=== PATIENT | male | born 1955 | race Caucasian/White ===

== ENCOUNTER 2023-02-06 13:25 | Outpatient (CLI) | payer MEDICARE, SELFPAY ==
[2023-02-06 10:05] LABS: Abs Immature Grans 0.01 10^3/uL (0.0-0.06); Absolute Basophil Count 0.09 10^3/uL (0.0-0.2); Absolute Eosinophil Count 0.47 10^3/uL (0.0-0.7); Absolute Lymphocyte Count 1.53 10^3/uL (1.2-3.4); Absolute Monocyte Count 0.66 10^3/uL (0.1-0.8); Absolute Neutrophil Count 3.76 10^3/uL (1.2-6.7); Basophils % 1.4; Eosinophils % 7.2; HCT 34.2 % (40.0-50.0); HGB 11.4 g/dL (13.5-17.5); Immature Grans % 0.2; Lymphocytes % 23.5; MCH 29.9 pg (27.0-33.0); MCHC 33.3 % (32.0-36.0); MCV 90 fL (80-95); MPV 8.7 fL (8.0-11.0); Monocytes % 10.1; Neutrophils % 57.6; Platelet Count 330 10^3/uL (130-400); RBC 3.81 10^6/uL (4.36-5.78); RDW 13.2 % (11.8-14.1); RDW-SD 43.5 fL; WBC 6.52 10^3/uL (4.4-10.8)
[2023-02-06 10:20] LABS: ALT 17 U/L (16-63); AST 15 U/L (15-37); Albumin 3.1 g/dL (3.4-5.0); Alkaline Phosphatase 73 U/L (46-116); Anion Gap 7.2 mmol/L (3-11); BUN 40 mg/dL (7-18); Bilirubin, Total 0.4 mg/dL (0.2-1.0); CO2 27.8 mmol/L (21.0-32.0); CREATININE 1.8 mg/dL (0.70-1.30); Calcium 9.4 mg/dL (8.5-10.1); Chloride 101 mmol/L (98-107); Estimated GFR 40.49 (mL/min/1.73m2); Glucose 195 mg/dL (74-106); Potassium 3.8 mmol/L (3.5-5.1); Sodium 136 mmol/L (136-145); Total Protein 7.9 g/dL (6.4-8.2)
--- OUTSIDE RECORDS SUMMARY | 2023-02-06 13:28 | XMS_ITS | Continuity of Care Document ---
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 Role Phone NICOLASA FERRELL Primary Care Physician Encounter LTTL_NE FIN NBR [phone] Date(s): 12/20/22 - 12/22/22 [facility] [address] [place] [address]- [place] Encounter Diagnosis Congestive heart failure(Discharge Diagnosis) - 12/20/22 CKD (chronic kidney disease)(Discharge Diagnosis) - 12/20/22 Diabetes(Discharge Diagnosis) - 12/20/22 Adenocarcinoma of prostate(Discharge Diagnosis) - 12/20/22 Urinary tract infection(Discharge Diagnosis) - 12/21/22 Nausea and vomiting(Discharge Diagnosis) - 12/20/22 NSTEMI (non-ST elevated myocardial infarction)(Discharge Diagnosis) - 12/20/22 Discharge Disposition: Home f/u External Provider Attending Physician: Carrie Javier APRN Admitting Physician: Raoul Hernández MD Allergies, Adverse Reactions, Alerts Substance Reaction Severity Status amoxicillin 1 Rash Moderate Active penicillins 2 Unknown Active 1rash as adult 2had allergic reaction to amox as adult. told not to take PCN Assessment and Plan Extracted from: Title:Clinical Document Author:Catrachito Philip MD Date:12/20/22 Patient originally seen by Arianna Morgan. Repeat troponin comes back within increased elevation and significant delta. CT angio comes back negative for pulmonary embolism or other acute abnormality. I discussed the case with [facility] cardiology who recommended heparin and medical management at this time. I spoke with Dr. Hernández and patient was admitted. Patient remains chest pain-free hemodynamically stable with the exception that while sleeping he does sometimes desaturates. Future Appointments Future Scheduled Tests Radiology* US Lower Ext Venous Duplex Right 09/08/22 * CT Abdomen and Pelvis w/ + w/o Contrast 09/26/22 * CT Abdomen and Pelvis w/o Contrast 09/28/22 Functional Status 12/22/22 Home Equipment Blood glucose monito r, Cane 12/22/22 Activity Status ADL Up to chair 12/22/22 Living Environment Living Situation: Current Home Treatments: Home Devices/Equipment Blood glucose monitor, Cane Professional Skilled Services: Special Services and Community Resources: Sensory Deficits: Performed by: Shanell Anderson-12/21/22 12:18:00 Living Situation: Other: disposition unsure until after repeat echo Current Home Treatments: Home Devices/Equipment Professional Skilled Services: Special Services and Community Resources: Sensory Deficits: Performed by: Brenda Becker-12/20/22 14:25:00 Lives In Apartment Lives With Alone Living Situation Home independently Home Barriers None 12/22/22 Personal Care Provided Other: pt indepen dent with Am care. pt set up 12/21/22 Breakfast Percent 25 12/20/22 Family Member Travel History No recent t ravel Recent Travel History No recent travel Other exposure to Infectious Disease Non e Medications abiraterone 500 mg oral tablet 1,000 mg = 2 tab, Oral, Daily, on an empty stomach 1 hour before or 2 hours after eating, # 60 tab,0 Refill(s) Start Date: 11/29/22 Status: Ordered acetaminophen 500 mg oral tablet 1,000 mg = 2 tab, Oral, TID, PRN as needed for pain, 0 Refill(s) Start Date: 12/20/22 Status: Ordered atorvastatin 40 mg oral tablet 40 mg = 1 tab, Oral, Daily, # 30 tab, 0 Refill(s) Start Date: 10/05/22 Status: Ordered Bactrim DS 800 mg-160 mg oral tablet 1 tab, Oral, BID, # 10 tab, 0 Refill(s), Pharmacy: [facility], 177.8, cm, 12/20/22 14:46:00 EDT, Height/Length Dosing, 85.1, kg, 12/20/22 14:46:00 EDT, Weight Dosing Start Date: 12/22/22 Stop Date: 12/27/22 Status: Ordered HYDROcodone-acetaminophen 5 mg-325 mg oral tablet 1 tab, Oral, every 8 hr, PRN as needed for pain, 0 Refill(s) Start Date: 12/20/22 Status: Ordered Lantus Solostar Pen 100 units/mL subcutaneous solution 10 units =, Subcutaneous, Daily, 0 Refill(s) Start Date: 12/29/21 Status: Ordered leuprolide 22.5 mg/3 months intramuscular kit 22.5 mg =, IM, every 3 mo, # 1 kits, 0 Refill(s) Start Date: 12/08/22 Status: Ordered levothyroxine 175 mcg (0.175 mg) oral tablet 175 mcg = 1 tab, Oral, Daily, # 30 tab, 0 Refill(s) Start Date: 12/20/22 Status: Ordered Macular Health Formula oral capsule 2 cap, Oral, Daily, # 60 cap, 0 Refill(s) Start Date: 12/20/22 Status: Ordered MiraLax oral powder for reconstitution 17 g, Oral, BID, PRN constipation, # 527 g, 0 Refill(s), Pharmacy: [facility], 177.8, cm, 12/20/22 14:46:00 EDT, Height/Length Dosing, 85.1, kg, 12/20/22 14:46:00 EDT, Weight Dosing Start Date: 12/22/22 Stop Date: 01/05/23 Status: Ordered predniSONE 5 mg oral delayed release tablet 5 mg = 1 tab, Oral, Daily, # 30 tab, 0 Refill(s) Start Date: 11/29/22 Status: Ordered Vitamin D3 1000 intl units oral tablet 25 mcg = 1 tab, Oral, Daily, # 30 tab, 0 Refill(s) Start Date: 10/05/22 Status: Ordered Mental Status 12/21/22 Eye Opening Response Dayami Spontaneous ly Best Verbal Response Dayami Oriented Best Motor Response [place] Obeys comman ds [place] Coma Score 15 Problem List Condition Confirmation Course Effective Dates Status Health Status Informant Adenocarcinoma of prostate Confirmed Active Adenoma of colon Confirmed Active CKD (chronic kidney disease) Confirmed Active Congestive heart failure Confirmed Active Diabetes Confirmed Active Gout Confirmed Active Hypercholesterolemia Confirmed Active High blood pressure Confirmed Active Procedures Procedure Date Related Diagnosis Body Site Status Stent placement 09/28/22 Completed Results Laboratory List Name Date Glucose POCT 12/22/22 Glucose POCT 12/22/22 Automated Diff 12/22/22 Glucose POCT 12/22/22 Basic Metabolic Panel (BMP) 12/22/22 CBC w/ Diff 12/22/22 Automated Diff 12/21/22 Basic Metabolic Panel (BMP) 12/21/22 CBC w/ Diff 12/21/22 Troponin-I High Sensitivity 12/20/22 Urinalysis Microscopic 12/20/22 Urinalysis with Micro if Indicated and C ulture if Indicated 12/20/22 Respiratory Panel 2.1 (BioFire) 12/20/22 Troponin-I High Sensitivity (High Sensit ivityTroponin-I) 12/20/22 CBC w/ Diff 12/20/22 Comprehensive Metabolic Panel (CMP) 12/04 09/25 Lactic Acid 12/20/22 Lipase Level 12/20/22 Magnesium Level 12/20/22 PT/ INR 12/20/22 PTT 12/20/22 Troponin-I High Sensitivity (High Sensit ivityTroponin-I) 12/20/22 Automated Diff 12/20/22 SARS-CoV-2 (Covid-19) AG (Nati) POCT Most recent to oldest [Reference Range]: 1 2 3 WBC [4.8-10.8 K/mcL] 7.2 K/mcL (12/22/22 6:29 AM) 6.2 K/mcL (12/21/22 4:30 AM) 8.4 K/mcL (12/20/22 8:24 AM) RBC [4.70-6.10 Million/mcL] 3.10 Million /mcL *LOW* (12/22/22 6:29 AM) RBC [4.20-6.10 Million/mcL] 3.07 Million /mcL *LOW* (12/21/22 4:30 AM) 3.60 Million/mcL *LOW* (12/20/22 8:24 AM) Neutro Auto [42.2-75.2 %] 69.5 % (12/22/22 6:29 AM) 65.8 % (12/21/22 4:30 AM) 78.7 % *HI* (12/20/22 8:24 AM) Lymph Auto [20.5-51.1 %] 14.5 % *LOW* (12/22/22 6:29 AM) 14.5 % *LOW* (12/21/22 4:30 AM) 7.9 % *LOW* (12/20/22 8:24 AM) [place] Auto [1.7-9.3 %] 14.1 % *HI* (12/22/22 6:29 AM) 18.0 % *HI* (12/21/22 4:30 AM) 12.6 % *HI* (12/20/22 8:24 AM) Basophil Auto [0.0-0.8 %] 0.4 % (12/22/22 6:29 AM) 0.7 % (12/21/22 4:30 AM) 0.2 % (12/20/22 8:24 AM) Prothrombin Time [9.1-10.6 seconds] 12.3 seconds *HI* (12/20/22 8:24 AM) INR [0.9-1.1] 1.2 1 *HI* (12/20/22 8:24 AM) BUN [8-26 mg/dL] 36 mg/dL *HI* (12/22/22 6:29 AM) 36 mg/dL *HI* (12/21/22 4:30 AM) 40 mg/dL *HI* (12/20/22 8:24 AM) Glucose POC 194 *NA* (12/22/22 1:43 PM) 137 *NA* (12/22/22 9:11 AM) 137 *NA* (12/22/22 7:19 AM) UA Color [Yellow] Yellow (12/20/22 12:06 PM) UA WBC [0-3] 10-25 *ABN* (12/20/22 12:06 PM) Glucose Level [74-106 mg/dL] 145 mg/dL *HI* (12/22/22 6:29 AM) 133 mg/dL *HI* (12/21/22 4:30 AM) 167 mg/dL *HI* (12/20/22 8:24 AM) Potassium Level [3.5-5.1 mmol/L] 3.5 mmol/L (12/22/22 6:29 AM) 3.6 mmol/L (12/21/22 4:30 AM) 3.7 mmol/L (12/20/22 8:24 AM) Baso Absolute [0.0-0.2 K/mcL] 0.0 K/mcL (12/22/22 6:29 AM) 0.0 K/mcL (12/21/22 4:30 AM) 0.0 K/mcL (12/20/22 8:24 AM) MCV [80.0-94.0 fL] 89.4 fL (12/22/22 6:29 AM) 91.9 fL (12/21/22 4:30 AM) 89.4 fL (12/20/22 8:24 AM) UA Urobilinogen [0.2] 0.2 (12/20/22 12:06 PM) UA Bili [Negative] Negative (12/20/22 12:06 PM) UA Ketones [Negative] Negative (12/20/22 12:06 PM) AST [15-41 IntlUnit/L] 29 IntlUnit/L (12/20/22 8:24 AM) ALT [17-63 IntlUnit/L] 14 IntlUnit/L *LOW* (12/20/22 8:24 AM) MCHC [32.0-37.0 g/dL] 32.9 g/dL (12/22/22 6:29 AM) MCHC [32.0-36.0 g/dL] 32.6 g/dL (12/21/22 4:30 AM) 33.2 g/dL (12/20/22 8:24 AM) Osmolality [275-295 mOsm/kg] 275 mOsm/kg (12/22/22 6:29 AM) 278 mOsm/kg (12/21/22 4:30 AM) 276 mOsm/kg (12/20/22 8:24 AM) Sodium Level [134-143 mmol/L] 132 mmol/L *LOW* (12/22/22 6:29 AM) 134 mmol/L (12/21/22 4:30 AM) 131 mmol/L *LOW* (12/20/22 8:24 AM) UA RBC [0-3] 4-6 *ABN* (12/20/22 12:06 PM) UA Leuk Est [Negative] Small *ABN* (12/20/22 12:06 PM) Lymph Absolute [1.2-3.4 K/mcL] 1.0 K/mcL *LOW* (12/22/22 6:29 AM) 0.9 K/mcL *LOW* (12/21/22 4:30 AM) 0.7 K/mcL *LOW* (12/20/22 8:24 AM) UA Nitrite [Negative] Positive *ABN* (12/20/22 12:06 PM) UA Glucose [Negative] Negative (12/20/22 12:06 PM) Hct [42.0-52.0 %] 27.7 % *LOW* (12/22/22 6:29 AM) 28.2 % *LOW* (12/21/22 4:30 AM) 32.2 % *LOW* (12/20/22 8:24 AM) UA Bacteria [None Seen] 1+ *ABN* (12/20/22 12:06 PM) Lipase Level [18-51 unit/L] 37 unit/L 2 (12/20/22 8:24 AM) Partial Thromboplastin Time [21.3-28.4 seconds] 28.2 seconds (12/20/22 8:24 AM) Calcium Level [8.9-10.3 mg/dL] 7.9 mg/dL *LOW* (12/22/22 6:29 AM) 8.0 mg/dL *LOW* (12/21/22 4:30 AM) 8.7 mg/dL *LOW* (12/20/22 8:24 AM) [place] Absolute [0.1-0.6 K/mcL] 1.0 K/mcL *HI* (12/22/22 6:29 AM) 1.1 K/mcL *HI* (12/21/22 4:30 AM) 1.1 K/mcL *HI* (12/20/22 8:24 AM) Albumin Level [3.5-5.0 g/dL] 3.1 g/dL *LOW* (12/20/22 8:24 AM) Protein Total [6.5-8.1 g/dL] 7.5 g/dL (12/20/22 8:24 AM) UA Protein [Negative] 30 *ABN* (12/20/22 12:06 PM) MCH [27.0-31.0 pg] 29.4 pg (12/22/22 6:29 AM) 30.0 pg (12/21/22 4:30 AM) 29.7 pg (12/20/22 8:24 AM) Magnesium Level [1.8-2.5 mg/dL] 1.9 mg/dL (12/20/22 8:24 AM) Neutro Absolute [1.4-6.5 K/mcL] 5.0 K/mcL (12/22/22 6:29 AM) 4.0 K/mcL (12/21/22 4:30 AM) 6.6 K/mcL *HI* (12/20/22 8:24 AM) Bilirubin Total [0.2-1.2 mg/dL] 1.1 mg/dL (12/20/22 8:24 AM) Hgb [14.0-18.0 g/dL] 9.1 g/dL *LOW* (12/22/22:29 AM) 9.2 g/dL *LOW* (12/21/22:30 AM) 10.7 g/dL *LOW* (12/20/22 8:24 AM) Alk Phos [38-130 IntlUnit/L] 57 IntlUnit /L (12/20/22 8:24 AM) UA Blood [Negative] Moderate *ABN* (12/20/22 12:06 PM) MPV [7.4-10.4 fL] 9.7 fL (12/22/22 6:29 AM) 9.9 fL (12/21/22 4:30 AM) 10.1 fL (12/20/22 8:24 AM) UA Spec Grav [1.001-1.030] <=1.005 *NA* (12/20/22 12:06 PM) Platelets [130-400 K/mcL] 204 K/mcL (12/22/22 6:29 AM) 197 K/mcL (12/21/22 4:30 AM) 252 K/mcL (12/20/22 8:24 AM) CO2 [22-32 mmol/L] 21 mmol/L *LOW* (12/22/22:29 AM) 23 mmol/L (12/21/22 4:30 AM) 22 mmol/L (12/20/22 8:24 AM) Eos Absolute [0.0-0.2 K/mcL] 0.1 K/mcL (12/22/22 6:29 AM) 0.0 K/mcL (12/21/22 4:30 AM) 0.0 K/mcL (12/20/22 8:24 AM) Lactic Acid Lvl [0.5-2.2 mmol/L] 1.5 mmol/L (12/20/22 8:24 AM) UA Squam Epithelial [0-3] 0-3 (12/20/22 12:06 PM) UA pH [5.00-9.00] 6.00 (12/20/22 12:06 PM) UA Appear [Clear] Clear (12/20/22 12:06 PM) Chloride Level [98-111 mmol/L] 103 mmol/L (12/22/22 6:29 AM) 105 mmol/L (12/21/22 4:30 AM) 98 mmol/L (12/20/22 8:24 AM) RDW-CV [11.5-14.5 %] 15.2 % *HI* (12/22/22 6:29 AM) 15.4 % *HI* (12/21/22 4:30 AM) 14.9 % *HI* (12/20/22 8:24 AM) Adenovirus RespP-BFire [Not Detected] Not Detected (12/20/22 11:09 AM) Bordetella parapertussis RespP-BFire [Not Detected] Not Detected (12/20/22 11:09 AM) Bordetella pertussis RespP-BFire [Not Detected] Not Detected (12/20/22 11:09 AM) Chlamydophila pneumoniae RespP-BFire [Not Detected] Not Detected (12/20/22 11:09 AM) Coronavirus 229E (Not COVID-19) RP-BFire [Not Detected] Not Detected (12/20/22 11:09 AM) Coronavirus HKU1 (Not COVID-19) RP-BFire [Not Detected] Not Detected (12/20/22 11:09 AM) Coronavirus NL63 (Not COVID-19) RP-BFire [Not Detected] Not Detected (12/20/22 11:09 AM) Coronavirus OC43 (Not COVID-19) RP-BFire [Not Detected] Not Detected (12/20/22 11:09 AM) Human Metapneumonovirus RespP-BFire [Not Detected] Not Detected (12/20/22 11:09 AM) Human Rhinovirus/Enterovirus RespP-BFir [Not Detected] Not Detected (12/20/22 11:09 AM) Influenza A RespP-BFire [Not Detected] Not Detected (12/20/22 11:09 AM) Influenza B RespP-BFire [Not Detected] Not Detected (12/20/22 11:09 AM) Mycomplasma pneumoniae RespP-BFire [Not Detected] Not Detected (12/20/22 11:09 AM) Parainfluenza Virus 1 RespP-BFire [Not Detected] Not Detected (12/20/22 11:09 AM) Parainfluenza Virus 2 RespP-BFire [Not Detected] Not Detected (12/20/22 11:09 AM) Parainfluenza Virus 3 RespP-BFire [Not Detected] Not Detected (12/20/22 11:09 AM) Parainfluenza Virus 4 RespP-BFire [Not Detected] Not Detected (12/20/22 11:09 AM) Respiratory Syncytial Virus RespP-BFire [Not Detected] Not Detected (12/20/22 11:09 AM) A/G Ratio [1.0-2.5 g/dL] 0.7 g/dL *LOW* (12/20/22 8:24 AM) BUN/Creat Ratio [8.0-20.0] 19.9 (12/22/22 6:29 AM) 17.2 (12/21/22 4:30 AM) 20.5 *HI* (12/20/22 8:24 AM) Globulin [2.3-3.5 g/dL] 4.4 g/dL *HI* (12/20/22 8:24 AM) Imm Gran Absolute [0.00-0.02 K/mcL] 0.03 K/mcL *HI* (12/22/22 6:29 AM) 0.02 K/mcL (12/21/22 4:30 AM) 0.03 K/mcL *HI* (12/20/22 8:24 AM) Imm Gran Auto [0.0-0.5 %] 0.4 % (12/22/22 6:29 AM) 0.3 % (12/21/22 4:30 AM) 0.4 % (12/20/22 8:24 AM) Slide Review Not Indicated (12/22/22 6:29 AM) Not Indicated (12/20/22 8:24 AM) UA Culture Ind?. [No] Yes (12/20/22 12:06 PM) Urine Srce Clean Catch (12/20/22 12:06 PM) Creatinine Level [0.61-1.24 mg/dL] 1.81 mg/dL *HI* (12/22/22 6:29 AM) 2.09 mg/dL *HI* (12/21/22 4:30 AM) 1.95 mg/dL *HI* (12/20/22 8:24 AM) SARS-CoV-2 (COVID-19) RP-BFire [Not Detected] Not Detected (12/20/22 11:09 AM) SARS-CoV or CoV-2 (COVID-19) Ag (Nati) [Negative] Negative (12/20/22 6:57 AM) Employed in healthcare? No *NA* (12/20/22 11:09 AM) Unknown *NA* (12/20/22 6:57 AM) Symptomatic as defined by CDC? No *NA* (12/20/22 11:09 AM) Unknown *NA* (12/20/22 6:57 AM) Date of onset (Lab) Unknown *NA* (12/20/22 6:57 AM) Hospitalized due to COVID-19? No *NA* (12/20/22 11:09 AM) Unknown *NA* (12/20/22 6:57 AM) In ICU? No *NA* (12/20/22 11:09 AM) Unknown *NA* (12/20/22 6:57 AM) Group care resident? No *NA* (12/20/22 11:09 AM) Unknown *NA* (12/20/22 6:57 AM) status? Not *NA* (12/20/22 11:09 AM) Unknown *NA* (12/20/22 6:57 AM) Troponin-I HS [<=20 ng/L] 149 ng/L 3, 4 *CRIT* (12/20/22 2:50 PM) 159 ng/L 5, 6 *CRIT* (12/20/22 9:53 AM) 141 ng/L 7, 8 *CRIT* (12/20/22 8:24 AM) Anion Gap [3.0-12.0] 8.0 (12/22/22 6:29 AM) 6.0 (12/21/22 4:30 AM) 11.0 (12/20/22 8:24 AM) Eos, Auto [0.00-3.00 %] 1.10 % (12/22/22 6:29 AM) 0.70 % (12/21/22 4:30 AM) 0.20 % (12/20/22 8:24 AM) eGFR CKD-EPI [>=60 mL/min/1.73 m2] 40 mL/min/1.73 m2 *LOW* (12/22/22 6:29 AM) 34 mL/min/1.73 m2 *LOW* (12/21/22 4:30 AM) 37 mL/min/1.73 m2 *LOW* (12/20/22 8:24 AM) 1Interpretive Data: THERAPEUTIC INR RANGES FOR WARFARIN Uncomplicated venous thromboembolic disease 2-3 Lupus Anticoagulant and recurrent thrombosis 3-3.5 Mechanical prosthetic valve or recurrent thrombosis 2.5-3.5 2Interpretive Data: F-cbxpkh-n-benzoquinone imine (meabolite of Acetaminophen) will generate erroneously low lipase results in samples for patients that have taken toxic doses of acetaminophen. 3Result Comment: Called and read back by Nemo Hodge at 12/20/2022 15:25:48 EDT 4Interpretive Data: The Axel ACCESS high-sensitivity Troponin I (hsTNI) 99 percentile cutoffs forhealthy adults are 12 ng/L or less for females and 20 ng/L or less for males. SERIAL MEASUREMENT IS HIGHLY RECOMMENDED for the diagnosis or exclusion of Acute Coronary Syndromes(ACS). Please refer to the High-Sensitivity Troponin Algorithm 2022 for guidance. As with all markers of cardiac injury, elevations of hsTnI do not in and of themselves indicate thepresence of an ischemic mechanism. Many other disease states can be associated with elevations via mechanisms different from those that cause injury in patients with ACS. These include trauma (contusion, ablation, pacing); congestive heart failure; pulmonary embolism; kidney failure; and myocarditis. Clinical judgement is necessary to distinguish patients who have ischemic heart disease from those who do not. 5Result Comment: Called mabel white rn read back by [facility] at 12/20/2022 11:06:03 EDT Results verified by repeat analysis. 6Interpretive Data: The Axel ACCESS high-sensitivity Troponin I (hsTNI) 99 percentile cutoffs forhealthy adults are 12 ng/L or less for females and 20 ng/L or less for males. SERIAL MEASUREMENT IS HIGHLY RECOMMENDED for the diagnosis or exclusion of Acute Coronary Syndromes(ACS). Please refer to the High-Sensitivity Troponin Algorithm 2022 for guidance. As with all markers of cardiac injury, elevations of hsTnI do not in and of themselves indicate thepresence of an ischemic mechanism. Many other disease states can be associated with elevations via mechanisms different from those that cause injury in patients with ACS. These include trauma (contusion, ablation, pacing); congestive heart failure; pulmonary embolism; kidney failure; and myocarditis. Clinical judgement is necessary to distinguish patients who have ischemic heart disease from those who do not. 7Result Comment: Called & read back by Emilie Harkins RN at 12/20/2022 09:29:41 EDT Results verified by repeat analysis. 8Interpretive Data: The Axel ACCESS high-sensitivity Troponin I (hsTNI) 99 percentile cutoffs forhealthy adults are 12 ng/L or less for females and 20 ng/L or less for males. SERIAL MEASUREMENT IS HIGHLY RECOMMENDED for the diagnosis or exclusion of Acute Coronary Syndromes(ACS). Please refer to the High-Sensitivity Troponin Algorithm 2022 for guidance. As with all markers of cardiac injury, elevations of hsTnI do not in and of themselves indicate thepresence of an ischemic mechanism. Many other disease states can be associated with elevations via mechanisms different from those that cause injury in patients with ACS. These include trauma (contusion, ablation, pacing); congestive heart failure; pulmonary embolism; kidney failure; and myocarditis. Clinical judgement is necessary to distinguish patients who have ischemic heart disease from those who do not. Orders for Microbiology Reports Name Date Urine Culture 12/20/22 Microbiology Reports TEST:Urine Culture STATUS:Auth (Verified) BODY SITE: SOURCE:Urine, Clean Catch COLLECTED DATE/TIME:12/20/22 12:06 PM FINAL REPORT >100,000 cfu/ml Staphylococcus epidermidis ORGANISM:Staphylococcus epidermidis Susceptibilty: Staphylococcus epidermidis Tested Drug JUAN A Dilution JUAN A Interpretati on Vancomycin 1 S Trimethoprim/Sulfa <=10 S Oxacillin >=4 R Nitrofurantoin <=16 S Linezolid 1 S Doxycycline 1 S Radiology Reports * Exam Date Time Procedure Performing Provider Status 12/20/22 10:[address] Angio Chest Mahi Barnes; Matt ( Verified) Notes: (CT Angio Chest) Reason For Exam: sob, +trop, hx ca; ?pe CT Angio Chest EXAM DESCRIPTION: CT Angio Chest 12/20/2022 INDICATION: SOB, +TROP, HX CA; ?PE TECHNIQUE: All CT scans at this facility use at least one of these dose optimization techniques: Automated exposure control; mA and/or kV adjustment per patient size (includes targeted exams where dose is matched to clinical indication); or iterative reconstruction. CT angiography examination of the chest with thin section axial images including sagittal and coronal MPR images performed on a separate workstation under concurrent supervision. 65 mL of Isovue 370 contrast was utilized COMPARISON: None FINDINGS: Normal opacification of the right ventricular outflow tract, main pulmonary arteries and segmental pulmonary arteries with no evidence of pulmonary embolism. No evidence of thoracic aortic dissection. Patchy areas of ground-glass attenuation infiltrate involving both lower lobes as well as the posterior aspect of both upper lobes of uncertain chronicity. Findings may reflect chronic interstitial lung disease although interstitial pneumonitis can not be excluded. No focal consolidation or pulmonary mass. No central endobronchial filling defect identified. Mild bilateral pleural effusions. No pneumothorax. Mildly prominent mediastinal lymph nodes in the right para-aortic region, prevascular space and subcarinal regions measuring up to 10 mm in short axis dimension. Mild bilateral hilar adenopathy. No axillary adenopathy. No pericardial effusion. Normal caliber thoracic aorta. Scattered sclerotic lesions in the visualized spinal axis suspicious for metastatic disease. IMPRESSION: No evidence of pulmonary embolism Patchy nonspecific areas of ground-glass attenuation infiltrate bilaterally most pronounced in the lower lobe distribution of uncertain chronicity. Findings may reflect chronic interstitial lung disease or interstitial pneumonitis Mild bilateral pleural effusions Mediastinal and bilateral hilar adenopathy as detailed above. Small sclerotic lesions in the visualized spinal axis suspicious for metastatic disease. JOB #: [id number] Final Signed by: Jose Angel Shin MD Signed (Electronic Signature): 12/20/2022 10:58 am * Exam Date Time Procedure Performing Provider Status 12/20/22 9:16 AM XR Chest 2 Views Kasia Castro; Auth ( Verified) Notes: (XR Chest 2 Views) Reason For Exam: hypoxia XR Chest 2 Views EXAM DESCRIPTION: XR Chest 2 Views 12/20/2022 INDICATION: HYPOXIA COMPARISON: None FINDINGS: Clear lungs with no focal infiltrate or pulmonary edema. Normal cardiomediastinal contour. Normal pleural margins with no pleural effusion or pneumothorax. Mild spondylotic changes of the dorsal spine. IMPRESSION: No active chest disease. JOB #: [id number] Final Signed by: Jose Angel Shin MD Signed (Electronic Signature): 12/20/2022 9:36 am * Exam Date Time Procedure Performing Provider Status 12/20/22 8:[address] Abdomen and Pelvi s w/o Contrast Miguel A Varghese; Matt (Verified) Notes: (CT Abdomen and Pelvis w/o Contrast) Reason For Exam: abd pain, n/v, hx prostate ca; ? stent obstruction CT Abdomen and Pelvis w/o Contrast EXAM DESCRIPTION: CT Abdomen and Pelvis w/o Contrast 12/20/2022 INDICATION: ABD PAIN, N/V, HX PROSTATE CA; ? STENT OBSTRUCTION TECHNIQUE: All CT scans at this facility use at least one of these dose optimization techniques: Automated exposure control; mA and/or kV adjustment per patient size (includes targeted exams where dose is matched to clinical indication); or iterative reconstruction. Technique: Axial CT images of the abdomen/pelvis without IV contrast administration COMPARISON: 10/05/2022 FINDINGS: Visualized portions of the liver, spleen, pancreas and adrenal glands demonstrate a normal unenhanced CT appearance. No calcified gallstones in the gallbladder. Bilateral ureteral stents in stable satisfactory position. Mild bilateral hydronephrosis without significant change. No renal calculi on either side. Scattered low-attenuation renal lesions bilaterally likely reflecting cysts which were seen previously. Normal caliber abdominal aorta. Retroperitoneal adenopathy in the left para-aortic and paracaval regions which appears improved. Adenopathy in the left iliac chain region surrounding portions of the left ureteral stent, slightly improved. The prostate gland is mildly enlarged with indentation of the bladder base. No bowel dilatation to suggest obstruction or ileus. No ascites or free intraperitoneal air. Normal appendix. Mild subsegmental atelectasis or scarring in both lung bases. Sclerotic lesions involving the pelvis, sacrum and visualized spinal axis suspicious for metastatic disease IMPRESSION: Bilateral ureteral stents in stable satisfactory position. Mild bilateral hydronephrosis without significant change. Nonobstructive bowel pattern. No free air or bowel inflammatory changes. Normal appendix Retroperitoneal adenopathy as described above, slightly improved since prior study. Scattered sclerotic osseous lesions suspicious for metastatic disease, many of which appear new since prior study. Additional nonacute findings as detailed above. JOB #: [id number] Final Signed by: Jose Angel Shin MD Signed (Electronic Signature): 12/20/2022 9:16 am Vital Signs Most recent to oldest [Reference Range]: 1 2 3 Temperature Oral [35.8-37.3 Deg C] 37.0 Deg C (12/22/22 7:05 AM) 37.6 Deg C *HI* (12/22/22 2:37 AM) 37.2 Deg C (12/22/22 12:26 AM) Temperature Tympanic [36.6-37.9 Deg C] 37.0 Deg C (12/20/22 7:31 AM) Temperature Temporal Artery [36-38 Deg C] 36.4 Deg C (12/22/22 11:04 AM) 36.9 Deg C (12/21/22 7:33 PM) 36.7 Deg C (12/21/22 4:09 PM) Temperature Temporal Artery (DegF) [97.3-100 Deg F] 98.78 Deg F (12/21/22 10:30 AM) Peripheral Pulse Rate [60-100 bpm] 61 bpm (12/22/22 11:04 AM) 67 bpm (12/22/22 7:05 AM) 70 bpm (12/22/22 2:37 AM) Heart Rate Monitored [60-100 bpm] 72 bpm (12/21/22 1:00 AM) 77 bpm (12/21/22 12:00 AM) 87 bpm (12/20/22 11:00 PM) Respiratory Rate [12-24 br/min] 18 br/min (12/22/22 11:04 AM) 16 br/min (12/22/22 7:05 AM) 18 br/min (12/22/22 2:37 AM) Blood Pressure [90-140/60-90 mmHg] 118/67mmHg (12/22/22 11:04 AM) 124/72mmHg (12/22/22 7:05 AM) 135/78mmHg (12/22/22 2:37 AM) Mean Arterial Pressure, Cuff [65-140 mmHg] 99 mmHg (12/21/22 10:30 AM) 66 mmHg (12/21/22 1:00 AM) 72 mmHg (12/21/22 12:00 AM) Mean Arterial Pressure Cuff 64 mmHg (12/21/22 1:00 AM) 69 mmHg (12/21/22 12:00 AM) 87 mmHg (12/20/22 8:00 PM) Blood Pressure Location Right arm (12/22/22 2:37 AM) Right arm (12/22/22 12:26 AM) Right arm (12/21/22 12:00 AM) Blood Pressure Method Automatic (12/22/22 2:37 AM) Automatic (12/22/22 12:26 AM) Automatic (12/21/22 7:33 PM) Weight 85.100 kg (12/22/22 3:23 PM) 85.100 kg (12/20/22 2:45 PM) 85.100 kg (12/20/22 2:25 PM) Weight Dosing 85.100 kg (12/22/22 3:23 PM) 85.100 kg (12/20/22 2:45 PM) 85.100 kg (12/20/22 2:25 PM) Height 177.800 cm (12/22/22 3:23 PM) 177.800 cm (12/20/22 2:45 PM) 177.800 cm (12/20/22 2:25 PM) Height/Length Dosing 177.800 cm (12/22/22 3:23 PM) 177.800 cm (12/20/22 2:45 PM) 177.800 cm (12/20/22 2:25 PM) Body Mass Index 26.920 kg/m2 (12/22/22 3:23 PM) 26.920 kg/m2 (12/20/22 2:45 PM) 26.920 kg/m2 (12/20/22 2:25 PM) Social History Social History Type Response Tobacco Never tobacco user T obacco Use:. Sex Hospital Discharge Instructions Patient Education 12/22/2022 11:58:20 Nausea and Vomiting, Adult Nausea and Vomiting, Adult Nausea is the feeling that you have an upset stomach or that you are about to vomit. As nausea getsworse, it can lead to vomiting. Vomiting is when stomach contents forcefully come out of your mouthas a result of nausea. Vomiting can make you feel weak and cause you to become dehydrated. Dehydration can make you feel tired and thirsty, cause you to have a dry mouth, and decrease how often you urinate. Older adults and people with other diseases or a weak disease-fighting system (immune system) are at higher risk for dehydration. It is important to treat your nausea and vomiting as told by your health care provider. Follow these instructions at home: Watch your symptoms for any changes. Tell your health care provider about them. Eating and drinking ??? Take an oral rehydration solution (ORS). This is a drink that is sold at pharmacies and retail stores. ??? Drink clear fluids slowly and in small amounts as you are able. Clear fluids include water, icechips, low-calorie sports drinks, and fruit juice that has water added (diluted fruit juice). ??? Eat bland, rcdl-su-kqmutr foods in small amounts as you are able. These foods include bananas, applesauce, rice, lean meats, toast, and crackers. ??? Avoid fluids that contain a lot of sugar or caffeine, such as energy drinks, sports drinks, andsoda. ??? Avoid alcohol. ??? Avoid spicy or fatty foods. General instructions ??? Take poui-dah-rwdcwhv and prescription medicines only as told by your health care provider. ??? Drink enough fluid to keep your urine pale yellow. ??? Wash your hands often using soap and water for at least 20 seconds. If soap and water are not available, use hand nut steamer. ??? Make sure that everyone in your household washes their hands well and often. ??? Rest at home while you recover. ??? Watch your condition for any changes. ??? Take slow and deep breaths when you feel nauseous. ??? Keep all follow-up visits. This is important. Contact a health care provider if: ??? Your symptoms get worse. ??? You have new symptoms. ??? You have a fever. ??? You cannot drink fluids without vomiting. ??? Your nausea does not go away after 2 days. ??? You feel light-headed or dizzy. ??? You have a headache. ??? You have muscle cramps. ??? You have a rash. ??? You have pain while urinating. Get help right away if: ??? You have pain in your chest, neck, arm, or jaw. ??? You feel extremely weak or you faint. ??? You have persistent vomiting. ??? You have vomit that is bright red or looks like black coffee grounds. ??? You have bloody or black stools (feces) or stools that look like tar. ??? You have a severe headache, a stiff neck, or both. ??? You have severe pain, cramping, or bloating in your abdomen. ??? You have difficulty breathing, or you are breathing very quickly. ??? Your heart is beating very quickly. ??? Your skin feels cold and clammy. ??? You feel confused. ??? You have signs of dehydration, such as: ??? Dark urine, very little urine, or no urine. ??? Cracked lips. ??? Dry mouth. ??? Sunken eyes. ??? Sleepiness. ??? Weakness. These symptoms may be an emergency. Get help right away. Call 911. ??? Do not wait to see if the symptoms will go away. ??? Do not drive yourself to the hospital. Summary ??? Nausea is the feeling that you have an upset stomach or that you are about to vomit. As nausea gets worse, it can lead to vomiting. Vomiting can make you feel weak and cause you to become dehydrated. ??? Follow instructions from your health care provider about eating and drinking to prevent dehydration. ??? Take grnb-rlk-grwxxno and prescription medicines only as told by your health care provider. ??? Contact your health care provider if your symptoms get worse, or you have new symptoms. ??? Keep all follow-up visits. This is important. This information is not intended to replace advice given to you by your health care provider. Make sure you discuss any questions you have with your health care provider. Document Revised: 08/27/2021 Document Reviewed: 08/27/2021 Elsevier Patient Education ?? 2022 [employer] Follow Up Care 12/20/2022 07:30:58 With:NICOLASA FERRELL Address: [address] [place], [place] [id number]- When:1 month Comments:Follow up with Nicolasa MOLINA at [facility] on Monday, January 23, 2023 @ 8 a.m. Please plan to arrive by 7:45 a.m. Pharmacology Note * Shailesh Park: PERFORM Event Display: Pharmacy Note Authored Date: [id number] med hx via SS review, review of pts meds, and pt interview. pt appears good hx. no longer taking lisinopril, allopurinol, or metformin.. pt was having urination issues so started taking an older script for flomax , but has found no relief so will not be continuing. Discharge instructions * Brisa Floyd: PERFORM Event Display: Discharge Instructions Authored Date: [id number] ROSARIO MOSHER :1955 Age:67 years Sex:Male Visit Date:12/20/2022 Primary Care Physician: NICOLASA FERRELL Hospital Discharge Instructions We would like to thank you for allowing us to assist you with your healthcare needs. The following includes patient education materials and information regarding your injury/illness. Your Next Steps Scheduled Future Appointments Monday 12:00 PM EDT ?? Follow Up Appointments Follow Up with??NICOLASA FERRELL When:??Within 1 month Why: Follow up with Nicolasa MOLINA at [facility] on Monday, January 23, 2023 @ 8 a.m. Please plan to arrive by 7:45 a.m. [address]: [address] [place] [address] Medications What How Much When Why Instructions Next Dose New polyethylene glycol 3350 (MiraLax oral powder forreconstitution) 17 Gram Oral (given by mouth) 2 times a day as needed for constipation Duration: 14 Days Pickup at [facility] New sulfamethoxazole-trimethoprim (Bactrim DS 800 mg-160 mg oral tablet) 1 tab Oral (given by mouth) 2 times a day Nausea and vomiting NSTEMI (non-ST elevated myocardial infarction) Urinary tract infection Congestive heart failure CKD (chronic kidney disease) Diabetes Adenocarcinoma of prostate Duration: 5 Days Pickup at [facility] Unchanged abiraterone (abiraterone 500 mg oral tablet) 2 tab Oral (given by mouth) Every day on an empty stomach 1 hour before or 2 hours after eating ?? Unchanged acetaminophen (acetaminophen 500 mg oral tablet) 2 tab Oral (given by mouth) 3 times a day as needed for as needed for pain Unchanged atorvastatin (atorvastatin 40 mg oral tablet) 1 tab Oral (given by mouth) Every day Unchanged cholecalciferol (Vitamin D3 1000 intl units oral tablet) 1 tab Oral (given by mouth) Every day Unchanged HYDROcodone-acetaminophen (HYDROcodone-acetaminophen 5 mg-325 mg oral tablet) 1 tab Oral (given by mouth) Every 8 hours as needed for as needed for pain Unchanged insulin glargine (Lantus Solostar Pen 100 units/ mL subcutaneous solution) 10 Units Subcutaneous (under the skin) Every day Unchanged leuprolide (leuprolide 22.5 mg/ 3 months intramuscular kit) 22.5 Milligrams Intramuscular (in a muscle) Every 3 months Unchanged levothyroxine (levothyroxine 175 mcg (0.175 mg) oral tablet) 1 tab Oral (given by mouth) Every day Unchanged multivitamin with minerals (Macular Health Formula oral capsule) 2 Capsules Oral (given by mouth) Every day Unchanged predniSONE (predniSONE 5 mg oral delayed release tablet) 1 tab Oral (given by mouth) Every day Pharmacy Information [facility]: [address] [place] [address] [phone] Your Summary Your Care Team Admitting Physician - Raoul Hernández MD Attending Physician - Carrie Javier APRN Primary Care Physician - NICOLASA FERRELL Your Diagnosis Nausea and vomiting NSTEMI (non-ST elevated myocardial infarction) Urinary tract infection Congestive heart failure CKD (chronic kidney disease) Diabetes Adenocarcinoma of prostate Problems Ongoing - Any problem that you are currently receiving treatment for. Adenocarcinoma of prostate Adenoma of colon CKD (chronic kidney disease) Congestive heart failure Diabetes Gout High blood pressure Hypercholesterolemia Tests Performed/Pending Automated Diff BMP CBC w/ Diff CMP Glucose POCT High SensitivityTroponin-I Lactic Acid Lipase Level Magnesium Level PT/ INR PTT Respiratory Panel 2.1 ([employer]) SARS-CoV-2 (Covid-19) AG (Nati) POCT Troponin-I High Sensitivity Urinalysis Microscopic Urinalysis with Micro if Indicated and Culture if Indicated CT Abdomen and Pelvis w/o Contrast CT Angio Chest XR Chest 2 Views Discharge Vitals Temperature??(Temporal Artery) 97.5 ??F (36.4 ??C) Heart Rate??(Peripheral) 61 Respiratory Rate?? 18 Blood Pressure?? 118/67?? Allergies amoxicillin??(Rash) penicillins Education Materials Nausea and Vomiting, Adult Nausea is the feeling that you have an upset stomach or that you are about to vomit. As nausea getsworse, it can lead to vomiting. Vomiting is when stomach contents forcefully come out of your mouthas a result of nausea. Vomiting can make you feel weak and cause you to become dehydrated. Dehydration can make you feel tired and thirsty, cause you to have a dry mouth, and decrease how often you urinate. Older adults and people with other diseases or a weak disease-fighting system (immune system) are at higher risk for dehydration. It is important to treat your nausea and vomiting as told by your health care provider. Follow these instructions at home: Watch your symptoms for any changes. Tell your health care provider about them. Eating and drinking ? Take an oral rehydration solution (ORS). This is a drink that is sold at pharmacies and retail stores. ? Drink clear fluids slowly and in small amounts as you are able. Clear fluids include water, ice chips, low-calorie sports drinks, and fruit juice that has water added (diluted fruit juice). ? Eat bland, pcty-nd-icllgm foods in small amounts as you are able. These foods include bananas, applesauce, rice, lean meats, toast, and crackers. ? Avoid fluids that contain a lot of sugar or caffeine, such as energy drinks, sports drinks, and soda. ? Avoid alcohol. ? Avoid spicy or fatty foods. General instructions ? Take vzgg-zea-vdkvvww and prescription medicines only as told by your health care provider. ? Drink enough fluid to keep your urine pale yellow. ? Wash your hands often using soap and water for at least 20 seconds. If soap and water are not available, use hand nut steamer. ? Make sure that everyone in your household washes their hands well and often. ? Rest at home while you recover. ? Watch your condition for any changes. ? Take slow and deep breaths when you feel nauseous. ? Keep all follow-up visits. This is important. Contact a health care provider if: ? Your symptoms get worse. ? You have new symptoms. ? You have a fever. ? You cannot drink fluids without vomiting. ? Your nausea does not go away after 2 days. ? You feel light-headed or dizzy. ? You have a headache. ? You have muscle cramps. ? You have a rash. ? You have pain while urinating. Get help right away if: ? You have pain in your chest, neck, arm, or jaw. ? You feel extremely weak or you faint. ? You have persistent vomiting. ? You have vomit that is bright red or looks like black coffee grounds. ? You have bloody or black stools (feces) or stools that look like tar. ? You have a severe headache, a stiff neck, or both. ? You have severe pain, cramping, or bloating in your abdomen. ? You have difficulty breathing, or you are breathing very quickly. ? Your heart is beating very quickly. ? Your skin feels cold and clammy. ? You feel confused. ? You have signs of dehydration, such as: ? Dark urine, very little urine, or no urine. ? Cracked lips. ? Dry mouth. ? Sunken eyes. ? Sleepiness. ? Weakness. These symptoms may be an emergency. Get help right away. Call 911. ? Do not wait to see if the symptoms will go away. ? Do not drive yourself to the hospital. Summary ? Nausea is the feeling that you have an upset stomach or that you are about to vomit. As nausea getsworse, it can lead to vomiting. Vomiting can make you feel weak and cause you to become dehydrated. ? Follow instructions from your health care provider about eating and drinking to prevent dehydration. ? Take qpqw-tgd-vmyesqt and prescription medicines only as told by your health care provider. ? Contact your health care provider if your symptoms get worse, or you have new symptoms. ? Keep all follow-up visits. This is important. This information is not intended to replace advice given to you by your health care provider. Make sure you discuss any questions you have with your health care provider. Document Revised: 08/27/2021 Document Reviewed: 08/27/2021 [employer] Patient Education ?? 2022 [employer] Patient/Hub Bander Signature Patient Name:ROSARIO MOSHER I have received this information and my questions have been answered. Patient/Hub Bander Name: Patient/Hub Bander Signature: Relationship to Patient: Witness Name/Signature: Date: Electronically Signed on: 12/22/2022 13:55 EDTSigned by:TIFFANY RIZVI Heart * Event Display: Echo Report Physician Emergency department Note * Catrachito Philip MD: PERFORM Event Display: ED Note Physician Authored Date: [id number] Patient originally seen by Dr. Morgan. Repeat troponin comes back within increased elevation and significant delta. CT angio comes back negative for pulmonary embolism or other acute abnormality. I discussed the case with [facility] cardiology who recommended heparin and medical management at this ti la. I spoke with Dr. Hernández and patient was admitted. Patient remains chest pain-free hemodynamically stable with the exception that while sleeping he does sometimes desaturates. Electronically Signed on 12/20/22 01:53 PM Catrachito Philip MD * Sidney Morgan MD: PERFORM Event Display: ED Note Physician Authored Date: [id number] ROSARIO MOSHER :1955 Age:67 years Sex:Male Visit Date:12/20/2022 Primary Care Physician: NICOLASA FERRELL Basic Information Time Seen: Sidney Morgan MD / 12/20/2022 07:58 Chief Complaint CA patient - lymph nodes / bone . presents N&V weakness .. Denies cough , fever History Of Present Illness: 67-year-old male with past medical history significant for metastatic prostate cancer as well as bilateral ureteral stents due to??hydronephrosis from??obstruction??from lymphadenopathy presents to the ER complaining of??nausea and vomiting. ??The patient states that symptoms started??3 days ago and have been persistent. ??He had nausea, inability to take oral intake, lower abdominal pain, and now increasing weakness, lightheadedness, and fatigue. ??Denies any cough, chest pain, or difficulty breathing. ??He has chronic swelling in his legs which is unchanged. ??No fevers or chills.?? He has s ome??chronic dysuria which is unchanged.?? No recent sick contacts. Review of Systems: CONSTITUTIONAL:??No fevers or chills. EYES:??No change in vision. ENT:??No sore throat. ??No headache. ??No neck pain. CARDIOVASCULAR:??No chest pain, palpitations or passing out episodes. RESPIRATORY:??No cough, shortness of breath or hemoptysis. :??No change in urination. SKIN:??No rash. NEUROLOGIC:??No focal numbness or weakness. LYMPH:??No swelling. ?? Review of systems otherwise as stated in HPI Physical Exam Vitals & Measurements T:??37.0?C ??(Tympanic)?? HR:??72??(Peripheral)?? HR:??71??(Monitored)?? RR:??11?? BP:??120/58?? SpO2:??89%?? HT:??177.800??cm?? WT:??79.38??kg?? BMI:??25.000?? GENERAL:??Awake and alert. ??Appears chronically ill.?? Pale appearing. HEENT:??Normocephalic, atraumatic. ??Mucous membranes are dry. NECK:??Supple. ??Nontender. HEART:??Regular rate and rhythm. ??S1 and S2. LUNGS:??Clear to auscultation bilaterally. ??No respiratory distress. ABDOMEN:??Soft,??mild to moderate diffuse lower abdominal tenderness. ??No guarding or rebound. BACK:??Normal to inspection and nontender. ??No CVA tenderness. EXTREMITIES:??Nontender and without edema. NEUROLOGIC:??Awake, alert, and oriented x3. ??Motor and sensory grossly intact. SKIN:??Warm and dry. VASCULAR:??Radial 2+ bilaterally. Medical Decision Makin. ??Abdominal pain, nausea, vomiting.?? Exact etiology is unclear at this time. ??Abdominal CT shows stents in good position without change in previous hydronephrosis. ??Urinalysis is still pending to evaluate for??infectious process such as UTI or pyelonephritis.?? EKG shows some mild lateral ST d epressions and initial troponin is??elevated however the patient has not had any chest pain or shortness of breath??and BUN/creatinine are??elevated which could decrease clearance.?? He was found to be asymptomatically hypoxic and was placed on??supplemental oxygen and certainly PE is a potential??cause given his history of metastatic cancer.?? CTA has been ordered and is pending for reevaluationas well as repeat troponin and EKG. ??I had a discussion of the risks and benefits of IV contrast with him given his elevated creatinine and decreased GFR.?? He has been ordered 2 L of normal saline for prehydration to mitigate??contrast induced nephropathy the patient has agreed to proceed which Ithink is??important at this time. ?? The patient has been treated with IV fluids, Tylenol, and Zofran and is improving on reevaluation.?? He will be signed out at shift change Dr. Philip for reevaluation and appropriate disposition. Procedure No Qualifying Data Assessment/Plan 1.??Nausea and vomiting??R11.2 Orders: CT Angio Chest, 12/20/22 10:10:00 EDT, Stat, Reason: sob, +trop, hx ca; ?pe, Transport Mode: Stretcher CV Electrocardiogram 12 Lead, 12/20/22 9:57:00 EDT, Stat, Reason: Chest Pain, Stop date and time 12/20/22 9:57:00 EDT, ORD_SET_REQ_DT_RANGE, [facility] Internal Person Id Troponin-I High Sensitivity, Blood, Stat, 12/20/22 9:40:00 EDT, Once, Nurse collect Urinalysis with Micro if Indicated and Culture if Indicated, Urine, Stat Collect, 12/20/22 8:00:00 EDT, Once, Nurse collect, Print Label Medication Reconciliation Unchanged abiraterone (abiraterone 500 mg oral tablet)2 tab Oral (given by mouth) every day. on an empty stomach 1 hour before or 2 hours after eating. ?? atorvastatin (atorvastatin 40 mg oral tablet)1 tab Oral (given by mouth) every day. ?? cholecalciferol (Vitamin D3 1000 intl units oral tablet)1 tab Oral (given by mouth) every day. ?? insulin glargine (Lantus Solostar Pen 100 units/mL subcutaneous solution)8 Units. 15 unknown unit. ?? leuprolide (leuprolide 22.5 mg/3 months intramuscular kit)22.5 Milligrams Intramuscular (in a muscle) every 3 months. ?? levothyroxine (Synthroid 137 mcg (0.137 mg) oral tablet)90 tab. ?? predniSONE (predniSONE 5 mg oral delayed release tablet)1 tab Oral (given by mouth) every day. Problem List/Past Medical History Ongoing Adenocarcinoma of prostate Adenoma of colon Diabetes Gout High blood pressure Hypercholesterolemia Historical No qualifying data Procedure/Surgical History ???Stent placement (09/29/2022) Medication Administration Given Sodium Chloride 0.9%, 1000 mL, IV Bolus Sodium Chloride 0.9%, 1000 mL, IV Bolus acetaminophen, 1000 mg, IV Piggyback ondansetron, 4 mg, IV Push Allergies amoxicillin penicillins Social History Electronic Cigarette/Vaping Electronic Cigarette Use: Unknown/not obtained. Tobacco Never tobacco user Tobacco Use:. Family History Diabetes mellitus: Sister. Heart disease: Father. Diagnostic Results CT Abdomen and Pelvis w/o Contrast 12/20/2022 09:18 EDT XR Chest 2 Views 12/20/2022 09:38 EDT XR Chest 2 Views ?? 12/20/22 09:36:21 EXAM DESCRIPTION: XR Chest 2 Views ?? 12/20/2022 ? INDICATION: HYPOXIA ?? COMPARISON: None ?? FINDINGS: Clear lungs with no focal infiltrate or pulmonary edema. Normal cardiomediastinal contour. Normal pleural margins with no pleural effusion or pneumothorax. Mild spondylotic changes of the dorsal spine. ?? IMPRESSION: No active chest disease. ? JOB #: [id number] Electronically Signed By: ?? Signed By: Jose Angel Shin MD ?? CT Abdomen and Pelvis w/o Contrast ?? 12/20/22 09:16:08 EXAM DESCRIPTION: CT Abdomen and Pelvis w/o Contrast ?? 12/20/2022 ?? INDICATION: ABD PAIN, N/V, HX PROSTATE CA; ? STENT OBSTRUCTION ?? TECHNIQUE: All CT scans at this facility use at least one of these dose optimization techniques: Automated exposure control; mA and/or kV adjustment per patient size (includes targeted exams where dose is matched to clinical indication); or iterative reconstruction. ?? Technique: Axial CT images of the abdomen/pelvis without IV contrast administration ?? COMPARISON: 10/05/2022 ?? FINDINGS: Visualized portions of the liver, spleen, pancreas and adrenal glands demonstrate a normal unenhanced CT appearance. ?? No calcified gallstones in the gallbladder. ?? Bilateral ureteral stents in stable satisfactory position. Mild bilateral hydronephrosis without significant change. No renal calculi on either side. ?? Scattered low-attenuation renal lesions bilaterally likely reflecting cysts which were seen previously. ?? Normal caliber abdominal aorta. ?? Retroperitoneal adenopathy in the left para-aortic and paracaval regions which appears improved. Adenopathy in the left iliac chain region surrounding portions of the left ureteral stent, slightly improved. ?? The prostate gland is mildly enlarged with indentation of the bladder base. ?? No bowel dilatation to suggest obstruction or ileus. No ascites or free intraperitoneal air. Normal appendix. ?? Mild subsegmental atelectasis or scarring in both lung bases. ?? Sclerotic lesions involving the pelvis, sacrum and visualized spinal axis suspicious for metastatic disease ?? IMPRESSION: Bilateral ureteral stents in stable satisfactory position. Mild bilateral hydronephrosis without significant change. ?? Nonobstructive bowel pattern. No free air or bowel inflammatory changes. Normal appendix ?? Retroperitoneal adenopathy as described above, slightly improved since prior study. ?? Scattered sclerotic osseous lesions suspicious for metastatic disease, many of which appear new since prior study. ?? Additional nonacute findings as detailed above. ? JOB #: [id number] Electronically Signed By: ?? Signed By: Jose Angel Shin MD ECG Normal sinus rhythm at 73. ??Mild??diffuse ST depressions. Lab Results CBC and Differential?? LATEST RESULTS?? HISTORICAL RESULTS?? WBC?? 12/20/22 08:24?? 8.4?? 10/05/22?? 7.1?? RBC?? 12/20/22 08:24?? 3.60 ??Low?? 10/05/22?? 2.93 ??Low?? Hgb?? 12/20/22 08:24?? 10.7 ??Low?? 10/05/22?? 8.5 ??Low?? Hct?? 12/20/22 08:24?? 32.2 ??Low?? 10/05/22?? 26.2 ??Low?? MCV?? 12/20/22 08:24?? 89.4?? 10/05/22?? 89.4?? MCH?? 12/20/22 08:24?? 29.7?? 10/05/22?? 29.0?? MCHC?? 12/20/22 08:24?? 33.2?? 10/05/22?? 32.4?? RDW-CV?? 12/20/22 08:24?? 14.9 ??High?? 10/05/22?? 15.1 ??High?? Platelets?? 12/20/22 08:24?? 252?? 10/05/22?? 398?? MPV?? 12/20/22 08:24?? 10.1?? 10/05/22?? 10.3?? Neutro Auto?? 12/20/22 08:24?? 78.7 ??High?? 10/05/22?? 64.0?? Lymph Auto?? 12/20/22 08:24?? 7.9 ??Low?? 10/05/22?? 18.3 ??Low?? [place] Auto?? 12/20/22 08:24?? 12.6 ??High?? 10/05/22?? 12.7 ??High?? Eos, Auto?? 12/20/22 08:24?? 0.20?? 10/05/22?? 3.50 ??High?? Basophil Auto?? 12/20/22 08:24?? 0.2?? 10/05/22?? 1.1 ??High?? Imm Gran Auto?? 12/20/22 08:24?? 0.4?? 10/05/22?? 0.4?? Neutro Absolute?? 12/20/22 08:24?? 6.6 ??High?? 10/05/22?? 4.5?? Lymph Absolute?? 12/20/22 08:24?? 0.7 ??Low?? 10/05/22?? 1.3?? [place] Absolute?? 12/20/22 08:24?? 1.1 ??High?? 10/05/22?? 0.9 ??High?? Eos Absolute?? 12/20/22 08:24?? 0.0?? 10/05/22?? 0.2?? Baso Absolute?? 12/20/22 08:24?? 0.0?? 10/05/22?? 0.1?? Imm Gran Absolute?? 12/20/22 08:24?? 0.03 ??High?? 10/05/22?? 0.03?? Slide Review?? 12/20/22 08:24?? Not Indicated? Coagulation?? LATEST RESULTS?? HISTORICAL RESULTS?? Prothrombin Time?? 12/20/22 08:24?? 12.3 ??High?? 10/05/22?? 11.5 ??High?? INR?? 12/20/22 08:24?? 1.2 ??High?? 10/05/22?? 1.2 ??High?? Partial Thromboplastin Time?? 12/20/22 08:24?? 28.2? Routine Chemistry?? LATEST RESULTS?? HISTORICAL RESULTS?? Sodium Level?? 12/20/22 08:24?? 131 ??Low?? 11/28/22?? 136?? Potassium Level?? 12/20/22 08:24?? 3.7?? 11/28/22?? 4.5?? Chloride Level?? 12/20/22 08:24?? 98?? 11/28/22?? 102?? CO2?? 12/20/22 08:24?? 22?? 11/28/22?? 24?? Alk Phos?? 12/20/22 08:24?? 57?? 11/28/22?? 71?? AST?? 12/20/22 08:24?? 29?? 11/28/22?? 23?? ALT?? 12/20/22 08:24?? 14 ??Low?? 11/28/22?? 15 ??Low?? BUN?? 12/20/22 08:24?? 40 ??High?? 11/28/22?? 41 ??High?? Glucose Level?? 12/20/22 08:24?? 167 ??High?? 11/28/22?? 214 ??High?? Creatinine Level?? 12/20/22 08:24?? 1.95 ??High?? 11/28/22?? 1.59 ??High?? BUN/Creat Ratio?? 12/20/22 08:24?? 20.5 ??High?? 11/28/22?? 25.8 ??High?? eGFR CKD-EPI?? 12/20/22 08:24?? 37 ??Low?? 11/28/22?? 47 ??Low?? Calcium Level?? 12/20/22 08:24?? 8.7 ??Low?? 11/28/22?? 9.3?? Protein Total?? 12/20/22 08:24?? 7.5?? 11/28/22?? 7.2?? Albumin Level?? 12/20/22 08:24?? 3.1 ??Low?? 11/28/22?? 3.6?? Globulin?? 12/20/22 08:24?? 4.4 ??High?? 11/28/22?? 3.6 ??High?? A/G Ratio?? 12/20/22 08:24?? 0.7 ??Low?? 11/28/22?? 1.0?? Bilirubin Total?? 12/20/22 08:24?? 1.1?? 11/28/22?? 0.6?? Anion Gap?? 12/20/22 08:24?? 11.0?? 11/28/22?? 10.0?? Lactic Acid Lvl?? 12/20/22 08:24?? 1.5? Lipase Level?? 12/20/22 08:24?? 37? Magnesium Level?? 12/20/22 08:24?? 1.9?? 10/10/22?? 1.9?? Osmolality?? 12/20/22 08:24?? 276?? 11/28/22?? 288? Cardiac Isoenzymes?? LATEST RESULTS?? Troponin-I HS?? 12/20/22 08:24?? 141 ??Critical? Electronically Signed on 12/20/22 10:28 AM Sidney Morgan MD * Event Display: ED Note Physician Nutrition and dietetics Progress note * Bridget Bowman: PERFORM Event Display: Nutrition Note Authored Date: Assessment and Monitoring ?? Reason for Referral:??nutrition tuan score probable inadequate ?? Usual Body Weight: 180#s Weight Change: n/a Skin: intact Edema: trace Chewing/Swallowing: n/a GI: nausea ? Nutrition Assessment: ?? 67 yo M admit with nausea, weakness, dizziness.??PMH significant for prostate?? cancer, CKD, CHF, diabetes. hasn't eaten??much 3-4x.day given N/V- unclear etiology, may be stomach bug. accepting liquids but??reports solids make??nauseas/unable to tolerate.??will try a protein shakes- thinks may be able to tolerate. drank jello, crystal light and water today.??enc liquids/bland foods as tolerates.??was eating fine prior to the past??~4 days reports. BS 130-150s- SSI. reports weight ~mid to low 180#s. weight a bit higher- could be r/t fluid- on LR. Monitoring pos/ adjust as needed, ? Monitor/Evaluation:??pos, labs, GI, blood sugars, edema Nutrition Goals No s/sx hyper,hypoglycemia labs wnl skin intact Nutrition Interventions Regular diet trial protein shakes- offer as accepts to get some nutrition in labs Anthropometrics/Estimated Needs Zsjniv56.100 kg(Recorded: 12/20/2022 14:45 EDT) Kauqkj035.800 cm(Recorded: 12/20/2022 14:45 EDT) Body Mass Index26.920 kg/m2(Recorded: 12/20/2022 14:45 EDT) Estimated Energy Needs: 1700-2125kcal (20-25kcal/kg actual BW) Estimated Protein Needs: 85-102g (1.0-1.2g/kg actual BW) Estimated Fluid Needs: 1700-2125ml (1ml/kcal) Reason for Visit Nausea, weakness/dizziness Problem List/Past Medical History Ongoing Adenocarcinoma of prostate Adenoma of colon CKD (chronic kidney disease) Congestive heart failure Diabetes Gout High blood pressure Hypercholesterolemia Historical No qualifying data Procedure/Surgical History ???Stent placement (09/29/2022) Social History Electronic Cigarette/Vaping Electronic Cigarette Use: Unknown/not obtained. Home/Environment Lives with Alone. Living situation: Home/Independent. Home equipment: Cane. Tobacco Never tobacco user Tobacco Use:. Family History Diabetes mellitus: Sister. Heart disease: Father. Diet Orders Diet Order, 12/20/22 19:44:00 EDT, Regular Start Meal: Now Allergies amoxicillin??(Rash) penicillins Nutrition Lab Results Test Name Test Result Date/Time WBC 6.2 K/mcL 12/21/2022 04:30 EDT Hgb 9.2 g/dL 12/21/2022 04:30 EDT Hct 28.2 % 12/21/2022 04:30 EDT MCV 91.9 fL 12/21/2022 04:30 EDT Platelets 197 K/mcL 12/21/2022 04:30 EDT INR 1.2 12/20/2022 08:24 EDT Partial Thromboplastin Time 28.2 seconds 12/20/2022 08:24 EDT Sodium Level 134 mmol/L 12/21/2022 04:30 EDT Potassium Level 3.6 mmol/L 12/21/2022 04:30 EDT Chloride Level 105 mmol/L 12/21/2022 04:30 EDT CO2 23 mmol/L 12/21/2022 04:30 EDT Alk Phos 57 IntlUnit/L 12/20/2022 08:24 EDT ALT 14 IntlUnit/L 12/20/2022 08:24 EDT BUN 36 mg/dL 12/21/2022 04:30 EDT Glucose Level 133 mg/dL 12/21/2022 04:30 EDT Creatinine Level 2.09 mg/dL 12/21/2022 04:30 EDT Albumin Level 3.1 g/dL 12/20/2022 08:24 EDT Bilirubin Total 1.1 mg/dL 12/20/2022 08:24 EDT Magnesium Level 1.9 mg/dL 12/20/2022 08:24 EDT Medications Inpatient abiraterone 500mg tablets, 2 EA, Oral, Daily acetaminophen 500 mg oral tablet, 1000 mg= 2 tab, Oral, TID, PRN atorvastatin, 40 mg= 2 tab, Oral, Daily Bactrim DS 800 mg-160 mg oral tablet, 1 tab, Oral, BID Dextrose 50% injection, 25 g= 50 mL, IV Push, As Directed glucagon, 1 mg= 1 EA, Subcutaneous, As Directed HYDROcodone-acetaminophen 5 mg-325 mg oral tablet, 1 tab, Oral, every 8 hr, PRN insulin aspart Sliding Scale - Low Dose, Insulin Aspart Sliding Scale See Comments, Subcutaneous, AC levothyroxine, 175 mcg, Oral, Daily LR 1,000 mL, 1000 mL, IV ondansetron, 4 mg= 2 mL, IV Push, every 6 hr, PRN Pepcid, 20 mg= 50 mL, IV Piggyback, every 12 hr (ryan) predniSONE, 5 mg= 1 tab, Oral, Daily Home abiraterone 500 mg oral tablet, 1000 mg= 2 tab, Oral, Daily acetaminophen 500 mg oral tablet, 1000 mg= 2 tab, Oral, TID, PRN atorvastatin 40 mg oral tablet, 40 mg= 1 tab, Oral, Daily HYDROcodone-acetaminophen 5 mg-325 mg oral tablet, 1 tab, Oral, every 8 hr, PRN Lantus Solostar Pen 100 units/mL subcutaneous solution, 10 units, Subcutaneous, Daily leuprolide 22.5 mg/3 months intramuscular kit, 22.5 mg, IM, every 3 mo levothyroxine 175 mcg (0.175 mg) oral tablet, 175 mcg= 1 tab, Oral, Daily Macular Health Formula oral capsule, 2 cap, Oral, Daily predniSONE 5 mg oral delayed release tablet, 5 mg= 1 tab, Oral, Daily Vitamin D3 1000 intl units oral tablet, 25 mcg= 1 tab, Oral, Daily Electronically Signed on 12/21/22 03:03 PM Bridget Bowman Progress note * Raoul Hernández MD: PERFORM Raoul Hernández MD: PERFORM, MODIFY Raoul Hernández MD: MODIFY, MODIFY Event Display: Progress Note - Physician Authored Date: [id number] ROSARIO MOSHER :1955 Age:67 years Sex:Male Visit Date:12/20/2022 Primary Care Physician: NICOLASA FERRELL Rosario Mosher is a 67 year old male, with a past medical history significant for metastatic prostate cancer as well as bilateral ureteral stents due to??hydronephrosis from??obstruction??from lymphadenopathy who was admitted to our service??two days ago??for evaluation of nausea and vomiting??with associated lightheadedness and lack of appetite.??The patient notes that today, he feels his lightheadedness has resolved. He notes continued nausea??and lack of appetite - but he has had protein shakes, half a piece of malawian toast, and duff for breakfast. He thinks he may be ready to try increasing solid foods later today.??He notes that he was able to have a bowel movement yesterday, but still feels constipated.??At this time, he reports increased urinary urgency but is unsure if this could be secondary to his ongoing prostate issues. 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 He denies chest pain, fevers, or chills. Review of Systems Constitutional:?No??fevers,?No??chills Respiratory:?Positive for??shortness of breath,?No??cough Cardiovascular:?No??Chest pain Gastrointestinal:?Positive for??nausea,??Positive for vomiting, Positive for appetite changes Genitourinary:??Positive for increased urinary urgency,?No??hematuria Objective Vitals & Measurements T:??37.0?C ??(Oral)?? TMIN:??36.7?C ??(Temporal Artery)?? TMAX:??37.6?C ??(Oral)?? HR:??67??(Peripheral)?? RR:??16?? BP:??124/72?? SpO2:??99%?? Pain Score:??2?? O2 Flow Rate:??2?? O2 Therapy:??Room air?? Physical Exam General: Alert and oriented, well nourished,?No??acute distress Neck: Supple, non-tender,?No??carotid bruits,?No??JVD,?No??lymphadenopathy Lungs:??Clear to auscultation?? Respiration:??Non-Labored Heart:?Normal? rate,?Regular??rhythm,?No??murmur,?No??gallop,?Positive for??bilate ral lower extremity??edema Abdomen: Soft, diffusely tender to palpation, more notable to periumbilical region??Normal? bowel sounds,?No??masses Skin: Skin is warm, dry and pink,?No??rashes,?No??lesions Psychiatric: Cooperative, appropriate mood and affect Lab Results Last 24 Hours?? Chemistry Event Name?? Event Result?? Date/Time?? Sodium Level 132 mmol/L??Low 12/22/22 06:29:00 Potassium Level 3.5 mmol/L 12/22/22 06:29:00 Chloride Level 103 mmol/L 12/22/22 06:29:00 CO2 21 mmol/L??Low 12/22/22 06:29:00 BUN 36 mg/dL??High 12/22/22 06:29:00 Glucose Level 145 mg/dL??High 12/22/22 06:29:00 Creatinine Level 1.81 mg/dL??High 12/22/22 06:29:00 BUN/Creat Ratio 19.9 12/22/22 06:29:00 eGFR CKD-EPI 40 mL/min/1.73 m2??Low 12/22/22 06:29:00 Calcium Level 7.9 mg/dL??Low 12/22/22 06:29:00 Anion Gap 8 12/22/22 06:29:00 Osmolality 275 mOsm/kg 12/22/22 06:29:00 Glucose POC 137 12/22/22 09:11:00 ? Hematology Event Name?? Event Result?? Date/Time?? WBC 7.2 K/mcL 12/22/22 06:29:00 RBC 3.1 Million/mcL??Low 12/22/22 06:29:00 Hgb 9.1 g/dL??Low 12/22/22 06:29:00 Hct 27.7 %??Low 12/22/22 06:29:00 MCV 89.4 fL 12/22/22 06:29:00 MCH 29.4 pg 12/22/22 06:29:00 MCHC 32.9 g/dL 12/22/22 06:29:00 RDW-CV 15.2 %??High 12/22/22 06:29:00 Platelets 204 K/mcL 12/22/22 06:29:00 MPV 9.7 fL 12/22/22 06:29:00 Neutro Auto 69.5 % 12/22/22 06:29:00 Lymph Auto 14.5 %??Low 12/22/22 06:29:00 [place] Auto 14.1 %??High 12/22/22 06:29:00 Eos, Auto 1.1 % 12/22/22 06:29:00 Basophil Auto 0.4 % 12/22/22 06:29:00 Imm Gran Auto 0.4 % 12/22/22 06:29:00 Neutro Absolute 5 K/mcL 12/22/22 06:29:00 Lymph Absolute 1 K/mcL??Low 12/22/22 06:29:00 [place] Absolute 1 K/mcL??High 12/22/22 06:29:00 Eos Absolute 0.1 K/mcL 12/22/22 06:29:00 Baso Absolute 0 K/mcL 12/22/22 06:29:00 Imm Gran Absolute 0.03 K/mcL??High 12/22/22 06:29:00 Slide Review Not Indicated 12/22/22 06:29:00 ? 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 CT abdomen unremarkable.??Echo done which did not reveal any significant changes from previous. He is receiving IV??Pepcid and Zofran PRN for his nausea and vomiting. He is feeling slightly better and has been able to tolerate protein shakes and??some solid foods including duff.??Continue to monitor PO intake. 2.??NSTEMI (non-ST elevated myocardial infarction)??I21.4 Patient's course in ED was notable for two elevated troponins with significant delta, however thirdtroponin value was flat. Patient had echocardiogram done 12/20 which did not show any significant changes, specifically no WMA??from previous echocardiogram done on 12/01, thus this clinical picture favors a Type II NSTEMI. 3.??Urinary tract infection??N39.0 Confirmed by urinalysis revealing positive leukocyte esterase and nitrites. Urine culture is positive for staph epidermidis although not sure if this is a contaminant. Patient will continue to receive TMP-SMX. 4.??Congestive heart failure??I50.9 EF improved from 46% on 12/01 echocardiogram to 48% on 12/20 echocardiogram. Thought to be stress-induced cardiomyopathy.?? At this point no rales or significant edema is present on exam. Patient wastaken off of 2L nasal cannula. His O2 saturation is now 99% on RA. Will continue to monitor for anysigns of dyspnea or fluid overload. 5.??CKD (chronic kidney disease)??N18.9 Creatinine??is trending down. Most recent value is 1.8. Patient's baseline is around 1.5.?? Favor prerenal azotemia as??cause of acute on chronic renal failure. IV fluids have helped with this. 6.??Diabetes??E11.9 Regular diet, sliding scale insulin 7.??Adenocarcinoma of prostate??C61 Follow up with oncology outpatient. Electronically Signed on 12/22/22 01:42 PM Raoul Hernández MD Electronically Signed on 12/22/22 01:41 PM Jaimie Wynne * Raoul Hernández MD: PERFORM Raoul Hernández MD: PERFORM, MODIFY Raoul Hernández MD: MODIFY Event Display: Progress Note - Physician Authored Date: [id number] ROSARIO MOSHER :1955 Age:67 years Sex:Male Visit Date:12/20/2022 Primary Care Physician: NICOLASA FERRELL Rosario Mosher is a 67 year old male, with a past medical history significant for metastatic prostate cancer as well as bilateral ureteral stents due to??hydronephrosis from??obstruction??from lymphadenopathy who was admitted to our service yesterday for evaluation of nausea and vomiting??with associated lightheadedness and lack of appetite.??The patient notes that today, he feels his lightheadedness has resolved. He notes continued nausea??and lack of appetite - noting that he was only able to a bite of an Sinhala muffin today. He??reports??diffuse abdominal pain more localized to the periumbilical region and??adds that he has not had a bowel movement in three days. At this time, he reports increased urinary urgency but is unsure if this could be secondary to his ongoing prostate issues. 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 He denies chest pain, fevers, or chills. Review of Systems Constitutional:?No??fevers,?No??chills Respiratory:?Positive for??shortness of breath,?No??cough Cardiovascular:?No??Chest pain Gastrointestinal:?Positive for??nausea,??Positive for vomiting, Positive for appetite changes, Positive for constipation Genitourinary:??Positive for increased urinary urgency,?No??hematuria Objective Vitals & Measurements T:??37.1?C ??(Temporal Artery)?? TMIN:??37.1?C ??(Temporal Artery)?? TMAX:??37.4?C ??(Temporal Artery)?? HR:??73??(Peripheral)?? RR:??21?? BP:??106/54?? SpO2:??100%?? HT:??177.800??cm?? WT:??85.100??kg?? BMI:??26.920?? Pain Score:??6?? O2 Flow Rate:??2?? O2 Therapy:??Nasal cannula?? Physical Exam General: Alert and oriented, well nourished,?No??acute distress Neck: Supple, non-tender,?No??carotid bruits,?No??JVD,?No??lymphadenopathy Lungs:??Clear to auscultation?? Respiration:??Non-Labored Heart:?Normal? rate,?Regular??rhythm,?No??murmur,?No??gallop,?Positive for??bilate ral lower extremity??edema Abdomen: Soft, diffusely tender to palpation, more notable to periumbilical region??Normal? bowel sounds,?No??masses Skin: Skin is warm, dry and pink,?No??rashes,?No??lesions Psychiatric: Cooperative, appropriate mood and affect Lab Results Last 24 Hours?? Chemistry Event Name?? Event Result?? Date/Time?? Sodium Level 134 mmol/L 12/21/22 04:30:00 Potassium Level 3.6 mmol/L 12/21/22 04:30:00 Chloride Level 105 mmol/L 12/21/22 04:30:00 CO2 23 mmol/L 12/21/22 04:30:00 BUN 36 mg/dL??High 12/21/22 04:30:00 Glucose Level 133 mg/dL??High 12/21/22 04:30:00 Creatinine Level 2.09 mg/dL??High 12/21/22 04:30:00 BUN/Creat Ratio 17.2 12/21/22 04:30:00 eGFR CKD-EPI 34 mL/min/1.73 m2??Low 12/21/22 04:30:00 Calcium Level 8 mg/dL??Low 12/21/22 04:30:00 Anion Gap 6 12/21/22 04:30:00 Osmolality 278 mOsm/kg 12/21/22 04:30:00 Glucose POC 151 12/21/22 12:45:00 Troponin-I HS 149 ng/L??Critical 12/20/22 14:50:00 ? Hematology Event Name?? Event Result?? Date/Time?? WBC 6.2 K/mcL 12/21/22 04:30:00 RBC 3.07 Million/mcL??Low 12/21/22 04:30:00 Hgb 9.2 g/dL??Low 12/21/22 04:30:00 Hct 28.2 %??Low 12/21/22 04:30:00 MCV 91.9 fL 12/21/22 04:30:00 MCH 30 pg 12/21/22 04:30:00 MCHC 32.6 g/dL 12/21/22 04:30:00 RDW-CV 15.4 %??High 12/21/22 04:30:00 Platelets 197 K/mcL 12/21/22 04:30:00 MPV 9.9 fL 12/21/22 04:30:00 Neutro Auto 65.8 % 12/21/22 04:30:00 Lymph Auto 14.5 %??Low 12/21/22 04:30:00 [place] Auto 18 %??High 12/21/22 04:30:00 Eos, Auto 0.7 % 12/21/22 04:30:00 Basophil Auto 0.7 % 12/21/22 04:30:00 Imm Gran Auto 0.3 % 12/21/22 04:30:00 Neutro Absolute 4 K/mcL 12/21/22 04:30:00 Lymph Absolute 0.9 K/mcL??Low 12/21/22 04:30:00 [place] Absolute 1.1 K/mcL??High 12/21/22 04:30:00 Eos Absolute 0 K/mcL 12/21/22 04:30:00 Baso Absolute 0 K/mcL 12/21/22 04:30:00 Imm Gran Absolute 0.02 K/mcL 12/21/22 04:30:00 ?Medications (13) Active Scheduled: (9) abiraterone 500mg tablets ??2 EA, Oral, Daily Atorvastatin 20 mg Tab [LTTL] ??40 mg 2 tab, Oral, Daily Dextrose 50% Inj 50 mL Syringe [LTTL] ??25 g 50 mL, IV Push, As Directed famotidine ??20 mg 50 mL, IV Piggyback, every 12 hr (ryan) Glucagon 1 mg Inj ??[LTTL] ??1 mg 1 EA, Subcutaneous, As Directed Insulin aspart 100 units/mL Inj 3 ml Pen [LTTL] ??Insulin Aspart Sliding Scale See Comments, Subcutaneous, AC Levothyroxine 75 mcg Tab [LTTL] + Levothyroxine 100 mcg Tab [LTTL] ??175 mcg, Oral, Daily PredniSONE 5 mg Tab [LTTL] ??5 mg 1 tab, Oral, Daily Sulfameth-trimeth 800-160 mg Tab [LTTL] ??1 tab, Oral, BID Continuous: (1) Lactated Ringers 1,000 mL ??1,000 mL, IV, 100 mL/hr PRN: (3) Acetaminophen 500 mg Tab [LTTL] ??1,000 mg 2 tab, Oral, TID Acetaminophen-hydrocodone 325-5 mg Tab [LTTL] ??1 tab, Oral, every 8 hr Ondansetron 2 mg/mL Inj 2 ml Vial [LTTL] ??4 mg 2 mL, IV Push, every 6 hr Diagnostic Results Echocardiogram done 12/20 revealing no significant changes from previous Echo done on 12/01 Assessment/Plan 1.??Nausea and vomiting??R11.2 May be secondary to viral GI process 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 CT abdomen unremarkable.??Echo done which did not reveal any significant changes from previous. He is receiving IV??Pepcid and Zofran PRN for his nausea and vomiting. 2.??NSTEMI (non-ST elevated myocardial infarction)??I21.4 Patient's course in ED was notable for two elevated troponins with significant delta, however thirdtroponin value was flat. Patient had echocardiogram done 12/20 which did not show any significant changes, specifically no WMA??from previous echocardiogram done on 12/01, thus this clinical picture favors a Type II NSTEMI.?? 3.??Urinary tract infection??N39.0 Confirmed by urinalysis revealing positive leukocyte esterase and nitrites. Urine culture is positive for staph epidermidis although not sure if this is a contaminant. We will treat with TMP-SMX and reevaluate patient's nausea and vomiting as this could be a source for his symptoms. 4.??Congestive heart failure??I50.9 EF improved from 46% on 12/01 echocardiogram to 48% on 12/20 echocardiogram. Thought to be stress-induced cardiomyopathy.?? At this point no rales or significant edema is present on exam. He has somemild shortness of breath and hypoxemia when sleeping. Patient is on 2L nasal cannula with adequate oxygen saturation. 5.??CKD (chronic kidney disease)??N18.9 Creatinine??is a bit above baseline at 2.1.??Patient's baseline is around 1.5.?? Favor prerenal azotemia as??cause of acute on chronic renal failure. We will give IV fluids. 6.??Diabetes??E11.9 Regular diet, sliding scale insulin 7.??Adenocarcinoma of prostate??C61 Continue to follow with outpatient oncology Electronically Signed on 12/21/22 03:27 PM Raoul Hernández MD Electronically Signed on 12/21/22 03:00 PM SreeJaimie kelly * Event Display: Progress Note - Physician Authored Date: [id number] Attending Physician - Brief Progress Note PERMANENT 12/20/2022 16:02 [facility] - ICU ROSARIO MOSHER Date of Service 12/20/2022 16:02 HPI/Events of Note TeleICU Physician Note I established audio/visual connection with the patient's room, reviewed the EMR Breifly this is a 67 year old man with h/o metastatic prostate Ca, HFrEF, DM, Hydronephrosis s/p b/l ureteral stents presenting with 3 days of nausea and vomiting complicated by fatigue and lightheadedness. workup in was signifcant for eleavted troponins, CTA was negative. he was started on heparingtt for nstemi after consultation with [facility] cardiology Camera - pt awake, conversation with family at bedside Labs a nd VS reviewed Cr 1.95 BUN 40 trop - peaked at 159, now [address] chest and a/p appreciated - no signicant change in hydronephrosis # NSTEMI #WALTER continue heparin gtt TTE dapt trend bmp moinitor UO IVF bolus insulin basal bolus Interventions Intermediate-Abdominal pain - evaluation and management History and physical note * Raoul Hernández MD: PERFORM Event Display: History and Physical Authored Date: [id number] ROSARIO MOSHER :1955 Age:67 years Sex:Male Visit Date:12/20/2022 Primary Care Physician: NICOLASA FERRELL Chief Complaint Nausea, weakness/dizziness History of Present Illness 67-year-old male with past medical history significant for metastatic prostate cancer as well as bilateral ureteral stents due to??hydronephrosis from??obstruction??from lymphadenopathy presents to the ER complaining of??nausea and vomiting. [1] ??The patient states that symptoms started??3 days ago and have been persistent. ??He had nausea, inability to take oral intake,mild lower abdominal pain, and now increasing weakness, lightheadedness, and fatigue. ??Denies any cough, chest pain, or difficulty breathing.?Had 1 episode of loose stool throughout this.?? Some chronic urinary symptoms but nothing new.?? Has chronic chills but also nothing new Review of Systems Negative except for those per the HPI Physical Exam Vitals & Measurements T:??37.4?C ??(Temporal Artery)?? TMIN:??37.0?C ??(Tympanic)?? TMAX:??37.4?C ??(TemporalArtery)?? HR:??81??(Peripheral)?? HR:??82??(Monitored)?? RR:??20?? BP:??156/68?? SpO2:??99%?? HT:??177.800??cm?? WT:??85.100??kg?? BMI:??26.920?? Pain Score:??0?? O2 Flow Rate:??2?? O2 Therapy:??Nasal cannula?? General:??Alert , well nourished, no acute distress Eye:??PERRL, EOMI, normal conjunctiva, normal scleral icterus HENT:??Normocephalic, dry oral mucos??a Neck:??Supple, non-tender, no palpable lymphadenopathy Lungs:??Clear to auscultation and percussion, non-labored respiration Heart:??Normal ??rate, ??normal rhythm, no murmur,??no??edema Abdomen:??Soft, mild diffuse tenderness non-distended, ??normal bowel sounds, ??no masses Skin:??Skin is warm, dry and pink, ??no rashes, ??no lesions Neurologic:??Awake, alert and oriented X4, CN II-XII intact Psychiatric:??Cooperative, appropriate mood and affect Assessment/Plan 1.??Nausea and vomiting??R11.2 Favor stomach bug 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 Is received IV Pepcid no longer??as needed Zofran, he notes for the first time in 3 days he is getting some appetite now Ordered: Pepcid, 20 mg = 50 mL, IV Piggyback, Injection, every 12 hr (ryan) for 30 days, Administer over: 30 minutes, First Dose: 12/20/22 21:00:00 EDT, Stop Date: 01/19/23 20:59:00 EST, Physician Stop, Routine, 100 mL/hr ondansetron, 4 mg = 2 mL, IV Push, Vial, every 6 hr, PRN nausea/vomiting, First Dose: 12/20/22 16:25:00 EDT, Routine, zofran ?? 2.??NSTEMI (non-ST elevated myocardial infarction)??I21.4 See below??quoted from cardiology eval??in the emergency department but??intuition at this point favors type II NSTEMI as he is??without chest pain??and 3 days of symptoms??and though troponin elevated is now flat particularly after the third.?? Echocardiogram has been done awaiting read. ?? His recently diagnosed cardiomyopathy was most likely stress induced with recent TTE showing improved LVEF (27% >> 46%) WITHOUT coronary revascularization. TTE 11/2022 did however show posterolateral rWMAs (?RPDA). NSTEMI type 1 versus 2 at this point. Would admit locally and attempt to treat his nausea with antiemetics. Would start IV heparin for now and obtain repeat TTE to help with clinical decision making. I discussed the case with Dr. Rudolph who will consult locally. Pending TTE and local consultation we can reconsider transfer for [facility]. Given his metastatic prostate cancer withpoor prognosis I think more thoughtful conversation about risk versus benefit and his goals of careshould be had prior to subjecting him to an invasive test. Ordered: Pepcid, 20 mg = 50 mL, IV Piggyback, Injection, every 12 hr (ryan) for 30 days, Administer over: 30 minutes, First Dose: 12/20/22 21:00:00 EDT, Stop Date: 01/19/23 20:59:00 EST, Physician Stop, Routine, 100 mL/hr ondansetron, 4 mg = 2 mL, IV Push, Vial, every 6 hr, PRN nausea/vomiting, First Dose: 10/17/23 16:25:00 EDT, Routine, zofran ?? 3.??Congestive heart failure??I50.9 EF recently was 46%??thought to be stress-induced cardiomyopathy.?? At this point no rales right now.?? He has some mild hypoxemia only when he sleeps??so not likely from??any kind of congestive heart failure. Ordered: Pepcid, 20 mg = 50 mL, IV Piggyback, Injection, every 12 hr (ryan) for 30 days, Administer over: 30 minutes, First Dose: 12/20/22 21:00:00 EDT, Stop Date: 01/19/23 20:59:00 EST, Physician Stop, Routine, 100 mL/hr ondansetron, 4 mg = 2 mL, IV Push, Vial, every 6 hr, PRN nausea/vomiting, First Dose: 12/20/22 16:25:00 EDT, Routine, zofran ?? 4.??CKD (chronic kidney disease)??N18.9 Creatinine only a bit above baseline at 1.9 today??which has been around 1.5 or so.?? Favor prerenal azotemia as??cause of acute on chronic renal failure we will give IV fluids. Ordered: Pepcid, 20 mg = 50 mL, IV Piggyback, Injection, every 12 hr (ryan) for 30 days, Administer over: 30 minutes, First Dose: 12/20/22 21:00:00 EDT, Stop Date: 01/19/23 20:59:00 EST, Physician Stop, Routine, 100 mL/hr ondansetron, 4 mg = 2 mL, IV Push, Vial, every 6 hr, PRN nausea/vomiting, First Dose: 12/20/22 16:25:00 EDT, Routine, zofran ?? 5.??Diabetes??E11.9 Regular diet??we will give him some sliding scale insulin Ordered: Pepcid, 20 mg = 50 mL, IV Piggyback, Injection, every 12 hr (ryan) for 30 days, Administer over: 30 minutes, First Dose: 12/20/22 21:00:00 EDT, Stop Date: 01/19/23 20:59:00 EST, Physician Stop, Routine, 100 mL/hr ondansetron, 4 mg = 2 mL, IV Push, Vial, every 6 hr, PRN nausea/vomiting, First Dose: 12/20/22 16:25:00 EDT, Routine, zofran ?? 6.??Adenocarcinoma of prostate??C61 Bilateral ureteral stents in place we will continue??home??psych cancer medication. ?? full code, heparin for now, will switch to dvt prophy if echo negative, admit ICU Ordered: Pepcid, 20 mg = 50 mL, IV Piggyback, Injection, every 12 hr ([facility]) for 30 days, Administer over: 30 minutes, First Dose: 12/20/22 21:00:00 EDT, Stop Date: 01/19/23 20:59:00 EST, Physician Stop, Routine, 100 mL/hr ondansetron, 4 mg = 2 mL, IV Push, Vial, every 6 hr, PRN nausea/vomiting, First Dose: 12/20/22 16:25:00 EDT, Routine, zofran ?? Orders: Ambulate, 12/20/22 13:58:00 EDT, Constant order Basic Metabolic Panel, Blood, Routine, 12/20/22 13:59:00 EDT, Daily, for 3 days, Lab Collect CBC w/ Diff, Blood, Routine, 12/20/22 13:59:00 EDT, Daily, for 3 days, Lab Collect Contraindicated, 12/20/22 13:58:00 EDT, Contraindicated due to Medical Diagnosis / Will re- evaluate as Patient condition changes Diet Order, 12/20/22 16:17:00 EDT, Clear Liquids Incentive Spirometry Nursing, 12/20/22 13:58:00 EDT Patient Condition, 12/20/22 13:58:00 EDT, Condition Guarded PSO Admit to Inpatient, ICU, Inpatient, 12/20/22 13:48:00 EDT, 12/20/22 13:48:00 EDT, 12/20/22 13:48:00 EDT, Less than 96 hours PT/ PTT, Blood, Routine, 12/20/22 19:00:00 EDT, Once, Lab Collect PT/ PTT, Blood, Routine, 12/21/22 1:00:00 EDT, Once, Lab Collect Resuscitation Status, 12/20/22 13:58:00 EDT, Full Code Vital Signs, 12/20/22 13:58:00 EDT, every 2 hr Problem List/Past Medical History Ongoing Adenocarcinoma of prostate Adenoma of colon CKD (chronic kidney disease) Congestive heart failure Diabetes Gout High blood pressure Hypercholesterolemia Historical No qualifying data Procedure/Surgical History ???Stent placement (09/29/2022) Medications Inpatient heparin IV additive 25,000 units [12 unit/kg/hr] + Premix Diluent 500 mL ondansetron, 4 mg= 2 mL, IV Push, every 6 hr, PRN Pepcid, 20 mg= 50 mL, IV Piggyback, every 12 hr ([facility]) Home abiraterone 500 mg oral tablet, 1000 mg= 2 tab, Oral, Daily atorvastatin 40 mg oral tablet, 40 mg= 1 tab, Oral, Daily Lantus Solostar Pen 100 units/mL subcutaneous solution, 8 units leuprolide 22.5 mg/3 months intramuscular kit, 22.5 mg, IM, every 3 mo predniSONE 5 mg oral delayed release tablet, 5 mg= 1 tab, Oral, Daily Synthroid 137 mcg (0.137 mg) oral tablet Vitamin D3 1000 intl units oral tablet, 25 mcg= 1 tab, Oral, Daily Allergies amoxicillin penicillins Social History Electronic Cigarette/Vaping Electronic Cigarette Use: Unknown/not obtained. Tobacco Never tobacco user Tobacco Use:. Family History Diabetes mellitus: Sister. Heart disease: Father. Lab Results Test Name Test Result Date/Time WBC 8.4 K/mcL 12/20/2022 08:24 EDT RBC 3.60 Million/mcL 12/20/2022 08:24 EDT Hgb 10.7 g/dL 12/20/2022 08:24 EDT Hct 32.2 % 12/20/2022 08:24 EDT MCV 89.4 fL 12/20/2022 08:24 EDT MCH 29.7 pg 12/20/2022 08:24 EDT MCHC 33.2 g/dL 12/20/2022 08:24 EDT RDW-CV 14.9 % 12/20/2022 08:24 EDT Platelets 252 K/mcL 12/20/2022 08:24 EDT MPV 10.1 fL 12/20/2022 08:24 EDT Neutro Auto 78.7 % 12/20/2022 08:24 EDT Lymph Auto 7.9 % 12/20/2022 08:24 EDT [place] Auto 12.6 % 12/20/2022 08:24 EDT Eos, Auto 0.20 % 12/20/2022 08:24 EDT Basophil Auto 0.2 % 12/20/2022 08:24 EDT Imm Gran Auto 0.4 % 12/20/2022 08:24 EDT Neutro Absolute 6.6 K/mcL 12/20/2022 08:24 EDT Lymph Absolute 0.7 K/mcL 12/20/2022 08:24 EDT [place] Absolute 1.1 K/mcL 12/20/2022 08:24 EDT Eos Absolute 0.0 K/mcL 12/20/2022 08:24 EDT Baso Absolute 0.0 K/mcL 12/20/2022 08:24 EDT Imm Gran Absolute 0.03 K/mcL 12/20/2022 08:24 EDT Slide Review Not Indicated 12/20/2022 08:24 EDT Prothrombin Time 12.3 seconds 12/20/2022 08:24 EDT INR 1.2 12/20/2022 08:24 EDT Partial Thromboplastin Time 28.2 seconds 12/20/2022 08:24 EDT Sodium Level 131 mmol/L 12/20/2022 08:24 EDT Potassium Level 3.7 mmol/L 12/20/2022 08:24 EDT Chloride Level 98 mmol/L 12/20/2022 08:24 EDT CO2 22 mmol/L 12/20/2022 08:24 EDT Alk Phos 57 IntlUnit/L 12/20/2022 08:24 EDT AST 29 IntlUnit/L 12/20/2022 08:24 EDT ALT 14 IntlUnit/L 12/20/2022 08:24 EDT BUN 40 mg/dL 12/20/2022 08:24 EDT Glucose Level 167 mg/dL 12/20/2022 08:24 EDT Creatinine Level 1.95 mg/dL 12/20/2022 08:24 EDT BUN/Creat Ratio 20.5 12/20/2022 08:24 EDT eGFR CKD-EPI 37 mL/min/1.73 m2 12/20/2022 08:24 EDT Calcium Level 8.7 mg/dL 12/20/2022 08:24 EDT Protein Total 7.5 g/dL 12/20/2022 08:24 EDT Albumin Level 3.1 g/dL 12/20/2022 08:24 EDT Globulin 4.4 g/dL 12/20/2022 08:24 EDT A/G Ratio 0.7 g/dL 12/20/2022 08:24 EDT Bilirubin Total 1.1 mg/dL 12/20/2022 08:24 EDT Anion Gap 11.0 12/20/2022 08:24 EDT Lactic Acid Lvl 1.5 mmol/L 12/20/2022 08:24 EDT Lipase Level 37 unit/L 12/20/2022 08:24 EDT Magnesium Level 1.9 mg/dL 12/20/2022 08:24 EDT Osmolality 276 mOsm/kg 12/20/2022 08:24 EDT Glucose POC 131 12/20/2022 15:43 EDT Troponin-I HS 149 ng/L 12/20/2022 14:50 EDT Troponin-I HS 159 ng/L 12/20/2022 09:53 EDT Troponin-I HS 141 ng/L 12/20/2022 08:24 EDT Urine Srce Clean Catch 12/20/2022 12:06 EDT UA Color YELLOW. 12/20/2022 12:06 EDT UA Appear CLEAR. 12/20/2022 12:06 EDT UA Glucose NEGATIVE 12/20/2022 12:06 EDT UA Bili NEGATIVE 12/20/2022 12:06 EDT UA Ketones NEGATIVE 12/20/2022 12:06 EDT UA Spec Grav <=1.005 12/20/2022 12:06 EDT UA Blood MODERATE Clinitek 12/20/2022 12:06 EDT UA pH 6.00 12/20/2022 12:06 EDT UA Protein 30 12/20/2022 12:06 EDT UA Urobilinogen 0.2 12/20/2022 12:06 EDT UA Nitrite POSITIVE 12/20/2022 12:06 EDT UA Leuk Est SMALL Clinitek 12/20/2022 12:06 EDT UA Culture Ind?. Yes 12/20/2022 12:06 EDT UA WBC -12/20/2022 12:06 EDT UA RBC 4-6 12/20/2022 12:06 EDT UA Squam Epithelial 0-3 12/20/2022 12:06 EDT UA Bacteria 1+ 12/20/2022 12:06 EDT Adenovirus RespP-BFire Not Detected BF 12/20/2022 11:09 EDT Bordetella parapertussis RespP-BFire Not Detect-BioFire 12/20/2022 11:09 EDT Bordetella pertussis RespP-BFire Not Detect-BioFire 12/20/2022 11:09 EDT Chlamydophila pneumoniae RespP-BFire Not Detect-BioFire 12/20/2022 11:09 EDT Coronavirus 229E (Not COVID-19) RP-BFire Not Detect-BioFire 12/20/2022 11:09 EDT Coronavirus HKU1 (Not COVID-19) RP-BFire Not Detect-BioFire 12/20/2022 11:09 EDT Coronavirus NL63 (Not COVID-19) RP-BFire Not Detect-BioFire 12/20/2022 11:09 EDT Coronavirus OC43 (Not COVID-19) RP-BFire Not Detect-BioFire 12/20/2022 11:09 EDT SARS-CoV-2 (COVID-19) RP-BFire Not Detect-BioFire 12/20/2022 11:09 EDT Human Metapneumonovirus RespP-BFire Not Detect-BioFire 12/20/2022 11:09 EDT Human Rhinovirus/Enterovirus RespP-BFir Not Detect-BioFire 12/20/2022 11:09 EDT Influenza A RespP-BFire Not Detect-BioFire 12/20/2022 11:09 EDT Influenza B RespP-BFire Not Detect-BioFire 12/20/2022 11:09 EDT Mycomplasma pneumoniae RespP-BFire Not Detect-BioFire 12/20/2022 11:09 EDT Parainfluenza Virus 1 RespP-BFire Not Detect-BioFire 12/20/2022 11:09 EDT Parainfluenza Virus 2 RespP-BFire Not Detect-BioFire 12/20/2022 11:09 EDT Parainfluenza Virus 3 RespP-BFire Not Detect-BioFire 12/20/2022 11:09 EDT Parainfluenza Virus 4 RespP-BFire Not Detect-BioFire 12/20/2022 11:09 EDT Respiratory Syncytial Virus RespP-BFire Not Detect-BioFire 12/20/2022 11:09 EDT SARS-CoV or CoV-2 (COVID-19) Ag (Nati) Negative 12/20/2022 06:57 EDT Employed in healthcare? No 12/20/2022 11:09 EDT Employed in healthcare? Unknown 12/20/2022 06:57 EDT Symptomatic as defined by CDC? No 12/20/2022 11:09 EDT Symptomatic as defined by CDC? Unknown 12/20/2022 06:57 EDT Date of onset (Lab) Unknown 12/20/2022 06:57 EDT Hospitalized due to COVID-19? No 12/20/2022 11:09 EDT Hospitalized due to COVID-19? Unknown 12/20/2022 06:57 EDT In ICU? No 12/20/2022 11:09 EDT In ICU? Unknown 12/20/2022 06:57 EDT Group care resident? No 12/20/2022 11:09 EDT Group care resident? Unknown 12/20/2022 06:57 EDT status? Not 12/20/2022 11:09 EDT status? Unknown 12/20/2022 06:57 EDT [1]??ED Provider Note; Sidney Morgan MD 12/20/2022 10:28 EDT Electronically Signed on 12/20/22 04:37 PM Raoul Hernández MD Discharge summary * Raoul Hernández MD: PERFORM Raoul Hernández MD: PERFORM, MODIFY Raoul Hernández MD: MODIFY Event Display: Discharge Note Authored Date: [id number] ROSARIO MOSHER :1955 Age:67 years Sex:Male Visit Date:12/20/2022 Primary Care Physician: NICOLASA FERRELL Admission Information Rosario Mosher is a 67 year old male, with a past medical history significant for metastatic prostate cancer as well as bilateral ureteral stents due to??hydronephrosis from??obstruction??from lymphadenopathy who was admitted to our service??two days ago??for evaluation of nausea and vomiting in the setting of elevated troponins with significant delta and WALTER. We obtained an echocardiogram??on 12/20 which did not show any significant changes, specifically no WMA??from previous echocardiogram done on 12/01.?? CT angio was unrevealing for pulmonary embolism or other acute abnormality. CT abdomen revealed??bilateral ureteral stents in stable satisfactory posiition. His urinalysis was revealing for??positive??leukocyte esterase and WBC which??grew??positive for staph epidermidis. Although this is a possible contaminant, it could explain the patient's nausea and vomiting. Thus, we elected to treat the patient with TMP-SMX for suspected??UTI. 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 We administered IV fluids, PRN zofran, and IV pepcid to treat the patient's nausea and vomiting with good improvement.??At the time of discharge, his kidneyfunction has improved and he reports that he was able to eat duff and malawian toast. He reports that??he did have a bowel movement yesterday, but he continues to??feel constipated??and like his abdomen is full. We will discharge the patient with Miralax, two times a day as needed, and??have him fo llow up with his PCP and??oncology. If his symptoms do not get better, I suspect that the patient'srecent addition of??abiraterone to his medication list may be contributing to his nausea and vomiting. Hospital Course Significant Findings X-Ray: ?? XR Chest 2 Views ?? 12/20/22 09:36:21 EXAM DESCRIPTION: XR Chest 2 Views ?? 12/20/2022 ? INDICATION: HYPOXIA ?? COMPARISON: None ?? FINDINGS: Clear lungs with no focal infiltrate or pulmonary edema. Normal cardiomediastinal contour. Normal pleural margins with no pleural effusion or pneumothorax. Mild spondylotic changes of the dorsal spine. ?? IMPRESSION: No active chest disease. ? JOB #: [id number] Electronically Signed By: ?? Signed By: Jose Angel Shin MD ?? Computed Tomography: ?? CT Angio Chest ?? 12/20/22 10:58:45 EXAM DESCRIPTION: CT Angio Chest ?? 12/20/2022 ?? INDICATION: SOB, +TROP, HX CA; ?PE ?? TECHNIQUE: All CT scans at this facility use at least one of these dose optimization techniques: Automated exposure control; mA and/or kV adjustment per patient size (includes targeted exams where dose is matched to clinical indication); or iterative reconstruction. ?? CT angiography examination of the chest with thin section axial images including sagittal and coronal MPR images performed on a separate workstation under concurrent supervision. ?? 65 mL of Isovue 370 contrast was utilized ?? COMPARISON: None ?? FINDINGS: Normal opacification of the right ventricular outflow tract, main pulmonary arteries and segmental pulmonary arteries with no evidence of pulmonary embolism. No evidence of thoracic aortic dissection. ?? Patchy areas of ground-glass attenuation infiltrate involving both lower lobes as well as the posterior aspect of both upper lobes of uncertain chronicity. Findings may reflect chronic interstitial lung disease although interstitial pneumonitis can not be excluded. No focal consolidation or pulmonary mass. No central endobronchial filling defect identified. ?? Mild bilateral pleural effusions. No pneumothorax. ?? Mildly prominent mediastinal lymph nodes in the right para-aortic region, prevascular space and subcarinal regions measuring up to 10 mm in short axis dimension. Mild bilateral hilar adenopathy. No axillary adenopathy. No pericardial effusion. Normal caliber thoracic aorta. ?? Scattered sclerotic lesions in the visualized spinal axis suspicious for metastatic disease. ?? IMPRESSION: No evidence of pulmonary embolism ?? Patchy nonspecific areas of ground-glass attenuation infiltrate bilaterally most pronounced in the lower lobe distribution of uncertain chronicity. Findings may reflect chronic interstitial lung disease or interstitial pneumonitis ?? Mild bilateral pleural effusions ?? Mediastinal and bilateral hilar adenopathy as detailed above. ?? Small sclerotic lesions in the visualized spinal axis suspicious for metastatic disease. ? JOB #: [id number] Electronically Signed By: ?? Signed By: Jose Angel Shin MD ?? CT Abdomen and Pelvis w/o Contrast ?? 12/20/22 09:16:08 EXAM DESCRIPTION: CT Abdomen and Pelvis w/o Contrast ?? 12/20/2022 ?? INDICATION: ABD PAIN, N/V, HX PROSTATE CA; ? STENT OBSTRUCTION ?? TECHNIQUE: All CT scans at this facility use at least one of these dose optimization techniques: Automated exposure control; mA and/or kV adjustment per patient size (includes targeted exams where dose is matched to clinical indication); or iterative reconstruction. ?? Technique: Axial CT images of the abdomen/pelvis without IV contrast administration ?? COMPARISON: 10/05/2022 ?? FINDINGS: Visualized portions of the liver, spleen, pancreas and adrenal glands demonstrate a normal unenhanced CT appearance. ?? No calcified gallstones in the gallbladder. ?? Bilateral ureteral stents in stable satisfactory position. Mild bilateral hydronephrosis without significant change. No renal calculi on either side. ?? Scattered low-attenuation renal lesions bilaterally likely reflecting cysts which were seen previously. ?? Normal caliber abdominal aorta. ?? Retroperitoneal adenopathy in the left para-aortic and paracaval regions which appears improved. Adenopathy in the left iliac chain region surrounding portions of the left ureteral stent, slightly improved. ?? The prostate gland is mildly enlarged with indentation of the bladder base. ?? No bowel dilatation to suggest obstruction or ileus. No ascites or free intraperitoneal air. Normal appendix. ?? Mild subsegmental atelectasis or scarring in both lung bases. ?? Sclerotic lesions involving the pelvis, sacrum and visualized spinal axis suspicious for metastatic disease ?? IMPRESSION: Bilateral ureteral stents in stable satisfactory position. Mild bilateral hydronephrosis without significant change. ?? Nonobstructive bowel pattern. No free air or bowel inflammatory changes. Normal appendix ?? Retroperitoneal adenopathy as described above, slightly improved since prior study. ?? Scattered sclerotic osseous lesions suspicious for metastatic disease, many of which appear new since prior study. ?? Additional nonacute findings as detailed above. ? JOB #: [id number] Electronically Signed By: ?? Signed By: Jose Angel Shin MD ?? Physical Exam Vitals & Measurements T:??36.4?C ??(Temporal Artery)?? TMIN:??36.4?C ??(Temporal Artery)?? TMAX:??37.6?C ??(Oral)?? HR:??61??(Peripheral)?? RR:??18?? BP:??118/67?? SpO2:??100%?? Pain Score:??0?? O2 Therapy:??Room air?? General: Alert and oriented, well nourished,?No??acute distress Neck: Supple, non-tender,?No??carotid bruits,?No??JVD,?No??lymphadenopathy Lungs:??Clear to auscultation?? Respiration:??Non-Labored Heart:?Normal? rate,?Regular??rhythm,?No??murmur,?No??gallop,?Positive for??bilate ral lower extremity??edema Abdomen: Soft, diffusely tender to palpation, more notable to periumbilical region??Normal? bowel sounds,?No??masses Skin: Skin is warm, dry and pink,?No??rashes,?No??lesions Psychiatric: Cooperative, appropriate mood and affect Procedure/Surgical History ???Stent placement (09/29/2022) Social History Electronic Cigarette/Vaping Electronic Cigarette Use: Unknown/not obtained. Home/Environment Lives with Alone. Living situation: Home/Independent. Home equipment: Cane. Tobacco Never tobacco user Tobacco Use:. Lab Results Last 1 Week?? Chemistry Event Name?? Event Result?? Date/Time?? Sodium Level 132 mmol/L??Low 12/22/22 06:29:00 Potassium Level 3.5 mmol/L 12/22/22 06:29:00 Chloride Level 103 mmol/L 12/22/22 06:29:00 CO2 21 mmol/L??Low 12/22/22 06:29:00 Alk Phos 57 IntlUnit/L 12/20/22 08:24:00 AST 29 IntlUnit/L 12/20/22 08:24:00 ALT 14 IntlUnit/L??Low 12/20/22 08:24:00 BUN 36 mg/dL??High 12/22/22 06:29:00 Glucose Level 145 mg/dL??High 12/22/22 06:29:00 Creatinine Level 1.81 mg/dL??High 12/22/22 06:29:00 BUN/Creat Ratio 19.9 12/22/22 06:29:00 eGFR CKD-EPI 40 mL/min/1.73 m2??Low 12/22/22 06:29:00 Calcium Level 7.9 mg/dL??Low 12/22/22 06:29:00 Protein Total 7.5 g/dL 12/20/22 08:24:00 Albumin Level 3.1 g/dL??Low 12/20/22 08:24:00 Globulin 4.4 g/dL??High 12/20/22 08:24:00 A/G Ratio 0.7 g/dL??Low 12/20/22 08:24:00 Bilirubin Total 1.1 mg/dL 12/20/22 08:24:00 Anion Gap 8 12/22/22 06:29:00 Lactic Acid Lvl 1.5 mmol/L 12/20/22 08:24:00 Lipase Level 37 unit/L 12/20/22 08:24:00 Magnesium Level 1.9 mg/dL 12/20/22 08:24:00 Osmolality 275 mOsm/kg 12/22/22 06:29:00 Glucose POC 137 12/22/22 09:11:00 Troponin-I HS 149 ng/L??Critical 12/20/22 14:50:00 ? Hematology Event Name?? Event Result?? Date/Time?? WBC 7.2 K/mcL 12/22/22 06:29:00 RBC 3.1 Million/mcL??Low 12/22/22 06:29:00 Hgb 9.1 g/dL??Low 12/22/22 06:29:00 Hct 27.7 %??Low 12/22/22 06:29:00 MCV 89.4 fL 12/22/22 06:29:00 MCH 29.4 pg 12/22/22 06:29:00 MCHC 32.9 g/dL 12/22/22 06:29:00 RDW-CV 15.2 %??High 12/22/22 06:29:00 Platelets 204 K/mcL 12/22/22 06:29:00 MPV 9.7 fL 12/22/22 06:29:00 Neutro Auto 69.5 % 12/22/22 06:29:00 Lymph Auto 14.5 %??Low 12/22/22 06:29:00 [place] Auto 14.1 %??High 12/22/22 06:29:00 Eos, Auto 1.1 % 12/22/22 06:29:00 Basophil Auto 0.4 % 12/22/22 06:29:00 Imm Gran Auto 0.4 % 12/22/22 06:29:00 Neutro Absolute 5 K/mcL 12/22/22 06:29:00 Lymph Absolute 1 K/mcL??Low 12/22/22 06:29:00 [place] Absolute 1 K/mcL??High 12/22/22 06:29:00 Eos Absolute 0.1 K/mcL 12/22/22 06:29:00 Baso Absolute 0 K/mcL 12/22/22 06:29:00 Imm Gran Absolute 0.03 K/mcL??High 12/22/22 06:29:00 Slide Review Not Indicated 12/22/22 06:29:00 ? Coagulation/Thrombosis Event Name?? Event Result?? Date/Time?? Prothrombin Time 12.3 seconds??High 12/20/22 08:24:00 INR 1.2??High 12/20/22 08:24:00 Partial Thromboplastin Time 28.2 seconds 12/20/22 08:24:00 ? Urinalysis Event Name?? Event Result?? Date/Time?? Urine Srce Clean Catch 12/20/22 12:06:00 UA Color YELLOW. 12/20/22 12:06:00 UA Appear CLEAR. 12/20/22 12:06:00 UA Glucose NEGATIVE 12/20/22 12:06:00 UA Bili NEGATIVE 12/20/22 12:06:00 UA Ketones NEGATIVE 12/20/22 12:06:00 UA Spec Grav <=1.005 12/20/22 12:06:00 UA Blood MODERATE Clinitek Abnormal 12/20/22 12:06:00 UA pH 6 12/20/22 12:06:00 UA Protein 30 Abnormal 12/20/22 12:06:00 UA Urobilinogen 0.2 12/20/22 12:06:00 UA Nitrite POSITIVE Abnormal 12/20/22 12:06:00 UA Leuk Est SMALL Clinitek Abnormal 12/20/22 12:06:00 UA Culture Ind?. Yes 12/20/22 12:06:00 UA WBC 10-25 Abnormal 12/20/22 12:06:00 UA RBC 4-6 Abnormal 12/20/22 12:06:00 UA Squam Epithelial 0-3 12/20/22 12:06:00 UA Bacteria 1+ Abnormal 12/20/22 12:06:00 ? Microbiology Event Name?? Event Result?? Date/Time?? Urine Culture See Result??Critical 12/20/22 12:06:00 ? All Other Results Event Name?? Event Result?? Date/Time?? Adenovirus RespP-BFire Not Detected BF 12/20/22 11:09:00 Bordetella parapertussis RespP-BFire Not Detect-BioFire 12/20/22 11:09:00 Bordetella pertussis RespP-BFire Not Detect-BioFire 12/20/22 11:09:00 Chlamydophila pneumoniae RespP-BFire Not Detect-BioFire 12/20/22 11:09:00 Coronavirus 229E (Not COVID-19) RP-BFire Not Detect-BioFire 12/20/22 11:09:00 Coronavirus HKU1 (Not COVID-19) RP-BFire Not Detect-BioFire 12/20/22 11:09:00 Coronavirus NL63 (Not COVID-19) RP-BFire Not Detect-BioFire 12/20/22 11:09:00 Coronavirus OC43 (Not COVID-19) RP-BFire Not Detect-BioFire 12/20/22 11:09:00 SARS-CoV-2 (COVID-19) RP-BFire Not Detect-BioFire 12/20/22 11:09:00 Human Metapneumonovirus RespP-BFire Not Detect-BioFire 12/20/22 11:09:00 Human Rhinovirus/Enterovirus RespP-BFir Not Detect-BioFire 12/20/22 11:09:00 Influenza A RespP-BFire Not Detect-BioFire 12/20/22 11:09:00 Influenza B RespP-BFire Not Detect-BioFire 12/20/22 11:09:00 Mycomplasma pneumoniae RespP-BFire Not Detect-BioFire 12/20/22 11:09:00 Parainfluenza Virus 1 RespP-BFire Not Detect-BioFire 12/20/22 11:09:00 Parainfluenza Virus 2 RespP-BFire Not Detect-BioFire 12/20/22 11:09:00 Parainfluenza Virus 3 RespP-BFire Not Detect-BioFire 12/20/22 11:09:00 Parainfluenza Virus 4 RespP-BFire Not Detect-BioFire 12/20/22 11:09:00 Respiratory Syncytial Virus RespP-BFire Not Detect-BioFire 12/20/22 11:09:00 SARS-CoV or CoV-2 (COVID-19) Ag (Nati) Negative 12/20/22 06:57:00 Employed in healthcare? No 12/20/22 11:09:00 Symptomatic as defined by CDC? No 12/20/22 11:09:00 Date of onset (Lab) Unknown 12/20/22 06:57:00 Hospitalized due to COVID-19? No 12/20/22 11:09:00 In ICU? No 12/20/22 11:09:00 Group care resident? No 12/20/22 11:09:00 status? Not 12/20/22 11:09:00 ? 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 CT abdomen unremarkable.??Echo done which did not reveal any significant changes from previous. He received IV??Pepcid and Zofran PRN for his nausea and vomiting. He is feeling slightly better and has been able totolerate protein shakes and??some solid foods.??Continue to work on increasing PO intake at home. ? As a final possibility??he was started on Abiraterone??about a month ago which could be??associatedwith nausea??but his symptoms were abrupt in onset and are much better send this is thought to be less likely 2.??NSTEMI (non-ST elevated myocardial infarction)??I21.4 Patient's course in ED was notable for two elevated troponins with significant delta, however thirdtroponin value was flat. Patient had echocardiogram done 12/20 which did not show any significant changes, specifically no WMA??from previous echocardiogram done on 12/01, thus this clinical picture favors a Type II NSTEMI. 3.??Urinary tract infection??N39.0 Confirmed by urinalysis revealing positive leukocyte esterase and nitrites. Urine culture is positive for staph epidermidis, susceptible to TMP-SMX, although not sure if this is a contaminant. Patient will continue to receive TMP-SMX outpatient for a total dosage of??6 days. 4.??Congestive heart failure??I50.9 EF improved from 46% on 12/01 echocardiogram to 48% on 12/20 echocardiogram. Thought to be stress-induced cardiomyopathy.?? At this point no rales or significant edema is present on exam. Patient wastaken off of 2L nasal cannula. His O2 saturation is now 99% on RA. 5.??CKD (chronic kidney disease)??N18.9 Creatinine??is trending down likely due to administration of IV fluids.??Most recent value is 1.8. Patient's baseline is around 1.5.?? Favor prerenal azotemia as??cause of acute on chronic renal failure. 6.??Diabetes??E11.9 Regular diet, sliding scale insulin 7.??Adenocarcinoma of prostate??C61 Follow up with oncology outpatient. All Diagnoses This Visit Nausea and vomiting NSTEMI (non-ST elevated myocardial infarction) Urinary tract infection Congestive heart failure CKD (chronic kidney disease) Diabetes Adenocarcinoma of prostate Medication Reconciliation New Prescription polyethylene glycol 3350 (MiraLax oral powder for reconstitution)17 Gram Oral (given by mouth) 2 times a day as needed constipation for 14 Days. Refills: 0. ?? sulfamethoxazole-trimethoprim (Bactrim DS 800 mg-160 mg oral tablet)1 tab Oral (given by mouth) 2 times a day for 5 Days. Refills: 0. ?? Unchanged abiraterone (abiraterone 500 mg oral tablet)2 tab Oral (given by mouth) every day. on an empty stomach 1 hour before or 2 hours after eating. ?? acetaminophen (acetaminophen 500 mg oral tablet)2 tab Oral (given by mouth) 3 times a day as neededas needed for pain. ?? atorvastatin (atorvastatin 40 mg oral tablet)1 tab Oral (given by mouth) every day. ?? cholecalciferol (Vitamin D3 1000 intl units oral tablet)1 tab Oral (given by mouth) every day. ?? HYDROcodone-acetaminophen (HYDROcodone-acetaminophen 5 mg-325 mg oral tablet)1 tab Oral (given by mouth) every 8 hours as needed as needed for pain. ?? insulin glargine (Lantus Solostar Pen 100 units/mL subcutaneous solution)10 Units Subcutaneous (under the skin) every day. ?? leuprolide (leuprolide 22.5 mg/3 months intramuscular kit)22.5 Milligrams Intramuscular (in a muscle) every 3 months. ?? levothyroxine (levothyroxine 175 mcg (0.175 mg) oral tablet)1 tab Oral (given by mouth) every day. ?? multivitamin with minerals (Macular Health Formula oral capsule)2 Capsules Oral (given by mouth) every day. ?? predniSONE (predniSONE 5 mg oral delayed release tablet)1 tab Oral (given by mouth) every day. Electronically Signed on 12/22/22 01:49 PM Raoul Hernández MD Electronically Signed on 12/22/22 01:34 PM Jaimie Wynne Patient Care team information Care Team Personnel Name: NICOLASA FERRELL Position: No Access Member Role: Primary Care Physician Address: Address: [address] [place] [address]- Name: Sidney Morgan MD Position: Physician Member Role: ED Physician Address: Address: [address] [place] [id number] Name: Aisha Anand Position: Nurse Member Role: ED Nurse Care Team Related Persons Name: GABY ALCALA
--- OUTSIDE RECORDS SUMMARY | 2023-02-06 13:28 | XMS_ITS | Continuity of Care Document ---
Author Name Unknown Organization [facility] Address [address] [place] [id number] Care Team Providers Care Coater Operator Name Role Phone Nicolasa Valenzuela Primary Care Physic keya Encounter [facility] NBR [id number] Date(s): 12/17/21 - 12/17/[address] [address]- Discharge Disposition: Home or Self Care Attending Physician: Nicolasa Valenzuela Admitting Physician: Nicolasa Valenzuela Results Radiology Reports * Exam Date Time Procedure Performing Provider Status 12/17/21 5:25 PM MRI Spine Cervical w/o Contrast Gloria Vega (Verified) Notes: (MRI Spine Cervical w/o Contrast) Reason For Exam: RADICULOPATHY CERVICAL REGION MRI Spine Cervical w/o Contrast EXAM DESCRIPTION: MRI Spine Cervical w/o Contrast 12/17/2021 INDICATION: RADICULOPATHY CERVICAL REGION TECHNIQUE: Multiplanar MRI examination of the cervical spine utilizing T1, fat-suppressed T2 and fast STIR technique. Patient motion artifact mildly limits evaluation. COMPARISON: Routine radiographs of the cervical spine from 12/13/2021 FINDINGS: Lateral cervical spine alignment is satisfactory C2-3: No focal disc protrusion or significant stenosis. Left-sided facet hypertrophy with left neural foraminal narrowing. No significant right neural foraminal narrowing C3-4: No focal disc protrusion, significant spinal stenosis or neural foraminal narrowing. C4-5: Mild central disc osteophyte complex. No significant spinal stenosis or cord encroachment with AP spinal canal diameter of 8 mm. Left uncovertebral spurring and facet hypertrophy with left neural foraminal narrowing. No significant right neural foraminal narrowing C5-6: Broad-based central disc osteophyte complex. This encroaches on the ventral aspect of the cervical spinal cord. No significant cord deformity. AP spinal canal diameter measures approximately 7.4 mm. Bilateral uncovertebral spurring with bilateral neural foraminal narrowing, left greater than right. C6-7: Broad-based central disc osteophyte complex. This encroaches on the ventral aspect of the cervical spinal cord without significant deformity. AP spinal canal diameter measures approximately 7.7 mm. Bilateral uncovertebral spurring with bilateral neural foraminal narrowing, left greater than right. Left neural foraminal narrowing appears significant. C7-T1: No focal disc protrusion or significant stenosis. Left-sided facet hypertrophy with left neural foraminal narrowing. No significant right neural foraminal narrowing. No significant stenosis in the visualized upper thoracic spine. No intrinsic signal abnormality within the cervical spinal cord to suggest edema or myelomalacia with no evidence of syrinx. Visualized posterior fossa structures are normal in morphology and signal intensity. No suspicious focal marrow lesions with mild degenerative endplate changes at some levels. No vertebral body compression deformity in the cervical region Paraspinal soft tissues are unremarkable. IMPRESSION: Spondylotic changes. Relative spinal stenosis and cord encroachment at C5-6 and C6-7 without significant cord deformity. Neural foraminal narrowing noted at several levels which appears significant on the left at C6-7. Please see above discussion for individual level description. JOB #: [id number] Final Signed by: Jose Angel Shin MD Signed (Electronic Signature): 12/17/2021 8:56 pm MR Cervical spine WO contrast * Jose Angel Shin MD: VERIFY, VERIFY Event Display: Report EXAM DESCRIPTION: MRI Spine Cervical w/o Contrast 12/17/2021 INDICATION: RADICULOPATHY CERVICAL REGION TECHNIQUE: Multiplanar MRI examination of the cervical spine utilizing T1, fat-suppressed T2 and fast STIR technique. Patient motion artifact mildly limits evaluation. COMPARISON: Routine radiographs of the cervical spine from 12/13/2021 FINDINGS: Lateral cervical spine alignment is satisfactory C2-3: No focal disc protrusion or significant stenosis. Left-sided facet hypertrophy with left neural foraminal narrowing. No significant right neural foraminal narrowing C3-4: No focal disc protrusion, significant spinal stenosis or neural foraminal narrowing. C4-5: Mild central disc osteophyte complex. No significant spinal stenosis or cord encroachment with AP spinal canal diameter of 8 mm. Left uncovertebral spurring and facet hypertrophy with left neural foraminal narrowing. No significant right neural foraminal narrowing C5-6: Broad-based central disc osteophyte complex. This encroaches on the ventral aspect of the cervical spinal cord. No significant cord deformity. AP spinal canal diameter measures approximately 7.4 mm. Bilateral uncovertebral spurring with bilateral neural foraminal narrowing, left greater than right. C6-7: Broad-based central disc osteophyte complex. This encroaches on the ventral aspect of the cervical spinal cord without significant deformity. AP spinal canal diameter measures approximately 7.7 mm. Bilateral uncovertebral spurring with bilateral neural foraminal narrowing, left greater than right. Left neural foraminal narrowing appears significant. C7-T1: No focal disc protrusion or significant stenosis. Left-sided facet hypertrophy with left neural foraminal narrowing. No significant right neural foraminal narrowing. No significant stenosis in the visualized upper thoracic spine. No intrinsic signal abnormality within the cervical spinal cord to suggest edema or myelomalacia with no evidence of syrinx. Visualized posterior fossa structures are normal in morphology and signal intensity. No suspicious focal marrow lesions with mild degenerative endplate changes at some levels. No vertebral body compression deformity in the cervical region Paraspinal soft tissues are unremarkable. IMPRESSION: Spondylotic changes. Relative spinal stenosis and cord encroachment at C5-6 and C6-7 without significant cord deformity. Neural foraminal narrowing noted at several levels which appears significant on the left at C6-7. Please see above discussion for individual level description. JOB #: [id number] Final Signed by: Jose Angel Shin MD Signed (Electronic Signature): 12/17/2021 8:56 pm Patient Care team information Personnel Name: Nicolasa Valenzuela Address: Address: [address] [place], [place] [address]
--- OUTSIDE RECORDS SUMMARY | 2023-02-06 13:28 | XMS_ITS | Continuity of Care Document ---
Author Name Unknown Organization [facility] Address [address] [place] [id number] Care Team Providers Care Corporate Travel Expert Name Role Phone VICTORIA FERRELL Primary Care Physician ( [phone] Encounter [facility] [facility] NBR [id number] Date(s): 11/03/22 - 11/03/[address] [id number]- [place] Encounter Diagnosis Acute kidney failure, unspecified(Final) - Discharge Disposition: Home or Self Care Attending Physician: VICTORIA FERRELL Admitting Physician: VICTORIA FERRELL Referring Physician: VICTORIA FERRELL Allergies, Adverse Reactions, Alerts Substance Reaction Severity Status amoxicillin Moderate Active Assessment and Plan Future Appointments Future Scheduled Tests Radiology* US Lower Ext Venous Duplex Right 09/08/22 * CT Abdomen and Pelvis w/ + w/o Contrast 09/26/22 * CT Abdomen and Pelvis w/o Contrast 09/28/22 Medications allopurinol 200 mg oral tablet 200 mg = 1 tab, Oral, Daily, # 30 tab, 0 Refill(s) Start Date: 10/05/22 Status: Ordered atorvastatin 40 mg oral tablet 40 mg = 1 tab, Oral, Daily, # 30 tab, 0 Refill(s) Start Date: 10/05/22 Status: Ordered Lantus Solostar Pen 100 units/mL subcutaneous solution 8 units =, 15 unknown unit, 0 Refill(s) Start Date: 12/29/21 Status: Ordered Synthroid 137 mcg (0.137 mg) oral tablet 90 tab, 0 Refill(s) Start Date: 12/29/21 Status: Ordered Vitamin D3 1000 intl units oral tablet 25 mcg = 1 tab, Oral, Daily, # 30 tab, 0 Refill(s) Start Date: 10/05/22 Status: Ordered Results Laboratory List Name Date Comprehensive Metabolic Pane l (Comprehensive Metabolic Profile, Non-Fasting (CMP) ([id number])) 11/03/22 Most recent to oldest [Reference Range]: 1 BUN [8-26 mg/dL] 44 mg/dL *HI* (11/03/22 1:44 PM) Glucose Level [74-106 mg/dL] 149 mg/dL *HI* (11/03/22 1:44 PM) Potassium Level [3.5-5.1 mmol/L] 5.3 mmo l/L *HI* (11/03/22 1:44 PM) AST [15-41 IntlUnit/L] 23 IntlUnit/L (11/03/22 1:44 PM) ALT [17-63 IntlUnit/L] 15 IntlUnit/L *LOW* (11/03/22 1:44 PM) Osmolality [275-295 mOsm/kg] 275 mOsm/kg (11/03/22 1:44 PM) Sodium Level [134-143 mmol/L] 130 mmol/L *LOW* (11/03/22 1:44 PM) Calcium Level [8.9-10.3 mg/dL] 8.8 mg/dL *LOW* (11/03/22 1:44 PM) Albumin Level [3.5-5.0 g/dL] 3.5 g/dL (11/03/22 1:44 PM) Protein Total [6.5-8.1 g/dL] 8.2 g/dL *HI* (11/03/22 1:44 PM) Bilirubin Total [0.2-1.2 mg/dL] 0.5 mg/d L (11/03/22 1:44 PM) Alk Phos [38-130 IntlUnit/L] 73 IntlUnit /L (11/03/22 1:44 PM) CO2 [22-32 mmol/L] 21 mmol/L *LOW* (11/03/22 1:44 PM) Chloride Level [98-111 mmol/L] 102 mmol/ L (11/03/22 1:44 PM) A/G Ratio [1.0-2.5 g/dL] 0.7 g/dL *LOW* (11/03/22 1:44 PM) BUN/Creat Ratio [8.0-20.0] 24.6 *HI* (11/03/22 1:44 PM) Globulin [2.3-3.5 g/dL] 4.7 g/dL *HI* (11/03/22 1:44 PM) Creatinine Level [0.61-1.24 mg/dL] 1.79 mg/dL *HI* (11/03/22 1:44 PM) Anion Gap [3.0-12.0] 7.0 (11/03/22 1:44 PM) eGFR CKD-EPI [>=60 mL/min/1.73 m2] 41 mL /min/1.73 m2 *LOW* (11/03/22 1:44 PM) Social History Social History Type Response Tobacco Tobacco use status u nknown Tobacco Use:. Sex Patient Care team information Care Team Personnel Name: VICTORIA FERRELL Position: No Access Member Role: Primary Care Physician Address: Address: [address] [place], [place] [address] Care Team Related Persons Name: GABY ALCALA
--- OUTSIDE RECORDS SUMMARY | 2023-02-06 13:28 | XMS_ITS | Continuity of Care Document ---
Author Name Unknown Organization [facility] Address [address] [place] [id number] Care Team Providers Care Marriage Counselor Name Role Phone VICTORIA FERRELL Primary Care Physician Encounter [facility] [facility] NBR [id number] Date(s): 11/28/22 - 11/28/22 [facility] [address] [place] [address]- [place] Encounter Diagnosis Acute kidney failure, unspecified(Final) - Discharge Disposition: Home or Self Care Attending Physician: VICTORIA FERRELL Admitting Physician: VICTORIA FERRELL Referring Physician: VICTORIA FERRELL Allergies, Adverse Reactions, Alerts Substance Reaction Severity Status amoxicillin Moderate Active penicillins Unknown Active Assessment and Plan Future Appointments Future Scheduled Tests Radiology* US Lower Ext Venous Duplex Right 09/08/22 * CT Abdomen and Pelvis w/ + w/o Contrast 09/26/22 * CT Abdomen and Pelvis w/o Contrast 09/28/22 Medications abiraterone 500 mg oral tablet 1,000 mg = 2 tab, Oral, Daily, on an empty stomach 1 hour before or 2 hours after eating, # 60 tab,0 Refill(s) Start Date: 11/29/22 Status: Ordered allopurinol 200 mg oral tablet 200 mg = 1 tab, Oral, Daily, # 30 tab, 0 Refill(s) Start Date: 10/05/22 Status: Ordered atorvastatin 40 mg oral tablet 40 mg = 1 tab, Oral, Daily, # 30 tab, 0 Refill(s) Start Date: 10/05/22 Status: Ordered bicalutamide 50 mg oral tablet 50 mg = 1 tab, Oral, every 24 hr, # 30 tab, 0 Refill(s) Start Date: 11/29/22 Status: Ordered HYDROcodone-acetaminophen 5 mg-325 mg oral tablet 1 tab, Oral, every 4 hr, PRN as needed for pain, 0 Refill(s) Start Date: 11/29/22 Status: Ordered Lantus Solostar Pen 100 units/mL subcutaneous solution 8 units =, 15 unknown unit, 0 Refill(s) Start Date: 12/29/21 Status: Ordered predniSONE 5 mg oral delayed release tablet 5 mg = 1 tab, Oral, Daily, # 30 tab, 0 Refill(s) Start Date: 11/29/22 Status: Ordered Synthroid 137 mcg (0.137 mg) oral tablet 90 tab, 0 Refill(s) Start Date: 12/29/21 Status: Ordered Vitamin D3 1000 intl units oral tablet 25 mcg = 1 tab, Oral, Daily, # 30 tab, 0 Refill(s) Start Date: 10/05/22 Status: Ordered Problem List Condition Confirmation Course Effective Dates Status Health Status Informant Adenocarcinoma of prostate Confirmed Active Adenoma of colon Confirmed Active Diabetes Confirmed Active Gout Confirmed Active Hypercholesterolemia Confirmed Active High blood pressure Confirmed Active Procedures Procedure Date Related Diagnosis Body Site Status Stent placement 09/28/22 Completed Results Laboratory List Name Date Comprehensive Metabolic Pane l (Comprehensive Metabolic Profile, Non-Fasting (CMP) ([id number])) 11/28/22 Most recent to oldest [Reference Range]: 1 BUN [8-26 mg/dL] 41 mg/dL *HI* (11/28/22 1:12 PM) Glucose Level [74-106 mg/dL] 214 mg/dL *HI* (11/28/22 1:12 PM) Potassium Level [3.5-5.1 mmol/L] 4.5 mmo l/L (11/28/22 1:12 PM) AST [15-41 IntlUnit/L] 23 IntlUnit/L (11/28/22 1:12 PM) ALT [17-63 IntlUnit/L] 15 IntlUnit/L *LOW* (11/28/22 1:12 PM) Osmolality [275-295 mOsm/kg] 288 mOsm/kg (11/28/22 1:12 PM) Sodium Level [134-143 mmol/L] 136 mmol/L (11/28/22 1:12 PM) Calcium Level [8.9-10.3 mg/dL] 9.3 mg/dL (11/28/22 1:12 PM) Albumin Level [3.5-5.0 g/dL] 3.6 g/dL (11/28/22 1:12 PM) Protein Total [6.5-8.1 g/dL] 7.2 g/dL (11/28/22 1:12 PM) Bilirubin Total [0.2-1.2 mg/dL] 0.6 mg/d L (11/28/22 1:12 PM) Alk Phos [38-130 IntlUnit/L] 71 IntlUnit /L (11/28/22 1:12 PM) CO2 [22-32 mmol/L] 24 mmol/L (11/28/22 1:12 PM) Chloride Level [98-111 mmol/L] 102 mmol/ L (11/28/22 1:12 PM) A/G Ratio [1.0-2.5 g/dL] 1.0 g/dL (11/28/22 1:12 PM) BUN/Creat Ratio [8.0-20.0] 25.8 *HI* (11/28/22 1:12 PM) Globulin [2.3-3.5 g/dL] 3.6 g/dL *HI* (11/28/22 1:12 PM) Creatinine Level [0.61-1.24 mg/dL] 1.59 mg/dL *HI* (11/28/22 1:12 PM) Anion Gap [3.0-12.0] 10.0 (11/28/22 1:12 PM) eGFR CKD-EPI [>=60 mL/min/1.73 m2] 47 mL /min/1.73 m2 *LOW* (11/28/22 1:12 PM) Social History Social History Type Response Tobacco Tobacco use status u nknown Tobacco Use:. Sex Patient Care team information Care Team Personnel Name: VICTORIA FERRELL Position: No Access Member Role: Primary Care Physician Address: Address: [address] [place] [address]- Care Team Related Persons Name: GABY ALCALA
--- OUTSIDE RECORDS SUMMARY | 2023-02-06 13:28 | XMS_ITS | Continuity of Care Document ---
Author Name Unknown Organization [facility] Address [address] [place] [address] Care Team Providers Care Graduate Teaching Associate Name Role Phone VICTORIA FERRELL Primary Care Physician Encounter [facility] NBR [id number] Date(s): 12/22/22 - 12/22/22 [facility] [address] [place] [address] [place] Discharge Disposition: Home Allergies, Adverse Reactions, Alerts Substance Reaction Severity Status amoxicillin 1 Rash Moderate Active penicillins 2 Unknown Active 1rash as adult 2had allergic reaction to amox as adult. told not to take PCN Assessment and Plan Future Appointments Future Scheduled [...] BID, # 10 tab, 0 Refill(s), Pharmacy: [facility], 177.8, cm, 12/20/22 14:46:00 EDT, Height/Length [...] constipation, # 527 g, 0 Refill(s), Pharmacy: [facility], 177.8, cm, 12/20/22 14:46:00 EDT, Height/Length [...] Body Site Status Stent placement 09/28/22 Completed Social History Social History Type Response Tobacco Never tobacco user T obacco Use:. Sex Patient Care team information Care Team Personnel Name: VICTORIA FERRELL Position: No Access Member Role: Primary Care Physician Address: Address: [address] [place] [address]- Care Team Related Persons Name: GABY ALCALA
--- OUTSIDE RECORDS SUMMARY | 2023-02-06 13:28 | XMS_ITS | Continuity of Care Document ---
Author Name Unknown Organization [facility] Address [address] [place] [address] Care Team Providers Care Capacitor Repairer Name Role Phone VICTORIA FERRELL Primary Care Physician Encounter [facility]_[place] FIN NBR [id number] Date(s): 01/18/23 - 01/18/[address] [address]- Encounter Diagnosis Nocturia(Discharge Diagnosis) - 01/18/23 Lower back pain(Discharge Diagnosis) - 01/18/23 Nocturia(Final) - Low back pain, unspecified(Final) - Discharge Disposition: Home or Self Care Attending Physician: Estefany Jasso MD Admitting Physician: Estefany Jasso MD Referring Physician: Estefany Jasso MD Allergies, Adverse Reactions, Alerts Substance Reaction Severity Status amoxicillin 1 Rash Moderate Active 1rash as adult Assessment and Plan Future Appointments Future Scheduled Tests Radiology* US Lower Ext Venous Duplex Right 09/08/22 * CT Abdomen and Pelvis w/ + w/o Contrast 09/26/22 * CT Abdomen and Pelvis w/o Contrast 09/28/22 Medications abiraterone 500 mg oral tablet 1,000 mg = 2 tab, Oral, Daily, 0 Refill(s) Start Date: 11/29/22 Status: Ordered acetaminophen 500 mg oral tablet 1,000 mg = 2 tab, Oral, TID, PRN as needed for pain, 0 Refill(s) Start Date: 12/20/22 Status: Ordered atorvastatin 40 mg oral tablet 40 mg = 1 tab, Oral, every night at bedtime, 0 Refill(s) Start Date: 10/05/22 Status: Ordered HYDROcodone-acetaminophen 5 mg-325 mg oral tablet 1 tab, Oral, every 8 hr, PRN as needed for pain, 0 Refill(s) Start Date: 12/20/22 Status: Ordered Lantus Solostar Pen 100 units/mL subcutaneous solution 8 units =, Subcutaneous, Daily, 0 Refill(s) Start Date: 12/29/21 Status: Ordered levothyroxine 175 mcg (0.175 mg) oral tablet 175 mcg = 1 tab, Oral, Daily, 0 Refill(s) Start Date: 12/20/22 Status: Ordered MiraLax oral powder for reconstitution 17 g, Oral, BID, PRN constipation, # 527 g, 0 Refill(s), Pharmacy: [facility], 177.8, cm, 12/20/22 14:46:00 EDT, Height/Length Dosing, 85.1, kg, 12/20/22 14:46:00 EDT, Weight Dosing Start Date: 12/22/22 Stop Date: 01/05/23 Status: Ordered predniSONE 5 mg oral delayed release tablet 5 mg = 1 tab, Oral, Daily, 0 Refill(s) Start Date: 11/29/22 Status: Ordered tamsulosin 0.4 mg oral capsule 0.4 mg = 1 cap, Oral, Daily, 0 Refill(s) Start Date: 12/30/22 Status: Ordered Vitamin D3 1000 intl units oral tablet 25 mcg = 1 tab, Oral, Daily, 0 Refill(s) Start Date: 10/05/22 Status: Ordered Problem List Condition Confirmation Course Effective Dates Status Health Status Informant Adenocarcinoma of prostate Confirmed Active Adenoma of colon Confirmed Active CAD - Coronary artery disease Confirmed Active Carcinoma, metastatic Confirmed Active Cardiomyopathy Confirmed Active CKD (chronic kidney disease) Confirmed Active Congestive heart failure Confirmed Active Diabetes Confirmed Active Gout Confirmed Active HLD - Hyperlipidemia Confirmed Active Hypercholesterolemia Confirmed Active High blood pressure Confirmed Active Hypothyroidism Confirmed Active [place]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 Mitral regurgitation 1 Confirmed Active Urinary frequency Confirmed Active 1moderate Procedures Procedure Date Related Diagnosis Body Site Status Cystoscopy with Stent Placem ent (Bilateral) 1 01/06/23 Completed Echocardiogram 2 12/19/22 Complete d Operation on neck 3 03/05/22 Compl eted Cataract surgery of both eyes Completed Cystoscopic insertion of ure teric stent 4 Completed 1auto-populated from documented surgical case 2EF 48% 32 dics replaced 4for hydronephrosis from lymphadenopathy Results Orders for Microbiology Reports Name Date Urine Culture 01/18/23 Microbiology Reports TEST:Urine Culture STATUS:Order in Progress BODY SITE: SOURCE:Urine, Clean Catch COLLECTED DATE/TIME:01/18/23 3:36 PM PRELIMINARY REPORT >100,000 cfu/ml Mixed Gram Positive Carol Too young to evaluate, reincubate Social History Social History Type Response Tobacco Never tobacco user T obacco Use:. Sex Implantable Device List Procedure Provider Procedure Date Device Type Site Cystoscopy with Stent Placement Unknown 01/06/23 Unkn own Ureter L Device Identifier Serial Number Lot or Batch Number Manufacturing Date Expiration Date Distinct Identification Code MRI Safety Implantable Status Assigning Authority Unknown Unknown [id number] Unknown 08/25/25 Unknown Unknown Active Unknown Unknown Unknown [id number] Unknown 08/25/25 Unknown Unknown Active Unknown Patient Care team information Care Team Personnel Name: VICTORIA FERRELL Position: No Access Member Role: Primary Care Physician Address: Address: [address] [place] [address]- Care Team Related Persons Name: SANTA MATA Name: GABY ALCALA
--- OUTSIDE RECORDS SUMMARY | 2023-02-06 13:28 | XMS_ITS | Continuity of Care Document ---
Author Name Unknown Organization [facility] Address [address] [place] [address] Care Team Providers Care Friction Saw Operator Name Role Phone Nicolasa Mcgee Primary Care Physic keya Encounter [facility]_[place] FIN NBR [id number] Date(s): 09/08/22 - 09/08/[address] [address]- Encounter Diagnosis Elevated prostate specific antigen [PSA](Final) - Hypothyroidism, unspecified(Final) - Mixed hyperlipidemia(Final) - Localized edema(Final) - Low back pain, unspecified(Final) - Discharge Disposition: Home or Self Care Attending Physician: Nicolasa Mcgee Admitting Physician: Nicolasa Mcgee Referring Physician: Nicolasa Mcgee Assessment and Plan Future Scheduled Tests Laboratory* Vitamin D 25 Hydroxy Level 09/09/22 * PE+Interp(Rfx RASHAD),S LC 09/09/22 * CBC w/ Manual Diff 09/09/22 * Comprehensive Metabolic Panel 09/09/22 * HLA B 27 Disease Association LC 09/09/22 * PTH Intact 09/09/22 * IgG 09/09/22 * IgM 09/09/22 Radiology* US Lower Ext Venous Duplex Right 09/08/22 Medications diclofenac potassium 50 mg oral tablet 60 EA, TAKE 1 TABLET BY MOUTH TWICE DAILY NEEDED FOR PAIN, 0 Refill(s) Start Date: 12/29/21 Status: Ordered Lantus Solostar Pen 100 units/mL subcutaneous solution 15 unknown unit, 0 Refill(s) Start Date: 12/29/21 Status: Ordered lisinopril 10 mg oral tablet 21 EA, TAKE 1 TABLET BY MOUTH ONCE DAILY FOR KIDNEY PROTECTION, 0 Refill(s) Start Date: 12/29/21 Status: Ordered metFORMIN 500 mg oral tablet 360 tab, 0 Refill(s) Start Date: 12/29/21 Status: Ordered simvastatin 40 mg oral tablet 90 tab, 0 Refill(s) Start Date: 12/29/21 Status: Ordered Synthroid 137 mcg (0.137 mg) oral tablet 90 tab, 0 Refill(s) Start Date: 12/29/21 Status: Ordered Results Laboratory List Name Date Comprehensive Metabolic Pane l (Comprehensive Metabolic Profile, Non-Fasting (CMP) (CPT-88065)) 09/08/22 Lipid Panel (Lipid Profile (CPT-69411)) 09/08/22 PSA Diagnostic (PSA (Diagnostic) (CPT-84 153)) 09/08/22 Thyroid Stimulating Hormone (Thyroid Sti mulating Hormone (TSH) (CPT-38660)) 09/08/22 Most recent to oldest [Reference Range]: 1 BUN [8-26 mg/dL] 47 mg/dL *HI* (09/08/22 11:55 AM) Cholesterol Total [129-209 mg/dL] 122 mg /dL *LOW* (09/08/22 11:55 AM) LDL 64.9 *NA* (09/08/22 11:55 AM) Glucose Level [74-106 mg/dL] 88 mg/dL (09/08/22 11:55 AM) Potassium Level [3.5-5.1 mmol/L] 5.1 mmo l/L (09/08/22 11:55 AM) HDL [40-80 mg/dL] 37 mg/dL *LOW* (09/08/22 11:55 AM) AST [15-41 IntlUnit/L] 32 IntlUnit/L (09/08/22 11:55 AM) ALT [17-63 IntlUnit/L] 17 IntlUnit/L (09/08/22 11:55 AM) Osmolality [275-295 mOsm/kg] 280 mOsm/kg (09/08/22 11:55 AM) Sodium Level [134-143 mmol/L] 134 mmol/L (09/08/22 11:55 AM) Chol/HDL 3.3 *NA* (09/08/22 11:55 AM) Triglycerides [10-150 mg/dL] 100 mg/dL (09/08/22 11:55 AM) Calcium Level [8.9-10.3 mg/dL] 9.2 mg/dL (09/08/22 11:55 AM) Albumin Level [3.5-5.0 g/dL] 3.4 g/dL *LOW* (09/08/22 11:55 AM) Protein Total [6.5-8.1 g/dL] 9.1 g/dL *HI* (09/08/22 11:55 AM) Bilirubin Total [0.2-1.2 mg/dL] 0.7 mg/d L (09/08/22 11:55 AM) Alk Phos [38-130 IntlUnit/L] 60 IntlUnit /L (09/08/22 11:55 AM) CO2 [22-32 mmol/L] 23 mmol/L (09/08/22 11:55 AM) PSA Total Diagnostic [<=4.000 ng/mL] 76. 616 ng/mL 1 *HI* (09/08/22 11:55 AM) TSH [0.45-5.33 mIntlUnit/mL] 8.40 mIntlU nit/mL *HI* (09/08/22 11:55 AM) Chloride Level [98-111 mmol/L] 104 mmol/ L (09/08/22 11:55 AM) A/G Ratio 0.6 *NA* (09/08/22 11:55 AM) BUN/Creat Ratio [8.0-20.0] 16.4 (09/08/22 11:55 AM) Globulin 5.7 *NA* (09/08/22 11:55 AM) Creatinine Level [0.61-1.24 mg/dL] 2.87 mg/dL *HI* (09/08/22 11:55 AM) Anion Gap [3.0-12.0] 7.0 (09/08/22 11:55 AM) eGFR CKD-EPI [>=60 mL/min/1.73 m2] 23 mL /min/1.73 m2 *LOW* (09/08/22 11:55 AM) 1Interpretive Data: The concentration of Prostate specific antigen determined from different manufactures and assay methods will vary due to differences in the method and reagent specificity. Values obtained by different methods cannot be used interchangeably and may not be comparable. This is a [employer] [place]??paramagnetic particle, chemiluminescent immunoassay. Radiology Reports * Exam Date Time Procedure Performing Provider Status 09/08/22 11:43 AM XR Pelvis 1 or 2 Views [place], Raine; Modified Notes: (XR Pelvis 1 or 2 Views) Reason For Exam: ELEVATED PROSTATE SPECIFIC ANTIGEN XR Pelvis 1 or 2 Views ADDENDUM Images reviewed. Sclerosis of the sacroiliac joint. Possible ankylosis. THIS DOCUMENT HAS BEEN ELECTRONICALLY SIGNED BY CHINEDU AGUILLON MD on 09/08/2022 12:06 PM Final Signed by: Chinedu Aguillon MD Signed (Electronic Signature): 09/08/2022 12:06 pm XR Pelvis 1 or 2 Views PROCEDURE INFORMATION: Exam: XR Pelvis Exam date and time: 09/08/2022 12:03 PM Age: 66 years old Clinical indication: Elevated prostate specific antigen (psa); Elevated prostate specific antigen (psa) TECHNIQUE: Imaging protocol: Radiologic exam of the pelvis. Views: 1 or 2 view. COMPARISON: CR XR LUMBAR SPINE 2 OR 3 VIEW 09/08/2022 12:01 PM FINDINGS: Bones/joints: osseous structures of the pelvis without an acute process. rami are intact. Sacroiliac joints without separation/diastases/fracture. Iliac bones unremarkable/noncontributory. Degenerative changes within the visualized portions of the caudal aspect of the lumbar spine. Moderate degenerative changes within the right and left hips. Soft tissues: See Bones/joints finding. IMPRESSION: 1. Moderate degenerative changes within the right and left hips. 2. No acute process. THIS DOCUMENT HAS BEEN ELECTRONICALLY SIGNED BY CHINEDU AGUILLON MD on 09/08/2022 12:04 PM Final Signed by: Chinedu Aguillon MD Signed (Electronic Signature): 09/08/2022 12:04 pm * Exam Date Time Procedure Performing Provider Status 09/08/22 11:43 AM XR Spine Lumbosacral 2 or 3 Views Pros per, [place]; Auth (Verified) Notes: (XR Spine Lumbosacral 2 or 3 Views) Reason For Exam: R97.20-Elevated prostate specific antigen [PSA];R97.20-Elevated prostate specific antigen [PSA] XR Spine Lumbosacral 2 or 3 Views PROCEDURE INFORMATION: Exam: XR Lumbosacral Spine Exam date and time: 09/08/2022 12:01 PM Age: 66 years old Clinical indication: Elevated prostate specific antigen (psa); Elevated prostate specific antigen (psa); Low back pain, unspecified; Low back pain, unspecified; Additional info: R97.20-elevated prostate specific antigen (psa) TECHNIQUE: Imaging protocol: Radiologic exam of the lumbosacral spine. Views: 2 or 3 views. COMPARISON: No relevant prior studies available. FINDINGS: Bones/joints: Mild degenerative disc disease reflected as a decrease in disc space height and anterior endplate osteophytosis. Findings most pronounced L3-L4. No spondylolisthesis. No pars defect. No fracture. Sclerosis of the sacroiliac joints. Possible ankylosis. Soft tissues: Unremarkable. IMPRESSION: Mild degenerative disc disease. No osteoblastic lesions visualized.. Sclerosis of the sacroiliac joints. Possible ankylosis. THIS DOCUMENT HAS BEEN ELECTRONICALLY SIGNED BY CHINEDU AGUILLON MD on 09/08/2022 12:06 PM Final Signed by: Chinedu Aguillon MD Signed (Electronic Signature): 09/08/2022 12:06 pm * Exam Date Time Procedure Performing Provider Status 09/08/22 11:37 AM US Lower Ext Venous Duplex Right Julio César Wood; Auth (Verified) Notes: (US Lower Ext Venous Duplex Right) Reason For Exam: R60.0-Localized edema;R60.0- Localized edema US Lower Ext Venous Duplex Right PROCEDURE INFORMATION: Exam: US Duplex Right Lower Extremity Veins, Limited Exam date and time: 09/08/2022 11:13 AM Age: 66 years old Clinical indication: Localized edema; Additional info: R60.0-localized edema TECHNIQUE: Imaging protocol: Real-time duplex ultrasound of the right extremity with 2-D cheatham scale, color Doppler flow and spectral waveform analysis including responses to compression and other maneuvers (when performed) with image documentation. Limited exam was focused on the right lower extremity veins. COMPARISON: No relevant prior studies available. FINDINGS: Right deep veins: Unremarkable. The common femoral, femoral, proximal profunda femoral and popliteal veins are patent without thrombus. Normal Doppler waveforms. Normal compressibility and/or augmentation response. Right superficial veins: Unremarkable. Saphenofemoral junction is patent without thrombus. Soft tissues: Unremarkable. IMPRESSION: No evidence of deep vein thrombosis. THIS DOCUMENT HAS BEEN ELECTRONICALLY SIGNED BY CHINEDU AGUILLON MD on 09/08/2022 12:07 PM Final Signed by: Chinedu Aguillon MD Signed (Electronic Signature): 09/08/2022 12:07 pm Social History Social History Type Response Tobacco Tobacco use status u nknown Tobacco Use:. Sex Patient Care team information Care Team Personnel Name: Nicolasa Mcgee Position: Physician Member Role: Primary Care Physician Address: Address: [address] [place], [place] [address]
--- OUTSIDE RECORDS SUMMARY | 2023-02-06 13:28 | XMS_ITS | Continuity of Care Document ---
Author Name Unknown Organization [facility] Address [address] [place] [address] Care Team Providers Care Cut Off Machine Operator Name Role Phone Nicolasa Valenzuela Primary Care Physic keya Encounter [facility] NBR [id number] Date(s): 12/13/21 - 12/13/[address] [id number]- [place] Discharge Disposition: Home or Self Care Attending Physician: Nicolasa Valenzuela Admitting Physician: Nicolasa Valenzuela Referring Physician: Nicolasa Valenzuela Results Radiology Reports * Exam Date Time Procedure Performing Provider Status 12/13/21 11:08 AM XR Spine Cervical 4 or 5 Views Harleen Nelson (Verified) Notes: (XR Spine Cervical 4 or 5 Views) Reason For Exam: pain in left shoulder XR Spine Cervical 4 or 5 Views PROCEDURE INFORMATION: Exam: XR Cervical Spine Exam date and time: 12/13/2021 11:08 AM Age: 66 years old Clinical indication: Other: RT shoulder pain, intermittently. ; Additional info: Pain in left shoulder TECHNIQUE: Imaging protocol: Radiologic exam of the cervical spine. Views: 4 or 5 views. COMPARISON: No relevant prior studies available. FINDINGS: Bones/joints: Multilevel degenerative change with disc space narrowing and bilateral foraminal encroachment. Anatomic alignment. Stigmata of remote trauma involving the T1 spinous process. Soft tissues: Unremarkable. IMPRESSION: Multilevel degenerative change with disc space narrowing and bilateral foraminal encroachment. THIS DOCUMENT HAS BEEN ELECTRONICALLY SIGNED BY KIKO OSORIO MD on 12/13/2021 11:33 AM Final Signed by: Kiko Osorio MD Signed (Electronic Signature): 12/13/2021 11:33 am XR Cervical spine 4 or 5 Views * Kiko Osorio MD: VERIFY, VERIFY Event Display: Report PROCEDURE INFORMATION: Exam: XR Cervical Spine Exam date and time: 12/13/2021 11:08 AM Age: 66 years old Clinical indication: Other: RT shoulder pain, intermittently. ; Additional info: Pain in left shoulder TECHNIQUE: Imaging protocol: Radiologic exam of the cervical spine. Views: 4 or 5 views. COMPARISON: No relevant prior studies available. FINDINGS: Bones/joints: Multilevel degenerative change with disc space narrowing and bilateral foraminal encroachment. Anatomic alignment. Stigmata of remote trauma involving the T1 spinous process. Soft tissues: Unremarkable. IMPRESSION: Multilevel degenerative change with disc space narrowing and bilateral foraminal encroachment. THIS DOCUMENT HAS BEEN ELECTRONICALLY SIGNED BY KIKO OSORIO MD on 12/13/2021 11:33 AM Final Signed by: Kiko Osorio MD Signed (Electronic Signature): 12/13/2021 11:33 am Patient Care team information Personnel Name: Nicolasa Valenzuela Address: Address: [address] [facility] [place], [place] [address]
--- OUTSIDE RECORDS SUMMARY | 2023-02-06 13:28 | XMS_ITS | Continuity of Care Document ---
Author Name Unknown Organization [facility] Address [address] [place] [address] Care Team Providers Care Audioprosthologist Name Role Phone VICTORIA FERRELL Primary Care Physician Encounter [facility]_[place] FIN NBR [id number] Date(s): 01/18/23 - 01/18/23 [facility] [address] [place] [address]- [place] Discharge Disposition: Home or Self Care Attending Physician: RODRIGUEZ Abad, Ph.D., CRISELDA Admitting Physician: RODRIGUEZ Abad, Ph.D., CRISELDA Referring Physician: RODRIGUEZ Abad, Ph.D., CRISELDA Allergies, Adverse Reactions, Alerts Substance Reaction Severity [...] constipation, # 527 g, 0 Refill(s), Pharmacy: [facility], 177.8, cm, 12/20/22 14:46:00 EDT, [...] blood pressure Confirmed Active Hypothyroidism Confirmed Active [place]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 Mitral regurgitation [...] dics replaced 4for hydronephrosis from lymphadenopathy Results Radiology Reports * Exam Date Time Procedure Performing Provider Status 01/18/23 2:28 PM BD Bone Density DEXA Axial Skeleton Lizzette, Khristine; Auth (Verified) Notes: (BD Bone Density DEXA Axial Skeleton) Reason For Exam: ARE RELATED BONE LOSS BD Bone Density DEXA Axial Skeleton EXAM DESCRIPTION: BD Bone Density DEXA Axial Skeleton 01/18/2023 INDICATION: ARE RELATED BONE LOSS TECHNIQUE: Bone Densitometry (DEXA) was performed. COMPARISON: None FINDINGS: Average bone mineral density of the lumbar spine from L1-4 is 1.026 g per sq cm corresponding to a T-score of -0.6. No significant bone loss in the lumbar region. Bone mineral density in the left femoral neck is 0.859 g per sq cm corresponding to a T-score of -0.5. No significant bone loss in this region. Bone mineral density involving the distal 1/3 of the left forearm is 0.737 g per sq cm corresponding to a T-score of -1.5. Findings consistent with osteopenia. Increased fracture risk. FRAX-10 year probability of fracture: Not available IMPRESSION: Findings consistent with osteopenia. Increased fracture risk. JOB #: [id number] Final Signed by: Jose Angel Shin MD Signed (Electronic Signature): 01/18/2023 3:00 pm Social History Social History Type Response Tobacco Never tobacco user T obacco Use:. Sex Implantable Device List Procedure Provider Procedure Date Device Type Site Cystoscopy with Stent Placement Unknown 01/06/23 Unkn own Ureter L Device Identifier Serial Number Lot or Batch Number Manufacturing Date Expiration Date Distinct Identification Code MRI Safety Implantable Status Assigning Authority Unknown Unknown [id number] Unknown 08/25/25 Unknown Unknown Active Unknown Unknown Unknown [id number] Unknown 08/25/25 Unknown Unknown Active Unknown Patient Care team information Care Team Personnel Name: VICTORIA FERRELL Position: No Access Member Role: Primary Care Physician Address: Address: [address] [place], [place] [address] Care Team Related Persons Name: SANTA MATA Name: GABY ALCALA
--- OUTSIDE RECORDS SUMMARY | 2023-02-06 13:28 | XMS_ITS | Continuity of Care Document ---
Author Name Unknown Organization [facility] Address [address] [place] [address] Care Team Providers Care Guide Foreign Tour Name Role Phone Nicolasa Castle Primary Care Physician Encounter [facility]_[place] FIN NBR [id number] Date(s): 10/10/22 - 10/10/22 [facility] [address] [place] [address]- [place] Encounter Diagnosis Acute kidney failure, unspecified(Final) - Discharge Disposition: Home or Self Care Attending Physician: Nicolasa Castle Admitting Physician: Nicolasa Castle Referring Physician: Nicolasa Castle Allergies, Adverse Reactions, Alerts Substance Reaction Severity Status amoxicillin Moderate Active Assessment and Plan Future Scheduled Tests Radiology* US Lower Ext [...] 0 Refill(s) Start Date: 10/05/22 Status: Ordered cefpodoxime 200 mg oral tablet 200 mg = 1 tab, Oral, every 12 hr, X 7 days, # 14 tab, 0 Refill(s), 10/13/22 12:43:00 AM CDT, Pharmacy: [facility], 179, cm, 10/05/22 23:17:00 EDT, Height/Length Dosing, 87, kg, 10/05/22 23:17:00 EDT, Weight Dosing Start Date: 10/06/22 Stop Date: 10/13/22 Status: Ordered Lantus Solostar Pen 100 units/mL subcutaneous solution 8 units =, 15 unknown unit, 0 Refill(s) Start Date: 12/29/21 Status: Ordered predniSONE 10 mg oral tablet 10 mg = 1 tab, Oral, Daily, continue per Nicolasa Castle after appt, # 10 tab, 0 Refill(s), 10/18/22 12:41:00 AM CDT, Pharmacy: [facility], 179, cm, 10/05/22 23:17:00 EDT, Height/Length Dosing, 87, kg, 10/05/22 23:17:00 EDT, Weight Dosing Start Date: 10/06/22 Stop Date: 10/18/22 Status: Ordered Synthroid 137 mcg (0.137 mg) oral tablet 90 tab, 0 Refill(s) Start Date: 12/29/21 Status: Ordered Vitamin D3 1000 intl units oral tablet 25 mcg = 1 tab, Oral, Daily, # 30 tab, 0 Refill(s) Start Date: 10/05/22 Status: Ordered Results Laboratory List Name Date Comprehensive Metabolic Pane l (Comprehensive Metabolic Profile, Non-Fasting (CMP) (CPT-28208)) 10/10/22 Magnesium Level (Magnesium, Serum (CPT-8 4963)) 10/10/22 Phosphorus Level (Phosphorous, Serum (CP T-68615)) 10/10/22 Most recent to oldest [Reference Range]: 1 BUN [8-26 mg/dL] 42 mg/dL *HI* (10/10/22 9:08 AM) Glucose Level [74-106 mg/dL] 174 mg/dL *HI* (10/10/22 9:08 AM) Potassium Level [3.5-5.1 mmol/L] 4.9 mmo l/L (10/10/22 9:08 AM) AST [15-41 IntlUnit/L] 30 IntlUnit/L (10/10/22 9:08 AM) ALT [17-63 IntlUnit/L] 19 IntlUnit/L (10/10/22 9:08 AM) Osmolality [275-295 mOsm/kg] 277 mOsm/kg (10/10/22 9:08 AM) Sodium Level [134-143 mmol/L] 131 mmol/L *LOW* (10/10/22 9:08 AM) Calcium Level [8.9-10.3 mg/dL] 9.9 mg/dL (10/10/22 9:08 AM) Phosphorus Level [2.5-4.9 mg/dL] 3.3 mg/ dL (10/10/22 9:08 AM) Albumin Level [3.5-5.0 g/dL] 3.3 g/dL *LOW* (10/10/22 9:08 AM) Protein Total [6.5-8.1 g/dL] 8.9 g/dL *HI* (10/10/22 9:08 AM) Magnesium Level [1.8-2.5 mg/dL] 1.9 mg/d L (10/10/22 9:08 AM) Bilirubin Total [0.2-1.2 mg/dL] 0.4 mg/d L (10/10/22 9:08 AM) Alk Phos [38-130 IntlUnit/L] 65 IntlUnit /L (10/10/22 9:08 AM) CO2 [22-32 mmol/L] 20 mmol/L *LOW* (10/10/22 9:08 AM) Chloride Level [98-111 mmol/L] 100 mmol/ L (10/10/22 9:08 AM) A/G Ratio 0.6 *NA* (10/10/22 9:08 AM) BUN/Creat Ratio [8.0-20.0] 20.7 *HI* (10/10/22 9:08 AM) Globulin 5.6 *NA* (10/10/22 9:08 AM) Creatinine Level [0.61-1.24 mg/dL] 2.03 mg/dL *HI* (10/10/22 9:08 AM) Anion Gap [3.0-12.0] 11.0 (10/10/22 9:08 AM) eGFR CKD-EPI [>=60 mL/min/1.73 m2] 35 mL /min/1.73 m2 *LOW* (10/10/22 9:08 AM) Social History Social History Type Response Tobacco Tobacco use status u nknown Tobacco Use:. Sex Patient Care team information Care Team Personnel Name: Nicolasa Castle Position: Physician Member Role: Primary Care Physician Address: Address: [address] [place] [address]- Care Team Related Persons Name: GABY ALCALA
--- OUTSIDE RECORDS SUMMARY | 2023-02-06 13:28 | XMS_ITS | Continuity of Care Document ---
Author Name Unknown Organization [facility] Address [address] [place] [id number] Care Team Providers Care Assistant Maintenance Manager Name Role Phone VICTORIA FERRELL Primary Care Physician Encounter [facility] NBR [id number] Date(s): 01/18/23 - 01/18/23 [facility] [address] [place] [address]- [place] Discharge Disposition: Home or [...] blood pressure Confirmed Active Hypothyroidism Confirmed Active [place]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 Mitral regurgitation [...] 32 dics replaced 4for hydronephrosis from lymphadenopathy Social History Social History Type Response Tobacco Never tobacco user T obacco Use:. Sex Implantable Device List Procedure Provider Procedure Date Device Type Site Cystoscopy with Stent Placement Unknown 01/06/23 Unkn own Ureter L Device Identifier Serial Number Lot or Batch Number Manufacturing Date Expiration Date Distinct Identification Code MRI Safety Implantable Status Assigning Authority Unknown Unknown [id number] Unknown 08/25/25 Unknown Unknown Active Unknown Unknown Unknown [id number] Unknown 08/25/25 Unknown Unknown Active Unknown Patient Care team information Care Team Personnel Name: VICTORIA FERRELL Position: No Access Member Role: Primary Care Physician Address: Address: [address] [place] [address]- Care Team Related Persons Name: SANTA MATA Name: GABY ALCALA
--- OUTSIDE RECORDS SUMMARY | 2023-02-06 13:28 | XMS_ITS | Continuity of Care Document ---
Author Name Unknown Organization [facility] Address [address] [place] [id number] Care Team Providers Care Night Warehouse Selector Name Role Phone Nicolasa Castle Primary Care Physician [phone] Encounter [facility] FIN NBR [id number] Date(s): 10/18/22 - 10/18/22 [facility] [address] [place] [address]- [place] Encounter Diagnosis Acute kidney [...] Pane l (Comprehensive Metabolic Profile, Non-Fasting (CMP) ([id number])) 10/18/22 Most recent to oldest [Reference Range]: 1 BUN [8-26 mg/dL] 45 mg/dL *HI* (10/18/22 1:36 PM) Glucose Level [74-106 mg/dL] 207 mg/dL *HI* (10/18/22 1:36 PM) Potassium Level [3.5-5.1 mmol/L] 4.9 mmo l/L (10/18/22 1:36 PM) AST [15-41 IntlUnit/L] 24 IntlUnit/L (10/18/22 1:36 PM) ALT [17-63 IntlUnit/L] 22 IntlUnit/L (10/18/22 1:36 PM) Osmolality [275-295 mOsm/kg] 273 mOsm/kg *LOW* (10/18/22 1:36 PM) Sodium Level [134-143 mmol/L] 127 mmol/L *LOW* (10/18/22 1:36 PM) Calcium Level [8.9-10.3 mg/dL] 9.0 mg/dL (10/18/22 1:36 PM) Albumin Level [3.5-5.0 g/dL] 3.3 g/dL *LOW* (10/18/22 1:36 PM) Protein Total [6.5-8.1 g/dL] 8.3 g/dL *HI* (10/18/22 1:36 PM) Bilirubin Total [0.2-1.2 mg/dL] 0.4 mg/d L (10/18/22 1:36 PM) Alk Phos [38-130 IntlUnit/L] 73 IntlUnit /L (10/18/22 1:36 PM) CO2 [22-32 mmol/L] 20 mmol/L *LOW* (10/18/22 1:36 PM) Chloride Level [98-111 mmol/L] 95 mmol/L *LOW* (10/18/22 1:36 PM) A/G Ratio 0.7 *NA* (10/18/22 1:36 PM) BUN/Creat Ratio [8.0-20.0] 19.9 (10/18/22 1:36 PM) Globulin 5.0 *NA* (10/18/22 1:36 PM) Creatinine Level [0.61-1.24 mg/dL] 2.26 mg/dL *HI* (10/18/22 1:36 PM) Anion Gap [3.0-12.0] 12.0 (10/18/22 1:36 PM) eGFR CKD-EPI [>=60 mL/min/1.73 m2] 31 mL /min/1.73 m2 *LOW* (10/18/22 1:36 PM) Social History Social History Type Response Tobacco Tobacco use status u nknown Tobacco Use:. Sex Patient Care team information Care Team Personnel Name: Nicolasa Castle Position: Physician Member Role: Primary Care Physician Address: Address: [address] [place] [address]- Care Team Related Persons Name: GABY ALCALA
--- OUTSIDE RECORDS SUMMARY | 2023-02-06 13:28 | XMS_ITS | Continuity of Care Document ---
Author Name Unknown Organization [facility] Address [address] [place] [address] Care Team Providers Care Knitted Cloth Examiner Name Role Phone Nicolasa Valenzuela Primary Care Physic keya Encounter [facility] NBR [id number] Date(s): 12/29/21 - 12/29/21 [facility] [address] [place] [address]- Encounter Diagnosis Cervical radiculopathy(Discharge Diagnosis) - 12/29/21 Cervical spondylosis(Discharge Diagnosis) - 12/29/21 Discharge Disposition: Home or Self Care Attending Physician: Brendan Leon DO Functional Status 12/29/21 Other exposure to Infectious Disease Non e Medications diclofenac potassium 50 mg oral tablet [...] 0 Refill(s) Start Date: 12/29/21 Status: Ordered Vital Signs Most recent to oldest [Reference Range]: 1 Temperature Temporal Artery [36-38 Deg C ] 36.4 Deg C (12/29/21 2:21 PM) Peripheral Pulse Rate [60-100 bpm] 78 bp m (12/29/21 2:21 PM) Blood Pressure [90-140/60-90 mmHg] 140/7 6mmHg (12/29/21 2:21 PM) Weight 90.2 kg (12/29/21 2:21 PM) Weight Measured (lbs) 198.857 lb (12/29/21 2:21 PM) [place] Body Weight Calculated 74.15 kg (12/29/21 2:21 PM) Height 179.07 cm (12/29/21 2:21 PM) Height/Length Measured (inches) 70.5 inc h (12/29/21 2:21 PM) BSA Measured 2.12 m2 (12/29/21 2:21 PM) Body Mass Index 28.13 kg/m2 (12/29/21 2:21 PM) Social History Social History Type Response Tobacco Tobacco use status u nknown Tobacco Use:. Sex Patient Care team information Personnel Name: Nicolasa Valenzuela Address: Address: [address] [facility] [place] [address]
--- OUTSIDE RECORDS SUMMARY | 2023-02-06 13:28 | XMS_ITS | Continuity of Care Document ---
Author Name Unknown Organization [facility] Amb[facility] Address [address] [place] [address] Care Team Providers Care Diabetes Trainer Name Role Phone VICTORIA FERRELL Primary Care Physician Encounter [facility] NBR [id number] Date(s): 01/18/23 - 01/18/23 [facility] [address] [place] [address]- [place] Encounter Diagnosis Lower back pain(Discharge Diagnosis) - 01/18/23 Nocturia(Discharge Diagnosis) - 01/18/23 Discharge Disposition: Home or Self Care Attending Physician: Estefany Jasso MD Referring Physician: VICTORIA FERRELL Allergies, Adverse Reactions, [...] constipation, # 527 g, 0 Refill(s), Pharmacy: [facility], 177.8, cm, 12/20/22 14:46:00 EDT, [...] blood pressure Confirmed Active Hypothyroidism Confirmed Active [place]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 Mitral regurgitation [...] dics replaced 4for hydronephrosis from lymphadenopathy Results Laboratory List Name Date .Urinalysis POCT 01/18/23 Most recent to oldest [Reference Range]: 1 Method of Collect POC Clean Catch *NA* (01/18/23 3:56 PM) Specific [place], Ur POC 1.015 *NA* (01/18/23 3:56 PM) Specimen Color POC [Yellow] Yellow (01/18/23 3:56 PM) Glucose, Urine POC 100 mg/dL *NA* (01/18/23 3:56 PM) Bilirubin, Urine POC [Negative] Negative (01/18/23 3:56 PM) Ketones, Urine POC [Negative mg/dL] Nega tive mg/dL (01/18/23 3:56 PM) Blood, Urine POC [Negative] Large *ABN* (01/18/23 3:56 PM) pH, Urine POC 6.5 *NA* (01/18/23 3:56 PM) Protein, Urine POC [Negative mg/dL] 100 mg/dL *ABN* (01/18/23 3:56 PM) Urobilinogen, Urine POC [0.2] 0.2 (01/18/23 3:56 PM) Nitrite, Urine POC [Negative] Positive *ABN* (01/18/23 3:56 PM) Leuk Esterase, Urine POC [Negative] Larg e *ABN* (01/18/23 3:56 PM) Clarity, Urine POC [Clear] Clear (01/18/23 3:56 PM) Social History Social History Type Response Tobacco Never tobacco user T obacco Use:. Sex Implantable Device List Procedure Provider Procedure Date Device Type Site Cystoscopy with Stent Placement Unknown 01/06/23 Unkn own Ureter L Device Identifier Serial Number Lot or Batch Number Manufacturing Date Expiration Date Distinct Identification Code MRI Safety Implantable Status Assigning Authority Unknown Unknown [id number] Unknown 08/25/25 Unknown Unknown Active Unknown Unknown Unknown [id number] Unknown 08/25/25 Unknown Unknown Active Unknown Patient Care team information Care Team Personnel Name: VICTORIA FERRELL Position: No Access Member Role: Primary Care Physician Address: Address: [address] [place], [place] [address] Care Team Related Persons Name: SANTA MATA Name: GABY ALCALA
--- OUTSIDE RECORDS SUMMARY | 2023-02-06 13:28 | XMS_ITS | Continuity of Care Document ---
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 Mitral regurgitation [...] from lymphadenopathy Results Laboratory List Name Date Automated Diff 01/18/23 CBC w/ Diff 01/18/23 Comprehensive Metabolic Panel 01/18/23 PSA Diagnostic 01/18/23 Testosterone Level Total 01/18/23 Most recent to oldest [Reference Range]: 1 WBC [4.8-10.8 K/mcL] 8.5 K/mcL (01/18/23: PM) RBC [4.70-6.10 Million/mcL] 3.68 Million /mcL *LOW* (01/18/23: PM) Neutro Auto [42.2-75.2 %] 76.8 % *HI* (01/18/23: PM) Lymph Auto [20.5-51.1 %] 11.5 % *LOW* (01/18/23: PM) [place] Auto [1.7-9.3 %] 6.8 % (01/18/23: PM) Basophil Auto [0.0-0.8 %] 1.1 % *HI* (01/18/23: PM) BUN [8-26 mg/dL] 36 mg/dL *HI* (01/18/23: PM) Glucose Level [74-106 mg/dL] 238 mg/dL *HI* (01/18/23: PM) Potassium Level [3.5-5.1 mmol/L] 5.0 mmo l/L (01/18/23: PM) Baso Absolute [0.0-0.2 K/mcL] 0.1 K/mcL (01/18/23: PM) MCV [80.0-94.0 fL] 91.6 fL (01/18/23: PM) Testosterone Total [175-781 ng/dL] 33 ng /dL *LOW* (01/18/23: PM) AST [15-41 IntlUnit/L] 19 IntlUnit/L (01/18/23: PM) ALT [17-63 IntlUnit/L] 13 IntlUnit/L *LOW* (01/18/23: PM) MCHC [32.0-37.0 g/dL] 32.6 g/dL (01/18/23: PM) Osmolality [275-295 mOsm/kg] 281 mOsm/kg (01/18/23 PM) Sodium Level [134-143 mmol/L] 132 mmol/L *LOW* (01/18/23 PM) Lymph Absolute [1.2-3.4 K/mcL] 1.0 K/mcL *LOW* (01/18/23 PM) Hct [42.0-52.0 %] 33.7 % *LOW* (01/18/23 PM) Calcium Level [8.9-10.3 mg/dL] 9.2 mg/dL (01/18/23 PM) [place] Absolute [0.1-0.6 K/mcL] 0.6 K/mcL (01/18/23 PM) Albumin Level [3.5-5.0 g/dL] 3.4 g/dL *LOW* (01/18/23 PM) Protein Total [6.5-8.1 g/dL] 7.7 g/dL (01/18/23 PM) MCH [27.0-31.0 pg] 29.9 pg (01/18/23 PM) Neutro Absolute [1.4-6.5 K/mcL] 6.5 K/mc L (01/18/23 PM) Bilirubin Total [0.2-1.2 mg/dL] 0.6 mg/d L (01/18/23 PM) Hgb [14.0-18.0 g/dL] 11.0 g/dL *LOW* (01/18/23 PM) Alk Phos [38-130 IntlUnit/L] 68 IntlUnit /L (01/18/23 PM) MPV [7.4-10.4 fL] 9.5 fL (01/18/23: PM) Platelets [130-400 K/mcL] 367 K/mcL (01/18/23 PM) CO2 [22-32 mmol/L] 25 mmol/L (01/18/23 PM) Eos Absolute [0.0-0.2 K/mcL] 0.3 K/mcL *HI* (01/18/23 PM) PSA Total Diagnostic [<=4.000 ng/mL] 49. 524 ng/mL 1 *HI* (01/18/23 1:23 PM) Chloride Level [98-111 mmol/L] 100 mmol/ L (01/18/23 1: PM) RDW-CV [11.5-14.5 %] 14.2 % (01/18/23 1:23 PM) A/G Ratio [1.0-2.5 g/dL] 0.8 g/dL *LOW* (01/18/23: PM) BUN/Creat Ratio [8.0-20.0] 21.6 *HI* (01/18/23: PM) Globulin [2.3-3.5 g/dL] 4.3 g/dL *HI* (01/18/23: PM) Imm Gran Absolute [0.00-0.02 K/mcL] 0.02 K/mcL (01/18/23: PM) Imm Gran Auto [0.0-0.5 %] 0.2 % (01/18/23 1:23 PM) Slide Review Not Indicated (01/18/23: PM) Creatinine Level [0.61-1.24 mg/dL] 1.67 mg/dL *HI* (01/18/23: PM) Anion Gap [3.0-12.0] 7.0 (01/18/23 1: PM) Eos, Auto [0.00-3.00 %] 3.60 % *HI* (01/18/23: PM) eGFR CKD-EPI [>=60 mL/min/1.73 m2] 44 mL /min/1.73 m2 *LOW* (01/18/23 1:23 PM) 1Interpretive Data: The concentration of Prostate specific antigen determined from different manufactures and assay methods will vary due to differences in the method and reagent specificity. Values obtained by different methods cannot be used interchangeably and may not be comparable. This is a iDi[employer] Access [employer]??paramagnetic particle, chemiluminescent immunoassay. Social History Social History Type Response Tobacco Never tobacco user T obacco Use:. Sex Implantable Device List Procedure Provider Procedure Date Device Type Site Cystoscopy with Stent Placement Unknown 01/06/23 Unkn own Ureter L Device Identifier Serial Number Lot or Batch Number Manufacturing Date Expiration Date Distinct Identification Code MRI Safety Implantable Status Assigning Authority Unknown Unknown [id number] Unknown 08/25/25 Unknown Unknown Active Unknown Unknown Unknown [id number] Unknown 08/25/25 Unknown Unknown Active Unknown Patient Care team information Care Team Personnel Name: VICTORIA FERRELL Position: No Access Member Role: Primary Care Physician Address: Address: [address] [place] [address]- Care Team Related Persons Name: SANTA MATA Name: GABY ALCALA
--- OUTSIDE RECORDS SUMMARY | 2023-02-06 13:28 | XMS_ITS | Continuity of Care Document ---
Author Name Unknown Organization [facility] Address [address] [place] [address] Care Team Providers Care Tailings Worker Name Role Phone VICTORIA FERRELL Primary Care Physician Encounter [facility] FIN NBR [id number] Date(s): 11/16/22 - 11/16/[address] [phone]- [place] Encounter Diagnosis Acute kidney failure, unspecified(Final) - Hypothyroidism, unspecified(Final) - Discharge Disposition: Home or Self [...] Pane l (Comprehensive Metabolic Profile, Non-Fasting (CMP) ([id number]-[id number])) 11/16/22 Thyroid Stimulating Hormone (Thyroid Sti mulating Hormone (TSH) ([id number]-12511)) 11/16/22 Most recent to oldest [Reference Range]: 1 BUN [8-26 mg/dL] 38 mg/dL *HI* (11/16/22 1:07 PM) Glucose Level [74-106 mg/dL] 143 mg/dL *HI* (11/16/22 1:07 PM) Potassium Level [3.5-5.1 mmol/L] 5.6 mmo l/L *HI* (11/16/22 1:07 PM) AST [15-41 IntlUnit/L] 25 IntlUnit/L (11/16/22 1:07 PM) ALT [17-63 IntlUnit/L] 19 IntlUnit/L (11/16/22 1:07 PM) Osmolality [275-295 mOsm/kg] 272 mOsm/kg *LOW* (11/16/22 1:07 PM) Sodium Level [134-143 mmol/L] 130 mmol/L *LOW* (11/16/22 1:07 PM) Calcium Level [8.9-10.3 mg/dL] 9.3 mg/dL (11/16/22 1:07 PM) Albumin Level [3.5-5.0 g/dL] 3.7 g/dL (11/16/22 1:07 PM) Protein Total [6.5-8.1 g/dL] 8.0 g/dL (11/16/22 1:07 PM) Bilirubin Total [0.2-1.2 mg/dL] 0.4 mg/d L (11/16/22 1:07 PM) Alk Phos [38-130 IntlUnit/L] 74 IntlUnit /L (11/16/22 1:07 PM) CO2 [22-32 mmol/L] 25 mmol/L (11/16/22 1:07 PM) TSH [0.45-5.33 mcIntlUnit/mL] 8.11 mcInt lUnit/mL *HI* (11/16/22 1:07 PM) Chloride Level [98-111 mmol/L] 98 mmol/L (11/16/22 1:07 PM) A/G Ratio [1.0-2.5 g/dL] 0.9 g/dL *LOW* (11/16/22 1:07 PM) BUN/Creat Ratio [8.0-20.0] 22.0 *HI* (11/16/22 1:07 PM) Globulin [2.3-3.5 g/dL] 4.3 g/dL *HI* (11/16/22 1:07 PM) Creatinine Level [0.61-1.24 mg/dL] 1.73 mg/dL *HI* (11/16/22 1:07 PM) Anion Gap [3.0-12.0] 7.0 (11/16/22 1:07 PM) eGFR CKD-EPI [>=60 mL/min/1.73 m2] 42 mL /min/1.73 m2 *LOW* (11/16/22 1:07 PM) Social History Social History Type Response Tobacco Tobacco use status u nknown Tobacco Use:. Sex Patient Care team information Care Team Personnel Name: VICTORIA FERRELL Position: No Access Member Role: Primary Care Physician Address: Address: [address] [place] [address]- Care Team Related Persons Name: GABY ALCALA
--- OUTSIDE RECORDS SUMMARY | 2023-02-06 13:28 | XMS_ITS | Continuity of Care Document ---
Author Name Unknown Organization [facility] Address [address] [place] [address] Care Team Providers Care Supervisor Record Press Name Role Phone Nicolasa Mcgee Primary Care Physic keya Encounter [facility] FIN NBR [id number] Date(s): 09/13/22 - 09/13/[address] [address]- Encounter Diagnosis Acute kidney failure, unspecified(Final) - Discharge Disposition: Home or Self Care Attending Physician: Nicolasa Mcgee Admitting Physician: Nicolasa Mcgee Referring Physician: Nicolasa Mcgee Assessment and Plan Diagnostic Tests Pending * Free K+L Lt Chains,Qn,S LC 09/13/22 Future Scheduled Tests Laboratory* Vitamin D 25 [...] Status: Ordered Results Laboratory List Name Date Phosphorus Level 09/13/22 Most recent to oldest [Reference Range]: 1 Phosphorus Level [2.5-4.9 mg/dL] 4.9 mg/ dL (09/13/22 8:55 AM) Social History Social History Type Response Tobacco Tobacco use status u nknown Tobacco Use:. Sex Patient Care team information Care Team Personnel Name: Nicolasa Mcgee Position: Physician Member Role: Primary Care Physician Address: Address: [address] [facility] [place], [place] [address]
--- OUTSIDE RECORDS SUMMARY | 2023-02-06 13:28 | XMS_ITS | Continuity of Care Document ---
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) - 12/08/22 Bilateral hydronephrosis(Discharge Diagnosis) - 12/09/22 Discharge Disposition: Home or Self Care Attending Physician: Dahiana Devlin APRN Referring Physician: VICTORIA FERRELL Allergies, Adverse Reactions, Alerts Substance Reaction Severity Status amoxicillin Moderate Active penicillins Unknown Active Assessment and Plan Future Scheduled Tests [...] tab,0 Refill(s) Start Date: 11/29/22 Status: Ordered atorvastatin 40 mg oral tablet [...] 0 Refill(s) Start Date: 12/08/22 Status: Ordered predniSONE 5 mg oral delayed [...] 09/28/22 Completed Results Laboratory List Name Date .Urinalysis POCT 12/08/22 Most recent to oldest [Reference Range]: 1 Method of Collect POC Clean Catch *NA* (12/08/22 3:25 PM) Specific [place], Ur POC 1.010 *NA* (12/08/22 3:25 PM) Specimen Color POC [Yellow] Yellow (12/08/22 3:25 PM) Glucose, Urine POC Negative mg/dL *NA* (12/08/22 3:25 PM) Bilirubin, Urine POC [Negative] Negative (12/08/22 3:25 PM) Ketones, Urine POC [Negative mg/dL] Nega tive mg/dL (12/08/22 3:25 PM) Blood, Urine POC [Negative] Small *ABN* (12/08/22 3:25 PM) pH, Urine POC 5.5 *NA* (12/08/22 3:25 PM) Protein, Urine POC [Negative mg/dL] 30 m g/dL *ABN* (12/08/22 3:25 PM) Urobilinogen, Urine POC [0.2] 0.2 (12/08/22 3:25 PM) Nitrite, Urine POC [Negative] Negative (12/08/22 3:25 PM) Leuk Esterase, Urine POC [Negative] Smal l *ABN* (12/08/22 3:25 PM) Clarity, Urine POC [Clear] Clear (12/08/22 3:25 PM) Vital Signs Most recent to oldest [Reference Range]: 1 Temperature Temporal Artery [36-38 Deg C ] 35.6 Deg C *LOW* (12/08/22 11:40 AM) Peripheral Pulse Rate [60-100 bpm] 70 bp m (12/08/22 11:40 AM) Blood Pressure [90-140/60-90 mmHg] 108/5 4mmHg (12/08/22 11:40 AM) Weight 81.65 kg (12/08/22 11:40 AM) Weight Measured (lbs) 180.007 lb (12/08/22 11:40 AM) [place] Body Weight Calculated 73 kg (12/08/22 11:40 AM) Height 177.80 cm (12/08/22 11:40 AM) Height/Length Measured (inches) 70 inch (12/08/22 11:40 AM) BSA Measured 2.01 m2 (12/08/22 11:40 AM) Body Mass Index 25.83 kg/m2 (12/08/22 11:40 AM) Social History Social History Type Response Tobacco Never tobacco user T obacco Use:. Sex Patient Care team information Care Team Personnel Name: VICTORIA FERRELL Position: No Access Member Role: Primary Care Physician Address: Address: [address] [place] [address]- Care Team Related Persons Name: GABY ALCALA Address: Home
--- OUTSIDE RECORDS SUMMARY | 2023-02-06 13:28 | XMS_ITS | Continuity of Care Document ---
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 Name Role Phone Nicolasa Mcgee Primary Care Physic keya Encounter LTTL_[place] FIN NBR [id number] Date(s): 09/28/22 - 09/28/22 [facility] [address] [place] [address]- Encounter Diagnosis Other immunodeficiencies with predominantly antibody defects(Final) - Acute kidney failure, unspecified(Final) - Elevated prostate specific antigen [PSA](Final) - Discharge Disposition: Home or Self Care Attending Physician: Nicolasa Mcgee Admitting Physician: Nicolasa Mcgee Referring Physician: Nicolsaa Mcgee Assessment and Plan Future Scheduled Tests Radiology* US Lower Ext Venous Duplex Right 09/08/22 * CT Abdomen and Pelvis w/ + w/o Contrast 09/26/22 * CT Abdomen and Pelvis w/o Contrast 09/28/22 Medications diclofenac potassium 50 mg oral tablet [...] Pane l (Comprehensive Metabolic Profile, Non-Fasting (CMP) (CPT-26414)) 09/28/22 Most recent to oldest [Reference Range]: 1 BUN [8-26 mg/dL] 78 mg/dL *HI* (09/28/22 9:02 AM) Glucose Level [74-106 mg/dL] 129 mg/dL *HI* (09/28/22 9:02 AM) Potassium Level [3.5-5.1 mmol/L] 5.1 mmo l/L (09/28/22 9:02 AM) AST [15-41 IntlUnit/L] 32 IntlUnit/L (09/28/22 9:02 AM) ALT [17-63 IntlUnit/L] 19 IntlUnit/L (09/28/22 9:02 AM) Osmolality [275-295 mOsm/kg] 286 mOsm/kg (09/28/22 9:02 AM) Sodium Level [134-143 mmol/L] 130 mmol/L *LOW* (09/28/22 9:02 AM) Calcium Level [8.9-10.3 mg/dL] 8.7 mg/dL *LOW* (09/28/22 9:02 AM) Albumin Level [3.5-5.0 g/dL] 3.1 g/dL *LOW* (09/28/22 9:02 AM) Protein Total [6.5-8.1 g/dL] 9.0 g/dL *HI* (09/28/22 9:02 AM) Bilirubin Total [0.2-1.2 mg/dL] 0.8 mg/d L (09/28/22 9:02 AM) Alk Phos [38-130 IntlUnit/L] 55 IntlUnit /L (09/28/22 9:02 AM) CO2 [22-32 mmol/L] 17 mmol/L *LOW* (09/28/22 9:02 AM) Chloride Level [98-111 mmol/L] 101 mmol/ L (09/28/22 9:02 AM) A/G Ratio 0.5 *NA* (09/28/22 9:02 AM) BUN/Creat Ratio [8.0-20.0] 13.7 (09/28/22 9:02 AM) Globulin 5.9 *NA* (09/28/22 9:02 AM) Creatinine Level [0.61-1.24 mg/dL] 5.70 mg/dL 1 *CRIT* (09/28/22 9:02 AM) Anion Gap [3.0-12.0] 12.0 (09/28/22 9:02 AM) eGFR CKD-EPI [>=60 mL/min/1.73 m2] 10 mL /min/1.73 m2 *LOW* (09/28/22 9:02 AM) 1Result Comment: Called & read back by Nicolasa Akbar_ at 0935_ result verified by repeat analysis Radiology Reports * Exam Date Time Procedure Performing Provider Status 09/28/22 10:[address] Abdomen and Pelvi s w/o Contrast eJnny Looney; Matt (Verified) Notes: (CT Abdomen and Pelvis w/o Contrast) Reason For Exam: N17.9-Acute kidney failure, unspecified;N17.9-Acute kidney failure, unspecified CT Abdomen and Pelvis w/o Contrast EXAM DESCRIPTION: CT Abdomen and Pelvis w/o Contrast 2022 INDICATION: N17.9-ACUTE KIDNEY FAILURE, UNSPECIFIED TECHNIQUE: All CT scans at this facility use at least one of these dose optimization techniques: Automated exposure control; mA and/or kV adjustment per patient size (includes targeted exams where dose is matched to clinical indication); or iterative reconstruction. Technique: Axial CT images of the abdomen/pelvis without IV contrast administration COMPARISON: None FINDINGS: Mild-moderate bilateral pleural effusions with mild bibasilar atelectatic changes. Visualized portions of the liver, spleen, pancreas and adrenal glands demonstrate a normal unenhanced CT appearance. No calcified gallstones in the gallbladder. Extensive confluent retroperitoneal adenopathy in the left para-aortic and aortocaval space regions extending into the iliac chain region bilaterally, right greater than left. Enlarged lymph nodes in the martha hepatis region are suspected. Retrocrural adenopathy is noted bilaterally in the upper abdomen as well. Findings are suspicious for neoplastic process such as lymphoma or metastatic disease. Moderate bilateral hydronephrosis with proximal ureteral dilatation bilaterally. Bilateral ureteral obstruction secondary to previously described retroperitoneal adenopathy. Normal caliber abdominal aorta with atherosclerotic calcifications The prostate gland is mildly enlarged with indentation of the bladder base No bowel dilatation to suggest obstruction or ileus. No free intraperitoneal air, ascites or inflammatory changes. Normal appendix. Small left inguinal hernia containing fat and nondistended portion of sigmoid colon. Mild sclerotic changes involving the L1 vertebral body and S1 segment which may reflect degenerative changes, but metastatic lesions are difficult to fully exclude. Otherwise no suspicious regional osseous lesions. Spondylotic changes in the visualized spinal axis. IMPRESSION: Extensive retroperitoneal adenopathy as detailed above suspicious for neoplastic process such as lymphoma or metastatic disease Moderate bilateral hydronephrosis with bilateral proximal ureteral dilatation. Apparent bilateral ureteral obstruction by retroperitoneal adenopathy. Moderate bilateral pleural effusions with mild bibasilar atelectatic changes. Small sclerotic lesions in the L1 and S1 segments. Metastatic disease can not be excluded. Mild prostate enlargement. Results telephoned to referring provider at the time of interpretation. JOB #: [id number] Final Signed by: Jose Angel Shin MD Signed (Electronic Signature): 2022 10:40 am Social History Social History Type Response Tobacco Tobacco use status u nknown Tobacco Use:. Sex Patient Care team information Care Team Personnel Name: Nicolasa Mcgee Position: Physician Member Role: Primary Care Physician Address: Address: [address] [facility] [place], [address]
--- OUTSIDE RECORDS SUMMARY | 2023-02-06 13:28 | XMS_ITS | Continuity of Care Document ---
Author Name Unknown Organization [facility] Address [address] [place] [address] Care Team Providers Care R&D Engineer Name Role Phone Nicolasa Mcgee Primary Care Physic keya Encounter [facility] NBR [id number] Date(s): 09/19/22 - 09/19/[address] [address]- Encounter Diagnosis Acute kidney failure, unspecified(Final) - Discharge Disposition: Home or Self Care Attending Physician: Nicolasa Mcgee Admitting Physician: Nicolasa Mcgee Referring Physician: Nicolasa Mcgee Assessment and Plan Diagnostic Tests Pending * HLA B 27 Disease Association LC 09/19/22 * PE+Interp(Rfx RASHAD),S LC 09/19/22 Future Scheduled Tests Radiology* US Lower Ext [...] Status: Ordered Results Laboratory List Name Date .Manual Differential (LTTL) 09/19/22 CBC w/ Manual Diff (CBC, with Manual Dif ferential (CPT-51007/88622)) 09/19/22 Comprehensive Metabolic Pane l (Comprehensive Metabolic Profile, Non-Fasting (CMP) (CPT-44741)) 09/19/22 IgG (Immunoglobulin, IgG (CPT-94859)) IgM (Immunoglobulin, IgM (CPT-35682)) PTH Intact (PTH Intact (CPT-92261)) 09/19 Vitamin D 25 Hydroxy Level (Vitamin D, 2 5-Hydroxy (CPT-89931)) 09/19/22 Most recent to oldest [Reference Range]: 1 WBC [4.8-10.8 K/mcL] 5.2 K/mcL (09/19/22 1:01 PM) RBC [4.20-6.10 Million/mcL] 3.26 Million /mcL *LOW* (09/19/22 1:01 PM) Segs Man 64 *NA* (09/19/22 1:01 PM) Lymph Man [20.5-51.1 %] 26.0 % (09/19/22 1:01 PM) Gregory Man [1.7-9.3 %] 6.0 % (09/19/22 1:01 PM) Eos Man [0.00-3.00 %] 3.00 % (09/19/22 1:01 PM) BUN [8-26 mg/dL] 49 mg/dL *HI* (09/19/22 1:01 PM) Glucose Level [74-106 mg/dL] 81 mg/dL (09/19/22 1:01 PM) Potassium Level [3.5-5.1 mmol/L] 5.6 mmo l/L *HI* (09/19/22 1:01 PM) MCV [80.0-94.0 fL] 89.6 fL (09/19/22 1:01 PM) RBC Morph [Normal] Normal (09/19/22 1:01 PM) AST [15-41 IntlUnit/L] 26 IntlUnit/L (09/19/22 1:01 PM) ALT [17-63 IntlUnit/L] 15 IntlUnit/L *LOW* (09/19/22 1:01 PM) MCHC [32.0-36.0 g/dL] 33.6 g/dL (09/19/22 1:01 PM) Osmolality [275-295 mOsm/kg] 278 mOsm/kg (09/19/22 1:01 PM) Sodium Level [134-143 mmol/L] 133 mmol/L *LOW* (09/19/22 1:01 PM) Hct [42.0-52.0 %] 29.2 % *LOW* (09/19/22 1:01 PM) Vitamin D 25 OH [30.0-100.0 ng/mL] 18.3 ng/mL 1 *LOW* (09/19/22 1:01 PM) Calcium Level [8.9-10.3 mg/dL] 9.0 mg/dL (09/19/22 1:01 PM) Albumin Level [3.5-5.0 g/dL] 3.1 g/dL *LOW* (09/19/22 1:01 PM) Protein Total [6.5-8.1 g/dL] 8.3 g/dL *HI* (09/19/22 1:01 PM) MCH [27.0-31.0 pg] 30.1 pg (09/19/22 1:01 PM) Bilirubin Total [0.2-1.2 mg/dL] 0.5 mg/d L (09/19/22 1:01 PM) Hgb [14.0-18.0 g/dL] 9.8 g/dL *LOW* (09/19/22 1:01 PM) Alk Phos [38-130 IntlUnit/L] 57 IntlUnit /L (09/19/22 1:01 PM) MPV [7.4-10.4 fL] 9.1 fL (09/19/22 1:01 PM) Band Man 0 % *NA* (09/19/22 1:01 PM) Platelets [130-400 K/mcL] 348 K/mcL (09/19/22 1:01 PM) CO2 [22-32 mmol/L] 21 mmol/L *LOW* (09/19/22 1:01 PM) IgG [791-1643 mg/dL] 3242 mg/dL *HI* (09/19/22 1:01 PM) Chloride Level [98-111 mmol/L] 104 mmol/ L (09/19/22 1:01 PM) RDW-CV [11.5-14.5 %] 14.6 % *HI* (09/19/22 1:01 PM) A/G Ratio 0.6 *NA* (09/19/22 1:01 PM) BUN/Creat Ratio [8.0-20.0] 13.8 (09/19/22 1:01 PM) Globulin 5.2 *NA* (09/19/22 1:01 PM) Abs Baso Man [0.0-0.2 K/mcL] 0.1 K/mcL (09/19/22 1:01 PM) Abs Eos Man [0.0-0.2 K/mcL] 0.2 K/mcL (09/19/22 1:01 PM) Abs Lymph Man [1.2-3.4 K/mcL] 1.4 K/mcL (09/19/22 1:01 PM) Abs Gregory Man [0.1-0.6 K/mcL] 0.3 K/mcL (09/19/22 1:01 PM) Abs Neut Man [1.4-6.5 K/mcL] 3.3 K/mcL (09/19/22 1:01 PM) Creatinine Level [0.61-1.24 mg/dL] 3.55 mg/dL *HI* (09/19/22 1:01 PM) Plt Estimation Normal (09/19/22 1:01 PM) Anion Gap [3.0-12.0] 8.0 (09/19/22 1:01 PM) Parathyroid Hormone, Intact [12.0-88.0 p g/mL] 78.3 pg/mL (09/19/22 1:01 PM) Baso Man [0.0-0.8 %] 1.0 % *HI* (09/19/22 1:01 PM) eGFR CKD-EPI [>=60 mL/min/1.73 m2] 18 mL /min/1.73 m2 *LOW* (7/17/23 1:01 PM) IgM [43-279 mg/dL] 34 mg/dL *LOW* (09/19/22 1:01 PM) 1Interpretive Data: VIT D STATUS: RANGE: Deficient <20 ng/mL Insufficiency 20-30 ng/mL Sufficiency 30-100 ng/mL Toxicity >100 ng/mL Patients that have undergone flourescein dye angiography without allowing enough time for clearanceof the flourescein dye may have falsely elevated Vitamin D levels. Social History Social History Type Response Tobacco Tobacco use status u nknown Tobacco Use:. Sex Patient Care team information Care Team Personnel Name: Nicolasa Mcgee Position: Physician Member Role: Primary Care Physician Address: Address: [address] [place], [place] [address]
--- OUTSIDE RECORDS SUMMARY | 2023-02-06 13:29 | XMS_ITS | Continuity of Care Document ---
Author Name Unknown Organization [facility] Address [address] [place] [address] Care Team Providers Care Food Service Steward Name Role Phone VICTORIA FERRELL Primary Care Physician Encounter LTTL_[place] FIN NBR [id number] Date(s): 01/06/23 - 01/06/23 [facility] [address] [place] [address]- [place] Discharge Disposition: Home f/u External Provider Attending Physician: Estefany Jasso MD Admitting Physician: Estefany Jasso MD Referring Physician: Estefany Jasso MD Allergies, Adverse Reactions, Alerts Substance Reaction Severity Status amoxicillin 1 Rash Moderate Active 1rash as adult Assessment and Plan Future Appointments Diagnostic Tests Pending * Glucose POCT 01/06/23 * Urine Culture 01/06/23 Future Scheduled Tests Radiology* BD Bone Density DEXA Axial Skeleton 01/12/23 * US Lower Ext Venous Duplex Right 09/08/22 * CT Abdomen and Pelvis w/ + w/o Contrast 09/26/22 * CT Abdomen and Pelvis w/o Contrast 09/28/22 Functional Status 01/06/23 Anti-Embolism Device Activity: Removed Anti-Embolism Device Removal Reason: Dis continued Anti-Embolism Site Condition: No complic ations 01/06/23 ADLs Independent Antiembolism Device Intermittent pneumat ic compression devices, knee high, bilat Medications abiraterone 500 mg oral tablet 1,000 [...] constipation, # 527 g, 0 Refill(s), Pharmacy: [facility], 177.8, cm, 12/20/22 14:46:00 [...] blood pressure Confirmed Active Hypothyroidism Confirmed Active Stevenson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 Mitral regurgitation [...] from lymphadenopathy Results Laboratory List Name Date Glucose POCT 01/06/23 Most recent to oldest [Reference Range]: 1 Glucose POC 130 *NA* (01/06/23 7:14 AM) Radiology Reports * Exam Date Time Procedure Performing Provider Status 01/06/23 8:37 AM XR Fluoroscopy Over 1 Hour Derick Abel; Auth (Verified) Notes: (XR Fluoroscopy Over 1 Hour) Reason For Exam: STENT PLACEMEMT XR Fluoroscopy Over 1 Hour EXAM DESCRIPTION: XR Fluoroscopy Over 1 Hour 01/06/2023 8:37 INDICATION: STENT PLACEMEMT IMPRESSION: Intraoperative fluoroscopy with spot views was provided Fluoroscopy time 57.4 seconds, 3 images Visualized portions of bilateral ureteral stents appear in satisfactory position. JOB #: [id number] Final Signed by: Jose Angel Shin MD Signed (Electronic Signature): 01/06/2023 9:19 am Vital Signs Most recent to oldest [Reference Range]: 1 2 3 Temperature Temporal Artery [36-38 Deg C] 36.5 Deg C (01/06/23 8:50 AM) 36.3 Deg C (01/06/23 8:17 AM) 36.4 Deg C (01/06/23 6:36 AM) Temperature Temporal Artery (DegF) [97.3-100 Deg F] 97.34 Deg F (01/06/23 8:17 AM) Peripheral Pulse Rate [60-100 bpm] 74 bpm (01/06/23 8:50 AM) 72 bpm (01/06/23 8:43 AM) 75 bpm (01/06/23 8:31 AM) Heart Rate Monitored [60-100 bpm] 71 bpm (01/06/23 8:43 AM) 76 bpm (01/06/23 8:31 AM) 79 bpm (01/06/23 8:23 AM) Respiratory Rate [12-24 br/min] 16 br/min (01/06/23 8:17 AM) 16 br/min (01/06/23 8:00 AM) 18 br/min (01/06/23 6:36 AM) Blood Pressure [90-140/60-90 mmHg] 118/63mmHg (01/06/23 8:50 AM) 130/67mmHg (01/06/23 8:43 AM) 132/67mmHg (01/06/23 8:31 AM) Mean Arterial Pressure, Cuff [65-140 mmHg] 81 mmHg (01/06/23 8:50 AM) 88 mmHg (01/06/23 8:43 AM) 89 mmHg (01/06/23 8:31 AM) Mean Arterial Pressure Cuff 79 mmHg (01/06/23 8:50 AM) 85 mmHg (01/06/23 8:43 AM) 87 mmHg (01/06/23 8:23 AM) Blood Pressure Location Right arm (01/06/23 8:17 AM) Right arm (01/06/23 6:00 AM) Blood Pressure Method Automatic (01/06/23 8:17 AM) Automatic (01/06/23 6:00 AM) Weight 82.000 kg (12/30/22 5:05 PM) Weight Dosing 82.000 kg (12/30/22 5:05 PM) Height 178.000 cm (12/30/22 5:05 PM) Height/Length Dosing 178.000 cm (12/30/22 5:05 PM) Social History Social History Type Response Tobacco Never tobacco user T obacco Use:. Sex Implantable Device List Procedure Provider Procedure Date Device Type Site Cystoscopy with Stent Placement Unknown 01/06/23 Unkn own Ureter L Device Identifier Serial Number Lot or Batch Number Manufacturing Date Expiration Date Distinct Identification Code MRI Safety Implantable Status Assigning Authority Unknown Unknown [id number] Unknown 08/25/25 Unknown Unknown Active Unknown Unknown Unknown [id number] Unknown 08/25/25 Unknown Unknown Active Unknown Patient Care team information Care Team Personnel Name: VICTORIA FERRELL Position: No Access Member Role: Primary Care Physician Address: Address: [address] [place], [place] [address] Care Team Related Persons Name: SANTA MATA Name: GABY ALCALA
--- OUTSIDE RECORDS SUMMARY | 2023-02-06 13:29 | XMS_ITS | Continuity of Care Document ---
Author Name Unknown Organization [facility] Address [address] [place] [address] Care Team Providers Care Utilities Ground Worker Name Role Phone VICTORIA FERRELL Primary Care Physician Encounter [facility]TT[facility]_[place] FIN NBR [id number] Date(s): 11/29/22 - 11/29/22 [facility] [address] [place] [address]- [place] Encounter Diagnosis Acute kidney failure, unspecified(Final) - Discharge Disposition: Home or Self Care Attending Physician: PRISCILA TOURE MD Admitting Physician: PRISCILA TOURE MD Referring Physician: PRISCILA TOURE MD Allergies, Adverse Reactions, Alerts Substance Reaction [...] Physician Address: Address: [address] [place] [address]- Care Team Related Persons Name: GABY ALCALA
[2023-02-10 16:32] LABS: Testosterone, Total <7.0 ng/dL (240-950)
== END 2023-02-06 13:26 | disposition home or self-care (01) ==
LOC: LBO 13:26
PROVIDERS: PCP Nurse Practitioner Family; Visit Provider Internal Medicine
DX: C61 Malignant neoplasm of prostate (principal)
CPT/HCPCS: 36415; 80053; 84153; 84403; 85025

== ENCOUNTER 2023-02-28 04:15 | Outpatient (CLI) | payer MEDICARE, SELFPAY ==
--- OUTSIDE RECORDS SUMMARY | 2023-02-28 04:17 | XMS_ITS | Continuity of Care Document ---
Author Name Unknown Organization [facility] Address [address] [place] [address] Care Team Providers Care Mill Operator Head Name Role Phone VICTORIA FERRELL Primary Care Physician ( [phone] Encounter [facility] NBR [id number] Date(s): 02/06/23 - 02/06/23 [facility] [address] [place] [address] [place] Encounter Diagnosis Prostate cancer(Discharge Diagnosis) - 02/06/23 Bilateral ureteral obstruction(Discharge Diagnosis) - 02/06/23 Discharge Disposition: Home or Self Care Attending [...] blood pressure Confirmed Active Hypothyroidism Confirmed Active Kismet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 Mitral regurgitation [...] 32 dics replaced 4for hydronephrosis from lymphadenopathy Vital Signs Most recent to oldest [Reference Range]: 1 Peripheral Pulse Rate [60-100 bpm] 73 bp m (02/06/23 2:50 PM) Blood Pressure [90-140/60-90 mmHg] 124/6 8mmHg (02/06/23 2:50 PM) Mean Arterial Pressure, Cuff [70-110 mmH g] 87 mmHg (02/06/23 2:50 PM) Weight 82.10 kg (02/06/23 2:50 PM) Weight Measured (lbs) 180.999 lb (02/06/23 2:50 PM) Weight Dosing 82.100 kg (02/06/23 2:50 PM) Social History Social History Type Response Tobacco Never tobacco user T obacco Use:. Sex Implantable Device List Procedure Provider Procedure Date Device Type Site Cystoscopy with Stent Placement Unknown 01/06/23 Unkn own Ureter L Device Identifier Serial Number Lot or Batch Number Manufacturing Date Expiration Date Distinct Identification Code MRI Safety Implantable Status Assigning Authority Unknown Unknown [id number] Unknown 08/25/25 Unknown Unknown Active Unknown Unknown Unknown [id number] Unknown 08/25/25 Unknown Unknown Active Unknown Physician Outpatient Note * Estefany Jasso MD: PERFORM Event Display: Office Clinic Note Physician Authored Date: [id number] ROSARIO KEYS :1955 Age:67 years Sex:Male Visit Date:02/06/2023 Primary Care Physician: VICTORIA FERRELL Chief Complaint Prostate cancer follow-up History of Present Illness Mr. Keys is a pleasant 67 year-old man who presents to the clinic today for urinary difficulties in the context of metastatic prostate cancer causing bilateral extrinsic distal ureteral obstruction managed with bilateral ureteral stents.? His stents were most recently changed on 01/06/23.?? He is scheduled for his next stent exchange on 04/07/23. ?? Today, he??describes ??flank pain related to urination.?? Each time he urinates, he has flank pain that starts during micturition, and resolves slowly once he has completed urination.? He also notices the discomfort if his bladder is overfull.? He has not had much trouble with urinary urgency.?? He voids about every 2h while awake.?? He does have bothersome nocturia x 4-5.?? He was prescri bed tamsulosin, but he did??find it helped very much.? His PVR today was elevated at 191 mL.? He??initially presented in?? August 2021??with a PSA of??35.?? A pelvic MRI was obtained on 10/26/21;this showed a ??PI-RADS 5 lesion.? He underwent targeted biopsy at [facility] in December 2021; this was negative.? His PSA??at that time was 111, so he was treated for prostatitis.? HisPSA in March 2022 was 89.?? PSMA CT PET scan was discussed, but it was decided to monitor closelyand rebiopsy.? Mr. Keys was admitted with bilateral hydronephrosis in September 2022.?? A??CT abdomen/pelvis done during that admission showed??significant pelvic lymphadenopathy leading to bilateral ureteral obstruction.?A CT guided pelvic node bx obtained on 09/30/22 revealed metastatic carcinoma, c/w prostatic primary. ??PET scan obtained on 10/31/22 showed osseus uptake in proximal left femur, right pelvis, L2 right pedicle and in multiple lymph nodes. ?? He was recently started on darolutamide, and will be undergoing docetaxel chemotherapy soon. ?? Recent lab work obtained on 11/28/22 revealed: BUN/CR of 41 & 1.59 respectively, eGFR 47. ?? He describes right lower back pain if voiding is delayed.? PSA: 12/27/22:? 38.10 Physical Exam Vitals & Measurements HR:??73??(Peripheral)?? BP:??124/68?? SpO2:??99%?? WT:??82.10??kg?? GENERAL APPEARANCE:??alert and oriented in NAD; appropriate with good affect.??.?? NEURO:??grossly intact.?? HEENT:??NCAT; EOMI.?? NECK:??supple.?? CHEST:??symmetric excursions.?? ABDOMEN:??soft, NT, ND.?? MUSCULOSKELETAL:??good gait and station.?? EXTREMITIES:??no c/c/e??.?? BACK/SPINE:??no CVAT.?? :??deferred. Assessment/Plan ASSESSMENT:?Mr. Keys is a very pleasant 67 year-old ??man with metastatic prostate cancer currently in [place] with [facility]. ??He has bilateral??extrinsic ureteral obstruction from??from extensive lymphadenopathy.?? This is being managed with chronic indwelling bilateral ure teral stents.? He came in today for stent pain, and was reassured.? He does have incomplete bladder emptying, with a PVR of 191 mL, and was encouraged to continue taking tamsulosin. PLAN: 1. He will keep his appointment for OR stent exchange on 04/07/23. 2. He will continue tamsulosin 0.4 mg nightly. Problem List/Past Medical History Ongoing Adenocarcinoma of prostate Adenoma of colon CAD - Coronary artery disease Carcinoma, metastatic Cardiomyopathy CKD (chronic kidney disease) Congestive heart failure Diabetes Gout High blood pressure HLD - Hyperlipidemia Hypercholesterolemia Hypothyroidism Kismet light chain disease Mitral regurgitation Urinary frequency Historical No qualifying data Procedure/Surgical History ???Cystoscopy with Stent Placement (Bilateral) (01/06/2023)???Echocardiogram (12/20/2022)???Operation on neck (03/06/2022)???Cataract surgery of both eyes???Cystoscopic insertion of ureteric stent Medications abiraterone 500 mg oral tablet, 1000 mg= 2 tab, Oral, Daily acetaminophen 500 mg oral tablet, 1000 mg= 2 tab, Oral, TID, PRN atorvastatin 40 mg oral tablet, 40 mg= 1 tab, Oral, every night at bedtime HYDROcodone-acetaminophen 5 mg-325 mg oral tablet, 1 tab, Oral, every 8 hr, PRN Lantus Solostar Pen 100 units/mL subcutaneous solution, 8 units, Subcutaneous, Daily levothyroxine 175 mcg (0.175 mg) oral tablet, 175 mcg= 1 tab, Oral, Daily MiraLax oral powder for reconstitution, 17 g, Oral, BID, PRN predniSONE 5 mg oral delayed release tablet, 5 mg= 1 tab, Oral, Daily tamsulosin 0.4 mg oral capsule, 0.4 mg= 1 cap, Oral, Daily Vitamin D3 1000 intl units oral tablet, 25 mcg= 1 tab, Oral, Daily Allergies amoxicillin??(Rash) Social History Alcohol Never Electronic Cigarette/Vaping Electronic Cigarette Use: Never. Home/Environment Lives with Alone. Living situation: Home/Independent. Home equipment: Cane. Substance Use Never Tobacco Never tobacco user Tobacco Use:. Family History Diabetes mellitus: Sister. Heart disease: Father. Electronically Signed on 02/06/23 05:48 PM Estefany Jasso MD Patient Care team information Care Team Personnel Name: VICTORIA FERRELL Position: No Access Member Role: Primary Care Physician Address: Address: [address] [place] [address]- Care Team Related Persons Name: SANTA MATA Name: GABY ALCALA
--- OUTSIDE RECORDS SUMMARY | 2023-02-28 04:17 | XMS_ITS | Continuity of Care Document ---
Author Name Unknown Organization [facility] Address [address] [place] [address] Care Team Providers Care Nuclear Operations Specialist Name Role Phone VICTORIA FERRELL Primary Care Physician Encounter [facility] FIN NBR [id number] Date(s): 02/21/23 - 02/21/[address] [address]- Encounter Diagnosis Hypothyroidism, unspecified(Final) - Type 2 diabetes mellitus with unspecified diabetic retinopathy without macular edema(Final) - Discharge Disposition: Home or Self Care [...] constipation, # 527 g, 0 Refill(s), Pharmacy: [facility], 177.8, cm, 12/20/22 14:46:00 [...] blood pressure Confirmed Active Hypothyroidism Confirmed Active [place]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 Mitral regurgitation [...] from lymphadenopathy Results Laboratory List Name Date Thyroid Stimulating Hormone (Thyroid Sti mulating Hormone (TSH) (CPT-39514)) 02/21/23 Microalbumin/Creatinine Rati o Urine (Microalbumin, Random Urine (CPT- 57673/63872)) 02/21/23 Most recent to oldest [Reference Range]: 1 TSH [0.45-5.33 mcIntlUnit/mL] 0.32 mcInt lUnit/mL *LOW* (02/21/23 3:28 PM) U Creatinine 66.0 mg/dL *NA* (02/21/23 2:46 PM) U Microalb/Creat [0.00-30.00] 544.70 *HI* (02/21/23 2:46 PM) U Microalb [<=19.0 mg/L] 359.5 mg/L *HI* (02/21/23 2:46 PM) Social History Social History Type Response Tobacco Never tobacco user T obacco Use:. Sex Implantable Device List Procedure Provider Procedure Date Device Type Site Cystoscopy with Stent Placement Unknown 01/06/23 Unkn own Ureter L Device Identifier Serial Number Lot or Batch Number Manufacturing Date Expiration Date Distinct Identification Code MRI Safety Implantable Status Assigning Authority Unknown Unknown [id number] Unknown 08/25/25 Unknown Unknown Active Unknown Unknown Unknown [id number] Unknown 08/25/25 Unknown Unknown Active Unknown Patient Care team information Care Team Personnel Name: VICTORIA FERRELL Position: No Access Member Role: Primary Care Physician Address: Address: [address] [place] [address] Care Team Related Persons Name: SANTA MATA Name: GABY ALCALA
--- OUTSIDE RECORDS SUMMARY | 2023-02-28 04:17 | XMS_ITS | Continuity of Care Document ---
Author Name Unknown Organization [facility] Address [address] [place] [address] Care Team Providers Care Hotel Valet Attendant Name Role Phone VICTORIA FERRELL Primary Care Physician Encounter [facility] NBR [id number] Date(s): 02/13/23 - 02/13/23 [facility] [address] [place] [address]- [place] Encounter Diagnosis Adenocarcinoma of prostate(Discharge Diagnosis) - 02/13/23 Discharge Disposition: Home or Self Care Attending Physician: Sameer Woods MD Referring Physician: EUGENIO LIN MD Allergies, Adverse Reactions, Alerts Substance Reaction Severity Status amoxicillin 1 Rash Moderate Active 1rash as adult Assessment and Plan Future Appointments Future Scheduled Tests Radiology* US Lower Ext Venous Duplex Right 09/08/22 * CT Abdomen and Pelvis w/ + w/o Contrast 09/26/22 * CT Abdomen and Pelvis w/o Contrast 09/28/22 Functional Status 02/13/23 Living Environment Home Environment No qualifying data available Other exposure to Infectious Disease Non e [...] constipation, # 527 g, 0 Refill(s), Pharmacy: 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 Mitral regurgitation [...] Deg C ] 35.6 Deg C *LOW* (02/13/23 3:09 PM) Apical Heart Rate [60-100 bpm] 86 bpm (02/13/23 3:09 PM) Blood Pressure [90-140/60-90 mmHg] 120/6 8mmHg (02/13/23 3:09 PM) Mean Arterial Pressure, Cuff [70-110 mmH g] 85 mmHg (02/13/23 3:09 PM) Weight 81.9 kg (02/13/23 3:09 PM) Weight Measured (lbs) 180.558 lb (02/13/23 3:09 PM) Weight Dosing 81.900 kg (02/13/23 3:09 PM) [place] Body Weight Calculated 72.276 kg (02/13/23 3:09 PM) Height 177 cm (02/13/23 3:09 PM) Height/Length Measured (inches) 69.69 in ch (02/13/23 3:09 PM) BSA Measured 2.01 m2 (02/13/23 3:09 PM) Body Mass Index 26.14 kg/m2 (02/13/23 3:09 PM) Social History Social History Type Response Tobacco Never tobacco user T obacco Use:. Sex Implantable Device List Procedure Provider Procedure Date Device Type Site Cystoscopy with Stent Placement Unknown 01/06/23 Unkn own Ureter L Device Identifier Serial Number Lot or Batch Number Manufacturing Date Expiration Date Distinct Identification Code MRI Safety Implantable Status Assigning Authority Unknown Unknown [id number] Unknown 08/25/25 Unknown Unknown Active Unknown Unknown Unknown [id number] 7 Unknown 08/25/25 Unknown Unknown Active Unknown Physician Outpatient Note * Sameer Woods MD: PERFORM Event Display: Office Clinic Note Physician Authored Date: [id number] HUBER KEYS :1955 Age:67 years Sex:Male Visit Date:02/13/2023 Primary Care Physician: VICTORIA FERRELL Chief Complaint Mediport placement History of Present Illness Huber Massimo is a 67-year-old??male??with significant past medical history of metastaticprostate cancer referred by??Fiordaliza Lin APRN for Mediport placement.?? Griffin has been undergoing??hormone??therapy??and??recently started chemotherapy??with Taxotere??as directed by [facility] [place]? ?for??metastatic prostate cancer.?? Given the need for??durable central venous access he was referred??to surgery for possible Mediport placement. ??He has??been experiencing pain and significant bruising with difficult access and peripheral IV and laboratory draws. ??He has had no??history of??thrombosis or??radiation to the chest. ??He??is followed by Dr. Rudolph for cardiomyopathy. ??He is alsofollowed by Dr. Jasso for??bilateral ureteral obstruction??for which she has??chronic stents.?? With the exception of his recent??initiation of??chemotherapy, he denies significant changes in his health.?? He has had no recent fevers, chills, chest pains, or shortness of breath. Review of Systems A 10 point review of systems was completed. ??Notable findings are documented above. Physical Exam Vitals & Measurements T:??35.6?C ??(Temporal Artery)?? HR:??86??(Apical)?? BP:??120/68?? SpO2:??95%?? HT:??177??cm?? WT:??81.9??kg?? BMI:??26.14?? BSA:??2.01?? General: No acute distress, pleasant, conversant CV: RRR Pulmonary: Regular breathing rate and effort Abdomen: Nontender Skin: Warm, dry, intact Neuro: Grossly intact Assessment/Plan 1.??Adenocarcinoma of prostate??C61 Griffin Keys is a 67-year-old male??undergoing hormonal and chemotherapy for??metastatic prostate??cancer??referred for possible Mediport placement.?? The benefit of??implantable??port??in the setting of ongoing need for central venous access was reviewed. ??Recommend Mediport placement. ??The risks, benefits, and alternatives to this procedure were reviewed in detail.?? The typical management of an implantable port??including its access, care, and??possible eventual removal or reviewed.?? Theexpected postoperative recovery including??wound care, pain control, and??activity striction's wereoutlined.?? Griffin demonstrated good understanding and agreement. ??He would like to schedule Mediport placement for the next mutually convenient date.?? Thank you for the opportunity to participate inthe care of Griffin. ??A copy of this consultation will be faxed to Fiordaliza Lin APRN. Problem List/Past Medical History Ongoing Adenocarcinoma of prostate Adenoma of colon CAD - Coronary artery disease Carcinoma, metastatic Cardiomyopathy CKD (chronic kidney disease) Congestive heart failure Diabetes Gout High blood pressure HLD - Hyperlipidemia Hypercholesterolemia Hypothyroidism [place] light chain disease Mitral regurgitation Urinary frequency [...] Oral, Daily Allergies amoxicillin??(Rash) Social History Alcohol Past Electronic Cigarette/Vaping Electronic Cigarette Use: Never. Home/Environment Lives with Alone. Living situation: Home/Independent. Home equipment: Cane. Substance Use Never Tobacco Never tobacco user Tobacco Use:. Family History Diabetes mellitus: Sister. Heart disease: Father. Electronically Signed on 02/13/23 04:58 PM Sameer Woods MD Patient Care team information Care Team Personnel Name: VICTORIA FERRELL Position: No Access Member Role: Primary Care Physician Address: Address: [address] [place] [address]- Care Team Related Persons Name: SANTA MATA Name: GABY ALCALA
[2023-02-28 09:38] LABS: Abs Immature Grans 0.02 10^3/uL (0.0-0.06); Absolute Basophil Count 0.13 10^3/uL (0.0-0.2); Absolute Eosinophil Count 0.09 10^3/uL (0.0-0.7); Absolute Lymphocyte Count 1.22 10^3/uL (1.2-3.4); Absolute Monocyte Count 0.58 10^3/uL (0.1-0.8); Absolute Neutrophil Count 3.99 10^3/uL (1.2-6.7); Basophils % 2.2; Eosinophils % 1.5; HCT 32.2 % (40.0-50.0); HGB 10.4 g/dL (13.5-17.5); Immature Grans % 0.3; Lymphocytes % 20.2; MCH 30.1 pg (27.0-33.0); MCHC 32.3 % (32.0-36.0); MCV 93 fL (80-95); MPV 8.8 fL (8.0-11.0); Monocytes % 9.6; Neutrophils % 66.2; Platelet Count 420 10^3/uL (130-400); RBC 3.46 10^6/uL (4.36-5.78); RDW 14.2 % (11.8-14.1); RDW-SD 46.9 fL; WBC 6.03 10^3/uL (4.4-10.8)
[2023-02-28 09:56] LABS: ALT 27 U/L (16-63); AST 20 U/L (15-37); Albumin 3.2 g/dL (3.4-5.0); Alkaline Phosphatase 65 U/L (46-116); Anion Gap 8.8 mmol/L (3-11); BUN 43 mg/dL (7-18); Bilirubin, Total 0.4 mg/dL (0.2-1.0); CO2 25.2 mmol/L (21.0-32.0); CREATININE 2.1 mg/dL (0.70-1.30); Calcium 9.6 mg/dL (8.5-10.1); Chloride 104 mmol/L (98-107); Estimated GFR 33.66 (mL/min/1.73m2); Glucose 204 mg/dL (74-106); Potassium 5.5 mmol/L (3.5-5.1); Sodium 138 mmol/L (136-145); Total Protein 7.4 g/dL (6.4-8.2)
[2023-03-02 12:21] LABS: PSA, Ultrasensitive 28.9 ng/mL (<= 4.5)
[2023-03-04 02:49] LABS: Testosterone, Total <7.0 ng/dL (240-950)
== END 2023-02-28 04:16 | disposition home or self-care (01) ==
LOC: LBO 04:15
PROVIDERS: PCP Nurse Practitioner Family; Visit Provider Internal Medicine
DX: C61 Malignant neoplasm of prostate (principal); C79.51 Secondary malignant neoplasm of bone
CPT/HCPCS: 36415; 80053; 84153; 84403; 85025

== ENCOUNTER 2023-03-21 03:38 | Outpatient (RCR) | payer MEDICARE, SELFPAY ==
[2023-03-21] MEDS: Normal Saline Flush 10 ML SYR IVP (08:31)
[2023-03-21 08:42] LABS: Abs Immature Grans 0.02 10^3/uL (0.0-0.06); Absolute Basophil Count 0.12 10^3/uL (0.0-0.2); Absolute Eosinophil Count 0.07 10^3/uL (0.0-0.7); Absolute Lymphocyte Count 1.21 10^3/uL (1.2-3.4); Absolute Monocyte Count 0.89 10^3/uL (0.1-0.8); Absolute Neutrophil Count 3.76 10^3/uL (1.2-6.7); Eosinophils % 1.2; HCT 29.2 % (40.0-50.0); HGB 9.5 g/dL (13.5-17.5); Immature Grans % 0.3; Lymphocytes % 19.9; MCH 30.3 pg (27.0-33.0); MCHC 32.5 % (32.0-36.0); MCV 93 fL (80-95); Monocytes % 14.7; Neutrophils % 61.9; Platelet Count 379 10^3/uL (130-400); RBC 3.14 10^6/uL (4.36-5.78); RDW 16.5 % (11.8-14.1); RDW-SD 54.7 fL; WBC 6.07 10^3/uL (4.4-10.8)
[2023-03-21 08:59] LABS: ALT 31 U/L (16-63); AST 23 U/L (15-37); Albumin 2.9 g/dL (3.4-5.0); Alkaline Phosphatase 56 U/L (46-116); Anion Gap 8.1 mmol/L (3-11); BUN 41 mg/dL (7-18); Bilirubin, Total 0.4 mg/dL (0.2-1.0); CO2 23.9 mmol/L (21.0-32.0); CREATININE 1.7 mg/dL (0.70-1.30); Chloride 104 mmol/L (98-107); Estimated GFR 43.37 (mL/min/1.73m2); Glucose 186 mg/dL (74-106); Potassium 4.8 mmol/L (3.5-5.1); Sodium 136 mmol/L (136-145); Total Protein 6.4 g/dL (6.4-8.2)
[2023-03-22 16:52] LABS: PSA, Ultrasensitive 15.8 ng/mL (<= 4.5)
[2023-03-24 00:08] LABS: Testosterone, Total <7.0 ng/dL (240-950)
== END 2023-04-05 23:59 | disposition home or self-care (01) ==
LOC: INF 03:38
PROVIDERS: PCP Nurse Practitioner Family; Visit Provider Internal Medicine
DX: C61 Malignant neoplasm of prostate (principal); C79.51 Secondary malignant neoplasm of bone; Z45.2 Encounter for adjustment and management of vascular access device
CPT/HCPCS: 36591; 80053; 84153; 84403; 85025

== ENCOUNTER → 2023-03-21 10:03 | Outpatient (CLI) | payer MEDICARE, SELFPAY ==
--- NOTE | 2023-03-21 | DI.US_ITS ---
Exam(s) US LOWER EXTREMITY VENOUS RT EXAM: US LOWER EXTREMITY VENOUS RT CLINICAL HISTORY: RT LEG SWELLING, M79.89, METS PROSTATE CA ON DOCETAXEL CHEMOTHERAPY TECHNIQUE: Grayscale, color, and doppler imaging of the deep venous system of the lower extremity w as performed. COMPARISON: No exams were available for comparison FINDINGS: There is no evidence of intraluminal thrombus and there is normal compression and augmentation demons trated within the common femoral vein, femoral vein, and popliteal vein. In the ipsilateral calf the interrogated veins also exhibit normal compression/ augmentation properti es. The ipsilateral saphenofemoral junction is patent. There is significant lower extremity edema noted. IMPRESSION: 1. No evidence of DVT in the right lower extremity. DATA REPOSITORY:
--- OUTSIDE RECORDS SUMMARY | 2023-03-21 10:14 | XMS_ITS | Patient Health Record ---
Author Name Unknown [facility] Address [address] [place] [address] Care Team Providers Care Director Cardiac Name Role Phone CecyHuber escobar Unavailable [phone] ALLERGIES Allergen (clinical drug ingredient) Drug/Non Drug Allergy documented on EMR Reaction Allergy Type Onset Date Status lavender (uncoded) Unknown Allergy A ctive REASON FOR REFERRAL No Information MEDICATIONS Medication SIG (Take, Route, Frequency, Duration) Notes Start Date End Date Status LANCET as directed STOP*please review for potential update for e-prescription and drug interaction check* Active Levothyroxine Sodium 175 mcg (0.175 mg) 1 tab(s) orally once a day Active glipiZIDE 5 mg 1 tab(s) orally at night with a meal Active BD ULTRA-FINE PEN NEEDLE 31G 8MM used to administer insulin daily STOP*please review for potential update for e-prescription and drug interaction check* Active ACCU-CHEK KARLA TEST STRIPS, 50 as directed to test blood sugar once daily STOP*please review for potential update for e-prescription and drug interaction check* Active Lisinopril 10 mg 1 tab(s) orally once a day Active LANTUS SOLOSTAR PEN 100 units/mL 11 units subcutaneously once daily STOP*please review for potential update for e-prescription and drug interaction check* Active ASPIRIN buffered 81 mg 81 mg orally once a day STOP*please review for potential update for e-prescription and drug interaction check* Active Simvastatin 40 mg 1 tab(s) orally once a day Active Glucophage XR 500 mg 2 tab(s) orally 2 tabs every am, 2 tabs every pm Active ALCOHOL SWABS MEDIUM as directed to test blood sugar once daily STOP*please review for potential update for e-prescription and drug interaction check* Active INSULIN GLARGINE 100 units/mL 11 units subcutaneously once daily STOP*please review for potential update for e-prescription and drug interaction check* Active SOCIAL HISTORY Tobacco Use: Social History Observation Description Date Details (start date - stop date) Never Smoker NA - NA Sex Assigned At : Social History Observation Description Sex Assigned At Unknown SMOKING Question Answer Notes Are you a: nonsmoker PROBLEMS Problem Type ICD Code Onset Dates Problem Status W/U Status Risk SNOMED Code Notes Problem Diabetes mellitus type II (250.00) Active confirmed Diabetes mellitus type II (18359704) Problem Traumatic plantar fasciitis (728.71) Active confirmed Traumatic plantar fasciitis (021929412) Problem FOOT PAIN (729.5) Active confirmed Foot pain (45983144) Problem Type 2 diabetes mellitus (E11.9) Active confirmed 86006572 Problem Onychomycosis (B35.1) Active confirmed 688369380 Problem Toe pain, right (M79.674) Active confirmed [id number] PLAN OF TREATMENT No Information Insurance Providers Payer Name Payer Address Payer Phone Subscriber Number Group Number Insured Name Patient Relationship to Insured Coverage Start Date Coverage End Date [employer] [facility] [address] [place] [address] [id number] HUBER MOSHER Self - patient is the insured [place] [address] HUBER MOSHER Self - patient is the insured MEDICAL (GENERAL) HISTORY Medical History History ICD Code Diabetes Mellitis, Type II, insulin, germania g term (current) Hypothyroidism Plantar fasciitis Grief reaction Onychia, toe Overweight Hyperlipidemia, mixed Hypertension, benign Sebaceous cyst
== END ==
PROVIDERS: PCP Nurse Practitioner Family; Visit Provider Internal Medicine
DX: M79.89 Other specified soft tissue disorders (principal)
CPT/HCPCS: 36591; 80053; 84153; 84403; 85025; 93971

== ENCOUNTER 2023-04-11 03:41 | Outpatient (RCR) | payer MEDICARE, SELFPAY ==
[2023-04-11] MEDS: Normal Saline Flush 10 ML SYR IVP (10:15)
[2023-04-11 10:29] LABS: Abs Immature Grans 0.02 10^3/uL (0.0-0.06); Absolute Eosinophil Count 0.02 10^3/uL (0.0-0.7); Absolute Lymphocyte Count 1.24 10^3/uL (1.2-3.4); Absolute Monocyte Count 0.97 10^3/uL (0.1-0.8); Absolute Neutrophil Count 3.82 10^3/uL (1.2-6.7); Basophils % 1.6; Eosinophils % 0.3; HCT 28.7 % (40.0-50.0); HGB 9.4 g/dL (13.5-17.5); Immature Grans % 0.3; Lymphocytes % 20.1; MCH 30.9 pg (27.0-33.0); MCHC 32.8 % (32.0-36.0); MCV 94 fL (80-95); MPV 9.7 fL (8.0-11.0); Monocytes % 15.7; Platelet Count 358 10^3/uL (130-400); RBC 3.04 10^6/uL (4.36-5.78); RDW 17.4 % (11.8-14.1); RDW-SD 59.2 fL; WBC 6.17 10^3/uL (4.4-10.8)
[2023-04-11 10:47] LABS: ALT 20 U/L (16-63); AST 20 U/L (15-37); Albumin 3.1 g/dL (3.4-5.0); Alkaline Phosphatase 55 U/L (46-116); Anion Gap 11.3 mmol/L (3-11); BUN 52 mg/dL (7-18); Bilirubin, Total 0.6 mg/dL (0.2-1.0); CO2 23.7 mmol/L (21.0-32.0); CREATININE 2.1 mg/dL (0.70-1.30); Calcium 9.1 mg/dL (8.5-10.1); Chloride 102 mmol/L (98-107); Estimated GFR 33.66 (mL/min/1.73m2); Glucose 261 mg/dL (74-106); Potassium 4.7 mmol/L (3.5-5.1); Sodium 137 mmol/L (136-145); Total Protein 6.8 g/dL (6.4-8.2)
== END 2023-05-04 23:59 | disposition home or self-care (01) ==
LOC: INF 03:41
PROVIDERS: PCP Nurse Practitioner Family; Visit Provider Internal Medicine
DX: C61 Malignant neoplasm of prostate (principal); C79.51 Secondary malignant neoplasm of bone; Z45.2 Encounter for adjustment and management of vascular access device
CPT/HCPCS: 36591; 80053; 84153; 84403; 85025

== ENCOUNTER 2023-05-16 04:02 | Outpatient (RCR) | payer MEDICARE, SELFPAY ==
[2023-05-16] MEDS: Normal Saline Flush 10 ML SYR IVP (11:10)
[2023-05-16 11:24] LABS: Abs Immature Grans 0.01 10^3/uL (0.0-0.06); Absolute Basophil Count 0.05 10^3/uL (0.0-0.2); Absolute Eosinophil Count 0.26 10^3/uL (0.0-0.7); Absolute Lymphocyte Count 0.96 10^3/uL (1.2-3.4); Absolute Monocyte Count 0.64 10^3/uL (0.1-0.8); Absolute Neutrophil Count 3.31 10^3/uL (1.2-6.7); HCT 29.4 % (40.0-50.0); HGB 9.8 g/dL (13.5-17.5); Immature Grans % 0.2; Lymphocytes % 18.4; MCH 31.6 pg (27.0-33.0); MCHC 33.3 % (32.0-36.0); MCV 95 fL (80-95); MPV 8.9 fL (8.0-11.0); Monocytes % 12.2; Neutrophils % 63.2; Platelet Count 349 10^3/uL (130-400); RDW 13.5 % (11.8-14.1); WBC 5.23 10^3/uL (4.4-10.8)
[2023-05-16 11:38] LABS: ALT 14 U/L (16-63); AST 17 U/L (15-37); Albumin 3.1 g/dL (3.4-5.0); Alkaline Phosphatase 70 U/L (46-116); Anion Gap 9.9 mmol/L (3-11); BUN 37 mg/dL (7-18); Bilirubin, Total 0.7 mg/dL (0.2-1.0); CO2 24.1 mmol/L (21.0-32.0); CREATININE 1.7 mg/dL (0.70-1.30); Calcium 8.9 mg/dL (8.5-10.1); Chloride 103 mmol/L (98-107); Estimated GFR 43.37 (mL/min/1.73m2); Glucose 165 mg/dL (74-106); Potassium 4.5 mmol/L (3.5-5.1); Sodium 137 mmol/L (136-145); Total Protein 7.6 g/dL (6.4-8.2)
[2023-05-18 11:41] LABS: PSA, Ultrasensitive 29.8 ng/mL (<= 4.5)
[2023-05-19 15:47] LABS: Testosterone, Total <7.0 ng/dL (240-950)
== END 2023-06-04 23:59 | disposition home or self-care (01) ==
LOC: INF 04:02
PROVIDERS: PCP Nurse Practitioner Family; Visit Provider Internal Medicine
DX: C61 Malignant neoplasm of prostate (principal); C79.51 Secondary malignant neoplasm of bone; Z45.2 Encounter for adjustment and management of vascular access device
CPT/HCPCS: 36591; 80053; 84153; 84403; 85025

== ENCOUNTER 2023-06-20 03:51 | Outpatient (RCR) | payer MEDICARE, SELFPAY ==
[2023-06-20 11:58] LABS: Absolute Basophil Count 0.06 10^3/uL (0.0-0.2); Absolute Eosinophil Count 0.34 10^3/uL (0.0-0.7); Absolute Lymphocyte Count 1.13 10^3/uL (1.2-3.4); Absolute Monocyte Count 0.61 10^3/uL (0.1-0.8); Absolute Neutrophil Count 2.84 10^3/uL (1.2-6.7); Basophils % 1.2; Eosinophils % 6.8; HCT 29.3 % (40.0-50.0); HGB 9.6 g/dL (13.5-17.5); Lymphocytes % 22.7; MCH 29.7 pg (27.0-33.0); MCHC 32.8 % (32.0-36.0); MCV 91 fL (80-95); MPV 8.8 fL (8.0-11.0); Monocytes % 12.2; Neutrophils % 57.1; Platelet Count 445 10^3/uL (130-400); RBC 3.23 10^6/uL (4.36-5.78); RDW 12.9 % (11.8-14.1); RDW-SD 42.7 fL; WBC 4.98 10^3/uL (4.4-10.8)
[2023-06-20] MEDS: Normal Saline Flush 10 ML SYR IVP (12:02)
[2023-06-20 12:12] LABS: ALT 30 U/L (16-63); AST 25 U/L (15-37); Albumin 2.8 g/dL (3.4-5.0); Alkaline Phosphatase 81 U/L (46-116); Anion Gap 10.6 mmol/L (3-11); BUN 42 mg/dL (7-18); Bilirubin, Total 0.3 mg/dL (0.2-1.0); CO2 22.4 mmol/L (21.0-32.0); CREATININE 1.8 mg/dL (0.70-1.30); Calcium 8.9 mg/dL (8.5-10.1); Chloride 101 mmol/L (98-107); Estimated GFR 40.49 (mL/min/1.73m2); Glucose 167 mg/dL (74-106); Potassium 4.9 mmol/L (3.5-5.1); Sodium 134 mmol/L (136-145); Total Protein 8.1 g/dL (6.4-8.2)
[2023-06-22 11:40] LABS: PSA, Ultrasensitive 52.8 ng/mL (<= 4.5)
[2023-06-23 15:16] LABS: Testosterone, Total <7.0 ng/dL (240-950)
== END 2023-07-04 23:59 | disposition home or self-care (01) ==
LOC: INF 03:51
PROVIDERS: Nurse Practitioner; PCP Nurse Practitioner Family; Visit Provider Internal Medicine
DX: C61 Malignant neoplasm of prostate (principal); Z45.2 Encounter for adjustment and management of vascular access device
CPT/HCPCS: 36591; 80053; 84153; 84403; 85025

== ENCOUNTER 2023-08-04 00:39 | Outpatient (RCR) | payer MEDICARE, SELFPAY ==
[2023-08-04] MEDS: Normal Saline Flush 10 ML SYR IVP (10:20)
[2023-08-04 10:25] LABS: Abs Immature Grans 0.02 10^3/uL (0.0-0.06); Absolute Basophil Count 0.03 10^3/uL (0.0-0.2); Absolute Eosinophil Count 0.31 10^3/uL (0.0-0.7); Absolute Lymphocyte Count 1.11 10^3/uL (1.2-3.4); Absolute Monocyte Count 0.76 10^3/uL (0.1-0.8); Absolute Neutrophil Count 4.44 10^3/uL (1.2-6.7); Basophils % 0.4 %; Eosinophils % 4.6 %; HCT 31.1 % (40.0-50.0); HGB 10.2 g/dL (13.5-17.5); Immature Grans % 0.3 %; Lymphocytes % 16.6 %; MCH 28.5 pg (27.0-33.0); MCHC 32.8 % (32.0-36.0); MCV 87 fL (80-95); MPV 8.9 fL (8.0-11.0); Monocytes % 11.4 %; Neutrophils % 66.7 %; Platelet Count 340 10^3/uL (130-400); RBC 3.58 10^6/uL (4.36-5.78); RDW-SD 51.5 fL; WBC 6.67 10^3/uL (4.4-10.8)
[2023-08-04 10:47] LABS: ALT 19 U/L (16-63); AST 24 U/L (15-37); Albumin 3.1 g/dL (3.4-5.0); Alkaline Phosphatase 71 U/L (46-116); Anion Gap 7.7 mmol/L (3-11); BUN 35 mg/dL (7-18); Bilirubin, Total 0.6 mg/dL (0.2-1.0); CO2 25.3 mmol/L (21.0-32.0); CREATININE 1.9 mg/dL (0.70-1.30); Calcium 8.7 mg/dL (8.5-10.1); Chloride 99 mmol/L (98-107); Estimated GFR 37.95 (mL/min/1.73m2); Glucose 301 mg/dL (74-106); Potassium 4.7 mmol/L (3.5-5.1); Sodium 132 mmol/L (136-145); Total Protein 7.4 g/dL (6.4-8.2)
[2023-08-07 15:14] LABS: PSA, Ultrasensitive 132 ng/mL (<= 4.5)
[2023-08-10 14:51] LABS: Testosterone, Total <7.0 ng/dL (240-950)
== END 2023-08-04 23:59 | disposition home or self-care (01) ==
LOC: INF 00:39
PROVIDERS: Nurse Practitioner; PCP Nurse Practitioner Family; Visit Provider Internal Medicine
DX: C61 Malignant neoplasm of prostate (principal)
CPT/HCPCS: 36591; 80053; 84153; 84403; 85025

== ENCOUNTER 2023-09-12 03:15 | Outpatient (RCR) | payer MEDICARE, SELFPAY ==
--- OUTSIDE RECORDS SUMMARY | 2023-09-12 03:16 | XMS_ITS | Continuity of Care Document ---
Author Name Unknown Organization [facility] Address [address] [place] [id number] Care Team Providers Care Car Icer Name Role Phone VICTORIA FERRELL Primary Care Physician Encounter [facility] NBR [id number] Date(s): 03/22/23 - 03/22/23 [facility] [address] [place] [address]- [place] Discharge Disposition: Home or Self Care Attending Physician: Thomas Curtis MD Admitting Physician: Thomas Curtis MD Referring Physician: Thomas Curtis MD Allergies, Adverse Reactions, Alerts Substance Reaction Severity Status amoxicillin 1 Rash Moderate Active 1rash as adult Assessment and Plan Future Appointments Future Scheduled Tests Radiology* US Lower Ext Venous Duplex Right 09/08/22 * CT Abdomen and Pelvis w/ + w/o Contrast 09/26/22 * CT Abdomen and Pelvis w/o Contrast 09/28/22 Medications AAA - Misc Prescription 100 EA, 0 Refill(s), USE ONE NEW TEST STRIP VIA METER ONCE A DAY TO TEST BLOOD SUGAR, 0 Refill(s) Start Date: 03/22/23 Status: Ordered acetaminophen 500 mg oral tablet [...] Refill(s) Start Date: 12/29/21 Status: Ordered levothyroxine 150 mcg (0.15 mg) oral tablet 150 mcg = 1 tab, Oral, Daily, 0 Refill(s) Start Date: 03/03/23 Status: Ordered levothyroxine 175 mcg (0.175 mg) oral tablet 90 EA, 0 Refill(s), TAKE 1 TABLET BY MOUTH ONCE DAILY FOR THYROID, 0 Refill(s) Start Date: 03/22/23 Status: Ordered MiraLax oral powder for reconstitution 17 g, Oral, BID, PRN constipation, # 527 g, 0 Refill(s), Pharmacy: [facility], 177.8, cm, 12/20/22 14:46:00 EDT, Height/Length Dosing, 85.1, kg, 12/20/22 14:46:00 EDT, Weight Dosing Start Date: 12/22/22 Stop Date: 01/05/23 Status: Ordered Nubeqa 300 mg oral tablet 120 tab, 0 Refill(s), 0 Refill(s) Start Date: 03/22/23 Status: Ordered oxyCODONE 5 mg oral tablet 5 EA, 0 Refill(s), 0 Refill(s) Start Date: 03/22/23 Status: Ordered [id number] oral powder for reconstitution 510 unknown unit, 0 Refill(s), 0 Refill(s) Start Date: 03/22/23 Status: Ordered prochlorperazine 10 mg oral tablet 30 EA, 0 Refill(s), TAKE 1 TABLET BY MOUTH EVERY 6 HOURS NEEDED FOR NAUSEA, 0 Refill(s) Start Date: 03/22/23 Status: Ordered tamsulosin 0.4 mg oral capsule [...] blood pressure Confirmed Active Hypothyroidism Confirmed Active [place]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 Mitral regurgitation 1 Confirmed Active Swelling of lower leg 2, 3 Confirmed Active Urinary frequency Confirmed Active 1moderate 2negative DVT studies 3left Procedures Procedure Date Related Diagnosis Body Site Status Port-A-Cath Placement 1 03/09/23 C ompleted Cystoscopy with Stent Placem ent (Bilateral) 2 01/06/23 Completed Echocardiogram 3 12/19/22 Complete d Operation on neck 4 03/05/22 Compl eted Cataract surgery of both eyes Completed Cystoscopic insertion of ure teric stent 5 Completed 1auto-populated from documented surgical case 2auto-populated from documented surgical case 3EF 48% 42 dics replaced 5for hydronephrosis from lymphadenopathy Vital Signs Most recent to oldest [Reference Range]: 1 Temperature Temporal Artery [36-38 Deg C ] 36.8 Deg C (03/22/23 1:15 PM) Peripheral Pulse Rate [60-100 bpm] 79 bp m (03/22/23 1:15 PM) Respiratory Rate [12-24 br/min] 20 br/mi n (03/22/23 1:15 PM) Blood Pressure [90-140/60-90 mmHg] 133/7 2mmHg (03/22/23 1:15 PM) Mean Arterial Pressure, Cuff [70-110 mmH g] 92 mmHg (03/22/23 1:15 PM) Social History Social History Type Response Tobacco Never tobacco user T obacco Use:. Sex Implantable Device List Procedure Provider Procedure Date Device Type Site Port-A-Cath Placement Sameer Woods MD 03/09/23 Unk nown Chest R Device Identifier Serial Number Lot or Batch Number Manufacturing Date Expiration Date Distinct Identification Code MRI Safety Implantable Status Assigning Authority Unknown Unknown [id number] Unknown 12/03/23 Unknown Unknown Active Unknown Procedure Provider Procedure Date Device Type Site Cystoscopy with Stent Placement Unknown 01/06/23 Unkn own Ureter L Device Identifier Serial Number Lot or Batch Number Manufacturing Date Expiration Date Distinct Identification Code MRI Safety Implantable Status Assigning Authority Unknown Unknown [id number] Unknown 08/25/25 Unknown Unknown Active Unknown Unknown Unknown [id number] Unknown 08/25/25 Unknown Unknown Active Unknown Patient Care team information Care Team Personnel Name: DAMIÁN PA, VICTORIA M Position: No Access Member Role: Primary Care Physician Address: Address: [address] [place] [address]- Care Team Related Persons Name: SANTA MATA Name: GABY ALCALA
--- OUTSIDE RECORDS SUMMARY | 2023-09-12 03:16 | XMS_ITS | Continuity of Care Document ---
Author Name Unknown Organization [facility] Address [address] [place] [address] Care Team Providers Care Senior Qa Analyst Name Role Phone VICTORIA FERRELL Primary Care Physician Encounter [facility] FIN NBR [id number] Date(s): 04/27/23 - 04/27/23 [facility] [address] [place] [address]- Encounter Diagnosis Type 2 diabetes mellitus with unspecified diabetic retinopathy without macular edema(Final) - Acute kidney failure, unspecified(Final) - Elevated prostate specific antigen [PSA](Final) - Discharge Disposition: Home or Self Care Attending Physician: VICTORIA FERRELL Admitting Physician: VICTORIA FERRELL Referring Physician: VICTORIA FERRELL Allergies, Adverse Reactions, Alerts Substance Reaction Severity Status amoxicillin 1 Rash Moderate Active Nubeqa Rash Mild Active penicillins 2 Unknown Active 1rash as adult 2had allergic reaction to amox as adult. told not to take PCN Assessment and Plan Future Appointments Future Scheduled Tests Radiology* CT Chest w/ Contrast 05/17/23 * [facility] Whole Body 05/17/23 * US Lower Ext Venous Duplex Right 09/08/22 * CT Abdomen and Pelvis w/ + w/o Contrast 09/26/22 * CT Abdomen and Pelvis w/ Contrast 04/27/23 * CT Abdomen and Pelvis w/ Contrast 05/17/23 * CT Abdomen and Pelvis w/o Contrast 09/28/22 Medications acetaminophen 500 mg oral tablet 1,000 mg = 2 tab, Oral, TID, PRN as needed for pain, 0 Refill(s) Start Date: 12/20/22 Status: Ordered atorvastatin 40 mg oral tablet 40 mg = 1 tab, Oral, every night at bedtime, 0 Refill(s) Start Date: 10/05/22 Status: Ordered furosemide 20 mg oral tablet 20 mg = 1 tab, Oral, BID, 0 Refill(s) Start Date: 03/30/23 Status: Ordered HYDROcodone-acetaminophen 5 mg-325 mg oral [...] 0 Refill(s) Start Date: 03/03/23 Status: Ordered Macrobid 100 mg oral capsule 100 mg = 1 cap, Oral, BID, # 14 cap, 0 Refill(s), Pharmacy: [facility], 179, cm, 03/31/23 10:54:00 EST, Height, 85, kg, 03/31/23 11:00:00 EST, Weight Dosing Start Date: 04/05/23 Stop Date: 04/12/23 Status: Ordered tamsulosin 0.4 mg oral capsule 0.4 mg = 1 cap, Oral, Daily, # 90 cap, 3 Refill(s), Pharmacy: 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 Mitral regurgitation 1 Confirmed Active Swelling of lower leg 2, 3 Confirmed Active Urinary frequency Confirmed Active 1moderate 2negative DVT studies 3left Procedures Procedure Date Related Diagnosis Body Site Status Cystoscopy with Stent Placem ent (Bilateral) 1 04/07/23 Completed TOE - Transesophageal echoca rdiography 2 03/28/23 Completed Port-A-Cath Placement 3 03/09/23 C ompleted Cystoscopy with Stent Placem ent (Bilateral) 4 01/06/23 Completed Echocardiogram 5 12/19/22 Complete d Operation on neck 6 03/05/22 Compl eted Cataract surgery of both eyes Completed Cystoscopic insertion of ure teric stent 7 Completed 1auto-populated from documented surgical case 2EF 46% 3auto-populated from documented surgical case 4auto-populated from documented surgical case 5EF 48% 62 dics replaced 7for hydronephrosis from lymphadenopathy Results Laboratory List Name Date Comprehensive Metabolic Pane l (Comprehensive Metabolic Profile, Non-Fasting (CMP) (CPT-[id number])) 04/27/23 PSA Diagnostic (PSA (Diagnostic) (CPT-84 153)) 04/27/23 Most recent to oldest [Reference Range]: 1 BUN [7-25 mg/dL] 39 mg/dL *HI* (04/27/23 11:08 AM) Glucose Level [70-109 mg/dL] 167 mg/dL *HI* (04/27/23 11:08 AM) Potassium Level [3.5-5.1 mmol/L] 4.6 mmo l/L (04/27/23 11:08 AM) AST [13-39 IntlUnit/L] 14 IntlUnit/L (04/27/23 11:08 AM) ALT [7-52 IntlUnit/L] 11 IntlUnit/L (04/27/23 11:08 AM) Osmolality [275-295 mOsm/kg] 281 mOsm/kg (04/27/23 11:08 AM) Sodium Level [136-145 mmol/L] 134 mmol/L *LOW* (04/27/23 11:08 AM) Calcium Level [8.6-10.3 mg/dL] 8.9 mg/dL (04/27/23 11:08 AM) Albumin Level [3.5-5.7 g/dL] 3.5 g/dL (04/27/23 11:08 AM) Protein Total [6.4-8.9 g/dL] 6.3 g/dL *LOW* (04/27/23 11:08 AM) Bilirubin Total [0.3-1.0 mg/dL] 0.4 mg/d L (04/27/23 11:08 AM) Alk Phos [34-104 IntlUnit/L] 45 IntlUnit /L (04/27/23 11:08 AM) CO2 [21-31 mmol/L] 22 mmol/L (04/27/23 11:08 AM) PSA Total Diagnostic [<=4.000 ng/mL] 20. 759 ng/mL 1 *HI* (04/27/23 11:08 AM) Chloride Level [98-107 mmol/L] 104 mmol/ L (04/27/23 11:08 AM) A/G Ratio [1.0-2.5 g/dL] 1.3 g/dL (04/27/23 11:08 AM) BUN/Creat Ratio [8.0-20.0] 21.7 *HI* (04/27/23 11:08 AM) Globulin [2.3-3.5 g/dL] 2.8 g/dL (04/27/23 11:08 AM) Creatinine Level [0.70-1.30 mg/dL] 1.80 mg/dL *HI* (04/27/23 11:08 AM) Anion Gap [3.0-12.0] 8.0 (04/27/23 11:08 AM) eGFR CKD-EPI [>=60 mL/min/1.73 m2] 40 mL /min/1.73 m2 *LOW* (04/27/23 11:08 AM) 1Interpretive Data: The concentration of Prostate specific antigen determined from different manufactures and assay methods will vary due to differences in the method and reagent specificity. Values obtained by different methods cannot be used interchangeably and may not be comparable. This is a [employer]??paramagnetic particle, chemiluminescent immunoassay. Social History Social History Type Response Tobacco Never tobacco user T obacco Use:. Sex Implantable Device List Procedure Provider Procedure Date Device Type Site Port-A-Cath Placement Sameer Woods MD 03/09/23 Unk nown Chest R Device Identifier Serial Number Lot or Batch Number Manufacturing Date Expiration Date Distinct Identification Code MRI Safety Implantable Status Assigning Authority Unknown Unknown [id number] Unknown 12/03/23 Unknown Unknown Active Unknown Procedure Provider Procedure Date Device Type Site Cystoscopy with Stent Placement Unknown 01/06/23 Unkn own Ureter L Device Identifier Serial Number Lot or Batch Number Manufacturing Date Expiration Date Distinct Identification Code MRI Safety Implantable Status Assigning Authority Unknown Unknown [id number] Unknown 08/25/25 Unknown Unknown Active Unknown Unknown Unknown [id number] Unknown 08/25/25 Unknown Unknown Active Unknown Patient Care team information Care Team Personnel Name: VICTORIA FERRELL Position: No Access Member Role: Primary Care Physician Address: Address: [address] [place], [place] [address] Care Team Related Persons Name: SANTA MATA Name: GABY ALCALA
--- OUTSIDE RECORDS SUMMARY | 2023-09-12 03:17 | XMS_ITS | Continuity of Care Document ---
Author Name Unknown Organization [facility] Address [address] [place] [id number] Care Team Providers Care Equipment Driver Name Role Phone VICTORIA FRERELL Primary Care Physician Encounter [facility] FIN NBR [id number] Date(s): 08/07/23 - 08/07/[address] [id number] [place] Encounter Diagnosis Cardiomyopathy, unspecified(Final) - Discharge Disposition: Home or Self Care Attending Physician: PRISCILA TOURE MD Admitting Physician: PRISCILA TOURE MD Referring Physician: PRISCILA TOURE MD Allergies, Adverse Reactions, Alerts Substance Reaction Severity Status amoxicillin 1 Rash Moderate Active penicillins 2 Unknown Active Nubeqa Rash Mild Active 1rash as adult 2had allergic reaction to amox as adult. told not to take PCN Assessment and Plan Future Scheduled Tests Radiology* US Lower Ext Venous Duplex Right 09/08/22 * CT Abdomen and Pelvis w/ + w/o Contrast 09/26/22 * CT Abdomen and Pelvis w/ Contrast 04/27/23 * CT Abdomen and Pelvis w/o Contrast 09/28/22 Medications acetaminophen 500 mg oral tablet 1,000 mg = 2 tab, Oral, TID, PRN as needed for pain, 0 Refill(s) Start Date: 12/20/22 Status: Ordered atorvastatin 40 mg oral tablet 40 mg = 1 tab, Oral, every night at bedtime, 0 Refill(s) Start Date: 10/05/22 Status: Ordered Cipro 500 mg oral tablet 500 mg = 1 tab, Oral, every 12 hr, # 14 tab, 0 Refill(s), Pharmacy: [id number], 178, cm,04/13/23 0:06:00 EST, Height, 86.3, kg, 02/08/24 0:12:00 EST, Weight Dosing Start Date: 07/06/23 Stop Date: 07/13/23 Status: Ordered furosemide 20 mg oral tablet [...] BID, # 14 cap, 0 Refill(s), Pharmacy: [facility], 179, cm, 03/31/23 10:54:00 EST, Height, 85, kg, 03/31/23 11:00:00 EST, Weight Dosing Start Date: 04/05/23 Stop Date: 04/12/23 Status: Ordered tamsulosin 0.4 mg oral capsule 0.4 mg = 1 cap, Oral, Daily, # 90 cap, 3 Refill(s), Pharmacy: [facility], 179, cm, 03/03/23 12:44:00 [...] blood pressure Confirmed Active Hypothyroidism Confirmed Active [place]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 Mitral regurgitation [...] 62 dics replaced 7for hydronephrosis from lymphadenopathy Social History Social History Type Response Tobacco Never tobacco user T obacco Use:. Sex Implantable Device List Procedure Provider Procedure Date Device Type Site Port-A-Cath Placement Priscila Woods MD 03/09/23 Unk nown Chest R Device Identifier Serial Number Lot or Batch Number Manufacturing Date Expiration Date Distinct Identification Code MRI Safety Implantable Status Assigning Authority Unknown Unknown [id number] Unknown 12/03/23 Unknown Unknown Active Unknown Procedure Provider Procedure Date Device Type Site Cystoscopy with Stent Placement Unknown 01/06/23 Unkn own Ureter L Device Identifier Serial Number Lot or Batch Number Manufacturing Date Expiration Date Distinct Identification Code MRI Safety Implantable Status Assigning Authority Unknown Unknown [id number] Unknown 08/25/25 Unknown Unknown Active Unknown Unknown Unknown [id number] Unknown 08/25/25 Unknown Unknown Active Unknown US Heart * Event Display: Echo Report Patient Care team information Care Team Personnel Name: VICTORIA FERRELL Position: No Access Member Role: Primary Care Physician Address: Address: [address] [place] [address]- Care Team Related Persons Name: SANTA MATA Name: GABY ALCALA
--- OUTSIDE RECORDS SUMMARY | 2023-09-12 03:17 | XMS_ITS | Continuity of Care Document ---
Author Name Unknown Organization [facility] Address [address] [place] [id number] Care Team Providers Care Cafe Server Name Role Phone VICTORIA FERRELL Primary Care Physician Encounter [facility] FIN NBR [id number] Date(s): 04/07/23 - 04/07/23 [facility] [address] [place] [address]- [place] Discharge Disposition: Home f/u Internal Provider Attending Physician: Estefany Jasso MD Admitting Physician: Estefany Jasso MD Referring Physician: Estefany Jasso MD Allergies, Adverse Reactions, Alerts Substance Reaction Severity Status amoxicillin 1 Rash Moderate Active Nubeqa Rash Mild Active 1rash as adult Assessment and Plan Future Scheduled Tests Radiology* US Lower Ext Venous Duplex Right 09/08/22 * CT Abdomen and Pelvis w/ + w/o Contrast 09/26/22 * CT Abdomen and Pelvis w/o Contrast 09/28/22 Functional Status 04/07/23 Anti-Embolism Device Activity: Applied Anti-Embolism Site Condition: No complic ations 04/07/23 ADLs Independent Antiembolism Device Intermittent pneumat ic compression devices, knee high, bilat Medications acetaminophen 500 mg oral tablet 1,000 [...] BID, # 14 cap, 0 Refill(s), Pharmacy: [facility], 179, cm, 03/31/23 10:54:00 EST, Height, 85, kg, 03/31/23 11:00:00 EST, Weight Dosing Start Date: 04/05/23 Stop Date: 04/12/23 Status: Ordered tamsulosin 0.4 mg oral capsule 0.4 mg = 1 cap, Oral, Daily, # 90 cap, 3 Refill(s), Pharmacy: [facility], 179, cm, 03/03/23 12:44:00 EST, [...] blood pressure Confirmed Active Hypothyroidism Confirmed Active [place]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 Mitral regurgitation [...] Results Laboratory List Name Date Glucose POCT 04/07/23 Glucose POCT 04/07/23 Most recent to oldest [Reference Range]: 1 2 Glucose POC 191 *NA* (04/07/23 7:05 AM) 191 *NA* (04/07/23 6:56 AM) Radiology Reports * Exam Date Time Procedure Performing Provider Status 04/07/23 8:17 AM XR Fluoroscopy Over 1 Hour Daniela Abel; Matt (Verified) Notes: (XR Fluoroscopy Over 1 Hour) Reason For Exam: cysto stent XR Fluoroscopy Over 1 Hour EXAM DESCRIPTION: XR Fluoroscopy Over 1 Hour 04/07/2023 8:17 INDICATION: CYSTO STENT IMPRESSION: Intraoperative fluoroscopy with spot views was provided Fluoroscopy time 15.3 seconds, 2 images Bilateral ureteral stents in satisfactory position. JOB #: [id number] Final Signed by: Jose Angel Shin MD Signed (Electronic Signature): 04/07/2023 8:46 am Vital Signs Most recent to oldest [Reference Range]: 1 2 3 Temperature Temporal Artery [36-38 Deg C] 36.4 Deg C (04/07/23 9:30 AM) 36.5 Deg C (04/07/23 8:10 AM) 36.6 Deg C (04/07/23 7:02 AM) Temperature Temporal Artery (DegF) [97.3-100 Deg F] 97.52 Deg F (04/07/23 9:30 AM) 97.7 Deg F (04/07/23 8:10 AM) Peripheral Pulse Rate [60-100 bpm] 69 bpm (04/07/23 9:45 AM) 71 bpm (04/07/23 9:30 AM) 59 bpm *LOW* (04/07/23 9:15 AM) Heart Rate Monitored [60-100 bpm] 66 bpm (04/07/23 7:02 AM) Respiratory Rate [12-24 br/min] 16 br/min (04/07/23 7:02 AM) Blood Pressure [90-140/60-90 mmHg] 100/59mmHg (04/07/23 9:30 AM) 94/56mmHg (04/07/23 9:15 AM) 85/56mmHg *LOW* (04/07/23 9:00 AM) Mean Arterial Pressure, Cuff [70-110 mmHg] 73 mmHg (04/07/23 9:30 AM) 69 mmHg *LOW* (04/07/23 9:15 AM) 66 mmHg *LOW* (04/07/23 9:00 AM) Mean Arterial Pressure Cuff 73 mmHg (04/07/23 9:30 AM) 68 mmHg (04/07/23 9:15 AM) 66 mmHg (04/07/23 9:00 AM) Blood Pressure Location Left arm (04/07/23 8:30 AM) Left arm (04/07/23 8:25 AM) Left arm (04/07/23 8:20 AM) Blood Pressure Method Automatic (04/07/23 8:30 AM) Automatic (04/07/23 8:25 AM) Automatic (04/07/23 8:20 AM) Weight 85 kg (03/31/23 10:54 AM) Weight Dosing 85.000 kg (03/31/23 10:54 AM) Height 179 cm (03/31/23 10:54 AM) Social History Social History Type Response Tobacco Never tobacco user T obacco Use:. Sex Implantable Device List Procedure Provider Procedure Date Device Type Site Port-A-Cath Placement Sameer Woods MD 03/09/23 Unk nown Chest R Device Identifier Serial Number Lot or Batch Number Manufacturing Date Expiration Date Distinct Identification Code MRI Safety Implantable Status Assigning Authority Unknown Unknown [id number] Unknown 12/03/23 Unknown Unknown Active Unknown Procedure Provider Procedure Date Device Type Site Cystoscopy with Stent Placement Unknown 01/06/23 Unkn own Ureter L Device Identifier Serial Number Lot or Batch Number Manufacturing Date Expiration Date Distinct Identification Code MRI Safety Implantable Status Assigning Authority Unknown Unknown [id number] Unknown 08/25/25 Unknown Unknown Active Unknown Unknown Unknown [id number] Unknown 08/25/25 Unknown Unknown Active Unknown Patient Care team information Care Team Personnel Name: VICTORIA FERRELL Position: No Access Member Role: Primary Care Physician Address: Address: [address] [place] [address]- Care Team Related Persons Name: SANTA MATA Name: GABY ALCALA
--- OUTSIDE RECORDS SUMMARY | 2023-09-12 03:17 | XMS_ITS | Continuity of Care Document ---
Author Name Unknown Organization [facility] Address [address] [place] [address] Care Team Providers Care Garbage Truck Driver Name Role Phone VICTORIA FERRELL Primary Care Physician Encounter [facility] FIN NBR [id number] Date(s): 03/29/23 - 03/29/[address] [address]- [place] Encounter Diagnosis Malignant neoplasm of prostate(Final) - Other rn long term care (current) drug therapy(Final) - Discharge Disposition: Home or Self Care Attending Physician: Andrew Gaxiola MD, FACC, FACP, FASNC, FASE, FSCCT Admitting Physician: Andrew Gaxiola MD, FACC, FACP, FASISIAH, FASE, FSCCT Referring Physician: SARINA DOBSON ([facility] ERNESTO Allergies, Adverse Reactions, Alerts Substance Reaction Severity [...] 0 Refill(s) Start Date: 03/22/23 Status: Ordered [id number] oral powder for reconstitution 510 unknown unit, 0 Refill(s), 0 Refill(s) Start Date: 03/22/23 Status: Ordered prochlorperazine 10 mg oral tablet 30 EA, 0 Refill(s), TAKE 1 TABLET BY MOUTH EVERY 6 HOURS NEEDED FOR NAUSEA, 0 Refill(s) Start Date: 03/22/23 Status: Ordered tamsulosin 0.4 mg oral capsule 0.4 mg = 1 cap, Oral, Daily, 0 Refill(s) Start Date: 12/30/22 Status: Ordered tamsulosin 0.4 mg oral capsule 0.4 mg = 1 cap, Oral, Daily, # 90 cap, 3 Refill(s), Pharmacy: [facility], 179, cm, 03/03/23 12:44:00 EST, [...] blood pressure Confirmed Active Hypothyroidism Confirmed Active [place]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 Mitral regurgitation [...] 42 dics replaced 5for hydronephrosis from lymphadenopathy Social History Social History Type Response Tobacco Never tobacco user T obacco Use:. Sex Implantable Device List Procedure Provider Procedure Date Device Type Site Port-A-Cath Placement Sameer Woods MD 03/09/23 Unk nown Chest R Device Identifier Serial Number Lot or Batch Number Manufacturing Date Expiration Date Distinct Identification Code MRI Safety Implantable Status Assigning Authority Unknown Unknown [id number] Unknown 12/03/23 Unknown Unknown Active Unknown Procedure Provider Procedure Date Device Type Site Cystoscopy with Stent Placement Unknown 01/06/23 Unkn own Ureter L Device Identifier Serial Number Lot or Batch Number Manufacturing Date Expiration Date Distinct Identification Code MRI Safety Implantable Status Assigning Authority Unknown Unknown [id number] Unknown 08/25/25 Unknown Unknown Active Unknown Unknown Unknown [id number] Unknown 08/25/25 Unknown Unknown Active Unknown US Heart * Event Display: Echo Report Patient Care team information Care Team Personnel Name: VICTORIA FERRELL Position: No Access Member Role: Primary Care Physician Address: Address: [address] [place] [address]- Care Team Related Persons Name: SANTA MATA Name: GABY ALCALA
--- OUTSIDE RECORDS SUMMARY | 2023-09-12 03:17 | XMS_ITS | Continuity of Care Document ---
Author Name Unknown Organization [facility] Address [address] [place] [address] Care Team Providers Care Lead Programmer Name Role Phone VICTORIA FERRELL Primary Care Physician Encounter [facility] NBR [id number] Date(s): 07/03/23 - 07/03/23 [facility] [address] [place] [address]- [place] Encounter Diagnosis Flank pain(Discharge Diagnosis) - 07/03/23 Discharge Disposition: Home or Self Care Attending [...] BID, # 14 cap, 0 Refill(s), Pharmacy: [facility], 179, cm, 03/31/23 10:54:00 EST, Height, 85, kg, 03/31/23 11:00:00 EST, Weight Dosing Start Date: 04/05/23 Stop Date: 04/12/23 Status: Ordered tamsulosin 0.4 mg oral capsule 0.4 mg = 1 cap, Oral, Daily, # 90 cap, 3 Refill(s), Pharmacy: [facility], 179, cm, 03/03/23 12:44:00 [...] blood pressure Confirmed Active Hypothyroidism Confirmed Active [place]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 Mitral regurgitation [...] Results Laboratory List Name Date .Urinalysis POCT 07/03/23 Most recent to oldest [Reference Range]: 1 Method of Collect POC Clean Catch *NA* (07/03/23 10:02 AM) Specific [place], Ur POC 1.020 *NA* (07/03/23 10:02 AM) Specimen Color POC [Yellow] Yellow (07/03/23 10:02 AM) Glucose, Urine POC Negative mg/dL *NA* (07/03/23 10:02 AM) Bilirubin, Urine POC [Negative] Negative (07/03/23 10:02 AM) Ketones, Urine POC [Negative mg/dL] Nega tive mg/dL (07/03/23 10:02 AM) Blood, Urine POC [Negative] Moderate *ABN* (07/03/23 10:02 AM) pH, Urine POC 7.0 *NA* (07/03/23 10:02 AM) Protein, Urine POC [Negative mg/dL] 30 m g/dL *ABN* (07/03/23 10:02 AM) Urobilinogen, Urine POC [0.2] 0.2 (07/03/23 10:02 AM) Nitrite, Urine POC [Negative] Negative (07/03/23 10:02 AM) Leuk Esterase, Urine POC [Negative] Larg e *ABN* (07/03/23 10:02 AM) Clarity, Urine POC [Clear] Cloudy *ABN* (07/03/23 10:02 AM) Social History Social History Type Response Tobacco Never tobacco user T obacco Use:. Sex Implantable Device List Procedure Provider Procedure Date Device Type Site Port-A-Cath Placement Sameer Woods MD 03/09/23 Unk nown Chest R Device Identifier Serial Number Lot or Batch Number Manufacturing Date Expiration Date Distinct Identification Code MRI Safety Implantable Status Assigning Authority Unknown Unknown [id number] Unknown 12/03/23 Unknown Unknown Active Unknown Procedure Provider Procedure Date Device Type Site Cystoscopy with Stent Placement Unknown 01/06/23 Unkn own Ureter L Device Identifier Serial Number Lot or Batch Number Manufacturing Date Expiration Date Distinct Identification Code MRI Safety Implantable Status Assigning Authority Unknown Unknown [id number] Unknown 08/25/25 Unknown Unknown Active Unknown Unknown Unknown [id number] 7 Unknown 08/25/25 Unknown Unknown Active Unknown Patient Care team information Care Team Personnel Name: VICTORIA FERRELL Position: No Access Member Role: Primary Care Physician Address: Address: [address] [place], [place] [address] Care Team Related Persons Name: SANTA MATA Name: GABY ALCALA
--- OUTSIDE RECORDS SUMMARY | 2023-09-12 03:17 | XMS_ITS | Continuity of Care Document ---
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 Name Role Phone VICTORIA FERRELL Primary Care Physician Encounter LTTL_MA FIN NBR [id number] Date(s): 04/12/23 - 04/13/[address] [id number]- Encounter Diagnosis Pulmonary edema(Discharge Diagnosis) - 04/13/23 Pleural effusion, left(Discharge Diagnosis) - 04/13/23 CKD (chronic kidney disease)(Discharge Diagnosis) - 04/13/23 Normocytic anemia(Discharge Diagnosis) - 04/13/23 Non-ST elevation (NSTEMI) myocardial infarction(Final) - Pleural effusion, not elsewhere classified(Final) - Chronic pulmonary edema(Final) - 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) - Hypertensive heart and chronic kidney disease with heart failure and stage 1 through stage 4 chronic kidney disease, or unspecified chronic kidney disease (Final) - Heart failure, unspecified(Final) - Chronic kidney disease, unspecified(Final) - Anemia in chronic kidney disease(Final) - Hypotension, unspecified(Final) - NSTEMI (non-ST elevated myocardial infarction)(Discharge Diagnosis) - 04/12/23 Discharge Disposition: Transfer to Higher Level of Care Attending Physician: Gian Birch DO Admitting Physician: Gian Birch DO Allergies, Adverse Reactions, Alerts Substance Reaction Severity Status amoxicillin 1 Rash Moderate Active penicillins 2 Unknown Active Nubeqa Rash Mild Active 1rash as adult 2had allergic reaction to amox as adult. told not to take PCN Assessment and Plan Extracted from: Title:ED Provider Note Author:Gian Birch DO Date:04/12/23 1.??NSTEMI (non-ST elevated myocardial infarction)??I21.4 2.??Anemia??D64.9 3.??CKD (chronic kidney disease)??N18.9 4.??Pleural effusion, left??J90 5.??Pulmonary edema??J81.1 Orders: heparin IV additive 25,000 units [12 unit/kg/hr] + Premix Diluent 500 mL, Total Volume (mL): 500, 500 mL, Soln-IV, IV, 20.71 mL/hr, Start Date: 04/13/23 2:07:00 EST, 86.3 kg, Populate Charting Weight From Order, 2.07, m2 Cardiac Monitoring, 04/12/23 23:39:00 EST, Once, Stop date 04/12/23 23:39:00 EST Pulse Oximetry Continuous, 04/12/23 23:39:00 EST, Once, Stop date 04/12/23 23:39:00 EST Urine Culture, Urine, Stat collect, ST - Stat, 04/12/23 23:39:00 EST, Once, Nurse collect, Collected, 04/13/23 4:47:00 EST, Print Label, [id number] Vital Signs, 04/12/23 23:39:00 EST, Once, Stop date 04/12/23 23:39:00 EST, Q15min until stable and SBP greater than 90, then Q1hour Future Scheduled Tests Radiology* CT Chest w/ Contrast 04/13/23 * NM Bone Imaging Whole Body 04/13/23 * US Lower Ext Venous Duplex Right 09/08/22 * CT Abdomen and Pelvis w/ + w/o Contrast 09/26/22 * CT Abdomen and Pelvis w/ Contrast 04/13/23 * CT Abdomen and Pelvis w/o Contrast [...] BID, # 14 cap, 0 Refill(s), Pharmacy: [id number], 179, cm, 03/31/23 10:54:00 EST, Height, 85, kg, 03/31/23 11:00:00 EST, Weight Dosing Start Date: 04/05/23 Stop Date: 04/12/23 Status: Ordered tamsulosin 0.4 mg oral capsule 0.4 mg = 1 cap, Oral, Daily, # 90 cap, 3 Refill(s), Pharmacy: [id number], 179, cm, 03/03/23 12:44:00 [...] blood pressure Confirmed Active Hypothyroidism Confirmed Active [place]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 Mitral regurgitation [...] from lymphadenopathy Results Laboratory List Name Date Troponin-I High Sensitivity 04/13/23 Urinalysis Microscopic 04/13/23 Urinalysis with Micro if Indicated and C ulture if Indicated 04/13/23 Troponin-I High Sensitivity 04/13/23 Troponin-I High Sensitivity (High Sensit ivityTroponin-I) 04/13/23 Automated Diff 04/12/23 .Morphology (LTTL) 04/12/23 ABO/Rh Echo 04/12/23 ABSC Echo (Antibody Screen Echo) 04/12/23 BNP 04/12/23 CBC w/ Diff 04/12/23 Comprehensive Metabolic Panel 04/12/23 Lipase Level 04/12/23 Magnesium Level 04/12/23 Most recent to oldest [Reference Range]: 1 2 3 WBC [4.8-10.8 K/mcL] 6.0 K/mcL (04/12/23 11:30 PM) RBC [4.70-6.10 Million/mcL] 2.92 Million /mcL *LOW* (04/12/23 11:30 PM) Neutro Auto [42.2-75.2 %] 54.6 % (04/12/23 11:30 PM) Lymph Auto [20.5-51.1 %] 25.5 % (04/12/23 11:30 PM) [place] Auto [1.7-9.3 %] 14.3 % *HI* (04/12/23 11:30 PM) Basophil Auto [0.0-0.8 %] 2.7 % *HI* (04/12/23 11:30 PM) BUN [7-25 mg/dL] 51 mg/dL *HI* (04/12/23 11:30 PM) UA Color [Yellow] Yellow (04/13/23 4:47 AM) UA WBC [0-3] 10-25 *ABN* (04/13/23 4:47 AM) Glucose Level [70-109 mg/dL] 214 mg/dL *HI* (04/12/23 11:30 PM) Potassium Level [3.5-5.1 mmol/L] 4.3 mmol/L (04/12/23 11:30 PM) Baso Absolute [0.00-0.20 K/mcL] 0.20 K/mcL (04/12/23 11:30 PM) MCV [80.0-94.0 fL] 95.0 fL *HI* (04/12/23 11:30 PM) UA Urobilinogen [0.2] 0.2 (04/13/23 4:47 AM) RBC Morph [Normal] Abnormal *ABN* (04/12/23 11:30 PM) UA Bili [Negative] Negative (04/13/23 4:47 AM) UA Ketones [Negative] Negative (04/13/23 4:47 AM) AST [13-39 IntlUnit/L] 14 IntlUnit/L (04/12/23 11:30 PM) ALT [7-52 IntlUnit/L] 10 IntlUnit/L (04/12/23 11:30 PM) MCHC [32.0-37.0 g/dL] 33.6 g/dL (04/12/23 11:30 PM) Osmolality [275-295 mOsm/kg] 286 mOsm/kg (04/12/23 11:30 PM) Sodium Level [136-145 mmol/L] 133 mmol/L *LOW* (04/12/23 11:30 PM) UA RBC [0-3] 50-99 *ABN* (04/13/23 4:47 AM) UA Leuk Est [Negative] Small *ABN* (04/13/23 4:47 AM) Lymph Absolute [1.2-3.4 K/mcL] 1.5 K/mcL (04/12/23 11:30 PM) UA Nitrite [Negative] Negative (04/13/23 4:47 AM) UA Glucose [Negative] Negative (04/13/23 4:47 AM) Hct [42.0-52.0 %] 27.8 % *LOW* (04/12/23 11:30 PM) UA Bacteria [None Seen] 1+ *ABN* (04/13/23 4:47 AM) Lipase Level [11-82 unit/L] 44 unit/L 1 (04/12/23 11:30 PM) Calcium Level [8.6-10.3 mg/dL] 9.0 mg/dL (04/12/23 11:30 PM) [place] Absolute [0.1-0.6 K/mcL] 0.9 K/mcL *HI* (04/12/23 11:30 PM) Albumin Level [3.5-5.7 g/dL] 3.5 g/dL (04/12/23 11:30 PM) Protein Total [6.4-8.9 g/dL] 6.7 g/dL (04/12/23 11:30 PM) UA Protein [Negative] 100 *ABN* (04/13/23 4:47 AM) MCH [27.0-31.0 pg] 31.9 pg *HI* (04/12/23 11:30 PM) Magnesium Level [1.9-2.7 mg/dL] 2.1 mg/dL (04/12/23 11:30 PM) Neutro Absolute [1.4-6.5 K/mcL] 3.3 K/mcL (04/12/23 11:30 PM) Bilirubin Total [0.3-1.0 mg/dL] 0.5 mg/dL (04/12/23 11:30 PM) Hgb [14.0-18.0 g/dL] 9.3 g/dL *LOW* (04/12/23 11:30 PM) Alk Phos [34-104 IntlUnit/L] 52 IntlUnit /L (04/12/23 11:30 PM) UA Blood [Negative] Large *ABN* (04/13/23 4:47 AM) MPV [7.4-10.4 fL] 7.6 fL (04/12/23 11:30 PM) UA Spec Grav [1.001-1.030] 1.010 (04/13/23 4:47 AM) Platelets [130-400 K/mcL] 358 K/mcL (04/12/23 11:30 PM) CO2 [21-31 mmol/L] 21 mmol/L (04/12/23 11:30 PM) Eos Absolute [0.0-0.2 K/mcL] 0.2 K/mcL (04/12/23 11:30 PM) UA Squam Epithelial [0-3] 0-3 (04/13/23 4:47 AM) UA pH [5.00-9.00] 5.50 (04/13/23 4:47 AM) BNP [<=100 pg/mL] 590 pg/mL *HI* (04/12/23 11:30 PM) UA Appear [Clear] Cloudy *ABN* (04/13/23 4:47 AM) Chloride Level [98-107 mmol/L] 101 mmol/L (04/12/23 11:30 PM) RDW-CV [11.5-14.5 %] 18.8 % *HI* (04/12/23 11:30 PM) A/G Ratio [1.0-2.5 g/dL] 1.1 g/dL (04/12/23 11:30 PM) BUN/Creat Ratio [8.0-20.0] 25.5 *HI* (04/12/23 11:30 PM) Globulin [2.3-3.5 g/dL] 3.2 g/dL (04/12/23 11:30 PM) UA WBC Clumps [None Seen] 0-3 *ABN* (04/13/23 4:47 AM) Slide Review Morph Only (04/12/23 11:30 PM) UA Culture Ind?. [No] Yes (04/13/23 4:47 AM) Urine Srce Clean Catch (04/13/23 4:47 AM) Anisocyte 1+ (04/12/23 11:30 PM) Creatinine Level [0.70-1.30 mg/dL] 2.00 mg/dL *HI* (04/12/23 11:30 PM) Plt Estimation Normal (04/12/23 11:30 PM) Troponin-I HS [<=20 ng/L] 5255 ng/L 2, 3 *CRIT* (04/13/23 10:18 AM) 1845 ng/L 4, 5 *CRIT* (04/13/23 4:16 AM) 129 ng/L 6, 7 *CRIT* (04/13/23 12:50 AM) ABO/Rh Echo A POS *Unknown* (04/12/23 11:30 PM) Anion Gap [3.0-12.0] 11.0 (04/12/23 11:30 PM) Eos, Auto [0.00-3.00 %] 2.90 % (04/12/23 11:30 PM) eGFR CKD-EPI [>=60 mL/min/1.73 m2] 36 mL/min/1.73 m2 *LOW* (04/12/23 11:30 PM) ABSC Echo Negative ABSC (04/12/23 11:30 PM) 1Interpretive Data: J-pceryp-i-benzoquinone imine (meabolite of Acetaminophen) will generate erroneously low lipase results in samples for patients that have taken toxic doses of acetaminophen. 2Result Comment: Called & read back byBrandon Mcleod _ at _[id number] RESULT VERIFIED BY REPAT ANALYSIS 3Interpretive Data: The Axel ACCESS high-sensitivity Troponin I (hsTNI) 99 percentile cutoffs forhealthy adults are 12 ng/L or less for females and 20 ng/L or less for males. SERIAL MEASUREMENT IS HIGHLY RECOMMENDED for the diagnosis or exclusion of Acute Coronary Syndromes(ACS). Please refer to the High-Sensitivity Troponin Algorithm 2023 for guidance. As with all markers of [...] heart disease from those who do not. 4Result Comment: called to and read back by Fabrice Marr at 0450/rp 5Interpretive Data: The Axel ACCESS high-sensitivity Troponin I [...] heart disease from those who do not. 6Result Comment: verified by repeat analysis called to and read back by Gaby Prado at 0020/rp 7Interpretive Data: The Axel ACCESS high-sensitivity Troponin I [...] for Microbiology Reports Name Date Urine Culture 04/12/23 Microbiology Reports TEST:Urine Culture STATUS:Order in Progress BODY SITE: SOURCE:Urine, Clean Catch COLLECTED DATE/TIME:04/13/23 4:47 AM PRELIMINARY REPORT No growth first am read Radiology Reports * Exam Date Time Procedure Performing Provider Status 04/13/23 1:[address] Head w/o Contrast Pancho Torres [facility] (Verified) Notes: (CT Head w/o Contrast) Reason For Exam: Evaluate for Brain Mets CT Head w/o Contrast PROCEDURE INFORMATION: Exam: CT Head Exam date and time: 04/13/2023 1:23 AM Age: 67 years old Clinical indication: Screening exam; Additional info: Evaluate for brain mets TECHNIQUE: Imaging protocol: Computed tomography of the head. Coronal and sagittal reformatted images are submitted. Radiation optimization: All CT scans at this facility use at least one of these dose optimization techniques: automated exposure control; mA and/or kV adjustment per patient size (includes targeted exams where dose is matched to clinical indication); or iterative reconstruction. COMPARISON: Cervical spine MRI dated 12/17/2021 FINDINGS: Note that IV contrast was not administered for this study, but was administered for a chest CTA performed 90 minutes earlier, thus the current study exhibits some residual intravascular IV contrast opacification. There is a tiny old lacunar infarct posteriorly within the right basal ganglia. No other abnormal foci of altered attenuation within the remaining cerebral or cerebellar parenchyma. No intracranial mass or evidence for acute territorial ischemia. There is symmetric enlargement of the cerebellar fissures and frontoparietal cerebral sulci, consistent with cerebellar and cerebral cortical atrophy. The ventricles and remaining sulci are normal for age without midline shift or hydrocephalus. No abnormal extraaxial fluid or air collection; no intracranial hemorrhage. Atherosclerotic intracranial vascular calcifications noted. There is inferior left mastoid sclerosis, consistent with chronic sequela of prior mastoiditis, but the remaining mastoid air cells are clear. There is mild right ethmoid and minimal inferomedial left frontal sinus mucosal thickening, but the paranasal sinuses are otherwise clear. There is evidence for prior bilateral ocular lens replacement surgery, but the orbits are otherwise unremarkable. The skull and scalp are unremarkable. IMPRESSION: --No acute intracranial pathology or evidence for intracranial metastatic disease. --However, brain MRI without and with IV gadolinium is more sensitive for detection of early intracranial metastases, and should be considered if clinically indicated. --Chronic findings are described above. THIS DOCUMENT HAS BEEN ELECTRONICALLY SIGNED BY BABS GOOD MD on 04/13/2023 02:00 AM Final Signed by: MacUseAustyn escobar Signed (Electronic Signature): 04/13/2023 2:00 am * Exam Date Time Procedure Performing Provider Status 04/12/23 11:[address] Angio Chest Pancho Torres ( Verified) Notes: (CT Angio Chest) Reason For Exam: Chest Pain r/o PE CT Angio Chest PROCEDURE INFORMATION: Exam: CTA Chest With Contrast Exam date and time: 04/12/2023 11:50 PM Age: 67 years old Clinical indication: Chest pain R/O PE TECHNIQUE: Imaging protocol: Computed tomographic angiography of the chest with 100 mL Isovue 370 IV contrast. Exam focused on the arteries. Multiplanar MIP reconstructed images are submitted. Radiation optimization: All CT scans at this facility use at least one of these dose optimization techniques: automated exposure control; mA and/or kV adjustment per patient size (includes targeted exams where dose is matched to clinical indication); or iterative reconstruction. COMPARISON: Chest x-ray dated 03/09/2023 and chest CTA dated 12/20/2022. Abdomen and pelvis CT scans dated 10/05/2022 and 2022 are also reviewed. FINDINGS: Postop changes with inferior cervical ACDF hardware again partially imaged. Normal caliber, contours, and IV contrast opacification of the central pulmonary arteries and their segmental and subsegmental branch vessels, without evidence for intraluminal soft tissue filling defect which would suggest pulmonary embolism. The tip of the implanted right-sided infusion port is in the superior vena cava. Otherwise, the heart and great vessels are unremarkable, without pericardial effusion, right ventricular strain, or thoracic aortic aneurysm or dissection. Mild mediastinal and bilateral hilar lymphadenopathy is not significantly changed; no axillary lymphadenopathy. There is a minimal left pleural effusion, and there is bilateral lower lobe interlobular septal thickening with Clarita B-lines, mild on the right and minimal on the left, nonspecific but most compatible with pulmonary interstitial edema. There is also a punctate left lower lobe calcified granuloma, but the lungs are otherwise normal, without soft tissue pulmonary nodule, parenchymal consolidation, or pneumothorax, and the airways are patent. Again seen are scattered sclerotic bone lesions, consistent with known blastic bone metastases. Bilateral ureteral stents are partially visualized, as demonstrated on the yarn skeins examiner views. Known retroperitoneal lymphadenopathy is partially imaged. Multiple known bilateral renal cysts are partially imaged: No follow-up imaging is recommended for these cysts. The thoracic and visualized upper abdominal structures are otherwise unremarkable. IMPRESSION: --There is a minimal left pleural effusion, and there is bilateral lower lobe interlobular septal thickening with Clarita B-lines, mild on the right and minimal on the left, nonspecific but most compatible with pulmonary interstitial edema. --Again seen are scattered sclerotic bone lesions, consistent with known blastic bone metastases. --Mild mediastinal and bilateral hilar lymphadenopathy is not significantly changed, and known retroperitoneal lymphadenopathy is partially imaged. --See additional comments above; no pulmonary embolism. THIS DOCUMENT HAS BEEN ELECTRONICALLY SIGNED BY BABS GOOD MD on 04/13/2023 12:46 AM Final Signed by: DomainUserAustyn Signed (Electronic Signature): 04/13/2023 0:46 am Vital Signs Most recent to oldest [Reference Range]: 1 2 3 Temperature Tympanic [36.6-38.1 Deg C] 35.9 Deg C *LOW* (04/13/23 12:12 AM) Temperature Temporal Artery [36-38 Deg C] 35.9 Deg C *LOW* (04/12/23 11:20 PM) Peripheral Pulse Rate [60-100 bpm] 75 bpm (04/13/23 2:00 PM) 78 bpm (04/13/23 1:00 PM) 72 bpm (04/13/23 12:00 PM) Heart Rate Monitored [60-100 bpm] 79 bpm (04/13/23 4:00 PM) 73 bpm (04/13/23 3:00 PM) 76 bpm (04/13/23 2:00 PM) Respiratory Rate [12-24 br/min] 16 br/min (04/13/23 4:00 PM) 17 br/min (04/13/23 3:00 PM) 19 br/min (04/13/23 2:00 PM) Blood Pressure [90-140/60-90 mmHg] 98/60mmHg (04/13/23 4:00 PM) 101/61mmHg (04/13/23 3:00 PM) 102/61mmHg (04/13/23 2:00 PM) Mean Arterial Pressure, Cuff [70-110 mmHg] 73 mmHg (04/13/23 4:00 PM) 74 mmHg (04/13/23 3:00 PM) 75 mmHg (04/13/23 2:00 PM) Mean Arterial Pressure Cuff 72 mmHg (04/13/23 4:00 PM) 75 mmHg (04/13/23 3:00 PM) 74 mmHg (04/13/23 2:00 PM) Weight 86.3 kg (04/12/23 11:20 PM) Weight Dosing 86.300 kg (04/12/23 11:20 PM) Height 178 cm (04/12/23 11:20 PM) Body Mass Index 27.24 kg/m2 (04/12/23 11:20 PM) Social History Social History Type Response Tobacco Never tobacco user T obacco Use:. Sex Implantable Device List Procedure Provider Procedure Date Device Type Site Port-A-Cath Placement Sameer Woods MD [facility]09[facility] Device Identifier Serial Number Lot or Batch Number Manufacturing Date Expiration Date Distinct Identification Code MRI Safety Implantable Status Assigning Authority Unknown Unknown [id number] Unknown 12/03/23 Unknown Unknown Active Unknown Procedure Provider Procedure Date Device Type Site Cystoscopy with Stent Placement Unknown 01/06/23 Unkn own Ureter L Device Identifier Serial Number Lot or Batch Number Manufacturing Date Expiration Date Distinct Identification Code MRI Safety Implantable Status Assigning Authority Unknown Unknown [id number] Unknown 08/25/25 Unknown Unknown Active Unknown Unknown Unknown [id number] Unknown 08/25/25 Unknown Unknown Active Unknown Physician Emergency department Note * Gian Birch, DO: MODIFY, MODIFY, MODIFY, MODIFY, MODIFY, MODIFY, PERFORM Event Display: ED Note Physician Authored Date: [id number] ROSARIO MOSHER :1955 Age:67 years Sex:Male Visit Date:04/12/2023 Primary Care Physician: VICTORIA FERRELL Basic Information Time Seen: Gian Birch, / 04/12/2023 23:24 Chief Complaint Chest Pain History Of Present Illness: This is a 67-year-old male PMH cardiomyopathy, chronic kidney disease, HTN, HLD, hypothyroidism,??chronic??right lower extremity??edema??with multiple repeat??negative ultrasounds, coronary artery disease??currently fighting??metastatic adenocarcinoma of the prostate??with chemotherapy presents to the emergency department??with??chest pain. ??He states the pain??is centrally located radiating to his left shoulder occasionally to the left anterior neck.?? No palpitations, no nausea/vomiting, minimal diaphoresis, no??presyncope or syncope, no shortness of breath. ?? Reviewed transthoracic echocardiogram report from 03/29/2023.?? Calculated EF was 46%.?? There was regional wall motion abnormalities and findings were consistent with abnormal LV relaxation.?? Please refer to cardiology read of the echo for further information. Review of Systems: CONSTITUTIONAL: No fevers or chills. EYES: No change in vision. ENT: No rhinorrhea or nasal congestion. No sore throat. ??No neck pain. CARDIOVASCULAR:??(+)ve chest pain, palpitations or passing out episodes. RESPIRATORY: No cough, shortness of breath or hemoptysis. GI: No abdominal pain. No nausea, vomiting or diarrhea. No melena or hematochezia. : No change in urination - no dysuria, urinary frequency or urgency. SKIN: No rash. NEUROLOGIC: No focal numbness or weakness. No headache. MUSCULOSKELTAL: No midline CTLS tenderness. Moves all 4-extremities PSYCHIATRIC: No anxiety or depression. ?? Review of systems otherwise as stated in HPI Physical Exam Vitals & Measurements T:??35.9?C ??(Tympanic)?? HR:??101??(Peripheral)?? RR:??16?? BP:??109/74?? SpO2:??99%?? HT:??178??cm?? WT:??86.3??kg?? BMI:??27.24?? Pain Score:??8?? GENERAL APPEARANCE: This is a significantly pale appearing??very pleasant??male??with active chest pain but normal hemodynamics. HEENT: NC/AT; EOMI. PERRL, no conjunctival injection; no scleral icterus. TMs not examined. Nares patent. No posterior pharyngeal erythema or tonsillar exudate. NECK: Supple. ??No JVD. HEART: RRR; No M/R/G CHEST: Bilateral lower lobe decreased breath sounds with??crackles appreciated.?? ABDOMEN: S/NT/ND/no peritoneal signs/bowel sounds present. No CVAT. : Deferred. MUSCULOSKELETAL: Normal muscle strength in all major muscle groups with no signs of weakness or asymmetry.? EXTREMITIES:??(+)ve RLE??unilateral leg swelling??with posterior calf tenderness. NEURO: Cranial nerves grossly intact. ??No acute focal neurologic deficit. Medical Decision Making: Diffuse ischemia.?? Differential includes??primary ACS??versus significant anemia??(secondary ACS -Type II NSTEMI). ??Will proceed with??serial EKG/high- sensitivity troponin testing, CT angio chest??considering he has significant right lower extremity swelling when compared to the left??although does state multiple negative ultrasound findings of DVT.?? Initially attempted to treat his discomfort in his chest with??nitroglycerin drip although??this just resulted in??immediate hypotension.?? This was discontinued.?? Fentanyl was given in addition to aspirin load??which??definitely helped his discomfort. ??Will continue with this as needed.?? I am really interested to know what his underlying blood counts??are as he is quite pale appearing??and??recent chemotherapy as of 3 weeks ago.?? Will continue to observe under telemetry monitoring in the emergency department. Procedure No Qualifying Data Reexamination/Reevaluation 12:28 AM:??Discussed case with[facility].??Faxed EKG and imaging??to the transfer center. ??Awaiting callback. ??Patient is resting comfortably??and is much better after the fentanyl. ??He didhave transient hypotension with a nitro drip which was discontinued. ??The acetaminophen order was canceled as the patient already took 500 mg of acetaminophen??and the 5/325 mg hydrocodone. ?? 1:17 AM: Spoke with Dr. Ferris ([facility] [employer] [facility]) - went over??recent echocardiogram findings as well as??CT angiogram??and initial troponin at 20.?? Explained to patient was given aspirin??and did not do well on nitroglycerin due to hypotension.?? He is currently at??0/10 pain level after??doses of fentanyl.?? He remains hemodynamically stable??with current blood pressure of 104/61 and heart rate of 87 with saturations 99% on room air.?? [facility]??felt that??we obtain??head CT to make sure there is no??brain metastasis??or bleeding prior to making decision for heparin??and Plavix. ??He also??wanted to wait for repeat??troponin??before making decision for??final disposition. ?? 1:20 AM: Received phone call from??laboratory indicating repeat troponin was 129.?? Patient was sent to head CT imaging.?? Called [facility] transfer center back who immediately paged cardiology. ??Awaiting callback. ??Will withhold heparin??and Plavix therapy till I speak with cardiology??and get formalread of head CT as being negative. ??My read of the head CT is unremarkable. ?? 1:50 AM:??Dr. Ferris??called back and accepted the patient??to the cardiology service under attending Dr. Jacobs.?? I explained the read formally was??negative for??metastasis or bleed on head CT. ??Will proceed with heparin bolus/heparin drip per cardiac protocol. ??He deferred any??Plavix atpresent time and just wants to proceed with heparin and aspirin.?? He will arrange for cardiac catheterization and bed is currently pending.?? Patient remained in the emergency department until such time he can be??transferred to [facility] for definitive management.?? He remained chest pain 0 and is actually sleeping during my reevaluation. ?? 3:00 AM:??Patient is resting comfortably still with no chest pain whatsoever.?? He drifted off to sleep. ?? 4:15 AM:??Patient was??awake in no apparent distress. ??He denies chest pain. ??Currently blood pressure 90/49, heart rate 79, saturating 92%??on room air.?? As we continue to await??bed placement will??obtain??repeat troponin testing. ?? 5:00 AM: Repeat troponin was 1845.?? Repeat EKG was obtained at 4:57 AM which revealed normal sinusrhythm at 70 bpm; normal axis; normal intervals; continued but significantly improved ST segment depression and T wave inversions when compared to prior EKG.?? Interval improvement noted.?? Patient continues to rest chest pain-free and is actually sleeping. ?? 5:00 AM-7:30 AM: Patient continued to rest easily and currently reports pain 0/10.?? Question of whether or not the patient can proceed with his bone scan and CT contrast of the??right leg??as previously scheduled by oncology. ??Patient already had a contrast load??for CT angiogram and I am concerned about continued contrast load in the setting of potential cardiac catheterization.?? I feel it ismore important to??protect his kidneys??for cardiac cath rather than the routine bone scan??and CT scan of the leg.?? I reached out [place] [facility] [place] 7[place]30 AM and spoke with Pavel in the transfer center. ??Patient is on the list??for bed??placement but likely will not have a bed until discharges later this af ternoon.?? Pavel requested the patient remain n.p.o. after lunchtime but at present time I will allowthe patient to have breakfast and likely lunch prior to going back on NPO.?? Patient understands the concern I have about no routine??bone scan and CT imaging of the lower extremity.?? All questions were answered. ?? 9:00 AM:??This patient's care has been transferred to the incoming physician. We discussed: the patient's chief complaint; labs and imaging that have been completed and those that are still pending; procedures that have been completed and those remaining to be done; any treatment provided and the patient's response to treatment; input from consultants (if any); the remaining treatment plan. The incoming physician will follow up on all pending labs and imaging, make any necessary changes to the current impression and/or treatment plan and provide a final disposition. Assessment/Plan 1.??NSTEMI (non-ST elevated myocardial infarction)??I21.4 2.??Anemia??D64.9 3.??CKD (chronic kidney disease)??N18.9 4.??Pleural effusion, left??J90 5.??Pulmonary edema??J81.1 Orders: heparin IV additive 25,000 units [12 unit/kg/hr] + Premix Diluent 500 mL, Total Volume (mL): 500, 500 mL, Soln-IV, IV, 20.71 mL/hr, Start Date: 04/13/23 2:07:00 EST, 86.3 kg, Populate Charting WeightFrom Order, 2.07, m2 Cardiac Monitoring, 04/12/23 23:39:00 EST, Once, Stop date 04/12/23 23:39:00 EST Pulse Oximetry Continuous, 04/12/23 23:39:00 EST, Once, Stop date 04/12/23 23:39:00 EST Urine Culture, Urine, Stat collect, ST - Stat, 04/12/23 23:39:00 EST, Once, Nurse collect, Collected, 04/13/23 4:47:00 EST, Print Label, [id number] Vital Signs, 04/12/23 23:39:00 EST, Once, Stop date 04/12/23 23:39:00 EST, Q15min until stable and SBP greater than 90, then Q1hour Medication Reconciliation Unchanged acetaminophen (acetaminophen 500 mg oral tablet)2 tab Oral (given by mouth) 3 times a day as neededas needed for pain. ?? atorvastatin (atorvastatin 40 mg oral tablet)1 tab Oral (given by mouth) every night at bedtime. ?? cholecalciferol (Vitamin D3 1000 intl units oral tablet)1 tab Oral (given by mouth) every day. ?? furosemide (furosemide 20 mg oral tablet)1 tab Oral (given by mouth) 2 times a day. ?? HYDROcodone-acetaminophen (HYDROcodone-acetaminophen 5 mg-325 mg oral tablet)1 tab Oral (given by mouth) every 8 hours as needed as needed for pain. ?? insulin glargine (Lantus Solostar Pen 100 units/mL subcutaneous solution)10 Units Subcutaneous (under the skin) every day. ?? levothyroxine (levothyroxine 150 mcg (0.15 mg) oral tablet)1 tab Oral (given by mouth) every day. ?? nitrofurantoin (Macrobid 100 mg oral capsule)1 Capsules Oral (given by mouth) 2 times a day for 7 Days. Refills: 0. ?? tamsulosin (tamsulosin 0.4 mg oral capsule)1 Capsules Oral (given by mouth) every day. Refills: 3. Problem List/Past Medical History Ongoing Adenocarcinoma of prostate Adenoma of colon CAD - Coronary artery disease Carcinoma, metastatic Cardiomyopathy CKD (chronic kidney disease) Congestive heart failure Diabetes Gout High blood pressure HLD - Hyperlipidemia Hypercholesterolemia Hypothyroidism [place] light chain disease Mitral regurgitation Swelling of lower leg Urinary frequency Historical No qualifying data Procedure/Surgical History ???Cystoscopy with Stent Placement (Bilateral) (04/07/2023)???TOE - Transesophageal echocardiography (03/29/2023)???Port-A-Cath Placement (03/09/2023)???Cystoscopy with Stent Placement (Bilateral) ()???Echocardiogram (12/20/2022)???Operation on neck (03/06/2022)???Cataract surgery of botheyes???Cystoscopic insertion of ureteric stent Medication Administration Given nitroglycerin Additive 50 mg [5 mcg/min] + Premix Diluent 250 mL, IV aspirin, 324 mg, Oral fentaNYL, 50 mcg, IV Push Allergies amoxicillin??(Rash) Nubeqa??(Rash) penicillins Social History Alcohol Past Electronic Cigarette/Vaping Electronic Cigarette Use: Never. Home/Environment Lives with Alone. Living situation: Home/Independent. Home equipment: Cane. Substance Use Never Tobacco Never tobacco user Tobacco Use:. Family History Diabetes mellitus: Sister. Heart disease: Father. Diagnostic Results CT Angio Chest 04/13/2023 00:[address] Angio Chest ?? 04/12/23 23:48:17 PROCEDURE INFORMATION: Exam: CTA Chest With Contrast Exam date and time: 04/12/2023 11:50 PM Age: 67 years old Clinical indication: Chest pain R/O PE ?? TECHNIQUE: Imaging protocol: Computed tomographic angiography of the chest with 100 mL Isovue 370 IV contrast. Exam focused on the arteries. Multiplanar MIP reconstructed images are submitted. Radiation optimization: All CT scans at this facility use at least one of these dose optimization techniques: automated exposure control; mA and/or kV adjustment per patient size (includes targeted exams where dose is matched to clinical indication); or iterative reconstruction. ?? COMPARISON: Chest x-ray dated 03/09/2023 and chest CTA dated 12/20/2022. Abdomen and pelvis CT scans dated 10/05/2022 and 2022 are also reviewed. ?? FINDINGS: Postop changes with inferior cervical ACDF hardware again partially imaged. Normal caliber, contours, and IV contrast opacification of the central pulmonary arteries and their segmental and subsegmental branch vessels, without evidence for intraluminal soft tissue filling defect which would suggest pulmonary embolism. The tip of the implanted right-sided infusion port is in the superior vena cava. Otherwise, the heart and great vessels are unremarkable, without pericardial effusion, right ventricular strain, or thoracic aortic aneurysm or dissection. Mild mediastinal and bilateral hilar lymphadenopathy is not significantly changed; no axillary lymphadenopathy. There is a minimal left pleural effusion, and there is bilateral lower lobe interlobular septal thickening with Clarita B-lines, mild on the right and minimal on the left, nonspecific but most compatible with pulmonary interstitial edema. There is also a punctate left lower lobe calcified granuloma, but the lungs are otherwise normal, without soft tissue pulmonary nodule, parenchymal consolidation, or pneumothorax, and the airways are patent. Again seen are scattered sclerotic bone lesions, consistent with known blastic bone metastases. Bilateral ureteral stents are partially visualized, as demonstrated on the yarn skeins examiner views. Known retroperitoneal lymphadenopathy is partially imaged. Multiple known bilateral renal cysts are partially imaged: No follow-up imaging is recommended for these cysts. The thoracic and visualized upper abdominal structures are otherwise unremarkable. ?? IMPRESSION:_-There is a minimal left pleural effusion, and there is bilateral lower lobe interlobular septal thickening with [place]ita B-lines, mild on the right and minimal on the left, nonspecific but most compatible with pulmonary interstitial edema._-Again seen are scattered sclerotic bone lesions, consistent with known blastic bone metastases._-Mild mediastinal and bilateral hilar lymphadenopathy is not significantly changed, and known retroperitoneal lymphadenopathy is partially imaged._-See additional comments above; no pulmonary embolism. ? THIS DOCUMENT HAS BEEN ELECTRONICALLY SIGNED BY BABS GOOD MD on 04/13/2023 12:46 AM ?? Signed By: DomainUser, Generated ECG EKG 11:24 PM: EKG demonstrates normal sinus rhythm at 90 bpm; normal axis; normal intervals; minimal criteria met for left atrial enlargement; diffuse ST depression with T wave inversion with minimalST elevation in aVR consistent with severe global ischemia.?? Dynamic change when comparison made with EKG from 12/20/2022. ?? Repeat EKG??12:46 AM:??No dynamic change from prior EKG. Lab Results CBC and Differential?? LATEST RESULTS?? HISTORICAL RESULTS?? WBC?? 04/12/23 23:30?? 6.0?? 01/18/23?? 8.5?? RBC?? 04/12/23 23:30?? 2.92 ??Low?? 01/18/23?? 3.68 ??Low?? Hgb?? 04/12/23 23:30?? 9.3 ??Low?? 01/18/23?? 11.0 ??Low?? Hct?? 04/12/23 23:30?? 27.8 ??Low?? 01/18/23?? 33.7 ??Low?? MCV?? 04/12/23 23:30?? 95.0 ??High?? 01/18/23?? 91.6?? MCH?? 04/12/23 23:30?? 31.9 ??High?? 01/18/23?? 29.9?? MCHC?? 04/12/23 23:30?? 33.6?? 01/18/23?? 32.6?? RDW-CV?? 04/12/23 23:30?? 18.8 ??High?? 01/18/23?? 14.2?? Platelets?? 04/12/23 23:30?? 358?? 01/18/23?? 367?? MPV?? 04/12/23 23:30?? 7.6?? 01/18/23?? 9.5?? Neutro Auto?? 04/12/23 23:30?? 54.6?? 01/18/23?? 76.8 ??High?? Lymph Auto?? 04/12/23 23:30?? 25.5?? 01/18/23?? 11.5 ??Low?? [place] Auto?? 04/12/23 23:30?? 14.3 ??High?? 01/18/23?? 6.8?? Eos, Auto?? 04/12/23 23:30?? 2.90?? 01/18/23?? 3.60 ??High?? Basophil Auto?? 04/12/23 23:30?? 2.7 ??High?? 01/18/23?? 1.1 ??High?? Neutro Absolute?? 04/12/23 23:30?? 3.3?? 01/18/23?? 6.5?? Lymph Absolute?? 04/12/23 23:30?? 1.5?? 01/18/23?? 1.0 ??Low?? [place] Absolute?? 04/12/23 23:30?? 0.9 ??High?? 01/18/23?? 0.6?? Eos Absolute?? 04/12/23 23:30?? 0.2?? 01/18/23?? 0.3 ??High?? Baso Absolute?? 04/12/23 23:30?? 0.20?? 01/18/23?? 0.1?? RBC Morph?? 04/12/23 23:30?? Abnormal Abnormal?? 09/19/22?? Normal?? Anisocyte?? 04/12/23 23:30?? 1+? Plt Estimation?? 04/12/23 23:30?? Normal?? 09/19/22?? Normal?? Slide Review?? 04/12/23 23:30?? Morph Only?? 01/18/23?? Not Indicated? Routine Chemistry?? LATEST RESULTS?? HISTORICAL RESULTS?? Sodium Level?? 04/12/23 23:30?? 133 ??Low?? 01/18/23?? 132 ??Low?? Potassium Level?? 04/12/23 23:30?? 4.3?? 01/18/23?? 5.0?? Chloride Level?? 04/12/23 23:30?? 101?? 01/18/23?? 100?? CO2?? 04/12/23 23:30?? 21?? 01/18/23?? 25?? Alk Phos?? 04/12/23 23:30?? 52?? 01/18/23?? 68?? AST?? 04/12/23 23:30?? 14?? 01/18/23?? 19?? ALT?? 04/12/23 23:30?? 10?? 01/18/23?? 13 ??Low?? BUN?? 04/12/23 23:30?? 51 ??High?? 01/18/23?? 36 ??High?? Glucose Level?? 04/12/23 23:30?? 214 ??High?? 01/18/23?? 238 ??High?? Creatinine Level?? 04/12/23 23:30?? 2.00 ??High?? 01/18/23?? 1.67 ??High?? BUN/Creat Ratio?? 04/12/23 23:30?? 25.5 ??High?? 01/18/23?? 21.6 ??High?? eGFR CKD-EPI?? 04/12/23 23:30?? 36 ??Low?? 01/18/23?? 44 ??Low?? Calcium Level?? 04/12/23 23:30?? 9.0?? 01/18/23?? 9.2?? Protein Total?? 04/12/23 23:30?? 6.7?? 01/18/23?? 7.7?? Albumin Level?? 04/12/23 23:30?? 3.5?? 01/18/23?? 3.4 ??Low?? Globulin?? 04/12/23 23:30?? 3.2?? 01/18/23?? 4.3 ??High?? A/G Ratio?? 04/12/23 23:30?? 1.1?? 01/18/23?? 0.8 ??Low?? Bilirubin Total?? 04/12/23 23:30?? 0.5?? 01/18/23?? 0.6?? Anion Gap?? 04/12/23 23:30?? 11.0?? 01/18/23?? 7.0?? Lipase Level?? 04/12/23 23:30?? 44?? 12/20/22?? 37?? Magnesium Level?? 04/12/23 23:30?? 2.1?? 12/20/22?? 1.9?? Osmolality?? 04/12/23 23:30?? 286?? 01/18/23?? 281? Cardiac Isoenzymes?? LATEST RESULTS?? HISTORICAL RESULTS?? BNP?? 04/12/23 23:30?? 590 ??High? Troponin-I HS?? 04/12/23 23:30?? 20?? 12/20/22?? 149 ??Critical? Electronically Signed on 04/13/23 08:16 AM Gian Birch DO Patient Care team information Care Team Personnel Name: VICTORIA FERRELL Position: No Access Member Role: Primary Care Physician Address: Address: [address] [place] [address]- Care Team Related Persons Name: SANTA MATA Name: GABY ALCALA
--- OUTSIDE RECORDS SUMMARY | 2023-09-12 03:17 | XMS_ITS | Continuity of Care Document ---
Author Name Unknown Organization [facility] Address [address] [place] [id number] Care Team Providers Care Stereo Equipment Repairer Name Role Phone VICTORIA FERRELL Primary Care Physician Encounter [facility] NBR [id number] Date(s): 04/04/23 - 04/04/[address] [address]- [place] Encounter Diagnosis Dysuria(Discharge Diagnosis) - 04/04/23 Dysuria(Final) - Discharge Disposition: Home or Self Care Attending Physician: Dahiana Devlin APRN Admitting Physician: Dahiana Devlin APRN Allergies, Adverse Reactions, Alerts Substance Reaction Severity Status amoxicillin 1 Rash Moderate Active Nubeqa Rash Mild Active 1rash as adult Assessment and Plan Future Appointments Diagnostic Tests Pending * Urine Culture 04/04/23 Future Scheduled Tests Radiology* US Lower Ext [...] blood pressure Confirmed Active Hypothyroidism Confirmed Active [place]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 Mitral regurgitation 1 Confirmed Active Swelling of lower leg 2, 3 Confirmed Active Urinary frequency Confirmed Active 1moderate 2negative DVT studies 3left Procedures Procedure Date Related Diagnosis Body Site Status TOE - Transesophageal echoca rdiography 1 03/28/23 Completed Port-A-Cath Placement 2 03/09/23 C ompleted Cystoscopy with Stent Placem ent (Bilateral) 3 01/06/23 Completed Echocardiogram 4 12/19/22 Complete d Operation on neck 5 03/05/22 Compl eted Cataract surgery of both eyes Completed Cystoscopic insertion of ure teric stent 6 Completed 1EF 46% 2auto-populated from documented surgical case 3auto-populated from documented surgical case 4EF 48% 52 dics replaced 6for hydronephrosis from lymphadenopathy Social History Social History Type Response Tobacco Never tobacco user T obacco Use:. Sex Implantable Device List Procedure Provider Procedure Date Device Type Site Port-A-Cath Placement Sameer Woods MD 03/09/23 Unk nown Chest R Device Identifier Serial Number Lot or Batch Number Manufacturing Date Expiration Date Distinct Identification Code MRI Safety Implantable Status Assigning Authority Unknown Unknown [id number] Unknown 12/03/23 Unknown Unknown Active Unknown Procedure Provider Procedure Date Device Type Site Cystoscopy with Stent Placement Unknown 01/06/23 Unkn own Ureter L Device Identifier Serial Number Lot or Batch Number Manufacturing Date Expiration Date Distinct Identification Code MRI Safety Implantable Status Assigning Authority Unknown Unknown [id number] Unknown 08/25/25 Unknown Unknown Active Unknown Unknown Unknown [id number] Unknown 08/25/25 Unknown Unknown Active Unknown Patient Care team information Care Team Personnel Name: VICTORIA FERRELL Position: No Access Member Role: Primary Care Physician Address: Address: [address] [place], [place] [address] Care Team Related Persons Name: SANTA MATA Name: GABY ALCALA
--- OUTSIDE RECORDS SUMMARY | 2023-09-12 03:17 | XMS_ITS | Continuity of Care Document ---
Author Name Unknown Organization [facility] Address [address] [place] [address] Care Team Providers Care Licensed Marriage And Family Therapist Name Role Phone VICTORIA FERRELL Primary Care Physician Encounter [facility] NBR [id number] Date(s): 04/13/23 - 04/13/23 [facility] [address] [place] [address]- [place] Discharge Disposition: Home Allergies, Adverse Reactions, Alerts Substance Reaction Severity Status amoxicillin 1 Rash Moderate Active penicillins 2 Unknown Active Nubeqa Rash Mild Active 1rash as adult 2had allergic reaction to amox as adult. told not to take PCN Assessment and Plan Future Scheduled Tests Radiology* CT Chest w/ [...] BID, # 14 cap, 0 Refill(s), Pharmacy: [id number], 179, cm, 03/31/23 10:54:00 EST, Height, 85, kg, 03/31/23 11:00:00 EST, Weight Dosing Start Date: 04/05/23 Stop Date: 04/12/23 Status: Ordered tamsulosin 0.4 mg oral capsule 0.4 mg = 1 cap, Oral, Daily, # 90 cap, 3 Refill(s), Pharmacy: [id number], 179, cm, 03/03/23 12:44:00 [...] blood pressure Confirmed Active Hypothyroidism Confirmed Active [place]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 Mitral regurgitation [...] Safety Implantable Status Assigning Authority Unknown Unknown [id number] Unknown 12/03/23 Unknown Unknown Active Unknown Procedure Provider Procedure Date Device Type Site Cystoscopy with Stent Placement Unknown 01/06/23 Unkn own Ureter L Device Identifier Serial Number Lot or Batch Number Manufacturing Date Expiration Date Distinct Identification Code MRI Safety Implantable Status Assigning Authority Unknown Unknown [id number] Unknown 08/25/25 Unknown Unknown Active Unknown Unknown Unknown [id number] Unknown 08/25/25 Unknown Unknown Active Unknown Patient Care team information Care Team Personnel Name: VICTORIA FERRELL Position: No Access Member Role: Primary Care Physician Address: Address: [address] [place], [place] [address] Care Team Related Persons Name: SANTA MATA Name: GABY ALCALA
--- OUTSIDE RECORDS SUMMARY | 2023-09-12 03:17 | XMS_ITS | Continuity of Care Document ---
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 Name Role Phone VICTORIA FERRELL Primary Care Physician ( [phone] Encounter [facility] NBR [id number] Date(s): 05/17/23 - 05/17/[address] [address]- [place] Discharge Disposition: Home or Self Care Attending Physician: SARINA DOBSON ([facility]), [place]NEST[place] Admitting Physician: SARINA DOBSON ([facility]), [place]ST[place] Referring Physician: SARINA DOBSON ([facility]), [place]NEST[place] Allergies, Adverse Reactions, Alerts Substance Reaction [...] BID, # 14 cap, 0 Refill(s), Pharmacy: [id number], 179, cm, 03/31/23 10:54:00 EST, Height, 85, kg, 03/31/23 11:00:00 EST, Weight Dosing Start Date: 04/05/23 Stop Date: 04/12/23 Status: Ordered tamsulosin 0.4 mg oral capsule 0.4 mg = 1 cap, Oral, Daily, # 90 cap, 3 Refill(s), Pharmacy: [id number], 179, cm, 03/03/23 12:44:00 [...] blood pressure Confirmed Active Hypothyroidism Confirmed Active [place]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 Mitral regurgitation [...] dics replaced 7for hydronephrosis from lymphadenopathy Results Radiology Reports * Exam Date Time Procedure Performing Provider Status 05/17/23 11:43 AM [facility] Bone Imaging Whole Body Jovanny Howard; Auth (Verified) Notes: (NM Bone Imaging Whole Body) Reason For Exam: METASTATIC PROSTATE CANCER NM Bone Imaging Whole Body EXAM DESCRIPTION: CA Bone Imaging Whole Body 05/17/2023 11:43 RADIOPHARM: A whole-body bone scan was performed following IV administration of 23.6 mCi of 99 M technetium MDP. INDICATION: METASTATIC PROSTATE CANCER COMPARISON: CT chest, abdomen and pelvis examinations from 05/17/2023 FINDINGS: Focal area of uptake in the upper lumbar spine suspicious for metastatic disease corresponding to sclerotic lesion seen on recent CT examination. Mild uptake in the sacrum bilaterally suspicious for metastatic disease corresponding to sclerotic lesions on CT examination. Small focal area of uptake involving a right anterolateral lower rib corresponding to subtle sclerotic lesion on CT examination suspicious for metastatic disease. No additional areas of abnormal uptake. IMPRESSION: Small focal areas of abnormal uptake suspicious for metastatic disease involving the upper lumbar spine, bilateral sacrum, as well as a right anterolateral lower rib corresponding to small sclerotic lesions seen on recent CT examinations. No additional areas of abnormal uptake. JOB #: [id number] Final Signed by: Jose Angel Shin MD Signed (Electronic Signature): 05/17/2023 2:59 pm * Exam Date Time Procedure Performing Provider Status 05/17/23 8:[address] Abdomen and Pelvis w/ Contrast Netta Parker; Auth (Verified) Notes: (CT Abdomen and Pelvis w/ Contrast) Reason For Exam: METASTATIC PROSTATE CANCER CT Abdomen and Pelvis w/ Contrast EXAM DESCRIPTION: CT Abdomen and Pelvis w/ Contrast 05/17/2023 INDICATION: METASTATIC PROSTATE CANCER TECHNIQUE: All CT scans at this facility use at least one of these dose optimization techniques: Automated exposure control; mA and/or kV adjustment per patient size (includes targeted exams where dose is matched to clinical indication); or iterative reconstruction. Technique: Axial CT images of the abdomen/pelvis with IV contrast administration 100 cc of Isovue-300 contrast was utilized COMPARISON: CT abdomen/pelvis without contrast from 12/20/2022 FINDINGS: No focal hepatic lesion. Normal enhancement of the main hepatic veins and main portal vein Normal spleen size without focal mass No calcified gallstones in the gallbladder. Adrenal glands and pancreas appear within normal limits Bilateral ureteral stents in satisfactory position. Scattered low-attenuation renal lesions bilaterally most consistent with cysts which were seen previously. No hydronephrosis or perinephric fluid collection on either side Normal caliber abdominal aorta with scattered atherosclerotic calcifications Confluent retroperitoneal adenopathy in the left para-aortic and inter aortocaval regions extending into the left iliac chain. Interval improvement noted in retroperitoneal adenopathy in the distal left para-aortic and proximal left iliac chain regions. Component of right iliac chain adenopathy cannot be fully excluded. This may reflect non-opacified small bowel loops in this region. The prostate gland is mildly enlarged with indentation of the bladder base as described previously. No bowel dilatation to suggest obstruction or ileus. No free intraperitoneal air, ascites or inflammatory changes. Normal appendix. Small fat containing left inguinal hernia suspected. Sclerotic lesions in the iliac wing, sacrum, upper lumbar spine and proximal femur bilaterally suspicious for metastatic disease which were seen previously. IMPRESSION: Bilateral ureteral stents in place. No significant hydronephrosis. Retroperitoneal adenopathy as detailed above, with interval improvement in the distal left para-aortic and proximal left iliac chain regions since prior study. Scattered sclerotic osseous lesions suspicious for metastatic disease without significant change. Additional nonacute findings as detailed above. JOB #: [id number] Final Signed by: Jose Angel Shin MD Signed (Electronic Signature): 05/17/2023 10:00 am * Exam Date Time Procedure Performing Provider Status 05/17/23 8:[address] Chest w/ Contrast Netta Vega [facility] (Verified) Notes: (CT Chest w/ Contrast) Reason For Exam: METASTATIC PROSTATE CANCER CT Chest w/ Contrast EXAM DESCRIPTION: CT Chest w/ Contrast 05/17/2023 INDICATION: METASTATIC PROSTATE CANCER TECHNIQUE: All CT scans at this facility use at least one of these dose optimization techniques: Automated exposure control; mA and/or kV adjustment per patient size (includes targeted exams where dose is matched to clinical indication); or iterative reconstruction. Technique: Axial CT images of the chest with IV contrast administration 100 cc of Isovue-300 contrast was utilized COMPARISON: CT angiography chest examinations from 04/12/2023 and 12/20/2022 FINDINGS: Subcarinal adenopathy without significant change. Additional borderline sized and nonenlarged mediastinal lymph nodes in the right paratracheal, AP window and prevascular space regions. Mild bilateral hilar adenopathy. No axillary adenopathy. No pericardial effusion. No central pulmonary artery filling defect identified. Normal caliber thoracic aorta No focal infiltrate or pulmonary mass with mild curvilinear scarring in both lower lobes. No significant emphysematous changes. No central endobronchial filling defect identified No pleural effusion or pneumothorax. Scattered sclerotic lesions in the thoracolumbar junction region suspicious for metastatic disease which were seen previously. IMPRESSION: No focal infiltrate or pulmonary mass with mild curvilinear scarring in both lower lobes Subcarinal adenopathy without significant change from prior study. Bilateral hilar adenopathy as described previously. No additional mediastinal adenopathy with scattered borderline sized and nonenlarged mediastinal lymph nodes. No pleural effusion or pneumothorax Sclerotic lesions in the thoracolumbar junction region suspicious for metastatic disease which were seen previously. JOB #: [id number] Final Signed by: Jose Angel Shin MD Signed (Electronic Signature): 05/17/2023 9:50 am Social History Social History Type Response Tobacco Never tobacco user T obacco Use:. Sex Implantable Device List Procedure Provider Procedure Date Device Type Site Port-A-Cath Placement Sameer Woods MD 03/09/23 Unk nown Chest R Device Identifier Serial Number Lot or Batch Number Manufacturing Date Expiration Date Distinct Identification Code MRI Safety Implantable Status Assigning Authority Unknown Unknown [id number] Unknown 12/03/23 Unknown Unknown Active Unknown Procedure Provider Procedure Date Device Type Site Cystoscopy with Stent Placement Unknown 01/06/23 Unkn own Ureter L Device Identifier Serial Number Lot or Batch Number Manufacturing Date Expiration Date Distinct Identification Code MRI Safety Implantable Status Assigning Authority Unknown Unknown [id number] Unknown 08/25/25 Unknown Unknown Active Unknown Unknown Unknown [id number] Unknown 08/25/25 Unknown Unknown Active Unknown Patient Care team information Care Team Personnel Name: VICTORIA FERRELL Position: No Access Member Role: Primary Care Physician Address: Address: [address] [place] [address]- Care Team Related Persons Name: SANTA MTAA Address: Home Name: GABY ALCALA Address: Home
--- OUTSIDE RECORDS SUMMARY | 2023-09-12 03:17 | XMS_ITS | Continuity of Care Document ---
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 Name Role Phone VICTORIA FERRELL Primary Care Physician Encounter [facility] NBR [id number] Date(s): 04/04/23 - 04/04/23 [facility] [address] [place], [place] [id number]- [place] Encounter Diagnosis Dysuria(Discharge Diagnosis) - 04/04/23 Penile pain(Discharge Diagnosis) - 04/04/23 Prostate cancer metastatic to intrapelvic lymph node(Discharge Diagnosis) - 04/04/23 Incomplete bladder emptying(Discharge Diagnosis) - 04/04/23 Discharge Disposition: Home or Self Care Attending Physician: Dahiana Devlin APRN Referring Physician: VICTORIA FERRELL Allergies, Adverse Reactions, Alerts Substance Reaction Severity Status amoxicillin 1 Rash Moderate Active Nubeqa Rash Mild Active 1rash as adult Assessment and Plan Extracted from: Title:Uro-Office Visit Note Author:Dahiana Devlin APRN Date:04/04/23 1.??Penile pain??N48.89 1. Topical lidocaine given to patient with instructions to apply to his glans and push a small amount down into the meatal opening when pain occurs. 2. Take 1000 mg of tylenol in the morning, and at lunch. At bedtime take 500 mg of tylenol and one vicodin 5/325. Do this consistently for a week. ?? 2.??Prostate cancer metastatic to intrapelvic lymph node??C61 Currently in treatment with [facility] medical oncology. ?? 3.??Incomplete bladder emptying??R33.9 1. I am concerned there may be a correlation between UTI, and penile pain with incomplete bladder emptying.?? We discussed the process of CIC and trying it at night prior to bedtime to see if he gets a better nights sleep by starting off with an empty bladder. He is willing to consider it. 2. Continue low dose tamsulosin. ?? Dysuria??R30.0 1. Urinalysis is positive for nitrates, leukocytes and blood and will be sent for culture. 2. Start Cefpoxidime 200 mg po bid x 5 days. 3. He will come to the clinic on afternoon to provide a urine sample to see if it has cleared on the antibiotics. He is scheduled for bilateral ureteral stent change on Monday but if??urine has not cleared,??this will need to be postponed. ?? Ordered: Urine Culture, Urine, Clean Catch, Routine collect, RT - Routine, 04/04/23 15:04:00 EST, Once, Nurse collect, Dysuria, Not Required ?? Mr. Keys is a very pleasant 67 year-old ??man with metastatic prostate cancer currently in treatment with [facility]medical oncology. ??He has bilateral??extrinsic ureteral obstruction from?? extensive lymphadenopathy.?? This is being managed with chronic indwelling bilateral ureteral stents.? He came in today for penile pain, and??recommendations were discussed.? He does have incomplete bladder emptying, with a PVR of??240 mL, and was encouraged to continue taking tamsulosin. His urine looks suspicious for UTI and he was started empirically on a course of antibiotics. He is due for bilateral ureteral stent exchange this coming Monday. 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 Mitral regurgitation [...] 52 dics replaced 6for hydronephrosis from lymphadenopathy Results Laboratory List Name Date .Urinalysis POCT 04/04/23 Most recent to oldest [Reference Range]: 1 Method of Collect POC Clean Catch *NA* (04/04/23 3:02 PM) Specific [place], Ur POC 1.010 *NA* (04/04/23 3:02 PM) Specimen Color POC [Yellow] Yellow (04/04/23 3:02 PM) Glucose, Urine POC Negative mg/dL *NA* (04/04/23 3:02 PM) Bilirubin, Urine POC [Negative] Negative (04/04/23 3:02 PM) Ketones, Urine POC [Negative mg/dL] Nega tive mg/dL (04/04/23 3:02 PM) Blood, Urine POC [Negative] Small *ABN* (04/04/23 3:02 PM) pH, Urine POC 6.0 *NA* (04/04/23 3:02 PM) Protein, Urine POC [Negative mg/dL] 30 m g/dL *ABN* (04/04/23 3:02 PM) Urobilinogen, Urine POC [0.2] 0.2 (04/04/23 3:02 PM) Nitrite, Urine POC [Negative] Positive *ABN* (04/04/23 3:02 PM) Leuk Esterase, Urine POC [Negative] Smal l *ABN* (04/04/23 3:02 PM) Clarity, Urine POC [Clear] Cloudy *ABN* (04/04/23 3:02 PM) Vital Signs Most recent to oldest [Reference Range]: 1 Peripheral Pulse Rate [60-100 bpm] 74 bp m (04/04/23 2:23 PM) Blood Pressure [90-140/60-90 mmHg] 98/52 mmHg (04/04/23 2:23 PM) Mean Arterial Pressure, Cuff [70-110 mmH g] 67 mmHg *LOW* (04/04/23 2:23 PM) Social History Social History Type Response Tobacco Never tobacco user T obacco Use:. Sex Implantable Device List Procedure Provider Procedure Date Device Type Site Port-A-Cath Placement Sameer Woods MD 03/09/23 Unk nown Chest R Device Identifier Serial Number Lot or Batch Number Manufacturing Date Expiration Date Distinct Identification Code MRI Safety Implantable Status Assigning Authority Unknown Unknown [id number] Unknown 12/03/23 Unknown Unknown Active Unknown Procedure Provider Procedure Date Device Type Site Cystoscopy with Stent Placement Unknown 01/06/23 Unkn own Ureter L Device Identifier Serial Number Lot or Batch Number Manufacturing Date Expiration Date Distinct Identification Code MRI Safety Implantable Status Assigning Authority Unknown Unknown [id number] Unknown 08/25/25 Unknown Unknown Active Unknown Unknown Unknown [id number] Unknown 08/25/25 Unknown Unknown Active Unknown Physician Outpatient Note * Dahiana Devlin, FABRICATION SPECIALIST: PERFORM Event Display: Office Clinic Note Physician Authored Date: [id number] ROSARIO KEYS :1955 Age:67 years Sex:Male Visit Date:04/04/2023 Primary Care Physician: VICTORIA FERRELL Chief Complaint penile pain History of Present Illness Mr. Keys is a pleasant 67 year-old man who presents to the clinic today for urinary difficulties in the context of metastatic prostate cancer causing bilateral extrinsic distal ureteral obstruction managed with bilateral ureteral stents.? His stents were most recently changed on 01/06/23.?? He is scheduled for his next stent exchange on 04/07/23. ?? He tells me today his bilateral stent pain is much better. He is now experiencing intermittent penile pain. He describes the location being at the tip of the penis. He rates the pain anywhere between a 1/2 or a 9/10 on the pain scale. ??Most bothersome at night after he gets up to void. He is more comfortable sitting up in a recliner than lying supine. The pain occurs with micturition and immediately after, sometimes lingering for quite some time. ?? Urinalysis is positive for nitrates, small blood, and small leukocytes. ?? The flank pain related to urination has currently resolved.?? He??still notices discomfort??over his??bladder if it is too full.? He has not had much trouble with urinary urgency.?? He voids aboutevery 2h while awake.?? He does have bothersome nocturia x 4-5.?? He was prescribed tamsulosin, buthe did??not find it helped very much.? His PVR today was elevated at??240 mL, up from 191 mL at his last visit.? He??initially presented in?? August 2021??with a PSA of??35.?? A pelvic MRI was obtained on 10/26/21;this showed a ??PI-RADS 5 lesion.? He underwent targeted biopsy at [facility] in December 2021; this was negative.? [...] 41 & 1.59 respectively, eGFR 47. ?? PET scan 03/03/23 with the following impression: PSMA positive shahida metastases in the neck, abdomen, and pelvis, markedly decreased in size compared to prior FDG PET/CT of 10/23/22. Multiple PSMA positive sclerotic osseous metastases. PSMA positive malignancy in the posterior right lobe of prostate. ? PSA: 12/27/22:? 38.10 ?? Bladder Scan PVR Entered On: ??04/04/2023 15:02 EST?Performed On: ??04/04/2023 15:02 EST by Noni Pelletier? Bladder Scan PVR?? Void Prior to Bladder Scan : ?Yes?? Bladder Distention : ?Absent?? Patient States Need to Void : ?No?? Position During Bladder Scan : ?Supine?? Bladder Scan Volume : ?240 mL?? Noni Pelletier - 04/04/2023 15:02 EST? Result type:?Bladder Scan PVR Amb - Text Result date:?April 04, 2023 15:02 EST Result status:?Auth (Verified) Result title:?Bladder Scan PVR Performed by:?Noni Pelletier on April 04, 2023 15:02 EST Verified by:?Jose Pelletierinique on April 04, 2023 15:02 EST Encounter info:?[id number], [id number], Clinic, 04/04/2023 -?? [1] Review of Systems Constitutional:?No??fevers,?No??chills,?No??sweats Eye:?No??recent visual problems ENT:?No??ear pain,?No??nasal congestion,?No??sore throat Respiratory:?Positive for??shortness of breath,?No??cough Cardiovascular:?Positive for??Hyperlipidemia,?Positive for??Hypertension,?No??syncope Gastrointestinal:?No??nausea,?No??vomiting,?No??diarrhea Genitourinary:?Positive for??metastatic prostate cancer, micro hematuria, bilateral hydronephrosis, bilateral ureteral stents Brent/Lymph:?Positive for??RLE swelling in the context of??lymphadenopathy,?Positive for??swollen lymph glands Endocrine:?Positive for??Type II Diabetes, Hypothyroidism Musculoskeletal:??Positive for??back pain,??Positive for??Gout,??Positive for??joint pain,??No??muscle pain,??Positive for??decreased range of motion Integumentary:?No??rash,?No??pruritus,?No??abrasions Neurologic: Alert & oriented X 4 Psychiatric:?No??anxiety,?No??depression Physical Exam Vitals & Measurements HR:??74??(Peripheral)?? BP:??98/52?? SpO2:??95%?? GENERAL APPEARANCE:??alert and oriented in NAD; appropriate with good affect.?? NEURO:??grossly intact. HEENT:??NCAT; EOMI.?? NECK:??supple.?? CHEST:??symmetric excursions.?? ABDOMEN:??soft, NT, ND. MUSCULOSKELETAL:??good gait and station.?? EXTREMITIES:??no c/c/e??.?? BACK/SPINE:??deferred. :??deferred. Assessment/Plan 1.??Penile pain??N48.89 1. Topical lidocaine given to patient with instructions to apply to his glans and push a small amount down into the meatal opening when pain occurs. 2. Take 1000 mg of tylenol in the morning, and at lunch. At bedtime take 500 mg of tylenol and one vicodin 5/325. Do this consistently for a week. ?? 2.??Prostate cancer metastatic to intrapelvic lymph node??C61 Currently in treatment with [facility] medical oncology. ?? 3.??Incomplete bladder emptying??R33.9 1. I am concerned there may be a correlation between UTI, and penile pain with incomplete bladder emptying.?? We discussed the process of CIC and trying it at night prior to bedtime to see if he getsa better nights sleep by starting off with an empty bladder. He is willing to consider it. 2. Continue low dose tamsulosin. ?? Dysuria??R30.0 1. Urinalysis is positive for nitrates, leukocytes and blood and will be sent for culture. 2. Start Cefpoxidime 200 mg po bid x 5 days. 3. He will come to the clinic on afternoon to provide a urine sample to see if it has cleared on the antibiotics. He is scheduled for bilateral ureteral stent change on Monday but if??urine has not cleared,??this will need to be postponed. Ordered: Urine Culture, Urine, Clean Catch, Routine collect, RT - Routine, 04/04/23 15:04:00 EST, Once, Nurse collect, Dysuria, Not Required ?? Mr. Keys is a very pleasant 67 year-old ??man with metastatic prostate cancer currently in treatment with [facility]medical oncology. ??He has bilateral??extrinsic ureteral obstruction from?? extensive lymphadenopathy.?? This is being managed with chronic indwelling bilateral ureteral stents.?He came in today for penile pain, and??recommendations were discussed.? He does have incomplete bladder emptying, with a PVR of??240 mL, and was encouraged to continue taking tamsulosin. His urinelooks suspicious for UTI and he was started empirically on a course of antibiotics. He is due for bilateral ureteral stent exchange this coming Monday. Problem List/Past Medical History Ongoing Adenocarcinoma of prostate Adenoma of colon CAD - Coronary artery disease Carcinoma, metastatic Cardiomyopathy CKD (chronic kidney disease) Congestive heart failure Diabetes Gout High blood pressure HLD - Hyperlipidemia Hypercholesterolemia Hypothyroidism [place] light chain disease Mitral regurgitation Swelling of lower leg Urinary frequency Historical No qualifying data Procedure/Surgical History ???TOE - Transesophageal echocardiography (03/29/2023)???Port-A-Cath Placement (03/09/2023)???Cystoscopy with Stent Placement (Bilateral) (01/06/2023)???Echocardiogram (12/20/2022)???Operation on neck (03/06/2022)???Cataract surgery of both eyes???Cystoscopic insertion of ureteric stent Medications acetaminophen 500 mg oral tablet, 1000 mg= 2 tab, Oral, TID, PRN atorvastatin 40 mg oral tablet, 40 mg= 1 tab, Oral, every night at bedtime furosemide 20 mg oral tablet, 20 mg= 1 tab, Oral, BID HYDROcodone-acetaminophen 5 mg-325 mg oral tablet, 1 tab, Oral, every 8 hr, PRN Lantus Solostar Pen 100 units/mL subcutaneous solution, 10 units, Subcutaneous, Daily levothyroxine 150 mcg (0.15 mg) oral tablet, 150 mcg= 1 tab, Oral, Daily tamsulosin 0.4 mg oral capsule, 0.4 mg= 1 cap, Oral, Daily, 3 refills Vitamin D3 1000 intl units oral tablet, 25 mcg= 1 tab, Oral, Daily Allergies amoxicillin??(Rash) Nubeqa??(Rash) Social History Alcohol Past Electronic Cigarette/Vaping Electronic Cigarette Use: Never. Home/Environment Lives with Alone. Living situation: Home/Independent. Home equipment: Cane. Substance Use Never Tobacco Never tobacco user Tobacco Use:. Family History Diabetes mellitus: Sister. Heart disease: Father. Lab Results Test Name Test Result Date/Time Method of Collect POC Clean Catch 04/04/2023 15:02 EST Specimen Color POC Yellow 04/04/2023 15:02 EST Clarity, Urine POC Cloudy 04/04/2023 15:02 EST Glucose, Urine POC Negative 04/04/2023 15:02 EST Bilirubin, Urine POC Negative 04/04/2023 15:02 EST Ketones, Urine POC Negative 04/04/2023 15:02 EST Specific [place], Ur POC 1.010 04/04/2023 15:02 EST pH, Urine POC 6.0 04/04/2023 15:02 EST Protein, Urine POC 30 04/04/2023 15:02 EST Urobilinogen, Urine POC 0.2 04/04/2023 15:02 EST Nitrite, Urine POC Positive 04/04/2023 15:02 EST Blood, Urine POC Small 04/04/2023 15:02 EST Leuk Esterase, Urine POC Small 04/04/2023 15:02 EST [1]??Bladder Scan PVR; Noni Pelletier 04/04/2023 15:02 EST Electronically Signed on 04/04/23 04:53 PM Dahiana Devlin APRN Patient Care team information Care Team Personnel Name: VICTORIA FERRELL Position: No Access Member Role: Primary Care Physician Address: Address: [address] [place] [address]- Care Team Related Persons Name: SANTA MATA Name: GABY ALCALA
--- OUTSIDE RECORDS SUMMARY | 2023-09-12 03:18 | XMS_ITS | Patient Health Record ---
Author Name Unknown [facility] Address [address] [place] [address] Care Team Providers Care Pattern Shop Supervisor Name Role Phone CecyHuber escobar Unavailable [phone] ALLERGIES Allergen (clinical drug ingredient) Drug/Non Drug [...] (250.00) Active confirmed Diabetes mellitus type II (90011869) Problem Traumatic plantar fasciitis (728.71) Active confirmed Traumatic plantar fasciitis (134483442) Problem FOOT PAIN (729.5) Active confirmed Foot pain (42222893) Problem Type 2 diabetes mellitus (E11.9) Active confirmed 92239219 Problem Onychomycosis (B35.1) Active confirmed 924974285 Problem Toe pain, right (M79.674) Active confirmed 250859774 PLAN OF TREATMENT No Information Insurance Providers Payer Name Payer Address Payer Phone Subscriber Number Group Number Insured Name Patient Relationship to Insured Coverage Start Date Coverage End Date [employer] [facility] [address] [place] [address] [id number] 1 HUBER MOSHER Self - patient is the insured [place] [address] HUBER MOSHER Self - patient is the insured MEDICAL (GENERAL) HISTORY Medical History History ICD Code Diabetes Mellitis, Type II, insulin, germania g term (current) Hypothyroidism Plantar fasciitis Grief reaction Onychia, toe Overweight Hyperlipidemia, mixed Hypertension, benign Sebaceous cyst
--- OUTSIDE RECORDS SUMMARY | 2023-09-12 03:18 | XMS_ITS | Continuity of Care Document ---
Author Name Unknown Organization [facility] Address [address] [place] [id number] Care Team Providers Care 7Th Grade Teacher Name Role Phone VICTORIA FERRELL Primary Care Physician Encounter [place] FIN NBR [id number] Date(s): 07/03/23 - 07/03/[address] [address]- [place] Encounter Diagnosis Flank pain(Discharge Diagnosis) - 07/03/23 Discharge Disposition: Home or Self Care Attending Physician: Estefany Jasso MD Admitting Physician: Estefany Jasso MD Allergies, Adverse Reactions, [...] BID, # 14 cap, 0 Refill(s), Pharmacy: [facility], 179, cm, 03/31/23 10:54:00 EST, Height, 85, kg, 03/31/23 11:00:00 EST, Weight Dosing Start Date: 04/05/23 Stop Date: 04/12/23 Status: Ordered tamsulosin 0.4 mg oral capsule 0.4 mg = 1 cap, Oral, Daily, # 90 cap, 3 Refill(s), Pharmacy: [facility], 179, cm, 03/03/23 12:44:00 [...] blood pressure Confirmed Active Hypothyroidism Confirmed Active [place]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 Mitral regurgitation [...] dics replaced 7for hydronephrosis from lymphadenopathy Results Orders for Microbiology Reports Name Date Urine Culture 07/03/23 Microbiology Reports TEST:Urine Culture STATUS:Order in Progress BODY SITE: SOURCE:Urine, Clean Catch COLLECTED DATE/TIME:07/03/23 10:15 AM PRELIMINARY REPORT >100,000 cfu/ml Gram Negative Bacilli Identification and susceptibility to follow. Social History Social History Type Response Tobacco Never tobacco user T obacco Use:. Sex Implantable Device List Procedure Provider Procedure Date Device Type Site Port-A-Cath Placement Sameer Woods MD 03/09/23 Unk nown Chest R Device Identifier Serial Number Lot or Batch Number Manufacturing Date Expiration Date Distinct Identification Code MRI Safety Implantable Status Assigning Authority Unknown Unknown [id number] Unknown 12/03/23 Unknown Unknown Active Unknown Procedure Provider Procedure Date Device Type Site Cystoscopy with Stent Placement Unknown 01/06/23 Unkn own Ureter L Device Identifier Serial Number Lot or Batch Number Manufacturing Date Expiration Date Distinct Identification Code MRI Safety Implantable Status Assigning Authority Unknown Unknown [id number] Unknown 08/25/25 Unknown Unknown Active Unknown Unknown Unknown [id number] Unknown 08/25/25 Unknown Unknown Active Unknown Patient Care team information Care Team Personnel Name: VICTORIA FERRELL Position: No Access Member Role: Primary Care Physician Address: Address: [address] [facility] [place], [place] [address] Care Team Related Persons Name: SANTA MATA Name: GABY ALCALA
[2023-09-12 10:12] LABS: Abs Immature Grans 0.01 10^3/uL (0.0-0.06); Absolute Basophil Count 0.06 10^3/uL (0.0-0.2); Absolute Eosinophil Count 0.42 10^3/uL (0.0-0.7); Absolute Monocyte Count 0.56 10^3/uL (0.1-0.8); Absolute Neutrophil Count 2.75 10^3/uL (1.2-6.7); Basophils % 1.3 %; Eosinophils % 8.9 %; HCT 26.3 % (40.0-50.0); HGB 8.7 g/dL (13.5-17.5); Immature Grans % 0.2 %; Lymphocytes % 19.1 %; MCH 28.9 pg (27.0-33.0); MCHC 33.1 % (32.0-36.0); MCV 87 fL (80-95); MPV 8.8 fL (8.0-11.0); Monocytes % 11.9 %; Neutrophils % 58.6 %; Platelet Count 316 10^3/uL (130-400); RBC 3.01 10^6/uL (4.36-5.78); RDW 17.3 % (11.8-14.1); RDW-SD 55.9 fL
[2023-09-12] MEDS: Normal Saline Flush 10 ML SYR IVP (10:20)
[2023-09-12 10:29] LABS: ALT 18 U/L (16-63); AST 24 U/L (15-37); Albumin 2.9 g/dL (3.4-5.0); Alkaline Phosphatase 76 U/L (46-116); Anion Gap 9.5 mmol/L (3-11); BUN 34 mg/dL (7-18); Bilirubin, Total 0.45 mg/dL (0.2-1.0); CO2 24.5 mmol/L (21.0-32.0); CREATININE 1.9 mg/dL (0.70-1.30); Chloride 102 mmol/L (98-107); Estimated GFR 37.95 (mL/min/1.73m2); Glucose 152 mg/dL (74-106); Potassium 4.5 mmol/L (3.5-5.1); Sodium 136 mmol/L (136-145); Total Protein 7.5 g/dL (6.4-8.2)
[2023-09-12 10:47] LABS: Diff Comment Diff Reviewed; Hypochromasia 2+
[2023-09-14 13:44] LABS: PSA, Ultrasensitive 118 ng/mL (<= 4.5)
[2023-09-15 12:35] LABS: Testosterone, Total <7.0 ng/dL (240-950)
== END 2023-10-04 23:59 | disposition home or self-care (01) ==
LOC: INF 03:15
PROVIDERS: PCP Nurse Practitioner Family; Visit Provider Internal Medicine
DX: C61 Malignant neoplasm of prostate (principal); C79.51 Secondary malignant neoplasm of bone; Z45.2 Encounter for adjustment and management of vascular access device
CPT/HCPCS: 36591; 80053; 84153; 84403; 85025

== ENCOUNTER 2023-10-27 00:28 | Outpatient (RCR) | payer MEDICARE, SELFPAY ==
--- OUTSIDE RECORDS SUMMARY | 2023-10-16 03:09 | XMS_ITS | Encounter Summary ---
Author Organization [facility] Address [facility] [place] [address] Care Team Providers Care Electronic Prepress Technician Name Role Phone Nicolasa Valenzuela Primary Care Pro vider Reason for Visit * Consultation (Routine) - Closed Specialty Diagnoses / Procedures Referred By Toño mayorga Referred To Contact Dermatology Diagnoses Rash, R arm upper thighs Nicolasa Valenzuela PA [address] [place] [address] [facility] Dermatology [address] [place] [address] Referral ID Status Reason Start Date Expiration Date Visits Re quested Visits Authorized [id number] Closed 08/09/2023 08/08/2024 1 1 Encounter Details Date Type Department Care Team (Late st Contact Info) Description 09/05/2023 3:40 PM EDT Office Visit Dermatology at [facility] [address] [place] [address] Sidney Lee MD [facility] [address] [place] [address] Acute urticaria Social History Tobacco Use Types Packs/Day Years Used Date Smoking Tobacco: Never Smokeless Tobacco: Never Alcohol Use Standard Drinks/Week Comments Yes 0 (1 standard drink = 0.6 oz pur e alcohol) rare [facility] Utilities Answer Date Recorded In the past 12 months has th e electric, gas, oil, or water company threatened to shut off services in your home? No 04/14/2023 Overall Financial Resource Strain (CARDIA) Answe r Date Recorded How hard is it for you to pa y for the very basics like food, housing, medical care, and heating? Not hard at all 01/31/2023 Hunger Vital Sign Answer Date Recorded Within the past 12 months, y ou worried that your food would run out before you got the money to buy more. Never true 04/14/19 24 Within the past 12 months, t he food you bought just didn't last and you didn't have money to get more. Never true 04/14/2023 PRAPARE - Transportation Answer Date Re corded In the past 12 months, has l ack of transportation kept you from medical appointments or from getting medications? No 11/2023 In the past 12 months, has l ack of transportation kept you from meetings, work, or from getting things needed for daily living? No 04/14/2023 Housing Stability Vital Sign Answer Rohan e Recorded In the last 12 months, was t here a time when you were not able to pay the mortgage or rent on time? No 04/14/2023 In the last 12 months, how many places have you lived? 1 04/14/2023 In the last 12 months, was t here a time when you did not have a steady place to sleep or slept in a residential (including now)? No 04/14/2023 DH IPV Inpatient Questions Answer Date Recorded Does Anyone Try to Keep You From Having Contact with Others or Doing Things Outside Your Home? no 08/23/2023 Feels Threatened by Someone no 08/04 Feels Unsafe at Home or Work/School no 08/23/2023 Physical Signs of Abuse Present no 08/23/2023 Sex and Gender Information Value Date Recorded Sex Assigned at Not on file Gender Identity Not on file Sexual Orientation Not on file documented as of this encounter Progress Notes * Sidney Lee MD - 09/05/2023 3:40 PM EDT Images from the original note were not included. DEPARTMENT OF DERMATOLOGY Medical Dermatology Clinic Note Provider: Sidney Lee MD Patient's preferred name Bill Preferred contact method for results []Phone [x]myD-H []Letter Detailed phone message OK? Yes Are there any other people with whom we may discuss your care? No Past Medical History Date, location, treatment Melanoma No Dysplastic nevi No SCC No BCC No AKs No UV Exposure & Protection N Other relevant past medical history - Heart attack - Diabetes - Kidney disease - Prostate cancer Family History Details Melanoma No NMSC No Other relevant family history No Social History Occupation: Retired Pre-Procedure Questions Details Allergy to lidocaine, epinephrine, Dermabond, chlorhexidine, or adhesives No Bleeding disorder or blood thinners Plavix Implanted devices (Pacemaker, defibrillator, deep brain stimulator, cochlear implant) No History of Present Illness: Huber Keys is a 67 y.o. Patient is referred to the clinic at the request of Nicolasa Law* for a rash on the bilateral extremities. Patient reports the following: - Dermatitis present for ~1 month, patient states today is the worst day dermatitis has been. Describes rash as intensely pruritic, describes dermatitis as persistent. Patient reports an eruption similar in appearance many years as a drug reaction to amoxicillin. Review of Systems: General: Feeling well. Skin: No other skin concerns. Medications: Reviewed in eD-H Allergies: Reviewed in eD-H Skin Examination: Focused skin examination of the extremities and back was normal with the exception of the findings below. Assessment/Plan #. Favor Acute Urticaria - pink edematous papules on the arms and thighs (Figures 1-3) - Acute urticaria is defined as individual urticarial lesions lasting less than 24 hours with less than overall 6 weeks duration. Urticaria can present at any time of the day but typically presents at night or early in the morning. Approximately 50% of all acute urticaria has idiopathic etiology, 40% secondary to recent illness/ URI, 9% medications and 1% foods. Physical urticaria is defined as asubset of urticaria that can involve mechanical stimuli, temperature change, sweating or stress. Mainstay of treatment is symptomatic and includes antihistamines that can reduce pruritus and shorten wheal duration but does not necessarily prevent new urticaria from forming. - Patients in whom no trigger or underlying disorder is identified, there is a rate of spontaneous remission at one year of approximately 30 to 50 percent. However, 30 of patients persists beyond 5 years. - No investigations are required for the majority of patients with mild disease that responds to antihistamines. - Start OTC: cetirizine (Zyrtec) PO: 10 mg daily. Okay to increase to a total of 40 mg daily. - Start Rx: hydroxyzine 25 mg PO: Take one tablet nightly - Start Rx triamcinolone (Kenalog) 0.1% cream: Apply topically to affected area(s) on the trunk andextremities twice daily for up to 2 weeks. Take 1 week off and then repeat cycle as needed. - Recommended application of OTC Sarna anti-itch lotion applied twice daily to affected area. - RTC in 3-4 weeks, if still persisting plan for a potential biopsy at next follow up. Figure 1 Figure 2 Figure 3 Figure 4 Photo(s) taken and charted with patient's verbal consent. Other: OTC skin products discussed RTC: 3-4 weeks for acute urticaria follow up. []Note routed to patient care secretary []Recall placed in scheduling system [x]Appointment scheduled at checkout Scribe attestation: Florin Alfonso has performed the documentation for this encounter in the presence of and acting as a scribe for Sidney Lee MD. I performed the above scribed service and agree with the accuracy of the documentation in this encounter. Reviewed and signed by: Sidney Lee MD Dermatology [facility] Patient seen and evaluated with staff electrical systems designer: Brisa Rios MD Department of Dermatology [facility] * Brisa Rios MD - 09/05/2023 3:40 PM EDT I directly supervised Sidney Lee MD in the care of this Dermatology patient in person. I saw and evaluated this patient with Sidney Lee MD. Sidney Lee MD presented the history and physical exam details to me, then we saw the patient together, and I confirmed these findings. I agree withdetails as written. My physical examination confirms Sidney Lee MD's findings. The assessment and plan were formulated in discussion with me at the time of visit, and I agree with them as documented. Brisa Rios MD Staff Crm Dynamics Developer Department of Dermatology [facility] documented in this encounter Plan of Treatment Upcoming Encounters Date Type Department Care Team (Late st Contact Info) Description 10/16/2023 2:30 PM EDT Office Visit Hematology/Oncology at [address] [phone] Fiordaliza Downing APRN [facility] [place] [address] 11/10/2023 9:00 AM EDT Appointment [place] [address] Thomas Curtis MD [facility] DR HEMATOLOGY [place] [address] 11/21/2023 11:00 AM EDT Infusion Hematology Oncology at [address] [phone] 12/05/2023 1:30 PM EDT Office Visit Hematology/Oncology at [address] [phone] Thomas Curtis MD [facility] DR HEMATOLOGY [place] [address] Fiordaliza Downing APRN [facility] [place] [address] 12/26/2023 9:00 AM EDT Appointment [place] [phone] Thomas Curtis MD [facility] HEMATOLOGY [place] [address] 02/09/2024 8:00 AM EST Appointment Nuclear Medicine at [place] [phone] Thomas Curtis MD [facility] HEMATOLOGY [place] [address] 03/18/2024 3:00 PM EST Office Visit Cardiology at [address] [phone] Sameer Rudolph MD [facility] [place] [address] 03/22/2024 9:00 AM EST Appointment [place] [phone] Thomas Curtis MD [facility] HEMATOLOGY [place] [address] 08/23/2024 Hospital Encounter Main Operating Room [place] [phone] True Juarez MD [facility] [place] [address] Scheduled Procedures Name Priority Associated Diagnoses Date/Ti me CYSTO, STENT PLACEMENT (WRVU 2.82) Hydronephrosis with ureteral stricture, not elsewhere classified CYSTO, REMOVAL OF STENT, FOR EIGN BODY OR CALCULUS, SIMPLE (WRVU 2.81) Hydronephrosis with ureteral stricture, not elsewhere classified documented as of this encounter Goals Goal Patient Goal Type Associated Problems Recent Progress Patient-Stated? Author DH Home Medication Compliance and Understanding Patient Facing Action Plan Christy Bravo, [facility] Note: The patient? s goal is to continue positive results of oral chemotherapy by maintaining improved labs (PSA) or stable scans in clinic for the upcoming year. documented as of this encounter Visit Diagnoses Diagnosis Acute urticaria Other specified urticaria documented in this encounter Care Teams Electronic Prepress Technician Relationship Specialty Start Date End Date Nicolasa Valenzuela PA [address] [place] [address] PCP - General Family Medicine 12/20/21 documented as of this encounter
--- OUTSIDE RECORDS SUMMARY | 2023-10-16 03:09 | XMS_ITS | Encounter Summary ---
Author Organization [facility] Address [address] [facility] [place] [address] Care Team Providers Care Supervisory Civil Engineer Name Role Phone Nicolasa Valenzuela Primary Care Pro vider Encounter Details Date Type Department Care Team (Latest Contact Info) Description 08/24/2023 Travel Social History Tobacco Use Types Packs/Day Years Used Date Smoking Tobacco: Never Smokeless Tobacco: Never Alcohol Use Standard Drinks/Week Comments Yes 0 (1 standard drink = 0.6 oz pur e alcohol) rare [facility] Utilities Answer Date Recorded In the past 12 months has e electric, gas, oil, or water company [...] place to sleep or slept in a senior living (including now)? No 04/14/2023 DH IPV Inpatient [...] on file documented as of this encounter Plan of Treatment Upcoming Encounters Date Type Department Care Team (Late st Contact Info) Description 10/16/2023 2:30 PM EDT Office Visit Hematology/Oncology at [address] [phone] Fiordaliza Downing APRN [facility] [place] [address] 11/10/2023 9:00 AM EDT Appointment [place] [address] Thomas Curtis MD [facility] [place] [address] 11/21/2023 11:00 AM EDT Infusion Hematology Oncology at [address] [phone] 12/05/2023 1:30 PM EDT Office Visit Hematology/Oncology at [address] [phone] Thomas Curtis MD [facility] [place] [address] Fiordaliza Downing APRN [facility] [place] [address] 12/26/2023 9:00 AM EDT Appointment Nuclear Medicine at [place] [phone] Thomas Curtsi MD [facility] [place] [address] 02/09/2024 8:00 AM EST Appointment Nuclear Medicine at [place] [phone] Thomas Curtis MD [facility] [place] [address] 03/18/2024 3:00 PM EST Office Visit Cardiology at [address] [phone] Sameer Rudolph MD [facility] [place] [address] 03/22/2024 9:00 AM EST Appointment Nuclear Medicine at [place] [phone] Thomas Curtis MD [facility] [place] [address] 08/23/2024 Hospital Encounter [place] [phone] True Juarez MD [facility] [place] [address] Scheduled Procedures Name Priority Associated Diagnoses Date/Ti [...] Understanding Patient Facing Action Plan Christy Bravo, [facility] Note: The patient? s goal is to continue positive results of oral chemotherapy by maintaining improved labs (PSA) or stable scans in clinic for the upcoming year. documented as of this encounter Visit Diagnoses Not on filedocumented in this encounter Care Teams Supervisory Civil Engineer Relationship Specialty Start Date End Date Nicolasa Valenzuela PA [address] [place] [address] PCP - General Family Medicine 12/20/21 documented as of this encounter
--- OUTSIDE RECORDS SUMMARY | 2023-10-16 03:09 | XMS_ITS | Encounter Summary ---
Author Organization [facility] Address [facility] [address] Care Team Providers Care Flow Nurse Name Role Phone Nicolasa Valenzuela Primary Care Pro vider Reason for Visit * Reason Onset Date Comments Prior Authorization 2023 hydrOXYzine (Atarax) 25 mg tablet Encounter Details Date Type Department Care Team (Late st Contact Info) Description 2023 Telephone Dermatology at [facility] [address] [place] [phone] Kasia Pineda MA Prior Authorization (hydrOXYzine (Atarax) 25 mg tablet) Social History Tobacco Use Types Packs/Day Years Used Date Smoking Tobacco: Never Smokeless Tobacco: Never Alcohol Use Standard Drinks/Week Comments Yes 0 (1 standard drink = 0.6 oz pur e alcohol) rare [facility] Utilities Answer Date Recorded In the past 12 months has e [employer], gas, oil, or water [employer] threatened to shut off services in your [...] place to sleep or slept in a group home (including now)? No 04/14/2023 DH IPV Inpatient [...] on file documented as of this encounter Miscellaneous Notes * Telephone Encounter - Kasia Pineda MA - 09/29/2023 9:37 AM EDTSummary: Requested Forms Faxed to [phone] Images from the original note were not included. * Telephone Encounter - Kasia Pineda MA - 2023 12:52 PM EDT Images from the original note were not included. * Telephone Encounter - Kasia Pineda MA - 2023 12:31 PM EDTSummary: PA Request hydrOXYzine (Atarax) 25 mg tablet PA Submitted Submitted Date: Date Submitted: 2023 Medication Prior Authorization Patient: Huber Keys Patient : 1955 Insurance Company: [employer] Sent via: [employer] [place]: [id number] Physician: Sidney Lee MD Medication Requested: hydrOXYzine (Atarax) 25 mg tablet Frequency/Sig: Take 1 tablet by mouth nightly. Disp: 30 tablet Refills: 0 Currently taking: NO If yes, how long: Diagnosis for this medication: Acute urticaria [L50.8] Prior medications trialed in this patient: Medication: triamcinolone (Kenalog) 0.1 % Cream Approx Dates: 09/05/23 Outcome/Adverse Reactions: Inadequate response OTC: cetirizine (Zyrtec) PO. Additional Notes: 09/27/2023 Office Notes of Sidney Lee MD Dermatology at [facility] Assessment/Plan #. Favor Acute Urticaria - PIH at sites of prior pink edematous papules on the arms and [...] mild disease that responds to antihistamines. - Okay to stop OTC: cetirizine (Zyrtec) PO. Can restart 10 mg bid if flares again. Okay to increaseto a total of 40 mg daily if needed. Instructed patient to taper by 10 mg monthly if he has to restart this treatment. - Okay to stop Rx: hydroxyzine 25 mg PO: Take one tablet nightly. Can restart if flares. - Okay to stop Rx triamcinolone (Kenalog) 0.1% cream: Apply topically to affected area(s) on the trunk and extremities twice daily for up to 2 weeks. Take 1 week off and then repeat cycle as needed. Can restart if flares. - Okay to stop OTC Sarna anti-itch lotion applied twice daily to affected area. Can restart if flares. Sidney Lee MD Dermatology [facility] documented in this encounter Plan of Treatment Upcoming Encounters Date Type Department Care Team (Late st Contact Info) Description 10/16/2023 2:30 PM EDT Office Visit Hematology/Oncology at [address] [phone] Fiordaliza Downing APRN [facility] [place] [address] 11/10/2023 9:00 AM EDT Appointment [place] [phone] Thomas Curtis MD [facility] DR [place] [address] 11/21/2023 11:00 AM EDT Infusion Hematology Oncology at [address] [phone] 12/05/2023 1:30 PM EDT Office Visit Hematology/Oncology at [address] [phone] Thomas Curtis MD [facility] [place] [address] Fiordaliza Downing APRN [facility] [place] [address] 12/26/2023 9:00 AM EDT Appointment [place] [phone] Thomas Curtis MD [facility] [place] [address] 02/09/2024 8:00 AM EST Appointment [place] [phone] Thomas Curtis MD [facility] [place] [address] 03/18/2024 3:00 PM EST Office Visit Cardiology at [address] [phone] Sameer Rudolph MD [facility] [place] [address] 03/22/2024 9:00 AM EST Appointment [place] [phone] Thomas Curtis MD [facility] [place] [address] 08/23/2024 Hospital Encounter [place] [address] True Juarez MD [facility] [place] [address] Scheduled Procedures Name Priority Associated Diagnoses Date/Ti me CYSTO, STENT PLACEMENT (WRVU 2.82) Hydronephrosis with ureteral stricture, not elsewhere classified CYSTO, REMOVAL OF STENT, FOR EIGN BODY OR CALCULUS, SIMPLE (WRVU 2.81) Hydronephrosis with ureteral stricture, not elsewhere classified documented as of this encounter Goals Goal Patient Goal Type Associated Problems Recent Progress Patient-Stated? Author Home Medication Compliance and Understanding Patient Facing Action Plan Christy Bravo, [facility] Note: The patient? s goal is to continue positive results of oral chemotherapy by maintaining improved labs (PSA) or stable scans in clinic for the upcoming year. documented as of this encounter Visit Diagnoses Not on filedocumented in this encounter Care Teams Flow Nurse Relationship Specialty Start Date End Date Nicolasa Valenzuela PA [address] [place] [address] PCP - General Family Medicine 12/20/21 documented as of this encounter
--- OUTSIDE RECORDS SUMMARY | 2023-10-16 03:09 | XMS_ITS | Encounter Summary ---
Author Organization [facility] Address [facility] [place] [address] Care Team Providers Care Access Rn Name Role Phone Nicolasa Valenzuela Primary Care Pro vider Encounter Details Date Type Department Care Team (Late st Contact Info) Description 08/23/2023 11:31 AM EDT - 08/23/2023 1:11 PM EDT Surgery Main Operating Room [facility] [place] [phone] True Juarez MD [facility] [place] [address] CYSTO, STENT PLACEMENT (WRVU 2.82) Social History Tobacco Use Types Packs/Day Years Used Date Smoking Tobacco: Never Smokeless Tobacco: Never Alcohol Use Standard Drinks/Week Comments Yes 0 (1 standard drink = 0.6 oz pur e alcohol) rare [facility] Utilities Answer Date Recorded In the past 12 months has [employer] electric, gas, oil, or water company threatened [...] place to sleep or slept in a alf (including now)? No 04/14/2023 DH IPV Inpatient [...] on file documented as of this encounter Last Filed Vital Signs Vital Sign Reading Time Taken Comments Blood Pressure 102/49 08/23/2023 1:08 PM EDT Pulse 60 08/23/2023 11:07 AM EDT Temperature 36.1 ??C (97 ??F) 08/23/2023 1:08 PM EDT Respiratory Rate 16 08/23/2023 1:08 PM EDT Oxygen Saturation 100% 08/23/2023 1:08 PM EDT Inhaled Oxygen Concentration - - Weight 79.9 kg (176 lb 1.6 oz) 08/23/2023 11:07 AM EDT Height 177.8 cm (5' 10) 08/23/2023 11:07 AM EDT Body Mass Index 25.27 08/23/2023 11:07 AM EDT documented in this encounter Discharge Instructions * Patient Instructions* Sánchez Son MD - 08/23/2023 1:14 PM EDT Discharge Instructions after Ureteral Stent Exchange Call your doctor for: Fevers greater than 101.3F Severe nausea or vomiting Increasing pain not controlled by pain medications Inability to urinate before 5 PM weekdays for urgent concerns after 5 PM and weekends. Ask for the on-call Urology resident Activity level: Increased activity may lead to more stent discomfort and more blood in your urine. Your activity level will be determined by your comfort level. Diet: You may resume your regular diet as tolerated. Driving: No driving while still taking opioid pain medications (wait at least 6- 8 hours since last dose). No driving if you are still sore from surgery as it may limit your ability to react quickly if necessary. Shower/Bath: No restrictions. Stent Discomfort: Most patients experience some degree of discomfort related to their ureteral stent. Symptoms include flank pain (increased during urination), frequency and urgency of urination, burning or pain in the bladder/urethra with urination, pelvic discomfort, and blood in the urine. Your symptoms may be exacerbated by activity. To manage your stent symptoms, try the following: - Drink plenty of fluid (~2 liters per day or enough to make urine clear or pale yellow) - You may take acetaminophen (Tylenol) up to 1000mg every 6 hours and/or ibuprofen (Motrin, Advil, or generic) up to 600mg every 8 hours (unless otherwise instructed by a physician) - We recommend alternating acetaminophen and ibuprofen so that you are taking one every 3 hours. For example, acetaminophen at 12pm, ibuprofen 3pm, acetaminophen 6pm, ibuprofen 9pm, etc. - Do not exceed 4000mg acetaminophen in 24 hours. Do not exceed 3200mg ibuprofen in 24 hours. Follow up Appointments: - An appointment will be scheduled in about 12 months for your next stent exchange. Please call [phone] if you do not receive your appointment. Future Appointments Date Time Provider Department Center 08/24/2023 2:30 PM [facility], ROOM [facility] [place] [facility] 09/04/2023 3:00 PM Sameer Rudolph MD [facility] 09/05/2023 3:40 PM Sidney Lee MD [facility] [address] 09/12/2023 10:30 AM Thomas Curtis MD [facility] [place] [facility] 09/29/2023 9:00 AM [facility] NM ROOM 1 MH Nuc Med [facility] Rad 11/10/2023 9:00 AM [facility] NM ROOM 1 MH Nuc Med MH Rad 12/26/2023 9:00 AM [facility] NM ROOM 1 MH Nuc Med MH Rad 02/09/2024 8:00 AM [facility] NM ROOM 1 MH Nuc Med MH Rad 03/22/2024 9:00 AM [facility] NM ROOM 1 Nuc Med MH Rad It is important to remember that your ureteral stent cannot stay in place permanently. If it remains in place too long it may become encrusted with stone and require additional surgery to remove it. Please call our office if you do not receive your appointment or if you need to reschedule. documented in this encounter Medications at Time of Discharge Medication Sig Dispensed Refills Start Date End Date aspirin 81 mg chewable tablet Take 81 mg by mouth daily. 30 tablet 3 04/20/2023 clopidogreL (Plavix) 75 mg tablet Take 1 tablet by mouth daily. 90 tablet 3 04/20/2023 nitroGLYcerin (Nitrostat) 0.[address] 1 tablet under the tongue every 5 minutes as needed for Chest pain. 90 tablet 12 04/19/2023 tamsulosin (Flomax) 0.4 mg capsule Take 0.4 mg by mouth daily. acetaminophen (Tylenol) 325 mg tablet Take 650 mg by mouth 3 times daily. levothyroxine (Synthroid) 150 mcg tablet Take 150 mcg by mouth daily. HYDROcodone-acetamin ophen (Claremont) 5-325 mg tablet Take 1 tablet by mouth every 6 hours as needed for Pain. atorvastatin (Lipitor) 40 mg tablet Take 1 tablet by mouth daily. 30 tablet 3 10/03/2022 cholecalciferol (Vitamin D3) 1,000 unit tablet Take 1 tablet by mouth daily. 90 tablet 3 10/04/2022 Lantus Solostar U-100 Insulin 100 unit/mL (3 mL) pen Inject 8 Units subcutaneously daily. 10 mL 12 10/03/2022 predniSONE (Deltasone) 20 mg tablet TAKE 3 TABLETS BY MOUTH ONCE A DAY FOR 3 DAYS, THEN 2 TABLETS DAILY FOR 3 DAYS, THEN 1 TABLET DAILY FOR 3 DAYS, THEN 1/2 TABLET DAILY FOR 4 DAYS 08/17/2023 09/04/2023 sulfamethoxazole-tri methoprim DS (Bactrim DS) 800-160 mg tablet Take 1 tablet by mouth 2 times daily for 7 days. PLEASE START TAKING TODAY 08/21/23 14 tablet 08/21/2023 08/28/2023 documented as of this encounter H&P Notes * Daniel Barnes MD - 08/23/2023 11:27 AM EDT Patient Name: Huber Keys Age: 67 y.o. Date of : 1955 Attending Provider: True Juarez MD Huber Keys is a 67 y.o. male with history of metastatic prostate cancer, presenting for planned bilateral stent exchange with metallic stents. No recent changes to health status. Recent cath cipro MEDICAL AND SURGICAL HISTORY Past Medical History: Diagnosis Date Adenocarcinoma of prostate 10/21/2022 Adenoma of colon ASCVD (arteriosclerotic cardiovascular disease) 04/25/2023 Chronic kidney disease Congestive heart failure 06/01/2023 Diabetes Gout High blood pressure Hypercholesterolemia 10/21/2022 Hypothyroid Past Surgical History: Procedure Laterality Date CATARACT REMOVAL WITH IMPLANT 2019 CT GUIDED BIOPSY LYMPH NODE(CHEST/ABD/PELVIS) 09/30/2022 CT Guided Biopsy Lymph Node (Chest/Abd/Pelvis) 09/30/2022 Evangelist Sparks MD [facility] RAD CT SCAN HAND SURGERY Left 1997 Left thumb repair surgery INGUINAL HERNIA REPAIR 1955 as an PRO ALLOGRAFT FOR SPINE SURGERY ONLY MORSELIZED Bilateral 03/17/2022 ALLOGRAFT FOR SPINE SURGERY ONLY; MORSELIZED (WRVU *) performed by Bebe Hatfield MD at [facility] MAIN OR PRO ARTHRD ANT INTERDY CERVCL BELW C2 EA ADDL NTRSPC Bilateral 03/17/2022 ARTHRODESIS ANT INTERBDY CERVCL BELOW C2 EA ADDL INTRSPACE (WRVU 6.5) performed by Bebe Hatfield MD at [facility] MAIN OR PRO ARTHRODESIS, ANT INTERBODY,DECOMPRESSION; CERVICAL BELOW C2 Bilateral 03/17/2022 ARTHRODESIS, ANT INTERBODY,DECOMPRESSION; CERVICAL BELOW C2 (WRVU 25) performed by Bebe Hatfield MD at [facility] MAIN OR PRO CYSTOSCOPY, INSERT URETERAL STENT Bilateral 09/29/2022 CYSTO, STENT PLACEMENT (WRVU 2.82) performed by Evangelist Castañeda MD at [facility] MAIN OR PRO INSERT BIOMCHN DEV INTERVERTEBRAL DSC SPC W/ARTHRD Bilateral 03/17/2022 INSERTION INTERBODY BIOMECH DEV TO INTERVEBRAL DISC SPACE, EA INTERSPACE (WRVU 4.25) performed by Bebe Hatfield MD at [facility] MAIN OR US GUIDED BIOPSY PROSTATE WITH URONAV FUSION 12/20/2021 US Guided Biopsy Prostate with Uronav Fusion 12/20/2021 [facility] RAD ULTRASOUND ALLERGIES Allergies Allergen Reactions Amoxicillin Rash Penicillin Other (See Comments) Other reaction(s): Unknown MEDICATIONS No current facility-administered medications on file prior to encounter. Current Outpatient Medications on File Prior to Encounter Medication Sig Dispense Refill predniSONE (Deltasone) 20 mg tablet TAKE 3 TABLETS BY MOUTH ONCE A DAY FOR 3 DAYS, THEN 2 TABLETS DAILY FOR 3 DAYS, THEN 1 TABLET DAILY FOR 3 DAYS, THEN 1/2 TABLET DAILY FOR 4 DAYS aspirin 81 mg chewable tablet Take 81 mg by mouth daily. 30 tablet 3 clopidogreL (Plavix) 75 mg tablet Take 1 tablet by mouth daily. 90 tablet 3 tamsulosin (Flomax) 0.4 mg capsule Take 0.4 mg by mouth daily. levothyroxine (Synthroid) 150 mcg tablet Take 150 mcg by mouth daily. HYDROcodone-acetaminophen (Cl[place]mont) 5-325 mg tablet Take 1 tablet by mouth every 6 hours as needed for Pain. atorvastatin (Lipitor) 40 mg tablet Take 1 tablet by mouth daily. 30 tablet 3 cholecalciferol (Vitamin D3) 1,000 unit tablet Take 1 tablet by mouth daily. 90 tablet 3 Lantus Solostar U-100 Insulin 100 unit/mL (3 mL) pen Inject 8 Units subcutaneously daily. (Patient taking differently: Inject 8-10 Units subcutaneously daily.) 10 mL 12 nitroGLYcerin (Nitrostat) 0.[address] 1 tablet under the tongue every 5 minutes as needed for Chest pain. (Patient not taking: Reported on 05/23/2023) 90 tablet 12 acetaminophen (Tylenol) 325 mg tablet Take 650 mg by mouth 3 times daily. PHYSICAL EXAM Temp: [36.1 ??C (96.9 ??F)] Heart Rate: [60] Resp: [16] BP: (133)/(83) SpO2: [95 %] Heart Rate from SpO2: -- GEN: Resting comfortably in bed, conversant, NAD. CHEST: Normal work of breathing. CV: Sinus rhythm. 2+ pulses bilaterally. ABD: Soft, non-tender, non-distended. EXTR: Moving spontaneously. SKIN: Warm and dry. NEURO: Alert and follows commands. ASSESSMENT / PLAN 67 y.o. male presenting for bilateral ureteral stent exchange. Patient appears fit for surgery. Thedetails, alternatives, risks, and benefits of the procedure were reviewed, and the patient wishes to proceed. Informed consent has been obtained. All questions were answered to the patient's satisfaction. Proceed with surgery. The patient's history and physical exam have been reviewed and completed. There has been no interval change from that of the pre-operative history and physical exam performed within the last 30 days. documented in this encounter Miscellaneous Notes * Op Note - Sánchez Son MD - 08/23/2023 12:28 PM EDT [facility] Operative [facility] Patient Name: Huber Kesy : [id number] MR#: [id number] Case Date: 08/23/2023 Surgeon: Surgeons and Role: * True Juarez MD - Primary * Daniel Barnes MD - Resident - Assisting * Sánchez Son MD - Resident - Assisting Preoperative diagnosis: Hydronephrosis Postoperative diagnosis: Hydronephrosis Procedure(s) (LRB): CYSTO, STENT PLACEMENT (WRVU 2.82) (Bilateral) CYSTO, REMOVAL OF STENT, FOREIGN BODY OR CALCULUS, SIMPLE (WRVU 2.81) (Bilateral) Findings: - bilateral existing stents not encrusted - tightness of bilateral ureters making feeding wire through stents difficult - bilateral metal stents placed 6F x 24cm Anesthesia: General Estimated Blood Loss: Specimens removed during surgery: None Drains: BL 6F x 24cm Surgical Closure: n/a Disposition: awakened from anesthesia, extubated and taken to the recovery room in a stable condition, having suffered no apparent untoward event. Condition: doing well without problems (Please see the Surgical Encounter Summary for any Implant and Specimen details pertinent to this patient.) HPI/Surgical Indications: Huber Keys is a 67 y.o. male with history of metastatic prostate cancer, presenting for planned bilateral stent exchange with metallic stents. No recent changes to health status. Recent cath cipro Procedure Description: The patient was identified in the pre-operative holding area. Consent was verified. The correct side of the procedure was marked. The patient was taken to the operating room and placed supine on the operating table. General anesthesia was induced. The patient was then moved to the lithotomy position and prepped and draped in the usual sterile fashion. A timeout was performed involving all members of the OR team confirming the patient's identity and planned procedure. Preoperative antibiotics were administered. A 22 Fr rigid cystoscope was inserted into the bladder. A 360 degree cystoscopy with a 30 degree lens revealed a normal appearing bladder without stones, debris, or lesions. The ureteral orifices were noted to be in orthotopic position. The existing bilateral ureteral stents were visualized. A stent grasper was inserted and the right stent was removed to the urethral meatus. A glide wire was inserted via the stent into the renal pelvis. A Pollack catheter was advanced over the stent to measure the ureteral length and contrast was instilled into the renal pelvis. The Pollack catheter was removed. The introducer and sheath of the metal stent was placed over the wire and visualized to be in the renal pelvis. The introducer and wire were removed. Additional contrast was injected through the sheath to confirm position within the renal pelvis. A 6Fr x 24cm metallic stent was placed into the sheath and advanced using the pusher until a proximal curl was noted in the renal pelvis. The stent was deployed with care taken to avoid advancing the stent too far into the ureter. The proximal coil was visualized on fluoroscopy to be within the renal pelvis, and the distal coil was seen with direct visualization in the bladder. Attention was then turned to the left ureter. A stent grasper was inserted and the left stent was removed to the urethral meatus. A glide wire was inserted via the stent into the renal pelvis. A Pollack catheter was advanced over the stent to measure the ureteral length and contrast was instilled into the renal pelvis. The Pollack catheter was removed. The introducer and sheath of the metal stent was placed over the wire and visualized to be in the renal pelvis. The introducer and wire were removed. Additional contrast was injected through the sheath to confirm position within the renal pelvis. A 6Fr x 24cm metallic stent was placed into the sheath and advanced using the pusher until a proximal curl was noted in the renal pelvis. The stent was deployed with care taken to avoid advancing the stent too far into the ureter. The proximal coil was visualized on fluoroscopy to be within the renal pelvis, and the distal coil was seen with direct visualization in the bladder. The bladder was emptied and the cystoscope was removed. The patient tolerated the procedure well and was awakened from anesthesia with no adverse events. The patient was taken to the recovery area in stable condition. Dr. Juarez, the attending surgeon, was present for the entire procedure. Surgical Infection Prevention Bundle Used? N/A Plan: Stent exchange in 1 year Associated attestation - True Juarez MD - 08/23/2023 3:15 PM EDT Attestation: Case Date: 08/23/2023 I was present and I participated during the entire procedure (does not need to include opening and closing). True Juarez MD 08/23/2023 documented in this encounter Plan of Treatment Upcoming Encounters Date Type Department Care Team (Late st Contact Info) Description 10/16/2023 2:30 PM EDT Office Visit Hematology/Oncology at [address] [phone] Fiordaliza Downing APRN [facility] [place] [address] 11/10/2023 9:00 AM EDT Appointment [place] [address] Thomas Curtis MD [facility] [place] [address] 11/21/2023 11:00 AM EDT Infusion Hematology Oncology at [address] [phone] 12/05/2023 1:30 PM EDT Office Visit Hematology/Oncology at [address] [phone] Thomas Curtis MD [facility] [place] [address] Fiordaliza Downing APRN [facility] [place] [address] 12/26/2023 9:00 AM EDT Appointment [place] [phone] Thomas Curtis MD [facility] [address] [place] [address] 02/09/2024 8:00 AM EST Appointment [place] [phone] Thomas Curits MD [facility] [place] [address] 03/18/2024 3:00 PM EST Office Visit Cardiology at [address] [place] [phone] Sameer Rudolph MD [facility] [place] [address] 03/22/2024 9:00 AM EST Appointment [place] [phone] Thomas Curtis MD [facility] [address] [place] [address] 08/23/2024 Hospital Encounter Main Operating Room [facility] [place] [phone] True Juarez MD [facility] UROLOGY [place], [place] [phone] Scheduled Orders Name Type Priority Associated Diagnoses Orde r Schedule SURGICAL CASE REQUEST NO POSTOP PAIN: CYSTO, STENT PLACEMENT (WRVU 2.82), CYSTO, REMOVAL OF STENT, FOREIGN BODY OR CALCULUS, SIMPLE (WRVU 2.81) Procedures Routine Hydronephrosis with ureteral stricture, not elsewhere classified Ordered: 08/23/2023 Scheduled Procedures Name Priority Associated Diagnoses Date/Ti [...] Compliance and Understanding Patient Facing Action Plan No Christy Cloud, [facility] Note: The patient? s goal is to continue positive results of oral chemotherapy by maintaining improved labs (PSA) or stable scans in clinic for the upcoming year. documented as of this encounter Procedures Procedure Name Priority Date/Time Associated Diagnosis Comments XR FLUORO NO RAD <1HR - OR USE Routine 08/23/2023 1:06 PM EDT Cystoscopy, Remv Calculus, Simple ([id number]) Yes 08/23/2023 12:02 PM EDT Hydronephrosis with ureteral stricture, not elsewhere classified Cystoscopy, Insert Ureteral Stent ([id number]) Yes 08/23/2023 12:02 PM EDT Hydronephrosis with ureteral stricture, not elsewhere classified CYSTO, STENT PLACEMENT Routine 08/23/2023 10:54 AM EDT Hydronephrosis with ureteral stricture, not elsewhere classified CYSTO, REMOVAL\STENT\FOREIG N BODY\CALCULUS\SIMPLE Routine 08/23/2023 10:54 AM EDT Hydronephrosis with ureteral stricture, not elsewhere classified IMPLANTABLE DEVICES SCAN 08/23/2023 12:00 AM EDT documented in this encounter Results * XR Fluoro No Rad <1Hr - OR Use (08/23/2023 1:06 PM EDT) Narrative Dicom, Auditing User - 08/23/2023 1:07 PM EDT This exam is auto-finalizing. No interpretation was done. True Juarez MD IMG FLUORO ORDERAB LES * Scan Doc: Implantable Devices (08/23/2023 12:00 AM EDT) Narrative 08/23/2023 12:00 AM EDT Ordered by an unspecified provider. Scanning Provider MEDIA MGR SCAN EXT O RDR/RSLT documented in this encounter Visit Diagnoses Diagnosis Hydronephrosis with ureteral stricture, not elsewhere classified Hydronephrosis with ureteral stricture, not elsewhere classified documented in this encounter Administered Medications Inactive Administered Medications - up to 3 most recent administrations Medication Order MAR Action Action Date Dose Rate Site heparin (pf) (porcine) (100 units/mL) flush 5 mL syringe 500 Units 500 Units (5 mL), Intravenous, DAILY PRN, 1 dose, Starting on Mon08/23/23 at 1327, Until Mon08/23/23 at 1359, Line Care, Terminal Flush for de-accessing of Implantable Port, Routine Given 08/23/2023 1:59 PM EDT 500 Units documented in this encounter Active and Recently Administered Medications Times are shown in EDT. Scheduled Medication Order 08/21/2023 08/22/2023 08/23/2023 ciprofloxacin (Cipro) 400 mg in dextrose 5% 200 mL infusion (COMPLETED) 400 mg, Intravenous, [employer] TO O.R., 1 dose, On Mon08/23/23 at 1130, Administer over 60 Minutes, Day of Surgery (Day of Procedure), Indication for (Active or Suspected): Prophylaxis, Restricted Antibiotic: Please indicate the most appropriate choice: Pre-approved indication (state the indication in comments field) 1212 (Given - Provid er: Nick Jacob CRNA) Continuous Medication Order 08/21/2023 08/22/2023 08/23/2023 lactated ringers infusion (CANCELED) 1,000 mL, at 100 mL/hr, Intravenous, CONTINUOUS, Starting on Mon08/23/23 at 1130, Until Mon08/23/23 at 1416, Day of Surgery (Day of Procedure) 1200 (New Bag - Prov ider: Nick Jacob CRNA) PRN Medication Order 08/21/2023 08/22/2023 08/23/2023 heparin (pf) (porcine) (100 units/mL) flush 5 mL syringe 500 Units (COMPLETED) 500 Units (5 mL), Intravenous, DAILY PRN, 1 dose, Starting on Mon08/23/23 at 1327, Until Mon08/23/23 at 1359, Line Care, Terminal Flush for de-accessing of Implantable Port, Routine 1359 (Given - Provid er: Alexey Saenz RN) documented in this encounter Care Teams Access Rn Relationship Specialty Start Date End Date Nicolasa Valenzuela PA [address] [place] [address] PCP - General Family Medicine 12/20/21 documented as of this encounter
--- OUTSIDE RECORDS SUMMARY | 2023-10-16 03:09 | XMS_ITS | Encounter Summary ---
Author Organization Pending Sale To [facility] Address [facility] [place] [address] Care Team Providers Care Thermodynamicist Name Role Phone Nicolasa Valenzuela Primary Care Pro vider Encounter Details Date Type Department Care Team (Latest Contact Info) Description 09/27/2023 Travel Social History Tobacco Use Types Packs/Day Years Used Date Smoking Tobacco: Never Smokeless Tobacco: Never Alcohol Use Standard Drinks/Week Comments Yes 0 (1 standard drink = 0.6 oz pur e alcohol) rare [facility] Utilities Answer Date Recorded In the [...] 2:30 PM EDT Office Visit Hematology/Oncology at [address] [phone] [facility] [place] [address] 11/10/2023 9:00 AM EDT Appointment [place] [address] [facility] [address] HEMATOLOGY [place] [address] 11/21/2023 11:00 AM EDT Infusion Hematology Oncology at [address] [phone] 12/05/2023 1:30 PM EDT Office Visit Hematology/Oncology at [address] [phone] [facility] HEMATOLOGY [place] [address] [facility] [place] [address] 12/26/2023 9:00 AM EDT Appointment Nuclear Medicine at [place] [phone] [facility] HEMATOLOGY [place] [address] 02/09/2024 8:00 AM EST Appointment Nuclear Medicine at [place] [phone] [facility] HEMATOLOGY [place] [address] 03/18/2024 3:00 PM EST Office Visit Cardiology at [address] [phone] [facility] [place] [address] 03/22/2024 9:00 AM EST Appointment Nuclear Medicine at [place] [phone] [facility] HEMATOLOGY [place] [address] 08/23/2024 Hospital Encounter [place] [address] [facility] [place] [address] Scheduled Procedures Name Priority Associated Diagnoses Date/Ti [...] Facing Action Plan Christy Bravo, [facility] Note: The patient? s goal is to continue positive results of oral chemotherapy by maintaining improved labs (PSA) or stable scans in clinic for the upcoming year. documented as of this encounter Visit Diagnoses Not on filedocumented in this encounter Care Teams Thermodynamicist Relationship Specialty Start Date End Date Nicolasa Valenzuela PA [address] [place] [address] PCP - General Family Medicine 12/20/21 documented as of this encounter
--- OUTSIDE RECORDS SUMMARY | 2023-10-16 03:09 | XMS_ITS | Encounter Summary ---
Author Organization On License Of [facility] Address [facility] [place] [address] Care Team Providers Care Caddie Supervisor Name Role Phone Nicolasa Valenzuela Primary Care Pro vider Encounter Details Date Type Department Care Team (Late st Contact Info) Description 10/11/2023 Telephone Cardiology at [address] [place] [phone] Samere Rudolph MD [facility] [place] [address] Social History Tobacco Use Types Packs/Day Years Used Date Smoking Tobacco: Never Smokeless Tobacco: Never Alcohol Use Standard Drinks/Week Comments Yes 0 (1 standard drink = 0.6 oz pur e alcohol) rare [facility] Utilities Answer Date Recorded In the past 12 months has [employer], gas, oil, or water [employer] threatened to shut off services in your [...] place to sleep or slept in a correction (including now)? No 04/14/2023 DH IPV Inpatient [...] encounter Miscellaneous Notes * Telephone Encounter - Roxi Burleson RN - 10/12/2023 1:10 PM EDT Reviewed instructions with Bill Of note: All done with vistaril with the rash that resolved. He will discuss with other doctors. Overall symptoms have improved since heat and humidity have subsided. * Telephone Encounter - Sameer Rudolph MD - 10/11/2023 5:07 PM EDT Regarding patient's orthostatic hypotension: he is not on any cardiac medications that would cause this. Flomax in very susceptible people can cause this. Unlikely from a primary cardiac aetiology. No literature available to suggest Pluvicto would be the cause. However, patient has been on Atarax which not infrequently causes orthostatic hypotension. Defer to prescribing providers regarding those medications documented in this encounter Plan of Treatment Upcoming Encounters Date Type Department Care Team (Late st Contact Info) Description 10/16/2023 2:30 PM EDT Office Visit Hematology/Oncology at [address] [phone] Fiordaliza Downing APRN [facility] [place] [address] 11/10/2023 9:00 AM EDT Appointment [place] [address] Thomas Curtis MD [facility] [place] [address] 11/21/2023 11:00 AM EDT Infusion Hematology Oncology at [address] [phone] 12/05/2023 1:30 PM EDT Office Visit Hematology/Oncology at [address] [phone] Thomas Curtis MD [facility] [place] [address] Fiordaliza Downing APRN [facility] [place] [place] [address] 12/26/2023 9:00 AM EDT Appointment [place] [address] Thomas Curtis MD [facility] [place] [address] 02/09/2024 8:00 AM EST Appointment [place] [phone] Thomas Curtis MD [facility] DR [place] [address] 03/18/2024 3:00 PM EST Office Visit Cardiology at [address] [place] [phone] Sameer Rudolph MD [facility] [place] [address] 03/22/2024 9:00 AM EST Appointment [place] [phone] Thomas Curtis MD [facility] [place] [address] 08/23/2024 Hospital Encounter Main [place] [address] True Juarez MD [facility] [place] [address] Scheduled Procedures Name Priority Associated Diagnoses Date/Ti [...] and Understanding Patient Facing Action Plan Christy Bravo [facility] Note: The patient? s goal is to continue positive results of oral chemotherapy by maintaining improved labs (PSA) or stable scans in clinic for the upcoming year. documented as of this encounter Visit Diagnoses Not on filedocumented in this encounter Care Teams Caddie Supervisor Relationship Specialty Start Date End Date Nicolasa Valenzuela PA [address] [place] [address] PCP - General Family Medicine 12/20/21 documented as of this encounter
--- OUTSIDE RECORDS SUMMARY | 2023-10-16 03:09 | XMS_ITS | Encounter Summary ---
Author Organization [facility] Address [facility] [place] [address] Care Team Providers Care Gift Packer Name Role Phone Nicolasa Valenzuela Primary Care Pro vider Encounter Details Date Type Department Care Team (Latest Contact Info) Description 09/29/2023 Travel Social History Tobacco Use Types Packs/Day Years Used Date Smoking Tobacco: Never Smokeless Tobacco: Never Alcohol Use Standard Drinks/Week Comments Yes 0 (1 standard drink = 0.6 oz pur e alcohol) rare [facility] Utilities Answer Date Recorded In the [...] place to sleep or slept in a fpc (including now)? No 04/14/2023 DH IPV Inpatient [...] 2:30 PM EDT Office Visit Hematology/Oncology at [address] [phone] Fiordaliza Downing APRN [facility] [place] [address] 11/10/2023 9:00 AM EDT Appointment [place] [address] Thomas Curtis MD [facility] HEMATOLOGY [place] [address] 11/21/2023 11:00 AM EDT Infusion Hematology Oncology at [address] [phone] 12/05/2023 1:30 PM EDT Office Visit Hematology/Oncology at [address] [phone] Thomas Curtis MD [facility] HEMATOLOGY [place] [address] Fiordaliza Downing APRN [facility] [place] [address] 12/26/2023 9:00 AM EDT Appointment Nuclear Medicine at [place] [phone] Thomas Curtis MD [facility] HEMATOLOGY [place] [address] 02/09/2024 8:00 AM EST Appointment Nuclear Medicine at [place] [phone] Thomas Curtis MD [facility] HEMATOLOGY [place] [address] 03/18/2024 3:00 PM EST Office Visit Cardiology at [address] [phone] Sameer Rudolph MD [facility] [place] [address] 03/22/2024 9:00 AM EST Appointment Nuclear Medicine at [place] [phone] Thomas Curtis MD [facility] HEMATOLOGY [place] [address] 08/23/2024 Hospital Encounter Main [place] [address] True Juarez MD [facility] [place] [address] Scheduled Procedures Name Priority Associated Diagnoses Date/Ti [...] Understanding Patient Facing Action Plan Christy Bravo, [facility] Note: The patient? s goal is to continue positive results of oral chemotherapy by maintaining improved labs (PSA) or stable scans in clinic for the upcoming year. documented as of this encounter Visit Diagnoses Not on filedocumented in this encounter Care Teams Gift Packer Relationship Specialty Start Date End Date Nicolasa Valenzuela PA [address] [place] [address] PCP - General Family Medicine 12/20/21 documented as of this encounter
--- OUTSIDE RECORDS SUMMARY | 2023-10-16 03:09 | XMS_ITS | Encounter Summary ---
Author Organization [facility] Address [facility] [place] [address] Care Team Providers Care Support Merchandiser Name Role Phone Nicolasa Valenzuela Primary Care Pro vider Reason for Visit * Reason Comments Coronary Artery Disease Encounter Details Date Type Department Care Team (Latest Contact Info) Description 09/04/2023 3:00 PM EDT Office Visit Cardiology at [address] [place] [address] Sameer Rudolph MD [facility] [place] [address] Cardiomyopathy, unspecified type; ASCVD (arteriosclerotic cardiovascular disease) Social History Tobacco Use Types Packs/Day Years [...] place to sleep or slept in a skilled nursing (including now)? No 04/14/2023 DH IPV Inpatient [...] Sign Reading Time Taken Comments Blood Pressure 103/59 09/04/2023 3:37 PM EDT Pulse 80 09/04/2023 3:37 PM EDT Temperature - - Respiratory Rate - - Oxygen Saturation - - Inhaled Oxygen Concentration - - Weight - - Height - - Body Mass Index - - documented in this encounter Progress Notes * Sameer Rudolph MD - 09/04/2023 3:00 PM EDT Images from the original note were not included. Subjective: Patient ID: Huber Keys is a 67 y.o. male who presents on follow-up for: Chief Complaint Patient presents with Coronary Artery Disease HPI Last seen by me 05/2023, at which time no changes were made. Echocardiogram was repeated which demonstrated recovery of EF to but mildly reduced (as prior to [place] he was at). Since then, he continues to do well. Enjoyed his trip to [facility], where he enjoyed [employer] predominantly. Excellent activity there (and at home) without angina nor untoward dyspnea No bkleding on dapt Current Outpatient Medications Medication Instructions acetaminophen (TYLENOL) 650 mg, Oral, 3 TIMES DAILY aspirin 81 mg, Oral, DAILY atorvastatin (LIPITOR) 40 mg, Oral, DAILY cholecalciferoL (VITAMIN D3) 1,000 Units, Oral, DAILY clopidogreL (PLAVIX) 75 mg, Oral, DAILY HYDROcodone-acetaminophen ([place]) 5-325 mg tablet 1 tablet, Oral, EVERY 6 HOURS PRN Lantus Solostar U-100 Insulin 8 Units, Subcutaneous, DAILY levothyroxine (SYNTHROID) 150 mcg, Oral, DAILY nitroGLYcerin (NITROSTAT) 0.4 mg, Sublingual, EVERY 5 MIN PRN tamsulosin (FLOMAX) 0.4 mg, Oral, DAILY Patient Active Problem List Diagnosis ASCVD (arteriosclerotic cardiovascular disease) Cardiac Catheterization: (04/2023) RIGHT dominance Indication: NSTE-ACS LVEDP 25 Artery Lesion Intervention LM Distal 80 POBA LAD Os 95 Mid 70 Distal 80 D1: os 70 3.5 x 26 St[place]man 3.0 x 30 Stedman 2.5 x 18 Stedman LCx Os [employer] 3.0 x 34 [place] RCA PDA: Os 70 NB: Intervened on a different day than diagnostic cath whilst evaluated for CABG (not a candidate).AD/Cx intervention as mini-crush into LM). mLAD and dLAD interventions were lithotripsy, and performed on another day. Cardiomyopathy 09/2022: EF 27%, apical AK 12/2022: EF 48%, posterior HK 03/2023: EF 46%, posterior hk 04/2023 (at time of NTE-ACS): EF 29%, anterior HK new, apical AK new. 08/2023: EF 44%, posterior HK Swelling of lower leg negative DVT studiesleft Mitral valve insufficiency moderate CKD (chronic kidney disease) Congestive heart failure Adenoma of colon Hyperlipidemia Hypothyroidism Traumatic plantar fasciitis Type 2 diabetes mellitus Prostate cancer metastatic to multiple sites 10/04/2022 Surgical Pathology DIAGNOSIS A - Lymph node, biopsy: - Metastatic carcinoma, consistent with prostatic origin (see discussion) Sterling light chain disease Gout Retroperitoneal lymphadenopathy Hydronephrosis Objective: BP 103/59 Pulse 80 Gen: pleasant male in NAD Cor: rrr, s1/s2 of nl character and amplitude, no pathologic m/r/g. Estimated RAP not elevated. Carotids with normal upstroke without bruit. Pulm: CTAB. Normal diaphragmatic movement without use of accessory muscles EKG nsr, lateral STTW Assessment and Plan: ASCVD (arteriosclerotic cardiovascular disease) No angina per history. Excellent angiographic and symptomatic response. - Anti-Thrombosis: asa 81, plavix 75 - Anti- Lipemic: lipitor 40 - Anti- Anginals: GTN PRN Cardiomyopathy No failure by history nor exam. - Diuresis: none - Cardioprotection: not strictly indicated as EF> 40% RTC 6 months Sameer Rudolph MD documented in this encounter Miscellaneous Notes * Assessment & Plan Note - Sameer Rudolph MD - 09/04/2023 3:37 PM EDT Associated Problem(s): Cardiomyopathy No failure by history nor exam. - Diuresis: none - Cardioprotection: not strictly indicated as EF> 40% * Assessment & Plan Note - Sameer Rudolph MD - 09/04/2023 3:36 PM EDT Associated Problem(s): ASCVD (arteriosclerotic cardiovascular disease) No angina per history. Excellent angiographic and symptomatic response. - Anti-Thrombosis: asa 81, plavix 75 - Anti- Lipemic: lipitor 40 - Anti- Anginals: GTN PRN documented in this encounter Plan of Treatment Upcoming Encounters Date Type Department Care Team (Late st Contact Info) Description 10/16/2023 2:30 PM EDT Office Visit Hematology/Oncology at [address] [phone] Fiordaliza Downing, ACTUARIAL CLERK [facility] [place] [address] 11/10/2023 9:00 AM EDT Appointment [place] [address] Thomas Curtis MD [facility] HEMATOLOGY [place] [address] 11/21/2023 11:00 AM EDT Infusion Hematology Oncology at [address] [phone] 12/05/2023 1:30 PM EDT Office Visit Hematology/Oncology at [address] [phone] Thomas Curtis MD [facility] HEMATOLOGY [place] [address] Fiordaliza Downing APRN [facility] [place] [address] 12/26/2023 9:00 AM EDT Appointment [place] [address] Thomas Curtis MD [facility] HEMATOLOGY [place] [address] 02/09/2024 8:00 AM EST Appointment [place] [address] Thomas Curtis MD [facility] HEMATOLOGY [place] [address] 03/18/2024 3:00 PM EST Office Visit Cardiology at [address] [place] [phone] Sameer Rudolph MD [facility] [place] [address] 03/22/2024 9:00 AM EST Appointment [place] [address] Thomas Curtis MD [facility] [place]OLOG[place] [address] 08/23/2024 Hospital Encounter Main Operating Room [place] [phone] True Juarez MD [facility] [place] [address] Scheduled Procedures Name Priority Associated Diagnoses Date/Ti [...] Understanding Patient Facing Action Plan Christy Bravo, [facility] Note: The patient? s goal is to continue positive results of oral chemotherapy by maintaining improved labs (PSA) or stable scans in clinic for the upcoming year. documented as of this encounter Visit Diagnoses Diagnosis Cardiomyopathy, unspecified type ASCVD (arteriosclerotic cardiovascular disease) Unspecified cardiovascular disease documented in this encounter Care Teams Support Merchandiser Relationship Specialty Start Date End Date Nicolasa Valenzuela PA [address] [place] [address] PCP - General Family Medicine 12/20/21 documented as of this encounter
--- OUTSIDE RECORDS SUMMARY | 2023-10-16 03:09 | XMS_ITS | Encounter Summary ---
Author Organization [facility] Address [facility] [place] [address] Care Team Providers Care Quick Service Technician Name Role Phone Nicolasa Valenzuela Primary Care Pro vider Encounter Details Date Type Department Care Team (Late st Contact Info) Description 2023 Telephone Dermatology at [facility] [address] [place] [phone] Sidney Lee MD [facility] [address] [place] [address] Social History Tobacco Use Types Packs/Day Years Used Date Smoking Tobacco: Never Smokeless Tobacco: Never Alcohol Use Standard Drinks/Week Comments Yes 0 (1 standard drink = 0.6 oz pur e alcohol) rare [facility] Utilities Answer Date Recorded In the past 12 months has [employer], gas, oil, or water [employer] threatened to shut off services in your [...] place to sleep or slept in a fci (including now)? No 04/14/2023 DH IPV Inpatient [...] encounter Miscellaneous Notes * Telephone Encounter - Kelsie Min - 2023 12:12 PM EDT Received a call from [employer] requesting a PA for : hydrOXYzine (Atarax) 25 mg tablet Case # [id number] Telephone number [phone]. They are sending a fax. documented in this encounter Plan of Treatment Upcoming Encounters Date Type Department Care Team (Late st Contact Info) Description 10/16/2023 2:30 PM EDT Office Visit Hematology/Oncology at [address] [phone] Fiordaliza Downing APRN [facility] [place] [address] 11/10/2023 9:00 AM EDT Appointment [place] [phone] Thomas Curtis MD [facility] HEMATOLOGY [place] [address] 11/21/2023 11:00 AM EDT Infusion Hematology Oncology at [address] [phone] 12/05/2023 1:30 PM EDT Office Visit Hematology/Oncology at [address] [phone] Thomas Curtis MD [facility] HEMATOLOGY [place] [address] Fiordaliza Downing APRN [facility] [place] [address] 12/26/2023 9:00 AM EDT Appointment [place] [address] Thomas Curtis MD [facility] HEMATOLOGY [place] [address] 02/09/2024 8:00 AM EST Appointment [place] [address] Thomas Curtis MD [facility] HEMATOLOGY [place] [address] 03/18/2024 3:00 PM EST Office Visit Cardiology at [address] [place] [address] Sameer Rudolph MD [facility] [address] 03/22/2024 9:00 AM EST Appointment Nuclear Medicine at [place] [phone] Thomas Curtis MD [facility] HEMATOLOGY [place] [address] 08/23/2024 Hospital Encounter [place] [address] True Juarez MD [facility] [place] [address] Scheduled Procedures Name Priority Associated Diagnoses Date/Ti [...] Facing Action Plan Christy Bravo, [facility] Note: The patient? s goal is to continue positive results of oral chemotherapy by maintaining improved labs (PSA) or stable scans in clinic for the upcoming year. documented as of this encounter Visit Diagnoses Not on filedocumented in this encounter Care Teams Quick Service Technician Relationship Specialty Start Date End Date Nicolsaa Valenzuela PA [address] [place] [address] PCP - General Family Medicine 12/20/21 documented as of this encounter
--- OUTSIDE RECORDS SUMMARY | 2023-10-16 03:09 | XMS_ITS | Encounter Summary ---
Author Organization [facility] Address [facility] [place] [address] Care Team Providers Care Temperature Regulator Name Role Phone Nicolasa Valenzuela Primary Care Pro vider Reason for Visit * Reason Onset Date Comments Prior Authorization 09/06/2023 hydrOXYzine Pamoate 25MG capsules Encounter Details Date Type Department Care Team (Late st Contact Info) Description 09/06/2023 Telephone Dermatology at [facility] [address] [place] [address] Laureano Arguello LNA Prior Authorization (hydrOXYzine Pamoate 25MG capsules) Social History Tobacco Use Types Packs/Day Years Used Date Smoking Tobacco: Never Smokeless Tobacco: Never Alcohol Use Standard Drinks/Week Comments Yes 0 (1 standard drink = 0.6 oz pur e alcohol) rare [facility] Utilities Answer Date Recorded In the past 12 months has [employer], gas, oil, or water [employer] threatened to shut off services in your [...] place to sleep or slept in a penitentiary (including now)? No 04/14/2023 DH IPV Inpatient [...] encounter Miscellaneous Notes * Telephone Encounter - Laureano Arguello LNA - 09/13/2023 7:14 AM EDTSummary: Approved - hydrOXYzine Pamoate 25MG capsules Submitted Date: Submitted Date: 09/06/2023 Next Review Date: Next Review Date: 09/07/2024 PA Outcome: PA Approval Medication Prior Authorization Approval Approved: hydrOXYzine Pamoate 25MG capsules Start Date: 08/09/2023 End Date: 09/07/2024 Case/Reference #: [id number] Approval Letter will be scanned into media once received. * Telephone Encounter - Kasia Pineda MA - 09/08/2023 12:19 PM EDT Sidney Lee MD sent to [facility] Primary Care Clinical Support Cc: [facility] Dermatology Nurse Caller: Unspecified (2 days ago, 10:17 AM) Yes ----- Message from Merissa Arciniega CMA sent at 09/08/2023 11:33 AM EDT ----- [facility]ly [facility], Insurance is asking the provider to acknowledge that this is a high risk medication for the patient. Please respond with yes if you are aware that this is a high risk medication, and wish to proceed with the prior authorization. Please respond with no if you are aware that this is a high risk medication, and do not wish to proceed with the prior authorization. Thank you * Telephone Encounter - Laureano Arguello LNA - 09/06/2023 10:34 AM EDT Images from the original note were not included. Please confirm if you have assessed the risks versus benefits of prescribing this medication. * Telephone Encounter - Laureano Arguello LNA - 09/06/2023 10:17 AM EDT PA Submitted Submitted Date: Date Submitted: 09/06/2023 Medication Prior Authorization Patient: Huber Keys Patient : 1955 Insurance Company: [employer] [facility] Medicare Sent via: [facility] [place]: [id number] Physician: Sidney Lee MD Medication Requested: hydrOXYzine Pamoate 25MG capsules Frequency/Sig: Take 1 tablet by mouth nightly Disp: 30 tablets Refills: 0 Currently taking: no Diagnosis for this medication: Acute urticaria [L50.8] Prior medications trialed in this patient: Medication: triamcinolone (Kenalog) 0.1 % Cream Approx Dates: 09/05/2023 current Outcome/Adverse Reactions: Inadequate response alone Additional Notes: [place]/06[place]23 History of Present Illness: Huber Keys is [...] years as a drug reaction to amoxicillin. Assessment/Plan #. Acute Urticaria - -Acute urticaria is defined as individual urticarial lesions lasting less than 24 hours with less than overall 6 weeks duration. Urticaria can present at any time of the day but typically presents atnight or early in the morning. Approximately 50% of all acute urticaria has idiopathic etiology, 40% secondary to recent illness/ URI, 9% medications and 1% foods. Physical urticaria is defined as a subset of urticaria that can involve mechanical stimuli, temperature change, sweating or stress. Mainstay of treatment is symptomatic and includes antihistamines that can reduce pruritus and shorten wheal duration but does not necessarily prevent new urticaria from forming. -patients in whom no trigger or underlying disorder is identified, there is a rate of spontaneous remission at one year of approximately 30 to 50 percent. However, 30 of patients persists beyond 5 years. - No investigations are required for the majority of patients with mild disease that responds to antihistamines. - Patient provided history at this time is not indicative of drug induced urticaria. - Start OTC Cetirizine (Zyrtec) 10mg daily Ok to increase to four times daily (2 tablets in the A.M2 in the P.M) if symptoms persists - Start Rx Hydroxyzine 25m tablets: Take one tablet nightly - apply OTC Eucerin once daily immediately after bathing as a moisturizer. - Recommended application of OTC Sarna anti-itch lotion applied twice daily to affected area. - Start Rx triamcinolone (Kenalog) 0.1% cream: Apply topically to affected area(s) on the trunk andextremities twice daily for up to 2 weeks. Take 1 week off and then repeat cycle as needed. documented in this encounter Plan of Treatment Upcoming Encounters Date Type Department Care Team (Late st Contact Info) Description 10/16/2023 2:30 PM EDT Office Visit Hematology/Oncology at [address] [phone] Fiordaliza Downing APRN [facility] [address] 11/10/2023 9:00 AM EDT Appointment [place] [address] Thomas Curtis MD [facility] [place]ATOLOG[place] [address] 11/21/2023 11:00 AM EDT Infusion Hematology Oncology at [address] [phone] 12/05/2023 1:30 PM EDT Office Visit Hematology/Oncology at [address] [phone] Thomas Curtis MD [facility] H[place]ATOLOGY [place] [address] Fiordaliza Downing APRN [facility] [place] [address] 12/26/2023 9:00 AM EDT Appointment [place] [address] Thomas Curtis MD [facility] HEMATOLOGY [place] [address] 02/09/2024 8:00 AM EST Appointment [place] [phone] Thmoas Curtis MD [facility] DR HEMATOLOGY [place] [address] 03/18/2024 3:00 PM EST Office Visit Cardiology at [address] [place] [address] Sameer Rudolph MD [facility] [place] [address] 03/22/2024 9:00 AM EST Appointment [place] [phone] Thomas Curtis MD [facility] HEMATOLOGY [place] [address] 08/23/2024 Hospital Encounter [place] [phone] True Juarez MD [facility] [place] [address] Scheduled Procedures Name Priority Associated Diagnoses Date/Ti [...] Understanding Patient Facing Action Plan Christy Bravo [facility] Note: The patient? s goal is to continue positive results of oral chemotherapy by maintaining improved labs (PSA) or stable scans in clinic for the upcoming year. documented as of this encounter Visit Diagnoses Not on filedocumented in this encounter Care Teams Temperature Regulator Relationship Specialty Start Date End Date Nicolasa Valenzuela PA [address] [place] [address] PCP - General Family Medicine 12/20/21 documented as of this encounter
--- OUTSIDE RECORDS SUMMARY | 2023-10-16 03:09 | XMS_ITS | Encounter Summary ---
Author Organization [facility] Address [facility] [place] [address] Care Team Providers Care Inshore Undersea Warfare Officer Name Role Phone Nicolasa Valenzuela Primary Care Pro vider Encounter Details Date Type Department Care Team (Late st Contact Info) Description 08/23/2023 Telephone Hematology/Oncology at [address] [phone] Elisha Montoya Social History Tobacco Use Types Packs/Day Years Used Date Smoking Tobacco: Never Smokeless Tobacco: Never Alcohol Use Standard Drinks/Week Comments Yes 0 (1 standard drink = 0.6 oz pur e alcohol) rare [facility] Utilities Answer Date Recorded In the [...] place to sleep or slept in a long-term (including now)? No 04/14/2023 DH IPV Inpatient [...] encounter Miscellaneous Notes * Telephone Encounter - Elisha Montoya - 08/23/2023 9:18 AM EDT I called to let him know that he is scheduled 08/24/23 for lupron no labs. I had to leave a message documented in this encounter Plan of Treatment Upcoming Encounters Date Type Department Care Team (Late st Contact Info) Description 10/16/2023 2:30 PM EDT Office Visit Hematology/Oncology at [address] [phone] Fiordaliza Downing, RESEARCH ASSOCIATE QUALITY CONTROL QC [facility] [address] [place] [address] 11/10/2023 9:00 AM EDT Appointment [place] [phone] Thomas Curtis MD [facility] [place]Y [place] [address] 11/21/2023 11:00 AM EDT Infusion Hematology Oncology at [address] [phone] 12/05/2023 1:30 PM EDT Office Visit Hematology/Oncology at [address] [phone] Thomas Curtis MD [facility] [place] [address] Fiordaliza Downing APRN [facility] [place] [address] 12/26/2023 9:00 AM EDT Appointment [place] [address] Thomas Curtis MD [facility] DR [place] [address] 02/09/2024 8:00 AM EST Appointment [place] [phone] Thomas Curtis MD [facility] [place]Y [place] [address] 03/18/2024 3:00 PM EST Office Visit Cardiology at [address] [place] [phone] Sameer Rudolph MD [facility] [place] [address] 03/22/2024 9:00 AM EST Appointment [place] [address] Thomas Curtis MD [facility] [place]OLOGY [place] [address] 08/23/2024 Hospital Encounter Main Operating Room [facility] [place] [address] True Juarez MD [facility] [place] [address] Scheduled Procedures Name Priority Associated Diagnoses Date/Ti [...] Understanding Patient Facing Action Plan Christy Bravo, [facility] Note: The patient? s goal is to continue positive results of oral chemotherapy by maintaining improved labs (PSA) or stable scans in clinic for the upcoming year. documented as of this encounter Visit Diagnoses Not on filedocumented in this encounter Care Teams Inshore Undersea Warfare Officer Relationship Specialty Start Date End Date Nicolasa Valenzuela PA [address] [place] [address] PCP - General Family Medicine 12/20/21 documented as of this encounter
--- OUTSIDE RECORDS SUMMARY | 2023-10-16 03:09 | XMS_ITS | Encounter Summary ---
Author Organization [facility] Address [facility] [place] [address] Care Team Providers Care Veneer Taper Name Role Phone Nicolasa Valenzuela Primary Care Pro vider Reason for Visit * Reason Onset Date Comments Dizziness 09/27/2023 Encounter Details Date Type Department Care Team (Late st Contact Info) Description 09/27/2023 Telephone Hematology/Oncology at [address] [phone] Pooja Joshua RN Dizziness Social History Tobacco Use Types Packs/Day Years Used Date Smoking Tobacco: Never Smokeless Tobacco: Never Alcohol Use Standard Drinks/Week Comments Yes 0 (1 standard drink = 0.6 oz pur e alcohol) rare [facility] Utilities Answer Date Recorded In the [...] place to sleep or slept in a chcf (including now)? No 04/14/2023 IPV Inpatient Questions Answer Date Recorded Does [...] encounter Miscellaneous Notes * Telephone Encounter - Alexsandra Maurice RN - 2023 1:23 PM EDT Called and reviewed labs done at [facility] 09/26 with pt. In regards to his concerns yesterday he does again endorse normal BP today 95/68, feeling more fatigue with activity (he is working at [employer] today) and sometimes dizzy but not enough to fall down or anything. He knows he has a lower EF44% and understand this means he has increased fatigue with activity. He denies any chest pain or cardiac symptoms stating he knows what that feels like and aware to get urgent evaluation if symptoms present. Advised I would review with provider and if any recommendations will call back. He is scheduled for second Pluvicto treatment tomorrow. * Telephone Encounter - Pooja Joshua RN - 09/27/2023 2:16 PM EDT Caller: Huber Keys Relationship: Self Clarified Two Patient Identifiers: [x] Reason For Call: Dizziness And fatigue Assessment/Symptom Review (onset, location, duration, what makes it better or worse, pertinent positives and negatives): Dx: Metastatic Prostate Cancer Last Pluvicto was 08/17, next scheduled Pluvicto is 09/28 Huber reports lightheadedness and feeling out of breath when he stands up. He states the symptomsgo away after about a minute of activity. This has been happening intermittently for the last 1.5-2weeks. He denies blood in stool or urine. Denies chest pain. He checks his BP every day at home it is typically around 105/68, he did check it after standing and it dropped to 85/??(he couldn't remember). He does not take anything for BP. He is drinking about 2 quarts of water/fluids per day. He had labs drawn at the lab at [facility] at 1200 today. I called to check on status of results- they will be sending the specimens to the [facility] around 1530 today and won't have results until possibly the morning. Review of Systems Related to Reason for Call: System POS NEG Not Applicable Head (ENT /Neuro) [x] [] [] Cardiac [] [x] [] Respiratory [x] [] [] GI [] [] [x] [] [] [x] Musculoskeletal [] [] [x] Integumentary [] [] [x] Mental Health [] [] [x] Select Specific Decision Support Tool Used: Telephone Triage for Oncology Nurses, 3rd Edition, ONC,Sunny and Rogelio, 2019 Name of Guideline/Protocol Used: dizziness Disposition/Plan of Care: Defer to provider recommendation Awaiting lab results, Home care instructions: Change positions slowly Activity as tolerated, energy conservation Patient/Caregiver verbalizes understanding of plan of care: Yes Patient/Caregiver agrees with plan: Yes Advised patient/caregiver to: call office back for any new or worsening symptoms; emphasized symptoms that would require immediate ER/UC visit as per guideline in [place] Patient/Caregiver demonstrates understanding via teach back: Yes documented in this encounter Plan of Treatment Upcoming Encounters Date Type Department Care Team (Late st Contact Info) Description 10/16/2023 2:30 PM EDT Office Visit Hematology/Oncology at [address] [phone] Fiordaliza Downing APRN [facility] [place] [address] 11/10/2023 9:00 AM EDT Appointment [place] [phone] Thomas Curtis MD [facility] [place] [address] 11/21/2023 11:00 AM EDT Infusion Hematology Oncology at [address] [phone] 12/05/2023 1:30 PM EDT Office Visit Hematology/Oncology at [address] [phone] Thomas Curtis MD [facility] [place] [address] Fiordaliza Downing APRN [facility] [place] [address] 12/26/2023 9:00 AM EDT Appointment [place] [phone] Thomas Curtis MD [facility] [place] [address] 02/09/2024 8:00 AM EST Appointment [place] [phone] Thomas Curtis MD [facility] DR [place] [address] 03/18/2024 3:00 PM EST Office Visit Cardiology at [address] [place] [address] Sameer Rudolph MD [facility] [place] [address] 03/22/2024 9:00 AM EST Appointment [place] [phone] Thomas Curtis MD [facility] [place] [address] 08/23/2024 Hospital Encounter [place] [address] True Juarez MD [facility] [address] Scheduled Procedures Name Priority Associated Diagnoses Date/Ti [...] Understanding Patient Facing Action Plan Christy Bravo, [facility] Note: The patient? s goal is to continue positive results of oral chemotherapy by maintaining improved labs (PSA) or stable scans in clinic for the upcoming year. documented as of this encounter Visit Diagnoses Not on filedocumented in this encounter Care Teams Veneer Taper Relationship Specialty Start Date End Date Nicolasa Valenzuela PA [address] [place] [address] PCP - General Family Medicine 12/20/21 documented as of this encounter
--- OUTSIDE RECORDS SUMMARY | 2023-10-16 03:09 | XMS_ITS | Encounter Summary ---
Author Organization [facility] Address [facility] [place] [address] Care Team Providers Care Facility Coordinator Name Role Phone Nicolasa Valenzuela Primary Care Pro vider Encounter Details Date Type Department Care Team (Latest Contact Info) Description 09/27/2023 12:20 PM EDT Laboratory Appointment Lab at [facility] [address] [place] [phone] Prostate cancer Social History Tobacco Use Types Packs/Day Years Used Date Smoking Tobacco: Never Smokeless Tobacco: Never Alcohol Use Standard Drinks/Week Comments Yes 0 (1 standard drink = 0.6 oz pur e alcohol) rare [facility] Utilities Answer Date Recorded In the [...] place to sleep or slept in a snf (including now)? No 04/14/2023 DH IPV Inpatient [...] 2:30 PM EDT Office Visit Hematology/Oncology at [address] [phone] Fiordaliza Downing APRN [facility] [place] [address] 11/10/2023 9:00 AM EDT Appointment [place] [address] Thomas Curtis MD [facility] DR HEMATOLOGY [place] [address] 11/21/2023 11:00 AM EDT Infusion Hematology Oncology at [address] [phone] 12/05/2023 1:30 PM EDT Office Visit Hematology/Oncology at [address] [phone] Thomas Curtis MD [facility] HEMATOLOGY [place] [address] Fiordaliza Downing APRN [facility] [place] [address] 12/26/2023 9:00 AM EDT Appointment [place] [phone] Thomas Curtis MD [facility] HEMATOLOGY [place] [address] 02/09/2024 8:00 AM EST Appointment [place] [phone] Thomas Curtis MD [facility] HEMATOLOGY [place] [address] 03/18/2024 3:00 PM EST Office Visit Cardiology at [address] [phone] Sameer Rudolph MD [facility] [address] 03/22/2024 9:00 AM EST Appointment [place] [phone] Thomas Curtis MD [facility] HEMATOLOGY [place] [address] 08/23/2024 Hospital Encounter [place] [phone] True Juarez MD [facility] [place] [address] Scheduled Procedures Name Priority Associated Diagnoses Date/Ti [...] Understanding Patient Facing Action Plan Christy Bravo, [facility] Note: The patient? s goal is to continue positive results of oral chemotherapy by maintaining improved labs (PSA) or stable scans in clinic for the upcoming year. documented as of this encounter Procedures Procedure Name Priority Date/Time Associated Diagnosis Comments HEMOGRAM Routine 09/27/2023 12:18 PM EDT Prostate cancer DIFFERENTIAL, AUTOMATED Routine 09/27/2023 12:18 PM EDT Prostate cancer CBC (WITH DIFF) Routine 09/27/2023 12:18 PM EDT Prostate cancer COMPREHENSIVE METABOLIC PANEL Routine 09/27/2023 12:18 PM EDT Prostate cancer documented in this encounter Results * Differential, Automated (09/27/2023 12:18 PM EDT) Neutrophil % 56.1 % [facility] Neutrophil Absolute 2.79 1.70 - 6.10 x10(3)/[facility] Lymph % 25.7 % [facility] Lymphocytes Abs 1.3 0.9 - 3.2 x10(3)/[facility] Monocyte % 12.4 % [facility] Monocyte Abs 0.6 0.3 - 0.9 x10(3)/[facility] Eos % 4.6 % [facility] Eosinophils Abs 0.2 0.0 - 0.4 x10(3)/[facility] Basophil % 1.0 % [facility] Baso Absolute 0.0 0.0 - 0.1 x10(3)/[facility] Immature Gran % 0.20 % [facility] Comment: Immature granulocytes(IG's)percentage and absolute count will include metamyelocytes, myelocytes, and promyelocytes. Blood smears from CBCs yielding IG's will be scanned manually for concordance. If this scan disagrees with the automated IG or if promyelocytes are noted, a manual differential will be performed. Immature Gran Absolute 0.01 0.00 - 0.04 x10(3)/[facility] Blood 09/27/2023 12:1 8 PM EDT 09/27/2023 4:56 PM EDT Narrative Resulting Agency Comment Spec In Lab Thomas Curtis MD HEMATOLOGY ORDERABLE S Performing Organization Address City/State/[facility] Co de Phone Number [facility] [place] [address] * (ABNORMAL) Hemogram (09/27/2023 12:18 PM EDT) White Blood Cell 5.0 4.0 - 9.5 x10(3)/ L [facility] Red Blood Cell 3.18(L) 4.58 - 5.54 x10(6)/ L [facility] Hemoglobin 9.2(L) 13.7 - 16.5 g/dL [facility] Hematocrit 28.9(L) 40.5 - 48.5 % [facility] Mean Cell Volume 90.9 82.9 - 93.1 fL [facility] Mean Cell Hemoglobin 28.9 27.5 - 32.1 pg [facility] Mean Cell Hemoglobin Concentration 31.8(L) 32.0 - 35.7 g/dL [facility] Platelet 356 145 - 357 x10(3)/ L [facility] RDW Standard Deviation 55.8(H) 36.0 - 45.0 fL [facility] RDW coefficient of variation 16.6(H) 11.4 - 13.8 % [facility] Mean Platelet Volume 8.9 7.6 - 12.9 fL [facility] NRBC% auto 0.0 % [facility] NRBC Absolute 0.000 0.000 - 0.000 x10(3)/mc L [facility] Blood 09/27/2023 12:1 8 PM EDT 09/27/2023 4:56 PM EDT Narrative Resulting Agency Comment Spec In Lab Thomas Curtis MD HEMATOLOGY ORDERABLE S [facility] [place] [address] * (ABNORMAL) Comprehensive metabolic panel (non-fasting) (09/27/2023 12:18 PM EDT) Glucose 134 65 - 199 mg/dL [facility] Comment:Diabetes: >=200 mg/d L plus symptoms Blood Urea Nitrogen 37(H) 10 - 20 mg/dL [facility] Creatinine 1.80(H) 0.80 - 1.50 mg/dL [facility] Sodium 135 135 - 145 mmol/L [facility] Potassium 4.8 3.5 - 5.0 mmol/L [facility] Comment: Please note: ??Patients with WBC >100,000 may have falsely elevated Potassium levels. ??For accurate Potassium quantification in these patients send serum separator tube (gold top) for subsequent determinations. ??Contact the Clinical Chemistry Laboratory if there are any questions. Chloride 104 98 - 107 mmol/L [facility] Carbon Dioxide 20(L) 22 - 31 mmol/L [facility] Anion Gap 11 5 - 15 mmol/L [facility] Calcium 9.8 8.5 - 10.5 mg/dL [facility] Protein, Total 7.7 6.1 - 8.0 g/dL [facility] Albumin 3.7 3.2 - 5.2 g/dL [facility] Aspartate Aminotransferase 21 0 - 39 unit/L [facility] Alanine Aminotransferase 11 0 - 55 unit/L [facility] Alkaline Phosphatase 79 40 - 130 unit/L [facility] Bilirubin, Total 0.2 0.2 - 1.3 mg/dL [facility] Est Glomerular Filtration Rate 40(L) >=60 mL/min/1. 73 m?? [facility] Comment: This patient's estimated GFR was calculated using the 2020 CKD-EPI equation. The estimated GFR can vary from the measured GFR by up to 30% in the absence of rapidly changing kidney function. Assessment of the estimated GFR is not appropriate when creatinine concentrations are rapidly changing. For clinical situations in which a more precise estimate of GFR is necessary, consider alternative methods of GFR estimation such as a 24-hour urine creatinine clearance. Assignment of CKD stage 1-5 for patients with an eGFR near the transition point between stages may be based on clinical assessment of muscle mass and symptoms in addition to eGFR. Blood 09/27/2023 12:1 8 PM EDT 09/27/2023 4:56 PM EDT Narrative Resulting Agency Comment Spec In Lab Thomas Curtis MD CHEMISTRY ORDERABLES [facility] [place] [address] documented in this encounter Visit Diagnoses Diagnosis Prostate cancer Malignant neoplasm of prostate documented in this encounter Care Teams Facility Coordinator Relationship Specialty Start Date End Date Nicolasa Valenzuela PA [address] [place] [address] PCP - General Family Medicine 12/20/21 documented as of this encounter
--- OUTSIDE RECORDS SUMMARY | 2023-10-16 03:09 | XMS_ITS | Encounter Summary ---
Author Organization [facility] Address [facility] [place] [address] Care Team Providers Care Dust Brush Assembler Name Role Phone Nicolasa Valenzuela Primary Care Pro vider Encounter Details Date Type Department Care Team (Late st Contact Info) Description 09/12/2023 Telephone Hematology/Oncology at [address] [phone] Radha Carmen RN Social History Tobacco Use Types Packs/Day Years Used Date Smoking Tobacco: Never Smokeless Tobacco: Never Alcohol Use Standard Drinks/Week Comments Yes 0 (1 standard drink = 0.6 oz pur e alcohol) rare [facility] Utilities Answer Date Recorded In the [...] in a chcf (including now)? No 04/14/2023 DH IPV Inpatient [...] encounter Miscellaneous Notes * Telephone Encounter - Radha Carmen RN - 09/12/2023 11:08 AM EDT Labs drawn 09/12/23 for Bubba scheduled on 09/29/23. WBC 4.7 H/H 8.7/26.3 Plts 316 ANC 2.75 BUN/Cr 34/1.9 AST 24 ALT 18 Alk Phos 76 PSA pending Thomasguillermo Curtis aware and Beck Gilmore MD notified. Latest Reference Range & Units 05/03/23 00:10 08/04/23 00:00 09/12/23 00:00 WBC 4.0 - 9.5 x10(3)/mcL 4.8 6.67 (E) 4.7 (E) RBC 4.58 - 5.54 x10(6)/mcL 2.97 (L) 3.01 Hemoglobin 13.7 - 16.5 g/dL 9.5 (L) 10.2 (E) 8.7 (E) Hematocrit 40.5 - 48.5 % 28.0 (L) 31.1 (E) 26.3 (E) Platelets 145 - 357 x10(3)/mcL 235 340 (E) 316 (E) Neutr Abs (ANC) 4.44 (E) 2.75 (E) Sodium 135 - 145 mmol/L 138 132 (E) 136 BUN 10 - 20 mg/dL 30 (H) 35 (E) 34 (E) Creatinine 0.80 - 1.50 mg/dL 1.47 1.9 (E) 1.9 (E) Glucose Lvl 65 - 199 mg/dL 135 152 (E) (L): Data is abnormally low (H): Data is abnormally high (E): External lab result documented in this encounter Plan of Treatment Upcoming Encounters Date Type Department Care Team (Late st Contact Info) Description 10/16/2023 2:30 PM EDT Office Visit Hematology/Oncology at [address] [phone] Fiordaliza Downing APRN [facility] [place] [address] 11/10/2023 9:00 AM EDT Appointment [place] [address] Thomas Curtis MD [facility] HEMATOLOGY [place] [address] 11/21/2023 11:00 AM EDT Infusion Hematology Oncology at [address] [phone] 12/05/2023 1:30 PM EDT Office Visit Hematology/Oncology at [address] [phone] Thomas Curtis MD [facility] HEMATOLOGY [place] [address] Fiordaliza Downing APRN [facility] [place] [address] 12/26/2023 9:00 AM EDT Appointment Nuclear Medicine at [place] [phone] Thomas Curtis MD [facility] HEMATOLOGY [place] [address] 02/09/2024 8:00 AM EST Appointment [place] [phone] Thomas Curtis MD [facility] HEMATOLOGY [place] [address] 03/18/2024 3:00 PM EST Office Visit Cardiology at [address] [phone] Sameer Rudolph MD [facility] [place] [address] 03/22/2024 9:00 AM EST Appointment [place] [phone] Thomas Curtis MD [facility] HEMATOLOGY [place] [address] 08/23/2024 Hospital Encounter [place] [phone] True Juarez MD [facility] [place] [address] Scheduled Procedures Name Priority Associated Diagnoses Date/Ti [...] Patient Facing Action Plan Christy Bravo, [facility] Note: The patient? s goal is to continue positive results of oral chemotherapy by maintaining improved labs (PSA) or stable scans in clinic for the upcoming year. documented as of this encounter Visit Diagnoses Not on filedocumented in this encounter Care Teams Dust Brush Assembler Relationship Specialty Start Date End Date Nicolasa Valenzuela PA [address] [place] [address] PCP - General Family Medicine 12/20/21 documented as of this encounter
--- OUTSIDE RECORDS SUMMARY | 2023-10-16 03:09 | XMS_ITS | Encounter Summary ---
Author Organization Counts Include [address] [facility] Address [facility] [place] [address] Care Team Providers Care Life Scientists Name Role Phone Nicolasa Valenzuela Primary Care Pro vider Encounter Details Date Type Department Care Team (Late st Contact Info) Description 09/08/2023 Telephone Dermatology at [facility] [address] [place] [phone] Sidney Lee MD [facility] [address] [place] [address] Social History Tobacco Use Types Packs/Day Years Used Date Smoking Tobacco: Never Smokeless Tobacco: Never Alcohol Use Standard Drinks/Week Comments Yes 0 (1 standard drink = 0.6 oz pur e alcohol) rare [facility] Utilities Answer Date Recorded In the past 12 months has [employer], gas, oil, or water [employer] threatened to shut off services in your [...] encounter Miscellaneous Notes * Telephone Encounter - Emilie Jennings - 09/08/2023 3:04 PM EDT I received a phone call from Huber Keys stating he was just notified by his insurance that the PA that was done for his hydrOXYzine (Atarax) 25 mg tablet was approved. He was not given a reference number. I told him I would send a note to the team to see if they can look into this. He can be reached back at [phone] documented in this encounter Plan of Treatment Upcoming Encounters Date Type Department Care Team (Late st Contact Info) Description 10/16/2023 2:30 PM EDT Office Visit Hematology/Oncology at [address] [phone] Fiordaliza Downing APRN [facility] [place] [address] 11/10/2023 9:00 AM EDT Appointment [place] [address] Thomas Curtis MD [facility] HEMATOLOGY [place] [address] 11/21/2023 11:00 AM EDT Infusion Hematology Oncology at [address] [phone] 12/05/2023 1:30 PM EDT Office Visit Hematology/Oncology at [address] [phone] Thomas Curtis MD [facility] HEMATOLOGY [place] [address] Fiordaliza Downing APRN [facility] [place] [address] 12/26/2023 9:00 AM EDT Appointment [place] [address] Thomas Curtis MD [facility] HEMATOLOGY [place] [address] 02/09/2024 8:00 AM EST Appointment [place] [phone] Thomas Curtis MD [facility] HEMATOLOGY [place] [address] 03/18/2024 3:00 PM EST Office Visit Cardiology at [address] [phone] Sameer Rudolph MD [facility] [place] [address] 03/22/2024 9:00 AM EST Appointment [place] [phone] Thomas Curtis MD [facility] HEMATOLOGY [place] [address] 08/23/2024 Hospital Encounter [place] [phone] True Juarez MD [facility] [place] [address] Scheduled Procedures Name Priority Associated [...] Understanding Patient Facing Action Plan Christy Bravo, [facility] Note: The patient? s goal is to continue positive results of oral chemotherapy by maintaining improved labs (PSA) or stable scans in clinic for the upcoming year. documented as of this encounter Visit Diagnoses Not on filedocumented in this encounter Care Teams Life Scientists Relationship Specialty Start Date End Date Nicolasa Valenzuela PA [address] [place] [address] PCP - General Family Medicine 12/20/21 documented as of this encounter
--- OUTSIDE RECORDS SUMMARY | 2023-10-16 03:09 | XMS_ITS | Encounter Summary ---
Author Organization [facility] Address [facility] Arianna [place]guyen[place] [address] Care Team Providers Care Sack Lifter Name Role Phone Nicolasa Valenzuela Primary Care Pro vider Encounter Details Date Type Department Care Team (Late st Contact Info) Description 09/12/2023 10:30 AM EDT Office Visit Hematology/Oncology at [address] [phone] Thomas Branch MD [facility] [address] HEMATOLOGY [place] [address] Fiordaliza Downing APRN [facility] [place] [address] Prostate cancer metastatic to multiple sites; High risk medication use; Androgen deprivation therapy Social History Tobacco Use Types Packs/Day Years Used Date Smoking Tobacco: Never Smokeless Tobacco: Never Alcohol Use Standard Drinks/Week Comments Yes 0 (1 standard drink = 0.6 oz pur e alcohol) rare [facility] Utilities Answer Date Recorded In [...] Sign Reading Time Taken Comments Blood Pressure 112/61 09/12/2023 10:47 AM EDT Pulse 77 09/12/2023 10:47 AM EDT Temperature 36 ??C (96.8 ??F) 09/12/2023 10:47 AM EDT Respiratory Rate 16 09/12/2023 10:47 AM EDT Oxygen Saturation 100% 09/12/2023 10:47 AM EDT Inhaled Oxygen Concentration - - Weight 79.9 kg (176 lb 3.2 oz) 09/12/2023 10:47 AM EDT Height 177.8 cm (5' 10) 09/12/2023 10:47 AM EDT Body Mass Index 25.28 09/12/2023 10:47 AM EDT documented in this encounter Progress Notes * Thomas Branch MD - 09/12/2023 10:30 AM EDT Images from the original note were not included. ONCOLOGY FOLLOW UP ONCOLOGY SUMMARY: 1. Metastatic high risk prostate cancer -PSA =35 in Aug 2021. mpMRI 10/26/21: 25 x 35-mm PI-RADs 5 lesion in bilateral TX (base & mid gland) -TRUS bx 12/2021 (PSA = 111) was neg (treated emprically for prostatitis). PSA 89 in Mar 2022. Discussed PSMA PET etc but agreed to monitor closely and rebiopsy -Admitted w/bilat hydronephrosis Sep 2022 s/p PCN -> stenting. CT showed mild SC and mediastinal& conglomerate of RP nodes spanning from celiac a. to iliacs. RLE swelling -Ct guided pelvic node bx 09/30/22: Metastatic carcinoma, c/w prostatic primary (NKX3.1+ patchy PSA,AR+) -PSMA PET 10/31/22: osseus uptake in prox L femur, R pelvis, L2 right pedicle and nodes (pelvis to cervical) -Started bcalutamide around 10/08/3022. Leuprolide 22.5 mg on 10/31/2022 -Bicalutamide stopped and Abiraterone with Pred added 11/17/2022 Interval history:Huber Keys is in clinic for follow-up on metastatic prostate cancer and Pluvicto toxicity check. Huber had good time traveling to [place]. Few weeks ago. He had first Pluvicto treatment on August 17. Tolerated that well with mild fatigue. He has mild exertional shortness of breath. Continue to follow with cardiology team. He denies any new pain. No changes in urination or bowel movements. Otherwise, no focal complaints. REVIEW OF SYSTEMS: As in interval history PAST MEDICAL HISTORY: MN 04/12/2023, cardiac catheterization on April 18 and May 02 with total of 4 stents placed Cardiomyopathy, T2DM, HLD, hypothyroidism, CKD for which he follows with his PCP Patient Active Problem List Diagnosis Swelling of lower leg negative DVT studiesleft Mitral valve insufficiency moderate CKD (chronic kidney disease) Congestive heart failure Adenoma of colon ASCVD (arteriosclerotic cardiovascular disease) Cardiac Catheterization: (04/2023) RIGHT dominance Indication: NSTE-ACS LVEDP 25 Artery Lesion Intervention LM Distal 80 POBA LAD Os 95 Mid 70 Distal 80 D1: os 70 3.5 x 26 Hebert 3.0 x 30 Hebert 2.5 x 18 Hebert LCx Os PROGRAM DEVELOPER 3.0 x 34 [place] RCA PDA: Os 70 NB: Intervened on a different day than diagnostic cath whilst evaluated for CABG (not a candidate).AD/Cx intervention as mini-crush into LM). mLAD and dLAD interventions were lithotripsy, and performed on another day. Hyperlipidemia Hypothyroidism Traumatic plantar fasciitis Type 2 diabetes mellitus Prostate cancer metastatic to multiple sites 10/04/2022 Surgical Pathology DIAGNOSIS A - Lymph node, biopsy: - Metastatic carcinoma, consistent with prostatic origin (see discussion) Solis light chain disease Gout Cardiomyopathy 09/2022: EF 27%, apical AK 12/2022: EF 48%, posterior HK 03/2023: EF 46%, posterior hk 04/2023 (at time of NTE-ACS): EF 29%, anterior HK new, apical AK new. 08/2023: EF 44%, posterior HK Retroperitoneal lymphadenopathy Hydronephrosis MEDS: Medications 09/12/23 1050 Medication Sig Taking? triamcinolone (Kenalog) 0.1 % Cream Apply topically to affected area(s) on the trunk and extremities twice daily for up to 2 weeks. Take 1 week off and then repeat cycle as needed. Yes hydrOXYzine (Atarax) 25 mg tablet Take 1 tablet by mouth nightly. Yes aspirin 81 mg chewable tablet Take 81 mg by mouth daily. Yes clopidogreL (Plavix) 75 mg tablet Take 1 tablet by mouth daily. Yes tamsulosin (Flomax) 0.4 mg capsule Take 0.4 mg by mouth daily. Yes acetaminophen (Tylenol) 325 mg tablet Take 650 mg by mouth 3 times daily. Yes levothyroxine (Synthroid) 150 mcg tablet Take 150 mcg by mouth daily. Yes HYDROcodone-acetaminophen ([place]) 5-325 mg tablet Take 1 tablet by mouth every 6 hours as needed for Pain. Yes atorvastatin (Lipitor) 40 mg tablet Take 1 tablet by mouth daily. Yes cholecalciferol (Vitamin D3) 1,000 unit tablet Take 1 tablet by mouth daily. Yes Lantus Solostar U-100 Insulin 100 unit/mL (3 mL) pen Inject 8 Units subcutaneously daily. Yes nitroGLYcerin (Nitrostat) 0.[address] 1 tablet under the tongue every 5 minutes as needed for Chest pain. Patient not taking: Reported on 09/12/2023 ALLERGY: Allergies Allergen Reactions Amoxicillin Rash Penicillin Other (See Comments) Other reaction(s): Unknown FAMILY HX: Mother had breast cancer Family History Problem Relation Age of Onset Breast Cancer Mother 73 Heart Failure Father Heart Surgery Father Diabetes Sister Cancer Paternal Uncle 55 unknown primary, suspected stomach/abdominal SOCIAL HX:-Works part-time as a [employer], lives by himself. He is here with his friend today who is a breast cancer survivor and runs a local support group. He lives in [place], [place]. 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 General: NAD Head: NCAT Eyes: Not icteric, not injected Neck: No palpable lymphadenopathy Chest: CTA Cardiac: RRR Abdomen: Soft, ND, NT, no palpable hepatosplenomegaly Extremities: 3+ RLE pitting edema, 2+ edema on the left lower extremity, non tender Skin: No rash noted Pathology: DIAGNOSIS A - Lymph node, biopsy: - Metastatic carcinoma, consistent with prostatic origin (see discussion) DISCUSSION Lymphoid tissue is not readily identified. LABS: 09/12/2023 WBC 4.7, hemoglobin 8.7, platelet count 316, ANC 2.75, BUN 34, creatinine 1.9, TB 0.4, AST24, ALT 18, alkaline phosphatase 76, total protein 7.5, albumin 2.9, 06/20/2023 sodium 134, potassium 4.9, BUN 42, creatinine 1.3, GFR of 14, calcium 8.9, TB 0.3, AST 25, ALT 30, alkaline phosphatase 81, total protein 8.1, WBC 4.98, hemoglobin 9.6, platelet count 445, ANC 2.84 to BUN 37, creatinine 1.7, calcium 8.9, AST 17, ALT 14, alkaline phosphatase 70, total protein 7.6, WBC 5.23, hemoglobin 9.8, platelet count 349, 04/11/2023 sodium 137, potassium 4.7, BUN 52, creatinine 2.1, calcium 9.1, TB 0.6, AST 20, ALT 20, alkaline phosphatase 55, total protein 6.8, albumin 3.1, PSAs pending. WBC 6.17, hemoglobin 9.4, platelet count 358, ANC 3.82. 03/21/2023 sodium 136, potassium 4.8, BUN 41, creatinine 1.7, glucose 186, calcium 9.0, TB 0.4, AST 23, ALT 31, alkaline phosphatase 56, total protein 6.4, albumin 2.9 PSA is pending. WBC 6.07, hemoglobin 9.5, platelet count 379, ANC 3.76 02/28/2023 calcium 9.6, BUN 43, creatinine 2.1, TB 0.4, alkaline phosphatase 65, sodium 138, potassium 5.5, AST 20, ALT 27, WBC 6.03, hemoglobin 10.4, platelet count 420, ANC 3.99. 02/06/23: sodium 136, potassium 3.8, AST 15, ALT 17, BUN 40, glucose 195, creatinine 1.8, calcium 9.4, albumin 3.1, TB 0.4, WBC 6.52, hemoglobin 11.4, platelet count 330, ANC 3.76 PSA testosteron 09/12/23 pending 08/04/23 132 <7.0 06/20/23 52.8 <7.0 05/16/23 29.8 <7 03/21/23 15.8 <7.0 02/28/23 28.9 <7 02/06/23 63.0 01/18/23 49.5 33 12/14/21 111 IMAGING STUDIES: 06/22/23 PET scan: IMPRESSION 1. Lymph node metastases can be seen in the neck, chest, abdomen and pelvis. In general, these lymph nodes have become larger in size. 2. Multiple skeletal metastases are present. Most of these lesions have decreased in intensity. Lesions in L2 and the left femur have resolved. There is one new focus of increased activity located in the right side of the sacrum. There was focal sclerosis in the sacrum at this site in the prior study that is now tracer avid suggesting recurrence of a metastasis. 3. Increased activity in the right side of the prostate gland is unchanged and consistent with PSMA positive malignancy. 4. New, small pericardial effusion. 05/17/2023 nuclear bone scan: Impression: Small focal areas of abnormal uptake suspicious for metastatic disease involving the upper lumbar spine, bilateral; and right anterior lateral lower rib corresponding to small sclerotic lesion seen on recent CT examination. No additional areas of abnormal uptake. 05/17/2023 CT chest abdomen pelvis: Impression: No focal infiltrate or pulmonary mass with mild scarring in both lower lobe. Subcarinaladenopathy without significant change from prior study. Bilateral hilar adenopathy as described previously. No additional mediastinal adenopathy. No pleural effusion or pneumothorax. Sclerotic lesionin the thoracic and lumbar region suspicious for metastatic disease. Bilateral ureteral stents in place. No significant hydronephrosis. Retroperitoneal adenopathy with interval improvement distal left para-aortic and proximal left iliac chain regions since prior study. Scattered sclerotic lesions suspicious for metastatic disease. 03/25/2023 echocardiogram: The calculated ejection fraction is 46%. No regional wall motion abnormality. Findings are consistent with abnormal LV relaxation. Moderate mitral regurgitation, the right ventricle wall motion is normal. The right ventricular systolic function is normal. 03/03/23 PSMA PET scan: IMPRESSION 1. PSMA positive shahida metastases in the neck, abdomen, and pelvis, markedly decreased in size compared to prior FDG PET/CT of 10/23/2022. 2. Multiple PSMA positive sclerotic osseous metastases as above. 3. PSMA positive malignancy in the posterior right lobe of prostate. 12/20/22: Echocardiogram EF= 48% 10/31/22 PET scan: IMPRESSION 1. Lymph node metastases are present in the left neck, mediastinum, and extensively in the retroperitoneum and pelvis. 2. Multiple skeletal metastases. ASSESSMENT AND PLAN: 67 y.o. M with metastatic prostate cancer as stated above. There are no obvious visceral metastases. Diagnosis: Prostate cancer with multiple metastasis to bones and lymph nodes, high risk Treatment -10/31/2022 started Lupron 22.5 mg -11/17/2022 started abiraterone 1000 mg and prednisone 5 mg a day -02/07/23 started docetaxel 75 mg/m?? every 3 weeks with Neulasta support -02/13/2023 stopped abiraterone -02/07/23 - 03/21/23 3 cycles of docetaxel Huber Keys diagnosed with de angélica metastatic prostate cancer with multiple bone and lymph nodes metastases. He was informed of of high risk metastatic prostate cancer with median survival between 4 and 5 years. He developed bilateral hydronephrosis and swelling of right leg. The patient is currently on abiraterone/prednisone Lupron. he had initial PSA response but now PSA is rising. He has comorbidities including diabetes on insulin and cardiomyopathy with decreased LVEF unclear etiology. His blood sugar is elevated. Given his diabetes and cardiomyopathy it was thought he would be a better candidate forandrogen receptor chel. He was informed of the benefits and the risks of chemotherapy with docetaxel 75 mg/m?? every 3 weeks for total of 6 cycles and darolutamide 600 mg twice daily Efficacy was based on [employer]ASENS ([id number]), a randomized, multicenter, double- blind, placebo-controlled clinical trial in 1306 patients with mHSPC. Patients were randomized to receive either darolutamide 600 mg orally twice daily plus docetaxel 75 mg/m2 intravenously administered every 3 weeks forup to 6 cycles or docetaxel plus placebo. All patients received a gonadotropin-releasing hormone analog concurrently or had a bilateral orchiectomy. The primary efficacy measure was overall survival (OS). Khrk-ju-vjpa progression was an additional efficacy measure. Median OS was not reached (NR) (95% CI: NR, NR) in the darolutamide plus docetaxelarm and 48.9 months (95% CI: 44.4, NR) in docetaxel plus placebo arm (HR 0.68; 95% CI: 0.57, 0.80; p<0.0001). Treatment with darolutamide and docetaxel resulted in a statistically significant delay in bcuu-hu-[id number] progression (HR 0.79; 95% CI: 0.66, 0.95; 1-sided p=0.006). The median age of patients was 67 years (41 to 89) and 17% were 75 years or older. Selected demographics were reported as follows: 52% White, 36% , 4% Black or , 7% /. Three percent of patients had M1a disease (spread to distant lymph nodes), 83% had M1b (spread to bones), and 14% had M1c (spread to organs). The most common adverse reactions experienced by patients (incidence ?10% with a ?2% increase over placebo with docetaxel) were constipation, decreased appetite, rash, hemorrhage, increased weight, and hypertension. The most common laboratory test abnormalities (?30%) were anemia, hyperglycemia, decreased lymphocyte count, decreased neutrophil count, increased AST, increased ALT, and hypocalcemia. The recommended darolutamide dose for [facility] is 600 mg (two 300 mg tablets) taken orally, twice daily, with food until unacceptable toxicity or disease progression. Docetaxel, 75 mg/m2 intravenously is administered every 3 weeks for up to 6 cycles. The first dose of docetaxel should be administered within 6 weeks after the start of darolutamide treatment. He again was informed of the side effects of chemotherapy which include but not limited to nausea, vomiting, fluid retention, pain, numbness and tingling in extremities, low blood counts, allergic oranaphylactic reaction, hair loss, low blood counts requiring transfusion, infection including life-threatening infection and . All questions were answered. He is interested to proceed with docetaxel and darolutamide. Will obtain new baseline PSMA PET scan 02/06/23: Huber Moya is here for chemotherapy teach. He will begin taxotere cycle #1 tomorrow (02/07/23). He continues abiraterone and predisone and lupron. We are working with his insurance for approval of the darolutamide. When the darolutamide is approved we will stop the abiraterone and prednisone. We again reviewed potential side effects of taxotere including possible infusion reaction, decreasein blood counts (decrease in white blood cells, red blood cells and platelets, resulting in increased risk of infection, anemia and bleeding), hair thinning or loss, fatigue, peripheral neuropathy (pain, numbness or tingling in fingers and toes), rash, swelling in arms and legs, mouth sores, diarrhea, nausea and vomiting, nail changes, and mild joint and muscle pain or cramps. 02/28/23 Mr. North is tolerated first cycle of docetaxel reasonably well with bony pain responded to Claritin, mild fatigue and hair loss. Labs were reviewed. Will proceed with cycle 2 today. He stopped abiraterone. We recommended to stop prednisone as well. 03/21/2023 Mr. Keys developed swelling of right leg started several weeks ago. He has more difficulties to ambulate. Mild increase in shortness of breath. Has gained about 15 pounds since November 2022. Otherwise, he tolerated second cycle reasonably well. Will obtain right lower extremity ultrasound to rule out DVT. I will reduce dose of docetaxel to 60mg/m??. I will give him a furosemide 20 mg daily as needed Will check echocardiogram given his cardiomyopathy. 04/11/23 last PSA is 15, going down. Huber complains on more swelling tightness in his right leg, he feels more dyspneic. Complains of intermittent pain in the left shoulder. No improvement in dyspnea or leg swelling on furosemide 40 mg a day but felt dizzy at this morning. His weight is 6-7 poundsup compared to baseline. Echocardiogram did not show any significant changes seen in the LVEF. I think he has fluid retention related to docetaxel. I recommended to discontinue docetaxel. Given his low blood pressure, worsening of kidney function and dizziness I want to stop furosemide. He canresume darolutamide at reduced dose of 300 mg twice daily starting tomorrow. Will obtain new baseline CT chest abdomen pelvis and bone scan. I will see him back in about 3 weeks 05/23/2023 Mr. Keys developed MN and underwent to cardiac catheterization with total of 4 stentsplaced. He is going through cardiac rehab now. Is difficult to compare conditional CT and bone scan to PSMA PET scan but I see some residual metastatic evident lesion on the bone scan and stable lymphadenopathy with some improvement in pelvic lymph nodes on CT scan. No new metastatic disease. PSA 29.8 up from 15 last visit. Will continue Lupron. Given that potential cardiovascular risk of darolutamide I will discontinue Nubeqa. PSMA PET scan demonstrated enlarging avid lymph nodes in the chest, abdomen and pelvis. There is a new bone lesion. PSA is 52.29 last visit. Clinical and radiographic pictures consistent with progression of metastatic disease, now just at the existent. We discussed the benefits and the risks of different options including second line chemotherapy versus Pluvicto versus preventative care. Discussed benefits and risks of Pluvicto treatment On May 26, 2021, the FDA approved Pluvicto (active ingredient lutetium Kate 177 vipivotide tetraxetan) for the treatment of adult patients with prostate- specific membrane antigen-positive metastatic castration-resistant prostate cancer who have been treated with androgen receptor pathway inhibitionand taxane-based chemotherapy. Patients with previously treated metastatic castration-resistant prostate cancer should be selectedfor treatment with Pluvicto using Locametz or another approved prostate-specific membrane antigen-11 imaging agent based on prostate-specific membrane antigen expression in tumors. Prostate-specific membrane antigen- positive metastatic castration-resistant prostate cancer was defined as having at least one tumor lesion with gallium Ga 68 gozetotide uptake greater than normal liver. Patients were excluded from enrollment if any lesions exceeding certain size criteria in the short axis had uptakeless than or equal to uptake in normal liver. Efficacy was evaluated in VISION, a randomized 2:1, multicenter, open-label trial that evaluated Pluvicto plus best standard of care or best standard of care alone in men with progressive, prostate-specific membrane antigen-positive metastatic castration-resistant prostate cancer. All patients received a gonadotropin releasing hormone analog or had prior bilateral orchiectomy. Patients were required to have received at least one androgen receptor pathway inhibitor, and 1 or 2 prior taxane-basedchemotherapy regimens. The trial demonstrated a statistically significant improvement in the primary endpoints of overall survival and radiographic progression-free survival. Hazard ratio for overall survival was 0.62 for the comparison of Pluvicto plus best standard of care versus best standard of care. Median overall survival was 15.3 months in the Pluvicto plus best standard of care arm and 11.3 months in the best standard of care arm, respectively. Interpretation of the magnitude of the radiographic progression-free survival effect was limited due to a high degree of censoring from early drop out in the controlarm. The most common adverse reactions reported in more than 20% of patients receiving Pluvicto were fatigue, dry mouth, nausea, anemia, decreased appetite, and constipation. The most common laboratory abnormalities that worsened from baseline in more than 30% of patients receiving Pluvicto were decreased lymphocytes, decreased hemoglobin, decreased leukocytes, decreased platelets, decreased calcium, and decreased sodium. Treatment with Pluvicto may result in risk from radiation exposure, myelosuppression, and renal toxicity. The safety follow-up duration in VISION was not sufficient to capture late radiation- associated toxicities. I think it would be the safest option in regards to cardiomyopathy/MN/congestive heart failure. All questions were answered to patient satisfaction. He is interested to proceed to Pluvicto. He would like to start an antibiotic surgery on due to his travel plans and his daughter wedding. 09/12/23 Huber had second opinion from Dr. Shetty at [facility]. Pluvicto was Pluvicto was recommended. He received first treatment on August 17 and tolerated it well with mild fatigue for few days. His hemoglobin is 8.7, slightly down, but it is not low enough to warrant transfusion, so we will monitor. Continue Pluvicto. Will see him back in 6 weeks with blood work. Plan to arrange transfusion for hemoglobin less than 8.1. Continue leuprolide 22.5 mg every 3 months # Anemia: Hemoglobin 8.7 today. Will monitor. If hemoglobin goes below 8.1 we will arrange transfusion. Will monitor every 6 weeks. # Germline and somatic mutation testing: No drug Mentation today with has been referred to familial cancer program, will do 170 gene panel testing and MMR testing # Cardiomyopathy had MN on April 12, 2023, underwent two PCIs with 4 stent placement : Follows with Dr. Rudolph #Port placement: per patient request. Referral sent to [facility] which is more convenient for [place]. #CKD: Creatinine is 1.9, stable Had bilateral stent placed. Next ureteral stent replacement p in July 2023. Chronic, creatinine is elevated at 1.8 which is overall stable. Follows with PCP. Plan: Continue Pluvicto Next visit with COLD SAW OPERATOR with CBC, CMP, PSA,in 5-6 weeks Stand alone Lupron 22.5 mg November 20. Visit with MD with CBC, CMP, PSA, testosterone on December 04 THOMAS BRANCH MD All questions were answered and patient verbalized understanding and no further questions. This encounter was primarily counseling-based (>50 % of total time) with total time of 35 minutes, of which 25 minutes was spent with the patient/family discussing: * Diagnostic/test results and/or recommendations for additional diagnostic or confirmatory studies; * Prognosis - related of the diagnosis/stage of the disease and course of treatment; * Risks and benefits of pertinent management and treatment options; * Instructions for disease management and the importance of compliance with recommended treatment; * Risk factor reduction, including additional screening and/or surveillance studies, as well as recommended lifestyle modifications; * Patient and family education, answering questions/concerns. documented in this encounter Plan of Treatment Upcoming Encounters Date Type Department Care Team (Late st Contact Info) Description 10/16/2023 2:30 PM EDT Office Visit Hematology/Oncology at [address] [phone] Fiordaliza Downing APRN [facility] [place] [address] 11/10/2023 9:00 AM EDT Appointment [place] [phone] Thomas Branch MD [facility] HEMATOLOGY [place] [address] 11/21/2023 11:00 AM EDT Infusion Hematology Oncology at [address] [phone] 12/05/2023 1:30 PM EDT Office Visit Hematology/Oncology at [address] [phone] Thomas Branch MD [facility] HEMATOLOGY [place] [address] Fiordaliza Downing APRN [facility] [place] [address] 12/26/2023 9:00 AM EDT Appointment [place] [phone] Thomas Branch MD [facility] HEMATOLOGY [place] [address] 02/09/2024 8:00 AM EST Appointment [place] [phone] Thomas Branch MD [facility] HEMATOLOGY [place] [address] 03/18/2024 3:00 PM EST Office Visit Cardiology at [address] [phone] Sameer Rudolph MD [facility] [place] [address] 03/22/2024 9:00 AM EST Appointment [place] [address] Thomas Branch MD [facility] HEMATOLOGY [place] [address] 08/23/2024 Hospital Encounter [place] [address] True Juarez MD [facility] [place] [address] Scheduled Procedures Name Priority Associated Diagnoses Date/Ti [...] Procedure Name Priority Date/Time Associated Diagnosis Comments CBC (WITH DIFF) Routine 09/12/2023 COMPREHENSIVE METABOLIC PANEL Routine 09/12/2023 documented in this encounter Results * Comprehensive metabolic panel (non-fasting) (09/12/2023) Glucose 152 Blood Urea Nitrogen 34 Creatinine 1.9 Albumin 2.9 Blood 09/12/2023 Historical Provider CHEMISTRY ORDERAB LES * CBC (with Diff) (09/12/2023) White Blood Cell 4.7 Hemoglobin 8.7 Hematocrit 26.3 Platelet 316 ANC 2.75 Blood 09/12/2023 Historical Provider HEMATOLOGY ORDERA BLES documented in this encounter Visit Diagnoses Diagnosis Prostate cancer metastatic to multiple sites Malignant neoplasm of prostate High risk medication use Encounter for long-term (current) use of other medications Androgen deprivation therapy Encounter for therapeutic drug monitoring documented in this encounter Care Teams Sack Lifter Relationship Specialty Start Date End Date Nicolasa Valenzuela PA [address] [place] [address] PCP - General Family Medicine 12/20/21 documented as of this encounter
--- OUTSIDE RECORDS SUMMARY | 2023-10-16 03:09 | XMS_ITS | Encounter Summary ---
Author Organization [facility] Address [facility] [place] [address] Care Team Providers Care Senior Java Ui Developer Name Role Phone Nicolasa Valenzuela Primary Care Pro vider Encounter Details Date Type Department Care Team (Late st Contact Info) Description 08/29/2023 Telephone Cardiology at [address] [place] [phone] Sameer Rudolph MD [facility] [place] [address] Social History Tobacco Use Types Packs/Day Years Used Date Smoking Tobacco: Never Smokeless Tobacco: Never Alcohol Use Standard Drinks/Week Comments Yes 0 (1 standard drink = 0.6 oz pur e alcohol) rare [facility] Utilities Answer Date Recorded In the past 12 months has [employer], gas, oil, or water [employer] threatened to shut off services in your [...] to sleep or slept in a senior care (including now)? No 04/14/2023 DH IPV Inpatient [...] encounter Miscellaneous Notes * Telephone Encounter - Edwige Monterroso - 08/29/2023 1:11 PM EDT Citlalli from [facility] called and LM on 08/29/23 @ 12:09 p.m.. She said patient needsmedical clearance for an upcoming dental cleaning. I returned her call @ 1:10 p.m. on 08/29/23 and Itold her that patient has an appt. W/ Dr. Rudolph, 09/04/23 @ 3:00 p.m. I added a note to his appt. regarding needing the cardiac clearance. Citlalli can be reached @ [phone]. documented in this encounter Plan of Treatment Upcoming Encounters Date Type Department Care Team (Late st Contact Info) Description 10/16/2023 2:30 PM EDT Office Visit Hematology/Oncology at [address] [phone] Fiordaliza Downing APRN [facility] [place] [address] 11/10/2023 9:00 AM EDT Appointment [place] [phone] Thomas Curtis MD [facility] [place] [address] 11/21/2023 11:00 AM EDT Infusion Hematology Oncology at [address] [phone] 12/05/2023 1:30 PM EDT Office Visit Hematology/Oncology at [address] [phone] Thomas Curtis MD [facility] [place] [address] Fiordaliza Downing APRN [facility] [place] [address] 12/26/2023 9:00 AM EDT Appointment [place] [phone] Thomas Curtis MD [facility] [place] [address] 02/09/2024 8:00 AM EST Appointment [place] [phone] Thomas Curtis MD [facility] [place] [address] 03/18/2024 3:00 PM EST Office Visit Cardiology at [address] [place] [phone] Sameer Rudolph MD [facility] [place] [address] 03/22/2024 9:00 AM EST Appointment [place] [address] Thomas Curtis MD [facility] [place] [address] 08/23/2024 Hospital Encounter [place] [phone] True Juarez MD [facility] [place] [address] Scheduled Procedures Name Priority Associated Diagnoses Date/Ti [...] Understanding Patient Facing Action Plan Christy Bravo, [facility] Note: The patient? s goal is to continue positive results of oral chemotherapy by maintaining improved labs (PSA) or stable scans in clinic for the upcoming year. documented as of this encounter Visit Diagnoses Not on filedocumented in this encounter Care Teams Senior Java Ui Developer Relationship Specialty Start Date End Date Nicolasa Valenzuela PA [address] [place] [address] PCP - General Family Medicine 12/20/21 documented as of this encounter
--- OUTSIDE RECORDS SUMMARY | 2023-10-16 03:09 | XMS_ITS | Encounter Summary ---
Author Organization Pending [facility] Address [facility] [place] [address] Care Team Providers Care Compressed Gases Tester Name Role Phone Nicolasa Valenzuela Primary Care Pro vider Reason for Visit * Reason Onset Date Comments Shortness of Breath 10/07/2023 Encounter Details Date Type Department Care Team (Late st Contact Info) Description 10/07/2023 Telephone Cardiology at [address] [place] [address] Sameer Rudolph MD [facility] [place] [address] Shortness of Breath Social History Tobacco Use Types Packs/Day Years Used Date Smoking Tobacco: Never Smokeless Tobacco: Never Alcohol Use Standard Drinks/Week Comments Yes 0 (1 standard drink = 0.6 oz pur e alcohol) rare [facility] Utilities Answer Date Recorded In the past 12 months has [facility], gas, oil, or water [employer] threatened to shut off services in your home? No 04/14/2023 Overall Financial Resource Strain (CARDIA) Jollye r Date Recorded How hard is it [...] place to sleep or slept in a detention (including now)? No 04/14/2023 DH IPV Inpatient [...] Telephone Encounter - Roxi Burleson RN - 10/07/2023 1:10 PM EDT Call back made to Griffin Cappssavana who left a on October 05 regarding symptoms he feels he needs to inform Dr. Rudolph of, per PCP suggestion. Griffin reports he has been out of breath walking uphill and on stairs, which has previously been shared with Dr. Rudolph and this will happen. Now he notices when he first stands for a seated position, he loses his breath. It lasts very briefly. He admits to feeling slightly dizzy and weak during the first minute standing. Griffin has compared his blood pressure 114/68 sitting 75/53 standing Observation and comments: Orthostatic BP changes are somewhat normal, his are a greater drop than he can tolerate without symptoms. Recommendation to minimize the sensations and decrease chance of injury due to falling: Plan your stand from sit movement Hand on to a study surface to stabilize self once upright Take as long as needed to take a breath, move legs (march in place) once or twice, then gradually start to walk away This will be forwarded on to when he returns to clinic on October 08. documented in this encounter Plan of Treatment Upcoming Encounters Date Type Department Care Team (Late st Contact Info) Description 10/16/2023 2:30 PM EDT Office Visit Hematology/Oncology at [address] [phone] Fiordaliza Downing APRN [facility] [address] 11/10/2023 9:00 AM EDT Appointment [place] [address] Thomas Curtis MD [facility] [place] [address] 11/21/2023 11:00 AM EDT Infusion Hematology Oncology at [address] [phone] 12/05/2023 1:30 PM EDT Office Visit Hematology/Oncology at [address] [phone] Thomas Curtis MD [facility] [place] [address] Fiordaliza Downing APRN [facility] [place] [address] 12/26/2023 9:00 AM EDT Appointment [place] [phone] Thomas Curtis MD [facility] [place] [address] 02/09/2024 8:00 AM EST Appointment Nuclear Medicine at [place] [phone] Thomas Curtis MD [facility] [place] [address] 03/18/2024 3:00 PM EST Office Visit Cardiology at [address] [phone] Sameer Rudolph MD [facility] [place] [address] 03/22/2024 9:00 AM EST Appointment Nuclear Medicine at [place] [phone] Thomas Curtis MD [facility] [place] [address] 08/23/2024 Hospital Encounter [place] [phone] True Juarez MD [facility] [address] Scheduled Procedures Name Priority Associated Diagnoses Date/Ti [...] Understanding Patient Facing Action Plan Christy Bravo, RPH Note: The patient? s goal is to continue positive results of oral chemotherapy by maintaining improved labs (PSA) or stable scans in clinic for the upcoming year. documented as of this encounter Visit Diagnoses Not on filedocumented in this encounter Care Teams Compressed Gases Tester Relationship Specialty Start Date End Date Nicolasa Valenzuela PA [address] [place] [address] PCP - General Family Medicine 12/20/21 documented as of this encounter
--- OUTSIDE RECORDS SUMMARY | 2023-10-16 03:09 | XMS_ITS | Encounter Summary ---
Author Organization [facility] Address [facility] [place] [address] Care Team Providers Care Retail Loan Officer Name Role Phone Nicolasa Valenzuela Primary Care Pro vider Encounter Details Date Type Department Care Team (Latest Contact Info) Description 09/04/2023 Travel Social History Tobacco Use Types Packs/Day Years Used Date Smoking Tobacco: Never Smokeless Tobacco: Never Alcohol Use Standard Drinks/Week Comments Yes 0 (1 standard drink = 0.6 oz pur e alcohol) rare [facility] Utilities Answer Date Recorded In [...] 2:30 PM EDT Office Visit Hematology/Oncology at [address] [phone] Fiordaliza Downing APRN [facility] [place] [address] 11/10/2023 9:00 AM EDT Appointment [place] [address] Thomas Curtis MD [facility] [place] [address] 11/21/2023 11:00 AM EDT Infusion Hematology Oncology at [address] [phone] 12/05/2023 1:30 PM EDT Office Visit Hematology/Oncology at [address] [phone] Thomas Curtis MD [facility] [place] [address] Fiordaliza Downing APRN [facility] [place] [address] 12/26/2023 9:00 AM EDT Appointment Nuclear Medicine at [place] [phone] Thomas Curtis MD [facility] [place] [address] 02/09/2024 8:00 AM EST Appointment Nuclear Medicine at [place] [phone] Thomas Curtis MD [facility] [place] [address] 03/18/2024 3:00 PM EST Office Visit Cardiology at [address] [phone] Sameer Rudolph MD [facility] [place] [address] 03/22/2024 9:00 AM EST Appointment Nuclear Medicine at [place] [phone] Thomas Curtis MD [facility] [place] [address] 08/23/2024 Hospital Encounter [place] [address] True Juarez MD [facility] [place] [address] Scheduled Procedures Name Priority Associated Diagnoses Date/Ti [...] Understanding Patient Facing Action Plan Christy Bravo, [facility] Note: The patient? s goal is to continue positive results of oral chemotherapy by maintaining improved labs (PSA) or stable scans in clinic for the upcoming year. documented as of this encounter Visit Diagnoses Not on filedocumented in this encounter Care Teams Retail Loan Officer Relationship Specialty Start Date End Date Nicolasa Valenzuela PA [address] [place] [address] PCP - General Family Medicine 12/20/21 documented as of this encounter
--- OUTSIDE RECORDS SUMMARY | 2023-10-16 03:09 | XMS_ITS ---
Author Organization [facility] Address [facility] [place] [address] Care Team Providers Care Diver Tender Name Role Phone Nicolasa Valenzuela Primary Care Pro vider Active Problems Problem Noted Date Diagnosed Date Swelling of lower leg 06/01/2023 Overview (06/01/2023): negative DVT studiesleft Mitral valve insufficiency 06/01/2023 Overview (06/01/2023): moderate CKD (chronic kidney disease) 06/01/2023 Congestive heart failure 06/01/2023 Adenoma of colon 06/01/2023 ASCVD (arteriosclerotic cardiovascular disease) 04/25/2023 Overview (06/08/2023): Cardiac Catheterization: (04/2023) RIGHT dominance Indication: NSTE-ACS LVEDP 25 Artery Lesion Intervention LM Distal 80 POBA LAD Os 95 Mid 70 Distal 80 D1: os 70 3.5 x 26 Phoenix 3.0 x 30 Hebert 2.5 x 18 [place] LCx Os PHYSICIAN NEONATOLOGY 3.0 x 34 Hebert RCA PDA: Os 70 NB: Intervened on a different day than diagnostic cath whilst evaluated for CABG (not a candidate). AD/Cx intervention as mini-crush into LM). mLAD and dLAD interventions were lithotripsy, and performed on another day. Assessment & Plan (09/04/2023 3:36 PM EDT): No angina per history. Excellent angiographic and symptomatic response. - Anti-Thrombosis: asa 81, plavix 75 - Anti- Lipemic: lipitor 40 - Anti- Anginals: GTN PRN Assessment & Plan (06/08/2023 2:24 PM EDT): No angina per history. Excellent angiographic and symptomatic response. - Anti-Thrombosis: asa 81, plavix 75 - Anti- Lipemic: lipitor 40 - Anti- Anginals: GTN PRN Assessment & Plan (04/25/2023 9:45 AM EST): No angina per history. 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 08/2023: EF 44%, posterior HK Assessment & Plan (09/04/2023 3:37 PM EDT): No failure by history nor exam. - Diuresis: none - Cardioprotection: not strictly indicated as EF> 40% Assessment & Plan (06/08/2023 2:28 PM EDT): No failure by history nor exam. I posit, based on symptomatic improvement, that the EF has similarly recovered to a significant extent. Will thus also hold off on providing cardioprotection, as he is known to have softer BPs. The CDM was likely caused by the NSTE-ACS; I do not think the prostate regimen caused nor contributed to the EF decrease. I do not think holding off on optimal oncologic therapy is indicated assuming the EF has increased to a significant extent (> 35%). If it has not, then will try to start some degree of cardioprotection and would advise against an anti-androgen - Diuresis: none - Cardioprotection: - Beta Blockade: limited by HR - RAASi: limited by BP - MC Blockade: will defer - SGLT2i: will defer for now - Devices: pending TTE Assessment & Plan (04/25/2023 10:06 AM EST): No failure by history nor exam. Will plan to repeat TTE in early July - Diuresis: non - Cardioprotection: - Beta Blockade: limited by HR - RAASi: limited by BP - MC Blockade: will defer - SGLT2i: will defer for now - Devices: did not review in context of metastatic prostate CA - Dx: TTE (early 07/2023) Assessment & Plan (11/10/2022 9:12 AM EDT): Patient's symptoms have improved substantially since hospital admission with hydronephrosis/post renal WALTER. It has been put forth that his CDM is due to CAD; while he does have CAD by virtue of coronary calcium, I would not expect such a substantial improvement in symptoms in this short amount of time, as he did not receive reperfusion nor cardioprotection since. His presentation was one of renal failure, not heart failure. Taken together, I think the most likely diagnosis is takotsubo. Before starting empiric cardioprotection and pursuing ischemic evaluation, I think the most effective way to confirm/refute this hypothesis would be a TTE. Retroperitoneal lymphadenopathy 2022 Hydronephrosis 2022 Current Oncology Plans Leuprolide (Lupron Depot) injection ([facility], [facility], ST[facility], [facility], [facility], [place], [facility])* Plan Start Date:10/31/2022 Plan Provider:Nabor Byrne MD Linked Problems Prostate cancer metastatic t o multiple sites Treatment Medications No medications scheduled. Past Plans ADULT TREATMENT Plan Name Start Date Discontinue Date Treatment Medications Discontinue Reason Plan Provider Cycles BCN AMB ONC -PROSTATE CANCER - DOCEtaxeL 04/11/2023 DOCEtaxeL (Taxotere) in sodium chloride 0.9% 250 mL infusionDOCEtaxeL (Taxotere) Solution Not Tolerated Thomas Curtis MD 3 of 6 cycles started Radiation Treatments * No radiation treatments are documented for this patient in [facility]. Treatments may have been administered in another system. Resolved Problems Problem Noted Date Diagnosed Date Resolved Date CAD (coronary artery disease) 05/02/2023 06/01/2023 NSTEMI (non-ST elevated myoc ardial infarction) 04/13/2023 04/25/2023 High risk medication use 03/01/2023 Foot pain 10/21/2022 04/25/2023 H/O inguinal hernia repair 10/21/2022 0 10/21/2022 History of cataract surgery 10/21/2022 10/21/2022 Onychomycosis 10/21/2022 04/25/2023 WALTER (acute kidney injury) 2022 Pleural effusion, bilateral 2022 04/25/2023 Bilateral lower extremity edema 2022 04/25/2023 Status post cervical spinal fusion 03/17/2022 10/21/2022
--- OUTSIDE RECORDS SUMMARY | 2023-10-16 03:09 | XMS_ITS | Encounter Summary ---
Author Organization [facility] Address [facility] [place] [address] Care Team Providers Care Certified Ophthalmic Assistant Name Role Phone Nicolasa Valenzuela Primary Care Pro vider Reason for Visit * Reason Comments Injections Lupron * Treatment/Therapy Plan Authorization (Routine) - Authorized Specialty Diagnoses / Procedures Referred By Toño t Referred To Contact Hematology and Oncology Diagnoses Prostate cancer metastatic to multiple sites Procedures TC LEUPROLIDE ACETATE 7.5MG, FOR DEPOST SUSPENSION (LUPRON DEPOT) [id number] LUPRON DEPOT Nabor Byrne MD [facility] HEMATOLOGY [place] [address] Nabor Byrne MD [facility] HEMATOLOGY [place] [address] Referral ID Status Reason Start Date Expiration Date V isits Requested Visits Authorized [id number] Authorized 03/06/2022 01/31/2024 99 99 Encounter Details Date Type Department Care Team (Late st Contact Info) Description 08/24/2023 2:30 PM EDT Infusion Hematology Oncology at [address] [phone] Prostate cancer metastatic to multiple sites Social History Tobacco Use Types Packs/Day Years [...] place to sleep or slept in a care home (including now)? No 04/14/2023 DH IPV [...] Sign Reading Time Taken Comments Blood Pressure 125/60 08/24/2023 2:39 PM EDT Pulse 79 08/24/2023 2:39 PM EDT Temperature 36.2 ??C (97.1 ??F) 08/24/2023 2:39 PM ED T Respiratory Rate 18 08/24/2023 2:39 PM EDT Oxygen Saturation 100% 08/24/2023 2:39 PM EDT Inhaled Oxygen Concentration - - Weight 81.2 kg (179 lb) 08/24/2023 2:39 PM EDT Height - - Body Mass Index 25.68 08/23/2023 11:07 AM EDT documented in this encounter Progress Notes * Almaz Hidalgo RN - 08/24/2023 2:30 PM EDT Infusion Note Diagnosis:Prostate Cancer Treatment: Lupron Injection Lupron injected in right buttocks Patient instructed on side effects of Lupron. Patient states understanding of teaching, Patient aware to call clinic with any questions or concerns. Plan: Return to clinic as scheduled. documented in this encounter Plan of Treatment Upcoming Encounters Date Type Department Care Team (Late st Contact Info) Description 10/16/2023 2:30 PM EDT Office Visit Hematology/Oncology at [address] [phone] Fiordaliza Downing APRN [facility] [place] [address] 11/10/2023 9:00 AM EDT Appointment [place] [address] Thomas Curtis MD [facility] HEMATOLOGY [place] [address] 11/21/2023 11:00 AM EDT Infusion Hematology Oncology at [address] [phone] 12/05/2023 1:30 PM EDT Office Visit Hematology/Oncology at [address] [phone] Thomas Curtis MD [facility] HEMATOLOGY [place] [address] Fiordaliza Downing APRN [facility] [place] [address] 12/26/2023 9:00 AM EDT Appointment Nuclear Medicine at [place] [phone] Thomas Curtis MD [facility] HEMATOLOGY [place] [address] 02/09/2024 8:00 AM EST Appointment [place] [phone] Thomas Curtis MD [facility] HEMATOLOGY [place] [address] 03/18/2024 3:00 PM EST Office Visit Cardiology at [address] [phone] Sameer Rudolph MD [facility] [address] 03/22/2024 9:00 AM EST Appointment Nuclear Medicine at [place] [phone] Thomas Curtis MD [facility] HEMATOLOGY [place] [address] 08/23/2024 Hospital Encounter Main Operating Room [place] [phone] True Juarez MD [facility] [address] Scheduled Procedures Name Priority Associated Diagnoses Date/Ti [...] Understanding Patient Facing Action Plan Christy Bravo, [facility] Note: The patient? s goal is to continue positive results of oral chemotherapy by maintaining improved labs (PSA) or stable scans in clinic for the upcoming year. documented as of this encounter Visit Diagnoses Diagnosis Prostate cancer metastatic to multiple sites Malignant neoplasm of prostate documented in this encounter Administered Medications Inactive Administered Medications - up to 3 most recent administrations Medication Order MAR Action Action Date Dose Rate Site leuprolide (Lupron Depot) 22.5 mg (3 month) intramuscular syringe kit 22.5 mg 22.5 mg, Intramuscular, ONCE, 1 dose, On Emely 08/24/23 at 1500, Last injection site was... leuprolide IM injection site: L Gluteal (01/31/2023 4:42 PM), Routine, This agent is restricted to outpatient use. Is this drug being given as an outpatient? Yes Given 08/24/2023 2:53 PM EDT 22.5 mg Right Gluteal documented in this encounter Care Teams Certified Ophthalmic Assistant Relationship Specialty Start Date End Date Nicolasa Valenzuela PA [address] [place] [address] PCP - General Family Medicine 12/20/21 documented as of this encounter
--- OUTSIDE RECORDS SUMMARY | 2023-10-16 03:09 | XMS_ITS | Clinical Summary ---
Author Organization [facility] Address [facility] [place] [address] Care Team Providers Care Parts Classifier Name Role Phone Nicolasa Valenzuela Primary Care Pro vider Allergies Active Allergy Reactions Criticality Noted Date Comments Amoxicillin Rash Medium 11/16/2021 Penicillin Other (See Comments) Medium 09/08/2021 Other reaction(s): Unknown Medications Medication Sig Dispensed Refills Start Date End Date Status atorvastatin (Lipitor) 40 mg tablet Take 1 tablet by mouth daily. 30 tablet 3 10/03/2022 Active cholecalciferol (Vitamin D3) 1,000 unit tablet Take 1 tablet by mouth daily. 90 tablet 3 10/04/2022 Active Lantus Solostar U-100 Insulin 100 unit/mL (3 mL) pen Inject 8 Units subcutaneously daily. 10 mL 12 10/03/2022 Active HYDROcodone-aceta minophen (Cadiz) 5-325 mg tablet Take 1 tablet by mouth every 6 hours as needed for Pain. Active levothyroxine (Synthroid) 150 mcg tablet Take 150 mcg by mouth daily. Active tamsulosin (Flomax) 0.4 mg capsule Take 0.4 mg by mouth daily. Active acetaminophen (Tylenol) 325 mg tablet Take 650 mg by mouth 3 times daily. Active aspirin 81 mg chewable tablet Take 81 mg by mouth daily. 30 tablet 3 04/20/2023 Active clopidogreL (Plavix) 75 mg tablet Take 1 tablet by mouth daily. 90 tablet 3 04/20/2023 Active nitroGLYcerin (Nitrostat) 0.[address] 1 tablet under the tongue every 5 minutes as needed for Chest pain. 90 tablet 12 04/19/2023 Active Additional Information Patient not taking.Reported on 09/12/2023 triamcinolone (Kenalog) 0.1 % CreamIndications: Acute urticaria Apply topically to affected area(s) on the trunk and extremities twice daily for up to 2 weeks. Take 1 week off and then repeat cycle as needed. 453.6 g 09/05/2023 Active hydrOXYzine (Atarax) 25 mg tabletIndications :Acute urticaria Take 1 tablet by mouth nightly. 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 Retroperitoneal lymphadenopathy 2022 Hydronephrosis 2022 Resolved Problems Problem Noted Date Diagnosed Date [...] Status post cervical spinal fusion 03/17/2022 10/21/2022 Encounters Date Type Department Care Team Description 10/11/2023 Telephone Cardiology at [address] [phone] Sameer Rudolph MD 10/07/2023 Telephone Cardiology at [address] [phone] Sameer Rudolph MD Shortness of Breath 09/29/2023 8:56 AM EDT - 09/29/2023 11:59 PM EDT Hospital [place] [address] Thomas Curtis MD Prostate cancer Discharge Disposition: Home 09/29/2023 Travel 2023 Telephone Dermatology at [facility] [address] [place] [address] Kasia Pineda MA Prior Authorization (hydrOXYzine (Atarax) 25 mg tablet) 2023 Telephone Dermatology at [facility] [address] [place] [address] Sidney Lee MD 09/27/2023 1:00 PM EDT Office Visit Dermatology at [facility] [address] [place] [address] Sidney Lee MD Acute urticaria 09/27/2023 12:20 PM EDT Laboratory Appointment Lab at [facility] [address] [place] [address] Prostate cancer 09/27/2023 12:05 PM EDT Laboratory Appointment Lab at [address] [place] [address] 09/27/2023 Telephone Hematology/Oncolo gy at [address] [phone] Pooja Joshua RN Dizziness 09/27/2023 Travel 09/12/2023 10:30 AM EDT Office Visit Hematology/Oncolo gy at [address] [phone] Thomas Curtis MD Burns, Kimberly A, APRN Prostate cancer metastatic to multiple sites; High risk medication use; Androgen deprivation therapy 09/12/2023 Telephone Hematology/Oncolo gy at [address] [phone] Radha Carmen RN 09/12/2023 Travel 09/08/2023 Telephone Dermatology at [facility] [address] [place] [address] Sidney Lee MD 09/06/2023 Telephone Dermatology at [facility] [address] [place] [address] Laureano Arguello LNA Prior Authorization (hydrOXYzine Pamoate 25MG capsules) 09/05/2023 3:40 PM EDT Office Visit Dermatology at [place] [address] [place] [address] Sidney Lee MD Acute urticaria 09/04/2023 3:00 PM EDT Office Visit Cardiology at [address] [phone] Sameer Rudolph MD Cardiomyopathy, unspecified type; ASCVD (arteriosclerotic cardiovascular disease) 09/04/2023 Travel 08/29/2023 Telephone Cardiology at [address] [phone] Sameer Rudolph MD 08/24/2023 2:30 PM EDT Infusion Hematology Oncology at [address] [phone] Prostate cancer metastatic to multiple sites 08/24/2023 Travel 08/23/2023 12:00 PM EDT Anesthesia Event [place] [address] Matty Helm MD Underhill, Brynne, APRN 08/23/2023 11:31 AM EDT - 08/23/2023 1:11 PM EDT Surgery [place] [address] True Juarez MD CYSTO, STENT PLACEMENT (WRVU 2.82) 08/23/2023 9:36 AM EDT - 08/23/2023 2:17 PM EDT Hospital Encounter Same Day Program at [place] [phone] True Juarez MD Hydronephrosis with ureteral stricture, not elsewhere classified Discharge Disposition: Home 08/23/2023 Telephone Hematology/Oncolo gy at [address] [phone] Elisha Montoya 08/21/2023 [place] [address] Yokasta Trinidad RN 08/21/2023 [place] [address] Carole Avalos MD 08/18/2023 8:21 AM EDT - 08/18/2023 11:59 PM EDT Hospital En[place] [address] Thomas Curtis MD Prostate cancer Discharge Disposition: Home 08/18/2023 8:15 AM EDT Laboratory Appointment Lab [address] [place] [address] Hydronephrosis with ureteral stricture, not elsewhere classified 08/18/2023 Telephone Hematology/Oncolo gy at [address] [phone] Alexsandra Maurice, RN Appointment 08/18/2023 Orders Only Hematology [place] [phone] Thomas Curtis MD 08/18/2023 Travel 08/17/2023 [place] [address] Naye Ohara RN 08/15/2023 8:00 AM EDT TH Visit (TeleHealth) Hematology [place] [address] Enmanuel Moralez, [facility] Prostate cancer metastatic to multiple sites 08/09/2023 Travel 08/08/2023 Orders Only Hematology/Oncolo gy at [address] [phone] Thomas Curtis MD 08/07/2023 4:40 PM EDT Ext Surgery or Single Event [facility] [address] [facility] [place] [address] Sameer Rudolph MD ASCVD (arteriosclerotic cardiovascular disease); Cardiomyopathy, unspecified type 08/07/2023 Telephone Cardiology at [place] [address] [facility] [place] [address] Sameer Rudolph MD Results 08/07/2023 Telephone Hematology/Oncolo gy at [address] [phone] Cara Pham RN Labs Only (Lab tracking) 08/03/2023 Telephone Hematology/Oncolo gy at [address] [phone] Cara Pham, SHIVAM Other (Labs for pluvicto) from Last 3 Months Family History Medical History Relation Comments Heart Failure Father Heart Surgery Father Breast Cancer Mother Cancer Paternal Uncle unknown primary, suspected stomach/abdominal Diabetes Sister Relation Status Comments Father Mother Paternal Uncle Sister Social History Tobacco Use Types Packs/Day Years Used Date Smoking Tobacco: Never Smokeless Tobacco: Never Tobacco Cessation:Counseling Given: Not Answered Alcohol Use Standard Drinks/Week Comments Yes 0 (1 standard drink = 0.6 oz pur e alcohol) rare [facility] Utilities Answer Date Recorded [...] on file Sexual Orientation Not on file Last Filed Vital Signs Vital Sign Reading [...] Mass Index 25.28 09/12/2023 10:47 AM EDT Plan of Treatment Upcoming Encounters Date Type Department Care Team (Late st Contact Info) Description 10/16/2023 2:30 PM EDT Office Visit Hematology/Oncology at [address] [phone] Fiordaliza Downing APRN [facility] [place] [address] 11/10/2023 9:00 AM EDT Appointment [place] [address] Thomas Curtis MD [facility] [place] [address] 11/21/2023 11:00 AM EDT Infusion Hematology Oncology at [address] [phone] 12/05/2023 1:30 PM EDT Office Visit Hematology/Oncology at [address] [phone] Thomas Curtis MD [facility] [place] [address] Fiordaliza Downing APRN [facility] [place] [address] 12/26/2023 9:00 AM EDT Appointment [place] [phone] Thomas Curtis MD [facility] [place] [address] 02/09/2024 8:00 AM EST Appointment [place] [phone] Thomas Curtis MD [facility] [place] [address] 03/18/2024 3:00 PM EST Office Visit Cardiology at [address] [phone] Sameer Rudolph MD [facility] [address] 03/22/2024 9:00 AM EST Appointment [place] [phone] Thomas Curtis MD [facility] [place] [address] 08/23/2024 Hospital Encounter [place] [phone] True Juarez MD [facility] [place] [address] Scheduled Procedures Name Priority Associated Diagnoses Date/Ti me CYSTO, STENT PLACEMENT (WRVU 2.82) Hydronephrosis with ureteral stricture, not elsewhere classified CYSTO, REMOVAL OF STENT, FOR EIGN BODY OR CALCULUS, SIMPLE (WRVU 2.81) Hydronephrosis with ureteral stricture, not elsewhere classified Health Maintenance Due Date Last Done Comments CT Colonography 1954 Colonoscopy 1954 Colorectal Cancer Screening 1954 FIT DNA 1954 FIT 1954 Sigmoidoscopy (10 year) with FIT yearly 1954 Sigmoidoscopy 1954 Pneumoccocal Vaccine: 65+ (1 of 2 - PCV) 1960 DM Opthalmology Exam 1964 Hepatitis C Screening 1972 Tdap adult 1973 Tetanus vaccine 1973 Zoster vaccine (1 of 2) 2004 Advance Directive 2009 Covid-19 Vaccine ( - 2022-2 4 season) 2022 DM Hemoglobin A1c 07/12/2023 04/13/2023 DM Urine Microalbumin yearly 09/30/2023 09/29/2022 Influenza (Flu) vaccine (1 o f 1 - Influenza standard series) 11/05/2023 DM Creatinine yearly 09/26/2024 09/27/2023, 09/12/2023, 08/04/2023, Additional history exists Lipid Screening Discontinued 04/14/2023 Diabetes Screening (HgbA1C o r Glucose) Discontinued 09/27/2023, 09/12/2023, 05/03/2023, Additional history exists Goals Goal Patient Goal Type Associated Problems Recent Progress Patient-Stated? Author DH Home Medication Compliance and Understanding Patient Facing Action Plan Christy Bravo, [facility] Note: The patient? s goal is to continue positive results of oral chemotherapy by maintaining improved labs (PSA) or stable scans in clinic for the upcoming year. Medical Devices Implanted Type Area Side Piece Coverer Device Identifier Shelf Expiration Date Model / Serial / Lot Graft Bone Filler 1cc Dbm Syringe Putty Vesuvius ([id number]) (Autoreq) - [id number] Implanted:Qt y: 1 on 03/17/2022 by Bebe Hatfield MD at [facility] IMPLANTS N/A: Spine Cervical [employer] 10/04/2023 [id number] 10DP / [id number] / [id number] Cage 3 Screw Spinal [id number] Sa Ti ([id number]) (Autoreq) - [id number] Implanted:Qt y: 1 on 03/17/2022 by Bebe Hatfield MD at [facility] IMPLANTS N/A: Spine Cervical [employer] 3608-208 123W / / Cage 3 Screw Spinal [id number] Sa Ti ([id number]) (Autoreq) - [id number] Implanted:Qt y: 1 on 03/17/2022 by Bebe Hatfield MD at [facility] IMPLANTS N/A: Spine Cervical [employer] [id number] 123W / / Screw Spinal 3.5x14mm Anterior Cervical St Sld Ti ([id number]) (Autoreq) - [id number] Implanted:Qt y: 6 on 03/17/2022 by Bebe Hatfield MD at [facility] IMPLANTS N/A: Spine Cervical [employer] 3601-135 14 / / Stent Ureteral [id number] Dbl Pgtl Soft Ptfe Tria ([id number]) - [id number] Implanted:Qt y: 1 on 09/29/2022 by Evangelist Castañeda MD at [facility] IMPLANTS Right: Ureter [employer] [id number] 05/24/2025 [id number] 320 / / [id number] Stent Ureteral [id number] Dbl Pgtl Soft Ptfe Tria ([id number]) - [id number] Implanted:Qt y: 1 on 09/29/2022 by Evangelist Castañeda MD at [facility] IMPLANTS Left: Ureter [employer] [id number] 06/26/2025 [id number] 320 / / [id number] Stent Ureteral [id number] Set Dbl Pgtl Cls End Tip Metal ([id number]) - [id number] Implanted:Qt y: 1 on 08/23/2023 by True Juarez MD at [facility] IMPLANTS Right: Ureter [employer] [id number] 05/09/2026 FREIDA-0600 24-R / / [id number] Stent Ureteral [id number] Set Dbl Pgtl Cls End Tip Metal ([id number]) - [id number] Implanted:Qt y: 1 on 08/23/2023 by True Juarez MD at [facility] IMPLANTS Left: Ureter [employer] [id number] 07/25/2025 [facility]-0600 24-R / / [id number] Procedures Procedure Name Priority Date/Time Associated Diagnosis Comments NM PLUVICTO Routine 09/29/2023 9:27 AM EDT Prostate cancer DIFFERENTIAL, AUTOMATED Routine 09/27/2023 12:18 PM EDT Prostate cancer HEMOGRAM Routine 09/27/2023 12:18 PM EDT Prostate cancer COMPREHENSIVE METABOLIC PANEL Routine 09/27/2023 12:18 PM EDT Prostate cancer CBC (WITH DIFF) Routine 09/27/2023 12:18 PM EDT Prostate cancer COMPREHENSIVE METABOLIC PANEL Routine 09/12/2023 CBC (WITH DIFF) Routine 09/12/2023 LAB SCAN 09/12/2023 12:00 AM EDT LAB SCAN 09/12/2023 12:00 AM EDT EKG 12-LEAD Routine 09/04/2023 3:22 PM EDT XR FLUORO NO RAD <1HR - OR USE Routine 08/23/2023 1:06 PM EDT Cystoscopy, Remv Calculus, Simple ([id number]) Yes 08/23/2023 12:02 PM EDT Hydronephrosis with ureteral stricture, not elsewhere classified Cystoscopy, Insert Ureteral Stent ([id number]) Yes 08/23/2023 12:02 PM EDT Hydronephrosis with ureteral stricture, not elsewhere classified CYSTO, STENT PLACEMENT Routine 10:54 AM EDT Hydronephrosis with ureteral stricture, not elsewhere classified CYSTO, REMOVAL\STENT\FOREIGN BODY\CALCULUS\SIMPLE Routine 08/23/2023 10:54 AM EDT Hydronephrosis with ureteral stricture, not elsewhere classified IMPLANTABLE DEVICES SCAN 08/23/2023 12:00 AM EDT NM PLUVICTO Routine 08/18/2023 9:22 AM EDT Prostate cancer URINE CULTURE Routine 08/18/2023 8:14 AM EDT Hydronephrosis with ureteral stricture, not elsewhere classified ECHO SCAN (SCAN) 08/07/2023 12:0 0 AM EDT CBC (WITH DIFF) Routine 08/04/2023 LAB SCAN 08/04/2023 12:00 AM EDT LAB SCAN 08/04/2023 12:00 AM EDT LAB SCAN 08/04/2023 12:00 AM EDT LAB SCAN 08/04/2023 12:00 AM EDT LIPID PANEL (REFLEX DIRECT LDL) Routine 04/14/2023 12:40 AM EST HEMOGLOBIN A1C Routine 04/13/2023 9:07 PM EST U ALBUMIN/CRE RATIO Routine 09/29/2022 3 :37 AM EDT from Last 3 Months or Most Recently Relevant to Health Maintenance Results * NM Pluvicto (09/29/2023 9:27 AM EDT) Only the most recent of2 resultswithin the time period is included. WORKSTATION ID [id number] DH RAD Anatomical Region Laterality Modality Nuclear Medicine Impressions 09/29/2023 11:02 AM EDT Lutetium Kate-177 vipivotide tetraxetan (Pluvicto) administered without complication. I have personally reviewed the image(s) and the resident's interpretation and agree with the findings, Tim Levine MD at 09/29/2023 11:02 AM Thank you for letting us participate in the care of this patient. ??If you are a health care provider and have any questions regarding this report, please contact the number below. ??For patients who have questions please contact the health adult daycare coordinator that requested your imaging first. ? Narrative 09/29/2023 11:02 AM EDT EXAMINATION: NM PLUVICTO CLINICAL HISTORY: Metastatic prostate cancer refractory to androgen deprivation therapy and taxane-based chemotherapy. TECHNIQUE: Lutetium Kate-177 vipivotide tetraxetan (Pluvicto) was administered intravenously over 1 minute. Lutetium Kate-177 vipivotide tetraxetan (Pluvicto) Dose: 200 mCi FINDINGS: 195 mCi Lutetium Kate-177 vipivotide tetraxetan (Pluvicto) was administered intravenously. 5 mCi was wasted and not administered. Procedure Note Tim Levine MD - 09/29/2023 EXAMINATION: NM PLUVICTO CLINICAL HISTORY: Metastatic prostate cancer refractory to androgendeprivation therapy and taxane-based chemotherapy. TECHNIQUE: Lutetium Kate-177 vipivotide tetraxetan (Pluvicto) was administeredintravenously over 1 minute. Lutetium Kate-177 vipivotide tetraxetan (Pluvicto) Dose: 200 mCi FINDINGS: 195 mCi Lutetium Kate-177 vipivotide tetraxetan (Pluvicto) wasadministered intravenously. 5 mCi was wasted and not administered. IMPRESSION Lutetium Kate-177 vipivotide tetraxetan (Pluvicto) administered without complication. I have personally reviewed the image(s) and the resident's interpretationand agree with the findings, Tim Levine MD at 09/29/2023 11:02 AM Thank you for letting us participate in the care of this patient. If youare a health care provider and have any questions regarding this report,please contact the number below. For patients who have questions please contactthe health adult daycare coordinator that requested your imaging first. Thomas Curtis MD [facility] NM ORDERABLES * (ABNORMAL) Hemogram (09/27/2023 12:18 PM EDT) White Blood Cell 5.0 4.0 - 9.5 x10(3)/mc L [facility] Red Blood Cell 3.18(L) 4.58 - 5.54 x10(6)/[facility] Hemoglobin 9.2(L) 13.7 - 16.5 g/dL [facility] Hematocrit 28.9(L) 40.5 - 48.5 % [facility] Mean Cell Volume 90.9 82.9 - 93.1 [facility] Mean Cell Hemoglobin 28.9 27.5 - 32.1 pg [facility] Mean Cell Hemoglobin Concentration 31.8(L) 32.0 - 35.7 g/dL [facility] Platelet 356 145 - 357 x10(3)/[facility] RDW Standard Deviation 55.8(H) 36.0 - 45.0 [facility] RDW coefficient of variation 16.6(H) 11.4 - 13.8 % [facility] Mean Platelet Volume 8.9 7.6 - 12.9 [facility] NRBC% auto 0.0 % [facility] NRBC Absolute 0.000 0.000 - 0.000 x10(3)/ L [facility] Blood 09/27/2023 12:1 8 PM EDT 09/27/2023 4:56 PM EDT Narrative Resulting Agency Comment Spec In Lab Thomas Curtis MD HEMATOLOGY ORDERABLE S Performing Organization Address City/[facility] Co de Phone Number [facility] [address] * Differential, Automated (09/27/2023 12:18 PM EDT) Neutrophil % 56.1 % [facility] Neutrophil Absolute 2.79 1.70 - 6.10 x10(3)/[facility]OR[facility] Lymph % 25.7 % [facility] Lymphocytes Abs 1.3 0.9 - 3.2 x10(3)/[facility] Monocyte % 12.4 % [facility] Monocyte Abs 0.6 0.3 - 0.9 x10(3)/[facility] Eos % 4.6 % [facility] Eosinophils Abs 0.2 0.0 - 0.4 x10(3)/[facility] Basophil % 1.0 % [facility] Baso Absolute 0.0 0.0 - 0.1 x10(3)/[facility]OR[facility] Immature Gran % 0.20 % [facility] Comment: Immature granulocytes(IG's)percentage and absolute count will include metamyelocytes, myelocytes, and promyelocytes. Blood smears from CBCs yielding IG's will be scanned manually for concordance. If this scan disagrees with the automated IG or if promyelocytes are noted, a manual differential will be performed. Immature Gran Absolute 0.01 0.00 - 0.04 x10(3)/[facility] Blood 09/27/2023 12:1 8 PM EDT 09/27/2023 4:56 PM EDT Narrative Resulting Agency Comment Spec In Lab Thomas Curtis MD HEMATOLOGY ORDERABLE S [facility] [place] [address] * (ABNORMAL) Comprehensive metabolic panel (non-fasting) (09/27/2023 12:18 PM EDT) Only the most recent of2 resultswithin the time period is included. Glucose 134 65 - 199 mg/dL [facility] Comment:Diabetes: >=200 mg/d L plus symptoms Blood Urea Nitrogen 37(H) 10 - 20 mg/dL [facility] Creatinine 1.80(H) 0.80 - 1.50 mg/dL [facility] Sodium 135 135 - 145 mmol/L [facility] Potassium 4.8 3.5 - 5.0 mmol/L [facility] Comment: Please note: ??Patients with WBC >100,000 may have falsely elevated Potassium levels. ??For accurate Potassium quantification in these patients send serum separator tube (gold top) for subsequent determinations. ??Contact the Clinical Chemistry Laboratory if there are any questions. Chloride 104 98 - 107 mmol/L [facility] Carbon Dioxide 20(L) 22 - 31 mmol/L [facility] Anion Gap 11 5 - 15 mmol/L [facility] Calcium 9.8 8.5 - 10.5 mg/dL [facility] Protein, Total 7.7 6.1 - 8.0 g/dL [facility] Albumin 3.7 3.2 - 5.2 g/dL [facility] Aspartate Aminotransferase 21 0 - 39 unit/L [facility] Alanine Aminotransferase 11 0 - 55 unit/L [facility] Alkaline Phosphatase 79 40 - 130 unit/L [facility] Bilirubin, Total 0.2 0.2 - 1.3 mg/dL [facility] Est Glomerular Filtration Rate 40(L) >=60 mL/min/1. 73 m?? [facility] Comment: This patient's estimated GFR was [...] In Lab Thomas Curtis MD CHEMISTRY ORDERABLES [facility] [place] [address] * Scan Doc: Lab (09/12/2023 12:00 AM EDT) Only the most recent of6 resultswithin the time period is included. Narrative 09/12/2023 12:00 AM EDT Ordered by an unspecified provider. Scanning Provider MEDIA MGR SCAN EXT O RDR/RSLT * CBC (with Diff) (09/12/2023) Only the most recent of2 resultswithin the time period is included. Pathologist [facility] White Blood Cell 4.7 Hemoglobin 8.7 Hematocrit 26.3 Platelet 316 ANC 2.75 Blood 09/12/2023 Historical Provider HEMATOLOGY ORDERA BLES * EKG 12 Lead (09/04/2023 3:22 PM EDT) Ventricular rate 78 BPM MUSE SYSTEM Atrial Rate 78 BPM MUSE SYSTEM P-R Interval 116 ms MUSE SYSTEM QRS Duration 88 ms MUSE SYSTEM Q-T Interval 376 ms MUSE SYSTEM QTC Calculated (Bezet) 428 ms MUSE SYSTEM Calculated P [place] 52 degrees MUSE SYSTEM Calculated R [place] 57 degrees MUSE SYSTEM Calculated T [place] 125 degrees MUSE SYSTEM INTERPRETATION Normal sinus rhythm ST & T wave abnormality, consider lateral ischemia Abnormal ECG When compared with ECG of 27-FEB-2024 18:59, T wave inversion now evident in Lateral leads Confirmed by MD Rudolph Daniel ([id number]) on 09/14/2023 3:25:43 PM MUSE SYSTEM 09/04/2023 3:22 PM EDT 09/14/2023 3:25 PM EDT Unknown ECG ORDERABLES Performing Organization Address City/[facility]/ZIP Co de Phone Number MUSE SYSTEM * XR Fluoro No Rad <1Hr - [...] Provider MEDIA MGR SCAN EXT O RDR/RSLT * (ABNORMAL) Urine culture Clean Catch Urine (08/18/2023 8:14 AM EDT) Urine Culture 50,000-99,000 cfu/ml Coagulase Negative Staph, not S. saprophyticus Susceptibility testing not routinely performed for Coagulase Negative Staphylococcus species and other Gram Positive organisms from urine. (A) [facility] Organism Coagulase Negative Staph, not S. saprophyticus(A) [facility] Clean Catch Urine 08/18/2023 8:14 AM EDT 08/18/2023 10:14 AM EDT Narrative Resulting Agency Comment Spec In Lab True Juarez MD MICROBIOLOGY - GEN ERAL ORDERABLES [facility] [place] [address] * Scan Doc: Echo (08/07/2023 12:00 AM EDT) Anatomical Region Laterality Modality Cardiac Other Narrative 08/07/2023 12:00 AM EDT Ordered by an unspecified provider. Scanning Provider MEDIA MGR SCAN EXT O RDR/RSLT * Lipid Panel (Reflex Direct LDL) (04/14/2023 12:40 AM EST) Cholesterol, Total 101 mg/dL [facility] Comment: Lower Risk: <200 mg/dL Average Risk: 200-239 mg/dL Higher Risk: >my=342 mg/dL Triglyceride 144 mg/dL [facility] Comment: Average Risk/Lower Risk: <150 mg/dL Borderline High Risk: 150-199 mg/dL High Risk: 200-499 mg/dL Very High Risk: >qq=630 mg/dL HDL Cholesterol 34 mg/dL [facility] Comment: Males: ?? Higher Risk: <40 mg/dL Females: ?? Higher Risk: <50 mg/dL LDL Cholesterol 38 mg/dL [facility] Comment: Lowest Risk: <100 mg/dL Lower Risk: 100-129 mg/dL Borderline High Risk: 130-159 mg/dL High Risk: 160-189 mg/dL Very High Risk: >gr=164 mg/dL Cholesterol/HDL Ratio 3.0 ratio [facility] Lipid Interpretation See Note [facility] Comment: Lipid management should be guided by a patient? s ASCVD risk, goals and preferences. ACC/AHA Guidelines recommend high intensity statin if clinical ASCVD or LDL greater than or equal to 190 mg/dL. http://Bay [employer] (P).com/UVR-UTA-Xalhnrzze Adults aged 40-75 with LDL 70-189 mg/dL should have their 10 year ASCVD risk estimated with the ACC/AHA ASCVD risk steel estimator http://tools.acc.org/RWKMD-Gazx-Hdvdnfesh/ Statin should be discussed if risk greater than or equal to 7.5% in non-diabetics. With diabetes, moderate intensity statin is recommended if risk less than 7.5%, high intensity if risk greater than or equal to 7.5%. Annual lipid monitoring on statins is not necessary. Evaluate secondary causes of Triglycerides greater than 500 mg/dL or LDL greater than 190 mg/dL: See table 6 of ACC/AHA Guideline. Lifestyle modification is a critical component of ASCVD risk reduction. Blood 04/14/2023 12:4 0 AM EST 04/14/2023 12:53 AM EST Narrative Resulting Agency Comment Spec In Lab Tha Jacobs MD CHEMISTRY ORDERABLE S Performing Organization Address [facility] Co de Phone Number [facility] [place] [address] * (ABNORMAL) Hemoglobin A1c (04/13/2023 9:07 PM EST) Hemoglobin A1c 8.0(H) 4.3 - 5.6 % [facility] Comment: Reference Range: 4.3 - 5.6% 5.7 - 6.4% - Increased Risk of Developing Diabetes Mellitus >= 6.5% - Consistent with diagnosis of Diabetes Mellitus In the absence of hyperglycemia (i.e. plasma glucose > 200 mg/dL) or classic symptoms of hyperglycemia a repeat measurement of HbA1c should be performed on a separate sample to confirm the diagnosis. Diagnosis and Classification of Diabetes Mellitus, Diabetes Care 2013; 36: Suppl. 1, S67-84 Estimated Average Glucose 182 mg/dL [facility] Blood 04/13/2023 9:07 PM EST 04/13/2023 9:25 PM EST Narrative Resulting Agency Comment Spec In Lab Authorizing Provider Result Jose Jacobs MD CHEMISTRY ORDERABLE S Performing Organization Address [facility] de Phone Number [facility] [place] [address] * U Albumin/Cre Ratio (09/29/2022 3:37 AM EDT) Albumin / Creatinin Ratio, Urine 22 0 - 29 mcg/mg Cr [facility] Comment: Reference Ranges: <30 mcg/mg: Normal 30-300 mcg/mg: Moderately increased albuminuria.* >300 mcg/mg: Severely increased albuminuria. * ACEI or ARB recommended if diabetic; suggested if BP>130/80 without diabetes ACEI or ARB strongly recommended if diabetic; recommended if BP>130/80 without diabetes Two of three specimens collected within a 3 to 6 month period should be abnormal before considering a patient to have albuminuria. Transient causes: exercise, fever, infection, CHF, marked hyperglycemia or hypertension. Persistent albuminuria indicates CKD and is an independent risk factor for ASCVD. ADA Standards of Medical Care in Diabetes-2016; KDIGO: Kidney International Supplements (2012) 2, 357? 362 Albumin, Urine 16.6 mg/L [facility] Creatinine, Urine 77 mg/dL [facility] Urine Urine / Unknown 09/29/2022 3 :37 AM EDT 09/29/2022 4:26 PM EDT Narrative Resulting Agency Comment Spec In Lab Reinaldo Barron MD URINE ORDERABLES [facility] [address] [place] [address] from Last 3 Months or Most Recently Relevant to Health Maintenance Advance Directives * Attempt Cardiopulmonary Resuscitation - Inpatient (Latest Code Status on File) Date Activated Date Inactivated Comments 05/02/2023 6:42 PM 05/03/2023 2:19 PM Question Answer Comments Code Status decision made by: Patient * Attempt Cardiopulmonary Resuscitation - Inpatient Date Activated Date Inactivated Comments 05/02/2023 2:09 PM 05/02/2023 6:42 PM Question Answer Comments Code Status decision made by: Patient * Attempt Cardiopulmonary Resuscitation - Inpatient Date Activated Date Inactivated Comments 04/13/2023 7:12 PM 04/19/2023 4:20 PM Question Answer Comments Code Status decision made by: Patient * Attempt Cardiopulmonary Resuscitation - Inpatient Date Activated Date Inactivated Comments 2022 11:22 PM 10/03/2022 6:05 PM Question Answer Comments Code Status decision made by: Patient * Attempt Cardiopulmonary Resuscitation - Inpatient Date Activated Date Inactivated Comments 03/17/2022 7:20 AM 03/17/2022 5:09 PM Question Answer Comments Code Status decision made by: Patient Care Teams Parts Classifier Relationship Specialty Start Date End Date Nicolasa Valenzuela PA [address] [place] [address] PCP - General Family Medicine 12/20/21
--- OUTSIDE RECORDS SUMMARY | 2023-10-16 03:09 | XMS_ITS | Encounter Summary ---
Author Organization [facility] Address [facility] [place] [address] Care Team Providers Care Coding Quality Analyst Name Role Phone Nicolasa Valenzuela Primary Care Pro vider Encounter Details Date Type Department Care Team (Late st Contact Info) Description 09/27/2023 12:05 PM EDT Laboratory Appointment Lab at [facility] [address] [place] [phone] Social History Tobacco Use Types Packs/Day Years Used Date Smoking Tobacco: Never Smokeless Tobacco: Never Alcohol Use Standard Drinks/Week Comments Yes 0 (1 standard drink = 0.6 oz pur e alcohol) rare [facility] Utilities Answer Date Recorded In [...] 2:30 PM EDT Office Visit Hematology/Oncology at [address] [phone] Fiordaliza Downing APRN [facility] [place] [address] 11/10/2023 9:00 AM EDT Appointment [place] [address] Thomas Curtis MD [facility] [address] HEMATOLOGY [place] [address] 11/21/2023 11:00 AM EDT Infusion Hematology Oncology at [address] [phone] 12/05/2023 1:30 PM EDT Office Visit Hematology/Oncology at [address] [phone] Thomas Curtis MD [facility] HEMATOLOG[place] [address] Fiordaliza Downing APRN [facility] [place] [address] 12/26/2023 9:00 AM EDT Appointment [place] [phone] Thomas Curtis MD [facility] [place] [address] 02/09/2024 8:00 AM EST Appointment [place] [phone] Thomas Curtis MD [facility] HEMATOLOG[place] [address] 03/18/2024 3:00 PM EST Office Visit Cardiology at [address] [phone] Sameer Rudolph MD [facility] [place] [address] 03/22/2024 9:00 AM EST Appointment [place] [phone] Thomas Curtis MD [facility] HEMATOLOGY [place] [address] 08/23/2024 Hospital Encounter [place] [phone] True Juarez MD [facility] [place] [address] Scheduled Procedures Name Priority Associated Diagnoses Date/Ti [...] on filedocumented in this encounter Care Teams Coding Quality Analyst Relationship Specialty Start Date End Date Nicolasa Valenzuela PA [address] [place] [address] PCP - General Family Medicine 12/20/21 documented as of this encounter
--- OUTSIDE RECORDS SUMMARY | 2023-10-16 03:09 | XMS_ITS | Encounter Summary ---
Author Organization [facility] Address [facility] Arianna [place] [address] Care Team Providers Care Construction Teacher Name Role Phone Nicolasa Valenzuela Primary Care Pro vider Encounter Details Date Type Department Care Team (Late st Contact Info) Description 09/27/2023 1:00 PM EDT Office Visit Dermatology at [facility] [address] [place] [address] Sidney Lee MD [facility] [place] [address] Acute urticaria Social History Tobacco Use Types Packs/Day Years Used Date Smoking Tobacco: Never Smokeless Tobacco: Never Alcohol Use Standard Drinks/Week Comments Yes 0 (1 standard drink = 0.6 oz pur e alcohol) rare [facility] Utilities Answer Date Recorded In the past 12 months has [employer], gas, oil, or water Score The Board threatened to shut off services in your [...] Progress Notes * Sidney Lee MD - 09/27/2023 1:00 PM EDT Images from the original note were not included. DEPARTMENT OF DERMATOLOGY Medical Dermatology Clinic Provider: Sidney Lee MD Patient's preferred name [...] Huber Keys is a 67 y.o. Patient returns to clinic today for a rash follow up. Patient reports: - No longer itchy - Rash is no longer pink; now is prasad instead Last visit at Dermatology: 09/05/2023 Last visit with this provider: 09/05/2023 Medications: Reviewed in eD-H Allergies: Reviewed in eD-H Skin Examination: Focused skin examination of the thighs was normal with the exception of the findings below. Assessment/Plan #. Favor Acute Urticaria - PIH [...] to affected area. Can restart if flares. Other: OTC skin products discussed RTC: PRN; message me on myDH with update in 4 weeks []Note routed to dental secretary []Recall placed in scheduling system []Appointment scheduled at checkout Scribe attestation: Sidney Lee MD has performed the documentation for this encounter in the presence of and acting as a scribe for Sidney Lee MD. I performed the above scribed service and agree with the accuracy of the documentation in this encounter. Reviewed and signed by: Sidney Lee MD Dermatology [facility] Staff water reclamation systems operator: Brisa Rios Dermatology [facility] * Trudy Jasso MD - 09/27/2023 1:00 PM EDT I was the supervising physician working with the Dermatology resident, Sidney Lee MD, in the care of this Dermatology patient in person. For the purposes of billing, the resident provided the care. I have reviewed the encounter note details and level of service. Trudy Jasso MD Staff Overseer [employer] Department of Dermatology [facility] documented in this encounter Plan of Treatment Upcoming Encounters Date Type Department Care Team (Late st Contact Info) Description 10/16/2023 2:30 PM EDT Office Visit Hematology/Oncology at [address] [phone] Fiordaliza Downing APRN [facility] [place] [address] 11/10/2023 9:00 AM EDT Appointment [place] [address] Thomas Curtis MD [facility] [place] [address] 11/21/2023 11:00 AM EDT Infusion Hematology Oncology at [address] [phone] 12/05/2023 1:30 PM EDT Office Visit Hematology/Oncology at [address] [phone] Thomas Curtis MD [facility] [address] [place] [address] Fiordaliza Downing APRN [facility] [place] [address] 12/26/2023 9:00 AM EDT Appointment [place] [address] Thomas Curtis MD [facility] DR [place] [address] 02/09/2024 8:00 AM EST Appointment [place] [address] Thomas Curtis MD [facility] [place] [address] 03/18/2024 3:00 PM EST Office Visit Cardiology at [address] [phone] Sameer Rudolph MD [facility] [place] [address] 03/22/2024 9:00 AM EST Appointment [place] [address] Thomas Curtis MD [facility] DR [place] [address] 08/23/2024 Hospital Encounter [place] [address] True Juarez MD [facility] [place] [address] Scheduled Procedures Name Priority Associated [...] Understanding Patient Facing Action Plan Christy Bravo [facility] ED Note: The patient? s goal is to continue positive results of oral chemotherapy by maintaining improved labs (PSA) or stable scans in clinic for the upcoming year. documented as of this encounter Visit Diagnoses Diagnosis Acute urticaria Other specified urticaria documented in this encounter Care Teams Construction Teacher Relationship Specialty Start Date End Date Nicolasa Valenzuela PA [address] [place] [address] PCP - General Family Medicine 12/20/21 documented as of this encounter
--- OUTSIDE RECORDS SUMMARY | 2023-10-16 03:09 | XMS_ITS | Encounter Summary ---
Author Organization [facility] [place] [address] Care Team Providers Care Concrete Hopper Operator Name Role Phone Nicolasa Valenzuela Primary Care Pro vider Reason for Referral * Diagnostic Test (Routine) - Closed Specialty Diagnoses / Procedures Referred By Toño mayorga Referred To Contact Radiology Diagnoses Prostate cancer Procedures Thomas Pickett MD [facility] [address] [place] [address] [place] [address] Referral ID Status Reason Start Date Expiration Date V isits Requested Visits Authorized [id number] Closed Specialty Service Requested 06/27/2023 12/27/2024 1 1 Reason for Visit * Diagnostic Test (Routine) - Closed Specialty Diagnoses / Procedures Referred By Toño mayorga Referred To Contact Radiology Diagnoses Prostate cancer Procedures Thomas Pickett MD [facility] [place] [address] [place] [address] Referral ID Status Reason Start Date Expiration Date V isits Requested Visits Authorized [id number] Closed Specialty Service Requested 06/27/2023 12/27/2024 1 1 Encounter Details Date Type Department Care Team (Latest Contact Info) Description 09/29/2023 8:56 AM EDT - 09/29/2023 11:59 PM EDT Hospital Encounter [place] [address] Thomas Curtis MD [facility] [address] [place] [address] Prostate cancer Discharge Disposition: Home Social History Tobacco Use Types Packs/Day Years Used Date Smoking Tobacco: Never Smokeless Tobacco: Never Alcohol Use Standard Drinks/Week Comments Yes 0 (1 standard drink = 0.6 oz pur e alcohol) rare [facility] Utilities Answer Date Recorded In [...] on file documented as of this encounter Medications at Time of Discharge Medication Sig Dispensed Refills Start Date End Date triamcinolone (Kenalog) 0.1 % CreamIndications:Acut e urticaria Apply topically to affected area(s) on the trunk and extremities twice daily for up to 2 weeks. Take 1 week off and then repeat cycle as needed. 453.6 g 09/05/2023 hydrOXYzine (Atarax) 25 mg tabletIndications:Acu te urticaria Take 1 tablet by mouth nightly. 30 tablet 09/05/2023 aspirin 81 mg chewable tablet Take 81 [...] tablet Take 150 mcg by mouth daily. HYDROcodone-acetamino phen (Coventry) 5-325 mg tablet Take 1 tablet by [...] Units subcutaneously daily. 10 mL 12 10/03/2022 documented as of this encounter Plan of Treatment Upcoming Encounters Date Type Department Care Team (Late st Contact Info) Description 10/16/2023 2:30 PM EDT Office Visit Hematology/Oncology at [address] [phone] Fiordaliza Downing APRN [facility] [place] [address] 11/10/2023 9:00 AM EDT Appointment [place] [phone] Thomas Curtis MD [facility] [place] [address] 11/21/2023 11:00 AM EDT Infusion Hematology Oncology at [address] [phone] 12/05/2023 1:30 PM EDT Office Visit Hematology/Oncology at [address] [phone] Thomas Curtis MD [facility] [place] [address] Fiordaliza Downing APRN [facility] [place] [address] 12/26/2023 9:00 AM EDT Appointment [place] [phone] Thomas Curtis MD [facility] [place] [address] 02/09/2024 8:00 AM EST Appointment [place] [phone] Thomas Curtis MD [facility] [place] [address] 03/18/2024 3:00 PM EST Office Visit Cardiology at [address] [place] [address] Sameer Rudolph MD [facility] [place] [address] 03/22/2024 9:00 AM EST Appointment [place] [phone] Thomas Curtis MD [facility] [place] [address] 08/23/2024 Hospital Encounter [place] [address] True Juarez MD [facility] [place] [address] Scheduled Procedures Name Priority Associated Diagnoses Date/Ti [...] Understanding Patient Facing Action Plan Christy Bravo, [facility] Note: The patient? s goal is to continue positive results of oral chemotherapy by maintaining improved labs (PSA) or stable scans in clinic for the upcoming year. documented as of this encounter Procedures Procedure Name Priority Date/Time Associated Diagnosis Comments NM PLUVICTO Routine 09/29/2023 9:27 AM EDT Prostate cancer documented in this encounter Results * NM Pluvicto (09/29/2023 9:27 AM EDT) WORKSTATION ID [id number] RAD Anatomical Region Laterality Modality Nuclear Medicine [...] who have questions please contact the health childcare administrator that requested your imaging first. ? Electronically signed by: Tim Levine MD, [facility] ([phone]), at 09/29/2023 11:02 AM Narrative 09/29/2023 11:02 AM EDT EXAMINATION: NM [...] patients who have questions please contactthe health childcare administrator that requested your imaging first. Electronically signed by: Tim Levine MD, [facility]([phone]), at 09/29/2023 11:02 AM Thomas Curtis MD IM NM ORDERABLES documented in this encounter Visit Diagnoses Diagnosis Prostate cancer Malignant neoplasm of prostate documented in this encounter Administered Medications Inactive Administered Medications - up to 3 most recent administrations Medication Order MAR Action Action Date Dose Rate Site lutetium Kate-177 vipivotide tetraxetan (Pluvicto) Injection 0-200 mCi 0-200 mCi, Intravenous, EVERY 6 WEEKS, First dose on Mon09/29/23 at 0945, Until Discontinued, Radiology Contrast, Routine Given 09/29/2023 9:25 AM EDT 195 mCi Right Arm documented in this encounter Care Teams Concrete Hopper Operator Relationship Specialty Start Date End Date Nicolasa Valenzuela PA [address] [place] [address] PCP - General Family Medicine 12/20/21 documented as of this encounter
--- OUTSIDE RECORDS SUMMARY | 2023-10-16 03:09 | XMS_ITS | Encounter Summary ---
Author Organization Count Includes [facility] Address [facility] [place] [address] Care Team Providers Care Secondary School Registrar Name Role Phone Nicolasa Valenzuela Primary Care Pro vider Encounter Details Date Type Department Care Team (Latest Contact Info) Description 09/12/2023 Travel Social History Tobacco Use Types Packs/Day Years Used Date Smoking Tobacco: Never Smokeless Tobacco: Never Alcohol Use Standard Drinks/Week Comments Yes 0 (1 standard drink = 0.6 oz pur e alcohol) rare [facility] Utilities Answer Date Recorded In [...] place to sleep or slept in a halfway (including now)? No 04/14/2023 DH IPV Inpatient [...] 2:30 PM EDT Office Visit Hematology/Oncology at [address] [phone] Fiordaliza Downing APRN [facility] [place] [address] 11/10/2023 9:00 AM EDT Appointment [place] [address] Thomas Curtis MD [facility] DR HEMATOLOGY [place] [address] 11/21/2023 11:00 AM EDT Infusion Hematology Oncology at [address] [phone] 12/05/2023 1:30 PM EDT Office Visit Hematology/Oncology at [address] [phone] Thomas Curtis MD [facility] HEMATOLOGY [place] [address] Fiordaliza Downing APRN [facility] [place] [address] 12/26/2023 9:00 AM EDT Appointment Nuclear Medicine at [place] [phone] Thomas Curtis MD [facility] HEMATOLOGY [place] [address] 02/09/2024 8:00 AM EST Appointment Nuclear Medicine at [place] [phone] Thomas Curtis MD [facility] HEMATOLOGY [place] [address] 03/18/2024 3:00 PM EST Office Visit Cardiology at [address] [phone] Sameer Rudolph MD [facility] [place] [place] [address] 03/22/2024 9:00 AM EST Appointment Nuclear Medicine at [place] [phone] Thomas Curtis MD [facility] HEMATOLOGY [place] [address] 08/23/2024 Hospital Encounter [place] [address] True Juarez MD [facility] [place] [address] Scheduled Procedures Name Priority Associated Diagnoses Date/Ti [...] Facing Action Plan Christy Bravo, [facility] Note: The patient? s goal is to continue positive results of oral chemotherapy by maintaining improved labs (PSA) or stable scans in clinic for the upcoming year. documented as of this encounter Visit Diagnoses Not on filedocumented in this encounter Care Teams Secondary School Registrar Relationship Specialty Start Date End Date Nicolasa Valenzuela PA [address] [place] [address] PCP - General Family Medicine 12/20/21 documented as of this encounter
--- OUTSIDE RECORDS SUMMARY | 2023-10-16 03:10 | XMS_ITS | Encounter Summary ---
Author Organization Count Includes [facility] Address [facility] [place] [address] Care Team Providers Care Medical Education Manager Name Role Phone Nicolasa Valenzuela Primary Care Pro vider Encounter Details Date Type Department Care Team (Late st Contact Info) Description 06/27/2023 Telephone Cardiology at [address] [place] [phone] Fiordaliza Garland, RN Social History Tobacco Use Types Packs/Day Years Used Date Smoking Tobacco: Never Smokeless Tobacco: Never Alcohol Use Standard Drinks/Week Comments Not Currently 0 (1 standard drink = 0.6 oz pur e alcohol) [facility] Utilities Answer Date Recorded In [...] place to sleep or slept in a jail (including now)? No 04/14/2023 DH IPV Inpatient Questions Answer Date Recorded Does Anyone Try to Keep You From Having Contact with Others or Doing Things Outside Your Home? no 04/13/2023 Feels Threatened by Someone no 10/2023 Feels Unsafe at Home or Work/School no 04/13/2023 Physical Signs of Abuse Present no 04/13/2023 Sex and Gender Information Value Date Recorded Sex Assigned at Not on file Gender Identity Not on file Sexual Orientation Not on file documented as of this encounter Miscellaneous Notes * Telephone Encounter - Fiordaliza Garland RN - 06/27/2023 4:11 PM EDT Call returned to pt re: pt reports about the past week c/o skin getting extreme dryness on b/l armswhere there are red dots forming. These dry areas are extremely itchy. Scratching these spots causes him to bleed. Pt is asking if this is a reaction to the new medication he's taking: clopidogrel 75mg daily. Pt started taking clopidogrel about 6-7 weeks ago. Pt's cath was performed 05/02/23 stent to mid LAD & distal LAD lesions with angioplasty to LM/LCX. Will forward to Dr. Rudolph to reviewand advise. documented in this encounter Plan of Treatment Upcoming Encounters Date Type Department Care Team (Late st Contact Info) Description 10/16/2023 2:30 PM EDT Office Visit Hematology/Oncology at [address] [phone] Fiordaliza Downing APRN [facility] [place] [address] 11/10/2023 9:00 AM EDT Appointment Nuclear [place] [address] Thomas Curtis MD [facility] [place] [address] 11/21/2023 11:00 AM EDT Infusion Hematology Oncology at [address] [phone] 12/05/2023 1:30 PM EDT Office Visit Hematology/Oncology at [address] [phone] Thomas Curtis MD [facility] HEMATOLOG[place] [address] Fiordaliza Downing APRN [facility] [place] [address] 12/26/2023 9:00 AM EDT Appointment Nuclear [place] [address] Thomas Curtis MD [facility] [place]AT[place] [address] 02/09/2024 8:00 AM EST Appointment Nuclear [place] [address] Thomas Curtis MD [facility] [place]ATOLOG[place] [address] 03/18/2024 3:00 PM EST Office Visit Cardiology at [address] [place] [phone] Sameer Rudolph MD [facility] [place] [address] 03/22/2024 9:00 AM EST Appointment Nuclear [place] [address] Thomas Curtis MD [facility] HEMATOLOGY [place] [address] 08/23/2024 Hospital Encounter [place] [address] True Juarez MD [facility] [place] [address] Scheduled Procedures Name Priority Associated [...] Understanding Patient Facing Action Plan Christy Bravo, [facility] Note: The patient? s goal is to continue positive results of oral chemotherapy by maintaining improved labs (PSA) or stable scans in clinic for the upcoming year. documented as of this encounter Visit Diagnoses Not on filedocumented in this encounter Care Teams Medical Education Manager Relationship Specialty Start Date End Date Nicolasa Valenzuela PA [address] [place] [address] PCP - General Family Medicine 12/20/21 documented as of this encounter
--- OUTSIDE RECORDS SUMMARY | 2023-10-16 03:10 | XMS_ITS | Encounter Summary ---
Author Organization [facility] Address [facility] [place] [address] Care Team Providers Care Interactive Media Marketing Director Name Role Phone Nicolasa Valenzuela Primary Care Pro vider Encounter Details Date Type Department Care Team (Latest Contact Info) Description 08/23/2023 9:36 AM EDT - 08/23/2023 2:17 PM EDT Hospital Encounter [place] [phone] True Juarez MD [facility] [place] [address] Hydronephrosis with ureteral stricture, not elsewhere classified Discharge Disposition: Home Social History Tobacco Use Types Packs/Day Years Used Date Smoking Tobacco: Never Smokeless Tobacco: Never Alcohol Use Standard Drinks/Week Comments Yes 0 (1 standard drink = 0.6 oz pur e alcohol) rare [facility] Utilities Answer Date Recorded In the past 12 months has [employer] electric, gas, oil, or water company threatened [...] place to sleep or slept in a m[facility]p (including now)? No 04/14/2023 DH IPV Inpatient [...] Sign Reading Time Taken Comments Blood Pressure 108/52 08/23/2023 1:45 PM EDT Pulse 67 08/23/2023 1:15 PM EDT Temperature 36.2 ??C (97.2 ??F) 08/23/2023 2:00 PM ED T Respiratory Rate 15 08/23/2023 1:15 PM EDT Oxygen Saturation 99% 08/23/2023 1:45 PM EDT Inhaled Oxygen Concentration - - [...] for your next stent exchange. Please call [phone] if you do not receive your appointment. Future Appointments Date Time Provider Department Center 08/24/2023 2:30 PM [facility], ROOM [facility] 09/04/2023 3:00 PM Sameer Rudolph MD 09/05/2023 3:40 PM Sidney Lee MD [facility] [address] 09/12/2023 10:30 AM Thomas Curtis MD [facility] Hem Off [facility] 09/29/2023 9:00 AM [facility] NM ROOM 1 MH Nuc Med MH Rad 11/10/2023 9:00 AM [facility] NM ROOM 1 MH Nuc Med MH Rad 12/26/2023 9:00 AM [facility] NM ROOM 1 MH Nuc Med MH Rad 02/09/2024 8:00 AM [facility] NM ROOM 1 MH Nuc Med MH Rad 03/22/2024 9:00 AM [facility] NM ROOM 1 MH Nuc Med MH Rad It is important [...] 150 mcg by mouth daily. HYDROcodone-acetamin ophen ([place]) 5-325 mg tablet Take 1 tablet by [...] Lymph Node (Chest/Abd/Pelvis) 09/30/2022 Evangelist Sparks MD [facility] RAD CT SCAN HAND SURGERY Left 1997 Left thumb repair surgery INGUINAL HERNIA REPAIR 1954 as an PRO ALLOGRAFT FOR SPINE SURGERY ONLY MORSELIZED Bilateral 03/17/2022 ALLOGRAFT FOR SPINE SURGERY ONLY; MORSELIZED (WRVU *) performed by Bebe Hatfield MD at [facility] MAIN OR PRO ARTHRD ANT INTERDY CERVCL BELW C2 EA ADDL NTRSPC Bilateral 03/17/2022 ARTHRODESIS ANT INTERBDY CERVCL BELOW C2 EA ADDL INTRSPACE (WRVU 6.5) performed by Bebe Hatfield MD at [facility] MAIN OR PRO ARTHRODESIS, ANT INTERBODY,DECOMPRESSION; CERVICAL BELOW C2 Bilateral 03/17/2022 ARTHRODESIS, ANT INTERBODY,DECOMPRESSION; CERVICAL BELOW C2 (WRVU 25) performed by Bebe Hatfield MD at [facility] MAIN OR PRO CYSTOSCOPY, INSERT URETERAL STENT Bilateral 09/29/2022 CYSTO, STENT PLACEMENT (WRVU 2.82) performed by Evangelist Castañeda MD at [facility] MAIN OR PRO INSERT BIOMCHN DEV INTERVERTEBRAL DSC SPC W/ARTHRD Bilateral 03/17/2022 INSERTION INTERBODY BIOMECH DEV TO INTERVEBRAL DISC SPACE, EA INTERSPACE (WRVU 4.25) performed by Bebe Hatfield MD at [facility] MAIN OR US GUIDED BIOPSY PROSTATE WITH URONAV FUSION 12/20/2021 US Guided Biopsy Prostate with Uronav Fusion 12/20/2021 [facility] RAD ULTRASOUND ALLERGIES Allergies Allergen Reactions Amoxicillin [...] Take 150 mcg by mouth daily. HYDROcodone-acetaminophen ([place]) 5-325 mg tablet Take 1 tablet by [...] Son MD - 08/23/2023 12:28 PM EDT [facility] Operative Note Patient Name: Huber Keys : [id number] MR#: [id number] Case Date: 08/23/2023 Surgeon: Surgeons and Role: [...] 2:30 PM EDT Office Visit Hematology/Oncology at [address] [phone] Fiordaliza Downing APRN [facility] [place] [address] 11/10/2023 9:00 AM EDT Appointment [place] [phone] Thomas Curtis MD [facility] HEMATOLOGY [place] [address] 11/21/2023 11:00 AM EDT Infusion Hematology Oncology at [address] [phone] 12/05/2023 1:30 PM EDT Office Visit Hematology/Oncology at [address] [phone] Thomas Curtis MD [facility] DR HEMATOLOGY [place] [address] Fiordaliza Downing APRN [facility] [place] [address] 12/26/2023 9:00 AM EDT Appointment [place] [phone] Thomas Curtis MD [facility] HEMATOLOGY [place] [address] 02/09/2024 8:00 AM EST Appointment [place] [address] Thomas Curtis MD [facility] HEMATOLOGY [place] [address] 03/18/2024 3:00 PM EST Office Visit Cardiology at [address] [place] [phone] Sameer Rudolph MD [facility] [place] [address] 03/22/2024 9:00 AM EST Appointment [place] [phone] Thomas Curtis MD [facility] HEMATOLOGY [place] [address] 08/23/2024 Hospital Encounter [place] [phone] True Juarez MD [facility] [place] [address] Scheduled Orders Name Type Priority Associated Diagnoses [...] Understanding Patient Facing Action Plan No Christy lCoud, [facility] Note: The patient? s goal is to continue positive results of oral chemotherapy by maintaining improved labs (PSA) or stable scans in clinic for the upcoming year. documented as of this encounter Procedures Procedure Name Priority Date/Time Associated Diagnosis Comments XR FLUORO NO RAD <1HR - OR USE Routine 08/23/2023 1:06 PM EDT Cystoscopy, Remv Calculus, Simple (12856) Yes 08/23/2023 12:02 PM EDT Hydronephrosis with ureteral stricture, not elsewhere classified Cystoscopy, Insert Ureteral Stent ([id number]) Yes 08/23/2023 12:02 PM EDT Hydronephrosis with [...] 200 mL infusion (COMPLETED) 400 mg, Intravenous, SPLICER HELPER TO O.R., 1 dose, On Mon08/23/23 at [...] RN) documented in this encounter Care Teams Interactive Media Marketing Director Relationship Specialty Start Date End Date Nicolasa Valenzuela PA [address] [place] [address] PCP - General Family Medicine 12/20/21 documented as of this encounter
--- OUTSIDE RECORDS SUMMARY | 2023-10-16 03:10 | XMS_ITS | Encounter Summary ---
Author Organization [facility] Address [facility] [place] [address] Care Team Providers Care Area Field Manager Name Role Phone Nicolasa Valenzuela Primary Care Pro vider Encounter Details Date Type Department Care Team (Late st Contact Info) Description 06/26/2023 Telephone Hematology/Oncology at [address] [phone] Elisha Montoya Social History Tobacco Use Types Packs/Day Years Used Date Smoking Tobacco: Never Smokeless Tobacco: Never Alcohol Use Standard Drinks/Week Comments Not Currently 0 (1 standard drink = 0.6 oz pur e alcohol) [facility] Utilities Answer Date Recorded In [...] place to sleep or slept in a longterm (including now)? No 04/14/2023 DH IPV Inpatient [...] * Telephone Encounter - Elisha Montoya - 06/26/2023 2:03 PM EDT Called to speak with Huber to remind them of his appt on 06/27/23 needing labs prior, had to leave a message documented in this encounter Plan of Treatment Upcoming Encounters Date Type Department Care Team (Late st Contact Info) Description 10/16/2023 2:30 PM EDT Office Visit Hematology/Oncology at [address] [phone] Fiordaliza Downing, EXERCISE MANAGER [facility] [place] [address] 11/10/2023 9:00 AM EDT Appointment [place] [phone] Thomas Curtis MD [facility] HEMATOLOGY [place] [address] 11/21/2023 11:00 AM EDT Infusion Hematology Oncology at [address] [phone] 12/05/2023 1:30 PM EDT Office Visit Hematology/Oncology at [address] [phone] Thomas Curtis MD [facility] HEMATOLOGY [place] [address] Fiordaliza Downing APRN [facility] [place] [address] 12/26/2023 9:00 AM EDT Appointment [place] [address] Thomas Curtis MD [facility] [address] HEMATOLOGY [place] [address] 02/09/2024 8:00 AM EST Appointment [place] [phone] Thomas Curtis MD [facility] HEMATOLOGY [place] [address] 03/18/2024 3:00 PM EST Office Visit Cardiology at [address] [place] [phone] Sameer Rudolph MD [facility] [place] [address] 03/22/2024 9:00 AM EST Appointment [place] [address] Thomas Curtis MD [facility] HEMATOLOGY [place] [address] 08/23/2024 Hospital Encounter Main Operating Room [facility] [address] True Jaurez MD [facility] [place] [address] Scheduled Procedures Name Priority Associated [...] on filedocumented in this encounter Care Teams Area Field Manager Relationship Specialty Start Date End Date Nicolasa Valenzuela PA [address] [place] [address] PCP - General Family Medicine 12/20/21 documented as of this encounter
--- OUTSIDE RECORDS SUMMARY | 2023-10-16 03:10 | XMS_ITS | Encounter Summary ---
Author Organization [facility] Address [facility] [place] [address] Care Team Providers Care Office Coordinator Name Role Phone Nicolasa Valenzuela Primary Care Pro vider Encounter Details Date Type Department Care Team (Late st Contact Info) Description 08/08/2023 Orders Only Hematology/Oncology at [address] [phone] Thomas Curtis MD [facility] HEMATOLOGY AND [place] [address] Social History Tobacco Use Types Packs/Day Years Used Date Smoking Tobacco: Never Smokeless Tobacco: Never Alcohol Use Standard Drinks/Week Comments Not Currently 0 (1 standard drink = 0.6 oz pur e alcohol) [facility] Utilities Answer Date Recorded In the past 12 months has [employer], gas, oil, or water [employer] threatened to shut off services in your [...] place to sleep or slept in a intermediate (including now)? No 04/14/2023 DH IPV Inpatient [...] 2:30 PM EDT Office Visit Hematology/Oncology at [address] [phone] Fiordaliza Downing APRN [facility] [place] [address] 11/10/2023 9:00 AM EDT Appointment [place] [phone] Thomas Curtis MD [facility] [place] [address] 11/21/2023 11:00 AM EDT Infusion Hematology Oncology at [address] [phone] 12/05/2023 1:30 PM EDT Office Visit Hematology/Oncology at [address] [phone] Thomas Curtis MD [facility] [place] [address] Fiordaliza Downing APRN [facility] [place] [address] 12/26/2023 9:00 AM EDT Appointment [place] [phone] Thomas Curtis MD [facility] [place] [address] 02/09/2024 8:00 AM EST Appointment [place] [phone] Thomas Curtis MD [facility] [place] [address] 03/18/2024 3:00 PM EST Office Visit Cardiology at [address] [place] [phone] Sameer Rudolph MD [facility] [place] [address] 03/22/2024 9:00 AM EST Appointment [place] [phone] Thomas Curtis MD [facility] [place] [address] 08/23/2024 Hospital Encounter Main Operating Room [facility] [place] [address] True Juarez MD [facility] [place] [address] Scheduled Procedures Name Priority Associated Diagnoses Date/Ti [...] on filedocumented in this encounter Care Teams Office Coordinator Relationship Specialty Start Date End Date Nicolasa Valenzuela PA [address] [place] [address] PCP - General Family Medicine 12/20/21 documented as of this encounter
--- OUTSIDE RECORDS SUMMARY | 2023-10-16 03:10 | XMS_ITS | Encounter Summary ---
Author Organization [facility] Address [facility] [place] [address] Care Team Providers Care Sleeve Maker Name Role Phone Nicolasa Valenzuela Primary Care Pro vider Reason for Visit * Reason Onset Date Comments Other 08/03/2023 Labs for pluvict o Encounter Details Date Type Department Care Team (Late st Contact Info) Description 08/03/2023 Telephone Hematology/Oncology at [address] [phone] Cara Pham RN Other (Labs for pluvicto) Social History Tobacco Use Types Packs/Day Years Used Date Smoking Tobacco: Never Smokeless Tobacco: Never Alcohol Use Standard Drinks/Week Comments Not Currently 0 (1 standard drink = 0.6 oz pur e alcohol) [facility] Utilities Answer Date Recorded In the past 12 months has [employer], gas, oil, or water [employer] threatened to shut off services in your [...] encounter Miscellaneous Notes * Telephone Encounter - Cara Pham RN - 08/03/2023 12:48 PM EDT Pt getting labs tomorrow august 03 at [facility] for pluvicto tx on August 14 we will look for results and review with Dr. Curtis on August 07. Pt going to [facility]. documented in this encounter Plan of Treatment Upcoming Encounters Date Type Department Care Team (Late st Contact Info) Description 10/16/2023 2:30 PM EDT Office Visit Hematology/Oncology at [address] [phone] Fiordaliza Downing, [facility] [place] [address] 11/10/2023 9:00 AM EDT Appointment [place] [address] Thomas Curtis MD [facility] [place] [address] 11/21/2023 11:00 AM EDT Infusion Hematology Oncology at [address] [phone] 12/05/2023 1:30 PM EDT Office Visit Hematology/Oncology at [address] [phone] Thomas Curtis MD [facility] [place] [address] Fiordaliza Downing APRN [facility] [place] [address] 12/26/2023 9:00 AM EDT Appointment [place] [address] Thomas Curtis MD [facility] [place] [address] 02/09/2024 8:00 AM EST Appointment [place] [address] Thomas Curtis MD [facility] [place] [address] 03/18/2024 3:00 PM EST Office Visit Cardiology at [address] [phone] Sameer Rudolph MD [facility] [place] [address] 03/22/2024 9:00 AM EST Appointment [place] [address] Thomas Curtis MD [facility] [place] [address] 08/23/2024 Hospital Encounter [place] [address] True Juarez MD [facility] [address] Scheduled Procedures Name Priority Associated [...] on filedocumented in this encounter Care Teams Sleeve Maker Relationship Specialty Start Date End Date Nicolasa Valenzuela PA [address] [place] [address] PCP - General Family Medicine 12/20/21 documented as of this encounter
--- OUTSIDE RECORDS SUMMARY | 2023-10-16 03:10 | XMS_ITS | Encounter Summary ---
Author Organization [facility] Address [facility] [place] [address] Care Team Providers Care Marketing Services Vice President Name Role Phone Nicolasa Valenzuela Primary Care Pro vider Encounter Details Date Type Department Care Team (Latest Contact Info) Description 06/27/2023 Travel Social History Tobacco Use Types Packs/Day Years Used Date Smoking Tobacco: Never Smokeless Tobacco: Never Alcohol Use Standard Drinks/Week Comments Not Currently 0 (1 standard drink = 0.6 oz pur e alcohol) [facility] Utilities Answer Date Recorded In the past 12 months has e electric, gas, oil, or water [employer] threatened to shut off services in your [...] 2:30 PM EDT Office Visit Hematology/Oncology at [address] [phone] Fiordaliza Downing APRN [facility] [place] [address] 11/10/2023 9:00 AM EDT Appointment [place] [address] Thomas Curtis MD [facility] DR HEMATOLOGY [place] [address] 11/21/2023 11:00 AM EDT Infusion Hematology Oncology at [address] [phone] 12/05/2023 1:30 PM EDT Office Visit Hematology/Oncology at [address] [phone] Thomas Curtis MD [facility] HEMATOLOGY [place] [address] Fiordaliza Downing APRN [facility] [place] [address] 12/26/2023 9:00 AM EDT Appointment Nuclear Medicine at [place] [phone] Thomas Curtis MD [facility] HEMATOLOGY [place] [address] 02/09/2024 8:00 AM EST Appointment Nuclear Medicine at [place] [phone] Thomas Curtis MD [facility] HEMATOLOGY [place] [address] 03/18/2024 3:00 PM EST Office Visit Cardiology at [address] [phone] Sameer Rudolph MD [facility] [place] [address] 03/22/2024 9:00 AM EST Appointment Nuclear Medicine at [place] [phone] Thomas Curtis MD [facility] HEMATOLOGY [place] [address] 08/23/2024 Hospital Encounter [place] [address] True Juarez MD [facility] [place] [address] Scheduled Procedures Name Priority Associated Diagnoses Date/Ti [...] Understanding Patient Facing Action Plan Christy Bravo, [facility] Note: The patient? s goal is to continue positive results of oral chemotherapy by maintaining improved labs (PSA) or stable scans in clinic for the upcoming year. documented as of this encounter Visit Diagnoses Not on filedocumented in this encounter Care Teams Marketing Services Vice President Relationship Specialty Start Date End Date Nicolasa Valenzuela PA [address] [place] [address] PCP - General Family Medicine 12/20/21 documented as of this encounter
--- OUTSIDE RECORDS SUMMARY | 2023-10-16 03:10 | XMS_ITS | Encounter Summary ---
Author Organization Formerly [facility] Address One [facility] [place] [address] Care Team Providers Care Band Saw Runner Name Role Phone Nicolasa Valenzuela Primary Care Pro vider Encounter Details Date Type Department Care Team (Latest Contact Info) Description 08/09/2023 Travel Social History Tobacco Use Types Packs/Day Years Used Date Smoking Tobacco: Never Smokeless Tobacco: Never Alcohol Use Standard Drinks/Week Comments Not Currently 0 (1 standard drink = 0.6 oz pur e alcohol) [facility] Utilities Answer Date Recorded In the past 12 months has e electric, gas, oil, or water [email or web address] threatened to shut off services in your [...] place to sleep or slept in a usp (including now)? No 04/14/2023 DH IPV Inpatient [...] 2:30 PM EDT Office Visit Hematology/Oncology at [address] [phone] Fiordaliza Downing APRN [facility] [place] [address] 11/10/2023 9:00 AM EDT App[place] [address] Thomas Curtis MD [facility] DR [place] [address] 11/21/2023 11:00 AM EDT Infusion Hematology Oncology at [address] [phone] 12/05/2023 1:30 PM EDT Office Visit Hematology/Oncology at [address] [phone] Thomas Curtis MD [facility] [place] [address] Fiordaliza Downing APRN [facility] [place] [address] 12/26/2023 9:00 AM EDT Appointment Nuclear Medicine at [place] [phone] Thomas Curtis MD [facility] [place] [address] 02/09/2024 8:00 AM EST Appointment Nuclear Medicine at [place] [phone] Thomas Curtis MD [facility] [place] [address] 03/18/2024 3:00 PM EST Office Visit Cardiology at [address] [phone] Sameer Rudolph MD [facility] [address] 03/22/2024 9:00 AM EST Appointment Nuclear Medicine at [place] [phone] Thomas Curtis MD [facility] [place] [address] 08/23/2024 Hospital Encounter [place] [address] True Juarez MD [facility] [address] Scheduled Procedures Name Priority Associated Diagnoses Date/Ti [...] Patient Facing Action Plan Christy Bravo, [facility] Note: The patient? s goal is to continue positive results of oral chemotherapy by maintaining improved labs (PSA) or stable scans in clinic for the upcoming year. documented as of this encounter Visit Diagnoses Not on filedocumented in this encounter Care Teams Band Saw Runner Relationship Specialty Start Date End Date Nicolasa Valenzuela PA [address] [place] [address] PCP - General Family Medicine 12/20/21 documented as of this encounter
--- OUTSIDE RECORDS SUMMARY | 2023-10-16 03:10 | XMS_ITS | Encounter Summary ---
Author Organization [facility] Address [facility] [place] [address] Care Team Providers Care Program Director Substance Abuse Name Role Phone Nicolasa Valenzuela Primary Care Pro vider Encounter Details Date Type Department Care Team (Latest Contact Info) Description 08/07/2023 4:40 PM EDT Ext Surgery or Single Event [facility] [address] [place] [phone] Sameer Rudolph MD [facility] [address] ASCVD (arteriosclerotic cardiovascular disease); Cardiomyopathy, unspecified type Social History Tobacco Use Types Packs/Day Years Used Date Smoking Tobacco: Never Smokeless Tobacco: Never Alcohol Use Standard Drinks/Week Comments Not Currently 0 (1 standard drink = 0.6 oz pur e alcohol) [facility] Utilities Answer Date Recorded In the past 12 months has [employer], gas, oil, or water [employer] threatened to shut off services in your [...] No 04/14/2023 Housing Stability Vital Sign Answer Roahn e Recorded In the last 12 months, [...] PM EDT Office Visit Hematology/Oncology at [address] [phone] Fiordaliza Downing APRN [facility] [place] [address] 11/10/2023 9:00 AM EDT Appointment [place] [phone] Thomas Curtis MD [facility] [place] [address] 11/21/2023 11:00 AM EDT Infusion Hematology Oncology at [address] [phone] 12/05/2023 1:30 PM EDT Office Visit Hematology/Oncology at [address] [phone] Thomas Curtis MD [facility] [place] [address] Fiordaliza Downing APRN [facility] [place] [address] 12/26/2023 9:00 AM EDT Appointment [place] [phone] Thomas Curtis MD [facility] [place] [address] 02/09/2024 8:00 AM EST Appointment [place] [phone] Thomas Curtis MD [facility] [place] [address] 03/18/2024 3:00 PM EST Office Visit Cardiology at [address] [place] [address] Sameer Rudolph MD [facility] [place] [address] 03/22/2024 9:00 AM EST Appointment [place] [phone] Thomas Curtis MD [facility] [place] [address] 08/23/2024 Hospital Encounter [place] [phone] True Juarez MD [facility] [place] [address] Scheduled Procedures Name Priority Associated Diagnoses Date/Ti [...] Procedure Name Priority Date/Time Associated Diagnosis Comments ECHO SCAN (SCAN) 08/07/2023 12:0 0 AM EDT documented in this encounter Results * Scan Doc: Echo (08/07/2023 12:00 AM EDT) Anatomical Region Laterality Modality Cardiac Other Narrative 08/07/2023 12:00 AM EDT Ordered by an unspecified provider. Scanning Provider MEDIA MGR SCAN EXT O RDR/RSLT documented in this encounter Visit Diagnoses Diagnosis ASCVD (arteriosclerotic cardiovascular disease) Unspecified cardiovascular disease Cardiomyopathy, unspecified type documented in this encounter Care Teams Program Director Substance Abuse Relationship Specialty Start Date End Date Nicolasa Valenzuela PA [address] [place] [address] PCP - General Family Medicine 12/20/21 documented as of this encounter
--- OUTSIDE RECORDS SUMMARY | 2023-10-16 03:10 | XMS_ITS | Encounter Summary ---
Author Organization [facility] Address One [facility] [place] [address] Care Team Providers Care Office Supervisor Name Role Phone Nicolasa Valenzuela Primary Care Pro vider Encounter Details Date Type Department Care Team (Latest Contact Info) Description 06/22/2023 Travel Social History Tobacco Use Types Packs/Day Years Used Date Smoking Tobacco: Never Smokeless Tobacco: Never Alcohol Use Standard Drinks/Week Comments Not Currently 0 (1 standard drink = 0.6 oz pur e alcohol) [facility] Utilities Answer Date Recorded In the past 12 months has e electric, gas, oil, or water [employer] threatened to shut off services in your [...] place to sleep or slept in a [place] (including now)? No 04/14/2023 DH IPV Inpatient [...] PM EDT Office Visit Hematology/Oncology at [address] [phone] Fiordaliza Downing APRN [facility] [place] [address] 11/10/2023 9:00 AM EDT Appointment [place] [address] Thomas Curtis MD [facility] DR [place] [address] 11/21/2023 11:00 AM EDT Infusion Hematology Oncology at [address] [phone] 12/05/2023 1:30 PM EDT Office Visit Hematology/Oncology at [address] [phone] Thomas Curtis MD [facility] [place] [address] Fiordaliza Downing APRN [facility] [place] [address] 12/26/2023 9:00 AM EDT Appointment Nuclear Medicine at [place] [phone] Thomas Curtis MD [facility] [place] [address] 02/09/2024 8:00 AM EST Appointment Nuclear Medicine at [place] [phone] Thomas Curtis MD [facility] [place] [address] 03/18/2024 3:00 PM EST Office Visit Cardiology at [address] [phone] Sameer Rudolph MD [facility] [place] [address] 03/22/2024 9:00 AM EST Appointment Nuclear Medicine at [place] [phone] Thomas Curtis MD [facility] [place] [address] 08/23/2024 Hospital Encounter [place] [address] True Juarez MD [facility] [place] [address] Scheduled Procedures Name Priority Associated Diagnoses Date/Ti [...] filedocumented in this encounter Care Teams Office Supervisor Relationship Specialty Start Date End Date Nicolasa Valenzuela PA [address] [address] PCP - General Family Medicine 12/20/21 documented as of this encounter
--- OUTSIDE RECORDS SUMMARY | 2023-10-16 03:10 | XMS_ITS | Encounter Summary ---
Author Organization Formerly [facility] [place] [address] Care Team Providers Care Customer Service And Sales Consultant Name Role Phone Nicolasa Valenzuela Primary Care Pro vider Encounter Details Date Type Department Care Team (Late st Contact Info) Description 08/23/2023 12:00 PM EDT Anesthesia Event [place] [address] Matty Helm MD [facility] [place] [address] Becca Shannon APR[place] [address] Anesthesia Record Procedure Summary Procedure Name Responsible Anesthesiologist Anesthesia Start Time Anesthesia Stop Time CYSTO, STENT PLACEMENT (WRVU 2.82) (Bilateral: Bladder) Matty Helm MD 08/23/23 1200 08/23/23 1313 Events Date Time Event Comment 08/23/2023 1134 1200 AN Verify 1200 Start 1202 An Start Data 1209 An Induction 1211 An Intubation 1212 Anesthesia Ready 1255 Procedure Stop 1258 Extubation/LMA Out 1303 an stop data 1309 Recovery or ICU Handoff Kate ent care was transferred to the destination unit staff after review of the patient's medical history, current anesthetic/surgical status and plan, according to the Provider Handoff Checklist. 1313 Stop Meds Name Total propofoL 160 mg fentaNYL 100 mcg lidocaine IV 50 mg dexAMETHasone 4 mg ondansetron 4 mg ePHEDrine 20 mg dexmedeTOMIDine 4 mcg/mL 28 mcg ciprofloxacin (Cipro) 400 mg in dextrose 5% 200 mL infusion 400 mg lactated ringers infusion 0 mL * Agents Name O2 * Blood No blood administrations on file. Lines, Drains, and Airways Type Details Placement Removal Incision 09/30/22; 1045; Righ t, anterior; groin; non-laparascopic puncture; Lymph node biopsy 09/30/22 1045 by Baudilio Berry RN Implanted Port 03/09/23; 0800; Sing le Lumen; superior vena cava; LRH 03/09/23 0800 by Radha Carmen RN PIV 08/18/23; 0855; ilpl-[id number] catheter system; 21 gauge; metacarpal vein (top of hand), right; distraction, intradermal injection, tolerated well 08/18/23 0855 by Thad Gaffney LPN ETT Removal Date: ; Removal Time: 1305 08/23/23 1215 by Nick Jacob CRNA 08/23/23 1305 by Matty Helm MD Supraglottic Mask Ventilation: No t Attempted (0); LMA Type: iGel; LMA Size: 4; Inserted by: DARCIE Jacob; Removal Date: 08/23/23; Removal Time: 1305 08/23/23 1215 by Nick Jacob CRNA 08/23/23 1305 by Matty Helm MD documented in this encounter Social History Tobacco Use Types Packs/Day Years Used Date Smoking Tobacco: Never Smokeless Tobacco: Never Alcohol Use Standard Drinks/Week Comments Yes 0 (1 standard drink = 0.6 oz pur e alcohol) rare [facility] Utilities Answer Date Recorded In the past 12 months has e [employer], gas, oil, or water [employer] threatened to shut off services in your [...] on file documented as of this encounter OR Notes * Anesthesia Postprocedure Evaluation - Matty Helm MD - 08/23/2023 4:17 PM EDT Department of Anesthesiology Post-procedure Note Patient: Huber Keys Procedure Summary Date: 08/23/23 Room / Location: [facility] OR [facility] MAIN OR Anesthesia Start: 1200 Anesthesia Stop: 1313 Procedures: CYSTO, STENT PLACEMENT (WRVU 2.82) (Bilateral: Bladder) CYSTO, REMOVAL OF STENT, FOREIGN BODY OR CALCULUS, SIMPLE (WRVU 2.81) (Bilateral: Bladder) Diagnosis: Hydronephrosis with ureteral stricture, not elsewhere classified (Hydronephrosis) Surgeons: True Juarez MD Responsible Provider: Matyt Helm MD Anesthesia Type: general ASA Status: 2 All Anesthesia Providers: Anesthesiologist: Matty Helm MD SUPERVISOR DIAGNOSTIC: Nick Jacob CRNA Vitals Value Taken Time BP 108/52 08/23/23 1345 Temp 36.2 ??C (97.2 ??F) 08/23/23 1400 Pulse 68 08/23/23 1323 Resp 0 08/23/23 1322 SpO2 100 % 08/23/23 1354 Pain Level 0 08/23/23 1400 Vitals shown include unfiled device data. Patient Location: PACU/MERGED WITH [facility] Level of Consciousness: Awake and Alert Pain Management: Satisfactory Analgesia PONV: None Cardiovascular Status: At Baseline and Hemodynamically Stable Respiratory Status: At Baseline and Room Air Postoperative Fluid Status: Intravascular EUvolemia Possible Anesthetic Complications: NONE apparent at time of evaluation Final Primary Anesthesia Type: General (The anesthetic type performed was the same as planned.) Comments: Matty Helm MD * Anesthesia Preprocedure Evaluation - Matty Helm MD - 08/22/2023 5:27 PM EDT Pre-Anesthesia Evaluation for: Huber Keys a 67 y.o. male. Procedure(s): CYSTO, STENT PLACEMENT (WRVU 2.82) CYSTO, REMOVAL OF STENT, FOREIGN BODY OR CALCULUS, SIMPLE (WRVU 2.81) Patient Active Problem List Diagnosis Date Noted ??? Swelling of lower leg 06/01/2023 ??? Mitral valve insufficiency 06/01/2023 ??? CKD (chronic kidney disease) 06/01/2023 ??? Congestive heart failure 06/01/2023 ??? Adenoma of colon 06/01/2023 ??? ASCVD (arteriosclerotic cardiovascular disease) 04/25/2023 ??? Hyperlipidemia 10/21/2022 ??? Hypothyroidism 10/21/2022 ??? Traumatic plantar fasciitis 10/21/2022 ??? Type 2 diabetes mellitus 10/21/2022 ??? Prostate cancer metastatic to multiple sites 10/21/2022 ??? 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 Gout 10/21/2022 ??? Cardiomyopathy 2022 ??? Retroperitoneal lymphadenopathy 2022 ??? Hydronephrosis 2022 Past Medical History: Diagnosis Date ??? Adenocarcinoma of prostate 10/21/2022 ??? Adenoma of colon ??? ASCVD (arteriosclerotic cardiovascular disease) 04/25/2023 ??? Chronic kidney disease ??? Congestive heart failure 06/01/2023 ??? Diabetes ??? Gout ??? High blood pressure ??? Hypercholesterolemia 10/21/2022 ??? Hypothyroid Past Surgical History: Procedure Laterality Date ??? CATARACT REMOVAL WITH IMPLANT 2019 ??? CT GUIDED BIOPSY LYMPH NODE(CHEST/ABD/PELVIS) 09/30/2022 CT Guided Biopsy Lymph Node (Chest/Abd/Pelvis) 09/30/2022 Evangelist Sparks MD [facility] RAD CT SCAN ??? HAND SURGERY Left 1997 Left thumb repair surgery ??? INGUINAL HERNIA REPAIR 1954 as an infant ??? PRO ALLOGRAFT FOR SPINE SURGERY ONLY MORSELIZED Bilateral 03/17/2022 ALLOGRAFT FOR SPINE SURGERY ONLY; MORSELIZED (WRVU *) performed by Bebe Hatfield MD at [facility] MAIN OR ??? PRO ARTHRD ANT INTERDY CERVCL BELW C2 EA ADDL NTRSPC Bilateral 03/17/2022 ARTHRODESIS ANT INTERBDY CERVCL BELOW C2 EA ADDL INTRSPACE (WRVU 6.5) performed by Bebe Hatfield MD at [facility] MAIN OR ??? PRO ARTHRODESIS, ANT INTERBODY,DECOMPRESSION; CERVICAL BELOW C2 Bilateral 03/17/2022 ARTHRODESIS, ANT INTERBODY,DECOMPRESSION; CERVICAL BELOW C2 (WRVU 25) performed by Bebe aHtfield MD at [facility] MAIN OR ??? PRO CYSTOSCOPY, INSERT URETERAL STENT Bilateral 09/29/2022 CYSTO, STENT PLACEMENT (WRVU 2.82) performed by Evangelist Castañeda MD at [facility] MAIN OR ??? PRO INSERT BIOMCHN DEV INTERVERTEBRAL DSC SPC W/ARTHRD Bilateral 03/17/2022 INSERTION INTERBODY BIOMECH DEV TO INTERVEBRAL DISC SPACE, EA INTERSPACE (WRVU 4.25) performed by Bebe Hatfield MD at [facility] MAIN OR ??? US GUIDED BIOPSY PROSTATE WITH URONAV FUSION 12/20/2021 US Guided Biopsy Prostate with Uronav Fusion 12/20/2021 [facility] RAD ULTRASOUND Social History Tobacco Use ??? Smoking status: Never ??? Smokeless tobacco: Never Substance Use Topics ??? Alcohol use: Not Currently Social History Substance and Sexual Activity Drug Use Not Currently Allergies Allergen Reactions ??? Amoxicillin Rash ??? Penicillin Other (See Comments) Other reaction(s): Unknown Medications: MAR and/or home medications have been reviewed. Physical Exam: Preprocedure Vitals Current as of 08/22/23 1727 No BP, pulse, respiration, SpO2, or temperature recorded. Height: Weight: BMI: IBW: Airway Assessment: Mallampati: II TM distance: >3 FB Neck ROM: full Cardiovascular Assessment: Rhythm: regular Rate: normal Pulmonary Assessment: unlabored breathing Dental Assessment: Misc Assessment: Patient is wearing No contact(s). IV access: Peripheral line Last Filed Perioperative Cognitive Screening Value Time User MiniCOG Total Score: 5 03/17/2022 6:39 AM Milla Harris RN Anesthesia Plan: ASA 2 general, with a(n) intravenous induction This is a preliminary note Huber Keys is a 67 y.o. BMI 25 male presenting for cysto/stent exchange. Pt has a PMH of obstructive uropathy 2/2 retroperitoneal lymphadenopathy s/p bilateral stent placement. 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 PMH otherwise notable for T2DM, HLD, hypothyroidism, elevated PSA w/ negative biopsy, hx cervical decompression in March 2022. WALTER on CKD, baseline Cr ~1.5 Prior anesthetic hx: tolerated GA. Previously Gr 1 w Mac 4 Labs were reviewed Allergies: -- Amoxicillin -- Rash -- Penicillin -- Other (See Comments) -- Other reaction(s): Unknown NPO Status: Appropriate Anesthetic Plan: GA with LMA Standard ASA monitoring Adequate IV access Matty Helm MD PhD #[id number] Region - Other Informed Consent: Anesthetic plan and risks discussed with patient. Plan discussed with SUPERVISOR DIAGNOSTIC. Anesthesia Screening documented in this encounter Plan of Treatment Upcoming Encounters Date Type Department Care Team (Late st Contact Info) Description 10/16/2023 2:30 PM EDT Office Visit Hematology/Oncology at [address] [phone] Fiordaliza Downing APRN [facility] [place] [address] 11/10/2023 9:00 AM EDT Appointment [place] [phone] Thomas Curtis MD [facility] [place] [address] 11/21/2023 11:00 AM EDT Infusion Hematology Oncology at [address] [phone] 12/05/2023 1:30 PM EDT Office Visit Hematology/Oncology at [address] [phone] Thomas Curtis MD [facility] [place] [address] Fiordaliza Downing APRN [facility] [place] [address] 12/26/2023 9:00 AM EDT Appointment [place] [phone] Thomas Curtis MD [facility] [place] [address] 02/09/2024 8:00 AM EST Appointment [place] [phone] Thomas Curtis MD [facility] [place] [address] 03/18/2024 3:00 PM EST Office Visit Cardiology at [address] [place] [address] Sameer Rudolph MD [facility] [place] [address] 03/22/2024 9:00 AM EST Appointment [place] [phone] Thomas Curtis MD [facility] [place] [address] 08/23/2024 Hospital Encounter [place] [address] True Juarez MD [facility] [place] [address] Scheduled Procedures Name Priority Associated Diagnoses Date/Ti [...] Facing Action Plan Christy Bravo, [facility] Note: The patient? s goal is to continue positive results of oral chemotherapy by maintaining improved labs (PSA) or stable scans in clinic for the upcoming year. documented as of this encounter Visit Diagnoses Not on filedocumented in this encounter Administered Medications Inactive Administered Medications - up to 3 most recent administrations Medication Order MAR Action Action Date Dose Rate Site ciprofloxacin (Cipro) 400 mg in dextrose 5% 200 mL infusion 400 mg, Intravenous, INTERNAL AUDIT SENIOR MANAGER TO O.R., 1 dose, On Mon08/23/23 at 1130, Administer over 60 Minutes, Day of Surgery (Day of Procedure), Indication for (Active or Suspected): Prophylaxis, Restricted Antibiotic: Please indicate the most appropriate choice: Pre-approved indication (state the indication in comments field) Given 08/23/2023 12:12 PM EDT 400 mg dexAMETHasone (Decadron) injection Intravenous, PRN, Starting on Mon08/23/23 at 1215, Until Mon08/23/23 at 1313, Anesthesia Intra-op, Routine Given 08/23/2023 12:15 PM EDT 4 mg dexmedeTOMIDine (Precedex) (4 mcg/mL) bolus injection (Anesthsia) Intravenous, PRN, Starting on Mon08/23/23 at 1200, Until Mon08/23/23 at 1313, Anesthesia Intra-op, Routine Given 08/23/2023 12:41 PM EDT 4 mcg Given 08/23/2023 12:06 PM EDT 12 mcg Given 08/23/2023 12:00 PM EDT 12 mcg ePHEDrine sulfate (5 mg/mL) multi-dose injection Intravenous, PRN, Starting on Mon08/23/23 at 1214, Until Mon08/23/23 at 1313, Anesthesia Intra-op, Routine Given 08/23/2023 12:23 PM EDT 10 mg Given 08/23/2023 12:14 PM EDT 10 mg fentaNYL (pf) (50 mcg/mL) multi-dose injection Intravenous, PRN, Starting on Mon08/23/23 at 1200, Until Mon08/23/23 at 1313, Anesthesia Intra-op, Routine Given 08/23/2023 12:19 PM EDT 25 mcg Given 08/23/2023 12:15 PM EDT 25 mcg Given 08/23/2023 12:00 PM EDT 50 mcg lactated ringers infusion 1,000 mL, at 100 mL/hr, Intravenous, CONTINUOUS, Starting on Mon08/23/23 at 1130, Until Mon08/23/23 at 1416, Day of Surgery (Day of Procedure) New Bag 08/23/2023 12:00 PM EDT lidocaine (pf) (Xylocaine) (20 mg/mL) 2% injection syringe Intravenous, PRN, Starting on Mon08/23/23 at 1209, Until Mon08/23/23 at 1313, Anesthesia Intra-op, Routine Given 08/23/2023 12:09 PM EDT 50 mg ondansetron (pf) (Zofran) (2 mg/mL) injection Intravenous, PRN, Starting on Mon08/23/23 at 1240, Until Mon08/23/23 at 1313, Anesthesia Intra-op, Routine Given 08/23/2023 12:40 PM EDT 4 mg propofoL (Diprivan) 10 mg/mL bolus injection (Anesthesia) Intravenous, PRN, Starting on Mon08/23/23 at 1209, Until Mon08/23/23 at 1313, Anesthesia Intra-op Given 08/23/2023 12:40 PM EDT 40 mg Given 08/23/2023 12:09 PM EDT 120 mg documented in this encounter Care Teams Customer Service And Sales Consultant Relationship Specialty Start Date End Date Nicolasa Valenzuela PA [address] [place] [address] PCP - General Family Medicine 12/20/21 documented as of this encounter
--- OUTSIDE RECORDS SUMMARY | 2023-10-16 03:10 | XMS_ITS | Encounter Summary ---
Author Organization [facility] Address [facility] [place] [address] Care Team Providers Care Labor Mediator Name Role Phone Nicolasa Valenzuela Primary Care Pro vider Reason for Visit * Reason Onset Date Comments Labs Only 08/07/2023 Lab tracking Encounter Details Date Type Department Care Team (Late st Contact Info) Description 08/07/2023 Telephone Hematology/Oncology at [address] [phone] Cara Pham RN Labs Only (Lab tracking) Social History Tobacco Use Types Packs/Day Years Used Date Smoking Tobacco: Never Smokeless Tobacco: Never Alcohol Use Standard Drinks/Week Comments Not Currently 0 (1 standard drink = 0.6 oz pur e alcohol) [facility] Utilities Answer Date Recorded In the past 12 months has [employer], gas, oil, or water [employer] threatened to shut off services in your [...] place to sleep or slept in a fdc (including now)? No 04/14/2023 DH IPV Inpatient [...] Telephone Encounter - Cara Pham RN - 08/07/2023 12:05 PM EDT LAB TRACKING DIAGNOSIS: prostate cancer LABS ORDERED: cbc diff, cmp MEDICATIONS: Pluvicto starting August 15, 2023 Assessment/Plan: Labs at [facility] on 08/04/[address] Curtis and Beck Gilmore for review. (Rest of labs scanned in under media). Labs again in 6 weeks. 08/04/23 00:00 WBC 6.67 (E) Hemoglobin 10.2 (E) Hematocrit 31.1 (E) Platelets 340 (E) Neutr Abs (ANC) 4.44 (E) Sodium 132 (E) BUN 35 (E) Creatinine 1.9 (E) (E): External lab result documented in this encounter Plan of Treatment Upcoming Encounters Date Type Department Care Team (Late st Contact Info) Description 10/16/2023 2:30 PM EDT Office Visit Hematology/Oncology at [address] [phone] Fiordaliza Downing APRN [facility] [place] [address] 11/10/2023 9:00 AM EDT Appointment [place] [phone] Thomas Curtis MD [facility] HEMATOLOGY [place] [address] 11/21/2023 11:00 AM EDT Infusion Hematology Oncology at [address] [phone] 12/05/2023 1:30 PM EDT Office Visit Hematology/Oncology at [address] [phone] Thomas Curtis MD [facility] HEMATOLOGY [place] [address] Fiordaliza Downing APRN [facility] [place] [address] 12/26/2023 9:00 AM EDT Appointment [place] [phone] Thomas Curtis MD [facility] HEMATOLOGY [place] [address] 02/09/2024 8:00 AM EST Appointment [place] [phone] Thomas Curtis MD [facility] HEMATOLOGY [place] [address] 03/18/2024 3:00 PM EST Office Visit Cardiology at [address] [place] [phone] Sameer Rudolph MD [facility] [address] 03/22/2024 9:00 AM EST Appointment [place] [phone] Thomas Curtis MD [facility] HEMATOLOGY [place] [address] 08/23/2024 Hospital Encounter [place] [phone] True Juarez MD [facility] [place] [address] Scheduled Procedures Name Priority Associated Diagnoses Date/Ti [...] Facing Action Plan Christy Bravo, [facility] Note: The patient? s goal is to continue positive results of oral chemotherapy by maintaining improved labs (PSA) or stable scans in clinic for the upcoming year. documented as of this encounter Procedures Procedure Name Priority Date/Time Associated Diagnosis Comments CBC (WITH DIFF) Routine 08/04/2023 documented in this encounter Results * CBC (with Diff) (08/04/2023) White Blood Cell 6.67 Hemoglobin 10.2 Hematocrit 31.1 Platelet 340 ANC 4.44 Sodium 132 Creatinine 1.9 Blood Urea Nitrogen 35 Blood 08/04/2023 Historical Provider HEMATOLOGY ORDERA BLES documented in this encounter Visit Diagnoses Not on filedocumented in this encounter Care Teams Labor Mediator Relationship Specialty Start Date End Date Nicolasa Valenzuela PA [address] [place] [address] PCP - General Family Medicine 12/20/21 documented as of this encounter
--- OUTSIDE RECORDS SUMMARY | 2023-10-16 03:10 | XMS_ITS | Encounter Summary ---
Author Organization [facility] [place] [address] Care Team Providers Care Retail Store Manager Name Role Phone Nicolasa Valenzuela Primary Care Pro vider Reason for Referral * Diagnostic Test (Routine) - Closed Specialty Diagnoses / Procedures Referred By Toño mayorga Referred To Contact Radiology Diagnoses Prostate cancer Procedures Thomas Pickett MD [facility] DR [place]EMATOLOGY [place] [address] [place] [address] Referral ID Status Reason Start Date Expiration Date V isits Requested Visits Authorized [id number] Closed Specialty Service Requested 06/27/2023 12/27/2024 1 1 Reason for Visit * Diagnostic Test (Routine) - Closed Specialty Diagnoses / Procedures Referred By Toño mayorga Referred To Contact Radiology Diagnoses Prostate cancer Procedures Thomas Pickett MD [facility] [place] [address] [place] [address] Referral ID Status Reason Start Date Expiration Date V isits Requested Visits Authorized [id number] Closed Specialty Service Requested 06/27/2023 12/27/2024 1 1 Encounter Details Date Type Department Care Team (Latest Contact Info) Description 08/18/2023 8:21 AM EDT - 08/18/2023 11:59 PM EDT Hospital Encounter [place] [address] Thomas Curtis MD [facility] DR [place]EM[place]OLOGY [place] [address] Prostate cancer Discharge Disposition: Home Social History Tobacco Use Types Packs/Day Years Used Date Smoking Tobacco: Never Smokeless Tobacco: Never Alcohol Use Standard Drinks/Week Comments Not Currently 0 (1 standard drink = 0.6 oz pur e alcohol) [facility] Utilities Answer Date Recorded [...] 150 mcg by mouth daily. HYDROcodone-acetamin ophen (Bob White) 5-325 mg tablet Take 1 tablet by [...] TABLET DAILY FOR 4 DAYS 08/17/2023 09/04/2023 documented as of this encounter Plan of Treatment Upcoming Encounters Date Type Department Care Team (Late st Contact Info) Description 10/16/2023 2:30 PM EDT Office Visit Hematology/Oncology at [address] [phone] Fiordaliza Downing APRN [facility] [place] [address] 11/10/2023 9:00 AM EDT Appointment Nuclear [place] [phone] Thomas Curtis MD [facility] [place]EMATOLOGY [place] [address] 11/21/2023 11:00 AM EDT Infusion Hematology Oncology at [address] [phone] 12/05/2023 1:30 PM EDT Office Visit Hematology/Oncology at [address] [phone] Thomas Curtis MD [facility] HEMATOLOGY [place] [address] Fiordaliza Downing APRN [facility] [place] [address] 12/26/2023 9:00 AM EDT Appointment Nuclear [place] [phone] Thomas Curtis MD [facility] HEMATOLOGY [place] [address] 02/09/2024 8:00 AM EST Appointment [place] [phone] Thomas Curtis MD [facility] [place]EMATOLOGY [place] [address] 03/18/2024 3:00 PM EST Office Visit Cardiology at [address] [place] [phone] Samere Rudolph MD [facility] [place] [address] 03/22/2024 9:00 AM EST Appointment [place] [phone] Thomas Curtis MD [facility] HEMATOLOGY [place] [address] 08/23/2024 Hospital Encounter [place] [phone] True Juarez MD [facility] [place] [address] Scheduled Procedures Name Priority Associated Diagnoses Date/Ti [...] Date/Time Associated Diagnosis Comments NM PLUVICTO Routine 08/18/2023 9:22 AM EDT Prostate cancer documented in this encounter Results * NM Pluvicto (08/18/2023 9:22 AM EDT) [employer] WORKSTATION ID [id number] DH RAD Anatomical Region Laterality Modality Nuclear Medicine Impressions 08/18/2023 12:11 PM EDT Lutetium Kate-177 vipivotide tetraxetan (Pluvicto) administered without complication. Thank you for letting us participate in the care of this patient. ??If you are a health care provider and have any questions regarding this report, please contact the number below. ??For patients who have questions please contact the health career information specialist that requested your imaging first. ? Narrative 08/18/2023 12:11 PM EDT EXAMINATION: NM PLUVICTO CLINICAL HISTORY: Metastatic prostate cancer refractory to androgen deprivation therapy and taxane-based chemotherapy. TECHNIQUE: Lutetium Kate-177 vipivotide tetraxetan (Pluvicto) was administered intravenously over 1 minute. Lutetium Kate-177 vipivotide tetraxetan (Pluvicto) Dose: 200 mCi FINDINGS: 197 mCi Lutetium Kate-177 vipivotide tetraxetan (Pluvicto) was administered intravenously. 3 mCi was wasted and not administered. Procedure Note Beck Gilmore MD - 08/18/2023 EXAMINATION: NM PLUVICTO CLINICAL HISTORY: Metastatic prostate cancer refractory to androgendeprivation therapy and taxane-based chemotherapy. TECHNIQUE: Lutetium Kate-177 vipivotide tetraxetan (Pluvicto) was administeredintravenously over 1 minute. Lutetium Kate-177 vipivotide tetraxetan (Pluvicto) Dose: 200 mCi FINDINGS: 197 mCi Lutetium Kate-177 vipivotide tetraxetan (Pluvicto) wasadministered intravenously. 3 mCi was wasted and not administered. IMPRESSION Lutetium Kate-177 vipivotide tetraxetan (Pluvicto) administered without complication. Thank you for letting us participate in the care of this patient. If youare a health care provider and have any questions regarding this report,please contact the number below. For patients who have questions please contactthe health career information specialist that requested your imaging first. Thomas Curtis MD [facility] [place] ORDERABLES documented in this encounter Visit Diagnoses Diagnosis Prostate cancer Malignant neoplasm of prostate documented in this encounter Administered Medications Inactive Administered Medications - up to 3 most recent administrations Medication Order MAR Action Action Date Dose Rate Site lutetium Kate-177 vipivotide tetraxetan (Pluvicto) Injection 0-200 mCi 0-200 mCi, Intravenous, EVERY 6 WEEKS, First dose on Mon08/18/23 at 0945, Until Discontinued, Radiology Contrast, Routine Given 08/18/2023 9:15 AM EDT 197 mCi Right Arm documented in this encounter Care Teams Retail Store Manager Relationship Specialty Start Date End Date Nicolasa Valenzuela PA [address] [place] [address] PCP - General Family Medicine 12/20/21 documented as of this encounter
--- OUTSIDE RECORDS SUMMARY | 2023-10-16 03:10 | XMS_ITS | Encounter Summary ---
Author Organization [facility] Address [facility] [place] [address] Care Team Providers Care Meat Cutting Block Repairer Name Role Phone Nicolasa Valenzuela Primary Care Pro vider Encounter Details Date Type Department Care Team (Latest Contact Info) Description 08/18/2023 Travel Social History Tobacco Use Types Packs/Day Years Used Date Smoking Tobacco: Never Smokeless Tobacco: Never Alcohol Use Standard Drinks/Week Comments Not Currently 0 (1 standard drink = 0.6 oz pur e alcohol) [facility] Utilities Answer Date Recorded In the past 12 months has e electric, gas, oil, or water [employer] threatened to shut off services in your [...] 2:30 PM EDT Office Visit Hematology/Oncology at [address] [phone] Fiordaliza Downing APRN [facility] [place] [address] 11/10/2023 9:00 AM EDT Appointment [place] [address] Thomas Curtis MD [facility] DR HEMATOLOGY [place] [address] 11/21/2023 11:00 AM EDT Infusion Hematology Oncology at [address] [phone] 12/05/2023 1:30 PM EDT Office Visit Hematology/Oncology at [address] [phone] Thomas Curtis MD [facility] HEMATOLOGY [place] [address] Fiordaliza Downing APRN [facility] [place] [address] 12/26/2023 9:00 AM EDT Appointment Nuclear Medicine at [place] [phone] Thomas Curtis MD [facility] HEMATOLOGY [place] [address] 02/09/2024 8:00 AM EST Appointment Nuclear Medicine at [place] [phone] Thomas Curtis MD [facility] HEMATOLOGY [place] [address] 03/18/2024 3:00 PM EST Office Visit Cardiology at [address] [phone] Sameer Rudolph MD [facility] [place] [address] 03/22/2024 9:00 AM EST Appointment Nuclear Medicine at [place] [phone] Thomas Curtis MD [facility] HEMATOLOGY [place] [address] 08/23/2024 Hospital Encounter [place] [address] True Juarez MD [facility] [place] [address] Scheduled Procedures Name Priority Associated Diagnoses Date/Ti [...] Facing Action Plan Christy Bravo, [facility] Note: The patient? s goal is to continue positive results of oral chemotherapy by maintaining improved labs (PSA) or stable scans in clinic for the upcoming year. documented as of this encounter Visit Diagnoses Not on filedocumented in this encounter Care Teams Meat Cutting Block Repairer Relationship Specialty Start Date End Date Nicolasa Valenzuela PA [address] [place] [address] PCP - General Family Medicine 12/20/21 documented as of this encounter
--- OUTSIDE RECORDS SUMMARY | 2023-10-16 03:10 | XMS_ITS | Encounter Summary ---
Author Organization [facility] [place] [address] Care Team Providers Care Cavalry Scout Name Role Phone Nicolasa Valenzuela Primary Care Pro vider Encounter Details Date Type Department Care Team (Late st Contact Info) Description 06/28/2023 Telephone Urology at [facility] [place] [phone] Jenna Kiser, RN Social History Tobacco Use Types Packs/Day Years Used Date Smoking Tobacco: Never Smokeless Tobacco: Never Alcohol Use Standard Drinks/Week Comments Not Currently 0 (1 standard drink = 0.6 oz pur e alcohol) [facility] Utilities Answer Date Recorded In [...] encounter Miscellaneous Notes * Telephone Encounter - Jenna Kiser RN - 06/28/2023 11:50 AM EDT Copied from CRM #[id number]. Topic: Specialty Dept CRMs - Generic Call >> Jun 28, 2023 11:13 AM Rehana Kennedy wrote: Specialist: Christopher Relationship (if other than patient-full name): Patient Reason for Call: Patient calling stating that he would like to have his stents replaced at his first appointment if possible. His other Urologist Dr. Massey is concerned about it being in for as long as it would be with the current appointment. Please call to advise. documented in this encounter Plan of Treatment Upcoming Encounters Date Type Department Care Team (Late st Contact Info) Description 10/16/2023 2:30 PM EDT Office Visit Hematology/Oncology at [address] [phone] Fiordaliza Downing APRN [facility] [place] [address] 11/10/2023 9:00 AM EDT Appointment [place] [phone] Thomas Curtis MD [facility] [place] [address] 11/21/2023 11:00 AM EDT Infusion Hematology Oncology at [address] [phone] 12/05/2023 1:30 PM EDT Office Visit Hematology/Oncology at [address] [phone] Thomas Curtis MD [facility] [place] [address] Fiordaliza Downing APRN [facility] [place] [address] 12/26/2023 9:00 AM EDT Appointment [place] [address] Thomas Curtis MD [facility] [place] [address] 02/09/2024 8:00 AM EST Appointment [place] [phone] Thomas Curtis MD [facility] [place] [address] 03/18/2024 3:00 PM EST Office Visit Cardiology at [address] [phone] Sameer Rudolph MD [facility] [place] [address] 03/22/2024 9:00 AM EST Appointment [place] [phone] Thomas Curtis MD [facility] [place] [address] 08/23/2024 Hospital Encounter [place] [phone] True Juarez MD [facility] [place] [address] Scheduled Procedures Name Priority Associated Diagnoses Date/Ti [...] Patient Facing Action Plan Christy Bravo, [facility] Note: The patient? s goal is to continue positive results of oral chemotherapy by maintaining improved labs (PSA) or stable scans in clinic for the upcoming year. documented as of this encounter Visit Diagnoses Not on filedocumented in this encounter Care Teams Cavalry Scout Relationship Specialty Start Date End Date Nicolasa Valenzuela PA [address] [place] [address] PCP - General Family Medicine 12/20/21 documented as of this encounter
--- OUTSIDE RECORDS SUMMARY | 2023-10-16 03:10 | XMS_ITS | Encounter Summary ---
Author Organization [facility] Address [facility] [place] [address] Care Team Providers Care Internal Specialist Name Role Phone Nicolasa Valenzuela Primary Care Pro vider Encounter Details Date Type Department Care Team (Late st Contact Info) Description 08/18/2023 Orders Only Hematology [place] [address] Thomas Curtis MD [facility] [place] [address] Social History Tobacco Use Types Packs/Day Years Used Date Smoking Tobacco: Never Smokeless Tobacco: Never Alcohol Use Standard Drinks/Week Comments Not Currently 0 (1 standard drink = 0.6 oz pur e alcohol) [facility] Utilities Answer Date Recorded In the past 12 months has [employer], gas, oil, or water [employer] threatened to shut off services in your [...] place to sleep or slept in a long term (including now)? No 04/14/2023 DH IPV Inpatient [...] PM EDT Office Visit Hematology/Oncology at [address] [phone] Fiordaliza Downing APRN [facility] [place] [address] 11/10/2023 9:00 AM EDT Appointment [place] [phone] Thomas Curtis MD [facility] HEMATOLOG[place] [address] 11/21/2023 11:00 AM EDT Infusion Hematology Oncology at [address] [phone] 12/05/2023 1:30 PM EDT Office Visit Hematology/Oncology at [address] [phone] Thomas Curtis MD [facility] HEMATOLOGY [place] [address] Fiordaliza Downing APRN [facility] [place] [address] 12/26/2023 9:00 AM EDT Appointment [place] [phone] Thomas Curtis MD [facility] HEMATOLOG[place] [address] 02/09/2024 8:00 AM EST Appointment [place] [phone] Thomas Curtis MD [facility] HEMATOLOG[place] [address] 03/18/2024 3:00 PM EST Office Visit Cardiology at [address] [place] [phone] Sameer Rudolph MD [facility] [place] [address] 03/22/2024 9:00 AM EST Appointment [place] [phone] Thomas Curtis MD [facility] HEMATOLOG[place] [address] 08/23/2024 Hospital Encounter Main Operating Room [facility] [place] [address] True Juarez MD [facility] [place] [address] Scheduled Procedures Name Priority Associated Diagnoses Date/Ti [...] Facing Action Plan Christy Bravo, [facility] Note: The patient? s goal is to continue positive results of oral chemotherapy by maintaining improved labs (PSA) or stable scans in clinic for the upcoming year. documented as of this encounter Visit Diagnoses Not on filedocumented in this encounter Care Teams Internal Specialist Relationship Specialty Start Date End Date Nicolasa Valenzuela PA [address] [address] PCP - General Family Medicine 12/20/21 documented as of this encounter
--- OUTSIDE RECORDS SUMMARY | 2023-10-16 03:10 | XMS_ITS | Encounter Summary ---
Author Organization [facility] [place] [address] Care Team Providers Care Forestry Scientist Name Role Phone Nicolasa Valenzuela Primary Care Pro vider Reason for Visit * Diagnostic Test (Routine) - Closed Specialty Diagnoses / Procedures Referred By Toño mayorga Referred To Contact Radiology Diagnoses Prostate cancer metastatic to multiple sites Procedures NM PET CT PSMA Prostate (Illuccix) Thomas Curtis MD [facility] [place] [address] [place] [address] Referral ID Status Reason Start Date Expiration Date V isits Requested Visits Authorized [id number] Closed Specialty Service Requested 05/23/2023 11/22/2024 1 1 Encounter Details Date Type Department Care Team (Latest Contact Info) Description 06/22/2023 6:12 AM EDT - 06/22/2023 11:59 PM EDT Hospital Encounter [place] [address] Thomas Curtis MD [facility] [place] [address] Discharge Disposition: Home Social History Tobacco Use Types Packs/Day Years Used Date Smoking Tobacco: Never Smokeless Tobacco: Never Alcohol Use Standard Drinks/Week Comments Not Currently 0 (1 standard drink = 0.6 oz pur e alcohol) [facility] Utilities [...] place to sleep or slept in a assisted (including now)? No 04/14/2023 DH IPV Inpatient [...] 150 mcg by mouth daily. HYDROcodone-acetamino phen ([place]) 5-325 mg tablet Take 1 tablet by [...] PM EDT Office Visit Hematology/Oncology at [address] [phone] Fiordaliza Downing APRN [facility] [place] [address] 11/10/2023 9:00 AM EDT Appointment [place] [address] Thomas Curtis MD [facility] [place] [address] 11/21/2023 11:00 AM EDT Infusion Hematology Oncology at [address] [phone] 12/05/2023 1:30 PM EDT Office Visit Hematology/Oncology at [address] [phone] Thomas Curtis MD [facility] [place] [address] Fiordaliza Downing APRN [facility] [place] [address] 12/26/2023 9:00 AM EDT Appointment [place] [phone] Thomas Curtis MD [facility] [place] [address] 02/09/2024 8:00 AM EST Appointment [place] [phone] Thomas Curtis MD [facility] [place] [address] 03/18/2024 3:00 PM EST Office Visit Cardiology at [address] [phone] Sameer Rudolph MD [facility] [place] [address] 03/22/2024 9:00 AM EST Appointment [place] [phone] Thomas Curtis MD [facility] [place] [address] 08/23/2024 Hospital Encounter [place] [phone] True Juarez MD [facility] [place] [address] Scheduled Procedures Name Priority Associated Diagnoses Date/Ti me CYSTO, STENT PLACEMENT (WRVU 2.82) Hydronephrosis with ureteral stricture, not elsewhere classified CYSTO, REMOVAL OF STENT, FOR EIGN BODY OR CALCULUS, SIMPLE (WRVU 2.81) Hydronephrosis with ureteral stricture, not elsewhere classified documented as of this encounter Goals Goal Patient Goal Type Associated Problems Recent Progress Patient-Stated? Author [facility] Medication Compliance and Understanding Patient Facing Action Plan Christy Bravo, [facility] Note: The patient? s goal is to continue positive results of oral chemotherapy by maintaining improved labs (PSA) or stable scans in clinic for the upcoming year. documented as of this encounter Procedures Procedure Name Priority Date/Time Associated Diagnosis Comments NM PET CT PSMA PROSTATE (ILLUCCIX) Routine 06/22/2023 8:01 AM EDT Prostate cancer metastatic to multiple sites documented in this encounter Results * NM PET CT PSMA Prostate (Illuccix) (06/22/2023 8:01 AM EDT) WORKSTATION ID [id number] RAD Anatomical Region Laterality Modality Positron Emissio n Tomography (PET) Impressions 06/22/2023 4:26 PM EDT 1. ??Lymph node metastases can be seen in the neck, chest, abdomen and pelvis. In general, these lymph nodes have become larger in size. 2. ??Multiple skeletal metastases are present. Most of these lesions have decreased in intensity. Lesions in L2 and the left femur have resolved. There is one new focus of increased activity located in the right side of the sacrum. There was focal sclerosis in the sacrum at this site in the prior study that is now tracer avid suggesting recurrence of a metastasis. 3. ??Increased activity in the right side of the prostate gland is unchanged and consistent with PSMA positive malignancy. 4. ??New, small pericardial effusion. Thank you for referring this patient to [facility]. Thank you for letting us participate in the care of this patient. ??If you are a health care provider and have any questions regarding this report, please contact the number below. ??For patients who have questions please contact the health wound care coordinator that requested your imaging first. ? Electronically signed by: Tim Levine MD, [facility] ([phone]), at 06/22/2023 4:26 PM Narrative 06/22/2023 4:26 PM EDT EXAMINATION: NM PET CT PSMA PROSTATE (ILLUCCIX) CLINICAL HISTORY: Prostate cancer, assess treatment response C61, Malignant neoplasm of prostate TECHNIQUE: Following IV injection of Ga 68 PSMA-11 (Illuccix) and a standard uptake of approximately 60 minutes, a noncontrast CT scan followed by a PET scan were acquired from the top of the head to mid thighs. The noncontrast CT was used for anatomic localization and photon attenuation correction of the PET scan. Ga 68 PSMA-11 (Illuccix) Dose: 4.6 mCi COMPARISON: PET/CT March 03, 2023 FINDINGS: HEAD/NECK: There is a tracer avid enlarged left supraclavicular lymph node that is unchanged in appearance. The previously seen avid left posterior cervical node has resolved. CHEST: Tracer avid left retrocrural lymph nodes are present. These lymph nodes have increased in size from the prior study. A small pericardial effusion is present. Coronary artery calcifications are seen. There are stents in the LAD and left circumflex coronary arteries. There is a small pericardial effusion. This effusion is new. A right anterior chest wall port has a central venous catheter extending to the distal superior vena cava. ABDOMEN/PELVIS: Retroperitoneal tracer avid lymphadenopathy is present with lymph nodes located in the left para-aortic, retroaortic, aortocaval, retrocaval and bilateral common iliac spaces. These lymph nodes have become larger in size since the prior examination (for example, a left para-aortic lymph node measures 3.4 cm, image 214, previously 2.0 cm). There are new tracer avid foci in the Gerota's fascia bilaterally (images 229 and 234). Increased activity in the right side of the prostate gland is unchanged. Bilateral ureteral catheters are present. Bilateral renal cysts are unchanged. Several cysts contain mural calcifications SKELETON/EXTREMITIES: Foci of increased activity are present in the sacrum, right and left iliac bones. These foci all correspond to areas of sclerosis. Lesions in the mid and left side of the sacrum and the iliac bones bilaterally have decreased in intensity since the prior study. There is a focus of increased activity that is new since the prior study in the right side of the sacrum (image 271). This corresponds to a previously seen area of sclerosis. Previously seen foci of increased activity in L2 and the left femur have resolved. Procedure Note Tim Levine MD - 06/22/2023 EXAMINATION: NM PET CT PSMA PROSTATE (ILLUCCIX) CLINICAL HISTORY: Prostate cancer, assess treatment response C61, Malignant neoplasm of prostate TECHNIQUE: Following IV injection of Ga 68 PSMA-11 (Illuccix) and astandard uptake of approximately 60 minutes, a noncontrast CT scan followed by aPET scan were acquired from the top of the head to mid thighs. The noncontrast CTwas used for anatomic localization and photon attenuation correction of thePET scan. Ga 68 PSMA-11 (Illuccix) Dose: 4.6 mCi COMPARISON: PET/CT March 03, 2023 FINDINGS: HEAD/NECK: There is a tracer avid enlarged left supraclavicular lymph node that is unchanged in appearance. The previously seen avid left posterior cervicalnode has resolved. CHEST: Tracer avid left retrocrural lymph nodes are present. These lymph nodeshave increased in size from the prior study. A small pericardial effusion is present. Coronary artery calcificationsare seen. There are stents in the LAD and left circumflex coronary arteries.There is a small pericardial effusion. This effusion is new. A right anteriorchest wall port has a central venous catheter extending to the distal superiorvena cava. ABDOMEN/PELVIS: Retroperitoneal tracer avid lymphadenopathy is present with lymph nodeslocated in the left para-aortic, retroaortic, aortocaval, retrocaval andbilateral common iliac spaces. These lymph nodes have become larger in size sincethe prior examination (for example, a left para-aortic lymph node measures 3.4cm, image 214, previously 2.0 cm). There are new tracer avid foci in the Gerota's fascia bilaterally (xyicyt812 and 234). Increased activity in the right side of the prostate gland is unchanged. Bilateral ureteral catheters are present. Bilateral renal cysts areunchanged. Several cysts contain mural calcifications SKELETON/EXTREMITIES: Foci of increased activity are present in the sacrum, right and leftiliac bones. These foci all correspond to areas of sclerosis. Lesions in the midand left side of the sacrum and the iliac bones bilaterally have decreasedin intensity since the prior study. There is a focus of increased activitythat is new since the prior study in the right side of the sacrum (image 271).This corresponds to a previously seen area of sclerosis. Previously seen fociof increased activity in L2 and the left femur have resolved. IMPRESSION 1. Lymph node metastases can be seen in the neck, chest, abdomen andpelvis. In general, these lymph nodes have become larger in size. 2. Multiple skeletal metastases are present. Most of these lesions have decreased in intensity. Lesions in L2 and the left femur have resolved.There is one new focus of increased activity located in the right side of thesacrum. There was focal sclerosis in the sacrum at this site in the prior studythat is now tracer avid suggesting recurrence of a metastasis. 3. Increased activity in the right side of the prostate gland isunchanged and consistent with PSMA positive malignancy. 4. New, small pericardial effusion. Thank you for referring this patient to [facility]. Thank you for letting us participate in the care of this patient. If youare a health care provider and have any questions regarding this report,please contact the number below. For patients who have questions please contactthe health wound care coordinator that requested your imaging first. Electronically signed by: Tim Levine MD, [facility]([phone]), at 06/22/2023 4:26 PM Thomas Curtis MD IM[facility] PET ORDERABLES documented in this encounter Visit Diagnoses Not on filedocumented in this encounter Care Teams Forestry Scientist Relationship Specialty Start Date End Date Nicolasa Valenzuela PA [address] [place] [address] PCP - General Family Medicine 12/20/21 documented as of this encounter
--- OUTSIDE RECORDS SUMMARY | 2023-10-16 03:10 | XMS_ITS | Encounter Summary ---
Author Organization [facility] [place] [address] Care Team Providers Care Property Site Manager Name Role Phone Nicolasa Valenzuela Primary Care Pro vider Encounter Details Date Type Department Care Team (Late st Contact Info) Description 08/17/2023 Telephone Urology at [facility] [place] [phone] Naye Ohara, RN Social History Tobacco Use Types Packs/Day Years Used Date Smoking Tobacco: Never Smokeless Tobacco: Never Alcohol Use Standard Drinks/Week Comments Not Currently 0 (1 standard drink = 0.6 oz pur e alcohol) [facility] Utilities Answer Date Recorded In the [...] place to sleep or slept in a retirement (including now)? No 04/14/2023 IPV Inpatient Questions [...] as of this encounter Progress Notes * Naye Ohara RN - 08/17/2023 12:12 PM EDT Call placed to patient. Pre-op urine culture needed, DOS: 08/23/23. Patient will be at [facility] tomorrow, he will stop at the lab and drop off a urine sample. documented in this encounter Plan of Treatment Upcoming Encounters Date Type Department Care Team (Late st Contact Info) Description 10/16/2023 2:30 PM EDT Office Visit Hematology/Oncology at [address] [phone] Fiordaliza Downing APRN [facility] [place] [address] 11/10/2023 9:00 AM EDT Appointment [place] [phone] Thomas Curtis MD [facility] [place] [address] 11/21/2023 11:00 AM EDT Infusion Hematology Oncology at [address] [phone] 12/05/2023 1:30 PM EDT Office Visit Hematology/Oncology at [address] [phone] Thomas Curtis MD [facility] [place] [address] Fiordaliza Downing APRN [facility] [place] [address] 12/26/2023 9:00 AM EDT Appointment [place] [address] Thomas Curtis MD [facility] [place] [address] 02/09/2024 8:00 AM EST Appointment [place] [address] Thomas Curtis MD [facility] [place] [address] 03/18/2024 3:00 PM EST Office Visit Cardiology at [address] [phone] Sameer Rudolph MD [facility] [place] [address] 03/22/2024 9:00 AM EST Appointment [place] [address] Thomas Curtis MD [facility] [place] [address] 08/23/2024 Hospital Encounter [place] [phone] True Juarez MD [facility] [place] [address] Scheduled Procedures Name Priority Associated [...] Understanding Patient Facing Action Plan Christy Bravo, [facility] Note: The patient? s goal is to continue positive results of oral chemotherapy by maintaining improved labs (PSA) or stable scans in clinic for the upcoming year. documented as of this encounter Visit Diagnoses Not on filedocumented in this encounter Care Teams Property Site Manager Relationship Specialty Start Date End Date Nicolasa Valenzuela PA [address] [place] [address] PCP - General Family Medicine 12/20/21 documented as of this encounter
--- OUTSIDE RECORDS SUMMARY | 2023-10-16 03:10 | XMS_ITS | Encounter Summary ---
Author Organization [facility] Address [facility] [place] [address] Care Team Providers Care Investigation Specialist Name Role Phone Nicolasa Valenzuela Primary Care Pro vider Reason for Visit * Reason Onset Date Comments Appointment 08/18/2023 Encounter Details Date Type Department Care Team (Late st Contact Info) Description 08/18/2023 Telephone Hematology/Oncology at [address] [phone] Alexsandra Maurice RN Appointment Social History Tobacco Use Types Packs/Day Years Used Date Smoking Tobacco: Never Smokeless Tobacco: Never Alcohol Use Standard Drinks/Week Comments Not Currently 0 (1 standard drink = 0.6 oz pur e alcohol) [facility] Utilities Answer Date Recorded In the past 12 months has e Needl, gas, oil, or water Hired threatened to shut off services in your [...] place to sleep or slept in a prison (including now)? No 04/14/2023 DH IPV Inpatient [...] Miscellaneous Notes * Telephone Encounter - Kasia Maurice-Sarah Palma RN - 08/18/2023 3:24 PM EDT Called and spoke with Huber Keys to let him know we will push out FUV to 09/11 and reschedulehis [place] to stand alone visit. He can come on 08/23 for that. Lean Process Deployment Consultant is working on adding appointments. Pt is aware to have labs a few days prior to the FUV. He was thankful for the follow up call. ----- Message from Cara Leon RN sent at 08/18/2023 3:01 PM EDT ----- Regarding: please call I spoke with Thomas and he wants pt rescheduled from Monday to September 11 for provider visit, pleasereschedule sujatha to August 23 , August 24 or August 27 Kasia barbosa to call pt and let him know sohan love ----- Message ----- From: Alexsandra aMurice RN Sent: 08/18/2023 11:40 AM EDT To: Cara Pham RN; Elisha Montoya; # I think he still needs to come in as he would be due for lupron? Cara, a little confusing bc the last lab track notes says labs in 6 weeks which would push him out 3 weeks from now, but his appt next weeks also has labs attached. Please advise, Cb ----- Message ----- From: Lidya Snow Sent: 08/18/2023 11:31 AM EDT To: Elisha Montoya; [facility] Hem Onc Nurse Huber just has his first Pluvicto infusion. He thought it would be a could idea for Bill to come in 3 weeks instead of next week to see Dr. Curtis Please advise on scheduling preference. documented in this encounter Plan of Treatment Upcoming Encounters Date Type Department Care Team (Late st Contact Info) Description 10/16/2023 2:30 PM EDT Office Visit Hematology/Oncology at [address] [phone] Fiordaliza Downing APRN [facility] [place] [address] 11/10/2023 9:00 AM EDT Appointment [place] [address] Thomas Curtis MD [facility] [place] [address] 11/21/2023 11:00 AM EDT Infusion Hematology Oncology at [address] [phone] 12/05/2023 1:30 PM EDT Office Visit Hematology/Oncology at [address] [phone] Thomas Curtis MD [facility] [place] [address] Fiordaliza Downing APRN [facility] [place] [address] 12/26/2023 9:00 AM EDT Appointment [place] [phone] Thomas Curtis MD [facility] [address] [place] [address] 02/09/2024 8:00 AM EST Appointment [place] [phone] Thomas Curtis MD [facility] [place] [address] 03/18/2024 3:00 PM EST Office Visit Cardiology at [address] [phone] Sameer Rudolph MD [facility] [place] [address] 03/22/2024 9:00 AM EST Appointment [place] [phone] Thomas Curtis MD [facility] [place] [address] 08/23/2024 Hospital Encounter [place] [phone] True Juarez MD [facility] [place] [address] Scheduled Procedures Name Priority Associated Diagnoses Date/Ti [...] Facing Action Plan Christy Bravo, [facility] Note: The patient? s goal is to continue positive results of oral chemotherapy by maintaining improved labs (PSA) or stable scans in clinic for the upcoming year. documented as of this encounter Visit Diagnoses Not on filedocumented in this encounter Care Teams Investigation Specialist Relationship Specialty Start Date End Date Nicolasa Valenzuela PA [address] [address] PCP - General Family Medicine 12/20/21 documented as of this encounter
--- OUTSIDE RECORDS SUMMARY | 2023-10-16 03:10 | XMS_ITS | Encounter Summary ---
Author Organization [facility] [place] [address] Care Team Providers Care Musical Instrument Mechanic Name Role Phone Nicolasa Valenzuela Primary Care Pro vider Encounter Details Date Type Department Care Team (Latest Contact Info) Description 08/18/2023 8:15 AM EDT Laboratory Appointment Lab [address] [place] [address] Hydronephrosis with ureteral stricture, not elsewhere classified Social History Tobacco Use Types Packs/Day Years Used Date Smoking Tobacco: Never Smokeless Tobacco: Never Alcohol Use Standard Drinks/Week Comments Not Currently 0 (1 standard drink = 0.6 oz pur e alcohol) [facility] Utilities Answer Date Recorded In [...] 2:30 PM EDT Office Visit Hematology/Oncology at [address] [phone] Fiordaliza Downing APRN [facility] [place] [place] [address] 11/10/2023 9:00 AM EDT Appointment [place] [address] Thomas Curtis MD [facility] [place] [address] 11/21/2023 11:00 AM EDT Infusion Hematology Oncology at [address] [phone] 12/05/2023 1:30 PM EDT Office Visit Hematology/Oncology at [address] [phone] Thomas Curtis MD [facility] [place] [address] Fiordaliza Downing APRN [facility] [place] [address] 12/26/2023 9:00 AM EDT Appointment [place] [phone] Thomas Curtis MD [facility] [place] [address] 02/09/2024 8:00 AM EST Appointment [place] [phone] Thomas Curtis MD [facility] [place] [address] 03/18/2024 3:00 PM EST Office Visit Cardiology at [address] [phone] Sameer Rudolph MD [facility] [place] [address] 03/22/2024 9:00 AM EST Appointment [place] [phone] Thomas Curtis MD [facility] [place] [address] 08/23/2024 Hospital Encounter [place] [address] True Juarez MD [facility] [place] [address] Scheduled Procedures Name Priority Associated [...] Understanding Patient Facing Action Plan Christy Bravo [facility] Note: The patient? s goal is to continue positive results of oral chemotherapy by maintaining improved labs (PSA) or stable scans in clinic for the upcoming year. documented as of this encounter Procedures Procedure Name Priority Date/Time Associated Diagnosis Comments URINE CULTURE Routine 08/18/2023 8:14 AM EDT Hydronephrosis with ureteral stricture, not elsewhere classified documented in this encounter Results * (ABNORMAL) Urine culture Clean Catch Urine (08/18/2023 8:14 AM EDT) Urine Culture 50,000-99,000 cfu/ml Coagulase Negative Staph, not S. saprophyticus Susceptibility testing not routinely performed for Coagulase Negative Staphylococcus species and other Gram Positive organisms from urine. (A) [facility] Organism Coagulase Negative Staph, not S. saprophyticus(A) [facility] Clean Catch Urine 08/18/2023 8:14 AM EDT 08/18/2023 10:14 AM EDT Narrative Resulting Agency Comment Spec In Lab True Juarez MD MICROBIOLOGY - GEN ERAL ORDERABLES [facility] [place] [address] documented in this encounter Visit Diagnoses Diagnosis Hydronephrosis with ureteral stricture, not elsewhere classified documented in this encounter Care Teams Musical Instrument Mechanic Relationship Specialty Start Date End Date Nicolasa Valenzuela PA [address] [place] [address] PCP - General Family Medicine 12/20/21 documented as of this encounter
--- OUTSIDE RECORDS SUMMARY | 2023-10-16 03:10 | XMS_ITS | Encounter Summary ---
Author Organization [facility] [place] [address] Care Team Providers Care Collections Clerk Name Role Phone Nicolasa Valenzuela Primary Care Pro vider Encounter Details Date Type Department Care Team (Late st Contact Info) Description 08/21/2023 Telephone Urology at [facility] [place] [phone] Yokasta Trinidad RN Social History Tobacco Use Types Packs/Day Years Used Date Smoking Tobacco: Never Smokeless Tobacco: Never Alcohol Use Standard Drinks/Week Comments Not Currently 0 (1 standard drink = 0.6 oz pur e alcohol) [facility] Utilities Answer Date Recorded In the [...] encounter Miscellaneous Notes * Telephone Encounter - Yokasta Trinidad RN - 08/21/2023 5:59 PM EDT Called patient to notify of antibiotics for pre-op. Patient on his way to picker packer bactrim. Verbalizes antibiotic course. documented in this encounter Plan of Treatment Upcoming Encounters Date Type Department Care Team (Late st Contact Info) Description 10/16/2023 2:30 PM EDT Office Visit Hematology/Oncology at [address] [phone] Fiordaliza Downing APRN [facility] [place] [address] 11/10/2023 9:00 AM EDT Appointment [place] [phone] Thomas Curtis MD [facility] HEMATOLOGY [place] [address] 11/21/2023 11:00 AM EDT Infusion Hematology Oncology at [address] [phone] 12/05/2023 1:30 PM EDT Office Visit Hematology/Oncology at [address] [phone] Thomas Curtis MD [facility] DR HEMATOLOGY [place] [address] Fiordaliza Downing APRN [facility] [place] [address] 12/26/2023 9:00 AM EDT Appointment [place] [phone] Thomas Curtis MD [facility] HEMATOLOGY [place] [address] 02/09/2024 8:00 AM EST Appointment [place] [address] Thomas Curtis MD [facility] DR HEMATOLOGY [place] [address] 03/18/2024 3:00 PM EST Office Visit Cardiology at [address] [place] [phone] Sameer Rudolph MD [facility] [place] [address] 03/22/2024 9:00 AM EST Appointment [place] [address] Thomas Curtis MD [facility] DR HEMATOLOGY [place] [address] 08/23/2024 Hospital Encounter Main Operating Room [facility] [place] [phone] True Juarez MD [facility] [place] [address] Scheduled Procedures Name Priority Associated [...] Understanding Patient Facing Action Plan Christy Bravo, [facility] Note: The patient? s goal is to continue positive results of oral chemotherapy by maintaining improved labs (PSA) or stable scans in clinic for the upcoming year. documented as of this encounter Visit Diagnoses Not on filedocumented in this encounter Care Teams Collections Clerk Relationship Specialty Start Date End Date Nicolasa Valenzuela PA [address] [place] [address] PCP - General Family Medicine 12/20/21 documented as of this encounter
--- OUTSIDE RECORDS SUMMARY | 2023-10-16 03:10 | XMS_ITS | Encounter Summary ---
Author Organization [facility] [place] [address] Care Team Providers Care Payroll Assistant Name Role Phone Nicolasa Valenzuela Primary Care Pro vider Reason for Visit * Consultation (Urgent) - Authorized Specialty Diagnoses / Procedures Referred By Toño mayorga Referred To Contact Urology Diagnoses Crossing vessel and stricture of ureter without hydronephrosis Estefany Jasso MD [address] [place] [address] [facility] [place] [address] Referral ID Status Reason Start Date Expiration Date Visits Requested Visits Authorized [id number] Authorized Consult, Test & Treat PCP Updated and/or Approved 06/05/2023 06/04/2024 6 6 Encounter Details Date Type Department Care Team (Late st Contact Info) Description 07/13/2023 2:20 PM EDT TH Visit (TeleHealth) [place] [address] True Juarez MD [facility] [place] [address] Hydronephrosis with ureteral stricture, not elsewhere classified Social History Tobacco Use Types Packs/Day Years Used Date Smoking Tobacco: Never Smokeless Tobacco: Never Alcohol Use Standard Drinks/Week Comments Not Currently 0 (1 standard drink = 0.6 oz pur e alcohol) [facility] Utilities Answer Date Recorded [...] on file documented as of this encounter Patient Instructions * Patient Instructions* True Juarez MD - 07/13/2023 2:20 PM EDT Pre-Op Visit: You may not be scheduled for a preoperative visit with your Surgeon and the Anesthesia/Preop Group before surgery. You will be notified if this is needed. You will be scheduled for a urine culture 7-14 days prior to your procedure. Please call the Urology Clinic if this is not scheduled. Prior to Surgery: Please take only clear liquids by mouth from midnight the night before surgery. Please take nothingby mouth from 2 hours before the time you have been told to report to the hospital. Please stop taking any over the counter supplements one week before surgery. If you are on any blood thinners such as: Aspirin, Coumadin, Plavix, or Xarelto, PLEASE check with the Urology Clinic if you did not receive any instructions on discontinuing them prior to surgery. Many people do not need these drugs stopped for these procedures. If you have any questions please call the [facility] Clinic at or OR [facility] at [phone]. Follow-Up Appointment: You must undergo either a stent removal in the clinic or a stent change in the OR. This will be scheduled sometime in the next 1-12 months. documented in this encounter Progress Notes * True Juarez MD - 07/13/2023 2:20 PM EDT Outpatient Follow-up Huber Keys is a 67 y.o. gentleman I have seen previously for metastatic prostate cancer andbilateral ureteral obstructions managed with ureteral stents by Dr. Jasso. Please see prior notes for details. He is due for ureteral stent placement but he recently underwent cardiac catheterization and stenting and was told that the anesthesia team in [place] does not feel comfortable performing his surgery so he was referred to me for stent management. He has done well since stent placement he feels great, he is very active and clinically very healthy. I discussed getting him in for ureteral stent exchanges and actually recommended that we place metallic stents given the chronic nature and malignant obstruction which she is okay with. Following getting then for stent placement, I will let anesthesia make the final decision but giventhat his coronary artery disease is now treated with stents I suspect he would be fine to have his case done at the outpatient surgery center, we could delay his surgery till they feel most comfortable putting him under anesthesia since is only been less than 6 months since his stents have most rece ntly been exchanged. documented in this encounter Plan of Treatment Upcoming Encounters Date Type Department Care Team (Late st Contact Info) Description 10/16/2023 2:30 PM EDT Office Visit Hematology/Oncology at [address] [phone] Fiordaliza Downing APRN [facility] [place] [address] 11/10/2023 9:00 AM EDT Appointment [place] [address] Thomas Curtis MD [facility] [place] [address] 11/21/2023 11:00 AM EDT Infusion Hematology Oncology at [address] [phone] 12/05/2023 1:30 PM EDT Office Visit Hematology/Oncology at [address] [phone] Thomas Curtis MD [facility] [place] [address] Fiordaliza Downing APRN [facility] [place] [address] 12/26/2023 9:00 AM EDT Appointment [place] [address] Thomas Curtis MD [facility] [place] [address] 02/09/2024 8:00 AM EST Appointment [place] [address] Thomas Curtis MD [facility] HEMATOLOGY [place] [address] 03/18/2024 3:00 PM EST Office Visit Cardiology at [address] [phone] Sameer Rudolph MD [facility] [place] [address] 03/22/2024 9:00 AM EST Appointment Nuclear Medicine at [place] [phone] Thomas Curtis MD [facility] [place] [address] 08/23/2024 Hospital Encounter Main Operating Room [place] [phone] True Juarez MD [facility] [place] [address] Scheduled Procedures Name Priority Associated Diagnoses Date/Ti [...] Understanding Patient Facing Action Plan Christy Bravo, [facility] Note: The patient? s goal is to continue positive results of oral chemotherapy by maintaining improved labs (PSA) or stable scans in clinic for the upcoming year. documented as of this encounter Results * (ABNORMAL) Urine culture Clean Catch Urine (08/18/2023 8:14 AM EDT) Urine Culture 50,000-99,000 cfu/ml Coagulase Negative Staph, not S. saprophyticus Susceptibility testing not routinely performed for Coagulase Negative Staphylococcus species and other Gram Positive organisms from urine. (A) [facility] Organism Coagulase Negative Staph, not S. saprophyticus(A) [facility] Clean Catch Urine 08/18/2023 8:14 AM EDT 08/18/2023 10:14 AM EDT Narrative Resulting Agency Comment Spec In Lab True Juarez MD MICROBIOLOGY - GEN ERAL ORDERABLES [facility] [place] [address] documented in this encounter Visit Diagnoses Diagnosis Hydronephrosis with ureteral stricture, not elsewhere classified documented in this encounter Care Teams Payroll Assistant Relationship Specialty Start Date End Date Nicolasa Valenzuela PA [address] [place] [address] PCP - General Family Medicine 12/20/21 documented as of this encounter
--- OUTSIDE RECORDS SUMMARY | 2023-10-16 03:10 | XMS_ITS | Encounter Summary ---
Author Organization [facility] Address [facility] [place] [address] Care Team Providers Care Contact Center Agent Name Role Phone Nicolasa Valenzuela Primary Care Pro vider Encounter Details Date Type Department Care Team (Late st Contact Info) Description 07/04/2023 Orders Only Hematology/Oncology at [address] [phone] Thomas Curtis MD [facility] HEMATOLOGY [place] [address] Social History Tobacco Use Types Packs/Day Years Used Date Smoking Tobacco: Never Smokeless Tobacco: Never Alcohol Use Standard Drinks/Week Comments Not Currently 0 (1 standard drink = 0.6 oz pur e alcohol) [facility] Utilities Answer Date Recorded In the past 12 months has [employer], gas, oil, or water [employer] threatened to shut off services in your [...] 2:30 PM EDT Office Visit Hematology/Oncology at [address] [phone] Fiordaliza Downing APRN [facility] DR [place] [address] 11/10/2023 9:00 AM EDT Appointment [place] [phone] Thomas Curtis MD [facility] HEMATOLOGY [place] [address] 11/21/2023 11:00 AM EDT Infusion Hematology Oncology at [address] [phone] 12/05/2023 1:30 PM EDT Office Visit Hematology/Oncology at [address] [phone] Thomas Curtis MD [facility] HEMATOLOGY [place] [address] Fiordaliza Downing APRN [facility] DR [place]ICAL [place] [address] 12/26/2023 9:00 AM EDT Appointment [place] [phone] Thomas Curtis MD [facility] HEMATOLOGY [place] [address] 02/09/2024 8:00 AM EST Appointment [place] [phone] Thomas Curtis MD [facility] HEMATOLOGY [place] [address] 03/18/2024 3:00 PM EST Office Visit Cardiology at [address] [place] [phone] Sameer Rudolph MD [facility] [place] [address] 03/22/2024 9:00 AM EST Appointment [place] [phone] Thomas Curtis MD [facility] HEMATOLOGY [place] [address] 08/23/2024 Hospital Encounter Main Operating Room [facility] [place] [address] True Juarez MD [facility] [place] [address] Scheduled Procedures Name Priority Associated Diagnoses Date/Ti [...] on filedocumented in this encounter Care Teams Contact Center Agent Relationship Specialty Start Date End Date Nicolasa Valenzuela PA [address] [place] [address] PCP - General Family Medicine 12/20/21 documented as of this encounter
--- OUTSIDE RECORDS SUMMARY | 2023-10-16 03:10 | XMS_ITS | Encounter Summary ---
Author Organization [facility] Address [facility] [place] [address] Care Team Providers Care Executive Coordinator Name Role Phone Nicolasa Valenzuela Primary Care Pro vider Reason for Visit * Reason Onset Date Comments Results 08/07/2023 Encounter Details Date Type Department Care Team (Late st Contact Info) Description 08/07/2023 Telephone Cardiology at [address] [place] [address] Sameer Rudolph MD [facility] [place] [address] Results Social History Tobacco Use Types Packs/Day Years Used Date Smoking Tobacco: Never Smokeless Tobacco: Never Alcohol Use Standard Drinks/Week Comments Not Currently 0 (1 standard drink = 0.6 oz pur e alcohol) [facility] Utilities Answer Date Recorded In the past 12 months has [employer], gas, oil, or water [employer] threatened to shut off services in your [...] place to sleep or slept in a mcc (including now)? No 04/14/2023 DH IPV Inpatient [...] Telephone Encounter - Roxi Burleson RN - 08/07/2023 1:35 PM EDT ----- Message from Sameer Rudolph sent at 08/07/2023 12:02 PM EDT ----- Good news! LV looks simialr to what it was prior to the heart attack. Thus, while not completely normal (LVEF mildly reduced), this likely represents his baseline. Does not require more medications at this time FUV as planned documented in this encounter Plan of Treatment Upcoming Encounters Date Type Department Care Team (Late st Contact Info) Description 10/16/2023 2:30 PM EDT Office Visit Hematology/Oncology at [address] [phone] Fiordaliza Downing APRN [facility] [place] [address] 11/10/2023 9:00 AM EDT Appointment [place] [address] Thomas Curtis MD [facility] HEMATOLOGY [place] [address] 11/21/2023 11:00 AM EDT Infusion Hematology Oncology at [address] [phone] 12/05/2023 1:30 PM EDT Office Visit Hematology/Oncology at [address] [phone] Thomas Curtis MD [facility] HEMATOLOGY [place] [address] Fiordaliza Downing APRN [facility] [place] [address] 12/26/2023 9:00 AM EDT Appointment [place] [address] Thomas Curtis MD [facility] HEMATOLOGY [place] [address] 02/09/2024 8:00 AM EST Appointment [place] [address] Thomas Curtis MD [facility] HEMATOLOGY [place] [address] 03/18/2024 3:00 PM EST Office Visit Cardiology at [address] [place] [address] Sameer Rudolph MD [facility] [place] [address] 03/22/2024 9:00 AM EST Appointment [place] [address] Thomas Curtis MD [facility] HEMATOLOGY AND ONCOLOGY [place], [place] [phone] 08/23/2024 Hospital Encounter [place] [phone] True Juarez MD [facility] UROLOGY [place], [place] [phone] Scheduled Procedures Name Priority Associated Diagnoses Date/Ti [...] on filedocumented in this encounter Care Teams Executive Coordinator Relationship Specialty Start Date End Date Nicolasa Valenzuela PA [address] [place] [address] PCP - General Family Medicine 12/20/21 documented as of this encounter
--- OUTSIDE RECORDS SUMMARY | 2023-10-16 03:10 | XMS_ITS | Encounter Summary ---
Author Organization [facility] Address [facility] [place] [address] Care Team Providers Care Pinball Machine Repairer Name Role Phone Nicolasa Valenzuela Primary Care Pro vider Encounter Details Date Type Department Care Team (Late st Contact Info) Description 08/21/2023 [place] [address] Carole Avalos MD [facility] [address] Social History Tobacco Use Types Packs/Day Years Used Date Smoking Tobacco: Never Smokeless Tobacco: Never Alcohol Use Standard Drinks/Week Comments Not Currently 0 (1 standard drink = 0.6 oz pur e alcohol) [facility] Utilities Answer Date Recorded In the past 12 months has [employer], gas, oil, or water [employer] threatened to shut off services in your [...] PM EDT Office Visit Hematology/Oncology at [address] [phone] Fiordaliza Downing APRN [facility] [place] [address] 11/10/2023 9:00 AM EDT Appointment [place] [address] Thomas Curtis MD [facility] [place] [address] 11/21/2023 11:00 AM EDT Infusion Hematology Oncology at [address] [phone] 12/05/2023 1:30 PM EDT Office Visit Hematology/Oncology at [address] [phone] Thomas Curtis MD [facility] [place] [address] Fiordaliza Downing APRN [facility] [place] [address] 12/26/2023 9:00 AM EDT Appointment [place] [phone] Thomas Curtis MD [facility] [place] [address] 02/09/2024 8:00 AM EST Appointment [place] [phone] Thomas Curtis MD [facility] [place] [address] 03/18/2024 3:00 PM EST Office Visit Cardiology at [address] [place] [phone] Sameer Rudolph MD [facility] [place] [address] 03/22/2024 9:00 AM EST Appointment [place] [phone] Thomas Curtis MD [facility] [place] [address] 08/23/2024 Hospital Encounter [place] [address] True Juarez MD [facility] [place] [address] Scheduled Procedures Name Priority Associated Diagnoses Date/Ti [...] Understanding Patient Facing Action Plan Christy Bravo, [facility] Note: The patient? s goal is to continue positive results of oral chemotherapy by maintaining improved labs (PSA) or stable scans in clinic for the upcoming year. documented as of this encounter Visit Diagnoses Not on filedocumented in this encounter Care Teams Pinball Machine Repairer Relationship Specialty Start Date End Date Nicolasa Valenzuela PA [address] [place] [address] PCP - General Family Medicine 12/20/21 documented as of this encounter
--- OUTSIDE RECORDS SUMMARY | 2023-10-16 03:10 | XMS_ITS | Encounter Summary ---
Author Organization [facility] [place] [address] Care Team Providers Care Physical Scientist Name Role Phone Nicolasa Valenzuela Primary Care Pro vider Reason for Referral * Diagnostic Test (Routine) - Closed Specialty Diagnoses / Procedures Referred By Conttrinity t Referred To Contact Radiology Diagnoses Prostate cancer metastatic to multiple sites Procedures NM PET CT PSMA Prostate (Illuccix) Thomas Curtis MD [facility] DR HEMATOLOGY [place] [address] [place] [address] Referral ID Status Reason Start Date Expiration Date V isits Requested Visits Authorized [id number] Closed Specialty Service Requested 05/23/2023 11/22/2024 1 1 Reason for Visit * Diagnostic Test (Routine) - Closed Specialty Diagnoses / Procedures Referred By Conttrinity t Referred To Contact Radiology Diagnoses Prostate cancer metastatic to multiple sites Procedures NM PET CT PSMA Prostate (Illuccix) Thomas Curtis MD [facility] HEMATOLOGY [place] [address] [place] [address] Referral ID Status Reason Start Date Expiration Date V isits Requested Visits Authorized [id number] Closed Specialty Service Requested 05/23/2023 11/22/2024 1 1 Encounter Details Date Type Department Care Team (Latest Contact Info) Description 06/22/2023 6:12 AM EDT - 06/22/2023 11:59 PM EDT Hospital Encounter [place] [address] Thomas Curtis MD [facility] DR HEMATOLOGY [place] [address] Prostate cancer metastatic to multiple sites Discharge Disposition: Home Social History Tobacco Use Types Packs/Day Years Used Date Smoking Tobacco: Never Smokeless Tobacco: Never Alcohol Use Standard Drinks/Week Comments Not Currently 0 (1 standard drink = 0.6 oz pur e alcohol) [facility] Utilities Answer Date Recorded In the past 12 months has th e [employer], gas, oil, or water April[employer] threatened to shut off services in your [...] 150 mcg by mouth daily. HYDROcodone-acetamino phen (Pelzer) 5-325 mg tablet Take 1 tablet by [...] 2:30 PM EDT Office Visit Hematology/Oncology at [address] [phone] Fiordaliza Downing APRN [facility] [place] [address] 11/10/2023 9:00 AM EDT Appointment [place] [address] Thomas Curtis MD [facility] HEMATOLOGY [place] [address] 11/21/2023 11:00 AM EDT Infusion Hematology Oncology at [address] [phone] 12/05/2023 1:30 PM EDT Office Visit Hematology/Oncology at [address] [phone] Thomas Curtis MD [facility] HEMATOLOGY [place] [address] Fiordaliza Downing APRN [facility] [place] [address] 12/26/2023 9:00 AM EDT Appointment [place] [address] Thomas Curtis MD [facility] HEMATOLOGY [place] [address] 02/09/2024 8:00 AM EST Appointment [place] [address] Thomas Curtis MD [facility] HEMATOLOGY [place] [address] 03/18/2024 3:00 PM EST Office Visit Cardiology at [address] [place] [address] Sameer Rudolph MD [facility] [place] [address] 03/22/2024 9:00 AM EST Appointment [place] [address] Thomas Curtis MD [facility] HEMATOLOGY [place] [address] 08/23/2024 Hospital Encounter [place] [address] True Juarez MD [facility] UROLOGY [place], [place] [phone] Scheduled Procedures Name Priority Associated Diagnoses Date/Ti me CYSTO, STENT PLACEMENT (WRVU 2.82) Hydronephrosis with ureteral stricture, not elsewhere classified CYSTO, REMOVAL OF STENT, FOR EIGN BODY OR CALCULUS, SIMPLE (WRVU 2.81) Hydronephrosis with ureteral stricture, not elsewhere classified documented as of this encounter Goals Goal Patient Goal Type Associated Problems Recent Progress Patient-Stated? Author DH [place] Medication Compliance and Understanding Patient Facing Action Plan Christy Bravo, [facility] Note: The patient? s [...] (Illuccix) (06/22/2023 8:01 AM EDT) WORKSTATION ID [id number] RAD Anatomical Region Laterality Modality Positron Emissio [...] Thank you for referring this patient to [facility]. Thank you for letting us participate in the care of this patient. ??If you are a health care provider and have any questions regarding this report, please contact the number below. ??For patients who have questions please contact the health physician locums urgent care that requested your imaging first. ? Electronically signed by: Tim Levine MD, [facility] ([phone]), at 06/22/2023 4:26 PM Narrative 06/22/2023 4:26 [...] avid foci in the Gerota's fascia bilaterally ([id number] and [id number]). Increased activity in the right [...] Thank you for referring this patient to [facility]. Thank you for letting us participate in the care of this patient. If youare a health care provider and have any questions regarding this report,please contact the number below. For patients who have questions please contactthe health physician locums urgent care that requested your imaging first. Thomas Curtis MD IMG PET ORDERABLES documented in this encounter Visit Diagnoses Diagnosis Prostate cancer metastatic to multiple sites Malignant neoplasm of prostate documented in this encounter Administered Medications Inactive Administered Medications - up to 3 most recent administrations Medication Order MAR Action Action Date Dose Rate Site Ga 68 psma-11 (Illuccix) injection 4-10 mCi 4-10 mCi, Intravenous, ONCE, 1 dose, On Emely 06/22/23 at 0715, Radiology Contrast, Routine Given 06/22/2023 6:31 AM EDT 4.6 mCi Right Arm documented in this encounter Care Teams Physical Scientist Relationship Specialty Start Date End Date Nicolasa Valenzuela PA [address] [place] [address] PCP - General Family Medicine 12/20/21 documented as of this encounter
--- OUTSIDE RECORDS SUMMARY | 2023-10-16 03:10 | XMS_ITS | Encounter Summary ---
Author Organization [facility] Address [facility] [place] [address] Care Team Providers Care Loading Dock Hand Name Role Phone Nicolasa Valenzuela Primary Care Pro vider Encounter Details Date Type Department Care Team (Late st Contact Info) Description 07/04/2023 Telephone Hematology Oncology at [address] [phone] Alexsandra Maurice RN Social History Tobacco Use Types Packs/Day Years Used Date Smoking Tobacco: Never Smokeless Tobacco: Never Alcohol Use Standard Drinks/Week Comments Not Currently 0 (1 standard drink = 0.6 oz pur e alcohol) [facility] Utilities Answer Date Recorded In [...] Telephone Encounter - Alexsandra Maurice RN - 07/04/2023 4:39 PM EDT Pt updated on this. He and also wanted Dr Curtis to know he is getting second opinion at [facility]. He is aware of first scheduled Pluvicto treatments. ----- Message from Cara Pham RN sent at 07/04/2023 4:04 PM EDT ----- Regarding: RE: questions about type of cancer He has adenocarcinoma of prostate most common type. No missy score was done as it can only be done off the prostate tissue which was negative when they did trus biopsy, we got his diagnosis off a lymph node missy cannot be done. And missy cannot be done now that we have started treatment. Per Thomas love ----- Message ----- From: Elizabeth Rodriguez Sent: 06/30/2023 11:04 AM EDT To: Robby [facility] Onc Nurse Subject: questions about type of cancer Bill is going through his records and was wondering if you might be able to tell him the following info 1) What type of prostate cancer he has 2) Dysart score He said it's okay to leave a voicemail [phone] documented in this encounter Plan of Treatment Upcoming Encounters Date Type Department Care Team (Late st Contact Info) Description 10/16/2023 2:30 PM EDT Office Visit Hematology/Oncology at [address] [phone] Fiordaliza Downing APRN [facility] [place] [address] 11/10/2023 9:00 AM EDT Appointment [place] [address] Thomas Curtis MD [facility] DR [place] [address] 11/21/2023 11:00 AM EDT Infusion Hematology Oncology at [address] [phone] 12/05/2023 1:30 PM EDT Office Visit Hematology/Oncology at [address] [phone] Thomas Curtis MD [facility] DR [place] [address] Fiordaliza Downing APRN [facility] [place] [address] 12/26/2023 9:00 AM EDT Appointment [place] [address] Thomas Curtis MD [facility] [address] [place] [address] 02/09/2024 8:00 AM EST Appointment [place] [address] Thomas Curtis MD [facility] [place] [address] 03/18/2024 3:00 PM EST Office Visit Cardiology at [address] [phone] Sameer Rudolph MD [facility] [place] [address] 03/22/2024 9:00 AM EST Appointment Nuclear Medicine at [place] [phone] Thomas Curtis MD [facility] [place] [address] 08/23/2024 Hospital Encounter Main Operating Room [place] [phone] True Juarez MD [facility] [place] [address] Scheduled Procedures Name Priority Associated Diagnoses Date/Ti [...] Facing Action Plan Christy Bravo, [facility] Note: The patient? s goal is to continue positive results of oral chemotherapy by maintaining improved labs (PSA) or stable scans in clinic for the upcoming year. documented as of this encounter Visit Diagnoses Not on filedocumented in this encounter Care Teams Loading Dock Hand Relationship Specialty Start Date End Date Nicolasa Valenzuela PA [address] [place] [address] PCP - General Family Medicine 12/20/21 documented as of this encounter
--- OUTSIDE RECORDS SUMMARY | 2023-10-16 03:10 | XMS_ITS | Encounter Summary ---
[place] [address] Care Team Providers Care Avid Editor Name Role Phone Nicolasa Valenzuela Primary Care Pro vider Reason for Referral * Consultation (Urgent) - Authorized Specialty Diagnoses / Procedures Referred By Toño mayorga Referred To Contact Urology Diagnoses Crossing vessel and stricture of ureter without hydronephrosis Estefany Jasso MD [address] [place] [address] [facility] [place] [address] Referral ID Status Reason Start Date Expiration Date Visits Requested Visits Authorized [id number] Authorized Consult, Test & Treat PCP Updated and/or Approved 06/05/2023 06/04/2024 6 6 Encounter Details Date Type Department Care Team (Late st Contact Info) Description 06/05/2023 Transcribe Orders eDH Incoming Referrals [phone] Estefany Jasso MD [address] [place] [address] Crossing vessel and stricture of ureter without hydronephrosis Social History Tobacco Use Types Packs/Day Years Used Date Smoking Tobacco: Never Smokeless Tobacco: Never Alcohol Use Standard Drinks/Week Comments Not Currently 0 (1 standard drink = 0.6 oz pur e alcohol) [facility] Utilities Answer Date Recorded In [...] PM EDT Office Visit Hematology/Oncology at [address] [phone] Fiordaliza Downing APRN [facility] [place] [address] 11/10/2023 9:00 AM EDT Appointment [place] [address] Thomas Curtis MD [facility] HEMATOLOGY [place] [address] 11/21/2023 11:00 AM EDT Infusion Hematology Oncology at [address] [phone] 12/05/2023 1:30 PM EDT Office Visit Hematology/Oncology at [address] [phone] Thomas Curtis MD [facility] HEMATOLOGY [place] [address] Fiordaliza Downing APRN [facility] [place] [address] 12/26/2023 9:00 AM EDT Appointment [place] [address] Thomas Curtis MD [facility] HEMATOLOGY [place] [address] 02/09/2024 8:00 AM EST Appointment [place] [phone] Thomas Curtis MD [facility] HEMATOLOGY [place] [address] 03/18/2024 3:00 PM EST Office Visit Cardiology at [address] [place] [address] Sameer Rudolph MD [facility] [place] [address] 03/22/2024 9:00 AM EST Appointment [place] [address] Thomas Curtis MD [facility] HEMATOLOGY [place] [address] 08/23/2024 Hospital Encounter [place] [address] True Juarez MD [facility] [place] [address] Scheduled Procedures Name Priority Associated Diagnoses Date/Ti me CYSTO, STENT PLACEMENT (WRVU 2.82) Hydronephrosis with ureteral stricture, not elsewhere classified CYSTO, REMOVAL OF STENT, FOR EIGN BODY OR CALCULUS, SIMPLE (WRVU 2.81) Hydronephrosis with ureteral stricture, not elsewhere classified Scheduled Referrals Name Type Priority Associated Diagnoses Orde r Schedule Referral to Urology Outpatient Referral Urgent Crossing vessel and stricture of ureter without hydronephrosis Ordered: 06/05/2023 documented as of this encounter Goals Goal Patient Goal Type Associated Problems Recent Progress Patient-Stated? Author DH Home Medication Compliance and Understanding Patient Facing Action Plan Christy Bravo [facility] Note: The patient? s goal is to continue positive results of oral chemotherapy by maintaining improved labs (PSA) or stable scans in clinic for the upcoming year. documented as of this encounter Visit Diagnoses Diagnosis Crossing vessel and stricture of ureter without hydronephrosis Stricture or kinking of ureter documented in this encounter Care Teams Avid Editor Relationship Specialty Start Date End Date Nicolasa Valenzuela PA [address] [place] [address] PCP - General Family Medicine 12/20/21 documented as of this encounter
--- OUTSIDE RECORDS SUMMARY | 2023-10-16 03:10 | XMS_ITS | Encounter Summary ---
Author Organization [facility] [place] [address] Care Team Providers Care Fur Blower Name Role Phone Nicolasa Valenzuela Primary Care Pro vider Reason for Referral * Diagnostic Test (Routine) - Authorized Specialty Diagnoses / Procedures Referred By Contac t Referred To Contact Radiology Diagnoses Prostate cancer Procedures Thomas Pickett MD [facility] [address] [place] [address] [place] [address] Referral ID Status Reason Start Date Expiration Date Visits Requested Visits Authorized [id number] Authorized Specialty Service Requested 06/27/2023 12/27/2024 1 1 * Diagnostic Test (Routine) - Authorized Specialty Diagnoses / Procedures Referred By Contac t Referred To Contact Radiology Diagnoses Prostate cancer Procedures Thomas Pickett MD [facility] [place] [address] [place] [address] Referral ID Status Reason Start Date Expiration Date Visits Requested Visits Authorized [id number] Authorized Specialty Service Requested 06/27/2023 12/27/2024 1 1 * Diagnostic Test (Routine) - Closed Specialty Diagnoses / Procedures Referred By Contac t Referred To Contact Radiology Diagnoses Prostate cancer Procedures Thomas Pickett MD [facility] DR [place] [address] [place] [address] Referral ID Status Reason Start Date Expiration Date V isits Requested Visits Authorized [id number] Closed Specialty Service Requested 06/27/2023 12/27/2024 1 1 * Diagnostic Test (Routine) - Closed Specialty Diagnoses / Procedures Referred By Contac t Referred To Contact Radiology Diagnoses Prostate cancer Procedures Thomas Pickett MD [facility] DR [place] [address] [place] [address] Referral ID Status Reason Start Date Expiration Date V isits Requested Visits Authorized [id number] Closed Specialty Service Requested 06/27/2023 12/27/2024 1 1 * Diagnostic Test (Routine) - Authorized Specialty Diagnoses / Procedures Referred By Contac t Referred To Contact Radiology Diagnoses Prostate cancer Procedures Thomas Pickett MD [facility] DR [place] [address] [place] [address] Referral ID Status Reason Start Date Expiration Date Visits Requested Visits Authorized [id number] Authorized Specialty Service Requested 06/27/2023 12/27/2024 1 1 * Diagnostic Test (Routine) - Authorized Specialty Diagnoses / Procedures Referred By Contac t Referred To Contact Radiology Diagnoses Prostate cancer Procedures NM Pluvicto Thomas Branch MD [facility] DR [place] [address] [facility] [place] [address] Referral ID Status Reason Start Date Expiration Date Visits Requested Visits Authorized [id number] Authorized Specialty Service Requested 06/27/2023 12/27/2024 1 1 Encounter Details Date Type Department Care Team (Late st Contact Info) Description 06/27/2023 9:00 AM EDT Office Visit Hematology/Oncology at [address] [phone] Thomas Branch MD [facility] DR [place] [address] Fiordaliza Downing APRN [facility] [place] [address] Prostate cancer Social History Tobacco Use Types Packs/Day Years Used Date Smoking Tobacco: Never Smokeless Tobacco: Never Alcohol Use Standard Drinks/Week Comments Not Currently 0 (1 standard drink = 0.6 oz pur e alcohol) [facility] Utilities Answer Date Recorded In [...] place to sleep or slept in a custodial (including now)? No 04/14/2023 DH IPV Inpatient [...] Sign Reading Time Taken Comments Blood Pressure 109/53 06/27/2023 9:07 AM EDT Pulse 83 06/27/2023 9:07 AM EDT Temperature 36.1 ??C (97 ??F) 06/27/2023 9:07 AM EDT Respiratory Rate 18 06/27/2023 9:07 AM EDT Oxygen Saturation 100% 06/27/2023 9:07 AM EDT Inhaled Oxygen Concentration - - Weight 80.7 kg (178 lb) 06/27/2023 9:07 AM EDT Height - - Body Mass Index 25.37 05/23/2023 8:59 AM EDT documented in this encounter Progress Notes * Thomas Branch MD - 06/27/2023 9:00 AM EDT Images from the original note [...] Abiraterone with Pred added 11/17/2022 Interval history:Huber Kennedy Génesissavana is in clinic for follow-up on metastatic prostate cancer and discussion on restaging PSMA PET scan. Overall, he feels well. He denies any new pain complaints on the skin or rash . He continues with cardiac rehab. Denies any chest pain. Leg swelling Stable. 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 Retroperitoneal lymphadenopathy Hydronephrosis MEDS: Medications 05/23/23 0901 Medication Sig Taking? aspirin 81 mg chewable tablet Take 81 mg by mouth daily. clopidogreL (Plavix) 75 mg tablet Take 1 tablet by mouth daily. nitroGLYcerin (Nitrostat) 0.[address] 1 tablet under the tongue every 5 minutes as needed for Chest pain. Patient not taking: Reported on 05/23/2023 tamsulosin (Flomax) 0.4 mg capsule Take 0.4 mg by mouth daily. acetaminophen (Tylenol) 325 mg tablet Take 650 mg by mouth 3 times daily. levothyroxine (Synthroid) 150 mcg tablet Take 150 mcg by mouth daily. HYDROcodone-acetaminophen ([place]) 5-325 mg tablet Take 1 tablet by mouth every 6 hours as needed for Pain. atorvastatin (Lipitor) 40 mg tablet Take 1 tablet by mouth daily. cholecalciferol (Vitamin D3) 1,000 unit tablet Take 1 tablet by mouth daily. Lantus Solostar U-100 Insulin 100 unit/mL (3 mL) pen Inject 8 Units subcutaneously daily. Patient taking differently: Inject 8-10 Units subcutaneously daily. 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 He is here with his friend today who is a breast cancer survivor and runs a local support group. He lives in [place], [place]. 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 General: NAD Head: NCAT Eyes: Not icteric, [...] Lymphoid tissue is not readily identified. LABS: 06/20/2023 sodium 134, potassium 4.9, BUN 42, [...] platelet count 330, ANC 3.76 PSA testosteron 06/20/23 52.8 <7.0 05/16/23 29.8 <7 03/21/23 [...] twice daily Efficacy was based on ARASENS ([id number]), a randomized, multicenter, double- blind, placebo-controlled clinical trial in 1306 patients with mHSPC. Patients were randomized to receive either darolutamide 600 mg orally twice daily plus docetaxel 75 mg/m2 intravenously administered every 3 weeks forup to 6 cycles or docetaxel plus placebo. All patients received a gonadotropin-releasing hormone analog concurrently or had a bilateral orchiectomy. The primary efficacy measure was overall survival (OS). Qcia-hq-hwfp progression was an additional efficacy measure. Median OS was not reached (NR) (95% CI: NR, NR) in the darolutamide plus docetaxelarm and 48.9 months (95% CI: 44.4, NR) in docetaxel plus placebo arm (HR 0.68; 95% CI: 0.57, 0.80; p<0.0001). Treatment with darolutamide and docetaxel resulted in a statistically significant delay in kdvm-vz-mynf progression (HR 0.79; 95% CI: 0.66, 0.95; [...] and hypocalcemia. The recommended darolutamide dose for SPC is 600 mg (two 300 mg tablets) [...] about 3 weeks 05/23/2023 Mr. Keys developed OR and underwent to cardiac catheterization with total [...] be the safest option in regards to cardiomyopathy/OR/congestive heart failure. All questions were answered to patient satisfaction. He is interested to proceed to Pluvicto. He would like to start an antibiotic surgery on due to his travel plans and his daughter wedding. # Germline and somatic mutation testing: No drug Mentation today with has been referred to familial cancer program, will do 170 gene panel testing and MMR testing # Cardiomyopathy had OR on April 12, 2023, underwent two PCIs with 4 stent placement : Follows with Dr. Rudolph #Port placement: per patient request. Referral sent to [facility] which is more convenient for Bill. #CKD: Creatinine is 1.7, stable Had bilateral stent placed. Next ureteral stent replacement p in July 2023. Chronic, creatinine is elevated at 1.8 which is overall stable. Follows with PCP. Plan: Start Pluvicto after August 15, 2023 Continue Lupron 22.5 mg every 3 months 3. Next visit with MD with CBC, CMP, PSA, testosterone and lupron on August 21 THOMAS BRANCH MD All questions were answered and patient verbalized understanding and no further questions. This encounter was primarily counseling-based (>50 % of total time) with total time of 60 minutes, of which 45 minutes was spent with the patient/family discussing: [...] 2:30 PM EDT Office Visit Hematology/Oncology at [address] [phone] Fiordaliza Downing APRN [facility] [place] [address] 11/10/2023 9:00 AM EDT Appointment [place] [address] Thomas Branch MD [facility] DR [place] [address] 11/21/2023 11:00 AM EDT Infusion Hematology Oncology at [address] [phone] 12/05/2023 1:30 PM EDT Office Visit Hematology/Oncology at [address] [phone] Thomas Branch MD [facility] [place] [address] Fiordaliza Downing APRN [facility] [place] [address] 12/26/2023 9:00 AM EDT Appointment [place] [phone] Thomas Branch MD [facility] [place] [address] 02/09/2024 8:00 AM EST Appointment [place] [phone] Thomas Branch MD [facility] [place] [address] 03/18/2024 3:00 PM EST Office Visit Cardiology at [address] [phone] Sameer Rudolph MD [facility] [place] [address] 03/22/2024 9:00 AM EST Appointment [place] [phone] Thomas Branch MD [facility] [place] [address] 08/23/2024 Hospital Encounter [place] [phone] True Juarez MD [facility] [address] Scheduled Orders Name Type Priority Associated Diagnoses Orde r Schedule CBC (with Diff) Lab Routine Prostate cancer Every 6 weeks for 6 Occurrences starting 06/27/2023 until 06/26/2024, 1 completed Comprehensive metabolic panel (non-fasting) Lab Routine Prostate cancer Every 6 weeks for 6 Occurrences starting 06/27/2023 until 06/26/2024, 1 completed NM Pluvicto Imaging Routine Prostate cancer Expected: 06/27/2023 (Approximate), Expires: 12/27/2023 NM Pluvicto Imaging Routine Prostate cancer Expected: 06/27/2023 (Approximate), Expires: 12/27/2023 NM Pluvicto Imaging Routine Prostate cancer Expected: 02/09/2024 (Approximate), Expires: 03/05/2024 NM Pluvicto Imaging Routine Prostate cancer Expected: 03/22/2024 (Approximate), Expires: 04/05/2024 Scheduled Procedures Name Priority Associated Diagnoses Date/Ti me CYSTO, STENT PLACEMENT (WRVU 2.82) Hydronephrosis with ureteral stricture, not elsewhere classified CYSTO, REMOVAL OF STENT, FOR EIGN BODY OR CALCULUS, SIMPLE (WRVU 2.81) Hydronephrosis with ureteral stricture, not elsewhere classified documented as of this encounter Goals Goal Patient Goal Type Associated Problems Recent Progress Patient-Stated? Author [facility] Medication Compliance and Understanding Patient Facing Action Plan Christy Bravo, [facility] Note: The patient? s goal is to continue positive results of oral chemotherapy by maintaining improved labs (PSA) or stable scans in clinic for the upcoming year. documented as of this encounter Results * NM Pluvicto (09/29/2023 9:27 AM EDT) WORKSTATION ID [id number] RAD Anatomical Region Laterality Modality Nuclear Medicine [...] who have questions please contact the health child care team lead that requested your imaging first. ? Narrative [...] patients who have questions please contactthe health child care team lead that requested your imaging first. Thomas Branch MD [facility] NM ORDERABLES * (ABNORMAL) Comprehensive metabolic panel (non-fasting) (09/27/2023 12:18 PM EDT) Glucose 134 65 - 199 mg/dL [facility] Comment:Diabetes: >=200 mg/d L plus symptoms Blood Urea Nitrogen 37(H) 10 - 20 mg/dL [facility] Creatinine 1.80(H) 0.80 - 1.50 mg/dL [facility] Sodium 135 135 - 145 mmol/L [facility] Potassium 4.8 3.5 - 5.0 mmol/L [facility] Comment: Please note: ??Patients with WBC >100,000 may have falsely elevated Potassium levels. ??For accurate Potassium quantification in these patients send serum separator tube (gold top) for subsequent determinations. ??Contact the Clinical Chemistry Laboratory if there are any questions. Chloride 104 98 - 107 mmol/L [facility] Carbon Dioxide 20(L) 22 - 31 mmol/L [facility] Anion Gap 11 5 - 15 mmol/L [facility] Calcium 9.8 8.5 - 10.5 mg/dL [facility] Protein, Total 7.7 6.1 - 8.0 g/dL [facility] Albumin 3.7 3.2 - 5.2 g/dL [facility] Aspartate Aminotransferase 21 0 - 39 unit/L [facility] Alanine Aminotransferase 11 0 - 55 unit/L [facility] Alkaline Phosphatase 79 40 - 130 unit/L [facility] Bilirubin, Total 0.2 0.2 - 1.3 mg/dL [facility] Est Glomerular Filtration Rate 40(L) >=60 mL/min/1. 73 m?? [facility] Comment: This patient's estimated [...] Resulting Agency Comment Spec In Lab Thomas Branch MD CHEMISTRY ORDERABLES Performing Organization Address City/State/[facility] Co de Phone Number [facility] [place] [address] * NM Pluvicto (08/18/2023 9:22 AM EDT) WORKSTATION ID [id number] [facility] Anatomical Region Laterality Modality Nuclear Medicine Impressions 08/18/2023 12:11 PM EDT Lutetium Kate-177 vipivotide tetraxetan (Pluvicto) administered without complication. Thank you for letting us participate in the care of this patient. ??If you are a health care provider and have any questions regarding this report, please contact the number below. ??For patients who have questions please contact the health child care team lead that requested your imaging first. ? Narrative [...] patients who have questions please contactthe health child care team lead that requested your imaging first. Thomas Branch MD [facility] ORDERABLES documented in this encounter Visit Diagnoses Diagnosis Prostate cancer Malignant neoplasm of prostate Prostate cancer Malignant neoplasm of prostate Prostate cancer Malignant neoplasm of prostate documented in this encounter Care Teams Fur Blower Relationship Specialty Start Date End Date Nicolasa Valenzuela PA [address] [place] [address] PCP - General Family Medicine 12/20/21 documented as of this encounter
--- OUTSIDE RECORDS SUMMARY | 2023-10-16 03:10 | XMS_ITS | Encounter Summary ---
Author Organization [facility] Address [facility] [place] [address] Care Team Providers Care Transit Mechanic Name Role Phone Nicolasa Valenzuela Primary Care Pro vider Encounter Details Date Type Department Care Team (Latest Contact Info) Description 08/15/2023 8:00 AM EDT TH Visit (TeleHealth) [place]ology [place] [phone] Enmanuel Moralez, [facility] Prostate cancer metastatic to multiple sites Social History Tobacco Use Types Packs/Day Years Used Date Smoking Tobacco: Never Smokeless Tobacco: Never Alcohol Use Standard Drinks/Week Comments Not Currently 0 (1 standard drink = 0.6 oz pur e alcohol) [facility] Utilities Answer Date Recorded In the [...] as of this encounter Progress Notes * Enmanuel Moralez, [facility] - 08/15/2023 8:00 AM EDT PATIENT ID: Huber Keys is a 67 y.o. old male with prostate cancer who presents today for Pluvicto teaching and is alone. The plan is for Pluvicto therapy given every 6 weeks for up to 6 dosesor until disease progression or unacceptable toxicity. The following information was reviewed with the patient. Pluvicto Therapy Schedule (every 6 weeks for up to 6 doses): Pluvicto will be infused as an IV gravity infusion. (30 minutes) Expect approximately 1 hour total in the nuclear medicine department. Laboratory Tests: Before each visit with your provider, you will have blood drawn which may include: complete metabolic panel (CMP) and complete blood count (CBC) with differential. You will typically get labs drawn about 3 weeks after each Pluvicto infusion. Provider Visits: You will see either the physician or nurse practitioner before each cycle of Pluvicto. Possible Side Effects Include, but are not limited to: Fatigue Decreased appetite/weight loss Peripheral edema Fever Dry mouth Nausea/Vomiting Constipation/Diarrhea Abdominal pain Anemia Thrombocytopenia Acute kidney injury Urinary tract infection Dizziness Headache Electrolyte abnormalities Increased liver enzymes Pluvicto will expose you to radiation, which can contribute to your long-term radiation exposure. Overall radiation exposure is associated with an increased risk for cancer. Radiation Safety precautions: Include, but are not limited to: Daily showering is recommend for at least 3 days after receiving Pluvicto. You should drink plenty of fluids on the days you receive Pluvicto and the days after. The more youurinate, the faster you will get rid of the radiation from your body. Use the toilet in a seated position (even for men), and use toilet paper each time. For 3 days after Pluvicto flush the toilet twice with the lid down after each use. Wash hands every time you use the toilet. Avoid close contact and try to keep 3 feet distance from people 3 days after getting Pluvicto. Limit contact with children under 10 years old for 7 days after getting Pluvicto. Limit contact with women for 7 days after getting Pluvicto. Sleep in separate beds at least 3 feet apart for 7 days after Pluvicto (15 days for sleeping with women or children). You may return to work 3 days after treatment, unless working with women or children. Plan: Huber was given written information regarding treatment regimen, side effects and management strategies. In addition post infusion precautions were reviewed. he was given an opportunity to ask questions and verbalized understanding of the information and treatment plan. No barriers to learning were identified. Huber was counseled on how to call for any further questions or concerns. Treatment is scheduled to begin on 08/18/23 . Testing/Diagnostics Last labs completed on: 08/04/23 Fertility: You should use effective contraception during Pluvicto treatment and for 14 weeks after the final dose. Pluvicto may cause temporary or permanent infertility. Will f/u with care team re: consent for Monday, if labs from 08/03 OK (I think), and any specific age cut off for children. 30 of this 30 minute face to face encounter was spent in counseling, education and coordination of care. documented in this encounter Plan of Treatment Upcoming Encounters Date Type Department Care Team (Late st Contact Info) Description 10/16/2023 2:30 PM EDT Office Visit Hematology/Oncology at [address] [phone] Fiordaliza Downing APRN [facility] [place] [address] 11/10/2023 9:00 AM EDT Appointment [place] [address] Thomas Curtis MD [facility] [place] [address] 11/21/2023 11:00 AM EDT Infusion Hematology Oncology at [address] [phone] 12/05/2023 1:30 PM EDT Office Visit Hematology/Oncology at [address] [phone] Thomas Curtis MD [facility] [place] [address] Fiordaliza Downing APRN [facility] [place] [place] [address] 12/26/2023 9:00 AM EDT Appointment [place] [address] Thomas Curtis MD [facility] [place] [address] 02/09/2024 8:00 AM EST Appointment [place] [phone] Thomas Curtis MD [facility] [place] [address] 03/18/2024 3:00 PM EST Office Visit Cardiology at [address] [place] [phone] Sameer Rudolph MD [facility] [place] [address] 03/22/2024 9:00 AM EST Appointment [place] [phone] Thomas Curtis MD [facility] [place] [address] 08/23/2024 Hospital Encounter [place] [phone] True Juarez MD [facility] [place] [address] Scheduled Procedures Name Priority Associated Diagnoses Date/Ti [...] Facing Action Plan Christy Bravo, [facility] Note: The patient? s goal is to continue positive results of oral chemotherapy by maintaining improved labs (PSA) or stable scans in clinic for the upcoming year. documented as of this encounter Visit Diagnoses Diagnosis Prostate cancer metastatic to multiple sites Malignant neoplasm of prostate documented in this encounter Care Teams Transit Mechanic Relationship Specialty Start Date End Date Nicolasa Valenzuela PA [address] [place] [address] PCP - General Family Medicine 12/20/21 documented as of this encounter
--- OUTSIDE RECORDS SUMMARY | 2023-10-16 03:11 | XMS_ITS | Encounter Summary ---
Author Organization [facility] Address [facility] [place] [address] Care Team Providers Care Bag Inspector Name Role Phone Nicolasa Valenzuela Primary Care Pro vider Encounter Details Date Type Department Care Team (Late st Contact Info) Description 05/15/2023 Telephone Cardiology at [address] [place] [phone] Sameer Rudolph MD [facility] [place] [address] Social History Tobacco Use Types Packs/Day Years Used Date Smoking Tobacco: Never Smokeless Tobacco: Never Alcohol Use Standard Drinks/Week Comments Not Currently 0 (1 standard drink = 0.6 oz pur e alcohol) [facility] Utilities Answer Date Recorded In the past 12 months has [employer], gas, oil, or water [employer] threatened to shut off services in your [...] Telephone Encounter - Roxi Burleson RN - 05/17/2023 9:11 AM EDT No santacruz message left in voice mail for [facility] medical scheduler Abbi Norris. * Telephone Encounter - Angelika Vega - 05/15/2023 11:49 AM EDT Abbi called because she has a question about scheduling this patients echo. She can put him on July [address] Rudolph If you want it earlier it can be put on July [address] Rodriguez Please call her back @ [phone] documented in this encounter Plan of Treatment Upcoming Encounters Date Type Department Care Team (Late st Contact Info) Description 10/16/2023 2:30 PM EDT Office Visit Hematology/Oncology at [address] [phone] Fiordaliza Downing APRN [facility] [place] [address] 11/10/2023 9:00 AM EDT Appointment [place] [phone] Thomas Curtis MD [facility] [place] [address] 11/21/2023 11:00 AM EDT Infusion Hematology Oncology at [address] [phone] 12/05/2023 1:30 PM EDT Office Visit Hematology/Oncology at [address] [phone] Thomas Curtis MD [facility] [place] [address] Fiordaliza Downing APRN [facility] [address] 12/26/2023 9:00 AM EDT Appointment [place] [phone] Thomas Curtis MD [facility] [place] [address] 02/09/2024 8:00 AM EST Appointment [place] [phone] Thomas Curtis MD [facility] [place] [address] 03/18/2024 3:00 PM EST Office Visit Cardiology at [address] [place] [phone] Sameer Rudolph MD [facility] [place] [address] 03/22/2024 9:00 AM EST Appointment [place] [phone] Thomas Curtis MD [facility] HEMATOLOGY AND ONCOLOGY [place], [place] [phone] 08/23/2024 Hospital Encounter [place] [address] True Juarez MD [facility] [address] Scheduled Procedures Name Priority Associated Diagnoses Date/Ti [...] Action Plan Christy Bravo, [facility] Note: The patient? s goal is to continue positive results of oral chemotherapy by maintaining improved labs (PSA) or stable scans in clinic for the upcoming year. documented as of this encounter Visit Diagnoses Not on filedocumented in this encounter Care Teams Bag Inspector Relationship Specialty Start Date End Date Nicolasa Valenzuela PA [address] [place] [address] PCP - General Family Medicine 12/20/21 documented as of this encounter
--- OUTSIDE RECORDS SUMMARY | 2023-10-16 03:11 | XMS_ITS | Encounter Summary ---
Author Organization [facility] Address [facility] [place] [address] Care Team Providers Care Poultry Hatchery Manager Name Role Phone Nicolasa Valenzuela Primary Care Pro vider Reason for Visit * Reason Comments Coronary Artery Disease Cardiomyopathy Encounter Details Date Type Department Care Team (Latest Contact Info) Description 04/25/2023 9:00 AM EST Office Visit Cardiology at [address] [place] [phone] Sameer Rudolph MD [facility] [place] [address] Cardiomyopathy, unspecified type; ASCVD (arteriosclerotic cardiovascular disease) Social History Tobacco Use Types Packs/Day Years Used Date Smoking Tobacco: Never Smokeless Tobacco: Never Alcohol Use Standard Drinks/Week Comments Not Currently 0 (1 standard drink = 0.6 oz pur e alcohol) [facility] Utilities Answer Date Recorded In the past 12 months has [employer] electric, gas, oil, or water company threatened [...] Sign Reading Time Taken Comments Blood Pressure 98/57 04/25/2023 9:18 AM EST Pulse 64 04/25/2023 9:18 AM EST per e cg Temperature - - Respiratory Rate - - Oxygen Saturation - - Inhaled Oxygen Concentration - - Weight 87.1 kg (192 lb) 04/25/2023 9:18 AM EST Height 177.8 cm (5' 10) 04/25/2023 9:18 AM EST Body Mass Index 27.55 04/25/2023 9:18 AM EST documented in this encounter Progress Notes * Sameer Rudolph MD - 04/25/2023 9:00 AM EST Images from the original note were not included. Subjective: Patient ID: Huber Keys is a 67 y.o. male who presents on follow-up for: Chief Complaint Patient presents with Coronary Artery Disease Cardiomyopathy HPI Last seen by me 11/2022, at which time no changes were made; repeat echocardiogram demonstrated significant improvement in function. Intercurrently, he developed NSTE-ACS, as per problem list. He had chest pain with radiation to theleft arm that di not remit. Had prior episodes lasting 1-2 minutes at a time. CP was associated with dyspnea Since then, he feels much improved, back to good baseline. Reasonable activity is without angina nor untoward dyspnea Has metastatic prostate CA (on darolutamide and docetaxol) Current Outpatient Medications Medication Instructions acetaminophen (TYLENOL) 650 mg, Oral, 3 TIMES DAILY aspirin 81 mg, Oral, DAILY atorvastatin (LIPITOR) 40 mg, Oral, DAILY cholecalciferol (VITAMIN D3) 1,000 Units, Oral, DAILY clopidogreL (PLAVIX) 75 mg, Oral, DAILY HYDROcodone-acetaminophen ([place]) 5-325 mg tablet 1 tablet, Oral, EVERY [...] 80 D1: os 70 3.5 x 26 [place] LCx Os CUSTOMER SUPPORT SPECIALIST 3.0 x 34 [place] RCA PDA: Os 70 NB: Intervened on a different day than diagnostic cath whilst evaluated for CABG (not a candidate).AD/Cx intervention as mini-crush into LM) Cardiomyopathy 09/2022: EF 27%, apical AK 12/2022: EF 48%, posterior HK 03/2023: EF 46%, posterior hk 04/2023 (at time of NTE-ACS): EF 29%, anterior HK new, apical AK new. Hypercholesterolemia Hypothyroidism Traumatic plantar fasciitis Type 2 diabetes mellitus Prostate cancer metastatic to multiple sites 10/04/2022 Surgical Pathology DIAGNOSIS A - Lymph node, biopsy: - Metastatic carcinoma, consistent with prostatic origin (see discussion) [place] light chain deposition disease Gout Retroperitoneal lymphadenopathy Hydronephrosis Objective: BP 98/57 (BP Location (NBP): Left arm, Patient Position: Sitting, BP Cuff Sizes: Adult (25-34 cm)) Pulse 64 Comment: per ecg Ht 177.8 cm (5' 10) Wt 87.1 kg (192 lb) BMI 27.55 kg/m?? Gen: pleasant male in NAD Cor: rrr, s1/s2 of nl character and amplitude, no pathologic m/r/g. Estimated RAP not elevated. Carotids with normal upstroke without bruit. Pulm: CTAB. Normal diaphragmatic movement without use of accessory muscles EKG: nsr, infero lateral ST-depression (unchanged) Assessment and Plan: ASCVD (arteriosclerotic cardiovascular disease) No angina per history. PCI to dLAD planned for next week - Anti-Thrombosis: asa 81, plavix 75 - Anti- Lipemic: lipitor 40 - Anti- Anginals: GTN PRN Cardiomyopathy No failure by history nor exam. Will plan to repeat TTE in early July - Diuresis: non - Cardioprotection: - Beta Blockade: limited by HR - RAASi: limited by BP - MC Blockade: will defer - SGLT2i: will defer for now - Devices: did not review in context of metastatic prostate CA - Dx: TTE (early 07/2023) RTC 3 months Sameer Rudolph MD documented in this encounter Miscellaneous Notes * Assessment & Plan Note - Sameer Rudolph MD - 04/25/2023 9:39 AM EST Associated Problem(s): Cardiomyopathy No failure by history nor exam. Will plan to repeat TTE in early July - Diuresis: non - Cardioprotection: - Beta Blockade: limited by HR - RAASi: limited by BP - MC Blockade: will defer - SGLT2i: will defer for now - Devices: did not review in context of metastatic prostate CA - Dx: TTE (early 07/2023) * Assessment & Plan Note - Sameer Rudolph MD - 04/25/2023 9:36 AM EST Associated Problem(s): ASCVD (arteriosclerotic cardiovascular disease) No angina per history. PCI to dLAD planned for next week - Anti-Thrombosis: asa 81, plavix 75 - Anti- Lipemic: lipitor 40 - Anti- Anginals: GTN PRN documented in this encounter Plan of Treatment Upcoming Encounters Date Type Department Care Team (Late st Contact Info) Description 10/16/2023 2:30 PM EDT Office Visit Hematology/Oncology at [address] [phone] Fiordaliza Downing APRN [facility] [place] [address] 11/10/2023 9:00 AM EDT Appointment [place] [address] Thomas Curtis MD [facility] HEMATOLOGY [place] [address] 11/21/2023 11:00 AM EDT Infusion Hematology Oncology at [address] [phone] 12/05/2023 1:30 PM EDT Office Visit Hematology/Oncology at [address] [phone] Thomas Curtis MD [facility] HEMATOLOGY [place] [address] Fiordaliza Downing APRN [facility] [place] [address] 12/26/2023 9:00 AM EDT Appointment [place] [phone] Thomas Curtis MD [facility] HEMATOLOGY [place] [address] 02/09/2024 8:00 AM EST Appointment Nuclear Medicine at [place] [phone] Thomas Curtis MD [facility] HEMATOLOGY [place] [address] 03/18/2024 3:00 PM EST Office Visit Cardiology at [address] [phone] Sameer Rudolph MD [facility] [place] [address] 03/22/2024 9:00 AM EST Appointment Nuclear Medicine at [place] [phone] Thomas Curtis MD [facility] HEMATOLOGY [place] [address] 08/23/2024 Hospital Encounter Main Operating Room [place] [phone] True Juarez MD [facility] [place] [address] Scheduled Procedures Name Priority Associated Diagnoses Date/Ti [...] Christy Bravo, [facility] Note: The patient? s goal is to continue positive results of oral chemotherapy by maintaining improved labs (PSA) or stable scans in clinic for the upcoming year. documented as of this encounter Visit Diagnoses Diagnosis Cardiomyopathy, unspecified type ASCVD (arteriosclerotic cardiovascular disease) Unspecified cardiovascular disease documented in this encounter Care Teams Poultry Hatchery Manager Relationship Specialty Start Date End Date Nicolasa Valenzuela PA [address] [place] [address] PCP - General Family Medicine 12/20/21 documented as of this encounter
--- OUTSIDE RECORDS SUMMARY | 2023-10-16 03:11 | XMS_ITS | Encounter Summary ---
Author Organization [facility] Address [facility] [place] [address] Care Team Providers Care Rehab Nurse Name Role Phone Nicolasa Valenuzela Primary Care Pro vider Encounter Details Date Type Department Care Team (Late st Contact Info) Description 05/23/2023 Orders Only Hematology/Oncology at [address] [phone] Fiordaliza Downing APRN [facility] [address] Prostate cancer metastatic to multiple sites Social History Tobacco Use Types Packs/Day Years Used Date Smoking Tobacco: Never Smokeless Tobacco: Never Alcohol Use Standard Drinks/Week Comments Not Currently 0 (1 standard drink = 0.6 oz pur e alcohol) [facility] Utilities Answer Date Recorded In the past 12 months has [employer], gas, oil, or water [employer] threatened to shut off services in your [...] 2:30 PM EDT Office Visit Hematology/Oncology at [address] [phone] Fiordaliza Downing APRN [facility] [place] [address] 11/10/2023 9:00 AM EDT Appointment [place] [phone] Thomas Curtis MD [facility] [place] [address] 11/21/2023 11:00 AM EDT Infusion Hematology Oncology at [address] [phone] 12/05/2023 1:30 PM EDT Office Visit Hematology/Oncology at [address] [phone] Thomas Curtis MD [facility] [place]EMATOLOGY [place] [address] Fiordaliza Downing APRN [facility] [address] 12/26/2023 9:00 AM EDT Appointment [place] [phone] Thomas Curtis MD [facility] [place] [address] 02/09/2024 8:00 AM EST Appointment [place] [phone] Thomas Curtis MD [facility] [place] [address] 03/18/2024 3:00 PM EST Office Visit Cardiology at [address] [place] [phone] Sameer Rudolph MD [facility] [place] [address] 03/22/2024 9:00 AM EST Appointment [place] [phone] Thomas Curtis MD [facility] [place] [address] 08/23/2024 Hospital Encounter Main Operating Room [facility] [place] [address] True Juarez MD [facility] [place] [address] Scheduled Orders Name Type Priority Associated Diagnoses Orde r Schedule CBC (with Diff) Lab Routine Prostate cancer metastatic to multiple sites Every 6 weeks for 8 Occurrences starting 05/23/2023 until 05/22/2024 Comprehensive metabolic panel (non-fasting) Lab Routine Prostate cancer metastatic to multiple sites Every 6 weeks for 8 Occurrences starting 05/23/2023 until 05/22/2024 PSA (Ultrasensitive) Lab Routine Prostate cancer metastatic to multiple sites Every 6 weeks for 8 Occurrences starting 05/23/2023 until 05/22/2024 Testosterone, total Lab Routine Prostate cancer metastatic to multiple sites Every 6 weeks for 8 Occurrences starting 05/23/2023 until 05/22/2024 Scheduled Procedures Name Priority Associated Diagnoses Date/Ti [...] prostate documented in this encounter Care Teams Rehab Nurse Relationship Specialty Start Date End Date Nicolasa Valenzuela PA [address] [place] [address] PCP - General Family Medicine 12/20/21 documented as of this encounter
--- OUTSIDE RECORDS SUMMARY | 2023-10-16 03:11 | XMS_ITS | Encounter Summary ---
[place] [address] Care Team Providers Care Oracle Adf Consultant Name Role Phone Nicolasa Valenzuela Primary Care Pro vider Reason for Referral * Consultation (Urgent) - Duplicate Referral Specialty Diagnoses / Procedures Referred By Toño mayorga Referred To Contact Urology Diagnoses Crossing vessel and stricture of ureter without hydronephrosis Nicolasa Valenzuela PA [address] [place] [address] [facility] [place] [address] Referral ID Status Reason Start Date Expiration Date Visits Requested Visits Authorized [id number] Duplicate Referral Consult, Test & Treat PCP Updated and/or Approved 05/04/2023 05/03/2024 6 6 Encounter Details Date Type Department Care Team (Latest Contact Info) Description 05/04/2023 Transcribe Orders eDH Incoming Referrals [phone] Nicolasa Valenzuela PA [address] [place] [address] Crossing vessel and stricture of ureter without hydronephrosis Social History Tobacco Use Types Packs/Day Years Used Date Smoking Tobacco: Never Smokeless Tobacco: Never Alcohol Use Standard Drinks/Week Comments Not Currently 0 (1 standard drink = 0.6 oz pur e alcohol) [facility] Utilities Answer Date Recorded In the [...] PM EDT Office Visit Hematology/Oncology at [address] [phone] Fiordaliza Downing APRN [facility] [place] [address] 11/10/2023 9:00 AM EDT Appointment [place] [phone] Thomas Curtis MD [facility] HEMATOLOGY [place] [address] 11/21/2023 11:00 AM EDT Infusion Hematology Oncology at [address] [phone] 12/05/2023 1:30 PM EDT Office Visit Hematology/Oncology at [address] [phone] Thomas Curtis MD [facility] HEMATOLOGY [place] [address] Fiordaliza Downing APRN [facility] [place] [address] 12/26/2023 9:00 AM EDT Appointment [place] [phone] Thomas Curtis MD [facility] HEMATOLOGY [place] [address] 02/09/2024 8:00 AM EST Appointment [place] [phone] Thomas Curtis MD [facility] HEMATOLOGY [place] [address] 03/18/2024 3:00 PM EST Office Visit Cardiology at [address] [place] [address] Sameer Rudolph MD [facility] [place] [address] 03/22/2024 9:00 AM EST Appointment [place] [phone] Thomas Curtis MD [facility] HEMATOLOGY [place] [address] 08/23/2024 Hospital Encounter [place] [phone] True Juarez MD [facility] [place] [address] Scheduled Procedures Name Priority Associated Diagnoses Date/Ti [...] 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 Author DH Home Medication Compliance and Understanding Patient Facing Action Plan No Christy Cloud RPH Note: The patient? s goal is to continue positive results of oral chemotherapy by maintaining improved labs (PSA) or stable scans in clinic for the upcoming year. 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
--- OUTSIDE RECORDS SUMMARY | 2023-10-16 03:11 | XMS_ITS | Encounter Summary ---
Author Organization [facility] Address [facility] [place] [address] Care Team Providers Care Housekeeping Lead Name Role Phone Nicolasa Valenzuela Primary Care Pro vider Encounter Details Date Type Department Care Team (Late st Contact Info) Description 05/23/2023 Specialty Pharmacy Pharmacy at [facility] [place] [address] Sarah Beth Maharaj, [facility] Social History Tobacco Use Types Packs/Day Years Used Date Smoking Tobacco: Never Smokeless Tobacco: Never Alcohol Use Standard Drinks/Week Comments Not Currently 0 (1 standard drink = 0.6 oz pur e alcohol) [facility] Utilities Answer Date Recorded In [...] in a snf (including now)? No 04/14/2023 IPV Inpatient Questions [...] as of this encounter Progress Notes * Sarah Beth Maharaj RPH - 05/23/2023 12:23 PM EDT Clinical Management Plan: Discontinuation of Therapy Specialty Pharmacy Consultation; Sarah Beth Maharaj [facility] Comprehensive Medication Management (CMM) Huber Keys [address] [facility] [address] Telephone Information: Work Phone Not on file. Is the patient transferring services to a different Specialty Pharmacy, discontinuing the medication, or modifying current Specialty Is the patient transferring services to a different Specialty Pharmacy, discontinuing the medication, or modifying current Specialty services? See above (Optional) If modifying Specialty services, patient unenrolls from: n/a Medication: Nubeqa Reason for discontinuation or transfer: Risk of cardiac toxicity, will try Pluvicto Approximate date of discontinuation or transfer: 05/23/23 Patient's response to therapy: unable to determine, short course Summary of services provided by [facility] Special[facility]: Counseling, billing assistance, refill reminders Summary of on-going needs: follow up scheduled Referral for additional services (if applicable): N/A Is the patient aware of the referral? Yes Instructions provided to patient about discharge/transfer: Yes, per clinic staff Provider aware of discontinuation or transfer: Yes Patient understands no changes to current drug regimen were made at the appointment and that [facility] is[facility] (summary located at top of note) for provider review and follow up. Of note, if transferring to another specialty pharmacy, a copy of patient's medication profile was offered to accepting pharmacy. Sarah Beth Maharaj RPH 05/23/23 8:35 PM documented in this encounter Plan of Treatment Upcoming Encounters Date Type Department Care Team (Late st Contact Info) Description 10/16/2023 2:30 PM EDT Office Visit Hematology/Oncology at [address] [phone] Fiordaliza Downing APRN [facility] [place] [address] 11/10/2023 9:00 AM EDT Appointment [place] [address] Thomas Curtis MD [facility] [place]AT[place] [address] 11/21/2023 11:00 AM EDT Infusion Hematology Oncology at [address] [phone] 12/05/2023 1:30 PM EDT Office Visit Hematology/Oncology at [address] [phone] Thomas Curtis MD [facility] [place]ATOLOG[place] [address] Fiordaliza Downing APRN [facility] [place] [address] 12/26/2023 9:00 AM EDT Appointment [place] [phone] Thomas Curtis MD [facility] [place]ATOLOG[place] [address] 02/09/2024 8:00 AM EST Appointment [place] [phone] Thomas Curtis MD [facility] HEMATOLOGY AND ONCOLOGY [place], [place] [phone] 03/18/2024 3:00 PM EST Office Visit Cardiology at [address] [phone] Sameer Rudolph MD [facility] [place] [address] 03/22/2024 9:00 AM EST Appointment [place] [phone] Thomas Curtis MD [facility] HEMATOLOGY [place] [address] 08/23/2024 Hospital Encounter [place] [phone] True Juarez MD [facility] [place] [address] Scheduled Procedures Name Priority Associated Diagnoses Date/Ti [...] Understanding Patient Facing Action Plan Christy Bravo [facility] Note: The patient? s goal is to continue positive results of oral chemotherapy by maintaining improved labs (PSA) or stable scans in clinic for the upcoming year. documented as of this encounter Visit Diagnoses Not on filedocumented in this encounter Care Teams Housekeeping Lead Relationship Specialty Start Date End Date Nicolasa Valenzuela PA [address] [place] [address] PCP - General Family Medicine 12/20/21 documented as of this encounter
--- OUTSIDE RECORDS SUMMARY | 2023-10-16 03:11 | XMS_ITS | Encounter Summary ---
Author Organization [facility] Address [facility] [place] [address] Care Team Providers Care Salt Manager Name Role Phone Nicolasa Valenzuela Primary Care Pro vider Encounter Details Date Type Department Care Team (Latest Contact Info) Description 06/01/2023 Travel Social History Tobacco Use Types Packs/Day Years Used Date Smoking Tobacco: Never Smokeless Tobacco: Never Alcohol Use Standard Drinks/Week Comments Not Currently 0 (1 standard drink = 0.6 oz pur e alcohol) [facility] Utilities Answer Date Recorded In the past 12 months has e electric, gas, oil, or water [employer] threatened to shut off services in your [...] place to sleep or slept in a nursing home (including now)? No 04/14/2023 DH IPV [...] PM EDT Office Visit Hematology/Oncology at [address] [phone] Fiordaliza Downing APRN [facility] [place] [address] 11/10/2023 9:00 AM EDT Appointment [place] [phone] Thomas Curtis MD [facility] [address] [place] [address] 11/21/2023 11:00 AM EDT Infusion Hematology Oncology at [address] [phone] 12/05/2023 1:30 PM EDT Office Visit Hematology/Oncology at [address] [phone] Thomas Curtis MD [facility] [place] [address] Firodaliza Downing APRN [facility] [place] [address] 12/26/2023 9:00 AM EDT Appointment Nuclear Medicine at [place] [phone] Thomas Curtis MD [facility] [place] [address] 02/09/2024 8:00 AM EST Appointment Nuclear Medicine at [place] [phone] Thomas Curtis MD [facility] [place] [address] 03/18/2024 3:00 PM EST Office Visit Cardiology at [address] [phone] Sameer Rudolph MD [facility] [place] [address] 03/22/2024 9:00 AM EST Appointment Nuclear Medicine at [place] [phone] Thomas Curtis MD [facility] [place] [address] 08/23/2024 Hospital Encounter [place] [address] True Juarez MD [facility] [place] [place] [address] Scheduled Procedures Name Priority Associated Diagnoses Date/Ti [...] Understanding Patient Facing Action Plan Christy Bravo, [facility] Note: The patient? s goal is to continue positive results of oral chemotherapy by maintaining improved labs (PSA) or stable scans in clinic for the upcoming year. documented as of this encounter Visit Diagnoses Not on filedocumented in this encounter Care Teams Salt Manager Relationship Specialty Start Date End Date Nicolasa Valenzuela PA [address] [place] [address] PCP - General Family Medicine 12/20/21 documented as of this encounter
--- OUTSIDE RECORDS SUMMARY | 2023-10-16 03:11 | XMS_ITS | Encounter Summary ---
Author Organization [facility] Address [facility] [place] [address] Care Team Providers Care Seo Manager Name Role Phone Nicolasa Valenzuela Primary Care Pro vider Encounter Details Date Type Department Care Team (Latest Contact Info) Description 04/25/2023 Travel Social History Tobacco Use Types Packs/Day Years Used Date Smoking Tobacco: Never Smokeless Tobacco: Never Alcohol Use Standard Drinks/Week Comments Not Currently 0 (1 standard drink = 0.6 oz pur e alcohol) [facility] Utilities Answer Date Recorded In the past 12 months has e electric, gas, oil, or water [employer] threatened to shut off services in your [...] 2:30 PM EDT Office Visit Hematology/Oncology at [address] [phone] Fiordaliza Downing APRN [facility] [place] [address] 11/10/2023 9:00 AM EDT Appointment [place] [phone] Thomas Curtis MD [facility] DR HEMATOLOGY [place] [address] 11/21/2023 11:00 AM EDT Infusion Hematology Oncology at [address] [phone] 12/05/2023 1:30 PM EDT Office Visit Hematology/Oncology at [address] [phone] Thomas Curtis MD [facility] HEMATOLOGY [place] [address] Fiordaliza Downing APRN [facility] [place] [address] 12/26/2023 9:00 AM EDT Appointment Nuclear Medicine at [place] [phone] Thomas Curtis MD [facility] HEMATOLOGY [place] [address] 02/09/2024 8:00 AM EST Appointment Nuclear Medicine at [place] [phone] Thomas Curtis MD [facility] HEMATOLOGY [place] [address] 03/18/2024 3:00 PM EST Office Visit Cardiology at [address] [phone] Sameer Rudolph MD [facility] [place] [address] 03/22/2024 9:00 AM EST Appointment Nuclear Medicine at [place] [phone] Thomas Curtis MD [facility] HEMATOLOGY [place] [address] 08/23/2024 Hospital Encounter [place] [phone] True Juarez MD [facility] [place] [address] Scheduled Procedures Name Priority Associated Diagnoses Date/Ti [...] on filedocumented in this encounter Care Teams Seo Manager Relationship Specialty Start Date End Date Nicolasa Valenzuela PA [address] [address] PCP - General Family Medicine 12/20/21 documented as of this encounter
--- OUTSIDE RECORDS SUMMARY | 2023-10-16 03:11 | XMS_ITS | Encounter Summary ---
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 Role Phone Nicolasa Valenzuela Primary Care Pro vider Encounter Details Date Type Department Care Team (Late st Contact Info) Description 05/24/2023 Nurse Triage Cardiology at [address] [place] [phone] Sameer Rudolph MD [facility] [place] [address] Social History Tobacco Use Types Packs/Day Years Used Date Smoking Tobacco: Never Smokeless Tobacco: Never Alcohol Use Standard Drinks/Week Comments Not Currently 0 (1 standard drink = 0.6 oz pur e alcohol) [facility] Utilities Answer Date Recorded In the past 12 months has [employer], gas, oil, or water [employer] threatened to shut off services in your [...] Telephone Encounter - Roxi Burleson RN - 05/25/2023 8:18 AM EDT Dear Bill, I am forwarding your inquiry about being at risk for congestive heart failure to Dr. Rudolph. You may read Dr. Farris's note in its entirety with your portal access. I reviewed Dr. Farris's note and lift out the relevant discussion: I leave it to Dr. Rudolph to address your specific question but I can confirm that any patient who has had a heart attack is at risk for developing heart failure. - Roxi Burleson RN From Dr. Farris's note addressing the Prescription Pluvicto: The trial demonstrated a statistically significant improvement in the primary endpoints of overall survival and radiographic progression-free survival. Hazard ratio for overall survival was 0.62 for the comparison of Pluvicto (edit) Median overall survival was 15.3 months in the Pluvicto plus best standard of care arm and 11.3 months in the best standard of care control group (edited) The most common adverse reactions reported in more than 20% of patients receiving Pluvicto were fatigue, dry mouth, nausea, anemia, decreased appetite, and constipation. The most common laboratory abnormalities (edit) in more than 30% of patients receiving Pluvicto were decreased lymphocytes, decreased hemoglobin, decreased leukocytes, decreased platelets, decreased calcium, and decreased sodium.Treatment with Pluvicto may result in risk from radiation exposure, myelosuppression, and renal toxicity. (Edit) I think it would be the safest option in regards to cardiomyopathy/CO/congestive heart failure. Discussed benefits and risks of Pluvicto. We will see him back with blood work and restaging PSMA PET scan in about 5 weeks to finalize the plan * Telephone Encounter - Roxi Burleson RN - 05/25/2023 8:18 AM EDT ----- Message from Huber Keys sent at 05/24/2023 3:08 PM EDT ----- Regarding: interaction with chemo Contact: Greetings, My oncologist has stopped chemo treatments and hormone blockers. He is concerned about risks to theheart, particularly congestive heart failure. Am I candidate for that? I don't recall a discussion about it. When was the last time I had a chestx-ray and what were the results? Do you feel further chemo treatments will adversely effect heart function. I am hoping to start chemo again in a few weeks. Just need advice. Started cardiac rehab and feeling better already. Thanks for your help as I try to navigate these health concerns. Bill documented in this encounter Plan of Treatment Upcoming Encounters Date Type Department Care Team (Late st Contact Info) Description 10/16/2023 2:30 PM EDT Office Visit Hematology/Oncology at [address] [phone] Fiordaliza Downing APRN [facility] [place] [address] 11/10/2023 9:00 AM EDT Appointment [place] [phone] Thomas Curtis MD [facility] [place] [address] 11/21/2023 11:00 AM EDT Infusion Hematology Oncology at [address] [phone] 12/05/2023 1:30 PM EDT Office Visit Hematology/Oncology at [address] [phone] Thomas Curtis MD [facility] [place] [address] Fiordaliza Downing APRN [facility] [place] [address] 12/26/2023 9:00 AM EDT Appointment [place] [phone] Thomas Curtis MD [facility] [place] [address] 02/09/2024 8:00 AM EST Appointment [place] [phone] Thomas Curtis MD [facility] [place] [address] 03/18/2024 3:00 PM EST Office Visit Cardiology at [address] [place] [phone] Sameer Rudolph MD [facility] [place] [address] 03/22/2024 9:00 AM EST Appointment [place] [phone] Thomas Curtis MD [facility] [place] [address] 08/23/2024 Hospital Encounter [place] [phone] True Juarez MD [facility] UROLOGY [place], [place] [phone] Scheduled Procedures Name Priority Associated Diagnoses Date/Ti [...] Facing Action Plan Christy Bravo, [facility] Note: The patient? s goal is to continue positive results of oral chemotherapy by maintaining improved labs (PSA) or stable scans in clinic for the upcoming year. 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
--- OUTSIDE RECORDS SUMMARY | 2023-10-16 03:11 | XMS_ITS | Encounter Summary ---
Author Organization Formerly [facility] [place] [address] Care Team Providers Care Reservation Clerk Name Role Phone Nicolasa Valenzuela Primary Care Pro vider Reason for Visit * Auth/Cert (Routine) Specialty Diagnoses / Procedures Referred By Toño t Referred To Contact Diagnoses Coronary artery disease, unspecified vessel or lesion type, unspecified whether angina present, unspecified whether [place] or transplanted heart Coronary artery disease, unspecified vessel or lesion type, unspecified whether angina present, unspecified whether [place] or transplanted heart [I25.10] Procedures PRG CATH PLMT LEFT HEART CATH & ARTS W/INJ & ANGIO IMG S&I CARDIAC CATHETERIZATION CORONARY ANGIOGRAPHY; [facility],POSSIBLE PCI (WRVU 5.6) Citlalli Esposito MD [facility] [place] [address] [place] [address] [facility] Referral ID Status Reason Start Date Expiration Date Visits Re quested Visits Authorized [id number] 1 1 Encounter Details Date Type Department Care Team (Latest Contact Info) Description 05/02/2023 10:53 AM EST - 05/03/2023 12:19 PM EST Hospital Encounter [place] [address] Citlalli Esposito MD [facility] [address] [place], [place] [id number] Coronary artery disease, unspecified vessel or lesion type, unspecified whether angina present, unspecified whether [place] or transplanted heart; Malignant neoplasm of prostate metastatic to bone Discharge Disposition: Home Social History Tobacco Use Types Packs/Day Years Used Date Smoking Tobacco: Never Smokeless Tobacco: Never Tobacco Cessation:Counseling Given: Not Answered Alcohol Use Standard Drinks/Week Comments Not Currently 0 (1 standard drink = 0.6 oz pur e alcohol) [facility] Utilities Answer Date Recorded In the past 12 months has th e [employer], gas, oil, or water [employer] threatened to shut off services in your [...] Sign Reading Time Taken Comments Blood Pressure 106/63 05/03/2023 7:19 AM EST Pulse 77 05/03/2023 7:19 AM EST Temperature 36.6 ??C (97.8 ??F) 05/03/2023 7:19 AM ES T Respiratory Rate 17 05/03/2023 7:19 AM EST Oxygen Saturation 96% 05/03/2023 7:19 AM EST Inhaled Oxygen Concentration - - Weight 88.6 kg (195 lb 4.8 oz) 05/02/2023 1:59 P M EST Height 177.8 cm (5' 10) 05/02/2023 1:59 PM EST Body Mass Index 28.02 05/02/2023 1:59 PM EST documented in this encounter Discharge Summaries * Puma Hernandez MD - 05/03/2023 12:19 PM EST Images from the original note were not included. Discharge Summary Patient Name: Huber Keys Patient Age: 67 y.o. Language: Haitian Race: White Ethnicity: Not nor Admit date: 05/02/2023 Discharge date and time: 05/03/2023 Attending Physician: Cheyenne att. providers found Follow-up Recommendations for Providers: - Patient should be on dual antiplatelet therapy with aspirin 81 mg daily indefinitely and plavix 75 mg daily for at least 1 year, indefinitely if tolerated. Inpatient Provider Contact Information: For questions regarding this document or issues relating to this hospitalization on the Medical Service, please contact your inpatient physician through the [facility] Machine Operator Picker . Issues afterhours and on weekends will be handled by the glaze wiper on-call. Discharge Diagnoses (Hospital Problems) and Secondary Diagnoses (Chronic Problems): Active Hospital Problems Diagnosis CAD (coronary artery disease) Resolved Hospital Problems No resolved problems to display. 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 Gout Cardiomyopathy Retroperitoneal lymphadenopathy Hydronephrosis Operations/Major Procedures: Case Date: 05/02/2023 Surgeon: Surgeon(s) and Role: * Citlalli Esposito MD - Primary * Puma Hernandez MD - Fellow - Assisting Preoperative diagnosis: CAD Postoperative diagnosis: CAD Preliminary Cardiac Catheterization Procedure Note: Procedure(s) performed: Right Radial Access - 6 Slender Coronary Angiography PCI-Stent IVUS Angioplasty Preliminary findings: Coronary Angiography: Anatomically normal right dominant circulation LMCA: Without angiographic apparent disease LAD: Minimal luminal irregularities noted LCx: Minimal luminal irregularities noted RCA: Minimal luminal irregularities noted Contrast: 135 ccs Pre/Post: Conclusion: - Successful PCI of the of the mid-LAD with a 3.0 x 30 mm [place] ARJUN and the distal LAD witha 2.5 x 18 mm [place] ARJUN. - There was longitudinal deformation of the LM stent at the completion of the LAD procedure which was treated with a repeat kissing balloon inflation of the ostial LAD/LCX with a 3.5 NC balloon in the LAD and a 3.0 NC balloon in the LCX with excellent final IVUS. - The patient tolerated the procedure well and was transferred from the cardiac catheterization labin stable condition without apparent complications. History of Presentation: Huber Keys is a 67 y.o. male w/ PMH CAD (per CT scan imaging), cardiomyopathy (stress vs ischemic), high risk prostate cancer with multiple mets to bones/lymph nodes,CKD, IDDM2, hypothyroidism, and bilateral hydronephrosis s/p stents who presents for completion PCI of the LAD. Hospital Course: Patient was admitted to same day after undergoing cardiac catheterization. male is s/p PCI to LAD with good result. Post procedure hospital course was uneventful. male received IVF. There were no post procedure access site problems. Patient given instructions for follow up. Vital Signs at Discharge: BP: 106/63, Heart Rate: 77, Temp: 36.6 ??C (97.8 ??F), Resp: 17, BMI (Calculated): 28.02 Height: 177.8 cm (5' 10) (05/02/23 1359) Weight: 88.6 kg (195 lb 4.8 oz) (05/02/23 1359) Functional and Cognitive Status: Patient is at baseline functional and cognitive status Important Studies and Lab Data: Labs: Last 3 wbc, hgb, hct plt Recent Labs 05/03/23 0010 05/02/23 1545 04/19/23 0400 WBC 4.8 3.9* 5.5 HGB 9.5* 10.3* 9.1* HCT 28.0* 30.2* 27.3* PLATELET 235 282 305 Last 3 Lytes Recent Labs 05/03/23 0010 05/02/23 1545 04/19/23 0400 NA 138 136 136 K 4.3 4.4 4.5 CL 108* 107 106 CO2 20* 21* 19* BUN 30* 29* 26* CREATININE 1.47 1.43 1.52* Pending Studies and Lab Data: None Discharge Conditions/Prognosis: Stable for discharge home Discharge to: Home Updated Allergies/ADRs: Allergies Allergen Reactions Amoxicillin Rash Penicillin Other (See Comments) Other reaction(s): Unknown Immunizations Given this Hospitalization: There is no immunization history on file for this patient. Discharge Medications: Your Medications Continued medications, unchanged Dose Details acetaminophen 325 mg tablet Commonly known as: Tylenol Take 650 mg by mouth 3 times daily. 650 mg Refills: 0 aspirin 81 mg chewable tablet Take 81 mg by mouth daily. 81 mg Quantity: 30 tablet Refills: 3 atorvastatin 40 mg tablet Commonly known as: Lipitor Take 1 tablet by mouth daily. 40 mg Quantity: 30 tablet Refills: 3 cholecalciferol 1,000 unit tablet Commonly known as: Vitamin D3 Take 1 tablet by mouth daily. 1,000 Units Quantity: 90 tablet Refills: 3 clopidogreL 75 mg tablet Commonly known as: Plavix Take 1 tablet by mouth daily. 75 mg Quantity: 90 tablet Refills: 3 HYDROcodone-acetaminophen 5-325 mg tablet Commonly known as: [place] Take 1 tablet by mouth every 6 hours as needed for Pain. 1 tablet Refills: 0 Lantus Solostar U-100 Insulin 100 unit/mL (3 mL) pen Inject 8 Units subcutaneously daily. Generic drug: insulin glargine 8 Units Quantity: 10 mL Refills: 12 levothyroxine 150 mcg tablet Commonly known as: Synthroid Take 150 mcg by mouth daily. 150 mcg Refills: 0 nitroGLYcerin 0.4 mg sublingual tablet Commonly known as: Nitrostat Place 1 tablet under the tongue every 5 minutes as needed for Chest pain. 0.4 mg Quantity: 90 tablet Refills: 12 tamsulosin 0.4 mg capsule Commonly known as: Flomax Take 0.4 mg by mouth daily. 0.4 mg Refills: 0 Smoking Status at Discharge: Social History Tobacco Use Smoking Status Never Smokeless Tobacco Never Instructions Given to Patient at Discharge: Patient Instructions Changes in Medications You will take aspirin 81 mg daily indefinitely. You will need to take clopidogrel (plavix) 75 mg daily for at least one year. It is very important that you take these two medications (aspirin and clopidogrel) every day without missing any doses. Missing a dose could result in stent thrombosis and possibly . Radial Access for Heart Cath Activity Try to avoid bending your wrist for the first 12-24 hours after the procedure to allow the artery to fully heal. Do not participate in active sports for 48 hours. Do not lift anything greater than 5 lbs. Catheter Insertion Area Care Take the dressing off of the catheter insertion site the morning following the procedure. Leave thesite open to air. If the site is oozing you may cover it with a band aid. You may take a shower if you wish. Look for signs of infection over the next several days. It is uncommon to have any visible blood at the site, any obvious bleeding is abnormal. A bruise around the wrist or small lump under the skin is normal: they generally disappear in 3-5 days. Expect some mild tenderness over the area where the catheter was inserted. You will notice this after the local anesthetic (numbing medicine) wears off. This should improve during the 24-48 hours after the procedure. You may use acetaminophen (tylenol) if needed. Contact your doctor if the discomfort worsens. Problems to Watch for If there is bright red blood flowing from the catheter insertion area: *stop what you are doing *hold pressure steadily on the area for 15 minutes *call for help *if the bleeding does not stop in 15 minutes call 911 for an ambulance. If there is swelling with black and blue color at the catheter insertion site, there may be bleeding inside. Contact the doctor if there is any increase in size. Look at the insertion site for the first few days at home. Signs of infection are: *redness *swelling *yellow, white, green or brown foul smelling drainage. *increased soreness If you think there is an infection, take your temperature. Then call your doctor. The limb on the side where you had your catheterization should look and feel normal in color, sensation, and temperature. If your hand or fingers become cool, pale, blue or change color contact your doctor. If you are having numbness or tingling in your fingers or hand contact your doctor. Follow-up: Future Appointments Date Time Provider Department Center 05/23/2023 9:00 AM Thomas Curtis MD [facility] 09/04/2023 3:00 PM Sameer Rudolph MD [facility] Your Inpatient Doctor: Citlalli Charles MD Your Primary Care Provider: JESSE Nesbitt [phone] For questions regarding this document or issues relating to this hospitalization on the Medical Service, please contact your inpatient physician through the [facility] Machine Operator Picker . Issues afterhours and on weekends will be handled by the Hospitalist staff on-call. General Instructions None Future Appointments and Orders Future Appointments and Orders Future Appointments Provider Department Dept Phone 05/23/2023 9:00 AM Fiordaliza Downing APRN; Thomas Curtis MD Hematology/Oncology at [facility] Arrive at: [facility] door at end of hallway [phone] 09/04/2023 3:00 PM Sameer Rudolph MD Cardiology at [place] Arrive at: [facility] [address] [phone] Discharge References/Attachments None documented in this encounter Discharge Instructions * Patient Instructions* Puma Hernandez MD - 05/03/2023 7:57 AM EST Changes in Medications You will take aspirin 81 mg daily indefinitely. You will need to take clopidogrel (plavix) 75 mg daily for at least one year. It is very important that you take these two medications (aspirin and clopidogrel) every day without missing any doses. Missing a dose could result in stent thrombosis and possibly . Radial Access for Heart Cath Activity Try to avoid bending your wrist for the first 12-24 hours after the procedure to allow the artery to fully heal. Do not participate in active sports for 48 hours. Do not lift anything greater than 5 lbs. Catheter Insertion Area Care Take the dressing off of the catheter insertion site the morning following the procedure. Leave thesite open to air. If the site is oozing you may cover it with a band aid. You may take a shower if you wish. Look for signs of infection over the next several days. It is uncommon to have any visible blood at the site, any obvious bleeding is abnormal. A bruise around the wrist or small lump under the skin is normal: they generally disappear in 3-5 days. Expect some mild tenderness over the area where the catheter was inserted. You will notice this after the local anesthetic (numbing medicine) wears off. This should improve during the 24-48 hours after the procedure. You may use acetaminophen (tylenol) if needed. Contact your doctor if the discomfort worsens. Problems to Watch for If there is bright red blood flowing from the catheter insertion area: *stop what you are doing *hold pressure steadily on the area for 15 minutes *call for help *if the bleeding does not stop in 15 minutes call 911 for an ambulance. If there is swelling with black and blue color at the catheter insertion site, there may be bleeding inside. Contact the doctor if there is any increase in size. Look at the insertion site for the first few days at home. Signs of infection are: *redness *swelling *yellow, white, green or brown foul smelling drainage. *increased soreness If you think there is an infection, take your temperature. Then call your doctor. The limb on the side where you had your catheterization should look and feel normal in color, sensation, and temperature. If your hand or fingers become cool, pale, blue or change color contact your doctor. If you are having numbness or tingling in your fingers or hand contact your doctor. Follow-up: Future Appointments Date Time Provider Department Center 05/23/2023 9:00 AM Thomas Curtis MD [facility] 09/04/2023 3:00 PM Sameer Rudolph MD [facility] Your Inpatient Doctor: Citlalli Charles MD Your Primary Care Provider: JESSE Nesbitt [phone] For questions regarding this document or issues relating to this hospitalization on the Medical Service, please contact your inpatient physician through the [facility] Machine Operator Picker . Issues afterhours and on weekends will be handled by the Hospitalist staff on-call. documented in this encounter Medications at Time [...] 150 mcg by mouth daily. HYDROcodone-acetamino phen ([place]) 5-325 mg tablet Take 1 tablet by [...] 12 10/03/2022 documented as of this encounter Progress Notes * Kalli Lincoln RN - 05/03/2023 12:18 PM EST [facility] Short Stay Unit Discharge Note All relevant discharge milestones have been met by the patent. After Visit Summary and discharge teaching reviewed with the patient. IV access has been discontinued. All personal belongings have been returned to the patient/family upon their departure from the unit. Patient has been discharged to home The patient has been discharged without VNA services. * Archana Oneal RN - 05/02/2023 11:45 PM EST 2345: pt asked this nurse if he can get up his back was hurting from laying down too long. 2346: while sitting at the bedside this nurse checked midnight vitals BP was 77/51 2348: pt looked paled BP recheck 50/32 pt compliant of dizziness, asked to lay back to bed. 2350: Paged covering physician and life safety 0005: covering physician at the bedside, ordered NS bolus, and lab works 0010: life safety arrive at the bedside, draw labs, rechecked pt's vitals 0011: BP rechecked 95/57. Pt stable, A&O. documented in this encounter H&P Notes * Puma Hernandez MD - 05/02/2023 6:42 PM EST Interventional Cardiology Post-PCI H&P Reason for Admission: s/p PCI History: Huber Keys is a 67 y.o. male w/ PMH CAD (per CT scan imaging), cardiomyopathy (stress vs ischemic), high risk prostate cancer with multiple mets to bones/lymph nodes,CKD, IDDM2, hypothyroidism, and bilateral hydronephrosis s/p stents who presents for completion PCI of the LAD. This patient is admitted post PCI for IV hydration, pain management, access site management in the setting of anticoagulation, telemetry monitoring, evaluation of their medical condition, and cardiacrehabilitation. PMH: Patient Active Problem List Diagnosis CAD (coronary artery disease) ASCVD (arteriosclerotic cardiovascular disease) Cardiac Catheterization: (04/2023) RIGHT dominance Indication: NSTE-ACS LVEDP 25 Artery Lesion Intervention LM Distal 80 POBA LAD Os 95 Mid 70 Distal 80 D1: os 70 3.5 x 26 [place] LCx Os SENIOR MANAGER QUALITY ASSURANCE 3.0 x 34 [place] RCA PDA: Os 70 NB: Intervened on a different day than diagnostic cath whilst evaluated for CABG (not a candidate).AD/Cx intervention as mini-crush into LM) Hypercholesterolemia Hypothyroidism Traumatic plantar fasciitis Type 2 diabetes mellitus Prostate cancer metastatic to multiple sites 10/04/2022 Surgical Pathology DIAGNOSIS A - Lymph node, biopsy: - Metastatic carcinoma, consistent with prostatic origin (see discussion) [place]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 Retroperitoneal lymphadenopathy Hydronephrosis Outpatient Medications Marked as Taking for the 05/02/23 encounter (Hospital Encounter) Medication Sig Dispense Refill aspirin 81 mg chewable tablet Take 81 [...] Take 150 mcg by mouth daily. HYDROcodone-acetaminophen ([place]) 5-325 mg tablet Take 1 tablet by mouth every 6 hours as needed for Pain. atorvastatin (Lipitor) 40 mg tablet Take 1 tablet by mouth daily. 30 tablet 3 cholecalciferol (Vitamin D3) 1,000 unit tablet Take 1 tablet by mouth daily. 90 tablet 3 Lantus Solostar U-100 Insulin 100 unit/mL (3 mL) pen Inject 8 Units subcutaneously daily. 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 Tobacco Use Smoking status: Never Smokeless tobacco: Never Vaping Use Vaping Use: Never used Substance and Sexual Activity Alcohol use: Not Currently Drug use: Not Currently Sexual activity: Not on file Other Topics Concern Not on file Social History Narrative Not on file Social Determinants of Health Financial Resource Strain: Low Risk (01/31/2023) Overall Financial Resource Strain (CARDIA) Difficulty of Paying Living Expenses: Not hard at all Food Insecurity: No Food Insecurity (04/14/2023) Hunger Vital Sign Worried About Running Out of Food in the Last Year: Never true Ran Out of Food in the Last Year: Never true Transportation Needs: No Transportation Needs (04/14/2023) PRAPARE - Transportation Lack of Transportation (Medical): No Lack of Transportation (Non-Medical): No Physical Activity: Not on file Intimate Partner Violence: Not At Risk (04/13/2023) IPV Inpatient Questions Prevent Contact with Others: no Feels Threatened by Someone: no Feels Unsafe at Home: no Physical Signs of Abuse Present: no Housing Stability: Low Risk (04/14/2023) Housing Stability Vital Sign Unable to Pay for Housing in the Last Year: No Number of Places Lived in the Last Year: 1 Unstable Housing in the Last Year: No Family History Problem Relation Age of Onset Breast Cancer Mother 73 Heart Failure Father Heart Surgery Father Diabetes Sister Cancer Paternal Uncle 55 unknown primary, suspected stomach/abdominal Physical Exam BP 131/73 Pulse 68 Temp 36.1 ??C (97 ??F) (Temporal) Resp 17 Ht 177.8 cm (5' 10) Wt 88.6kg (195 lb 4.8 oz) SpO2 93% BMI 28.02 kg/m?? General: well-appearing, NAD HEENT: NC/AT, anicteric sclerae, OP clear, MMM Neck: supple, no LAD, no bruits or JVD Lungs: clear without W/R/R CV: RRR, S1, S2, no M/R/G Abd: Nl BS, soft, NT, ND, obese Ext: no C/C/Edema Vascular: 2+ radial, femoral, and intact distal pulses b/l Assessment/ Plan: 1. CAD, s/p PCI to the LAD - admit for overnight monitoring - telemetry, serial ECGs, - continue dual antiplatelet therapy - IVF - continue BB, ACEi, statin - monitor access site - cardiac rehab consult - anticipate discharge in am 2. HTN, follow up trend and titrate therapy PRN. 3. Dyslipidemia, follow up AM labs and address medication dose before DC home. 4. DM, hold insulin, monitor BG. Puma Hernandez MD 05/02/2023 6:43 PM * Puma Hernandez MD - 05/02/2023 2:34 PM EST Images from the original note were not included. Patient Information: Patient Name: Huber Keys PCP: JESSE Nesbitt PCP Referring Licensed Retail Supervisor: Sameer Rudolph MD Reason for Referral: Completion PCI. Brief History: 67 y.o. male presents for completion PCI of the LAD. Hx of ischemic cardiomyopathy with EF 29%, PCIto the LAD, LCX and LM with mini-crush 04/18, here for completion PCI of the LAD. Huber Keys has not observed fevers, chills or substantive changes in health since the pre-catheterization clinic visit. No planned upcoming surgeries. No recent or ongoing bleeding events. No black stools. Aspirin status: 81 mg this AM P2Y12 status: Plavix this AM Outpatient Medications Marked as Taking for the 05/02/23 encounter (Hospital Encounter) Medication Sig Dispense Refill aspirin 81 mg chewable tablet Take 81 [...] Take 150 mcg by mouth daily. HYDROcodone-acetaminophen ([place]) 5-325 mg tablet Take 1 tablet by mouth every 6 hours as needed for Pain. atorvastatin (Lipitor) 40 mg tablet Take 1 tablet by mouth daily. 30 tablet 3 cholecalciferol (Vitamin D3) 1,000 unit tablet Take 1 tablet by mouth daily. 90 tablet 3 Lantus Solostar U-100 Insulin 100 unit/mL (3 mL) pen Inject 8 Units subcutaneously daily. (Patient taking differently: Inject 10-12 Units subcutaneously daily.) 10 mL 12 BP 131/73 Pulse 68 Temp 36.1 ??C (97 ??F) (Temporal) Resp 17 Ht 177.8 cm (5' 10) Wt 88.6kg (195 lb 4.8 oz) SpO2 93% BMI 28.02 kg/m?? PE NAD CV: RR, no M/R/G, JVP estimated @ cm H2O Pulm: CTAB, no w/r/r Abd: soft, NT, ND, +BS, no bruits Vasc: radial pulses 2+, femoral pulses 2+ w/o bruits, DP/PT pulses 2+. Extr: warm, no edema ASA: 3: Patient with severe systemic disease Mallampati: II: tonsillar pillars are blocked by the tongue Last 3 wbc, hgb, hct plt Recent Labs 05/02/23 1545 04/19/23 0400 04/18/23 0330 WBC 3.9* 5.5 4.2 HGB 10.3* 9.1* 9.0* HCT 30.2* 27.3* 27.1* PLATELET 282 305 321 Last 3 Lytes Recent Labs 05/02/23 1545 04/19/23 0400 04/18/23 0330 NA 136 136 137 K 4.4 4.5 4.5 CL 107 106 105 CO2 21* 19* 20* BUN 29* 26* 30* CREATININE 1.43 1.52* 1.58* Tests: Echocardiogram 04/14/2023: Interpretation Summary Left ventricle is mildly dilated with severely reduced systolic function (29%). There are regional wall motion abnormaltiies as ascribed. No LV thrombus. Right ventricle is normal in size and systolic function. PASP of 55 mmHg plus estimated RA pressure. IVC is non-dilated and non-plethoric. Moderate atrioventricular valve regurgitation. Compared to prior study dated 03/2023, there has been a decrement in EF (previously 46%), with more anterior distribution of regional wall motion abnormality. Previous Catheterization 04/18/2023: LM/LAD/LCX stents. The nature of the procedures and attendant risks as outlined on the consent form were discussed in detail with the patient. The patient was given an opportunity to ask questions and these were answered; The patient agrees to proceed. Code status: FULL. Plan: Coronary Angio via radial No C/I to long-term DAPT Moderate Sedation OK Puma Hernandez MD 05/02/2023 documented in this encounter Miscellaneous Notes * Consult Note - Tami, Janette J, RN - 05/03/2023 7:57 AM EST This patient was seen on 04/19/2022 by a member of the cardiac rehab team. He was referred to [facility] cardiac rehab at that time. He is s/p PCI of the LAD yesterday. Will send an updated discharge summary to [facility] cardiac rehab. * Consult Note - Benita Bermudez RN - 05/03/2023 12:16 AM EST Life Safety Program Consult Note Called to see Huber Keys who is a 67 y.o.male by RN for hypotension. Patient s/p completionPCI of the LAD. Admission Date/Time 05/02/2023 10:53 AM Hospital Day 0 days Problem List: Active Hospital Problems Diagnosis CAD (coronary artery disease) Resolved Hospital Problems No resolved problems to display. 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 Gout Cardiomyopathy Retroperitoneal lymphadenopathy Hydronephrosis Allergies Allergen Reactions Amoxicillin Rash Penicillin Other (See Comments) Other reaction(s): Unknown Objective: Vital Signs: Last value Range last 12 hrs Temperature Temp: 36.9 ??C (98.4 ??F) Temp: [36.9 ??C (98.4 ??F)] Heart Rate Heart Rate: 68 Heart Rate: [65-82] Blood Pressure BP: 95/57 BP: (95-143)/(57-106) Respiratory Rate Resp: 18 Resp: [12-26] SpO2 SpO2: 94 % SpO2: [88 %-100 %] Intake/Output Summary (Last 24 hours) at 05/03/2023 0016 Last data filed at 05/03/2023 0007 Gross per 24 hour Intake 985 ml Output 690 ml Net 295 ml Current Medications: Infusions: Scheduled medications: aspirin 81 mg Oral Daily atorvastatin 40 mg Oral Daily clopidogreL 75 mg Oral Daily levothyroxine 150 mcg Oral Daily tamsulosin 0.4 mg Oral Daily PRN Medications: Laboratory: Lab Results Component Value Date WBC 3.9 (L) 05/02/2023 Hemoglobin 10.3 (L) 05/02/2023 Hematocrit 30.2 (L) 05/02/2023 Platelets 282 05/02/2023 Potassium 4.4 05/02/2023 Calcium 9.5 05/02/2023 CO2 21 (L) 05/02/2023 BUN 29 (H) 05/02/2023 Creatinine 1.43 05/02/2023 Studies: Labs: CMP, Hemogram, LA Radiology: none obtained EKG: none obtained Assessment: Notified at 23:52 that patient was hypotensive to 50/32 with a recheck of 115/47. Upon LS arrival patient alert and oriented x4. Denies CP/SOB. Patient does report left shoulder pain, no radiation reported. Patient reports he was sitting edge of bed with nursing staff when he became dizzy. Patient also reports he did not eat all day due to his procedure. Blood pressure stable assoon as patient returned to a supine position. All other vital signs stable, NSR with HR's in the 60-70's. Sating mid to high 90's on RA. Afebrile. 500 cc NS bolus started. Labs obtained and sent. BP 95/57 (69). Plan for patient to receive bolus and nursing to obtain orthostatic labs prior to patient getting out of bed. Plan: Monitoring, NS bolus, labs Remain on Floor Please page #[phone] with any questions, thank you. Benita Bermudez RN 12:16 AM May 03, 2023 * Brief Op Note - Puma Hernandez MD - 05/02/2023 7:52 PM EST Images from the original note were not included. Brief Operative Note Patient Name: Huber Keys : [id number] MR#: [id number] Case Date: 05/02/2023 Surgeon: Surgeon(s) and Role: * Citlalli Esposito MD - Primary * Puma Hernandez MD - Fellow - Assisting Preoperative diagnosis: CAD Postoperative diagnosis: CAD Preliminary Cardiac Catheterization Procedure Note: Procedure(s) performed: Right Radial Access - 6 Slender Coronary Angiography PCI-Stent IVUS Angioplasty Preliminary findings: Coronary Angiography: Anatomically normal right dominant circulation LMCA: Without angiographic apparent disease LAD: Minimal luminal irregularities noted LCx: Minimal luminal irregularities noted RCA: Minimal luminal irregularities noted Contrast: 135 ccs Pre/Post: Conclusion: - Successful PCI of the of the mid-LAD with a 3.0 x 30 mm [place] ARJUN and the distal LAD witha 2.5 x 18 mm [place] ARJUN. - There was longitudinal deformation of the LM stent at the completion of the LAD procedure which was treated with a repeat kissing balloon inflation of the ostial LAD/LCX with a 3.5 NC balloon in the LAD and a 3.0 NC balloon in the LCX with excellent final IVUS. - The patient tolerated the procedure well and was transferred from the cardiac catheterization labin stable condition without apparent complications. Full report to follow. documented in this encounter Plan of Treatment Upcoming Encounters Date Type Department Care Team (Late st Contact Info) Description 10/16/2023 2:30 PM EDT Office Visit Hematology/Oncology at [address] [phone] Fiordaliza Downing APRN [facility] [place] [address] 11/10/2023 9:00 AM EDT Appointment [place] [phone] Thomas Curtis MD [facility] DR HEMATOLOGY [place] [address] 11/21/2023 11:00 AM EDT Infusion Hematology Oncology at [address] [phone] 12/05/2023 1:30 PM EDT Office Visit Hematology/Oncology at [address] [phone] Thomas Curtis MD [facility] H[place]OLOG[place] [address] Fiordaliza Downing APRN [facility] [place] [address] 12/26/2023 9:00 AM EDT Appointment Nuclear Medicine at [place] [phone] Thomas Curtis MD [facility] H[place]ATOLOG[place] [address] 02/09/2024 8:00 AM EST Appointment Nuclear Medicine at [place] [phone] Thomas Curtis MD [facility] H[place]ATOLOG[place] [address] 03/18/2024 3:00 PM EST Office Visit Cardiology at [address] [phone] Sameer Rudolph MD [facility] [place] [address] 03/22/2024 9:00 AM EST Appointment Nuclear Medicine at [place] [phone] Thomas Curtis MD [facility] [place] [address] 08/23/2024 Hospital Encounter Main Operating Room [place] [phone] True Juarez MD [facility] [place] [address] Scheduled Procedures Name Priority Associated Diagnoses Date/Ti [...] Understanding Patient Facing Action Plan Christy Bravo [facility] Note: The patient? s goal is to continue positive results of oral chemotherapy by maintaining improved labs (PSA) or stable scans in clinic for the upcoming year. documented as of this encounter Procedures Procedure Name Priority Date/Time Associated Diagnosis Comments POCT GLUCOSE Routine 05/03/2023 6:21 AM EST HEMOGRAM STAT 05/03/2023 12:10 AM EST BLOOD GAS VENOUS ([facility]) STAT 12:10 AM EST COMPREHENSIVE METABOLIC PANEL STAT 05/03/2023 12:10 AM EST EKG 12-LEAD Routine 05/02/2023 6:59 PM EST Coronary artery disease, unspecified vessel or lesion type, unspecified whether angina present, unspecified whether [place] or transplanted heart POCT GLUCOSE Routine 05/02/2023 6:51 PM EST CARDIAC CATHETERIZATION Routine 05/02/19 6:40 PM EST Coronary artery disease, unspecified vessel or lesion type, unspecified whether angina present, unspecified whether [place] or transplanted heart POCT GLUCOSE Routine 05/02/2023 3:47 PM EST BMP W/FASTING GLUCOSE STAT 05/02/2023 3:45 PM EST HEMOGRAM STAT 05/02/2023 3:45 PM EST DIFFERENTIAL, AUTOMATED STAT 05/02/19 3:45 PM EST CBC (WITH DIFF) STAT 05/02/2023 3:45 PM EST documented in this encounter Results * POCT Glucose (05/03/2023 6:21 AM EST) Glucose, POC 178 65 - 199 mg/dL [facility] Comment: Supplemental ranges: <140 mg/dL before meals <180 mg/dL all other times of the day Blood 05/03/2023 6:21 AM EST 05/03/2023 6:21 AM EST Citlalli Charles MD POINT OF CARE TEST ORDERABLES Performing Organization Address City/State/[facility] Co de Phone Number [facility] [place] [address] * (ABNORMAL) Blood Gas Venous ([facility]) (05/03/2023 12:10 AM EST) pH, Venous 7.44(H) 7.32 - 7.42 [facility] PCO2, Venous 31(L) 41 - 51 mmHg [facility] PO2, Venous 43(H) 25 - 40 mmHg [facility] Bicarbonate, Venous 20.6 mmol/L [facility] Base Excess, Venous -3.6 mmol/L [facility] Hgb Blood Gas 11.2(L) 13.7 - 16.5 g/dL [facility] Oxyhemoglobin, Venous 78.9 % [facility] Carboxyhemoglob in, Venous 0.6 % [facility] Comment: Nonsmokers: 0.5-1.5% COHB Smokers: Variable, but usually less than 10% Toxic: 20-30% COHB Lethal: Greater than 60% COHB Methemoglobin, Venous 0.3 <=1.5 % [facility] Na Whole Blood 136 135 - 145 mmol/L [facility] K Whole Blood 4.1 3.5 - 5.0 mmol/L [facility] Comment: Please note: Patients with WBC >100,000 may have falsely elevated Potassium levels. Contact the Clinical Chemistry Laboratory if there are any questions. ICa Whole Blood 1.17 1.15 - 1.33 mmol/L [facility] Comment: Note: ??Total bilirubin higher than 20 mg/dL may lead to falsely low ionized calcium. CL Whole Blood 107 98 - 107 mmol/L [facility] Gluc Whole Bld 127 65 - 199 mg/dL [facility] Comment:Diabetes: >=200 mg/d L plus symptoms Lactate WB 1.5 0.5 - 2.2 mmol/L [facility] Blood Gas Source Venous [facility] Blood Venous Draw / Unknown 05/03/2023 12:10 AM EST 05/03/2023 12:19 AM EST Narrative Resulting Agency Comment Spec In Lab Nimisha Hernandez MD CHEMISTRY ORDERABLES Performing Organization Address City/State/[facility] Co de Phone Number [facility] [place] [address] * (ABNORMAL) Comprehensive metabolic panel (non-fasting) (05/03/2023 12:10 AM EST) Glucose 135 65 - 199 mg/dL [facility] Comment:Diabetes: >=200 mg/d L plus symptoms Blood Urea Nitrogen 30(H) 10 - 20 mg/dL [facility] Creatinine 1.47 0.80 - 1.50 mg/dL [facility] Sodium 138 135 - 145 mmol/L [facility] Potassium 4.3 3.5 - 5.0 mmol/L [facility] Comment: Please note: ??Patients with WBC >100,000 may have falsely elevated Potassium levels. ??For accurate Potassium quantification in these patients send serum separator tube (gold top) for subsequent determinations. ??Contact the Clinical Chemistry Laboratory if there are any questions. Chloride 108(H) 98 - 107 mmol/L [facility] Carbon Dioxide 20(L) 22 - 31 mmol/L [facility] Anion Gap 10 5 - 15 mmol/L [facility] Calcium 8.7 8.5 - 10.5 mg/dL [facility] Protein, Total 5.5(L) 6.1 - 8.0 g/dL [facility] Albumin 3.2 3.2 - 5.2 g/dL [facility] Aspartate Aminotransferase 20 0 - 39 unit/L [facility] Alanine Aminotransferase 10 0 - 55 unit/L [facility] Alkaline Phosphatase 50 40 - 130 unit/L [facility] Bilirubin, Total 0.4 0.2 - 1.3 mg/dL [facility] Est Glomerular Filtration Rate 52(L) >=60 mL/min/1. 73 m?? [facility] Comment: This patient's estimated GFR was [...] and symptoms in addition to eGFR. Blood 05/03/2023 12:1 0 AM EST 05/03/2023 12:18 AM EST Narrative Resulting Agency Comment Spec In Lab Nimisha Hernandez MD CHEMISTRY ORDERABLES Performing Organization Address City/State/[facility] Co de Phone Number [facility] [address] * (ABNORMAL) Hemogram (05/03/2023 12:10 AM EST) White Blood Cell 4.8 4.0 - 9.5 x10(3)/mc L [facility] Red Blood Cell 2.97(L) 4.58 - 5.54 x10(6)/mc L [facility] Hemoglobin 9.5(L) 13.7 - 16.5 g/dL [facility] Hematocrit 28.0(L) 40.5 - 48.5 % [facility] Mean Cell Volume 94.3(H) 82.9 - 93.1 fL [facility] Mean Cell Hemoglobin 32.0 27.5 - 32.1 pg [facility] Mean Cell Hemoglobin Concentration 33.9 32.0 - 35.7 g/dL [facility] Platelet 235 145 - 357 x10(3)/mc L [facility] RDW Standard Deviation 53.1(H) 36.0 - 45.0 fL [facility] RDW coefficient of variation 15.2(H) 11.4 - 13.8 % [facility] Mean Platelet Volume 9.3 7.6 - 12.9 fL [facility] NRBC% auto 0.0 % [facility] NRBC Absolute 0.000 0.000 - 0.000 x10(3)/mc L [facility] Blood 05/03/2023 12:1 0 AM EST 05/03/2023 12:18 AM EST Narrative Resulting Agency Comment Spec In Lab Nimisha Hernandez MD HEMATOLOGY ORDERABLE S [facility] [place] [address] * EKG 12 Lead (05/02/2023 6:59 PM EST) Ventricular rate 66 BPM MUSE SYSTEM Atrial Rate 66 BPM MUSE SYSTEM P-R Interval 126 ms MUSE SYSTEM QRS Duration 94 ms MUSE SYSTEM Q-T Interval 442 ms MUSE SYSTEM QTC Calculated (Bezet) 463 ms MUSE SYSTEM Calculated P [place] 49 degrees MUSE SYSTEM Calculated R [place] 71 degrees MUSE SYSTEM Calculated T [place] 55 degrees MUSE SYSTEM INTERPRETATION Normal sinus rhythm Normal ECG When compared with ECG of 25-APR-2023 09:30, Nonspecific T wave abnormality no longer evident in Inferior leads Nonspecific T wave abnormality no longer evident in Lateral leads Confirmed by Luis Alberto DOBSON Mark Anthony ([id number]) on 05/03/2023 9:10:39 AM MUSE SYSTEM 05/02/2023 6:59 PM EST 05/03/2023 9:10 AM EST Citlalli Charles MD ECG ORDERABLES Performing Organization Address City/[facility]/ZIP Co de Phone Number MUSE SYSTEM * POCT Glucose (05/02/2023 6:51 PM EST) Glucose, POC 114 65 - 199 mg/dL [facility] Comment: Supplemental ranges: <140 mg/dL before meals <180 mg/dL all other times of the day Blood 05/02/2023 6:51 PM EST 05/02/2023 6:51 PM EST Citlalli Charles MD POINT OF CARE TEST ORDERABLES [facility] [place] [address] * CARDIAC CATHETERIZATION (05/02/2023 6:40 PM EST) Anatomical Region Laterality Modality Other Narrative 05/03/2023 4:52 PM EST ?[facility] ? Cardiac Catheterization/Intervention Report ? Patient Name: GénesisHuber sawant. ? Procedure Date: 05/02/2023 ? A #: [id number] ? Primary Physician: Citlalli Esposito I ? Case #: [id number] ? File Name: [id number] ? Catheterization Order Number: [id number] ? [facility] ? Final Report [place], [place] ? Patient Name: ? Huber Keys ?ID#: ?[id number] ? : ?1955 ? Procedure Date: ? May 02, 2023 ?Case #: ? [id number] ? Room: ? 2 ? Case Physician: ? Citlalli Esposito M.D. ? Start: ?15:44 ?Fellow: ? Puma Hernandez M.D. ?Admission: ??05/02/2023 ? Discharge: ??05/03/2023 ? Procedures: ?* Coronary Angiography ?* Coronary Ultrasound ?* Coronary Angioplasty ?* Coronary Stent Insertion ?* Coronary Lithotripsy ? History ?Huber Keys is a 67 year old man. He has hypertension and a ?family history of coronary artery disease. The patient's smoking status ?is Former. He has hypercholesterolemia managed with lipid therapy. 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 He has sequelae from ?diabetes. The patient has a prior history of coronary artery disease. He ?is status post a remote myocardial infarction. The patient has a history ?of an ejection fraction less than or equal to 35%. He has a history of ?CHF. The CHF is NYHA Functional Class III and is classified as Systolic. ?He has a history of carotid artery disease, a history of transient ?ischemic attacks and a calcified ascending aorta. The patient also has a ?history of cancer. Prior to the initiation of this procedure, the patient ?was designated as ASA Class III. The [facility] clinical frailty scale is 5: ?Mildly Frail. ? Diagnostic Tests: ?Prior Coronary Angiography: ? LV ejection fraction within 6 months is 29%. ?Electrocardiography: ? EKG was assessed by ECG. EKG was Normal. ?Medications Prior to Procedure: ? Aspirin, Angiotensin II Receptor Love, Beta Love and Statin. ? Indications for Diagnostic Cath: ?The priority of the diagnostic procedure was Elective. The indication for ?the technology lab teacher visit is worsening angina. Chest pain symptom assessment ?was: Typical Angina. ? Technique: ?A 6 SLFr sheath was inserted in the right radial artery utilizing the ?Seldinger technique. The left coronary artery was injected utilizing a ?6Fr EBU 3.5 catheter. Coronary angioplasty and coronary stent insertion ?were performed and the equipment utilized will be described in the ?intervention summary section. 17,000 units of heparin were administered. ?A total of 200cc of Omnipaque were opened, 135cc of Omnipaque were ?administered and 65cc of Omnipaque were wasted. Radiation: Fluoro time ?was 42.2 minutes, dose area product was 106.00 Gy/cm2 and air kerma was ?2,088 mGY. See the case log for additional details. ?The patient received the following medications prior to and during the ?procedure: ? Unfractionated Heparin and Clopidogrel. ? Hemodynamics: ?Left Heart Pressures ? Resting: ? Syst Diast ? EDP ?a ?v ? m ?Ao 100 ?? 67 ?83 ? Coronary Angiography: ?Dominance: Right ?Left Main ? There was a 10% single discrete stenosis of the ostial segment of ? the left main artery. ??The left main was large. ??The distal segment ? of the left main had a single discrete 10% stenosis. ??The previously ? placed stent is patent. ?Left Anterior Descending ? There was mild diffuse (<=25% stenosis) disease of the entire vessel ? segment of the left anterior descending artery (LAD). ??The LAD was ? large. ??The mid segment of the LAD had a calcified diffuse 80% ? stenosis. ??There also was an 80% long segmental stenosis of the ? distal segment of the LAD. ?Left Circumflex ? There was mild diffuse (<=25% stenosis) disease of the entire vessel ? segment of the left circumflex artery (LCX). ??The LCX was large. ? The ostial segment of the LCX had a single discrete 30% stenosis. ? The previously placed stent is patent. There also was a 70% single ? discrete stenosis of the distal segment of the LCX. ? There was a 70% single discrete stenosis of the proximal segment of ? the second obtuse marginal branch (OM2) of the LCX. ??The OM2 was ? moderate in size. ?Right Coronary Artery ? This vessel was not injected. ? Intravascular Imaging/Physiology: ?Intravascular Ultrasound was performed in the ostial LCX using a 6 Fr EBU ?3.5 guiding catheter and a 3.1 Fr Refinity 42 MHz catheter using auto 1 ?mm/sec pullback. ??Imaging was successful. ??Image quality was good. ??A ?vasodilator was administered. ?Indication: IVUS performed for left main disease, pre intervention ?planning and post intervention assessment. ?IVUS performed prior to any vessel manipulation. ??IVUS performed after ?vessel manipulation. ?Findings Pre-Intervention: scattered plaque. ?Findings Post-Intervention: The stent was well expanded and apposed. ?Conclusions: stent/intervention appears optimized. ?Additional Findings: There was longitudinal deformation of the ostial LM ?stent due to catheter induced injury. Kissing inflation was then ?performed and the final result was excellent with improved MLA in the ?ostial LAD and LCX and decreased stent protrusion into the aorta. ?Intravascular Ultrasound was performed in the distal LAD using a 6 Fr EBU ?3.5 guiding catheter and a 3.1 Fr Refinity 42 MHz catheter. ??Imaging was ?successful. ??Image quality was good. ?Indication: IVUS performed for pre intervention planning and post ?intervention assessment. ?IVUS performed after vessel manipulation. ?Findings Pre-Intervention: scattered plaque, calcification and with ?calcification greater than 270 degrees for greater than 5 mm. ?Findings Post-Intervention: The stent was well expanded and apposed. ?Conclusions: stent/intervention appears optimized. ?Intravascular Ultrasound was performed in the mid LAD using a 6 Fr EBU ?3.5 guiding catheter and a 3.1 Fr Refinity 42 MHz catheter. ??Imaging was ?successful. ??Image quality was good. ?Indication: IVUS performed for pre intervention planning and post ?intervention assessment. ?IVUS performed prior to any vessel manipulation. ??IVUS performed after ?vessel manipulation. ?Findings Pre-Intervention: scattered plaque, calcification, with ?calcification greater than 270 degrees for greater than 5 mm and with 360 ?degrees calcification. ?Findings Post-Intervention: The stent was well expanded and apposed. ?Conclusions: stent/intervention appears optimized. ? Indication for Intervention: ?Coronary intervention was indicated for treatment of a critical lesion ?post a myocardial infarction. The priority for the procedure was ?Elective. The NCDR indication for the procedure was Other PCI Indication. ?Syntax Score was Intermediate. Staged PCI was performed for multivessel ?disease. PCI is performed after surgical consult and Surgery Recommended, ?Patient/Family Declined. ? Intervention Summary: ?Left Main Artery ? Ostial 10% ? Angioplasty was performed on the 10% stenosis in the ostial ? segment of the left main. This was a de angélica lesion. According ? to the ACC/AHA classification system, this lesion was a type A ? low risk lesion. A guidewire was placed across this lesion. ? Vessel flow pre intervention was MAGUE 3. Lesion length was ? 20mm. ? Angioplasty was accomplished through a 6 Fr EBU 3.5 guide ? utilizing a NC EUPHORA 15 MM balloon with a maximum size of ? 3.50mm and a maximum inflation pressure of 14 atmospheres. ? The final outcome was defined as successful. A coronary ? arteriolar vasodilator was administered as part of the ? intervention on this lesion. There was no residual stenosis ? following this intervention. The final MAGUE flow was 3. ? Distal 10% ? Angioplasty was performed on the 10% stenosis in the distal ? segment of the left main. This was a de angélica lesion. This ? lesion was designated a type A low risk lesion based on ? ACC/AHA classification system. A guidewire was placed across ? this lesion. Vessel flow pre intervention was MAGUE 3. Lesion ? length was 6mm. ? Angioplasty was accomplished through a 6 Fr EBU 3.5 guide ? utilizing a NC EUPHORA 12 MM balloon with a maximum size of ? 3.00mm and a maximum inflation pressure of 14 atmospheres. ? The final outcome was defined as successful. There was no ? residual stenosis following this intervention. The final MAGUE ? flow was 3. ?Left Anterior Descending Artery ? Mid 80% ? Stent insertion was performed on the 80% stenosis in the mid ? segment of the LAD. This was a de angélica lesion. According to ? the ACC/AHA classification system, this lesion was a type C ? moderate risk lesion. Primary prevention of restenosis was the ? indication for stent insertion. A guidewire was placed across ? this lesion. Vessel flow pre intervention was MAGUE 3. Lesion ? length was 26mm. This lesion was severely calcified. ? Stent insertion was accomplished through a 6 Fr. EBU 3.5 ? guide. ??The lesion was predilated with a 3.00mm SHOCKWAVE C2 ? IVL 12 MM balloon with a maximum inflation pressure of 4 ? atmospheres. ??A premounted 3.00 x 30 mm Hebert Powhatan (ARJUN) ? was deployed with a maximum inflation pressure of 14 ? atmospheres. ??Following stent deployment, the lesion was ? dilated using a 3.00mm NC EUPHORA 15 MM balloon with a maximum ? inflation pressure of 12 atmospheres. ? The final outcome was defined as successful. A coronary ? arteriolar vasodilator was administered as part of the ? intervention on this lesion. There was no residual stenosis ? following this intervention. The final MAGUE flow was 3. ? Distal 80% ? Stent insertion was performed on the 80% stenosis in the ? distal segment of the LAD. This was a de angélica lesion. This ? lesion was designated a type B2 moderate risk lesion based on ? ACC/AHA classification system. Primary prevention of ? restenosis was the indication for stent insertion. A guidewire ? was placed across this lesion. Vessel flow pre intervention ? was MAGUE 3. Lesion length was 15mm. ? Stent insertion was accomplished through a 6 Fr. EBU 3.5 ? guide. ??The lesion was predilated with a 2.50mm NC EUPHORA 15 ? MM balloon with a maximum inflation pressure of 17 ? atmospheres. ??A premounted 2.50 x 18 mm Hebert Powhatan (ARJUN) ? was deployed with a maximum inflation pressure of 12 ? atmospheres. ??Following stent deployment, the lesion was ? dilated using a 2.50mm NC EUPHORA 15 MM balloon with a maximum ? inflation pressure of 17 atmospheres. ? The final outcome was defined as successful. A coronary ? arteriolar vasodilator was administered as part of the ? intervention on this lesion. There was no residual stenosis ? following this intervention. The final MAGUE flow was 3. ?Left Circumflex Artery ? Ostial 30% ? Angioplasty was performed on the 30% stenosis in the ostial ? segment of the LCX. This was a de angélica lesion. According to ? the ACC/AHA classification system, this lesion was a type A ? low risk lesion. A guidewire was placed across this lesion. ? Vessel flow pre intervention was MAGUE 3. Lesion length was ? 20mm. ? Angioplasty was accomplished through a 6 Fr EBU 3.5 guide ? utilizing a NC EUPHORA 12 MM balloon with a maximum size of ? 3.00mm and a maximum inflation pressure of 14 atmospheres. ? The final outcome was defined as successful. A coronary ? arteriolar vasodilator was administered as part of the ? intervention on this lesion. There was no residual stenosis ? following this intervention. The final MAGUE flow was 3. ? Vascular Access: ?Vascular Access Management: ? Mechanical Compression of the right radial artery access site was ? performed. ? Dual Antiplatelet (DAPT) Recommendations: ?Drug eluting stent (ARJUN) inserted for stable ischemic heart disease ?(SIHD). ?Patient was on chronic DAPT on arrival to the technology lab teacher. ?Recommended anti-platelet/anti-thrombotic regimen: ?Continue aspirin 81 mg daily for indefinitely. ?Continue clopidogrel 75 mg daily for 12 months then stop. ?These recommendations are made at the time of the intervention. Patient ?and provider preferences or a changing clinical situation may require ?modification of this regimen. Consult [facility] Interventional Cardiology for ?questions. ?This patient has a high DAPT score and may benefit from prolonged (12-30 ?months) dual antiplatelet therapy if the patient has completed 12 months ?of DAPT without having a major bleeding or ischemic event and the patient ?is NOT on chronic anticoagulation. This should be used for guidance in ?the overall conversation about prolonged dual antiplatelet therapy and ?not as a recommendation for or against any medical treatment. Consult ?http://tools.acc.org/DAPTriskapp/#!/content/calculator/ or [facility] ?Interventional Cardiology for questions ? Conclusions: ?* Obstructive disease of the LAD and LCX ?* Nonobstructive disease of the LM ?* Successful stent insertion of the mid LAD lesion ?* Successful stent insertion of the distal LAD lesion ?* Successful angioplasty of the distal LM lesion ?* Successful angioplasty of the ostial LCX lesion ?* Successful angioplasty of the ostial LM lesion ?* See Dual Antiplatelet (DAPT) Recommendations above ?* Successful IVUS guided PCI of the mid LAD following shockwave ?* On pulling the jailed diagonal wire out, our guide was sucked in causes ?longitidinal deformation of the proximal portion of the LM stent. We ?subsequently wired into both the LAD and LCx and performed kissing ?balloon inflations. Unfortunately prior this this first kiss the wire had ?gone behind the stent aubrey theLCx and lifted a strut in the ostial LCx. ?This was noticed on IVUS. We then rewired the the LCx through the ?approriate location and re-kissed with good result. Final IVUS showed ?good expansion and coverage of both ostial as well as the entire LM which ?was very short. Because the LM was so short, a final POT was not ?performed. ? Complications/Events: ?The patient had no complications during these procedures. ? Post Procedure Fluid Recommendations: ?IV fluid at 266 mL/hr for 4 hours for a total of 1,064 mL. These ?recommendations are made at the time of the procedure. Patient and ?provider preferences or a changing clinical situation may require ?modification of this regimen. ?The attending physician was present for the entire procedure. ?Dr. Citlalli Esposito M.D. was present during the moderate sedation ?intraservice time as documented by the sedation nurse. ??Case time = 02:48. ?Dr. Citlalli Esposito M.D. performed the coronary angiography, IVUS # ?coronary, stent insertion-coronary, lithotripsy-coronary and ?angioplasty-coronary. ? Citlalli Esposito, M.D. ? Electronically Signed by: Citlalli Goldbergry, M.D. ? Report Finalized: 05/03/2023 ??16:46 ? Report Last Ammended: 06/27/2023 ??13:13 ? Procedure Note Citlalli Esposito MD - 06/27/2023 [facility] Cardiac Catheterization/Intervention Report Patient Name: Huber Keys Procedure Date: 05/02/2023 A #: [id number] Primary Physician: Citlalli Esposito I Case #: [id number] File Name: [id number] Catheterization Order Number: [id number] [facility] FinalReport [place], [place] Patient Name: Huber Keys ID#:[id number] :1955 Procedure Date: May 02, 2023 Case #: [id number] Room: 2 Case Physician: Citlalli Esposito M.D. Start: 15:44 Fellow: Puma Hernandez M.D. Admission:05/02/2023 Discharge:05/03/2023 Procedures: * Coronary Angiography * Coronary Ultrasound * Coronary Angioplasty * Coronary Stent Insertion * Coronary Lithotripsy History Huber Keys is a 67 year old man. He has hypertension and a family history of coronary artery disease. The patient's smokingstatus is Former. He has hypercholesterolemia managed with lipid therapy.The patient has insulin dependent diabetes mellitus. He has sequelaefrom diabetes. The patient has a prior history of coronary arterydisease. He is status post a remote myocardial infarction. The patient has ahistory of an ejection fraction less than or equal to 35%. He has a historyof CHF. The CHF is NYHA Functional Class III and is classified asSystolic. He has a history of carotid artery disease, a history of transient ischemic attacks and a calcified ascending aorta. The patient alsohas a history of cancer. Prior to the initiation of this procedure, thepatient was designated as ASA Class III. The [facility] clinical frailty scale is5: Mildly Frail. Diagnostic Tests: Prior Coronary Angiography: LV ejection fraction within 6 months is 29%. Electrocardiography: EKG was assessed by ECG. EKG was Normal. Medications Prior to Procedure: Aspirin, Angiotensin II Receptor Love, Beta Love andStatin. Indications for Diagnostic Cath: The priority of the diagnostic procedure was Elective. Theindication for the technology lab teacher visit is worsening angina. Chest pain symptomassessment was: Typical Angina. Technique: A 6 SLFr sheath was inserted in the right radial artery utilizingthe Seldinger technique. The left coronary artery was injected utilizinga 6Fr EBU 3.5 catheter. Coronary angioplasty and coronary stentinsertion were performed and the equipment utilized will be described in the intervention summary section. 17,000 units of heparin wereadministered. A total of 200cc of Omnipaque were opened, 135cc of Omnipaque were administered and 65cc of Omnipaque were wasted. Radiation: Fluorotime was 42.2 minutes, dose area product was 106.00 Gy/cm2 and air kermawas 2,088 mGY. See the case log for additional details. The patient received the following medications prior to and duringthe procedure: Unfractionated Heparin and Clopidogrel. Hemodynamics: Left Heart Pressures Resting: Syst Diast EDP a v m Ao 100 67 83 Coronary Angiography: Dominance: Right Left Main There was a 10% single discrete stenosis of the ostial segmentof the left main artery. The left main was large. The distalsegment of the left main had a single discrete 10% stenosis. Thepreviously placed stent is patent. Left Anterior Descending There was mild diffuse (<=25% stenosis) disease of the entirevessel segment of the left anterior descending artery (LAD). The LADwas large. The mid segment of the LAD had a calcified diffuse 80% stenosis. There also was an 80% long segmental stenosis of the distal segment of the LAD. Left Circumflex There was mild diffuse (<=25% stenosis) disease of the entirevessel segment of the left circumflex artery (LCX). The LCX waslarge. The ostial segment of the LCX had a single discrete 30%stenosis. The previously placed stent is patent. There also was a 70%single discrete stenosis of the distal segment of the LCX. There was a 70% single discrete stenosis of the proximalsegment of the second obtuse marginal branch (OM2) of the LCX. The OM2was moderate in size. Right Coronary Artery This vessel was not injected. Intravascular Imaging/Physiology: Intravascular Ultrasound was performed in the ostial LCX using a 6Fr EBU 3.5 guiding catheter and a 3.1 Fr Refinity 42 MHz catheter usingauto 1 mm/sec pullback. Imaging was successful. Image quality was good.A vasodilator was administered. Indication: IVUS performed for left main disease, pre intervention planning and post intervention assessment. IVUS performed prior to any vessel manipulation. IVUS performedafter vessel manipulation. Findings Pre-Intervention: scattered plaque. Findings Post-Intervention: The stent was well expanded and apposed. Conclusions: stent/intervention appears optimized. Additional Findings: There was longitudinal deformation of theostial LM stent due to catheter induced injury. Kissing inflation was then performed and the final result was excellent with improved MLA inthe ostial LAD and LCX and decreased stent protrusion into the aorta. Intravascular Ultrasound was performed in the distal LAD using a 6Fr EBU 3.5 guiding catheter and a 3.1 Fr Refinity 42 MHz catheter. Imagingwas successful. Image quality was good. Indication: IVUS performed for pre intervention planning and post intervention assessment. IVUS performed after vessel manipulation. Findings Pre-Intervention: scattered plaque, calcification and with calcification greater than 270 degrees for greater than 5 mm. Findings Post-Intervention: The stent was well expanded and apposed. Conclusions: stent/intervention appears optimized. Intravascular Ultrasound was performed in the mid LAD using a 6 FrEBU 3.5 guiding catheter and a 3.1 Fr Refinity 42 MHz catheter. Imagingwas successful. Image quality was good. Indication: IVUS performed for pre intervention planning and post intervention assessment. IVUS performed prior to any vessel manipulation. IVUS performedafter vessel manipulation. Findings Pre-Intervention: scattered plaque, calcification, with calcification greater than 270 degrees for greater than 5 mm andwith 360 degrees calcification. Findings Post-Intervention: The stent was well expanded and apposed. Conclusions: stent/intervention appears optimized. Indication for Intervention: Coronary intervention was indicated for treatment of a criticallesion post a myocardial infarction. The priority for the procedure was Elective. The NCDR indication for the procedure was Other PCIIndication. Syntax Score was Intermediate. Staged PCI was performed formultivessel disease. PCI is performed after surgical consult and SurgeryRecommended, Patient/Family Declined. Intervention Summary: Left Main Artery Ostial 10% Angioplasty was performed on the 10% stenosis in theostial segment of the left main. This was a de angélica lesion.According to the ACC/AHA classification system, this lesion was atype A low risk lesion. A guidewire was placed across thislesion. Vessel flow pre intervention was MAGUE 3. Lesion lengthwas 20mm. Angioplasty was accomplished through a 6 Fr EBU 3.5 guide utilizing a NC EUPHORA 15 MM balloon with a maximum sizeof 3.50mm and a maximum inflation pressure of 14atmospheres. The final outcome was defined as successful. A coronary arteriolar vasodilator was administered as part of the intervention on this lesion. There was no residualstenosis following this intervention. The final MAGUE flow was 3. Distal 10% Angioplasty was performed on the 10% stenosis in thedistal segment of the left main. This was a de angélica lesion. This lesion was designated a type A low risk lesion based on ACC/AHA classification system. A guidewire was placedacross this lesion. Vessel flow pre intervention was MAGUE 3.Lesion length was 6mm. Angioplasty was accomplished through a 6 Fr EBU 3.5 guide utilizing a NC EUPHORA 12 MM balloon with a maximum sizeof 3.00mm and a maximum inflation pressure of 14atmospheres. The final outcome was defined as successful. There was no residual stenosis following this intervention. The finalTIMI flow was 3. Left Anterior Descending Artery Mid 80% Stent insertion was performed on the 80% stenosis in themid segment of the LAD. This was a de angélica lesion. Accordingto the ACC/AHA classification system, this lesion was a typeC moderate risk lesion. Primary prevention of restenosiswas the indication for stent insertion. A guidewire was placedacross this lesion. Vessel flow pre intervention was MAGUE 3.Lesion length was 26mm. This lesion was severely calcified. Stent insertion was accomplished through a 6 Fr. EBU 3.5 guide. The lesion was predilated with a 3.00mm SHOCKWAVEC2 IVL 12 MM balloon with a maximum inflation pressure of 4 atmospheres. A premounted 3.00 x 30 mm [place] Powhatan(ARJUN) was deployed with a maximum inflation pressure of 14 atmospheres. Following stent deployment, the lesion was dilated using a 3.00mm NC EUPHORA 15 MM balloon with amaximum inflation pressure of 12 atmospheres. The final outcome was defined as successful. A coronary arteriolar vasodilator was administered as part of the intervention on this lesion. There was no residualstenosis following this intervention. The final MAGUE flow was 3. Distal 80% Stent insertion was performed on the 80% stenosis in the distal segment of the LAD. This was a de angélica lesion.This lesion was designated a type B2 moderate risk lesionbased on ACC/AHA classification system. Primary prevention of restenosis was the indication for stent insertion. Aguidewire was placed across this lesion. Vessel flow preintervention was MAGUE 3. Lesion length was 15mm. Stent insertion was accomplished through a 6 Fr. EBU 3.5 guide. The lesion was predilated with a 2.50mm NCEUPHORA 15 MM balloon with a maximum inflation pressure of 17 atmospheres. A premounted 2.50 x 18 mm [place] Pow[place](ARJUN) was deployed with a maximum inflation pressure of 12 atmospheres. Following stent deployment, the lesion was dilated using a 2.50mm NC EUPHORA 15 MM balloon with amaximum inflation pressure of 17 atmospheres. The final outcome was defined as successful. A coronary arteriolar vasodilator was administered as part of the intervention on this lesion. There was no residualstenosis following this intervention. The final MAGUE flow was 3. Left Circumflex Artery Ostial 30% Angioplasty was performed on the 30% stenosis in theostial segment of the LCX. This was a de angélica lesion. Accordingto the ACC/AHA classification system, this lesion was a typeA low risk lesion. A guidewire was placed across thislesion. Vessel flow pre intervention was MAGUE 3. Lesion lengthwas 20mm. Angioplasty was accomplished through a 6 Fr EBU 3.5 guide utilizing a NC EUPHORA 12 MM balloon with a maximum sizeof 3.00mm and a maximum inflation pressure of 14atmospheres. The final outcome was defined as successful. A coronary arteriolar vasodilator was administered as part of the intervention on this lesion. There was no residualstenosis following this intervention. The final MAGUE flow was 3. Vascular Access: Vascular Access Management: Mechanical Compression of the right radial artery access sitewas performed. Dual Antiplatelet (DAPT) Recommendations: Drug eluting stent (ARJUN) inserted for stable ischemic heart disease (SIHD). Patient was on chronic DAPT on arrival to the technology lab teacher. Recommended anti-platelet/anti-thrombotic regimen: Continue aspirin 81 mg daily for indefinitely. Continue clopidogrel 75 mg daily for 12 months then stop. These recommendations are made at the time of the intervention.Patient and provider preferences or a changing clinical situation mayrequire modification of this regimen. Consult [facility] Interventional Cardiologyfor questions. This patient has a high DAPT score and may benefit from prolonged(12-30 months) dual antiplatelet therapy if the patient has completed 12months of DAPT without having a major bleeding or ischemic event and thepatient is NOT on chronic anticoagulation. This should be used for guidancein the overall conversation about prolonged dual antiplatelet therapyand not as a recommendation for or against any medical treatment.Consult http://tools.acc.org/DAPTriskapp/#!/content/calculator/ or [facility] Interventional Cardiology for questions Conclusions: * Obstructive disease of the LAD and LCX * Nonobstructive disease of the LM * Successful stent insertion of the mid LAD lesion * Successful stent insertion of the distal LAD lesion * Successful angioplasty of the distal LM lesion * Successful angioplasty of the ostial LCX lesion * Successful angioplasty of the ostial LM lesion * See Dual Antiplatelet (DAPT) Recommendations above * Successful IVUS guided PCI of the mid LAD following shockwave * On pulling the jailed diagonal wire out, our guide was sucked incauses longitidinal deformation of the proximal portion of the LM stent. We subsequently wired into both the LAD and LCx and performed kissing balloon inflations. Unfortunately prior this this first kiss thewire had gone behind the stent aubrey theLCx and lifted a strut in the ostialLCx. This was noticed on IVUS. We then rewired the the LCx through the approriate location and re-kissed with good result. Final IVUSshowed good expansion and coverage of both ostial as well as the entire LMwhich was very short. Because the LM was so short, a final POT was not performed. Complications/Events: The patient had no complications during these procedures. Post Procedure Fluid Recommendations: IV fluid at 266 mL/hr for 4 hours for a total of 1,064 mL. These recommendations are made at the time of the procedure. Patient and provider preferences or a changing clinical situation may require modification of this regimen. The attending physician was present for the entire procedure. Dr. Citlalli Esposito M.D. was present during the moderate sedation intraservice time as documented by the sedation nurse. Case time =02:48. Dr. Citlalli Esposito M.D. performed the coronary angiography, IVUS # coronary, stent insertion-coronary, lithotripsy-coronary and angioplasty-coronary. Citlalli Esposito M.D. Electronically Signed by: Citlalli Esposito M.D. Report Finalized: 05/03/2023 16:46 Report Last Ammended: 06/27/2023 13:13 Citlalli Charles MD CARDIAC CATH ORDERA BLES * POCT Glucose (05/02/2023 3:47 PM EST) [facility] Signature Glucose, POC 112 65 - 199 mg/dL [facility] Comment: Supplemental ranges: <140 mg/dL before meals <180 mg/dL all other times of the day Blood 05/02/2023 3:47 PM EST 05/02/2023 3:47 PM EST Citlalli Charles MD POINT OF C[place] [address] * (ABNORMAL) Differential, Automated (05/02/2023 3:45 PM EST) Pathologist [facility] Neutrophil % 37.2 % [facility] Neutrophil Absolute 1.46(L) 1.70 - 6.10 x10(3)/[facility] Lymph % 32.1 % [facility] Lymphocytes Abs 1.3 0.9 - 3.2 x10(3)/[facility] Monocyte % 12.2 % [facility] Monocyte Abs 0.5 0.3 - 0.9 x10(3)/[facility] Eos % 15.6 % [facility] Eosinophils Abs 0.6(H) 0.0 - 0.4 x10(3)/[facility] Basophil % 2.6 % [facility] Baso Absolute 0.1 0.0 - 0.1 x10(3)/[facility] Immature Gran % 0.30 % [facility] Comment: Immature granulocytes(IG's)percentage and absolute count will include metamyelocytes, myelocytes, and promyelocytes. Blood smears from CBCs yielding IG's will be scanned manually for concordance. If this scan disagrees with the automated IG or if promyelocytes are noted, a manual differential will be performed. Immature Gran Absolute 0.01 0.00 - 0.04 x10(3)/[facility] Blood 05/02/2023 3:45 PM EST 05/02/2023 4:09 PM EST Narrative Resulting Agency Comment Spec In Lab Puma Hernandez MD [place] [address] * (ABNORMAL) Hemogram (05/02/2023 3:45 PM EST) White Blood Cell 3.9(L) 4.0 - 9.5 x10(3)/[facility] Red Blood Cell 3.23(L) 4.58 - 5.54 x10(6)/mc L [facility] Hemoglobin 10.3(L) 13.7 - 16.5 g/dL [facility] Hematocrit 30.2(L) 40.5 - 48.5 % [facility] Mean Cell Volume 93.5(H) 82.9 - 93.1 fL [facility] Mean Cell Hemoglobin 31.9 27.5 - 32.1 pg [facility] Mean Cell Hemoglobin Concentration 34.1 32.0 - 35.7 g/dL [facility] Platelet 282 145 - 357 x10(3)/mc L [facility] RDW Standard Deviation 52.8(H) 36.0 - 45.0 fL [facility] RDW coefficient of variation 15.3(H) 11.4 - 13.8 % [facility] Mean Platelet Volume 9.5 7.6 - 12.9 fL [facility] NRBC% auto 0.0 % [facility] NRBC Absolute 0.000 0.000 - 0.000 x10(3)/[facility] Blood 05/02/2023 3:45 PM EST 05/02/2023 4:09 PM EST Narrative Resulting Agency Comment Spec In Lab Puma Hernandez MD HEMATOLOGY ORDERABLE S Performing Organization Address City/State/[facility] Co de Phone Number [facility] [place] [address] * (ABNORMAL) BMP w/fasting Glucose (05/02/2023 3:45 PM EST) Glucose Fasting 119(H) 65 - 99 mg/dL [facility] Comment: ?Fasting* Glucose Interpretive Criteria Normal ?65-99 mg/dL Impaired Fasting glucose ?100-125 mg/dL Consistent with Diabetes Mellitus ? >or= 126 mg/dL *Fasting is defined as no caloric intake for at least 8 hours In the absence of unequivocal hyperglycemia a plasma glucose value of >or= 126 mg/dL should be repeated on a subsequent day. Diagnosis and Classification of Diabetes Mellitus, Position Statement from the [place] [facility] Association. ??Diabetes Care, Volume 33, Supplement 1, Mar 2009 Blood Urea Nitrogen 29(H) 10 - 20 mg/dL [facility] Creatinine 1.43 0.80 - 1.50 mg/dL [facility] Sodium 136 135 - 145 mmol/L [facility] Potassium 4.4 3.5 - 5.0 mmol/L [facility] Comment: Please note: ??Patients with WBC >100,000 may have falsely elevated Potassium levels. ??For accurate Potassium quantification in these patients send serum separator tube (gold top) for subsequent determinations. ??Contact the Clinical Chemistry Laboratory if there are any questions. Chloride 107 98 - 107 mmol/L [facility] Carbon Dioxide 21(L) 22 - 31 mmol/L [facility] Anion Gap 8 5 - 15 mmol/L [facility] Calcium 9.5 8.5 - 10.5 mg/dL [facility] Est Glomerular Filtration Rate 53(L) >=60 mL/min/1. 73 m?? [facility] Comment: This patient's estimated GFR was [...] and symptoms in addition to eGFR. Blood 05/02/2023 3:45 PM EST 05/02/2023 4:09 PM EST Narrative Resulting Agency Comment Spec In Lab Citlalli Charles MD CHEMISTRY ORDERABLE S [facility] [place] [address] documented in this encounter Visit Diagnoses Diagnosis Coronary artery disease, unspecified vessel or lesion type, unspecified whether angina present, unspecified whether [place] or transplanted heart Malignant neoplasm of prostate metastatic to bone Malignant neoplasm of prostate Coronary artery disease, unspecified vessel or lesion type, unspecified whether angina present, unspecified whether [place] or transplanted heart documented in this encounter Admitting Diagnoses Diagnosis CAD (coronary artery disease) Coronary atherosclerosis of unspecified type of vessel, [place] or graft documented in this encounter Administered Medications Inactive Administered Medications - up to 3 most recent administrations Medication Order MAR Action Action Date Dose Rate Site aspirin chewable tablet 81 mg 81 mg, Oral, DAILY, First dose on Mon05/03/23 at 0900, Until Discontinued, Routine Given 05/03/2023 8:28 AM EST 81 mg atorvastatin (Lipitor) tablet 40 mg 40 mg, Oral, DAILY, First dose on Mon05/03/23 at 0900, Until Discontinued, Routine Given 05/03/2023 8:28 AM EST 40 mg clopidogreL (Plavix) tablet 75 mg 75 mg, Oral, DAILY, First dose on Mon05/03/23 at 0900, Until Discontinued, Routine Given 05/03/2023 8:28 AM EST 75 mg levothyroxine (Synthroid) tablet 150 mcg 150 mcg, Oral, DAILY, First dose on Mon05/03/23 at 0900, Until Discontinued, Routine Given 05/03/2023 8:28 AM EST 150 mcg melatonin tablet 3 mg 3 mg, Oral, NIGHTLY PRN, Starting on Mon05/03/23 at 0326, Until Mon05/03/23 at 1419, Insomnia, Routine sodium chloride 0.9% infusion 75 mL/hr, Intravenous, CONTINUOUS, Starting on Mon05/02/23 at 1915, Until Mon05/03/23 at 0014, Recovery (Recovery-Hospital Unit) New Bag 05/02/2023 7:12 PM EST 75 mL/hr 75 mL/ hr sodium chloride 0.9% infusion 500 mL/hr, Intravenous, ONCE, 1 dose, On Mon05/03/23 at 0100 New Bag 05/03/2023 12:05 AM EST 500 mL/hr 500 mL/hr tamsulosin (Flomax) capsule 0.4 mg 0.4 mg, Oral, DAILY, First dose on Mon05/03/23 at 0900, Until Discontinued, DO NOT CRUSH OR CHEW, Routine Given 05/03/2023 8:28 AM EST 0.4 mg documented in this encounter Active and Recently Administered Medications Times are shown in EST. Scheduled Medication Order 05/01/2023 05/02/2023 05/03/2023 aspirin chewable tablet 81 mg 81 mg, Oral, DAILY, First dose on Mon05/03/23 at 0900, Until Discontinued, Routine 0828 (Given - Provid er: Kalli Lincoln RN) atorvastatin (Lipitor) tablet 40 mg 40 mg, Oral, DAILY, First dose on Mon05/03/23 at 0900, Until Discontinued, Routine 0828 (Given - Provid er: Kalli Lincoln RN) clopidogreL (Plavix) tablet 75 mg 75 mg, Oral, DAILY, First dose on Mon05/03/23 at 0900, Until Discontinued, Routine 0828 (Given - Provid er: Kalli Lincoln RN) levothyroxine (Synthroid) tablet 150 mcg 150 mcg, Oral, DAILY, First dose on Mon05/03/23 at 0900, Until Discontinued, Routine 0828 (Given - Provid er: Kalli Lincoln RN) sodium chloride 0.9% infusion (COMPLETED) 500 mL/hr, Intravenous, ONCE, 1 dose, On Mon05/03/23 at 0100 0005 (New Bag - Prov ider: Archana Oneal RN) tamsulosin (Flomax) capsule 0.4 mg 0.4 mg, Oral, DAILY, First dose on Mon05/03/23 at 0900, Until Discontinued, DO NOT CRUSH OR CHEW, Routine 0828 (Given - Provid er: Kalli Lincoln RN) Continuous Medication Order 05/01/2023 05/02/2023 05/03/2023 sodium chloride 0.9% infusion 75 mL/hr, Intravenous, CONTINUOUS, Starting on Mon05/02/23 at 1915, Until Mon05/03/23 at 0014, Recovery (Recovery-Hospital Unit) 191 (New Bag - Provider: Carly Pelletier RN) PRN Medication Order 05/01/2023 05/02/2023 05/03/2023 fentaNYL (pf) (50 mcg/mL) multi-dose injection (CANCELED) PRN, Starting on Mon05/02/23 at 1545, Until Mon05/02/23 at 1833, Intra-Operative (Intra-Procedure), Routine 1545 (Given - Provider: Meghan Tejada RN)1722 (Given - Provider: Meghan Tejada RN)1754 (Given - Provider: Gian Joshua) heparin (porcine) (1,000 units/mL) injection (CANCELED) PRN, Starting on Mon05/02/23 at 1554, Until Mon05/02/23 at 1833, Intra-Operative (Intra-Procedure), Routine 1554 (Given - Provider: Meghan Tejada RN)1627 (Given - Provider: Meghan Tejada RN)1708 (Given - Provider: Meghan Tejada RN)1730 (Given - Provider: Evangelist Lam, SHIVAM)1741 (Given - Provider: Gian Joshua) melatonin tablet 3 mg 3 mg, Oral, NIGHTLY PRN, Starting on Mon05/03/23 at 0326, Until Mon05/03/23 at 1419, Insomnia, Routine midazolam (pf) (Versed) (1 mg/mL) multi-dose injection (CANCELED) PRN, Starting on Mon05/02/23 at 1545, Until Mon05/02/23 at 1833, Intra-Operative (Intra-Procedure), Routine 1545 (Given - Provider: Meghan Tejada RN)1754 (Given - Provider: Gian Joshua) nitroGLYcerin 100 mcg/mL intracoronary dilution (CANCELED) PRN, Starting on Mon05/02/23 at 1547, Until Mon05/02/23 at 1833, Intra-Operative (Intra-Procedure), Routine 1547 (Given - Provider: Puma Hernandez MD)1602 (Given - Provider: Puma Hernandez MD) verapamiL (Isoptin) (2.5 mg/mL) injection (CANCELED) PRN, Starting on Mon05/02/23 at 1546, Until Mon05/02/23 at 1833, Administer over 2 Minutes, Intra-Operative (Intra-Procedure) 1546 (Given - Provider: Puma Hernandez MD) documented in this encounter Care Teams Reservation Clerk Relationship Specialty Start Date End Date Nicolasa Valenzuela PA [address] [place] [address] PCP - General Family Medicine 12/20/21 documented as of this encounter
--- OUTSIDE RECORDS SUMMARY | 2023-10-16 03:11 | XMS_ITS | Encounter Summary ---
Author Organization Formerly [facility] [place] [address] Care Team Providers Care Jewelry Polisher Name Role Phone Nicolasa Valenzuela Primary Care Pro vider Reason for Visit * Auth/Cert (Routine) Specialty Diagnoses / Procedures Referred By Toño mayorga Referred To Contact Diagnoses Coronary artery disease, unspecified vessel or lesion type, unspecified whether angina present, unspecified whether [place] or transplanted heart Coronary artery disease, unspecified vessel or lesion type, unspecified whether angina present, unspecified whether [place] or transplanted heart [I25.10] Procedures PRG CATH PLMT LEFT HEART CATH & ARTS W/INJ & ANGIO IMG S&I CARDIAC CATHETERIZATION CORONARY ANGIOGRAPHY; W [facility],POSSIBLE PCI (WRVU 5.6) Citlalli Esposito MD [facility] [place] [address] [facility] Referral ID Status Reason Start Date Expiration Date Visits Re quested Visits Authorized [id number] 1 1 Encounter Details Date Type Department Care Team (Late st Contact Info) Description 05/02/2023 1:00 PM EST - 05/02/2023 2:30 PM EST [place] [address] Citlalli Esposito MD [facility] [address] [place], [place] [id number] CARDIAC CATHETERIZATION Social History Tobacco Use Types Packs/Day Years Used Date Smoking Tobacco: Never Smokeless Tobacco: Never Tobacco Cessation:Counseling Given: Not Answered Alcohol Use Standard Drinks/Week Comments Not Currently 0 (1 standard drink = 0.6 oz pur e alcohol) [facility] Utilities Answer Date Recorded [...] Sign Reading Time Taken Comments Blood Pressure 140/71 05/02/2023 1:59 PM EST Pulse 71 05/02/2023 1:59 PM EST Temperature 36.1 ??C (97 ??F) 05/02/2023 1:59 PM EST Respiratory Rate 16 05/02/2023 1:59 PM EST Oxygen Saturation 100% 05/02/2023 1:59 PM EST Inhaled Oxygen Concentration - - Weight [...] Huber Keys Patient Age: 67 y.o. Language: Kyrgyz Race: White Ethnicity: Not nor Admit date: 05/02/2023 Discharge date and time: 05/03/2023 Attending Physician: No att. providers found Follow-up Recommendations for Providers: - Patient should be on dual antiplatelet therapy with aspirin 81 mg daily indefinitely and plavix 75 mg daily for at least 1 year, indefinitely if tolerated. Inpatient Provider Contact Information: For questions regarding this document or issues relating to this hospitalization on the Medical Service, please contact your inpatient physician through the [facility] Service Developer . Issues afterhours and on weekends will be handled by the gin clerk on-call. Discharge Diagnoses (Hospital Problems) and Secondary Diagnoses (Chronic Problems): Active Hospital Problems Diagnosis CAD (coronary artery disease) Resolved Hospital Problems No resolved problems to display. 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 - There was longitudinal deformation of [...] HYDROcodone-acetaminophen 5-325 mg tablet Commonly known as: [place] Take 1 tablet by mouth every 6 [...] Center 05/23/2023 9:00 AM [address] MD [facility] [place] [facility] 09/04/2023 3:00 PM Sameer Rudolph MD [facility] Your Inpatient Doctor: Citlalli Charles MD Your Primary Care Provider: JESSE Nesbitt [phone] For questions regarding this document or issues relating to this hospitalization on the Medical Service, please contact your inpatient physician through the [facility] Service Developer . Issues afterhours and on weekends will be handled by the Hospitalist staff on-call. General Instructions None Future Appointments and Orders Future Appointments and Orders Future Appointments Provider Department Dept Phone 05/23/2023 9:00 AM Fiordaliza Downing APRN; Thomas Curtis MD Hematology/Oncology at [facility] Arrive at: [facility] door at end of hallway [phone] 09/04/2023 3:00 PM Sameer Rudolph MD Cardiology at [place] Arrive at: [facility] [address] [phone] Discharge References/Attachments None documented in this encounter [...] Clin 09/04/2023 3:00 PM Sameer Rudolph MD [facility] Your Inpatient Doctor: Citlalli Charles MD Your Primary Care Provider: JESSE Nesbitt [phone] For questions regarding this document or issues relating to this hospitalization on the Medical Service, please contact your inpatient physician through the [facility] Service Developer . Issues afterhours and on weekends will [...] 150 mcg by mouth daily. HYDROcodone-acetamino phen ([place]) 5-325 mg tablet Take 1 tablet by [...] Lincoln RN - 05/03/2023 12:18 PM EST [facility] Short Stay Unit Discharge Note All [...] 80 D1: os 70 3.5 x 26 [place] LCx Os FIRE CREW SPECIALIST 3.0 x 34 Hebert RCA PDA: Os 70 NB: Intervened on a different day than diagnostic cath whilst evaluated for CABG (not a candidate).AD/Cx intervention as mini-crush into LM) Hypercholesterolemia Hypothyroidism Traumatic plantar fasciitis Type 2 diabetes mellitus Prostate cancer metastatic to multiple sites 10/04/2022 Surgical Pathology DIAGNOSIS A - Lymph node, biopsy: - Metastatic carcinoma, consistent with prostatic origin (see discussion) [place]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 HYDROcodone-acetaminophen ([place]) 5-325 mg tablet Take 1 tablet by [...] Intimate Partner Violence: Not At Risk (04/13/2023) DH IPV Inpatient Questions Prevent Contact with Others: [...] Huber Keys PCP: JESSE Nesbitt PCP Referring Electrical Wiring Lineman: Sameer Rudolph MD Reason for Referral: Completion [...] Take 150 mcg by mouth daily. HYDROcodone-acetaminophen ([place]) 5-325 mg tablet Take 1 tablet by [...] encounter Miscellaneous Notes * Consult Note - Janette Garrett RN - 05/03/2023 7:57 AM EST This patient was seen on 04/19/2022 by a member of the cardiac rehab team. He was referred to [facility] cardiac rehab at that time. He is s/p PCI of the LAD yesterday. Will send an updated discharge summary to [facility] cardiac rehab. 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 Benita Bermudez RN 12:16 AM May 03, 2023 * Brief Op Note - Puma Hernandez MD - 05/02/2023 7:52 PM EST Images from the original note were not included. Brief Operative Note Patient Name: Huber Keys : [id number] MR#: [id number] Case Date: 05/02/2023 Surgeon: Surgeon(s) and Role: [...] mid-LAD with a 3.0 x 30 mm Hebert Wythe ARJUN and the distal LAD witha 2.5 x 18 mm Hebert Wythe ARJUN. - There was longitudinal deformation of [...] 2:30 PM EDT Office Visit Hematology/Oncology at [address] [phone] Fiordaliza Downing APRN [facility] [place] [address] 11/10/2023 9:00 AM EDT Appointment [place] [phone] Thomas Curtsi MD [facility] HEMATOLOGY [place] [address] 11/21/2023 11:00 AM EDT Infusion Hematology Oncology at [address] [phone] 12/05/2023 1:30 PM EDT Office Visit Hematology/Oncology at [address] [phone] Thomas Curtis MD [facility] HEMATOLOGY [place] [address] Fiordaliza Downing APRN [facility] [place] [address] 12/26/2023 9:00 AM EDT Appointment [place] [phone] Thomas Curtis MD [facility] HEMATOLOGY [place] [address] 02/09/2024 8:00 AM EST Appointment [place] [phone] Thomas Curtis MD [facility] HEMATOLOGY [place] [address] 03/18/2024 3:00 PM EST Office Visit Cardiology at [address] [phone] Sameer Rudolph MD [facility] [place] [address] 03/22/2024 9:00 AM EST Appointment [place] [phone] Thomas Curtis MD [facility] HEMATOLOGY [place] [address] 08/23/2024 Hospital Encounter [place] [address] True Juarez MD [facility] [place] [address] Scheduled Procedures Name Priority Associated Diagnoses Date/Ti [...] and Understanding Patient Facing Action Plan Christy rBavo, [facility] Note: The patient? s goal [...] type, unspecified whether angina present, unspecified whether [place] or transplanted heart POCT GLUCOSE Routine 05/02/2023 6:51 PM EST CARDIAC CATHETERIZATION Routine 05/02/19 6:40 PM EST Coronary artery disease, unspecified vessel or lesion type, unspecified whether angina present, unspecified whether [place] or transplanted heart POCT GLUCOSE Routine 05/02/2023 3:47 PM EST BMP W/FASTING GLUCOSE STAT 05/02/2023 3:45 PM EST HEMOGRAM STAT 05/02/2023 3:45 PM EST DIFFERENTIAL, AUTOMATED STAT 05/02/19 3:45 PM EST CBC (WITH DIFF) STAT 05/02/2023 3:45 PM EST documented in this encounter Results * POCT Glucose (05/03/2023 6:21 AM EST) Glucose, POC 178 65 - 199 mg/dL [facility] Comment: Supplemental ranges: <140 mg/dL before meals <180 mg/dL all other times of the day Blood 05/03/2023 6:21 AM EST 05/03/2023 6:21 AM EST Citlalli Charles MD POINT OF CARE TEST ORDERABLES [facility] [address] * (ABNORMAL) Blood Gas Venous ([facility]) (05/03/2023 12:10 AM EST) pH, Venous 7.44(H) 7.32 - 7.42 [facility] PCO2, Venous 31(L) 41 - 51 mmHg [facility] PO2, Venous 43(H) 25 - 40 mmHg [facility] Bicarbonate, Venous 20.6 mmol/L [facility] Base Excess, Venous -3.6 mmol/L [facility] Hgb Blood Gas 11.2(L) 13.7 - 16.5 g/dL [facility] Oxyhemoglobin, Venous 78.9 % [facility] Carboxyhemoglob in, Venous 0.6 % [facility] Comment: Nonsmokers: 0.5-1.5% COHB Smokers: Variable, but usually less than 10% Toxic: 20-30% COHB Lethal: Greater than 60% COHB Methemoglobin, Venous 0.3 <=1.5 % [facility] Na Whole Blood 136 135 - 145 mmol/L [facility] K Whole Blood 4.1 3.5 - 5.0 mmol/L [facility] Comment: Please note: Patients with WBC >100,000 may have falsely elevated Potassium levels. Contact the Clinical Chemistry Laboratory if there are any questions. ICa Whole Blood 1.17 1.15 - 1.33 mmol/L [facility] Comment: Note: ??Total bilirubin higher than 20 mg/dL may lead to falsely low ionized calcium. CL Whole Blood 107 98 - 107 mmol/L [facility] Gluc Whole Bld 127 65 - 199 mg/dL [facility] Comment:Diabetes: >=200 mg/d L plus symptoms Lactate WB 1.5 0.5 - 2.2 mmol/L [facility] Blood Gas Source Venous [facility] Blood Venous Draw / Unknown 05/03/2023 12:10 AM EST 05/03/2023 12:19 AM EST Narrative Resulting Agency Comment Spec In Lab Nimisha Hernandez MD CHEMISTRY ORDERABLES [facility] [address] [place] [address] * (ABNORMAL) Comprehensive metabolic panel (non-fasting) (05/03/2023 12:10 AM EST) Glucose 135 65 - 199 mg/dL [facility] Comment:Diabetes: >=200 mg/d L plus symptoms Blood Urea Nitrogen 30(H) 10 - 20 mg/dL [facility] Creatinine 1.47 0.80 - 1.50 mg/dL [facility] Sodium 138 135 - 145 mmol/L [facility] Potassium 4.3 3.5 - 5.0 mmol/L [facility] Comment: Please note: ??Patients with WBC >100,000 may have falsely elevated Potassium levels. ??For accurate Potassium quantification in these patients send serum separator tube (gold top) for subsequent determinations. ??Contact the Clinical Chemistry Laboratory if there are any questions. Chloride 108(H) 98 - 107 mmol/L [facility] Carbon Dioxide 20(L) 22 - 31 mmol/L [facility] Anion Gap 10 5 - 15 mmol/L [facility] Calcium 8.7 8.5 - 10.5 mg/dL [facility] Protein, Total 5.5(L) 6.1 - 8.0 g/dL [facility] Albumin 3.2 3.2 - 5.2 g/dL [facility] Aspartate Aminotransferase 20 0 - 39 unit/L [facility] Alanine Aminotransferase 10 0 - 55 unit/L [facility] Alkaline Phosphatase 50 40 - 130 unit/L [facility] Bilirubin, Total 0.4 0.2 - 1.3 mg/dL [facility] Est Glomerular Filtration Rate 52(L) >=60 mL/min/1. 73 m?? [facility] Comment: This patient's estimated GFR was [...] Hernandez MD CHEMISTRY ORDERABLES Performing Organization Address City/State/[facility] Co de Phone Number [facility] [address] * (ABNORMAL) Hemogram (05/03/2023 12:10 AM EST) White Blood Cell 4.8 4.0 - 9.5 x10(3)/mc L [facility] Red Blood Cell 2.97(L) 4.58 - 5.54 x10(6)/mc L [facility] Hemoglobin 9.5(L) 13.7 - 16.5 g/dL [facility] Hematocrit 28.0(L) 40.5 - 48.5 % [facility] Mean Cell Volume 94.3(H) 82.9 - 93.1 fL [facility] Mean Cell Hemoglobin 32.0 27.5 - 32.1 pg [facility] Mean Cell Hemoglobin Concentration 33.9 32.0 - 35.7 g/dL [facility] Platelet 235 145 - 357 x10(3)/mc L [facility] RDW Standard Deviation 53.1(H) 36.0 - 45.0 fL [facility] RDW coefficient of variation 15.2(H) 11.4 - 13.8 % [facility] Mean Platelet Volume 9.3 7.6 - 12.9 fL [facility] NRBC% auto 0.0 % [facility] NRBC Absolute 0.000 0.000 - 0.000 x10(3)/mc L [facility] Blood 05/03/2023 12:1 0 AM EST 05/03/2023 12:18 AM EST Narrative Resulting Agency Comment Spec In Lab Nimisha Hernandez MD HEMATOLOGY ORDERABLE S Performing Organization Address City/[facility]/ZIP Co de Phone Number [facility] [address] * EKG 12 Lead (05/02/2023 6:59 PM EST) Ventricular rate 66 BPM MUSE SYSTEM Atrial Rate 66 BPM MUSE SYSTEM P-R Interval 126 ms MUSE SYSTEM QRS Duration 94 ms MUSE SYSTEM Q-T Interval 442 ms MUSE SYSTEM QTC Calculated (Bezet) 463 ms MUSE SYSTEM Calculated P [place] 49 degrees MUSE SYSTEM Calculated R [place] 71 degrees MUSE SYSTEM Calculated T [place] 55 degrees MUSE SYSTEM INTERPRETATION Normal sinus rhythm Normal ECG When compared with ECG of 25-APR-2023 09:30, Nonspecific T wave abnormality no longer evident in Inferior leads Nonspecific T wave abnormality no longer evident in Lateral leads Confirmed by Mark Anthony Sahu MD (49) on 05/03/2023 9:10:39 AM MUSE SYSTEM 05/02/2023 6:59 PM EST 05/03/2023 9:10 AM EST Citlalli Charles MD ECG ORDERABLES Performing Organization Address City/[facility]/ZIP Co de Phone Number MUSE SYSTEM * POCT Glucose (05/02/2023 6:51 PM EST) Glucose, POC 114 65 - 199 mg/dL [facility] Comment: Supplemental ranges: <140 mg/dL before meals <180 mg/dL all other times of the day Blood 05/02/2023 6:51 PM EST 05/02/2023 6:51 PM EST Citlalli Charles MD POINT OF CARE TEST ORDERABLES Performing Organization Address City/[facility]/ZIP Co de Phone Number [facility] [place] [place] [address] * CARDIAC CATHETERIZATION (05/02/2023 6:40 PM EST) Anatomical Region Laterality Modality Other Narrative 05/03/2023 4:52 PM EST ?[facility] ? Cardiac Catheterization/Intervention Report ? Patient Name: Huber Keys. ? Procedure Date: 05/02/2023 ? A #: [id number] ? Primary Physician: Citlalli Esposito I ? Case #: [id number] ? File Name: [id number] ? Catheterization Order Number: [id number] ? [facility] ? Final Report [place], [place] ? Patient Name: ? Huber Keys ?ID#: ?[id number] ? : ?1955 ? Procedure Date: ? May 02, 2023 ?Case #: ? [id number] ? Room: ? 2 ? Case Physician: ? Citlalli Esposito M.D. ? Start: ?15:44 ?Fellow: ? Puma Hernandez, M.D. ?Admission: ??05/02/2023 ? Discharge: ??05/03/2023 ? [...] ?was designated as ASA Class III. The HA clinical frailty scale is 5: ?Mildly Frail. ? Diagnostic Tests: ?Prior Coronary Angiography: ? LV ejection fraction within 6 months is 29%. ?Electrocardiography: ? EKG was assessed by ECG. EKG was Normal. ?Medications Prior to Procedure: ? Aspirin, Angiotensin II Receptor Love, Beta Love and Statin. ? Indications for Diagnostic Cath: ?The priority of the diagnostic procedure was Elective. The indication for ?the labeling strategist visit is worsening angina. Chest pain symptom [...] atmospheres. ??A premounted 3.00 x 30 mm [place] Wythe (ARJUN) ? was deployed with a maximum [...] atmospheres. ??A premounted 2.50 x 18 mm [place] Wythe (ARJUN) ? was deployed with a maximum [...] on chronic DAPT on arrival to the labeling strategist. ?Recommended anti-platelet/anti-thrombotic regimen: ?Continue aspirin 81 mg daily for indefinitely. ?Continue clopidogrel 75 mg daily for 12 months then stop. ?These recommendations are made at the time of the intervention. Patient ?and provider preferences or a changing clinical situation may require ?modification of this regimen. Consult [facility] Interventional Cardiology for ?questions. [...] against any medical treatment. Consult ?http://tools.acc.org/DAPTriskapp/#!/content/calculator/ or [facility] ?Interventional Cardiology for questions [...] stent insertion-coronary, lithotripsy-coronary and ?angioplasty-coronary. ? Citlalli I Vaibhav, M.D. ? Electronically Signed by: Citlalli I Vaibhav, M.D. ? Report Finalized: 05/03/2023 ??16:46 ? Report Last Ammended: 06/27/2023 ??13:13 ? Procedure Note Citlalli Esposito MD - 06/27/2023 [facility] Cardiac Catheterization/Intervention Report Patient Name: Huber Keys Procedure Date: 05/02/2023 A #: [id number] Primary Physician: Citlalli Esposito I Case #: [id number] File Name: [id number] Catheterization Order Number: [id number] [facility] FinalReport [place], [place] Patient Name: Huber Keys ID#:[id number] :1955 Procedure Date: May 02, 2023 Case [...] was designated as ASA Class III. The [facility] clinical frailty scale is5: Mildly Frail. Diagnostic Tests: Prior Coronary Angiography: LV ejection fraction within 6 months is 29%. Electrocardiography: EKG was assessed by ECG. EKG was Normal. Medications Prior to Procedure: Aspirin, Angiotensin II Receptor Love, Beta Love andStatin. Indications for Diagnostic Cath: The priority of the diagnostic procedure was Elective. Theindication for the labeling strategist visit is worsening angina. Chest pain symptomassessment [...] atmospheres. A premounted 3.00 x 30 mm Hebert Wythe(ARJUN) was deployed with a maximum inflation pressure [...] atmospheres. A premounted 2.50 x 18 mm [place] Wythe(ARUJN) was deployed with a maximum inflation pressure [...] on chronic DAPT on arrival to the labeling strategist. Recommended anti-platelet/anti-thrombotic regimen: Continue aspirin 81 mg daily for indefinitely. Continue clopidogrel 75 mg daily for 12 months then stop. These recommendations are made at the time of the intervention.Patient and provider preferences or a changing clinical situation mayrequire modification of this regimen. Consult [facility] Interventional Cardiologyfor questions. This [...] or against any medical treatment.Consult http://tools.acc.org/DAPTriskapp/#!/content/calculator/ or [facility] Interventional Cardiology for questions [...] * POCT Glucose (05/02/2023 3:47 PM EST) Glucose, POC 112 65 - 199 mg/dL [facility] Comment: Supplemental ranges: <140 mg/dL before meals <180 mg/dL all other times of the day Blood 05/02/2023 3:47 PM EST 05/02/2023 3:47 PM EST Citlalli Charles MD POINT OF CARE TEST ORDERABLES [facility] [address] * (ABNORMAL) Differential, Automated (05/02/2023 3:45 PM EST) Neutrophil % 37.2 % [facility] Neutrophil Absolute 1.46(L) 1.70 - 6.10 x10(3)/[facility] Lymph % 32.1 % [facility] Lymphocytes Abs 1.3 0.9 - 3.2 x10(3)/[facility] Monocyte % 12.2 % [facility] Monocyte Abs 0.5 0.3 - 0.9 x10(3)/[facility] Eos % 15.6 % [facility] Eosinophils Abs 0.6(H) 0.0 - 0.4 x10(3)/[facility] Basophil % 2.6 % [facility] Baso Absolute 0.1 0.0 - 0.1 x10(3)/[facility] Immature Gran % 0.30 % [facility] Comment: Immature granulocytes(IG's)percentage and absolute count will include metamyelocytes, myelocytes, and promyelocytes. Blood smears from CBCs yielding IG's will be scanned manually for concordance. If this scan disagrees with the automated IG or if promyelocytes are noted, a manual differential will be performed. Immature Gran Absolute 0.01 0.00 - 0.04 x10(3)/[facility] Blood 05/02/2023 3:45 PM EST 05/02/2023 4:09 PM EST Narrative Resulting Agency Comment Spec In Lab Puma Hernandez MD HEMATOLOGY ORDERABLE S [facility] [place] [address] * (ABNORMAL) Hemogram (05/02/2023 3:45 PM EST) White Blood Cell 3.9(L) 4.0 - 9.5 x10(3)/[facility] Red Blood Cell 3.23(L) 4.58 - 5.54 x10(6)/[facility] Hemoglobin 10.3(L) 13.7 - 16.5 g/dL [facility] Hematocrit 30.2(L) 40.5 - 48.5 % [facility] Mean Cell Volume 93.5(H) 82.9 - 93.1 fL [facility] Mean Cell Hemoglobin 31.9 27.5 - 32.1 pg [facility] Mean Cell Hemoglobin Concentration 34.1 32.0 - 35.7 g/dL [facility] Platelet 282 145 - 357 x10(3)/mc L [facility] RDW Standard Deviation 52.8(H) 36.0 - 45.0 fL [facility] RDW coefficient of variation 15.3(H) 11.4 - 13.8 % [facility] Mean Platelet Volume 9.5 7.6 - 12.9 fL [facility] NRBC% auto 0.0 % [facility] NRBC Absolute 0.000 0.000 - 0.000 x10(3)/mc L [facility] Blood 05/02/2023 3:45 PM EST 05/02/2023 4:09 PM EST Narrative Resulting Agency Comment Spec In Lab Puma Hernandez MD HEMATOLOGY ORDERABLE S [facility] [place] [address] * (ABNORMAL) BMP w/fasting Glucose (05/02/2023 3:45 PM EST) Glucose Fasting 119(H) 65 - 99 mg/dL [facility] Comment: ?Fasting* Glucose Interpretive Criteria Normal [...] of Diabetes Mellitus, Position Statement from the [employer]. ??Diabetes Care, Volume 33, Supplement 1, Mar 2009 Blood Urea Nitrogen 29(H) 10 - 20 mg/dL [facility] Creatinine 1.43 0.80 - 1.50 mg/dL [facility] Sodium 136 135 - 145 mmol/L [facility] Potassium 4.4 3.5 - 5.0 mmol/L [facility] Comment: Please note: ??Patients with WBC >100,000 may have falsely elevated Potassium levels. ??For accurate Potassium quantification in these patients send serum separator tube (gold top) for subsequent determinations. ??Contact the Clinical Chemistry Laboratory if there are any questions. Chloride 107 98 - 107 mmol/L [facility] Carbon Dioxide 21(L) 22 - 31 mmol/L [facility] Anion Gap 8 5 - 15 mmol/L [facility] Calcium 9.5 8.5 - 10.5 mg/dL [facility] Est Glomerular Filtration Rate 53(L) >=60 mL/min/1. 73 m?? [facility] Comment: This patient's estimated GFR was [...] Lab Citlalli Charles MD CHEMISTRY ORDERABLE S [facility] [place] [address] documented in this encounter Visit Diagnoses Diagnosis Coronary artery disease, unspecified vessel or lesion type, unspecified whether angina present, unspecified whether [place] or transplanted heart Malignant neoplasm of prostate metastatic to bone Malignant neoplasm of prostate Coronary artery disease, unspecified vessel or lesion type, unspecified whether angina present, unspecified whether [place] or transplanted heart documented in this encounter Admitting Diagnoses Diagnosis CAD (coronary artery disease) Coronary atherosclerosis of unspecified type of vessel, [place] or graft documented in this encounter Administered [...] Given 05/03/2023 8:28 AM EST 75 mg fentaNYL (pf) (50 mcg/mL) multi-dose injection PRN, Starting on Mon05/02/23 at 1545, Until Mon05/02/23 at 1833, Intra-Operative (Intra-Procedure), Routine Given 05/02/2023 5:54 PM EST 12.5 mcg Given 05/02/2023 5:22 PM EST 25 mcg Given 05/02/2023 3:45 PM EST 25 mcg heparin (porcine) (1,000 units/mL) injection PRN, Starting on Mon05/02/23 at 1554, Until Mon05/02/23 at 1833, Intra-Operative (Intra-Procedure), Routine Given 05/02/2023 5:41 PM EST 2,000 Units Given 05/02/2023 5:30 PM EST 2,000 Units Given 05/02/2023 5:08 PM EST 3,000 Units levothyroxine (Synthroid) tablet 150 mcg 150 mcg, Oral, DAILY, First dose on Mon05/03/23 at 0900, Until Discontinued, Routine Given 05/03/2023 8:28 AM EST 150 mcg melatonin tablet 3 mg 3 mg, Oral, NIGHTLY PRN, Starting on Mon05/03/23 at 0326, Until Mon05/03/23 at 1419, Insomnia, Routine midazolam (pf) (Versed) (1 mg/mL) multi-dose injection PRN, Starting on Mon05/02/23 at 1545, Until Mon05/02/23 at 1833, Intra-Operative (Intra-Procedure), Routine Given 05/02/2023 5:54 PM EST 0.5 mg Given 05/02/2023 3:45 PM EST 1 mg nitroGLYcerin 100 mcg/mL intracoronary dilution PRN, Starting on Mon05/02/23 at 1547, Until Mon05/02/23 at 1833, Intra-Operative (Intra-Procedure), Routine Given 05/02/2023 4:02 PM EST 200 mcg Given 05/02/2023 3:47 PM EST 150 mcg sodium chloride 0.9% infusion 75 mL/hr, Intravenous, [...] Given 05/03/2023 8:28 AM EST 0.4 mg verapamiL (Isoptin) (2.5 mg/mL) injection PRN, Starting on Mon05/02/23 at 1546, Until Mon05/02/23 at 1833, Administer over 2 Minutes, Intra-Operative (Intra-Procedure) Given 05/02/2023 3:46 PM EST 2.5 mg documented in this encounter Active and Recently Administered Medications Times are shown in EST. Scheduled Medication Order 05/01/2023 05/02/2023 05/03/2023 aspirin chewable tablet 81 mg 81 mg, Oral, DAILY, First dose on Mon05/03/23 at 0900, Until Discontinued, Routine 827 (Given - Provid er: Kalli Lincoln RN) atorvastatin (Lipitor) tablet 40 mg 40 mg, Oral, DAILY, First dose on Mon05/03/23 at 0900, Until Discontinued, Routine 827 (Given - Provid er: Kalli Lincoln RN) clopidogreL (Plavix) tablet 75 mg 75 mg, Oral, DAILY, First dose on Mon05/03/23 at 0900, Until Discontinued, Routine 08 (Given - Provid er: Kalli Lincoln RN) levothyroxine (Synthroid) tablet 150 mcg 150 mcg, Oral, DAILY, First dose on Mon05/03/23 at 0900, Until Discontinued, Routine 08 (Given - Provid er: Kalli Lincoln RN) sodium chloride 0.9% infusion (COMPLETED) 500 mL/hr, Intravenous, ONCE, 1 dose, On Mon05/03/23 at 0100 0005 (New Bag - Prov ider: Archana Oneal RN) tamsulosin (Flomax) capsule 0.4 mg 0.4 mg, Oral, DAILY, First dose on Mon05/03/23 at 0900, Until Discontinued, DO NOT CRUSH OR CHEW, Routine 827 (Given - Provid er: Kalli Lincoln RN) Continuous Medication Order 05/01/2023 05/02/2023 05/03/2023 sodium chloride 0.9% infusion 75 mL/hr, Intravenous, CONTINUOUS, Starting on Mon05/02/23 at 1915, Until Mon05/03/23 at 0014, Recovery (Recovery-Hospital Unit) 1911 (New Bag - Provider: Carly Pelletier RN) [...] Meghan Tejada RN)1627 (Given - Provider: Meghan Tejada, SHIVAM)1708 (Given - Provider: Meghan Tejada, RN)1730 (Given - Provider: Evangelist Lam, SHIVAM)1741 [...] MD) documented in this encounter Care Teams Jewelry Polisher Relationship Specialty Start Date End Date Nicolasa Valenzuela PA [address] [place] [address] PCP - General Family Medicine 12/20/21 documented as of this encounter
--- OUTSIDE RECORDS SUMMARY | 2023-10-16 03:11 | XMS_ITS | Encounter Summary ---
Author Organization Formerly [facility], [facility] Address [facility] [place] [address] Care Team Providers Care Barrel Cutter Name Role Phone Nicolasa Valenzuela Primary Care Pro vider Encounter Details Date Type Department Care Team (Late st Contact Info) Description 05/17/2023 12:05 AM EDT Ancillary Procedure [place] [address] Thomas Curtis MD [facility] [address] [place] [address] Social History Tobacco Use Types Packs/Day Years Used Date Smoking Tobacco: Never Smokeless Tobacco: Never Alcohol Use Standard Drinks/Week Comments Not Currently 0 (1 standard drink = 0.6 oz pur e alcohol) [facility] Utilities Answer Date Recorded In the past 12 months has anchor.travel, gas, oil, or water [employer] threatened to shut off services in your [...] PM EDT Office Visit Hematology/Oncology at [address] [phone] Fiordaliza Downing APRN [facility] [place] [address] 11/10/2023 9:00 AM EDT Appointment [place] [phone] Thomas Curtis MD [facility] [place] [address] 11/21/2023 11:00 AM EDT Infusion Hematology Oncology at [address] [phone] 12/05/2023 1:30 PM EDT Office Visit Hematology/Oncology at [address] [phone] Thomas Curtis MD [facility] [place] [address] Fiordaliza Downing APRN [facility] [place] [address] 12/26/2023 9:00 AM EDT Appointment [place] [phone] Thomas Curtis MD [facility] [place] [address] 02/09/2024 8:00 AM EST Appointment [place] [phone] Thomas Curtis MD [facility] [place] [address] 03/18/2024 3:00 PM EST Office Visit Cardiology at [address] [place] [phone] Sameer Rudolph MD [facility] [place] [address] 03/22/2024 9:00 AM EST Appointment [place] [phone] Thomas Curtis MD [facility] [place] [address] 08/23/2024 Hospital Encounter Main Operating Room [facility] [place] [phone] True Juarez MD [facility] [place] [address] Scheduled Procedures Name Priority Associated Diagnoses Date/Ti [...] Understanding Patient Facing Action Plan Christy Bravo [facility] Note: The patient? s goal is to continue positive results of oral chemotherapy by maintaining improved labs (PSA) or stable scans in clinic for the upcoming year. documented as of this encounter Procedures Procedure Name Priority Date/Time Associated Diagnosis Comments FILM LIBRARY STORAGE ONLY CT CHEST ABDOMEN PELVIS Routine 05/17/2023 12:05 AM EDT documented in this encounter Results * Film Library- Storage Only CT Chest Abdomen Pelvis (05/17/2023 12:05 AM EDT) Narrative [facility] - 05/18/2023 9:57 AM EDT This exam is auto-finalizing. It's purpose is for storage only. Thomas Curtis MD G FILM LIBRARY ORD ERABLES [place], [place] documented in this encounter Visit Diagnoses Not on filedocumented in this encounter Care Teams Barrel Cutter Relationship Specialty Start Date End Date Nicolasa Valenzuela PA [address] [place] [address] PCP - General Family Medicine 12/20/21 documented as of this encounter
--- OUTSIDE RECORDS SUMMARY | 2023-10-16 03:11 | XMS_ITS | Encounter Summary ---
Author Organization [facility] [place] [address] Care Team Providers Care Osd Clerk Name Role Phone Nicolasa Valenzuela Primary Care Pro vider Reason for Referral * Diagnostic Test (Routine) - Closed Specialty Diagnoses / Procedures Referred By Toño mayorga Referred To Contact Radiology Diagnoses Prostate cancer metastatic to multiple sites Procedures NM PET CT PSMA Prostate (Illuccix) Thomas Branch MD [facility] DR HEMATOLOGY AND [place] [address] [place] [address] Referral ID Status Reason Start Date Expiration Date V isits Requested Visits Authorized [id number] Closed Specialty Service Requested 05/23/2023 11/22/2024 1 1 Encounter Details Date Type Department Care Team (Late st Contact Info) Description 05/23/2023 9:00 AM EDT Office Visit Hematology/Oncology at [address] [phone] Thomas Brnach MD [facility] DR HEMATOLOGY AND [place] [address] Fiordaliza Downing APRN [facility] MEDICAL [place] [address] Prostate cancer metastatic to multiple sites (Primary Dx) Social History Tobacco Use Types Packs/Day Years Used Date Smoking Tobacco: Never Smokeless Tobacco: Never Alcohol Use Standard Drinks/Week Comments Not Currently 0 (1 standard drink = 0.6 oz pur e alcohol) [facility] Utilities Answer Date Recorded In the past 12 months has th e [employer], gas, oil, or water [employer] threatened to shut off services in your [...] Sign Reading Time Taken Comments Blood Pressure 92/52 05/23/2023 8:59 AM EDT Pulse 74 05/23/2023 8:59 AM EDT Temperature 36.8 ??C (98.2 ??F) 05/23/2023 8:59 AM ED T Respiratory Rate 16 05/23/2023 8:59 AM EDT Oxygen Saturation 100% 05/23/2023 8:59 AM EDT Inhaled Oxygen Concentration - - Weight 83.5 kg (184 lb) 05/23/2023 8:59 AM EDT Height 178.4 cm (5' 10.24) 05/23/2023 8:59 AM E DT Body Mass Index 26.22 05/23/2023 8:59 AM EDT documented in this encounter Progress Notes * Thomas Branch MD - 05/23/2023 9:00 AM EDT Images from the original [...] metastatic prostate cancer and discussion on restaging scans. He developed chest pain and was admitted with heart attack on April 12. He had cardiac catheterization with placement of 2 stents on April 18 and another 1 catheterization was 2 more stents on May 02. He has started cardiac rehab yesterday. Overall, he feels better. No dyspnea. Denies chest pain. Leg swelling is gradually improving. Has occasional low back pain. No new pain. No other focal complaints REVIEW OF SYSTEMS: As in interval history PAST MEDICAL HISTORY: AK 04/12/2023, cardiac catheterization on April 18 and May 02 with total of 4 stents placed Cardiomyopathy, T2DM, HLD, hypothyroidism, CKD for which he follows with his PCP Patient Active Problem List Diagnosis CAD (coronary artery disease) ASCVD (arteriosclerotic cardiovascular disease) Cardiac Catheterization: (04/2023) RIGHT dominance Indication: NSTE-ACS LVEDP 25 Artery Lesion Intervention LM Distal 80 POBA LAD Os 95 Mid 70 Distal 80 D1: os 70 3.5 x 26 Hebert LCx Os CHICKEN SEXER 3.0 x 34 [place]el RCA PDA: Os 70 NB: Intervened on a different day than diagnostic cath whilst evaluated for CABG (not a candidate).AD/Cx intervention as mini-crush into LM) Hypercholesterolemia Hypothyroidism Traumatic plantar fasciitis Type 2 diabetes mellitus Prostate cancer metastatic to multiple sites 10/04/2022 Surgical Pathology DIAGNOSIS A - Lymph node, biopsy: - Metastatic carcinoma, consistent with prostatic origin (see discussion) [place] light chain deposition disease Gout Cardiomyopathy 09/2022: [...] Take 0.4 mg by mouth daily. Yes levothyroxine (Synthroid) 150 mcg tablet Take 150 mcg by mouth daily. Yes HYDROcodone-acetaminophen (Tracy) 5-325 mg tablet Take 1 tablet by mouth every 6 hours as needed for Pain. Yes atorvastatin (Lipitor) 40 mg tablet Take 1 tablet by mouth daily. Yes cholecalciferol (Vitamin D3) 1,000 unit tablet Take 1 tablet by mouth daily. Yes Lantus Solostar U-100 Insulin 100 unit/mL (3 mL) pen Inject 8 Units subcutaneously daily. Patient taking differently: Inject 8-10 Units subcutaneously daily. Yes nitroGLYcerin (Nitrostat) 0.[address] 1 tablet under the tongue every 5 minutes as needed for Chest pain. Patient not taking: Reported on 05/23/2023 acetaminophen (Tylenol) 325 mg tablet Take 650 mg by mouth 3 times daily. ALLERGY: Allergies Allergen Reactions Amoxicillin Rash Penicillin Other (See Comments) Other reaction(s): Unknown FAMILY HX: Mother had breast cancer Family History Problem Relation Age of Onset Breast Cancer Mother 73 Heart Failure Father Heart Surgery Father Diabetes Sister Cancer Paternal Uncle 55 unknown primary, suspected stomach/abdominal SOCIAL HX:-Works part-time as a [place] [employer], lives by himself. He is here with his friend today who is a breast cancer survivor and runs a local support group. He lives in [place], [place]. 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 General: NAD Head: NCAT Eyes: Not [...] Lymphoid tissue is not readily identified. LABS: BUN 37, creatinine 1.7, calcium 8.9, AST [...] platelet count 330, ANC 3.76 PSA testosteron 05/16/23 29.8 <7 03/21/23 15.8 <7.0 02/28/23 28.9 <7 02/06/23 63.0 01/18/23 49.5 33 12/14/21 111 IMAGING STUDIES: 05/17/2023 nuclear bone scan: Impression: Small focal [...] twice daily Efficacy was based on ARASENS ([id number]), a randomized, multicenter, double- blind, placebo-controlled clinical trial in 1306 patients with mHSPC. Patients were randomized to receive either darolutamide 600 mg orally twice daily plus docetaxel 75 mg/m2 intravenously administered every 3 weeks forup to 6 cycles or docetaxel plus placebo. All patients received a gonadotropin-releasing hormone analog concurrently or had a bilateral orchiectomy. The primary efficacy measure was overall survival (OS). Ogia-ew-zsxr progression was an additional efficacy measure. Median OS was not reached (NR) (95% CI: NR, NR) in the darolutamide plus docetaxelarm and 48.9 months (95% CI: 44.4, NR) in docetaxel plus placebo arm (HR 0.68; 95% CI: 0.57, 0.80; p<0.0001). Treatment with darolutamide and docetaxel resulted in a statistically significant delay in tkmk-ms-qukc progression (HR 0.79; 95% CI: 0.66, 0.95; [...] about 3 weeks 05/23/2023 Mr. Keys developed AK and underwent to cardiac catheterization with total [...] risk of darolutamide I will discontinue Nubeqa. Discussed benefits and risks of Pluvicto treatment [...] be the safest option in regards to cardiomyopathy/AK/congestive heart failure. Discussed benefits and risks of Pluvicto. We will see him back with blood work and restaging PSMA PET scan in about 5 weeks to finalize the plan. # Germline and somatic mutation testing: Has been referred to familial cancer program, will do 170 gene panel testing and MMR testing # Cardiomyopathy had AK on April 12, 2023, underwent two PCIs with 4 stent placement : Follows with Dr. Rudolph #Port placement: per patient request. Referral sent to [facility] which is more convenient for Bill. #CKD: Had bilateral stent placed. Next ureteral stent replacement p in July 2023. Chronic, creatinine is elevated at 1.8 which is overall stable. Follows with PCP. Plan: D/c darolutamide Lupron 22.5 mg today 3. PSMA PET scan 1 week prior to next visit 4. Next visit with MD with CBC, CMP, PSA, testosterone in 5 weeks THOMAS BRANCH MD All questions were answered and patient verbalized understanding and no further questions. documented in this encounter Plan of Treatment Upcoming Encounters Date Type Department Care Team (Late Contact Info) Description 10/16/2023 2:30 PM EDT Office Visit Hematology/Oncology at [address] [phone] Fiordaliza Downing APRN [facility] MEDICAL [place] [address] 11/10/2023 9:00 AM EDT Appointment [place] [phone] Thomas Branch MD [facility] HEMATOLOGY AND [place] [address] 11/21/2023 11:00 AM EDT Infusion Hematology Oncology at [address] [phone] 12/05/2023 1:30 PM EDT Office Visit Hematology/Oncology at [address] [phone] Thomas Branch MD [facility] HEMATOLOGY AND [place] [address] Fiordaliza oDwning APRN [facility] MEDICAL [place] [address] 12/26/2023 9:00 AM EDT Appointment [place] [phone] Thoams Branch MD [facility] HEMATOLOGY AND [place] [address] 02/09/2024 8:00 AM EST Appointment [place] [phone] Thomas Branch MD [facility] HEMATOLOGY AND [place] [address] 03/18/2024 3:00 PM EST Office Visit Cardiology at [address] [place] [address] Sameer Rudolph MD [facility] [place] [address] 03/22/2024 9:00 AM EST Appointment [place] [phone] Thomas Branch MD [facility] HEMATOLOGY AND [place] [address] 08/23/2024 Hospital Encounter [place] [address] True Juarez MD [facility] [place] [address] Scheduled Procedures Name Priority Associated [...] Understanding Patient Facing Action Plan Christy Bravo, [facility] Note: The patient? s goal is to continue positive results of oral chemotherapy by maintaining improved labs (PSA) or stable scans in clinic for the upcoming year. documented as of this encounter Results * NM PET CT PSMA Prostate (Illuccix) (06/22/2023 8:01 AM EDT) WORKSTATION ID [id number] RAD Anatomical Region Laterality Modality Positron Emissio [...] you for referring this patient to [facility]. Thank you for letting us participate in the care of this patient. ??If you are a health care provider and have any questions regarding this report, please contact the number below. ??For patients who have questions please contact the health healthcare educator that requested your imaging first. ? Narrative 06/22/2023 4:26 PM EDT EXAMINATION: NM [...] avid foci in the Gerota's fascia bilaterally ( and 234). Increased activity in the right [...] you for referring this patient to [facility]. Thank you for letting us participate in the care of this patient. If youare a health care provider and have any questions regarding this report,please contact the number below. For patients who have questions please contactthe health healthcare educator that requested your imaging first. Thomas Branch MD IMG PET ORDERABLES documented in this encounter Visit Diagnoses Diagnosis Prostate cancer metastatic to multiple sites- Primary Malignant neoplasm of prostate Prostate cancer metastatic to multiple sites Malignant neoplasm of prostate documented in this encounter Care Teams Osd Clerk Relationship Specialty Start Date End Date Nicolasa Valenzuela PA [address] [place] [address] PCP - General Family Medicine 12/20/21 documented as of this encounter
--- OUTSIDE RECORDS SUMMARY | 2023-10-16 03:11 | XMS_ITS | Encounter Summary ---
Author Organization [facility] Address [facility] [place] [address] Care Team Providers Care Wildlife Conservation Officer Name Role Phone Nicolasa Valenzuela Primary Care Pro vider Encounter Details Date Type Department Care Team (Late st Contact Info) Description 05/02/2023 Telephone Hematology/Oncology at [address] [phone] Elisha Montoya Social History Tobacco Use Types Packs/Day Years Used Date Smoking Tobacco: Never Smokeless Tobacco: Never Alcohol Use Standard Drinks/Week Comments Not Currently 0 (1 standard drink = 0.6 oz pur e alcohol) [facility] Utilities Answer Date Recorded In the [...] * Telephone Encounter - Elisha Montoya - 05/02/2023 10:50 AM EST I called to let Griffin know that his appt has changed from 05/09/23 to 05/23/23 after he has his bonescan and ct/cap. I had to leave a message. I will mail out a new appointment letter documented in this encounter Plan of Treatment Upcoming Encounters Date Type Department Care Team (Late st Contact Info) Description 10/16/2023 2:30 PM EDT Office Visit Hematology/Oncology at [address] [phone] Fiordaliza Downing EHS SPECIALIST [facility] [place] [address] 11/10/2023 9:00 AM EDT Appointment [place] [address] Thomas Curtis MD [facility] HEMATOLOGY [place] [address] 11/21/2023 11:00 AM EDT Infusion Hematology Oncology at [address] [phone] 12/05/2023 1:30 PM EDT Office Visit Hematology/Oncology at [address] [phone] Thomas Curtis MD [facility] DR HEMATOLOGY [place] [address] Fiordaliza Downing APRN [facility] [place] [address] 12/26/2023 9:00 AM EDT Appointment [place] [address] Thomas Curtis MD [facility] HEMATOLOGY [place] [address] 02/09/2024 8:00 AM EST Appointment [place] [address] Thomas Curtis MD [facility] HEMATOLOGY [place] [address] 03/18/2024 3:00 PM EST Office Visit Cardiology at [address] [phone] Sameer Rudolph MD [facility] [place] [address] 03/22/2024 9:00 AM EST Appointment [place] [phone] Thomas Curtis MD [facility] HEMATOLOGY [place] [address] 08/23/2024 Hospital Encounter [place] [address] True Juarez MD [facility] UROLOGY [place], [place] [phone] Scheduled Procedures Name Priority Associated Diagnoses Date/Ti [...] on filedocumented in this encounter Care Teams Wildlife Conservation Officer Relationship Specialty Start Date End Date Nicolasa Valenzuela PA [address] [place] [address] PCP - General Family Medicine 12/20/21 documented as of this encounter
--- OUTSIDE RECORDS SUMMARY | 2023-10-16 03:11 | XMS_ITS | Encounter Summary ---
Author Organization [facility] Address [facility] [place] [address] Care Team Providers Care Strategic Client Executive Name Role Phone Nicolasa Valenzuela Primary Care Pro vider Reason for Visit * Reason Onset Date Comments Other 04/19/2023 Stay off nubeqa Encounter Details Date Type Department Care Team (Late st Contact Info) Description 04/19/2023 Telephone Hematology/Oncology at [address] [phone] Cara Pham RN Other (Stay off nubeqa) Social History Tobacco Use Types Packs/Day Years Used Date Smoking Tobacco: Never Smokeless Tobacco: Never Alcohol Use Standard Drinks/Week Comments Not Currently 0 (1 standard drink = 0.6 oz pur e alcohol) [facility] Utilities Answer Date Recorded In the past 12 months has [employer], gas, oil, or water [employer] threatened to shut off services in your [...] Telephone Encounter - Cara Pham RN - 04/19/2023 3:20 PM EST Pt called asking if he can restart his nubeqa, he had two heart stents placed yesterday and is feeling very good. Per Dr. Curtis pt is to stay off nubeqa at this time. We will see him on may 08and discuss restarting then. His priority is to get his heart well and heal from procedures. Pt agrees with this plan. documented in this encounter Plan of Treatment Upcoming Encounters Date Type Department Care Team (Late st Contact Info) Description 10/16/2023 2:30 PM EDT Office Visit Hematology/Oncology at [address] [phone] Fiordaliza Downing APRN [facility] [place] [address] 11/10/2023 9:00 AM EDT Appointment [place] [address] Thomas Curtis MD [facility] [place] [address] 11/21/2023 11:00 AM EDT Infusion Hematology Oncology at [address] [phone] 12/05/2023 1:30 PM EDT Office Visit Hematology/Oncology at [address] [phone] Thomas Curtis MD [facility] [place] [address] Fiordaliza Downing EDUCATIONAL/DEVELOPMENT ASSISTANT [facility] [place] [address] 12/26/2023 9:00 AM EDT Appointment [place] [address] Thomas Curtis MD [facility] [place] [address] 02/09/2024 8:00 AM EST Appointment [place] [phone] Thomas Curtis MD [facility] [place] [address] 03/18/2024 3:00 PM EST Office Visit Cardiology at [address] [phone] Sameer Rudolph MD [facility] [place] [address] 03/22/2024 9:00 AM EST Appointment Nuclear Medicine at [place] [phone] Thomas Curtis MD [facility] [place]OLOGY [place] [address] 08/23/2024 Hospital Encounter Main Operating Room [place] [phone] True Juarez MD [facility] [place] [address] Scheduled Procedures Name Priority Associated Diagnoses Date/Ti [...] Understanding Patient Facing Action Plan Christy Bravo, [facility] Note: The patient? s goal is to continue positive results of oral chemotherapy by maintaining improved labs (PSA) or stable scans in clinic for the upcoming year. documented as of this encounter Visit Diagnoses Not on filedocumented in this encounter Care Teams Strategic Client Executive Relationship Specialty Start Date End Date Nicolasa Valenzuela PA [address] [place] [address] PCP - General Family Medicine 12/20/21 documented as of this encounter
--- OUTSIDE RECORDS SUMMARY | 2023-10-16 03:11 | XMS_ITS | Encounter Summary ---
Author Organization [facility] Address [facility] [place] [address] Care Team Providers Care Trailer Sections Assembler Name Role Phone Nicolasa Valenzuela Primary Care Pro vider Encounter Details Date Type Department Care Team (Latest Contact Info) Description 05/23/2023 Travel Social History Tobacco Use Types Packs/Day Years Used Date Smoking Tobacco: Never Smokeless Tobacco: Never Alcohol Use Standard Drinks/Week Comments Not Currently 0 (1 standard drink = 0.6 oz pur e alcohol) [facility] Utilities Answer Date Recorded In the past 12 months has e electric, gas, oil, or water [employer] threatened to shut off services in your [...] PM EDT Office Visit Hematology/Oncology at [address] [phone] Fiordaliza Downing APRN [facility] [place] [address] 11/10/2023 9:00 AM EDT Appointment [place] [address] Thomas Curtis MD [facility] DR HEMATOLOGY [place] [address] 11/21/2023 11:00 AM EDT Infusion Hematology Oncology at [address] [phone] 12/05/2023 1:30 PM EDT Office Visit Hematology/Oncology at [address] [phone] Thomas Curtis MD [facility] HEMATOLOGY [place] [address] Fiordaliza Downing APRN [facility] [place] [address] 12/26/2023 9:00 AM EDT Appointment Nuclear Medicine at [place] [phone] Thomas Curtis MD [facility] HEMATOLOGY [place] [address] 02/09/2024 8:00 AM EST Appointment Nuclear Medicine at [place] [phone] Thomas Curtis MD [facility] HEMATOLOGY [place] [address] 03/18/2024 3:00 PM EST Office Visit Cardiology at [address] [phone] Sameer Rudolph MD [facility] [place] [address] 03/22/2024 9:00 AM EST Appointment Nuclear Medicine at [place] [phone] Thomas Curtis MD [facility] HEMATOLOGY [place] [address] 08/23/2024 Hospital Encounter [place] [phone] True Juarez MD [facility] [place] [address] Scheduled Procedures Name Priority Associated Diagnoses Date/Ti [...] Understanding Patient Facing Action Plan Christy Bravo, [facility] Note: The patient? s goal is to continue positive results of oral chemotherapy by maintaining improved labs (PSA) or stable scans in clinic for the upcoming year. documented as of this encounter Visit Diagnoses Not on filedocumented in this encounter Care Teams Trailer Sections Assembler Relationship Specialty Start Date End Date Nicolasa Valenzuela PA [address] [place] [address] PCP - General Family Medicine 12/20/21 documented as of this encounter
--- OUTSIDE RECORDS SUMMARY | 2023-10-16 03:11 | XMS_ITS | Encounter Summary ---
Author Organization [facility] Address [facility] [place] [address] Care Team Providers Care Combiner Name Role Phone Nicolasa Valenzuela Primary Care Pro vider Reason for Visit * Reason Onset Date Comments Other 05/05/2023 Stay off medicat ion Encounter Details Date Type Department Care Team (Late st Contact Info) Description 05/05/2023 Telephone Hematology/Oncology at [address] [phone] Cara Pham RN Other (Stay off medication) Social History Tobacco Use Types Packs/Day Years Used Date Smoking Tobacco: Never Smokeless Tobacco: Never Alcohol Use Standard Drinks/Week Comments Not Currently 0 (1 standard drink = 0.6 oz pur e alcohol) [facility] Utilities Answer Date Recorded In the past 12 months has [employer], gas, oil, or water [employer] threatened to shut off services in your [...] Telephone Encounter - Cara Pham RN - 05/05/2023 8:[address] Curtis pt is to remain off daralutamide until we see him with next appointment. Spoke with pt about this today and he agrees with plan. documented in this encounter Plan of Treatment Upcoming Encounters Date Type Department Care Team (Late st Contact Info) Description 10/16/2023 2:30 PM EDT Office Visit Hematology/Oncology at [address] [phone] Fiordaliza Downing APRN [facility] [place] [address] 11/10/2023 9:00 AM EDT Appointment [place] [address] Thomas Curtis MD [facility] HEMATOLOGY [place] [address] 11/21/2023 11:00 AM EDT Infusion Hematology Oncology at [address] [phone] 12/05/2023 1:30 PM EDT Office Visit Hematology/Oncology at [address] [phone] Thomas Curtis MD [facility] HEMATOLOGY [place] [address] Fiordaliza Downing APRN [facility] [place] [address] 12/26/2023 9:00 AM EDT Appointment [place] [address] Thomas Curtis MD [facility] HEMATOLOGY [place] [address] 02/09/2024 8:00 AM EST Appointment [place] [address] Thomas Curtis MD [facility] HEMATOLOGY [place] [address] 03/18/2024 3:00 PM EST Office Visit Cardiology at [address] [phone] Samere Rudolph MD [facility] [place] [address] 03/22/2024 9:00 AM EST Appointment [place] [phone] Thomas Curtis MD [facility] HEMATOLOGY [place] [address] 08/23/2024 Hospital Encounter [place] [phone] True Juarez MD [facility] UROLOGY [place], [place] [phone] Scheduled Procedures Name Priority Associated Diagnoses Date/Ti [...] on filedocumented in this encounter Care Teams Combiner Relationship Specialty Start Date End Date Nicolasa Valenzuela PA [address] [place] [address] PCP - General Family Medicine 12/20/21 documented as of this encounter
--- OUTSIDE RECORDS SUMMARY | 2023-10-16 03:11 | XMS_ITS | Encounter Summary ---
Author Organization [facility] Address [facility] [place] [address] Care Team Providers Care Government Operations Consultant Name Role Phone Nicolasa Valenzuela Primary Care Pro vider Reason for Visit * Reason Comments Injections IM Lupron * Treatment/Therapy Plan Authorization (Routine) - Authorized Specialty Diagnoses / Procedures Referred By Toño mayorga Referred To Contact Hematology and Oncology Diagnoses Prostate cancer metastatic to multiple sites Procedures TC LEUPROLIDE ACETATE 7.5MG, FOR DEPOST SUSPENSION (LUPRON DEPOT) [id number] LUPRON DEPOT Nabor Byrne MD [facility] DR [place] [address] Nabor Byrne MD [facility] DR [place] [address] Referral ID Status Reason Start Date Expiration Date V isits Requested Visits Authorized [id number] Authorized 03/06/2022 01/31/2024 99 99 Encounter Details Date Type Department Care Team (Late st Contact Info) Description 05/23/2023 10:00 AM EDT Infusion Hematology Oncology at [address] [phone] Prostate cancer metastatic to multiple sites Social History Tobacco Use Types Packs/Day Years Used Date Smoking Tobacco: Never Smokeless Tobacco: Never Alcohol Use Standard Drinks/Week Comments Not Currently 0 (1 standard drink = 0.6 oz pur e alcohol) [facility] Utilities Answer Date Recorded In the [...] as of this encounter Progress Notes * Darlene Terrell RN - 05/23/2023 10:00 AM EDT Infusion Note Diagnosis:Prostate Cancer Treatment: Lupron [...] PM EDT Office Visit Hematology/Oncology at [address] [phone] Fiordaliza Downing APRN [facility] [place] [address] 11/10/2023 9:00 AM EDT Appointment [place] [address] Thomas Curtis MD [facility] [place]EM[place]OLOG[place] [address] 11/21/2023 11:00 AM EDT Infusion Hematology Oncology at [address] [phone] 12/05/2023 1:30 PM EDT Office Visit Hematology/Oncology at [address] [phone] Thomas Curtis MD [facility] [place]OLOG[place] [address] Fiordaliza Downing APRN [facility] [place] [address] 12/26/2023 9:00 AM EDT Appointment [place] [address] Thomas Curtis MD [facility] [place]EM[place]OLOGY [place] [address] 02/09/2024 8:00 AM EST Appointment [place] [phone] Thomas Curtis MD [facility] [place]EM[place]OLOG[place] [address] 03/18/2024 3:00 PM EST Office Visit Cardiology at [address] [place] [address] Sameer Rudolph MD [facility] [place] [address] 03/22/2024 9:00 AM EST Appointment [place] [phone] Thomas Curtis MD [facility] DR [place]EM[place] [address] 08/23/2024 Hospital Encounter [place] [phone] True Juarez MD [facility] [place] [address] Scheduled Procedures Name Priority Associated Diagnoses Date/Ti [...] Date Dose Rate Site leuprolide (Lupron Depot) injection 22.5 mg 22.5 mg, Intramuscular, ONCE, 1 dose, On Mon05/23/23 at 1015, Last injection site was... leuprolide IM injection site: L Gluteal (10/31/2022 3:37 PM), Routine, This agent is restricted to outpatient use. Is this drug being given as an outpatient? Yes Given 05/23/2023 10:06 AM EDT 22.5 mg Right Gluteal documented in this encounter Care Teams Government Operations Consultant Relationship Specialty Start Date End Date Nicolasa Valenzuela PA [address] [place] [address] PCP - General Family Medicine 12/20/21 documented as of this encounter
--- OUTSIDE RECORDS SUMMARY | 2023-10-16 03:11 | XMS_ITS | Encounter Summary ---
Author Organization [facility] Address [facility] [place] [address] Care Team Providers Care Smalltalk Developer Name Role Phone Nicolasa Valenzuela Primary Care Pro vider Reason for Referral * Diagnostic Test (Routine) - Authorized Specialty Diagnoses / Procedures Referred By Toño mayorga Referred To Contact Cardiology Diagnoses ASCVD (arteriosclerotic cardiovascular disease) Cardiomyopathy, unspecified type Procedures Echocardiogram Transthoracic Sameer Rudolph MD [facility] [place] [address] Referral ID Status Reason Start Date Expiration Date Visits Requested Visits Authorized [id number] Authorized Specialty Service Requested 06/01/2023 11/28/2023 1 1 Reason for Visit * Reason Comments Coronary Artery Disease Cardiomyopathy Encounter Details Date Type Department Care Team (Latest Contact Info) Description 06/01/2023 11:00 AM EDT Office Visit Cardiology at [address] [place] [phone] Sameer Rudolph MD [facility] [place] [address] ASCVD (arteriosclerotic cardiovascular disease); Cardiomyopathy, unspecified type Social History Tobacco Use Types Packs/Day Years Used Date Smoking Tobacco: Never Smokeless Tobacco: Never Alcohol Use Standard Drinks/Week Comments Not Currently 0 (1 standard drink = 0.6 oz pur e alcohol) [facility] Utilities Answer Date Recorded In [...] a care home (including now)? No 04/14/2023 IPV Inpatient Questions [...] as of this encounter Progress Notes * Sameer Rudolph MD - 06/01/2023 11:00 AM EDT Images from the original note were not included. Subjective: Patient ID: Huber Keys is a 67 y.o. male who presents on follow-up for: Chief Complaint Patient presents with Coronary Artery Disease Cardiomyopathy HPI Last seen by me 04/2023, at which time no changes were made. He had the completion of revascularization in the interim Since then, he feels fantastic. He states he feels better than he did last year, even though he felt well then. Excellent activity is without angina nor untoward dyspnea. 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 Swelling of lower leg negative DVT studiesleft Mitral valve insufficiency moderate CKD (chronic kidney disease) Congestive heart failure Adenoma of colon Hyperlipidemia Hypothyroidism Traumatic plantar fasciitis Type 2 diabetes mellitus Prostate cancer metastatic to multiple sites 10/04/2022 Surgical Pathology DIAGNOSIS A - Lymph node, biopsy: - Metastatic carcinoma, consistent with prostatic origin (see discussion) [place] light chain disease Gout Retroperitoneal lymphadenopathy Hydronephrosis Objective: Gen: pleasant male in NAD Cor: rrr, s1/s2 of nl character and amplitude, no pathologic m/r/g. Estimated RAP not elevated. Carotids with normal upstroke without bruit. Pulm: CTAB. Normal diaphragmatic movement without use of accessory muscles Assessment and Plan: ASCVD (arteriosclerotic cardiovascular disease) No angina per history. Excellent angiographic and symptomatic response. - Anti-Thrombosis: asa 81, plavix 75 - Anti- Lipemic: lipitor 40 - Anti- Anginals: GTN PRN Cardiomyopathy No failure by history nor exam. I posit, based on symptomatic improvement, that the EF has similarly recovered to a significant extent. Will thus also hold off on providing cardioprotection, as he isknown to have softer BPs. The CDM was [...] defer for now - Devices: pending TTE RTC 3 months Sameer Rudolph MD documented in this encounter Miscellaneous Notes * Assessment & Plan Note - Sameer Rudolph MD - 06/08/2023 2:28 PM EDT Associated Problem(s): Cardiomyopathy No failure by history nor exam. I posit, based on symptomatic improvement, that the EF has similarly recovered to a significant extent. Will thus also hold off on providing cardioprotection, as he isknown to have softer BPs. The CDM was [...] defer for now - Devices: pending TTE * Assessment & Plan Note - Sameer Rudolph MD - 06/08/2023 2:24 PM EDT Associated Problem(s): ASCVD (arteriosclerotic cardiovascular disease) No angina per history. Excellent angiographic and symptomatic response. - Anti-Thrombosis: asa 81, plavix 75 - Anti- Lipemic: lipitor 40 - Anti- Anginals: GTN PRN documented in this encounter Plan of Treatment Upcoming Encounters Date Type Department Care Team (Late st Contact Info) Description 10/16/2023 2:30 PM EDT Office Visit Hematology/Oncology at [address] [phone] Fiordaliza Downing APRN [facility] [place] [address] 11/10/2023 9:00 AM EDT Appointment [place] [address] Thomas Curtis MD [facility] HEMATOLOGY [place] [address] 11/21/2023 11:00 AM EDT Infusion Hematology Oncology at [address] [phone] 12/05/2023 1:30 PM EDT Office Visit Hematology/Oncology at [address] [phone] Thomas Curtis MD [facility] HEMATOLOGY [place] [address] Fiordaliza Downing APRN [facility] [place] [address] 12/26/2023 9:00 AM EDT Appointment [place] [address] Thomas Curtis MD [facility] HEMATOLOGY [place] [address] 02/09/2024 8:00 AM EST Appointment [place] [phone] Thomas Curtis MD [facility] HEMATOLOGY [place] [address] 03/18/2024 3:00 PM EST Office Visit Cardiology at [address] [phone] Sameer Rudolph MD [facility] [place] [address] 03/22/2024 9:00 AM EST Appointment [place] [address] Thomas Curtis MD [facility] HEMATOLOGY [place] [address] 08/23/2024 Hospital Encounter [place] [address] True Juarez MD [facility] [place] [address] Scheduled Orders Name Type Priority Associated Diagnoses Orde r Schedule Echocardiogram Transthoracic Echocardiography Routine ASCVD (arteriosclerotic cardiovascular disease) Cardiomyopathy, unspecified type Expected: 06/01/2023, Expires: 12/01/2023 Scheduled Procedures Name Priority Associated Diagnoses Date/Ti [...] as of this encounter Visit Diagnoses Diagnosis ASCVD (arteriosclerotic cardiovascular disease) Unspecified cardiovascular disease Cardiomyopathy, unspecified type documented in this encounter Care Teams Smalltalk Developer Relationship Specialty Start Date End Date Nicolasa Valenzuela PA [address] [place] [address] PCP - General Family Medicine 12/20/21 documented as of this encounter
--- OUTSIDE RECORDS SUMMARY | 2023-10-16 03:11 | XMS_ITS | Encounter Summary ---
Author Organization [facility] Address [facility] [place] [address] Care Team Providers Care Owner/Operator Name Role Phone Nicolasa Valenzuela Primary Care Pro vider Encounter Details Date Type Department Care Team (Late st Contact Info) Description 05/17/2023 Ancillary Procedure [place] [address] Thomas Curtis MD [facility] [address] [place] [address] Social History Tobacco Use Types Packs/Day Years Used Date Smoking Tobacco: Never Smokeless Tobacco: Never Alcohol Use Standard Drinks/Week Comments Not Currently 0 (1 standard drink = 0.6 oz pur e alcohol) [facility] Utilities Answer Date Recorded In the past 12 months has [employer], gas, oil, or water [employer] threatened to shut off services in your [...] PM EDT Office Visit Hematology/Oncology at [address] [phone] Fiordaliza Downing APRN [facility] [place] [address] 11/10/2023 9:00 AM EDT Appointment [place] [phone] Thomas Curtis MD [facility] [place] [address] 11/21/2023 11:00 AM EDT Infusion Hematology Oncology at [address] [phone] 12/05/2023 1:30 PM EDT Office Visit Hematology/Oncology at [address] [phone] Thomas Curtis MD [facility] [place] [address] Fiordaliza Downing APRN [facility] [place] [address] 12/26/2023 9:00 AM EDT Appointment [place] [phone] Thomas Curtis MD [facility] [place] [address] 02/09/2024 8:00 AM EST Appointment [place] [phone] Thomas Curtis MD [facility] [place] [address] 03/18/2024 3:00 PM EST Office Visit Cardiology at [address] [place] [phone] Sameer Rudolph MD [facility] [place] [address] 03/22/2024 9:00 AM EST Appointment [place] [phone] Thomas Curtis MD [facility] [place] [address] 08/23/2024 Hospital Encounter Main Operating Room [facility] [place] [address] True Juarez MD [facility] [place] [address] Scheduled Procedures Name Priority Associated Diagnoses Date/Ti [...] Patient Facing Action Plan Christy Bravo, [facility] Note: The patient? s goal is to continue positive results of oral chemotherapy by maintaining improved labs (PSA) or stable scans in clinic for the upcoming year. documented as of this encounter Procedures Procedure Name Priority Date/Time Associated Diagnosis Comments FILM LIBRARY STORAGE ONLY NUCLEAR MEDICINE Routine 05/17/2023 12:00 AM EDT documented in this encounter Results * Film Library- Storage Only nuclear medicine (05/17/2023 12:00 AM EDT) Narrative [facility] [place] 05/18/2023 9:56 AM EDT This exam is auto-finalizing. It's purpose is for storage only. Thomas Curtis MD G FILM LIBRARY ORD ERABLES [place], [place] documented in this encounter Visit Diagnoses Not on filedocumented in this encounter Care Teams Owner/Operator Relationship Specialty Start Date End Date Nicolasa Valenzuela PA [address] [place] [address] PCP - General Family Medicine 12/20/21 documented as of this encounter
--- OUTSIDE RECORDS SUMMARY | 2023-10-16 03:11 | XMS_ITS | Encounter Summary ---
Author Organization [facility] [place] [address] Care Team Providers Care Dairy Nutritionist Name Role Phone Nicolasa Valenzuela Primary Care Pro vider Reason for Referral * Consultation (Routine) - Closed Specialty Diagnoses / Procedures Referred By Toño mayorga Referred To Contact Cardiology Diagnoses S/P coronary artery stent placement Citlalli Esposito MD [facility] [place] [address] Cardiac Rehab, [facility] [address] [place] [address] Referral ID Status Reason Start Date Expiration Date V isits Requested Visits Authorized [id number] Closed Consult, Test & Treat 05/04/2023 10/31/2023 36 36 Encounter Details Date Type Department Care Team (Late st Contact Info) Description 05/04/2023 Orders Only Cardiology at [address] [phone] Citlalli Esposito MD [facility] [place] [address] S/P coronary artery stent placement Social History Tobacco Use Types Packs/Day Years Used Date Smoking Tobacco: Never Smokeless Tobacco: Never Alcohol Use Standard Drinks/Week Comments Not Currently 0 (1 standard drink = 0.6 oz pur e alcohol) [facility] Utilities Answer Date Recorded In the [...] PM EDT Office Visit Hematology/Oncology at [address] [phone] Fiordaliza Downing APRN [facility] [place] [address] 11/10/2023 9:00 AM EDT Appointment [place] [phone] Thomas Curtis MD [facility] [place]OLOG[place] [address] 11/21/2023 11:00 AM EDT Infusion Hematology Oncology at [address] [phone] 12/05/2023 1:30 PM EDT Office Visit Hematology/Oncology at [address] [phone] Thomas Curtis MD [facility] HEMATOLOGY [place] [address] Fiordaliza Downing APRN [facility] [place] [address] 12/26/2023 9:00 AM EDT Appointment [place] [phone] Thomas Curtis MD [facility] [place]ATOLOG[place] [address] 02/09/2024 8:00 AM EST Appointment [place] [phone] Thomas Curtis MD [facility] H[place]ATOLOGY [place] [address] 03/18/2024 3:00 PM EST Office Visit Cardiology at [address] [place] [address] Sameer Rudolph MD [facility] [place] [address] 03/22/2024 9:00 AM EST Appointment [place] [address] Thomas Curtis MD [facility] HEMATOLOGY [place] [address] 08/23/2024 Hospital Encounter [place] [address] True Juarez MD [facility] [place] [address] Scheduled Procedures Name Priority Associated Diagnoses Date/Ti me CYSTO, STENT PLACEMENT (WRVU 2.82) Hydronephrosis with ureteral stricture, not elsewhere classified CYSTO, REMOVAL OF STENT, FOR EIGN BODY OR CALCULUS, SIMPLE (WRVU 2.81) Hydronephrosis with ureteral stricture, not elsewhere classified Scheduled Referrals Name Type Priority Associated Diagnoses Orde r Schedule Referral to Cardiac Rehab Outpatient Referral Routine S/P coronary artery stent placement Ordered: 05/04/2023 documented as of this encounter Goals Goal Patient Goal Type Associated Problems Recent Progress Patient-Stated? Author Home Medication Compliance and Understanding Patient Facing Action Plan Christy Bravo [facility] Note: The patient? s goal is to continue positive results of oral chemotherapy by maintaining improved labs (PSA) or stable scans in clinic for the upcoming year. documented as of this encounter Visit Diagnoses Diagnosis S/P coronary artery stent placement Postsurgical percutaneous transluminal coronary angioplasty status documented in this encounter Care Teams Dairy Nutritionist Relationship Specialty Start Date End Date Nicolasa Valenzuela PA [address] [place] [address] PCP - General Family Medicine 12/20/21 documented as of this encounter
--- OUTSIDE RECORDS SUMMARY | 2023-10-16 03:12 | XMS_ITS | Encounter Summary ---
Author Organization [facility] Address [facility] [place] [address] Care Team Providers Care Computer Animator Name Role Phone Nicolasa Valenzuela Primary Care Pro vider Encounter Details Date Type Department Care Team (Late st Contact Info) Description 04/18/2023 [place] [address] Puma Hernandez MD [facility] [address] Coronary artery disease, unspecified vessel or lesion type, unspecified whether angina present, unspecified whether [place] or transplanted heart Social History Tobacco Use Types Packs/Day Years Used Date Smoking Tobacco: Never Smokeless Tobacco: Never Alcohol Use Standard Drinks/Week Comments Not Currently 0 (1 standard drink = 0.6 oz pur e alcohol) [facility] Utilities Answer Date Recorded In the past 12 months has [email or web address], gas, oil, or water [employer] threatened to shut off services in your [...] 2:30 PM EDT Office Visit Hematology/Oncology at [address] [phone] Fiordaliza Downing APRN [facility] [place] [address] 11/10/2023 9:00 AM EDT Appointment [place] [address] Thomas Curtis MD [facility] [place] [address] 11/21/2023 11:00 AM EDT Infusion Hematology Oncology at [address] [phone] 12/05/2023 1:30 PM EDT Office Visit Hematology/Oncology at [address] [phone] Thomas Curtis MD [facility] [place] [address] Fiordaliza Downing APRN [facility] [place] [address] 12/26/2023 9:00 AM EDT Appointment [place] [phone] Thomas Curtis MD [facility] [place] [address] 02/09/2024 8:00 AM EST Appointment [place] [phone] Thomas Curtis MD [facility] [place] [address] 03/18/2024 3:00 PM EST Office Visit Cardiology at [address] [place] [address] Sameer Rudolph MD [facility] [place] [address] 03/22/2024 9:00 AM EST Appointment [place] [phone] Thomas Curtis MD [facility] [place] [address] 08/23/2024 Hospital Encounter [place] [phone] True Juarez MD [facility] [place] [address] Scheduled Procedures Name Priority Associated Diagnoses Date/Ti [...] as of this encounter Visit Diagnoses Diagnosis Coronary artery disease, unspecified vessel or lesion type, unspecified whether angina present, unspecified whether [place] or transplanted heart documented in this encounter Care Teams Computer Animator Relationship Specialty Start Date End Date Nicolasa Valenzuela PA [address] [place] [address] PCP - General Family Medicine 12/20/21 documented as of this encounter
--- OUTSIDE RECORDS SUMMARY | 2023-10-16 03:12 | XMS_ITS | Encounter Summary ---
Author Organization [facility] [place] [address] Care Team Providers Care Licensed Physical Therapy Assistant Name Role Phone Nicolasa Valenzuela Primary Care Pro vider Reason for Visit * Auth/Cert (Routine) Specialty Diagnoses / Procedures Referred By Toño mayorga Referred To Contact Diagnoses NSTEMI (non-ST elevated myocardial infarction) Diffuse ischemia Tha Winters MD [facility] [place] [address] [place] [address] [facility] Referral ID Status Reason Start Date Expiration Date Visits Re quested Visits Authorized [id number] 1 1 Encounter Details Date Type Department Care Team (Late st Contact Info) Description 04/13/2023 5:47 PM EST - 04/19/2023 2:15 PM EST Hospital Encounter Heart and Vascular Unit Level 3 [place] [address] Tha Winters MD [facility] [place] [address] Sidney Malodnado MD [facility] [place] [address] NSTEMI (non-ST elevated myocardial infarction) Discharge Disposition: Home with VNA Social History Tobacco Use Types Packs/Day Years [...] Sign Reading Time Taken Comments Blood Pressure 119/63 04/19/2023 11:11 AM EST Pulse 69 04/19/2023 11:11 AM EST Temperature 36.6 ??C (97.9 ??F) 04/19/2023 11:[address] Respiratory Rate 14 04/19/2023 11:11 AM EST Oxygen Saturation 100% 04/19/2023 11:11 AM EST Inhaled Oxygen Concentration - - Weight 83.7 kg (184 lb 9.6 oz) 04/19/2023 5:09 A M EST Height 179.1 cm (5' 10.5) 04/13/2023 5:56 PM ES T Body Mass Index 26.11 04/13/2023 5:56 PM EST documented in this encounter Discharge Summaries * Sidney Maldonado MD - 04/19/2023 2:15 PM EST Discharge Summary Patient Name: Huber Mosher Patient Age: 67 y.o. Language: Azerbaijani Race: White Ethnicity: Not nor Admit date: 04/13/2023 Discharge date and time: 04/19/2023 Attending Physician: Sidney Maldonado MD Discharge Physician: Severo Calderon MD (Resident) ID: Huber Mosher is a 67 y.o. male w/ PMH CAD (per CT scan imaging), cardiomyopathy (stress vs ischemic), high risk prostate cancer with multiple mets to bones/lymph nodes,CKD, IDDM2, hypothyroidism, and bilateral hydronephrosis s/p stents who presents as a transfer from [place] for NSTEMI Follow-up Recommendations for Providers: Primary oncologist to review darolutamide hold d/t cardiotoxicity. Will need staged PCI for distal LAD disease. Scheduled 05/02/23 at noon Has not started beta blockers or MARY/ARBs due to hypotension, can consider starting if improvement of blood pressure. Pending Studies and Lab Data: none The patient will need the following 7 tests completed on: 04/13/2023 1. CBC (with Diff) 5. CBC (with Diff) 2. CBC (with Diff) 6. CBC (with Diff) 3. Cardiac Catheterization 7. CBC (with Diff) 4. CBC (with Diff) Diagnosis: Authorizing Provider: Tha Winters MD, Citlalli Charles MD Discharge Diagnoses (Hospital Problems) and Secondary Diagnoses (Chronic Problems): Active Hospital Problems Diagnosis NSTEMI (non-ST elevated myocardial infarction) Resolved Hospital Problems No resolved problems to display. Active Non-Hospital Problems Diagnosis High risk medication use Foot pain Hypercholesterolemia Hypothyroidism Onychomycosis Traumatic plantar fasciitis Type 2 diabetes mellitus Prostate cancer metastatic to multiple sites 10/04/2022 Surgical Pathology DIAGNOSIS A - Lymph node, biopsy: - Metastatic carcinoma, consistent with prostatic origin (see discussion) [place] light chain deposition disease Gout Cardiomyopathy 09/2022: EF 27%, apical AK Retroperitoneal lymphadenopathy Hydronephrosis Pleural effusion, bilateral Bilateral lower extremity edema History of Presentation (per 04/13/2023 Admission H&P): Patient states he was in his normal state of health until 10 PM last night (Monday), when he developed sudden onset 8/10 left sided chest pain with radiation into his shoulder. He had associated shortness of breath but denied any diaphoresis, lightheadedness, dizziness, nausea, or syncope. He presented to [place] where initial EKG showed borderline LITO in aVR and diffuse ST depressions. Repeat EKG demonstrated improvement of ST changes. Troponin 20-->129-->1845-->5255. He received nitroglycerin which dropped his SBP to ~80s. He subsequently received fentanyl 150 with complete resolution of his pain. CT PE without evidence of PE but showed known blastic bone mets. CT head without evidence of mets. Patient was aspirin loaded and started on a heparin drip. Transferred to [facility] for further care. On arrival, patient is HDS. He denies recurrence of chest pain since receiving fentanyl. He additionally denies lightheadedness, headaches, dizziness, shortness of breath, orthopnea, PND, palpitations, abdominal pain, constipation, or diarrhea. He endorses changes in his exercise tolerance, statingthat over the past several months, he sometimes gets chest pain with exertion that resolves with rest. He also endorses significant unilateral right LE swelling. He previously took lasix without improvement so this was recently discontinued. Of note, patient was diagnosed with high risk prostate cancer last September and now s/p three cycles ofdocetaxel (last cycle ~3 weeks ago); continuing on darolutamide 300 mg BID. During his hospitalization last September, he was found to have new LV systolic dysfunction (EF 27%). A recent echo on 03/29 at [place] showed an EF 46% with regional WMA. Hospital Course: Huber Mosher was admitted to the Cardiology Service on 04/13/2023. The following issues were addressed and he was discharged on 04/19/2023. #NSTEMI #CAD Mr. Mosher was admitted to the floor for LHC and management of NSTEMI. He received a CT brain that was negative for brain mets which would have been a contraindication for anticoagulation. He was heparin loaded and started on a drip. He was loaded with aspirin 324 mg and followed by aspirin 81 mgqd. Plavix was held d/t high risk of multivessel disease. He was started on atorvastatin 40 mg. D/thypotension, could not initiate beta chel or MARY/ARB for GDMT. Diuresis with lasix was initiateduntil reach euvolemic. Not requiring scheduled PO diuretic Formal ECHO showed LVEF 25% with moderate functional mitral regurge. LHC showed multivessel coronary artery disease in LAD, LCX (LEGAL EXECUTIVE ASSISTANT), and RCA. CT surgery was consultedto evaluate if Mr. Mosher is a candidate for CABG vs PCI. After evaluation, CT surgery CABG benefit was medically limited. Given his high risk and difficult social situation (lives alone with out cecilio), PCI was recommended. He was loaded with plavix and given 1 unit of PRBC to optimize for procedure. PCI using R groin access site, yielded successful mini-crush of the LM/LAD/LCX bifurcation with stents placed in LCX and LAD. He is recommended to schedule staged revascularization of the distal LAD lesions. He is started on plavix 75 mg qd and continued on aspirin 81 mg qd for anticoagulation. #Metastatic Prostate Cancer Heme onc was consulted for Mr. Mosher' metastatic prostate cancer. He was on ADT, darolutamide, and docetaxel. Per heme onc recs, darolutamide was held d/t increase risk of ischemic heart disease until he could be reevaluated by primary oncologist. Heme onc noted 62.7% 4-year overall survival forMveronica Mosher and would therefore benefit from CABG. #T2DM - Dose reduced lantus. Can resume home regimen on home diet. Procedures: Operations: Procedure(s) with comments: CARDIAC CATHETERIZATION - High Risk PCI Other Major Procedures: Important Studies and Lab Data: DISCHARGE BASIC LABS: Recent Labs 04/19/2339904/18/230 04/17/23 031 WBC 5.5 4.2 4.0 HGB 9.1* 9.0* 8.0* HCT 27.3* 27.1* 23.9* PLATELET 305 321 299 Recent Labs 04/19/2339904/18/2332904/17/23 0315 NA 136 137 138 K 4.5 4.5 4.5 CL 106 105 104 CO2 19* 20* 22 BUN 26* 30* 33* CREATININE 1.52* 1.58* 1.75* CALCIUM 8.8 9.4 8.8 MAGNESIUM 0.79 0.83 0.85 PHOS 3.9 3.6 4.2 Recent Labs 04/13/23 210 BILITOT 0.3 BILIDIR 0.1 AST 27 ALT 10 ALKPHOS 53 No results for input(s): INR, PTT in the last 168 hours. OTHER HASTINGS LABS: Recent Labs 04/13/232106 HA1C 8.0* Recent Labs 04/13/23 210 TSH 2.97 Recent Labs 04/14/23 0040 HDL 34 LDLCHOL 38 CHOLHDL 3.0 TRIG 144 CHLPL 101 Echocardiography: Left ventricle is mildly dilated with severely reduced systolic function. There are regional wall motion abnormaltiies as ascribed. No LV thrombus. Right ventricle is normal in size and systolic function. PASP of 55 mmHg plus estimated RA pressure. IVC is non-dilated and non-plethoric. Moderate atrioventricular valve regurgitation. Cardiac Catheterization: Femoral Angio: Insertion site in the mid common femoral artery Coronary Angiography: Anatomically normal right dominant circulation LMCA: 80% distal LM disease LAD: 80% ostial LAD, 80% mid LAD, 80% distal LAD, 70% ostial D1 LCx: Ostial LEGAL EXECUTIVE ASSISTANT RCA: Not injected - Successful mini-crush of the LM/LAD/LCX bifurcation with a 3.0 x 34 mm Hebert Manning in the LCX and 3.5 x 26 mm Hebert Manning ARJUN to the LAD. - Normal cardiac index (3.2) and low filling pressures. - Recommend staged revascularization of the distal LAD lesions. Discussed with patient and can be scheduled as soon as next week as an outpatient which I have requested with scheduling. Discharge Conditions/Prognosis: Upon discharge the pt is hemodynamically stable, afebrile, fully ambulatory without requiring supplemental oxygen, holding down food/drink, and pain free controlled with stable oral regimen. Vital Signs: Last value Range last 24 hrs Temperature Temp: 36.6 ??C (97.9 ??F) Temp: [36.2 ??C (97.2 ??F)-37 ??C (98.6 ??F)] Heart Rate Heart Rate: 69 Heart Rate: [62-82] Blood Pressure BP: 119/63 BP: (92-120)/(43-89) Respiratory Rate Resp: 14 Resp: [3-20] SpO2 SpO2: 100 % SpO2: [100 %] Exam: Gen: in bed in NAD; alert, oriented, conversant HEENT: anicteric, EOMI intact, CV: RRR, no murmurs/gallops; Resp: CTAB, no crackles/wheezes/ronchi, normal work of breathing Abd: soft, non-tender, non-distended, no rebound or guarding Ext: 2+ distal pulses, right lower extremity edema +2 pitting. No left lower extremity edema. Neuro: no focal deficits noted, moves all extremities spontaneously Skin: no rashes, lesions, or ulcerations noted Discharge to: home without services or rehab Discharge Medications: Your Medications New Medications Dose Details aspirin 81 mg chewable tablet Take 81 mg by mouth daily. Start taking on: April 20, 2023 81 mg Quantity: 30 tablet Refills: 3 clopidogreL 75 mg tablet Commonly known as: Plavix Take 1 tablet by mouth daily. Start taking on: April 20, 2023 75 mg Quantity: 90 tablet Refills: 3 nitroGLYcerin 0.4 mg sublingual tablet Commonly known as: Nitrostat Place 1 tablet under the tongue every 5 minutes as needed for Chest pain. 0.4 mg Quantity: 90 tablet Refills: 12 Continued medications, unchanged Dose Details acetaminophen 325 mg tablet Commonly known as: Tylenol Take 650 mg by mouth 3 times daily. 650 mg Refills: 0 atorvastatin 40 mg tablet Commonly known as: Lipitor Take 1 tablet by mouth daily. 40 mg Quantity: 30 tablet Refills: 3 cholecalciferol 1,000 unit tablet Commonly known as: Vitamin D3 Take 1 tablet by mouth daily. 1,000 Units Quantity: 90 tablet Refills: 3 HYDROcodone-acetaminophen 5-325 mg tablet Commonly known as: Langley Take 1 tablet by mouth every 6 hours as needed for Pain. 1 tablet Refills: 0 Lantus Solostar U-100 Insulin 100 unit/mL (3 mL) pen Inject 8 Units subcutaneously daily. Generic drug: insulin glargine 8 Units Quantity: 10 mL Refills: 12 levothyroxine 150 mcg tablet Commonly known as: Synthroid Take 150 mcg by mouth daily. 150 mcg Refills: 0 tamsulosin 0.4 mg capsule Commonly known as: Flomax Take 0.4 mg by mouth daily. 0.4 mg Refills: 0 STOPPED Medications darolutamide 300 mg tablet Commonly known as: Nubeqa furosemide 20 mg tablet Commonly known as: Lasix nitrofurantoin 100 mg capsule Commonly known as: Macrobid prochlorperazine 10 mg tablet Commonly known as: Compazine Updated Allergies/ADRs: Allergies Allergen Reactions Amoxicillin Rash Penicillin Other (See Comments) Other reaction(s): Unknown Instructions Given to Patient at Discharge: Patient Instructions Instructions on Discharge to Home Why you were hospitalized - You came to the hospital with chest pain. Your findings was consistent for a heart attack called (NSTEMI). You went to the laborer car barn which showed multiple arteries of your heart was clogged. After discussion with various teams, the decision was made to go back to cath labto open the clogged arteries. You will need a repeat cath to open up one of the distal arteries. This is scheduled for 05/02/23 at noon, arrive an hour early. You was started on the medication listedbelow. Important to take medication as prescribed. Call your doctor or seek medical attention if you develop the following - chest pain, shortness of breath, feeling dizzy upon standing, passing out, diarrhea, constipation lasting longer than 2 days,fevers (temperature over 100.3), chills, abdominal pain, vomiting, difficulty or discomfort when urinating, bloody or black bowel movements, or any other acute or concerning symptom. Activity level - As tolerated Diet - Heart healthy diet Driving - As before hospitalization Shower/Bath - No submerging cath site in bath, hot tub for a week Wound Care - None Home Oxygen therapy - not indicated Your Discharge Medication List Your Medications New Medications Dose Details aspirin 81 mg chewable tablet Take 81 mg by mouth daily. Start taking on: April 20, 2023 81 mg Quantity: 30 tablet Refills: 3 clopidogreL 75 mg tablet Commonly known as: Plavix Take 1 tablet by mouth daily. Start taking on: April 20, 2023 75 mg Quantity: 90 tablet Refills: 3 nitroGLYcerin 0.4 mg sublingual tablet Commonly known as: Nitrostat Place 1 tablet under the tongue every 5 minutes as needed for Chest pain. 0.4 mg Quantity: 90 tablet Refills: 12 Continued medications, unchanged Dose Details acetaminophen 325 mg tablet Commonly known as: Tylenol Take 650 mg by mouth 3 times daily. 650 mg Refills: 0 atorvastatin 40 mg tablet Commonly known as: Lipitor Take 1 tablet by mouth daily. 40 mg Quantity: 30 tablet Refills: 3 cholecalciferol 1,000 unit tablet Commonly known as: Vitamin D3 Take 1 tablet by mouth daily. 1,000 Units Quantity: 90 tablet Refills: 3 HYDROcodone-acetaminophen 5-325 mg tablet Commonly known as: Langley Take 1 tablet by mouth every 6 hours as needed for Pain. 1 tablet Refills: 0 Lantus Solostar U-100 Insulin 100 unit/mL (3 mL) pen Inject 8 Units subcutaneously daily. Generic drug: insulin glargine 8 Units Quantity: 10 mL Refills: 12 levothyroxine 150 mcg tablet Commonly known as: Synthroid Take 150 mcg by mouth daily. 150 mcg Refills: 0 tamsulosin 0.4 mg capsule Commonly known as: Flomax Take 0.4 mg by mouth daily. 0.4 mg Refills: 0 STOPPED Medications darolutamide 300 mg tablet Commonly known as: Nubeqa furosemide 20 mg tablet Commonly known as: Lasix nitrofurantoin 100 mg capsule Commonly known as: Macrobid prochlorperazine 10 mg tablet Commonly known as: Compazine Follow-up: 04/27/2023 at 10 AM PCP JESSE Nesbitt [facility] Cardiology in Dr. Klaudia Aguilar [phone]. We left voicemail with office requesting a 4-6 week office follow-up visit. Please call them if you do not hear from them in next week. Future Appointments Date Time Provider Department Center 05/09/2023 9:30 AM Thomas Curtis MD [facility] Your follow-up laborer car barn intervention will be 05/02/23 at noon, please arrive at least 1 hour early Your Inpatient Medical Team at [facility] Name(s) of your inpatient provider(s): Sidney Maldonado MD Your Primary Care Provider: JESSE Nesbitt [phone] For questions regarding this document or issues relating to this hospitalization on the Medical Service, please contact your inpatient physician through the [facility] Development Expert . Issues afterhours and on weekends will be handled by the Hospitalist staff on-call. General Instructions None Future Appointments and Orders Future Appointments and Orders Future Appointments Provider Department Dept Phone 05/09/2023 9:30 AM Fiordaliza Downing APRN; Thomas Curtis MD Hematology/Oncology at [facility] Arrive at: [facility] door at end of hallway [phone] Provider Contact Information: JESSE Nesbitt [address] [place] / [place] [address] Discharge References/Attachments: Discharge References/Attachments Healthy Diet: Heart (Azerbaijani) CAD (Coronary Artery Disease): General Info (Azerbaijani) Cardiology Staff Addendum: I was the attending physician of record at the time of this patient's discharge. I agree with the information documented above. I spent >30 minutes (Day of Discharge Code 39514) involved in the final examination of the patient, discussion of the hospital stay, instructions for continuing care to all relevant caregivers, and preparation of discharge records, prescriptions and referral forms. Sidney Maldonado MD [facility] Staff [facility] documented in this encounter Discharge Instructions * Patient Instructions* Severo Calderon MD - 04/19/2023 9:13 AM EST Instructions on Discharge to Home Why you were hospitalized - You came to the hospital with chest pain. Your findings was consistent for a heart attack called (NSTEMI). You went to the laborer car barn which showed multiple arteries of your heart was clogged. After discussion with various teams, the decision was made to go back to cath labto open the clogged arteries. You will need a repeat cath to open up one of the distal arteries. This is scheduled for 05/02/23 at noon, arrive an hour early. You also have a follow-up appointment with Dr. Rudolph 1 week after discharge at 9:00am on 04/25/23. You were started on the medication listedbelow. Important to take medication as prescribed. Call your doctor or seek medical attention if you develop the following - chest pain, shortness of breath, feeling dizzy upon standing, passing out, diarrhea, constipation lasting longer than 2 days,fevers (temperature over 100.3), chills, abdominal pain, vomiting, difficulty or discomfort when urinating, bloody or black bowel movements, or any other acute or concerning symptom. Activity level - As tolerated Diet - Heart healthy diet Driving - As before hospitalization Shower/Bath - No submerging cath site in bath, hot tub for a week Wound Care - None Home Oxygen therapy - not indicated Your Discharge Medication List Your Medications New Medications Dose Details aspirin 81 mg chewable tablet Take 81 mg by mouth daily. Start taking on: April 20, 2023 81 mg Quantity: 30 tablet Refills: 3 clopidogreL 75 mg tablet Commonly known as: Plavix Take 1 tablet by mouth daily. Start taking on: April 20, 2023 75 mg Quantity: 90 tablet Refills: 3 nitroGLYcerin 0.4 mg sublingual tablet Commonly known as: Nitrostat Place 1 tablet under the tongue every 5 minutes as needed for Chest pain. 0.4 mg Quantity: 90 tablet Refills: 12 Continued medications, unchanged Dose Details acetaminophen 325 mg tablet Commonly known as: Tylenol Take 650 mg by mouth 3 times daily. 650 mg Refills: 0 atorvastatin 40 mg tablet Commonly known as: Lipitor Take 1 tablet by mouth daily. 40 mg Quantity: 30 tablet Refills: 3 cholecalciferol 1,000 unit tablet Commonly known as: Vitamin D3 Take 1 tablet by mouth daily. 1,000 Units Quantity: 90 tablet Refills: 3 HYDROcodone-acetaminophen 5-325 mg tablet Commonly known as: Langley Take 1 tablet by mouth every 6 hours as needed for Pain. 1 tablet Refills: 0 Lantus Solostar U-100 Insulin 100 unit/mL (3 mL) pen Inject 8 Units subcutaneously daily. Generic drug: insulin glargine 8 Units Quantity: 10 mL Refills: 12 levothyroxine 150 mcg tablet Commonly known as: Synthroid Take 150 mcg by mouth daily. 150 mcg Refills: 0 tamsulosin 0.4 mg capsule Commonly known as: Flomax Take 0.4 mg by mouth daily. 0.4 mg Refills: 0 STOPPED Medications darolutamide 300 mg tablet Commonly known as: Nubeqa furosemide 20 mg tablet Commonly known as: Lasix nitrofurantoin 100 mg capsule Commonly known as: Macrobid prochlorperazine 10 mg tablet Commonly known as: Compazine Follow-up: 04/27/2023 at 10 AM PCP JESSE Nesbitt [facility] [place] [phone]. We left voicemail with office requesting a 4-6 week office follow-up visit. Please call them if you do not hear from them in next week. Future Appointments Date Time Provider Department Center 04/25/2023 9:00 AM Sameer Rudolph MD [facility] 05/09/2023 9:30 AM Thomas Curtis MD [facility] Your follow-up laborer car barn intervention will be 05/02/23 at noon, please arrive at least 1 hour early Your Inpatient Medical Team at [facility] Name(s) of your inpatient provider(s): Sidney Maldonado MD Your Primary Care Provider: JESSE Nesbitt [phone] For questions regarding this document or issues relating to this hospitalization on the Medical Service, please contact your inpatient physician through the [facility] Development Expert . Issues afterhours and on weekends will be handled by the Hospitalist staff on-call. * Attachments The following attachments cannot be sent through Care Everywhere. * Healthy Diet: Heart (Azerbaijani) * CAD (Coronary Artery Disease): General Info (Azerbaijani) documented in this encounter Medications at Time [...] 150 mcg by mouth daily. HYDROcodone-acetamino phen (Langley) 5-325 mg tablet Take 1 tablet by [...] as of this encounter Progress Notes * Severo Calderon MD - 04/18/2023 6:10 PM EST Post Cardiac Catheterization Check Note Subjective: No chest pain, dyspnea, abdominal/groin/back pain. No rash. No weakness/numbness/tingling. No bleeding/swelling from access site. Objective: Blood pressure 104/63, pulse 70, temperature 36.2 ??C (97.2 ??F), temperature source Oral, resp. rate 16, height 179.1 cm (5' 10.5), weight 83 kg (183 lb), SpO2 100%. General: Sitting in sukumar in NAD. Site: access site without hematoma or ecchymoses. dressing c/d/i. No bruit. Nontender. Extrem: no livedo reticularis, warm/symmetric, sensation intact/symmetric, symmetric 1+ PT/DP radial pulses confirmed with doppler at bedside. A/P: s/p cath with benign-appearing right femoral access site and no issues Severo Calderon MD * Lesvia Torres RN - 04/18/2023 2:53 PM EST Pt back on floor @1425. No pain. laborer cook house site is C/D/I. Bed rest due to d/c at 1630. Patient is able to make needs know. Call molina within reach. * Sidney Maldonado MD - 04/18/2023 9:12 AM EST Images from the original note were not included. Inpatient Cardiology Progress Note Patient info: Name: Huber Mosher : 1955 PCP: JESSE Nesbitt PCP phone number: [phone] Date of Admission: 04/13/2023 ( Hospital Day 5 days ) Attending:Sidney Maldonado MD ID: Huber Mosher is a 67 y.o. male w/ PMH of CAD (per CT scan imaging), HFrEF, cardiomyopathy(stress vs ischemic), high risk prostate cancer with multiple mets to bones/lymph nodes,CKD, IDDM2,hypothyroidism who was transferred from [place] for NSTEMI. 24 Hour Events/Subjective: - NPO at midnight for PCI today - transfused 1 unit whole blood - plavix loaded 600 mg Mr. Mosher continues to have episodes of SOB when standing or sitting up. The episodes are quick,passing within 10 seconds. Unchanged from previous. He denies chest pain, palpitation, lightheadness, changes in vision, n/v. Objective: Vitals Last value Range last 24 hrs Temperature Temp: 36.5 ??C (97.7 ??F) Temp: [36.4 ??C (97.5 ??F)-36.7 ??C (98.1 ??F)] Heart Rate Heart Rate: 71 Heart Rate: [65-78] Blood Pressure BP: 114/68 BP: (86-114)/(47-68) Art Line BP BP (Arterial Line): -- MAP (NBP): [62 mmHg-79 mmHg] Respiratory Rate Resp: 12 Resp: [12-17] SpO2 SpO2: 100 % SpO2: [99 %-100 %] Oxygen Delivery Oxygen Therapy O2 Device: None (Room air) Reason for Oxygen: Patient currently on room air Intake/Output Summary (Last 24 hours) at 04/18/2023 0924 Last data filed at 04/18/2023 0800 Gross per 24 hour Intake 743.67 ml Output 1475 ml Net -731.33 ml Patient Vitals for the past 168 hrs: Weight 04/18/23 0415 83 kg (183 lb) 04/17/23 0459 83.2 kg (183 lb 6.4 oz) 04/16/23 0535 82.9 kg (182 lb 12.8 oz) 04/15/23 0311 83 kg (183 lb) 04/14/23 0652 85.6 kg (188 lb 11.4 oz) 04/13/23 1756 86 kg (189 lb 9.6 oz) Dry weight: 83 kg Physical Exam: Gen: in bed in NAD; alert, oriented, conversant HEENT: anicteric, EOMI intact, CV: RRR, no murmurs/gallops; Resp: CTAB, no crackles/wheezes/ronchi, normal work of breathing Abd: soft, non-tender, non-distended, no rebound or guarding Ext: 2+ distal pulses, right lower extremity edema +2 pitting. No left lower extremity edema. Neuro: no focal deficits noted, moves all extremities spontaneously Skin: no rashes, lesions, or ulcerations noted Lines/Drains/Airways: Implanted single lumen port Peripheral IV L. Basilic vein Labs: Recent Labs 04/18/23 0330 04/17/23 0315 04/16/23 0425 04/15/23 0511 04/14/23 0040 WBC 4.2 4.0 4.3 4.3 5.0 HGB 9.0* 8.0* 8.1* 8.3* 8.6* HCT 27.1* 23.9* 24.5* 25.5* 25.3* PLATELET 321 299 286 305 314 MCV 93.1 94.1* 93.5* 97.0* 94.4* Recent Labs 04/18/23 0330 04/17/23 0315 04/16/23 0425 04/15/23 0511 04/14/23 0040 NA 137 138 135 137 134* CL 105 104 102 104 103 CO2 20* 22 22 23 21* K 4.5 4.5 4.2 4.2 4.3 MAGNESIUM 0.83 0.85 0.81 0.88 0.89 PHOS 3.6 4.2 4.6* 4.7* 3.8 CALCIUM 9.4 8.8 9.0 8.9 8.6 BUN 30* 33* 38* 38* 41* CREATININE 1.58* 1.75* 1.79* 1.76* 1.71* LFTs Recent Labs 04/13/23 2107 PROT 5.8* ALBUMIN 3.4 AST 27 ALT 10 ALKPHOS 53 BILITOT 0.3 BILIDIR 0.1 Cardiac Enzymes Recent Labs 04/13/23 2107 PROBNP 6,510* Endocrine Recent Labs 04/13/23 2107 09/30/22 0617 TSH 2.97 3.16 Recent Labs 04/18/23 0730 04/18/23 0339 04/17/23 2332 04/17/23 1931 04/17/23 1610 04/17/23 1047 04/17/23 0740 04/17/23 0325 04/17/23 0006 04/16/23 2015 04/16/23 1526 04/16/23 1121 POCGLU 165 157 157 155 235* 128 170 149 147 216* 226* 156 Imaging: [facility] (04/14/23): Ao 94/40 mean 66 LV 99 EDP 25 Conclusions: * Three vessel coronary artery disease (LAD, LCX and RCA) * Elevated left ventricular end diastolic pressure * Severe calcified distal LM and ostial LAD stenosis * LEGAL EXECUTIVE ASSISTANT of the ostial LCx, this is a smaller vessel * Recommend heart team consult to consider PCI vs CABG. He may not be a good candidate for bypass given co-morbidities and targets. In this case would plan for staged PCI of LM-LAD with considerationof LEGAL EXECUTIVE ASSISTANT PCI of LCx. He had CKD and Cr limits further intervention today so we will stop and weight all the options. ECHO (04/14/23): Left ventricle is mildly dilated with severely reduced systolic function. There are regional wall motion abnormaltiies as ascribed. No LV thrombus. Right ventricle is normal in size and systolic function. PASP of 55 mmHg plus estimated RA pressure. IVC is non-dilated and non-plethoric. Moderate atri oventricular valve regurgitation. Compared to prior study dated 03/2023, there has been a decrement in EF (previously 46%), with more anterior distribution of regional wall motion abnormality. EF 29% Medications Scheduled: [MAY Hold] clopidogreL 75 mg Oral Daily [MAY Hold] lidocaine 1 patch Transdermal Daily [May] atorvastatin 40 mg Oral Daily [MAY Hold] cholecalciferol 1,000 Units Oral Daily [MAY Hold] levothyroxine 150 mcg Oral Daily [MAY Hold] tamsulosin 0.4 mg Oral Daily [MAY Hold] aspirin 81 mg Oral Daily [MAY Hold] insulin lispro 1-4 Units Subcutaneous Q4H SILVER [MAY Hold] insulin glargine (Lantus;Semglee) (100 unit/mL) subcutaneous injection 5 Units Subcutaneous Daily [May] sodium chloride 0.9 % (flush) 5 mL Intravenous BID Continuous: [May] heparin (porcine) infusion 1,150 Units/hr (04/17/23 1237) PRN: aspirin, clopidogreL, fentaNYL (PF), midazolam (PF), [MAY Hold] senna- docusate, [MAY Hold] polyethylene glycoL (MIRALAX) oral powder, [MAY Hold] HYDROmorphone, [MAY Hold] acetaminophen, [MAY Hold] heparin (porcine) infusion AND [MAY Hold] heparin (porcine), [MAY Hold] glucose 40% oral geL OR [MAY Hold] dextrose OR [MAY Hold] glucagon, [MAY Hold] sodium chloride 0.9 % (flush), [MAY Hold] lidocaine, [MAY Hold] nitroGLYcerin, [MAY Hold] sodium chloride 0.9 % (flush) Assessment & Plan: Huber Brent Mosher is a 67 y.o. male w/ PMH of CAD (per CT scan imaging), HFrEF, cardiomyopathy (stress vs ischemic), high risk prostate cancer with multiple mets to bones/lymph nodes,CKD, IDDM2, hypothyroidism who was transferred from [place] for NSTEMI was found to have 3 vessel disease confirmed by [facility]. Mr. Mosher opted for PCI with Dr. Esposito today. Will stent Left main and LAD with possible stentof LEGAL EXECUTIVE ASSISTANT of Lcx. Lcx may be delayed as part of a staged procedure given limitations due to CKD and increased Cr 1.58 and BUN 30. He was plavix loaded yesterday with 300 mg. Will continue plavix and aspirin for DAPT post PCI. #NSTEMI --Chest pain protocol: EKG prn chest pain, nitro prn chest pain --heparin gtt continued --ASA 81mg qd s/p load 324 --Plavix 75 mg qd after PCI --atorvastatin 40 qd --initiate BB if HR/BP allows --cont to hold diuresis --PCI today with goal of stenting L main/LAD and possibly LEGAL EXECUTIVE ASSISTANT of Lcx. #Metastatic prostate cancer -hold darolutamide given cardiotoxicity until f/u with primary oncologist, per hem onc -prn tylenol -home tamsulosin #T2DM --Sensitive SSI --lantus 5 units (dose reduced from 10-12 units at home) #Hypothyroidism -continue home synthroid #Routine Diet: Daily Healthy Menu Choices/Cardiac diet ([facility] [place]Diet) GI Prophylaxis: Docusate-Senna and Mirelax BID PRN DVT Prophylaxis: Heparin gtt, aspirin 81 mg Dispo: Pending clinical course Code Status: Attempt Cardiopulmonary Resuscitation - Inpatient Lisa Bernard, MS3 [facility] 04/18/23 9:24 AM * Sidney Maldonado MD - 04/18/2023 6:40 AM EST Images from the original note were not included. Inpatient Cardiology Progress Note Patient info: Name: Huber Mosher : 1955 PCP: JESSE Nesbitt PCP phone number: [phone] Date of Admission: 04/13/2023 ( Hospital Day 5 days ) Attending:Sidney Maldonado MD ID: Huber Mosher is a 67 y.o. male w/ PMH of PMH CAD (per CT scan imaging), cardiomyopathy (stress vs ischemic), high risk prostate cancer with multiple mets to bones/lymph nodes,CKD, IDDM2, hypothyroidism, and bilateral hydronephrosis s/p stents who presents as a transfer from [place] for NSTEMI 24 Hour Events/Subjective: -- NPO at midnight for PCI - Plavix loaded - Received 1u pRBC before procedure yesterday - NAEO This AM: - Denies chest pain, SOB, palpatations, lightheadness, abdominal pain Objective: Vitals Last value Range last 24 hrs Temperature Temp: 36.6 ??C (97.8 ??F) Temp: [36.4 ??C (97.5 ??F)-36.9 ??C (98.4 ??F)] Heart Rate Heart Rate: 65 Heart Rate: [65-78] Blood Pressure BP: 101/61 BP: (86-114)/(47-67) Art Line BP BP (Arterial Line): -- MAP (NBP): [62 mmHg-79 mmHg] Respiratory Rate Resp: 15 Resp: [15-17] SpO2 SpO2: 99 % SpO2: [99 %-100 %] Oxygen Delivery Oxygen Therapy O2 Device: None (Room air) Reason for Oxygen: Patient currently on room air Intake/Output Summary (Last 24 hours) at 04/18/2023 0641 Last data filed at 04/18/2023 0400 Gross per 24 hour Intake 743.67 ml Output 1250 ml Net -506.33 ml Patient Vitals for the past 168 hrs: Weight 04/18/23 0415 83 kg (183 lb) 04/17/23 0459 83.2 kg (183 lb 6.4 oz) 04/16/23 0535 82.9 kg (182 lb 12.8 oz) 04/15/23 0311 83 kg (183 lb) 04/14/23 0652 85.6 kg (188 lb 11.4 oz) 04/13/23 1756 86 kg (189 lb 9.6 oz) Admit wt: 86 kg Physical Exam: Gen: in bed in NAD; alert, oriented, conversant CV: RRR, no murmurs/rubs/gallops Resp: CTAB, no crackles/wheezes/ronchi, normal work of breathing Abd: normal bowel sounds, soft, non-tender to palpation, no rebound or guarding Ext: 2+ distal pulses, RLE edema 2+ (chronic) no LLE edema Neuro: no focal deficits noted, moves all extremities spontaneously Skin: no rashes, lesions, or ulcerations noted Lines/Drains/Airways Lines: Implanted Port 03/09/23799 Single Lumen (Active) Port Accessed Date 04/13/23 04/13/232300 Port Accessed Time 224404/13/232300 Access Needle 20 gauge;1 in length 04/13/232300 Pain Prevention intradermal injection 04/13/232300 Unsuccessful Insertion Attempts 1 04/13/232300 Unsuccessful Insertion Attempt Location single port 04/14/232113 Indication/Daily Review of Necessity Medications known to cause phlebitis (vasopressors, concentrated electrolytes, TPN, chemotherapy);Inadequate peripheral IV access (see comment) 04/14/232113 Site Preparation/Maintenance dressing: dry and intact 04/15/23511 Dressing change due 04/20/23 04/14/232113 Needleless Connector change due 04/16/23 04/14/232113 Lumen Patency/Care flushed without difficulty;blood return present;alcohol impregnated cap applied 04/14/232113 Phlebitis 0-->no symptoms 04/15/23511 Infiltration 0-->no symptoms 04/15/23511 Site Signs/Symptoms no redness;no swelling;no warmth;no pain;no palpable cord;no streak formation;no drainage 04/14/23 1920 Port De-access Date 04/11/23 04/11/23 1146 Port De-Access Time 1146 04/11/23 1146 Port De-Access Indication other (see comments) 04/11/23 1146 PIV 04/12/23 2230 basilic vein (medial side of arm), left (Active) Indication/Daily Review of Necessity fluid therapy intermittent;medication therapy intermittent 04/14/232113 Site Preparation/Maintenance dressing: dry and intact 04/15/23511 Securement catheter stabilization device, secured with 04/14/232113 Patency/Maintenance infusing 04/14/232304 Phlebitis 0-->no symptoms 04/15/23 05 Infiltration 0-->no symptoms 04/15/23511 Site Signs/Symptoms no redness;no swelling;no warmth;no pain;no palpable cord;no streak formation;no drainage 04/14/23 192 Labs: Recent Labs 04/18/23 03304/17/2331404/16/23 0425 04/15/23 0511 04/14/23 0040 WBC 4.2 4.0 4.3 4.3 5.0 HGB 9.0* 8.0* 8.1* 8.3* 8.6* HCT 27.1* 23.9* 24.5* 25.5* 25.3* PLATELET 321 299 286 305 314 MCV 93.1 94.1* 93.5* 97.0* 94.4* Recent Labs 04/18/2332904/17/2331404/16/23 0425 04/15/23 0511 04/14/23 0040 NA 137 138 135 137 134* CL 105 104 102 104 103 CO2 20* 22 22 23 21* K 4.5 4.5 4.2 4.2 4.3 MAGNESIUM 0.83 0.85 0.81 0.88 0.89 PHOS 3.6 4.2 4.6* 4.7* 3.8 CALCIUM 9.4 8.8 9.0 8.9 8.6 BUN 30* 33* 38* 38* 41* CREATININE 1.58* 1.75* 1.79* 1.76* 1.71* LFTs Recent Labs 04/13/232106 PROT 5.8* ALBUMIN 3.4 AST 27 ALT 10 ALKPHOS 53 BILITOT 0.3 BILIDIR 0.1 Coags No results for input(s): INR, PT, PTT, FIBRINOGEN, DDIMER in the last 168 hours. Invalid input(s): THROMBIN TIME Cardiac Enzymes Recent Labs 04/13/232106 PROBNP 6,510* Endocrine Recent Labs 04/13/23210609/30/22 0617 TSH 2.97 3.16 Recent Labs 04/18/2333804/17/23 2332 04/17/23 1931 04/17/23 1610 04/17/23 1047 04/17/23 0740 04/17/23 0325 04/17/23 0006 04/16/23 2015 04/16/23 1526 04/16/23 1121 04/16/23 0733 POCGLU 157 157 155 235* 128 170 149 147 216* 226* 156 149 Heme No results for input(s): LDH, HAPTOGLOBIN, URICACID in the last 168 hours. ABG (Arterial Blood Gas) No results found for: PHART, PO2ART, KCF4DFU, AYG2JLB Microbiology: Microbiology Results (Last 30 days) No results found for the last 720 hours. Imaging: No results found for this visit on 04/13/23. Medications Scheduled Meds: clopidogreL 75 mg Oral Daily lidocaine 1 patch Transdermal Daily atorvastatin 40 mg Oral Daily cholecalciferol 1,000 Units Oral Daily levothyroxine 150 mcg Oral Daily tamsulosin 0.4 mg Oral Daily aspirin 81 mg Oral Daily insulin lispro 1-4 Units Subcutaneous Q4H SILVER insulin glargine (Lantus;Semglee) (100 unit/mL) subcutaneous injection 5 Units Subcutaneous Daily sodium chloride 0.9 % (flush) 5 mL Intravenous BID Continuous Infusions: heparin (porcine) infusion 1,150 Units/hr (04/17/23 1237) PRN Meds:.senna-docusate, polyethylene glycoL (MIRALAX) oral powder, HYDROmorphone, acetaminophen, heparin (porcine) infusion AND heparin (porcine), glucose 40% oral geL OR dextrose OR glucagon, sodium chloride 0.9 % (flush), lidocaine, nitroGLYcerin, sodium chloride 0.9 % (flush) Assessment & Plan: Huber Mosher is a 67 y.o. male PMH CAD (per CT scan imaging), cardiomyopathy (stress vs ischemic), high risk prostate cancer with multiple mets to bones/lymph nodes,CKD, IDDM2, hypothyroidism, and bilateral hydronephrosis s/p stents who presents as a transfer from [place] for NSTEMI Discussion with Dr. Thompson today patient to go for PCI with impella this AM and currently at cath. Patient was loaded with Plavix yesterday and started on scheduled Plavix this AM. Received 1u pRBCyesterday in anticipation of hemolysis with Impella. Will f/u recs after [employer] as plan to stent LM-LAD and utilize Impella to off load LV. Will decide intraoperatively on RCA pending left coronaryintervention Appears euvolemic today, will not diuresis today as on RA, with no signs suggestive of fluid overload. Has chronic R BLE edema likely from lymphatic obstruction. #NSTEMI type 1 #Multivessel ASCVD #HFrEF -- Interventional cardiology following -- PCI today -- Continue heparin gtt -- cw ASA, Atorvastatin --c/w plavix s/p plavix load -- holding metoprolol concern for low BP -- s/p diuresis with IV lasix 40mg 04/14-04/15 #Metastatic prostate cancer #RLE chronic Lymphedema -hold darolutamide given cardiotoxicity -- oncology consulted, appreciate recs and input -prn tylenol #T2DM --Sliding scale insulin --lantus 5 units (dose reduced from 10-12 units at home) #Hypothyroidism #BPH -continue home synthroid -- continue home tamsulosin #Normocytic Anemia (stable) - Hgb stable no signs of bleeding - Transfused 1U pRBC before PCI with impella (04/17) #Routine Diet: NPO diet (Give Meds) DVT Prophylaxis: on heparin gtt GI Prophylaxis: na Code Status: Attempt Cardiopulmonary Resuscitation - Inpatient Dispo: Pending clinical course Tomer Hernandez MD Internal Medicine, PGY-1 Cardiology, S2 04/18/23 6:41 AM Cardiology Attending Attestation/Addendum: Please see Tomer Hernandez MD's note for details of the patient history and data. I have discussed, independently reviewed the pertinent diagnostic information, and agree with the principal findings as documented in the History, Physical Findings, Assessment and Plan of Care. The assessment andplan were formulated in discussion with me. ID & Pertinent History: Mr. Mosher is a 67 yo man who presented to OSH with chest pain, diaphoresis, shortness of breath.He has a PMHx sig for metastatic prostate cancer, cardiomyopathy (undifferentiated), CKD, DM2, bilateral hydronephrosis, hypothyroidism. He was found to have an NSTEMI (peak trop 5255). LVEF 29%, mode rate MR. CASAS demonstrated severe distal LM and oLAD stenosis, LEGAL EXECUTIVE ASSISTANT RCA, moderate oRPDA. Major Issues Addressed: ASCVD, multiple vessel disease Ischemic cardiomyopathy Metastatic prostate cancer Assessment & Plan: PCI today. Continue DAPT, statin. Will titrate up HFrEF therapies post PCI. Sidney Maldonado MD, [facility] Staff [employer] * Lisa Yarbrough - 04/17/2023 7:58 AM EST Images from the original note were not included. Inpatient Cardiology Progress Note Patient info: Name: Huber Mosher : 1955 PCP: JESSE Nesbitt PCP phone number: [phone] Date of Admission: 04/13/2023 ( Hospital Day 4 days ) Attending:Sidney Maldonado MD ID: Huber Mosher is a 67 y.o. male w/ PMH of CAD (per CT scan imaging), HFrEF, cardiomyopathy(stress vs ischemic), high risk prostate cancer with multiple mets to bones/lymph nodes,CKD, IDDM2,hypothyroidism who was transferred from [place] for NSTEMI. 24 Hour Events/Subjective: - NPO at midnight for possible PCI today. - given docusate-senna and miralax for no bowel movement in 4 days. This morning Mr. Mosher had an episode of liquid stools with urgency. He was awoken from sleep bythe bowel movement and was not able to make it to the bathroom in time. There is no associated abdominal pain, changes in stool color. He endorses some SOB when standing up that passes within seconds. There is no associated lightheadedness, LOC, palpitations. He denies chest pain, n/v. Objective: Vitals Last value Range last 24 hrs Temperature Temp: 36.9 ??C (98.4 ??F) Temp: [36 ??C (96.8 ??F)-36.9 ??C (98.4 ??F)] Heart Rate Heart Rate: 63 Heart Rate: [63-70] Blood Pressure BP: 90/52 BP: (81-99)/(44-61) Art Line BP BP (Arterial Line): -- MAP (NBP): [5 mmHg-70 mmHg] Respiratory Rate Resp: 16 Resp: [16] SpO2 SpO2: 100 % SpO2: [97 %-100 %] Oxygen Delivery Oxygen Therapy O2 Device: None (Room air) Reason for Oxygen: Patient currently on room air Intake/Output Summary (Last 24 hours) at 04/17/2023 0958 Last data filed at 04/17/2023 0800 Gross per 24 hour Intake 1000 ml Output 1675 ml Net -675 ml Patient Vitals for the past 168 hrs: Weight 04/17/23 0459 83.2 kg (183 lb 6.4 oz) 04/16/23 0535 82.9 kg (182 lb 12.8 oz) 04/15/23 031 83 kg (183 lb) 04/14/23 0652 85.6 kg (188 lb 11.4 oz) 04/13/23 1756 86 kg (189 lb 9.6 oz) Dry weight: 83.2 kg Physical Exam: Gen: in bed in NAD; alert, oriented, conversant HEENT: anicteric, EOMI intact, CV: RRR, no murmurs/gallops; Resp: CTAB, no crackles/wheezes/ronchi, normal work of breathing Abd: soft, non-tender, non-distended, no rebound or guarding Ext: 2+ distal pulses, right lower extremity edema +2 pitting. Left lower extremity trace edema. Neuro: no focal deficits noted, moves all extremities spontaneously Skin: no rashes, lesions, or ulcerations noted Lines/Drains/Airways: Implanted single lumen port Peripheral IV L. Basilic vein Labs: Recent Labs 04/17/2331404/16/2342404/15/2351004/14/23 0040 04/13/23 2107 WBC 4.0 4.3 4.3 5.0 5.5 HGB 8.0* 8.1* 8.3* 8.6* 9.0* HCT 23.9* 24.5* 25.5* 25.3* 27.4* PLATELET 299 286 305 314 318 MCV 94.1* 93.5* 97.0* 94.4* 96.1* Recent Labs 04/17/2331404/16/2342404/15/23 0504/14/23 0040 04/13/232106 NA 138 135 137 134* 135 CL 104 102 104 103 102 CO2 22 22 23 21* 21* K 4.5 4.2 4.2 4.3 4.4 MAGNESIUM 0.85 0.81 0.88 0.89 0.86 PHOS 4.2 4.6* 4.7* 3.8 3.7 CALCIUM 8.8 9.0 8.9 8.6 8.6 8.6 BUN 33* 38* 38* 41* 42* CREATININE 1.75* 1.79* 1.76* 1.71* 1.78* LFTs Recent Labs 04/13/232106 PROT 5.8* ALBUMIN 3.4 AST 27 ALT 10 ALKPHOS 53 BILITOT 0.3 BILIDIR 0.1 Cardiac Enzymes Recent Labs 04/13/23 210 PROBNP 6,510* Endocrine Recent Labs 04/13/23210609/30/22 0617 TSH 2.97 3.16 Recent Labs 04/17/23 0740 04/17/23 0325 04/17/23 0006 04/16/23 2015 04/16/23 1526 04/16/23 1121 04/16/23 0733 04/16/23 0405 04/15/23 2350 04/15/23 2143 04/15/23 1937 04/15/23 1645 POCGLU 170 149 147 216* 226* 156 149 162 133 130 249* 186 Imaging: [facility] (04/14/23): Ao 94/40 mean 66 LV 99 EDP 25 Conclusions: * Three vessel coronary artery disease (LAD, LCX and RCA) * Elevated left ventricular end diastolic pressure * Severe calcified distal LM and ostial LAD stenosis * LEGAL EXECUTIVE ASSISTANT of the ostial LCx, this is a smaller vessel * Recommend heart team consult to consider PCI vs CABG. He may not be a good candidate for bypass given co-morbidities and targets. In this case would plan for staged PCI of LM-LAD with considerationof LEGAL EXECUTIVE ASSISTANT PCI of LCx. He had CKD and Cr limits further intervention today so we will stop and weight all the options. ECHO (04/14/23): Left ventricle is mildly dilated with severely reduced systolic function. There are regional wall motion abnormaltiies as ascribed. No LV thrombus. Right ventricle is normal in size and systolic function. PASP of 55 mmHg plus estimated RA pressure. IVC is non-dilated and non-plethoric. Moderate atri oventricular valve regurgitation. Compared to prior study dated 03/2023, there has been a decrement in EF (previously 46%), with more anterior distribution of regional wall motion abnormality. EF 29% Medications Scheduled: polyethylene glycoL (MIRALAX) oral powder 17 g Oral Daily senna-docusate 2 tablet Oral BID lidocaine 1 patch Transdermal Daily atorvastatin 40 mg Oral Daily cholecalciferol 1,000 Units Oral Daily levothyroxine 150 mcg Oral Daily tamsulosin 0.4 mg Oral Daily aspirin 81 mg Oral Daily insulin lispro 1-4 Units Subcutaneous Q4H SILVER insulin glargine (Lantus;Semglee) (100 unit/mL) subcutaneous injection 5 Units Subcutaneous Daily sodium chloride 0.9 % (flush) 5 mL Intravenous BID Continuous: heparin (porcine) infusion 1,150 Units/hr (04/16/23 1520) PRN: HYDROmorphone, acetaminophen, heparin (porcine) infusion AND heparin (porcine), glucose 40% oral geL OR dextrose OR glucagon, sodium chloride 0.9 % (flush), lidocaine, nitroGLYcerin,sodium chloride 0.9 % (flush) Assessment & Plan: Huber Mosher is a 67 y.o. male w/ PMH of CAD (per CT scan imaging), HFrEF, cardiomyopathy (stress vs ischemic), high risk prostate cancer with multiple mets to bones/lymph nodes,CKD, IDDM2, hypothyroidism who was transferred from [place] for NSTEMI was found to have 3 vessel disease confirmed by [facility]. Mr. Mosher is being evaluated today for PCI. Will continue to hold plavix. Will f/u interventional cardiology for recs possible PCI of left main/LAD today without stenting of LEGAL EXECUTIVE ASSISTANT in RCA with possible staged procedure later this week or stenting of both tomorrow. Will continue to hold diuretics given euvolemic volume status, noting that ROBERT is likely due to chronic lymphedema secondary to chemotherapy. Will make laxatives PRN d/t liquid stools/incontinence this morning. #NSTEMI --Chest pain protocol: EKG prn chest pain, nitro prn chest pain --heparin gtt continued --ASA 81mg qd s/p load 324 --holding plavix pending PCI. --atorvastatin 40 qd --initiate BB if HR/BP allows --cont to hold diuresis --Possible PCI today with staged procedure or tomorrow with goal of stenting L main/LAD and RCA simultaneously. #Metastatic prostate cancer -hold darolutamide given cardiotoxicity until f/u with primary oncologist, per hem onc -prn tylenol -home tamsulosin #T2DM --Sensitive SSI --lantus 5 units (dose reduced from 10-12 units at home) #Hypothyroidism -continue home synthroid #Routine Diet: Daily Healthy Menu Choices/Cardiac diet ([facility] [place]Diet) GI Prophylaxis: Docusate-Senna and Mirelax BID PRN DVT Prophylaxis: Heparin gtt, aspirin 81 mg Dispo: Pending clinical course Code Status: Attempt Cardiopulmonary Resuscitation - Inpatient Lisa Alvarado Marco Antonio, MS3 [facility] 04/17/23 9:58 AM * Sidney Maldonado MD - 04/17/2023 6:27 AM EST Images from the original note were not included. Inpatient Cardiology Progress Note Patient info: Name: Huber Mosher : 1955 PCP: JESSE Nesbitt PCP phone number: [phone] Date of Admission: 04/13/2023 ( Hospital Day 4 days ) Attending:Sidney Maldonado MD ID: Huber Mosher is a 67 y.o. male w/ PMH of PMH CAD (per CT scan imaging), cardiomyopathy (stress vs ischemic), high risk prostate cancer with multiple mets to bones/lymph nodes,CKD, IDDM2, hypothyroidism, and bilateral hydronephrosis s/p stents who presents as a transfer from [place] for NSTEMI 24 Hour Events/Subjective: -- NPO at midnight if interventional cards decide for high risk PCI today - NAEO This AM: - Still having few seconds of SOB that self resolves not increasing in frequency. Denies chest pain, palpitations, lightheaded, abdominal pain -- Had BM this AM. Objective: Vitals Last value Range last 24 hrs Temperature Temp: 36 ??C (96.8 ??F) Temp: [36 ??C (96.8 ??F)-36.7 ??C (98 ??F)] Heart Rate Heart Rate: 63 Heart Rate: [63-70] Blood Pressure BP: 94/55 BP: (81-99)/(44-62) Art Line BP BP (Arterial Line): -- MAP (NBP): [5 mmHg-71 mmHg] Respiratory Rate Resp: 16 Resp: [16] SpO2 SpO2: 100 % SpO2: [97 %-100 %] Oxygen Delivery Oxygen Therapy O2 Device: None (Room air) Reason for Oxygen: Patient currently on room air Intake/Output Summary (Last 24 hours) at 04/17/2023 06 Last data filed at 04/17/2023 0400 Gross per 24 hour Intake 1559.93 ml Output 2075 ml Net -515.07 ml Patient Vitals for the past 168 hrs: Weight 04/17/23 0459 83.2 kg (183 lb 6.4 oz) 04/16/23 0535 82.9 kg (182 lb 12.8 oz) 04/15/23 0311 83 kg (183 lb) 04/14/23 0652 85.6 kg (188 lb 11.4 oz) 04/13/23 1756 86 kg (189 lb 9.6 oz) Admit wt: 86 kg Physical Exam: Gen: in bed in NAD; alert, oriented, conversant CV: RRR, no murmurs/rubs/gallops Resp: CTAB, no crackles/wheezes/ronchi, normal work of breathing Abd: normal bowel sounds, soft, non-tender to palpation, no rebound or guarding Ext: 2+ distal pulses, RLE edema 2+ (chronic) no LLE edema Neuro: no focal deficits noted, moves all extremities spontaneously Skin: no rashes, lesions, or ulcerations noted Lines/Drains/Airways Lines: Implanted Port 03/09/23 08 Single Lumen (Active) Port Accessed Date 04/13/23 04/13/232300 Port Accessed Time 224404/13/232300 Access Needle 20 gauge;1 in length 04/13/232300 Pain Prevention intradermal injection 04/13/232300 Unsuccessful Insertion Attempts 1 04/13/232300 Unsuccessful Insertion Attempt Location single port 04/14/232113 Indication/Daily Review of Necessity Medications known to cause phlebitis (vasopressors, concentrated electrolytes, TPN, chemotherapy);Inadequate peripheral IV access (see comment) 04/14/232113 Site Preparation/Maintenance dressing: dry and intact 04/15/23511 Dressing change due 04/20/23 04/14/232113 Needleless Connector change due 04/16/23 04/14/232113 Lumen Patency/Care flushed without difficulty;blood return present;alcohol impregnated cap applied 04/14/232113 Phlebitis 0-->no symptoms 04/15/23511 Infiltration 0-->no symptoms 04/15/23511 Site Signs/Symptoms no redness;no swelling;no warmth;no pain;no palpable cord;no streak formation;no drainage 04/14/231919 Port De-access Date 04/11/23 04/11/23 1146 Port De-Access Time 1146 04/11/23 1146 Port De-Access Indication other (see comments) 04/11/23 1146 PIV 04/12/23 2230 basilic vein (medial side of arm), left (Active) Indication/Daily Review of Necessity fluid therapy intermittent;medication therapy intermittent 04/14/232113 Site Preparation/Maintenance dressing: dry and intact 04/15/23511 Securement catheter stabilization device, secured with 04/14/232113 Patency/Maintenance infusing 04/14/232304 Phlebitis 0-->no symptoms 04/15/23511 Infiltration 0-->no symptoms 04/15/23511 Site Signs/Symptoms no redness;no swelling;no warmth;no pain;no palpable cord;no streak formation;no drainage 04/14/231919 Labs: Recent Labs 04/17/23 0315 04/16/23 0425 04/15/23 0511 04/14/23 0040 04/13/237 WBC 4.0 4.3 4.3 5.0 5.5 HGB 8.0* 8.1* 8.3* 8.6* 9.0* HCT 23.9* 24.5* 25.5* 25.3* 27.4* PLATELET 299 286 305 314 318 MCV 94.1* 93.5* 97.0* 94.4* 96.1* Recent Labs 04/17/23 0315 04/16/23 0425 04/15/23 0511 04/14/23 0040 04/13/237 NA 138 135 137 134* 135 CL 104 102 104 103 102 CO2 22 22 23 21* 21* K 4.5 4.2 4.2 4.3 4.4 MAGNESIUM 0.85 0.81 0.88 0.89 0.86 PHOS 4.2 4.6* 4.7* 3.8 3.7 CALCIUM 8.8 9.0 8.9 8.6 8.6 8.6 BUN 33* 38* 38* 41* 42* CREATININE 1.75* 1.79* 1.76* 1.71* 1.78* LFTs Recent Labs 04/13/232106 PROT 5.8* ALBUMIN 3.4 AST 27 ALT 10 ALKPHOS 53 BILITOT 0.3 BILIDIR 0.1 Coags No results for input(s): INR, PT, PTT, FIBRINOGEN, DDIMER in the last 168 hours. Invalid input(s): THROMBIN TIME Cardiac Enzymes Recent Labs 04/13/232106 PROBNP 6,510* Endocrine Recent Labs 04/13/23 2107 09/30/22 0617 TSH 2.97 3.16 Recent Labs 04/17/23 0325 04/17/23 0006 04/16/23 2015 04/16/23 1526 04/16/23 1121 04/16/23 0733 04/16/23 0405 04/15/23 2350 04/15/23 2143 04/15/23 1937 04/15/23 1645 04/15/23 1210 POCGLU 149 147 216* 226* 156 149 162 133 130 249* 186 205* Heme No results for input(s): LDH, HAPTOGLOBIN, URICACID in the last 168 hours. ABG (Arterial Blood Gas) No results found for: PHART, PO2ART, [id number], [id number] Microbiology: Microbiology Results (Last 30 days) No results found for the last 720 hours. Imaging: No results found for this visit on 04/13/23. Medications Scheduled Meds: polyethylene glycoL (MIRALAX) oral powder 17 g Oral Daily senna-docusate 2 tablet Oral BID lidocaine 1 patch Transdermal Daily atorvastatin 40 mg Oral Daily cholecalciferol 1,000 Units Oral Daily levothyroxine 150 mcg Oral Daily tamsulosin 0.4 mg Oral Daily aspirin 81 mg Oral Daily insulin lispro 1-4 Units Subcutaneous Q4H SILVER insulin glargine (Lantus;Semglee) (100 unit/mL) subcutaneous injection 5 Units Subcutaneous Daily sodium chloride 0.9 % (flush) 5 mL Intravenous BID Continuous Infusions: heparin (porcine) infusion 1,150 Units/hr (04/16/23 1520) PRN Meds:.HYDROmorphone, acetaminophen, heparin (porcine) infusion AND heparin (porcine), glucose 40% oral geL OR dextrose OR glucagon, sodium chloride 0.9 % (flush), lidocaine, nitroGLYcerin, sodium chloride 0.9 % (flush) Assessment & Plan: Huber Mosher is a 67 y.o. male PMH CAD (per CT scan imaging), cardiomyopathy (stress vs ischemic), high risk prostate cancer with multiple mets to bones/lymph nodes,CKD, IDDM2, hypothyroidism, and bilateral hydronephrosis s/p stents who presents as a transfer from [place] for NSTEMI Per [facility] patient has severe multivessel CAD. Left main disease would support surgical intervention, but lack of Lcx target makes surgical benefit more equivocal per cardiac surgery, Patient prefers PCI. Will discuss risk of benefits of PCI today is NPO if able to go for procedure today, unless he dev elops evidence of new acute ischemia. Pending intervention will continue heparin gtt and ASA. Holding plavix pending surgery decision. Appears euvolemic today, will not diuresis today as on RA, with no signs suggestive of fluid overload. #NSTEMI type 1 #Multivessel ASCVD #HFrEF -- CT surgery and Interventional cardiology following -- PCI vs CABG, pending patient decision -- Continue heparin gtt -- cw ASA, Atorvastatin -- Holding plavix until decision on procedure -- holding metoprolol concern for low BP -- s/p diuresis with IV lasix 40mg 04/14-04/15 #Metastatic prostate cancer #RLE chronic Lymphedema -hold darolutamide given cardiotoxicity -- oncology consulted, appreciate recs and input -prn tylenol #T2DM --Sliding scale insulin --lantus 5 units (dose reduced from 10-12 units at home) #Hypothyroidism #BPH -continue home synthroid -- continue home tamsulosin #Routine Diet: NPO diet (Give Meds) DVT Prophylaxis: on heparin gtt GI Prophylaxis: na Code Status: Attempt Cardiopulmonary Resuscitation - Inpatient Dispo: Pending clinical course Tomer Hernandez MD Internal Medicine, PGY-1 Cardiology, S2 04/17/23 6:27 AM Cardiology Attending Attestation/Addendum: Please see Tomer Hernandez MD's note for details of the patient history and data. I have discussed, independently reviewed the pertinent diagnostic information, and agree with the principal findings as documented in the History, Physical Findings, Assessment and Plan of Care. The assessment andplan were formulated in discussion with me. ID & Pertinent History: Mr. Mosher is a 67 yo man who presented to OSH with chest pain, diaphoresis, shortness of breath.He has a PMHx sig for metastatic prostate cancer, cardiomyopathy (undifferentiated), CKD, DM2, bilateral hydronephrosis, hypothyroidism. He was found to have an NSTEMI (peak trop 5255). LVEF 29%, mode rate MR. [facility] demonstrated severe distal LM and oLAD stenosis, LEGAL EXECUTIVE ASSISTANT RCA, moderate oRPDA. Major Issues Addressed: ASCVD, multiple vessel disease Ischemic cardiomyopathy Acute on chronic HFrEF Metastatic prostate cancer Assessment & Plan: Discussed with [employer], Dr. Citlalli Esposito. Will plan on proceeding with PCI tomorrow. Will plan on probing LCx but if appears to be technically challenging using antegrade approach, will focus on stenting LM-LAD. Will also utilize Impella to assist/off-load LV. Will decide on RCA pending left coronary interventions. Load with clopidogrel today. Will transfuse 1U PRBC given anticipated hemolysis with Impella. Sidney Maldonado MD, [facility] Staff [employer] * Sidney Maldonado MD - 04/16/2023 6:29 AM EST Images from the original note were not included. Inpatient Cardiology Progress Note Patient info: Name: Huber Mosher : 1955 PCP: JESSE Nesbitt PCP phone number: [phone] Date of Admission: 04/13/2023 ( Hospital Day 3 days ) Attending:Sidney Maldonado MD ID: Huber Mosher is a 67 y.o. male w/ PMH of PMH CAD (per CT scan imaging), cardiomyopathy (stress vs ischemic), high risk prostate cancer with multiple mets to bones/lymph nodes,CKD, IDDM2, hypothyroidism, and bilateral hydronephrosis s/p stents who presents as a transfer from [place] for NSTEMI 24 Hour Events/Subjective: -- Plan for PCI early this week. -- continued on heparin due to severe Left main disease. -- diuresis with 40mg IV lasix This AM: -- No bowel movement since last Monday - Occasional few seconds of SOB that self reosolves. Denies chest pain, palpitations, lightheaded, abdominal pain -- Plan for PCI Monday Objective: Vitals Last value Range last 24 hrs Temperature Temp: 36.6 ??C (97.9 ??F) Temp: [36.5 ??C (97.7 ??F)-36.8 ??C (98.2 ??F)] Heart Rate Heart Rate: 64 Heart Rate: [64-81] Blood Pressure BP: 92/60 BP: (91-97)/(55-60) Art Line BP BP (Arterial Line): -- MAP (NBP): [67 mmHg-69 mmHg] Respiratory Rate Resp: 16 Resp: [14-18] SpO2 SpO2: 100 % SpO2: [100 %] Oxygen Delivery Oxygen Therapy O2 Device: None (Room air) Reason for Oxygen: Patient currently on room air Intake/Output Summary (Last 24 hours) at 04/16/2023 0629 Last data filed at 04/16/2023 0608 Gross per 24 hour Intake 1784.72 ml Output 2500 ml Net -715.28 ml Patient Vitals for the past 168 hrs: Weight 04/16/23 0535 82.9 kg (182 lb 12.8 oz) 04/15/23 0311 83 kg (183 lb) 04/14/23 0652 85.6 kg (188 lb 11.4 oz) 04/13/23 1756 86 kg (189 lb 9.6 oz) Admit wt: 86 kg Physical Exam: Gen: in bed in NAD; alert, oriented, conversant CV: RRR, no murmurs/rubs/gallops Resp: CTAB, no crackles/wheezes/ronchi, normal work of breathing Abd: normal bowel sounds, soft, non-tender to palpation, no rebound or guarding Ext: 2+ distal pulses, no pedal edema Neuro: no focal deficits noted, moves all extremities spontaneously Skin: no rashes, lesions, or ulcerations noted Lines/Drains/Airways Lines: Implanted Port 03/09/23799 Single Lumen (Active) Port Accessed Date 04/13/23 04/13/232300 Port Accessed Time 224404/13/232300 Access Needle 20 gauge;1 in length 04/13/232300 Pain Prevention intradermal injection 04/13/232300 Unsuccessful Insertion Attempts 1 04/13/232300 Unsuccessful Insertion Attempt Location single port 04/14/232113 Indication/Daily Review of Necessity Medications known to cause phlebitis (vasopressors, concentrated electrolytes, TPN, chemotherapy);Inadequate peripheral IV access (see comment) 04/14/232113 Site Preparation/Maintenance dressing: dry and intact 04/15/23511 Dressing change due 04/20/23 04/14/232113 Needleless Connector change due 04/16/23 04/14/232113 Lumen Patency/Care flushed without difficulty;blood return present;alcohol impregnated cap applied 04/14/232113 Phlebitis 0-->no symptoms 04/15/23511 Infiltration 0-->no symptoms 04/15/23511 Site Signs/Symptoms no redness;no swelling;no warmth;no pain;no palpable cord;no streak formation;no drainage 04/14/23 192 Port De-access Date 04/11/23 04/11/23 1146 Port De-Access Time 1146 04/11/23 1146 Port De-Access Indication other (see comments) 04/11/23 1146 PIV 04/12/23 2230 basilic vein (medial side of arm), left (Active) Indication/Daily Review of Necessity fluid therapy intermittent;medication therapy intermittent 04/14/232113 Site Preparation/Maintenance dressing: dry and intact 04/15/23511 Securement catheter stabilization device, secured with 04/14/232113 Patency/Maintenance infusing 04/14/232304 Phlebitis 0-->no symptoms 04/15/23511 Infiltration 0-->no symptoms 04/15/23511 Site Signs/Symptoms no redness;no swelling;no warmth;no pain;no palpable cord;no streak formation;no drainage 04/14/23 192 Labs: Recent Labs 04/16/2342404/15/2351004/14/233904/13/232106 WBC 4.3 4.3 5.0 5.5 HGB 8.1* 8.3* 8.6* 9.0* HCT 24.5* 25.5* 25.3* 27.4* PLATELET 286 305 314 318 MCV 93.5* 97.0* 94.4* 96.1* Recent Labs 04/16/2342404/15/2351004/14/233904/13/232106 NA 135 137 134* 135 CL 102 104 103 102 CO2 22 23 21* 21* K 4.2 4.2 4.3 4.4 MAGNESIUM 0.81 0.88 0.89 0.86 PHOS 4.6* 4.7* 3.8 3.7 CALCIUM 9.0 8.9 8.6 8.6 8.6 BUN 38* 38* 41* 42* CREATININE 1.79* 1.76* 1.71* 1.78* LFTs Recent Labs 04/13/232106 PROT 5.8* ALBUMIN 3.4 AST 27 ALT 10 ALKPHOS 53 BILITOT 0.3 BILIDIR 0.1 Coags No results for input(s): INR, PT, PTT, FIBRINOGEN, DDIMER in the last 168 hours. Invalid input(s): THROMBIN TIME Cardiac Enzymes Recent Labs 04/13/232106 PROBNP 6,510* Endocrine Recent Labs 04/13/23210609/30/22 0617 TSH 2.97 3.16 Recent Labs 04/16/23 0405 04/15/23 2350 04/15/23 2143 04/15/23 1937 04/15/23 1645 04/15/23 1210 04/15/23 0745 04/15/23 0318 04/15/23 0034 04/14/23 1913 04/14/23 1642 04/14/23 1141 POCGLU 162 133 130 249* 186 205* 163 149 179 153 146 143 Heme No results for input(s): LDH, HAPTOGLOBIN, URICACID in the last 168 hours. ABG (Arterial Blood Gas) No results found for: PHART, PO2ART, [id number], [id number] Microbiology: Microbiology Results (Last 30 days) No results found for the last 720 hours. Imaging: No results found for this visit on 04/13/23. Medications Scheduled Meds: lidocaine 1 patch Transdermal Daily atorvastatin 40 mg Oral Daily cholecalciferol 1,000 Units Oral Daily levothyroxine 150 mcg Oral Daily tamsulosin 0.4 mg Oral Daily aspirin 81 mg Oral Daily insulin lispro 1-4 Units Subcutaneous Q4H SILVER insulin glargine (Lantus;Semglee) (100 unit/mL) subcutaneous injection 5 Units Subcutaneous Daily sodium chloride 0.9 % (flush) 5 mL Intravenous BID Continuous Infusions: heparin (porcine) infusion 1,150 Units/hr (04/15/23 1848) PRN Meds:.HYDROmorphone, acetaminophen, heparin (porcine) infusion AND heparin (porcine), glucose 40% oral geL OR dextrose OR glucagon, sodium chloride 0.9 % (flush), lidocaine, nitroGLYcerin, sodium chloride 0.9 % (flush) Assessment & Plan: Huber Mosher is a 67 y.o. male PMH CAD (per CT scan imaging), cardiomyopathy (stress vs ischemic), high risk prostate cancer with multiple mets to bones/lymph nodes,CKD, IDDM2, hypothyroidism, and bilateral hydronephrosis s/p stents who presents as a transfer from [place] for NSTEMI Per [facility] patient has severe multivessel CAD. Left main disease would support surgical intervention, but lack of Lcx target makes surgical benefit more equivocal. Patient prefers PCI. Will discuss riskof benefits of PCI tomorrow will make NPO at midnight for possible PCI unless he develops evidence of new acute ischemia. Pending intervention will continue heparin gtt and ASA. Holding plavix pending surgery decision. Given elevated LVEDP, reduced EF was diuresis with IV lasix 40mg last two days. Appears euvolemic today, will hold diuresis today in setting of possible going to [employer] tomorrow. #NSTEMI type 1 #Multivessel ASCVD #HFrEF -- CT surgery and Interventional cardiology following -- PCI vs CABG, pending patient decision -- Continue heparin gtt -- cw ASA, Atorvastatin -- holding metoprolol concern for low BP -- s/p diuresis with IV lasix 40mg 04/14-04/15 #Metastatic prostate cancer -hold darolutamide given cardiotoxicity -- oncology consulted, appreciate recs and input -prn tylenol #T2DM --Sliding scale insulin --lantus 5 units (dose reduced from 10-12 units at home) #Hypothyroidism #BPH -continue home synthroid -- continue home tamsulosin #Routine Diet: Carb Control diet / CHO counting level 4 DVT Prophylaxis: on heparin gtt GI Prophylaxis: na Code Status: Attempt Cardiopulmonary Resuscitation - Inpatient Dispo: Pending clinical course Tomer Hernandez MD Internal Medicine, PGY-1 Cardiology, S2 04/16/23 6:29 AM Cardiology Attending Attestation/Addendum: Please see Tomer Hernandez MD's note for details of the patient history and data. I have discussed, independently reviewed the pertinent diagnostic information, and agree with the principal findings as documented in the History, Physical Findings, Assessment and Plan of Care. The assessment andplan were formulated in discussion with me. ID & Pertinent History: Mr. Mosher is a 67 yo man who presented to OSH with chest pain, diaphoresis, shortness of breath.He has a PMHx sig for metastatic prostate cancer, cardiomyopathy (undifferentiated), CKD, DM2, bilateral hydronephrosis, hypothyroidism. He was found to have an NSTEMI (peak trop 5255). LVEF 29%, mode rate C demonstrated severe distal LM and oLAD stenosis, LEGAL EXECUTIVE ASSISTANT RCA, moderate oRPDA. Major Issues Addressed: ASCVD, multiple vessel disease Ischemic cardiomyopathy HFrEF Metastatic prostate cancer Assessment & Plan: Interventional Cardiology consult tomorrow AM for high-risk PCI. Will tentatively make pt NPO p MN for possible PCI (anticipate staged). Sidney Maldonado MD, [facility] Staff [employer] * Sidney Maldonado MD - 04/15/2023 7:57 AM EST Images from the original note were not included. Inpatient Cardiology Progress Note Patient info: Name: Huber Mosher : 1955 PCP: JESSE Nesbitt PCP phone number: [phone] Date of Admission: 04/13/2023 ( Hospital Day 2 days ) Attending:Sidney Maldonado MD ID: Huber Mosher is a 67 y.o. male w/ PMH of PMH CAD (per CT scan imaging), cardiomyopathy (stress vs ischemic), high risk prostate cancer with multiple mets to bones/lymph nodes,CKD, IDDM2, hypothyroidism, and bilateral hydronephrosis s/p stents who presents as a transfer from [place] for NSTEMI 24 Hour Events/Subjective: -- LHC showing Left Main, LAD, Left Cx (LEGAL EXECUTIVE ASSISTANT), RCA disease. No intervention due to possible benefit from CABG. CT surgery consulted, concerned that no good target for Lcx revasc. Patient continued on heparin due to severe Left main disease. -- Oncology consulted, okay holding chemo. This AM: -- Concerned about path forward, saw CT surgery, leaning towards PCI, but wanting time to weigh options. 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 Objective: Vitals Last value Range last 24 hrs Temperature Temp: 36.5 ??C (97.7 ??F) Temp: [36.4 ??C (97.5 ??F)-36.9 ??C (98.4 ??F)] Heart Rate Heart Rate: 70 Heart Rate: [67-89] Blood Pressure BP: 97/57 BP: (82-114)/(49-71) Art Line BP BP (Arterial Line): -- MAP (NBP): [60 mmHg-69 mmHg] Respiratory Rate Resp: 18 Resp: [6-20] SpO2 SpO2: 100 % SpO2: [97 %-100 %] Oxygen Delivery Oxygen Therapy O2 Device: None (Room air) Reason for Oxygen: Patient currently on room air Intake/Output Summary (Last 24 hours) at 04/15/2023 1356 Last data filed at 04/15/2023 0627 Gross per 24 hour Intake 510.33 ml Output 1676 ml Net -1165.67 ml Patient Vitals for the past 168 hrs: Weight 04/15/23 0311 83 kg (183 lb) 04/14/23 0652 85.6 kg (188 lb 11.4 oz) 04/13/23 1756 86 kg (189 lb 9.6 oz) Admit wt: 86 kg Physical Exam: Gen: in bed in NAD; alert, oriented, conversant HEENT: anicteric, EOMI intact, CV: RRR, no murmurs/rubs/gallops Resp: CTAB, no crackles/wheezes/ronchi, normal work of breathing Abd: normal bowel sounds, soft, non-tender to palpation, no rebound or guarding Ext: 2+ distal pulses, no pedal edema Neuro: no focal deficits noted, CN II-XII grossly intact, moves all extremities spontaneously Skin: no rashes, lesions, or ulcerations noted Lines/Drains/Airways Lines: Implanted Port 03/09/23799 Single Lumen (Active) Port Accessed Date 04/13/23 04/13/232300 Port Accessed Time 224404/13/232300 Access Needle 20 gauge;1 in length 04/13/232300 Pain Prevention intradermal injection 04/13/232300 Unsuccessful Insertion Attempts 1 04/13/232300 Unsuccessful Insertion Attempt Location single port 04/14/232113 Indication/Daily Review of Necessity Medications known to cause phlebitis (vasopressors, concentrated electrolytes, TPN, chemotherapy);Inadequate peripheral IV access (see comment) 04/14/232113 Site Preparation/Maintenance dressing: dry and intact 04/15/23511 Dressing change due 04/20/23 04/14/232113 Needleless Connector change due 04/16/23 04/14/232113 Lumen Patency/Care flushed without difficulty;blood return present;alcohol impregnated cap applied 04/14/232113 Phlebitis 0-->no symptoms 04/15/23511 Infiltration 0-->no symptoms 04/15/23511 Site Signs/Symptoms no redness;no swelling;no warmth;no pain;no palpable cord;no streak formation;no drainage 04/14/231919 Port De-access Date 04/11/23 04/11/23 1146 Port De-Access Time 1146 04/11/23 1146 Port De-Access Indication other (see comments) 04/11/23 1146 PIV 04/12/23 2230 basilic vein (medial side of arm), left (Active) Indication/Daily Review of Necessity fluid therapy intermittent;medication therapy intermittent 04/14/232113 Site Preparation/Maintenance dressing: dry and intact 04/15/23511 Securement catheter stabilization device, secured with 04/14/232113 Patency/Maintenance infusing 04/14/23 230 Phlebitis 0-->no symptoms 04/15/23511 Infiltration 0-->no symptoms 04/15/23511 Site Signs/Symptoms no redness;no swelling;no warmth;no pain;no palpable cord;no streak formation;no drainage 04/14/231919 Labs: Recent Labs 04/15/2351004/14/233904/13/232106 WBC 4.3 5.0 5.5 HGB 8.3* 8.6* 9.0* HCT 25.5* 25.3* 27.4* PLATELET 305 314 318 MCV 97.0* 94.4* 96.1* Recent Labs 04/15/2351004/14/230 04/13/232106 NA 137 134* 135 CL 104 103 102 CO2 23 21* 21* K 4.2 4.3 4.4 MAGNESIUM 0.88 0.89 0.86 PHOS 4.7* 3.8 3.7 CALCIUM 8.9 8.6 8.6 8.6 BUN 38* 41* 42* CREATININE 1.76* 1.71* 1.78* LFTs Recent Labs 04/13/232106 PROT 5.8* ALBUMIN 3.4 AST 27 ALT 10 ALKPHOS 53 BILITOT 0.3 BILIDIR 0.1 Coags No results for input(s): INR, PT, PTT, FIBRINOGEN, DDIMER in the last 168 hours. Invalid input(s): THROMBIN TIME Cardiac Enzymes Recent Labs 04/13/232106 PROBNP 6,510* Endocrine Recent Labs 04/13/23210609/30/22 0617 TSH 2.97 3.16 Recent Labs 04/15/23 0745 04/15/23 0318 04/15/23 0034 04/14/23 1913 04/14/23 1642 04/14/23 1141 04/14/23 0807 04/14/23 0356 04/14/23 0027 04/13/23 1914 POCGLU 163 149 179 153 146 143 181 148 184 146 Heme No results for input(s): LDH, HAPTOGLOBIN, URICACID in the last 168 hours. ABG (Arterial Blood Gas) No results found for: PHART, PO2ART, [id number], [id number] Microbiology: Microbiology Results (Last 30 days) No results found for the last 720 hours. Imaging: No results found for this visit on 04/13/23. Medications Scheduled Meds: lidocaine 1 patch Transdermal Daily atorvastatin 40 mg Oral Daily cholecalciferol 1,000 Units Oral Daily levothyroxine 150 mcg Oral Daily tamsulosin 0.4 mg Oral Daily aspirin 81 mg Oral Daily insulin lispro 1-4 Units Subcutaneous Q4H SILVER insulin glargine (Lantus;Semglee) (100 unit/mL) subcutaneous injection 5 Units Subcutaneous Daily sodium chloride 0.9 % (flush) 5 mL Intravenous BID Continuous Infusions: heparin (porcine) infusion 1,150 Units/hr (04/15/23 0627) PRN Meds:.HYDROmorphone, acetaminophen, heparin (porcine) infusion AND heparin (porcine), glucose 40% oral geL OR dextrose OR glucagon, sodium chloride 0.9 % (flush), lidocaine, nitroGLYcerin, sodium chloride 0.9 % (flush) Assessment & Plan: Huber Mosher is a 67 y.o. male PMH CAD (per CT scan imaging), cardiomyopathy (stress vs ischemic), high risk prostate cancer with multiple mets to bones/lymph nodes,CKD, IDDM2, hypothyroidism, and bilateral hydronephrosis s/p stents who presents as a transfer from [place] for NSTEMI Per [facility] patient has severe multivessel CAD. Left main disease would support surgical intervention, but lack of Lcx target makes surgical benefit more equivocal. Patient currently leaning towards PCI,will plan for early next week unless he develops evidence of new acute ischemia. Pending intervention will continue heparin gtt and ASA. Holding plavix pending surgery decision. Given elevated LVEDP,reduced EF will continue diuresis. #NSTEMI type 1 #Multivessel ASCVD #HFrEF -- CT surgery and Interventional cardiology following -- PCI vs CABG, pending patient decision -- Continue heparin gtt -- cw ASA, Atorvastatin -- Repeat diuresis with IV lasix 40mg #Metastatic prostate cancer -hold darolutamide given cardiotoxicity -- oncology consulted, appreciate recs and input -prn tylenol #T2DM --Sliding scale insulin --lantus 5 units (dose reduced from 10-12 units at home) #Hypothyroidism #BPH -continue home synthroid -- continue home tamsulosin #Routine Diet: NPO diet (Give Meds) DVT Prophylaxis: on heparin gtt GI Prophylaxis: na Code Status: Attempt Cardiopulmonary Resuscitation - Inpatient Dispo: Pending clinical course Venus Gonzales MD Internal Medicine, PGY-2 Cardiology, S2 04/15/23 7:58 AM Cardiology Attending Attestation/Addendum: Please see Venus Gonzales MD's note for details of the patient history and data. I have discussed, independently reviewed the pertinent diagnostic information, and agree with the principal findings as documented in the History, Physical Findings, Assessment and Plan of Care. The assessment and plan were formulated in discussion with me. ID & Pertinent History: Mr. Mosher is a 67 yo man who presented to OSH with chest pain, diaphoresis, shortness of breath.He has a PMHx sig for metastatic prostate cancer, cardiomyopathy (undifferentiated), CKD, DM2, bilateral hydronephrosis, hypothyroidism. He was found to have an NSTEMI (peak trop 5255). LVEF 29%, mode rate MR. CASAS demonstrated severe distal LM and oLAD stenosis, LEGAL EXECUTIVE ASSISTANT RCA, moderate oRPDA. Major Issues Addressed: ASCVD, multiple vessel disease Ischemic cardiomyopathy HFrEF Metastatic prostate cancer Assessment & Plan: Appreciate Oncology and CT surgery consults. Discussed with CT Surgery and patient; patient debating CABG vs. PCI. Pt wishes to discuss risk/benefits with Interventional Cardiology. Will make NPO p MN on Monday in case goes to lab on Monday. Continue aspirin and heparin. Hold clopidogrel. Sidney Maldonado MD, [facility] Staff [employer] * Sidney Maldonado MD - 04/15/2023 7:23 AM EST Images from the original note were not included. Inpatient Cardiology Progress Note Patient info: Name: Huber Mosher : 1955 PCP: JESSE Nesbitt PCP phone number: [phone] Date of Admission: 04/13/2023 ( Hospital Day 2 days ) Attending:Sidney Maldonado MD ID: Huber Mosher is a 67 y.o. male w/ PMH of CAD (per CT scan imaging), HFrEF, cardiomyopathy(stress vs ischemic), high risk prostate cancer with multiple mets to bones/lymph nodes,CKD, IDDM2,hypothyroidism who was transferred from [place] for NSTEMI. 24 Hour Events/Subjective: - LHC: 3 vessel coronary artery disease (LAD, LCX, and RCA) - ECHO: Mildy dilated LV with EF 29%. Moderate atrioventricular valve regurg. - NPO at midnight for possible procedure overnight/today. - Heme onc consulted ok with holding darolutamide. Overnight, Mr. Mosher reported lightheadedness overnight, but was resting comfortably when observed. No interventions made. He notes the lightheadedness began when he got up to urinate. He denies syncope, head trauma. The episode passed within minutes and he was able to rest comfortably the rest of the night. This morning he has had no recurrence of lightheadedness. He notes concerns about the CABG procedure as he does not know what it will entail. Denies headache, changes in vision, vertigo, chest pain, palpitations, SOB. Objective: Vitals Last value Range last 24 hrs Temperature Temp: 36.5 ??C (97.7 ??F) Temp: [36.4 ??C (97.6 ??F)-36.9 ??C (98.4 ??F)] Heart Rate Heart Rate: 70 Heart Rate: [67-89] Blood Pressure BP: 97/57 BP: (82-114)/(49-71) Art Line BP BP (Arterial Line): -- MAP (NBP): [60 mmHg-69 mmHg] Respiratory Rate Resp: 18 Resp: [6-20] SpO2 SpO2: 100 % SpO2: [97 %-100 %] Oxygen Delivery Oxygen Therapy O2 Device: None (Room air) Reason for Oxygen: Patient currently on room air Intake/Output Summary (Last 24 hours) at 04/15/2023 1047 Last data filed at 04/15/2023 0800 Gross per 24 hour Intake 510.33 ml Output 1851 ml Net -1340.67 ml Patient Vitals for the past 168 hrs: Weight 04/15/23 0311 83 kg (183 lb) 04/14/23 0652 85.6 kg (188 lb 11.4 oz) 04/13/23 1756 86 kg (189 lb 9.6 oz) Dry weight: 83 kg Physical Exam: Gen: in bed in NAD; alert, oriented, conversant HEENT: anicteric, EOMI intact, CV: RRR, no murmurs/gallops; possible friction rub. Resp: CTAB, no crackles/wheezes/ronchi, normal work of breathing Abd: normal bowel sounds, soft, non-tender to palpation, no rebound or guarding Ext: 2+ distal pulses, right lower extremity edema +2 pitting. Left lower extremity without edema. Neuro: no focal deficits noted, moves all extremities spontaneously Skin: no rashes, lesions, or ulcerations noted Lines/Drains/Airways: Implanted single lumen port Peripheral IV L. Basilic vein Labs: Recent Labs 04/15/23 0511 04/14/23 0040 04/13/232106 WBC 4.3 5.0 5.5 HGB 8.3* 8.6* 9.0* HCT 25.5* 25.3* 27.4* PLATELET 305 314 318 MCV 97.0* 94.4* 96.1* Recent Labs 04/15/23 0511 04/14/23 0040 04/13/232106 NA 137 134* 135 CL 104 103 102 CO2 23 21* 21* K 4.2 4.3 4.4 MAGNESIUM 0.88 0.89 0.86 PHOS 4.7* 3.8 3.7 CALCIUM 8.9 8.6 8.6 8.6 BUN 38* 41* 42* CREATININE 1.76* 1.71* 1.78* LFTs Recent Labs 04/13/232106 PROT 5.8* ALBUMIN 3.4 AST 27 ALT 10 ALKPHOS 53 BILITOT 0.3 BILIDIR 0.1 Cardiac Enzymes Recent Labs 04/13/232106 PROBNP 6,510* Endocrine Recent Labs 04/13/23 2107 09/30/22 0617 TSH 2.97 3.16 Recent Labs 04/15/23 0745 04/15/23 0318 04/15/23 0034 04/14/23 1913 04/14/23 1642 04/14/23 1141 04/14/23 0807 04/14/23 0356 04/14/23 0027 04/13/23 1914 POCGLU 163 149 179 153 146 143 181 148 184 146 Imaging: [facility]: Ao 94/40 mean 66 LV 99 EDP 25 Conclusions: * Three vessel coronary artery disease (LAD, LCX and RCA) * Elevated left ventricular end diastolic pressure * Severe calcified distal LM and ostial LAD stenosis * LEGAL EXECUTIVE ASSISTANT of the ostial LCx, this is a smaller vessel * Recommend heart team consult to consider PCI vs CABG. He may not be a good candidate for bypass given co-morbidities and targets. In this case would plan for staged PCI of LM-LAD with consideration of LEGAL EXECUTIVE ASSISTANT PCI of LCx. He had CKD and Cr limits further intervention today so we will stop and weight all the options. ECHO: Left ventricle is mildly dilated with severely reduced systolic function. There are regional wall motion abnormaltiies as ascribed. No LV thrombus. Right ventricle is normal in size and systolic function. PASP of 55 mmHg plus estimated RA pressure. IVC is non-dilated and non-plethoric. Moderate atri oventricular valve regurgitation. Compared to prior study dated 03/2023, there has been a decrement in EF (previously 46%), with more anterior distribution of regional wall motion abnormality. EF 29% Medications Scheduled: lidocaine 1 patch Transdermal Daily atorvastatin 40 mg Oral Daily cholecalciferol 1,000 Units Oral Daily levothyroxine 150 mcg Oral Daily tamsulosin 0.4 mg Oral Daily aspirin 81 mg Oral Daily insulin lispro 1-4 Units Subcutaneous Q4H SILVER insulin glargine (Lantus;Semglee) (100 unit/mL) subcutaneous injection 5 Units Subcutaneous Daily sodium chloride 0.9 % (flush) 5 mL Intravenous BID Continuous: heparin (porcine) infusion 1,150 Units/hr (04/15/23626) PRN: HYDROmorphone, acetaminophen, heparin (porcine) infusion AND heparin (porcine), glucose 40% oral geL OR dextrose OR glucagon, sodium chloride 0.9 % (flush), lidocaine, nitroGLYcerin,sodium chloride 0.9 % (flush) Assessment & Plan: Huber Mosher is a 67 y.o. male w/ PMH of CAD (per CT scan imaging), HFrEF, cardiomyopathy (stress vs ischemic), high risk prostate cancer with multiple mets to bones/lymph nodes,CKD, IDDM2, hypothyroidism who was transferred from [place] for NSTEMI was found to have 3 vessel disease confirmed by [facility]. [facility] cath showed multivessel disease in LAD, LCX, and RCA. Cath team recommended surgical consult todiscuss PCI vs CABG. Per Heme Onc, Mr. Mosher has a decent 5 year survival and as such would benefit from CABG. Per surgery, it is unlikely they could achieve full revascularization due to unprotected Left main disease. Will consider PCI with impella. If patient is agreeable to PCI, will load on p lavix for stent. Consider therapy or single pass soil stabilizer operator consult for increased anxiety surrounding diagnosis and possible procedures. #NSTEMI --Chest pain protocol: EKG prn chest pain, nitro prn chest pain --heparin gtt continued --ASA 81mg qd s/p load 324 --holding plavix given possibel CABG. --atorvastatin 40 qd --initiate BB if HR/BP allows --diurese with 40 lasix iv --formal TTE --possible CABG vs PCI pending surgery consult #Metastatic prostate cancer -hold darolutamide given cardiotoxicity until f/u with primary oncologist, per hem onc -prn tylenol -home tamsulosin #T2DM --Sensitive SSI --lantus 5 units (dose reduced from 10-12 units at home) #Hypothyroidism -continue home synthroid #Routine Diet: Daily Healthy Menu Choices/Cardiac diet ([facility]-Diet) DVT Prophylaxis: None Dispo: Pending clinical course Code Status: Attempt Cardiopulmonary Resuscitation - Inpatient Lisa Bernard, MS3 [facility] 04/15/23 10:47 AM * Elizabeth Sinclair PT - 04/14/2023 2:05 PM EST PT Note Physical Therapy referral received. Pt is mobilizing independently. He is walking with nursing and mobility tech around unit. No PT needs at this time. Elizabeth Sinclair PT Pager [phone] * Kade Balbuena MD - 04/14/2023 4:53 AM EST Images from the original note were not included. Formerly [facility] [place] [address] [place] [address] SAME DAY CARDIAC CATHETERIZATION LAB H&P ID: 67-year-old male with metastatic prostate cancer and unspecified cardiomyopathy who presents with acute onset substernal chest pressure, concerning ECG changes, and elevated troponin consistent with type I NSTEMI. He is being referred for coronary angiogram. Brief HPI: 67-year-old male with the above past medical history who presents with substernal chest pain. He reports sudden onset 8 out of 10 chest pain that radiated to his left arm. This was associated with diaphoresis and mild shortness of breath. He presented to the emergency room in [place]. Initial EKG noted below with borderline ST elevation in aVR with diffuse ST depressions concerning for global ischemia. Repeat EKG that is not scanned shows improvement of ST segments. He received nitroglycerin which unfortunately dropped his blood pressure. His baseline blood pressure seems to be 80-90 systolic. He received 150 mg of fentanyl in the emergency room with resolution of his chest pain. His trop uzair from 20-->129-->1845-->5255. Huber Mosher has no planned upcoming surgeries. No recent or ongoing bleeding events. No black stools. Physical Exam: BP 94/54 (BP Location (NBP): Left arm, Patient Position: Lying) Pulse 74 Temp 36.5 ??C (97.7 ??F) (Oral) Resp 18 Ht 179.1 cm (5' 10.5) Wt 86 kg (189 lb 9.6 oz) SpO2 100% BMI 26.82 kg/m?? Gen: Pleasant male in no apparent distress, able to lay flat. Cardiac: Regular rate, S1/S2 normal character and amplitude, no murmurs, rubs, or gallops. Pulm: Clear to auscultation bilaterally, no increased work of breathing. Ext: Palpable radial and femoral pulses bilaterally. Palpable DP pulses bilaterally. Neuro: Grossly normal neurologic exam without apparent focal deficit. ASA: 3: Patient with severe systemic disease Mallampati: III: only the base of the uvula can be seen Recent Labs: Recent CBC: Recent Labs 04/14/23 0040 04/13/23210612/27/22 1157 WBC 5.0 5.5 7.6 HGB 8.6* 9.0* 10.6* HCT 25.3* 27.4* 32.5* PLATELET 314 318 549* Recent BMP: Recent Labs 04/14/230 04/13/23210612/27/22 1157 NA 134* 135 134* K 4.3 4.4 5.1* CL 103 102 101 CO2 21* 21* 23 BUN 41* 42* 30* CREATININE 1.71* 1.78* 2.07* ECG: ECG (04/12/23): Sinus rhythm, 1mm LITO in aVR with diffuse STD ECG 12/20/22: Sinus rhythm, Borderline LITO in aVR with slight STD in lateral leads Previous cardiac diagnostic studies: TTE 09/2022: Wall thickness is normal. Left ventricular systolic function is severely reduced. The left ventricular ejection fraction is 27% by Burrell's biplane with sudheer and apical akinesis (see linked PDF). No LV clot seen. The RV is mildly dilated with probably normal systolic function. There is moderate to severe (3+) mitral regurgitation. There is moderate (2+) tricuspid regurgitation. The estimated right atrial pressure is 8mmHg. The peak right ventricular systolic pressure is 69 mmHg. Other details as noted below. No prior study available for comparison. TTE 12/20/22: Prior CT demonstrating significant LAD disease General consent statement: The indications, expected benefits, and potential risks of heart catheterization were reviewed in detail with the patient. The potential for , heart attack, stroke, kidney failure, hemorrhage, allergic reaction, vascular complications and infection were reviewed in detail. The possibility of stenting and other percutaneous intervention, with associated risk, was reviewed. The possible need for emergent coronary artery bypass surgery was reviewed. Alternatives were discussed and the patient's questions were answered in full. Following this discussion, the patient consented to the procedure and signed a form attesting to this, which is in the chart. Patient is full code. Plan: -no apparent contraindication to DAPT, patient denies upcoming or planned procedures/operations, and denies ongoing or recent bleeding events -proceed as planned -consent signed Kade Balbuena MD Radioisotope Technician 04/14/2023 documented in this encounter H&P Notes * Sidney Maldonado MD - 04/14/2023 12:10 AM EST Cardiology H&P Patient info: Name: Huber Mosher : 1955 PCP: JESSE Nesbitt (Inactive) PCP phone number: [phone] Date of Admission: 04/13/2023 ( Hospital Day 0 days ) Attending:Tha Winters MD ID: Huber Mosher is a 67 y.o. male w/ PMH CAD (per CT scan imaging), cardiomyopathy (stress vs ischemic), high risk prostate cancer with multiple mets to bones/lymph nodes,CKD, IDDM2, hypothyroidism, and bilateral hydronephrosis s/p stents who presents as a transfer from [place] for NSTEMI. Patient states he was in his normal state of health until 10 PM last night (Monday), when he developed sudden onset 8/10 left sided chest pain with radiation into his shoulder. He had associated shortness of breath but denied any diaphoresis, lightheadedness, dizziness, nausea, or syncope. He presented to [place] where initial EKG showed borderline LITO in aVR and diffuse ST depressions. Repeat EKG demonstrated improvement of ST changes. Troponin 20-->129-->1845-->5255. He receivednitroglycerin which dropped his SBP to ~80s. He subsequently received fentanyl 150 with complete resolution of his pain. CT PE without evidence of PE but showed known blastic bone mets. CT head without evidence of mets. Patient was aspirin loaded and started on a heparin drip. Transferred to [facility] for further care. On arrival, patient is HDS. He denies recurrence of chest pain since receiving fentanyl. He additionally denies lightheadedness, headaches, dizziness, shortness of breath, orthopnea, PND, palpitations, abdominal pain, constipation, or diarrhea. He endorses changes in his exercise tolerance, statingthat over the past several months, he sometimes gets chest pain with exertion that resolves with rest. He also endorses significant unilateral right LE swelling. He previously took lasix without improvement so this was recently discontinued. Of note, patient was diagnosed with high risk prostate cancer last September and now s/p three cycles ofdocetaxel (last cycle ~3 weeks ago); continuing on darolutamide 300 mg BID. During his hospitalization last September, he was found to have new LV systolic dysfunction (EF 27%). A recent echo on 03/29 at [place] showed an EF 46% with regional WMA. ROS: Per HPI. PMH PSH Allergies: Home Medications: Current Outpatient Medications Medication Instructions acetaminophen (TYLENOL) 650 mg, Oral, 3 TIMES DAILY atorvastatin (LIPITOR) 40 mg, Oral, DAILY cholecalciferol (VITAMIN D3) 1,000 Units, Oral, DAILY darolutamide (NUBEQA) 600 mg, Oral, 2 TIMES DAILY, Call clinic before starting medication HYDROcodone-acetaminophen ([place]) 5-325 mg tablet 1 tablet, Oral, EVERY 6 HOURS PRN Lantus Solostar U-100 Insulin 8 Units, Subcutaneous, DAILY levothyroxine (SYNTHROID) 150 mcg, Oral, DAILY tamsulosin (FLOMAX) 0.4 mg, Oral, DAILY Family History: Social History -Lives alone -No alcohol -Never smoker Objective: Vitals BP 106/64 (BP Location (NBP): Right arm, Patient Position: Sitting) Pulse 76 Temp 36.9 ??C (98.4 ??F) (Oral) Resp 16 Ht 179.1 cm (5' 10.5) Wt 86 kg (189 lb 9.6 oz) SpO2 100% BMI 26.82 kg/m?? Physical Exam: Gen: NAD CV: RRR, no murmurs/rubs/gallops Resp: CTAB, NWOB Abd: Soft, NT, no peritoneal signs Ext: Extensive 3-4+ RLE edema; trace LE edema Neuro: no focal deficits noted Labs: Recent Labs 04/13/232106 WBC 5.5 HGB 9.0* HCT 27.4* PLATELET 318 MCV 96.1* Recent Labs 04/13/232106 NA 135 CL 102 CO2 21* K 4.4 MAGNESIUM 0.86 PHOS 3.7 CALCIUM 8.6 8.6 BUN 42* CREATININE 1.78* LFTs Recent Labs 04/13/232106 PROT 5.8* ALBUMIN 3.4 AST 27 ALT 10 ALKPHOS 53 BILITOT 0.3 BILIDIR 0.1 Coags No results for input(s): INR, PT, PTT, FIBRINOGEN, DDIMER in the last 168 hours. Invalid input(s): THROMBIN TIME Cardiac Enzymes Recent Labs 04/13/232106 PROBNP 6,510* Endocrine Recent Labs 04/13/23210609/30/22 0617 TSH 2.97 3.16 Recent Labs 04/13/23 1914 POCGLU 146 Heme No results for input(s): LDH, HAPTOGLOBIN, URICACID in the last 168 hours. ABG (Arterial Blood Gas) No results found for: PHART, PO2ART, ICK0WVK, [id number] Microbiology: Imaging/Diagnostics: Assessment & Plan: Huber Mosher is a 67 y.o. male w/ PMH CAD (per CT scan imaging), cardiomyopathy (stress vs ischemic), high risk prostate cancer with multiple mets to bones/lymph nodes,CKD, IDDM2, hypothyroidism, and bilateral hydronephrosis s/p stents who presents as a transfer from [place] for NSTEMI. Given his high bleeding risk in the setting of metastatic prostate cancer, CT brain was obtained torule out mets prior to heparin initiation. No evidence of mets seen. Continuing heparin gtt and aspirin. Will hold off on plavix given history of IDDM2 and concern for MVD. Will plan for catheterization in the morning; patient aware that there is increased risk of HD with contrast in the setting ofhis CKD. Patient does notably have extensive LE edema in his RLE, likely secondary to mets to his lymph nodes and outflow obstruction. Has previously tried lasix without relief; declines IV lasix at this time. Currently on darolutamide 300 mg BID, but after discussion with pharmacy this does have cardiotoxicity with cases of grade 3 and grade 4 events. Will plan to touch base with oncology for further guidance. #NSTEMI --Chest pain protocol: EKG prn chest pain, nitro prn chest pain --heparin gtt per ACS protocol --ASA 81mg qd s/p load 324 --holding plavix given concern for MVD --atorvastatin 40 --initiate BB if HR/BP allows -formal TTE Cardiac Risk Stratification --HbA1c --TSH --Lipids #Metastatic prostate cancer -hold darolutamide given cardiotoxicity -touch base with oncology -prn tylenol -home tamsulosin #T2DM --Sensitive SSI --lantus 5 units (dose reduced from 10-12 units at home) #Hypothyroidism -continue home synthroid #Routine Diet: Daily Healthy Menu Choices/Cardiac diet ([facility]-Diet) NPO diet (Give Meds) DVT Prophylaxis: None Dispo: Pending clinical course Code Status: Attempt Cardiopulmonary Resuscitation - Inpatient Milli Maria MD Internal Medicine 04/13/23 10:39 PM Cardiology Attending Attestation/Addendum: Please see Milli Maria MD's note for details of the patient history and data. I have discussed,independently reviewed the pertinent diagnostic information, and agree with the principal findings as documented in the History, Physical Findings, Assessment and Plan of Care. The assessment and plan were formulated in discussion with me. 67 y man with metastatic prostate cancer who developed chest pain. NSTEMI, type 1. Moderate to severely reduced LVEF on echo with LCX wall motion abnormalities. Moderate MR. Underwent LHC today that demonstrated multi vessel disease including distal LM, ostial LAD severe stenosis, LEGAL EXECUTIVE ASSISTANT of Lcx and severe stenosis of oRPDA. CT Surgery consulted - discussed with Dr. Rodgers, who will assess patient.Heparin gtt while awaiting revascularization. Diurese given elevated LVEDP. Aspirin, statin. Will slowly titrate GDMT. Sidney Maldoando MD, [facility] Staff Sandblaster [employer] documented in this encounter Miscellaneous Notes * Plan of Care - Ashleigh Babcock RN - 04/19/2023 2:15 PM EST AVS reviewed with patient. Questions answered. PIV removed per policy. Port deaccessed by IV team per order. Belongings returned to patient. VSS. Patient discharged to entrance 2 per policy. Home medication returned to patient. Problem: Adult Inpatient Plan of Care Goal: Plan of Care Review 04/19/2023 132 by Ashleigh Babcock RN Outcome: Outcome (s) achieved 04/19/2023 0950 by Ashleigh Babcock RN Outcome: Ongoing (Interventions Implemented as Appropriate) Goal: Patient-Specific Goal (Individualized) 04/19/2023 132 by Ashleigh Babcock RN Outcome: Outcome (s) achieved 04/19/2023 0950 by Ashleigh Babcock RN Outcome: Ongoing (Interventions Implemented as Appropriate) Goal: Absence of Hospital-Acquired Illness or Injury 04/19/2023 132 by Ashleigh Babcock RN Outcome: Outcome (s) achieved 04/19/2023 0950 by Ashleigh Babcock RN Outcome: Ongoing (Interventions Implemented as Appropriate) Goal: Optimal Comfort and Wellbeing 04/19/2023 132 by Ashleigh Babcock RN Outcome: Outcome (s) achieved 04/19/2023 0950 by Ashleigh Babcock RN Outcome: Ongoing (Interventions Implemented as Appropriate) Goal: Readiness for Transition of Care 04/19/20231321 by Ashleigh Babcock RN Outcome: Outcome (s) achieved 04/19/2023 0950 by Ashleigh Babcock RN Outcome: Ongoing (Interventions Implemented as Appropriate) Problem: Chest Pain Goal: Resolution of Chest Pain Symptoms 04/19/2023 132 by Ashleigh Babcock RN Outcome: Outcome (s) achieved 04/19/2023 0950 by Ashleigh Babcock RN Outcome: Ongoing (Interventions Implemented as Appropriate) Problem: Arrhythmia/Dysrhythmia (Cardiac Catheterization) Goal: Stable Heart Rate and Rhythm 04/19/20231321 by Ashleigh Babcock RN Outcome: Outcome (s) achieved 04/19/2023 0950 by Ashleigh Babcock RN Outcome: Ongoing (Interventions Implemented as Appropriate) Problem: Bleeding (Cardiac Catheterization) Goal: Absence of Bleeding 04/19/20231321 by Ashleigh Babcock RN Outcome: Outcome (s) achieved 04/19/2023 0950 by Ashleigh Babcock RN Outcome: Ongoing (Interventions Implemented as Appropriate) Problem: Contrast-Induced Injury Risk (Cardiac Catheterization) Goal: Absence of Contrast-Induced Injury 04/19/2023 1322 by Ashleigh Babcock RN Outcome: Outcome (s) achieved 04/19/2023 0950 by Ashleigh Babcock RN Outcome: Ongoing (Interventions Implemented as Appropriate) Problem: Embolism (Cardiac Catheterization) Goal: Absence of Embolism Signs and Symptoms 04/19/2023 1322 by Ashleigh Babcock RN Outcome: Outcome (s) achieved 04/19/2023 0950 by Ashleigh Babcock RN Outcome: Ongoing (Interventions Implemented as Appropriate) Problem: Ongoing Anesthesia/Sedation Effects (Cardiac Catheterization) Goal: Anesthesia/Sedation Recovery 04/19/2023 1322 by Ashleigh Babcock RN Outcome: Outcome (s) achieved 04/19/2023 0950 by Ashleigh Babcock RN Outcome: Ongoing (Interventions Implemented as Appropriate) Problem: Pain (Cardiac Catheterization) Goal: Acceptable Pain Control 04/19/2023 1322 by Ashleigh Babcock RN Outcome: Outcome (s) achieved 04/19/2023 0950 by Ashleigh Babcock RN Outcome: Ongoing (Interventions Implemented as Appropriate) Problem: Vascular Access Protection (Cardiac Catheterization) Goal: Absence of Vascular Access Complication 04/19/2023 1322 by Ashleigh Babcock RN Outcome: Outcome (s) achieved 04/19/2023 0950 by Ashleigh Babcock RN Outcome: Ongoing (Interventions Implemented as Appropriate) * Consult Note - Kathleen Wilcox RN - 04/19/2023 12:23 PM EST Cardiac Rehabilitation Inpatient Evaluation Primary Cardiac Diagnosis: NSTEMI, s/p PCI Cardiac Risk Factors: Smoking: mo Overweight: no Hyperlipidemia: yes Sedentary: no HTN: no Family history: yes DM: yes Stress: yes ( having chemo for prostate CA) Patient Education: Reviewed cardiac cath findings, implications of coronary artery disease, managing angina and risk factor modification. Reviewed managing angina /use of sl nitroglycerin. Mediterranean diet guidelines briefly reviewed. Given parameters for home exercise. Phase II Referral: Participation in the outpatient cardiac rehabilitation program at [facility] was discussed. Patient agrees to a referral to this program. The referral will be sent at discharge and the patient should be contacted by the Program within 1- 2 weeks from discharge. Activity Summary: By discharge, patient will be able to perform self care, walk 5-7 minutes and go up and down stairs without signs or symptoms of ischemia. Activity Baseline Response 3-4 min walk HR 70 97 BP 96/59 119/63 O2 Sat RA 99 RA 98 ECG NSR NSR Symptoms/Comments: Pt tolerated activity well. Completed a modified walk given that pt is coming back for staged PCI next week. Denied any s/s of angina * Plan of Care - Lesvia Torres RN - 04/18/2023 5:01 PM EST OUTCOME EVALUATION NOTE: OUTCOME SUMMARY: Uneventful shift. Patient A&Ox4. No complaints of CP/SOB . NSR/SB on tele, HR ranging from 60's-80's; see scanned docs. O2 sat WDL, satting from 100 on RA . Ambulated indepently within room. Pt went to cath, has a right groin site, C/D/I. Bed rest orders up at 1630, patient walked and in chair.See flowsheet for I+O's and safety rounding. Patient is able to make needs known and call molina within reach. PLAN MOVING FORWARD: Monitor Tele, Improve activity tolerance, pain management, D/C Planning, return in a week for outpatient cath INDIVIDUALIZED FALL PREVENTION INTERVENTIONS: Patient-specific fall risk factors per assessment: [current deficits]: Unfamiliar surroundings, IV lines, EKG Wires Assistance [level of assistance required for transfers and ambulation]: Independent Supervision [direct monitoring required during toileting and ADLs]: Independent Surveillance [continuous indirect monitoring]: Continuous Telemetry, Pulse Oxygen Probe Patient-specific fall prevention interventions for sensory deficits provided, if applicable: Purposeful Rounding, Hourly Rounding, Non-skid shoes or socks when OOB, Use of Assistance Devices, Call Molina Within Reach, Room Near Nurses Station, Door Open, Light Adjusted for Specific Tasks, Person Items Within Reach, Bed in Lowest and Locked Position CARE PLAN GOAL OUTCOME EVALUATION: Problem: Adult Inpatient Plan of Care Goal: Plan of Care Review Outcome: Ongoing (Interventions Implemented as Appropriate) Goal: Patient-Specific Goal (Individualized) Outcome: Ongoing (Interventions Implemented as Appropriate) Goal: Absence of Hospital-Acquired Illness or Injury Outcome: Ongoing (Interventions Implemented as Appropriate) Goal: Optimal Comfort and Wellbeing Outcome: Ongoing (Interventions Implemented as Appropriate) Goal: Readiness for Transition of Care Outcome: Ongoing (Interventions Implemented as Appropriate) Problem: Chest Pain Goal: Resolution of Chest Pain Symptoms Outcome: Ongoing (Interventions Implemented as Appropriate) Problem: Arrhythmia/Dysrhythmia (Cardiac Catheterization) Goal: Stable Heart Rate and Rhythm Outcome: Ongoing (Interventions Implemented as Appropriate) Problem: Bleeding (Cardiac Catheterization) Goal: Absence of Bleeding Outcome: Ongoing (Interventions Implemented as Appropriate) Problem: Contrast-Induced Injury Risk (Cardiac Catheterization) Goal: Absence of Contrast-Induced Injury Outcome: Ongoing (Interventions Implemented as Appropriate) Problem: Embolism (Cardiac Catheterization) Goal: Absence of Embolism Signs and Symptoms Outcome: Ongoing (Interventions Implemented as Appropriate) Problem: Ongoing Anesthesia/Sedation Effects (Cardiac Catheterization) Goal: Anesthesia/Sedation Recovery Outcome: Ongoing (Interventions Implemented as Appropriate) Problem: Pain (Cardiac Catheterization) Goal: Acceptable Pain Control Outcome: Ongoing (Interventions Implemented as Appropriate) Problem: Vascular Access Protection (Cardiac Catheterization) Goal: Absence of Vascular Access Complication Outcome: Ongoing (Interventions Implemented as Appropriate) * Brief Op Note - Puma Hernandez MD - 04/18/2023 2:25 PM EST Images from the original note were not included. Brief Operative Note Patient Name: Huber Mosher : [id number] MR#: [id number] Case Date: 04/18/2023 Surgeon: Surgeon(s) and Role: * Citlalli Esposito MD - Primary * Puma Hernandez MD - Fellow - Assisting Preoperative diagnosis: NSTEMI Postoperative diagnosis: NSTEMI Preliminary Cardiac Catheterization Procedure Note: Procedure(s) performed: Right Femoral Vein Access - 6 Stevens Right Femoral Access ultrasound guided - 7 Stevens --> Perclose Coronary Angiography Right Heart Cath IVUS PCI-Stent Preliminary findings: Femoral Angio: Insertion site in the mid common femoral artery Coronary Angiography: Anatomically normal right dominant circulation LMCA: 80% distal LM disease LAD: 80% ostial LAD, 80% mid LAD, 80% distal LAD, 70% ostial D1 LCx: 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 - Normal cardiac index (3.2) and low filling pressures. - Recommend staged revascularization of the distal LAD lesions. Discussed with patient and can be scheduled as soon as next week as an outpatient which I have requested with scheduling. - The patient tolerated the procedure well and was transferred from the cardiac catheterization labin stable condition without apparent complications. Full report to follow. * Plan of Care - Aide Jenkins RN - 04/18/2023 7:05 AM EST Blood completed yesterday 1949 without reaction. NPO as from midnight for cath today. Problem: Adult Inpatient Plan of Care Goal: Plan of Care Review Outcome: Ongoing (Interventions Implemented as Appropriate) Goal: Patient-Specific Goal (Individualized) Outcome: Ongoing (Interventions Implemented as Appropriate) Goal: Absence of Hospital-Acquired Illness or Injury Outcome: Ongoing (Interventions Implemented as Appropriate) Goal: Optimal Comfort and Wellbeing Outcome: Ongoing (Interventions Implemented as Appropriate) Goal: Readiness for Transition of Care Outcome: Ongoing (Interventions Implemented as Appropriate) * Plan of Care - Alisa Garcia RN - 04/17/2023 12:03 PM EST OUTCOME EVALUATION NOTE: OUTCOME SUMMARY: Assumed care at 0700. A&Ox4. VSS on RA. Denies CP, palpitations, dizziness. Ambulating around unit. Hep gtt infusing and therapeutic. Transfusing 1 unit RBC's this evening. Frequent rounding for comfort and safety, call light within reach. 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 GOAL OUTCOME EVALUATION: Problem: Adult Inpatient Plan of Care Goal: Plan of Care Review Outcome: Ongoing (Interventions Implemented as Appropriate) Goal: Patient-Specific Goal (Individualized) Outcome: Ongoing (Interventions Implemented as Appropriate) Goal: Absence of Hospital-Acquired Illness or Injury Outcome: Ongoing (Interventions Implemented as Appropriate) Goal: Optimal Comfort and Wellbeing Outcome: Ongoing (Interventions Implemented as Appropriate) Goal: Readiness for Transition of Care Outcome: Ongoing (Interventions Implemented as Appropriate) Problem: Chest Pain Goal: Resolution of Chest Pain Symptoms Outcome: Ongoing (Interventions Implemented as Appropriate) Problem: Arrhythmia/Dysrhythmia (Cardiac Catheterization) Goal: Stable Heart Rate and Rhythm Outcome: Ongoing (Interventions Implemented as Appropriate) Problem: Bleeding (Cardiac Catheterization) Goal: Absence of Bleeding Outcome: Ongoing (Interventions Implemented as Appropriate) Problem: Contrast-Induced Injury Risk (Cardiac Catheterization) Goal: Absence of Contrast-Induced Injury Outcome: Ongoing (Interventions Implemented as Appropriate) Problem: Embolism (Cardiac Catheterization) Goal: Absence of Embolism Signs and Symptoms Outcome: Ongoing (Interventions Implemented as Appropriate) Problem: Ongoing Anesthesia/Sedation Effects (Cardiac Catheterization) Goal: Anesthesia/Sedation Recovery Outcome: Ongoing (Interventions Implemented as Appropriate) Problem: Pain (Cardiac Catheterization) Goal: Acceptable Pain Control Outcome: Ongoing (Interventions Implemented as Appropriate) Problem: Vascular Access Protection (Cardiac Catheterization) Goal: Absence of Vascular Access Complication Outcome: Ongoing (Interventions Implemented as Appropriate) * Care Management - Mari Snow RN - 04/17/2023 10:01 AM EST OFFICE OF CARE MANAGEMENT PROGRESS NOTE LOS: Hospital Day 4 days Chart reviewed, care reviewed with primary team and at interdisciplinary rounds. Patient continues to meet inpatient level of care related to: CAD with PCI vs CABG need . Team to review today . Will likely need rehab if CABG route. Decision Maker: Self Functional status prior to admission: Independent Home Environment: Others in the home: alone. Current Living Arrangements: home/apartment/condo. Accessibility Concerns: lives in the firs level of apartment buliding, no LITO. Current Functional Ability: Independent DME used at home: none DME Needed at Discharge: No Patient is insured through: Primary Insurance: MEDICARE Payor: MEDICARE / Plan: MEDICARE PART A & B / Product Type: *No Product type* / Secondary Insurance: AARP SUPPLEMENT Plan for discharge is: Home w/o Services Outpatient Agency/Support Group Needs: None Agency Referrals: Will need referral pending decision pathway . CM to watch for chosen pathway and PT /OT recommendations. Transportation: family or friend will provide/ Sister is flying in to be with patient Barriers to discharge: Discharge planning Plan going forward: Care Management will continue to follow and assist with discharge planning and coordination of care as indicated. Anticipated Date of Discharge: 04/24/2023 Office of Care Management Surgery Team Cnc Supervisor [email or web address] Pager #[phone] * Plan of Care - Aide Jenkins RN - 04/17/2023 2:18 AM EST On heparin, UFH remains therapeutic. NPO as from midnight for possible cath today. Right leg still swollen, denies chest pains. Problem: Adult Inpatient Plan of Care Goal: Plan of Care Review Outcome: Ongoing (Interventions Implemented as Appropriate) Goal: Patient-Specific Goal (Individualized) Outcome: Ongoing (Interventions Implemented as Appropriate) Goal: Absence of Hospital-Acquired Illness or Injury Outcome: Ongoing (Interventions Implemented as Appropriate) Goal: Optimal Comfort and Wellbeing Outcome: Ongoing (Interventions Implemented as Appropriate) Goal: Readiness for Transition of Care Outcome: Ongoing (Interventions Implemented as Appropriate) * Plan of Care - Alisa Garcia RN - 04/16/2023 12:29 PM EST OUTCOME EVALUATION NOTE: OUTCOME SUMMARY: Assumed care of Bill at 0700. A&Ox4. VSS on RA. NSR on tele. Denies CP, SOB, dizziness, palpitations. Ambulating ad naye around unit. Friends visiting in afternoon. +BM this evening. Hep gtt infusing. Frequent rounding for comfort and safety, call light within reach. PLAN MOVING FORWARD: NPO @ midnight for cath CPG GOAL OUTCOME EVALUATION: Problem: Adult Inpatient Plan of Care Goal: Plan of Care Review Outcome: Ongoing (Interventions Implemented as Appropriate) Goal: Patient-Specific Goal (Individualized) Outcome: Ongoing (Interventions Implemented as Appropriate) Goal: Absence of Hospital-Acquired Illness or Injury Outcome: Ongoing (Interventions Implemented as Appropriate) Goal: Optimal Comfort and Wellbeing Outcome: Ongoing (Interventions Implemented as Appropriate) Goal: Readiness for Transition of Care Outcome: Ongoing (Interventions Implemented as Appropriate) Problem: Chest Pain Goal: Resolution of Chest Pain Symptoms Outcome: Ongoing (Interventions Implemented as Appropriate) Problem: Arrhythmia/Dysrhythmia (Cardiac Catheterization) Goal: Stable Heart Rate and Rhythm Outcome: Ongoing (Interventions Implemented as Appropriate) Problem: Bleeding (Cardiac Catheterization) Goal: Absence of Bleeding Outcome: Ongoing (Interventions Implemented as Appropriate) Problem: Contrast-Induced Injury Risk (Cardiac Catheterization) Goal: Absence of Contrast-Induced Injury Outcome: Ongoing (Interventions Implemented as Appropriate) Problem: Embolism (Cardiac Catheterization) Goal: Absence of Embolism Signs and Symptoms Outcome: Ongoing (Interventions Implemented as Appropriate) Problem: Ongoing Anesthesia/Sedation Effects (Cardiac Catheterization) Goal: Anesthesia/Sedation Recovery Outcome: Ongoing (Interventions Implemented as Appropriate) Problem: Pain (Cardiac Catheterization) Goal: Acceptable Pain Control Outcome: Ongoing (Interventions Implemented as Appropriate) Problem: Vascular Access Protection (Cardiac Catheterization) Goal: Absence of Vascular Access Complication Outcome: Ongoing (Interventions Implemented as Appropriate) * Plan of Care - Estefani Crowder RN - 04/16/2023 6:03 AM EST SR w/ ST depression on tele. VSS. Denies any CP/discomfort. Heparin gtt infusing. Problem: Adult Inpatient Plan of Care Goal: Plan of Care Review Outcome: Ongoing (Interventions Implemented as Appropriate) Goal: Patient-Specific Goal (Individualized) Outcome: Ongoing (Interventions Implemented as Appropriate) Goal: Absence of Hospital-Acquired Illness or Injury Outcome: Ongoing (Interventions Implemented as Appropriate) Goal: Optimal Comfort and Wellbeing Outcome: Ongoing (Interventions Implemented as Appropriate) Goal: Readiness for Transition of Care Outcome: Ongoing (Interventions Implemented as Appropriate) Problem: Chest Pain Goal: Resolution of Chest Pain Symptoms Outcome: Ongoing (Interventions Implemented as Appropriate) Problem: Arrhythmia/Dysrhythmia (Cardiac Catheterization) Goal: Stable Heart Rate and Rhythm Outcome: Ongoing (Interventions Implemented as Appropriate) Problem: Bleeding (Cardiac Catheterization) Goal: Absence of Bleeding Outcome: Ongoing (Interventions Implemented as Appropriate) Problem: Contrast-Induced Injury Risk (Cardiac Catheterization) Goal: Absence of Contrast-Induced Injury Outcome: Ongoing (Interventions Implemented as Appropriate) Problem: Embolism (Cardiac Catheterization) Goal: Absence of Embolism Signs and Symptoms Outcome: Ongoing (Interventions Implemented as Appropriate) Problem: Ongoing Anesthesia/Sedation Effects (Cardiac Catheterization) Goal: Anesthesia/Sedation Recovery Outcome: Ongoing (Interventions Implemented as Appropriate) Problem: Pain (Cardiac Catheterization) Goal: Acceptable Pain Control Outcome: Ongoing (Interventions Implemented as Appropriate) Problem: Vascular Access Protection (Cardiac Catheterization) Goal: Absence of Vascular Access Complication Outcome: Ongoing (Interventions Implemented as Appropriate) * Plan of Care - Alisa Garcia RN - 04/15/2023 1:39 PM EST OUTCOME EVALUATION NOTE: OUTCOME SUMMARY: Assumed care of Bill at 0700. A&Ox4. VSS on RA. NSR on tele. Pt is pleasant but anxious. DeniesCP, dizziness, and SOB. Hep gtt continues, therapeutic x2. Independent in room. Walked around unit ad naye. Had a friend visit today. Frequent rounding for comfort and safety, non-skid socks when OOB,call light with in reach. PLAN MOVING FORWARD: Continue to monitor per protocol D/c planning as appropriate CPG GOAL OUTCOME EVALUATION: Problem: Adult Inpatient Plan of Care Goal: Plan of Care Review 04/15/20231338 by Alisa Garcia RN Outcome: Ongoing (Interventions Implemented as Appropriate) 04/15/20231338 by Alisa Garcia RN Outcome: Ongoing (Interventions Implemented as Appropriate) Goal: Patient-Specific Goal (Individualized) 04/15/20231338 by Alisa Garcia RN Outcome: Ongoing (Interventions Implemented as Appropriate) 04/15/20231338 by Alisa Garcia RN Outcome: Ongoing (Interventions Implemented as Appropriate) Goal: Absence of Hospital-Acquired Illness or Injury 04/15/2023 1339 by Alisa Garcia RN Outcome: Ongoing (Interventions Implemented as Appropriate) 04/15/2023 1339 by Alisa Garcia RN Outcome: Ongoing (Interventions Implemented as Appropriate) Goal: Optimal Comfort and Wellbeing 04/15/2023 1339 by Alisa Garcia RN Outcome: Ongoing (Interventions Implemented as Appropriate) 04/15/2023 1339 by Alisa Garcia RN Outcome: Ongoing (Interventions Implemented as Appropriate) Goal: Readiness for Transition of Care 04/15/2023 1339 by Alisa Garcia RN Outcome: Ongoing (Interventions Implemented as Appropriate) 04/15/2023 1339 by Alisa Garcia RN Outcome: Ongoing (Interventions Implemented as Appropriate) Problem: Chest Pain Goal: Resolution of Chest Pain Symptoms 04/15/2023 1339 by Alisa aGrcia RN Outcome: Ongoing (Interventions Implemented as Appropriate) 04/15/2023 1339 by Alisa Garcia RN Outcome: Ongoing (Interventions Implemented as Appropriate) Problem: Arrhythmia/Dysrhythmia (Cardiac Catheterization) Goal: Stable Heart Rate and Rhythm 04/15/2023 1339 by Alisa Garcia RN Outcome: Ongoing (Interventions Implemented as Appropriate) 04/15/20231338 by Alisa Garcia RN Outcome: Ongoing (Interventions Implemented as Appropriate) Problem: Bleeding (Cardiac Catheterization) Goal: Absence of Bleeding 04/15/2023 1339 by Alisa Garcia RN Outcome: Ongoing (Interventions Implemented as Appropriate) 04/15/2023 1339 by Alisa Garcia RN Outcome: Ongoing (Interventions Implemented as Appropriate) Problem: Contrast-Induced Injury Risk (Cardiac Catheterization) Goal: Absence of Contrast-Induced Injury 04/15/2023 1339 by Alisa Garcia RN Outcome: Ongoing (Interventions Implemented as Appropriate) 04/15/2023 133 by Alisa Garcia RN Outcome: Ongoing (Interventions Implemented as Appropriate) Problem: Embolism (Cardiac Catheterization) Goal: Absence of Embolism Signs and Symptoms 04/15/2023 1339 by Alisa Garcia RN Outcome: Ongoing (Interventions Implemented as Appropriate) 04/15/202312/2023 by Alisa Garcia RN Outcome: Ongoing (Interventions Implemented as Appropriate) Problem: Ongoing Anesthesia/Sedation Effects (Cardiac Catheterization) Goal: Anesthesia/Sedation Recovery 04/15/20231338 by Alisa Garcia RN Outcome: Ongoing (Interventions Implemented as Appropriate) 04/15/20231338 by Alisa Garcia RN Outcome: Ongoing (Interventions Implemented as Appropriate) Problem: Pain (Cardiac Catheterization) Goal: Acceptable Pain Control 04/15/20231338 by Alisa Garcia RN Outcome: Ongoing (Interventions Implemented as Appropriate) 04/15/20231338 by Alisa Garcia RN Outcome: Ongoing (Interventions Implemented as Appropriate) Problem: Vascular Access Protection (Cardiac Catheterization) Goal: Absence of Vascular Access Complication 04/15/20231338 by Alisa Garcia RN Outcome: Ongoing (Interventions Implemented as Appropriate) 04/15/20231338 by Alisa Garcia RN Outcome: Ongoing (Interventions Implemented as Appropriate) * Consult Note - Colby Rodgers MD - 04/15/2023 10:46 AM EST 67 yo male being treated for widely metastatic prostate cancer. ECHO in September showed LVEF about 25%.HE has a history of some exertional chest pain a couple of years ago. Through CHEMO cycles LVEF varied. HE presents now with episode of chest pain and bump in troponin. ECHO shows LVEF 25%, moderate functional MR. Cath shows LM stenosis, serial LAD disease, occluded LCX with no visible target vessel. His creatinine is elevated at 1.8 with bilateral hydronephrosis. He has bony mets and lymph node mets with his prostate cancer. 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 Never , no children. HE has a sister who is flyingto see him. He currently live alone. 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 We had a long discussion about options of medical therapy alone, Complex PCI and CABG surgery. I don't think any of these options will be able to revascularize the lateral wall. CABG benefit is then limited, particularly since there is distal disease in the LAD which would orphan the the apical segment. HE has no contra- indication to CABG. But his cabg risk is high and recovery would be difficult given his social situation. HE will think about our discussion over this weekend. * Plan of Care - Estefani Crowder RN - 04/15/2023 6:37 AM EST 2300- Heparin gtt restarted 4 hrs post TR band was removed. Right radial site- CDI; CSM- intact. 0220 - Patient c/o heavy breathing, slight lightheadedness at rest but denies any chest pain nor discomfort. VSS- 100% on RA. Lungs CTA. SR on tele. Provider notified; checked patient @ bedside. 0400- Patient endorsed above symptoms subsided. Closely monitored. Call light within reach. Purposeful rounding done. Problem: Adult Inpatient Plan of Care Goal: Plan of Care Review Outcome: Ongoing (Interventions Implemented as Appropriate) Goal: Patient-Specific Goal (Individualized) Outcome: Ongoing (Interventions Implemented as Appropriate) Goal: Absence of Hospital-Acquired Illness or Injury Outcome: Ongoing (Interventions Implemented as Appropriate) Goal: Optimal Comfort and Wellbeing Outcome: Ongoing (Interventions Implemented as Appropriate) Goal: Readiness for Transition of Care Outcome: Ongoing (Interventions Implemented as Appropriate) Problem: Chest Pain Goal: Resolution of Chest Pain Symptoms Outcome: Ongoing (Interventions Implemented as Appropriate) Problem: Arrhythmia/Dysrhythmia (Cardiac Catheterization) Goal: Stable Heart Rate and Rhythm Outcome: Ongoing (Interventions Implemented as Appropriate) Problem: Bleeding (Cardiac Catheterization) Goal: Absence of Bleeding Outcome: Ongoing (Interventions Implemented as Appropriate) Problem: Contrast-Induced Injury Risk (Cardiac Catheterization) Goal: Absence of Contrast-Induced Injury Outcome: Ongoing (Interventions Implemented as Appropriate) Problem: Embolism (Cardiac Catheterization) Goal: Absence of Embolism Signs and Symptoms Outcome: Ongoing (Interventions Implemented as Appropriate) Problem: Ongoing Anesthesia/Sedation Effects (Cardiac Catheterization) Goal: Anesthesia/Sedation Recovery Outcome: Ongoing (Interventions Implemented as Appropriate) Problem: Pain (Cardiac Catheterization) Goal: Acceptable Pain Control Outcome: Ongoing (Interventions Implemented as Appropriate) Problem: Vascular Access Protection (Cardiac Catheterization) Goal: Absence of Vascular Access Complication Outcome: Ongoing (Interventions Implemented as Appropriate) * Plan of Care - Demetrius Begum RN - 04/14/2023 6:05 PM EST SHIFT EVALUATION NOTE: SHIFT SUMMARY: Pt AOx4. VSS on RA, assessment as charted. Pt denies CP or SOB. NSR on tele, see scanned documents.See flowsheets for I&O. Bedside echo in AM. Cardiac cath in afternoon, MVD found. Right radial site CDI, no bleeding or hematoma. Uneventful shift for pt, call molina within reach. PLAN MOVING FORWARD: Continue to monitor per protocol Discharge planning as appropriate INDIVIDUALIZED FALL PREVENTION INTERVENTIONS: Patient-specific fall risk factors per assessment: [current deficits]: Limited mobility, tele wires, SpO2 monitor wire, unfamiliar environment Assistance [level of assistance required for transfers and ambulation]: Independent Supervision [direct monitoring required during toileting and ADLs]: Independent Surveillance [continuous indirect monitoring]: Telemetry, continuous pulse oximetry Patient-specific fall prevention interventions for sensory deficits provided, if applicable: Lighting adjusted for specific tasks/activities, purposeful rounding, able to make needs known, non skid socks, bed in lowest/locked position, personal items within reach, call molina within reach CARE PLAN GOAL OUTCOME EVALUATION: Problem: Adult Inpatient Plan of Care Goal: Plan of Care Review 04/14/20231804 by Demetrius Begum RN Outcome: Ongoing (Interventions Implemented as Appropriate) 04/14/20231804 by Demetrius Begum RN Outcome: Ongoing (Interventions Implemented as Appropriate) Goal: Patient-Specific Goal (Individualized) 04/14/20231804 by Demetrius Begum RN Outcome: Ongoing (Interventions Implemented as Appropriate) 04/14/20231804 by Demetrius Begum RN Outcome: Ongoing (Interventions Implemented as Appropriate) Goal: Absence of Hospital-Acquired Illness or Injury 04/14/20231804 by Demetrius Begum RN Outcome: Ongoing (Interventions Implemented as Appropriate) 04/14/20231804 by Demetrius Begum RN Outcome: Ongoing (Interventions Implemented as Appropriate) Goal: Optimal Comfort and Wellbeing 04/14/20231804 by Demetrius Begum RN Outcome: Ongoing (Interventions Implemented as Appropriate) 04/14/20231804 by Demetrius Begum RN Outcome: Ongoing (Interventions Implemented as Appropriate) Goal: Readiness for Transition of Care 04/14/20231804 by Demetrius Begum RN Outcome: Ongoing (Interventions Implemented as Appropriate) 04/14/20231804 by Demetrius Begum RN Outcome: Ongoing (Interventions Implemented as Appropriate) Problem: Chest Pain Goal: Resolution of Chest Pain Symptoms 04/14/20231804 by Demetrius Begum RN Outcome: Ongoing (Interventions Implemented as Appropriate) 04/14/20231804 by Demetrius Begum RN Outcome: Ongoing (Interventions Implemented as Appropriate) Problem: Arrhythmia/Dysrhythmia (Cardiac Catheterization) Goal: Stable Heart Rate and Rhythm Outcome: Ongoing (Interventions Implemented as Appropriate) Problem: Bleeding (Cardiac Catheterization) Goal: Absence of Bleeding Outcome: Ongoing (Interventions Implemented as Appropriate) Problem: Contrast-Induced Injury Risk (Cardiac Catheterization) Goal: Absence of Contrast-Induced Injury Outcome: Ongoing (Interventions Implemented as Appropriate) Problem: Embolism (Cardiac Catheterization) Goal: Absence of Embolism Signs and Symptoms Outcome: Ongoing (Interventions Implemented as Appropriate) Problem: Ongoing Anesthesia/Sedation Effects (Cardiac Catheterization) Goal: Anesthesia/Sedation Recovery Outcome: Ongoing (Interventions Implemented as Appropriate) Problem: Pain (Cardiac Catheterization) Goal: Acceptable Pain Control Outcome: Ongoing (Interventions Implemented as Appropriate) Problem: Vascular Access Protection (Cardiac Catheterization) Goal: Absence of Vascular Access Complication Outcome: Ongoing (Interventions Implemented as Appropriate) * Consult Note - Hima Reyes MD - 04/14/2023 5:31 PM EST Images from the original note were not included. INPATIENT ONCOLOGY CONSULT Reason for consult: metastatic CSPS Service requesting consult: cardiology HISTORY OF PRESENT ILLNESS: In brief, Huber Mosher is a 67 y.o. male with metastatic castration sensitive prostate cancer, currently on ADT + darolutamide + docetaxel. He was admitted to cardiology for NSTEMI and found tohave multivessel disease that requires CABG. HPI per Dr. Crow Ngo Brent Mosher is a 67 y.o. male w/ PMH CAD (per CT scan imaging), cardiomyopathy (stress vs ischemic), high risk prostate cancer with multiple mets to bones/lymph nodes,CKD, IDDM2, hypothyroidism, and bilateral hydronephrosis s/p stents who presents as a transfer from [place] for NSTEMI. Patient states he was in his normal state of health until 10 PM last night (Monday), when he developed sudden onset 8/10 left sided chest pain with radiation into his shoulder. He had associated shortness of breath but denied any diaphoresis, lightheadedness, dizziness, nausea, or syncope. He presented to [place] where initial EKG showed borderline LITO in aVR and diffuse ST depressions. Repeat EKG demonstrated improvement of ST changes. Troponin 20-->129-->1845-->5255. He receivednitroglycerin which dropped his SBP to ~80s. He subsequently received fentanyl 150 with complete resolution of his pain. CT PE without evidence of PE but showed known blastic bone mets. CT head without evidence of mets. Patient was aspirin loaded and started on a heparin drip. Transferred to [facility] for further care. On arrival, patient is HDS. He denies recurrence of chest pain since receiving fentanyl. He additionally denies lightheadedness, headaches, dizziness, shortness of breath, orthopnea, PND, palpitations, abdominal pain, constipation, or diarrhea. He endorses changes in his exercise tolerance, statingthat over the past several months, he sometimes gets chest pain with exertion that resolves with rest. He also endorses significant unilateral right LE swelling. He previously took lasix without improvement so this was recently discontinued. Of note, patient was diagnosed with high risk prostate cancer last September and now s/p three cycles ofdocetaxel (last cycle ~3 weeks ago); continuing on darolutamide 300 mg BID. During his hospitalization last September, he was found to have new LV systolic dysfunction (EF 27%). A recent echo on 03/29 at [place] showed an EF 46% with regional WMA. Oncology history per Dr. Curtis's note Diagnosis: Prostate cancer with multiple metastasis to bones and lymph nodes, high risk Treatment -10/31/2022 started Lupron 22.5 mg -11/17/2022 started abiraterone 1000 mg and prednisone 5 mg a day -02/07/23 started docetaxel 75 mg/m?? every 3 weeks with Neulasta support -02/13/2023 stopped abiraterone -02/07/23 - 03/21/23 3 cycles of docetaxel Huber Mosher diagnosed with de angélica metastatic prostate cancer with multiple bone and lymph nodes metastases. Today, he feels that his chest pain is better. He was disappointed that he might need CABG. He has been compliant to all his medication including darolutamide. So far, he has been tolerating the treatments well. REVIEW OF SYTEMS: Constitutional --Energy level: fair --Pain: as above --Fevers/chills/sweats: No --Unexpected weight loss or gain: No Eyes - No change in vision Ears, nose, throat - No change hearing, no oral or throat pain or thrush Cardiovascular --SOB: No --ROBERTS: No --chest pain: as above Respiratory --Cough: No --SOB, ROBERTS: as above Gastrointestinal --Appetite: good --Nausea/vomiting/diarrhea/constipation: No Genitourinary --Dysuria or hematuria: No Musculoskeletal --Muscle pain or weakness: No --Joint pain or swelling: No Immune System --Recent infections: No Hematology/Lymph --Bruising/bleeding/melena: No --Enlarged nodes or other masses: No Skin --Rashes or petechiae: No Other ROS: All negative PMHX: Patient Active Problem List Diagnosis NSTEMI (non-ST elevated myocardial infarction) High risk medication use Foot pain Hypercholesterolemia Hypothyroidism Onychomycosis Traumatic plantar fasciitis Type 2 diabetes mellitus Prostate cancer metastatic to multiple sites 10/04/2022 Surgical Pathology DIAGNOSIS A - Lymph node, biopsy: - Metastatic carcinoma, consistent with prostatic origin (see discussion) [place] light chain deposition disease Gout Cardiomyopathy 09/2022: EF 27%, apical AK Retroperitoneal lymphadenopathy Hydronephrosis Pleural effusion, bilateral Bilateral lower extremity edema PSHX: Past Surgical History: Procedure Laterality Date CATARACT REMOVAL WITH IMPLANT 2019 CT GUIDED BIOPSY LYMPH NODE(CHEST/ABD/PELVIS) 09/30/2022 CT Guided Biopsy Lymph Node (Chest/Abd/Pelvis) 09/30/2022 Evangelist Sparks MD [facility] RAD CT SCAN HAND SURGERY Left 1998 Left thumb repair surgery INGUINAL HERNIA REPAIR 1955 as an infant PRO ALLOGRAFT FOR SPINE SURGERY ONLY MORSELIZED Bilateral 03/17/2022 ALLOGRAFT FOR SPINE SURGERY ONLY; MORSELIZED (WRVU *) performed by Bebe Hatfield MD at [facility] MAIN OR PRO ARTHRD ANT INTERDY CERVCL BELW C2 EA ADDL NTRSPC Bilateral 03/17/2022 ARTHRODESIS ANT INTERBDY CERVCL BELOW C2 EA ADDL INTRSPACE (WRVU 6.5) performed by Bebe Hatfield MD at [facility] MAIN OR PRO ARTHRODESIS, ANT INTERBODY,DECOMPRESSION; CERVICAL BELOW C2 Bilateral 03/17/2022 ARTHRODESIS, ANT INTERBODY,DECOMPRESSION; CERVICAL BELOW C2 (WRVU 25) performed by Bebe Hatfield MD at [facility] MAIN OR PRO CYSTOSCOPY, INSERT URETERAL STENT Bilateral 09/29/2022 CYSTO, STENT PLACEMENT (WRVU 2.82) performed by Evangelist Castañeda MD at [facility] MAIN OR PRO INSERT BIOMCHN DEV INTERVERTEBRAL DSC SPC W/ARTHRD Bilateral 03/17/2022 INSERTION INTERBODY BIOMECH DEV TO INTERVEBRAL DISC SPACE, EA INTERSPACE (WRVU 4.25) performed by Bebe Hatfield MD at [facility] MAIN OR US GUIDED BIOPSY PROSTATE WITH URONAV FUSION 12/20/2021 US Guided Biopsy Prostate with Uronav Fusion 12/20/2021 [facility] RAD ULTRASOUND MEDS: Scheduled Meds: lidocaine 1 patch Transdermal Daily atorvastatin 40 mg Oral Daily cholecalciferol 1,000 Units Oral Daily levothyroxine 150 mcg Oral Daily tamsulosin 0.4 mg Oral Daily aspirin 81 mg Oral Daily insulin lispro 1-4 Units Subcutaneous Q4H SILVER insulin glargine (Lantus;Semglee) (100 unit/mL) subcutaneous injection 5 Units Subcutaneous Daily sodium chloride 0.9 % (flush) 5 mL Intravenous BID Continuous Infusions: heparin (porcine) infusion 1,000 Units/hr (04/13/23 1900) PRN Meds:.HYDROmorphone, acetaminophen, heparin (porcine) infusion AND heparin (porcine), glucose 40% oral geL OR dextrose OR glucagon, sodium chloride 0.9 % (flush), lidocaine, nitroGLYcerin, sodium chloride 0.9 % (flush) Allergies: Allergies Allergen Reactions Amoxicillin Rash Penicillin Other (See Comments) Other reaction(s): Unknown FAMILY HISTORY: Family History Problem Relation Age of Onset Breast Cancer Mother 73 Heart Failure Father Heart Surgery Father Diabetes Sister Cancer Paternal Uncle 55 unknown primary, suspected stomach/abdominal SOCIAL HISTORY Social History Socioeconomic History Marital status: Single [...] file Intimate Partner Violence: Not At Risk (04/11/2023) IPV Inpatient Questions Prevent Contact with Others: no Feels Threatened by Someone: no Feels Unsafe at Home: no Physical Signs of Abuse Present: no Housing Stability: Low Risk (04/14/2023) Housing Stability Vital Sign Unable to Pay for Housing in the Last Year: No Number of Places Lived in the Last Year: 1 Unstable Housing in the Last Year: No PHYSICAL EXAM Vitals Flowsheet Row Admission (Current) from 04/13/2023 in Heart and Vascular Unit Level 3 Wing B at [facility] Weight 85.6 kg (188 lb 11.4 oz) Height 179.1 cm (5' 10.5) BSA (Calculated - sq m) 2.07 sq meters BMI (Calculated) 26.82 Temp 36.7 ??C (98 ??F) Temp src Oral Heart Rate 75 Heart Rate from SpO2 77 bpm Heart Rate Source Monitor Resp 15 BP 88/51 BP Location Right arm Patient Position Lying SpO2 100 % Body surface area is 2.06 meters squared. GENERAL: Huber Mosher appears well and is in no acute distress. ENT: Oral pharynx clear. EYES: DAX NECK: Supple without adenopathy. AXILLARY: no adenopathy INGUINAL LN: no adenopathy CARDIAC: Regular rate and rhythm without S3,S4 or murmurs. LUNGS: Clear to auscultation./percussion ABDOMEN: Soft and non-tender without hepatosplenomegaly or masses. EXTREMITIES: No cyanosis, clubbing, edema or calf tenderness. SKIN: No bruises or petechiae. NEUROLOGICAL: Alert and oriented to person, place and time. LABORATORY STUDIES Recent Results (from the past 72 hour(s)) POCT Glucose Result Value Ref Range POC Glucose 146 65 - 199 mg/dL Basic Metabolic Panel (non-fasting) Result Value Ref Range Glucose Lvl 210 (H) 65 - 199 mg/dL BUN 42 (H) 10 - 20 mg/dL Creatinine 1.78 (H) 0.80 - 1.50 mg/dL Sodium 135 135 - 145 mmol/L Potassium 4.4 3.5 - 5.0 mmol/L Chloride 102 98 - 107 mmol/L CO2 21 (L) 22 - 31 mmol/L Anion Gap 12 5 - 15 mmol/L Calcium 8.6 8.5 - 10.5 mg/dL Estimated GFR 41 (L) >=60 mL/min/1.73 m?? Magnesium Result Value Ref Range Magnesium 0.86 0.69 - 1.07 mmol/L Calcium Result Value Ref Range Calcium 8.6 8.5 - 10.5 mg/dL Phosphorus Result Value Ref Range Phosphorus 3.7 2.5 - 4.5 mg/dL TSH Result Value Ref Range TSH 2.97 0.27 - 4.20 mcIU/mL pro-Brain Natriuretic Peptide Result Value Ref Range ProBNP 6,510 (H) <=124 pg/mL Troponin Result Value Ref Range Troponin-T HS 540 (H) <=22 ng/L Hepatic Function Panel Result Value Ref Range Total Protein 5.8 (L) 6.1 - 8.0 g/dL Albumin 3.4 3.2 - 5.2 g/dL AST 27 0 - 39 unit/L ALT 10 0 - 55 unit/L Alk Phos 53 40 - 130 unit/L Total Bilirubin 0.3 0.2 - 1.3 mg/dL Bili, Direct 0.1 0.0 - 0.3 mg/dL Hemoglobin A1c Result Value Ref Range Hemoglobin A1C 8.0 (H) 4.3 - 5.6 % Est Avg Gluc 182 mg/dL Hemogram Result Value Ref Range WBC 5.5 4.0 - 9.5 x10(3)/mcL RBC 2.85 (L) 4.58 - 5.54 x10(6)/mcL Hemoglobin 9.0 (L) 13.7 - 16.5 g/dL Hematocrit 27.4 (L) 40.5 - 48.5 % MCV 96.1 (H) 82.9 - 93.1 fL MCH 31.6 27.5 - 32.1 pg MCHC 32.8 32.0 - 35.7 g/dL Platelets 318 145 - 357 x10(3)/mcL RDWSD 63.0 (H) 36.0 - 45.0 fL RDWCV 17.9 (H) 11.4 - 13.8 % MPV 9.6 7.6 - 12.9 fL nRBC % Auto 0.0 % nRBC Abs Auto 0.000 0.000 - 0.000 x10(3)/mcL Differential, Automated Result Value Ref Range Neutrophils % 56.7 % Neutr Abs (ANC) 3.13 1.70 - 6.10 x10(3)/mcL Lymphocytes % 23.2 % Lymphocytes Abs 1.3 0.9 - 3.2 x10(3)/mcL Monocytes % 13.6 % Monocyte Abs 0.8 0.3 - 0.9 x10(3)/mcL Eosinophils % 4.3 % Eosinophils Abs 0.2 0.0 - 0.4 x10(3)/mcL Basophils % 1.8 % Basophils Abs 0.1 0.0 - 0.1 x10(3)/mcL Immature Gran % 0.40 % Edie Gran Abs 0.02 0.00 - 0.04 x10(3)/mcL EKG 12 Lead Result Value Ref Range Ventricular rate 80 BPM Atrial Rate 80 BPM P-R Interval 126 ms QRS Duration 96 ms Q-T Interval 368 ms QTC Calculated (Bezet) 424 ms Calculated P [place] 43 degrees Calculated R [place] 50 degrees Calculated T [place] -143 degrees INTERPRETATION Normal sinus rhythm ST & T wave abnormality, consider inferior ischemia ST & T wave abnormality, consider anterolateral ischemia Abnormal ECG When compared with ECG of 10-NOV-2022 08:43, T wave inversion now evident in Anterior leads POCT Glucose Result Value Ref Range POC Glucose 184 65 - 199 mg/dL Troponin Result Value Ref Range Troponin-T HS 497 (H) <=22 ng/L Basic Metabolic Panel (non-fasting) Result Value Ref Range Glucose Lvl 167 65 - 199 mg/dL BUN 41 (H) 10 - 20 mg/dL Creatinine 1.71 (H) 0.80 - 1.50 mg/dL Sodium 134 (L) 135 - 145 mmol/L Potassium 4.3 3.5 - 5.0 mmol/L Chloride 103 98 - 107 mmol/L CO2 21 (L) 22 - 31 mmol/L Anion Gap 10 5 - 15 mmol/L Calcium 8.6 8.5 - 10.5 mg/dL Estimated GFR 43 (L) >=60 mL/min/1.73 m?? Magnesium Result Value Ref Range Magnesium 0.89 0.69 - 1.07 mmol/L Phosphorus Result Value Ref Range Phosphorus 3.8 2.5 - 4.5 mg/dL Lipid Panel (Reflex Direct LDL) Result Value Ref Range Chol, Total 101 mg/dL Triglycerides 144 mg/dL HDL 34 mg/dL LDL Cholesterol 38 mg/dL Chol/HDL Ratio 3.0 ratio Lipid Interpretation See Note Heparin (unfractionated) Level Result Value Ref Range Heparin UFH Level 0.32 IU/mL Hemogram Result Value Ref Range WBC 5.0 4.0 - 9.5 x10(3)/mcL RBC 2.68 (L) 4.58 - 5.54 x10(6)/mcL Hemoglobin 8.6 (L) 13.7 - 16.5 g/dL Hematocrit 25.3 (L) 40.5 - 48.5 % MCV 94.4 (H) 82.9 - 93.1 fL MCH 32.1 27.5 - 32.1 pg MCHC 34.0 32.0 - 35.7 g/dL Platelets 314 145 - 357 x10(3)/mcL RDWSD 60.5 (H) 36.0 - 45.0 fL RDWCV 17.8 (H) 11.4 - 13.8 % MPV 9.7 7.6 - 12.9 fL nRBC % Auto 0.0 % nRBC Abs Auto 0.000 0.000 - 0.000 x10(3)/mcL Differential, Automated Result Value Ref Range Neutrophils % 48.3 % Neutr Abs (ANC) 2.42 1.70 - 6.10 x10(3)/mcL Lymphocytes % 26.5 % Lymphocytes Abs 1.3 0.9 - 3.2 x10(3)/mcL Monocytes % 16.8 % Monocyte Abs 0.8 0.3 - 0.9 x10(3)/mcL Eosinophils % 6.0 % Eosinophils Abs 0.3 0.0 - 0.4 x10(3)/mcL Basophils % 2.2 % Basophils Abs 0.1 0.0 - 0.1 x10(3)/mcL Immature Gran % 0.20 % Edie Gran Abs 0.01 0.00 - 0.04 x10(3)/mcL POCT Glucose Result Value Ref Range POC Glucose 148 65 - 199 mg/dL POCT Glucose Result Value Ref Range POC Glucose 181 65 - 199 mg/dL Heparin (unfractionated) Level Result Value Ref Range Heparin UFH Level 0.35 IU/mL POCT Glucose Result Value Ref Range POC Glucose 143 65 - 199 mg/dL Echocardiogram Transthoracic Result Value Ref Range EF 46 POCT Glucose Result Value Ref Range POC Glucose 146 65 - 199 mg/dL RADIOLOGY STUDIES REVIEWED: 04/14/23 PET IMPRESSION 1. PSMA positive shahida metastases in the neck, abdomen, and pelvis, markedly decreased in size compared to prior FDG PET/CT of 10/23/2022. 2. Multiple PSMA positive sclerotic osseous metastases as above. 3. PSMA positive malignancy in the posterior right lobe of prostate. ASSESSMENT: # Metastatic castration sensitive prostate cancer # NSTEMI 67 yo male with metastatic castration sensitive prostate cancer, currently on darolutamide + ADT + docetaxel. He is admitted for NSTEMI and will need CABG. Darolutamide could increase the risk of ischemic heart disease, so I would hold off darolutamide during this acute event and keep holding it until he sees Dr. Curtis next time. In terms of his prognosis, we cannot get any specific number for each patient, but based on ARASENStrial (https://www.nejm.org/doi/10.1056/PLWQfb8223478), the 4 year overall survival was 62.7%. He could have a worse prognosis due to his baseline diabetes and coronary artery disease but his prostate cancer prognosis is years. Thus I think pursuing CABG is a reasonable option for him. RECOMMENDATIONS: - hold off darolutamide until he sees his primary oncologist next time - his prostate cancer prognosis is years (median 4-5 years), feels CABG is a reasonable option for him - ANGELICA per primary team Patient was discussed with Oncology attending Dr. Calvillo and Dr. Curtis. X Consult service will continue to follow patient. Recommendations as above. Hematology to sign off at this time but remains available should further consultation/questions arise. Hima Reyes M.D. Hematology/Oncology Fellow Pager # [phone] 04/14/23, 5:31 PM Hematology/[place] [address] * Initial Assessments - Nancy Lai RN - 04/14/2023 2:21 PM EST Office of Care Management Initial Assessment Nancy Lai RN reviewed record and discussed patient with Care Team. Source of Information: Team, bedside nurse, medical record, and Patient. Introduced self/reviewed role; services accepted. Admitted From: Transfer from another hospital Location: [facility] Reason for Hospitalization: Chest and shoulder pain that did not subside Covid Vaccination Status: 1st, 2nd & booster Past medical History: Past Medical History: Diagnosis Date Adenocarcinoma of prostate 10/21/2022 Adenoma of colon Chronic kidney disease Diabetes Gout High blood pressure Hypercholesterolemia 10/21/2022 Hypothyroid Hospitalizations Within the Past 30 Days: no previous admission in last 30 days Current Decision-Making Capacity: Self If AD's have not been completed the following surrogate would be surrogate decision maker per [place] decision making law. (Only good for 180 days) Any patient receiving care in [place] must abide by [place] law. The hierarchy for surrogate decision making is: (a) Patient???s spouse or civil union partner unless there is a divorce proceeding, separation agreement, or restraining order limiting that person???s relationship with the patient. (b) Any adult son or daughter of the patient. (c) Either parent of the patient. (d) Any adult brother or sister of the patient.-Ct (e) Any adult grandchild of the patient. (f) Any grandparent of the patient. (g) Any adult aunt, uncle, niece, or nephew of the patient. (h) A close friend of the patient. (i) The agent with financial power of ways operator or a conservator appointed in accordance with RSA 464-A. (j) The guardian of the patient???s estate. Advance Care Planning: Attempt Cardiopulmonary Resuscitation - Inpatient <no information> -Advanced Directive: Yes, not on file (pt states he will need to change it but would like to do it his PCP's office) Who is your DPOA-HC?: Sibling Current Functional Ability: Independent Functional Status Prior to Admission: Independent Prior ADLs & IADLs: Independent with all ADLs & IADLs Bathing: Independent with Bathing Dressing: Independent with Dressing Home Environment: Others in the home: alone. Current Living Arrangements: home/apartment/condo. Accessibility Concerns:lives in the firs level of apartment buliding, no LITO. In the last 12 months, was there a time when you were not able to pay the mortgage or rent on time?: No In the last 12 months, how many places have you lived?: 1 In the last 12 months, was there a time when you did not have a steady place to sleep or slept in ashelter (including now)?: No In the past 12 months has the [employer], gas, oil, or water [employer] threatened to shut off services in your home?: No Within the past 12 months, you worried that your food would run out before you got the money to buymore.: Never true Within the past 12 months, the food you bought just didn't last and you didn't have money to get more.: Never true Resource / Environmental Concerns: Resource/Environmental Concerns: none In the past 12 months, has lack of transportation kept you from medical appointments or from getting medications?: No (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) In the past 12 months, has lack of transportation kept you from meetings, work, or from getting things needed for daily living?: No (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) Current DME: none Home Address confirmed as: [address] [place] [phone] Social & Family Supports: All names listed below confirmed with patient as current and correct Extended Emergency Contact Information Primary Emergency Contact: JANINENASIMSANTA Address: [place] [address] Relation: Friend Secondary Emergency Contact: [address] Mobile Relation: Sibling Current Care Provided by: self Provides Primary Care For: no one Caregiver if needed: none Quality of Family relationships: involved, supportive Community Resources being provided currently: none Behavioral Health History: denies anxiety, depression Substance Use/Abuse listed: Social History Tobacco Use Smoking Status Never Smokeless Tobacco Never In the past year have you used an illegal drug or used a prescription medication for non-medical reasons?: No 0 No problems reported 1-2 Low level 3-5 Moderate level 6-8 Substantial level 9- 10 Severe level In the past year have you had 5 or more drinks a day containing alcohol?: No 0 to 7 points: Low risk 8 to 15 points: Medium risk 16 to 19 points: High risk 20 to 40 points: Addiction likely Health/Prescription Coverage: Primary Insurance: MEDICARE Payor: MEDICARE / Plan: MEDICARE PART A & B / Product Type: *No Product type* / Secondary Insurance: AARP SUPPLEMENT ONLY if patient has Medicare A&B - Does this patient have secondary insurance?: Yes ; Prescription Coverage: Yes Preferred Pharmacy: [facility] [address] [place] [address] [place] [address] [place] [place] [id number] [facility] Delivery - [place], [place] - [address] [facility] [address] [facility] [address] [facility] - [place], [place] - [address] [facility] [address] [facility] [address] [facility], [facility] ([place]) - [place], [place] - [address] [place] [address], [facility] [address] [place] [address], [facility] [address] [place] [phone] Status: Patient is a : No Primary Care Provider confirmed: JESSE Nesbitt [phone] Patient/Caregiver Goals of Treatment: To be able to return home soon Potential Needs for Transition of Care: none Agency Referrals: Not Applicable at this time. Transportation: no concerns Transportation Anticipated: family or friend will provide Concerns to be Addressed: discharge planning Assessment: Patient is admitted to Cardiology service for NSTEMI. Pt is functionally independent, lives alone prior to hospitalization. SisterCt lives in [place] but is the patient's SDM. Plan: Will continue to monitor d/c needs. A member of the Care Management team will continue to monitor progress, follow for continuity of care and assist with transition of care planning. STAR Garcia, RN Inpatient Cnc Supervisor- Cardiology Office of Care Management Pager #: [phone] * Plan of Care - Estefani Crowder RN - 04/14/2023 6:59 AM EST JOCELYN. VSS. SR w/ 1* AVB on tele. Denies any CP/discomfort. Heparin gtt infusing. Npo p [place]. Problem: Adult Inpatient Plan of Care Goal: Plan of Care Review Outcome: Ongoing (Interventions Implemented as Appropriate) Goal: Patient-Specific Goal (Individualized) Outcome: Ongoing (Interventions Implemented as Appropriate) Goal: Absence of Hospital-Acquired Illness or Injury Outcome: Ongoing (Interventions Implemented as Appropriate) Goal: Optimal Comfort and Wellbeing Outcome: Ongoing (Interventions Implemented as Appropriate) Goal: Readiness for Transition of Care Outcome: Ongoing (Interventions Implemented as Appropriate) Problem: Chest Pain Goal: Resolution of Chest Pain Symptoms Outcome: Ongoing (Interventions Implemented as Appropriate) * Plan of Care - Demetrius Begum RN - 04/13/2023 7:12 PM EST Pt arrived to [facility] around 1730. Pt AOx4.VSS on RA. Pt denies CP or SOB. NSR on tele, see scanned documents. See flowsheets for I&O. Heparin gtt running from OSH. CARE PLAN GOAL OUTCOME EVALUATION: Problem: Adult Inpatient Plan of Care Goal: Plan of Care Review Outcome: Ongoing (Interventions Implemented as Appropriate) Goal: Patient-Specific Goal (Individualized) Outcome: Ongoing (Interventions Implemented as Appropriate) Goal: Absence of Hospital-Acquired Illness or Injury Outcome: Ongoing (Interventions Implemented as Appropriate) Goal: Optimal Comfort and Wellbeing Outcome: Ongoing (Interventions Implemented as Appropriate) Goal: Readiness for Transition of Care Outcome: Ongoing (Interventions Implemented as Appropriate) Problem: Chest Pain Goal: Resolution of Chest Pain Symptoms Outcome: Ongoing (Interventions Implemented as Appropriate) documented in this encounter Plan of Treatment Upcoming Encounters Date Type Department Care Team (Late st Contact Info) Description 10/16/2023 2:30 PM EDT Office Visit Hematology/Oncology at [address] [phone] Fiordaliza Downing APRN [facility] [place] [address] 11/10/2023 9:00 AM EDT Appointment [place] [phone] Thomas Curtis MD [facility] [address] [place] [address] 11/21/2023 11:00 AM EDT Infusion Hematology Oncology at [address] [phone] 12/05/2023 1:30 PM EDT Office Visit Hematology/Oncology at [address] [phone] Thomas Curtis MD [facility] [place] [address] Fiordaliza Downing APRN [facility] [place] [address] 12/26/2023 9:00 AM EDT Appointment [place] [phone] Thomas Curtis MD [facility] [address] HEMATOLOG[place] [address] 02/09/2024 8:00 AM EST Appointment [place] [phone] Thmoas Curtis MD [facility] [place] [address] 03/18/2024 3:00 PM EST Office Visit Cardiology at [address] [phone] Sameer Rudolph MD [facility] [place] [address] 03/22/2024 9:00 AM EST Appointment [place] [phone] Thomas Curtis MD [facility] [place] [address] 08/23/2024 Hospital Encounter [place] [phone] True Juarez MD [facility] [place] [address] Scheduled Procedures Name Priority Associated Diagnoses Date/Ti [...] Christy Bravo, FOR[facility]LY [facility] Note: The patient? s goal is to continue positive results of oral chemotherapy by maintaining improved labs (PSA) or stable scans in clinic for the upcoming year. documented as of this encounter Procedures Procedure Name Priority Date/Time Associated Diagnosis Comments POCT GLUCOSE Routine 04/19/2023 12:15 PM EST POCT GLUCOSE Routine 04/19/2023 7:40 AM EST HEMOGRAM Routine 04/19/2023 4:00 AM EST DIFFERENTIAL, AUTOMATED Routine 04/19/19 4:00 AM EST CBC (WITH DIFF) Routine 04/19/2023 4:00 AM EST PHOSPHORUS Routine 04/19/2023 4:00 AM EST MAGNESIUM Routine 04/19/2023 4:00 AM EST BASIC METABOLIC PANEL Routine 04/19/2023 4:00 AM EST POCT GLUCOSE Routine 04/19/2023 3:54 AM EST POCT GLUCOSE Routine 04/18/2023 11:24 PM EST POCT GLUCOSE Routine 04/18/2023 8:17 PM EST POCT GLUCOSE Routine 04/18/2023 4:29 PM EST EKG 12-LEAD Routine 04/18/2023 12:34 PM EST NSTEMI (non-ST elevated myocardial infarction) POCT GLUCOSE Routine 04/18/2023 12:26 PM EST CARDIAC CATHETERIZATION Routine 04/18/19 12:15 PM EST POCT GLUCOSE Routine 04/18/2023 7:30 AM EST POCT GLUCOSE Routine 04/18/2023 3:39 AM EST HEPARIN (UNFRACTIONATED) LEVEL Timed 04/18/2023 3:30 AM EST HEMOGRAM Routine 04/18/2023 3:30 AM EST DIFFERENTIAL, AUTOMATED Routine 04/18/19 3:30 AM EST CBC (WITH DIFF) Routine 04/18/2023 3:30 AM EST PHOSPHORUS Routine 04/18/2023 3:30 AM EST MAGNESIUM Routine 04/18/2023 3:30 AM EST BASIC METABOLIC PANEL Routine 04/18/2023 3:30 AM EST POCT GLUCOSE Routine 04/17/2023 11:32 PM EST POCT GLUCOSE Routine 04/17/2023 7:31 PM EST TRANSFUSE RED BLOOD CELLS Routine 04/17/2023 5:45 PM EST POCT GLUCOSE Routine 04/17/2023 4:10 PM EST ABORH RECHECK STATUS Routine 04/17/2023 2:16 PM EST TYPE AND SCREEN ([facility]/CGP/BOBBI) Routine 04/17/2023 2:16 PM EST POCT GLUCOSE Routine 04/17/2023 10:47 AM EST POCT GLUCOSE Routine 04/17/2023 7:40 AM EST POCT GLUCOSE Routine 04/17/2023 3:25 AM EST HEPARIN (UNFRACTIONATED) LEVEL Timed 04/17/2023 3:15 AM EST HEMOGRAM Routine 04/17/2023 3:15 AM EST DIFFERENTIAL, AUTOMATED Routine 04/17/19 24 3:15 AM EST CBC (WITH DIFF) Routine 04/17/2023 3:15 AM EST PHOSPHORUS Routine 04/17/2023 3:15 AM EST MAGNESIUM Routine 04/17/2023 3:15 AM EST BASIC METABOLIC PANEL Routine 04/17/2023 3:15 AM EST POCT GLUCOSE Routine 04/17/2023 12:06 AM EST LAB SCAN 04/17/2023 12:00 AM EST POCT GLUCOSE Routine 04/16/2023 8:15 PM EST POCT GLUCOSE Routine 04/16/2023 3:26 PM EST POCT GLUCOSE Routine 04/16/2023 11:21 AM EST POCT GLUCOSE Routine 04/16/2023 7:33 AM EST HEPARIN (UNFRACTIONATED) LEVEL Timed 04/16/2023 4:25 AM EST HEMOGRAM Routine 04/16/2023 4:25 AM EST DIFFERENTIAL, AUTOMATED Routine 04/16/19 4:25 AM EST CBC (WITH DIFF) Routine 04/16/2023 4:25 AM EST PHOSPHORUS Routine 04/16/2023 4:25 AM EST MAGNESIUM Routine 04/16/2023 4:25 AM EST BASIC METABOLIC PANEL Routine 04/16/2023 4:25 AM EST POCT GLUCOSE Routine 04/16/2023 4:05 AM EST POCT GLUCOSE Routine 04/15/2023 11:50 PM EST POCT GLUCOSE Routine 04/15/2023 9:43 PM EST POCT GLUCOSE Routine 04/15/2023 7:37 PM EST HEPARIN (UNFRACTIONATED) LEVEL Timed 04/15/2023 5:35 PM EST POCT GLUCOSE Routine 04/15/2023 4:45 PM EST POCT GLUCOSE Routine 04/15/2023 12:10 PM EST HEPARIN (UNFRACTIONATED) LEVEL Timed 04/15/2023 12:00 PM EST POCT GLUCOSE Routine 04/15/2023 7:45 AM EST HEPARIN (UNFRACTIONATED) LEVEL Timed 04/15/2023 5:11 AM EST HEMOGRAM Routine 04/15/2023 5:11 AM EST DIFFERENTIAL, AUTOMATED Routine 04/15/19 5:11 AM EST CBC (WITH DIFF) Routine 04/15/2023 5:11 AM EST PHOSPHORUS Routine 04/15/2023 5:11 AM EST MAGNESIUM Routine 04/15/2023 5:11 AM EST BASIC METABOLIC PANEL Routine 04/15/2023 5:11 AM EST POCT GLUCOSE Routine 04/15/2023 3:18 AM EST POCT GLUCOSE Routine 04/15/2023 12:34 AM EST POCT GLUCOSE Routine 04/14/2023 7:13 PM EST POCT GLUCOSE Routine 04/14/2023 4:42 PM EST CARDIAC CATHETERIZATION Routine 04/14/19 4:00 PM EST ECHO LMTD W CONTRAST W LMTD SPEC DOPP COLOR DOPP Routine 04/14/2023 1:14 PM EST NSTEMI (non-ST elevated myocardial infarction) POCT GLUCOSE Routine 04/14/2023 11:41 AM EST HEPARIN (UNFRACTIONATED) LEVEL Timed 04/14/2023 8:48 AM EST POCT GLUCOSE Routine 04/14/2023 8:07 AM EST POCT GLUCOSE Routine 04/14/2023 3:56 AM EST TROPONIN - SERIES STAT 04/14/2023 12: 40 AM EST HEPARIN (UNFRACTIONATED) LEVEL Timed 04/14/2023 12:40 AM EST HEMOGRAM Routine 04/14/2023 12:40 AM EST DIFFERENTIAL, AUTOMATED Routine 04/14/19 12:40 AM EST CBC (WITH DIFF) Routine 04/14/2023 12:40 AM EST PHOSPHORUS Routine 04/14/2023 12:40 AM EST MAGNESIUM Routine 04/14/2023 12:40 AM EST LIPID PANEL (REFLEX DIRECT LDL) Routine 04/14/2023 12:40 AM EST BASIC METABOLIC PANEL Routine 04/14/2023 12:40 AM EST POCT GLUCOSE Routine 04/14/2023 12:27 AM EST EKG 12-LEAD Routine 04/13/2023 10:01 PM EST NSTEMI (non-ST elevated myocardial infarction) TROPONIN - SERIES STAT 04/13/2023 9:0 7 PM EST HEMOGRAM Routine 04/13/2023 9:07 PM EST DIFFERENTIAL, AUTOMATED Routine 04/13/19 9:07 PM EST CBC (WITH DIFF) Routine 04/13/2023 9:07 PM EST TSH Routine 04/13/2023 9:07 PM EST PHOSPHORUS Routine 04/13/2023 9:07 PM EST PRO-BRAIN NATRIURETIC PEPTIDE Routine 04/13/2023 9:07 PM EST MAGNESIUM Routine 04/13/2023 9:07 PM EST HEMOGLOBIN A1C Routine 04/13/2023 9:07 PM EST CALCIUM Routine 04/13/2023 9:07 PM EST HEPATIC FUNCTION PANEL Routine 9:07 PM EST BASIC METABOLIC PANEL Routine 04/13/2023 9:07 PM EST POCT GLUCOSE Routine 04/13/2023 7:14 PM EST documented in this encounter Results * POCT Glucose (04/19/2023 12:15 PM EST) Glucose, POC 155 65 - 199 mg/dL [facility] Comment: Supplemental ranges: <140 mg/dL before meals <180 mg/dL all other times of the day Blood 04/19/2023 12:1 5 PM EST 04/19/2023 12:15 PM EST Sidney Maldonado MD POINT OF CARE TEST O RDERABART Performing Organization Address City/[facility]/ZIP Co de Phone Number [facility] [place] [place] [address] * POCT Glucose (04/19/2023 7:40 AM EST) Glucose, POC 173 65 - 199 mg/dL [facility] Comment: Supplemental ranges: <140 mg/dL before meals <180 mg/dL all other times of the day Blood 04/19/2023 7:40 AM EST 04/19/2023 7:40 AM EST Sidney Maldonado MD POINT OF CARE TEST O DANIEL Performing Organization Address [facility] Co de Phone Number [facility] [place] [address] * (ABNORMAL) Differential, Automated (04/19/2023 4:00 AM EST) Pathologist [facility] Neutrophil % 51.7 % [facility] Neutrophil Absolute 2.83 1.70 - 6.10 x10(3)/mc L [facility] Lymph % 20.3 % [facility] Lymphocytes Abs 1.1 0.9 - 3.2 x10(3)/mc L [facility] Monocyte % 17.0 % [facility] Monocyte Abs 0.9 0.3 - 0.9 x10(3)/mc L [facility] Eos % 9.0 % [facility] Eosinophils Abs 0.5(H) 0.0 - 0.4 x10(3)/mc L [facility] Basophil % 1.5 % [facility] Baso Absolute 0.1 0.0 - 0.1 x10(3)/mc L [facility] Immature Gran % 0.50 % [facility] Comment: Immature granulocytes(IG's)percentage and absolute count will include metamyelocytes, myelocytes, and promyelocytes. Blood smears from CBCs yielding IG's will be scanned manually for concordance. If this scan disagrees with the automated IG or if promyelocytes are noted, a manual differential will be performed. Immature Gran Absolute 0.03 0.00 - 0.04 x10(3)/mc L [facility] Blood 04/19/2023 4:00 AM EST 04/19/2023 4:16 AM EST Narrative Resulting Agency Comment Spec In Lab Milli Maria MD HEMATOLOGY ORDERABLE S Performing Organization Address City/[facility]/ZIP Co de Phone Number [facility] [place] [address] * (ABNORMAL) Hemogram (04/19/2023 4:00 AM EST) White Blood Cell 5.5 4.0 - 9.5 x10(3)/ L [facility] Red Blood Cell 2.88(L) 4.58 - 5.54 x10(6)/ L [facility] Hemoglobin 9.1(L) 13.7 - 16.5 g/dL [facility] Hematocrit 27.3(L) 40.5 - 48.5 % [facility] Mean Cell Volume 94.8(H) 82.9 - 93.1 fL [facility] Mean Cell Hemoglobin 31.6 27.5 - 32.1 pg [facility] Mean Cell Hemoglobin Concentration 33.3 32.0 - 35.7 g/dL [facility] Platelet 305 145 - 357 x10(3)/mc L [facility] RDW Standard Deviation 63.4(H) 36.0 - 45.0 fL [facility] RDW coefficient of variation 18.5(H) 11.4 - 13.8 % [facility] Mean Platelet Volume 9.6 7.6 - 12.9 fL [facility] NRBC% auto 0.0 % [facility] NRBC Absolute 0.000 0.000 - 0.000 x10(3)/mc L [facility] Blood 04/19/2023 4:00 AM EST 04/19/2023 4:16 AM EST Narrative Resulting Agency Comment Spec In Lab Milli Maria MD HEMATOLOGY ORDERABLE S Performing Organization Address City/[facility]/ZIP Co de Phone Number [facility] [place] [address] * Phosphorus (04/19/2023 4:00 AM EST) Phosphorus 3.9 2.5 - 4.5 mg/dL [facility] Blood 04/19/2023 4:00 AM EST 04/19/2023 4:16 AM EST Narrative Resulting Agency Comment Spec In Lab Tha Winters MD CHEMISTRY ORDERABLE S Performing Organization Address [facility] de Phone Number [facility] [place] [address] * Magnesium (04/19/2023 4:00 AM EST) Magnesium 0.79 0.69 - 1.07 mmol/L [facility] Blood 04/19/2023 4:00 AM EST 04/19/2023 4:16 AM EST Narrative Resulting Agency Comment Spec In Lab Tha Winters MD CHEMISTRY ORDERABLE S Performing Organization Address [facility] de Phone Number [facility] [place] [address] * (ABNORMAL) Basic Metabolic Panel (non-fasting) (04/19/2023 4:00 AM EST) Pathologist [facility] Glucose 144 65 - 199 mg/dL [facility] Comment:Diabetes: >=200 mg/d L plus symptoms Blood Urea Nitrogen 26(H) 10 - 20 mg/dL [facility] Creatinine 1.52(H) 0.80 - 1.50 mg/dL [facility] Sodium 136 135 - 145 mmol/L [facility] Potassium 4.5 3.5 - 5.0 mmol/L [facility] Comment: Please note: ??Patients with WBC >100,000 may have falsely elevated Potassium levels. ??For accurate Potassium quantification in these patients send serum separator tube (gold top) for subsequent determinations. ??Contact the Clinical Chemistry Laboratory if there are any questions. Chloride 106 98 - 107 mmol/L [facility] Carbon Dioxide 19(L) 22 - 31 mmol/L [facility] Anion Gap 11 5 - 15 mmol/L [facility] Calcium 8.8 8.5 - 10.5 mg/dL [facility] Est Glomerular Filtration Rate 50(L) >=60 mL/min/1. 73 m?? [facility] Comment: This patient's estimated GFR [...] and symptoms in addition to eGFR. Blood 04/19/2023 4:00 AM EST 04/19/2023 4:16 AM EST Narrative Resulting Agency Comment Spec In Lab Tha Winters MD CHEMISTRY ORDERABLE S Performing Organization Address [facility]/ZIP Co de Phone Number [facility] [place] [address] * POCT Glucose (04/19/2023 3:54 AM EST) Glucose, POC 153 65 - 199 mg/dL [facility] Comment: Supplemental ranges: <140 mg/dL before meals <180 mg/dL all other times of the day Blood 04/19/2023 3:54 AM EST 04/19/2023 3:54 AM EST Sidney Maldonado MD POINT OF CARE TEST O RDERABLES [facility] [place] [place] [address] * POCT Glucose (04/18/2023 11:24 PM EST) Glucose, POC 135 65 - 199 mg/dL [facility] Comment: Supplemental ranges: <140 mg/dL before meals <180 mg/dL all other times of the day Blood 04/18/2023 11:2 4 PM EST 04/18/2023 11:24 PM EST Sidney Maldonado MD POINT OF CARE TEST O DANIEL Performing Organization Address [facility] Co de Phone Number [facility] [place] [address] * POCT Glucose (04/18/2023 8:17 PM EST) Glucose, POC 178 65 - 199 mg/dL [facility] Comment: Supplemental ranges: <140 mg/dL before meals <180 mg/dL all other times of the day Blood 04/18/2023 8:17 PM EST 04/18/2023 8:17 PM EST Sidney Maldonado MD POINT OF CARE TEST O DANIEL Performing Organization Address [facility] Co de Phone Number [facility] [place] [address] * POCT Glucose (04/18/2023 4:29 PM EST) Glucose, POC 124 65 - 199 mg/dL [facility] Comment: Supplemental ranges: <140 mg/dL before meals <180 mg/dL all other times of the day Blood 04/18/2023 4:29 PM EST 04/18/2023 4:29 PM EST Sidney Maldonado MD POINT OF CARE TEST O DANIEL Performing Organization Address [facility] Co de Phone Number [facility] [place] [address] * EKG 12 Lead (04/18/2023 12:34 PM EST) Ventricular rate 68 BPM MUSE SYSTEM Atrial Rate 68 BPM MUSE SYSTEM P-R Interval 124 ms MUSE SYSTEM QRS Duration 98 ms MUSE SYSTEM Q-T Interval 440 ms MUSE SYSTEM QTC Calculated (Bezet) 467 ms MUSE SYSTEM Calculated P [place] 49 degrees MUSE SYSTEM Calculated R [place] 51 degrees MUSE SYSTEM Calculated T [place] -106 degrees MUSE SYSTEM INTERPRETATION Normal sinus rhythm ST & T wave abnormality, consider anterolateral ischemia Prolonged QT Abnormal ECG When compared with ECG of 13-APR-2023 22:01, No significant change was found Confirmed by MD Jerome, Pancho Carver ([id number]) on 04/23/2023 10:45:27 PM MUSE SYSTEM 04/18/2023 12:3 4 PM EST 04/23/2023 10:45 PM EST Sidney Maldonado MD ECG ORDERABLES MUSE SYSTEM * POCT Glucose (04/18/2023 12:26 PM EST) Glucose, POC 145 65 - 199 mg/dL [facility] Comment: Supplemental ranges: <140 mg/dL before meals <180 mg/dL all other times of the day Blood 04/18/2023 12:2 6 PM EST 04/18/2023 12:26 PM EST Sidney Maldonado MD POINT OF CARE TEST O RDERABLES Performing Organization Address [facility] de Phone Number [facility] [place] [address] * CARDIAC CATHETERIZATION (04/18/2023 12:15 PM EST) Anatomical Region Laterality Modality Other Narrative 04/19/2023 4:47 PM EST ?[facility] ? Cardiac Catheterization/Intervention Report ? Patient Name: Massimo, Huber Kennedy. ? Procedure Date: 04/18/2023 ? A #: [id number] ? Primary Physician: Citlalli Esposito I ? Case #: [id number] ? File Name: [id number] ? Catheterization Order Number: [id number] ? [facility] ? Final Report [place], [place] ? Patient Name: ? Huber Mosher ?ID#: ?[id number] ? : ?1955 ? Procedure Date: ? April 18, 2023 ?Case #: ? [id number] ? Room: ? 5 ? Case Physician: ? Citlalli Esposito M.D. ? Start: ?08:55 ?Fellow: ? Puma Hernandez M.D. ?Admission: ??04/13/2023 ? Referring Physician: ??Roman Barajas M.D. ? Procedures: ?* Coronary Angiography ?* Left Heart Catheterization ?* Coronary Ultrasound ?* Right Heart Catheterization ?* Oximetry ?* Coronary Angioplasty ?* Coronary Stent Insertion ? History ?Huber Mosher is a 67 year old man. He has hypertension and a ?family history of coronary artery disease. The patient's smoking status ?is Former. He has hypercholesterolemia managed with lipid therapy. 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 He has sequelae from ?diabetes. The patient has a prior history of coronary artery disease. He ?is status post a recent non-ST elevation myocardial infarction. The ?patient has a history of an ejection fraction less than or equal to 35%. ?He has a history of CHF. The CHF is NYHA Functional Class III and is ?classified as Systolic. He has a history of carotid artery disease, a ?history of transient ischemic attacks and a calcified ascending aorta. ?The patient also has a history of cancer. Prior to the initiation of this ?procedure, the patient was designated as ASA Class III. The [facility] clinical ?frailty scale is 5: Mildly Frail. ? Diagnostic Tests: ?Prior Coronary Angiography: ? Prior coronary angiography was performed on 04/14/2023 and showed ? obstructive CAD. LV ejection fraction within 6 months is 29%. ?Electrocardiography: ? EKG was assessed by ECG. EKG was Normal. ?Medications Prior to Procedure: ? Angiotensin Converting Enzyme Inhibitor, Aspirin, Beta Chel and ? Statin. ? Indications for Diagnostic Cath: ?The priority of the diagnostic procedure was Urgent. The indication for ?the laborer car barn visit is ACS greater than 24 hrs. Chest pain symptom ?assessment was: Typical Angina. ? Technique: ?A 7Fr sheath was inserted in the right femoral artery utilizing the ?Seldinger technique. A 6Fr sheath was inserted in the right femoral vein ?utilizing the Seldinger technique. The left coronary artery was injected ?utilizing a 7Fr EBU 3.75 catheter. Right heart catheterization was ?performed utilizing a 6Fr BALLOON WEDGE catheter. Coronary angioplasty ?and coronary stent insertion were performed and the equipment utilized ?will be described in the intervention summary section. 15,000 units of ?heparin were administered. A total of 200cc of Omnipaque were opened, ?105cc of Omnipaque were administered and 95cc of Omnipaque were wasted. ?Radiation: Fluoro time was 47.1 minutes, dose area product was 105.00 ?Gy/cm2 and air kerma was 2,735 mGY. See the case log for additional ?details. ?The patient received the following medications prior to and during the ?procedure: ? Unfractionated Heparin and Clopidogrel. ? Hemodynamics: ?Right Heart Pressures ? Resting: ? Syst Diast ? EDP ?a ?v ? m ?RA ? 2 ?1 ? 1 ?RV 35 ?1 ?PA 35 ?15 ?25 ?PCW ?20 ?25 ?15 ? Hemodynamic Profile: ?Profile 1 ?CO ? 6.46 ?CI ? 3.20 ?TSR ?830 ?SVR ?817 ?TPR ?310 ?PVR ?124 ?Technique ?Estimated Mark ?Left Heart Pressures ? Resting: ? Syst Diast ? EDP ?a ?v ? m ?Ao 100 ?? 46 ?67 ? Oximetry: ?Location ? %Sat ?Location ?%Sat ?Main Pulmonary Artery ??61.0 ?femoral arterial sat ?95.0 ? Coronary Angiography: ?Dominance: Right ?Left Main ? There was an 80% single discrete stenosis of the distal segment of ? the left main artery. ??The left main was large. ?Left Anterior Descending ? There was an 80% long segmental stenosis of the ostial segment of ? the left anterior descending artery (LAD). ??The LAD was large. ??The ? mid segment of the LAD had a single discrete 80% stenosis. ??There ? also was an 80% long segmental stenosis of the distal segment of the ? LAD. ? There was a 70% single discrete stenosis of the ostial segment of ? the first diagonal branch (Diagonal 1) of the LAD. ??The Diagonal 1 ? was moderate in size. ?Left Circumflex ? There was a calcified single discrete total occlusion of the ? proximal segment of the left circumflex artery (LCX). ??The LCX was ? large. ?Right Coronary Artery ? This vessel was not injected. ? Intravascular Imaging/Physiology: ?Intravascular Ultrasound was performed in the proximal LCX using a 7 Fr ?EBU 3.75 guiding catheter and a 3.1 Fr Refinity 42 MHz catheter using ?auto 1 mm/sec pullback. ??Imaging was successful. ??Image quality was good. ?Indication: IVUS performed for pre intervention planning and post ?intervention assessment. ?IVUS performed prior to any vessel manipulation. ??IVUS performed after ?pre-dilation. ??IVUS performed after vessel manipulation. ?Findings Pre-Intervention: diffuse plaque. These measurements were ?performed after pre-dilation of the lesion. ?Findings Post-Intervention: The stent was well expanded and apposed. ?Conclusions: stent/intervention appears optimized. ?Intravascular Ultrasound was performed in the ostial LAD using a 7 Fr EBU ?3.75 guiding catheter and a 3.1 Fr Refinity 42 MHz catheter. ??Imaging was ?successful. ??Image quality was good. ?Indication: IVUS performed for pre intervention planning and post ?intervention assessment. ?IVUS performed after pre-dilation. ?Findings Pre-Intervention: diffuse plaque. These measurements were ?performed after pre-dilation of the lesion. ?Findings Post-Intervention: The stent was well expanded and apposed. ?Conclusions: stent/intervention appears optimized. ?Intravascular Ultrasound was performed in the distal LM using a 7 Fr EBU ?3.75 guiding catheter and a 3.1 Fr Refinity 42 MHz catheter. ??Imaging was ?successful. ??Image quality was good. ?Indication: IVUS performed for pre intervention planning and post ?intervention assessment. ?Findings Pre-Intervention: diffuse plaque. ?Findings Post-Intervention: The stent was well expanded and apposed. ?Conclusions: stent/intervention appears optimized. ? Indication for Intervention: ?Coronary intervention was indicated for primary therapy for an acute ?myocardial infarction. The priority for the procedure was Urgent. The ?NCDR indication for the procedure was NSTE-ACS. LVEF within one week was ?29%. Syntax Score was Intermediate. Initial PCI was performed for ?multivessel disease. PCI is performed after surgical consult and Surgery ?Recommended, Patient/Family Declined. Right Heart catheterization was ?initiated for Acute systolic (congestive) heart failure (I50.21). ? Intervention Summary: ?Left Main Artery ? Distal 80% ? Angioplasty was performed on the 80% stenosis in the distal ? segment of the left main. This was a de angélica lesion. According ? to the ACC/AHA classification system, this lesion was a type C ? high risk lesion. A guidewire was placed across this lesion. ? Vessel flow pre intervention was MAGUE 3. Lesion length was ? 10mm. This lesion was contiguous with LAD-ostial. ? Angioplasty was accomplished through a 7 Fr EBU 3.75 guide ? utilizing a NC EUPHORA 15 MM balloon with a maximum size of ? 3.00mm and a maximum inflation pressure of 18 atmospheres. ? The final outcome was defined as successful. A coronary ? arteriolar vasodilator was administered as part of the ? intervention on this lesion. There was no residual stenosis ? following this intervention. The final MAGUE flow was 3. ?Left Anterior Descending Artery ? Ostial 80% ? Stent insertion was performed on the 80% stenosis in the ? ostial segment of the LAD. This was a de angélica lesion. This ? lesion was designated a type C high risk lesion based on ? ACC/AHA classification system. Primary prevention of ? restenosis was the indication for stent insertion. A guidewire ? was placed across this lesion. Vessel flow pre intervention ? was MAGUE 3. Lesion length was 15mm. This lesion was severely ? calcified. ? Stent insertion was accomplished through a 6 Fr. EBU 3.75 ? guide. ??The lesion was predilated with a 3.50mm ANGIOSCULPT 15 ? MM balloon with a maximum inflation pressure of 18 ? atmospheres. ??A premounted 3.50 x 26 mm Hebert Manning (ARJUN) ? was deployed with a maximum inflation pressure of 12 ? atmospheres. ??Following stent deployment, the lesion was ? dilated using a 4.00mm NC EUPHORA 08 MM balloon with a maximum ? inflation pressure of 14 atmospheres. ? The final outcome was defined as successful. A coronary ? arteriolar vasodilator was administered as part of the ? intervention on this lesion. The residual stenosis following ? this intervention was 10%. The final MAGUE flow was 3. ?Left Circumflex Artery ? Proximal 100% ? Stent insertion was performed on the total occlusion in the ? proximal segment of the LCX. This was a chronic total ? occlusion lesion. According to the ACC/AHA classification ? system, this lesion was a type C high risk lesion. Primary ? prevention of restenosis was the indication for stent ? insertion. A guidewire was placed across this lesion. Vessel ? flow pre intervention was MAGUE 0. Lesion length was 15mm. ? Stent insertion was accomplished through a 7 Fr. EBU 3.75 ? guide. ??The lesion was predilated with a 3.00mm NC EUPHORA 20 ? MM balloon with a maximum inflation pressure of 16 ? atmospheres. ??A premounted 3.00 x 34 mm Buffalo Manning (ARJUN) ? was deployed with a maximum inflation pressure of 12 ? atmospheres. ??Following stent deployment, the lesion was ? dilated using a 2.75mm NC EUPHORA 15 MM balloon with a maximum ? inflation pressure of 16 atmospheres. ? The final outcome was defined as successful. There was no ? residual stenosis following this intervention. The final MAGUE ? flow was 3. ? Vascular Access: ?Vascular Access Angiogram: ? A selective angiogram at the right femoral artery revealed mild ? diffuse disease. ?Vascular Ultrasound: ? Ultrasound of the right femoral artery was used to guide access and ? showed vessel patent with mild disease. ?Vascular Access Management: ? A 6 Fr Perclose was deployed at the right femoral artery access ? site. Manual Compression of the right femoral artery access site was ? performed. ? Manual Compression of the right femoral vein access site was ? performed. ? Dual Antiplatelet (DAPT) Recommendations: ?Drug eluting stent (ARJUN) inserted. ?P2Y12 Loading dose administered prior to arrival in the laborer car barn. ?Recommended anti-platelet/anti-thrombotic regimen: ?Continue aspirin 81 mg daily for 12 months then stop. ?Continue clopidogrel 75 mg daily for indefinitely. ?These recommendations are made at the time of the intervention. Patient ?and provider preferences or a changing clinical situation may require ?modification of this regimen. Consult [facility] Interventional Cardiology for ?questions. ?This patient has [...] against any medical treatment. Consult ?http://tools.acc.org/DAPTriskapp/#!/content/calculator/ or [facility] ?Interventional Cardiology for questions ? Conclusions: ?* Obstructive disease of the LM, LAD and LCX ?* Mild pulmonary hypertension ?* Successful stent insertion of the ostial LAD lesion ?* Successful angioplasty of the distal LM lesion ?* Successful stent insertion of the proximal LCX lesion ?* See Dual Antiplatelet (DAPT) Recommendations above ? Complications/Events: ?The patient had no complications during these procedures. ?The attending physician was present for the entire procedure. ?Dr. Citlalli Esposito M.D. was present during the moderate sedation ?intraservice time as documented by the sedation nurse. ??Case time = 02:46. ?Dr. Citlalli Esposito M.D. performed the coronary angiography, left heart ?catheterization, stent insertion-coronary, right heart catheterization, ?oximetry, IVUS # coronary and angioplasty-coronary. ? Citlalli Esposito M.D. ? Electronically Signed by: Citlalli Esposito M.D. ? Report Finalized: 04/19/2023 ??16:42 ? Procedure Note Citlalli Esposito MD - 04/19/2023 [facility] Cardiac Catheterization/Intervention Report Patient Name: Huber Mosher Procedure Date: 04/18/2023 A #: [id number] Primary Physician: Citlalli Esposito I Case #: [id number] File Name: [id number] Catheterization Order Number: [id number] [facility] FinalReport [place], [place] Patient Name: Hbuer Gordonclaritza ID#:[id number] :[id number] Procedure Date: April 18, 2023 Case #: [id number] Room: 5 Case Physician: Citlalli Esposito M.D. Start: 08:55 Fellow: Puma Hernandez M.D. Admission:04/13/2023 Referring Physician: Roman W Eyal, M.D. Procedures: * Coronary Angiography * Left Heart Catheterization * Coronary Ultrasound * Right Heart Catheterization * Oximetry * Coronary Angioplasty * Coronary Stent Insertion History Huber Mosher is a 67 year old man. He has hypertension and a family history of coronary artery disease. The patient's smokingstatus is Former. He has hypercholesterolemia managed with lipid therapy.The patient has insulin dependent diabetes mellitus. He has sequelaefrom diabetes. The patient has a prior history of coronary arterydisease. He is status post a recent non-ST elevation myocardial infarction. The patient has a history of an ejection fraction less than or equal to35%. He has a history of CHF. The CHF is NYHA Functional Class III and is classified as Systolic. He has a history of carotid artery disease,a history of transient ischemic attacks and a calcified ascendingaorta. The patient also has a history of cancer. Prior to the initiation ofthis procedure, the patient was designated as ASA Class III. The CSHAclinical frailty scale is 5: Mildly Frail. Diagnostic Tests: Prior Coronary Angiography: Prior coronary angiography was performed on 04/14/2023 andshowed obstructive CAD. LV ejection fraction within 6 months is 29%. Electrocardiography: EKG was assessed by ECG. EKG was Normal. Medications Prior to Procedure: Angiotensin Converting Enzyme Inhibitor, Aspirin, Beta Blockerand Statin. Indications for Diagnostic Cath: The priority of the diagnostic procedure was Urgent. The indicationfor the laborer car barn visit is ACS greater than 24 hrs. Chest pain symptom assessment was: Typical Angina. Technique: A 7Fr sheath was inserted in the right femoral artery utilizing the Seldinger technique. A 6Fr sheath was inserted in the right femoralvein utilizing the Seldinger technique. The left coronary artery wasinjected utilizing a 7Fr EBU 3.75 catheter. Right heart catheterization was performed utilizing a 6Fr BALLOON WEDGE catheter. Coronaryangioplasty and coronary stent insertion were performed and the equipmentutilized will be described in the intervention summary section. 15,000 unitsof heparin were administered. A total of 200cc of Omnipaque wereopened, 105cc of Omnipaque were administered and 95cc of Omnipaque werewasted. Radiation: Fluoro time was 47.1 minutes, dose area product caf164.00 Gy/cm2 and air kerma was 2,735 mGY. See the case log for additional details. The patient received the following medications prior to and duringthe procedure: Unfractionated Heparin and Clopidogrel. Hemodynamics: Right Heart Pressures Resting: Syst Diast EDP a v m RA 2 1 1 RV 35 1 PA 35 15 25 PCW 20 25 15 Hemodynamic Profile: Profile 1 CO 6.46 CI 3.20 TSR 830 SVR 817 TPR 310 PVR 124 Technique Estimated Mark Left Heart Pressures Resting: Syst Diast EDP a v m Ao 100 46 67 Oximetry: Location %Sat Location %Sat Main Pulmonary Artery 61.0 femoral arterial sat 95.0 Coronary Angiography: Dominance: Right Left Main There was an 80% single discrete stenosis of the distal segmentof the left main artery. The left main was large. Left Anterior Descending There was an 80% long segmental stenosis of the ostial segmentof the left anterior descending artery (LAD). The LAD was large.The mid segment of the LAD had a single discrete 80% stenosis.There also was an 80% long segmental stenosis of the distal segmentof the LAD. There was a 70% single discrete stenosis of the ostial segmentof the first diagonal branch (Diagonal 1) of the LAD. TheDiagonal 1 was moderate in size. Left Circumflex There was a calcified single discrete total occlusion of the proximal segment of the left circumflex artery (LCX). The LCXwas large. Right Coronary Artery This vessel was not injected. Intravascular Imaging/Physiology: Intravascular Ultrasound was performed in the proximal LCX using a 7Fr EBU 3.75 guiding catheter and a 3.1 Fr Refinity 42 MHz catheterusing auto 1 mm/sec pullback. Imaging was successful. Image quality wasgood. Indication: IVUS performed for pre intervention planning and post intervention assessment. IVUS performed prior to any vessel manipulation. IVUS performedafter pre-dilation. IVUS performed after vessel manipulation. Findings Pre-Intervention: diffuse plaque. These measurements were performed after pre-dilation of the lesion. Findings Post-Intervention: The stent was well expanded and apposed. Conclusions: stent/intervention appears optimized. Intravascular Ultrasound was performed in the ostial LAD using a 7Fr EBU 3.75 guiding catheter and a 3.1 Fr Refinity 42 MHz catheter.Imaging was successful. Image quality was good. Indication: IVUS performed for pre intervention planning and post intervention assessment. IVUS performed after pre-dilation. Findings Pre-Intervention: diffuse plaque. These measurements were performed after pre-dilation of the lesion. Findings Post-Intervention: The stent was well expanded and apposed. Conclusions: stent/intervention appears optimized. Intravascular Ultrasound was performed in the distal LM using a 7 FrEBU 3.75 guiding catheter and a 3.1 Fr Refinity 42 MHz catheter.Imaging was successful. Image quality was good. Indication: IVUS performed for pre intervention planning and post intervention assessment. Findings Pre-Intervention: diffuse plaque. Findings Post-Intervention: The stent was well expanded and apposed. Conclusions: stent/intervention appears optimized. Indication for Intervention: Coronary intervention was indicated for primary therapy for an acute myocardial infarction. The priority for the procedure was Urgent.The NCDR indication for the procedure was NSTE-ACS. LVEF within one weekwas 29%. Syntax Score was Intermediate. Initial PCI was performed for multivessel disease. PCI is performed after surgical consult andSurgery Recommended, Patient/Family Declined. Right Heart catheterizationwas initiated for Acute systolic (congestive) heart failure (I50.21). Intervention Summary: Left Main Artery Distal 80% Angioplasty was performed on the 80% stenosis in thedistal segment of the left main. This was a de angélica lesion.According to the ACC/AHA classification system, this lesion was atype C high risk lesion. A guidewire was placed across thislesion. Vessel flow pre intervention was MAGUE 3. Lesion lengthwas 10mm. This lesion was contiguous with LAD-ostial. Angioplasty was accomplished through a 7 Fr EBU 3.75guide utilizing a NC EUPHORA 15 MM balloon with a maximum sizeof 3.00mm and a maximum inflation pressure of 18atmospheres. The final outcome was defined as successful. A coronary arteriolar vasodilator was administered as part of the intervention on this lesion. There was no residualstenosis following this intervention. The final MAGUE flow was 3. Left Anterior Descending Artery Ostial 80% Stent insertion was performed on the 80% stenosis in the ostial segment of the LAD. This was a de angélica lesion.This lesion was designated a type C high risk lesion based on ACC/AHA classification system. Primary prevention of restenosis was the indication for stent insertion. Aguidewire was placed across this lesion. Vessel flow preintervention was MAGUE 3. Lesion length was 15mm. This lesion wasseverely calcified. Stent insertion was accomplished through a 6 Fr. EBU 3.75 guide. The lesion was predilated with a 3.50mmANGIOSCULPT 15 MM balloon with a maximum inflation pressure of 18 atmospheres. A premounted 3.50 x 26 mm Hebert Manning(ARJUN) was deployed with a maximum inflation pressure of 12 atmospheres. Following stent deployment, the lesion was dilated using a 4.00mm NC EUPHORA 08 MM balloon with amaximum inflation pressure of 14 atmospheres. The final outcome was defined as successful. A coronary arteriolar vasodilator was administered as part of the intervention on this lesion. The residual stenosisfollowing this intervention was 10%. The final MAGUE flow was 3. Left Circumflex Artery Proximal 100% Stent insertion was performed on the total occlusion inthe proximal segment of the LCX. This was a chronic total occlusion lesion. According to the ACC/AHA classification system, this lesion was a type C high risk lesion.Primary prevention of restenosis was the indication for stent insertion. A guidewire was placed across this lesion.Vessel flow pre intervention was MAGUE 0. Lesion length was 15mm. Stent insertion was accomplished through a 7 Fr. EBU 3.75 guide. The lesion was predilated with a 3.00mm NCEUPHORA 20 MM balloon with a maximum inflation pressure of 16 atmospheres. A premounted 3.00 x 34 mm Buffalo Manning(ARJUN) was deployed with a maximum inflation pressure of 12 atmospheres. Following stent deployment, the lesion was dilated using a 2.75mm NC EUPHORA 15 MM balloon with amaximum inflation pressure of 16 atmospheres. The final outcome was defined as successful. There was no residual stenosis following this intervention. The finalTIMI flow was 3. Vascular Access: Vascular Access Angiogram: A selective angiogram at the right femoral artery revealed mild diffuse disease. Vascular Ultrasound: Ultrasound of the right femoral artery was used to guide accessand showed vessel patent with mild disease. Vascular Access Management: A 6 Fr Perclose was deployed at the right femoral artery access site. Manual Compression of the right femoral artery accesssite was performed. Manual Compression of the right femoral vein access site was performed. Dual Antiplatelet (DAPT) Recommendations: Drug eluting stent (ARJUN) inserted. P2Y12 Loading dose administered prior to arrival in the laborer car barn. Recommended anti-platelet/anti-thrombotic regimen: Continue aspirin 81 mg daily for 12 months then stop. Continue clopidogrel 75 mg daily for indefinitely. These recommendations are made at the time of the intervention.Patient and provider preferences or a changing clinical situation mayrequire modification of this regimen. Consult [facility] Interventional Cardiologyfor questions. This patient has a [...] or against any medical treatment.Consult http://tools.acc.org/DAPTriskapp/#!/content/calculator/ or [facility] Interventional Cardiology for questions Conclusions: * Obstructive disease of the LM, LAD and LCX * Mild pulmonary hypertension * Successful stent insertion of the ostial LAD lesion * Successful angioplasty of the distal LM lesion * Successful stent insertion of the proximal LCX lesion * See Dual Antiplatelet (DAPT) Recommendations above Complications/Events: The patient had no complications during these procedures. The attending physician was present for the entire procedure. Dr. Citlalli Esposito M.D. was present during the moderate sedation intraservice time as documented by the sedation nurse. Case time =02:46. Dr. Citlalli Esposito M.D. performed the coronary angiography, leftheart catheterization, stent insertion-coronary, right heartcatheterization, oximetry, IVUS # coronary and angioplasty-coronary. Citlalli Esposito M.D. Electronically Signed by: Citlalli Esposito M.D. Report Finalized: 04/19/2023 16:42 Citlalli Charles MD CARDIAC CATH ORDERA BLES * POCT Glucose (04/18/2023 7:30 AM EST) [facility] Glucose, POC 165 65 - 199 mg/dL [facility] Comment: Supplemental ranges: <140 mg/dL before meals <180 mg/dL all other times of the day Blood 04/18/2023 7:30 AM EST 04/18/2023 7:30 AM EST Sidney Maldonado MD POINT OF CARE TEST O RDERABART Performing Organization Address City/[facility] Co de Phone Number [facility] [place] [place] [address] * POCT Glucose (04/18/2023 3:39 AM EST) Glucose, POC 157 65 - 199 mg/dL [facility] Comment: Supplemental ranges: <140 mg/dL before meals <180 mg/dL all other times of the day Blood 04/18/2023 3:39 AM EST 04/18/2023 3:39 AM EST Sidney Maldonado MD POINT OF CARE TEST O DANIEL Performing Organization Address [facility] Co de Phone Number [facility] [place] [address] * (ABNORMAL) Differential, Automated (04/18/2023 3:30 AM EST) Neutrophil % 33.9 % [facility] Neutrophil Absolute 1.41(L) 1.70 - 6.10 x10(3)/mc L [facility] Lymph % 32.2 % [facility] Lymphocytes Abs 1.3 0.9 - 3.2 x10(3)/mc L [facility] Monocyte % 18.3 % [facility] Monocyte Abs 0.8 0.3 - 0.9 x10(3)/mc L [facility] Eos % 13.7 % [facility] Eosinophils Abs 0.6(H) 0.0 - 0.4 x10(3)/mc L [facility] Basophil % 1.9 % [facility] Baso Absolute 0.1 0.0 - 0.1 x10(3)/mc L [facility] Immature Gran % 0.00 % [facility] Comment: Immature granulocytes(IG's)percentage and absolute count will include metamyelocytes, myelocytes, and promyelocytes. Blood smears from CBCs yielding IG's will be scanned manually for concordance. If this scan disagrees with the automated IG or if promyelocytes are noted, a manual differential will be performed. Immature Gran Absolute 0.00 0.00 - 0.04 x10(3)/mc L [facility] Blood 04/18/2023 3:30 AM EST 04/18/2023 3:55 AM EST Narrative Resulting Agency Comment Spec In Lab Milli Maria MD HEMATOLOGY ORDERABLE S [facility] [place] [address] * (ABNORMAL) Hemogram (04/18/2023 3:30 AM EST) White Blood Cell 4.2 4.0 - 9.5 x10(3)/[facility] [address] [facility] Red Blood Cell 2.91(L) 4.58 - 5.54 x10(6)/[facility] [address] [facility] Hemoglobin 9.0(L) 13.7 - 16.5 g/dL [facility] Hematocrit 27.1(L) 40.5 - 48.5 % [facility] Mean Cell Volume 93.1 82.9 - 93.1 fL [facility] Mean Cell Hemoglobin 30.9 27.5 - 32.1 pg [facility] Mean Cell Hemoglobin Concentration 33.2 32.0 - 35.7 g/dL [facility] Platelet 321 145 - 357 x10(3)/ L [facility] RDW Standard Deviation 61.3(H) 36.0 - 45.0 fL [facility] RDW coefficient of variation 18.2(H) 11.4 - 13.8 % [facility] Mean Platelet Volume 9.6 7.6 - 12.9 fL [facility] NRBC% auto 0.0 % [facility] NRBC Absolute 0.000 0.000 - 0.000 x10(3)/ L [facility] Blood 04/18/2023 3:30 AM EST 04/18/2023 3:55 AM EST Narrative Resulting Agency Comment Spec In Lab Milli Maria MD HEMATOLOGY ORDERABLE S Performing Organization Address City/[facility]/ZIP Co de Phone Number [facility] [place] [address] * Heparin (unfractionated) Level (04/18/2023 3:30 AM EST) UF Heparin 0.36 IU/mL [facility] Comment: Heparin (anti-Xa) levels should be determined in a plasma sample that has been drawn 6 hours after a dose change to approximate steady-state for continuous heparin infusions. Indication specific Heparin (anti-Xa) levels based on order set selection: Acute DVT or PE treatment: 0.3 ? 0.7 IU/mL Thrombosis Prevention (eg. atrial fibrillation, stevenson-procedural bridging, mechanical valves): 0.3 ? 0.7 IU/mL Acute Coronary Syndrome: 0.3 ? 0.7 IU/mL Stroke Indications: 0.3 ? 0.5 IU/mL Ultra-low intensity (select indications in cardiac surgery): 0.1 ? 0.3 IU/mL Blood 04/18/2023 3:30 AM EST 04/18/2023 3:54 AM EST Narrative Resulting Agency Comment Spec In Lab Tha Winters MD HEMATOLOGY ORDERABL ES Performing Organization Address City/[facility]/ZIP Co de Phone Number [facility] [place] [address] * Phosphorus (04/18/2023 3:30 AM EST) Phosphorus 3.6 2.5 - 4.5 mg/dL [facility] Blood 04/18/2023 3:30 AM EST 04/18/2023 3:54 AM EST Narrative Resulting Agency Comment Spec In Lab Tha Winters MD CHEMISTRY ORDERABLE S Performing Organization Address City/[facility]/ZIP Co de Phone Number [facility] [place] [place] [address] * Magnesium (04/18/2023 3:30 AM EST) Magnesium 0.83 0.69 - 1.07 mmol/L [facility] Blood 04/18/2023 3:30 AM EST 04/18/2023 3:54 AM EST Narrative Resulting Agency Comment Spec In Lab Tha Winters MD CHEMISTRY ORDERABLE S [facility] [place] [place] [address] * (ABNORMAL) Basic Metabolic Panel (non-fasting) (04/18/2023 3:30 AM EST) Glucose 150 65 - 199 mg/dL [facility] Comment:Diabetes: >=200 mg/d L plus symptoms Blood Urea Nitrogen 30(H) 10 - 20 mg/dL [facility] Creatinine 1.58(H) 0.80 - 1.50 mg/dL [facility] Sodium 137 135 - 145 mmol/L [facility] Potassium 4.5 3.5 - 5.0 mmol/L [facility] Comment: Please note: ??Patients with WBC >100,000 may have falsely elevated Potassium levels. ??For accurate Potassium quantification in these patients send serum separator tube (gold top) for subsequent determinations. ??Contact the Clinical Chemistry Laboratory if there are any questions. Chloride 105 98 - 107 mmol/L [facility] Carbon Dioxide 20(L) 22 - 31 mmol/L [facility] Anion Gap 12 5 - 15 mmol/L [facility] Calcium 9.4 8.5 - 10.5 mg/dL [facility] Est Glomerular Filtration Rate 47(L) >=60 mL/min/1. 73 m?? [facility] Comment: This patient's estimated GFR [...] and symptoms in addition to eGFR. Blood 04/18/2023 3:30 AM EST 04/18/2023 3:54 AM EST Narrative Resulting Agency Comment Spec In Lab Tha Winters MD CHEMISTRY ORDERABLE S Performing Organization Address [facility] Co de Phone Number [facility] [place] [address] * POCT Glucose (04/17/2023 11:32 PM EST) Glucose, POC 157 65 - 199 mg/dL [facility] Comment: Supplemental ranges: <140 mg/dL before meals <180 mg/dL all other times of the day Blood 04/17/2023 11:3 2 PM EST 04/17/2023 11:32 PM EST Sidney Maldonado MD POINT OF CARE TEST O DANIEL Performing Organization Address [facility] Co de Phone Number [facility] [place] [address] * Transfuse RBC (04/17/2023 7:45 PM EST) Sidney Maldonado MD NURSING TREATMENT OR DERABLES - BLOOD ADMIN * Transfuse RBC (04/17/2023 7:45 PM EST) Sidney Maldonado MD NURSING TREATMENT OR DERABLES - BLOOD ADMIN * POCT Glucose (04/17/2023 7:31 PM EST) Glucose, POC 155 65 - 199 mg/dL [facility] Comment: Supplemental ranges: <140 mg/dL before meals <180 mg/dL all other times of the day Blood 04/17/2023 7:31 PM EST 04/17/2023 7:31 PM EST Sidney Maldonado MD POINT OF CARE TEST O DANIEL Performing Organization Address [facility] Co de Phone Number [facility] [place] [address] * (ABNORMAL) POCT Glucose (04/17/2023 4:10 PM EST) Glucose, POC 235(H) 65 - 199 mg/dL [facility] Comment: Supplemental ranges: <140 mg/dL before meals <180 mg/dL all other times of the day Blood 04/17/2023 4:10 PM EST 04/17/2023 4:10 PM EST Sidney Maldonado MD POINT OF CARE TEST O RDERABLES Performing Organization Address City/[facility]/ZIP Co de Phone Number [facility] [place] [address] * ABORH Recheck Status (04/17/2023 2:16 PM EST) ABORH Recheck Order Order Placed [facility] ABORH Type Recheck Completed [facility] Blood 04/17/2023 2:16 PM EST 04/17/2023 2:27 PM EST Narrative Resulting Agency Comment Spec In Lab Tomer Hernandez MD BLOOD BANK LAB ORDE ANKIT Performing Organization Address City/[facility] Co de Phone Number [facility] [place] [address] * Type and screen ([facility]/BOBBI) (04/17/2023 2:16 PM EST) ABORH Type A POSITIVE [facility] Patient BB History Not Found [facility] Expires at [id number] on: 04/20/2023 [facility] Ab Screen Interp Negative [facility] Blood 04/17/2023 2:16 PM EST 04/17/2023 2:16 PM EST Narrative [facility] - 04/17/2023 2:16 PM EST This Type and Screen result is only valid at the [facility] Resulting Agency Comment Spec In Lab Sidney Maldonado MD BLOOD BANK LAB ORDER CONCHITA Performing Organization Address City/[facility] Co de Phone Number [facility] [place] [address] * POCT Glucose (04/17/2023 10:47 AM EST) Glucose, POC 128 65 - 199 mg/dL [facility] Comment: Supplemental ranges: <140 mg/dL before meals <180 mg/dL all other times of the day Blood 04/17/2023 10:4 7 AM EST 04/17/2023 10:47 AM EST Sidney Maldonado MD POINT OF CARE TEST O RDERABART Performing Organization Address [facility] Co de Phone Number [facility] [place] [place] [address] * POCT Glucose (04/17/2023 7:40 AM EST) Glucose, POC 170 65 - 199 mg/dL [facility] Comment: Supplemental ranges: <140 mg/dL before meals <180 mg/dL all other times of the day Blood 04/17/2023 7:40 AM EST 04/17/2023 7:40 AM EST Sidney Maldonado MD POINT OF CARE TEST O SHERRONERABART Performing Organization Address [facility] de Phone Number [facility] [place] [address] * POCT Glucose (04/17/2023 3:25 AM EST) Glucose, POC 149 65 - 199 mg/dL [facility] Comment: Supplemental ranges: <140 mg/dL before meals <180 mg/dL all other times of the day Blood 04/17/2023 3:25 AM EST 04/17/2023 3:25 AM EST Sidney Maldonado MD POINT OF CARE TEST O RDERABART Performing Organization Address [facility] Co de Phone Number [facility] [place] [address] * (ABNORMAL) Differential, Automated (04/17/2023 3:15 AM EST) Neutrophil % 34.3 % [facility] Neutrophil Absolute 1.37(L) 1.70 - 6.10 x10(3)/mc L [facility] Lymph % 28.9 % [facility] Lymphocytes Abs 1.2 0.9 - 3.2 x10(3)/ L [facility] Monocyte % 20.1 % [facility] Monocyte Abs 0.8 0.3 - 0.9 x10(3)/ L [facility] Eos % 14.1 % [facility] Eosinophils Abs 0.6(H) 0.0 - 0.4 x10(3)/[facility] [address] [facility] Basophil % 2.3 % [facility] Baso Absolute 0.1 0.0 - 0.1 x10(3)/[facility] [address] [facility] Immature Gran % 0.30 % [facility] Comment: Immature granulocytes(IG's)percentage and absolute count will include metamyelocytes, myelocytes, and promyelocytes. Blood smears from CBCs yielding IG's will be scanned manually for concordance. If this scan disagrees with the automated IG or if promyelocytes are noted, a manual differential will be performed. Immature Gran Absolute 0.01 0.00 - 0.04 x10(3)/[facility] [address] [facility] Blood 04/17/2023 3:15 AM EST 04/17/2023 3:34 AM EST Narrative Resulting Agency Comment Spec In Lab Milli Maria MD HEMATOLOGY ORDERABLE S Performing Organization Address City/State/[facility] Co de Phone Number [facility] [place] [address] * (ABNORMAL) Hemogram (04/17/2023 3:15 AM EST) White Blood Cell 4.0 4.0 - 9.5 x10(3)/ L [facility] Red Blood Cell 2.54(L) 4.58 - 5.54 x10(6)/[facility] [address] [facility] Hemoglobin 8.0(L) 13.7 - 16.5 g/dL [facility] Hematocrit 23.9(L) 40.5 - 48.5 % [facility] Mean Cell Volume 94.1(H) 82.9 - 93.1 fL [facility] Mean Cell Hemoglobin 31.5 27.5 - 32.1 pg [facility] Mean Cell Hemoglobin Concentration 33.5 32.0 - 35.7 g/dL [facility] Platelet 299 145 - 357 x10(3)/mc L [facility] RDW Standard Deviation 59.7(H) 36.0 - 45.0 fL [facility] RDW coefficient of variation 17.5(H) 11.4 - 13.8 % [facility] Mean Platelet Volume 9.7 7.6 - 12.9 fL [facility] NRBC% auto 0.0 % [facility] NRBC Absolute 0.000 0.000 - 0.000 x10(3)/mc L [facility] Blood 04/17/2023 3:15 AM EST 04/17/2023 3:34 AM EST Narrative Resulting Agency Comment Spec In Lab Milli Maria MD HEMATOLOGY ORDERABLE S Performing Organization Address [facility] [place] [address] * Heparin (unfractionated) Level (04/17/2023 3:15 AM EST) UF Heparin 0.41 IU/mL [facility] Comment: Heparin (anti-Xa) levels should be determined in a plasma sample that has been drawn 6 hours after a dose change to approximate steady-state for continuous heparin infusions. Indication specific Heparin (anti-Xa) levels based on order set selection: Acute DVT or PE treatment: 0.3 ? 0.7 IU/mL Thrombosis Prevention (eg. atrial fibrillation, stevenson-procedural bridging, mechanical valves): 0.3 ? 0.7 IU/mL Acute Coronary Syndrome: 0.3 ? 0.7 IU/mL Stroke Indications: 0.3 ? 0.5 IU/mL Ultra-low intensity (select indications in cardiac surgery): 0.1 ? 0.3 IU/mL Blood 04/17/2023 3:15 AM EST 04/17/2023 3:34 AM EST Narrative Resulting Agency Comment Spec In Lab Tha Winters MD HEMATOLOGY ORDERABL ES Performing Organization Address [facility] Co de Phone Number [facility] [place] [address] * Phosphorus (04/17/2023 3:15 AM EST) Phosphorus 4.2 2.5 - 4.5 mg/dL [facility] Blood 04/17/2023 3:15 AM EST 04/17/2023 3:34 AM EST Narrative Resulting Agency Comment Spec In Lab Tha Winters MD CHEMISTRY ORDERABLE S Performing Organization Address [facility] de Phone Number [facility] [place] [place] [address] * Magnesium (04/17/2023 3:15 AM EST) Magnesium 0.85 0.69 - 1.07 mmol/L [facility] Blood 04/17/2023 3:15 AM EST 04/17/2023 3:34 AM EST Narrative Resulting Agency Comment Spec In Lab Tha Winters MD CHEMISTRY ORDERABLE S Performing Organization Address [facility] de Phone Number [facility] [place] [address] * (ABNORMAL) Basic Metabolic Panel (non-fasting) (04/17/2023 3:15 AM EST) Glucose 135 65 - 199 mg/dL [facility] Comment:Diabetes: >=200 mg/d L plus symptoms Blood Urea Nitrogen 33(H) 10 - 20 mg/dL [facility] Creatinine 1.75(H) 0.80 - 1.50 mg/dL [facility] Sodium 138 135 - 145 mmol/L [facility] Potassium 4.5 3.5 - 5.0 mmol/L [facility] Comment: Please note: ??Patients with WBC >100,000 may have falsely elevated Potassium levels. ??For accurate Potassium quantification in these patients send serum separator tube (gold top) for subsequent determinations. ??Contact the Clinical Chemistry Laboratory if there are any questions. Chloride 104 98 - 107 mmol/L [facility] Carbon Dioxide 22 22 - 31 mmol/L [facility] Anion Gap 12 5 - 15 mmol/L [facility] Calcium 8.8 8.5 - 10.5 mg/dL [facility] Est Glomerular Filtration Rate 42(L) >=60 mL/min/1. 73 m?? [facility] Comment: This patient's estimated GFR [...] and symptoms in addition to eGFR. Blood 04/17/2023 3:15 AM EST 04/17/2023 3:34 AM EST Narrative Resulting Agency Comment Spec In Lab Tha Winters MD CHEMISTRY ORDERABLE S Performing Organization Address [facility] Co de Phone Number [facility] [place] [address] * POCT Glucose (04/17/2023 12:06 AM EST) Glucose, POC 147 65 - 199 mg/dL [facility] Comment: Supplemental ranges: <140 mg/dL before meals <180 mg/dL all other times of the day Blood 04/17/2023 12:0 6 AM EST 04/17/2023 12:06 AM EST Sidney Maldonado MD POINT OF CARE TEST O RDERABLES Performing Organization Address [facility] Co de Phone Number [facility] [place] [address] * SCAN DOC: LAB (04/17/2023 12:00 AM EST) Narrative 04/17/2023 12:00 AM EST Ordered by an unspecified provider. Scanning Provider MEDIA MGR SCAN EXT O RDR/RSLT * (ABNORMAL) POCT Glucose (04/16/2023 8:15 PM EST) Glucose, POC 216(H) 65 - 199 mg/dL [facility] Comment: Supplemental ranges: <140 mg/dL before meals <180 mg/dL all other times of the day Blood 04/16/2023 8:15 PM EST 04/16/2023 8:15 PM EST Sidney Maldonado MD POINT OF CARE TEST O DANIEL [facility] [place] [address] * (ABNORMAL) POCT Glucose (04/16/2023 3:26 PM EST) Glucose, POC 226(H) 65 - 199 mg/dL [facility] Comment: Supplemental ranges: <140 mg/dL before meals <180 mg/dL all other times of the day Blood 04/16/2023 3:26 PM EST 04/16/2023 3:26 PM EST Sidney Maldonado MD POINT OF CARE TEST Henry SANCHEZ Performing Organization Address [facility] Co de Phone Number [facility] [place] [address] * POCT Glucose (04/16/2023 11:21 AM EST) Glucose, POC 156 65 - 199 mg/dL [facility] Comment: Supplemental ranges: <140 mg/dL before meals <180 mg/dL all other times of the day Blood 04/16/2023 11:2 1 AM EST 04/16/2023 11:21 AM EST Sidney Maldonado MD POINT OF CARE TEST Henry SANCHEZ Performing Organization Address City/[facility] Co de Phone Number [facility] [place] [address] * POCT Glucose (04/16/2023 7:33 AM EST) Glucose, POC 149 65 - 199 mg/dL [facility] Comment: Supplemental ranges: <140 mg/dL before meals <180 mg/dL all other times of the day Blood 04/16/2023 7:33 AM EST 04/16/2023 7:33 AM EST Sidney Maldonado MD POINT OF CARE [place] [address] * (ABNORMAL) Differential, Automated (04/16/2023 4:25 AM EST) Neutrophil % 36.3 % [facility] Neutrophil Absolute 1.57(L) 1.70 - 6.10 x10(3)/mc L [facility] Lymph % 30.6 % [facility] Lymphocytes Abs 1.3 0.9 - 3.2 x10(3)/mc L [facility] Monocyte % 20.0 % [facility] Monocyte Abs 0.9 0.3 - 0.9 x10(3)/mc L [facility] Eos % 10.6 % [facility] Eosinophils Abs 0.5(H) 0.0 - 0.4 x10(3)/mc L [facility] Basophil % 2.3 % [facility] Baso Absolute 0.1 0.0 - 0.1 x10(3)/mc L [facility] Immature Gran % 0.20 % [facility] Comment: Immature granulocytes(IG's)percentage and absolute count will include metamyelocytes, myelocytes, and promyelocytes. Blood smears from CBCs yielding IG's will be scanned manually for concordance. If this scan disagrees with the automated IG or if promyelocytes are noted, a manual differential will be performed. Immature Gran Absolute 0.01 0.00 - 0.04 x10(3)/mc L [facility] Blood 04/16/2023 4:25 AM EST 04/16/2023 4:37 AM EST Narrative Resulting Agency Comment Spec In Lab Milli Maria MD [place] [address] * (ABNORMAL) Hemogram (04/16/2023 4:25 AM EST) White Blood Cell 4.3 4.0 - 9.5 x10(3)/mc L [facility] Red Blood Cell 2.62(L) 4.58 - 5.54 x10(6)/mc L [facility] Hemoglobin 8.1(L) 13.7 - 16.5 g/dL [facility] Hematocrit 24.5(L) 40.5 - 48.5 % [facility] Mean Cell Volume 93.5(H) 82.9 - 93.1 fL [facility] Mean Cell Hemoglobin 30.9 27.5 - 32.1 pg [facility] Mean Cell Hemoglobin Concentration 33.1 32.0 - 35.7 g/dL [facility] Platelet 286 145 - 357 x10(3)/mc L [facility] RDW Standard Deviation 59.4(H) 36.0 - 45.0 fL [facility] RDW coefficient of variation 17.5(H) 11.4 - 13.8 % [facility] Mean Platelet Volume 9.6 7.6 - 12.9 fL [facility] NRBC% auto 0.0 % [facility] NRBC Absolute 0.000 0.000 - 0.000 x10(3)/mc L [facility] Blood 04/16/2023 4:25 AM EST 04/16/2023 4:37 AM EST Narrative Resulting Agency Comment Spec In Lab Milli Maria MD HEMATOLOGY ORDERABLE S Performing Organization Address City/State/[facility] Co de Phone Number [facility] [place] [address] * Heparin (unfractionated) Level (04/16/2023 4:25 AM EST) UF Heparin 0.37 IU/mL [facility] Comment: Heparin (anti-Xa) levels should be determined in a plasma sample that has been drawn 6 hours after a dose change to approximate steady-state for continuous heparin infusions. Indication specific Heparin (anti-Xa) levels based on order set selection: Acute DVT or PE treatment: 0.3 ? 0.7 IU/mL Thrombosis Prevention (eg. atrial fibrillation, stevenson-procedural bridging, mechanical valves): 0.3 ? 0.7 IU/mL Acute Coronary Syndrome: 0.3 ? 0.7 IU/mL Stroke Indications: 0.3 ? 0.5 IU/mL Ultra-low intensity (select indications in cardiac surgery): 0.1 ? 0.3 IU/mL Blood 04/16/2023 4:25 AM EST 04/16/2023 4:37 AM EST Narrative Resulting Agency Comment Spec In Lab Tha Winters MD HEMATOLOGY ORDERABL ES Performing Organization Address [facility] Co de Phone Number [facility] [place] [address] * (ABNORMAL) Phosphorus (04/16/2023 4:25 AM EST) Phosphorus 4.6(H) 2.5 - 4.5 mg/dL [facility] Blood 04/16/2023 4:25 AM EST 04/16/2023 4:37 AM EST Narrative Resulting Agency Comment Spec In Lab Tha Winters MD CHEMISTRY ORDERABLE S Performing Organization Address [facility] Co de Phone Number [facility] [place] [address] * Magnesium (04/16/2023 4:25 AM EST) Magnesium 0.81 0.69 - 1.07 mmol/L [facility] Blood 04/16/2023 4:25 AM EST 04/16/2023 4:37 AM EST Narrative Resulting Agency Comment Spec In Lab Tha Winters MD CHEMISTRY ORDERABLE S Performing Organization Address [facility] de Phone Number [facility] [place] [place] [address] * (ABNORMAL) Basic Metabolic Panel (non-fasting) (04/16/2023 4:25 AM EST) Glucose 144 65 - 199 mg/dL [facility] Comment:Diabetes: >=200 mg/d L plus symptoms Blood Urea Nitrogen 38(H) 10 - 20 mg/dL [facility] Creatinine 1.79(H) 0.80 - 1.50 mg/dL [facility] Sodium 135 135 - 145 mmol/L [facility] Potassium 4.2 3.5 - 5.0 mmol/L [facility] Comment: Please note: ??Patients with WBC >100,000 may have falsely elevated Potassium levels. ??For accurate Potassium quantification in these patients send serum separator tube (gold top) for subsequent determinations. ??Contact the Clinical Chemistry Laboratory if there are any questions. Chloride 102 98 - 107 mmol/L [facility] Carbon Dioxide 22 22 - 31 mmol/L [facility] Anion Gap 11 5 - 15 mmol/L [facility] Calcium 9.0 8.5 - 10.5 mg/dL [facility] Est Glomerular Filtration Rate 41(L) >=60 mL/min/1. 73 m?? [facility] Comment: This patient's estimated GFR [...] and symptoms in addition to eGFR. Blood 04/16/2023 4:25 AM EST 04/16/2023 4:37 AM EST Narrative Resulting Agency Comment Spec In Lab Tha Winters MD CHEMISTRY ORDERABLE S Performing Organization Address City/[facility]/ZIP Co de Phone Number [facility] [place] [place] [address] * POCT Glucose (04/16/2023 4:05 AM EST) Glucose, POC 162 65 - 199 mg/dL [facility] Comment: Supplemental ranges: <140 mg/dL before meals <180 mg/dL all other times of the day Blood 04/16/2023 4:05 AM EST 04/16/2023 4:05 AM EST Sidney Maldonado MD POINT OF CARE TEST O RDERABLES [facility] [place] [place] [address] * POCT Glucose (04/15/2023 11:50 PM EST) Glucose, POC 133 65 - 199 mg/dL [facility] Comment: Supplemental ranges: <140 mg/dL before meals <180 mg/dL all other times of the day Blood 04/15/2023 11:5 0 PM EST 04/15/2023 11:50 PM EST Sidney Maldonado MD POINT OF CARE TEST O RDERABART Performing Organization Address [facility] Co de Phone Number [facility] [place] [address] * POCT Glucose (04/15/2023 9:43 PM EST) Glucose, POC 130 65 - 199 mg/dL [facility] Comment: Supplemental ranges: <140 mg/dL before meals <180 mg/dL all other times of the day Blood 04/15/2023 9:43 PM EST 04/15/2023 9:43 PM EST Sidney Maldonado MD POINT OF CARE TEST O RDERABART Performing Organization Address [facility] Co de Phone Number [facility] [place] [place] [address] * (ABNORMAL) POCT Glucose (04/15/2023 7:37 PM EST) Glucose, POC 249(H) 65 - 199 mg/dL [facility] Comment: Supplemental ranges: <140 mg/dL before meals <180 mg/dL all other times of the day Blood 04/15/2023 7:37 PM EST 04/15/2023 7:37 PM EST Sidney Maldonado MD POINT OF CARE TEST O RDERABART Performing Organization Address City/[facility] Co de Phone Number [facility] [place] [place] [address] * Heparin (unfractionated) Level (04/15/2023 5:35 PM EST) UF Heparin 0.36 IU/mL [facility] Comment: Heparin (anti-Xa) levels should be determined in a plasma sample that has been drawn 6 hours after a dose change to approximate steady-state for continuous heparin infusions. Indication specific Heparin (anti-Xa) levels based on order set selection: Acute DVT or PE treatment: 0.3 ? 0.7 IU/mL Thrombosis Prevention (eg. atrial fibrillation, stevenson-procedural bridging, mechanical valves): 0.3 ? 0.7 IU/mL Acute Coronary Syndrome: 0.3 ? 0.7 IU/mL Stroke Indications: 0.3 ? 0.5 IU/mL Ultra-low intensity (select indications in cardiac surgery): 0.1 ? 0.3 IU/mL Blood 04/15/2023 5:35 PM EST 04/15/2023 5:43 PM EST Narrative Resulting Agency Comment Spec In Lab Tha Winters MD HEMATOLOGY ORDERABL ES Performing Organization Address City/[facility]/ZIP Co de Phone Number [facility] [place] [address] * POCT Glucose (04/15/2023 4:45 PM EST) [facility] Glucose, POC 186 65 - 199 mg/dL [facility] Comment: Supplemental ranges: <140 mg/dL before meals <180 mg/dL all other times of the day Blood 04/15/2023 4:45 PM EST 04/15/2023 4:45 PM EST Sidney Maldonado MD POINT OF CARE TEST O RDERABLES [facility] [place] [place] [address] * (ABNORMAL) POCT Glucose (04/15/2023 12:10 PM EST) Pathologist [facility] Glucose, POC 205(H) 65 - 199 mg/dL [facility] Comment: Supplemental ranges: <140 mg/dL before meals <180 mg/dL all other times of the day Blood 04/15/2023 12:1 0 PM EST 04/15/2023 12:10 PM EST Sidney Maldonado MD POINT OF CARE TEST O RDPRAVIN Performing Organization Address City/[facility] Co de Phone Number [facility] [place] [place] [address] * Heparin (unfractionated) Level (04/15/2023 12:00 PM EST) UF Heparin 0.36 IU/mL [facility] Comment: Heparin (anti-Xa) levels should be determined in a plasma sample that has been drawn 6 hours after a dose change to approximate steady-state for continuous heparin infusions. Indication specific Heparin (anti-Xa) levels based on order set selection: Acute DVT or PE treatment: 0.3 ? 0.7 IU/mL Thrombosis Prevention (eg. atrial fibrillation, stevenson-procedural bridging, mechanical valves): 0.3 ? 0.7 IU/mL Acute Coronary Syndrome: 0.3 ? 0.7 IU/mL Stroke Indications: 0.3 ? 0.5 IU/mL Ultra-low intensity (select indications in cardiac surgery): 0.1 ? 0.3 IU/mL Blood 04/15/2023 12:0 0 PM EST 04/15/2023 12:10 PM EST Narrative Resulting Agency Comment Spec In Lab Tha Winters MD HEMATOLOGY ORDERABL ES Performing Organization Address [facility] Co de Phone Number [facility] [place] [place] [address] * POCT Glucose (04/15/2023 7:45 AM EST) Glucose, POC 163 65 - 199 mg/dL [facility] Comment: Supplemental ranges: <140 mg/dL before meals <180 mg/dL all other times of the day Blood 04/15/2023 7:45 AM EST 04/15/2023 7:45 AM EST Sidney Maldonado MD POINT OF CARE TEST O DANIEL Performing Organization Address City/[facility] Co de Phone Number [facility] [place] [address] * Differential, Automated (04/15/2023 5:11 AM EST) Neutrophil % 42.7 % [facility] Neutrophil Absolute 1.85 1.70 - 6.10 x10(3)/[facility] Lymph % 26.6 % [facility] Lymphocytes Abs 1.2 0.9 - 3.2 x10(3)/[facility] Monocyte % 21.0 % [facility] Monocyte Abs 0.9 0.3 - 0.9 x10(3)/[facility] Eos % 7.4 % [facility] Eosinophils Abs 0.3 0.0 - 0.4 x10(3)/[facility] Basophil % 2.1 % [facility] Baso Absolute 0.1 0.0 - 0.1 x10(3)/[facility] Immature Gran % 0.20 % [facility] Comment: Immature granulocytes(IG's)percentage and absolute count will include metamyelocytes, myelocytes, and promyelocytes. Blood smears from CBCs yielding IG's will be scanned manually for concordance. If this scan disagrees with the automated IG or if promyelocytes are noted, a manual differential will be performed. Immature Gran Absolute 0.01 0.00 - 0.04 x10(3)/[facility] LABORATORY Blood 04/15/2023 5:11 AM EST 04/15/2023 5:20 AM EST Narrative Resulting Agency Comment Spec In Lab Milli Maria MD HEMATOLOGY ORDERABLE S [facility] [place] [address] * (ABNORMAL) Hemogram (04/15/2023 5:11 AM EST) White Blood Cell 4.3 4.0 - 9.5 x10(3)/mc L [facility] Red Blood Cell 2.63(L) 4.58 - 5.54 x10(6)/mc L [facility] Hemoglobin 8.3(L) 13.7 - 16.5 g/dL [facility] Hematocrit 25.5(L) 40.5 - 48.5 % [facility] Mean Cell Volume 97.0(H) 82.9 - 93.1 fL [facility] Mean Cell Hemoglobin 31.6 27.5 - 32.1 pg [facility] Mean Cell Hemoglobin Concentration 32.5 32.0 - 35.7 g/dL [facility] Platelet 305 145 - 357 x10(3)/mc L [facility] RDW Standard Deviation 64.0(H) 36.0 - 45.0 fL [facility] RDW coefficient of variation 18.0(H) 11.4 - 13.8 % [facility] Mean Platelet Volume 9.9 7.6 - 12.9 fL [facility] NRBC% auto 0.0 % [facility] NRBC Absolute 0.000 0.000 - 0.000 x10(3)/mc L [facility] Blood 04/15/2023 5:11 AM EST 04/15/2023 5:20 AM EST Narrative Resulting Agency Comment Spec In Lab Milli Maria MD HEMATOLOGY ORDERABLE S [facility] [place] [address] * Heparin (unfractionated) Level (04/15/2023 5:11 AM EST) UF Heparin 0.26 IU/mL [facility]ATORY Comment: Heparin (anti-Xa) levels should be determined in a plasma sample that has been drawn 6 hours after a dose change to approximate steady-state for continuous heparin infusions. Indication specific Heparin (anti-Xa) levels based on order set selection: Acute DVT or PE treatment: 0.3 ? 0.7 IU/mL Thrombosis Prevention (eg. atrial fibrillation, stevenson-procedural bridging, mechanical valves): 0.3 ? 0.7 IU/mL Acute Coronary Syndrome: 0.3 ? 0.7 IU/mL Stroke Indications: 0.3 ? 0.5 IU/mL Ultra-low intensity (select indications in cardiac surgery): 0.1 ? 0.3 IU/mL Blood 04/15/2023 5:11 AM EST 04/15/2023 5:20 AM EST Narrative Resulting Agency Comment Spec In Lab Tha Winters MD HEMATOLOGY ORDERABL ES Performing Organization Address [facility] Co de Phone Number [facility] [place] [address] * (ABNORMAL) Phosphorus (04/15/2023 5:11 AM EST) Phosphorus 4.7(H) 2.5 - 4.5 mg/dL [facility] Blood 04/15/2023 5:11 AM EST 04/15/2023 5:20 AM EST Narrative Resulting Agency Comment Spec In Lab Tha Winters MD CHEMISTRY ORDERABLE S Performing Organization Address [facility] Phone Number [facility] [place] [address] * Magnesium (04/15/2023 5:11 AM EST) Magnesium 0.88 0.69 - 1.07 mmol/L [facility] Blood 04/15/2023 5:11 AM EST 04/15/2023 5:20 AM EST Narrative Resulting Agency Comment Spec In Lab Tha Winters MD CHEMISTRY ORDERABLE S Performing Organization Address [facility] de Phone Number [facility] [place] [address] * (ABNORMAL) Basic Metabolic Panel (non-fasting) (04/15/2023 5:11 AM EST) Glucose 131 65 - 199 mg/dL [facility] Comment:Diabetes: >=200 mg/d L plus symptoms Blood Urea Nitrogen 38(H) 10 - 20 mg/dL [facility] Creatinine 1.76(H) 0.80 - 1.50 mg/dL [facility] Sodium 137 135 - 145 mmol/L [facility] Potassium 4.2 3.5 - 5.0 mmol/L [facility] Comment: Please note: ??Patients with WBC >100,000 may have falsely elevated Potassium levels. ??For accurate Potassium quantification in these patients send serum separator tube (gold top) for subsequent determinations. ??Contact the Clinical Chemistry Laboratory if there are any questions. Chloride 104 98 - 107 mmol/L [facility] Carbon Dioxide 23 22 - 31 mmol/L [facility] Anion Gap 10 5 - 15 mmol/L [facility] Calcium 8.9 8.5 - 10.5 mg/dL [facility] Est Glomerular Filtration Rate 42(L) >=60 mL/min/1. 73 m?? [facility] Comment: This patient's estimated GFR [...] and symptoms in addition to eGFR. Blood 04/15/2023 5:11 AM EST 04/15/2023 5:20 AM EST Narrative Resulting Agency Comment Spec In Lab Tha Winters MD CHEMISTRY ORDERABLE S Performing Organization Address City/[facility]/ZIP Co de Phone Number [facility] [place] [address] * POCT Glucose (04/15/2023 3:18 AM EST) Glucose, POC 149 65 - 199 mg/dL [facility] Comment: Supplemental ranges: <140 mg/dL before meals <180 mg/dL all other times of the day Blood 04/15/2023 3:18 AM EST 04/15/2023 3:18 AM EST Sidney Maldonado MD POINT OF CARE TEST O RDERABLES Performing Organization Address City/[facility]/ZIP Co de Phone Number [facility] [place] [address] * POCT Glucose (04/15/2023 12:34 AM EST) Glucose, POC 179 65 - 199 mg/dL [facility] Comment: Supplemental ranges: <140 mg/dL before meals <180 mg/dL all other times of the day Blood 04/15/2023 12:3 4 AM EST 04/15/2023 12:34 AM EST Sidney Maldonado MD POINT OF CARE TEST O DANIEL Performing Organization Address [facility] de Phone Number [facility] [place] [address] * POCT Glucose (04/14/2023 7:13 PM EST) Glucose, POC 153 65 - 199 mg/dL [facility] Comment: Supplemental ranges: <140 mg/dL before meals <180 mg/dL all other times of the day Blood 04/14/2023 7:13 PM EST 04/14/2023 7:13 PM EST Sidney Maldonado MD POINT OF CARE TEST O DANIEL Performing Organization Address [facility] de Phone Number [facility] [place] [address] * POCT Glucose (04/14/2023 4:42 PM EST) Glucose, POC 146 65 - 199 mg/dL [facility] Comment: Supplemental ranges: <140 mg/dL before meals <180 mg/dL all other times of the day Blood 04/14/2023 4:42 PM EST 04/14/2023 4:42 PM EST Sidney Maldonado MD POINT OF CARE TEST O DANIEL Performing Organization Address [facility] de Phone Number [facility] [place] [address] * CARDIAC CATHETERIZATION (04/14/2023 4:00 PM EST) Anatomical Region Laterality Modality Other Narrative 04/14/2023 4:27 PM EST ?[facility] ? Cardiac Catheterization/Intervention Report ? Patient Name: Huber Mosher. ? Procedure Date: 04/14/2023 ? A #: [id number] ? Primary Physician: Citlalli Esposito I ? Case #: [id number] ? File Name: [id number] ? Catheterization Order Number: [id number] ? [facility] ? Final Report [place], [place] ? Patient Name: ? Huber C. Mellekas ?ID#: ?[id number] ? : ?1955 ? Procedure Date: ? April 14, 2023 ? Case #: ? [id number] ? Room: ? 5 ? Case Physician: ? Citlalli Esposito M.D. ? Start: ?15:22 ?Fellow: ? Max Minerva Perez M.D. ? Admission: ??04/13/2023 ? Referring Physician: ??ROMAN MD ZOEY ? Procedures: ?* Coronary Angiography ?* Left Heart Catheterization ? History ?Huber Mosher is a 67 year old man. He has hypertension and a ?family history of coronary artery disease. The patient's smoking status ?is Former. He has hypercholesterolemia managed with lipid therapy. 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 He has sequelae from ?diabetes. The patient has a prior history of coronary artery disease. He ?has a history of CHF. The CHF is NYHA Functional Class III and is ?classified as Systolic. He has a history of carotid artery disease, a ?history of transient ischemic attacks and a calcified ascending aorta. ?The patient also has a history of cancer. Prior to the initiation of this ?procedure, the patient was designated as ASA Class III. The [facility] clinical ?frailty scale is 5: Mildly Frail. ? Indications for Diagnostic Cath: ?The priority of the diagnostic procedure was Urgent. The indication for ?the laborer car barn visit is ACS greater than 24 hrs. Chest pain symptom ?assessment was: Typical Angina. ? Technique: ?A 6 SLFr sheath was inserted in the right radial artery utilizing the ?Seldinger technique. The left coronary artery was injected utilizing a ?6Fr JL 3.5 catheter. A 6Fr JR 4 catheter was used to inject the right ?coronary artery. Left ventricular pressure was performed utilizing a 6Fr ?JR 4 catheter. 4,000 units of heparin were administered. A total of 100cc ?of Omnipaque were opened, 57cc of Omnipaque were administered and 43cc of ?Omnipaque were wasted. Radiation: Fluoro time was 3.6 minutes, dose area ?product was 15.00 Gy/cm2 and air kerma was 208 mGY. See the case log for ?additional details. ?The patient received the following medications prior to and during the ?procedure: ? Unfractionated Heparin. ? Hemodynamics: ?Left Heart Pressures ? Resting: ? Syst Diast ? EDP ?a ?v ? m ?Ao 94 ?40 ?66 ?LV 99 ?25 ? Coronary Angiography: ?Dominance: Right ?Left Main ?Left Anterior Descending ? There was a 95% calcified single discrete stenosis of the ostial ? segment of the left anterior descending artery (LAD). ??The LAD was ? large. ??The mid segment of the LAD had a calcified single discrete ? 70% stenosis. ??There also was an 80% long segmental stenosis of the ? distal segment of the LAD. ?Left Circumflex ? There was a calcified single discrete total occlusion of the ostial ? segment of the left circumflex artery (LCX). ??The LCX was small. ? Distal flow was via collaterals from the RCA. ??The distal vessel was ? poorly visualized. ?Right Coronary Artery ? There was a 30% single discrete stenosis of the mid segment of the ? right coronary artery (RCA). ??The RCA was moderate in size. ? There was a 70% single discrete stenosis of the ostial segment of ? the right posterior descending branch (RPDA) of the RCA. ? Vascular Access: ?Vascular Access Management: ? Mechanical Compression of the right radial artery access site was ? performed. ? Conclusions: ?* Three vessel coronary artery disease (LAD, LCX and RCA) ?* Elevated left ventricular end diastolic pressure ?* Severe calcified distal LM and ostial LAD stenosis ?* LEGAL EXECUTIVE ASSISTANT of the ostial LCx, this is a smaller vessel ?* Recommend heart team consult to consider PCI vs CABG. He may not be a ?good candidate for bypass given co-morbidities and targets. In this case ?would plan for staged PCI of LM-LAD with consideration of LEGAL EXECUTIVE ASSISTANT PCI of LCx. ?He had CKD and Cr limits further intervention today so we will stop and ?weight all the options. ? Complications/Events: ?The patient had no complications during these procedures. ? Post Procedure Fluid Recommendations: ?IV fluid at 128 mL/hr for 4 hours for a total of 512 mL. These ?recommendations are made at the time of the procedure. Patient and ?provider preferences or a changing clinical situation may require ?modification of this regimen. ?The attending physician was present for the entire procedure. ?Dr. Citlalli Esposito M.D. was present during the moderate sedation ?intraservice time as documented by the sedation nurse. ??Case time = 00:34. ?Dr. Citlalli Esposito M.D. performed the coronary angiography and left ?heart catheterization. ? Citlalli Esposito M.D. ? Electronically Signed by: Citlalli Esposito M.D. ? Report Finalized: 04/14/2023 ??16:23 ? Procedure Note Citlalli Esposito MD - 04/14/2023 [facility] Cardiac Catheterization/Intervention Report Patient Name: Massimo Huber Scott Procedure Date: 04/14/2023 A #: [id number] Primary Physician: Citlalli Esposito I Case #: [id number] File Name: [id number] Catheterization Order Number: [id number] [facility] FinalReport [place], [place] Patient Name: Huber Scott Massimo ID#:[id number] :1955 Procedure Date: April 14, 2023 Case #: [id number] Room: 5 Case Physician: Citlalli Esposito M.D. Start: 15:22 Fellow: Real Perez M.D. Admission:04/13/2023 Referring Physician: ROMAN GREER Procedures: * Coronary Angiography * Left Heart Catheterization History Huber Mosher is a 67 year old man. He has hypertension and a family history of coronary artery disease. The patient's smokingstatus is Former. He has hypercholesterolemia managed with lipid therapy.The patient has insulin dependent diabetes mellitus. He has sequelaefrom diabetes. The patient has a prior history of coronary arterydisease. He has a history of CHF. The CHF is NYHA Functional Class III and is classified as Systolic. He has a history of carotid artery disease,a history of transient ischemic attacks and a calcified ascendingaorta. The patient also has a history of cancer. Prior to the initiation ofthis procedure, the patient was designated as ASA Class III. The CSHAclinical frailty scale is 5: Mildly Frail. Indications for Diagnostic Cath: The priority of the diagnostic procedure was Urgent. The indicationfor the laborer car barn visit is ACS greater than 24 hrs. Chest pain symptom assessment was: Typical Angina. Technique: A 6 SLFr sheath was inserted in the right radial artery utilizingthe Seldinger technique. The left coronary artery was injected utilizinga 6Fr JL 3.5 catheter. A 6Fr JR 4 catheter was used to inject theright coronary artery. Left ventricular pressure was performed utilizing a6Fr JR 4 catheter. 4,000 units of heparin were administered. A total dc138vk of Omnipaque were opened, 57cc of Omnipaque were administered pif65kj of Omnipaque were wasted. Radiation: Fluoro time was 3.6 minutes, dosearea product was 15.00 Gy/cm2 and air kerma was 208 mGY. See the case logfor additional details. The patient received the following medications prior to and duringthe procedure: Unfractionated Heparin. Hemodynamics: Left Heart Pressures Resting: Syst Diast EDP a v m Ao 94 40 66 LV 99 25 Coronary Angiography: Dominance: Right Left Main Left Anterior Descending There was a 95% calcified single discrete stenosis of theostial segment of the left anterior descending artery (LAD). The LADwas large. The mid segment of the LAD had a calcified singlediscrete 70% stenosis. There also was an 80% long segmental stenosis ofthe distal segment of the LAD. Left Circumflex There was a calcified single discrete total occlusion of theostial segment of the left circumflex artery (LCX). The LCX wassmall. Distal flow was via collaterals from the RCA. The distalvessel was poorly visualized. Right Coronary Artery There was a 30% single discrete stenosis of the mid segment ofthe right coronary artery (RCA). The RCA was moderate in size. There was a 70% single discrete stenosis of the ostial segmentof the right posterior descending branch (RPDA) of the RCA. Vascular Access: Vascular Access Management: Mechanical Compression of the right radial artery access sitewas performed. Conclusions: * Three vessel coronary artery disease (LAD, LCX and RCA) * Elevated left ventricular end diastolic pressure * Severe calcified distal LM and ostial LAD stenosis * LEGAL EXECUTIVE ASSISTANT of the ostial LCx, this is a smaller vessel * Recommend heart team consult to consider PCI vs CABG. He may notbe a good candidate for bypass given co-morbidities and targets. In thiscase would plan for staged PCI of LM-LAD with consideration of LEGAL EXECUTIVE ASSISTANT PCI ofLCx. He had CKD and Cr limits further intervention today so we will stopand weight all the options. Complications/Events: The patient had no complications during these procedures. Post Procedure Fluid Recommendations: IV fluid at 128 mL/hr for 4 hours for a total of 512 mL. These recommendations are made at the time of the procedure. Patient and provider preferences or a changing clinical situation may require modification of this regimen. The attending physician was present for the entire procedure. Dr. Citlalli Esposito M.D. was present during the moderate sedation intraservice time as documented by the sedation nurse. Case time =00:34. Dr. Citlalli Esposito M.D. performed the coronary angiography and left heart catheterization. Citlalli Esposito M.D. Electronically Signed by: Citlalli Esposito M.D. Report Finalized: 04/14/2023 16:23 Citlalli Charles MD CARDIAC CATH ORDERA BLES * ECHO LMTD W CONTRAST W LMTD SPEC DOPP COLOR DOPP (04/14/2023 1:14 PM EST) EF 46 HEARTLAB SYSTEM Anatomical Region Laterality Modality Cardiac Other 04/14/2023 12:1 0 PM EST Narrative 04/14/2023 1:50 PM EST 1 [place] [address] ? Echocardiogram Report Name: SKYLERAGACLARITZA HUBER Brent ? Study Date: 04/14/2023 12:10 PMBP: 84/50 mmHg ? Patient Location: L3WB^363^A : 1955 ? Height: 179 cm ? Account: [id number] Age: 67 yrs ? Weight: 86 kg Gender: Male ?BSA: 2.1 m2 Ordering Physician: THA WINTERS Referring Physician: ROMAN BARAJAS Performed By: FELIX Cerna Reason For Study: NSTEMI Exam Location: [facility]. Interpretation Summary Left ventricle is mildly dilated with severely reduced systolic function. There are regional wall motion abnormaltiies as ascribed. No LV thrombus. Right ventricle is normal in size and systolic function. PASP of 55 mmHg plus estimated RA pressure. IVC is non-dilated and non-plethoric. Moderate atrioventricular valve regurgitation. Compared to prior study dated 03/2023, there has been a decrement in EF (previously 46%), with more anterior distribution of regional wall motion abnormality. Procedure Limited - 9[address]. Image enhancement Definity was used for left ventricular opacification. Suboptimal quality. There is normal sinus rhythm. Left Ventricle Left ventricle is mildly dilated. Left ventricular systolic function is severely reduced. The left ventricular ejection fraction is 29% by Burrell's biplane. There are segmental wall motion abnormalities. Right Ventricle The right ventricle is of normal size. Right ventricular systolic function is normal. Left Atrium The left atrium is mildly dilated. There is no evidence for a patent foramen ovale. Aortic Valve The aortic valve is probably trileaflet. The aortic valve is mildly thickened. There is no aortic stenosis. There is no aortic regurgitation. Mitral Valve There is tethering of the mitral leaflets. There is moderate mitral regurgitation. Tricuspid Valve The tricuspid valve is structurally and functionally normal. There is moderate tricuspid regurgitation. Pulmonic Valve The pulmonic valve is not well visualized. There is no pulmonic valve regurgitation. Venous Inferior vena cava is normal in size. Inferior vena cava collapse greater than 50% with respiration. Pericardium/Pleural There is no pericardial effusion. A pericardial fat pad is present. Hemodynamics The peak right ventricular systolic pressure is 55.4 mmHg . The estimated right atrial pressure is 3mmHg. Left ventricular filling pressure is increased. There is Grade III LV diastolic dysfunction (restriction with markedly elevated left ventricular filling pressure). Ejection Fraction ?2D Measurements ? Volumes EF(MOD-bp): 29.4 % ?IVSd: 0.77 cm ?LAV(MOD- bp) Indexed: ?LVIDd: 5.8 cm ?36.2 ml/m2 ?LVIDs: 5.0 cm ?LVPWd: 0.67 cm ? RA A4Cs_phl: 15.8 cm2 ?LV mass(C)d: 153.7 grams ? EDV(MOD- bp) Indexed: ? 105.4 ml/m2 ?LV mass(C)dI: 75.0 grams/m2 ?ESV(MOD- bp) Indexed: ? 74.5 ml/m2 Doppler LV V1 VTI: 20.5 cm MV E max bernarda: 82.2 cm/sec MV A max bernarda: 40.0 cm/sec MV E/A: 2.1 MV dec time: 0.17 sec Lat Peak E' Bernarda: 9.5 cm/sec E/ e' (lat): 8.7 Med Peak E' Bernarda: 4.8 cm/sec E/e' (med): 17.0 E/e' Average: 12.8 TR max bernarda: 362.1 cm/sec RVSP(TR): 55.4 mmHg I ?WMSI = 1.94 ? % Normal = 31 ?Segments ??Size X - Cannot ?? 1 - Normal ?? 2 - ? 3 - Akinetic 4 - ?1-2 ? small Interpret ? Hypokinetic ?Dyskinetic ?? 3-5 ? moderate 5 - ? 6-14 ?large Aneurysmal ?15-16 ?? diffuse Procedure Note Sameer Rudolph MD - 04/14/2023 1 [place] [address] Echocardiogram Report Name: HUBER MOSHER Study Date: 2:10 PMBP: 84/50 mmHg Patient Location:[facility]^363^A : 1955 Height: 179 cm Account: [id number] Age: 67 yrs Weight: 86 kg Gender: Male BSA: 2.1 m2 Ordering Physician: THA WINTERS Referring Physician: ROMAN BARAJAS Performed By: FELIX Cerna Reason For Study: NSTEMI Exam Location: [facility]. Interpretation Summary Left ventricle is mildly dilated with severely reduced systolic function.There are regional wall motion abnormaltiies as ascribed. No LV thrombus. Right ventricle is normal in size and systolic function. PASP of 55 mmHgplus estimated RA pressure. IVC is non-dilated and non-plethoric. Moderate atrioventricular valve regurgitation. Compared to prior study dated 03/2023, there has been a decrement in EF(previously 46%), with more anterior distribution of regional wall motionabnormality. Procedure Limited - 035[address]. Image enhancement Definity was used for leftventricular opacification. Suboptimal quality. There is normal sinus rhythm. Left Ventricle Left ventricle is mildly dilated. Left ventricular systolic function isseverely reduced. The left ventricular ejection fraction is 29% by Burrell'sbiplane. There are segmental wall motion abnormalities. Right Ventricle The right ventricle is of normal size. Right ventricular systolic functionis normal. Left Atrium The left atrium is mildly dilated. There is no evidence for a patentforamen ovale. Aortic Valve The aortic valve is probably trileaflet. The aortic valve is mildlythickened. There is no aortic stenosis. There is no aortic regurgitation. Mitral Valve There is tethering of the mitral leaflets. There is moderate mitralregurgitation. Tricuspid Valve The tricuspid valve is structurally and functionally normal. There ismoderate tricuspid regurgitation. Pulmonic Valve The pulmonic valve is not well visualized. There is no pulmonic valve regurgitation. Venous Inferior vena cava is normal in size. Inferior vena cava collapse greaterthan 50% with respiration. Pericardium/Pleural There is no pericardial effusion. A pericardial fat pad is present. Hemodynamics The peak right ventricular systolic pressure is 55.4 mmHg . The estimatedright atrial pressure is 3mmHg. Left ventricular filling pressure is increased.There is Grade III LV diastolic dysfunction (restriction with markedly elevatedleft ventricular filling pressure). Ejection Fraction 2D Measurements Volumes EF(MOD-bp): 29.4 % IVSd: 0.77 cm LAV(MOD-bp)Indexed: LVIDd: 5.8 cm 36.2 ml/m2 LVIDs: 5.0 cm LVPWd: 0.67 cm RA A4Cs_phl: 15.8cm2 LV mass(C)d: 153.7 grams EDV(MOD-bp)Indexed: 105.4 ml/m2 LV mass(C)dI: 75.0 grams/m2 ESV(MOD-bp)Indexed: 74.5 ml/m2 Doppler LV V1 VTI: 20.5 cm MV E max bernarda: 82.2 cm/sec MV A max bernarda: 40.0 cm/sec MV E/A: 2.1 MV dec time: 0.17 sec Lat Peak E' Bernarda: 9.5 cm/sec E/ e' (lat): 8.7 Med Peak E' Bernarda: 4.8 cm/sec E/e' (med): 17.0 E/e' Average: 12.8 TR max bernarda: 362.1 cm/sec RVSP(TR): 55.4 mmHg I WMSI = 1.94 % Normal = 31 SegmentsSize X - Cannot 1 - Normal 2 - 3 - Akinetic 4 - 1-2small Interpret Hypokinetic Dyskinetic 3-5moderate 5 - 6-14large Aneurysmal 15-16diffuse Tha Winters MD ECHO ORDERABLES * POCT Glucose (04/14/2023 11:41 AM EST) Pathologist [facility] Glucose, POC 143 65 - 199 mg/dL [facility] Comment: Supplemental ranges: <140 mg/dL before meals <180 mg/dL all other times of the day Blood 04/14/2023 11:4 1 AM EST 04/14/2023 11:41 AM EST Sidney Maldonado MD POINT OF CARE TEST O RDERABART [facility] [place] [address] * Heparin (unfractionated) Level (04/14/2023 8:48 AM EST) Pathologist [facility] UF Heparin 0.35 IU/mL [facility] [facility] Comment: Heparin (anti-Xa) levels should be determined in a plasma sample that has been drawn 6 hours after a dose change to approximate steady-state for continuous heparin infusions. Indication specific Heparin (anti-Xa) levels based on order set selection: Acute DVT or PE treatment: 0.3 ? 0.7 IU/mL Thrombosis Prevention (eg. atrial fibrillation, stevenson-procedural bridging, mechanical valves): 0.3 ? 0.7 IU/mL Acute Coronary Syndrome: 0.3 ? 0.7 IU/mL Stroke Indications: 0.3 ? 0.5 IU/mL Ultra-low intensity (select indications in cardiac surgery): 0.1 ? 0.3 IU/mL Blood 04/14/2023 8:48 AM EST 04/14/2023 8:56 AM EST Narrative Resulting Agency Comment Spec In Lab Tha Winters MD HEMATOLOGY ORDERABL ES Performing Organization Address City/[facility] Co de Phone Number [facility] [place] [address] * POCT Glucose (04/14/2023 8:07 AM EST) Glucose, POC 181 65 - 199 mg/dL [facility] Comment: Supplemental ranges: <140 mg/dL before meals <180 mg/dL all other times of the day Blood 04/14/2023 8:07 AM EST 04/14/2023 8:07 AM EST Tha Winters MD POINT OF CARE TEST ORDERABLES Performing Organization Address [facility] de Phone Number [facility] [place] [place] [address] * POCT Glucose (04/14/2023 3:56 AM EST) Glucose, POC 148 65 - 199 mg/dL [facility] Comment: Supplemental ranges: <140 mg/dL before meals <180 mg/dL all other times of the day Blood 04/14/2023 3:56 AM EST 04/14/2023 3:56 AM EST Narrative Authorizing Provider Result Jose Winters MD POINT OF CARE TEST ORDERABLES Performing Organization Address [facility] Co de Phone Number [facility] [place] [place] [address] * Differential, Automated (04/14/2023 12:40 AM EST) Neutrophil % 48.3 % [facility] Neutrophil Absolute 2.42 1.70 - 6.10 x10(3)/[facility] Lymph % 26.5 % [facility] Lymphocytes Abs 1.3 0.9 - 3.2 x10(3)/[facility] Monocyte % 16.8 % [facility] Monocyte Abs 0.8 0.3 - 0.9 x10(3)/[facility] Eos % 6.0 % [facility] Eosinophils Abs 0.3 0.0 - 0.4 x10(3)/[facility] Basophil % 2.2 % [facility] Baso Absolute 0.1 0.0 - 0.1 x10(3)/[facility] Immature Gran % 0.20 % [facility] Comment: Immature granulocytes(IG's)percentage and absolute count will include metamyelocytes, myelocytes, and promyelocytes. Blood smears from CBCs yielding IG's will be scanned manually for concordance. If this scan disagrees with the automated IG or if promyelocytes are noted, a manual differential will be performed. Immature Gran Absolute 0.01 0.00 - 0.04 x10(3)/[facility] Blood 04/14/2023 12:4 0 AM EST 04/14/2023 12:53 AM EST Narrative Resulting Agency Comment Spec In Lab Milli Maria MD HEMATOLOGY ORDERABLE S [facility] [place] [place] [address] * (ABNORMAL) Hemogram (04/14/2023 12:40 AM EST) White Blood Cell 5.0 4.0 - 9.5 x10(3)/mc L [facility] Red Blood Cell 2.68(L) 4.58 - 5.54 x10(6)/mc L [facility] Hemoglobin 8.6(L) 13.7 - 16.5 g/dL [facility] Hematocrit 25.3(L) 40.5 - 48.5 % [facility] Mean Cell Volume 94.4(H) 82.9 - 93.1 fL [facility] Mean Cell Hemoglobin 32.1 27.5 - 32.1 pg [facility] Mean Cell Hemoglobin Concentration 34.0 32.0 - 35.7 g/dL [facility] Platelet 314 145 - 357 x10(3)/mc L [facility] RDW Standard Deviation 60.5(H) 36.0 - 45.0 fL [facility] RDW coefficient of variation 17.8(H) 11.4 - 13.8 % [facility] Mean Platelet Volume 9.7 7.6 - 12.9 fL [facility] NRBC% auto 0.0 % [facility] NRBC Absolute 0.000 0.000 - 0.000 x10(3)/mc L [facility] Blood 04/14/2023 12:4 0 AM EST 04/14/2023 12:53 AM EST Narrative Resulting Agency Comment Spec In Lab Milli Maria MD HEMATOLOGY ORDERABLE S Performing Organization Address [facility] [place] [address] * Heparin (unfractionated) Level (04/14/2023 12:40 AM EST) UF Heparin 0.32 IU/mL [facility] Comment: Heparin (anti-Xa) levels should be determined in a plasma sample that has been drawn 6 hours after a dose change to approximate steady-state for continuous heparin infusions. Indication specific Heparin (anti-Xa) levels based on order set selection: Acute DVT or PE treatment: 0.3 ? 0.7 IU/mL Thrombosis Prevention (eg. atrial fibrillation, stevenson-procedural bridging, mechanical valves): 0.3 ? 0.7 IU/mL Acute Coronary Syndrome: 0.3 ? 0.7 IU/mL Stroke Indications: 0.3 ? 0.5 IU/mL Ultra-low intensity (select indications in cardiac surgery): 0.1 ? 0.3 IU/mL Blood 04/14/2023 12:4 0 AM EST 04/14/2023 12:53 AM EST Narrative Resulting Agency Comment Spec In Lab Tha Winters MD HEMATOLOGY ORDERABL ES Performing Organization Address City/[facility] Co de Phone Number [facility] [place] [address] * Phosphorus (04/14/2023 12:40 AM EST) Phosphorus 3.8 2.5 - 4.5 mg/dL [facility] Blood 04/14/2023 12:4 0 AM EST 04/14/2023 12:53 AM EST Narrative Resulting Agency Comment Spec In Lab Tha Winters MD CHEMISTRY ORDERABLE S Performing Organization Address City/[facility] Co de Phone Number [facility] [place] [address] * Magnesium (04/14/2023 12:40 AM EST) Magnesium 0.89 0.69 - 1.07 mmol/L [facility] Blood 04/14/2023 12:4 0 AM EST 04/14/2023 12:53 AM EST Narrative Resulting Agency Comment Spec In Lab Tha Winters MD CHEMISTRY ORDERABLE S Performing Organization Address [facility] de Phone Number [facility] [place] [address] * (ABNORMAL) Basic Metabolic Panel (non-fasting) (04/14/2023 12:40 AM EST) Glucose 167 65 - 199 mg/dL [facility] Comment:Diabetes: >=200 mg/d L plus symptoms Blood Urea Nitrogen 41(H) 10 - 20 mg/dL [facility] Creatinine 1.71(H) 0.80 - 1.50 mg/dL [facility] Sodium 134(L) 135 - 145 mmol/L [facility] Potassium 4.3 3.5 - 5.0 mmol/L [facility] Comment: Please note: ??Patients with WBC >100,000 may have falsely elevated Potassium levels. ??For accurate Potassium quantification in these patients send serum separator tube (gold top) for subsequent determinations. ??Contact the Clinical Chemistry Laboratory if there are any questions. Chloride 103 98 - 107 mmol/L [facility] Carbon Dioxide 21(L) 22 - 31 mmol/L [facility] Anion Gap 10 5 - 15 mmol/L [facility] Calcium 8.6 8.5 - 10.5 mg/dL [facility] Est Glomerular Filtration Rate 43(L) >=60 mL/min/1. 73 m?? [facility] Comment: This patient's estimated GFR [...] and symptoms in addition to eGFR. Blood 04/14/2023 12:4 0 AM EST 04/14/2023 12:53 AM EST Narrative Resulting Agency Comment Spec In Lab Tha Winters MD CHEMISTRY ORDERABLE S Performing Organization Address City/State/[facility] Co de Phone Number [facility] [place] [address] * Lipid Panel (Reflex Direct LDL) (04/14/2023 12:40 AM EST) Cholesterol, Total 101 mg/dL [facility] Comment: Lower Risk: <200 mg/dL Average Risk: 200-239 mg/dL Higher Risk: >pi=941 mg/dL Triglyceride 144 mg/dL [facility] Comment: Average Risk/Lower Risk: <150 mg/dL Borderline High Risk: 150-199 mg/dL High Risk: 200-499 mg/dL Very High Risk: >fp=390 mg/dL HDL Cholesterol 34 mg/dL [facility] Comment: Males: ?? Higher Risk: <40 mg/dL Females: ?? Higher Risk: <50 mg/dL LDL Cholesterol 38 mg/dL [facility] Comment: Lowest Risk: <100 mg/dL Lower Risk: 100-129 mg/dL Borderline High Risk: 130-159 mg/dL High Risk: 160-189 mg/dL Very High Risk: >fn=220 mg/dL Cholesterol/HDL Ratio 3.0 ratio [facility] Lipid Interpretation See Note [facility] Comment: Lipid management should be guided by a patient? s ASCVD risk, goals and preferences. ACC/AHA Guidelines recommend high intensity statin if clinical ASCVD or LDL greater than or equal to 190 mg/dL. http://Earnest.com/GXV-CZQ-Tkjondjai Adults aged 40-75 with LDL 70-189 mg/dL should have their 10 year ASCVD risk estimated with the ACC/AHA ASCVD risk transportation planning engineer http://tools.acc.org/NPLBK-Fgdz-Psrtrhibn/ Statin should be discussed if risk greater [...] Resulting Agency Comment Spec In Lab Tha Winters MD CHEMISTRY ORDERABLE S Performing Organization Address City/State/[facility] Co de Phone Number [facility] [place] [address] * (ABNORMAL) Troponin (04/14/2023 12:40 AM EST) Troponin-T, High Sensitivity 497(H) <=22 ng/L [facility] Comment: This patient's troponin T concentration was determined using the Nroy 5th Generation troponin T assay. The 99th percentile for Troponin T for this test is 14 ng/L for females, and 22 ng/L for males. According to the fourth universal definition of myocardial infarction, the term acute myocardial infarction should be used when there is acute myocardial injury with clinical evidence of acute myocardial ischemia and with detection of a rise and/or fall of cardiac troponin values with at least one value above the 99th percentile and at least one of the following: - Symptoms of myocardial ischemia; - New ischemic ECG changes; - Development of pathological Q waves; - Imaging evidence of new loss of viable myocardium or new regional wall motion abnormality in a pattern consistent with an ischemic etiology; - Identification of a coronary thrombus by angiography or autopsy (not for type 2 or 3 MIs) Serial measurement of troponin and the change in troponin concentration over time (delta) is crucial for the diagnosis of acute myocardial infarction. Guidance on the interpretation of the new 5th Generation Troponin T values and the delta troponin value can be found in the [facility] Laboratory Test Catalog Troponin - [facility] Test Catalog Reference: Fourth [place] Definition of Myocardial Infarction. Journal of the [place] [employer] 2018;72:0511-1333 Blood 04/14/2023 12:4 0 AM EST 04/14/2023 12:53 AM EST Narrative Resulting Agency Comment Spec In Lab Tha Winters MD CHEMISTRY ORDERABLE S Performing Organization Address City/[facility]/ZIP Co de Phone Number [facility] [place] [address] * POCT Glucose (04/14/2023 12:27 AM EST) Glucose, POC 184 65 - 199 mg/dL [facility] Comment: Supplemental ranges: <140 mg/dL before meals <180 mg/dL all other times of the day Blood 04/14/2023 12:2 7 AM EST 04/14/2023 12:27 AM EST Tha Winters MD POINT OF CARE TEST ORDERABLES Performing Organization Address City/[facility] Co de Phone Number [facility] [place] [place] [address] * EKG 12 Lead (04/13/2023 10:01 PM EST) Ventricular rate 80 BPM MUSE SYSTEM Atrial Rate 80 BPM MUSE SYSTEM P-R Interval 126 ms MUSE SYSTEM QRS Duration 96 ms MUSE SYSTEM Q-T Interval 368 ms MUSE SYSTEM QTC Calculated (Bezet) 424 ms MUSE SYSTEM Calculated P [place] 43 degrees MUSE SYSTEM Calculated R [place] 50 degrees MUSE SYSTEM Calculated T [place] -143 degrees MUSE SYSTEM INTERPRETATION Normal sinus rhythm Nonspecific ST and T wave abnormality Inferolateral leads Abnormal ECG When compared with ECG of 10-NOV-2022 08:43, No significant change was found Confirmed by fellow Shana Wrihgt ([id number]) on 04/14/2023 2:49:42 PM Confirmed by MD SEARS DAVID ([id number]) on 04/16/2023 4:34:51 PM MUSE SYSTEM 04/13/2023 10:0 1 PM EST 04/16/2023 4:34 PM EST Tha Winters MD ECG ORDERABLES MUSE SYSTEM * Differential, Automated (04/13/2023 9:07 PM EST) Neutrophil % 56.7 % [facility] Neutrophil Absolute 3.13 1.70 - 6.10 x10(3)/[facility] Lymph % 23.2 % [facility] Lymphocytes Abs 1.3 0.9 - 3.2 x10(3)/[facility] Monocyte % 13.6 % [facility] Monocyte Abs 0.8 0.3 - 0.9 x10(3)/[facility] Eos % 4.3 % [facility] Eosinophils Abs 0.2 0.0 - 0.4 x10(3)/[facility] Basophil % 1.8 % [facility] Baso Absolute 0.1 0.0 - 0.1 x10(3)/[facility] Immature Gran % 0.40 % [facility] Comment: Immature granulocytes(IG's)percentage and absolute count will include metamyelocytes, myelocytes, and promyelocytes. Blood smears from CBCs yielding IG's will be scanned manually for concordance. If this scan disagrees with the automated IG or if promyelocytes are noted, a manual differential will be performed. Immature Gran Absolute 0.02 0.00 - 0.04 x10(3)/[facility] Blood 04/13/2023 9:07 PM EST 04/13/2023 9:55 PM EST Narrative Resulting Agency Comment Spec In Lab Milli Maria MD HEMATOLOGY ORDERABLE S [facility] [place] [address] * (ABNORMAL) Hemogram (04/13/2023 9:07 PM EST) White Blood Cell 5.5 4.0 - 9.5 x10(3)/mc L [facility] Red Blood Cell 2.85(L) 4.58 - 5.54 x10(6)/mc L [facility] Hemoglobin 9.0(L) 13.7 - 16.5 g/dL [facility] Hematocrit 27.4(L) 40.5 - 48.5 % [facility] Mean Cell Volume 96.1(H) 82.9 - 93.1 fL [facility] Mean Cell Hemoglobin 31.6 27.5 - 32.1 pg [facility] Mean Cell Hemoglobin Concentration 32.8 32.0 - 35.7 g/dL [facility] Platelet 318 145 - 357 x10(3)/mc L [facility] RDW Standard Deviation 63.0(H) 36.0 - 45.0 fL [facility] RDW coefficient of variation 17.9(H) 11.4 - 13.8 % [facility] Mean Platelet Volume 9.6 7.6 - 12.9 fL [facility] NRBC% auto 0.0 % [facility] NRBC Absolute 0.000 0.000 - 0.000 x10(3)/mc L [facility] Blood 04/13/2023 9:07 PM EST 04/13/2023 9:55 PM EST Narrative Resulting Agency Comment Spec In Lab Mlili Maria MD HEMATOLOGY ORDERABLE S [facility] [place] [address] * Phosphorus (04/13/2023 9:07 PM EST) Phosphorus 3.7 2.5 - 4.5 mg/dL [facility] Blood 04/13/2023 9:07 PM EST 04/13/2023 9:24 PM EST Narrative Resulting Agency Comment Spec In Lab Tha Winters MD CHEMISTRY ORDERABLE S [facility] [place] [place] [address] * Calcium (04/13/2023 9:07 PM EST) Calcium 8.6 8.5 - 10.5 mg/dL [facility] Blood 04/13/2023 9:07 PM EST 04/13/2023 9:24 PM EST Narrative Resulting Agency Comment Spec In Lab Tha Winters MD CHEMISTRY ORDERABLE S Performing Organization Address [facility] Co de Phone Number [facility] [place] [place] [address] * Magnesium (04/13/2023 9:07 PM EST) Magnesium 0.86 0.69 - 1.07 mmol/L [facility] Blood 04/13/2023 9:07 PM EST 04/13/2023 9:24 PM EST Narrative Resulting Agency Comment Spec In Lab Tha Winters MD CHEMISTRY ORDERABLE S Performing Organization Address [facility] Co de Phone Number [facility] [place] [place] [address] * (ABNORMAL) Basic Metabolic Panel (non-fasting) (04/13/2023 9:07 PM EST) Glucose 210(H) 65 - 199 mg/dL [facility] Comment:Diabetes: >=200 mg/d L plus symptoms Blood Urea Nitrogen 42(H) 10 - 20 mg/dL [facility] Creatinine 1.78(H) 0.80 - 1.50 mg/dL [facility] Sodium 135 135 - 145 mmol/L [facility] Potassium 4.4 3.5 - 5.0 mmol/L [facility] Comment: Please note: ??Patients with WBC >100,000 may have falsely elevated Potassium levels. ??For accurate Potassium quantification in these patients send serum separator tube (gold top) for subsequent determinations. ??Contact the Clinical Chemistry Laboratory if there are any questions. Chloride 102 98 - 107 mmol/L [facility] Carbon Dioxide 21(L) 22 - 31 mmol/L [facility] Anion Gap 12 5 - 15 mmol/L [facility] Calcium 8.6 8.5 - 10.5 mg/dL [facility] Est Glomerular Filtration Rate 41(L) >=60 mL/min/1. 73 m?? [facility] Comment: This patient's estimated GFR [...] and symptoms in addition to eGFR. Blood 04/13/2023 9:07 PM EST 04/13/2023 9:24 PM EST Narrative Resulting Agency Comment Spec In Lab Tha Winters MD CHEMISTRY ORDERABLE S Performing Organization Address City/[facility] Co de Phone Number [facility] [place] [address] * (ABNORMAL) Hemoglobin A1c (04/13/2023 9:07 PM EST) Hemoglobin A1c 8.0(H) 4.3 - 5.6 % [facility] Comment: Reference Range: 4.3 - 5.6% [...] Mellitus, Diabetes Care 2013; 36: Suppl. 1, U05-98 Estimated Average Glucose 182 mg/dL [facility] Blood 04/13/2023 9:07 PM EST 04/13/2023 9:25 PM EST Narrative Resulting Agency Comment Spec In Lab Tha Winters MD CHEMISTRY ORDERABLE S [facility] [place] [address] * (ABNORMAL) Hepatic Function Panel (04/13/2023 9:07 PM EST) Pathologist [facility] Protein, Total 5.8(L) 6.1 - 8.0 g/dL [facility] Albumin 3.4 3.2 - 5.2 g/dL [facility] Aspartate Aminotransferase 27 0 - 39 unit/L [facility] Alanine Aminotransferase 10 0 - 55 unit/L [facility] Alkaline Phosphatase 53 40 - 130 unit/L [facility] Bilirubin, Total 0.3 0.2 - 1.3 mg/dL [facility] Bilirubin, Direct 0.1 0.0 - 0.3 mg/dL [facility] Blood 04/13/2023 9:07 PM EST 04/13/2023 9:24 PM EST Narrative Resulting Agency Comment Spec In Lab Tha Winters MD CHEMISTRY ORDERABLE S Performing Organization Address [facility] de Phone Number [facility] [place] [address] * (ABNORMAL) Troponin (04/13/2023 9:07 PM EST) [facility] Troponin-T, High Sensitivity 540(H) <=22 ng/L [facility] Comment: This patient's troponin T concentration was determined using the [employer] 5th Generation troponin T assay. The 99th percentile for Troponin T for this test is 14 ng/L for females, and 22 ng/L for males. According to the fourth universal definition of myocardial infarction, the term acute myocardial infarction should be used when there is acute myocardial injury with clinical evidence of acute myocardial ischemia and with detection of a rise and/or fall of cardiac troponin values with at least one value above the 99th percentile and at least one of the following: - Symptoms of myocardial ischemia; - New ischemic ECG changes; - Development of pathological Q waves; - Imaging evidence of new loss of viable myocardium or new regional wall motion abnormality in a pattern consistent with an ischemic etiology; - Identification of a coronary thrombus by angiography or autopsy (not for type 2 or 3 MIs) Serial measurement of troponin and the change in troponin concentration over time (delta) is crucial for the diagnosis of acute myocardial infarction. Guidance on the interpretation of the new 5th Generation Troponin T values and the delta troponin value can be found in the [facility] Laboratory Test Catalog Troponin - [facility] Test Catalog Reference: Fourth [place] Definition of Myocardial Infarction. Journal of the [place] [employer] 2018;72:1073-9546 Blood 04/13/2023 9:07 PM EST 04/13/2023 9:24 PM EST Narrative Resulting Agency Comment Spec In Lab Tha Winters MD CHEMISTRY ORDERABLE S Performing Organization Address City/[facility]/ZIP Co de Phone Number [facility] [place] [place] [address] * (ABNORMAL) pro-Brain Natriuretic Peptide (04/13/2023 9:07 PM EST) NT-proBNP 6,510(H) <=124 pg/mL [facility] Blood 04/13/2023 9:07 PM EST 04/13/2023 9:24 PM EST Narrative Resulting Agency Comment Spec In Lab Tha Winters MD CHEMISTRY ORDERABLE S Performing Organization Address [facility] Co de Phone Number [facility] [place] [address] * TSH (04/13/2023 9:07 PM EST) Thyroid Stimulating Hormone 2.97 0.27 - 4.20 mcIU/mL [facility] Comment: Reference Interval (mcIU/mL): Females: ??First Trimester: 0.23-3.88 ??Second Trimester: 0.22-3.90 ??Third Trimester: 0.44-4.66 Blood 04/13/2023 9:07 PM EST 04/13/2023 9:24 PM EST Narrative Resulting Agency Comment Spec In Lab Tha Winters MD CHEMISTRY ORDERABLE S Performing Organization Address City/[facility]/ZIP Co de Phone Number [facility] [place] [place] [address] * POCT Glucose (04/13/2023 7:14 PM EST) Glucose, POC 146 65 - 199 mg/dL [facility] Comment: Supplemental ranges: <140 mg/dL before meals <180 mg/dL all other times of the day Blood 04/13/2023 7:14 PM EST 04/13/2023 7:14 PM EST Tha Winters MD POINT OF CARE TEST ORDERABLES Performing Organization Address City/State/[facility] Co de Phone Number [facility] [place] [address] documented in this encounter Visit Diagnoses Diagnosis NSTEMI (non-ST elevated myocardial infarction)- Primary Acute myocardial infarction, subendocardial infarction, episode of care unspecified NSTEMI (non-ST elevated myocardial infarction) Acute myocardial infarction, subendocardial infarction, episode of care unspecified documented in this encounter Admitting Diagnoses Diagnosis NSTEMI (non-ST elevated myocardial infarction) Acute myocardial infarction, subendocardial infarction, episode of care unspecified documented in this encounter Administered Medications Inactive Administered Medications - up to 3 most recent administrations Medication Order MAR Action Action Date Dose Rate Site acetaminophen (Tylenol) tablet 650 mg 650 mg, Oral, EVERY 6 HOURS PRN, Starting on Mon04/13/23 at 1908, Until Mon04/19/23 at 1615, Pain, Maximum dose of acetaminophen is 4,000 mg from all sources in 24 hours. When ordered for pain, acetaminophen should be given even when other ordered pain medications are indicated., Routine Given 04/14/2023 12:31 AM EST 650 mg aspirin chewable tablet 81 mg 81 mg, Oral, DAILY, First dose on Mon04/14/23 at 0900, Until Discontinued, Routine Given 04/19/2023 8:42 AM EST 81 mg Given 04/17/2023 8:06 AM EST 81 mg Given 04/16/2023 8:05 AM EST 81 mg atorvastatin (Lipitor) tablet 40 mg 40 mg, Oral, DAILY, First dose on Mon04/13/23 at 2000, Until Discontinued, Routine Given 04/19/2023 8:42 AM EST 40 mg Given 04/18/2023 4:33 PM EST 40 mg Given 04/17/2023 8:06 AM EST 40 mg cholecalciferol (Vitamin D3) tablet 1,000 Units 1,000 Units, Oral, DAILY, First dose on Mon04/14/23 at 0900, Until Discontinued, 40 units is equivalent to 1 mcg of cholecalciferol., Routine Given 04/19/2023 8:43 AM EST 1,000 Units Given 04/18/2023 4:33 PM EST 1,000 Units Given 04/17/2023 8:06 AM EST 1,000 Units clopidogreL (Plavix) tablet 600 mg 600 mg, Oral, ONCE, 1 dose, On Mon04/17/23 at 1430, Routine Given 04/17/2023 3:06 PM EST 600 mg clopidogreL (Plavix) tablet 75 mg 75 mg, Oral, DAILY, First dose on Mon04/18/23 at 0900, Until Discontinued, Routine Given 04/19/2023 8:42 AM EST 75 mg darolutamide (Nubeqa) Tablet 300 mg 300 mg, Oral, 2 TIMES DAILY, First dose on Mon04/13/23 at 2100, Until Discontinued Given 04/13/2023 8:41 PM EST 300 mg dextrose 10% infusion 250 mL, at 1,000 mL/hr, Intravenous, EVERY 15 MIN PRN, Starting on Mon04/13/23 at 2010, Until Mon04/19/23 at 1615, For BG 50-70 mg/dL: Oral treatment preferred: If able to drink, give 120 mL juice or regular (not diet) soda OR if NPO, give 15 gram glucose 40% oral gel massaged into buccal mucosa OR if unconscious or uncooperative, give 25 gram (250 mL) dextrose 10% IV over 15 minutes per protocol OR, if no IV access, 1 mg glucagon IM. For BG less than 50 mg/dL: Oral treatment preferred: If able to drink, give 240 mL juice or regular (not diet) soda OR if NPO, give 30 gram glucose 40% oral gel massaged in buccal mucosa OR if unconscious or uncooperative, give 25 gram (250 mL) dextrose 10% IV over 15 minutes per protocol OR, if no IV access, 1 mg glucagon IM. Recheck BG in 15 minutes. May repeat juice/soda, gel, dextrose or glucagon once per episode. Notify provider if hypoglycemia does not resolve after two treatments. Providers should consider the following: administering longer-acting treatments for the duration of active insulin or hypoglycemia agent for persistent hypoglycemia and re-evaluating active insulin orders before administering the next dose. furosemide (Lasix) (10 mg/mL) injection 40 mg 40 mg, Intravenous, ONCE, 1 dose, On 04/14/23 at 1730, Routine Given 04/14/2023 5:18 PM EST 40 mg furosemide (Lasix) (10 mg/mL) injection 40 mg 40 mg, Intravenous, ONCE, 1 dose, On 04/15/23 at 1145, Routine Given 04/15/2023 12:04 PM EST 40 mg glucagon (Glucagen) (1 mg/mL) injection solution 1 mg 1 mg, Intramuscular, EVERY 15 MIN PRN, Starting on Emely 04/13/23 at 2009, Until Mon04/19/23 at 1615, Low blood sugar, For BG 50-70 mg/dL: Oral treatment preferred: If able to drink, give 120 mL juice or regular (not diet) soda OR if NPO, give 15 gram glucose 40% oral gel massaged into buccal mucosa OR if unconscious or uncooperative, give 25 gram (250 mL) dextrose 10% IV over 15 minutes per protocol OR, if no IV access, 1 mg glucagon IM. For BG less than 50 mg/dL: Oral treatment preferred: If able to drink, give 240 mL juice or regular (not diet) soda OR if NPO, give 30 gram glucose 40% oral gel massaged in buccal mucosa OR if unconscious or uncooperative, give 25 gram (250 mL) dextrose 10% IV over 15 minutes per protocol OR, if no IV access, 1 mg glucagon IM. Recheck BG in 15 minutes. May repeat juice/soda, gel, dextrose or glucagon once per episode. Notify provider if hypoglycemia does not resolve after two treatments. Providers should consider the following: administering longer-acting treatments for the duration of active insulin or hypoglycemia agent for persistent hypoglycemia and re-evaluating active insulin orders before administering the next dose. , Routine glucose (Glutose) 40% oral geL 15-30 g of glucose, Buccal, EVERY 15 MIN PRN, Starting on Emely 04/13/23 at 2009, Until Mon04/19/23 at 1615, Low blood sugar, For BG 50-70 mg/dL: Oral treatment preferred: If able to drink, give 120 mL juice or regular (not diet) soda OR if NPO, give 15 gram glucose 40% oral gel massaged into buccal mucosa OR if unconscious or uncooperative, give 25 gram (250 mL) dextrose 10% IV over 15 minutes per protocol OR, if no IV access, 1 mg glucagon IM. For BG less than 50 mg/dL: Oral treatment preferred: If able to drink, give 240 mL juice or regular (not diet) soda OR if NPO, give 30 gram glucose 40% oral gel massaged in buccal mucosa OR if unconscious or uncooperative, give 25 gram (250 mL) dextrose 10% IV over 15 minutes per protocol OR, if no IV access, 1 mg glucagon IM. Recheck BG in 15 minutes. May repeat juice/soda, gel, dextrose or glucagon once per episode. Notify provider if hypoglycemia does not resolve after two treatments. Providers should consider the following: administering longer-acting treatments for the duration of active insulin or hypoglycemia agent for persistent hypoglycemia and re-evaluating active insulin orders before administering the next dose. 1 tube of Glutose-15 contains 15 grams of glucose (net weight of tube = 37.5 grams.), Routine heparin (pf) (porcine) (100 units/mL) flush 5 mL syringe 500 Units 500 Units (5 mL), Intravenous, DAILY PRN, 1 dose, Starting on Mon04/19/23 at 1126, Until Mon04/19/23 at 1615, Line Care, Terminal Flush for de-accessing of Implantable Port, Routine heparin (porcine) 25,000 unit/500 mL (50 unit/mL) infusion 1 dose, Starting on Mon04/13/23 at 1757, Until Mon04/13/23 at 1800, Herlinda Pelletier: cabinet override heparin (porcine) 50 units/mL in dextrose 5% 500 mL infusion 0-5,000 Units/hr (0-100 mL/hr), Intravenous, CONTINUOUS, Starting on Mon04/13/23 at 2000, Until Mon04/18/23 at 1435, Begin infusion at 1,000 units per hr (12 units/kg/hr). Maximum initial infusion rate is 1,000 units/hr. Infusion doses are rounded to the nearest 50 units. Target Heparin UFH Level (anti-Xa activity) = 0.3 - 0.7 international unit/mL Start adjustment schedule 6 hours after starting infusion. If Heparin UFH Level is: - Less than 0.1 international unit/mL: Administer PRN bolus and increase rate by 350 units per hr (4 units/kg/hr) - 0.1 - 0.19 international unit/mL: Administer PRN bolus and increase rate by 150 units per hr (2 units/kg/hr) - 0.2 - 0.29 international unit/mL: NO BOLUS and increase rate by 150 units per hr (2 units/kg/hr) - 0.3 - 0.7 international unit/mL: No change - 0.71 - 0.79 international unit/mL: NO BOLUS and decrease rate by 100 units per hr (1 units/kg/hr) - 0.8 - 0.99 international unit/mL: NO BOLUS and decrease rate by 150 units per hr (2 units/kg/hr) - Greater than or equal to 1.00 international unit/mL: Hold infusion for 60 minutes then decrease rate by 250 units per hour (3 units/kg/hr) Obtain Heparin UFH Level 6 hours after initiating heparin. Then 6 hours after each dose adjustment. When 2 consecutive Heparin UFH Level within target range of 0.3 - 0.7 international unit/mL, change Heparin UFH Level to once every 24 hours with A.M. labs while on heparin. RN to order required Heparin UFH Level - Per Protocol, Routine New Bag 04/17/2023 12:37 PM EST 1,150 Units/hr 23 mL/hr New Bag 04/16/2023 3:20 PM EST 1,150 Units/hr 23 mL/hr New Bag 04/15/2023 6:48 PM EST 1,150 Units/hr 23 mL/hr HYDROmorphone (Dilaudid) tablet 1 mg 1 mg, Oral, EVERY 6 HOURS PRN, Starting on Mon04/14/23 at 0317, Until Mon04/19/23 at 1615, Pain, Routine insulin glargine-ygfn (Semglee) (100 unit/mL) subcutaneous injection vial 5 Units 5 Units, Subcutaneous, DAILY, First dose on Mon04/14/23 at 0900, Until Discontinued, Routine Given 04/19/2023 8:43 AM EST 5 Units Given 04/17/2023 8:09 AM EST 5 Units Given 04/16/2023 8:06 AM EST 5 Units insulin lispro (HumaLOG;Admelog) (100 unit/mL) subcutaneous injection vial 1-4 Units 1-4 Units, Subcutaneous, EVERY 4 HOURS SCHEDULED, First dose on Mon04/13/23 at 2100, Until Discontinued, CORRECTION BOLUS [1-4 Units] Sensitive Sliding Scale (BG in mg/dL): Correction factor 40 (1 unit of insulin is expected to drop the glucose 40 mg/dL) ?? BG 160 - 200 Give 1 unit BG 201 - 240 Give 2 units BG 241 - 280 Give 3 units and recheck BG in 2 hours. BG greater than 280, give 4 units and recheck BG in 2 hours. - If recheck BG is LESS than 280, give no insulin and resume schedule - If recheck BG is GREATER than or EQUAL to 280, give 4 units and repeat BG in 2 hours (no more than 3 times)??& call for new insulin orders. DO NOT hold if NPO, unless specifically directed to do so by written order. ?? Per Inpatient Subcutaneous Insulin Policy, recheck a BG of greater than 240 mg/dL in 2 hours., Routine Given 04/19/2023 8:40 AM EST 1 Units Given 04/18/2023 8:33 PM EST 1 Units Given 04/18/2023 7:30 AM EST 1 Units levothyroxine (Synthroid) tablet 150 mcg 150 mcg, Oral, DAILY, First dose on Mon04/14/23 at 0900, Until Discontinued, Routine Given 04/19/2023 8:45 AM EST 150 mcg Given 04/18/2023 4:34 PM EST 150 mcg Given 04/17/2023 8:06 AM EST 150 mcg lidocaine (Lidoderm) 5% patch 1 patch 1 patch, Transdermal, Administer over 12 Hours, DAILY, First dose on Mon04/14/23 at 0330, Until Discontinued, Apply patch(es) for 12 hours, and then remove for 12 hours., Routine Patch Applied 04/14/2023 4:08 AM EST 1 patch 16- Thigh Anterior (Right) perflutren lipid microspheres (Definity) injection 0.5 mL 0.5 mL, Intravenous, ONCE PRN, 1 dose, Starting on Mon04/14/23 at 1314, Until Mon04/14/23 at 1245, Other, Routine Given 04/14/2023 12:45 PM EST 0.5 mLs polyethylene glycoL (Miralax) packet 17 g 17 g, Oral, DAILY, First dose on Mon04/16/23 at 0900, Until Discontinued, Routine Given 04/16/2023 9:24 AM EST 17 g polyethylene glycoL (Miralax) packet 17 g 17 g, Oral, DAILY PRN, Starting on Mon04/17/23 at 1007, Until Mon04/19/23 at 1615, Constipation, For no bowel movements in 2 days, Routine senna-docusate (Pericolace) 8.6-50 mg per tablet 2 tablet 2 tablet, Oral, 2 TIMES DAILY, First dose on Mon04/16/23 at 0900, Until Discontinued, Routine Given 04/16/2023 8:45 PM EST 2 tablets Given 04/16/2023 9:24 AM EST 2 tablets senna-docusate (Pericolace) 8.6-50 mg per tablet 2 tablet 2 tablet, Oral, 2 TIMES DAILY PRN, Starting on Mon04/17/23 at 1007, Until Mon04/19/23 at 1615, Constipation, Routine sodium chloride 0.9 % (flush) (BD PosiFlush Normal Saline 0.9) flush 10 mL 10 mL, Intravenous, DAILY PRN, Starting on Mon04/13/23 at 2035, Until Mon04/19/23 at 1615, For use when accessing Implantable Port, Routine sodium chloride 0.9 % (flush) (BD PosiFlush Normal Saline 0.9) flush 5 mL 5 mL, Intravenous, 2 TIMES DAILY, First dose on Mon04/13/23 at 2100, Until Discontinued, Routine Given 04/19/2023 9:00 AM EST 5 mLs Given 04/18/2023 8:33 PM EST 5 mLs Given 04/18/2023 8:00 AM EST 5 mLs sodium chloride 0.9% infusion 50 mL/hr, Intravenous, CONTINUOUS, Starting on Mon04/14/23 at 1630, Until Mon04/14/23 at 1729, Recovery (Recovery-Hospital Unit) Continued Bag 04/14/2023 4:00 PM EST 50 mL/hr 50 mL /hr sodium chloride 0.9% infusion 100 mL/hr, Intravenous, CONTINUOUS, Starting on Mon04/18/23 at 1245, Until Mon04/18/23 at 2044, Recovery (Recovery-Hospital Unit) New Bag 04/18/2023 12:34 PM EST 100 mL/hr 100 mL/hr tamsulosin (Flomax) capsule 0.4 mg 0.4 mg, Oral, DAILY, First dose on Emely 04/13/23 at 2000, Until Discontinued, DO NOT CRUSH OR CHEW, Routine Given 04/19/2023 8:42 AM EST 0.4 mg Given 04/18/2023 4:34 PM EST 0.4 mg Given 04/17/2023 8:06 AM EST 0.4 mg documented in this encounter Active and Recently Administered Medications Times are shown in EST. 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)1417 (MAY Unhold - Provider: Admin Adt) 0842 (Given - Provider: Ashleigh Babcock, SHIVAM) atorvastatin (Lipitor) tablet 40 mg 40 mg, Oral, DAILY, First dose on Mon04/13/23 at 2000, Until Discontinued, Routine 0806 (Given - Provider: Alisa Garcia RN) 0833 (MAY Hold - Provider: Admin Adt - Reason: Transfer to a Procedural area)0900 (Not Given - Provider: Lesvia Torres RN - Reason: See comment - Comment: Given Post cath, see MAR)1417 (MAY Unhold - Provider: Admin Adt)1633 (Given - Provider: Lesvia Torres, SHIVAM) 0842 (Given - Provider: Ashleigh Babcock, SHIVAM) cholecalciferol (Vitamin D3) tablet 1,000 Units 1,000 Units, Oral, DAILY, First dose on Mon04/14/23 at 0900, Until Discontinued, 40 units is equivalent to 1 mcg of cholecalciferol., Routine 0806 (Given - Provider: Alisa Garcia RN) 0833 (MAY Hold - Provider: Admin Adt - Reason: Transfer to a Procedural area)0900 (Not Given - Provider: Lesvia Torres RN - Reason: See comment - Comment: Given, post cath, see MAY)1417 (MAY Unhold - Provider: Admin Adt)1633 (Given - Provider: Lesvia Torres RN) 0843 (Given - Provider: Ashleigh Babcock RN) clopidogreL (Plavix) tablet 600 mg (COMPLETED) 600 mg, Oral, ONCE, 1 dose, On Mon04/17/23 at 1430, Routine 1506 (Given - Provider: Alisa Garcia RN) clopidogreL (Plavix) tablet 75 mg 75 mg, Oral, DAILY, First dose on Mon04/18/23 at 0900, Until Discontinued, Routine 0833 (MAY Hold - Provider: Admin Adt - Reason: Transfer to a Procedural area)0900 (Not Given - Provider: Lesvia Torres RN - Reason: See comment - Comment: 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, 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)1417 (MAY Unhold - Provider: Admin Adt) 0842 (Given - Provider: Ashleigh Babcock RN) insulin glargine-ygfn (Semglee) (100 unit/mL) subcutaneous injection vial 5 Units 5 Units, Subcutaneous, DAILY, First dose on Mon04/14/23 at 0900, Until Discontinued, Routine 0809 (Given - Provider: Alisa Garcia RN) 0833 (MAY Hold - Provider: Admin Adt - Reason: Transfer to a Procedural area)0900 (Not Given - Provider: Lesvia Torres RN - Reason: See comment - Comment: not given per pt since he was post cath)1417 (MAY Unhold - Provider: Admin Adt) 0843 (Given - Provider: Ashleigh Babcock RN) insulin lispro (HumaLOG;Admelog) (100 unit/mL) subcutaneous injection vial 1-4 Units(Linked Group 1) 1-4 Units, Subcutaneous, EVERY 4 HOURS SCHEDULED, First dose on Mon04/13/23 at 2100, Until Discontinued, CORRECTION BOLUS [1-4 Units] Sensitive Sliding Scale (BG in mg/dL): Correction factor 40 (1 unit of insulin is expected to drop the glucose 40 mg/dL) ?? BG 160 - 200 Give 1 unit BG 201 - 240 Give 2 units BG 241 - 280 Give 3 units and recheck BG in 2 hours. BG greater than 280, give 4 units and recheck BG in 2 hours. - If recheck BG is LESS than 280, give no insulin and resume schedule - If recheck BG is GREATER than or EQUAL to 280, give 4 units and repeat BG in 2 hours (no more than 3 times)??& call for new insulin orders. DO NOT hold if NPO, unless specifically directed to do so by written order. ?? Per Inpatient Subcutaneous Insulin Policy, recheck a BG of greater than 240 mg/dL in 2 hours., Routine 0000 (Not Given - Provider: Aide Jenkins RN - Reason: Order parameters not met)0400 (Not Given - Provider: Aide Jenkins RN - Reason: Order parameters not met)0809 (Given - Provider: Alisa Garcia RN)1200 (Not Given - Provider: Alisa Garcia RN - Reason: Order parameters not met)1655 (Given - Provider: Alisa Garcia RN)2000 (Not Given - Provider: Aide Jenkins RN - Reason: Order parameters not met) 0000 (Not Given - Provider: Aide Jenkins RN - Reason: Order parameters not met)0400 (Not Given - Provider: Aide Jenkins RN - Reason: Order parameters not met)0730 (Given - Provider: Lesvia Torres RN - Comment: bg 165)0833 (MAR Hold - Provider: Admin Adt - Reason: Transfer to a Procedural area)1200 (Not Given - Provider: Lesvia Torres RN - Reason: See comment - Comment: 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)1417 (MAR Unhold - Provider: Admin Adt)1600 (Not Given - Provider: Lesvia Torres RN - Reason: Order parameters not met - Comment: bg 124)2033 (Given - Provider: Aide Jenkins RN) 0000 (Not Given - Provider: Aide Jenkins RN - Reason: Order parameters not met)0400 (Not Given - Provider: Aide Jenkins RN - Reason: Order parameters not met)0840 (Given - Provider: Ashleigh Babcock RN - Comment: 173)1200 (Not Given - Provider: Ashleigh Babcock RN - Reason: Order parameters not met - Comment: 155) levothyroxine (Synthroid) tablet 150 mcg 150 mcg, Oral, DAILY, First dose on Mon04/14/23 at 0900, Until Discontinued, Routine 0806 (Given - Provider: Alisa Garcia RN) 0833 (MAY Hold - Provider: Admin Adt - Reason: Transfer to a Procedural area)0900 (Not Given - Provider: Lesvia Torres RN - Reason: See comment - Comment: Given post cath, see MAR)1417 (MAY Unhold - Provider: Admin Adt)163 (Given - Provider: Lesvia Torres RN) 0845 (Given - Provider: Ashleigh Babcock RN) lidocaine (Lidoderm) 5% patch 1 patch 1 patch, Transdermal, Administer over 12 Hours, DAILY, First dose on Mon04/14/23 at 0330, Until Discontinued, Apply patch(es) for 12 hours, and then remove for 12 hours., Routine 0900 (Not Given - Provider: Alisa Garcia RN - Reason: Patient/family refused) 0833 (MAY Hold - Provider: Admin Adt - Reason: Transfer to a Procedural area)09 (Not Given - Provider: Lesvia Torres RN - Reason: Patient/family refused)1417 (MAY Unhold - Provider: Admin Adt) 09 (Not Given - Provider: Ashleigh Babcock RN - Reason: Patient/family refused) sodium chloride 0.9 % (flush) (BD PosiFlush Normal Saline 0.9) flush 5 mL 5 mL, Intravenous, 2 TIMES DAILY, First dose on Mon04/13/23 at 2100, Until Discontinued, Routine 0809 (Given - Provider: Alisa Garcia RN)1933 (Given - Provider: Aide Jenkins RN) 0800 (Given - Provider: Lesvia Torres RN)0833 (MAY Hold - Provider: Admin Adt - Reason: Transfer to a Procedural area)1417 (MAY Unhold - Provider: Admin Adt)2032 (Given - Provider: Aide Jenkins, SHIVAM) 0900 (Given - Provider: Ashleigh Babcock, SHIVAM) tamsulosin (Flomax) capsule 0.4 mg 0.4 mg, Oral, DAILY, First dose on Emely 04/13/23 at 2000, Until Discontinued, DO NOT CRUSH OR CHEW, Routine 0806 (Given - Provider: Alisa Garcia, SHIVAM) 0833 (MAY Hold - Provider: Admin Adt - Reason: Transfer to a Procedural area)0900 (Not Given - Provider: Lesvia Torres RN - Reason: See comment - Comment: Given post cath, see MAY)1417 (MAY Unhold - Provider: Admin Adt)1634 (Given - Provider: Lesvia Torres, SHIVAM) 0842 (Given - Provider: Ashleigh Babcock RN) Continuous Medication Order 04/17/2023 04/18/2023 04/19/2023 heparin (porcine) 50 units/mL in dextrose 5% 500 mL infusion (CANCELED)(Linked Group 2) 0-5,000 Units/hr (0-100 mL/hr), Intravenous, CONTINUOUS, Starting on Emely 04/13/23 at 2000, Until 04/18/23 at 1435, Begin infusion at 1,000 units per hr (12 units/kg/hr). Maximum initial infusion rate is 1,000 units/hr. Infusion doses are rounded to the nearest 50 units. Target Heparin UFH Level (anti-Xa activity) = 0.3 - 0.7 international unit/mL Start adjustment schedule 6 hours after starting infusion. If Heparin UFH Level is: - Less than 0.1 international unit/mL: Administer PRN bolus and increase rate by 350 units per hr (4 units/kg/hr) - 0.1 - 0.19 international unit/mL: Administer PRN bolus and increase rate by 150 units per hr (2 units/kg/hr) - 0.2 - 0.29 international unit/mL: NO BOLUS and increase rate by 150 units per hr (2 units/kg/hr) - 0.3 - 0.7 international unit/mL: No change - 0.71 - 0.79 international unit/mL: NO BOLUS and decrease rate by 100 units per hr (1 units/kg/hr) - 0.8 - 0.99 international unit/mL: NO BOLUS and decrease rate by 150 units per hr (2 units/kg/hr) - Greater than or equal to 1.00 international unit/mL: Hold infusion for 60 minutes then decrease rate by 250 units per hour (3 units/kg/hr) Obtain Heparin UFH Level 6 hours after initiating heparin. Then 6 hours after each dose adjustment. When 2 consecutive Heparin UFH Level within target range of 0.3 - 0.7 international unit/mL, change Heparin UFH Level to once every 24 hours with A.M. labs while on heparin. RN to order required Heparin UFH Level - Per Protocol, Routine 1237 (New Bag - Provider: Alisa Garcia RN) 0833 (MAY Hold - Provider: Admin Adt - Reason: Transfer to a Procedural area)1417 (MAY Unhold - Provider: Admin Adt) sodium chloride 0.9% infusion () 100 mL/hr, Intravenous, CONTINUOUS, Starting on Mon04/18/23 at 1245, Until Mon04/18/23 at 2044, Recovery (Recovery-Hospital Unit) 1234 (New Bag - Provider: Katie Carvalho, SHIVAM)2100 (Stopped - Provider: Aide Jenkins RN) PRN Medication Order 04/17/2023 04/18/2023 04/19/2023 acetaminophen (Tylenol) tablet 650 mg 650 mg, Oral, EVERY 6 HOURS PRN, Starting on Emely 04/13/23 at 1908, Until 04/19/23 at 1615, Pain, Maximum dose of acetaminophen is 4,000 mg from all sources in 24 hours. When ordered for pain, acetaminophen should be given even when other ordered pain medications are indicated., Routine 0833 (MAY Hold - Provider: Admin Adt - Reason: Transfer to a Procedural area)1417 (MAY Unhold - Provider: Admin Adt) aspirin chewable tablet (CANCELED) PRN, Starting on Mon04/18/23 at 0836, Until Mon04/18/23 at 1417, Intra-Operative (Intra-Procedure), Routine 0836 (Given - Provider: Wilmer Johnson RN) clopidogreL (Plavix) tablet (CANCELED) PRN, Starting on Mon04/18/23 at 0836, Until Mon04/18/23 at 1417, Intra-Operative (Intra-Procedure), Routine 0836 (Given - Provider: Wilmer Johnson RN) dextrose 10% infusion(Linked Group 3) 250 mL, at 1,000 mL/hr, Intravenous, EVERY 15 MIN PRN, Starting on Mon04/13/23 at 2009, Until Mon04/19/23 at 1615, For BG 50-70 mg/dL: Oral treatment preferred: If able to drink, give 120 mL juice or regular (not diet) soda OR if NPO, give 15 gram glucose 40% oral gel massaged into buccal mucosa OR if unconscious or uncooperative, give 25 gram (250 mL) dextrose 10% IV over 15 minutes per protocol OR, if no IV access, 1 mg glucagon IM. For BG less than 50 mg/dL: Oral treatment preferred: If able to drink, give 240 mL juice or regular (not diet) soda OR if NPO, give 30 gram glucose 40% oral gel massaged in buccal mucosa OR if unconscious or uncooperative, give 25 gram (250 mL) dextrose 10% IV over 15 minutes per protocol OR, if no IV access, 1 mg glucagon IM. Recheck BG in 15 minutes. May repeat juice/soda, gel, dextrose or glucagon once per episode. Notify provider if hypoglycemia does not resolve after two treatments. Providers should consider the following: administering longer-acting treatments for the duration of active insulin or hypoglycemia agent for persistent hypoglycemia and re-evaluating active insulin orders before administering the next dose. 0833 (MAR Hold - Provider: Admin Adt - Reason: Transfer to a Procedural area)1417 (MAR Unhold - Provider: Admin Adt) fentaNYL (pf) (50 mcg/mL) multi-dose injection (CANCELED) PRN, Starting on Mon04/18/23 at 0905, Until Mon04/18/23 at 1417, Intra-Operative (Intra-Procedure), Routine 09 (Given - Provider: Wilmer Johnson RN)1025 (Given - Provider: Wilmer Johnson RN)1135 (Given - Provider: Wilmer Johnson RN) glucagon (Glucagen) (1 mg/mL) injection solution 1 mg(Linked Group 3) 1 mg, Intramuscular, EVERY 15 MIN PRN, Starting on Mon04/13/23 at 2009, Until 2/14/24 at 1615, Low blood sugar, For BG 50-70 mg/dL: Oral treatment preferred: If able to drink, give 120 mL juice or regular (not diet) soda OR if NPO, give 15 gram glucose 40% oral gel massaged into buccal mucosa OR if unconscious or uncooperative, give 25 gram (250 mL) dextrose 10% IV over 15 minutes per protocol OR, if no IV access, 1 mg glucagon IM. For BG less than 50 mg/dL: Oral treatment preferred: If able to drink, give 240 mL juice or regular (not diet) soda OR if NPO, give 30 gram glucose 40% oral gel massaged in buccal mucosa OR if unconscious or uncooperative, give 25 gram (250 mL) dextrose 10% IV over 15 minutes per protocol OR, if no IV access, 1 mg glucagon IM. Recheck BG in 15 minutes. May repeat juice/soda, gel, dextrose or glucagon once per episode. Notify provider if hypoglycemia does not resolve after two treatments. Providers should consider the following: administering longer-acting treatments for the duration of active insulin or hypoglycemia agent for persistent hypoglycemia and re-evaluating active insulin orders before administering the next dose. , Routine 0833 (MAY Hold - Provider: Admin Adt - Reason: Transfer to a Procedural area)1417 (MAY Unhold - Provider: Admin Adt) glucose (Glutose) 40% oral geL(Linked Group 3) 15-30 g of glucose, Buccal, EVERY 15 MIN PRN, Starting on Emely 04/13/23 at 2009, Until Mon04/19/23 at 1615, Low blood sugar, For BG 50-70 mg/dL: Oral treatment preferred: If able to drink, give 120 mL juice or regular (not diet) soda OR if NPO, give 15 gram glucose 40% oral gel massaged into buccal mucosa OR if unconscious or uncooperative, give 25 gram (250 mL) dextrose 10% IV over 15 minutes per protocol OR, if no IV access, 1 mg glucagon IM. For BG less than 50 mg/dL: Oral treatment preferred: If able to drink, give 240 mL juice or regular (not diet) soda OR if NPO, give 30 gram glucose 40% oral gel massaged in buccal mucosa OR if unconscious or uncooperative, give 25 gram (250 mL) dextrose 10% IV over 15 minutes per protocol OR, if no IV access, 1 mg glucagon IM. Recheck BG in 15 minutes. May repeat juice/soda, gel, dextrose or glucagon once per episode. Notify provider if hypoglycemia does not resolve after two treatments. Providers should consider the following: administering longer-acting treatments for the duration of active insulin or hypoglycemia agent for persistent hypoglycemia and re-evaluating active insulin orders before administering the next dose. 1 tube of Glutose-15 contains 15 grams of glucose (net weight of tube = 37.5 grams.), Routine 0833 (MAY Hold - Provider: Admin Adt - Reason: Transfer to a Procedural area)141 (MAY Unhold - Provider: Admin Adt) heparin (pf) (porcine) (100 units/mL) flush 5 mL syringe 500 Units 500 Units (5 mL), Intravenous, DAILY PRN, 1 dose, Starting on Mon04/19/23 at 1126, Until Mon04/19/23 at 1615, Line Care, Terminal Flush for de-accessing of Implantable Port, Routine heparin (porcine) (1,000 units/mL) injection (CANCELED) PRN, Starting on Mon04/18/23 at 0924, Until Mon04/18/23 at 1417, Intra-Operative (Intra-Procedure), Routine 0924 (Given - Provider: Wilmer Johnson RN)0935 (Given - Provider: Wilmer Johnson RN)0951 (Given - Provider: Wilmer Johnson RN)1013 (Given - Provider: Wlimer Johnson RN)1103 (Given - Provider: Wilmer Johnson RN) HYDROmorphone (Dilaudid) tablet 1 mg 1 mg, Oral, EVERY 6 HOURS PRN, Starting on Mon04/14/23 at 0317, Until Mon04/19/23 at 1615, Pain, Routine 0833 (MAY Hold - Provider: Admin Adt - Reason: Transfer to a Procedural area)141 (MAY Unhold - Provider: Admin Adt) iohexoL (Omnipaque) (350 mg/mL) solution (CANCELED) PRN, Starting on Mon04/18/23 at 1135, Until Mon04/18/23 at 1417, Intra-Operative (Intra-Procedure), Routine 1135 (Given - Provider: Citlalli Charles MD) lidocaine (Xylocaine) 1% (10 mg/mL) injection 3 mg 3 mg (0.3 mL), Subcutaneous, ONCE PRN, 1 dose, Starting on Emely 04/13/23 at 2009, Until Mon04/19/23 at 1615, for discomfort with PIV insertion, Routine 08 ([facility] Hold - Provider: Admin Adt - Reason: Transfer to a Procedural area)141 ([facility] Unhold - Provider: Admin Adt) midazolam (pf) (Versed) (1 mg/mL) multi-dose injection (CANCELED) PRN, Starting on Mon04/18/23 at 0905, Until Mon04/18/23 at 1417, Intra-Operative (Intra-Procedure), Routine 904 (Given - Provider: Wilmer Johnson, RN)1024 (Given - Provider: Wilmer Johnson RN) nitroGLYcerin (Nitrostat) disintegrating tablet 0.4 mg 0.4 mg, Sublingual, EVERY 5 MIN PRN, Starting on Emely 04/13/23 at 2009, Until Mon04/19/23 at 1615, Chest pain, May repeat every 5 minutes for a total of three doses. Notify provider if chest pain not relieved with nitroglycerin. Do not administer nitroglycerin if the patient has received or taken phosphodiesterase (PDE-5) inhibitors such as sildenafil, tadalafil or vardenafil within the last 24 to 72 hours., Routine 832 ([facility] Hold - Provider: Admin Adt - Reason: Transfer to a Procedural area)141 ([facility] Unhold - Provider: Admin Adt) polyethylene glycoL (Miralax) packet 17 g 17 g, Oral, DAILY PRN, Starting on Mon04/17/23 at 1007, Until Mon04/19/23 at 1615, Constipation, For no bowel movements in 2 days, Routine 08 ([facility] Hold - Provider: Admin Adt - Reason: Transfer to a Procedural area)141 ([facility] Unhold - Provider: Admin Adt) senna-docusate (Pericolace) 8.6-50 mg per tablet 2 tablet 2 tablet, Oral, 2 TIMES DAILY PRN, Starting on Mon04/17/23 at 1007, Until Mon04/19/23 at 1615, Constipation, Routine 08 ([facility] Hold - Provider: Admin Adt - Reason: Transfer to a Procedural area)141 ([facility] Unhold - Provider: Admin Adt) sodium chloride 0.9 % (flush) (BD PosiFlush Normal Saline 0.9) flush 10 mL 10 mL, Intravenous, DAILY PRN, Starting on Mon04/13/23 at 2035, Until Mon04/19/23 at 1615, For use when accessing Implantable Port, Routine 0833 ([facility] Hold - Provider: Admin Adt - Reason: Transfer to a Procedural area)1417 ([facility] Unhold - Provider: Admin Adt) sodium chloride 0.9 % (flush) (BD PosiFlush Normal Saline 0.9) flush 5-20 mL 5-20 mL, Intravenous, EVERY 1 MIN PRN, Starting on Mon04/13/23 at 2010, Until Mon04/19/23 at 1615, flush, Flush pertains to all indwelling lines. Flush per protocol found in the job aid using the link provided on this medication record., Routine 0833 ([facility] Hold - Provider: Admin Adt - Reason: Transfer to a Procedural area)1417 ([facility] Unhold - Provider: Admin Adt) sodium chloride 0.9% infusion (COMPLETED) CONTINUOUS PRN, Starting on Mon04/18/23 at 1135, Until Mon04/18/23 at 1417, Intra-Operative (Intra-Procedure) 1135 (New Bag - Provider: Wilmer Johnson RN) Linked Groups Order Group 1: POCT Fingerstick Glucose (CANCELED) Routine, EVERY 4 HOURS, First occurrence on Mon04/13/23 at 2014, Until Specified, Consider choosing EVERY 4 HOURS as frequency for: - Type 1 Diabetes - At least 24 hours after coming off an insulin drip - At least 24 hours after admission for DKA - Hypoglycemia unawareness - Patients who are otherwise unstable Select the same frequency for the correction bolus insulin order And insulin lispro (HumaLOG;Admelog) (100 unit/mL) subcutaneous injection vial 1-4 UnitsJump to med 1-4 Units, Subcutaneous, EVERY 4 HOURS SCHEDULED, First dose on Mon04/13/23 at 2100, Until Discontinued, CORRECTION BOLUS [1-4 Units] Sensitive Sliding Scale (BG in mg/dL): Correction factor 40 (1 unit of insulin is expected to drop the glucose 40 mg/dL) ?? BG 160 - 200 Give 1 unit BG 201 - 240 Give 2 units BG 241 - 280 Give 3 units and recheck BG in 2 hours. BG greater than 280, give 4 units and recheck BG in 2 hours. - If recheck BG is LESS than 280, give no insulin and resume schedule - If recheck BG is GREATER than or EQUAL to 280, give 4 units and repeat BG in 2 hours (no more than 3 times)??& call for new insulin orders. DO NOT hold if NPO, unless specifically directed to do so by written order. ?? Per Inpatient Subcutaneous Insulin Policy, recheck a BG of greater than 240 mg/dL in 2 hours., Routine Group 2: heparin (porcine) 50 units/mL in dextrose 5% 500 mL infusion (CANCELED)Jump to med 0-5,000 Units/hr (0-100 mL/hr), Intravenous, CONTINUOUS, Starting on Mon04/13/23 at 2000, Until Mon04/18/23 at 1435, Begin infusion at 1,000 units per hr (12 units/kg/hr). Maximum initial infusion rate is 1,000 units/hr. Infusion doses are rounded to the nearest 50 units. Target Heparin UFH Level (anti-Xa activity) = 0.3 - 0.7 international unit/mL Start adjustment schedule 6 hours after starting infusion. If Heparin UFH Level is: - Less than 0.1 international unit/mL: Administer PRN bolus and increase rate by 350 units per hr (4 units/kg/hr) - 0.1 - 0.19 international unit/mL: Administer PRN bolus and increase rate by 150 units per hr (2 units/kg/hr) - 0.2 - 0.29 international unit/mL: NO BOLUS and increase rate by 150 units per hr (2 units/kg/hr) - 0.3 - 0.7 international unit/mL: No change - 0.71 - 0.79 international unit/mL: NO BOLUS and decrease rate by 100 units per hr (1 units/kg/hr) - 0.8 - 0.99 international unit/mL: NO BOLUS and decrease rate by 150 units per hr (2 units/kg/hr) - Greater than or equal to 1.00 international unit/mL: Hold infusion for 60 minutes then decrease rate by 250 units per hour (3 units/kg/hr) Obtain Heparin UFH Level 6 hours after initiating heparin. Then 6 hours after each dose adjustment. When 2 consecutive Heparin UFH Level within target range of 0.3 - 0.7 international unit/mL, change Heparin UFH Level to once every 24 hours with A.M. labs while on heparin. RN to order required Heparin UFH Level - Per Protocol, Routine And heparin (porcine) (1,000 units/mL) injection 0-4,000 Units (CANCELED) 0-4,000 Units, Intravenous, BOLUS PER HEPARIN PROTOCOL, Starting on Emely 04/13/23 at 1907, Until Mon04/18/23 at 1435, Per Protocol, START ADJUSTMENT SCHEDULE 6 HOURS AFTER STARTING INFUSION Bolus doses are rounded to the nearest 100 units. If Heparin UFH Level is: - Less than 0.1 international unit/mL: Bolus 60 units/kg (Maximum of 4,000 units) = Bolus 4,000 units - 0.1 - 0.19 International unit/mL: Bolus 30 units/kg (Maximum of 2,000 units) = Bolus 2,000 units - Equal to or greater than 0.2 international unit/mL: No Bolus, Routine Group 3: glucose (Glutose) 40% oral geLJump to med 15-30 g of glucose, Buccal, EVERY 15 MIN PRN, Starting on Emely 04/13/23 at 2010, Until Mon04/19/23 at 1615, Low blood sugar, For BG 50-70 mg/dL: Oral treatment preferred: If able to drink, give 120 mL juice or regular (not diet) soda OR if NPO, give 15 gram glucose 40% oral gel massaged into buccal mucosa OR if unconscious or uncooperative, give 25 gram (250 mL) dextrose 10% IV over 15 minutes per protocol OR, if no IV access, 1 mg glucagon IM. For BG less than 50 mg/dL: Oral treatment preferred: If able to drink, give 240 mL juice or regular (not diet) soda OR if NPO, give 30 gram glucose 40% oral gel massaged in buccal mucosa OR if unconscious or uncooperative, give 25 gram (250 mL) dextrose 10% IV over 15 minutes per protocol OR, if no IV access, 1 mg glucagon IM. Recheck BG in 15 minutes. May repeat juice/soda, gel, dextrose or glucagon once per episode. Notify provider if hypoglycemia does not resolve after two treatments. Providers should consider the following: administering longer-acting treatments for the duration of active insulin or hypoglycemia agent for persistent hypoglycemia and re-evaluating active insulin orders before administering the next dose. 1 tube of Glutose-15 contains 15 grams of glucose (net weight of tube = 37.5 grams.), Routine Or dextrose 10% infusionJump to med 250 mL, at 1,000 mL/hr, Intravenous, EVERY 15 MIN PRN, Starting on Emely 04/13/23 at 2009, Until Mon04/19/23 at 1615, For BG 50-70 mg/dL: Oral treatment preferred: If able to drink, give 120 mL juice or regular (not diet) soda OR if NPO, give 15 gram glucose 40% oral gel massaged into buccal mucosa OR if unconscious or uncooperative, give 25 gram (250 mL) dextrose 10% IV over 15 minutes per protocol OR, if no IV access, 1 mg glucagon IM. For BG less than 50 mg/dL: Oral treatment preferred: If able to drink, give 240 mL juice or regular (not diet) soda OR if NPO, give 30 gram glucose 40% oral gel massaged in buccal mucosa OR if unconscious or uncooperative, give 25 gram (250 mL) dextrose 10% IV over 15 minutes per protocol OR, if no IV access, 1 mg glucagon IM. Recheck BG in 15 minutes. May repeat juice/soda, gel, dextrose or glucagon once per episode. Notify provider if hypoglycemia does not resolve after two treatments. Providers should consider the following: administering longer-acting treatments for the duration of active insulin or hypoglycemia agent for persistent hypoglycemia and re-evaluating active insulin orders before administering the next dose. Or glucagon (Glucagen) (1 mg/mL) injection solution 1 mgJump to med 1 mg, Intramuscular, EVERY 15 MIN PRN, Starting on Emely 04/13/23 at 2009, Until Mon04/19/23 at 1615, Low blood sugar, For BG 50-70 mg/dL: Oral treatment preferred: If able to drink, give 120 mL juice or regular (not diet) soda OR if NPO, give 15 gram glucose 40% oral gel massaged into buccal mucosa OR if unconscious or uncooperative, give 25 gram (250 mL) dextrose 10% IV over 15 minutes per protocol OR, if no IV access, 1 mg glucagon IM. For BG less than 50 mg/dL: Oral treatment preferred: If able to drink, give 240 mL juice or regular (not diet) soda OR if NPO, give 30 gram glucose 40% oral gel massaged in buccal mucosa OR if unconscious or uncooperative, give 25 gram (250 mL) dextrose 10% IV over 15 minutes per protocol OR, if no IV access, 1 mg glucagon IM. Recheck BG in 15 minutes. May repeat juice/soda, gel, dextrose or glucagon once per episode. Notify provider if hypoglycemia does not resolve after two treatments. Providers should consider the following: administering longer-acting treatments for the duration of active insulin or hypoglycemia agent for persistent hypoglycemia and re-evaluating active insulin orders before administering the next dose. , Routine documented in this encounter Care Teams Licensed Physical Therapy Assistant Relationship Specialty Start Date End Date Nicolasa Valenzuela PA [address] [place] [place] [address] PCP - General Family Medicine 12/20/21 documented as of this encounter
--- OUTSIDE RECORDS SUMMARY | 2023-10-16 03:13 | XMS_ITS | Encounter Summary ---
Author Organization [facility] Address [facility] [place] [address] Care Team Providers Care Internal Audit Director Name Role Phone Nicolasa Valenzuela Primary Care Pro vider Encounter Details Date Type Department Care Team (Late st Contact Info) Description 04/13/2023 [place] [phone] Kade Balbuena MD [facility] [place] [address] Social History Tobacco Use Types Packs/Day Years Used Date Smoking Tobacco: Never Smokeless Tobacco: Never Alcohol Use Standard Drinks/Week Comments Not Currently 0 (1 standard drink = 0.6 oz pur e alcohol) [facility] Utilities Answer Date Recorded In the past 12 months has [employer], gas, oil, or water [employer] threatened to shut off services in your [...] place to sleep or slept in a half-way (including now)? No 04/14/2023 DH IPV Inpatient [...] encounter Miscellaneous Notes * Telephone Encounter - Kade Balbuena MD - 04/13/2023 12:59 AM EST Images from the original note were not included. [facility] [place] [id number] 04/13/2023 Huber Keys Initial Contact Date: 04/13/2023 Initial Contact Time: 12:59 AM Referring Provider: Gian Birch MD Patient Location: [place] Past Medical History: Metastatic high risk prostate cancer CKD Bilateral hydronephrosis admitted in September 2022 status post stents Unspecified cardiomyopathy, likely stress-induced versus ischemic Coronary artery disease based on CT scan imaging Brief HPI: This is a 67-year-old male with the above past medical history who presents with substernal chest pain. He reports sudden onset 8 out of 10 chest pain that radiated to his left arm. This was associated with diaphoresis and mild shortness of breath. He presented to the emergency room in [place]. Initial EKG noted below with borderline ST elevation in aVR with diffuse ST depressions concerning for global ischemia. Repeat EKG that is not scanned shows improvement of ST segments. He received nitroglycerin which unfortunately dropped his blood pressure. His baseline blood pressure seems to be 80-90 systolic. He received 150 mg of fentanyl in the emergency room with resolution of his chest pain. He has a history of metastatic prostate cancer to his bones but this pain is different. Initial troponin noted below was 20 which uzair to 129 on repeat. Other labs notable for creatinine of 2. Hemoglobin is 9. ED physician requesting transfer. Vitals: Blood pressure 100/70, pulse 80, respiratory rate 12 satting 99% on room air. No physical exam evidence of heart failure. Pertinent Diagnostic Findings: Troponin trend: 20 (ULN 4), 129 ProBNP 600 BMP notable for Cr 2 WBC normal, hemoglobin 9, platelets normal CTH pending at this time. ECG (04/12/23): Sinus rhythm, 1mm LITO in aVR with diffuse STD ECG 12/20/22: Sinus rhythm, Borderline LITO in aVR with slight STD in lateral leads Past Cardiac Studies: TTE 09/2022: Wall thickness is normal. Left [...] 12/20/22: Prior CT demonstrating significant LAD disease Assessment/Recommendations: 67-year-old male with metastatic prostate cancer and unspecified cardiomyopathy who presents with acute onset substernal chest pressure, concerning ECG changes, and elevated troponin consistent with type I NSTEMI. Complicated situation given his metastatic prostate cancer but ultimately experiencing acute coronary syndrome. I have requested CT head to rule out brain metastases. If no brain metastases, would recommend aspirin 325 and heparin drip. Would not load with Plavix at this time. He is chest pain-freecurrently after couple doses of fentanyl. We will accept him in transfer for left heart catheterization later today. The patient is aware that there is a risk of dialysis with heart catheterization given his CKD. Patient is also aware of the risk of bleeding with anticoagulation. The above recommendations were based on my discussion with the outside hospital provider. I have not personally interviewed or examined this patient. I advised the provider to call the transfer center back with any changes in the patient condition. documented in this encounter Plan of Treatment Upcoming Encounters Date Type Department Care Team (Late st Contact Info) Description 10/16/2023 2:30 PM EDT Office Visit Hematology/Oncology at [address] [phone] Fiordaliza Downing APRN [facility] [place] [address] 11/10/2023 9:00 AM EDT Appointment [place] [phone] Thomas Curtis MD [facility] [place] [address] 11/21/2023 11:00 AM EDT Infusion Hematology Oncology at [address] [phone] 12/05/2023 1:30 PM EDT Office Visit Hematology/Oncology at [address] [phone] Thomas Curtis MD [facility] [place] [address] Fiordaliza Downing APRN [facility] [place] [address] 12/26/2023 9:00 AM EDT Appointment [place] [phone] Thomas Curtis MD [facility] DR HEMAT[place]Y [place] [address] 02/09/2024 8:00 AM EST Appointment [place] [phone] Thomas Curtis MD [facility] DR [place]EMAT[place] [address] 03/18/2024 3:00 PM EST Office Visit Cardiology at [address] [phone] Sameer Rudolph MD [facility] [place] [address] 03/22/2024 9:00 AM EST Appointment [place] [phone] Thomas Curtis MD [facility] DR [place]EM[place] [address] 08/23/2024 Hospital Encounter [place] [phone] True Juarez MD [facility] [place] [address] Scheduled Procedures Name Priority Associated Diagnoses Date/Ti [...] Patient Facing Action Plan Christy Bravo, [facility] Note: The patient? s goal is to continue positive results of oral chemotherapy by maintaining improved labs (PSA) or stable scans in clinic for the upcoming year. documented as of this encounter Visit Diagnoses Not on filedocumented in this encounter Care Teams Internal Audit Director Relationship Specialty Start Date End Date Nicolasa Valenzuela PA [address] [place] [address] PCP - General Family Medicine 12/20/21 documented as of this encounter
--- OUTSIDE RECORDS SUMMARY | 2023-10-16 03:13 | XMS_ITS | Encounter Summary ---
Author Organization [facility] [place] [address] Care Team Providers Care Connie Scratcher Name Role Phone Nicolasa Valenzuela Primary Care Pro vider Reason for Visit * Auth/Cert (Routine) Specialty Diagnoses / Procedures Referred By Toño mayorga Referred To Contact Diagnoses NSTEMI (non-ST elevated myocardial infarction) Diffuse ischemia Tha Winters MD [facility] [place] [address] [facility] Referral ID Status Reason Start Date Expiration Date Visits Re quested Visits Authorized [id number] 1 1 Encounter Details Date Type Department Care Team (Late st Contact Info) Description 04/14/2023 12:30 PM EST - 04/14/2023 1:30 PM EST Surgery [place] [address] Citlalli Esposito MD [facility] [address] CARDIAC CATHETERIZATION Social History Tobacco Use Types Packs/Day Years Used Date Smoking Tobacco: Never Smokeless Tobacco: Never Alcohol Use Standard Drinks/Week Comments Not Currently 0 (1 standard drink = 0.6 oz pur e alcohol) [facility] Utilities Answer Date Recorded In the past 12 months has [employer], gas, oil, or water [email or web address] threatened to shut off services in your [...] Sign Reading Time Taken Comments Blood Pressure 83/49 04/14/2023 11:40 AM EST Pulse 68 04/14/2023 11:40 AM EST Temperature 36.4 ??C (97.6 ??F) 04/14/2023 1 1:40 AM EST Respiratory Rate 16 04/14/2023 11:4 0 AM EST Oxygen Saturation 100% 04/14/2023 11: 40 AM EST Inhaled Oxygen Concentration - - Weight 85.6 kg (188 lb 11.4 oz) 04/14/2023 6:52 AM EST Height 179.1 cm (5' 10.5) 04/13/2023 5:56 PM ES T Body Mass Index 26.11 04/13/2023 5:56 PM EST documented in this encounter Discharge Summaries * Willis Maldonado MD - 04/19/2023 2:15 PM EST Discharge Summary Patient Name: Huber Mosher Patient Age: 67 y.o. Language: Northern Irish Race: White Ethnicity: Not nor Admit date: 04/13/2023 Discharge date and time: 04/19/2023 Attending Physician: Willis Maldonado MD Discharge Physician: Severo Calderon MD (Resident) ID: Huber Mosher is a 67 y.o. male w/ PMH CAD (per CT scan imaging), cardiomyopathy (stress vs ischemic), high risk prostate cancer with multiple mets to bones/lymph nodes,CKD, IDDM2, hypothyroidism, and bilateral hydronephrosis s/p stents who presents as a transfer from [place] for NSTEMI Follow-up Recommendations for Providers: Primary [...] carcinoma, consistent with prostatic origin (see discussion) [place] light chain deposition disease Gout Cardiomyopathy 09/2022: EF 27%, apical AK Retroperitoneal lymphadenopathy Hydronephrosis Pleural effusion, bilateral Bilateral lower extremity edema History of Presentation (per 04/13/2023 Admission H&P): Patient states he was in his normal state of health until 10 PM last night (Monday), when he developed sudden onset / left sided chest pain with radiation into his shoulder. He had associated shortness of breath but denied any diaphoresis, lightheadedness, dizziness, nausea, or syncope. He presented to [place] where initial EKG showed borderline LITO in [...] started on a heparin drip. Transferred to [facility] for further care. On arrival, patient is [...] 27%). A recent echo on 03/29 at [place] showed an EF 46% with regional WMA. [...] multivessel coronary artery disease in LAD, LCX (TACTICAL DEBRIEFER OFFICER), and RCA. CT surgery was consultedto evaluate if Mr. Mosher is a candidate for CABG vs PCI. After evaluation, CT surgery CABG benefit was medically limited. Given his high risk and difficult social situation (lives alone with out acaretaker), PCI was recommended. He was loaded with [...] Lab Data: DISCHARGE BASIC LABS: Recent Labs 04/19/23 0400 04/18/23 0330 04/17/23 0315 WBC 5.5 4.2 4.0 HGB 9.1* 9.0* 8.0* HCT 27.3* 27.1* 23.9* PLATELET 305 321 299 Recent Labs 04/19/23 0400 04/18/23 0330 04/17/23 0315 NA 136 137 138 K 4.5 [...] distal LAD, 70% ostial D1 LCx: Ostial TACTICAL DEBRIEFER OFFICER RCA: Not injected - Successful mini-crush of the LM/LAD/LCX bifurcation with a 3.0 x 34 mm Hebert [place] in the LCX and 3.5 x 26 mm Carter [place] ARJUN to the LAD. - Normal cardiac [...] HYDROcodone-acetaminophen 5-325 mg tablet Commonly known as: Euclid Take 1 tablet by mouth every 6 [...] attack called (NSTEMI). You went to the slab lifting engineer which showed multiple arteries of your heart [...] HYDROcodone-acetaminophen 5-325 mg tablet Commonly known as: Euclid Take 1 tablet by mouth every 6 [...] 04/27/2023 at 10 AM PCP JESSE Nesbitt [facility] Cardiology in [place], Dr. Rudolph [phone]. We left voicemail with office requesting a 4-6 week office follow-up visit. Please call them if you do not hear from them in next week. Future Appointments Date Time Provider Department Center 05/09/2023 9:30 AM Thomas Curtis MD [facility] Your follow-up slab lifting engineer intervention will be 05/02/23 at noon, please arrive at least 1 hour early Your Inpatient Medical Team at [facility] Name(s) of your inpatient provider(s): Willis Maldonado MD Your Primary Care Provider: JESSE Nesbitt [phone] For questions regarding this document or issues relating to this hospitalization on the Medical Service, please contact your inpatient physician through the [facility] Epic Beacon Analyst . Issues afterhours and on weekends will be handled by the Hospitalist staff on-call. General Instructions None Future Appointments and Orders Future Appointments and Orders Future Appointments Provider Department Dept Phone 05/09/2023 9:30 AM Fiordaliza Downing APRN; Thomas Curtis MD Hematology/Oncology at [facility] Arrive at: [facility] door at end of hallway [phone] Provider Contact Information: JESSE Nesbitt [address] / [place] [address] Discharge References/Attachments: Discharge References/Attachments Healthy Diet: Heart (Northern Irish) CAD (Coronary Artery Disease): General Info (Northern Irish) Cardiology Staff Addendum: I was the attending physician of record at the time of this patient's discharge. I agree with the information documented above. I spent >30 minutes (Day of Discharge Code 50579) involved in the final examination of the patient, discussion of the hospital stay, instructions for continuing care to all relevant caregivers, and preparation of discharge records, prescriptions and referral forms. Willis Maldonado MD [facility] Staff Practice Nurse [facility] documented in this encounter Discharge Instructions * Patient Instructions* Severo Calderon MD - 04/19/2023 9:13 AM EST Instructions on Discharge to Home Why you were hospitalized - You came to the hospital with chest pain. Your findings was consistent for a heart attack called (NSTEMI). You went to the slab lifting engineer which showed multiple arteries of your heart [...] HYDROcodone-acetaminophen 5-325 mg tablet Commonly known as: Euclid Take 1 tablet by mouth every 6 [...] 04/27/2023 at 10 AM PCP JESSE Nesbitt [facility] in [place], Dr. Rudolph [phone]. We left voicemail with office requesting a 4-6 week office follow-up visit. Please call them if you do not hear from them in next week. Future Appointments Date Time Provider Department Center 04/25/2023 9:00 AM Sameer Rudolph MD [facility] Cardio [facility] 05/09/2023 9:30 AM Thomas Curtis MD [facility] Your follow-up slab lifting engineer intervention will be 05/02/23 at noon, please arrive at least 1 hour early Your Inpatient Medical Team at [facility] Name(s) of your inpatient provider(s): Willis Maldonado MD Your Primary Care Provider: JESSE Nesbitt [phone] For questions regarding this document or issues relating to this hospitalization on the Medical Service, please contact your inpatient physician through the [facility] Epic Beacon Analyst . Issues afterhours and on weekends will be handled by the Hospitalist staff on-call. * Attachments The following attachments cannot be sent through Care Everywhere. * Healthy Diet: Heart (Northern Irish) * CAD (Coronary Artery Disease): General Info (Northern Irish) documented in this encounter Medications at Time [...] 150 mcg by mouth daily. HYDROcodone-acetamino phen (Euclid) 5-325 mg tablet Take 1 tablet by [...] Pt back on floor @1425. No pain. mushroom laborer site is C/D/I. Bed rest due to d/c at 1630. Patient is able to make needs know. Call molina within reach. * Willis Maldonado MD - 04/18/2023 9:12 AM EST Images from the original note were not included. Inpatient Cardiology Progress Note Patient info: Name: Huber Mosher : 1955 PCP: JESSE Nesbitt PCP phone number: [phone] Date of Admission: 04/13/2023 ( Hospital Day 5 days ) Attending:Willis Maldonado MD ID: Huber Mosher is a 67 y.o. male w/ PMH of CAD (per CT scan imaging), HFrEF, cardiomyopathy(stress vs ischemic), high risk prostate cancer with multiple mets to bones/lymph nodes,CKD, IDDM2,hypothyroidism who was transferred from [place] for NSTEMI. 24 Hour Events/Subjective: - NPO [...] 04/13/23 210 PROBNP 6,510* Endocrine Recent Labs 04/13/23 2107 09/30/22 0617 TSH 2.97 3.16 Recent Labs 04/18/23 0730 04/18/23 0339 04/17/23 2332 04/17/23 1931 04/17/23 1610 04/17/23 1047 04/17/23 0740 04/17/23 0325 04/17/23 0006 04/16/23 2015 04/16/23 1526 04/16/23 1121 POCGLU 165 157 157 155 235* 128 170 149 147 216* 226* 156 Imaging: [facility] (04/14/23): Ao 94/40 mean 66 LV 99 EDP 25 Conclusions: * Three vessel coronary artery disease (LAD, LCX and RCA) * Elevated left ventricular end diastolic pressure * Severe calcified distal LM and ostial LAD stenosis * TACTICAL DEBRIEFER OFFICER of the ostial LCx, this is a smaller vessel * Recommend heart team consult to consider PCI vs CABG. He may not be a good candidate for bypass given co-morbidities and targets. In this case would plan for staged PCI of LM-LAD with considerationof TACTICAL DEBRIEFER OFFICER PCI of LCx. He had CKD and [...] nodes,CKD, IDDM2, hypothyroidism who was transferred from [place] for NSTEMI was found to have 3 vessel disease confirmed by [facility]. Mr. Mosher opted for PCI with Dr. Esposito today. Will stent Left main and LAD with possible stentof TACTICAL DEBRIEFER OFFICER of Lcx. Lcx may be delayed as [...] goal of stenting L main/LAD and possibly TACTICAL DEBRIEFER OFFICER of Lcx. #Metastatic prostate cancer -hold darolutamide given cardiotoxicity until f/u with primary oncologist, per hem onc -prn tylenol -home tamsulosin #T2DM --Sensitive SSI --lantus 5 units (dose reduced from 10-12 units at home) #Hypothyroidism -continue home synthroid #Routine Diet: Daily Healthy Menu Choices/Cardiac diet ([facility]-Diet) GI Prophylaxis: Docusate-Senna and Mirelax BID PRN DVT Prophylaxis: Heparin gtt, aspirin 81 mg Dispo: Pending clinical course Code Status: Attempt Cardiopulmonary Resuscitation - Inpatient Lisa Jovanny HenryJennyesvin Bernard, MS3 [facility] 04/18/23 9:24 AM * Willis Maldonado MD - 04/18/2023 6:40 AM EST Images from the original note were not included. Inpatient Cardiology Progress Note Patient info: Name: Huber Mosher : 1955 PCP: JESSE Nesbitt PCP phone number: [phone] Date of Admission: 04/13/2023 ( Hospital Day 5 days ) Attending:Willis Maldonado MD ID: Huber Mosher is a 67 y.o. male w/ PMH of PMH CAD (per CT scan imaging), cardiomyopathy (stress vs ischemic), high risk prostate cancer with multiple mets to bones/lymph nodes,CKD, IDDM2, hypothyroidism, and bilateral hydronephrosis s/p stents who presents as a transfer from [place] for NSTEMI 24 Hour Events/Subjective: -- NPO [...] palpable cord;no streak formation;no drainage 04/14/23 1920 Labs: Recent Labs 04/18/23 03304/17/2331404/16/2342404/15/23 0511 04/14/23 0040 WBC 4.2 4.0 4.3 [...] 04/13/23210609/30/22 0617 TSH 2.97 3.16 Recent Labs 04/18/23 03304/17/23 2332 04/17/23 1931 04/17/23 1610 04/17/23 1047 04/17/23 0740 04/17/23 0325 04/17/23 0006 04/16/23 2015 04/16/23 1526 04/16/23 1121 04/16/23 0733 POCGLU 157 157 155 235* 128 170 149 147 216* 226* 156 149 Heme No results for input(s): LDH, HAPTOGLOBIN, URICACID in the last 168 hours. ABG (Arterial Blood Gas) No results found for: PHART, PO2ART, [id number], [id number] Microbiology: Microbiology Results (Last 30 days) No [...] stents who presents as a transfer from [place] for NSTEMI Discussion with Dr. Thompson today patient to go for PCI with impella this AM and currently at cath. Patient was loaded with Plavix yesterday and started on scheduled Plavix this AM. Received 1u pRBCyesterday in anticipation of hemolysis with Impella. Will f/u recs after slab lifting engineer as plan to stent LM-LAD and utilize [...] demonstrated severe distal LM and oLAD stenosis, TACTICAL DEBRIEFER OFFICER RCA, moderate oRPDA. Major Issues Addressed: ASCVD, multiple vessel disease Ischemic cardiomyopathy Metastatic prostate cancer Assessment & Plan: PCI today. Continue DAPT, statin. Will titrate up HFrEF therapies post PCI. Willis Maldonado MD, [facility] Staff Practice Nurse * Lisa Yarbrough - 04/17/2023 7:58 AM EST Images from the original note were not included. Inpatient Cardiology Progress Note Patient info: Name: Huber Mosher : 1955 PCP: JESSE Nesbitt PCP phone number: [phone] Date of Admission: 04/13/2023 ( Hospital Day 4 days ) Attending:Willis Maldonado MD ID: Huber Mosher is a 67 y.o. male w/ PMH of CAD (per CT scan imaging), HFrEF, cardiomyopathy(stress vs ischemic), high risk prostate cancer with multiple mets to bones/lymph nodes,CKD, IDDM2,hypothyroidism who was transferred from [place] for NSTEMI. 24 Hour Events/Subjective: - NPO [...] 94.4* 96.1* Recent Labs 04/17/2331404/16/2342404/15/23 0504/14/23 0040 04/13/23 2107 NA 138 135 137 134* 135 CL [...] 04/13/23 210 PROBNP 6,510* Endocrine Recent Labs 04/13/23 2107 09/30/22 0617 TSH 2.97 3.16 Recent Labs 04/17/23 0740 04/17/23 0325 04/17/23 0006 04/16/23 2015 04/16/23 1526 04/16/23 1121 04/16/23 0733 04/16/23 0405 04/15/23 2350 04/15/23 2143 04/15/23 1937 04/15/23 1645 POCGLU 170 149 147 216* 226* 156 149 162 133 130 249* 186 Imaging: [facility] (04/14/23): Ao 94/40 mean 66 LV 99 EDP 25 Conclusions: * Three vessel coronary artery disease (LAD, LCX and RCA) * Elevated left ventricular end diastolic pressure * Severe calcified distal LM and ostial LAD stenosis * TACTICAL DEBRIEFER OFFICER of the ostial LCx, this is a smaller vessel * Recommend heart team consult to consider PCI vs CABG. He may not be a good candidate for bypass given co-morbidities and targets. In this case would plan for staged PCI of LM-LAD with considerationof TACTICAL DEBRIEFER OFFICER PCI of LCx. He had CKD and [...] nodes,CKD, IDDM2, hypothyroidism who was transferred from [place] for NSTEMI was found to have 3 vessel disease confirmed by [facility]. Mr. Mosher is being evaluated today for PCI. Will continue to hold plavix. Will f/u interventional cardiology for recs possible PCI of left main/LAD today without stenting of TACTICAL DEBRIEFER OFFICER in RCA with possible staged procedure later [...] #Routine Diet: Daily Healthy Menu Choices/Cardiac diet ([facility]-Diet) GI Prophylaxis: Docusate-Senna and Mirelax BID PRN DVT Prophylaxis: Heparin gtt, aspirin 81 mg Dispo: Pending clinical course Code Status: Attempt Cardiopulmonary Resuscitation - Inpatient Lisa Alvarado Marco Antonio, MS3 [facility] 04/17/23 9:58 AM * Willis Maldonado MD - 04/17/2023 6:27 AM EST Images from the original note were not included. Inpatient Cardiology Progress Note Patient info: Name: Huber Mosher : 1955 PCP: JESSE Nesbitt PCP phone number: [phone] Date of Admission: 04/13/2023 ( Hospital Day 4 days ) Attending:Willis Maldonado MD ID: Huber Mosher is a 67 y.o. male w/ PMH of PMH CAD (per CT scan imaging), cardiomyopathy (stress vs ischemic), high risk prostate cancer with multiple mets to bones/lymph nodes,CKD, IDDM2, hypothyroidism, and bilateral hydronephrosis s/p stents who presents as a transfer from [place] for NSTEMI 24 Hour Events/Subjective: -- NPO [...] Intake/Output Summary (Last 24 hours) at 04/17/2023 0627 Last data filed at 04/17/2023 0400 Gross [...] drainage 04/14/231919 Port De-access Date 04/11/23 04/11/23 114 Port [place]-Access Time 11404/11/23 114 Port De-Access Indication other (see comments) 04/11/23 1146 PIV 04/12/232229 basilic vein (medial side of arm), left (Active) Indication/Daily Review of Necessity fluid therapy intermittent;medication therapy intermittent 04/14/232113 Site Preparation/Maintenance dressing: dry and intact 04/15/23511 Securement catheter stabilization device, secured with 04/14/232113 Patency/Maintenance infusing 04/14/232304 Phlebitis 0-->no symptoms 04/15/23511 Infiltration 0-->no symptoms 04/15/23511 Site Signs/Symptoms no redness;no swelling;no warmth;no pain;no palpable cord;no streak formation;no drainage 04/14/231919 Labs: Recent Labs 04/17/2331404/16/2342404/15/2351004/14/233904/13/232106 WBC 4.0 4.3 4.3 5.0 5.5 HGB 8.0* 8.1* 8.3* 8.6* 9.0* HCT 23.9* 24.5* 25.5* 25.3* 27.4* PLATELET 299 286 305 314 318 MCV 94.1* 93.5* 97.0* 94.4* 96.1* Recent Labs 04/17/2331404/16/2342404/15/2351004/14/233904/13/232106 NA 138 135 137 134* 135 CL [...] 3.16 Recent Labs 04/17/23 0325 04/17/23 0006 04/16/23201404/16/23 1526 04/16/23 1121 04/16/23 0733 04/16/23 0405 04/15/23 2350 04/15/23 2143 04/15/23 1937 04/15/23 1645 04/15/23 1210 POCGLU 149 147 216* 226* 156 149 162 133 130 249* 186 205* Heme No results for input(s): LDH, HAPTOGLOBIN, URICACID in the last 168 hours. ABG (Arterial Blood Gas) No results found for: PHART, PO2ART, FVD9ITO, [id number] Microbiology: Microbiology Results (Last 30 days) No [...] stents who presents as a transfer from [place] for NSTEMI Per [facility] patient has severe multivessel CAD. Left [...] demonstrated severe distal LM and oLAD stenosis, TACTICAL DEBRIEFER OFFICER RCA, moderate oRPDA. Major Issues Addressed: ASCVD, multiple vessel disease Ischemic cardiomyopathy Acute on chronic HFrEF Metastatic prostate cancer Assessment & Plan: Discussed with Director Of Purchasing, Dr. Citlalli Esposito. Will plan on proceeding with PCI tomorrow. Will plan on probing LCx but if appears to be technically challenging using antegrade approach, will focus on stenting LM-LAD. Will also utilize Impella to assist/off-load LV. Will decide on RCA pending left coronary interventions. Load with clopidogrel today. Will transfuse 1U PRBC given anticipated hemolysis with Impella. Willis Maldonado MD, [facility] Staff Practice Nurse * Willis Maldnoado MD - 04/16/2023 6:29 AM EST Images from the original note were not included. Inpatient Cardiology Progress Note Patient info: Name: Huber Mosher : 1955 PCP: JESSE Nesbitt PCP phone number: [phone] Date of Admission: 04/13/2023 ( Hospital Day 3 days ) Attending:Willis Maldonado MD ID: Huber Mosher is a 67 y.o. male w/ PMH of PMH CAD (per CT scan imaging), cardiomyopathy (stress vs ischemic), high risk prostate cancer with multiple mets to bones/lymph nodes,CKD, IDDM2, hypothyroidism, and bilateral hydronephrosis s/p stents who presents as a transfer from [place] for NSTEMI 24 Hour Events/Subjective: -- Plan [...] Phlebitis 0-->no symptoms 04/15/23511 Infiltration 0-->no symptoms 02/10/24 0512 Site Signs/Symptoms no redness;no swelling;no warmth;no pain;no palpable cord;no streak formation;no drainage 04/14/23 1920 Labs: Recent Labs 04/16/2342404/15/2351004/14/233904/13/232106 WBC 4.3 4.3 5.0 5.5 HGB 8.1* 8.3* 8.6* 9.0* HCT 24.5* 25.5* 25.3* 27.4* PLATELET 286 305 314 318 MCV 93.5* 97.0* 94.4* 96.1* Recent Labs 04/16/2342404/15/23 0504/14/233904/13/232106 NA 135 137 134* 135 CL 102 [...] Gas) No results found for: PHART, PO2ART, [id number], [id number] Microbiology: Microbiology Results (Last 30 days) No [...] stents who presents as a transfer from [place] for NSTEMI Per [facility] patient has severe multivessel CAD. Left [...] today in setting of possible going to slab lifting engineer tomorrow. #NSTEMI type 1 #Multivessel ASCVD #HFrEF [...] home tamsulosin #Routine Diet: Carb Control diet CHO counting level 4 DVT Prophylaxis: on [...] demonstrated severe distal LM and oLAD stenosis, TACTICAL DEBRIEFER OFFICER RCA, moderate oRPDA. Major Issues Addressed: ASCVD, multiple vessel disease Ischemic cardiomyopathy HFrEF Metastatic prostate cancer Assessment & Plan: Interventional Cardiology consult tomorrow AM for high-risk PCI. Will tentatively make pt NPO p MN for possible PCI (anticipate staged). Willis Maldonado MD, [facility] Staff Practice Nurse * Willis Maldonado MD - 04/15/2023 7:57 AM EST Images from the original note were not included. Inpatient Cardiology Progress Note Patient info: Name: Huber Mosher : 1955 PCP: JESSE Nesbitt PCP phone number: [phone] Date of Admission: 04/13/2023 ( Hospital Day 2 days ) Attending:Willis Maldonado MD ID: Huber Mosher is a 67 y.o. male w/ PMH of PMH CAD (per CT scan imaging), cardiomyopathy (stress vs ischemic), high risk prostate cancer with multiple mets to bones/lymph nodes,CKD, IDDM2, hypothyroidism, and bilateral hydronephrosis s/p stents who presents as a transfer from [place] for NSTEMI 24 Hour Events/Subjective: -- LHC showing Left Main, LAD, Left Cx (TACTICAL DEBRIEFER OFFICER), RCA disease. No intervention due to possible [...] Intake/Output Summary (Last 24 hours) at 04/15/2023 0758 Last data filed at 04/15/2023 0627 Gross [...] device, secured with 04/14/232113 Patency/Maintenance infusing 04/14/23 2305 Phlebitis 0-->no symptoms 04/15/23511 Infiltration 0-->no symptoms 04/15/23511 Site Signs/Symptoms no redness;no swelling;no warmth;no pain;no palpable cord;no streak formation;no drainage 04/14/231919 Labs: Recent Labs 04/15/2351004/14/233904/13/232106 WBC 4.3 5.0 5.5 HGB 8.3* 8.6* 9.0* HCT 25.5* 25.3* 27.4* PLATELET 305 314 318 MCV 97.0* 94.4* 96.1* Recent Labs 04/15/23 0504/14/230 04/13/232106 NA 137 134* 135 CL 104 [...] 1141 04/14/23 0807 04/14/23 0356 04/14/23 0027 02/08/24 1914 POCGLU 163 149 179 153 146 143 181 148 184 146 Heme No results for input(s): LDH, HAPTOGLOBIN, URICACID in the last 168 hours. ABG (Arterial Blood Gas) No results found for: PHART, PO2ART, LWA2AIE, [id number] Microbiology: Microbiology Results (Last 30 days) No [...] stents who presents as a transfer from [place] for NSTEMI Per [facility] patient has severe multivessel CAD. Left [...] demonstrated severe distal LM and oLAD stenosis, TACTICAL DEBRIEFER OFFICER RCA, moderate oRPDA. Major Issues Addressed: ASCVD, [...] Monday. Continue aspirin and heparin. Hold clopidogrel. Willis Maldonado MD, [facility] Staff Practice Nurse * Willis Maldonado MD - 04/15/2023 7:23 AM EST Images from the original note were not included. Inpatient Cardiology Progress Note Patient info: Name: Huber Mosher : 1955 PCP: JESSE Nesbitt PCP phone number: [phone] Date of Admission: 04/13/2023 ( Hospital Day 2 days ) Attending:Willis Maldonado MD ID: Huber Mosher is a 67 y.o. male w/ PMH of CAD (per CT scan imaging), HFrEF, cardiomyopathy(stress vs ischemic), high risk prostate cancer with multiple mets to bones/lymph nodes,CKD, IDDM2,hypothyroidism who was transferred from [place] for NSTEMI. 24 Hour Events/Subjective: - LHC: [...] L. Basilic vein Labs: Recent Labs 04/15/23 0504/14/23 0040 04/13/232106 WBC 4.3 5.0 5.5 HGB [...] 1141 04/14/23 0807 04/14/23 0356 04/14/23 0027 04/13/231913 POCGLU 163 149 179 153 146 143 181 148 184 146 Imaging: [facility]: Ao 94/40 mean 66 LV 99 EDP 25 Conclusions: * Three vessel coronary artery disease (LAD, LCX and RCA) * Elevated left ventricular end diastolic pressure * Severe calcified distal LM and ostial LAD stenosis * TACTICAL DEBRIEFER OFFICER of the ostial LCx, this is a smaller vessel * Recommend heart team consult to consider PCI vs CABG. He may not be a good candidate for bypass given co-morbidities and targets. In this case would plan for staged PCI of LM-LAD with consideration of TACTICAL DEBRIEFER OFFICER PCI of LCx. He had CKD and [...] nodes,CKD, IDDM2, hypothyroidism who was transferred from [place] for NSTEMI was found to have 3 vessel disease confirmed by [facility]. [facility] cath showed multivessel disease in LAD, [...] p lavix for stent. Consider therapy or telephone engineer consult for increased anxiety surrounding diagnosis and [...] #Routine Diet: Daily Healthy Menu Choices/Cardiac diet ([facility]) DVT Prophylaxis: None Dispo: Pending clinical course Code Status: Attempt Cardiopulmonary Resuscitation - Inpatient Lisa Bernard, MS3 [facility] 04/15/23 10:47 AM * Elizabeth Sinclair, PT - 04/14/2023 2:05 PM EST PT Note Physical Therapy referral received. Pt is mobilizing independently. He is walking with nursing and mobility tech around unit. No PT needs at this time. Elizabeth Sinclair, PT Pager [phone] * Kade Balbuena MD - 04/14/2023 4:53 AM EST Images from the original note were not included. [facility] [place] [address] [place] [address] SAME DAY CARDIAC CATHETERIZATION LAB H&P ID: [...] He presented to the emergency room in [place]. Initial EKG noted below with borderline ST [...] [phone]* Recent BMP: Recent Labs 04/14/23 0040 04/13/23210612/27/22 1157 NA 134* 135 134* K [...] as planned -consent signed Kade Balbuena MD Dog Handler Or Trainer 04/14/2023 documented in this encounter H&P Notes * Willis Maldonado MD - 04/14/2023 12:10 AM EST Cardiology H&P Patient info: Name: Huber Mosher : 1955 PCP: JESSE Nesbitt (Inactive) PCP phone number: [phone] Date of Admission: 04/13/2023 ( Hospital Day 0 days ) Attending:Tha Winters MD ID: Huber Mosher is a 67 y.o. 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 Patient states he was in his normal state of health until 10 PM last night (Monday), when he developed sudden onset 8/10 left sided chest pain with radiation into his shoulder. He had associated shortness of breath but denied any diaphoresis, lightheadedness, dizziness, nausea, or syncope. He presented to [place] where initial EKG showed borderline LITO in [...] started on a heparin drip. Transferred to [facility] [place] further care. On arrival, patient is [...] 27%). A recent echo on 03/29 at [place] showed an EF 46% with regional WMA. ROS: Per HPI. PMH PSH Allergies: Home Medications: Current Outpatient Medications Medication Instructions acetaminophen (TYLENOL) 650 mg, Oral, 3 TIMES DAILY atorvastatin (LIPITOR) 40 mg, Oral, DAILY cholecalciferol (VITAMIN D3) 1,000 Units, Oral, DAILY darolutamide (NUBEQA) 600 mg, Oral, 2 TIMES DAILY, Call clinic before starting medication HYDROcodone-acetaminophen ([place]) 5-325 mg tablet 1 tablet, Oral, EVERY [...] no focal deficits noted Labs: Recent Labs 04/13/23 2107 WBC 5.5 HGB 9.0* HCT 27.4* PLATELET 318 MCV 96.1* Recent Labs 04/13/23 2107 NA 135 CL 102 CO2 21* K [...] Gas) No results found for: PHART, PO2ART, BFH5AHJ, EVS1AJG Microbiology: Imaging/Diagnostics: Assessment & Plan: Huber Mosher is a 67 y.o. 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 Given his high bleeding risk [...] #Routine Diet: Daily Healthy Menu Choices/Cardiac diet ([facility]) NPO diet (Give Meds) DVT Prophylaxis: None [...] including distal LM, ostial LAD severe stenosis, TACTICAL DEBRIEFER OFFICER of Lcx and severe stenosis of oRPDA. CT Surgery consulted - discussed with Dr. Rodgers, who will assess patient.Heparin gtt while awaiting revascularization. Diurese given elevated LVEDP. Aspirin, statin. Will slowly titrate GDMT. Willis Maldonado MD, [facility] Staff Practice Nurse documented in this encounter Miscellaneous Notes * [...] Care Goal: Plan of Care Review 04/19/2023 1322 by Ashleigh Babcock, RN Outcome: Outcome (s) achieved 04/19/2023 0950 by Ashleigh Babcock RN Outcome: Ongoing (Interventions Implemented as Appropriate) Goal: Patient-Specific Goal (Individualized) 04/19/2023 1322 by Ashleigh Babcock RN Outcome: Outcome (s) achieved 04/19/2023 0950 by Ashleigh Babcock RN Outcome: Ongoing (Interventions Implemented as Appropriate) Goal: Absence of Hospital-Acquired Illness or Injury 04/19/2023 1322 by Ashleigh Babcock RN Outcome: Outcome (s) achieved 04/19/2023 0950 by Ashleigh Babcock RN Outcome: Ongoing (Interventions Implemented as Appropriate) Goal: Optimal Comfort and Wellbeing 04/19/2023 132 by Ashleigh Babcock RN Outcome: Outcome (s) achieved 04/19/2023 0950 by Ashleigh Babcock RN Outcome: Ongoing (Interventions Implemented as Appropriate) Goal: Readiness for Transition of Care 04/19/2023 1322 by Ashleigh Babcock RN Outcome: Outcome (s) achieved 04/19/2023 0950 by Ashleigh Babcock RN Outcome: Ongoing (Interventions Implemented as Appropriate) Problem: Chest Pain Goal: Resolution of Chest Pain Symptoms 04/19/2023 1322 by Ashleigh Babcock RN Outcome: Outcome (s) achieved 04/19/2023 0950 by Ashleigh Babcock RN Outcome: Ongoing (Interventions Implemented as Appropriate) Problem: Arrhythmia/Dysrhythmia (Cardiac Catheterization) Goal: Stable Heart Rate and Rhythm 04/19/2023 1322 by Ashleigh Babcock RN Outcome: Outcome (s) achieved 04/19/2023 0950 by Ashleigh Babcock RN Outcome: Ongoing (Interventions Implemented as Appropriate) Problem: Bleeding (Cardiac Catheterization) Goal: Absence of Bleeding 04/19/2023 1322 by Ashleigh Babcock RN Outcome: [...] in the outpatient cardiac rehabilitation program at [facility] was discussed. Patient agrees to a referral [...] Operative Note Patient Name: Huber Mosher : [id number] MR#: [id number] Case Date: 04/18/2023 Surgeon: Surgeon(s) and Role: * Citlalli Esposito MD - Primary * Puam Hernandez MD - Fellow - Assisting Preoperative diagnosis: NSTEMI Postoperative diagnosis: NSTEMI Preliminary Cardiac Catheterization Procedure Note: Procedure(s) performed: Right Femoral Vein Access - 6 [place] Right Femoral Access ultrasound guided - 7 [place] --> Perclose Coronary Angiography Right Heart Cath IVUS PCI-Stent Preliminary findings: Femoral Angio: Insertion site in the mid common femoral artery Coronary Angiography: Anatomically normal right dominant circulation LMCA: 80% distal LM disease LAD: 80% ostial LAD, 80% mid LAD, 80% distal LAD, 70% ostial D1 LCx: Ostial TACTICAL DEBRIEFER OFFICER RCA: Not injected Contrast: 105 ccs Pre/Post: Hemodynamics: Conclusion: - Successful mini-crush of the LM/LAD/LCX bifurcation with a 3.0 x 34 mm Hebert [place] in the LCX and 3.5 x 26 mm [place] ARJUN to the LAD. - Normal cardiac [...] 04/18/2023 7:05 AM EST Blood completed yesterday 1950 without reaction. 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 [employer] GOAL OUTCOME EVALUATION: Problem: Adult Inpatient [...] 04/24/2023 Office of Care Management Surgery Team Health Worker [email or web address] Pager #[phone] * Plan of Care - Aide Jenkins [...] of Care Goal: Plan of Care Review 04/15/2023 133 by Alisa Garcia RN Outcome: Ongoing (Interventions Implemented as Appropriate) 04/15/2023 1339 by Alisa Garcia RN Outcome: Ongoing (Interventions Implemented as Appropriate) Goal: Patient-Specific Goal (Individualized) 04/15/2023 1339 by Alisa Garcia RN Outcome: Ongoing (Interventions Implemented as Appropriate) 04/15/2023 1339 by Alisa Garcia RN Outcome: Ongoing (Interventions Implemented as Appropriate) Goal: Absence of Hospital-Acquired Illness or Injury 04/15/2023 133 by Alisa Garcia RN Outcome: [...] Chest Pain Symptoms 04/15/2023 1339 by Alisa Garcia RN Outcome: Ongoing (Interventions Implemented as Appropriate) 04/15/20231338 by Alisa Garcia RN Outcome: Ongoing (Interventions Implemented as Appropriate) Problem: Arrhythmia/Dysrhythmia (Cardiac Catheterization) Goal: Stable Heart Rate and Rhythm 04/15/20231338 by Alisa Garcia RN Outcome: Ongoing (Interventions Implemented as Appropriate) 04/15/20231338 by Alisa Garcia RN Outcome: Ongoing (Interventions Implemented as Appropriate) Problem: Bleeding (Cardiac Catheterization) Goal: Absence of Bleeding 04/15/20231338 by Alisa Garcia RN Outcome: Ongoing (Interventions Implemented as Appropriate) 04/15/20231338 by Alisa Garcia RN Outcome: Ongoing (Interventions Implemented as Appropriate) Problem: Contrast-Induced Injury Risk (Cardiac Catheterization) Goal: Absence of Contrast-Induced Injury 04/15/2023 1339 by Alisa Garcia RN Outcome: Ongoing (Interventions Implemented as Appropriate) 04/15/20239 by Alisa Garcia RN Outcome: Ongoing (Interventions Implemented as Appropriate) Problem: Embolism (Cardiac Catheterization) Goal: Absence of Embolism Signs and Symptoms 04/15/2023 1339 by Alisa Garcia RN Outcome: Ongoing (Interventions Implemented as Appropriate) 04/15/20231338 by Alisa Garcia RN Outcome: Ongoing (Interventions Implemented as Appropriate) Problem: Ongoing Anesthesia/Sedation Effects (Cardiac Catheterization) Goal: Anesthesia/Sedation Recovery 04/15/2023 1339 by Alisa Garcia RN Outcome: [...] his prostate cancer. 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 Never , no children. HE has a sister who is flyingto see him. He currently live alone. 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 HPI per Dr. Maria Huber Mosher is a 67 y.o. 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 Patient states he was in his normal state of health until 10 PM last night (Monday), when he developed sudden onset 8/10 left sided chest pain with radiation into his shoulder. He had associated shortness of breath but denied any diaphoresis, lightheadedness, dizziness, nausea, or syncope. He presented to [place] where initial EKG showed borderline LITO in [...] started on a heparin drip. Transferred to [facility] [place] further care. On arrival, patient is [...] 27%). A recent echo on 03/29 at [place] showed an EF 46% with regional WMA. [...] carcinoma, consistent with prostatic origin (see discussion) [place] light chain deposition disease Gout Cardiomyopathy 09/2022: EF 27%, apical AK Retroperitoneal lymphadenopathy Hydronephrosis Pleural effusion, bilateral Bilateral lower extremity edema PSHX: Past Surgical History: Procedure Laterality Date CATARACT REMOVAL WITH IMPLANT 2019 CT GUIDED BIOPSY LYMPH NODE(CHEST/ABD/PELVIS) 09/30/2022 CT Guided Biopsy Lymph Node (Chest/Abd/Pelvis) 09/30/[address] [facility] RAD CT SCAN HAND SURGERY Left 1997 Left thumb repair surgery INGUINAL HERNIA REPAIR 1955 as an infant PRO ALLOGRAFT FOR SPINE SURGERY ONLY MORSELIZED Bilateral 03/17/2022 ALLOGRAFT FOR SPINE SURGERY ONLY; MORSELIZED (WRVU *) performed by Bebe Hatfield MD at [facility] MAIN OR PRO ARTHRD ANT INTERDY CERVCL BELW C2 EA ADDL NTRSPC Bilateral 03/17/2022 ARTHRODESIS ANT INTERBDY CERVCL BELOW C2 EA ADDL INTRSPACE (WRVU 6.5) performed by Bebe Hatfield MD at [facility] MAIN OR PRO ARTHRODESIS, ANT INTERBODY,DECOMPRESSION; CERVICAL BELOW C2 Bilateral 03/17/2022 ARTHRODESIS, ANT INTERBODY,DECOMPRESSION; CERVICAL BELOW C2 (WRVU 25) performed by Bebe Hatfield MD at [facility] MAIN OR PRO CYSTOSCOPY, INSERT URETERAL STENT Bilateral 09/29/2022 CYSTO, STENT PLACEMENT (WRVU 2.82) performed by Evangelist Castañeda MD at [facility] MAIN OR PRO INSERT BIOMCHN DEV INTERVERTEBRAL DSC SPC W/ARTHRD Bilateral 03/17/2022 INSERTION INTERBODY BIOMECH DEV TO INTERVEBRAL DISC SPACE, EA INTERSPACE (WRVU 4.25) performed by Bebe Hatfield MD at [facility] MAIN OR US GUIDED BIOPSY PROSTATE WITH URONAV FUSION 12/20/2021 US Guided Biopsy Prostate with Uronav Fusion 12/20/2021 [facility] RAD ULTRASOUND MEDS: Scheduled Meds: lidocaine 1 [...] Vascular Unit Level 3 Wing B at [facility] Weight 85.6 kg (188 lb 11.4 oz) [...] QTC Calculated (Bezet) 424 ms Calculated P [place] 43 degrees Calculated R [place] 50 degrees Calculated T [place] -143 degrees INTERPRETATION Normal sinus rhythm ST [...] for each patient, but based on ARASENStrial (https://www.nejm.org/doi/10.1056/LGAUop6544429), the 4 year overall survival was 62.7%. [...] Hima Reyes M.D. Hematology/Oncology Fellow Pager # [phone] 04/14/23, 5:31 PM Hematology/[place] [address] * Initial Assessments - Nancy Lai RN - 04/14/2023 2:21 PM EST Office of Care Management Initial Assessment Nancy Lai RN reviewed record and discussed patient with Care Team. Source of Information: Team, bedside nurse, medical record, and Patient. Introduced self/reviewed role; services accepted. Admitted From: Transfer from another hospital Location: [facility] Reason for Hospitalization: Chest and shoulder pain [...] surrogate would be surrogate decision maker per [place] surrogate decision making law. (Only good for 180 days) Any patient receiving care in [place] must abide by [place] law. 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) Current DME: none Home Address confirmed as: [address] [address] Social & Family Supports: All names listed below confirmed with patient as current and correct Extended Emergency Contact Information Primary Emergency Contact: SANTA CARCAMO Address: [place] [address] [facility] Relation: Friend Secondary Emergency Contact: Ct [address] [...] Yes ; Prescription Coverage: Yes Preferred Pharmacy: [facility] [address] [place] [address] [place] [address] [facility] Home Delivery - [address] [facility] [address] [facility] - [address] [place] [address] [facility], [facility] ([place] - [address] [phone] [place] Status: Patient is a : No Primary Care Provider confirmed: JESSE Nesbitt [phone] Patient/Caregiver Goals of Treatment: To be able to return home soon Potential Needs for Transition of Care: none Agency Referrals: Not Applicable at this time. Transportation: no concerns Transportation Anticipated: family or friend will provide Concerns to be Addressed: discharge planning Assessment: Patient is admitted to Cardiology service for NSTEMI. Pt is functionally independent, lives alone prior to hospitalization. SisterCt lives in [place] but is the patient's SDM. Plan: Will continue to monitor d/c needs. A member of the Care Management team will continue to monitor progress, follow for continuity of care and assist with transition of care planning. STAR Garcia, RN Inpatient Health Worker- Cardiology Office of Care Management Pager #: [phone] * Plan of Care - Estefani Crowder RN - 04/14/2023 6:59 AM EST NAEON. VSS. SR w/ 1* AVB on tele. [...] 04/13/2023 7:12 PM EST Pt arrived to [facility] around 1730. Pt AOx4.VSS on RA. Pt [...] PM EDT Office Visit Hematology/Oncology at [address] [phone] Fiordaliza Downing APRN [facility] [place] [address] 11/10/2023 9:00 AM EDT Appointment [place] [phone] Thomas Curtis MD [facility] HEMATOLOGY [place] [address] 11/21/2023 11:00 AM EDT Infusion Hematology Oncology at [address] [phone] 12/05/2023 1:30 PM EDT Office Visit Hematology/Oncology at [address] [phone] Thomas Curtis MD [facility] HEMATOLOGY [place] [address] Fiordaliza Downing APRN [facility] [place] [address] 12/26/2023 9:00 AM EDT Appointment [place] [phone] Thomas Curtis MD [facility] HEMATOLOGY [place] [address] 02/09/2024 8:00 AM EST Appointment [place] [phone] Thomas Curtis MD [facility] HEMATOLOGY [place] [address] 03/18/2024 3:00 PM EST Office Visit Cardiology at [address] [phone] Sameer Rudolph MD [facility] [place] [address] 03/22/2024 9:00 AM EST Appointment [place] [phone] Thomas Curtis MD [facility] HEMATOLOGY [place] [address] 08/23/2024 Hospital Encounter [place] [phone] True Juarez MD [facility] [place] [address] Scheduled Procedures Name Priority Associated Diagnoses Date/Ti [...] 4:25 AM EST DIFFERENTIAL, AUTOMATED Routine 04/16/19 24 4:25 AM EST CBC (WITH DIFF) Routine [...] 9:07 PM EST DIFFERENTIAL, AUTOMATED Routine 04/13/19 24 9:07 PM EST CBC (WITH DIFF) Routine [...] 5 PM EST 04/19/2023 12:15 PM EST Willis Maldonado MD POINT OF CARE TEST O RDERABLES [facility] [place] [address] * POCT Glucose (04/19/2023 7:40 AM EST) Glucose, POC 173 65 - 199 mg/dL [facility] Comment: Supplemental ranges: <140 mg/dL before meals <180 mg/dL all other times of the day Blood 04/19/2023 7:40 AM EST 04/19/2023 7:40 AM EST Willis Maldonado MD POINT OF CARE TEST O RDERABLES [facility] [place] [address] * (ABNORMAL) Differential, Automated (04/19/2023 4:00 AM EST) [facility] Neutrophil % 51.7 % [facility] Neutrophil Absolute 2.83 1.70 - 6.10 x10(3)/mc L [facility] Lymph % 20.3 % [facility] Lymphocytes Abs 1.1 0.9 - 3.2 x10(3)/mc L [facility] Monocyte % 17.0 % [facility] Monocyte Abs 0.9 0.3 - 0.9 x10(3)/mc L [facility] Eos % 9.0 % [facility] Eosinophils Abs 0.5(H) 0.0 - 0.4 x10(3)/mc L [facility] Basophil % 1.5 % [facility] Baso Absolute 0.1 0.0 - 0.1 [...] HEMATOLOGY ORDERABLE S [facility] [place] [address] * (ABNORMAL) Hemogram (04/19/2023 4:00 AM EST) White Blood Cell 5.5 4.0 - 9.5 x10(3)/mc L [facility] Red Blood Cell 2.88(L) 4.58 - 5.54 x10(6)/mc L [facility] Hemoglobin 9.1(L) [...] [facility] NRBC% auto 0.0 % [facility] NRBC Absolute 0.000 0.000 - 0.000 x10(3)/mc L [facility] Blood 04/19/2023 4:00 AM EST 04/19/2023 4:16 AM EST Narrative Resulting Agency Comment Spec In Lab Milli Maria MD HEMATOLOGY ORDERABLE S [facility] [place] [address] * Phosphorus (04/19/2023 4:00 AM EST) Phosphorus 3.9 2.5 - 4.5 mg/dL [facility] Blood 04/19/2023 4:00 AM EST 04/19/2023 4:16 AM EST Narrative Resulting Agency Comment Spec In Lab Tha Winters MD CHEMISTRY ORDERABLE S Performing Organization Address City/[facility] Co de Phone Number [facility] [place] [address] * Magnesium (04/19/2023 4:00 AM EST) Magnesium 0.79 0.69 - 1.07 mmol/L [facility] Blood 04/19/2023 4:00 AM EST 04/19/2023 4:16 AM EST Narrative Resulting Agency Comment Spec In Lab Tha Winters MD CHEMISTRY ORDERABLE S Performing Organization Address [facility] de Phone Number [facility] [place] [address] * (ABNORMAL) Basic Metabolic Panel (non-fasting) (04/19/2023 4:00 AM EST) Glucose 144 65 - 199 mg/dL [facility] Comment:Diabetes: >=200 mg/d L plus symptoms Blood Urea Nitrogen 26(H) 10 - 20 mg/dL [facility] Creatinine 1.52(H) 0.80 - 1.50 mg/dL [facility] Sodium 136 135 - 145 mmol/L [facility] Potassium 4.5 3.5 - 5.0 mmol/L [facility] Comment: Please note: ??Patients with WBC >100,000 may have falsely elevated Potassium levels. ??For accurate Potassium quantification in these patients send serum separator tube (gold top) for subsequent determinations. ??Contact the Clinical Chemistry Laboratory if there are any questions. Chloride 106 98 - 107 mmol/L [facility] Carbon Dioxide 19(L) 22 - 31 mmol/L [facility] Anion Gap 11 5 - 15 mmol/L [facility] Calcium 8.8 8.5 - 10.5 mg/dL [facility] Est Glomerular Filtration Rate 50(L) >=60 mL/min/1. 73 m?? [facility] Comment: This patient's estimated GFR [...] MD CHEMISTRY ORDERABLE S Performing Organization Address [facility] Co de Phone Number [facility] [place] [address] * POCT Glucose (04/19/2023 3:54 AM EST) Glucose, POC 153 65 - 199 mg/dL [facility] Comment: Supplemental ranges: <140 mg/dL before meals <180 mg/dL all other times of the day Blood 04/19/2023 3:54 AM EST 04/19/2023 3:54 AM EST Willis Maldonado MD POINT OF CARE TEST O DANIEL Performing Organization Address [facility] Co de Phone Number [facility] [place] [address] * POCT Glucose (04/18/2023 11:24 PM EST) Glucose, POC 135 65 - 199 mg/dL [facility] Comment: Supplemental ranges: <140 mg/dL before meals <180 mg/dL all other times of the day Blood 04/18/2023 11:2 4 PM EST 04/18/2023 11:24 PM EST Willis Maldonado MD POINT OF CARE TEST O DANIEL Performing Organization Address [facility] Co de Phone Number [facility] [place] [address] * POCT Glucose (04/18/2023 8:17 PM EST) Glucose, POC 178 65 - 199 mg/dL [facility] Comment: Supplemental ranges: <140 mg/dL before meals <180 mg/dL all other times of the day Blood 04/18/2023 8:17 PM EST 04/18/2023 8:17 PM EST Willis Maldonado MD POINT OF CARE TEST O RDERABART Performing Organization Address City/[facility] Co de Phone Number [facility] [place] [id number] * POCT Glucose (04/18/2023 4:29 PM EST) Glucose, POC 124 65 - 199 mg/dL [facility] Comment: Supplemental ranges: <140 mg/dL before meals <180 mg/dL all other times of the day Blood 04/18/2023 4:29 PM EST 04/18/2023 4:29 PM EST Willis Maldonado MD POINT OF CARE TEST O DANIEL Performing Organization Address [facility] Co de Phone Number [facility] [place] [address] * EKG 12 Lead (04/18/2023 12:34 PM EST) Ventricular rate 68 BPM MUSE SYSTEM Atrial Rate 68 BPM MUSE SYSTEM P-R Interval 124 ms MUSE SYSTEM QRS Duration 98 ms MUSE SYSTEM Q-T Interval 440 ms MUSE SYSTEM QTC Calculated (Bezet) 467 ms MUSE SYSTEM Calculated P [place] 49 degrees MUSE SYSTEM Calculated R [place] 51 degrees MUSE SYSTEM Calculated T [place] -106 degrees MUSE SYSTEM INTERPRETATION Normal sinus rhythm ST & T wave abnormality, consider anterolateral ischemia Prolonged QT Abnormal ECG When compared with ECG of 13-APR-2023 22:01, No significant change was found Confirmed by MD Jerome, Pancho Carver ([id number]) on 04/23/2023 10:45:27 PM MUSE SYSTEM 04/18/2023 12:3 4 PM EST 04/23/2023 10:45 PM EST Willis Maldonado MD ECG ORDERABLES MUSE SYSTEM * POCT Glucose (04/18/2023 12:26 PM EST) Glucose, POC 145 65 - 199 mg/dL [facility] Comment: Supplemental ranges: <140 mg/dL before meals <180 mg/dL all other times of the day Blood 04/18/2023 12:2 6 PM EST 04/18/2023 12:26 PM EST Willis Maldonado MD POINT OF CARE TEST O RDERABLES Performing Organization Address [facility] Co de Phone Number [facility] [place] [address] * CARDIAC CATHETERIZATION (04/18/2023 12:15 PM EST) Anatomical Region Laterality Modality Other Narrative 04/19/2023 4:47 PM EST ?[facility] ? Cardiac Catheterization/Intervention Report ? Patient Name: MassimoHuber. ? Procedure Date: 04/18/2023 ? A #: [id number] ? Primary Physician: Citlalli Esposito I ? Case #: [id number] ? File Name: [id number] ? Catheterization Order Number: [id number] ? [facility] ? Final Report [place], [place] ? Patient Name: ? Huber Mosher ?ID#: ?[id number] ? : ?1955 ? Procedure Date: ? [...] was designated as ASA Class III. The HA clinical ?frailty scale is 5: Mildly Frail. [...] procedure was Urgent. The indication for ?the slab lifting engineer visit is ACS greater than 24 hrs. [...] atmospheres. ??A premounted 3.50 x 26 mm [place] (ARJUN) ? was deployed with a maximum [...] atmospheres. ??A premounted 3.00 x 34 mm [place] (ARJUN) ? was deployed with a maximum [...] dose administered prior to arrival in the slab lifting engineer. ?Recommended anti-platelet/anti-thrombotic regimen: ?Continue aspirin 81 mg daily for 12 months then stop. ?Continue clopidogrel 75 mg daily for indefinitely. ?These recommendations are made at the time of the intervention. Patient ?and provider preferences or a changing clinical situation may require ?modification of this regimen. Consult [facility] for ?questions. ?This patient has [...] against any medical treatment. Consult ?http://tools.acc.org/DAPTriskapp/#!/content/calculator/ or [facility] ?Interventional Cardiology for questions ? Conclusions: ?* [...] Procedure Note Citlalli Esposito MD - 04/19/2023 [facility] Cardiac Catheterization/Intervention Report Patient Name: Huber MosherGael Procedure Date: 04/18/2023 A #: [id number] Primary Physician: Citlalli Esposito I Case #: [id number] File Name: [id number] Catheterization Order Number: [id number] [facility] FinalReport [place], [place] Patient Name: Huber Scott Massimo ID#:[id number] :1955 Procedure Date: April 18, 2023 Case #: [id number] Room: 5 Case Physician: Citlalli Esposito M.D. Start: 08:55 Fellow: Puma Hernandez M.D. Admission:04/13/2023 Referring Physician: Roman Barajas M.D. Procedures: * Coronary Angiography * Left [...] diagnostic procedure was Urgent. The indicationfor the slab lifting engineer visit is ACS greater than 24 hrs. [...] time was 47.1 minutes, dose area product jrd685.00 Gy/cm2 and air kerma was 2,735 mGY. [...] atmospheres. A premounted 3.50 x 26 mm [place](ARJUN) was deployed with a maximum inflation pressure [...] atmospheres. A premounted 3.00 x 34 mm [place](ARJUN) was deployed with a maximum inflation pressure [...] dose administered prior to arrival in the slab lifting engineer. Recommended anti-platelet/anti-thrombotic regimen: Continue aspirin 81 mg daily for 12 months then stop. Continue clopidogrel 75 mg daily for indefinitely. These recommendations are made at the time of the intervention.Patient and provider preferences or a changing clinical situation mayrequire modification of this regimen. Consult [facility]iologyfor questions. This patient has a [...] or against any medical treatment.Consult http://tools.acc.org/DAPTriskapp/#!/content/calculator/ or [facility] for questions Conclusions: * Obstructive [...] * POCT Glucose (04/18/2023 7:30 AM EST) Glucose, POC 165 65 - 199 mg/dL [facility] Comment: Supplemental ranges: <140 mg/dL before meals <180 mg/dL all other times of the day Blood 04/18/2023 7:30 AM EST 04/18/2023 7:30 AM EST Willis Maldonado MD POINT OF CARE TEST O RDERABART Performing Organization Address City/[facility]/ZIP Co de Phone Number [facility] [place] [address] * POCT Glucose (04/18/2023 3:39 AM EST) Glucose, POC 157 65 - 199 mg/dL [facility] Comment: Supplemental ranges: <140 mg/dL before meals <180 mg/dL all other times of the day Blood 04/18/2023 3:39 AM EST 04/18/2023 3:39 AM EST Willis Maldonado MD POINT OF CARE TEST O DANIEL Performing Organization Address [facility] Co de Phone Number [facility] [place] [address] * (ABNORMAL) Differential, Automated (04/18/2023 3:30 AM EST) Neutrophil % 33.9 % [facility] Neutrophil Absolute 1.41(L) 1.70 - 6.10 x10(3)/mc L [facility] Lymph % 32.2 % [facility] Lymphocytes Abs 1.3 0.9 - 3.2 x10(3)/mc L [facility] Monocyte % 18.3 % [facility] Monocyte Abs 0.8 0.3 - 0.9 x10(3)/mc L [facility] Eos % 13.7 % [facility] Eosinophils Abs 0.6(H) 0.0 - 0.4 x10(3)/mc L [facility] Basophil % 1.9 % [facility] Baso Absolute 0.1 0.0 - 0.1 [...] HEMATOLOGY ORDERABLE S [facility] [place] [address] * (ABNORMAL) Hemogram (04/18/2023 3:30 AM EST) White Blood Cell 4.2 4.0 - 9.5 x10(3)/mc L [facility] Red Blood Cell 2.91(L) 4.58 - 5.54 x10(6)/mc L [facility] Platelet 321 145 - 357 x10(3)/mc L [facility] RDW Standard Deviation 61.3(H) 36.0 - 45.0 fL [facility] RDW coefficient of variation 18.2(H) 11.4 - 13.8 % [facility] Mean Platelet Volume 9.6 7.6 - 12.9 fL [facility] NRBC% auto 0.0 % [facility] NRBC Absolute 0.000 0.000 - 0.000 x10(3)/mc L [facility] Blood 04/18/2023 3:30 AM EST 04/18/2023 3:55 AM EST Narrative Resulting Agency Comment Spec In Lab Milli Maria MD HEMATOLOGY ORDERABLE S Performing Organization Address City/[facility]/ZIP Co de Phone Number [facility] [place] [address] * Heparin (unfractionated) Level (04/18/2023 3:30 AM EST) UF Heparin 0.36 IU/mL [facility] Comment: Heparin (anti-Xa) levels should be [...] MD HEMATOLOGY ORDERABL ES Performing Organization Address City/[facility] Co de Phone Number [facility] [place] [address] * Phosphorus (04/18/2023 3:30 AM EST) [facility] Phosphorus 3.6 2.5 - 4.5 mg/dL [facility] Blood 04/18/2023 3:30 AM EST 04/18/2023 3:54 AM EST Narrative Resulting Agency Comment Spec In Lab Tha Winters MD CHEMISTRY ORDERABLE S Performing Organization Address City/[facility]/ZIP Co de Phone Number [facility] [place] [address] * Magnesium (04/18/2023 3:30 AM EST) Pathologist [facility] Magnesium 0.83 0.69 - 1.07 mmol/L [facility] Blood 04/18/2023 3:30 AM EST 04/18/2023 3:54 AM EST Narrative Resulting Agency Comment Spec In Lab Tha Winters MD CHEMISTRY ORDERABLE S Performing Organization Address [facility] Co de Phone Number [facility] [place] [address] * (ABNORMAL) Basic Metabolic Panel (non-fasting) (04/18/2023 [...] MD CHEMISTRY ORDERABLE S Performing Organization Address City/[facility]/ZIP Co de Phone Number [facility] [place] [address] * POCT Glucose (04/17/2023 11:32 PM EST) Glucose, POC 157 65 - 199 mg/dL [facility] Comment: Supplemental ranges: <140 mg/dL before meals <180 mg/dL all other times of the day Blood 04/17/2023 11:3 2 PM EST 04/17/2023 11:32 PM EST Willis Maldonado MD POINT OF CARE TEST O DANIEL Performing Organization Address City/[facility] Co de Phone Number [facility] [place] [address] * Transfuse RBC (04/17/2023 7:45 PM EST) Willis Maldonado MD NURSING TREATMENT OR DERABLES - BLOOD ADMIN * Transfuse RBC (04/17/2023 7:45 PM EST) Willis Maldonado MD NURSING TREATMENT OR DERABLES - BLOOD ADMIN * POCT Glucose (04/17/2023 7:31 PM EST) Glucose, POC 155 65 - 199 mg/dL [facility] Comment: Supplemental ranges: <140 mg/dL before meals <180 mg/dL all other times of the day Blood 04/17/2023 7:31 PM EST 04/17/2023 7:31 PM EST Willis Maldonado MD POINT OF CARE TEST O SHERRONERABART Performing Organization Address City/[facility]/ZIP Co de Phone Number [facility] [place] [address] * (ABNORMAL) POCT Glucose (04/17/2023 4:10 PM EST) Glucose, POC 235(H) 65 - 199 mg/dL [facility] Comment: Supplemental ranges: <140 mg/dL before meals <180 mg/dL all other times of the day Blood 04/17/2023 4:10 PM EST 04/17/2023 4:10 PM EST Willis Maldonado MD POINT OF CARE TEST O RDERABLES Performing Organization Address City/[facility]/ZIP Co de Phone Number [facility] [place] [address] * ABORH Recheck Status (04/17/2023 2:16 PM EST) ABORH Recheck Order Order Placed [facility] ABORH Type Recheck Completed [facility] Blood 04/17/2023 2:16 PM EST 04/17/2023 2:27 PM EST Narrative Resulting Agency Comment Spec In Lab Tomer Hernandez MD BLOOD BANK LAB ORDE ANKIT Performing Organization Address [facility] Co de Phone Number [facility] [place] [address] * Type and screen (MC/CGP/BOBBI) (04/17/2023 2:16 PM EST) ABORH Type A POSITIVE [facility] Patient BB History Not Found [facility] Expires at [id number] on: 04/20/2023 [facility] Ab Screen Interp Negative [facility] Blood 04/17/2023 2:16 PM EST 04/17/2023 2:16 PM EST Narrative [facility] - 04/17/2023 2:16 PM EST This Type and Screen result is only valid at the [facility] Resulting Agency Comment Spec In Lab Willis Maldonado MD BLOOD BANK LAB ORDER CONCHITA Performing Organization Address [facility] Co de Phone Number [facility] [place] [address] * POCT Glucose (04/17/2023 10:47 AM EST) Glucose, POC 128 65 - 199 mg/dL [facility] Comment: Supplemental ranges: <140 mg/dL before meals <180 mg/dL all other times of the day Blood 04/17/2023 10:4 7 AM EST 04/17/2023 10:47 AM EST Willis Maldonado MD POINT OF CARE TEST O RDERABART Performing Organization Address [facility] Co de Phone Number [facility] [place] [address] * POCT Glucose (04/17/2023 7:40 AM EST) Glucose, POC 170 65 - 199 mg/dL [facility] Comment: Supplemental ranges: <140 mg/dL before meals <180 mg/dL all other times of the day Blood 04/17/2023 7:40 AM EST 04/17/2023 7:40 AM EST Willis Maldonado MD POINT OF CARE TEST O DANIEL Performing Organization Address [facility] de Phone Number [facility] [place] [address] * POCT Glucose (04/17/2023 3:25 AM EST) Glucose, POC 149 65 - 199 mg/dL [facility] Comment: Supplemental ranges: <140 mg/dL before meals <180 mg/dL all other times of the day Blood 04/17/2023 3:25 AM EST 04/17/2023 3:25 AM EST Willis Maldonado MD POINT OF CARE TEST O DANIEL Performing Organization Address [facility] de Phone Number [facility] [place] [address] * (ABNORMAL) Differential, Automated (04/17/2023 3:15 AM EST) Neutrophil % 34.3 % [facility] Neutrophil Absolute 1.37(L) 1.70 - 6.10 x10(3)/mc L [facility] Lymph % 28.9 % [facility] [place] [facility] Lymphocytes Abs 1.2 0.9 - 3.2 x10(3)/mc L [facility] Monocyte % 20.1 % [facility] Monocyte Abs 0.8 0.3 - 0.9 x10(3)/mc L [facility] Eos % 14.1 % [facility] [place] [facility] Eosinophils Abs 0.6(H) 0.0 - 0.4 x10(3)/mc L [facility] Basophil % 2.3 % [facility] Baso Absolute 0.1 0.0 - 0.1 x10(3)/mc L [facility] Immature Gran % 0.30 % [facility] Comment: Immature granulocytes(IG's)percentage and absolute count will include metamyelocytes, myelocytes, and promyelocytes. Blood smears from CBCs yielding IG's will be scanned manually for concordance. If this scan disagrees with the automated IG or if promyelocytes are noted, a manual differential will be performed. Immature Gran Absolute 0.01 0.00 - 0.04 x10(3)/ L [facility] Blood 04/17/2023 3:15 AM EST 04/17/2023 3:34 AM EST Narrative Resulting Agency Comment Spec In Lab Milli Maira MD HEMATOLOGY ORDERABLE S Performing Organization Address City/State/[facility] Co de Phone Number [facility] [place] [address] * (ABNORMAL) Hemogram (04/17/2023 3:15 AM EST) White Blood Cell 4.0 4.0 - 9.5 x10(3)/mc L [facility] Red Blood Cell 2.54(L) 4.58 - 5.54 x10(6)/mc L [facility] Hemoglobin 8.0(L) 13.7 - 16.5 g/dL [...] Platelet 299 145 - 357 x10(3)/mc L [facility] RDW Standard Deviation 59.7(H) 36.0 - 45.0 fL [facility] RDW coefficient of variation 17.5(H) 11.4 - 13.8 % [facility] Mean Platelet Volume 9.7 7.6 - 12.[address] [facility] NRBC% auto 0.0 % [facility] NRBC Absolute 0.000 0.000 - 0.000 x10(3)/mc L [facility] Blood 04/17/2023 3:15 AM EST 04/17/2023 3:34 AM EST Narrative Resulting Agency Comment Spec In Lab Milli Maria MD HEMATOLOGY ORDERABLE S Performing Organization Address City/[facility]/ZIP Co de Phone Number [facility] [place] [address] * Heparin (unfractionated) Level (04/17/2023 3:15 AM EST) UF Heparin 0.41 IU/mL [facility] Comment: Heparin (anti-Xa) levels should [...] MD HEMATOLOGY ORDERABL ES Performing Organization Address City/[facility] Co de Phone Number [facility] [place] [address] * Phosphorus (04/17/2023 3:15 AM EST) Phosphorus 4.2 2.5 - 4.5 mg/dL [facility] Blood 04/17/2023 3:15 AM EST 04/17/2023 3:34 AM EST Narrative Resulting Agency Comment Spec In Lab Tha Winters MD CHEMISTRY ORDERABLE S Performing Organization Address City/[facility]/ZIP Co de Phone Number [facility] [place] [address] * Magnesium (04/17/2023 3:15 AM EST) Magnesium 0.85 0.69 - 1.07 mmol/L [facility] Blood 04/17/2023 3:15 AM EST 04/17/2023 3:34 AM EST Narrative Resulting Agency Comment Spec In Lab Tha Winters MD CHEMISTRY ORDERABLE S Performing Organization Address [facility] Co de Phone Number [facility] [place] [address] * (ABNORMAL) Basic Metabolic Panel (non-fasting) (04/17/2023 3:15 AM EST) Glucose 135 65 - 199 mg/dL [facility] Comment:Diabetes: >=200 mg/d L plus symptoms Blood Urea Nitrogen 33(H) 10 - 20 mg/dL [facility] Creatinine 1.75(H) 0.80 - 1.50 mg/dL [facility] Sodium 138 135 - 145 [...] Carbon Dioxide 22 22 - 31 mmol/L [facility] Anion Gap 12 5 - 15 mmol/L [facility] Calcium 8.8 8.5 - 10.5 mg/dL [facility] Est Glomerular Filtration Rate 42(L) >=60 mL/min/1. 73 m?? [facility] Comment: This patient's estimated GFR [...] MD CHEMISTRY ORDERABLE S Performing Organization Address City/[facility]/ZIP Co de Phone Number [facility] [place] [address] * POCT Glucose (04/17/2023 12:06 AM EST) Glucose, POC 147 65 - 199 mg/dL [facility] Comment: Supplemental ranges: <140 mg/dL before meals <180 mg/dL all other times of the day Blood 04/17/2023 12:0 6 AM EST 04/17/2023 12:06 AM EST Willis Maldonado MD POINT OF CARE TEST O DANIEL Performing Organization Address [facility] Co de Phone Number [facility] [place] [address] * SCAN DOC: LAB (04/17/2023 12:00 AM [...] 8:15 PM EST 04/16/2023 8:15 PM EST Willis Maldonado MD POINT OF CARE TEST O RDERABLES [facility] [place] [address] * (ABNORMAL) POCT Glucose (04/16/2023 3:26 PM EST) Glucose, POC 226(H) 65 - 199 mg/dL [facility] Comment: Supplemental ranges: <140 mg/dL before meals <180 mg/dL all other times of the day Blood 04/16/2023 3:26 PM EST 04/16/2023 3:26 PM EST Willis Maldonado MD POINT OF CARE TEST O DANIEL Performing Organization Address [facility] Co de Phone Number [facility] [place] [address] * POCT Glucose (04/16/2023 11:21 AM EST) Glucose, POC 156 65 - 199 mg/dL [facility] Comment: Supplemental ranges: <140 mg/dL before meals <180 mg/dL all other times of the day Blood 04/16/2023 11:2 1 AM EST 04/16/2023 11:21 AM EST Willis Maldonado MD POINT OF CARE TEST O DANIEL Performing Organization Address [facility] Co de Phone Number [facility] [place] [address] * POCT Glucose (04/16/2023 7:33 AM EST) Glucose, POC 149 65 - 199 mg/dL [facility] Comment: Supplemental ranges: <140 mg/dL before meals <180 mg/dL all other times of the day Blood 04/16/2023 7:33 AM EST 04/16/2023 7:33 AM EST Willis Maldonado MD POINT OF CARE TEST O DANIEL Performing Organization Address City/[facility]/ZIP Co de Phone Number [facility] [place] [address] * (ABNORMAL) Differential, Automated (04/16/2023 4:25 AM EST) Neutrophil % 36.3 % [facility] Neutrophil Absolute 1.57(L) 1.70 - 6.10 x10(3)/[facility] Lymph % 30.6 % [facility] Lymphocytes Abs 1.3 0.9 - 3.2 x10(3)/[facility] Monocyte % 20.0 % [facility] Monocyte Abs 0.9 0.3 - 0.9 x10(3)/[facility] Eos % 10.6 % [facility] Eosinophils Abs 0.5(H) 0.0 - 0.4 x10(3)/[facility] Basophil % 2.3 % [facility] Baso Absolute 0.1 0.0 - 0.1 x10(3)/[facility] Immature Gran % 0.20 % [facility] Comment: Immature granulocytes(IG's)percentage and absolute count will include metamyelocytes, myelocytes, and promyelocytes. Blood smears from CBCs yielding IG's will be scanned manually for concordance. If this scan disagrees with the automated IG or if promyelocytes are noted, a manual differential will be performed. Immature Gran Absolute 0.01 0.00 - 0.04 x10(3)/[facility] Blood 04/16/2023 4:25 AM EST 04/16/2023 4:37 AM EST Narrative Resulting Agency Comment Spec In Lab Milli Maria MD HEMATOLOGY ORDERABLE S [facility] [place] [address] * (ABNORMAL) Hemogram (04/16/2023 4:25 AM EST) White Blood Cell 4.3 4.0 - 9.5 x10(3)/[facility] Red Blood Cell 2.62(L) 4.58 - 5.54 x10(6)/[facility] Hemoglobin 8.1(L) 13.7 - 16.5 g/dL [facility] Hematocrit 24.5(L) 40.5 - 48.5 % [facility] Mean Cell Volume 93.5(H) 82.9 - 93.[address] [facility] Mean Cell Hemoglobin 30.9 27.5 [...] [facility] NRBC% auto 0.0 % [facility] NRBC Absolute 0.000 0.000 - 0.000 x10(3)/mc L [facility] Blood 04/16/2023 4:25 AM EST 04/16/2023 4:37 AM EST Narrative Resulting Agency Comment Spec In Lab Milli Maria MD HEMATOLOGY ORDERABLE S [facility] [place] [address] * Heparin (unfractionated) Level (04/16/2023 4:25 AM EST) UF Heparin 0.37 IU/mL [facility] Comment: Heparin (anti-Xa) levels should be [...] MD HEMATOLOGY ORDERABL ES Performing Organization Address [facility] Co de Phone Number [facility] [place] [address] * (ABNORMAL) Phosphorus (04/16/2023 4:25 AM EST) Phosphorus 4.6(H) 2.5 - 4.5 mg/dL [facility] Blood 04/16/2023 4:25 AM EST 04/16/2023 4:37 AM EST Narrative Resulting Agency Comment Spec In Lab Tha Winters MD CHEMISTRY ORDERABLE S Performing Organization Address [facility] Phone Number [facility] [place] [address] * Magnesium (04/16/2023 4:25 AM EST) Magnesium 0.81 0.69 - 1.07 mmol/L [facility] Blood 04/16/2023 4:25 AM EST 04/16/2023 4:37 AM EST Narrative Resulting Agency Comment Spec In Lab Tha Winters MD CHEMISTRY ORDERABLE S Performing Organization Address [facility] Phone Number [facility] [place] [address] * (ABNORMAL) Basic Metabolic Panel (non-fasting) (04/16/2023 4:25 AM EST) Glucose 144 65 - 199 mg/dL [facility] Comment:Diabetes: >=200 mg/d L plus symptoms Blood Urea Nitrogen 38(H) 10 - 20 mg/dL [facility] Creatinine 1.79(H) 0.80 - 1.50 mg/dL [facility] Sodium 135 135 - 145 mmol/L [facility] Potassium 4.2 3.5 - 5.0 mmol/L [facility] Comment: Please note: ??Patients with [...] MD CHEMISTRY ORDERABLE S Performing Organization Address City/[facility]/ZIP Co de Phone Number [facility] [place] [address] * POCT Glucose (04/16/2023 4:05 AM EST) Glucose, POC 162 65 - 199 mg/dL [facility] Comment: Supplemental ranges: <140 mg/dL before meals <180 mg/dL all other times of the day Blood 04/16/2023 4:05 AM EST 04/16/2023 4:05 AM EST Willis Maldonado MD POINT OF CARE TEST O RDERABLES Performing Organization Address City/[facility]/ZIP Co de Phone Number [facility] [place] [address] * POCT Glucose (04/15/2023 11:50 PM EST) Glucose, POC 133 65 - 199 mg/dL [facility] Comment: Supplemental ranges: <140 mg/dL before meals <180 mg/dL all other times of the day Blood 04/15/2023 11:5 0 PM EST 04/15/2023 11:50 PM EST Willis Maldonado MD POINT OF CARE TEST O DANIEL Performing Organization Address City/[facility] Co de Phone Number [facility] [place] [address] * POCT Glucose (04/15/2023 9:43 PM EST) Glucose, POC 130 65 - 199 mg/dL [facility] Comment: Supplemental ranges: <140 mg/dL before meals <180 mg/dL all other times of the day Blood 04/15/2023 9:43 PM EST 04/15/2023 9:43 PM EST Willis Maldonado MD POINT OF CARE TEST O DANIEL Performing Organization Address [facility] Co de Phone Number [facility] [place] [address] * (ABNORMAL) POCT Glucose (04/15/2023 7:37 PM EST) Glucose, POC 249(H) 65 - 199 mg/dL [facility] Comment: Supplemental ranges: <140 mg/dL before meals <180 mg/dL all other times of the day Blood 04/15/2023 7:37 PM EST 04/15/2023 7:37 PM EST Willis Maldonado MD POINT OF CARE TEST O DANIEL Performing Organization Address [facility] de Phone Number [facility] [place] [address] * Heparin (unfractionated) Level (04/15/2023 5:35 PM EST) UF Heparin 0.36 IU/mL [facility] Comment: Heparin (anti-Xa) levels should be [...] MD HEMATOLOGY ORDERABL ES Performing Organization Address [facility] Co de Phone Number [facility] [place] [address] * POCT Glucose (04/15/2023 4:45 PM EST) Glucose, POC 186 65 - 199 mg/dL [facility] Comment: Supplemental ranges: <140 mg/dL before meals <180 mg/dL all other times of the day Blood 04/15/2023 4:45 PM EST 04/15/2023 4:45 PM EST Willis Maldonado MD POINT OF CARE TEST O RDERABLES Performing Organization Address [facility] Co de Phone Number [facility] [place] [address] * (ABNORMAL) POCT Glucose (04/15/2023 12:10 PM EST) Glucose, POC 205(H) 65 - 199 mg/dL [facility] Comment: Supplemental ranges: <140 mg/dL before meals <180 mg/dL all other times of the day Blood 04/15/2023 12:1 0 PM EST 04/15/2023 12:10 PM EST Willis Maldonado MD POINT OF CARE TEST O RDERABLES Performing Organization Address [facility] Co de Phone Number [facility] [place] [address] * Heparin (unfractionated) Level (04/15/2023 12:00 PM EST) [facility] UF Heparin 0.36 IU/mL [facility] Comment: Heparin (anti-Xa) levels should be [...] MD HEMATOLOGY ORDERABL ES Performing Organization Address City/[facility]/ZIP Co de Phone Number [facility] [place] [address] * POCT Glucose (04/15/2023 7:45 AM EST) [facility] Glucose, POC 163 65 - 199 mg/dL [facility] Comment: Supplemental ranges: <140 mg/dL before meals <180 mg/dL all other times of the day Blood 04/15/2023 7:45 AM EST 04/15/2023 7:45 AM EST Willis Maldonado MD POINT OF CARE TEST O RDERABLES Performing Organization Address City/[facility]/ZIP Co de Phone Number [facility] [place] [address] * Differential, Automated (04/15/2023 5:11 AM EST) [facility] Neutrophil % 42.7 % [facility] Neutrophil Absolute 1.85 1.70 - 6.10 x10(3)/mcL [facility] Lymph % 26.6 % [facility] Lymphocytes Abs 1.2 0.9 - 3.2 x10(3)/[facility] Monocyte % 21.0 % [facility] Monocyte Abs 0.9 0.3 - 0.9 x10(3)/[facility] Eos % 7.4 % [facility] Eosinophils Abs 0.3 0.0 - 0.4 x10(3)/[facility] Basophil % 2.1 % [facility] Baso Absolute 0.1 0.0 - 0.1 x10(3)/[facility] Immature Gran % 0.20 % [facility] Comment: Immature granulocytes(IG's)percentage and absolute count will include metamyelocytes, myelocytes, and promyelocytes. Blood smears from CBCs yielding IG's will be scanned manually for concordance. If this scan disagrees with the automated IG or if promyelocytes are noted, a manual differential will be performed. Immature Gran Absolute 0.01 0.00 - 0.04 x10(3)/[facility] Blood 04/15/2023 5:11 AM EST 04/15/2023 5:20 AM EST Narrative Resulting Agency Comment Spec In Lab Milli Maria MD HEMATOLOGY ORDERABLE S [facility] [place] [address] * (ABNORMAL) Hemogram (04/15/2023 5:11 AM EST) White Blood Cell 4.3 4.0 - 9.5 x10(3)/mc L [facility] Red Blood Cell 2.63(L) 4.58 - 5.54 x10(6)/mc L [facility] Hemoglobin 8.3(L) 13.7 - 16.5 g/dL [facility] Hematocrit 25.5(L) 40.5 - 48.5 % [facility] Mean Cell Volume 97.0(H) 82.9 - 93.1 fL [facility] Mean Cell Hemoglobin 31.6 27.5 - 32.1 pg [facility] Mean Cell Hemoglobin Concentration 32.5 32.0 - 35.7 g/dL [facility] Platelet 305 145 - 357 x10(3)/mc L [facility] RDW Standard Deviation 64.0(H) 36.0 - 45.0 fL [facility] RDW coefficient of variation 18.0(H) 11.4 - 13.8 % [facility] Mean Platelet Volume 9.9 7.6 - 12.[address] [facility] NRBC% auto 0.0 % [facility] NRBC Absolute 0.000 0.000 - 0.000 x10(3)/mc L [facility] Blood 04/15/2023 5:11 AM EST 04/15/2023 5:20 AM EST Narrative Resulting Agency Comment Spec In Lab Milli Maria MD HEMATOLOGY ORDERABLE S Performing Organization Address City/[facility] [place] [address] * Heparin (unfractionated) Level (04/15/2023 5:11 AM EST) UF Heparin 0.26 IU/mL [facility] Comment: Heparin (anti-Xa) levels should [...] MD HEMATOLOGY ORDERABL ES Performing Organization Address City/[facility] Co de Phone Number [facility] [place] [address] * (ABNORMAL) Phosphorus (04/15/2023 5:11 AM EST) Phosphorus 4.7(H) 2.5 - 4.5 mg/dL [facility] Blood 04/15/2023 5:11 AM EST 04/15/2023 5:20 AM EST Narrative Resulting Agency Comment Spec In Lab Tha Winters MD CHEMISTRY ORDERABLE S Performing Organization Address [facility] de Phone Number [facility] [place] [address] * Magnesium (04/15/2023 5:11 AM EST) Magnesium 0.88 0.69 - 1.07 mmol/L [facility] Blood 04/15/2023 5:11 AM EST 04/15/2023 5:20 AM EST Narrative Resulting Agency Comment Spec In Lab Tha Winters MD CHEMISTRY ORDERABLE S Performing Organization Address [facility] de Phone Number [facility] [place] [address] * (ABNORMAL) Basic Metabolic Panel (non-fasting) (04/15/2023 5:11 AM EST) Glucose 131 65 - 199 mg/dL [facility] Comment:Diabetes: >=200 mg/d L plus symptoms Blood Urea Nitrogen 38(H) 10 - 20 mg/dL [facility] Creatinine 1.76(H) 0.80 - 1.50 mg/dL [facility] Sodium 137 135 - 145 [...] questions. Chloride 104 98 - 107 mmol/L [facility] Carbon Dioxide 23 22 - 31 mmol/L [facility] Anion Gap 10 5 - [...] MD CHEMISTRY ORDERABLE S Performing Organization Address City/[facility]/ZIP Co de Phone Number [facility] [place] [address] * POCT Glucose (04/15/2023 3:18 AM EST) Glucose, POC 149 65 - 199 mg/dL [facility] Comment: Supplemental ranges: <140 mg/dL before meals <180 mg/dL all other times of the day Blood 04/15/2023 3:18 AM EST 04/15/2023 3:18 AM EST Willis Maldonado MD POINT OF CARE TEST O RDERABLES [facility] [place] [address] * POCT Glucose (04/15/2023 12:34 AM EST) Glucose, POC 179 65 - 199 mg/dL [facility] Comment: Supplemental ranges: <140 mg/dL before meals <180 mg/dL all other times of the day Blood 04/15/2023 12:3 4 AM EST 04/15/2023 12:34 AM EST Willis Maldonado MD POINT OF CARE TEST O RDPRAVIN Performing Organization Address [facility] de Phone Number [facility] [place] [address] * POCT Glucose (04/14/2023 7:13 PM EST) Glucose, POC 153 65 - 199 mg/dL [facility] Comment: Supplemental ranges: <140 mg/dL before meals <180 mg/dL all other times of the day Blood 04/14/2023 7:13 PM EST 04/14/2023 7:13 PM EST Willis Maldonado MD POINT OF CARE TEST O DANIEL Performing Organization Address [facility] de Phone Number [facility] [place] [address] * POCT Glucose (04/14/2023 4:42 PM EST) Glucose, POC 146 65 - 199 mg/dL [facility] Comment: Supplemental ranges: <140 mg/dL before meals <180 mg/dL all other times of the day Blood 04/14/2023 4:42 PM EST 04/14/2023 4:42 PM EST Willis Maldonado MD POINT OF CARE TEST O DANIEL Performing Organization Address [facility] de Phone Number [facility] [place] [address] * CARDIAC CATHETERIZATION (04/14/2023 4:00 PM EST) Anatomical Region Laterality Modality Other Narrative 04/14/2023 4:27 PM EST ?[facility] ? Cardiac Catheterization/Intervention Report ? Patient Name: Huber Mosher. ? Procedure Date: 04/14/2023 ? A #: [id number] ? Primary Physician: Citlalli Esposito I ? Case #: [id number] ? File Name: [id number] ? Catheterization Order Number: [id number] ? [facility] ? Final Report [place], [place] ? Patient Name: ? Huber C. Mellekas ?ID#: ?[id number] ? : ?1955 ? Procedure Date: ? April 14, 2023 ? Case #: ? [id number] ? Room: ? 5 ? Case Physician: ? Citlalli Esposito M.D. ? Start: ?15:22 ?Fellow: ? Real Perez M.D. ? Admission: ??04/13/2023 ? Referring Physician: ??ROMAN GREER ? Procedures: ?* Coronary Angiography ?* Left [...] designated as ASA Class III. The [facility] clinical ?frailty scale is 5: Mildly Frail. ? Indications for Diagnostic Cath: ?The priority of the diagnostic procedure was Urgent. The indication for ?the slab lifting engineer visit is ACS greater than 24 hrs. [...] distal LM and ostial LAD stenosis ?* TACTICAL DEBRIEFER OFFICER of the ostial LCx, this is a smaller vessel ?* Recommend heart team consult to consider PCI vs CABG. He may not be a ?good candidate for bypass given co-morbidities and targets. In this case ?would plan for staged PCI of LM-LAD with consideration of TACTICAL DEBRIEFER OFFICER PCI of LCx. ?He had CKD and [...] nurse. ??Case time = 00:34. ?Dr. Citlalli Espoisto M.D. performed the coronary angiography and left ?heart catheterization. ? Citlalli Esposito, M.D. ? Electronically Signed by: Citlalli Esposito, M.D. ? Report Finalized: 04/14/2023 ??16:23 ? Procedure Note Citlalli Esposito MD - 04/14/2023 [facility] Cardiac Catheterization/Intervention Report Patient Name: Huber Mosher Procedure Date: 04/14/2023 A #: [id number] Primary Physician: Citlalli Esposito I Case #: [id number] File Name: [id number] Catheterization Order Number: [id number] [facility] FinalReport [place], [place] Patient Name: Huber Mosher ID#:[id number] :1955 Procedure Date: April 14, 2023 Case [...] was designated as ASA Class III. [facility]: Mildly Frail. Indications for Diagnostic Cath: The priority of the diagnostic procedure was Urgent. The indicationfor the slab lifting engineer visit is ACS greater than 24 hrs. [...] units of heparin were administered. A total [id number] of Omnipaque were opened, 57cc of Omnipaque were administered jnf10ts of Omnipaque were wasted. Radiation: Fluoro time [...] distal LM and ostial LAD stenosis * TACTICAL DEBRIEFER OFFICER of the ostial LCx, this is a smaller vessel * Recommend heart team consult to consider PCI vs CABG. He may notbe a good candidate for bypass given co-morbidities and targets. In thiscase would plan for staged PCI of LM-LAD with consideration of TACTICAL DEBRIEFER OFFICER PCI ofLCx. He had CKD and Cr [...] EST Narrative 04/14/2023 1:50 PM EST [address] [place] [address] ? Echocardiogram Report Name: HUBER MOSHER ? Study Date: 04/14/2023 12:10 PMBP: 84/50 mmHg ? Patient Location: L3WB^363^A : 1955 ? Height: 179 cm ? Account: [id number] Age: 67 yrs ? Weight: 86 kg Gender: Male ?BSA: 2.1 m2 Ordering Physician: THA WINTERS Referring Physician: ROMAN BARAJAS Performed By: FELIX Cerna Reason For Study: NSTEMI Exam Location: [facility]. Interpretation Summary Left ventricle is mildly dilated [...] regional wall motion abnormality. Procedure Limited - 91633. Image enhancement Definity was used for left [...] Procedure Note Sameer Rudolph MD - 04/14/[address] [place] [id number] Echocardiogram Report Name: HUBER MOSHER Study Date: 2:10 PMBP: 84/50 mmHg Patient Location:[facility]^363^A : 1955 Height: 179 cm Account: [id number] Age: 67 yrs Weight: 86 kg Gender: Male BSA: 2.1 m2 Ordering Physician: THA WINTERS Referring Physician: ROMAN BARAJAS Performed By: FELIX Cerna Reason For Study: NSTEMI Exam Location: [facility]. Interpretation Summary Left ventricle is mildly dilated [...] of regional wall motionabnormality. Procedure Limited - 79997. Image enhancement Definity was used for leftventricular [...] POCT Glucose (04/14/2023 11:41 AM EST) Pathologist [facility] Glucose, POC 143 65 - 199 mg/dL [facility] Comment: Supplemental ranges: <140 mg/dL before meals <180 mg/dL all other times of the day Blood 04/14/2023 11:4 1 AM EST 04/14/2023 11:41 AM EST Willis Maldonado MD POINT OF CARE TEST O RDERABLES [facility] [place] [address] * Heparin (unfractionated) Level (04/14/2023 8:48 AM EST) UF Heparin 0.35 IU/mL [facility] Comment: Heparin (anti-Xa) levels [...] Spec In Lab Authorizing Provider Result Jose Winters MD HEMATOLOGY ORDERABL ES Performing Organization Address [facility] Co de Phone Number [facility] [place] [address] * POCT Glucose (04/14/2023 8:07 AM EST) Glucose, POC 181 65 - 199 mg/dL [facility] Comment: Supplemental ranges: <140 mg/dL before meals <180 mg/dL all other times of the day Blood 04/14/2023 8:07 AM EST 04/14/2023 8:07 AM EST Tha Winters MD POINT OF CARE TEST ORDERABLES Performing Organization Address [facility] Phone Number [facility] [place] [address] * POCT Glucose (04/14/2023 3:56 AM EST) Glucose, POC 148 65 - 199 mg/dL [facility] Comment: Supplemental ranges: <140 mg/dL before meals <180 mg/dL all other times of the day Blood 04/14/2023 3:56 AM EST 04/14/2023 3:56 AM EST Narrative Authorizing Provider Result Jose Winters MD POINT OF CARE TEST ORDERABLES Performing Organization Address [facility] de Phone Number [facility] [place] [address] * Differential, Automated (04/14/2023 12:40 AM EST) Neutrophil % 48.3 % [facility] Neutrophil Absolute 2.42 1.70 - 6.10 x10(3)/[facility] LABORATORY Lymph % 26.5 % [facility] [place] [facility] Lymphocytes Abs 1.3 0.9 - 3.2 x10(3)/[facility] LABORATORY Monocyte % 16.8 % [facility] Monocyte Abs 0.8 0.3 - 0.9 x10(3)/[facility] Eos % 6.0 % [facility] Eosinophils Abs 0.3 0.0 - 0.4 x10(3)/[facility] Basophil % 2.2 % [facility] Baso Absolute 0.1 0.0 - 0.1 x10(3)/[facility] LABORATORY Immature Gran % 0.20 % [facility] Comment: Immature granulocytes(IG's)percentage and absolute count will include metamyelocytes, myelocytes, and promyelocytes. Blood smears from CBCs yielding IG's will be scanned manually for concordance. If this scan disagrees with the automated IG or if promyelocytes are noted, a manual differential will be performed. Immature Gran Absolute 0.01 0.00 - 0.04 x10(3)/[facility] LAB[facility]ATORY Blood 04/14/2023 12:4 0 AM EST 04/14/2023 12:53 AM EST Narrative Resulting Agency Comment Spec In Lab Milli Maria MD HEMATOLOGY ORDERABLE S Performing Organization Address City/State/[facility] Co de Phone Number [facility] [place] [address] * (ABNORMAL) Hemogram (04/14/2023 12:40 AM EST) [...] Cell Hemoglobin 32.1 27.5 - 32.1 pg [facility] Mean Cell Hemoglobin Concentration 34.0 32.0 - 35.7 g/dL [facility] Platelet 314 145 - 357 x10(3)/mc L [facility] RDW Standard Deviation 60.5(H) 36.0 - 45.0 fL [facility] RDW coefficient of variation 17.8(H) 11.4 - 13.8 % [facility] Mean Platelet Volume 9.7 7.6 - 12.[address] [facility] NRBC% auto 0.0 % [facility] NRBC Absolute 0.000 0.000 - 0.000 x10(3)/mc L [facility] Blood 04/14/2023 12:4 0 AM EST 04/14/2023 12:53 AM EST Narrative Resulting Agency Comment Spec In Lab Milli Maria MD HEMATOLOGY ORDERABLE S Performing Organization Address City/[facility] [place] [address] * Heparin (unfractionated) Level (04/14/2023 12:40 AM EST) UF Heparin 0.32 IU/mL [facility] Comment: Heparin (anti-Xa) levels should be [...] MD HEMATOLOGY ORDERABL ES Performing Organization Address City/[facility] Co de Phone Number [facility] [place] [address] * Phosphorus (04/14/2023 12:40 AM EST) Phosphorus 3.8 2.5 - 4.5 mg/dL [facility] Blood 04/14/2023 12:4 0 AM EST 04/14/2023 12:53 AM EST Narrative Resulting Agency Comment Spec In Lab Tha Winters MD CHEMISTRY ORDERABLE S Performing Organization Address [facility] Co de Phone Number [facility] [place] [address] * Magnesium (04/14/2023 12:40 AM EST) Magnesium 0.89 0.69 - 1.07 mmol/L [facility] Blood 04/14/2023 12:4 0 AM EST 04/14/2023 12:53 AM EST Narrative Resulting Agency Comment Spec In Lab Tha Winters MD CHEMISTRY ORDERABLE S Performing Organization Address [facility] de Phone Number [facility] [place] [address] * (ABNORMAL) Basic Metabolic Panel (non-fasting) (04/14/2023 12:40 AM EST) Glucose 167 65 - 199 mg/dL [facility] Comment:Diabetes: >=200 mg/d L plus symptoms Blood Urea Nitrogen 41(H) 10 - 20 mg/dL [facility] Creatinine 1.71(H) 0.80 - 1.50 mg/dL [facility] Sodium 134(L) 135 - 145 mmol/L [facility] Potassium 4.3 3.5 - 5.0 mmol/L [facility] Comment: Please note: ??Patients with WBC >100,000 may have falsely elevated Potassium levels. ??For accurate Potassium quantification in these patients send serum separator tube (gold top) for subsequent determinations. ??Contact the Clinical Chemistry Laboratory if there are any questions. Chloride 103 98 - 107 mmol/L [facility] Carbon Dioxide 21(L) 22 - 31 mmol/L [facility] Anion Gap 10 5 - 15 mmol/L [facility] Calcium 8.6 8.5 - 10.5 mg/dL [facility] Est Glomerular Filtration Rate 43(L) >=60 mL/min/1. 73 m?? [facility] Comment: This patient's estimated GFR [...] CHEMISTRY ORDERABLE S [facility] [place] [address] * Lipid Panel (Reflex Direct LDL) (04/14/2023 12:40 AM EST) [facility] Cholesterol, Total 101 mg/dL [facility] Comment: Lower Risk: <200 mg/dL Average Risk: 200-239 mg/dL Higher Risk: >he=633 mg/dL Triglyceride 144 mg/dL [facility] Comment: Average Risk/Lower Risk: <150 mg/dL Borderline High Risk: 150-199 mg/dL High Risk: 200-499 mg/dL Very High Risk: >as=760 mg/dL HDL Cholesterol 34 mg/dL [facility] Comment: Males: ?? Higher Risk: <40 mg/dL Females: ?? Higher Risk: <50 mg/dL LDL Cholesterol 38 mg/dL [facility] Comment: Lowest Risk: <100 mg/dL Lower Risk: 100-129 mg/dL Borderline High Risk: 130-159 mg/dL High Risk: 160-189 mg/dL Very High Risk: >in=195 mg/dL Cholesterol/HDL Ratio 3.0 ratio [facility] Lipid Interpretation See Note [facility] Comment: Lipid management should be guided by a patient? s ASCVD risk, goals and preferences. ACC/AHA Guidelines recommend high intensity statin if clinical ASCVD or LDL greater than or equal to 190 mg/dL. http://[email or web address] Adults aged 40-75 with LDL 70-189 mg/dL should have their 10 year ASCVD risk estimated with the ACC/AHA ASCVD risk automobile repair service estimator http://tools.acc.org/QPSEA-Gshz-Ryfunoxvv/ Statin should be discussed if risk greater [...] MD CHEMISTRY ORDERABLE S Performing Organization Address City/State/[facility] Co de Phone Number [facility] [place] [address] * (ABNORMAL) Troponin (04/14/2023 12:40 AM EST) [...] troponin value can be found in the [facility] Test Catalog Troponin - [facility] Test Catalog Reference: Fourth Bixby Definition of Myocardial Infarction. Journal of the [place] [employer] 2018;72:9519-3575 Blood 04/14/2023 12:4 0 AM EST 04/14/2023 12:53 AM EST Narrative Resulting Agency Comment Spec In Lab Tha Winters MD CHEMISTRY ORDERABLE S Performing Organization Address City/[facility]/ZIP Co de Phone Number [facility] [place] [address] * POCT Glucose (04/14/2023 12:27 AM EST) Glucose, POC 184 65 - 199 mg/dL [facility] Comment: Supplemental ranges: <140 mg/dL before meals <180 mg/dL all other times of the day Blood 04/14/2023 12:2 7 AM EST 04/14/2023 12:27 AM EST Tha Winters MD POINT OF CARE TEST ORDERABLES Performing Organization Address [facility] Co de Phone Number [facility] [place] [address] * EKG 12 Lead (04/13/2023 10:01 PM EST) Ventricular rate 80 BPM MUSE SYSTEM Atrial Rate 80 BPM MUSE SYSTEM P-R Interval 126 ms MUSE SYSTEM QRS Duration 96 ms MUSE SYSTEM Q-T Interval 368 ms MUSE SYSTEM QTC Calculated (Bezet) 424 ms MUSE SYSTEM Calculated P [place] 43 degrees MUSE SYSTEM Calculated R [place] 50 degrees MUSE SYSTEM Calculated T [place] -143 degrees MUSE SYSTEM INTERPRETATION Normal sinus rhythm Nonspecific ST and T wave abnormality Inferolateral leads Abnormal ECG When compared with ECG of 10-NOV-2022 08:43, No significant change was found Confirmed by fellow Shana Wright ([id number]) on 04/14/2023 2:49:42 PM Confirmed by MD RENU, WILLIS ([id number]) on 04/16/2023 4:34:51 PM MUSE SYSTEM 04/13/2023 10:0 1 PM EST 04/16/2023 4:34 PM EST Tha Winters MD ECG ORDERABLES MUSE SYSTEM * Differential, Automated (04/13/2023 9:07 PM EST) Neutrophil % 56.7 % [facility] Neutrophil Absolute 3.13 1.70 - 6.10 x10(3)/[facility] LABORATORY Lymph % 23.2 % [facility] Lymphocytes Abs 1.3 0.9 - 3.2 x10(3)/[facility] LABORATORY Monocyte % 13.6 % [facility] Monocyte Abs 0.8 0.3 - 0.9 x10(3)/[facility] LABORATORY Eos % 4.3 % [facility] Eosinophils Abs 0.2 0.0 - 0.4 x10(3)/[facility] LABORATORY Basophil % 1.8 % [facility] Baso Absolute 0.1 0.0 - 0.1 x10(3)/[facility] LABORATORY Immature Gran % 0.40 % [facility] Comment: Immature granulocytes(IG's)percentage and absolute count will include metamyelocytes, myelocytes, and promyelocytes. Blood smears from CBCs yielding IG's will be scanned manually for concordance. If this scan disagrees with the automated IG or if promyelocytes are noted, a manual differential will be performed. Immature Gran Absolute 0.02 0.00 - 0.04 x10(3)/[facility] LABORATORY Blood 04/13/2023 9:07 PM EST 04/13/2023 9:55 PM EST Narrative Resulting Agency Comment Spec In Lab Milli Maria MD HEMATOLOGY ORDERABLE S [facility] [place] [address] * (ABNORMAL) Hemogram (04/13/2023 9:07 PM EST) White Blood Cell 5.5 4.0 - 9.5 x10(3)/mc L [facility] Red Blood Cell 2.85(L) 4.58 - 5.54 x10(6)/mc L [facility] Hemoglobin 9.0(L) 13.7 - 16.5 g/dL [facility] Hematocrit 27.4(L) 40.5 - 48.5 % [facility] Mean Cell Volume 96.1(H) 82.9 - 93.[address] [facility] Mean Cell Hemoglobin 31.6 27.5 [...] Platelet Volume 9.6 7.6 - 12.[address] [facility] NRBC% auto 0.0 % [facility] NRBC Absolute 0.000 0.000 - 0.000 x10(3)/mc L [facility] Blood 04/13/2023 9:07 PM EST 04/13/2023 9:55 PM EST Narrative Resulting Agency Comment Spec In Lab Milli Maria MD HEMATOLOGY ORDERABLE S Performing Organization Address City/[facility]/ZIP Co de Phone Number [facility] [place] [address] * Phosphorus (04/13/2023 9:07 PM EST) Phosphorus 3.7 2.5 - 4.5 mg/dL [facility] Blood 04/13/2023 9:07 PM EST 04/13/2023 9:24 PM EST Narrative Resulting Agency Comment Spec In Lab Tha Winters MD CHEMISTRY ORDERABLE S [facility] [place] [address] * Calcium (04/13/2023 9:07 PM EST) Calcium 8.6 8.5 - 10.5 mg/dL [facility] Blood 04/13/2023 9:07 PM EST 04/13/2023 9:24 PM EST Narrative Resulting Agency Comment Spec In Lab Tha Winters MD CHEMISTRY ORDERABLE S Performing Organization Address [facility] Co de Phone Number [facility] [place] [address] * Magnesium (04/13/2023 9:07 PM EST) Magnesium 0.86 0.69 - 1.07 mmol/L [facility] Blood 04/13/2023 9:07 PM EST 04/13/2023 9:24 PM EST Narrative Resulting Agency Comment Spec In Lab Tha Winters MD CHEMISTRY ORDERABLE S Performing Organization Address [facility] de Phone Number [facility] [place] [address] * (ABNORMAL) Basic Metabolic Panel (non-fasting) (04/13/2023 9:07 PM EST) Glucose 210(H) 65 - 199 mg/dL [facility] Comment:Diabetes: >=200 mg/d L plus symptoms Blood Urea Nitrogen 42(H) 10 - 20 mg/dL [facility] Creatinine 1.78(H) 0.80 - 1.50 mg/dL [facility] Sodium 135 135 - 145 mmol/L [facility] Potassium 4.4 3.5 - 5.0 mmol/L [facility] Comment: Please note: ??Patients with WBC >100,000 may have falsely elevated Potassium levels. ??For accurate Potassium quantification in these patients send serum separator tube (gold top) for subsequent determinations. ??Contact the Clinical Chemistry Laboratory if there are any questions. Chloride 102 98 - 107 mmol/L [facility] Carbon Dioxide 21(L) 22 - 31 mmol/L [facility] Anion Gap 12 5 - 15 mmol/L [facility] Calcium 8.6 8.5 - 10.5 mg/dL [facility] Est Glomerular Filtration Rate 41(L) >=60 mL/min/1. 73 m?? [facility] Comment: This patient's estimated GFR [...] MD CHEMISTRY ORDERABLE S Performing Organization Address [facility] Co de Phone Number [facility] [place] [address] * (ABNORMAL) Hemoglobin A1c (04/13/2023 9:07 PM [...] Mellitus, Diabetes Care 2013; 36: Suppl. 1, S67-74 Estimated Average Glucose 182 mg/dL [facility] Blood 04/13/2023 9:07 PM EST 04/13/2023 9:25 PM EST Narrative Resulting Agency Comment Spec In Lab Tha Winters MD CHEMISTRY ORDERABLE S Performing Organization Address [facility] Co de Phone Number [facility] [place] [address] * (ABNORMAL) Hepatic Function Panel (04/13/2023 9:07 PM EST) Protein, Total 5.8(L) 6.1 - 8.0 g/dL [...] CHEMISTRY ORDERABLE S [facility] [place] [address] * (ABNORMAL) Troponin (04/13/2023 9:07 PM EST) Troponin-T, High Sensitivity 540(H) <=22 ng/L [facility] [...] troponin value can be found in the [facility] Test Catalog Troponin - [facility] Test Catalog Reference: Fourth Bixby Definition of Myocardial Infarction. Journal of the [place] [employer] 2018;72:4387-9299 Blood 04/13/2023 9:07 PM EST 04/13/2023 9:24 PM EST Narrative Resulting Agency Comment Spec In Lab Tha Winters MD CHEMISTRY ORDERABLE S Performing Organization Address City/[facility]/ZIP Co de Phone Number [facility] [place] [address] * (ABNORMAL) pro-Brain Natriuretic Peptide (04/13/2023 9:07 PM EST) NT-proBNP 6,510(H) <=124 pg/mL [facility] Blood 04/13/2023 9:07 PM EST 04/13/2023 9:24 PM EST Narrative Resulting Agency Comment Spec In Lab Tha Winters MD CHEMISTRY ORDERABLE S Performing Organization Address [facility] Co de Phone Number [facility] [place] [address] * TSH (04/13/2023 9:07 PM EST) Thyroid Stimulating Hormone 2.97 0.27 - 4.20 mcIU/mL [facility] Comment: Reference Interval (mcIU/mL): Females: ??First Trimester: 0.23-3.88 ??Second Trimester: 0.22-3.90 ??Third Trimester: 0.44-4.66 Blood 04/13/2023 9:07 PM EST 04/13/2023 9:24 PM EST Narrative Resulting Agency Comment Spec In Lab Tha Winters MD CHEMISTRY ORDERABLE S Performing Organization Address City/[facility] Co de Phone Number [facility] [place] [address] * POCT Glucose (04/13/2023 7:14 PM EST) Glucose, POC 146 65 - 199 mg/dL [facility] Comment: Supplemental ranges: <140 mg/dL before meals <180 mg/dL all other times of the day Blood 04/13/2023 7:14 PM EST 04/13/2023 7:14 PM EST Tha Winters MD POINT OF CARE TEST ORDERABLES [facility] [place] [address] documented in this encounter Visit Diagnoses Not on filedocumented in this encounter Admitting Diagnoses Diagnosis NSTEMI [...] AM EST 1,000 Units clopidogreL (Plavix) tablet 75 mg 75 mg, Oral, DAILY, First dose on Mon04/18/23 at 0900, Until Discontinued, Routine Given 04/19/2023 8:42 AM EST 75 mg dextrose 10% infusion 250 mL, at [...] insulin orders before administering the next dose. fentaNYL (pf) (50 mcg/mL) multi-dose injection PRN, Starting on Mon04/14/23 at 1519, Until Mon04/14/23 at 1604, Intra-Operative (Intra-Procedure), Routine Given 04/14/2023 3:41 PM EST 12.5 mcg Given 04/14/2023 3:19 PM EST 25 mcg glucagon (Glucagen) (1 mg/mL) injection solution 1 mg 1 mg, Intramuscular, EVERY 15 MIN PRN, Starting on Mon04/13/23 at 2009, Until Mon04/19/23 at 1615, Low [...] Port, Routine heparin (porcine) (1,000 units/mL) injection PRN, Starting on Mon04/14/23 at 1536, Until Mon04/14/23 at 1604, Intra-Operative (Intra-Procedure), Routine Given 04/14/2023 3:36 PM EST 4,000 Units HYDROmorphone (Dilaudid) tablet 1 mg 1 mg, [...] Given 04/18/2023 7:30 AM EST 1 Units iohexoL (Omnipaque) (350 mg/mL) solution PRN, Starting on Mon04/14/23 at 1555, Until Mon04/14/23 at 1604, Intra-Operative (Intra-Procedure), Routine Given 04/14/2023 3:55 PM EST 57 mLs levothyroxine (Synthroid) tablet 150 mcg 150 mcg, [...] EST 1 patch 16- Thigh Anterior (Right) midazolam (pf) (Versed) (1 mg/mL) multi-dose injection PRN, Starting on Mon04/14/23 at 1519, Until Mon04/14/23 at 1604, Intra-Operative (Intra-Procedure), Routine Given 04/14/2023 3:41 PM EST 0.5 mg Given 04/14/2023 3:19 PM EST 1 mg nitroGLYcerin 100 mcg/mL intracoronary dilution PRN, Starting on Mon04/14/23 at 1532, Until Mon04/14/23 at 1604, Intra-Operative (Intra-Procedure), Routine Given 04/14/2023 3:32 PM EST 150 mcg polyethylene glycoL (Miralax) packet 17 g 17 [...] Given 04/18/2023 8:00 AM EST 5 mLs tamsulosin (Flomax) capsule 0.4 mg 0.4 mg, Oral, DAILY, First dose on Mon04/13/23 at 2000, Until Discontinued, DO NOT CRUSH [...] Reason: See comment - Comment: Given in final dressing cutter, see eMAR)1417 (MAR Unhold - Provider: Admin Adt) 0842 (Given - Provider: Ashleigh Babcock RN) atorvastatin (Lipitor) tablet 40 mg 40 mg, Oral, DAILY, First dose on Emely 04/13/23 at 2000, Until Discontinued, Routine 0806 (Given - Provider: Alisa Garcia RN) 0833 (MAY Hold - Provider: Admin Adt - Reason: Transfer to a Procedural area)0900 (Not Given - Provider: Lesvia Torres RN - Reason: See comment - Comment: Given Post cath, see MAY)1417 (MAY Unhold - Provider: Admin Adt)1633 (Given - Provider: Lesvia Torres RN) 0842 (Given - Provider: Ashleigh Babcock RN) cholecalciferol (Vitamin D3) tablet 1,000 Units 1,000 [...] Reason: See comment - Comment: Given in slab lifting engineer, see MAY)1417 (MAY Unhold - Provider: Admin Adt) 0842 (Given - Provider: Ashleigh Babcock RN) insulin glargine-ygfn (Semglee) (100 unit/mL) subcutaneous injection vial 5 Units 5 Units, Subcutaneous, DAILY, First dose on Mon04/14/23 at 0900, Until Discontinued, Routine 0809 (Given - Provider: Alisa Garcia, SHIVAM) 0833 (MAR Hold - Provider: Admin Adt - Reason: Transfer to a Procedural area)0900 (Not Given - Provider: Lesvia Torres RN - Reason: See comment - Comment: not given per pt since he was post cath)1417 (MAR Unhold - Provider: Admin Adt) 0843 (Given - Provider: Ashleigh Babcock RN) insulin lispro (HumaLOG;Admelog) (100 unit/mL) subcutaneous injection vial 1-4 Units(Linked Group 1) 1-4 Units, Subcutaneous, EVERY 4 HOURS SCHEDULED, First dose on Emely 04/13/23 at 2100, Until Discontinued, CORRECTION BOLUS [1-4 [...] parameters not met)0809 (Given - Provider: Alisa Garcia, SHIVAM)1200 (Not Given - Provider: Alisa Garcia RN [...] Lesvia Torres RN - Comment: bg 165)0833 (MAY Hold - Provider: Admin Adt - Reason: Transfer to a Procedural area)1200 (Not Given - Provider: Lesvia Torres RN - Reason: See comment - Comment: In slab lifting engineer)1417 (MAY Unhold - Provider: Admin Adt)1600 (Not Given [...] see MAR)1417 (MAY Unhold - Provider: Admin Adt)1634 (Given - Provider: Lesvia Torres RN) 0845 [...] refused)1417 (MAY Unhold - Provider: Admin Adt) 0900 (Not Given - Provider: Ashleigh Babcock, SHIVAM - Reason: Patient/family refused) sodium chloride 0.9 % (flush) (BD PosiFlush Normal Saline 0.9) flush 5 mL 5 mL, Intravenous, 2 TIMES DAILY, First dose on Emely 04/13/23 at 2100, Until Discontinued, Routine 0809 (Given - Provider: Alisa Garcia RN)1933 (Given - Provider: Aide Jenkins RN) 0800 (Given - Provider: Lesvia Torres, SHIVAM)0833 (MAY Hold - Provider: Admin Adt - Reason: Transfer to a Procedural area)1417 (MAY Unhold - Provider: Admin Adt)2032 (Given - Provider: Aide Jenkins RN) 0900 (Given - Provider: Ashleigh Babcock, SHIVAM) tamsulosin (Flomax) capsule 0.4 mg 0.4 mg, Oral, DAILY, First dose on Emely 04/13/23 at 2000, Until Discontinued, DO NOT CRUSH OR CHEW, Routine 0806 (Given - Provider: Alisa Garcia RN) 0833 (MAY Hold - Provider: Admin Adt - Reason: Transfer to a Procedural area)0900 (Not Given - Provider: Lesvia Torres RN - Reason: See comment - Comment: Given post cath, see MAY)1417 (MAY Unhold - Provider: Admin Adt)1634 (Given - Provider: Lesvia Torres, SHIVAM) 0842 (Given - Provider: Ashleigh Babcock, SHIVAM) Continuous Medication Order 04/17/2023 04/18/2023 04/19/2023 heparin (porcine) 50 units/mL in dextrose 5% 500 mL infusion (CANCELED)(Linked Group 2) 0-5,000 Units/hr (0-100 mL/hr), Intravenous, CONTINUOUS, Starting on Emely 04/13/23 at 2000, Until Mon04/18/23 at 1435, Begin [...] - Reason: Transfer to a Procedural area)1417 ([facility] Unhold - Provider: Admin Adt) sodium chloride 0.9% infusion () 100 mL/hr, Intravenous, CONTINUOUS, Starting on Mon04/18/23 at 1245, Until Mon04/18/23 at 2044, Recovery (Recovery-Hospital Unit) 1234 (New Bag - Provider: Katie Carvalho RN)2100 (Stopped - Provider: Aide Jenkins RN) PRN [...] Until Mon04/18/23 at 1417, Intra-Operative (Intra-Procedure), Routine 08 (Given - Provider: Wilmer Johnson RN) clopidogreL (Plavix) tablet (CANCELED) PRN, Starting on Mon04/18/23 at 0836, Until Mon04/18/23 at 1417, Intra-Operative (Intra-Procedure), Routine 08 (Given - Provider: Wilmer Johnson RN) dextrose 10% infusion(Linked Group 3) 250 mL, at 1,000 mL/hr, Intravenous, EVERY 15 MIN PRN, Starting on Emely 04/13/23 at 2010, Until Mon04/19/23 at 1615, For [...] orders before administering the next dose. 0833 (MAY Hold - Provider: Admin Adt - Reason: Transfer to a Procedural area)1417 (MAY Unhold - Provider: Admin Adt) fentaNYL (pf) (50 mcg/mL) multi-dose injection (CANCELED) PRN, Starting on Mon04/18/23 at 0905, Until Mon04/18/23 at 1417, Intra-Operative (Intra-Procedure), Routine 09 (Given - Provider: Wilmer Johnson RN)102 (Given - Provider: Wilmer Johnson RN)1135 (Given - Provider: Wilmer Johnson RN) glucagon (Glucagen) (1 mg/mL) injection solution 1 mg(Linked Group 3) 1 mg, Intramuscular, EVERY 15 MIN PRN, Starting on Mon04/13/23 at 2009, Until Mon04/19/23 at 1615, Low [...] before administering the next dose. , Routine 08 (MAY Hold - Provider: Admin Adt - Reason: Transfer to a Procedural area)141 (MAY Unhold - Provider: Admin Adt) glucose (Glutose) 40% oral geL(Linked Group 3) 15-30 g of glucose, Buccal, EVERY 15 MIN PRN, Starting on Mon04/13/23 at 2010, Until Mon04/19/23 at 1615, Low [...] area)1417 (MAY Unhold - Provider: Admin Adt) heparin [...] Provider: Wilmer Johnson RN)1013 (Given - Provider: Wilmer C Johnson, RN)1103 (Given - Provider: Wilmer Johnson RN) HYDROmorphone (Dilaudid) tablet 1 mg 1 mg, Oral, EVERY 6 HOURS PRN, Starting on Mon04/14/23 at 0317, Until Mon04/19/23 at 1615, Pain, Routine 0833 ([facility] Hold - Provider: Admin Adt - Reason: Transfer to a Procedural area)1417 ([facility] Unhold - Provider: Admin Adt) iohexoL (Omnipaque) (350 mg/mL) solution (CANCELED) PRN, Starting on Mon04/18/23 at 1135, Until Mon04/18/23 at 1417, Intra-Operative (Intra-Procedure), Routine 1135 (Given - Provider: Citlalli Charles MD) lidocaine (Xylocaine) 1% (10 mg/mL) injection 3 mg 3 mg (0.3 mL), Subcutaneous, ONCE PRN, 1 dose, Starting on Mon04/13/23 at 2009, Until Mon04/19/23 at 1615, for discomfort with PIV insertion, Routine 0833 ([facility] Hold - Provider: Admin Adt - Reason: Transfer to a Procedural area)141 ([facility] Unhold - Provider: Admin Adt) midazolam (pf) (Versed) (1 mg/mL) multi-dose injection (CANCELED) PRN, Starting on Mon04/18/23 at 0905, Until Mon04/18/23 at 1417, Intra-Operative (Intra-Procedure), Routine 0905 (Given - Provider: Wilmer Johnson RN)1025 (Given - Provider: Wilmer Johnson RN) nitroGLYcerin [...] the last 24 to 72 hours., Routine 0833 ([facility] Hold - Provider: Admin Adt - Reason: Transfer to a Procedural area)1417 ([facility] Unhold - Provider: Admin Adt) polyethylene glycoL (Miralax) packet 17 g 17 g, Oral, DAILY PRN, Starting on Mon04/17/23 at 1007, Until Mon04/19/23 at 1615, Constipation, For no bowel movements in 2 days, Routine 0833 ([facility] Hold - Provider: Admin Adt - Reason: Transfer to a Procedural area)1417 ([facility] Unhold - Provider: Admin Adt) senna-docusate (Pericolace) 8.6-50 mg per tablet 2 tablet 2 tablet, Oral, 2 TIMES DAILY PRN, Starting on Mon04/17/23 at 1007, Until Mon04/19/23 at 1615, Constipation, Routine 0833 ([facility] Hold - Provider: Admin Adt - Reason: Transfer to a Procedural area)141 ([facility] Unhold - Provider: Admin Adt) sodium chloride 0.9 % (flush) (BD PosiFlush Normal Saline 0.9) flush 10 mL 10 mL, Intravenous, DAILY PRN, Starting on Mon04/13/23 at 2035, Until Mon04/19/23 at 1615, For use when accessing Implantable Port, Routine 0833 ([facility] Hold - Provider: Admin Adt - Reason: Transfer to a Procedural area)1417 ([facility] Unhold - Provider: Admin Adt) sodium chloride 0.9 % (flush) (BD PosiFlush Normal Saline 0.9) flush 5-20 mL 5-20 mL, Intravenous, EVERY 1 MIN PRN, Starting on Mon04/13/23 at 2010, Until Mon04/19/23 at 1615, flush, Flush pertains to all indwelling lines. Flush per protocol found in the job aid using the link provided on this medication record., Routine 0833 ([facility] Hold - Provider: Admin Adt - Reason: Transfer to a Procedural area)1417 ([facility] Unhold - Provider: Admin Adt) sodium chloride [...] Intravenous, BOLUS PER HEPARIN PROTOCOL, Starting on Mon04/13/23 at 1907, Until Mon04/18/23 at 1435, Per [...] Starting on Emely 04/13/23 at 2010, Until 04/19/23 at 1615, For BG 50-70 mg/dL: Oral [...] Starting on Emely 04/13/23 at 2010, Until 04/19/23 at 1615, Low blood sugar, For BG [...] Routine documented in this encounter Care Teams Connie Scratcher Relationship Specialty Start Date End Date Nicolasa Valenzuela PA [address] [place] [address] PCP - General Family Medicine 12/20/21 documented as of this encounter
--- OUTSIDE RECORDS SUMMARY | 2023-10-16 03:13 | XMS_ITS | Encounter Summary ---
Author Organization [facility] Address [facility] [place] [address] Care Team Providers Care Review Trainer Name Role Phone Nicolasa Valenzuela Primary Care Pro vider Encounter Details Date Type Department Care Team (Late st Contact Info) Description 04/13/2023 External Results DH Patient Placement [facility] [place] [phone] Social History Tobacco Use Types Packs/Day Years Used Date Smoking Tobacco: Never Smokeless Tobacco: Never Alcohol Use Standard Drinks/Week Comments Not Currently 0 (1 standard drink = 0.6 oz pur e alcohol) [facility] Utilities Answer Date Recorded In [...] PM EDT Office Visit Hematology/Oncology at [address] [phone] Fiordaliza Downing APRN [facility] [place] [address] 11/10/2023 9:00 AM EDT Appointment [place] [phone] Thomas Curtis MD [facility] [place] [address] 11/21/2023 11:00 AM EDT Infusion Hematology Oncology at [address] [phone] 12/05/2023 1:30 PM EDT Office Visit Hematology/Oncology at [address] [phone] Thomas Curtis MD [facility] [place] [address] Fiordaliza Downing APRN [facility] [place] [address] 12/26/2023 9:00 AM EDT Appointment [place] [phone] Thomas Curtis MD [facility] [place] [address] 02/09/2024 8:00 AM EST Appointment [place] [phone] Thomas Curtis MD [facility] [place] [address] 03/18/2024 3:00 PM EST Office Visit Cardiology at [address] [phone] Sameer Rudolph MD [facility] [place] [address] 03/22/2024 9:00 AM EST Appointment [place] [phone] Thomas Curtis MD [facility] [place] [address] 08/23/2024 Hospital Encounter [place] [phone] True Juarez MD [facility] [place] [place] [address] Scheduled Procedures Name Priority Associated Diagnoses Date/Ti [...] Patient Facing Action Plan Christy Bravo [facility] Note: The patient? s goal is to continue positive results of oral chemotherapy by maintaining improved labs (PSA) or stable scans in clinic for the upcoming year. documented as of this encounter Procedures Procedure Name Priority Date/Time Associated Diagnosis Comments ECG SCAN Routine 04/13/2023 12:51 AM EST documented in this encounter Results * Scan Doc: ECG (04/13/2023 12:51 AM EST) Historical Provider MD CORRIGAN MGR SCAN EX T ORDR/RSLT documented in this encounter Visit Diagnoses Not on filedocumented in this encounter Care Teams Review Trainer Relationship Specialty Start Date End Date Nicolasa Valenzuela PA [address] [place] [address] PCP - General Family Medicine 12/20/21 documented as of this encounter
--- OUTSIDE RECORDS SUMMARY | 2023-10-16 03:13 | XMS_ITS | Encounter Summary ---
Author Organization [facility] [place] [address] Care Team Providers Care Bleacher Operator Name Role Phone Nicolasa Valenzuela Primary Care Pro vider Reason for Visit * Auth/Cert (Routine) Specialty Diagnoses / Procedures Referred By Toño mayorga Referred To Contact Diagnoses NSTEMI (non-ST elevated myocardial infarction) Diffuse ischemia Tha Winters MD [facility] [place] [address] [facility] Referral ID Status Reason Start Date Expiration Date Visits Re quested Visits Authorized [id number] 1 1 Encounter Details Date Type Department Care Team (Late st Contact Info) Description 04/18/2023 8:15 AM EST - 04/18/2023 9:15 AM EST [place] [address] Citlalli Esposito MD [facility] [address] CARDIAC CATHETERIZATION Social History Tobacco Use Types Packs/Day Years Used Date Smoking Tobacco: Never Smokeless Tobacco: Never Alcohol Use Standard Drinks/Week Comments Not Currently 0 (1 standard drink = 0.6 oz pur e alcohol) [facility] Utilities Answer Date Recorded In the past 12 months has [employer], gas, oil, or water [employer] threatened to shut off services in your [...] Sign Reading Time Taken Comments Blood Pressure 114/68 04/18/2023 8:45 AM EST Pulse 71 04/18/2023 8:45 AM EST Temperature 36.5 ??C (97.7 ??F) 04/18/2023 7:27 AM ES T Respiratory Rate 12 04/18/2023 8:45 AM EST Oxygen Saturation 100% 04/18/2023 8:45 AM EST Inhaled Oxygen Concentration - - Weight 83 kg (183 lb) 04/18/2023 4:15 AM EST Height 179.1 cm (5' 10.5) 04/13/2023 5:56 PM ES T Body Mass Index 26.11 04/13/2023 5:56 PM EST documented in this encounter Discharge Summaries * Willis Maldonado MD - 04/19/2023 2:15 PM EST Discharge Summary Patient Name: Huber Mosher Patient Age: 67 y.o. Language: [place] Race: White Ethnicity: Not nor Admit date: [...] stents who presents as a transfer from [place] for NSTEMI Follow-up Recommendations for Providers: Primary [...] carcinoma, consistent with prostatic origin (see discussion) [place] light chain deposition disease Gout Cardiomyopathy 09/2022: [...] dizziness, nausea, or syncope. He presented to [place] where initial EKG showed borderline LITO in [...] started on a heparin drip. Transferred to [facility] for further care. On arrival, patient is [...] 27%). A recent echo on 03/29 at [place] showed an EF 46% with regional WMA. [...] multivessel coronary artery disease in LAD, LCX (CLINICAL STAFF RN), and RCA. CT surgery was consultedto evaluate if Mr. Mosher is a candidate for CABG vs PCI. After evaluation, CT surgery CABG benefit was medically limited. Given his high risk and difficult social situation (lives alone with out acaretmica), PCI was recommended. He was loaded with [...] Lab Data: DISCHARGE BASIC LABS: Recent Labs 04/19/230 04/18/23 0330 04/17/23 0315 WBC 5.5 4.2 [...] PHOS 3.9 3.6 4.2 Recent Labs 04/13/23 2107 BILITOT 0.3 BILIDIR 0.1 AST 27 ALT 10 ALKPHOS 53 No results for input(s): INR, PTT in the last 168 hours. OTHER HASTINGS LABS: Recent Labs 04/13/232106 HA1C 8.0* Recent Labs 04/13/23 2107 TSH 2.97 Recent Labs 04/14/23 0040 HDL [...] distal LAD, 70% ostial D1 LCx: Ostial CLINICAL STAFF RN RCA: Not injected - Successful mini-crush of the LM/LAD/LCX bifurcation with a 3.0 x 34 mm [place] Blaine in the LCX and 3.5 x 26 mm [place] Blaine ARJUN to the LAD. - Normal cardiac [...] HYDROcodone-acetaminophen 5-325 mg tablet Commonly known as: Concord Take 1 tablet by mouth every 6 [...] attack called (NSTEMI). You went to the open hearth furnace laborer which showed multiple arteries of your heart [...] HYDROcodone-acetaminophen 5-325 mg tablet Commonly known as: [place] Take 1 tablet by mouth every 6 [...] 04/27/2023 at 10 AM PCP JESSE Nesbitt [facility] Cardiology in [place], Dr. Rudolph [phone]. We left voicemail with office requesting a 4-6 week office follow-up visit. Please call them if you do not hear from them in next week. Future Appointments Date Time Provider Department Center 05/09/2023 9:30 AM Thomas Curtis MD [facility] Your follow-up open hearth furnace laborer intervention will be 05/02/23 at noon, please arrive at least 1 hour early Your Inpatient Medical Team at [facility] Name(s) of your inpatient provider(s): Willis Maldonado MD Your Primary Care Provider: JESSE Nesbitt [phone] For questions regarding this document or issues relating to this hospitalization on the Medical Service, please contact your inpatient physician through the [facility] Hair Spring Cutter . Issues afterhours and on weekends will be handled by the Hospitalist staff on-call. General Instructions None Future Appointments and Orders Future Appointments and Orders Future Appointments Provider Department Dept Phone 05/09/2023 9:30 AM Fiordaliza Downing APRN; Thomas Curtis MD Hematology/Oncology at [facility] Arrive at: [facility] door at end of hallway [phone] Provider Contact Information: JESSE Nesbitt [address] [address] / [place] [address] Discharge References/Attachments: Discharge References/Attachments Healthy Diet: Heart ([place]an) CAD (Coronary Artery Disease): General Info ([place]) Cardiology Staff Addendum: I was the attending physician of record at the time of this patient's discharge. I agree with the information documented above. I spent >30 minutes (Day of Discharge Code 38609) involved in the final examination of the patient, discussion of the hospital stay, instructions for continuing care to all relevant caregivers, and preparation of discharge records, prescriptions and referral forms. Willis Maldonado MD [facility] Staff [facility] documented in this encounter Discharge Instructions * Patient Instructions* Severo Calderon MD - 04/19/2023 9:13 AM EST Instructions on Discharge to Home Why you were hospitalized - You came to the hospital with chest pain. Your findings was consistent for a heart attack called (NSTEMI). You went to the open hearth furnace laborer which showed multiple arteries of your heart [...] HYDROcodone-acetaminophen 5-325 mg tablet Commonly known as: Concord Take 1 tablet by mouth every 6 [...] 04/27/2023 at 10 AM PCP JESSE Nesbitt [facility] Cardiology in [place], Dr. Rudolph [phone]. We left voicemail with office requesting a 4-6 week office follow-up visit. Please call them if you do not hear from them in next week. Future Appointments Date Time Provider Department Center 04/25/2023 9:00 AM Sameer Rudolph MD [facility] Cardio [facility] 05/09/2023 9:30 AM Thomas Curtis MD [facility] Your follow-up open hearth furnace laborer intervention will be 05/02/23 at noon, please arrive at least 1 hour early Your Inpatient Medical Team at [facility] Name(s) of your inpatient provider(s): Willis Maldonado MD Your Primary Care Provider: JESSE Nesbitt [phone] For questions regarding this document or issues relating to this hospitalization on the Medical Service, please contact your inpatient physician through the [facility] Hair Spring Cutter . Issues afterhours and on weekends will be handled by the Hospitalist staff on-call. * Attachments The following attachments cannot be sent through Care Everywhere. * Healthy Diet: Heart ([place]) * CAD (Coronary Artery Disease): General Info ([place]an) documented in this encounter Medications at Time [...] 150 mcg by mouth daily. HYDROcodone-acetamino phen (Concord) 5-325 mg tablet Take 1 tablet by [...] Pt back on floor @1425. No pain. laboratory mechanic helper site is C/D/I. Bed rest due to d/c at 1630. Patient is able to make needs know. Call molina within reach. * Willis Maldonado MD - 04/18/2023 9:12 AM EST Images from the original note were not included. Inpatient Cardiology Progress Note Patient info: Name: Huber Mosher : 1955 PCP: JESSE Nesbitt PCP phone number: [phone] Date of Admission: 04/13/2023 ( Hospital Day 5 days ) Attending:Willis Maldonado MD ID: Huber Mosher is a 67 y.o. male w/ PMH of CAD (per CT scan imaging), HFrEF, cardiomyopathy(stress vs ischemic), high risk prostate cancer with multiple mets to bones/lymph nodes,CKD, IDDM2,hypothyroidism who was transferred from [place] for NSTEMI. 24 Hour Events/Subjective: - NPO [...] 170 149 147 216* 226* 156 Imaging: [facility] (04/14/23): Ao 94/40 mean 66 LV 99 EDP 25 Conclusions: * Three vessel coronary artery disease (LAD, LCX and RCA) * Elevated left ventricular end diastolic pressure * Severe calcified distal LM and ostial LAD stenosis * CLINICAL STAFF RN of the ostial LCx, this is a smaller vessel * Recommend heart team consult to consider PCI vs CABG. He may not be a good candidate for bypass given co-morbidities and targets. In this case would plan for staged PCI of LM-LAD with considerationof CLINICAL STAFF RN PCI of LCx. He had CKD and [...] [MAY Hold] lidocaine 1 patch Transdermal Daily [MAY Hold] atorvastatin 40 mg Oral Daily [MAY Hold] [...] nodes,CKD, IDDM2, hypothyroidism who was transferred from [place] for NSTEMI was found to have 3 vessel disease confirmed by [facility]. Mr. Mellekas opted for PCI with Dr. Esposito today. Will stent Left main and LAD with possible stentof CLINICAL STAFF RN of Lcx. Lcx may be delayed as [...] goal of stenting L main/LAD and possibly CLINICAL STAFF RN of Lcx. #Metastatic prostate cancer -hold darolutamide given cardiotoxicity until f/u with primary oncologist, per hem onc -prn tylenol -home tamsulosin #T2DM --Sensitive SSI --lantus 5 units (dose reduced from 10-12 units at home) #Hypothyroidism -continue home synthroid #Routine Diet: Daily Healthy Menu Choices/Cardiac diet ([facility]-Diet) GI Prophylaxis: Docusate-Senna and Mirelax BID PRN DVT Prophylaxis: Heparin gtt, aspirin 81 mg Dispo: Pending clinical course Code Status: Attempt Cardiopulmonary Resuscitation - Inpatient Lisa Bernard, MS3 [facility] 04/18/23 9:24 AM * Willis Maldonado MD - 04/18/2023 6:40 AM EST Images from the original note were not included. Inpatient Cardiology Progress Note Patient info: Name: Huber Mosher : 1955 PCP: JESSE Nesbitt PCP phone number: [phone] Date of Admission: 04/13/2023 ( Hospital Day 5 days ) Attending:Willis Maldonado MD ID: Huber Mosher is a 67 y.o. male w/ PMH of PMH CAD (per CT scan imaging), cardiomyopathy (stress vs ischemic), high risk prostate cancer with multiple mets to bones/lymph nodes,CKD, IDDM2, hypothyroidism, and bilateral hydronephrosis s/p stents who presents as a transfer from [place] for NSTEMI 24 Hour Events/Subjective: -- NPO [...] drainage 04/14/23 1920 Labs: Recent Labs 04/18/23 0330 04/17/235 04/16/23 0425 04/15/23 0511 04/14/23 0040 WBC 4.2 4.0 4.3 4.3 5.0 HGB 9.0* 8.0* 8.1* 8.3* 8.6* HCT 27.1* 23.9* 24.5* 25.5* 25.3* PLATELET 321 299 286 305 314 MCV 93.1 94.1* 93.5* 97.0* 94.4* Recent Labs 04/18/23 0330 04/17/2331404/16/23 0425 04/15/23 0511 04/14/23 0040 NA 137 [...] 0617 TSH 2.97 3.16 Recent Labs 04/18/23 0339 04/17/23 2332 04/17/23 1931 04/17/23 1610 04/17/23 1047 04/17/23 0740 04/17/23 0325 04/17/23 0006 04/16/23 2015 04/16/23 1526 04/16/23 1121 04/16/23 0733 POCGLU 157 157 155 235* 128 170 149 147 216* 226* 156 149 Heme No results for input(s): LDH, HAPTOGLOBIN, URICACID in the last 168 hours. ABG (Arterial Blood Gas) No results found for: PHART, PO2ART, FQI0BAH, HLE9DPJ Microbiology: Microbiology Results (Last 30 days) No [...] stents who presents as a transfer from [place] for NSTEMI Discussion with Dr. Thompson today patient to go for PCI with impella this AM and currently at cath. Patient was loaded with Plavix yesterday and started on scheduled Plavix this AM. Received 1u pRBCyesterday in anticipation of hemolysis with Impella. Will f/u recs after open hearth furnace laborer as plan to stent LM-LAD and utilize [...] demonstrated severe distal LM and oLAD stenosis, CLINICAL STAFF RN RCA, moderate oRPDA. Major Issues Addressed: ASCVD, multiple vessel disease Ischemic cardiomyopathy Metastatic prostate cancer Assessment & Plan: PCI today. Continue DAPT, statin. Will titrate up HFrEF therapies post PCI. Willis Maldonado MD, [facility] Staff Exchange Teller * Lisa Yarbrough - 04/17/2023 7:58 AM EST Images from the original note were not included. Inpatient Cardiology Progress Note Patient info: Name: Huber Mosher : 1955 PCP: JESSE Nesbitt PCP phone number: [phone] Date of Admission: 04/13/2023 ( Hospital Day 4 days ) Attending:Willis Maldonado MD ID: Huber Mosher is a 67 y.o. male w/ PMH of CAD (per CT scan imaging), HFrEF, cardiomyopathy(stress vs ischemic), high risk prostate cancer with multiple mets to bones/lymph nodes,CKD, IDDM2,hypothyroidism who was transferred from [place] for NSTEMI. 24 Hour Events/Subjective: - NPO [...] 04/13/232106 PROBNP 6,510* Endocrine Recent Labs 04/13/23 21009/30/22 0617 TSH 2.97 3.16 Recent Labs 04/17/23 0740 04/17/23 0325 04/17/23 0006 04/16/23201404/16/23 1526 04/16/23 1121 04/16/23 0733 04/16/23 0405 04/15/23 2350 04/15/23 2143 04/15/23 1937 04/15/23 1645 POCGLU 170 149 147 216* 226* 156 149 162 133 130 249* 186 Imaging: [facility] (04/14/23): Ao 94/40 mean 66 LV 99 EDP 25 Conclusions: * Three vessel coronary artery disease (LAD, LCX and RCA) * Elevated left ventricular end diastolic pressure * Severe calcified distal LM and ostial LAD stenosis * CLINICAL STAFF RN of the ostial LCx, this is a smaller vessel * Recommend heart team consult to consider PCI vs CABG. He may not be a good candidate for bypass given co-morbidities and targets. In this case would plan for staged PCI of LM-LAD with considerationof CLINICAL STAFF RN PCI of LCx. He had CKD and [...] nodes,CKD, IDDM2, hypothyroidism who was transferred from [place] for NSTEMI was found to have 3 vessel disease confirmed by [facility]. Mr. Mosher is being evaluated today for PCI. Will continue to hold plavix. Will f/u interventional cardiology for recs possible PCI of left main/LAD today without stenting of CLINICAL STAFF RN in RCA with possible staged procedure later [...] #Routine Diet: Daily Healthy Menu Choices/Cardiac diet ([facility]-Diet) GI Prophylaxis: Docusate-Senna and Mirelax BID PRN DVT Prophylaxis: Heparin gtt, aspirin 81 mg Dispo: Pending clinical course Code Status: Attempt Cardiopulmonary Resuscitation - Inpatient Lisa Alvarado Marco Antonio, MS3 [facility] 04/17/23 9:58 AM * Willis Maldonado MD - 04/17/2023 6:27 AM EST Images from the original note were not included. Inpatient Cardiology Progress Note Patient info: Name: Huber Mosher : 1955 PCP: JESSE Nesbitt PCP phone number: [phone] Date of Admission: 04/13/2023 ( Hospital Day 4 days ) Attending:Willis Maldonado MD ID: Huber Mosher is a 67 y.o. male w/ PMH of PMH CAD (per CT scan imaging), cardiomyopathy (stress vs ischemic), high risk prostate cancer with multiple mets to bones/lymph nodes,CKD, IDDM2, hypothyroidism, and bilateral hydronephrosis s/p stents who presents as a transfer from [place] for NSTEMI 24 Hour Events/Subjective: -- NPO [...] Date 04/11/23 04/11/23 114 Port De-Access Time 1146 04/11/23 114 Port De-Access Indication other (see comments) 04/11/23 1146 PIV 04/12/23 223 basilic vein (medial side of arm), left [...] 93.5* 97.0* 94.4* 96.1* Recent Labs 04/17/2331404/16/2342404/15/23 0504/14/233904/13/232106 NA 138 135 137 134* 135 CL [...] Gas) No results found for: PHART, PO2ART, THE6CDI, HQR0VWE Microbiology: Microbiology Results (Last 30 days) No [...] stents who presents as a transfer from [place] for NSTEMI Per [facility] patient has severe multivessel CAD. [...] - Inpatient Dispo: Pending clinical course Tomer N Alpheaus, MD Internal Medicine, PGY-1 Cardiology, S2 04/17/23 [...] demonstrated severe distal LM and oLAD stenosis, CLINICAL STAFF RN RCA, moderate oRPDA. Major Issues Addressed: ASCVD, multiple vessel disease Ischemic cardiomyopathy Acute on chronic HFrEF Metastatic prostate cancer Assessment & Plan: Discussed with Hollow Handle Bench Worker, Dr. Citlalli Esposito. Will plan on proceeding with PCI tomorrow. Will plan on probing LCx but if appears to be technically challenging using antegrade approach, will focus on stenting LM-LAD. Will also utilize Impella to assist/off-load LV. Will decide on RCA pending left coronary interventions. Load with clopidogrel today. Will transfuse 1U PRBC given anticipated hemolysis with Impella. Willis Maldonado MD, [facility] Staff Exchange Teller * Willis Maldonado MD - 04/16/2023 6:29 AM EST Images from the original note were not included. Inpatient Cardiology Progress Note Patient info: Name: Huber Mosher : 1955 PCP: JESSE Nesbitt PCP phone number: [phone] Date of Admission: 04/13/2023 ( Hospital Day 3 days ) Attending:Willis Maldonado MD ID: Huber Mosher is a 67 y.o. male w/ PMH of PMH CAD (per CT scan imaging), cardiomyopathy (stress vs ischemic), high risk prostate cancer with multiple mets to bones/lymph nodes,CKD, IDDM2, hypothyroidism, and bilateral hydronephrosis s/p stents who presents as a transfer from [place] for NSTEMI 24 Hour Events/Subjective: -- Plan [...] formation;no drainage 04/14/23 1920 Labs: Recent Labs 04/16/2342404/15/2351004/14/230 04/13/232106 WBC 4.3 4.3 5.0 5.5 HGB 8.1* 8.3* 8.6* 9.0* HCT 24.5* 25.5* 25.3* 27.4* PLATELET 286 305 314 318 MCV 93.5* 97.0* 94.4* 96.1* Recent Labs 04/16/2342404/15/23 0504/14/23 0040 04/13/232106 NA 135 137 134* 135 CL 102 [...] Gas) No results found for: PHART, PO2ART, LSD1CUP, KSG3DAB Microbiology: Microbiology Results (Last 30 days) No [...] stents who presents as a transfer from [place] for NSTEMI Per [facility] patient has severe multivessel CAD. [...] today in setting of possible going to open hearth furnace laborer tomorrow. #NSTEMI type 1 #Multivessel ASCVD #HFrEF [...] (peak trop 5255). LVEF 29%, mode rate MRGael C demonstrated severe distal LM and oLAD stenosis, CLINICAL STAFF RN RCA, moderate oRPDA. Major Issues Addressed: ASCVD, multiple vessel disease Ischemic cardiomyopathy HFrEF Metastatic prostate cancer Assessment & Plan: Interventional Cardiology consult tomorrow AM for high-risk PCI. Will tentatively make pt NPO p MN for possible PCI (anticipate staged). Willis Maldonado MD, [facility] Staff Exchange Teller * Willis Maldonado MD - 04/15/2023 7:57 AM EST Images from the original note were not included. Inpatient Cardiology Progress Note Patient info: Name: Huber Mosher : 1955 PCP: JESSE Nesbitt PCP phone number: [phone] Date of Admission: 04/13/2023 ( Hospital Day 2 days ) Attending:Willis Maldonado MD ID: Huber Mosher is a 67 y.o. male w/ PMH of PMH CAD (per CT scan imaging), cardiomyopathy (stress vs ischemic), high risk prostate cancer with multiple mets to bones/lymph nodes,CKD, IDDM2, hypothyroidism, and bilateral hydronephrosis s/p stents who presents as a transfer from [place] for NSTEMI 24 Hour Events/Subjective: -- LHC showing Left Main, LAD, Left Cx (CLINICAL STAFF RN), RCA disease. No intervention due to possible [...] streak formation;no drainage 04/14/231919 Labs: Recent Labs 04/15/23 0504/14/233904/13/232106 WBC 4.3 5.0 5.5 HGB 8.3* 8.6* 9.0* HCT 25.5* 25.3* 27.4* PLATELET 305 314 318 MCV 97.0* 94.4* 96.1* Recent Labs 04/15/23 0504/14/233904/13/232106 NA 137 134* 135 CL 104 103 [...] Gas) No results found for: PHART, PO2ART, NBS9HWL, WWT6HZI Microbiology: Microbiology Results (Last 30 days) No [...] stents who presents as a transfer from [place] for NSTEMI Per [facility] patient has severe multivessel CAD. [...] demonstrated severe distal LM and oLAD stenosis, CLINICAL STAFF RN RCA, moderate oRPDA. Major Issues Addressed: ASCVD, [...] and heparin. Hold clopidogrel. Willis Maldonado MD, [facility] Staff Exchange Teller * Willis Maldonado MD - 04/15/2023 7:23 AM EST Images from the original note were not included. Inpatient Cardiology Progress Note Patient info: Name: Huber Mosher : 1955 PCP: JESSE Nesbitt PCP phone number: [phone] Date of Admission: 04/13/2023 ( Hospital Day 2 days ) Attending:Willis Maldonado MD ID: Huber Mosher is a 67 y.o. male w/ PMH of CAD (per CT scan imaging), HFrEF, cardiomyopathy(stress vs ischemic), high risk prostate cancer with multiple mets to bones/lymph nodes,CKD, IDDM2,hypothyroidism who was transferred from [place] for NSTEMI. 24 Hour Events/Subjective: - LHC: [...] 146 143 181 148 184 146 Imaging: [facility]: Ao 94/40 mean 66 LV 99 EDP 25 Conclusions: * Three vessel coronary artery disease (LAD, LCX and RCA) * Elevated left ventricular end diastolic pressure * Severe calcified distal LM and ostial LAD stenosis * CLINICAL STAFF RN of the ostial LCx, this is a smaller vessel * Recommend heart team consult to consider PCI vs CABG. He may not be a good candidate for bypass given co-morbidities and targets. In this case would plan for staged PCI of LM-LAD with consideration of CLINICAL STAFF RN PCI of LCx. He had CKD and [...] nodes,CKD, IDDM2, hypothyroidism who was transferred from [place] for NSTEMI was found to have 3 vessel disease confirmed by [facility]. [facility] cath showed multivessel disease in [...] p lavix for stent. Consider therapy or assembler seat consult for increased anxiety surrounding diagnosis and [...] #Routine Diet: Daily Healthy Menu Choices/Cardiac diet ([facility]-Diet) DVT Prophylaxis: None Dispo: Pending clinical course Code Status: Attempt Cardiopulmonary Resuscitation - Inpatient Lisa Bernard, MS3 [facility] 04/15/23 10:47 AM * Elizabeth Sinclair, PT - 04/14/2023 2:05 PM EST PT Note Physical Therapy referral received. Pt is mobilizing independently. He is walking with nursing and mobility tech around unit. No PT needs at this time. Elizabeth Sinclair PT Pager [phone] * Kade Balbuena MD - 04/14/2023 4:53 AM EST Images from the original note were not included. Formerly [facility] [place] [address] [place] [address] SAME DAY CARDIAC CATHETERIZATION LAB H&P ID: [...] He presented to the emergency room in [place]. Initial EKG noted below with borderline ST [...] as planned -consent signed Kade Balbuena MD Software Quality Assurance Analyst 04/14/2023 documented in this encounter H&P Notes * Willis Maldonado MD - 04/14/2023 12:10 AM EST Cardiology H&P Patient info: Name: Huber Mosher : 1955 PCP: JESSE Nesbitt (Inactive) PCP phone number: [phone] Date of Admission: 04/13/2023 ( Hospital Day 0 days ) Attending:Tha Winters MD ID: Huber Mosher is a 67 y.o. male w/ PMH CAD (per CT scan imaging), cardiomyopathy (stress vs ischemic), high risk prostate cancer with multiple mets to bones/lymph nodes,CKD, IDDM2, hypothyroidism, and bilateral hydronephrosis s/p stents who presents as a transfer from [place] for NSTEMI. Patient states he was in his normal state of health until 10 PM last night (Monday), when he developed sudden onset 8/10 left sided chest pain with radiation into his shoulder. He had associated shortness of breath but denied any diaphoresis, lightheadedness, dizziness, nausea, or syncope. He presented to [place] where initial EKG showed borderline LITO in [...] started on a heparin drip. Transferred to [facility] for further care. On arrival, patient is [...] 27%). A recent echo on 03/29 at [place] showed an EF 46% with regional WMA. ROS: Per HPI. PMH PSH Allergies: Home Medications: Current Outpatient Medications Medication Instructions acetaminophen (TYLENOL) 650 mg, Oral, 3 TIMES DAILY atorvastatin (LIPITOR) 40 mg, Oral, DAILY cholecalciferol (VITAMIN D3) 1,000 Units, Oral, DAILY darolutamide (NUBEQA) 600 mg, Oral, 2 TIMES DAILY, Call clinic before starting medication HYDROcodone-acetaminophen ([place]) 5-325 mg tablet 1 tablet, Oral, EVERY [...] Gas) No results found for: PHART, PO2ART, OMF5JAL, BNA3GZN Microbiology: Imaging/Diagnostics: Assessment & Plan: Huber Mosher is a 67 y.o. male w/ PMH CAD (per CT scan imaging), cardiomyopathy (stress vs ischemic), high risk prostate cancer with multiple mets to bones/lymph nodes,CKD, IDDM2, hypothyroidism, and bilateral hydronephrosis s/p stents who presents as a transfer from [place] for NSTEMI. Given his high bleeding risk [...] #Routine Diet: Daily Healthy Menu Choices/Cardiac diet ([facility]-Diet) NPO diet (Give Meds) DVT Prophylaxis: None [...] including distal LM, ostial LAD severe stenosis, CLINICAL STAFF RN of Lcx and severe stenosis of oRPDA. CT Surgery consulted - discussed with Dr. Rodgers, who will assess patient.Heparin gtt while awaiting revascularization. Diurese given elevated LVEDP. Aspirin, statin. Will slowly titrate GDMT. Willis Maldonado MD, [facility] Staff Exchange Teller documented in this encounter Miscellaneous Notes * [...] Embolism Signs and Symptoms 04/19/2023 1322 by Aslheigh Babcock RN Outcome: Outcome (s) achieved 04/19/2023 [...] in the outpatient cardiac rehabilitation program at [facility] was discussed. Patient agrees to a [...] Operative Note Patient Name: Huber Mosher : [id number] MR#: [id number] Case Date: 04/18/2023 Surgeon: Surgeon(s) and Role: * Citlalli Esposito MD - Primary * Puma Hernandez MD - Fellow - Assisting Preoperative diagnosis: NSTEMI Postoperative diagnosis: NSTEMI Preliminary Cardiac Catheterization Procedure Note: Procedure(s) performed: Right Femoral Vein Access - 6 [place] Right Femoral Access ultrasound guided - 7 [place] --> Perclose Coronary Angiography Right Heart Cath IVUS PCI-Stent Preliminary findings: Femoral Angio: Insertion site in the mid common femoral artery Coronary Angiography: Anatomically normal right dominant circulation LMCA: 80% distal LM disease LAD: 80% ostial LAD, 80% mid LAD, 80% distal LAD, 70% ostial D1 LCx: Ostial CLINICAL STAFF RN RCA: Not injected Contrast: 105 ccs Pre/Post: Hemodynamics: Conclusion: - Successful mini-crush of the LM/LAD/LCX bifurcation with a 3.0 x 34 mm [place] Blaine in the LCX and 3.5 x 26 mm Hebert Blaine ARJUN to the LAD. 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 Never , no children. HE has a sister who is flyingto see him. He currently live alone. 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 Patient states he was in his normal state of health until 10 PM last night (Monday), when he developed sudden onset 8/10 left sided chest pain with radiation into his shoulder. He had associated shortness of breath but denied any diaphoresis, lightheadedness, dizziness, nausea, or syncope. He presented to [place] where initial EKG showed borderline LITO in [...] started on a heparin drip. Transferred to [facility] for further care. On arrival, patient is [...] 27%). A recent echo on 03/29 at [place] showed an EF 46% with regional WMA. [...] - 03/21/23 3 cycles of docetaxel Huber C Mellekas diagnosed with de angélica metastatic prostate cancer [...] carcinoma, consistent with prostatic origin (see discussion) [place] light chain deposition disease Gout Cardiomyopathy 09/2022: EF 27%, apical AK Retroperitoneal lymphadenopathy Hydronephrosis Pleural effusion, bilateral Bilateral lower extremity edema PSHX: Past Surgical History: Procedure Laterality Date CATARACT REMOVAL WITH IMPLANT 2019 CT GUIDED BIOPSY LYMPH NODE(CHEST/ABD/PELVIS) 09/30/2022 CT Guided Biopsy Lymph Node (Chest/Abd/Pelvis) 09/30/2022 Evangelist Sparks MD [facility] RAD CT SCAN HAND SURGERY Left 1997 Left thumb repair surgery INGUINAL HERNIA REPAIR 1954 as an PRO ALLOGRAFT FOR SPINE SURGERY ONLY MORSELIZED Bilateral 03/17/2022 ALLOGRAFT FOR SPINE SURGERY ONLY; MORSELIZED (WRVU *) performed by Bebe Hatfield MD at [facility] MAIN OR PRO ARTHRD ANT INTERDY CERVCL BELW C2 EA ADDL NTRSPC Bilateral 03/17/2022 ARTHRODESIS ANT INTERBDY CERVCL BELOW C2 EA ADDL INTRSPACE (WRVU 6.5) performed by Bebe Hatfield MD at [facility] MAIN OR PRO ARTHRODESIS, ANT INTERBODY,DECOMPRESSION; CERVICAL BELOW C2 Bilateral 03/17/2022 ARTHRODESIS, ANT INTERBODY,DECOMPRESSION; CERVICAL BELOW C2 (WRVU 25) performed by Bebe Hatfield MD at [facility] MAIN OR PRO CYSTOSCOPY, INSERT URETERAL STENT Bilateral 09/29/2022 CYSTO, STENT PLACEMENT (WRVU 2.82) performed by Evangelist Castañeda MD at [facility] MAIN OR PRO INSERT BIOMCHN DEV INTERVERTEBRAL DSC SPC W/ARTHRD Bilateral 03/17/2022 INSERTION INTERBODY BIOMECH DEV TO INTERVEBRAL DISC SPACE, EA INTERSPACE (WRVU 4.25) performed by Bebe Hatfield MD at [facility] MAIN OR US GUIDED BIOPSY PROSTATE WITH URONAV FUSION 12/20/2021 US Guided Biopsy Prostate with Uronav Fusion 12/20/2021 [facility] RAD ULTRASOUND MEDS: Scheduled Meds: [...] Intimate Partner Violence: Not At Risk (04/11/2023) DH IPV Inpatient Questions Prevent Contact with [...] Vascular Unit Level 3 Wing B at [facility] Weight 85.6 kg (188 [...] QTC Calculated (Bezet) 424 ms Calculated P [place] 43 degrees Calculated R [place] 50 degrees Calculated T [place] -143 degrees INTERPRETATION Normal sinus rhythm ST [...] for each patient, but based on ARASENStrial (https://www.nejm.org/doi/10.1056/ZBDSpx3589934), the 4 year overall survival was 62.7%. [...] Hima Reyes M.D. Hematology/Oncology Fellow Pager # [phone] 04/14/23, 5:31 PM Hematology/[place] [address] * Initial Assessments - Nancy Lai RN - 04/14/2023 2:21 PM EST Office of Care Management Initial Assessment Nancy Lai RN reviewed record and discussed patient with Care Team. Source of Information: Team, bedside nurse, medical record, and Patient. Introduced self/reviewed role; services accepted. Admitted From: Transfer from another hospital Location: [facility] Reason for Hospitalization: Chest and shoulder [...] surrogate would be surrogate decision maker per [place] surrogate decision making law. (Only good for 180 days) Any patient receiving care in [place] must abide by [place] law. 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) Current DME: none Home Address confirmed as: [address] [address] Social & Family Supports: All names listed below confirmed with patient as current and correct Extended Emergency Contact Information Primary Emergency Contact: SANTA CARCAMO Address: [place] [address] [facility] Relation: Friend Secondary Emergency Contact: Ct [...] Yes ; Prescription Coverage: Yes Preferred Pharmacy: [facility] [address] [place] [address] [place] [address] [facility] Home Delivery - [place], [place] - [address] [facility] [address] [facility] [address] [employer] - [address] [facility] [address] [facility], [facility] - [place], [place] - [address] [place] [address] [place] [address], [address] [address] Status: Patient is a : No Primary Care Provider confirmed: JESSE Nesbitt [phone] Patient/Caregiver Goals of Treatment: To be able to return home soon Potential Needs for Transition of Care: none Agency Referrals: Not Applicable at this time. Transportation: no concerns Transportation Anticipated: family or friend will provide Concerns to be Addressed: discharge planning Assessment: Patient is admitted to Cardiology service for NSTEMI. Pt is functionally independent, lives alone prior to hospitalization. SisterCt lives in [place] but is the patient's SDM. Plan: Will continue to monitor d/c needs. A member of the Care Management team will continue to monitor progress, follow for continuity of care and assist with transition of care planning. STAR Garcia, RN Inpatient Chief Deputy Sheriff- Cardiology Office of Care Management Pager #: [phone] * Plan of Care - Estefani Crowder [...] 04/13/2023 7:12 PM EST Pt arrived to [facility] around 1730. Pt AOx4.VSS on RA. [...] PM EDT Office Visit Hematology/Oncology at [address] [phone] Fiordaliza Downing APRN [facility] [place] [address] 11/10/2023 9:00 AM EDT Appointment [place] [address] Thomas Curtis MD [facility] [place] [address] 11/21/2023 11:00 AM EDT Infusion Hematology Oncology at [address] [phone] 12/05/2023 1:30 PM EDT Office Visit Hematology/Oncology at [address] [phone] Thomas Curtis MD [facility] [place] [address] Fiordaliza Downing APRN [facility] [place] [address] 12/26/2023 9:00 AM EDT Appointment [place] [phone] Thomas Curtis MD [facility] [place]AT[place] [address] 02/09/2024 8:00 AM EST Appointment [place] [address] Thomas Curtis MD [facility] [place]AT[place] [address] 03/18/2024 3:00 PM EST Office Visit Cardiology at [address] [phone] Sameer Rudolph MD [facility] [address] 03/22/2024 9:00 AM EST Appointment [place] [phone] Thomas Curtis MD [facility] [place] [address] 08/23/2024 Hospital Encounter [place] [phone] True Juarez MD [facility] [address] Scheduled Procedures Name Priority Associated Diagnoses Date/Ti [...] Glucose, POC 155 65 - 199 mg/dL [facility] Comment: Supplemental ranges: <140 mg/dL before meals <180 mg/dL all other times of the day Blood 04/19/2023 12:1 5 PM EST 04/19/2023 12:15 PM EST Willis Maldonado MD POINT OF CARE TEST O RDERABLES [facility] [place] [address] * POCT Glucose (04/19/2023 7:40 AM EST) Glucose, POC 173 65 - 199 mg/dL [facility] Comment: Supplemental ranges: <140 mg/dL before meals <180 mg/dL all other times of the day Blood 04/19/2023 7:40 AM EST 04/19/2023 7:40 AM EST Willis Maldonado MD POINT OF CARE TEST O RDERABLES [facility] [place] [address] * (ABNORMAL) Differential, Automated (04/19/2023 4:00 AM EST) [facility] Neutrophil % 51.7 % [facility] Neutrophil Absolute 2.83 1.70 - 6.10 x10(3)/mc L [facility] Lymph % 20.3 % [facility] Lymphocytes Abs 1.1 0.9 - 3.2 x10(3)/mc L [facility] Monocyte % 17.0 % [facility] Monocyte Abs 0.9 0.3 - 0.9 x10(3)/mc L [facility] Eos % 9.0 % [facility] Eosinophils Abs 0.5(H) 0.0 - 0.4 x10(3)/mc L [facility] Basophil % 1.5 % [facility] Baso Absolute 0.1 0.0 - 0.1 x10(3)/mc L [facility] Immature Gran % 0.50 % [facility] Comment: Immature granulocytes(IG's)percentage and absolute count will include metamyelocytes, myelocytes, and promyelocytes. Blood smears from CBCs yielding IG's will be scanned manually for concordance. If this scan disagrees with the automated IG or if promyelocytes are noted, a manual differential will be performed. Immature Gran Absolute 0.03 0.00 - 0.04 x10(3)/mc L [facility] Blood 04/19/2023 4:00 AM EST 04/19/2023 4:16 AM EST Narrative Resulting Agency Comment Spec In Lab Milli N Maria MD HEMATOLOGY ORDERABLE S [facility] [place] [address] * (ABNORMAL) Hemogram (04/19/2023 4:00 AM EST) White Blood Cell 5.5 4.0 - 9.5 x10(3)/mc L [facility] Red Blood Cell 2.88(L) 4.58 - 5.54 x10(6)/mc L [facility] Hemoglobin 9.1(L) 13.7 - 16.5 g/dL [facility] Hematocrit 27.3(L) 40.5 - 48.5 % [facility] Mean Cell Volume 94.8(H) 82.9 - 93.1 fL [facility] Mean Cell Hemoglobin 31.6 27.5 - 32.1 pg [facility] Mean Cell Hemoglobin Concentration 33.3 32.0 - 35.7 g/dL [facility] Platelet 305 145 - 357 x10(3)/mc L [facility] RDW Standard Deviation 63.4(H) 36.0 - 45.0 fL [facility] RDW coefficient of variation 18.5(H) 11.4 - 13.8 % [facility] Mean Platelet Volume 9.6 7.6 - 12.9 fL [facility] NRBC% auto 0.0 % [facility] NRBC Absolute 0.000 0.000 - 0.000 x10(3)/mc L [facility] Blood 04/19/2023 4:00 AM EST 04/19/2023 4:16 AM EST Narrative Resulting Agency Comment Spec In Lab Milli Maria MD HEMATOLOGY ORDERABLE S [facility] [place] [address] * Phosphorus (04/19/2023 4:00 AM EST) Phosphorus 3.9 2.5 - 4.5 mg/dL [facility] Blood 04/19/2023 4:00 AM EST 04/19/2023 4:16 AM EST Narrative Resulting Agency Comment Spec In Lab Tha Winters MD CHEMISTRY ORDERABLE S Performing Organization Address [facility] Co de Phone Number [facility] [place] [address] * Magnesium (04/19/2023 4:00 AM EST) Magnesium 0.79 0.69 - 1.07 mmol/L [facility] Blood 04/19/2023 4:00 AM EST 04/19/2023 4:16 AM EST Narrative Resulting Agency Comment Spec In Lab Tha Winters MD CHEMISTRY ORDERABLE S Performing Organization Address [facility] Co de Phone Number [facility] [place] [address] * (ABNORMAL) Basic Metabolic Panel (non-fasting) (04/19/2023 4:00 AM EST) Glucose 144 65 - 199 mg/dL [facility] Comment:Diabetes: >=200 mg/d L plus symptoms Blood Urea Nitrogen 26(H) 10 - 20 mg/dL [facility] Creatinine 1.52(H) 0.80 - 1.50 mg/dL [facility] Sodium 136 135 - 145 mmol/L [facility] Potassium 4.5 3.5 - 5.0 mmol/L [facility] Comment: Please note: ??Patients with WBC >100,000 may have falsely elevated Potassium levels. ??For accurate Potassium quantification in these patients send serum separator tube (gold top) for subsequent determinations. ??Contact the Clinical Chemistry Laboratory if there are any questions. Chloride 106 98 - 107 mmol/L [facility] Carbon Dioxide 19(L) 22 - 31 mmol/L [facility] Anion Gap 11 5 - 15 mmol/L [facility] Calcium 8.8 8.5 - 10.5 mg/dL [facility] Est Glomerular Filtration Rate 50(L) >=60 mL/min/1. 73 m?? [facility] Comment: This patient's [...] MD CHEMISTRY ORDERABLE S Performing Organization Address City/[facility]/ZIP Co de Phone Number [facility] [place] [address] * POCT Glucose (04/19/2023 3:54 AM EST) Glucose, POC 153 65 - 199 mg/dL [facility] Comment: Supplemental ranges: <140 mg/dL before meals <180 mg/dL all other times of the day Blood 04/19/2023 3:54 AM EST 04/19/2023 3:54 AM EST Willis Maldonado MD POINT OF CARE TEST O DANIEL Performing Organization Address [facility] Co de Phone Number [facility] [place] [address] * POCT Glucose (04/18/2023 11:24 PM EST) Glucose, POC 135 65 - 199 mg/dL [facility] Comment: Supplemental ranges: <140 mg/dL before meals <180 mg/dL all other times of the day Blood 04/18/2023 11:2 4 PM EST 04/18/2023 11:24 PM EST Willis Maldonado MD POINT OF CARE TEST O DANIEL Performing Organization Address City/[facility] Co de Phone Number [facility] [place] [address] * POCT Glucose (04/18/2023 8:17 PM EST) Glucose, POC 178 65 - 199 mg/dL [facility] Comment: Supplemental ranges: <140 mg/dL before meals <180 mg/dL all other times of the day Blood 04/18/2023 8:17 PM EST 04/18/2023 8:17 PM EST Willis Maldonado MD POINT OF CARE TEST O RDPRAVIN Performing Organization Address [facility] Co de Phone Number [facility] [place] [address] * POCT Glucose (04/18/2023 4:29 PM EST) Glucose, POC 124 65 - 199 mg/dL [facility] Comment: Supplemental ranges: <140 mg/dL before meals <180 mg/dL all other times of the day Blood 04/18/2023 4:29 PM EST 04/18/2023 4:29 PM EST Willis Maldonado MD POINT OF CARE TEST O DANIEL Performing Organization Address [facility] Co de Phone Number [facility] [place] [address] * EKG 12 Lead (04/18/2023 12:34 PM EST) Ventricular rate 68 BPM MUSE SYSTEM Atrial Rate 68 BPM MUSE SYSTEM P-R Interval 124 ms MUSE SYSTEM QRS Duration 98 ms MUSE SYSTEM Q-T Interval 440 ms MUSE SYSTEM QTC Calculated (Bezet) 467 ms MUSE SYSTEM Calculated P [place] 49 degrees MUSE SYSTEM Calculated R [place] 51 degrees MUSE SYSTEM Calculated T [place] -106 degrees MUSE SYSTEM INTERPRETATION Normal sinus rhythm ST & T wave abnormality, consider anterolateral ischemia Prolonged QT Abnormal ECG When compared with ECG of 13-APR-2023 22:01, No significant change was found Confirmed by MD Jerome, Pancho Carver ([id number]) on 04/23/2023 10:45:27 PM MUSE SYSTEM 04/18/2023 12:3 4 PM EST 04/23/2023 10:45 PM EST Willis Maldonado MD ECG ORDERABLES MUSE SYSTEM * POCT Glucose (04/18/2023 12:26 PM EST) Glucose, POC 145 65 - 199 mg/dL [facility] Comment: Supplemental ranges: <140 mg/dL before meals <180 mg/dL all other times of the day Blood 04/18/2023 12:2 6 PM EST 04/18/2023 12:26 PM EST Willis Maldonado MD POINT OF CARE TEST O RDERABLES Performing Organization Address [facility] de Phone Number [facility] [place] [address] * CARDIAC CATHETERIZATION (04/18/2023 12:15 PM EST) Anatomical Region Laterality Modality Other Narrative 04/19/2023 4:47 PM EST ?[facility] ? Cardiac Catheterization/Intervention Report ? Patient Name: Huber Mosher Brent. ? Procedure Date: 04/18/2023 ? A #: [id number] ? Primary Physician: Citlalli Esposito I ? Case #: [id number] ? File Name: [id number] ? Catheterization Order Number: [id number] ? [facility] ? Final Report [place], [place] ? Patient Name: ? Huber Mosher ?ID#: ?[id number] ? : ?1955 ? Procedure Date: ? [...] procedure was Urgent. 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 [...] atmospheres. ??A premounted 3.50 x 26 mm Spruce Pine Blaine (ARJUN) ? was deployed with a maximum [...] ??A premounted 3.00 x 34 mm Hebert Blaine (ARJUN) ? 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 ?Recommended anti-platelet/anti-thrombotic regimen: ?Continue aspirin 81 mg daily for 12 months then stop. ?Continue clopidogrel 75 mg daily for indefinitely. ?These recommendations are made at the time of the intervention. Patient ?and provider preferences or a changing clinical situation may require ?modification of this regimen. Consult [facility] Interventional Cardiology for ?questions. ?This patient has [...] against any medical treatment. Consult ?http://tools.acc.org/DAPTriskapp/#!/content/calculator/ or [facility] ?Interventional Cardiology for questions ? Conclusions: ?* [...] Procedure Note Citlalli Esposito MD - 04/19/2023 [facility] Cardiac Catheterization/Intervention Report Patient Name: EvanHuber jerry Procedure Date: 04/18/2023 A #: [id number] Primary Physician: Citlalli Esposito I Case #: [id number] File Name: [id number] Catheterization Order Number: [id number] [facility] FinalReport [place], [place] Patient Name: Huber Mosher ID#:[id number] :1955 Procedure Date: April 18, 2023 Case [...] diagnostic procedure was Urgent. 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 [...] time was 47.1 minutes, dose area product mwm887.00 Gy/cm2 and air kerma was 2,735 mGY. [...] atmospheres. A premounted 3.50 x 26 mm Spruce Pine Blaine(ARJUN) was deployed with a maximum inflation pressure [...] atmospheres. 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 Recommended anti-platelet/anti-thrombotic regimen: Continue aspirin 81 mg daily for 12 months then stop. Continue clopidogrel 75 mg daily for indefinitely. These recommendations are made at the time of the intervention.Patient and provider preferences or a changing clinical situation mayrequire modification of this regimen. Consult [facility] Interventional Cardiologyfor questions. This patient has a [...] or against any medical treatment.Consult http://tools.acc.org/DAPTriskapp/#!/content/calculator/ or [facility] Interventional Cardiology for questions Conclusions: * Obstructive [...] Glucose, POC 165 65 - 199 mg/dL [facility] Comment: Supplemental ranges: <140 mg/dL before meals <180 mg/dL all other times of the day Blood 04/18/2023 7:30 AM EST 04/18/2023 7:30 AM EST Willis Maldonado MD POINT OF CARE TEST O DANIEL [facility] [place] [address] * POCT Glucose (04/18/2023 3:39 AM EST) Glucose, POC 157 65 - 199 mg/dL [facility] Comment: Supplemental ranges: <140 mg/dL before meals <180 mg/dL all other times of the day Blood 04/18/2023 3:39 AM EST 04/18/2023 3:39 AM EST Willis Maldonado MD POINT OF CARE TEST O DANIEL Performing Organization Address City/[facility] Co de Phone Number [facility] [place] [address] * (ABNORMAL) Differential, Automated (04/18/2023 3:30 AM EST) [facility] Neutrophil % 33.9 % [facility] Neutrophil Absolute 1.41(L) 1.70 - 6.10 x10(3)/mc L [facility] Lymph % 32.2 % [facility] Lymphocytes Abs 1.3 0.9 - 3.2 x10(3)/mc L [facility] Monocyte % 18.3 % [facility] Monocyte Abs 0.8 0.3 - 0.9 x10(3)/mc L [facility] Eos % 13.7 % [facility] Eosinophils Abs 0.6(H) 0.0 - 0.4 x10(3)/mc L [facility] Basophil % 1.9 % [facility] Baso Absolute 0.1 0.0 - 0.1 x10(3)/mc L [facility] Immature Gran % 0.00 % [facility] Comment: Immature granulocytes(IG's)percentage and absolute count will include metamyelocytes, myelocytes, and promyelocytes. Blood smears from CBCs yielding IG's will be scanned manually for concordance. If this scan disagrees with the automated IG or if promyelocytes are noted, a manual differential will be performed. Immature Gran Absolute 0.00 0.00 - 0.04 x10(3)/mc L [facility] Blood 04/18/2023 3:30 AM EST 04/18/2023 3:55 AM EST Narrative Resulting Agency Comment Spec In Lab Milli Maria MD HEMATOLOGY ORDERABLE S Performing Organization Address City/[facility]/ZIP Co de Phone Number [facility] [place] [address] * (ABNORMAL) Hemogram (04/18/2023 3:30 AM EST) White Blood Cell 4.2 4.0 - 9.5 x10(3)/mc L [facility] Red Blood Cell 2.91(L) 4.58 - 5.54 x10(6)/mc L [facility] Hemoglobin 9.0(L) 13.7 - 16.5 g/dL [facility] Hematocrit 27.1(L) 40.5 - 48.5 % [facility] Mean Cell Volume 93.1 82.9 - 93.1 fL [facility] Mean Cell Hemoglobin 30.9 27.5 - 32.1 pg [facility] Mean Cell Hemoglobin Concentration 33.2 32.0 - 35.7 g/dL [facility] Platelet 321 145 - 357 x10(3)/mc L [facility] RDW Standard Deviation 61.3(H) 36.0 - 45.0 fL [facility] RDW coefficient of variation 18.2(H) 11.4 - 13.8 % [facility] Mean Platelet Volume 9.6 7.6 - 12.9 fL [facility] NRBC% auto 0.0 % [facility] NRBC Absolute 0.000 0.000 - 0.000 x10(3)/mc L [facility] Blood 04/18/2023 3:30 AM EST 04/18/2023 3:55 AM EST Narrative Resulting Agency Comment Spec In Lab Milli Maria MD HEMATOLOGY ORDERABLE S Performing Organization Address City/[facility]/ZIP Co de Phone Number [facility] [place] [address] * Heparin (unfractionated) Level (04/18/2023 3:30 AM EST) UF Heparin 0.36 IU/mL [facility] Comment: Heparin [...] MD HEMATOLOGY ORDERABL ES Performing Organization Address City/[facility] Co de Phone Number [facility] [place] [address] * Phosphorus (04/18/2023 3:30 AM EST) Pathologist [facility] Phosphorus 3.6 2.5 - 4.5 mg/dL [facility] Blood 04/18/2023 3:30 AM EST 04/18/2023 3:54 AM EST Narrative Resulting Agency Comment Spec In Lab Tha Winters MD CHEMISTRY ORDERABLE S Performing Organization Address City/[facility] Co de Phone Number [facility] [place] [address] * Magnesium (04/18/2023 3:30 AM EST) Pathologist [facility] Magnesium 0.83 0.69 - 1.07 mmol/L [facility] Blood 04/18/2023 3:30 AM EST 04/18/2023 3:54 AM EST Narrative Resulting Agency Comment Spec In Lab Tha Winters MD CHEMISTRY ORDERABLE S Performing Organization Address [facility] Co de Phone Number [facility] [place] [address] * (ABNORMAL) Basic Metabolic Panel (non-fasting) (04/18/2023 3:30 AM EST) Glucose 150 65 - 199 mg/dL [facility] Comment:Diabetes: >=200 mg/d L plus symptoms Blood Urea Nitrogen 30(H) 10 - 20 mg/dL [facility] Creatinine 1.58(H) 0.80 - 1.50 mg/dL [facility] Sodium 137 135 - 145 mmol/L [facility] Potassium 4.5 3.5 - 5.0 mmol/L [facility] Comment: Please note: ??Patients with WBC >100,000 may have falsely elevated Potassium levels. ??For accurate Potassium quantification in these patients send serum separator tube (gold top) for subsequent determinations. ??Contact the Clinical Chemistry Laboratory if there are any questions. Chloride 105 98 - 107 mmol/L [facility] Carbon Dioxide 20(L) 22 - 31 mmol/L [facility] Anion Gap 12 5 - 15 mmol/L [facility] Calcium 9.4 8.5 - 10.5 mg/dL [facility] Est Glomerular Filtration Rate 47(L) >=60 mL/min/1. 73 m?? [facility] Comment: This patient's estimated GFR was [...] MD CHEMISTRY ORDERABLE S Performing Organization Address [facility]/ZIP Co de Phone Number [facility] [place] [address] * POCT Glucose (04/17/2023 11:32 PM EST) Glucose, POC 157 65 - 199 mg/dL [facility] Comment: Supplemental ranges: <140 mg/dL before meals <180 mg/dL all other times of the day Blood 04/17/2023 11:3 2 PM EST 04/17/2023 11:32 PM EST Willis Maldonado MD POINT OF CARE TEST O DANIEL Performing Organization Address City/[facility] Co de Phone Number [facility] [place] [address] * Transfuse RBC (04/17/2023 7:45 PM EST) Willis Maldonado MD NURSING TREATMENT OR DERABLES - BLOOD ADMIN * Transfuse RBC (04/17/2023 7:45 PM EST) Willis Maldonado MD NURSING TREATMENT OR DERABLES - BLOOD ADMIN * POCT Glucose (04/17/2023 7:31 PM EST) Glucose, POC 155 65 - 199 mg/dL [facility] Comment: Supplemental ranges: <140 mg/dL before meals <180 mg/dL all other times of the day Blood 04/17/2023 7:31 PM EST 04/17/2023 7:31 PM EST Willis Maldonado MD POINT OF CARE TEST O SHERRONERABART Performing Organization Address City/[facility] Co de Phone Number [facility] [place] [address] * (ABNORMAL) POCT Glucose (04/17/2023 4:10 PM EST) Glucose, POC 235(H) 65 - 199 mg/dL [facility] Comment: Supplemental ranges: <140 mg/dL before meals <180 mg/dL all other times of the day Blood 04/17/2023 4:10 PM EST 04/17/2023 4:10 PM EST Willis Maldonado MD POINT OF CARE TEST O RDERABLES Performing Organization Address City/[facility]/ZIP Co de Phone Number [facility] [place] [address] * ABORH Recheck Status (04/17/2023 2:16 PM EST) ABORH Recheck Order Order Placed [facility] ABORH Type Recheck Completed [facility] Blood 04/17/2023 2:16 PM EST 04/17/2023 2:27 PM EST Narrative Resulting Agency Comment Spec In Lab Tomer Hernandez MD BLOOD BANK LAB ORDE ANKIT Performing Organization Address [facility] Co de Phone Number [facility] [place] [address] * Type and screen ([facility]/CGP/BOBBI) (04/17/2023 2:16 PM EST) Pathologist [facility] ABORH Type A POSITIVE [facility] Patient BB History Not Found [facility] Expires at [id number] on: 04/20/2023 [facility] Ab Screen Interp Negative [facility] Blood 04/17/2023 2:16 PM EST 04/17/2023 2:16 PM EST Narrative [facility] - 04/17/2023 2:16 PM EST This Type and Screen result is only valid at the [facility] Resulting Agency Comment Spec In Lab Willis Maldonado MD BLOOD BANK LAB ORDER CONCHITA Performing Organization Address City/[facility] Co de Phone Number [facility] [place] [address] * POCT Glucose (04/17/2023 10:47 AM EST) Glucose, POC 128 65 - 199 mg/dL [facility] Comment: Supplemental ranges: <140 mg/dL before meals <180 mg/dL all other times of the day Blood 04/17/2023 10:4 7 AM EST 04/17/2023 10:47 AM EST Willis Maldonado MD POINT OF CARE TEST O RDERABART Performing Organization Address [facility] Co de Phone Number [facility] [place] [address] * POCT Glucose (04/17/2023 7:40 AM EST) Glucose, POC 170 65 - 199 mg/dL [facility] Comment: Supplemental ranges: <140 mg/dL before meals <180 mg/dL all other times of the day Blood 04/17/2023 7:40 AM EST 04/17/2023 7:40 AM EST Willis Maldonado MD POINT OF CARE TEST O DANIEL Performing Organization Address [facility] Co de Phone Number [facility] [place] [address] * POCT Glucose (04/17/2023 3:25 AM EST) Glucose, POC 149 65 - 199 mg/dL [facility] Comment: Supplemental ranges: <140 mg/dL before meals <180 mg/dL all other times of the day Blood 04/17/2023 3:25 AM EST 04/17/2023 3:25 AM EST Willis Maldonado MD POINT OF CARE TEST O RDERABART Performing Organization Address [facility] Co de Phone Number [facility] [place] [address] * (ABNORMAL) Differential, Automated (04/17/2023 3:15 AM EST) Neutrophil % 34.3 % [facility] Neutrophil Absolute 1.37(L) 1.70 - 6.10 x10(3)/mc L [facility] Lymph % 28.9 % [facility] Lymphocytes Abs 1.2 0.9 - 3.2 x10(3)/mc L [facility] Monocyte % 20.1 % [facility] Monocyte Abs 0.8 0.3 - 0.9 x10(3)/mc L [facility] Eos % 14.1 % [facility] [place] Eosinophils Abs 0.6(H) 0.0 - 0.4 x10(3)/mc L [facility] Basophil % 2.3 % [facility] Baso Absolute 0.1 0.0 - 0.1 x10(3)/mc L [facility] Immature Gran % 0.30 % [facility] Comment: Immature granulocytes(IG's)percentage and absolute count will include metamyelocytes, myelocytes, and promyelocytes. Blood smears from CBCs yielding IG's will be scanned manually for concordance. If this scan disagrees with the automated IG or if promyelocytes are noted, a manual differential will be performed. Immature Gran Absolute 0.01 0.00 - 0.04 x10(3)/ L [facility] Blood 04/17/2023 3:15 AM EST 04/17/2023 3:34 AM EST Narrative Resulting Agency Comment Spec In Lab Milli Maria MD HEMATOLOGY ORDERABLE S Performing Organization Address City/State/[facility] Co de Phone Number [facility] [place] [address] * (ABNORMAL) Hemogram (04/17/2023 3:15 AM EST) White Blood Cell 4.0 4.0 - 9.5 x10(3)/mc L [facility] Red Blood Cell 2.54(L) 4.58 - 5.54 x10(6)/ L [facility] Hemoglobin 8.0(L) 13.7 - 16.5 g/dL [facility] Hematocrit 23.9(L) 40.5 - 48.5 % [facility] Mean Cell Volume 94.1(H) 82.9 - 93.1 fL [facility] Mean Cell Hemoglobin 31.5 27.5 - 32.1 pg [facility] Mean Cell Hemoglobin Concentration 33.5 32.0 - 35.7 g/dL [facility] Platelet 299 145 - 357 x10(3)/mc L [facility] RDW Standard Deviation 59.7(H) 36.0 - 45.0 fL [facility] RDW coefficient of variation 17.5(H) 11.4 - 13.8 % [facility] Mean Platelet Volume 9.7 7.6 - 12.9 fL [facility] NRBC% auto 0.0 % [facility] NRBC Absolute 0.000 0.000 - 0.000 x10(3)/mc L [facility] Blood 04/17/2023 3:15 AM EST 04/17/2023 3:34 AM EST Narrative Resulting Agency Comment Spec In Lab Milli Maria MD HEMATOLOGY ORDERABLE S [facility] [place] [address] * Heparin (unfractionated) Level (04/17/2023 3:15 AM EST) UF Heparin 0.41 IU/mL [facility] Comment: Heparin (anti-Xa) levels should be [...] MD HEMATOLOGY ORDERABL ES Performing Organization Address City/[facility]/ZIP Co de Phone Number [facility] [place] [address] * Phosphorus (04/17/2023 3:15 AM EST) Phosphorus 4.2 2.5 - 4.5 mg/dL [facility] Blood 04/17/2023 3:15 AM EST 04/17/2023 3:34 AM EST Narrative Resulting Agency Comment Spec In Lab Tha Winters MD CHEMISTRY ORDERABLE S Performing Organization Address City/[facility]/ZIP Co de Phone Number [facility] [place] [address] * Magnesium (04/17/2023 3:15 AM EST) Magnesium 0.85 0.69 - 1.07 mmol/L [facility] Blood 04/17/2023 3:15 AM EST 04/17/2023 3:34 AM EST Narrative Resulting Agency Comment Spec In Lab Tha Winters MD CHEMISTRY ORDERABLE S Performing Organization Address [facility] Co de Phone Number [facility] [place] [address] * (ABNORMAL) Basic Metabolic Panel (non-fasting) (04/17/2023 3:15 AM EST) Glucose 135 65 - 199 mg/dL [facility] Comment:Diabetes: >=200 mg/d L plus symptoms Blood Urea Nitrogen 33(H) 10 - 20 mg/dL [facility] Creatinine 1.75(H) 0.80 - 1.50 mg/dL [facility] Sodium 138 135 - 145 mmol/L [facility] Potassium 4.5 3.5 - 5.0 mmol/L [facility] Comment: Please note: ??Patients with WBC >100,000 may have falsely elevated Potassium levels. ??For accurate Potassium quantification in these patients send serum separator tube (gold top) for subsequent determinations. ??Contact the Clinical Chemistry Laboratory if there are any questions. Chloride 104 98 - 107 mmol/L [facility] Carbon Dioxide 22 22 - 31 mmol/L [facility] Anion Gap 12 5 - 15 mmol/L [facility] Calcium 8.8 8.5 - 10.5 mg/dL [facility] Est Glomerular Filtration Rate 42(L) >=60 mL/min/1. 73 m?? [facility] Comment: This patient's estimated GFR was [...] MD CHEMISTRY ORDERABLE S Performing Organization Address City/[facility] Co de Phone Number [facility] [place] [address] * POCT Glucose (04/17/2023 12:06 AM EST) Glucose, POC 147 65 - 199 mg/dL [facility] Comment: Supplemental ranges: <140 mg/dL before meals <180 mg/dL all other times of the day Blood 04/17/2023 12:0 6 AM EST 04/17/2023 12:06 AM EST Willis Maldonado MD POINT OF CARE TEST O DANIEL Performing Organization Address [facility] Co de Phone Number [facility] [place] [address] * SCAN DOC: LAB (04/17/2023 12:00 AM EST) Narrative 04/17/2023 12:00 AM EST Ordered by an unspecified provider. Scanning Provider MEDIA MGR SCAN EXT O RDR/RSLT * (ABNORMAL) POCT Glucose (04/16/2023 8:15 PM EST) Glucose, POC 216(H) 65 - 199 mg/dL [facility] Comment: Supplemental ranges: <140 mg/dL before meals <180 mg/dL all other times of the day Blood 04/16/2023 8:15 PM EST 04/16/2023 8:15 PM EST Willis Maldonado MD POINT OF CARE TEST O RDERABLES Performing Organization Address City/[facility] Co de Phone Number [facility] [place] [address] * (ABNORMAL) POCT Glucose (04/16/2023 3:26 PM EST) Glucose, POC 226(H) 65 - 199 mg/dL [facility] Comment: Supplemental ranges: <140 mg/dL before meals <180 mg/dL all other times of the day Blood 04/16/2023 3:26 PM EST 04/16/2023 3:26 PM EST Willis Maldonado MD POINT OF CARE TEST O RDERABART Performing Organization Address [facility] Co de Phone Number [facility] [place] [address] * POCT Glucose (04/16/2023 11:21 AM EST) Glucose, POC 156 65 - 199 mg/dL [facility] Comment: Supplemental ranges: <140 mg/dL before meals <180 mg/dL all other times of the day Blood 04/16/2023 11:2 1 AM EST 04/16/2023 11:21 AM EST Willis Maldonado MD POINT OF CARE TEST O RDERABART Performing Organization Address [facility] Co de Phone Number [facility] [place] [address] * POCT Glucose (04/16/2023 7:33 AM EST) Glucose, POC 149 65 - 199 mg/dL [facility] Comment: Supplemental ranges: <140 mg/dL before meals <180 mg/dL all other times of the day Blood 04/16/2023 7:33 AM EST 04/16/2023 7:33 AM EST Willis Maldonado MD POINT OF CARE TEST O RDERABART Performing Organization Address City/[facility] Co de Phone Number [facility] [place] [address] * (ABNORMAL) Differential, Automated (04/16/2023 4:25 AM EST) Neutrophil % 36.3 % [facility] Neutrophil Absolute 1.57(L) 1.70 - 6.10 x10(3)/[facility] Lymph % 30.6 % [facility] Lymphocytes Abs 1.3 0.9 - 3.2 x10(3)/[facility] Monocyte % 20.0 % [facility] Monocyte Abs 0.9 0.3 - 0.9 x10(3)/[facility] Eos % 10.6 % [facility] Eosinophils Abs 0.5(H) 0.0 - 0.4 x10(3)/[facility] Basophil % 2.3 % [facility] Baso Absolute 0.1 0.0 - 0.1 x10(3)/[facility] Immature Gran % 0.20 % [facility] Comment: Immature granulocytes(IG's)percentage and absolute count will include metamyelocytes, myelocytes, and promyelocytes. Blood smears from CBCs yielding IG's will be scanned manually for concordance. If this scan disagrees with the automated IG or if promyelocytes are noted, a manual differential will be performed. Immature Gran Absolute 0.01 0.00 - 0.04 x10(3)/[facility] Blood 04/16/2023 4:25 AM EST 04/16/2023 4:37 AM EST Narrative Resulting Agency Comment Spec In Lab Milli Maria MD HEMATOLOGY ORDERABLE S [facility] [place] [address] * (ABNORMAL) Hemogram (04/16/2023 4:25 AM EST) White Blood Cell 4.3 4.0 - 9.5 x10(3)/[facility] Red Blood Cell 2.62(L) 4.58 - 5.54 x10(6)/[facility] Hemoglobin 8.1(L) 13.7 - 16.5 g/dL [facility] Hematocrit 24.5(L) 40.5 - 48.5 % [facility] Mean Cell Volume 93.5(H) 82.9 - 93.1 fL [facility] Mean Cell Hemoglobin 30.9 27.5 - 32.1 pg [facility] Mean Cell Hemoglobin Concentration 33.1 32.0 - 35.7 g/dL [facility] Platelet 286 145 - 357 x10(3)/mc L [facility] RDW Standard Deviation 59.4(H) 36.0 - 45.0 fL [facility] RDW coefficient of variation 17.5(H) 11.4 - 13.8 % [facility] Mean Platelet Volume 9.6 7.6 - 12.9 fL [facility] NRBC% auto 0.0 % [facility] NRBC Absolute 0.000 0.000 - 0.000 x10(3)/mc L [facility] Blood 04/16/2023 4:25 AM EST 04/16/2023 4:37 AM EST Narrative Resulting Agency Comment Spec In Lab Milli Maria MD HEMATOLOGY ORDERABLE S [facility] [place] [address] * Heparin (unfractionated) Level (04/16/2023 4:25 AM EST) UF Heparin 0.37 IU/mL [facility] Comment: Heparin (anti-Xa) levels [...] MD HEMATOLOGY ORDERABL ES Performing Organization Address [facility] Co de Phone Number [facility] [place] [address] * (ABNORMAL) Phosphorus (04/16/2023 4:25 AM EST) Phosphorus 4.6(H) 2.5 - 4.5 mg/dL [facility] Blood 04/16/2023 4:25 AM EST 04/16/2023 4:37 AM EST Narrative Resulting Agency Comment Spec In Lab Tha Winters MD CHEMISTRY ORDERABLE S Performing Organization Address [facility] de Phone Number [facility] [place] [address] * Magnesium (04/16/2023 4:25 AM EST) Magnesium 0.81 0.69 - 1.07 mmol/L [facility] Blood 04/16/2023 4:25 AM EST 04/16/2023 4:37 AM EST Narrative Resulting Agency Comment Spec In Lab Tha Winters MD CHEMISTRY ORDERABLE S Performing Organization Address [facility] de Phone Number [facility] [place] [address] * (ABNORMAL) Basic Metabolic Panel (non-fasting) (04/16/2023 4:25 AM EST) Glucose 144 65 - 199 mg/dL [facility] Comment:Diabetes: >=200 mg/d L plus symptoms Blood Urea Nitrogen 38(H) 10 - 20 mg/dL [facility] Creatinine 1.79(H) 0.80 - 1.50 mg/dL [facility] Sodium 135 135 - 145 mmol/L [facility] Potassium 4.2 3.5 - 5.0 mmol/L [facility] Comment: Please note: ??Patients with WBC >100,000 may have falsely elevated Potassium levels. ??For accurate Potassium quantification in these patients send serum separator tube (gold top) for subsequent determinations. ??Contact the Clinical Chemistry Laboratory if there are any questions. Chloride 102 98 - 107 mmol/L [facility] Carbon Dioxide 22 22 - 31 mmol/L [facility] Anion Gap 11 5 - 15 mmol/L [facility] Calcium 9.0 8.5 - 10.5 mg/dL [facility] Est Glomerular Filtration Rate 41(L) >=60 mL/min/1. 73 m?? [facility] Comment: This patient's estimated GFR was [...] MD CHEMISTRY ORDERABLE S Performing Organization Address City/[facility] Co de Phone Number [facility] [place] [address] * POCT Glucose (04/16/2023 4:05 AM EST) Glucose, POC 162 65 - 199 mg/dL [facility] Comment: Supplemental ranges: <140 mg/dL before meals <180 mg/dL all other times of the day Blood 04/16/2023 4:05 AM EST 04/16/2023 4:05 AM EST Willis Maldonado MD POINT OF CARE TEST O RDERABLES Performing Organization Address City/[facility]/ZIP Co de Phone Number [facility] [place] [address] * POCT Glucose (04/15/2023 11:50 PM EST) Glucose, POC 133 65 - 199 mg/dL [facility] Comment: Supplemental ranges: <140 mg/dL before meals <180 mg/dL all other times of the day Blood 04/15/2023 11:5 0 PM EST 04/15/2023 11:50 PM EST Willis Maldonado MD POINT OF CARE TEST O DANIEL Performing Organization Address City/[facility] Co de Phone Number [facility] [place] [address] * POCT Glucose (04/15/2023 9:43 PM EST) Glucose, POC 130 65 - 199 mg/dL [facility] Comment: Supplemental ranges: <140 mg/dL before meals <180 mg/dL all other times of the day Blood 04/15/2023 9:43 PM EST 04/15/2023 9:43 PM EST Willis Maldonado MD POINT OF CARE TEST O DANIEL Performing Organization Address [facility] Co de Phone Number [facility] [place] [address] * (ABNORMAL) POCT Glucose (04/15/2023 7:37 PM EST) Glucose, POC 249(H) 65 - 199 mg/dL [facility] Comment: Supplemental ranges: <140 mg/dL before meals <180 mg/dL all other times of the day Blood 04/15/2023 7:37 PM EST 04/15/2023 7:37 PM EST Willis Maldonado MD POINT OF CARE TEST O DANIEL Performing Organization Address [facility] de Phone Number [facility] [place] [address] * Heparin (unfractionated) Level (04/15/2023 5:35 PM EST) UF Heparin 0.36 IU/mL [facility] Comment: Heparin (anti-Xa) levels should be [...] MD HEMATOLOGY ORDERABL ES Performing Organization Address [facility] Co de Phone Number [facility] [place] [address] * POCT Glucose (04/15/2023 4:45 PM EST) Glucose, POC 186 65 - 199 mg/dL [facility] Comment: Supplemental ranges: <140 mg/dL before meals <180 mg/dL all other times of the day Blood 04/15/2023 4:45 PM EST 04/15/2023 4:45 PM EST Willis Maldonado MD POINT OF CARE TEST O RDERABLES Performing Organization Address [facility] Co de Phone Number [facility] [place] [address] * (ABNORMAL) POCT Glucose (04/15/2023 12:10 PM EST) Glucose, POC 205(H) 65 - 199 mg/dL [facility] Comment: Supplemental ranges: <140 mg/dL before meals <180 mg/dL all other times of the day Blood 04/15/2023 12:1 0 PM EST 04/15/2023 12:10 PM EST Willis Maldonado MD POINT OF CARE TEST O RDERABART Performing Organization Address [facility] Co de Phone Number [facility] [place] [address] * Heparin (unfractionated) Level (04/15/2023 12:00 PM EST) Pathologist [facility] UF Heparin 0.36 IU/mL [facility] Comment: Heparin (anti-Xa) levels should be [...] MD HEMATOLOGY ORDERABL ES Performing Organization Address City/[facility]/ZIP Co de Phone Number [facility] [place] [address] * POCT Glucose (04/15/2023 7:45 AM EST) [facility] Glucose, POC 163 65 - 199 mg/dL [facility] Comment: Supplemental ranges: <140 mg/dL before meals <180 mg/dL all other times of the day Blood 04/15/2023 7:45 AM EST 04/15/2023 7:45 AM EST Willis Maldonado MD POINT OF CARE TEST O RDERABLES Performing Organization Address City/[facility]/ZIP Co de Phone Number [facility] [place] [address] * Differential, Automated (04/15/2023 5:11 AM EST) Pathologist [facility] Neutrophil % 42.7 % [facility] Neutrophil Absolute 1.85 1.70 - 6.10 x10(3)/mcL [facility] Lymph % 26.6 % [facility] Lymphocytes Abs 1.2 0.9 - 3.2 x10(3)/[facility] Monocyte % 21.0 % [facility] Monocyte Abs 0.9 0.3 - 0.9 x10(3)/[facility] Eos % 7.4 % [facility] Eosinophils Abs 0.3 0.0 - 0.4 x10(3)/[facility] Basophil % 2.1 % [facility] Baso Absolute 0.1 0.0 - 0.1 x10(3)/[facility] Immature Gran % 0.20 % [facility] Comment: Immature granulocytes(IG's)percentage and absolute count will include metamyelocytes, myelocytes, and promyelocytes. Blood smears from CBCs yielding IG's will be scanned manually for concordance. If this scan disagrees with the automated IG or if promyelocytes are noted, a manual differential will be performed. Immature Gran Absolute 0.01 0.00 - 0.04 x10(3)/[facility] Blood 04/15/2023 5:11 AM EST 04/15/2023 5:20 AM EST Narrative Resulting Agency Comment Spec In Lab Milli Maria MD HEMATOLOGY ORDERABLE S [facility] [place] [address] * (ABNORMAL) Hemogram (04/15/2023 5:11 AM EST) White Blood Cell 4.3 4.0 - 9.5 x10(3)/mc L [facility] Red Blood Cell 2.63(L) 4.58 - 5.54 x10(6)/mc L [facility] Hemoglobin 8.3(L) 13.7 - 16.5 g/dL [facility] Hematocrit 25.5(L) 40.5 - 48.5 % [facility] Mean Cell Volume 97.0(H) 82.9 - 93.1 fL [facility] Mean Cell Hemoglobin 31.6 27.5 - 32.1 pg [facility] Mean Cell Hemoglobin Concentration 32.5 32.0 - 35.7 g/dL [facility] Platelet 305 145 - 357 x10(3)/mc L [facility] RDW Standard Deviation 64.0(H) 36.0 - 45.0 fL [facility] RDW coefficient of variation 18.0(H) 11.4 - 13.8 % [facility] Mean Platelet Volume 9.9 7.6 - 12.9 fL [facility] NRBC% auto 0.0 % [facility] NRBC Absolute 0.000 0.000 - 0.000 x10(3)/mc L [facility] Blood 04/15/2023 5:11 AM EST 04/15/2023 5:20 AM EST Narrative Resulting Agency Comment Spec In Lab Milli Maria MD HEMATOLOGY ORDERABLE S Performing Organization Address [facility] [place] [address] * Heparin (unfractionated) Level (04/15/2023 5:11 AM EST) UF Heparin 0.26 IU/mL [facility] Comment: Heparin (anti-Xa) levels should be [...] MD HEMATOLOGY ORDERABL ES Performing Organization Address [facility] Co de Phone Number [facility] [place] [address] * (ABNORMAL) Phosphorus (04/15/2023 5:11 AM EST) Phosphorus 4.7(H) 2.5 - 4.5 mg/dL [facility] Blood 04/15/2023 5:11 AM EST 04/15/2023 5:20 AM EST Narrative Resulting Agency Comment Spec In Lab Tha Winters MD CHEMISTRY ORDERABLE S Performing Organization Address [facility] Co de Phone Number [facility] [place] [address] * Magnesium (04/15/2023 5:11 AM EST) Magnesium 0.88 0.69 - 1.07 mmol/L [facility] Blood 04/15/2023 5:11 AM EST 04/15/2023 5:20 AM EST Narrative Resulting Agency Comment Spec In Lab Tha Winters MD CHEMISTRY ORDERABLE S Performing Organization Address [facility] de Phone Number [facility] [place] [address] * (ABNORMAL) Basic Metabolic Panel (non-fasting) (04/15/2023 5:11 AM EST) Glucose 131 65 - 199 mg/dL [facility] Comment:Diabetes: >=200 mg/d L plus symptoms Blood Urea Nitrogen 38(H) 10 - 20 mg/dL [facility] Creatinine 1.76(H) 0.80 - 1.50 mg/dL [facility] Sodium 137 135 - 145 mmol/L [facility] Potassium 4.2 3.5 - 5.0 mmol/L [facility] Comment: Please note: ??Patients with WBC >100,000 may have falsely elevated Potassium levels. ??For accurate Potassium quantification in these patients send serum separator tube (gold top) for subsequent determinations. ??Contact the Clinical Chemistry Laboratory if there are any questions. Chloride 104 98 - 107 mmol/L [facility] Carbon Dioxide 23 22 - 31 mmol/L [facility] Anion Gap 10 5 - 15 mmol/L [facility] Calcium 8.9 8.5 - 10.5 mg/dL [facility] Est Glomerular Filtration Rate 42(L) >=60 mL/min/1. 73 m?? [facility] Comment: This patient's [...] MD CHEMISTRY ORDERABLE S Performing Organization Address City/[facility]/ZIP Co de Phone Number [facility] [place] [address] * POCT Glucose (04/15/2023 3:18 AM EST) Glucose, POC 149 65 - 199 mg/dL [facility] Comment: Supplemental ranges: <140 mg/dL before meals <180 mg/dL all other times of the day Blood 04/15/2023 3:18 AM EST 04/15/2023 3:18 AM EST Willis Maldonado MD POINT OF CARE TEST Henry SANCHEZ [facility] [place] [address] * POCT Glucose (04/15/2023 12:34 AM EST) Glucose, POC 179 65 - 199 mg/dL [facility] Comment: Supplemental ranges: <140 mg/dL before meals <180 mg/dL all other times of the day Blood 04/15/2023 12:3 4 AM EST 04/15/2023 12:34 AM EST Willis Maldonado MD POINT OF CARE TEST O RDERABLES Performing Organization Address [facility] de Phone Number [facility] [address] * POCT Glucose (04/14/2023 7:13 PM EST) Glucose, POC 153 65 - 199 mg/dL [facility] Comment: Supplemental ranges: <140 mg/dL before meals <180 mg/dL all other times of the day Blood 04/14/2023 7:13 PM EST 04/14/2023 7:13 PM EST Willis Maldonado MD POINT OF CARE TEST O RDERABART Performing Organization Address [facility] de Phone Number [facility] [place] [address] * POCT Glucose (04/14/2023 4:42 PM EST) Glucose, POC 146 65 - 199 mg/dL [facility] Comment: Supplemental ranges: <140 mg/dL before meals <180 mg/dL all other times of the day Blood 04/14/2023 4:42 PM EST 04/14/2023 4:42 PM EST Willis Maldonado MD POINT OF CARE TEST O RDERABART Performing Organization Address [facility] de Phone Number [facility] [place] [address] * CARDIAC CATHETERIZATION (04/14/2023 4:00 PM EST) Anatomical Region Laterality Modality Other Narrative 04/14/2023 4:27 PM EST ?[facility] ? Cardiac Catheterization/Intervention Report ? Patient Name: Huber Mosher. ? Procedure Date: 04/14/2023 ? A #: [id number] ? Primary Physician: Citlalli Esposito I ? Case #: [id number] ? File Name: [id number] ? Catheterization Order Number: [id number] ? [facility] ? Final Report [place], [place] ? Patient Name: ? Huber C. Mellekas ?ID#: ?[id number] ? : ?1955 ? Procedure Date: ? April 14, 2023 ? Case #: ? [id number] ? Room: ? 5 ? Case Physician: [...] was designated as ASA Class III. The [facility] clinical ?frailty scale is 5: Mildly Frail. ? Indications for Diagnostic Cath: ?The priority of the diagnostic procedure was Urgent. 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 [...] distal LM and ostial LAD stenosis ?* CLINICAL STAFF RN of the ostial LCx, this is a smaller vessel ?* Recommend heart team consult to consider PCI vs CABG. He may not be a ?good candidate for bypass given co-morbidities and targets. In this case ?would plan for staged PCI of LM-LAD with consideration of CLINICAL STAFF RN PCI of LCx. ?He had CKD and [...] angiography and left ?heart catheterization. ? Citlalli Goldbergry, M.D. ? Electronically Signed by: Citlalli Goldbergry, M.D. ? Report Finalized: 04/14/2023 ??16:23 ? Procedure Note Citlalli Esposito MD - 04/14/2023 [facility] Cardiac Catheterization/Intervention Report Patient Name: Huber Mosher Procedure Date: 04/14/2023 A #: [id number] Primary Physician: Citlalli Esposito I Case #: [id number] File Name: [id number] Catheterization Order Number: [id number] [facility] FinalReport [place], [place] Patient Name: Huber Mosher ID#:[id number] :1955 Procedure Date: April 14, 2023 Case [...] was designated as ASA Class III. [facility]: Mildly Frail. Indications for Diagnostic Cath: The priority of the diagnostic procedure was Urgent. 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 [...] units of heparin were administered. A total [id number] of Omnipaque were opened, 57cc of Omnipaque were administered [id number] of Omnipaque were wasted. Radiation: Fluoro time [...] distal LM and ostial LAD stenosis * CLINICAL STAFF RN of the ostial LCx, this is a smaller vessel * Recommend heart team consult to consider PCI vs CABG. He may notbe a good candidate for bypass given co-morbidities and targets. In thiscase would plan for staged PCI of LM-LAD with consideration of CLINICAL STAFF RN PCI ofLCx. He had CKD and Cr [...] DOPP (04/14/2023 1:14 PM EST) EF 46 [employer] Anatomical Region Laterality Modality Cardiac Other 04/14/2023 12:1 0 PM EST Narrative 04/14/2023 1:50 PM EST [address] [place] [address] ? Echocardiogram Report Name: HUBER MOSHER ? Study Date: 04/14/2023 12:10 PMBP: 84/50 mmHg ? Patient Location: L3WB^363^A : 1955 ? Height: 179 cm ? Account: [id number] Age: 67 yrs ? Weight: 86 kg Gender: Male ?BSA: 2.1 m2 Ordering Physician: THA WINTERS Referring Physician: ROMAN BARAJAS Performed By: FELIX Cerna Reason For Study: NSTEMI Exam Location: [facility]. Interpretation Summary Left ventricle is mildly dilated [...] regional wall motion abnormality. Procedure Limited - 35069. Image enhancement Definity was used for left [...] Procedure Note Sameer Rudolph MD - 04/14/[address] [place] [id number] Echocardiogram Report Name: HUBER MOSHER Study Date: 2:10 PMBP: 84/50 mmHg Patient Location:L3WB^363^A : 1955 Height: 179 cm Account: [id number] Age: 67 yrs Weight: 86 kg Gender: Male BSA: 2.1 m2 Ordering Physician: THA WINTERS Referring Physician: ROMAN BARAJAS Performed By: FELIX Cerna Reason For Study: NSTEMI Exam Location: [facility]. Interpretation Summary Left ventricle is mildly dilated [...] of regional wall motionabnormality. Procedure Limited - 29192. Image enhancement Definity was used for leftventricular [...] POCT Glucose (04/14/2023 11:41 AM EST) Pathologist [facility] Glucose, POC 143 65 - 199 mg/dL [facility] Comment: Supplemental ranges: <140 mg/dL before meals <180 mg/dL all other times of the day Blood 04/14/2023 11:4 1 AM EST 04/14/2023 11:41 AM EST Willis Maldonado MD POINT OF CARE TEST O RDERABLES [facility] [place] [address] * Heparin (unfractionated) Level (04/14/2023 8:48 AM EST) UF Heparin 0.35 IU/mL [facility] Comment: Heparin (anti-Xa) levels [...] MD HEMATOLOGY ORDERABL ES Performing Organization Address [facility] Co de Phone Number [facility] [place] [address] * POCT Glucose (04/14/2023 8:07 AM EST) Glucose, POC 181 65 - 199 mg/dL [facility] Comment: Supplemental ranges: <140 mg/dL before meals <180 mg/dL all other times of the day Blood 04/14/2023 8:07 AM EST 04/14/2023 8:07 AM EST Tha Winters MD POINT OF CARE TEST ORDERABLES Performing Organization Address [facility] Phone Number [facility] [place] [address] * POCT Glucose (04/14/2023 3:56 AM EST) Glucose, POC 148 65 - 199 mg/dL [facility] Comment: Supplemental ranges: <140 mg/dL before meals <180 mg/dL all other times of the day Blood 04/14/2023 3:56 AM EST 04/14/2023 3:56 AM EST Narrative Authorizing Provider Result Jose Winters MD POINT OF CARE TEST ORDERABLES Performing Organization Address [facility] de Phone Number [facility] [place] [address] * Differential, Automated (04/14/2023 12:40 AM EST) Neutrophil % 48.3 % [facility] Neutrophil Absolute 2.42 1.70 - 6.10 x10(3)/[facility] Lymph % 26.5 % [facility] Lymphocytes Abs 1.3 0.9 - 3.2 x10(3)/[facility] Monocyte % 16.8 % [facility] Monocyte Abs 0.8 0.3 - 0.9 x10(3)/[facility] Eos % 6.0 % [facility] Eosinophils Abs 0.3 0.0 - 0.4 x10(3)/[facility] Basophil % 2.2 % [facility] Baso Absolute 0.1 0.0 - 0.1 x10(3)/[facility] Immature Gran % 0.20 % [facility] Comment: Immature granulocytes(IG's)percentage and absolute count will include metamyelocytes, myelocytes, and promyelocytes. Blood smears from CBCs yielding IG's will be scanned manually for concordance. If this scan disagrees with the automated IG or if promyelocytes are noted, a manual differential will be performed. Immature Gran Absolute 0.01 0.00 - 0.04 x10(3)/[facility] Blood 04/14/2023 12:4 0 AM EST 04/14/2023 12:53 AM EST Narrative Resulting Agency Comment Spec In Lab Milli Maria MD HEMATOLOGY ORDERABLE S [facility] [place] [address] * (ABNORMAL) Hemogram (04/14/2023 12:40 AM EST) White Blood Cell 5.0 4.0 - 9.5 x10(3)/mc L [facility] Red Blood Cell 2.68(L) 4.58 - 5.54 x10(6)/mc L [facility] Hemoglobin 8.6(L) 13.7 - 16.5 g/dL [facility] Hematocrit 25.3(L) 40.5 - 48.5 % [facility] Mean Cell Volume 94.4(H) 82.9 - 93.1 fL [facility] Mean Cell Hemoglobin 32.1 27.5 - 32.1 pg [facility] Mean Cell Hemoglobin Concentration 34.0 32.0 - 35.7 g/dL [facility] Platelet 314 145 - 357 x10(3)/mc L [facility] RDW Standard Deviation 60.5(H) 36.0 - 45.0 fL [facility] RDW coefficient of variation 17.8(H) 11.4 - 13.8 % [facility] Mean Platelet Volume 9.7 7.6 - 12.9 fL [facility] NRBC% auto 0.0 % [facility] NRBC Absolute 0.000 0.000 - 0.000 x10(3)/mc L [facility] Blood 04/14/2023 12:4 0 AM EST 04/14/2023 12:53 AM EST Narrative Resulting Agency Comment Spec In Lab Milli Maria MD HEMATOLOGY ORDERABLE S Performing Organization Address City/[facility] [place] [address] * Heparin (unfractionated) Level (04/14/2023 12:40 AM EST) UF Heparin 0.32 IU/mL [facility] Comment: Heparin (anti-Xa) levels should be [...] MD HEMATOLOGY ORDERABL ES Performing Organization Address [facility] Co de Phone Number [facility] [place] [address] * Phosphorus (04/14/2023 12:40 AM EST) Phosphorus 3.8 2.5 - 4.5 mg/dL [facility] Blood 04/14/2023 12:4 0 AM EST 04/14/2023 12:53 AM EST Narrative Resulting Agency Comment Spec In Lab Tha Winters MD CHEMISTRY ORDERABLE S Performing Organization Address City/[facility]/ZIP Co de Phone Number [facility] [place] [address] * Magnesium (04/14/2023 12:40 AM EST) Magnesium 0.89 0.69 - 1.07 mmol/L [facility] Blood 04/14/2023 12:4 0 AM EST 04/14/2023 12:53 AM EST Narrative Resulting Agency Comment Spec In Lab Tha Winters MD CHEMISTRY ORDERABLE S Performing Organization Address [facility] de Phone Number [facility] [place] [address] * (ABNORMAL) Basic Metabolic Panel (non-fasting) (04/14/2023 12:40 AM EST) Glucose 167 65 - 199 mg/dL [facility] Comment:Diabetes: >=200 mg/d L plus symptoms Blood Urea Nitrogen 41(H) 10 - 20 mg/dL [facility] Creatinine 1.71(H) 0.80 - 1.50 mg/dL [facility] Sodium 134(L) 135 - 145 mmol/L [facility] Potassium 4.3 3.5 - 5.0 mmol/L [facility] Comment: Please note: ??Patients with WBC >100,000 may have falsely elevated Potassium levels. ??For accurate Potassium quantification in these patients send serum separator tube (gold top) for subsequent determinations. ??Contact the Clinical Chemistry Laboratory if there are any questions. Chloride 103 98 - 107 mmol/L [facility] Carbon Dioxide 21(L) 22 - 31 mmol/L [facility] Anion Gap 10 5 - 15 mmol/L [facility] Calcium 8.6 8.5 - 10.5 mg/dL [facility] Est Glomerular Filtration Rate 43(L) >=60 mL/min/1. 73 m?? [facility] Comment: This patient's [...] Lab Tha Winters MD CHEMISTRY ORDERABLE S [facility] [place] [address] * Lipid Panel (Reflex Direct LDL) (04/14/2023 12:40 AM EST) [facility] Cholesterol, Total 101 mg/dL [facility] Comment: Lower Risk: <200 mg/dL Average Risk: 200-239 mg/dL Higher Risk: >le=832 mg/dL Triglyceride 144 mg/dL [facility] Comment: Average Risk/Lower Risk: <150 mg/dL Borderline High Risk: 150-199 mg/dL High Risk: 200-499 mg/dL Very High Risk: >rj=095 mg/dL HDL Cholesterol 34 mg/dL [facility] Comment: Males: ?? Higher Risk: <40 mg/dL Females: ?? Higher Risk: <50 mg/dL LDL Cholesterol 38 mg/dL [facility] Comment: Lowest Risk: <100 mg/dL Lower Risk: 100-129 mg/dL Borderline High Risk: 130-159 mg/dL High Risk: 160-189 mg/dL Very High Risk: >hm=379 mg/dL Cholesterol/HDL Ratio 3.0 ratio [facility] Lipid Interpretation See Note [facility] Comment: Lipid management should be guided by a patient? s ASCVD risk, goals and preferences. ACC/AHA Guidelines recommend high intensity statin if clinical ASCVD or LDL greater than or equal to 190 mg/dL. http://[employer]traInvest[employer] [email or web address].com/IOC-RWF-Jrlpbxtlh Adults aged 40-75 with LDL 70-189 mg/dL should have their 10 year ASCVD risk estimated with the ACC/AHA ASCVD risk civil estimator http://tools.acc.org/SMAED-Uadz-Tlthzfzkg/ Statin should be discussed if risk greater [...] Lab Tha Winters MD CHEMISTRY ORDERABLE S [facility] [place] [address] * (ABNORMAL) Troponin (04/14/2023 12:40 AM EST) Troponin-T, High Sensitivity 497(H) <=22 ng/L [facility] Comment: This patient's troponin T concentration [...] troponin value can be found in the [facility] Test Catalog Troponin - [facility] Test Catalog Reference: Fourth [place] Definition of Myocardial Infarction. Journal of the [place] [employer] 2018;72:7308-8812 Blood 04/14/2023 12:4 0 AM EST 04/14/2023 12:53 AM EST Narrative Resulting Agency Comment Spec In Lab Tha Winters MD CHEMISTRY ORDERABLE S [facility] [place] [address] * POCT Glucose (04/14/2023 12:27 AM EST) Pathologist [facility] Glucose, POC 184 65 - 199 mg/dL [facility] Comment: Supplemental ranges: <140 mg/dL before meals <180 mg/dL all other times of the day Blood 04/14/2023 12:2 7 AM EST 04/14/2023 12:27 AM EST Tha Winters MD POINT OF CARE TEST ORDERABLES Performing Organization Address City/[facility] Co de Phone Number [facility] [place] [address] * EKG 12 Lead (04/13/2023 10:01 PM EST) Ventricular rate 80 BPM MUSE SYSTEM Atrial Rate 80 BPM MUSE SYSTEM P-R Interval 126 ms MUSE SYSTEM QRS Duration 96 ms MUSE SYSTEM Q-T Interval 368 ms MUSE SYSTEM QTC Calculated (Bezet) 424 ms MUSE SYSTEM Calculated P [place] 43 degrees MUSE SYSTEM Calculated R [place] 50 degrees MUSE SYSTEM Calculated T [place] -143 degrees MUSE SYSTEM INTERPRETATION Normal sinus rhythm Nonspecific ST and T wave abnormality Inferolateral leads Abnormal ECG When compared with ECG of 10-NOV-2022 08:43, No significant change was found Confirmed by fellow Shana Wright ([id number]) on 04/14/2023 2:49:42 PM Confirmed by MD RENU, WILLIS ([id number]) on 04/16/2023 4:34:51 PM MUSE SYSTEM 04/13/2023 10:0 1 PM EST 04/16/2023 4:34 PM EST Tha Winters MD ECG ORDERABLES MUSE SYSTEM * Differential, Automated (04/13/2023 9:07 PM EST) Neutrophil % 56.7 % [facility] Neutrophil Absolute 3.13 1.70 - 6.10 x10(3)/[facility] Lymph % 23.2 % [facility] Lymphocytes Abs 1.3 0.9 - 3.2 x10(3)/[facility] Monocyte % 13.6 % [facility] Monocyte Abs 0.8 0.3 - 0.9 x10(3)/[facility] Eos % 4.3 % [facility] Eosinophils Abs 0.2 0.0 - 0.4 x10(3)/[facility] Basophil % 1.8 % [facility] Baso Absolute 0.1 0.0 - 0.1 x10(3)/[facility] Immature Gran % 0.40 % [facility] Comment: Immature granulocytes(IG's)percentage and absolute count will include metamyelocytes, myelocytes, and promyelocytes. Blood smears from CBCs yielding IG's will be scanned manually for concordance. If this scan disagrees with the automated IG or if promyelocytes are noted, a manual differential will be performed. Immature Gran Absolute 0.02 0.00 - 0.04 x10(3)/[facility] Blood 04/13/2023 9:07 PM EST 04/13/2023 9:55 PM EST Narrative Resulting Agency Comment Spec In Lab Milli Maria MD HEMATOLOGY ORDERABLE S [facility] [place] [address] * (ABNORMAL) Hemogram (04/13/2023 9:07 PM EST) White Blood Cell 5.5 4.0 - 9.5 x10(3)/mc L [facility] Red Blood Cell 2.85(L) 4.58 - 5.54 x10(6)/mc L [facility] Hemoglobin 9.0(L) 13.7 - 16.5 g/dL [facility] Hematocrit 27.4(L) 40.5 - 48.5 % [facility] Mean Cell Volume 96.1(H) 82.9 - 93.1 fL [facility] Mean Cell Hemoglobin 31.6 27.5 - 32.1 pg [facility] Mean Cell Hemoglobin Concentration 32.8 32.0 - 35.7 g/dL [facility] Platelet 318 145 - 357 x10(3)/mc L [facility] RDW Standard Deviation 63.0(H) 36.0 - 45.0 fL [facility] RDW coefficient of variation 17.9(H) 11.4 - 13.8 % [facility] Mean Platelet Volume 9.6 7.6 - 12.9 fL [facility] NRBC% auto 0.0 % [facility] NRBC Absolute 0.000 0.000 - 0.000 x10(3)/mc L [facility] Blood 04/13/2023 9:07 PM EST 04/13/2023 9:55 PM EST Narrative Resulting Agency Comment Spec In Lab Milli Maria MD HEMATOLOGY ORDERABLE S Performing Organization Address City/[facility]/ZIP Co de Phone Number [facility] [place] [address] * Phosphorus (04/13/2023 9:07 PM EST) Phosphorus 3.7 2.5 - 4.5 mg/dL [facility] Blood 04/13/2023 9:07 PM EST 04/13/2023 9:24 PM EST Narrative Resulting Agency Comment Spec In Lab Tha Winters MD CHEMISTRY ORDERABLE S [facility] [place] [address] * Calcium (04/13/2023 9:07 PM EST) Calcium 8.6 8.5 - 10.5 mg/dL [facility] Blood 04/13/2023 9:07 PM EST 04/13/2023 9:24 PM EST Narrative Resulting Agency Comment Spec In Lab Tha Winters MD CHEMISTRY ORDERABLE S Performing Organization Address [facility] Co de Phone Number [facility] [place] [address] * Magnesium (04/13/2023 9:07 PM EST) Magnesium 0.86 0.69 - 1.07 mmol/L [facility] Blood 04/13/2023 9:07 PM EST 04/13/2023 9:24 PM EST Narrative Resulting Agency Comment Spec In Lab Tha Winters MD CHEMISTRY ORDERABLE S Performing Organization Address [facility] de Phone Number [facility] [place] [address] * (ABNORMAL) Basic Metabolic Panel (non-fasting) (04/13/2023 9:07 PM EST) Glucose 210(H) 65 - 199 mg/dL [facility] Comment:Diabetes: >=200 mg/d L plus symptoms Blood Urea Nitrogen 42(H) 10 - 20 mg/dL [facility] Creatinine 1.78(H) 0.80 - 1.50 mg/dL [facility] Sodium 135 135 - 145 mmol/L [facility] Potassium 4.4 3.5 - 5.0 mmol/L [facility] Comment: Please note: ??Patients with WBC >100,000 may have falsely elevated Potassium levels. ??For accurate Potassium quantification in these patients send serum separator tube (gold top) for subsequent determinations. ??Contact the Clinical Chemistry Laboratory if there are any questions. Chloride 102 98 - 107 mmol/L [facility] Carbon Dioxide 21(L) 22 - 31 mmol/L [facility] Anion Gap 12 5 - 15 mmol/L [facility] Calcium 8.6 8.5 - 10.5 mg/dL [facility] Est Glomerular Filtration Rate 41(L) >=60 mL/min/1. 73 m?? [facility] Comment: This patient's [...] MD CHEMISTRY ORDERABLE S Performing Organization Address [facility] de Phone Number [facility] [place] [address] * (ABNORMAL) Hemoglobin A1c (04/13/2023 9:07 PM EST) Hemoglobin A1c 8.0(H) 4.3 - 5.6 % [facility] Comment: Reference Range: 4.3 - 5.6% [...] Mellitus, Diabetes Care 2013; 36: Suppl. 1, K54-22 Estimated Average Glucose 182 mg/dL [facility] Blood 04/13/2023 9:07 PM EST 04/13/2023 9:25 PM EST Narrative Resulting Agency Comment Spec In Lab Tha Winters MD CHEMISTRY ORDERABLE S Performing Organization Address [facility] Co de Phone Number [facility] [place] [address] * (ABNORMAL) Hepatic Function Panel (04/13/2023 9:07 PM EST) Protein, Total 5.8(L) 6.1 - 8.0 g/dL [facility] Albumin 3.4 3.2 - 5.2 g/dL [facility] Aspartate Aminotransferase 27 0 - 39 unit/L [facility] Alanine Aminotransferase 10 0 - 55 unit/L [facility] Alkaline Phosphatase 53 40 - 130 unit/L [facility] Bilirubin, Total 0.3 0.2 - 1.3 mg/dL [facility] Bilirubin, Direct 0.1 0.0 - 0.3 mg/dL [facility] Blood 04/13/2023 9:07 PM EST 04/13/2023 9:24 PM EST Narrative Resulting Agency Comment Spec In Lab Tha Winters MD CHEMISTRY ORDERABLE S [facility] [place] [address] * (ABNORMAL) Troponin (04/13/2023 9:07 PM EST) Troponin-T, High Sensitivity 540(H) <=22 ng/L [facility] Comment: This patient's troponin T concentration [...] troponin value can be found in the [facility] Test Catalog Troponin - [facility] Test Catalog Reference: Fourth [place] Definition of Myocardial Infarction. Journal of the [place] [employer] 2018;72:8635-3566 Blood 04/13/2023 9:07 PM EST 04/13/2023 9:24 PM EST Narrative Resulting Agency Comment Spec In Lab Tha Winters MD CHEMISTRY ORDERABLE S [facility] [place] [address] * (ABNORMAL) pro-Brain Natriuretic Peptide (04/13/2023 9:07 PM EST) NT-proBNP 6,510(H) <=124 pg/mL [facility] Blood 04/13/2023 9:07 PM EST 04/13/2023 9:24 PM EST Narrative Resulting Agency Comment Spec In Lab Tha Winters MD CHEMISTRY ORDERABLE S Performing Organization Address City/[facility]/ZIP Co de Phone Number [facility] [place] [address] * TSH (04/13/2023 9:07 PM EST) Thyroid Stimulating Hormone 2.97 0.27 - 4.20 mcIU/mL [facility] Comment: Reference Interval (mcIU/mL): Females: ??First Trimester: 0.23-3.88 ??Second Trimester: 0.22-3.90 ??Third Trimester: 0.44-4.66 Blood 04/13/2023 9:07 PM EST 04/13/2023 9:24 PM EST Narrative Resulting Agency Comment Spec In Lab Authorizing Provider Result Jose Winters MD CHEMISTRY ORDERABLE S [facility] [place] [address] * POCT Glucose (04/13/2023 7:14 PM EST) Glucose, POC 146 65 - 199 mg/dL [facility] Comment: Supplemental ranges: <140 mg/dL before meals <180 mg/dL all other times of the day Blood 04/13/2023 7:14 PM EST 04/13/2023 7:14 PM EST Tha Winters MD POINT OF CARE TEST ORDERABLES [facility] [place] [address] documented in this encounter Visit Diagnoses Not [...] Given 04/16/2023 8:05 AM EST 81 mg aspirin chewable tablet PRN, Starting on Mon04/18/23 at 0836, Until Mon04/18/23 at 1417, Intra-Operative (Intra-Procedure), Routine Given 04/18/2023 8:36 AM EST 81 mg atorvastatin (Lipitor) tablet [...] Given 04/19/2023 8:42 AM EST 75 mg clopidogreL (Plavix) tablet PRN, Starting on Mon04/18/23 at 0836, Until Mon04/18/23 at 1417, Intra-Operative (Intra-Procedure), Routine Given 04/18/2023 8:36 AM EST 75 mg dextrose 10% infusion [...] (50 mcg/mL) multi-dose injection PRN, Starting on Mon04/18/23 at 0905, Until Mon04/18/23 at 1417, Intra-Operative (Intra-Procedure), Routine Given 04/18/2023 11:35 AM EST 25 mcg Given 04/18/2023 10:25 AM EST 25 mcg Given 04/18/2023 9:05 AM EST 25 mcg glucagon (Glucagen) (1 mg/mL) [...] (porcine) (1,000 units/mL) injection PRN, Starting on Mon04/18/23 at 0924, Until Mon04/18/23 at 1417, Intra-Operative (Intra-Procedure), Routine Given 04/18/2023 11:03 AM EST 1,000 Units Given 04/18/2023 10:13 AM EST 2,000 Units Given 04/18/2023 9:51 AM EST 4,000 Units HYDROmorphone (Dilaudid) tablet 1 [...] (Omnipaque) (350 mg/mL) solution PRN, Starting on Mon04/18/23 at 1135, Until Mon04/18/23 at 1417, Intra-Operative (Intra-Procedure), Routine Given 04/18/2023 11:35 AM EST 105 mLs levothyroxine (Synthroid) tablet 150 mcg 150 [...] (1 mg/mL) multi-dose injection PRN, Starting on Mon04/18/23 at 0905, Until Mon04/18/23 at 1417, Intra-Operative (Intra-Procedure), Routine Given 04/18/2023 10:25 AM EST 1 mg Given 04/18/2023 9:05 AM EST 1 mg polyethylene glycoL (Miralax) packet 17 g 17 [...] EST 5 mLs sodium chloride 0.9% infusion CONTINUOUS PRN, Starting on Mon04/18/23 at 1135, Until Mon04/18/23 at 1417, Intra-Operative (Intra-Procedure) New Bag 04/18/2023 11:35 AM EST 700 mLs tamsulosin (Flomax) capsule 0.4 mg 0.4 [...] Reason: See comment - Comment: 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, 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)1417 (MAY Unhold - Provider: Admin [...] Torres RN) 0842 (Given - Provider: Ashleigh Babcock, SHIVAM) [...] comment - Comment: Given, post cath, see MAR)1417 (MAY Unhold - [...] Reason: See comment - 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: 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, 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)1417 (MAY Unhold - Provider: Admin Adt) 0842 (Given - Provider: Ashleigh Babcock, SHIVAM) insulin glargine-ygfn (Semglee) (100 unit/mL) subcutaneous injection [...] Admin Adt) 0843 (Given - Provider: Ashleigh Babcock, SHIVAM) insulin lispro (HumaLOG;Admelog) (100 unit/mL) subcutaneous injection [...] - Reason: See comment - 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: 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)1417 (MAY Unhold - Provider: Admin Adt)1600 (Not [...] - Comment: Given post cath, see MAR)1417 (MAR Unhold - Provider: Admin Adt)1634 (Given - Provider: Lesvia Torres, SHIVAM) 0845 (Given - Provider: Ashleigh Babcock, SHIVAM) lidocaine (Lidoderm) 5% patch 1 patch 1 [...] Provider: Lesvia Torres RN - Reason: Patient/family refused)141 (MAY Unhold - Provider: Admin Adt) 0900 (Not Given - Provider: Ashleigh Babcock RN - Reason: Patient/family refused) sodium chloride 0.9 % (flush) (BD PosiFlush Normal Saline 0.9) flush 5 mL 5 mL, Intravenous, 2 TIMES DAILY, First dose on Mon04/13/23 at 2100, Until Discontinued, Routine 0809 (Given - Provider: Alisa Garcia RN)1933 (Given - Provider: Aide Jenkins, SHIVAM) 0800 (Given - Provider: Lesvia Torers RN)0833 (MAY Hold - Provider: Admin Adt [...] Adt)1634 (Given - Provider: Lesvia Torres RN) 0842 [...] (New Bag - Provider: Alisa Garcia RN) 0809 (MAY Hold - Provider: Admin Adt - Reason: Transfer to a Procedural area)1417 (MAR Unhold - Provider: Admin Adt) sodium chloride 0.9% infusion () 100 mL/hr, Intravenous, CONTINUOUS, Starting on Mon04/18/23 at 1245, Until Mon04/18/23 at 2044, Recovery (Recovery-Hospital Unit) 1234 (New Bag - Provider: Katie Carvalho, RN)2100 (Stopped - Provider: Aide Jenkins RN) PRN Medication Order 04/17/2023 04/18/2023 04/19/2023 acetaminophen (Tylenol) tablet 650 mg 650 mg, Oral, EVERY 6 HOURS PRN, Starting on Emely 04/13/23 at 1908, Until Mon04/19/23 at 1615, Pain, Maximum dose of acetaminophen is 4,000 mg from all sources in 24 hours. When ordered for pain, acetaminophen should be given even when other ordered pain medications are indicated., Routine 0833 (MAR Hold - Provider: Admin Adt - Reason: Transfer to a Procedural area)1417 (MAR Unhold - Provider: Admin Adt) aspirin chewable [...] (Intra-Procedure), Routine 0905 (Given - Provider: Wilmer Johnson, RN)1025 (Given - Provider: Wilmer Johnson, RN)1135 (Given - Provider: Wilmer Johnson, RN) glucagon (Glucagen) (1 mg/mL) injection solution [...] before administering the next dose. , Routine 832 (MAY Hold - Provider: Admin Adt - Reason: Transfer to a Procedural area)1416 (MAY Unhold - Provider: Admin Adt) glucose [...] weight of tube = 37.5 grams.), Routine 08 (MAY Hold - Provider: Admin [...] Wilmer Johnson RN)1013 (Given - Provider: Wilmer Johnson, RN)1103 (Given - Provider: Wilmer Johnson [...] PRN, 1 dose, Starting on Mon04/13/23 at 2010, Until Mon04/19/23 at 1615, for discomfort with PIV insertion, Routine 0833 (MAY Hold - Provider: Admin Adt - Reason: Transfer to a Procedural area)1417 (MAY Unhold - Provider: Admin Adt) midazolam (pf) [...] last 24 to 72 hours., Routine 0833 ([facility] Hold - Provider: Admin Adt - Reason: Transfer to a Procedural area)1417 ([facility] Unhold - Provider: Admin Adt) polyethylene glycoL (Miralax) packet 17 g 17 g, Oral, DAILY PRN, Starting on Mon04/17/23 at 1007, Until Mon04/19/23 at 1615, Constipation, For no bowel movements in 2 days, Routine 0833 ([facility] Hold - Provider: Admin Adt - Reason: Transfer to a Procedural area)1417 ([facility] Unhold - Provider: Admin Adt) senna-docusate (Pericolace) 8.6-50 mg per tablet 2 tablet 2 tablet, Oral, 2 TIMES DAILY PRN, Starting on Mon04/17/23 at 1007, Until Mon04/19/23 at 1615, Constipation, Routine 0833 ([facility] Hold - Provider: Admin Adt - Reason: Transfer to a Procedural area)1417 ([facility] Unhold - Provider: Admin Adt) sodium chloride 0.9 % (flush) (BD PosiFlush Normal Saline 0.9) flush 10 mL 10 mL, Intravenous, DAILY PRN, Starting on Emely 04/13/23 at 2035, Until Mon04/19/23 at 1615, For use when accessing Implantable Port, Routine 0833 ([facility] Hold - Provider: Admin Adt - Reason: Transfer to a Procedural area)1417 ([facility] Unhold - Provider: Admin Adt) sodium chloride 0.9 % (flush) (BD PosiFlush Normal Saline 0.9) flush 5-20 mL 5-20 mL, Intravenous, EVERY 1 MIN PRN, Starting on Emely 04/13/23 at 2009, Until Mon04/19/23 at 1615, flush, Flush pertains to all indwelling lines. Flush per protocol found in the job aid using the link provided on this medication record., Routine 0833 (MAY Hold - Provider: Admin Adt - Reason: Transfer to a Procedural area)1417 (MAR Unhold - Provider: Admin Adt) sodium chloride 0.9% infusion (COMPLETED) CONTINUOUS PRN, Starting on Mon04/18/23 at 1135, Until Mon04/18/23 at 1417, Intra-Operative (Intra-Procedure) 1135 (New Bag - Provider: Wilmer Johnson RN) Linked Groups Order Group 1: POCT Fingerstick Glucose (CANCELED) Routine, EVERY 4 HOURS, First occurrence on Mon04/13/23 at 2015, Until Specified, Consider choosing EVERY 4 HOURS [...] Routine documented in this encounter 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
--- OUTSIDE RECORDS SUMMARY | 2023-10-16 03:14 | XMS_ITS | Encounter Summary ---
Author Organization [facility] Address [facility] [place] [address] Care Team Providers Care Relay Record Clerk Name Role Phone Nicolasa Valenzuela Primary Care Pro vider Encounter Details Date Type Department Care Team (Late st Contact Info) Description 02/28/2023 Telephone [place]ematology [place] [address] Hima Reyes MD [facility] DR HEMATOLOGY/[place] [address] Social History Tobacco Use Types Packs/Day Years Used Date Smoking Tobacco: Never Smokeless Tobacco: Never Alcohol Use Standard Drinks/Week Comments Not Currently 0 (1 standard drink = 0.6 oz pur e alcohol) [facility] Utilities Answer Date Recorded In the past 12 months has [employer], gas, oil, or water [employer] threatened to shut off services in your home? No 01/31/2023 Overall Financial Resource Strain (CARDIA) Answe r [...] the money to buy more. Never true 02/01/20 23 Within the past 12 months, t he food you bought just didn't last and you didn't have money to get more. Never true 01/31/2023 PRAPARE - Transportation Answer Date Re corded In the past 12 months, has l ack of transportation kept you from medical appointments or from getting medications? No 01/05 In the past 12 months, has l ack of transportation kept you from meetings, work, or from getting things needed for daily living? No 01/31/2023 Housing Stability Vital Sign Answer Roahn e Recorded In the last 12 months, was t here a time when you were not able to pay the mortgage or rent on time? No 01/31/2023 In the last 12 months, how many places have you lived? 1 01/31/2023 In the last 12 months, was t here a time when you did not have a steady place to sleep or slept in a custodial (including now)? No 01/31/2023 Sex and Gender Information Value Date Recorded Sex Assigned at Not on file Gender Identity Not on file Sexual Orientation Not on file documented as of this encounter Miscellaneous Notes * Telephone Encounter - Hima Reyes MD - 02/28/2023 11:40 PM EST I had a phone call with Mr. Keys to discuss below. 67 yo male with metastatic prostate cancer, followed by Dr. Curtis. He had docetaxel earlier today and he was placed on OnPro. His OnPro fell off from his arm just now and he does not know what todo with that. I advised him not to put that by himself and instead he should bring that to [facility] tomorrow.He agreed with this plan. CC: Dr. Curtis and [facility] Hima Reyes MD [facility] Hematology Oncology Fellow Page [phone] documented in this encounter Plan of Treatment Upcoming Encounters Date Type Department Care Team (Late st Contact Info) Description 10/16/2023 2:30 PM EDT Office Visit Hematology/Oncology at [address] [phone] Downing, Fiordaliza A, [facility] [place] [address] 11/10/2023 9:00 AM EDT Appointment [place] [address] Thomas Curtis MD [facility] [place] [address] 11/21/2023 11:00 AM EDT Infusion Hematology Oncology at [address] [phone] 12/05/2023 1:30 PM EDT Office Visit Hematology/Oncology at [address] [phone] Thomas Curtis MD [facility] [place] [address] Fiordaliza Downing [facility] [place] [address] 12/26/2023 9:00 AM EDT Appointment [place] [address] Thomas Curtis MD [facility] [place] [address] 02/09/2024 8:00 AM EST Appointment [place] [address] Thomas Curtis MD [facility] [place] [address] 03/18/2024 3:00 PM EST Office Visit Cardiology at [address] [phone] Sameer Rudolph MD [facility] [place] [address] 03/22/2024 9:00 AM EST Appointment Nuclear Medicine at [place] [phone] Thomas Curtis MD [facility] [place] [address] 08/23/2024 Hospital Encounter Main Operating Room [place] [phone] True Juarez MD [facility] [place] [address] Scheduled Procedures Name Priority Associated Diagnoses Date/Ti me CYSTO, STENT PLACEMENT (WRVU 2.82) Hydronephrosis with ureteral stricture, not elsewhere classified CYSTO, REMOVAL OF STENT, FOR EIGN BODY OR CALCULUS, SIMPLE (WRVU 2.81) Hydronephrosis with ureteral stricture, not elsewhere classified documented as of this encounter Visit Diagnoses Not on filedocumented in this encounter Care Teams Relay Record Clerk Relationship Specialty Start Date End Date Nicolasa Valenzuela PA [address] [place] [address] PCP - General Family Medicine 12/20/21 documented as of this encounter
--- OUTSIDE RECORDS SUMMARY | 2023-10-16 03:14 | XMS_ITS | Encounter Summary ---
Author Organization [facility] [place] [address] Care Team Providers Care Delinquency Counselor Name Role Phone Nicolasa Valenzuela Primary Care Pro vider Reason for Visit * Reason Comments Medication Management Specialty Pharmacy Review Encounter Details Date Type Department Care Team (Late st Contact Info) Description 04/12/2023 Specialty [place] [address] Christy Cloud [facility] Social History Tobacco Use Types Packs/Day Years Used Date Smoking Tobacco: Never Smokeless Tobacco: Never Alcohol Use Standard Drinks/Week Comments Not Currently 0 (1 standard drink = 0.6 oz pur e alcohol) [facility] Utilities Answer Date Recorded In [...] No 01/31/2023 Housing Stability Vital Sign Answer Rohan e [...] slept in a fdc (including now)? No 01/31/2023 DH IPV Inpatient Questions Answer Date Recorded [...] as of this encounter Progress Notes * Christy Cloud RPH - 04/12/2023 11:32 AM EST Specialty Pharmacy Consultation; Christy Cloud RPH Comprehensive Medication Management (CMM): Specialty Consult, Opt Out Huber Keys Diagnosis: PC Therapy Start Date: ~03/25/2023 Contact in person or via telephone: telephone Mr. Huber Keys is a 67 y.o. (1955) male who was contacted in regard to specialty medication. Spoke with patient regarding Nubeqa. A review of the medication therapy was performed. The medication was NOT REFILLED as scheduled, and all medication related questions and concerns were addressed. The specialty pharmacy staff will follow up with the patient 7-10 days prior to next refill. Is the patient willing to proceed with the Clinical Assessment? No Summary and Recommendations: Today I spoke to Huber Keys in regards to his Nubeqa. Medication, allergies, and health conditions were reviewed. Patient noted he started Nubeqa roughly around March 25, 2023. He has taken the medication for roughly 3 days when he developed a rash. He did further research and found a correlation between the docetaxel and Nubeqa combination that could have contributed to the rash. Provider was then okay with him stopping Nubeqa as well as the rash cleared up. He was off of the medication for 2 weeks prior to his OV visit yesterday. He unfortunately then had swelling of extremitiesand fluid retention, as well as a drop in BP, to which Dr Curtis attributed to Docetaxel and the decision was made to DC docetaxel, and restart Nubeqa at a lowered dose of 300 mg PO BID. Patient confirmed taking first dose this morning. He has roughly 53 doses left, and therefore DH Specialty will follow up with Huber around the second week of May. I advised should his dose of Nubeqa change at all, to call our pharmacy earlier and we will adjust and process his order accordingly. Patientdid not have any questions or concerns at this time and is aware of the specialty pharmacy 26/09 services. We will continue to reach out for monthly refills and follow up accordingly. Economic Assessment: Patient is agreeable to medication copay: Yes Copay Amount: $0.00 Day Supply: 30 Date Needed: TBD Therapy Assessment: Appropriate Therapy: Yes Current Medication Dosing/Route/Frequency: Nubeqa - 300 mg PO BID. 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 Retroperitoneal lymphadenopathy R59.0 Hydronephrosis N13.30 Pleural effusion, bilateral J90 Bilateral lower extremity edema R60.0 Gout M10.9 High risk medication use Z79.899 Medications Reviewed: Yes Medications reconciled: No Allergies Reviewed:Yes Allergies reconciled: No Pharmacist follow-up needed: Yes Informed patient of specialty pharmacy services: Yes (Optional) Patient unenrolls from routine specialty pharmacy services (Y/N): (Optional) If yes, services unenrolled from: Welcome Packet and Rights and Responsibilities: Patient provided welcome packet/rights and responsibilities: Yes -Patient is aware a licensed pharmacist is available 24 hours a day, 7 days a week to discuss medication-related questions or concerns: Yes -Patient verbalizes understanding of the common side effect profile of their medication. The patient is able to call 911 or seek urgent care if signs/symptoms of allergy or harmful adverse reactions occur: Yes Patient understands no changes to current drug regimen were made at the appointment and that the pharmacist is providing recommendations (summary located at top of note) for provider review and follow up. Christy Cloud RPH 04/12/23 11:37 AM documented in this encounter Plan of Treatment Upcoming Encounters Date Type Department Care Team (Late st Contact Info) Description 10/16/2023 2:30 PM EDT Office Visit Hematology/Oncology at [address] [phone] Fiordaliza Downing APRN [facility] [place] [address] 11/10/2023 9:00 AM EDT Appointment [place] [address] Thomas Curtis MD [facility] [place] [address] 11/21/2023 11:00 AM EDT Infusion Hematology Oncology at [address] [phone] 12/05/2023 1:30 PM EDT Office Visit Hematology/Oncology at [address] [phone] Thomas Curtis MD [facility] [place] [address] Fiordaliza Downing APRN [facility] [place] [address] 12/26/2023 9:00 AM EDT Appointment [place] [phone] Thomas Curtis MD [facility] [place] [address] 02/09/2024 8:00 AM EST Appointment [place] [phone] Thomas Curtis MD [facility] [place] [address] 03/18/2024 3:00 PM EST Office Visit Cardiology at [address] [phone] Sameer Rudolph MD [facility] [place] [address] 03/22/2024 9:00 AM EST Appointment [place] [phone] Thomas Curtis MD [facility] [place] [address] 08/23/2024 Hospital Encounter [place] [phone] True Juarez MD [facility] [place] [address] Scheduled Procedures Name Priority Associated Diagnoses Date/Ti [...] on filedocumented in this encounter Care Teams Delinquency Counselor Relationship Specialty Start Date End Date Nicolasa Valenzuela PA [address] [place] [address] PCP - General Family Medicine 12/20/21 documented as of this encounter
--- OUTSIDE RECORDS SUMMARY | 2023-10-16 03:14 | XMS_ITS | Encounter Summary ---
Author Organization [facility] Address [facility] [place] [address] Care Team Providers Care Pipeline Technician Name Role Phone Nicolasa Valenzuela Primary Care Pro vider Encounter Details Date Type Department Care Team (Late st Contact Info) Description 03/29/2023 Telephone Hematology/Oncology at [address] [phone] Elisha Montoya Social History Tobacco [...] slept in a usp (including now)? No 01/31/2023 Sex and Gender Information Value Date Recorded Sex Assigned at Not on file Gender Identity Not on file Sexual Orientation Not on file documented as of this encounter Miscellaneous Notes * Telephone Encounter - Elisha Montoya - 03/29/2023 2:42 PM EST Called [facility] to see if he has been scheduled for his echo yet? As I have had to call sid and no one returns the call. I had to leave a message on both numbers documented in this encounter Plan of Treatment Upcoming Encounters Date Type Department Care Team (Late st Contact Info) Description 10/16/2023 2:30 PM EDT Office Visit Hematology/Oncology at [address] [phone] Fiordaliza Downing APRN [facility] [place] [address] 11/10/2023 9:00 AM EDT Appointment [place] [address] Thomas Curtis MD [facility] [place] [address] 11/21/2023 11:00 AM EDT Infusion Hematology Oncology at [address] [phone] 12/05/2023 1:30 PM EDT Office Visit Hematology/Oncology at [address] [phone] Thomas Curtis MD [facility] [place] [address] Fiordaliza Downing APRN [facility] [place] [address] 12/26/2023 9:00 AM EDT Appointment [place] [phone] Thomas Curtis MD [facility] H[place]AT[place] [address] 02/09/2024 8:00 AM EST Appointment [place] [phone] Thomas Curtis MD [facility] [place] [address] 03/18/2024 3:00 PM EST Office Visit Cardiology at [address] [phone] Sameer Rudolph MD [facility] [place] [address] 03/22/2024 9:00 AM EST Appointment [place] [phone] Thomas Curtis MD [facility] HEMATOLOGY [place] [address] 08/23/2024 Hospital Encounter [place] [address] True Juarez MD [facility] [place] [address] Scheduled Procedures Name Priority Associated Diagnoses Date/Ti me CYSTO, STENT PLACEMENT (WRVU 2.82) Hydronephrosis with ureteral stricture, not elsewhere classified CYSTO, REMOVAL OF STENT, FOR EIGN BODY OR CALCULUS, SIMPLE (WRVU 2.81) Hydronephrosis with ureteral stricture, not elsewhere classified documented as of this encounter Visit Diagnoses Not on filedocumented in this encounter Care Teams Pipeline Technician Relationship Specialty Start Date End Date Nicolasa Valenzuela PA [address] [place] [address] PCP - General Family Medicine 12/20/21 documented as of this encounter
--- OUTSIDE RECORDS SUMMARY | 2023-10-16 03:14 | XMS_ITS | Encounter Summary ---
Author Organization [facility] Address [facility] [place] [address] Care Team Providers Care Hematology Nurse Educator Name Role Phone Nicolasa Valenzuela Primary Care Pro vider Encounter Details Date Type Department Care Team (Late st Contact Info) Description 03/21/2023 Notes Only Hematology/Oncology at [address] [phone] Marline Putnam, SUPPORT MANAGER OFFICE OF CARE MANAGEMENT Social History Tobacco Use Types Packs/Day Years Used Date Smoking Tobacco: Never Smokeless Tobacco: Never Alcohol Use Standard Drinks/Week Comments Not Currently 0 (1 standard drink = 0.6 oz pur e alcohol) [facility] Utilities Answer Date Recorded In the past 12 months has [employer], gas, oil, or water [employer] threatened to shut off services in your [...] slept in a half-way (including now)? No 01/31/2023 Sex and Gender Information Value Date Recorded Sex Assigned at Not on file Gender Identity Not on file Sexual Orientation Not on file documented as of this encounter Progress Notes * Marline Putnam MSW - 03/21/2023 12:44 PM EST Follow up with Huber during his infusion visit. He indicated he is doing well over all. He talkedabout the amazing support system he has in place from family, friends, neighbors and his home community. He is managing day to day. His best friend and others are transporting him to his appointments. Friends and neighbors are bringing by food. A good friend has offered to come and do chores and stay if he needs someone in the home. He feels blessed. Huber did not identify any new needs today, Offered support. Reminded Huber of SUPPORT MANAGER availability and will continue to follow as indicated. Brief assessment Supportive Counseling documented in this encounter Plan of Treatment Upcoming Encounters Date Type Department Care Team (Late st Contact Info) Description 10/16/2023 2:30 PM EDT Office Visit Hematology/Oncology at [address] [phone] Fiordaliza Downing APRN [facility] [place] [address] 11/10/2023 9:00 AM EDT Appointment [place] [phone] Thomas Curtis MD [facility] [place] [address] 11/21/2023 11:00 AM EDT Infusion Hematology Oncology at [address] [phone] 12/05/2023 1:30 PM EDT Office Visit Hematology/Oncology at [address] [phone] Thomas Curtis MD [facility] [place] [address] Fiordaliza Downing APRN [facility] [place] [address] 12/26/2023 9:00 AM EDT Appointment [place] [phone] Thomas Curtis MD [facility] [place] [address] 02/09/2024 8:00 AM EST Appointment [place] [phone] Thomas Curtis MD [facility] [place] [address] 03/18/2024 3:00 PM EST Office Visit Cardiology at [address] [place] [phone] Sameer Rudolph MD [facility] [place] [address] 03/22/2024 9:00 AM EST Appointment Nuclear Medicine at [place] [phone] Thomas Curtis MD [facility] [place] [address] 08/23/2024 Hospital Encounter [place] [phone] True Juarez MD [facility] [place] [address] Scheduled Procedures Name Priority Associated Diagnoses Date/Ti me CYSTO, STENT PLACEMENT (WRVU 2.82) Hydronephrosis with ureteral stricture, not elsewhere classified CYSTO, REMOVAL OF STENT, FOR EIGN BODY OR CALCULUS, SIMPLE (WRVU 2.81) Hydronephrosis with ureteral stricture, not elsewhere classified documented as of this encounter Visit Diagnoses Not on filedocumented in this encounter Care Teams Hematology Nurse Educator Relationship Specialty Start Date End Date Nicolasa Valenzuela PA [address] [place] [address] PCP - General Family Medicine 12/20/21 documented as of this encounter
--- OUTSIDE RECORDS SUMMARY | 2023-10-16 03:14 | XMS_ITS | Encounter Summary ---
Author Organization [facility] Address [facility] [place] [address] Care Team Providers Care Linting Machine Operator Name Role Phone Nicolasa Valenzuela Primary Care Pro vider Encounter Details Date Type Department Care Team (Late st Contact Info) Description 03/22/2023 Orders Only Hematology/Oncology at [address] [phone] Thomas Curtis MD [facility] HEMATOLOGY [place] [address] Prostate cancer metastatic to multiple sites; High risk medication use Social History Tobacco Use Types Packs/Day Years Used Date Smoking Tobacco: Never Smokeless Tobacco: Never Alcohol Use Standard Drinks/Week Comments Not Currently 0 (1 standard drink = 0.6 oz pur e alcohol) [facility] Utilities Answer Date Recorded In the past 12 months has [employer], gas, oil, or water [employer] threatened to shut off services in your [...] 2:30 PM EDT Office Visit Hematology/Oncology at [address] [phone] Fiordaliza Downing APRN [facility] [place] [address] 11/10/2023 9:00 AM EDT Appointment [place] [address] Thomas Curtis MD [facility] HEMATOLOGY [place] [address] 11/21/2023 11:00 AM EDT Infusion Hematology Oncology at [address] [phone] 12/05/2023 1:30 PM EDT Office Visit Hematology/Oncology at [address] [phone] Thomas Curtis MD [facility] HEMATOLOGY [place] [address] Fiordaliza Downing APRN [facility] [place] [address] 12/26/2023 9:00 AM EDT Appointment [place] [phone] Thomas Curtis MD [facility] DR HEMATOLOG[place] [address] 02/09/2024 8:00 AM EST Appointment [place] [phone] Thomas Curtis MD [facility] HEMATOLOGY [place] [address] 03/18/2024 3:00 PM EST Office Visit Cardiology at [address] [phone] Sameer Rudolph MD [facility] [place] [address] 03/22/2024 9:00 AM EST Appointment [place] [phone] Thomas Curtis MD [facility] HEMATOLOGY [place] [address] 08/23/2024 Hospital Encounter [place] [phone] True Juarez MD [facility] [place] [address] Scheduled Procedures Name Priority Associated Diagnoses Date/Ti [...] for long-term (current) use of other medications documented in this encounter Care Teams Linting Machine Operator Relationship Specialty Start Date End Date Nicolasa Valenzuela PA [address] [place] [address] PCP - General Family Medicine 12/20/21 documented as of this encounter
--- OUTSIDE RECORDS SUMMARY | 2023-10-16 03:14 | XMS_ITS | Encounter Summary ---
Author Organization [facility] Address [facility] [place] [address] Care Team Providers Care Field Crop Harvest Contractor Name Role Phone Nicolasa Valenzuela Primary Care Pro vider Reason for Visit * Reason Onset Date Comments Follow-up 03/14/2023 Application stil branden pending Encounter Details Date Type Department Care Team (Late st Contact Info) Description 03/14/2023 Telephone Hematology/Oncology at [address] [phone] Cara Pham RN Follow-up (Application still pending) Social History Tobacco Use Types Packs/Day Years Used Date Smoking Tobacco: Never Smokeless Tobacco: Never Alcohol Use Standard Drinks/Week Comments Not Currently 0 (1 standard drink = 0.6 oz pur e alcohol) [facility] Utilities Answer Date Recorded In the past 12 months has [employer], gas, oil, or water [employer] threatened to shut off services in your [...] in a senior living (including now)? No 01/31/2023 Sex and Gender Information Value Date Recorded Sex Assigned at Not on file Gender Identity Not on file Sexual Orientation Not on file documented as of this encounter Miscellaneous Notes * Telephone Encounter - Cara Pham RN - 03/14/2023 1:51 PM EST Called [employer] pt assistance at [phone]. Application is still waiting for approval from case sealer, message sent to that person to see when will be approved. No time given. documented in this encounter Plan of Treatment Upcoming Encounters Date Type Department Care Team (Late st Contact Info) Description 10/16/2023 2:30 PM EDT Office Visit Hematology/Oncology at [address] [phone] Fiordaliza Downing APRN [facility] [place] [address] 11/10/2023 9:00 AM EDT Appointment [place] [phone] Thomas Curtis MD [facility] HEMATOLOGY [place] [address] 11/21/2023 11:00 AM EDT Infusion Hematology Oncology at [address] [phone] 12/05/2023 1:30 PM EDT Office Visit Hematology/Oncology at [address] [phone] Thomas Curtis MD [facility] HEMATOLOGY [place] [address] Fiordaliza Downing APRN [facility] [place] [address] 12/26/2023 9:00 AM EDT Appointment [place] [phone] Thomas Curtis MD [facility] HEMATOLOGY [place] [address] 02/09/2024 8:00 AM EST Appointment [place] [phone] Thomas Curtis MD [facility] HEMATOLOGY [place] [address] 03/18/2024 3:00 PM EST Office Visit Cardiology at [address] [place] [address] Sameer Rudolph MD [facility] [place] [address] 03/22/2024 9:00 AM EST Appointment [place] [phone] Thomas Crutis MD [facility] HEMATOLOGY [place] [address] 08/23/2024 Hospital Encounter [place] [phone] True Juarez MD [facility] [place] [address] Scheduled Procedures Name Priority Associated Diagnoses Date/Ti me CYSTO, STENT PLACEMENT (WRVU 2.82) Hydronephrosis with ureteral stricture, not elsewhere classified CYSTO, REMOVAL OF STENT, FOR EIGN BODY OR CALCULUS, SIMPLE (WRVU 2.81) Hydronephrosis with ureteral stricture, not elsewhere classified documented as of this encounter Visit Diagnoses Not on filedocumented in this encounter Care Teams Field Crop Harvest Contractor Relationship Specialty Start Date End Date Nicolasa Valenzuela PA [address] [place] [address] PCP - General Family Medicine 12/20/21 documented as of this encounter
--- OUTSIDE RECORDS SUMMARY | 2023-10-16 03:14 | XMS_ITS | Encounter Summary ---
Author Organization [facility] Address [facility] [place] [address] Care Team Providers Care Aegis Console Operator Track Name Role Phone Nicolasa Valenzuela Primary Care Pro vider Encounter Details Date Type Department Care Team (Latest Contact Info) Description 03/21/2023 Travel Social History Tobacco Use Types Packs/Day Years Used Date Smoking Tobacco: Never Smokeless Tobacco: Never Alcohol Use Standard Drinks/Week Comments Not Currently 0 (1 standard drink = 0.6 oz pur e alcohol) [facility] Utilities Answer Date Recorded In the past 12 months has e electric, gas, oil, or water [employer] threatened to shut off services in your [...] slept in a jail (including now)? No 01/31/2023 Sex and Gender Information Value Date Recorded Sex Assigned at Not on file Gender Identity Not on file Sexual Orientation Not on file documented as of this encounter Plan of Treatment Upcoming Encounters Date Type Department Care Team (Late st Contact Info) Description 10/16/2023 2:30 PM EDT Office Visit Hematology/Oncology at [address] [phone] Fiordaliza Downing APRN [facility] [place] [address] 11/10/2023 9:00 AM EDT Appointment [place] [address] Thomas Curtis MD [facility] [place]AT[place] [address] 11/21/2023 11:00 AM EDT Infusion Hematology Oncology at [address] [phone] 12/05/2023 1:30 PM EDT Office Visit Hematology/Oncology at [address] [phone] Thomas Curtis MD [facility] HEMATOLOGY [place] [address] Fiordaliza Downing APRN [facility] [place] [address] 12/26/2023 9:00 AM EDT Appointment [place] [phone] Thomas Curtis MD [facility] HEMATOLOGY [place] [address] 02/09/2024 8:00 AM EST Appointment [place] [phone] Thomas Curtis MD [facility] HEMATOLOG[place] [address] 03/18/2024 3:00 PM EST Office Visit Cardiology at [address] [phone] Sameer Rudolph MD [facility] [place] [place] [address] 03/22/2024 9:00 AM EST Appointment [place] [phone] Thomas Curtis MD [facility] HEMATOLOG[place] [address] 08/23/2024 Hospital Encounter [place] [phone] True Juarez MD [facility] [place] [address] Scheduled Procedures Name Priority Associated Diagnoses Date/Ti me CYSTO, STENT PLACEMENT (WRVU 2.82) Hydronephrosis with ureteral stricture, not elsewhere classified CYSTO, REMOVAL OF STENT, FOR EIGN BODY OR CALCULUS, SIMPLE (WRVU 2.81) Hydronephrosis with ureteral stricture, not elsewhere classified documented as of this encounter Visit Diagnoses Not on filedocumented in this encounter Care Teams Aegis Console Operator Track Relationship Specialty Start Date End Date Nicolasa Valenzuela PA [address] [place] [address] PCP - General Family Medicine 12/20/21 documented as of this encounter
--- OUTSIDE RECORDS SUMMARY | 2023-10-16 03:14 | XMS_ITS | Encounter Summary ---
Author Organization [facility] [place] [address] Care Team Providers Care Rn Integrated Name Role Phone Nicolasa Valenzuela Primary Care Pro vider Encounter Details Date Type Department Care Team (Late st Contact Info) Description 03/22/2023 Telephone Hematology [place] [phone] Lisa Greer, [facility] [place] [address] Social History Tobacco Use Types Packs/Day Years Used Date Smoking Tobacco: Never Smokeless Tobacco: Never Alcohol Use Standard Drinks/Week Comments Not Currently 0 (1 standard drink = 0.6 oz pur e alcohol) [facility] Utilities Answer Date Recorded In the past 12 months has [employer], gas, oil, or water [employer] threatened to shut off services in your [...] [place] [facility] (including now)? No 01/31/2023 Sex and Gender Information Value Date Recorded Sex Assigned at Not on file Gender Identity Not on file Sexual Orientation Not on file documented as of this encounter Plan of Treatment Upcoming Encounters Date Type Department Care Team (Late st Contact Info) Description 10/16/2023 2:30 PM EDT Office Visit Hematology/Oncology at [address] [phone] Fiordaliza Downing APRN [facility] [place] [address] 11/10/2023 9:00 AM EDT Appointment [place] [address] Thomas Curtis MD [facility] [address] [place] [address] 11/21/2023 11:00 AM EDT Infusion Hematology Oncology at [address] [phone] 12/05/2023 1:30 PM EDT Office Visit Hematology/Oncology at [address] [phone] Thomas Curtis MD [facility] [place] [address] Fiordaliza Downing APRN [facility] [place] [address] 12/26/2023 9:00 AM EDT Appointment Nuclear Medicine at [place] [phone] Thomas Curtis MD [facility] [place] [address] 02/09/2024 8:00 AM EST Appointment Nuclear Medicine at [place] [phone] Thomas Curtis MD [facility] [place] [address] 03/18/2024 3:00 PM EST Office Visit Cardiology at [address] [phone] Sameer Rudolph MD [facility] [place] [address] 03/22/2024 9:00 AM EST Appointment Nuclear Medicine at [place] [phone] Thomas Curtis MD [facility] [place] [address] 08/23/2024 Hospital Encounter Main Operating Room [place] [phone] True Juarez MD [facility] [place] [address] Scheduled Procedures Name Priority Associated Diagnoses Date/Ti me CYSTO, STENT PLACEMENT (WRVU 2.82) Hydronephrosis with ureteral stricture, not elsewhere classified CYSTO, REMOVAL OF STENT, FOR EIGN BODY OR CALCULUS, SIMPLE (WRVU 2.81) Hydronephrosis with ureteral stricture, not elsewhere classified documented as of this encounter Visit Diagnoses Not on filedocumented in this encounter Care Teams Rn Integrated Relationship Specialty Start Date End Date Nicolasa Valenzuela PA [address] [place] [address] PCP - General Family Medicine 12/20/21 documented as of this encounter
--- OUTSIDE RECORDS SUMMARY | 2023-10-16 03:14 | XMS_ITS | Encounter Summary ---
Author Organization [facility] [place] [address] Care Team Providers Care Precipitate Washer Name Role Phone Nicolasa Valenzuela Primary Care Pro vider Reason for Visit * Diagnostic Test (Routine) - Closed Specialty Diagnoses / Procedures Referred By Toño mayorga Referred To Contact Radiology Diagnoses Malignant neoplasm of prostate metastatic to bone Procedures NM PET CT PSMA Prostate (Illuccix) Thomas Curtis MD [facility] [address] [place] [address] [place] [address] Referral ID Status Reason Start Date Expiration Date V isits Requested Visits Authorized [id number] Closed Specialty Service Requested 01/31/2023 07/31/2024 1 2 Encounter Details Date Type Department Care Team (Latest Contact Info) Description 03/03/2023 9:56 AM EST - 03/03/2023 11:59 PM [facility] Hospital Encounter [place] [phone] Thomas Curtis MD [facility] [place]AT[place] [address] Discharge Disposition: Home Social History Tobacco Use Types Packs/Day Years Used Date Smoking Tobacco: Never Smokeless Tobacco: Never Alcohol Use Standard Drinks/Week Comments Not Currently 0 (1 standard drink = 0.6 oz pur e alcohol) [facility] Utilities Answer Date Recorded In [...] slept in a fpc (including now)? No 01/31/2023 Sex and Gender Information Value Date Recorded Sex Assigned at Not on file Gender Identity Not on file Sexual Orientation Not on file documented as of this encounter Medications at Time of Discharge Medication Sig Dispensed Refills Start Date End Date tamsulosin (Flomax) 0.4 mg capsule Take 0.4 mg by mouth daily. acetaminophen (Tylenol) 325 mg tablet Take 650 mg by mouth 3 times daily. levothyroxine (Synthroid) 150 mcg tablet Take 150 mcg by mouth daily. HYDROcodone-acetami nophen (Benzonia) 5-325 mg tablet Take 1 tablet by [...] Units subcutaneously daily. 10 mL 12 10/03/2022 darolutamide (Nubeqa) 300 mg tablet Take 2 tablets by mouth 2 times daily. Call clinic before starting medication 120 tablet 11 02/01/2023 04/19/2023 prochlorperazine (Compazine) 10 mg tablet Take 1 tablet by mouth every 6 hours as needed for Nausea. 30 tablet 3 01/31/2023 04/13/2023 predniSONE (Deltasone) 5 mg tablet Take 1 tablet by mouth daily. 30 tablet 5 11/04/2022 03/21/2023 documented as of this encounter Plan of Treatment Upcoming Encounters Date Type Department Care Team (Late st Contact Info) Description 10/16/2023 2:30 PM EDT Office Visit Hematology/Oncology at [address] [phone] Fiordaliza Downing APRN [facility] [place] [address] 11/10/2023 9:00 AM EDT Appointment [place] [address] Thomas Curtis MD [facility] [place] [address] 11/21/2023 11:00 AM EDT Infusion Hematology Oncology at [address] [phone] 12/05/2023 1:30 PM EDT Office Visit Hematology/Oncology at [address] [phone] Thomas Curtis MD [facility] [place] [address] Fiordaliza Downing APRN [facility] [place] [address] 12/26/2023 9:00 AM EDT Appointment Nuclear Medicine at [place] [phone] Thomas Curtis MD [facility] [place] [address] 02/09/2024 8:00 AM EST Appointment [place] [phone] Thomas Curtis MD [facility] [place] [address] 03/18/2024 3:00 PM EST Office Visit Cardiology at [address] [phone] Sameer Rudolph MD [facility] [place] [address] 03/22/2024 9:00 AM EST Appointment [place] [phone] Thomas Curtis MD [facility] H[place]ATOLOG[place] [address] 08/23/2024 Hospital Encounter [place] [phone] True Juarez MD [facility] [place] [address] Scheduled Procedures Name Priority Associated Diagnoses Date/Ti me CYSTO, STENT PLACEMENT (WRVU 2.82) Hydronephrosis with ureteral stricture, not elsewhere classified CYSTO, REMOVAL OF STENT, FOR EIGN BODY OR CALCULUS, SIMPLE (WRVU 2.81) Hydronephrosis with ureteral stricture, not elsewhere classified documented as of this encounter Procedures Procedure Name Priority Date/Time Associated Diagnosis Comments NM PET CT PSMA PROSTATE (ILLUCCIX) Routine 03/03/2023 11:39 AM EST Malignant neoplasm of prostate metastatic to bone documented in this encounter Results * NM PET CT PSMA Prostate (Illuccix) (03/03/2023 11:39 AM EST) Anatomical Region Laterality Modality Positron Emissio n Tomography (PET) Impressions 03/08/2023 3:09 PM EST 1. ??PSMA positive shahida metastases in the neck, abdomen, and pelvis, markedly decreased in size compared to prior FDG PET/CT of 10/23/2022. 2. ??Multiple PSMA positive sclerotic osseous metastases as above. 3. ??PSMA positive malignancy in the posterior right lobe of prostate. Thank you for referring this patient to [facility]. Thank you for letting us participate in the care of this patient. ??If you are a health care provider and have any questions regarding this report, please contact the number below. ??For patients who have questions please contact the health ambulatory care coordinator that requested your imaging first. ? Narrative 03/08/2023 3:09 PM EST EXAMINATION: NM PET CT PSMA PROSTATE (ILLUCCIX) CLINICAL HISTORY: Prostate cancer, assess treatment response TECHNIQUE: Following IV injection of Ga 68 PSMA-11 (Illuccix) and a standard uptake of approximately 60 minutes, a noncontrast CT scan followed by a PET scan were acquired from the top of the head to mid thighs. The noncontrast CT was used for anatomic localization and photon attenuation correction of the PET scan. Ga 68 PSMA-11 (Illuccix) Dose: 5.7 mCi COMPARISON: FDG PET/CT 10/31/2022 FINDINGS: HEAD/NECK: Tracer avid adenopathy in the medial left supraclavicular region (axial image 99) and left posterior lower cervical region (axial image 80). Physiologic activity present in the lacrimal and salivary glands. CHEST: Normal activity in all soft tissue regions. No adenopathy and no suspicious pulmonary nodule. Multivessel coronary calcifications present. ABDOMEN/PELVIS: Tracer avid adenopathy in the abdominal and pelvic retroperitoneum including in the retrocaval, aortocaval, periaortic, bilateral common iliac, and right external iliac regions. Above-mentioned adenopathy is markedly decreased in size compared to prior FDG PET/CT of 10/31/2022. Heterogeneous FDG avidity in the posterior right lobe of prostate. Physiologic activity is present in the liver, spleen, collecting system, and GI tract. Bilateral ureteral stents present. SKELETON/EXTREMITIES: Multiple tracer avid sclerotic lesions including in the bilateral proximal femurs, bilateral iliac bones, lower lumbosacral spine, and several left-sided ribs. No evidence of pathologic fracture or spinal canal involvement. Procedure Note Beck Gilmore MD - 03/08/2023 EXAMINATION: NM PET CT PSMA PROSTATE (ILLUCCIX) CLINICAL HISTORY: Prostate cancer, assess treatment response TECHNIQUE: Following IV injection of Ga 68 PSMA-11 (Illuccix) and astandard uptake of approximately 60 minutes, a noncontrast CT scan followed by aPET scan were acquired from the top of the head to mid thighs. The noncontrast CTwas used for anatomic localization and photon attenuation correction of thePET scan. Ga 68 PSMA-11 (Illuccix) Dose: 5.7 mCi COMPARISON: FDG PET/CT 10/31/2022 FINDINGS: HEAD/NECK: Tracer avid adenopathy in the medial left supraclavicular region (axialimage 99) and left posterior lower cervical region (axial image 80). Physiologic activity present in the lacrimal and salivary glands. CHEST: Normal activity in all soft tissue regions. No adenopathy and nosuspicious pulmonary nodule. Multivessel coronary calcifications present. ABDOMEN/PELVIS: Tracer avid adenopathy in the abdominal and pelvic retroperitoneumincluding in the retrocaval, aortocaval, periaortic, bilateral common iliac, andright external iliac regions. Above-mentioned adenopathy is markedly decreased in size compared to priorFDG PET/CT of 10/31/2022. Heterogeneous FDG avidity in the posterior right lobe of prostate. Physiologic activity is present in the liver, spleen, collecting system,and GI tract. Bilateral ureteral stents present. SKELETON/EXTREMITIES: Multiple tracer avid sclerotic lesions including in the bilateralproximal femurs, bilateral iliac bones, lower lumbosacral spine, and severalleft-sided ribs. No evidence of pathologic fracture or spinal canal involvement. IMPRESSION 1. PSMA positive shahida metastases in the neck, abdomen, and pelvis,markedly decreased in size compared to prior FDG PET/CT of 10/23/2022. 2. Multiple PSMA positive sclerotic osseous metastases as above. 3. PSMA positive malignancy in the posterior right lobe of prostate. Thank you for referring this patient to [facility]. Thank you for letting us participate in the care of this patient. If youare a health care provider and have any questions regarding this report,please contact the number below. For patients who have questions please contactthe health ambulatory care coordinator that requested your imaging first. Thomas Curtis MD [facility] PET ORDERABLES documented in this encounter Visit Diagnoses Not on filedocumented in this encounter Care Teams Precipitate Washer Relationship Specialty Start Date End Date Nicolasa Valenzuela PA [address] [place] [address] PCP - General Family Medicine 12/20/21 documented as of this encounter
--- OUTSIDE RECORDS SUMMARY | 2023-10-16 03:14 | XMS_ITS | Encounter Summary ---
Author Organization [facility] Address [facility] [place] [address] Care Team Providers Care Car Varnisher Name Role Phone Nicolasa Valenzuela Primary Care Pro vider Encounter Details Date Type Department Care Team (Latest Contact Info) Description 03/21/2023 1:39 PM EST - 03/21/2023 11:59 PM [facility] Hospital Encounter Laboratory [facility] [place] [address] Discharge Disposition: Home Social History Tobacco Use Types Packs/Day Years Used Date Smoking Tobacco: Never Smokeless Tobacco: Never Alcohol Use Standard Drinks/Week Comments Not Currently 0 (1 standard drink = 0.6 oz pur e alcohol) [facility] Utilities Answer Date Recorded [...] slept in a residential (including now)? No 01/31/2023 Sex and Gender [...] 150 mcg by mouth daily. HYDROcodone-acetami nophen ([place]) 5-325 mg tablet Take 1 tablet by [...] Units subcutaneously daily. 10 mL 12 10/03/2022 furosemide (Lasix) 20 mg tabletIndications:P rostate cancer metastatic to multiple sites Take 1 tablet by mouth 2 times daily. 30 tablet 2 03/21/2023 04/13/2023 darolutamide (Nubeqa) 300 mg tablet Take 2 tablets by mouth 2 times daily. Call clinic before starting medication 120 tablet 11 02/01/2023 04/19/2023 prochlorperazine (Compazine) 10 mg tablet Take 1 tablet by mouth every 6 hours as needed for Nausea. 30 tablet 3 01/31/2023 04/13/2023 documented as of this encounter Plan of Treatment Upcoming Encounters Date Type Department Care Team (Late st Contact Info) Description 10/16/2023 2:30 PM EDT Office Visit Hematology/Oncology at [address] [phone] Fiordaliza Downing APRN [facility] [place] [address] 11/10/2023 9:00 AM EDT Appointment [place] [address] Thomas Curtis MD [facility] [place] [address] 11/21/2023 11:00 AM EDT Infusion Hematology Oncology at [address] [phone] 12/05/2023 1:30 PM EDT Office Visit Hematology/Oncology at [address] [phone] Thomas Curtis MD [facility] HEMATOLOGY [place] [address] Fiordaliza Downing APRN [facility] [place] [address] 12/26/2023 9:00 AM EDT Appointment [place] [address] Thomas Curtis MD [facility] HEMATOLOGY [place] [address] 02/09/2024 8:00 AM EST Appointment [place] [address] Thomas Curtis MD [facility] [place] [address] 03/18/2024 3:00 PM EST Office Visit Cardiology at [address] [phone] Sameer Rudolph MD [facility] [place] [address] 03/22/2024 9:00 AM EST Appointment [place] [address] Thomas Curtis MD [facility] [place] [address] 08/23/2024 Hospital Encounter [place] [address] True Juarez MD [facility] [place] [address] Scheduled Procedures Name Priority Associated Diagnoses Date/Ti me CYSTO, STENT PLACEMENT (WRVU 2.82) Hydronephrosis with ureteral stricture, not elsewhere classified CYSTO, REMOVAL OF STENT, FOR EIGN BODY OR CALCULUS, SIMPLE (WRVU 2.81) Hydronephrosis with ureteral stricture, not elsewhere classified documented as of this encounter Procedures Procedure Name Priority Date/Time Associated Diagnosis Comments SURGICAL PATHOLOGY REPORT Routine 03/21/2023 1:41 PM EST documented in this encounter Results * Surgical Pathology Report (03/21/2023 1:41 PM EST) Final Diagnosis [id number] ? Location: OPW The signing pathologist has (i) examined the relevant preparation(s) for the specimen(s) and (ii) rendered or confirmed the diagnosis(es). . ?Surgical Pathology DIAGNOSIS ? ARCHIVAL CASE Please see addendum report for case [id number] for testing results. Please also see Specimen Submitted and Specimen Processing below for additional information on this archival request. Electronically signed by: ?Rohan DOBSON, Olvin Petty Verified: ??06/05/2023 13:58 ??Pathologist Performed at: ??-[facility] Dept. of Pathology, [place] [address] [employer] Paper Coating Machine Setter: Tramaine Dixon MD, AP, ??CLIA Certificate: [id number] SPECIMEN(S) SUBMITTED Retrieved from archives on 03/21/2023 for testing: Case [id number] block A1 CLINICAL INFORMATION ARCHIVAL CASE SPECIMEN PROCESSING At the request of Dr. Olvin Madrigal, this is ordered at this time for the purpose of performing MMR, NGS. 06/05/2023 1:58 PM EDT [facility] Archival Case 03/21/2023 1:4 1 PM EST 03/21/2023 1:41 PM EST Olvin Madrigal MD PATHOLOGY/CYTOLOGY ORDERABLES Performing Organization Address City/State/[facility] Co de Phone Number [facility] [place] [place] [address] documented in this encounter Visit Diagnoses Not on filedocumented in this encounter Care Teams Car Varnisher Relationship Specialty Start Date End Date Nicolasa Valenzuela PA [address] [place] [address] PCP - General Family Medicine 12/20/21 documented as of this encounter
--- OUTSIDE RECORDS SUMMARY | 2023-10-16 03:14 | XMS_ITS | Encounter Summary ---
Author Organization [facility] Address [facility] [place] [address] Care Team Providers Care Steak Sauce Maker Name Role Phone Nicolasa Valenzuela Primary Care Pro vider Reason for Visit * Reason Onset Date Comments Follow-up 03/08/2023 Encounter Details Date Type Department Care Team (Late st Contact Info) Description 03/08/2023 Telephone Hematology/Oncology at [address] [phone] Alexsandra Mauriec RN Follow-up Social History Tobacco Use Types Packs/Day Years Used Date Smoking Tobacco: Never Smokeless Tobacco: Never Alcohol Use Standard Drinks/Week Comments Not Currently 0 (1 standard drink = 0.6 oz pur e alcohol) [facility] Utilities Answer Date Recorded In the past 12 months has e electric, gas, oil, or water [employer] threatened to shut off services in [...] in a group home (including now)? No 01/31/2023 Sex and Gender Information Value Date Recorded Sex Assigned at Not on file Gender Identity Not on file Sexual Orientation Not on file documented as of this encounter Miscellaneous Notes * Telephone Encounter - Alexsandra Maurice RN - 03/08/2023 10:34 AM EST Called and spoke with Huber Keys to let him know [facility] is able to do his day 2 Neulasta injection (after his chemotherapy treatment here is [facility]) per his request. He was very thankful. documented in this encounter Plan of Treatment Upcoming Encounters Date Type Department Care Team (Late st Contact Info) Description 10/16/2023 2:30 PM EDT Office Visit Hematology/Oncology at [address] [phone] Fiordaliza Downing APRN [facility] [place] [address] 11/10/2023 9:00 AM EDT Appointment [place] [address] Thomas Curtis MD [facility] HEMATOLOGY [place] [address] 11/21/2023 11:00 AM EDT Infusion Hematology Oncology at [address] [phone] 12/05/2023 1:30 PM EDT Office Visit Hematology/Oncology at [address] [phone] Thomas Curtis MD [facility] HEMATOLOG[facility] [place] [address] Fiordaliza Downing APRN [facility] [place] [address] 12/26/2023 9:00 AM EDT Appointment [place] [phone] Thomas Curtis MD [facility] HEMATOLOG[facility] [place] [address] 02/09/2024 8:00 AM EST Appointment [place] [phone] Thomas Curtis MD [facility]EMATOLOG[facility] [place] [address] 03/18/2024 3:00 PM EST Office Visit Cardiology at [address] [place] [address] Sameer Rudolph MD [facility] [place] [address] 03/22/2024 9:00 AM EST Appointment [place] [phone] Thomas Curtis MD [facility] HEMATOLOGY [place] [address] 08/23/2024 Hospital Encounter Main Operating Room [facility] [address] [place] [phone] True Juarez MD [facility] [place] [address] Scheduled Procedures Name Priority Associated Diagnoses Date/Ti me CYSTO, STENT PLACEMENT (WRVU 2.82) Hydronephrosis with ureteral stricture, not elsewhere classified CYSTO, REMOVAL OF STENT, FOR EIGN BODY OR CALCULUS, SIMPLE (WRVU 2.81) Hydronephrosis with ureteral stricture, not elsewhere classified documented as of this encounter Visit Diagnoses Not on filedocumented in this encounter Care Teams Steak Sauce Maker Relationship Specialty Start Date End Date Nicolasa Valenzuela PA [address] [place] [address] PCP - General Family Medicine 12/20/21 documented as of this encounter
--- OUTSIDE RECORDS SUMMARY | 2023-10-16 03:14 | XMS_ITS | Encounter Summary ---
Author Organization [facility] Address [facility] [place] [address] Care Team Providers Care Tax Manager Name Role Phone Nicolasa Valenzuela Primary Care Pro vider Encounter Details Date Type Department Care Team (Late st Contact Info) Description 03/08/2023 Orders Only Hematology/Oncology at [address] [phone] Fiordaliza Downing APRN [facility] [place] [address] Social History Tobacco Use Types Packs/Day Years Used Date Smoking Tobacco: Never Smokeless Tobacco: Never Alcohol Use Standard Drinks/Week Comments Not Currently 0 (1 standard drink = 0.6 oz pur e alcohol) [facility] Utilities Answer Date Recorded In the past 12 months has [employer], gas, oil, or water [employer] threatened to shut off services in your [...] slept in a alf (including now)? No 01/31/2023 Sex and Gender Information Value Date Recorded Sex Assigned at Not on file Gender Identity Not on file Sexual Orientation Not on file documented as of this encounter Progress Notes * Fiordaliza Downing APRN - 03/08/2023 11:50 AM EST Error documented in this encounter Plan of Treatment Upcoming Encounters Date Type Department Care Team (Late st Contact Info) Description 10/16/2023 2:30 PM EDT Office Visit Hematology/Oncology at [address] [phone] Fiordaliza Downing APRN [facility] [place] [address] 11/10/2023 9:00 AM EDT Appointment [place] [address] Thomas Curtis MD [facility] HEMATOLOGY [place] [address] 11/21/2023 11:00 AM EDT Infusion Hematology Oncology at [address] [phone] 12/05/2023 1:30 PM EDT Office Visit Hematology/Oncology at [address] [phone] Thomas Curtis MD [facility] HEMATOLOGY [place] [address] Fiordaliza Downing APRN [facility] [place] [address] 12/26/2023 9:00 AM EDT Appointment [place] [phone] Thomas Curtis MD [facility] HEMATOLOGY [place] [address] 02/09/2024 8:00 AM EST Appointment [place] [phone] Thomas Curtis MD [facility] HEMATOLOG[facility] [place] [address] 03/18/2024 3:00 PM EST Office Visit Cardiology at [address] [place] [phone] Sameer Rudolph MD [facility] [place] [address] 03/22/2024 9:00 AM EST Appointment [place] [phone] Thomas Curtis MD [facility] HEMATOLOGY [place] [address] 08/23/2024 Hospital Encounter [place] [address] True Juarez MD [facility] [place] [address] Scheduled Procedures Name Priority Associated Diagnoses Date/Ti me CYSTO, STENT PLACEMENT (WRVU 2.82) Hydronephrosis with ureteral stricture, not elsewhere classified CYSTO, REMOVAL OF STENT, FOR EIGN BODY OR CALCULUS, SIMPLE (WRVU 2.81) Hydronephrosis with ureteral stricture, not elsewhere classified documented as of this encounter Visit Diagnoses Not on filedocumented in this encounter Care Teams Tax Manager Relationship Specialty Start Date End Date Nicolasa Valenzuela PA [address] [place] [address] PCP - General Family Medicine 12/20/21 documented as of this encounter
--- OUTSIDE RECORDS SUMMARY | 2023-10-16 03:14 | XMS_ITS | Encounter Summary ---
Author Organization [facility] Address [facility] [place] [address] Care Team Providers Care Social Sciences Professor Name Role Phone Nicolasa Valenzuela Primary Care Pro vider Encounter Details Date Type Department Care Team (Latest Contact Info) Description 03/03/2023 Travel Social History Tobacco Use Types Packs/Day Years Used Date Smoking Tobacco: Never Smokeless Tobacco: Never Alcohol Use Standard Drinks/Week Comments Not Currently 0 (1 standard drink = 0.6 oz pur e alcohol) [facility] Utilities Answer Date Recorded In the past 12 months has e electric, gas, oil, or water [employer] threatened to shut off services in your [...] 2:30 PM EDT Office Visit Hematology/Oncology at [address] [phone] Fiordaliza Downing APRN [facility] [place] [address] 11/10/2023 9:00 AM EDT Appointment [place] [address] Thomas Curtis MD [facility] HEMATOLOG[facility] [place] [address] 11/21/2023 11:00 AM EDT Infusion Hematology Oncology at [address] [phone] 12/05/2023 1:30 PM EDT Office Visit Hematology/Oncology at [address] [phone] Thomas Curtis MD [facility] HEMAT[facility] [address] Fiordaliza Downing APRN [facility] [place] [address] 12/26/2023 9:00 AM EDT Appointment [place] [phone] Thomas Curtis MD [facility] [place] [address] 02/09/2024 8:00 AM EST Appointment [place] [phone] Thomas Curtis MD [facility]AT[facility] [place] [address] 03/18/2024 3:00 PM EST Office Visit Cardiology at [address] [phone] Sameer Rudolph MD [facility] [place] [address] 03/22/2024 9:00 AM EST Appointment [place] [phone] Thomas Curtis MD [facility]AT[facility] [place] [address] 08/23/2024 Hospital Encounter [place] [phone] True Juarez MD [facility] [place] [address] Scheduled Procedures Name Priority Associated Diagnoses Date/Ti me CYSTO, STENT PLACEMENT (WRVU 2.82) Hydronephrosis with ureteral stricture, not elsewhere classified CYSTO, REMOVAL OF STENT, FOR EIGN BODY OR CALCULUS, SIMPLE (WRVU 2.81) Hydronephrosis with ureteral stricture, not elsewhere classified documented as of this encounter Visit Diagnoses Not on filedocumented in this encounter Care Teams Social Sciences Professor Relationship Specialty Start Date End Date Nicolasa Valenzuela PA [address] [place] [address] PCP - General Family Medicine 12/20/21 documented as of this encounter
--- OUTSIDE RECORDS SUMMARY | 2023-10-16 03:14 | XMS_ITS | Encounter Summary ---
Author Organization [facility] Address [facility] [place] [address] Care Team Providers Care Alcohol Law Enforcement Agent Name Role Phone Nicolasa Valenzuela Primary Care Pro vider Encounter Details Date Type Department Care Team (Latest Contact Info) Description 03/21/2023 9:58 AM EST - 03/21/2023 11:59 PM [facility] Hospital Encounter Laboratory [facility] [place] [address] Discharge Disposition: Home Social History Tobacco Use Types Packs/Day Years Used Date Smoking Tobacco: Never Smokeless Tobacco: Never Alcohol Use Standard Drinks/Week Comments Not Currently 0 (1 standard drink = 0.6 oz pur e alcohol) [facility] Utilities Answer Date Recorded In the past [...] 150 mcg by mouth daily. HYDROcodone-acetami nophen ([place]) 5-325 mg tablet Take 1 tablet by [...] 2:30 PM EDT Office Visit Hematology/Oncology at [address] [phone] Fiordaliza Downing APRN [facility] [place] [address] 11/10/2023 9:00 AM EDT Appointment [place] [address] Thomas Curtis MD [facility] HEMATOLOGY [place] [address] 11/21/2023 11:00 AM EDT Infusion Hematology Oncology at [address] [phone] 12/05/2023 1:30 PM EDT Office Visit Hematology/Oncology at [address] [phone] Thomas Curtis MD [facility] HEMATOLOGY [place] [address] Fiordaliza Downing APRN [facility] [place] [address] 12/26/2023 9:00 AM EDT Appointment [place] [address] Thomas Curtis MD [facility] HEMATOLOGY [place] [address] 02/09/2024 8:00 AM EST Appointment [place] [address] Thomas Curtis MD [facility] HEMATOLOGY [place] [address] 03/18/2024 3:00 PM EST Office Visit Cardiology at [address] [place] [address] Sameer Rudolph MD [facility] [place] [address] 03/22/2024 9:00 AM EST Appointment [place] [phone] Thomas Curtis MD [facility] HEMATOLOGY [place] [address] 08/23/2024 Hospital Encounter [place] [phone] True Juarez MD [facility] [place] [address] Scheduled Procedures Name Priority Associated Diagnoses Date/Ti me CYSTO, STENT PLACEMENT (WRVU 2.82) Hydronephrosis with ureteral stricture, not elsewhere classified CYSTO, REMOVAL OF STENT, FOR EIGN BODY OR CALCULUS, SIMPLE (WRVU 2.81) Hydronephrosis with ureteral stricture, not elsewhere classified documented as of this encounter Visit Diagnoses Not on filedocumented in this encounter Care Teams Alcohol Law Enforcement Agent Relationship Specialty Start Date End Date Nicolasa Valenzuela PA [address] [place] [address] PCP - General Family Medicine 12/20/21 documented as of this encounter
--- OUTSIDE RECORDS SUMMARY | 2023-10-16 03:14 | XMS_ITS | Encounter Summary ---
Author Organization [facility] Address [facility] [place] [address] Care Team Providers Care Traffic Supervisor Name Role Phone Nicolasa Valenzuela Primary Care Pro vider Encounter Details Date Type Department Care Team (Late st Contact Info) Description 03/21/2023 9:00 AM EST Office Visit Hematology/Oncology at [address] [phone] Thomas Branch MD [facility] DR HEMATOLOGY [place] [address] Fiordaliza Downing APRN [facility] [place] [address] Prostate cancer metastatic to multiple sites (Primary Dx); Right leg swelling; High risk medication use; Androgen deprivation therapy; Malignant neoplasm of prostate metastatic to bone; Cardiomyopathy, unspecified type; Encounter for chemotherapy management Social History Tobacco Use Types Packs/Day Years Used Date Smoking Tobacco: Never Smokeless Tobacco: Never Alcohol Use Standard Drinks/Week Comments Not Currently 0 (1 standard drink = 0.6 oz pur e alcohol) [facility] Utilities Answer Date Recorded In the past 12 months has [employer], gas, oil, or water company threatened [...] slept in a assisted (including now)? No 01/31/2023 Sex and Gender Information Value Date Recorded Sex Assigned at Not on file Gender Identity Not on file Sexual Orientation Not on file documented as of this encounter Last Filed Vital Signs Vital Sign Reading Time Taken Comments Blood Pressure 100/51 03/21/2023 8:41 AM EST Pulse 76 03/21/2023 8:41 AM EST Temperature 36 ??C (96.8 ??F) 03/21/2023 8:41 AM EST Respiratory Rate 16 03/21/2023 8:41 AM EST Oxygen Saturation 95% 03/21/2023 8:41 AM EST Inhaled Oxygen Concentration - - Weight 88.5 kg (195 lb) 03/21/2023 8:41 AM EST Height 178.4 cm (5' 10.24) 03/21/2023 8:[address] Body Mass Index 27.79 03/21/2023 8:41 AM EST documented in this encounter Progress Notes * Thomas Branch MD - 03/21/2023 9:00 AM EST ONCOLOGY FOLLOW UP ONCOLOGY SUMMARY: 1. Metastatic [...] Abiraterone with Pred added 11/17/2022 Interval history:Huber Brent Keys is in clinic for follow-up on metastatic prostate cancer and docetaxel toxicity check.. He received 2 cycles of Taxotere. Took preemptively Claritin so he will have back pain after injection of Neulasta. Developed swelling of right leg which make more difficult for him to ambulate. Complains of mild increase in shortness of breath. No other focal complaints. REVIEW OF SYSTEMS: As in interval history PAST MEDICAL HISTORY: No interval changes since last visit Cardiomyopathy, T2DM, HLD, hypothyroidism, CKD for which he follows with his PCP MEDS: Medications 03/21/23 0844 Medication Sig Taking? tamsulosin (Flomax) 0.4 mg capsule Take 0.4 mg by mouth daily. Yes levothyroxine (Synthroid) 150 mcg tablet Take 150 mcg by mouth daily. Yes HYDROcodone-acetaminophen (Hassell) 5-325 mg tablet Take 1 tablet by mouth every 6 hours as needed for Pain. Yes atorvastatin (Lipitor) 40 mg tablet Take 1 tablet by mouth daily. Yes cholecalciferol (Vitamin D3) 1,000 unit tablet Take 1 tablet by mouth daily. Yes Lantus Solostar U-100 Insulin 100 unit/mL (3 mL) pen Inject 8 Units subcutaneously daily. Yes acetaminophen (Tylenol) 325 mg tablet Take 650 mg by mouth daily as needed for Pain. darolutamide (Nubeqa) 300 mg tablet Take 2 tablets by mouth 2 times daily. Call clinic before starting medication Patient not taking: Reported on 02/06/2023 prochlorperazine (Compazine) 10 mg tablet Take 1 tablet by mouth every 6 hours as needed for Nausea. 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 He is here with his friend today who is a breast cancer survivor and runs a local support group. He lives in [place], [place]. 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 General: NAD Head: NCAT Eyes: Not icteric, not injected Neck: No palpable lymphadenopathy Chest: CTA Cardiac: RRR Abdomen: Soft, ND, NT, no palpable hepatosplenomegaly Extremities: 2+ RLE pitting edema, trace edema on the left lower extremity, non tender Skin: No rash noted Pathology: DIAGNOSIS A - Lymph node, biopsy: - Metastatic carcinoma, consistent with prostatic origin (see discussion) DISCUSSION Lymphoid tissue is not readily identified. LABS: 03/21/2023 sodium 136, potassium 4.8, BUN 41, [...] platelet count 330, ANC 3.76 PSA testosteron 02/28/23 28.9 <7 02/06/23 63.0 01/18/23 49.5 33 12/14/21 111 IMAGING STUDIES: 03/03/23 PSMA PET scan: IMPRESSION 1. PSMA [...] weeks with Neulasta support -02/13/2023 stopped abiraterone Huber Gordonclaritza diagnosed with de angélica metastatic prostate cancer [...] twice daily Efficacy was based on ARASENS ([id number]), a randomized, multicenter, double- blind, placebo-controlled clinical trial in 1306 patients with mHSPC. Patients were randomized to receive either darolutamide 600 mg orally twice daily plus docetaxel 75 mg/m2 intravenously administered every 3 weeks forup to 6 cycles or docetaxel plus placebo. All patients received a gonadotropin-releasing hormone analog concurrently or had a bilateral orchiectomy. The primary efficacy measure was overall survival (OS). Lruh-ed-nnps progression was an additional efficacy measure. Median OS was not reached (NR) (95% CI: NR, NR) in the darolutamide plus docetaxelarm and 48.9 months (95% CI: 44.4, NR) in docetaxel plus placebo arm (HR 0.68; 95% CI: 0.57, 0.80; p<0.0001). Treatment with darolutamide and docetaxel resulted in a statistically significant delay in rjku-vn-vocc progression (HR 0.79; 95% CI: 0.66, 0.95; [...] and hypocalcemia. The recommended darolutamide dose for mHSPC is 600 mg (two 300 mg tablets) [...] needed Will check echocardiogram given his cardiomyopathy. # Germline and somatic mutation testing: Has been referred to familial cancer program, will do 170 gene panel testing and MMR testing # Cardiomyopathy: Follows with Dr. Rudolph #Port placement: per patient request. Referral sent to [facility] which is more convenient for Bill. #CKD: Chronic, creatinine is elevated at 1.8 which is overall stable. Follows with PCP. Plan: Docetaxel 60 mg/m?? cycle #2 today VD US of right lower extremity today to rule out DVT Start darolutamide 600 mg twice daily when available 4. Echocardiogram 5. Next visit in 3 weeks CBC, CMP, PSA, testosterone and 4-th cycle of docetaxel THOMAS BRANCH MD All questions were answered and patient verbalized understanding and no further questions. documented in this encounter Plan of Treatment Upcoming Encounters Date Type Department Care Team (Late st Contact Info) Description 10/16/2023 2:30 PM EDT Office Visit Hematology/Oncology at [address] [phone] Fiordaliza Downing APRN [facility] [place] [address] 11/10/2023 9:00 AM EDT Appointment [place] [phone] Thomas Branch MD [facility] HEMATOLOG[place] [address] 11/21/2023 11:00 AM EDT Infusion Hematology Oncology at [address] [phone] 12/05/2023 1:30 PM EDT Office Visit Hematology/Oncology at [address] [phone] Thomas Branch MD [facility] HEMATOLOGY [place] [address] Fiordaliza Downing APRN [facility] [place] [address] 12/26/2023 9:00 AM EDT Appointment [place] [phone] Thomas Branch MD [facility] HEMATOLOGY [place] [address] 02/09/2024 8:00 AM EST Appointment [place] [phone] Thomas Branch MD [facility] HEMATOLOGY [place] [address] 03/18/2024 3:00 PM EST Office Visit Cardiology at [address] [phone] Sameer Rudolph MD [facility] [place] [address] 03/22/2024 9:00 AM EST Appointment [place] [phone] Thomas Branch MD [facility] HEMATOLOGY [place] [address] 08/23/2024 Hospital Encounter [place] [phone] True Juarez MD [facility] [place] [address] Scheduled Orders Name Type Priority Associated Diagnoses Orde r Schedule Specimen to Pathology Additional Testing Pathology/Cytolog y Routine Prostate cancer metastatic to multiple sites Ordered: 03/21/2023 US DVT Lower Extremity Limited Right Imaging Routine Right leg swelling Expected: 03/21/2023, Expires: 09/20/2023 Scheduled Procedures Name Priority Associated Diagnoses Date/Ti me CYSTO, STENT PLACEMENT (WRVU 2.82) Hydronephrosis with ureteral stricture, not elsewhere classified CYSTO, REMOVAL OF STENT, FOR EIGN BODY OR CALCULUS, SIMPLE (WRVU 2.81) Hydronephrosis with ureteral stricture, not elsewhere classified documented as of this encounter Visit Diagnoses Diagnosis Prostate cancer metastatic to multiple sites- Primary Malignant neoplasm of prostate Right leg swelling High risk medication use Encounter for long-term (current) use of other medications Androgen deprivation therapy Encounter for therapeutic drug monitoring Malignant neoplasm of prostate metastatic to bone Malignant neoplasm of prostate Cardiomyopathy, unspecified type Encounter for chemotherapy management documented in this encounter Care Teams Traffic Supervisor Relationship Specialty Start Date End Date Nicolasa Valenzuela PA [address] [place] [address] PCP - General Family Medicine 12/20/21 documented as of this encounter
--- OUTSIDE RECORDS SUMMARY | 2023-10-16 03:14 | XMS_ITS | Encounter Summary ---
Author Organization [facility] Address [facility] [place] [address] Care Team Providers Care It Security Analyst Name Role Phone Nicolasa Valenzuela Primary Care Pro vider Reason for Visit * Reason Onset Date Comments Follow-up 04/03/2023 Encounter Details Date Type Department Care Team (Late st Contact Info) Description 04/03/2023 Telephone Hematology/Oncology at [address] [phone] Pooja Joshua, RN Follow-up Social History Tobacco Use Types Packs/Day Years Used Date Smoking Tobacco: Never Smokeless Tobacco: Never Alcohol Use Standard Drinks/Week Comments Not Currently 0 (1 standard drink = 0.6 oz pur e alcohol) [facility] Utilities Answer Date Recorded In the past 12 months has [employer], gas, oil, or water [employer] threatened to shut off services in your [...] slept in a fci (including now)? No 01/31/2023 Sex and Gender Information Value Date Recorded Sex Assigned at Not on file Gender Identity Not on file Sexual Orientation Not on file documented as of this encounter Miscellaneous Notes * Telephone Encounter - Pooja Joshua RN - 04/03/2023 4:15 PM EST Call to Huber to check on status of SOB after starting furosemide, Huber reports his SOB is improved, he's been able to resume typical activities. He continues taking the furosemide. He continuesto have RLE pain and swelling, the pain is worst in his thigh. He states the pain is unchanged since the ultrasound. No change in pain with activity, no redness. He stopped the Nubeqa and his rash went away. documented in this encounter Plan of Treatment Upcoming Encounters Date Type Department Care Team (Late st Contact Info) Description 10/16/2023 2:30 PM EDT Office Visit Hematology/Oncology at [address] [phone] Fiordaliza Downing APRN [facility] [place] [address] 11/10/2023 9:00 AM EDT Appointment [place] [phone] Thomas Curtis MD [facility] [place] [address] 11/21/2023 11:00 AM EDT Infusion Hematology Oncology at [address] [phone] 12/05/2023 1:30 PM EDT Office Visit Hematology/Oncology at [address] [phone] Thomas Curtis MD [facility] [place] [address] Fiordaliza Downing APRN [facility] [place] [address] 12/26/2023 9:00 AM EDT Appointment [place] [address] Thomas Curtis MD [facility] [place] [address] 02/09/2024 8:00 AM EST Appointment [place] [address] Thomas Curtis MD [facility] [place] [address] 03/18/2024 3:00 PM EST Office Visit Cardiology at [address] [phone] Sameer Rudolph MD [facility] [place] [address] 03/22/2024 9:00 AM EST Appointment Nuclear [place] [phone] Thomas Curtis MD [facility] [place] [address] 08/23/2024 Hospital Encounter [place] [phone] True Juarez MD [facility] UROLOGY [place], [place] [phone] Scheduled Procedures Name Priority Associated Diagnoses Date/Ti me CYSTO, STENT PLACEMENT (WRVU 2.82) Hydronephrosis with ureteral stricture, not elsewhere classified CYSTO, REMOVAL OF STENT, FOR EIGN BODY OR CALCULUS, SIMPLE (WRVU 2.81) Hydronephrosis with ureteral stricture, not elsewhere classified documented as of this encounter Visit Diagnoses Not on filedocumented in this encounter Care Teams It Security Analyst Relationship Specialty Start Date End Date Nicolasa Valenzuela PA [address] [place] [address] PCP - General Family Medicine 12/20/21 documented as of this encounter
--- OUTSIDE RECORDS SUMMARY | 2023-10-16 03:14 | XMS_ITS | Encounter Summary ---
Author Organization [facility] Address [facility] [place] [address] Care Team Providers Care Automobile Radio Repairer Name Role Phone Nicolasa Valenzuela Primary Care Pro vider Encounter Details Date Type Department Care Team (Late st Contact Info) Description 04/07/2023 Telephone Hematology/Oncology at [address] [phone] Elisha Montoya Social History Tobacco [...] in a senior care (including now)? No 01/31/2023 Sex and Gender Information Value Date Recorded Sex Assigned at Not on file Gender Identity Not on file Sexual Orientation Not on file documented as of this encounter Miscellaneous Notes * Telephone Encounter - Elisha Montoya - 04/07/2023 10:50 AM EST Called Huber to let him know about upcoming appt and needing labs. Had to leave a message documented in this encounter Plan of Treatment Upcoming Encounters Date Type Department Care Team (Late st Contact Info) Description 10/16/2023 2:30 PM EDT Office Visit Hematology/Oncology at [address] [phone] Fiordaliza Downing APRN [facility] DR [place] [address] 11/10/2023 9:00 AM EDT Appointment [place] [address] Thomas Curtis MD [facility] HEMATOLOGY [place] [address] 11/21/2023 11:00 AM EDT Infusion Hematology Oncology at [address] [phone] 12/05/2023 1:30 PM EDT Office Visit Hematology/Oncology at [address] [phone] Thomas Curtis MD [facility] HEMATOLOGY [place] [address] Fiordaliza Downing APRN [facility] DR [place] [address] 12/26/2023 9:00 AM EDT Appointment [place] [phone] Thomas Curtis MD [facility] HEMATOLOGY [place] [address] 02/09/2024 8:00 AM EST Appointment [place] [phone] Thomas Curtis MD [facility] HEMATOLOGY [place] [address] 03/18/2024 3:00 PM EST Office Visit Cardiology at [address] [phone] Sameer Rudolph MD [facility] [place] [address] 03/22/2024 9:00 AM EST Appointment [place] [phone] Thomas Curtis MD [facility] HEMATOLOGY [place] [address] 08/23/2024 Hospital Encounter [place] [address] True Juarez MD [facility] [place] [address] Scheduled Procedures Name Priority Associated Diagnoses Date/Ti me CYSTO, STENT PLACEMENT (WRVU 2.82) Hydronephrosis with ureteral stricture, not elsewhere classified CYSTO, REMOVAL OF STENT, FOR EIGN BODY OR CALCULUS, SIMPLE (WRVU 2.81) Hydronephrosis with ureteral stricture, not elsewhere classified documented as of this encounter Visit Diagnoses Not on filedocumented in this encounter Care Teams Automobile Radio Repairer Relationship Specialty Start Date End Date Nicolasa Valenzuela PA [address] [place] [address] PCP - General Family Medicine 12/20/21 documented as of this encounter
--- OUTSIDE RECORDS SUMMARY | 2023-10-16 03:14 | XMS_ITS | Encounter Summary ---
Author Organization [facility] [place] [address] Care Team Providers Care Sheep Sticker Name Role Phone Nicolasa Valenzuela Primary Care Pro vider Encounter Details Date Type Department Care Team (Late st Contact Info) Description 03/24/2023 Telephone Hematology and [place]cology [place] [address] Lisa Greer, [facility] [place] [address] Social History Tobacco Use Types Packs/Day Years Used Date Smoking Tobacco: Never Smokeless Tobacco: Never Alcohol Use Standard Drinks/Week Comments Not Currently 0 (1 standard drink = 0.6 oz pur e alcohol) [facility] Utilities Answer Date Recorded In the past 12 months has Postmaster, gas, oil, or water [employer] threatened to shut off services in your [...] in a nursing home (including now)? No 01/31/2023 Sex and Gender Information Value Date Recorded Sex Assigned at Not on file Gender Identity Not on file Sexual Orientation Not on file documented as of this encounter Miscellaneous Notes * Telephone Encounter - Lisa Greer [facility] - 03/24/2023 4:30 PM EST This test result was discussed with the patient by phone. A copy of the test results have been scanned in the medical record and sent to [facility]. A summary of the results is provided below. Please beadvised that [place] law requires that all health care workers respect the confidentiality ofthis information and not pass it along to other health care providers, insurance companies, or individuals without the written permission of the patient. The Familial Cancer Program welcomes any questions about these matters. Our phone number is: [phone]. On 02/17/2023 Huber was seen for genetic counseling and subsequently underwent genetic testing for a hereditary predisposition to cancers in eight major organ systems including breast, gynecologic,gastrointestinal, endocrine, genitourinary, skin, brain/nervous system, sarcoma and hematologic. Following are the results of this test. Result: Sarabjit's CancerNext-Expanded Panel showed no mutation was detected. This means that Huber does notcarry a mutation in the genes detectable by this test. The following 77 genes were analyzed: AIP, ALK, APC, SEJAL, BAP1, BARD1, BLM, BMPR1A, BRCA1, BRCA2, BRIP1, CDC73, CDH1, CDK4, CDKN1B, CDKN2A, CHEK2, DICER1, FANCC, FH, FLCN, GALNT12, KIF1B, LZTR1, MAX, MEN1, MET, MLH1, MSH2, MSH6, MUTYH, NBN, NF1, NF2, NTHL1, PALB2, PHOX2B, PMS2, POT1, YJYEK5J, PTCH1, PTEN, RAD51C, RAD51D, RB1, RECQL, RET, SDHA, SDHAF2, SDHB, SDHC, SDHD, SMAD4, SMARCA4, SMARCB1, SMARCE1, STK11, SUFU, UVQY333, TP53, TSC1, TSC2, VHL and XRCC2 (sequencing and deletion/duplication); AXIN2, CTNNA1, EGFR, EGLN1, HOXB13, KIT, MITF, MSH3, PDGFRA, POLD1 and POLE (sequencing only); EPCAM and GREM1 (deletion/duplication only). Interpretation: This test did not identify an underlying genetic cause for the personal history of prostate cancer or family history of cancer. Possible explanations for this negative test result include: Huber's cancer and the cancer in his family may be due to non genetic, environmental causes. There could be a mutation in Huber's family that Huber did not inherit There could be mutations in other cancer genes not included in this test, or in genes yet to be discovered. There is a very small chance that a pathogenic variant/mutation could be missed due to limitations in the testing. Additional germline genetic testing for Huber is not recommended at this time. Screening Recommendations Based on genetic test results and personal and/or family history, we recommend: Prostate cancer screening Consideration of PSA and/or OFELIA screening starting at age 50, or as recommended by Huber's primary care provider. Colon cancer screening Baseline colorectal cancer screening starting by age 45-50 is important for everyone, regardless ofgenetic predisposition. Periodic colonoscopy screening as recommended by Huber's application programmer analyst. Skin cancer screening Skin cancer screening and sun protection are important for everyone, regardless of genetic predisposition. Consideration of routine dermatologic/skin exams, as recommended by Huber's primary care provideror wheat combine driver. documented in this encounter Plan of Treatment Upcoming Encounters Date Type Department Care Team (Late st Contact Info) Description 10/16/2023 2:30 PM EDT Office Visit Hematology/Oncology at [address] [phone] Fiordaliza Downing APRN [facility] [place] [address] 11/10/2023 9:00 AM EDT Appointment [place] [phone] Thomas Curtis MD [facility] [place] [address] 11/21/2023 11:00 AM EDT Infusion Hematology Oncology at [address] [phone] 12/05/2023 1:30 PM EDT Office Visit Hematology/Oncology at [address] [phone] Thomas Curtis MD [facility] [place] [address] Fiordaliza Downing APRN [facility] [place] [address] 12/26/2023 9:00 AM EDT Appointment [place] [phone] Thomas Curtis MD [facility] [place] [address] 02/09/2024 8:00 AM EST Appointment [place] [phone] Thomas Curtis MD [facility] [place] [address] 03/18/2024 3:00 PM EST Office Visit Cardiology at [address] [place] [phone] Sameer Rudolph MD [facility] [place] [address] 03/22/2024 9:00 AM EST Appointment [place] [phone] Thomas Curtis MD [facility] [place] [address] 08/23/2024 Hospital Encounter [place] [phone] True Juarez MD [facility] [place] [address] Scheduled Procedures Name Priority Associated Diagnoses Date/Ti me CYSTO, STENT PLACEMENT (WRVU 2.82) Hydronephrosis with ureteral stricture, not elsewhere classified CYSTO, REMOVAL OF STENT, FOR EIGN BODY OR CALCULUS, SIMPLE (WRVU 2.81) Hydronephrosis with ureteral stricture, not elsewhere classified documented as of this encounter Visit Diagnoses Not on filedocumented in this encounter Care Teams Sheep Sticker Relationship Specialty Start Date End Date Nicolasa Valenzuela PA [address] [place] [address] PCP - General Family Medicine 12/20/21 documented as of this encounter
--- OUTSIDE RECORDS SUMMARY | 2023-10-16 03:14 | XMS_ITS | Encounter Summary ---
Author Organization [facility] [place] [address] Care Team Providers Care Chemistry Technician Name Role Phone Nicolasa Valenzuela Primary Care Pro vider Reason for Visit * Reason Comments IV Access Port flush * Auth/Cert (Routine) Specialty Diagnoses / Procedures Referred By Toño mayorga Referred To Contact Diagnoses NSTEMI (non-ST elevated myocardial infarction) Diffuse ischemia Tha Jacobs MD [facility] [place] [address] [facility] Referral ID Status Reason Start Date Expiration Date Visits Re quested Visits Authorized [id number] 1 1 Encounter Details Date Type Department Care Team (Late st Contact Info) Description 04/11/2023 11:00 AM EST Infusion Hematology Oncology at [address] [phone] Prostate cancer metastatic to multiple [...] slept in a intermediate (including now)? No 01/31/2023 DH IPV Inpatient Questions Answer Date Recorded Prevent Contact with Others no 08/2023 Feels Threatened by Someone no 08/2023 Feels Unsafe at Home no 04/11/2023 Physical Signs of Abuse Present no 04/11/2023 Sex and Gender Information Value Date Recorded Sex Assigned at Not on file Gender Identity Not on file Sexual Orientation Not on file documented as of this encounter Progress Notes * Pooja Joshua RN - 04/11/2023 11:00 AM EST INFUSION THERAPY ADMINISTRATION NOTES DIAGNOSIS: Prostate REASON FOR VISIT: MEDIPORT FLUSH ONLY IV ACCESS: Mediport GAUGE: 19G BLOOD RETURN: yes ANY S/S OF INFECTION/EXTRAVASATIONS: no signs of IV complications observed IV FLUSHED WITH: 20cc NS IV DISCONTINUED: yes ASSESSMENT: Patient tolerated treatment well. PLAN: Return to clinic per routine. documented in this encounter Plan of Treatment Upcoming Encounters Date Type Department Care Team (Late st Contact Info) Description 10/16/2023 2:30 PM EDT Office Visit Hematology/Oncology at [address] [phone] Fiordaliza Downing APRN [facility] [place] [address] 11/10/2023 9:00 AM EDT Appointment [place] [address] Thomas Curtis MD [facility] [place] [address] 11/21/2023 11:00 AM EDT Infusion Hematology Oncology at [address] [phone] 12/05/2023 1:30 PM EDT Office Visit Hematology/Oncology at [address] [phone] Thomas Curtis MD [facility] [place] [address] Fiordaliza Downing APRN [facility] [place] [address] 12/26/2023 9:00 AM EDT Appointment [place] [address] Thomas Curtis MD [facility] [place] [address] 02/09/2024 8:00 AM EST Appointment [place] [phone] Thomas Curtis MD [facility] [place] [address] 03/18/2024 3:00 PM EST Office Visit Cardiology at [address] [place] [phone] Sameer Rudolph MD [facility] [place] [address] 03/22/2024 9:00 AM EST Appointment [place] [phone] Thomas Curtis MD [facility] [place] [address] 08/23/2024 Hospital Encounter [place] [phone] True Juarez MD [facility] [place] [address] Scheduled Procedures Name Priority Associated Diagnoses Date/Ti me CYSTO, STENT PLACEMENT (WRVU 2.82) Hydronephrosis with ureteral stricture, not elsewhere classified CYSTO, REMOVAL OF STENT, FOR EIGN BODY OR CALCULUS, SIMPLE (WRVU 2.81) Hydronephrosis with ureteral stricture, not elsewhere classified documented as of this encounter Visit Diagnoses Diagnosis Prostate cancer metastatic to multiple sites Malignant neoplasm of prostate documented in this encounter Care Teams Chemistry Technician Relationship Specialty Start Date End Date Nicolasa Valenzuela PA [address] [place] [address] PCP - General Family Medicine 12/20/21 documented as of this encounter
--- OUTSIDE RECORDS SUMMARY | 2023-10-16 03:14 | XMS_ITS | Encounter Summary ---
Author Organization [facility] [place] [address] Care Team Providers Care Shipping Lead Name Role Phone Nicolasa Valenzuela Primary Care Pro vider Reason for Visit * Reason Comments Chemotherapy Cycle 3, Day 1; Doce taxel * Treatment/Therapy Plan Authorization (Routine) - Closed Specialty Diagnoses / Procedures Referred By Contac t Referred To Contact Hematology and Oncology Diagnoses Prostate cancer metastatic to multiple sites High risk medication use Procedures TC DOCETAXEL, 1MG, INJECTION TC PEGFILGRASTIM, EXCLUDES BIOSIMILAR, 0.5 MG, INJ J9171 TAXOTERE J2506 NEULASTA ONPRO Thomas Curtis MD [address] [place] [address] [place] [address] Thomas Curtis MD [address] [place] [address] [place] [address] Referral ID Status Reason Start Date Expiration Date Visits Re quested Visits Authorized [id number] Closed 01/31/2023 01/31/2024 99 101 Encounter Details Date Type Department Care Team (Late st Contact Info) Description 03/21/2023 9:30 AM EST Infusion Hematology Oncology at [address] [phone] Prostate cancer metastatic to multiple sites; High risk medication use Social History Tobacco Use Types Packs/Day Years Used Date Smoking Tobacco: Never Smokeless Tobacco: Never Alcohol Use Standard Drinks/Week Comments Not Currently 0 (1 standard drink = 0.6 oz pur e alcohol) [facility] Utilities Answer Date Recorded In [...] as of this encounter Progress Notes * Radha Carmen RN - 03/21/2023 9:30 AM EST INFUSION THERAPY ADMINISTRATION NOTES DIAGNOSIS: prostate cancer CYCLE #: 3, Day 1; docetaxol REASON FOR VISIT: Chemotherapy SUBJECTIVE Huber Keys offers no complaints. OBJECTIVE LAB DATA: done today and adequate for treatment IV ACCESS: Port accessed at OSH; brisk blood return noted; Port flushed with 20ml of NS and de-accessed after infusion completed. Pre administration: Chemotherapy orders independently verified for drug name, route, and dosage per patient's height, weight and BSA by Radha Carmen, SHIVAM & onsite pharmacists REACTIONS (DESCRIPTION, TIME, INTERVENTION AND EFFECTIVENESS) none ASSESSMENT Huber Keys was awake, alert and tolerated treatment well. PLAN Return to clinic per routine. Neulasta for Day 2 to be given at [facility] oncology- confirmed apt for 1pm. documented in this encounter Plan of Treatment Upcoming Encounters Date Type Department Care Team (Late st Contact Info) Description 10/16/2023 2:30 PM EDT Office Visit Hematology/Oncology at [address] [phone] Fiordaliza Downing APRN [facility] [place] [address] 11/10/2023 9:00 AM EDT Appointment [place] [address] Thomas Curtis MD [facility] [place] [address] 11/21/2023 11:00 AM EDT Infusion Hematology Oncology at [address] [phone] 12/05/2023 1:30 PM EDT Office Visit Hematology/Oncology at [address] [phone] Thomas Curtis MD [facility] [place] [address] Fiordaliza Downing APRN [facility] [place] [address] 12/26/2023 9:00 AM EDT Appointment [place] [phone] Thomas Curtis MD [facility] [place] [address] 02/09/2024 8:00 AM EST Appointment [place] [phone] Thomas Curtis MD [facility] [place] [address] 03/18/2024 3:00 PM EST Office Visit Cardiology at [address] [phone] Sameer Rudolph MD [facility] [place] [address] 03/22/2024 9:00 AM EST Appointment [place] [phone] Thomas Curtis MD [facility] [place] [address] 08/23/2024 Hospital Encounter [place] [phone] True Juarez MD [facility] [place] [address] Scheduled Procedures Name Priority Associated Diagnoses Date/Ti [...] of other medications documented in this encounter Administered Medications Inactive Administered Medications - up to 3 most recent administrations Medication Order MAR Action Action Date Dose Rate Site dexAMETHasone (Decadron) (10 mg/mL) injection 10 mg 10 mg, Intravenous, ONCE, 1 dose, On Mon03/21/23 at 1130, Administer 60 minutes prior to DOCEtaxel Given 03/21/2023 11:27 AM EST 10 mg diphenhydrAMINE (Benadryl) capsule 50 mg 50 mg, Oral, ONCE, 1 dose, On Mon03/21/23 at 1130, Administer 60 minutes prior to DOCEtaxel, Routine Given 03/21/2023 11:27 AM EST 50 mg DOCEtaxeL (Taxotere) 120 mg in sodium chloride 0.9% Non-PVC 256 mL infusion 120 mg, Intravenous, ONCE, 1 dose, On Mon03/21/23 at 1230, Administer over 60 Minutes, Warning Vesicant/Irritant Medication , Should this infusion follow 3 Step Titration (Initial Dosing) or Standard Infusion? Initial: 3 Step Titration New Bag 03/21/2023 12:32 PM EST 120 mg 256 mL/hr famotidine (Pepcid) (10 mg/mL) injection 20 mg 20 mg, Intravenous, ONCE, 1 dose, On Mon03/21/23 at 1130, Administer 60 minutes prior to DOCEtaxel Given 03/21/2023 11:24 AM EST 20 mg sodium chloride 0.9 % (flush) (BD PosiFlush Normal Saline 0.9) flush 5-20 mL 5-20 mL, Intravenous, EVERY 1 MIN PRN, Starting on Mon03/21/23 at 1103, Until Mon03/21/23 at 1640, Line Care, Flush pertains to all indwelling lines. Flush per protocol found in the job aid using the link provided on this medication record. Refer to Intravenous (IV) Job Aid: Adult Flushing & Catheter Care (3801) job aid for additional information regarding guidelines and administration., Routine Given 03/21/2023 1:42 PM EST 20 mLs sodium chloride 0.9% infusion 100 mL/hr, Intravenous, CONTINUOUS, Starting on Mon03/21/23 at 1130, Until 1/16/24 at 1640 New Bag 03/21/2023 1:39 PM EST 100 mL/hr 100 mL/hr New Bag 03/21/2023 11:31 AM EST 100 mL/hr 100 mL/hr documented in this encounter Care Teams Shipping Lead Relationship Specialty Start Date End Date Nicolasa Valenzuela PA [address] [place] [address] PCP - General Family Medicine 12/20/21 documented as of this encounter
--- OUTSIDE RECORDS SUMMARY | 2023-10-16 03:14 | XMS_ITS | Encounter Summary ---
Author Organization [facility] [place] [address] Care Team Providers Care Renderer Name Role Phone Nicolasa Valenzuela Primary Care Pro vider Reason for Referral * Diagnostic Test (Routine) - Closed Specialty Diagnoses / Procedures Referred By Toño mayorga Referred To Contact Radiology Diagnoses Malignant neoplasm of prostate metastatic to bone Procedures NM PET CT PSMA Prostate (Illuccix) Thomas Curtis MD [facility] DR [place] [address] [place] [address] Referral ID Status Reason Start Date Expiration Date V isits Requested Visits Authorized [id number] Closed Specialty Service Requested 01/31/2023 07/31/2024 1 2 Reason for Visit * Diagnostic Test (Routine) - Closed Specialty Diagnoses / Procedures Referred By Toño mayorga Referred To Contact Radiology Diagnoses Malignant neoplasm of prostate metastatic to bone Procedures NM PET CT PSMA Prostate (Illuccix) Thomas Curtis MD [facility] DR [place] [address] [place] [address] Referral ID Status Reason Start Date Expiration Date V isits Requested Visits Authorized [id number] Closed Specialty Service Requested 01/31/2023 07/31/2024 1 2 Encounter Details Date Type Department Care Team (Latest Contact Info) Description 03/03/2023 9:55 AM EST Hospital Encounter Nuclear Medicine at [facility] [place] [address] Thomas Curtis MD [facility] DR [place] [address] Malignant neoplasm of prostate metastatic to bone Discharge Disposition: Home Social History Tobacco Use Types Packs/Day Years Used Date Smoking Tobacco: Never Smokeless Tobacco: Never Alcohol Use Standard Drinks/Week Comments Not Currently 0 (1 standard drink = 0.6 oz pur e alcohol) [facility] Utilities Answer Date Recorded In the past 12 months has th e Xtium, gas, oil, or water [employer] threatened to shut off services in your [...] slept in a detention (including now)? No 01/31/2023 Sex and Gender [...] 150 mcg by mouth daily. HYDROcodone-acetami nophen ([place]) 5-325 mg tablet Take 1 tablet by [...] PM EDT Office Visit Hematology/Oncology at [address] [phone] Fiordaliza Downing APRN [facility] [place] [address] 11/10/2023 9:00 AM EDT Appointment [place] [address] Thomas Curtis MD [facility] [place] [address] 11/21/2023 11:00 AM EDT Infusion Hematology Oncology at [address] [phone] 12/05/2023 1:30 PM EDT Office Visit Hematology/Oncology at [address] [phone] Thomas Curtis MD [facility] [place] [address] Fiordaliza Downing APRN [facility] [place] [address] 12/26/2023 9:00 AM EDT Appointment [place] [address] Thomas Curtis MD [facility] [place] [address] 02/09/2024 8:00 AM EST Appointment [place] [address] Thomas Curtis MD [facility] [place] [address] 03/18/2024 3:00 PM EST Office Visit Cardiology at [address] [phone] Sameer Rudolph MD [facility] [place] [address] 03/22/2024 9:00 AM EST Appointment [place] [address] Thomas Curtis MD [facility] [place] [address] 08/23/2024 Hospital Encounter [place] [address] True Juarez MD [facility] [place] [address] Scheduled Procedures Name Priority Associated [...] Thank you for referring this patient to [facility]. Thank you for letting us participate in the care of this patient. ??If you are a health care provider and have any questions regarding this report, please contact the number below. ??For patients who have questions please contact the health career placement services counselor that requested your imaging first. ? Electronically signed by: Beck Gilmore MD, [facility] ([phone]), at 03/08/2023 3:09 PM Narrative 03/08/2023 3:09 PM EST EXAMINATION: NM [...] Thank you for referring this patient to [facility]. Thank you for letting us participate in the care of this patient. If youare a health care provider and have any questions regarding this report,please contact the number below. For patients who have questions please contactthe health career placement services counselor that requested your imaging first. Thomas Curtis MD IMG PET ORDERABLES documented in this encounter Visit Diagnoses Diagnosis Malignant neoplasm of prostate metastatic to bone Malignant neoplasm of prostate documented in this encounter Administered Medications Inactive Administered Medications - up to 3 most recent administrations Medication Order MAR Action Action Date Dose Rate Site Ga 68 psma-11 (Illuccix) injection 4-10 mCi 4-10 mCi, Intravenous, ONCE, 1 dose, On Mon03/03/23 at 1030, Radiology Contrast, Routine Given 03/03/2023 10:30 AM EST 5.7 mCi Righ t Arm documented in this encounter Care Teams Renderer Relationship Specialty Start Date End Date Nicolasa Valenzuela PA [address] [place] [address] PCP - General Family Medicine 12/20/21 documented as of this encounter
--- OUTSIDE RECORDS SUMMARY | 2023-10-16 03:14 | XMS_ITS | Encounter Summary ---
Author Organization [facility] [place] [address] Care Team Providers Care Lead Advisor Name Role Phone Nicolasa Valenzuela Primary Care Pro vider Reason for Visit * Reason Comments Injections * Treatment/Therapy Plan Authorization (Routine) - Closed Specialty Diagnoses / Procedures Referred By Toño mayorga Referred To Contact Hematology and Oncology Diagnoses Prostate cancer metastatic to multiple sites High risk medication use Procedures TC DOCETAXEL, 1MG, INJECTION TC PEGFILGRASTIM, EXCLUDES BIOSIMILAR, 0.5 MG, INJ [id number] TAXOTERE [id number] NEULASTA ONPRO Thomas Curtis MD [address] [place] [address] DR HEMATOLOGY [place] [address] Thomas Curtis MD [address] [place] [address] DR HEMATOLOGY [place] [address] Referral ID Status Reason Start Date Expiration Date Visits Re quested Visits Authorized [id number] Closed 01/31/2023 01/31/2024 99 [phone] Encounter Details Date Type Department Care Team (Late st Contact Info) Description 03/01/2023 1:30 PM EST Infusion Hematology Oncology at [address] [phone] Prostate cancer metastatic to multiple sites; High risk medication use Social History Tobacco Use Types Packs/Day Years Used Date Smoking Tobacco: Never Smokeless Tobacco: Never Alcohol Use Standard Drinks/Week Comments Not Currently 0 (1 standard drink = 0.6 oz pur e alcohol) [facility] Utilities Answer Date Recorded In the [...] money to buy more. Never true 02/01/20 Within the past 12 months, t he [...] Sign Reading Time Taken Comments Blood Pressure 97/44 03/01/2023 2:23 PM EST Pulse 67 03/01/2023 2:23 PM EST Temperature 36.4 ??C (97.5 ??F) 03/01/2023 2:23 PM ES T Respiratory Rate 18 03/01/2023 2:23 PM EST Oxygen Saturation 100% 03/01/2023 2:23 PM EST Inhaled Oxygen Concentration - - Weight 83.2 kg (183 lb 6.4 oz) 03/01/2023 2:23 P M EST Height 178.4 cm (5' 10.24) 03/01/2023 2:[address] Body Mass Index 26.14 03/01/2023 2:23 PM EST documented in this encounter Progress Notes * Eve Escamilla, RN - 03/01/2023 1:30 PM EST Infusion Note Diagnosis: Treatment: Neulasta Injection as onpro fell off when ran into wall at 1am. Neulasta 6mg injected in Left arm. Patient aware to call clinic with any questions or concerns. Plan: Return to clinic as scheduled.Infusion Note documented in this encounter Plan of Treatment Upcoming Encounters Date Type Department Care Team (Late st Contact Info) Description 10/16/2023 2:30 PM EDT Office Visit Hematology/Oncology at [address] [phone] Fiordaliza Downing APRN [facility] [place] [address] 11/10/2023 9:00 AM EDT App[place] [address] Thomas Curtis MD [facility] HEMATOLOGY [place] [address] 11/21/2023 11:00 AM EDT Infusion Hematology Oncology at [address] [phone] 12/05/2023 1:30 PM EDT Office Visit Hematology/Oncology at [address] [phone] Thomas Curtis MD [facility] HEMATOLOGY [place] [address] Fiordaliza Downing APRN [facility] [place] [address] 12/26/2023 9:00 AM EDT Appointment Nuclear Medicine at [place] [phone] Thomas Curtis MD [facility] HEMATOLOGY [place] [address] 02/09/2024 8:00 AM EST Appointment [place] [phone] Thomas Curtis MD [facility] HEMATOLOGY [place] [address] 03/18/2024 3:00 PM EST Office Visit Cardiology at [address] [phone] Sameer Rudolph MD [facility] [place] [address] 03/22/2024 9:00 AM EST Appointment [place] [phone] Thomas Curtis MD [facility] HEMATOLOGY [place] [address] 08/23/2024 Hospital Encounter [place] [phone] True Juarez MD [facility] [place] [address] Scheduled Procedures Name Priority Associated Diagnoses Date/Ti [...] MAR Action Action Date Dose Rate Site pegfilgrastim-jmdb (Fulphila) (6 mg/0.6 mL) injection syringe 6 mg 6 mg, Subcutaneous, ONCE, 1 dose, On Mon03/01/23 at 1445, Bring to room temperature 15-30 mins before administration., Routine, This agent is restricted to outpatient use. Is this drug being given as an outpatient? Yes Given 03/01/2023 3:04 PM EST 6 mg Le ft Arm documented in this encounter Care Teams Lead Advisor Relationship Specialty Start Date End Date Nicolasa Valenzuela PA [address] [place] [address] PCP - General Family Medicine 12/20/21 documented as of this encounter
--- OUTSIDE RECORDS SUMMARY | 2023-10-16 03:14 | XMS_ITS | Encounter Summary ---
Author Organization [facility] Address [facility] [place] [address] Care Team Providers Care Prospecting Driller Helper Name Role Phone Nicolasa Valenzuela Primary Care Pro vider Reason for Visit * Reason Onset Date Comments Follow-up 03/28/2023 Re RLE edema Encounter Details Date Type Department Care Team (Late st Contact Info) Description 03/28/2023 Telephone Hematology/Oncology at [address] [phone] Alexsandra Maurice RN Follow-up (Re RLE edema) Social History Tobacco Use Types Packs/Day Years Used Date Smoking Tobacco: Never Smokeless Tobacco: Never Alcohol Use Standard Drinks/Week Comments Not Currently 0 (1 standard drink = 0.6 oz pur e alcohol) [facility] Utilities Answer Date Recorded In the past 12 months has [employer], gas, oil, or water [employer] threatened to shut off services in [...] slept in a snf (including now)? No 01/31/2023 Sex and Gender Information Value Date Recorded Sex Assigned at Not on file Gender Identity Not on file Sexual Orientation Not on file documented as of this encounter Miscellaneous Notes * Telephone Encounter - Alexsandra Maurice RN - 03/28/2023 1:19 PM EST Huber Keys called back with symptoms to report. He reports rash at Neulasta injection site and on lower back, rash is reddened and raised bumpy, and only occasionally itchy. He will try benadryl and/or cortisone cream to see is this helps. He is also more SOB with any exertion, even simple tasks. He noticed this starting last after Docetaxel infusion 03/21 . Denies any cough, no chest pain or fevers. His HGB was 9.5 when he received Docetaxel and we discussed SOB common with anemia. Reviewed with provider who advises pt hold his Nubequa. Made him aware provider is goingto reach out to Dr Rudolph as we would like him to evaluate pt to see if it is safe to continue chemo therapy/restart Nubeqa. Pt is going to [facility] tomorrow for ECHO. He is in agreement with hold Nubequa until we review echo with Dr Rudolph. He will call if the rash symptoms do not improve. He was thankful for the follow up. * Telephone Encounter - Alexsandra Maurice RN - 03/28/2023 9:03 AM EST Called and spoke with Huber Keys who started lasix 20 mg BID last week for RLE edema. He reports the RLE swelling is reducing. The RLE is still more edematous than LLE. Said he has lost weight also, was 198lbs now 189lbs. He reports itching in BLE and is using lotion. Denies any redness or warmth. Described muscular pain when walking. Advised I would review with his provider and call back with any changes to current regimen. He was thankful for the follow up. ----- Message from Cara Pham RN sent at 03/21/2023 4:02 PM EST ----- Regarding: call pt Call pt and check on right leg swelling he was started on furosemide on 03/21/23, review with jesica love documented in this encounter Plan of Treatment Upcoming Encounters Date Type Department Care Team (Late st Contact Info) Description 10/16/2023 2:30 PM EDT Office Visit Hematology/Oncology at [address] [phone] Fiordaliza Downing APRN [facility] [place] [address] 11/10/2023 9:00 AM EDT Appointment [place] [address] Thomas Curtis MD [facility] [place] [address] 11/21/2023 11:00 AM EDT Infusion Hematology Oncology at [address] [phone] 12/05/2023 1:30 PM EDT Office Visit Hematology/Oncology at [address] [phone] Thomas Curtis MD [facility] H[place]ATOLOGY [place] [address] Fiordaliza Downing APRN [facility] [place] [address] 12/26/2023 9:00 AM EDT Appointment [place] [phone] Thomas Curtis MD [facility] [place]ATOLOG[place] [address] 02/09/2024 8:00 AM EST Appointment [place] [phone] Thomas Curtis MD [facility] H[place]ATOLOGY [place] [address] 03/18/2024 3:00 PM EST Office Visit Cardiology at [address] [phone] Sameer Rudolph MD [facility] [place] [address] 03/22/2024 9:00 AM EST Appointment [place] [phone] Thomas Curtis MD [facility] HEMATOLOGY [place] [address] 08/23/2024 Hospital Encounter [place] [phone] True Juarez MD [facility] [place] [address] Scheduled Procedures Name Priority Associated Diagnoses Date/Ti me CYSTO, STENT PLACEMENT (WRVU 2.82) Hydronephrosis with ureteral stricture, not elsewhere classified CYSTO, REMOVAL OF STENT, FOR EIGN BODY OR CALCULUS, SIMPLE (WRVU 2.81) Hydronephrosis with ureteral stricture, not elsewhere classified documented as of this encounter Visit Diagnoses Not on filedocumented in this encounter Care Teams Prospecting Driller Helper Relationship Specialty Start Date End Date Nicolasa Valenzuela PA [address] [place] Uriarte [facility] [address] PCP - General Family Medicine 12/20/21 documented as of this encounter
--- OUTSIDE RECORDS SUMMARY | 2023-10-16 03:14 | XMS_ITS | Encounter Summary ---
Author Organization [facility] Address [facility] [place] [address] Care Team Providers Care Dominatrix Name Role Phone Nicolasa Valenzuela Primary Care Pro vider Encounter Details Date Type Department Care Team (Late st Contact Info) Description 03/13/2023 Orders Only Hematology/Oncology at [address] [phone] Fiordaliza Downing APRN [facility] [place] [address] Social History Tobacco Use Types Packs/Day Years Used Date Smoking Tobacco: Never Smokeless Tobacco: Never Alcohol Use Standard Drinks/Week Comments Not Currently 0 (1 standard drink = 0.6 oz pur e alcohol) [facility] Utilities Answer Date Recorded In the past 12 months has [employer], gas, oil, or water [employer] threatened to shut off services in your [...] in a skilled nursing (including now)? No 01/31/2023 Sex and Gender Information Value Date Recorded Sex Assigned at Not on file Gender Identity Not on file Sexual Orientation Not on file documented as of this encounter Plan of Treatment Upcoming Encounters Date Type Department Care Team (Late st Contact Info) Description 10/16/2023 2:30 PM EDT Office Visit Hematology/Oncology at [address] [phone] Fiordaliza Downing APRN [facility] [place] [address] 11/10/2023 9:00 AM EDT Appointment [place] [address] Thomas Curtis MD [facility] DR HEMATOLOGY [place] [address] 11/21/2023 11:00 AM EDT Infusion Hematology Oncology at [address] [phone] 12/05/2023 1:30 PM EDT Office Visit Hematology/Oncology at [address] [phone] Thomas Curtis MD [facility] HEMATOLOGY [place] [address] Fiordaliza Downing APRN [facility] [place] [address] 12/26/2023 9:00 AM EDT Appointment Nuclear Medicine at [place] [phone] Thomas Curtis MD [facility] HEMATOLOGY [place] [address] 02/09/2024 8:00 AM EST Appointment Nuclear Medicine at [place] [phone] Thomas Curtis MD [facility] HEMATOLOGY [place] [address] 03/18/2024 3:00 PM EST Office Visit Cardiology at [address] [phone] Sameer Rudolph MD [facility] [place] [place] [address] 03/22/2024 9:00 AM EST Appointment Nuclear Medicine at [place] [phone] Thomas Curtis MD [facility] HEMATOLOGY [place] [address] 08/23/2024 Hospital Encounter [place] [address] True Juarez MD [facility] [place] [address] Scheduled Procedures Name Priority Associated Diagnoses Date/Ti me CYSTO, STENT PLACEMENT (WRVU 2.82) Hydronephrosis with ureteral stricture, not elsewhere classified CYSTO, REMOVAL OF STENT, FOR EIGN BODY OR CALCULUS, SIMPLE (WRVU 2.81) Hydronephrosis with ureteral stricture, not elsewhere classified documented as of this encounter Visit Diagnoses Not on filedocumented in this encounter Care Teams Dominatrix Relationship Specialty Start Date End Date Nicolasa Valenzuela PA [address] [place] [address] PCP - General Family Medicine 12/20/21 documented as of this encounter
--- OUTSIDE RECORDS SUMMARY | 2023-10-16 03:14 | XMS_ITS | Encounter Summary ---
Author Organization [facility] Address [facility] [place] [address] Care Team Providers Care Funeral Professional Name Role Phone Nicolasa Valenzuela Primary Care Pro vider Encounter Details Date Type Department Care Team (Late st Contact Info) Description 03/28/2023 Notes Only Hematology Oncology at [address] [phone] Chelsea Mccoy, RN Social History Tobacco Use Types Packs/Day Years Used Date Smoking Tobacco: Never Smokeless Tobacco: Never Alcohol Use Standard Drinks/Week Comments Not Currently 0 (1 standard drink = 0.6 oz pur e alcohol) [facility] Utilities Answer Date Recorded In the [...] as of this encounter Progress Notes * Chelsea Mccoy RN - 03/28/2023 12:11 PM EST [facility] On[facility] Triage Note Reason for Call: Pt called stating he has a rash around his Neulasta injection site that has spread to his back. States the rash started a few days ago. He received Neulasta on 03/22/23 at [facility] and his docetaxel the day prior on 03/21/23. He states that he has also been having mild SOB on exertion. I advised pt to call [facility] triage line as he receives his Chemo infusions at [facility] and this could potentially veronica reaction to his chemo. I also spoke to Elisha on the triage line and informed her that Mr. Keys would be reaching out. I advised him to go to the ED if he develops any chest pain or the SOB worsens. He verbalized understanding and stated he would call [facility] triage line once off the phone with this RN. documented in this encounter Plan of Treatment Upcoming Encounters Date Type Department Care Team (Late st Contact Info) Description 10/16/2023 2:30 PM EDT Office Visit Hematology/Oncology at [address] [phone] Fiordaliza Downing APRN [facility] [address] 11/10/2023 9:00 AM EDT Appointment [place] [address] Thomas Curtis MD [facility] [place] [address] 11/21/2023 11:00 AM EDT Infusion Hematology Oncology at [address] [phone] 12/05/2023 1:30 PM EDT Office Visit Hematology/Oncology at [address] [phone] Thomas Curtis MD [facility] [place] [address] Fiordaliza Downing [employer] [facility] [address] 12/26/2023 9:00 AM EDT Appointment [place] [address] Thomas Curtis MD [facility] [place] [address] 02/09/2024 8:00 AM EST Appointment [place] [phone] Thomas Curtis MD [facility] [place] [address] 03/18/2024 3:00 PM EST Office Visit Cardiology at [address] [phone] Sameer Rudolph MD [facility] [place] [address] 03/22/2024 9:00 AM EST Appointment Nuclear Medicine at [place] [phone] Thomas Curtis MD [facility] [place] [address] 08/23/2024 Hospital Encounter Main Operating Room [place] [phone] True Juarez MD [facility] [place] [address] Scheduled Procedures Name Priority Associated Diagnoses Date/Ti me CYSTO, STENT PLACEMENT (WRVU 2.82) Hydronephrosis with ureteral stricture, not elsewhere classified CYSTO, REMOVAL OF STENT, FOR EIGN BODY OR CALCULUS, SIMPLE (WRVU 2.81) Hydronephrosis with ureteral stricture, not elsewhere classified documented as of this encounter Visit Diagnoses Not on filedocumented in this encounter Care Teams Funeral Professional Relationship Specialty Start Date End Date Nicolasa Valenzuela PA [address] [address] PCP - General Family Medicine 12/20/21 documented as of this encounter
--- OUTSIDE RECORDS SUMMARY | 2023-10-16 03:14 | XMS_ITS | Encounter Summary ---
Author Organization [facility] Address [facility] [place] [address] Care Team Providers Care Mushroom Cutter Name Role Phone Nicolasa Valenzuela Primary Care Pro vider Encounter Details Date Type Department Care Team (Latest Contact Info) Description 04/11/2023 Travel Social History Tobacco Use Types Packs/Day Years Used Date Smoking Tobacco: Never Smokeless Tobacco: Never Alcohol Use Standard Drinks/Week Comments Not Currently 0 (1 standard drink = 0.6 oz pur e alcohol) [facility] Utilities Answer Date Recorded In the past 12 months has e electric, gas, oil, or water [employer] threatened to shut off services in your [...] 2:30 PM EDT Office Visit Hematology/Oncology at [address] [phone] Fiordaliza Downing APRN [facility] [place] [address] 11/10/2023 9:00 AM EDT Appointment [place] [address] Thomas Curtis MD [facility] HEMATOLOGY [place] [address] 11/21/2023 11:00 AM EDT Infusion Hematology Oncology at [address] [phone] 12/05/2023 1:30 PM EDT Office Visit Hematology/Oncology at [address] [phone] Thomas Curtis MD [facility] HEMATOLOGY [place] [address] Fiordaliza Downing APRN [facility] DR [place]ICAL [place] [address] 12/26/2023 9:00 AM EDT Appointment [place] [phone] Thomas Curtis MD [facility] HEMATOLOGY [place] [address] 02/09/2024 8:00 AM EST Appointment [place] [phone] Thomas Curtis MD [facility] HEMATOLOGY [place] [address] 03/18/2024 3:00 PM EST Office Visit Cardiology at [address] [phone] Sameer Rudolph MD [facility] [place] [address] 03/22/2024 9:00 AM EST Appointment [place] [phone] Thomas Curtis MD [facility] HEMATOLOGY [place] [address] 08/23/2024 Hospital Encounter [place] [phone] True Juarez MD [facility] [place] [address] Scheduled Procedures Name Priority Associated Diagnoses Date/Ti me CYSTO, STENT PLACEMENT (WRVU 2.82) Hydronephrosis with ureteral stricture, not elsewhere classified CYSTO, REMOVAL OF STENT, FOR EIGN BODY OR CALCULUS, SIMPLE (WRVU 2.81) Hydronephrosis with ureteral stricture, not elsewhere classified documented as of this encounter Visit Diagnoses Not on filedocumented in this encounter Care Teams Mushroom Cutter Relationship Specialty Start Date End Date Nicolasa Valenzuela PA [address] [place] Uriarte [facility] [place] [address] PCP - General Family Medicine 12/20/21 documented as of this encounter
--- OUTSIDE RECORDS SUMMARY | 2023-10-16 03:14 | XMS_ITS | Encounter Summary ---
Author Organization [facility] [place] [address] Care Team Providers Care Operations Director Name Role Phone Nicolasa Valenzuela Primary Care Pro vider Encounter Details Date Type Department Care Team (Late st Contact Info) Description 04/12/2023 Ancillary Procedure [place] [address] Tha Jacobs MD [facility] [place] [address] Social History Tobacco Use Types Packs/Day Years Used Date Smoking Tobacco: Never Smokeless Tobacco: Never Alcohol Use Standard Drinks/Week Comments Not Currently 0 (1 standard drink = 0.6 oz pur e alcohol) [facility] Utilities Answer Date Recorded In the past 12 months has [employer], gas, oil, or water [email or web address] threatened to shut off services in your [...] PM EDT Office Visit Hematology/Oncology at [address] [phone] Fiordaliza Downing APRN [facility] [place] [address] 11/10/2023 9:00 AM EDT Appointment [place] [phone] Thomas Curtis MD [facility] HEMATOLOGY [place] [address] 11/21/2023 11:00 AM EDT Infusion Hematology Oncology at [address] [phone] 12/05/2023 1:30 PM EDT Office Visit Hematology/Oncology at [address] [phone] Thomas Curtis MD [facility] HEMATOLOGY [place] [address] Fiordaliza Downing APRN [facility] [place] [address] 12/26/2023 9:00 AM EDT Appointment [place] [phone] Thomas Curtis MD [facility] HEMATOLOGY [place] [address] 02/09/2024 8:00 AM EST Appointment [place] [phone] Thomas Curtis MD [facility] HEMATOLOGY [place] [address] 03/18/2024 3:00 PM EST Office Visit Cardiology at [address] [place] [phone] Sameer Rudolph MD [facility] [place] [address] 03/22/2024 9:00 AM EST Appointment [place] [phone] Thomas Curtis MD [facility] HEMATOLOGY [place] [address] 08/23/2024 Hospital Encounter Main Operating Room [facility] [place] [address] True Juarez MD [facility] [place] [address] Scheduled Procedures Name Priority Associated Diagnoses Date/Ti [...] Comments FILM LIBRARY STORAGE ONLY CT CHEST Routine 04/12/2023 12:00 AM EST documented in this encounter Results * Film Library- Storage Only CT Chest (04/12/2023 12:00 AM EST) Narrative [facility] - 04/13/2023 1:15 AM EST This exam is auto-finalizing. It's purpose is for storage only. Tha Jacobs MD IMG FILM LIBRARY OR DERABLES [place], [place] documented in this encounter Visit Diagnoses Not on filedocumented in this encounter Care Teams Operations Director Relationship Specialty Start Date End Date Nicolasa Valenzuela PA [address] [place] [address] PCP - General Family Medicine 12/20/21 documented as of this encounter
--- OUTSIDE RECORDS SUMMARY | 2023-10-16 03:14 | XMS_ITS | Encounter Summary ---
Author Organization [facility] Address [facility] [place] [address] Care Team Providers Care Handbook Writer Name Role Phone Nicolasa Valenzuela Primary Care Pro vider Encounter Details Date Type Department Care Team (Late st Contact Info) Description 03/01/2023 Orders Only [place]ematology [place] [address] Thomas Curtis MD [facility] [place] [address] Social History Tobacco Use Types Packs/Day Years Used Date Smoking Tobacco: Never Smokeless Tobacco: Never Alcohol Use Standard Drinks/Week Comments Not Currently 0 (1 standard drink = 0.6 oz pur e alcohol) [facility] Utilities Answer Date Recorded In the past 12 months has [employer], gas, oil, or water [employer] threatened to shut off services in your [...] 2:30 PM EDT Office Visit Hematology/Oncology at [address] [phone] Fiordaliza Downing APRN [facility] [place] [address] 11/10/2023 9:00 AM EDT Appointment [place] [address] Thomas Curtis MD [facility] DR [place] [address] 11/21/2023 11:00 AM EDT Infusion Hematology Oncology at [address] [phone] 12/05/2023 1:30 PM EDT Office Visit Hematology/Oncology at [address] [phone] Thomas Curtis MD [facility] [place] [address] Fiordaliza Downing APRN [facility] [place] [address] 12/26/2023 9:00 AM EDT Appointment Nuclear Medicine at [place] [phone] Thomas Curtis MD [facility] [place] [address] 02/09/2024 8:00 AM EST Appointment Nuclear Medicine at [place] [phone] Thomas Curtis MD [facility] [place] [address] 03/18/2024 3:00 PM EST Office Visit Cardiology at [address] [phone] Sameer Rudolph MD [facility] [place] [address] 03/22/2024 9:00 AM EST Appointment Nuclear Medicine at [place] [phone] Thomas Curtis MD [facility] [place] [address] 08/23/2024 Hospital Encounter [place] [phone] True Juarez MD [facility] [place] [address] Scheduled Procedures Name Priority Associated Diagnoses Date/Ti me CYSTO, STENT PLACEMENT (WRVU 2.82) Hydronephrosis with ureteral stricture, not elsewhere classified CYSTO, REMOVAL OF STENT, FOR EIGN BODY OR CALCULUS, SIMPLE (WRVU 2.81) Hydronephrosis with ureteral stricture, not elsewhere classified documented as of this encounter Visit Diagnoses Not on filedocumented in this encounter Care Teams Handbook Writer Relationship Specialty Start Date End Date Nicolasa Valenzuela PA [address] [place] [address] PCP - General Family Medicine 12/20/21 documented as of this encounter
--- OUTSIDE RECORDS SUMMARY | 2023-10-16 03:14 | XMS_ITS | Encounter Summary ---
Author Organization [facility] Address [facility] [place] [address] Care Team Providers Care Therapy Tech Name Role Phone Nicolasa Valenzuela Primary Care Pro vider Encounter Details Date Type Department Care Team (Late st Contact Info) Description 03/30/2023 Telephone Cardiology at [address] [place] [phone] Sameer Rudolph MD [facility] [place] [address] Social History Tobacco Use Types Packs/Day Years Used Date Smoking Tobacco: Never Smokeless Tobacco: Never Alcohol Use Standard Drinks/Week Comments Not Currently 0 (1 standard drink = 0.6 oz pur e alcohol) [facility] Utilities Answer Date Recorded In the past 12 months has [employer], gas, oil, or water [employer] threatened to shut off services in your [...] slept in a halfway (including now)? No 01/31/2023 Sex and Gender Information Value Date Recorded Sex Assigned at Not on file Gender Identity Not on file Sexual Orientation Not on file documented as of this encounter Miscellaneous Notes * Telephone Encounter - Roxi Burleson, RN - 04/03/2023 3:52 PM EST Muriel Thanks for the message. His LVEF has been mildly reduced since , and before that was 27% in 09/2022. Agree with lasix administration. I dont see a cardiac contraindication to continuing chemotherapy. Sameer Rudolph * Telephone Encounter - Roxi Burleson, RN - 03/30/2023 4:56 PM EST Message taken from Elisha Montoya to have cardiology nurse call hem/onc provider Muriel Downing about thispatient. There was no pick up truck driver on [phone]. left for Muriel that if the communication about an echocardiogram performed at [facility] on 03/29/2023, the report complete by Dr. Minor Morales, and is scanned in the media tab of the [facility] chart. Please call back to [phone] during office hours for further discussion. Dr. Rudolph returns to this [facility] Cardiology clinic on Monday. Cc: Dr. Rudolph documented in this encounter Plan of Treatment Upcoming Encounters Date Type Department Care Team (Late st Contact Info) Description 10/16/2023 2:30 PM EDT Office Visit Hematology/Oncology at [address] [phone] Fiordaliza Downing APRN [facility] [place] [address] 11/10/2023 9:00 AM EDT Appointment [place] [address] Thomas Curtis MD [facility] [place] [address] 11/21/2023 11:00 AM EDT Infusion Hematology Oncology at [address] [phone] 12/05/2023 1:30 PM EDT Office Visit Hematology/Oncology at [address] [phone] Thomas Curtis MD [facility] [place] [address] Fiordaliza Downing APRN [facility] [place] [address] 12/26/2023 9:00 AM EDT Appointment [place] [phone] Thomas Curtis MD [facility] [place] [address] 02/09/2024 8:00 AM EST Appointment [place] [phone] Thomas Curtis MD [facility] [address] [place] [address] 03/18/2024 3:00 PM EST Office Visit Cardiology at [address] [place] [phone] Sameer Rudolph MD [facility] [place] [address] 03/22/2024 9:00 AM EST Appointment [place] [phone] Thomas Curtis MD [facility] [place] [address] 08/23/2024 Hospital Encounter [place] [phone] True Juarez MD [facility] [place] [address] Scheduled Procedures Name Priority Associated Diagnoses Date/Ti me CYSTO, STENT PLACEMENT (WRVU 2.82) Hydronephrosis with ureteral stricture, not elsewhere classified CYSTO, REMOVAL OF STENT, FOR EIGN BODY OR CALCULUS, SIMPLE (WRVU 2.81) Hydronephrosis with ureteral stricture, not elsewhere classified documented as of this encounter Visit Diagnoses Not on filedocumented in this encounter Care Teams Therapy Tech Relationship Specialty Start Date End Date Nicolasa Valenzuela PA [address] [place] [address] PCP - General Family Medicine 12/20/21 documented as of this encounter
--- OUTSIDE RECORDS SUMMARY | 2023-10-16 03:14 | XMS_ITS | Encounter Summary ---
Author Organization [facility] Address [facility] [place] [address] Care Team Providers Care Netting Weaver Name Role Phone Nicolasa Valenzuela Primary Care Pro vider Encounter Details Date Type Department Care Team (Late st Contact Info) Description 03/28/2023 Telephone Hematology/Oncology at [address] [phone] Elisha Montoya Social History Tobacco Use Types Packs/Day Years Used Date Smoking Tobacco: Never Smokeless Tobacco: Never Alcohol Use Standard Drinks/Week Comments Not Currently 0 (1 standard drink = 0.6 oz pur e alcohol) [facility] Utilities Answer Date Recorded In [...] * Telephone Encounter - Elisha Montoya - 03/28/2023 3:29 PM EST Request for echo was sent to [facility] on 03/22/23. I called today to see when heis scheduled for the echo. I had to leave a message documented in this encounter Plan of Treatment Upcoming Encounters Date Type Department Care Team (Late st Contact Info) Description 10/16/2023 2:30 PM EDT Office Visit Hematology/Oncology at [address] [phone] Fiordaliza Downing APRN [facility] [place] [address] 11/10/2023 9:00 AM EDT Appointment [place] [address] Thomas Curtis MD [facility] HEMATOLOGY [place] [address] 11/21/2023 11:00 AM EDT Infusion Hematology Oncology at [address] [phone] 12/05/2023 1:30 PM EDT Office Visit Hematology/Oncology at [address] [phone] Thomas Curtis MD [facility] HEMATOLOGY [place] [address] Fiordaliza Downing APRN [facility] [place] [address] 12/26/2023 9:00 AM EDT Appointment [place] [phone] Thomas Curtis MD [facility] HEMATOLOGY [place] [address] 02/09/2024 8:00 AM EST Appointment [place] [phone] Thomas Curtis MD [facility] HEMATOLOGY [place] [address] 03/18/2024 3:00 PM EST Office Visit Cardiology at [address] [place] [phone] Sameer Rudolph MD [facility] [place] [address] 03/22/2024 9:00 AM EST Appointment [place] [phone] Thomas Curtis MD [facility] HEMATOLOGY [place] [address] 08/23/2024 Hospital Encounter [place] [address] True Juarez MD [facility] [address] Scheduled Procedures Name Priority Associated Diagnoses Date/Ti me CYSTO, STENT PLACEMENT (WRVU 2.82) Hydronephrosis with ureteral stricture, not elsewhere classified CYSTO, REMOVAL OF STENT, FOR EIGN BODY OR CALCULUS, SIMPLE (WRVU 2.81) Hydronephrosis with ureteral stricture, not elsewhere classified documented as of this encounter Visit Diagnoses Not on filedocumented in this encounter Care Teams Netting Weaver Relationship Specialty Start Date End Date Nicolasa Valenzuela PA [address] [place] [address] PCP - General Family Medicine 12/20/21 documented as of this encounter
--- OUTSIDE RECORDS SUMMARY | 2023-10-16 03:14 | XMS_ITS | Encounter Summary ---
Author Organization [facility] Address [facility] [place] [address] Care Team Providers Care Engineer Technician Name Role Phone Nicolasa Valenzuela Primary Care Pro vider Encounter Details Date Type Department Care Team (Late st Contact Info) Description 03/22/2023 Telephone Hematology/Oncology at [address] [phone] Elisha Montoya Social History Tobacco Use Types Packs/Day Years Used Date Smoking Tobacco: Never Smokeless Tobacco: Never Alcohol Use Standard Drinks/Week Comments Not Currently 0 (1 standard drink = 0.6 oz pur e alcohol) [facility] Utilities Answer Date Recorded In the [...] * Telephone Encounter - Elisha Montoya - 03/22/2023 1:44 PM EST Called cardiology tryon to see if they got the new referral that I sent over. Dr. Curtis putcandice new one in to be done before appt in April. I had to leave a message. documented in this encounter Plan of Treatment Upcoming Encounters Date Type Department Care Team (Late st Contact Info) Description 10/16/2023 2:30 PM EDT Office Visit Hematology/Oncology at [address] [phone] Fiordaliza Downing APRN [facility] [place] [address] 11/10/2023 9:00 AM EDT Appointment [place] [phone] Thomas Curtis MD [facility] [place] [address] 11/21/2023 11:00 AM EDT Infusion Hematology Oncology at [address] [phone] 12/05/2023 1:30 PM EDT Office Visit Hematology/Oncology at [address] [phone] Thomas Curtis MD [facility] [place] [address] Fiordaliza Downing APRN [facility] [place] [address] 12/26/2023 9:00 AM EDT Appointment [place] [phone] Thomas Curtis MD [facility] [place] [address] 02/09/2024 8:00 AM EST Appointment [place] [phone] Thomas Curtis MD [facility] [place] [address] 03/18/2024 3:00 PM EST Office Visit Cardiology at [address] [place] [phone] Sameer Rudolph MD [facility] [place] [address] 03/22/2024 9:00 AM EST Appointment [place] [phone] Thomas Curtis MD [facility] [place] [address] 08/23/2024 Hospital Encounter Main Operating Room [facility] [place] [address] True Juarez MD [facility] [place] [address] Scheduled Procedures Name Priority Associated Diagnoses Date/Ti me CYSTO, STENT PLACEMENT (WRVU 2.82) Hydronephrosis with ureteral stricture, not elsewhere classified CYSTO, REMOVAL OF STENT, FOR EIGN BODY OR CALCULUS, SIMPLE (WRVU 2.81) Hydronephrosis with ureteral stricture, not elsewhere classified documented as of this encounter Visit Diagnoses Not on filedocumented in this encounter Care Teams Engineer Technician Relationship Specialty Start Date End Date Nicolasa Valenzuela PA [address] [place] [address] PCP - General Family Medicine 12/20/21 documented as of this encounter
--- OUTSIDE RECORDS SUMMARY | 2023-10-16 03:14 | XMS_ITS | Encounter Summary ---
Author Organization [facility] [place] [address] Care Team Providers Care Build And Release Manager Name Role Phone Nicolasa Valenzuela Primary Care Pro vider Reason for Visit * Reason Comments Patient Education Encounter Details Date Type Department Care Team (Late st Contact Info) Description 03/22/2023 Specialty [place] [address] Sarah Beth Maharaj, [facility] Social History Tobacco Use Types Packs/Day Years [...] Notes * Sarah Beth Maharaj RPH - 03/22/2023 3:01 PM EST Specialty Pharmacy Initial Consultation; Sarah Beth Maharaj RPH Comprehensive Medication Management (CMM) Huber Keys Diagnosis: 1. Prostate cancer metastatic to multiple sites Therapy Start Date: 03/25/23 Contact in person or via telephone: phone Mr. Huber Keys is a 67 y.o. (1955) male who was called today. I spoke with the patientregarding their specialty medication Nubeqa and a review of the drug therapy was performed. The medication was filled as scheduled, and all related questions and concerns were addressed. The specialty pharmacy staff will follow up with the patient 5-7 days prior to next refill. Is the patient willing to proceed with the Clinical Assessment? Yes Summary and Recommendations: Potential side effects such as N/V, hot flashes, fatigue, myalgia, edema, HOLLIS, rash, and cough reviewed with possible management strategies. The patient will start this after he gets a cardiac work upwith an echo. Medication list reviewed with no major interactions identified. The patient is aware of the importance of lab follow up and infection prevention precautions such as proper hand washing, appropriate vaccination, and wearing a mask during an illness. His CRCL remains stable at 47ml/min with all meds adjusted accordingly. The incidence of worsened CHD reported in the package insert forBrandona is less than it's predecessors as 4% however those cases were grade 3/4 ischemic disease. The importance of adherence to treatment and strategies to improve compliance including use of pill boxes, calendar reminders, or routine alarms was discussed. The patient was instructed to notify the clinic of any upcoming procedures or new medications and OTC products. Resources are available to thepatient from the cancer center from dieticians to community mental health social worker. Administration, allergies, dosage, safe storage away from pets or children, handling and disposal was reviewed. The pharmacy's contact information and operating hours on-call services were given to the patient verbally as well as inwriting. The medication will be mailed out as soon as possible. 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 No current outpatient medications on file. Facility-Administered Medications Ordered in Other Visits Medication Dose Route Frequency Provider Last Rate Last Admin senna-docusate (Pericolace) 8.6-50 mg per tablet 2 tablet 2 tablet Oral BID PRN Tomer Hernandez MD polyethylene glycoL (Miralax) packet 17 g 17 g Oral Daily PRN Tomer Hernandez MD clopidogreL (Plavix) tablet 75 mg 75 mg Oral Daily Tomer Hernandez MD lidocaine (Lidoderm) 5% patch 1 patch 1 patch Transdermal Daily Milli Maria MD 1 patch at 04/14/23 0408 HYDROmorphone (Dilaudid) tablet 1 mg 1 mg Oral Q6H PRN Milli Maria MD acetaminophen (Tylenol) tablet 650 mg 650 mg Oral Q6H PRN Milli Maria MD 650 mg at 04/14/23 0031 atorvastatin (Lipitor) tablet 40 mg 40 mg Oral Daily Milli Maria MD 40 mg at 04/18/23 1633 cholecalciferol (Vitamin D3) tablet 1,000 Units 1,000 Units Oral Daily Milli Maria MD 1,000 Units at 04/18/23 1633 levothyroxine (Synthroid) tablet 150 mcg 150 mcg Oral Daily Milli Maria MD 150 mcg at 04/18/23 1634 tamsulosin (Flomax) capsule 0.4 mg 0.4 mg Oral Daily Milli Maria MD 0.4 mg at 04/18/23 1634 aspirin chewable tablet 81 mg 81 mg Oral Daily Milli Maria MD 81 mg at 04/17/23 0806 glucose (Glutose) 40% oral geL 15-30 g of glucose Buccal Q15 Min PRN Milli Maria MD Or dextrose 10% infusion 250 mL Intravenous Q15 Min PRN Milli Maria MD Or glucagon (Glucagen) (1 mg/mL) injection solution 1 mg 1 mg Intramuscular Q15 Min PRN Milli Maria MD insulin lispro (HumaLOG;Admelog) (100 unit/mL) subcutaneous injection vial 1-4 Units 1-4 Units Subcutaneous Q4H [facility] Milli Maria MD 1 Units at 04/18/232032 insulin glargine-ygfn (Semglee) (100 unit/mL) subcutaneous injection vial 5 Units 5 Units Subcutaneous Daily Milli Maria MD 5 Units at 04/17/23 0809 sodium chloride 0.9 % (flush) (BD PosiFlush Normal Saline 0.9) flush 5 mL 5 mL Intravenous BID Milli Maria MD 5 mL at 04/18/232032 sodium chloride 0.9 % (flush) (BD PosiFlush Normal Saline 0.9) flush 5-20 mL 5- 20 mL Intravenous Q1Min PRN Milli Maria MD lidocaine (Xylocaine) 1% (10 mg/mL) injection 3 mg 0.3 mL Subcutaneous Once PRN Milli Maria MD nitroGLYcerin (Nitrostat) disintegrating tablet 0.4 mg 0.4 mg Sublingual Q5 Min PRN Milli Maria MD sodium chloride 0.9 % (flush) (BD PosiFlush Normal Saline 0.9) flush 10 mL 10 mL Intravenous Daily PRN Milli Maria MD Most Recent Vitals: Ht Readings from Last 1 Encounters: 04/13/23 179.1 cm (5' 10.5) Wt Readings from Last 3 Encounters: 04/18/23 83 kg (183 lb) 04/11/23 85.7 kg (189 lb) 03/21/23 88.5 kg (195 lb) Temp Readings from Last 3 Encounters: 04/18/23 37 ??C (98.6 ??F) (Oral) 04/11/23 36.2 ??C (97.1 ??F) (Temporal) 03/21/23 36 ??C (96.8 ??F) (Temporal) BP Readings from Last 3 Encounters: 04/18/23 103/48 04/11/23 91/56 03/21/23 100/51 Pulse Readings from Last 3 Encounters: 04/18/23 74 04/11/23 75 03/21/23 76 There is no height or weight on file to calculate BMI. Pertinent Lab values: Lab Results Component Value Date NA 137 04/18/2023 K 4.5 04/18/2023 CL 105 04/18/2023 CO2 20 (L) 04/18/2023 BUN 30 (H) 04/18/2023 CREATININE 1.58 (H) 04/18/2023 GLUCOSE 150 04/18/2023 CALCIUM 9.4 04/18/2023 Lab Results Component Value Date ALT 10 04/13/2023 AST 27 04/13/2023 ALKPHOS 53 04/13/2023 BILITOT 0.3 04/13/2023 BILIDIR 0.1 04/13/2023 ALBUMIN 3.4 04/13/2023 PROT 5.8 (L) 04/13/2023 Lab Results Component Value Date WBC 4.2 04/18/2023 HGB 9.0 (L) 04/18/2023 HCT 27.1 (L) 04/18/2023 MCV 93.1 04/18/2023 PLATELET 321 04/18/2023 Lab Results Component Value Date HA1C 8.0 (H) 04/13/2023 There is no immunization history on file for this patient. Assessment and Recommendations: Patient Counseling Patient informed of specialty services: Yes Patient accepted offer to commercial counsel: adherence/missed doses, cost of medications/cost implications, doses and administration, possible drug/OTC drug and food interactions, possible adverse side effects and management, pharmacy contact information, lab monitoring/follow up, possible drug/Rx drug interactions, safe handling, storage, and disposal Medication Management Summary Topics discussed: medication safety precautions education provided, safe handling, storage, and disposal discussed, adherence and missed doses discussed Number of adverse drug events identified: 0 Time spent: 16-30 min Treatment Outcomes 04/19/2023 0126 Disease progression: Stable Effectiveness of therapy, reported improvements: No Change Treatment Goals: Have completely been met Treatment Failures: Sucessfull Treatment no Failures Patient Overall Status: Stable Reviewed in detail with patient: Dose appropriateness based on recommended standard dosing Current medication list including OTC medications Medication and disease problems Allergies Comorbid conditions/ Problem List Past adverse events if any Special needs of the patient including physical and cognitive limitations Goals of therapy and management strategies Warnings, precautions, and contraindications Side effects Drug-drug and drug-food interactions Administration instructions including dose, frequency and method Handling, storage, and disposal Verifying expiration dates on products before use Rotating medication inventory to use oldest product first Relevant lab data Treatments impact on disease Dose appropriateness based on recommended standard dosing schedule, including any variations from FDA approved dosing Patient verbalizes understanding and is able to read-back instructions on self-administration/injection, proper storage, drug stability, importance of adherence and management strategies, side effect avoidance and mitigation strategies, and interruptions in therapy: Yes Patient is aware a licensed pharmacist is available 24 hours a day, 7 days a week to discuss medication-related questions or concerns: Yes Patient verbalizes understanding of the common side effect profile of their medication. The patient is able to call 911 or seek urgent care if signs/symptoms of allergy or harmful adverse reactions occur: Yes Additional care/services needed: No Additional equipment/supplies required: No Patient satisfied with care/services provided: Yes Specialty Assessment: Physical and Cognitive Assessment: Functional limitations identified: No Cognitive limitations identified: No Concern regarding orientation/memory: No Concern with reasoning/judgement: No Is patient a fall risk: No Social Assessment: Does patient have a primary career portals teacher: No Does patient have an emergency contact on file: Yes Does patient need referral to community mental health social worker: No Does patient need referral to advocacy group: No Home Health Assessment: Is the patient in a safe home environment?: Yes Is the patient able to store their medication as directed?: Yes Does the patient have a support network at home?: Yes Reviewed potential home safety hazards with patient: Yes Economic Assessment: Patient is agreeable to medication copay: Yes Actual Copay: $: 0 Days Supply: 30 Welcome Packet and Rights and Responsibilities: Patient provided welcome packet/rights and responsibilities: Yes Date Confirmed: 03/25/23 Confirmation: Signature in [employer] [facility] Med Adherence Patient Demonstrates Understanding of Importance of Adherence: Yes Educational Information or Adherence Tools Provided: Yes Patient Reported X Missed Doses in the Last Month: 0 Provider-Estimated Medication Adherence Level: 90-100% Adherence Tools Used: medication list, directed education, pill box Therapy Assessment: Current Medication Dosing/Route/Frequency: Nubeqa 600mg PO BID Appropriate therapy: Yes Patient's Problems/Needs: The patient needs to remain adherent to improve outcomes and may enrolling in emails, text, or portal messaging to improve compliance Expected outcome: Prolong survival by a year or more Treatment Outcome: Therapy initiated Patient Goals: Hematology/Oncology related goals may include remission, palliative or hospice care, a bridge to future surgery, transplant, and radiation or infusion therapy. Goals DH Home Medication Compliance and Understanding The patient???s goal is to continue positive results of oral chemotherapy by maintaining improved labs (PSA) or stable scans in clinic for the upcoming year. On a scale of 1 - 10, what is the patient's overall confidence level with administering this medication? 10 Monitoring requirements for prescribed medication: CBC, CMP, CT or MRI, PSA On a scale of 1 - 10, the patient rates their quality of life as: 9 Care Plan Reviewed and Approved by both Pharmacist and Patient: Yes Interventions (if applicable): No Patient Status and Counseling: Is the patient experiencing pain? No Relevant monitoring results reviewed for bone marrow suppression, opportunistic infection, tumor lysis syndrome, metabolic disturbance and end organ dysfunction: Yes Pharmacist follow-up needed: No Delivery Method: Delivery Patient understands any changes to current drug regimen were made at the appointment and that [facility] is providing recommendations (summary located at top of note) for provider review and follow up. Sarah Beth Maharaj RPH 03/22/23 1:30 AM documented in this encounter Plan of Treatment Upcoming Encounters Date Type Department Care Team (Late st Contact Info) Description 10/16/2023 2:30 PM EDT Office Visit Hematology/Oncology at [address] [phone] Fiodraliza Downing APRN [facility] [place] [address] 11/10/2023 9:00 AM EDT Appointment [place] [address] Thomas Curtis MD [facility] [address] HEMATOLOGY [place] [address] 11/21/2023 11:00 AM EDT Infusion Hematology Oncology at [address] [phone] 12/05/2023 1:30 PM EDT Office Visit Hematology/Oncology at [address] [phone] Thomas Curtis MD [facility] [place] [address] Fiordaliza Downing APRN [facility] [place] [address] 12/26/2023 9:00 AM EDT Appointment [place] [phone] Thomas Curtis MD [facility] [place] [address] 02/09/2024 8:00 AM EST Appointment [place] [phone] Thomas Curtis MD [facility] [place]OLOG[place] [address] 03/18/2024 3:00 PM EST Office Visit Cardiology at [address] [phone] Sameer Rudolph MD [facility] [place] [address] 03/22/2024 9:00 AM EST Appointment [place] [phone] Thomas Curtis MD [facility] HEMATOLOGY [place] [address] 08/23/2024 Hospital Encounter [place] [phone] True Juarez MD [facility] [place] [address] Scheduled Procedures Name Priority Associated Diagnoses Date/Ti [...] prostate documented in this encounter Care Teams Build And Release Manager Relationship Specialty Start Date End Date Nicolasa Valenzuela PA [address] [place] [address] PCP - General Family Medicine 12/20/21 documented as of this encounter
--- OUTSIDE RECORDS SUMMARY | 2023-10-16 03:14 | XMS_ITS | Encounter Summary ---
Author Organization [facility] Address [facility] [place] [address] Care Team Providers Care Solar Site Assessment Specialist Name Role Phone Nicolasa Valenzuela Primary Care Pro vider Reason for Referral * Diagnostic Test (Routine) - Authorized Specialty Diagnoses / Procedures Referred By Contac t Referred To Contact Radiology Diagnoses Prostate cancer metastatic to multiple sites Procedures NM Bone Scan Whole Body Thomas Branch MD [facility] DR [place] [address] Referral ID Status Reason Start Date Expiration Date Visits Requested Visits Authorized [id number] Authorized Specialty Service Requested 04/11/2023 10/09/2024 1 1 * Diagnostic Test (Routine) - Authorized Specialty Diagnoses / Procedures Referred By Contac t Referred To Contact Radiology Diagnoses Prostate cancer metastatic to multiple sites Procedures CT Chest Abdomen Pelvis w Contrast (Generic) Thomas Branch MD [facility] DR [place] [address] Referral ID Status Reason Start Date Expiration Date Visits Requested Visits Authorized [id number] Authorized Specialty Service Requested 04/11/2023 10/09/2024 1 1 Reason for Visit * Auth/Cert (Routine) Specialty Diagnoses / Procedures Referred By Contac t Referred To Contact Diagnoses NSTEMI (non-ST elevated myocardial infarction) Diffuse ischemia Tha Jacobs MD [facility] [place] [address] [facility] Referral ID Status Reason Start Date Expiration Date Visits Re quested Visits Authorized [id number] 1 1 Encounter Details Date Type Department Care Team (Late st Contact Info) Description 04/11/2023 10:30 AM EST Office Visit Hematology/Oncology at [address] [phone] Thomas Branch MD [facility] [place] [address] Prostate cancer metastatic to multiple sites (Primary Dx); High risk medication use; Androgen deprivation therapy Social History Tobacco Use Types Packs/Day Years Used Date Smoking Tobacco: Never Smokeless Tobacco: Never Alcohol Use Standard Drinks/Week Comments Not Currently 0 (1 standard drink = 0.6 oz pur e alcohol) [facility] Utilities Answer Date Recorded In [...] slept in a long-term (including now)? No 01/31/2023 DH IPV Inpatient [...] Sign Reading Time Taken Comments Blood Pressure 91/56 04/11/2023 11:30 AM EST Pulse 75 04/11/2023 11:30 AM EST Temperature 36.2 ??C (97.1 ??F) 04/11/2023 10:[address] Respiratory Rate 16 04/11/2023 11:30 AM EST Oxygen Saturation 100% 04/11/2023 10:27 AM EST Inhaled Oxygen Concentration - - Weight 85.7 kg (189 lb) 04/11/2023 10:27 AM EST Height 178.4 cm (5' 10.24) 04/11/2023 10:27 AM EST Body Mass Index 26.94 04/11/2023 10:27 AM EST documented in this encounter Progress Notes * Thomas Branch MD - 04/11/2023 10:30 AM EST ONCOLOGY FOLLOW UP ONCOLOGY SUMMARY: [...] for follow-up on metastatic prostate cancer and 4-th docetaxel cycle. He takes furosemide twice a day but no improvement in leg swelling or dyspnea. He had echocardiogram. [place] dizzy this morning. Complains on pain in left shoulder with activity. Denies chest pain. Tightness and pain in the right leg/hip is the most pressing issue and makes him difficult to ambulate.. Complains of increase in exertional shortness of breath. No other focal complaints. REVIEW OF SYSTEMS: As in interval history PAST MEDICAL HISTORY: No interval changes since last visit Cardiomyopathy, T2DM, HLD, hypothyroidism, CKD for which he follows with his PCP MEDS: Medications 04/11/23 1035 Medication Sig Taking? furosemide (Lasix) 20 mg tablet Take 1 tablet by mouth 2 times daily. Yes tamsulosin (Flomax) 0.4 mg capsule Take 0.4 mg by mouth daily. Yes acetaminophen (Tylenol) 325 mg tablet Take 650 mg by mouth 3 times daily. Yes levothyroxine (Synthroid) 150 mcg tablet Take 150 mcg by mouth daily. Yes HYDROcodone-acetaminophen (Pearsall) 5-325 mg tablet Take 1 tablet by mouth every 6 hours as needed for Pain. Yes atorvastatin (Lipitor) 40 mg tablet Take 1 tablet by mouth daily. Yes cholecalciferol (Vitamin D3) 1,000 unit tablet Take 1 tablet by mouth daily. Yes Lantus Solostar U-100 Insulin 100 unit/mL (3 mL) pen Inject 8 Units subcutaneously daily. Yes nitrofurantoin (Macrobid) 100 mg capsule Take 100 mg by mouth 2 times daily. For 7 days darolutamide (Nubeqa) 300 mg tablet Take 2 [...] suspected stomach/abdominal SOCIAL HX:-Works part-time as a [employer], lives by himself. He is here with his friend today who is a breast cancer survivor and runs a local support group. He lives in [place], [place]. 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 General: NAD Head: NCAT Eyes: Not [...] Lymphoid tissue is not readily identified. LABS: 04/11/2023 sodium 137, potassium 4.7, BUN 52, [...] platelet count 330, ANC 3.76 PSA testosteron 03/21/23 15.8 <7.0 02/28/23 28.9 <7 02/06/23 63.0 01/18/23 49.5 33 12/14/21 111 IMAGING STUDIES: 03/25/2023 echocardiogram: The calculated ejection fraction is [...] twice daily Efficacy was based on ARASENS ([id number]), a randomized, multicenter, double- blind, placebo-controlled clinical trial in 1306 patients with mHSPC. Patients were randomized to receive either darolutamide 600 mg orally twice daily plus docetaxel 75 mg/m2 intravenously administered every 3 weeks forup to 6 cycles or docetaxel plus placebo. All patients received a gonadotropin-releasing hormone analog concurrently or had a bilateral orchiectomy. The primary efficacy measure was overall survival (OS). Wfvw-wt-fgmq progression was an additional efficacy measure. Median OS was not reached (NR) (95% CI: NR, NR) in the darolutamide plus docetaxelarm and 48.9 months (95% CI: 44.4, NR) in docetaxel plus placebo arm (HR 0.68; 95% CI: 0.57, 0.80; p<0.0001). Treatment with darolutamide and docetaxel resulted in a statistically significant delay in pohu-oi-poba progression (HR 0.79; 95% CI: 0.66, 0.95; [...] and hypocalcemia. The recommended darolutamide dose for [facility] is 600 mg (two 300 mg [...] see him back in about 3 weeks # Germline and somatic mutation testing: Has been referred to familial cancer program, will do 170 gene panel testing and MMR testing # Cardiomyopathy: Follows with Dr. Rudolph #Port placement: per patient request. Referral sent to [facility] which is more convenient for Bill. #CKD: Chronic, creatinine is elevated at 1.8 which is overall stable. Follows with PCP. Plan: D/c Docetaxel Re-start darolutamide 300 mg twice daily when available 3. CT CAP and nuclear bone scan prior to next visit 4. Next visit with MD with CBC, CMP, PSA, testosterone and Lupron in 3 weeks THOMAS BRANCH MD All questions were answered and patient verbalized understanding and no further questions. documented in this encounter Plan of Treatment Upcoming Encounters Date Type Department Care Team (Late st Contact Info) Description 10/16/2023 2:30 PM EDT Office Visit Hematology/Oncology at [address] [phone] Downing, Fiordaliza A, [facility] [place] [address] 11/10/2023 9:00 AM EDT Appointment [place] [address] Thomas Branch MD [facility] [place] [address] 11/21/2023 11:00 AM EDT Infusion Hematology Oncology at [address] [phone] 12/05/2023 1:30 PM EDT Office Visit Hematology/Oncology at [address] [phone] Thomas Branch MD [facility] [place] [address] Fiordaliza Downing [facility] [place] [address] 12/26/2023 9:00 AM EDT Appointment [place] [address] Thomas Branch MD [facility] HEM[place]OLOGY [place] [address] 02/09/2024 8:00 AM EST Appointment [place] [address] Thomas Branch MD [facility] [place]OLOG[place] [address] 03/18/2024 3:00 PM EST Office Visit Cardiology at [address] [phone] Sameer Rudolph MD [facility] [place] [address] 03/22/2024 9:00 AM EST Appointment Nuclear Medicine at [place] [phone] Thomas Branch MD [facility] [place]OLOG[place] [address] 08/23/2024 Hospital Encounter [place] [address] True Juarez MD [facility] [place] [address] Scheduled Orders Name Type Priority Associated Diagnoses Orde r Schedule CT Chest Abdomen Pelvis w Contrast (Generic) Imaging Routine Prostate cancer metastatic to multiple sites Expected: 04/25/2023 (Approximate), Expires: 10/25/2023 NM Bone Scan Whole Body Imaging Routine Prostate cancer metastatic to multiple sites Expected: 05/10/2023 (Approximate), Expires: 11/09/2023 Scheduled Procedures Name Priority Associated Diagnoses Date/Ti me CYSTO, STENT PLACEMENT (WRVU 2.82) Hydronephrosis with ureteral stricture, not elsewhere classified CYSTO, REMOVAL OF STENT, FOR EIGN BODY OR CALCULUS, SIMPLE (WRVU 2.81) Hydronephrosis with ureteral stricture, not elsewhere classified documented as of this encounter Visit Diagnoses Diagnosis Prostate cancer metastatic to multiple sites- Primary Malignant neoplasm of prostate High risk medication use Encounter for long-term (current) use of other medications Androgen deprivation therapy Encounter for therapeutic drug monitoring documented in this encounter Care Teams Solar Site Assessment Specialist Relationship Specialty Start Date End Date Nicolasa Valenzuela PA [address] [place] [address] PCP - General Family Medicine 12/20/21 documented as of this encounter
--- OUTSIDE RECORDS SUMMARY | 2023-10-16 03:14 | XMS_ITS | Encounter Summary ---
Author Organization [facility] Address [facility] [place] [address] Care Team Providers Care Director Learning Name Role Phone Nicolasa Valenzuela Primary Care Pro vider Encounter Details Date Type Department Care Team (Late st Contact Info) Description 03/01/2023 Orders Only Hematology [place] [address] Thomas Curtis MD [facility] [place] [address] High risk medication use Social History Tobacco Use Types Packs/Day Years Used Date Smoking Tobacco: Never Smokeless Tobacco: Never Alcohol Use Standard Drinks/Week Comments Not Currently 0 (1 standard drink = 0.6 oz pur e alcohol) [facility] Utilities Answer Date Recorded In the past 12 months has [employer], gas, oil, or water [employer] threatened to shut off services in [...] PM EDT Office Visit Hematology/Oncology at [address] [phone] Fiordaliza Downing APRN [facility] [place] [address] 11/10/2023 9:00 AM EDT Appointment [place] [address] Thomas Curtis MD [facility] [place]ATOLOGY [place] [address] 11/21/2023 11:00 AM EDT Infusion Hematology Oncology at [address] [phone] 12/05/2023 1:30 PM EDT Office Visit Hematology/Oncology at [address] [phone] Thomas Curtis MD [facility] HEM[place]OLOGY [place] [address] Fiordaliza Downing APRN [facility] [place] [address] 12/26/2023 9:00 AM EDT Appointment Nuclear Medicine at [place] [phone] Thomas Curtis MD [facility] HEMATOLOGY [place] [address] 02/09/2024 8:00 AM EST Appointment [place] [phone] Thomas Curtis MD [facility] DR [place]EMATOLOGY [place] [address] 03/18/2024 3:00 PM EST Office Visit Cardiology at [address] [place] [address] Sameer Rudolph MD [facility] [place] [address] 03/22/2024 9:00 AM EST Appointment [place] [phone] Thomas Curtis MD [facility] HEMATOLOGY [place] [address] 08/23/2024 Hospital Encounter [place] [phone] True Juarez MD [facility] [place] [address] Scheduled Procedures Name Priority Associated Diagnoses Date/Ti me CYSTO, STENT PLACEMENT (WRVU 2.82) Hydronephrosis with ureteral stricture, not elsewhere classified CYSTO, REMOVAL OF STENT, FOR EIGN BODY OR CALCULUS, SIMPLE (WRVU 2.81) Hydronephrosis with ureteral stricture, not elsewhere classified documented as of this encounter Visit Diagnoses Diagnosis High risk medication use Encounter for long-term (current) use of other medications documented in this encounter Care Teams Director Learning Relationship Specialty Start Date End Date Nicolasa Valenzuela PA [address] [place] [address] PCP - General Family Medicine 12/20/21 documented as of this encounter
--- OUTSIDE RECORDS SUMMARY | 2023-10-16 03:15 | XMS_ITS | Encounter Summary ---
Author Organization [facility] Address [facility] [place] [address] Care Team Providers Care Warp Placer Name Role Phone Nicolasa Valenzuela Primary Care Pro vider Encounter Details Date Type Department Care Team (Late st Contact Info) Description 02/01/2023 Telephone Hematology/Oncology at [address] [phone] Elisha Montoya Social History Tobacco Use Types Packs/Day Years Used Date Smoking Tobacco: Never Smokeless Tobacco: Never Alcohol Use Standard Drinks/Week Comments Not Currently 0 (1 standard drink = 0.6 oz pur e alcohol) [facility] Utilities Answer Date Recorded In the [...] in a fdc (including now)? No 01/31/2023 Sex and Gender Information Value Date Recorded Sex Assigned at Not on file Gender Identity Not on file Sexual Orientation Not on file documented as of this encounter Miscellaneous Notes * Telephone Encounter - Eve Escamilla, RN - 02/13/2023 9:50 AM EST Spoke with Huber and the upper back pain has subsided with the Claritin, but noted his lower backpain seems worse than before at night, but ok during the day. He previously was taking norco at night for lower back pain. Advised to continue to taking the Claritin if it is helping his back pain, and take the norco as prescribed for the lower back pain, and to call if symptoms worsen or do not improve. Huber was in agreement with this plan. Huber advised he only has about 3 days left of abiraterone and has not received darolutamide yet.Advised when out of abiraterone to stop and is ok to have a delay in starting the darolutamide. Huber verbalized understanding of this and in agreement with this plan as well. documented in this encounter Plan of Treatment Upcoming Encounters Date Type Department Care Team (Late st Contact Info) Description 10/16/2023 2:30 PM EDT Office Visit Hematology/Oncology at [address] [phone] Fiordaliza Downing APRN [facility] [place] [address] 11/10/2023 9:00 AM EDT Appointment [place] [phone] Thomas Curtis MD [facility] HEMATOLOGY [place] [address] 11/21/2023 11:00 AM EDT Infusion Hematology Oncology at [address] [phone] 12/05/2023 1:30 PM EDT Office Visit Hematology/Oncology at [address] [phone] Thomas Curtis MD [facility] HEMATOLOGY [place] [address] Fiordaliza Downing APRN [facility] [place] [address] 12/26/2023 9:00 AM EDT Appointment [place] [phone] Thomas Curtis MD [facility] HEMATOLOGY [place] [address] 02/09/2024 8:00 AM EST Appointment [place] [phone] Thomas Curtis MD [facility] HEMATOLOGY [place] [address] 03/18/2024 3:00 PM EST Office Visit Cardiology at [address] [place] [phone] Sameer Rudolph MD [facility] [place] [address] 03/22/2024 9:00 AM EST Appointment Nuclear Medicine at [place] [phone] Thomas Curtis MD [facility] HEMATOLOGY [place] [address] 08/23/2024 Hospital Encounter Main [place] [phone] True Juarez MD [facility] [place] [address] Scheduled Procedures Name Priority Associated Diagnoses Date/Ti me CYSTO, STENT PLACEMENT (WRVU 2.82) Hydronephrosis with ureteral stricture, not elsewhere classified CYSTO, REMOVAL OF STENT, FOR EIGN BODY OR CALCULUS, SIMPLE (WRVU 2.81) Hydronephrosis with ureteral stricture, not elsewhere classified documented as of this encounter Visit Diagnoses Not on filedocumented in this encounter Care Teams Warp Placer Relationship Specialty Start Date End Date Nicolasa Valenzuela PA [address] [place] [address] PCP - General Family Medicine 12/20/21 documented as of this encounter
--- OUTSIDE RECORDS SUMMARY | 2023-10-16 03:15 | XMS_ITS | Encounter Summary ---
Author Organization [facility] [place] [address] Care Team Providers Care Retail Attendant Name Role Phone Nicolasa Valenzuela Primary Care Pro vider Reason for Visit * Reason Comments Chemotherapy Cycle 1, Day 1; Doce taxol * Treatment/Therapy Plan Authorization (Routine) - Closed Specialty Diagnoses / Procedures Referred By Contac t Referred To Contact Hematology and Oncology Diagnoses Prostate cancer metastatic to multiple sites High risk medication use Procedures TC DOCETAXEL, 1MG, INJECTION TC PEGFILGRASTIM, EXCLUDES BIOSIMILAR, 0.5 MG, INJ J9171 TAXOTERE J2506 NEULASTA ONPRO Thomas Curtis MD [address] [place] [address] [place] [address] Thomas Curtis MD [address] [place] [address] [place] [address] Referral ID Status Reason Start Date Expiration Date Visits Re quested Visits Authorized [id number] Closed 01/31/2023 01/31/2024 99 101 Encounter Details Date Type Department Care Team (Late st Contact Info) Description 02/07/2023 9:00 AM EST Infusion Hematology Oncology at [address] [phone] Prostate cancer metastatic to multiple sites Social History Tobacco Use Types Packs/Day Years Used Date Smoking Tobacco: Never Smokeless Tobacco: Never Alcohol Use Standard Drinks/Week Comments Not Currently 0 (1 standard drink = 0.6 oz pur e alcohol) [facility] Utilities Answer Date Recorded In the [...] Sign Reading Time Taken Comments Blood Pressure 124/56 02/07/2023 8:47 AM EST Pulse 67 02/07/2023 8:47 AM EST Temperature 36.3 ??C (97.3 ??F) 02/07/2023 8:47 AM ES T Respiratory Rate 18 02/07/2023 8:47 AM EST Oxygen Saturation 100% 02/07/2023 8:47 AM EST Inhaled Oxygen Concentration - - Weight 81.3 kg (179 lb 3.2 oz) 02/07/2023 8:47 A M EST Height 178.4 cm (5' 10.24) 02/07/2023 8:[address] Body Mass Index 25.54 02/07/2023 8:47 AM EST documented in this encounter Progress Notes * Radha Carmen RN - 02/07/2023 9:00 AM EST INFUSION THERAPY ADMINISTRATION NOTES DIAGNOSIS: prostate cancer CYCLE #: 1, Day 1; docetaxol REASON FOR VISIT: Chemotherapy SUBJECTIVE Huber Keys offers no complaints. OBJECTIVE LAB DATA: WBC 6.52, Hg 11.4, Plt 330, BUN/Cr 40/1.8 IV ACCESS: PIV placed and removed after treatment, Pt reports he is getting a port for Cycle 2. Pre administration: Chemotherapy orders independently verified for drug name, route, and dosage per patient's height, weight and BSA by Radha Carmen RN & onsite pharmacists REACTIONS (DESCRIPTION, TIME, INTERVENTION AND EFFECTIVENESS) none ASSESSMENT Huber Keys was awake, alert and tolerated treatment well. OnPro applied to Left arm at 1204. Due to start deploying dose of medication at 1504. Patient instructed to remove at 02/08 at 1604 when meter reads empty and light is solid green. Verbal and written instruction given to patient. Pt. chemo teaching instructions included: During clinic hours (8am-5pm Monday-Monday): pt. can call [phone] questions or concerns. After clinic hours (5pm-8am Monday-Monday and weekends) pt can call [phone] and ask for the access database developer/oncologist public relations account executive. Huber Keys verbalized understanding of potential chemotherapy side effects and home care including but not limited to- handwashing to prevent infection, signs and symptoms of low blood counts(fever, fatigue, bleeding), to call with a fever of 100.4 or greater, any significant constipation/diarrhea, importance of nutrition and fluid intake (drinking at least 32-64 ounces of non-caffeinated beverages/day), mouth care. Huber Keys verbalized understanding of how to take prescription medications given for home use after chemotherapy. PLAN Return to clinic per routine. documented in this encounter Plan of Treatment Upcoming Encounters Date Type Department Care Team (Late st Contact Info) Description 10/16/2023 2:30 PM EDT Office Visit Hematology/Oncology at [address] [phone] Fiordaliza Downing APRN [facility] [place] [address] 11/10/2023 9:00 AM EDT Appointment [place] [phone] Thomas Crutis MD [facility] HEMATOLOGY [place] [address] 11/21/2023 11:00 AM EDT Infusion Hematology Oncology at [address] [phone] 12/05/2023 1:30 PM EDT Office Visit Hematology/Oncology at [address] [phone] Thomas Curtis MD [facility] HEMATOLOGY [place] [address] Fiordaliza Downing APRN [facility] [place] [address] 12/26/2023 9:00 AM EDT Appointment [place] [phone] Thomas Curtis MD [facility] HEMATOLOGY [place] [address] 02/09/2024 8:00 AM EST Appointment [place] [address] Thomas Curtis MD [facility] HEMATOLOGY [place] [address] 03/18/2024 3:00 PM EST Office Visit Cardiology at [address] [place] [phone] Sameer Rudolph MD [facility] [place] [address] 03/22/2024 9:00 AM EST Appointment [place] [address] Thomas Curtis MD [facility] HEMATOLOGY [place] [address] 08/23/2024 Hospital Encounter [place] [phone] True Juarez MD [facility] [place] [address] Scheduled Procedures Name Priority Associated Diagnoses Date/Ti [...] 10 mg, Intravenous, ONCE, 1 dose, On Mon02/07/23 at 0915, Administer 60 minutes prior to DOCEtaxel Given 02/07/2023 9:11 AM EST 10 mg diphenhydrAMINE (Benadryl) (50 mg/mL) injection 25 mg 25 mg, Intravenous, ONCE, 1 dose, On Mon02/07/23 at 0915, Administer 60 minutes prior to DOCEtaxel, Routine Given 02/07/2023 9:10 AM EST 25 mg DOCEtaxeL (Taxotere) 140 mg in sodium chloride 0.9% Non-PVC 257 mL infusion 140 mg, Intravenous, ONCE, 1 dose, On Mon02/07/23 at 1015, Administer over 60 Minutes, Dose Ordered = 151 mg (75 mg/m2). Pharmacist rounded dose per procedure. Warning Vesicant/Irritant Medication 3 Step Titration for Infusions 1 and 2. Regular (Not Titrated) Rate to start at infusion 3 if no HSR. Step 1: Start at a rate of 2.6 mL/hr for 15 minutes. Step 2: Increase rate to 25.8 mL/hr for 15 minutes. Step 3: Increase to regular infusion rate 257.6 mL/hr for remainder of infusion., Should this infusion follow 3 Step Titration (Initial Dosing) or Standard Infusion? Initial: 3 Step Titration New Bag 02/07/2023 10:26 AM EST 140 mg 257 mL/hr famotidine (Pepcid) (10 mg/mL) injection 20 mg 20 mg, Intravenous, ONCE, 1 dose, On Mon02/07/23 at 0915, Administer 60 minutes prior to DOCEtaxel Given 02/07/2023 9:10 AM EST 20 mg pegfilgrastim (Neulasta Onpro) (6 mg/0.6 mL) injection kit 6 mg 6 mg, Subcutaneous, ONCE, 1 dose, On Mon02/07/23 at 0915, Allow the prefilled syringe co-packaged with the on-body injector to reach room temperature at least 30 minutes prior to administration., Routine, This agent is restricted to outpatient use. Is this drug being given as an outpatient? Yes Given 02/07/2023 12:04 PM EST 6 mg sodium chloride 0.9% infusion 100 mL/hr, Intravenous, CONTINUOUS, Starting on Mon02/07/23 at 0915, Until Mon02/07/23 at 1618 New Bag 02/07/2023 9:12 AM EST 100 mL/hr 100 mL/hr documented in this encounter Care Teams Retail Attendant Relationship Specialty Start Date End Date Nicolasa Valenzuela PA [address] [place] [address] PCP - General Family Medicine 12/20/21 documented as of this encounter
--- OUTSIDE RECORDS SUMMARY | 2023-10-16 03:15 | XMS_ITS | Encounter Summary ---
Author Organization [facility] Address [facility] [place] [address] Care Team Providers Care Farm Reporter Name Role Phone Nicolasa Valenzuela Primary Care Pro vider Encounter Details Date Type Department Care Team (Late st Contact Info) Description 02/01/2023 Orders Only [place]emat[place] [address] Thomas Curtis MD [facility] [place] [address] Social History Tobacco Use Types Packs/Day Years Used Date Smoking Tobacco: Never Smokeless Tobacco: Never Alcohol Use Standard Drinks/Week Comments Not Currently 0 (1 standard drink = 0.6 oz pur e alcohol) [facility] Utilities Answer Date Recorded In the past 12 months has [employer], gas, oil, or water [employer] threatened to shut off services in [...] slept in a prison (including now)? No 01/31/2023 Sex and Gender Information Value Date Recorded Sex Assigned at Not on file Gender Identity Not on file Sexual Orientation Not on file documented as of this encounter Plan of Treatment Upcoming Encounters Date Type Department Care Team (Late st Contact Info) Description 10/16/2023 2:30 PM EDT Office Visit Hematology/Oncology at [address] [phone] Fiordaliza Downing APRN [facility] [place] [address] 11/10/2023 9:00 AM EDT Appointment [place] [address] Thomas Curtis MD [facility] DR [place] [address] 11/21/2023 11:00 AM EDT Infusion Hematology Oncology at [address] [phone] 12/05/2023 1:30 PM EDT Office Visit Hematology/Oncology at [address] [phone] Thomas Curtis MD [facility] [place] [address] Fiordaliza Downing APRN [facility] [place] [address] 12/26/2023 9:00 AM EDT Appointment Nuclear Medicine at [place] [phone] Thomas Curtis MD [facility] [place] [address] 02/09/2024 8:00 AM EST Appointment Nuclear Medicine at [place] [phone] Thomas Curtis MD [facility] [place] [address] 03/18/2024 3:00 PM EST Office Visit Cardiology at [address] [phone] Sameer Rudolph MD [facility] [place] [address] 03/22/2024 9:00 AM EST Appointment Nuclear Medicine at [place] [phone] Thomas Curtis MD [facility] [place] [address] 08/23/2024 Hospital Encounter [place] [address] True Juarez MD [facility] [place] [address] Scheduled Procedures Name Priority Associated Diagnoses Date/Ti me CYSTO, STENT PLACEMENT (WRVU 2.82) Hydronephrosis with ureteral stricture, not elsewhere classified CYSTO, REMOVAL OF STENT, FOR EIGN BODY OR CALCULUS, SIMPLE (WRVU 2.81) Hydronephrosis with ureteral stricture, not elsewhere classified documented as of this encounter Visit Diagnoses Not on filedocumented in this encounter Care Teams Farm Reporter Relationship Specialty Start Date End Date Nicolasa Valenzuela PA [address] [address] PCP - General Family Medicine 12/20/21 documented as of this encounter
--- OUTSIDE RECORDS SUMMARY | 2023-10-16 03:15 | XMS_ITS | Encounter Summary ---
Author Organization [facility] Address [facility] [place] [address] Care Team Providers Care Miller Wood Flour Name Role Phone Nicolasa Valenzuela Primary Care Pro vider Encounter Details Date Type Department Care Team (Late st Contact Info) Description 02/07/2023 Notes Only Hematology/Oncology at [address] [phone] Fiordaliza Downing APRN [facility] [place] [address] Social History Tobacco Use Types Packs/Day Years Used Date Smoking Tobacco: Never Smokeless Tobacco: Never Alcohol Use Standard Drinks/Week Comments Not Currently 0 (1 standard drink = 0.6 oz pur e alcohol) [facility] Utilities Answer Date Recorded In the past 12 months has [employer], gas, oil, or water [employer] threatened to shut off services in your [...] Progress Notes * Fiordaliza Downing APRN - 02/07/2023 4:16 PM EST Confirmed with Dr Curtis the plan of care. Huber will receive 6 cycles of docetaxel. Will planto transfer treatments to [facility] for cycle #3 as requested by patient. At this time Huber will continue abiraterone and prednisone. When darolutamide received he will d/c the abiraterone and prednisone and will start darolutamide. We will plan to repeat PSMA PET 1 month after he completes docetaxel treatment and f/u with Dr. Curtis at [place] to review results. documented in this encounter Plan of Treatment Upcoming Encounters Date Type Department Care Team (Late st Contact Info) Description 10/16/2023 2:30 PM EDT Office Visit Hematology/Oncology at [address] [phone] Fiordaliza Downing APRN [facility] [place] [address] 11/10/2023 9:00 AM EDT Appointment [place] [address] Thomas Curtis MD [facility] HEMATOLOGY [place] [address] 11/21/2023 11:00 AM EDT Infusion Hematology Oncology at [address] [phone] 12/05/2023 1:30 PM EDT Office Visit Hematology/Oncology at [address] [phone] Thomas Curtis MD [facility] HEMATOLOGY [place] [address] Fiordaliza Downing APRN [facility] [place] [address] 12/26/2023 9:00 AM EDT Appointment [place] [address] Thomas Curtis MD [facility] HEMATOLOGY [place] [address] 02/09/2024 8:00 AM EST Appointment [place] [address] Thomas Curtis MD [facility] HEMATOLOGY [place] [address] 03/18/2024 3:00 PM EST Office Visit Cardiology at [address] [phone] Sameer Rudolph MD [facility] [place] [address] 03/22/2024 9:00 AM EST Appointment [place] [address] Thomas Curtis MD [facility] HEMATOLOGY [place] [address] 08/23/2024 Hospital Encounter [place] [phone] True Juarez MD [facility] UROLOGY [place], [place] [phone] Scheduled Procedures Name Priority Associated Diagnoses Date/Ti me CYSTO, STENT PLACEMENT (WRVU 2.82) Hydronephrosis with ureteral stricture, not elsewhere classified CYSTO, REMOVAL OF STENT, FOR EIGN BODY OR CALCULUS, SIMPLE (WRVU 2.81) Hydronephrosis with ureteral stricture, not elsewhere classified documented as of this encounter Visit Diagnoses Not on filedocumented in this encounter Care Teams Miller Wood Flour Relationship Specialty Start Date End Date Nicolasa Valenzuela PA [address] [place] [address] PCP - General Family Medicine 12/20/21 documented as of this encounter
--- OUTSIDE RECORDS SUMMARY | 2023-10-16 03:15 | XMS_ITS | Encounter Summary ---
Author Organization [facility] [place] [address] Care Team Providers Care Document Control Supervisor Name Role Phone Nicolasa Valenzuela Primary Care Pro vider Reason for Visit * Reason Comments Prior Authorization [employer] Encounter Details Date Type Department Care Team (Late st Contact Info) Description 02/01/2023 Specialty Pharmacy Pharmacy at [facility] [place] [address] Daniel Mcnulty, RIVET MACHINE OPERATOR Social History Tobacco Use Types Packs/Day Years Used Date Smoking Tobacco: Never Smokeless Tobacco: Never Alcohol Use Standard Drinks/Week Comments Not Currently 0 (1 standard drink = 0.6 oz pur e alcohol) [facility] Utilities Answer Date Recorded In [...] slept in a retirement (including now)? No 01/31/2023 Sex and Gender Information Value Date Recorded Sex Assigned at Not on file Gender Identity Not on file Sexual Orientation Not on file documented as of this encounter Progress Notes * Daniel Mcnulty - 02/01/2023 3:56 PM EST [facility], Prior Authorization Approval Medication Name: NUBEQA 300 MG TABLET Medication ID: Approval Dates: 01/31/2023 to 01/31/2024 Insurance requirements/notes: None Other Notes: None Case/Reference #: [id number] Approval notification Received via: [facility] Copay: $1,232.07 Copay assistance: Other (Enter Comment) Copay Notes: PT has a high copay - PT will need to fill with MAP Insurance mandated Pharmacy: Fillable at [facility]: Yes Patient Notified: No Pharmacy staff will be reaching out to the patient to inform them of their [facility]. If applicable, a pharmacist will speak with the patient to offer our specialty pharmacy services and to arrange delivery of their medication. Daniel Mcnulty 02/01/23 3:59 PM [facility], Medication Prior Authorization Submission Patient: Huber Keys Patient : 1955 Patient Address: [address] [place] [phone] (home) Medication Name: NUBEQA 300 MG TABLET Medication ID: Subscriber Insurance: [employer] [id number] Subscriber Insurance Comment: Phone: [phone] Fax: Physician: THOMAS BRANCH Physician Comment: Sent Via: [facility] [place]: [id number] Ref/Case/PA#: Medication Strength Frequency Requested: Take 2 tablets by mouth twice a day Qty/Day Supply: 120/30 New Start: New to Therapy Diagnosis & ICD-10 Code: C61 - Prostate Cancer Patient Notified: No Submission Notes: None Daniel Mcnulty 02/01/23 3:59 PM documented in this encounter Plan of Treatment Upcoming Encounters Date Type Department Care Team (Late st Contact Info) Description 10/16/2023 2:30 PM EDT Office Visit Hematology/Oncology at [address] [phone] Fiordaliza Downing APRN [facility] [place] [address] 11/10/2023 9:00 AM EDT Appointment [place] [address] Thomas Branch MD [facility] DR [place] [address] 11/21/2023 11:00 AM EDT Infusion Hematology Oncology at [address] [phone] 12/05/2023 1:30 PM EDT Office Visit Hematology/Oncology at [address] [phone] Thomas Branch MD [facility] [place] [address] Fiordaliza Downing APRN [facility] [place] [address] 12/26/2023 9:00 AM EDT Appointment Nuclear Medicine at [place] [phone] Thomas Branch MD [facility] [place] [address] 02/09/2024 8:00 AM EST Appointment [place] [phone] Thomas Branch MD [facility] [place] [address] 03/18/2024 3:00 PM EST Office Visit Cardiology at [address] [phone] Sameer Rudolph MD [facility] [place] [address] 03/22/2024 9:00 AM EST Appointment [place] [phone] Thomas Branch MD [facility] [place] [address] 08/23/2024 Hospital Encounter [place] [phone] True Juarez MD [facility] [place] [address] Scheduled Procedures Name Priority Associated Diagnoses Date/Ti me CYSTO, STENT PLACEMENT (WRVU 2.82) Hydronephrosis with ureteral stricture, not elsewhere classified CYSTO, REMOVAL OF STENT, FOR EIGN BODY OR CALCULUS, SIMPLE (WRVU 2.81) Hydronephrosis with ureteral stricture, not elsewhere classified documented as of this encounter Visit Diagnoses Not on filedocumented in this encounter Care Teams Document Control Supervisor Relationship Specialty Start Date End Date Nicolasa Valenzuela PA [address] [place] [address] PCP - General Family Medicine 12/20/21 documented as of this encounter
--- OUTSIDE RECORDS SUMMARY | 2023-10-16 03:15 | XMS_ITS | Encounter Summary ---
Author Organization [facility] Address [facility] [place] [address] Care Team Providers Care Associate Professor Of Church Music Name Role Phone Nicolasa Valenzuela Primary Care Pro vider Encounter Details Date Type Department Care Team (Latest Contact Info) Description 02/06/2023 Travel Social History Tobacco Use Types Packs/Day Years Used Date Smoking Tobacco: Never Smokeless Tobacco: Never Alcohol Use Standard Drinks/Week Comments Not Currently 0 (1 standard drink = 0.6 oz pur e alcohol) [facility] Utilities Answer Date Recorded In the past 12 months has e electric, gas, oil, or water [employer] threatened to shut off services in your [...] PM EDT Office Visit Hematology/Oncology at [address] [phone] Fiordaliza Downing APRN [facility] [place] [address] 11/10/2023 9:00 AM EDT Appointment [place] [address] Thomas Curtis MD [facility] [place] [address] 11/21/2023 11:00 AM EDT Infusion Hematology Oncology at [address] [phone] 12/05/2023 1:30 PM EDT Office Visit Hematology/Oncology at [address] [phone] Thomas Curtis MD [facility] [place] [address] Fiordailza Downing APRN [facility] [place] [address] 12/26/2023 9:00 AM EDT Appointment [place] [phone] Thomas Curtis MD [facility] [place]OLOG[place] [address] 02/09/2024 8:00 AM EST Appointment [place] [phone] Thomas Curtis MD [facility] [place]EM[place]OLOG[place] [address] 03/18/2024 3:00 PM EST Office Visit Cardiology at [address] [phone] Sameer Rudolph MD [facility] [place] [address] 03/22/2024 9:00 AM EST Appointment [place] [phone] Thomas Curtis MD [facility] HEMATOLOGY [place] [address] 08/23/2024 Hospital Encounter [place] [phone] True Juarez MD [facility] [place] [address] Scheduled Procedures Name Priority Associated Diagnoses Date/Ti me CYSTO, STENT PLACEMENT (WRVU 2.82) Hydronephrosis with ureteral stricture, not elsewhere classified CYSTO, REMOVAL OF STENT, FOR EIGN BODY OR CALCULUS, SIMPLE (WRVU 2.81) Hydronephrosis with ureteral stricture, not elsewhere classified documented as of this encounter Visit Diagnoses Not on filedocumented in this encounter Care Teams Associate Professor Of Church Music Relationship Specialty Start Date End Date Nicolasa Valenzuela PA [address] [place] [address] PCP - General Family Medicine 12/20/21 documented as of this encounter
--- OUTSIDE RECORDS SUMMARY | 2023-10-16 03:15 | XMS_ITS | Encounter Summary ---
Author Organization [facility] [place] [address] Care Team Providers Care Senior Rd Engineer Name Role Phone Nicolasa Valenzuela Primary Care Pro vider Reason for Referral * Consultation (Routine) - Closed Specialty Diagnoses / Procedures Referred By Toño mayorga Referred To Contact Hematology and Oncology Diagnoses Malignant neoplasm of prostate metastatic to bone Nabor Byrne MD [facility] [place] [address] Thomas Curtis MD [address] [place] [address] [place] [address] Referral ID Status Reason Start Date Expiration Date V isits Requested Visits Authorized [id number] Closed Transfer of Care 12/27/2022 12/27/2023 1 1 Reason for Visit * Reason Comments Follow-up Encounter Details Date Type Department Care Team (Late st Contact Info) Description 12/27/2022 1:00 PM EDT Office Visit [place] [address] Nabor Byrne MD [facility] [address] [place] [address] Malignant neoplasm of prostate metastatic to bone; Age-related bone loss; Age-related osteoporosis without current pathological fracture Social History Tobacco Use Types Packs/Day Years Used Date Smoking Tobacco: Never Smokeless Tobacco: Never Alcohol Use Standard Drinks/Week Comments Not Currently 0 (1 standard drink = 0.6 oz pur e alcohol) Overall Financial Resource Strain (CARDIA) Answe r Date Recorded How hard is it for you to pa y for the very basics like food, housing, medical care, and heating? Not very hard 10/31/2022 Hunger Vital Sign Answer Date Recorded Within the past 12 months, y ou worried that your food would run out before you got the money to buy more. Never true 11/01/19 23 Within the past 12 months, t he food you bought just didn't last and you didn't have money to get more. Never true 10/31/2022 PRAPARE - Transportation Answer Date Re corded In the past 12 months, has l ack of transportation kept you from medical appointments or from getting medications? No 10/05 In the past 12 months, has l ack of transportation kept you from meetings, work, or from getting things needed for daily living? No 10/31/2022 Housing Stability Vital Sign Answer Rohan e Recorded In the last 12 months, was t here a time when you were not able to pay the mortgage or rent on time? No 10/31/2022 In the last 12 months, how many places have you lived? 1 10/31/2022 In the last 12 months, was t here a time when you did not have a steady place to sleep or slept in a retirement (including now)? No 10/31/2022 Sex and Gender Information Value Date Recorded Sex Assigned at Not on file Gender Identity Not on file Sexual Orientation Not on file documented as of this encounter Last Filed Vital Signs Vital Sign Reading Time Taken Comments Blood Pressure 120/63 12/27/2022 12:53 PM EDT Pulse 67 12/27/2022 12:53 PM EDT Temperature 36 ??C (96.8 ??F) 12/27/2022 12:53 PM EDT Respiratory Rate 17 12/27/2022 12:53 PM EDT Oxygen Saturation 100% 12/27/2022 12:53 PM EDT Inhaled Oxygen Concentration - - Weight 84.4 kg (186 lb 1.1 oz) 12/27/2022 12:53 PM EDT Height 179.4 cm (5' 10.63) 12/27/2022 12:53 PM EDT Body Mass Index 26.22 12/27/2022 12:53 PM EDT documented in this encounter Progress Notes * Nabor Byrne MD - 12/27/2022 1:00 PM EDT Images from the original note were not included. [facility] Medical Oncology [place], [place] [id number] ONCOLOGY FOLLOW UP ONCOLOGY SUMMARY: 1. Metastatic high risk prostate cancer -PSA =35 in Aug 2021. mpMRI 10/26/21: 25 x 35-mm PI-RADs 5 lesion in bilateral TX (base & mid gland) -TRUS bx 12/2021 (PSA = 111) was neg (treated emprically for prostatitis). PSA 89 in Mar 2022 -Discussed PSMA PET etc but agreed to monitor [...] stopped and Abiraterone with Pred added 11/17/2022 HPI: Huber Brent Keys is here for f/u. He iw with his friend. HE was admitted for 2 days with what turned out to be a GI bug. Thre was also Qn of UTI. HE Needed Abx and is now recovering. Energy is starting to return. HE notes intermittent hot flashes that do not interfere with sleep or other acivities. He denies new pain. He has mild discomfort a/w RLE edema. This has not improved. HE has tried unfi tted compression stockings with limited success but also sound like he tried once of twice. He is not limited by this wrt ambulation. REVIEW OF SYSTEMS: Wt is improving which he is happy about Pain is significantly improved, HE has not needed pain medications Bowels are regular Aside from above, the remainder of the the ROS was negative PAST MEDICAL HISTORY: Past Medical History: Diagnosis Date Adenocarcinoma of prostate 10/21/2022 Adenoma of colon Chronic kidney disease Diabetes Gout High blood pressure Hypercholesterolemia 10/21/2022 Hypothyroid MEDS: Medications 12/27/22 1253 Medication Sig Taking? abiraterone (Zytiga) 500 mg tablet Take 2 tablets by mouth daily. Yes levothyroxine (Synthroid) 150 mcg tablet Take 150 mcg by mouth daily. Yes predniSONE (Deltasone) 5 mg tablet Take 1 tablet by mouth daily. Yes HYDROcodone-acetaminophen (Ozone) 5-325 mg tablet Take 1 tablet by mouth every 6 hours as needed for Pain. Yes atorvastatin (Lipitor) 40 mg tablet Take 1 tablet by mouth daily. Yes cholecalciferol (Vitamin D3) 1,000 unit tablet Take 1 tablet by mouth daily. Yes Lantus Solostar U-100 Insulin 100 unit/mL (3 mL) pen Inject 8 Units subcutaneously daily. Yes bicalutamide (Casodex) 50 mg tablet Take 1 tablet by mouth daily. 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 PS: ECOG = closer to 0 General: NAD Head: NCAT Eyes: Not icteric, not injected Extremities: 1-2+ RLE and trace LLE piting edema, non tender Skin: No rash noted Neuro: No focal weakness Psych: Normal mood and affect. LABS: CBC notable for improving Hb 10.6 normal WBC/Diff Plt 549 CMP notable for borderline K 5.1. His Cr is slightly better 2.07 PSA 38.1 Testo undetectable IMAGING STUDIES: No new ASSESSMENT AND PLAN: 67 y.o. M with extensively metastatic prostate cancer as stated above. There are no obvious visceral metastases. HE has high risk and high volume disease. he was otherwise young and was healthy priorto the comorbidities a/w cancer diagnosis. HE started ADT and no on mary + pred with goal of palliating and prolonging life HE is clinically better not withstanding the recnet admission for infection - I do not have the record of this I reviewed PSA which whil responding may reflect recent inflammation if he had a UTI We thus did not read too much int the actual value and will cont monitoring HE is tolerating tx with manageable vasomotor sx We again briefly discussed the data for chemotherapy without getting into extensive detail. I wouldlike to see his performance status improve in the next few week prior to making a decision for adding chemotehrapy to his regimen. I did address Qns he had wrt frequency of tx and logistic aroung being treted closer should he decide to do chemotherapy. We agreed it would make sense for him o meet with Dr Curtis who goes to [facility] and cont this conversation so that he could start treatment as soon as he is deemed ready and he would like to proceed We discussed risk of bone density loss from ADT and the importance of getting a baseline DEXA scan.we will arrange this to be done ideally prior to his next appt Monitor HB and Cr. He may need nephrology and RITA support if renal insufficiency proves to be a contributor. We defferred this work up for now Symptom management: (a) pain improved cont to monitor (b) Leg swelling likely related to pelvic nodes. Should improve with tx: He know to call with sx ofDVT (he is at risk for this). He has recent imaging that ruled out DVT. We will f.u. I recommended he be fitted for compression stockings (c) wt loss has reversed F./u in ~4-5 weeks to conincide with next lupron and to further discuss chemotherapy Pt was instructed to call our clinic with any new symptom or any questions. Nabor Byrne MD, PhD Oncology documented in this encounter Plan of Treatment Upcoming Encounters Date Type Department Care Team (Late st Contact Info) Description 10/16/2023 2:30 PM EDT Office Visit Hematology/Oncology at [address] [phone] Fiordaliza Downing APRN [facility] [place] [place] [address] 11/10/2023 9:00 AM EDT Appointment [place] [address] Thomas Curtis MD [facility] [place] [address] 11/21/2023 11:00 AM EDT Infusion Hematology Oncology at [address] [phone] 12/05/2023 1:30 PM EDT Office Visit Hematology/Oncology at [address] [phone] Thomas Curtis MD [facility] [place] [address] Fiordaliza Downing APRN [facility] [place] [place] [address] 12/26/2023 9:00 AM EDT Appointment [place] [address] Thomas Curtis MD [facility] [place] [address] 02/09/2024 8:00 AM EST Appointment [place] [address] Thomas Curtis MD [facility] [address] [place] [address] 03/18/2024 3:00 PM EST Office Visit Cardiology at [address] [place] [address] Sameer Rudolph MD [facility] [place] [address] 03/22/2024 9:00 AM EST Appointment [place] [phone] Thomas Curtis MD [facility] [address] [place] [address] 08/23/2024 Hospital Encounter [place] [phone] True Juarez MD [facility] [place] [address] Scheduled Orders Name Type Priority Associated Diagnoses Orde r Schedule CBC (with Diff) Lab Routine Malignant neoplasm of prostate metastatic to bone Expected: 01/24/2023 (Approximate), Expires: 12/27/2023 Comprehensive metabolic panel (non-fasting) Lab Routine Malignant neoplasm of prostate metastatic to bone Expected: 01/24/2023 (Approximate), Expires: 12/27/2023 PSA (Ultrasensitive) Lab Routine Malignant neoplasm of prostate metastatic to bone Expected: 01/27/2023, Expires: 12/28/2023 Testosterone, total Lab Routine Malignant neoplasm of prostate metastatic to bone Expected: 01/27/2023 (Approximate), Expires: 12/28/2023 Scheduled Procedures Name Priority Associated Diagnoses Date/Ti me CYSTO, STENT PLACEMENT (WRVU 2.82) Hydronephrosis with ureteral stricture, not elsewhere classified CYSTO, REMOVAL OF STENT, FOR EIGN BODY OR CALCULUS, SIMPLE (WRVU 2.81) Hydronephrosis with ureteral stricture, not elsewhere classified Scheduled Referrals Name Type Priority Associated Diagnoses Order Schedule Referral to Hematology and Oncology Outpatient Referral Routine Malignant neoplasm of prostate metastatic to bone Ordered: 12/27/2022 documented as of this encounter Visit Diagnoses Diagnosis Malignant neoplasm of prostate metastatic to bone Malignant neoplasm of prostate Age-related bone loss Disorder of bone and cartilage, unspecified Age-related osteoporosis without current pathological fracture Senile osteoporosis documented in this encounter Care Teams Senior Rd Engineer Relationship Specialty Start Date End Date Nicolasa Valenzuela PA [address] [place] [address] PCP - General Family Medicine 12/20/21 documented as of this encounter
--- OUTSIDE RECORDS SUMMARY | 2023-10-16 03:15 | XMS_ITS | Encounter Summary ---
Author Organization [facility] [place] [address] Care Team Providers Care Steamer Blocker Name Role Phone Nicolasa Valenzuela Primary Care Pro vider Reason for Visit * Reason Comments Genetic Evaluation * Consultation (Urgent) - Closed Specialty Diagnoses / Procedures Referred By Toño mayorga Referred To Contact Genetics Diagnoses Malignant neoplasm of prostate metastatic to bone Thomas Curtis MD [facility] DR [place] [address] [facility] [address] [place] [address] Referral ID Status Reason Start Date Expiration Date V isits Requested Visits Authorized [id number] Closed Consult, Test & Treat 01/31/2023 01/31/2024 1 1 Encounter Details Date Type Department Care Team (Late st Contact Info) Description 02/17/2023 10:30 AM EST TH Visit (TeleHealth) Hematology [place] [address] Lisa Greer [facility] DR [place] [address] Malignant neoplasm of prostate metastatic to bone; Family history of malignant neoplasm of breast; Family history of unspecified malignant neoplasm Social History Tobacco Use Types Packs/Day Years Used Date Smoking Tobacco: Never Smokeless Tobacco: Never Alcohol Use Standard Drinks/Week Comments Not Currently 0 (1 standard drink = 0.6 oz pur e alcohol) [facility] Utilities Answer Date Recorded In the [...] slept in a penitentiary (including now)? No 01/31/2023 Sex and Gender Information Value Date Recorded Sex Assigned at Not on file Gender Identity Not on file Sexual Orientation Not on file documented as of this encounter Progress Notes * Lisa Greer LGC - 02/17/2023 10:30 AM EST Huber Kennedy Génesissavana was seen by ANTOINETTE Vargas in consultation at the request of Thomas Curtis to advise regarding possible heritable predisposition to cancer. I spent 30 minutes of this video encounter with the patient gathering medical and family history and discussing the likelihood of a genetic predisposition to cancer and the option of genetic testing. Reason for referral/Chief complaint Personal history of metastatic prostate cancer. Medical history Cancer hx and treatment: Huber is a pleasant 67yo male with a diagnosis of metastatic prostate cancer. He is undergoing chemotherapy with docetaxel and is being followed by Dr. Burns in [facility]. 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 This variant is classified as pathogenic in the germline setting by [employer], and is classified as likely pathogenic in the germline setting by [employer]. Family History of Cancer Problem Relation Age of Onset Breast Cancer Mother 73 Cancer Paternal Uncle 55 unknown primary, suspected stomach/abdominal Maternal ethnic background is [place]. Paternal ethnic background is [place]. There is no known Ashkenazi Yazidism ancestry. Genetic risk assessment Based on personal and/or family history, the likelihood that Huber would be found to have a mutation in a cancer predisposition gene is high enough to offer the option of genetic testing. Specifically, Huber meets NCCN criteria for BRCA1/2 gene analysis based on his diagnosis of metastatic prostate cancer. Genetic test results may inform Huber and his family members of their genetic cancer risks and guide cancer screening recommendations. Additionally, genetic test results may help informHuber's eligibility for certain drug treatments, such as PARP inhibitors. Panel genetic testing for an inherited predisposition to cancer, including prostate cancer, was discussed. The risks, benefits and limitations of panel genetic testing were reviewed, specifically a high rate of identifying a variant of uncertain significance, lack of knowledge of cancer risk for newly identified, moderate risk genes included in the panel and lack of effective screening, as well as cancer risk for other cancers not observed in the family. We reviewed dominant inheritance, meaning that if a mutation is detected there is a 50% chance for Huber's sisters to have also inherited the same gene alteration. We discussed the Genetic Information Nondiscrimination Act (ORIANA), a federal law prohibiting discrimination by health insurance companies and most employers based on genetic information. ORIANA does not apply to life insurance, disability insurance or long-term care insurance. More information about ORIANA may be found at [email or web address]. Huber opted for testing with [employer]' CancerNext-Expanded Panel, a next generation sequencing panel that simultaneously analyzes 77 genes, including BRCA1 and BRCA2, that contribute to increased risk for cancer. Huber was verbally consented and will be sent consent forms via [employer] to review, sign, and return. Orders for the saliva kit will be placed after signed consents are received. [facility] will send a saliva collection kit with prepaid return envelope directly to Huber's home to obtain a sample. Instructions for sample collection and return are provided within the kit. We reviewed [employer]'s billing policy. Huber will be notified by text and/or email once [employer] completes their benefits investigation if his estimated out of pocket cost is over $100. At that time, if Huber is concerned about the estimated test cost he will have the option to contact [facility] directlyand either apply for [employer]'s patient assistance program to try and reduce cost of testing based on income information, cancel testing, or switch to a self-pay option of $250. If Huber does not respond to [employer], testing will be billed to his insurance as the default option. Testing will take up to 3 weeks from when the lab receives the sample. Huber will be contacted via telephone once his test results become available. At that time, we will discuss with Huber the implications that this test result may have for him as well as his family members, review any recommended screening guidelines for cancer prevention and early detection, and answer any questions he mayhave. documented in this encounter Plan of Treatment Upcoming Encounters Date Type Department Care Team (Late st Contact Info) Description 10/16/2023 2:30 PM EDT Office Visit Hematology/Oncology at [address] [phone] Fiordaliza Downing APRN [facility] [place] [address] 11/10/2023 9:00 AM EDT Appointment [place] [address] Thomas Curtis MD [facility] [place]ATOLOG[place] [address] 11/21/2023 11:00 AM EDT Infusion Hematology Oncology at [address] [phone] 12/05/2023 1:30 PM EDT Office Visit Hematology/Oncology at [address] [phone] Thomas Curtis MD [facility] [place]OLOG[place] [address] Fiordaliza Downing APRN [facility] [place] [address] 12/26/2023 9:00 AM EDT Appointment [place] [phone] Thomas Curtis MD [facility] [place]ATOLOG[place] [address] 02/09/2024 8:00 AM EST Appointment [place] [phone] Thomas Curtis MD [facility] [place]ATOLOGY [place] [address] 03/18/2024 3:00 PM EST Office Visit Cardiology at [address] [phone] Sameer Rudolph MD [facility] [place] [address] 03/22/2024 9:00 AM EST Appointment [place] [phone] Thomas Curtis MD [facility] [place]OLOG[place] [address] 08/23/2024 Hospital Encounter Main Operating Room [facility] [place] [phone] True Juarez MD [facility] [place] [address] Scheduled Procedures Name Priority Associated Diagnoses Date/Ti me CYSTO, STENT PLACEMENT (WRVU 2.82) Hydronephrosis with ureteral stricture, not elsewhere classified CYSTO, REMOVAL OF STENT, FOR EIGN BODY OR CALCULUS, SIMPLE (WRVU 2.81) Hydronephrosis with ureteral stricture, not elsewhere classified Scheduled Referrals Name Type Priority Associated Diagnoses Orde r Schedule Referral to Familial Cancer Outpatient Referral Routine Malignant neoplasm of prostate metastatic to bone Ordered: 01/31/2023 documented as of this encounter Visit Diagnoses Diagnosis Malignant neoplasm of prostate metastatic to bone Malignant neoplasm of prostate Family history of malignant neoplasm of breast Family history of unspecified malignant neoplasm documented in this encounter Care Teams Steamer Blocker Relationship Specialty Start Date End Date Nicolasa Valenzuela PA [address] [place] [address] PCP - General Family Medicine 12/20/21 documented as of this encounter
--- OUTSIDE RECORDS SUMMARY | 2023-10-16 03:15 | XMS_ITS | Encounter Summary ---
Author Organization [facility] Address [facility] [place] [address] Care Team Providers Care Liability Claims Representative Name Role Phone Nicolasa Valenzuela Primary Care Pro vider Reason for Visit * Reason Onset Date Comments Follow-up 02/08/2023 Encounter Details Date Type Department Care Team (Late st Contact Info) Description 02/08/2023 Telephone Hematology/Oncology at [address] [phone] Alexsandra Maurice RN Follow-up Social History Tobacco Use Types Packs/Day Years Used Date Smoking Tobacco: Never Smokeless Tobacco: Never Alcohol Use Standard Drinks/Week Comments Not Currently 0 (1 standard drink = 0.6 oz pur e alcohol) [facility] Utilities Answer Date Recorded In the past 12 months has e electric, gas, oil, or water [employer] threatened to shut off services in your [...] Telephone Encounter - Alexsandra Maurice RN - 02/08/2023 1:32 PM EST Called Huber Keys and made him aware. He was thankful for the follow up. ----- Message from Fiordaliza Downing APRN sent at 02/08/2023 10:46 AM EST ----- Please call Huber and let him know ok to continue collagen peptides. No interaction with his chemotherapy. documented in this encounter Plan of Treatment Upcoming Encounters Date Type Department Care Team (Late st Contact Info) Description 10/16/2023 2:30 PM EDT Office Visit Hematology/Oncology at [address] [phone] Fiordaliza Downing APRN [facility] [place]ICAL [place] [address] 11/10/2023 9:00 AM EDT Appointment [place] [phone] Thomas Curtis MD [facility] [place] [address] 11/21/2023 11:00 AM EDT Infusion Hematology Oncology at [address] [phone] 12/05/2023 1:30 PM EDT Office Visit Hematology/Oncology at [address] [phone] Thomas Curtis MD [facility] [place] [address] Fiordaliza Downing APRN [facility] [place] [address] 12/26/2023 9:00 AM EDT Appointment [place] [phone] Thomas Curtis MD [facility] [place] [address] 02/09/2024 8:00 AM EST Appointment [place] [phone] Thomas Curtis MD [facility] [place] [address] 03/18/2024 3:00 PM EST Office Visit Cardiology at [address] [phone] Sameer Rudolph MD [facility] [place] [address] 03/22/2024 9:00 AM EST Appointment [place] [phone] Thomas Curtis MD [facility] [place] [address] 08/23/2024 Hospital Encounter Main Operating Room [facility] [place] [address] True Juarez MD [facility] [place] [address] Scheduled Procedures Name Priority Associated Diagnoses Date/Ti me CYSTO, STENT PLACEMENT (WRVU 2.82) Hydronephrosis with ureteral stricture, not elsewhere classified CYSTO, REMOVAL OF STENT, FOR EIGN BODY OR CALCULUS, SIMPLE (WRVU 2.81) Hydronephrosis with ureteral stricture, not elsewhere classified documented as of this encounter Visit Diagnoses Not on filedocumented in this encounter Care Teams Liability Claims Representative Relationship Specialty Start Date End Date Nicolasa Valenzuela PA [address] [place] [address] PCP - General Family Medicine 12/20/21 documented as of this encounter
--- OUTSIDE RECORDS SUMMARY | 2023-10-16 03:15 | XMS_ITS | Encounter Summary ---
Author Organization [facility] Address [facility] [place] [address] Care Team Providers Care Aviation All Source Intelligence Name Role Phone Nicolasa Valenzuela Primary Care Pro vider Encounter Details Date Type Department Care Team (Late st Contact Info) Description 02/15/2023 Notes Only Hematology [place] [address] Brittney Cain MD [facility] [place] [address] Social History Tobacco Use Types Packs/Day Years Used Date Smoking Tobacco: Never Smokeless Tobacco: Never Alcohol Use Standard Drinks/Week Comments Not Currently 0 (1 standard drink = 0.6 oz pur e alcohol) [facility] Utilities Answer Date Recorded In the past 12 months has [employer], gas, oil, or water [employer] threatened to shut off services in your [...] as of this encounter Progress Notes * Brittney Cain MD - 02/15/2023 5:58 PM EST Images from the original note were not included. Patient Name: Huber Keys : 1955 I have reviewed the patient's record and, given personal and/or family history of cancer, Huber Hill should be seen by a genetic counselor. The appointment has been scheduled with [facility] Genetics. Brittney Cain MD Medical Oncology [facility] Cancer [place] [employer] Consultant[employer]ass Cutter [employer], [employer] Cancer.[facility] [email or web address] [facility] documented in this encounter Plan of Treatment Upcoming Encounters Date Type Department Care Team (Late st Contact Info) Description 10/16/2023 2:30 PM EDT Office Visit Hematology/Oncology at [address] [phone] Fiordaliza Downing, ENROLLMENT NURSE [facility] [place] [address] 11/10/2023 9:00 AM EDT Appoint[place] [address] Thomas Curtis MD [facility] [place] [address] 11/21/2023 11:00 AM EDT Infusion Hematology Oncology at [address] [phone] 12/05/2023 1:30 PM EDT Office Visit Hematology/Oncology at [address] [phone] Thomas Curtis MD [facility] [place] [address] Fiordaliza Downing APRN [facility] [place] [address] 12/26/2023 9:00 AM EDT Appoint[place] [address] Thomas Curtis MD [facility] [place] [address] 02/09/2024 8:00 AM EST Appoint[place] [address] Thomas Curtis MD [facility] [place] [address] 03/18/2024 3:00 PM EST Office Visit Cardiology at [address] [phone] Sameer Rudolph MD [facility] [place] [address] 03/22/2024 9:00 AM EST Appointment Nuclear Medicine at [place] [phone] Thomas Curtis MD [facility] [place] [address] 08/23/2024 Hospital Encounter [place] [address] True Juarez MD [facility] UROLOGY [place], [place] [phone] Scheduled Procedures Name Priority Associated Diagnoses Date/Ti me CYSTO, STENT PLACEMENT (WRVU 2.82) Hydronephrosis with ureteral stricture, not elsewhere classified CYSTO, REMOVAL OF STENT, FOR EIGN BODY OR CALCULUS, SIMPLE (WRVU 2.81) Hydronephrosis with ureteral stricture, not elsewhere classified documented as of this encounter Visit Diagnoses Not on filedocumented in this encounter Care Teams Aviation All Source Intelligence Relationship Specialty Start Date End Date Nicolasa Valenzuela PA [address] [place] [address] PCP - General Family Medicine 12/20/21 documented as of this encounter
--- OUTSIDE RECORDS SUMMARY | 2023-10-16 03:15 | XMS_ITS | Encounter Summary ---
Author Organization [facility] Address [facility] [place] [address] Care Team Providers Care Batch Heat Treat Operator Name Role Phone Nicolasa Valenzuela Primary Care Pro vider Reason for Visit * Reason Onset Date Comments Follow-up 02/14/2023 Encounter Details Date Type Department Care Team (Late st Contact Info) Description 02/14/2023 Telephone Hematology/Oncology at [address] [phone] Alexsandra Maurice RN Follow-up Social History Tobacco Use Types Packs/Day Years Used Date Smoking Tobacco: Never Smokeless Tobacco: Never Alcohol Use Standard Drinks/Week Comments Not Currently 0 (1 standard drink = 0.6 oz pur e alcohol) [facility] Utilities Answer Date Recorded In the past 12 months has e electric, gas, oil, or water [employer] threatened to shut off services in [...] Telephone Encounter - Alexsandra Maurice RN - 02/14/2023 3:03 PM EST Received fax from [employer] re needed annual gross income for PAF application. It was sent on 02/06. Called [employer] to confirm if they really need this and they said no, that the application is moving forward and was sent to benefits investigation yesterday. Nothing further needed at this time. documented in this encounter Plan of Treatment Upcoming Encounters Date Type Department Care Team (Late st Contact Info) Description 10/16/2023 2:30 PM EDT Office Visit Hematology/Oncology at [address] [phone] Fiordaliza Downing APRN [facility] DR MEDICAL ONCOLOGY [place], [place] [phone] 11/10/2023 9:00 AM EDT Appointment [place] [phone] Thomas Curtis MD [facility] HEMATOLOGY [place] [address] 11/21/2023 11:00 AM EDT Infusion Hematology Oncology at [address] [phone] 12/05/2023 1:30 PM EDT Office Visit Hematology/Oncology at [address] [phone] Thomas Curtis MD [facility] HEMATOLOGY [place] [address] Fiordaliza Downing APRN [facility] [place] [address] 12/26/2023 9:00 AM EDT Appointment [place] [phone] Thomas Curtis MD [facility] HEMATOLOGY [place] [address] 02/09/2024 8:00 AM EST Appointment [place] [phone] Thomas Curtis MD [facility] HEMATOLOGY [place] [address] 03/18/2024 3:00 PM EST Office Visit Cardiology at [address] [place] [phone] Sameer Rudolph MD [facility] [place] [address] 03/22/2024 9:00 AM EST Appointment [place] [phone] Thomas Curtis MD [facility] HEMATOLOGY [place] [address] 08/23/2024 Hospital Encounter Main Operating Room [facility] [place] [phone] True Juarez MD [facility] [place] [address] Scheduled Procedures Name Priority Associated Diagnoses Date/Ti me CYSTO, STENT PLACEMENT (WRVU 2.82) Hydronephrosis with ureteral stricture, not elsewhere classified CYSTO, REMOVAL OF STENT, FOR EIGN BODY OR CALCULUS, SIMPLE (WRVU 2.81) Hydronephrosis with ureteral stricture, not elsewhere classified documented as of this encounter Visit Diagnoses Not on filedocumented in this encounter Care Teams Batch Heat Treat Operator Relationship Specialty Start Date End Date Nicolasa Valenzuela PA [address] [place] [address] PCP - General Family Medicine 12/20/21 documented as of this encounter
--- OUTSIDE RECORDS SUMMARY | 2023-10-16 03:15 | XMS_ITS | Encounter Summary ---
Author Organization [facility] [place] [address] Care Team Providers Care Pin Sorter And Bagger Name Role Phone Nicolasa Valenzuela Primary Care Pro vider Reason for Visit * Treatment/Therapy Plan Authorization (Routine) - Closed Specialty Diagnoses / Procedures Referred By Toño mayorga Referred To Contact Hematology and Oncology Diagnoses Prostate cancer metastatic to multiple sites High risk medication use Procedures TC DOCETAXEL, 1MG, INJECTION TC PEGFILGRASTIM, EXCLUDES BIOSIMILAR, 0.5 MG, INJ J9171 TAXOTERE J2506 NEULASTA ONPRO Thomas Curtis MD [address] [place] [address] [place] [address] Thomas Curtis MD [address] [place] [address] [place] [address] Referral ID Status Reason Start Date Expiration Date Visits Re quested Visits Authorized [id number] Closed 01/31/2023 01/31/2024 99 101 Encounter Details Date Type Department Care Team (Late st Contact Info) Description 02/28/2023 10:30 AM EST Infusion Hematology Oncology at [address] [phone] Prostate cancer metastatic to multiple [...] as of this encounter Progress Notes * Eve Escamilla, RN - 02/28/2023 10:30 AM EST INFUSION THERAPY ADMINISTRATION NOTES DIAGNOSIS: prostate cancer CYCLE #: 2, Day 1; docetaxol and onpro REASON FOR VISIT: Chemotherapy SUBJECTIVE Huber Keys offers no complaints. OBJECTIVE LAB DATA: done today and adequate for treatment IV ACCESS: PIV placed and removed after treatment, Pt reports he is getting a port around March 09. Pre administration: Chemotherapy orders independently verified for drug name, route, and dosage per patient's height, weight and BSA by EVE ESCAMILLA, RN & onsite pharmacists REACTIONS (DESCRIPTION, TIME, INTERVENTION AND EFFECTIVENESS) none ASSESSMENT Huber Keys was awake, alert and tolerated treatment well. OnPro applied at 1318. Due to start deploying dose of medication at 1618. Patient instructed to remove at 03/01 when meter reads empty and light is solid green. Verbal and written instruction given to patient. Pt. chemo teaching instructions included: During clinic hours (8am-5pm Monday-Monday): pt. can call [phone] questions or concerns. After clinic hours (5pm-8am Monday-Monday and weekends) pt can call [phone] and ask for the human resources clerk/oncologist aviation operations specialist. Huber Kennedy Evanclaritza verbalized understanding of potential chemotherapy side effects and home care including but not limited to- handwashing to prevent infection, signs and symptoms of low blood counts(fever, fatigue, bleeding), to call with a fever of 100.4 or greater, any significant constipation/diarrhea, importance of nutrition and fluid intake (drinking at least 32-64 ounces of non-caffeinated beverages/day), mouth care. Huber Brent Keys verbalized understanding of how to take prescription medications given for home use after chemotherapy. PLAN Return to clinic per routine. documented in this encounter Plan of Treatment Upcoming Encounters Date Type Department Care Team (Late st Contact Info) Description 10/16/2023 2:30 PM EDT Office Visit Hematology/Oncology at [address] [phone] Fiordaliza Downing APRN [facility] [place] [address] 11/10/2023 9:00 AM EDT Appointment [place] [address] Thomas Curtis MD [facility] DR [place] [address] 11/21/2023 11:00 AM EDT Infusion Hematology Oncology at [address] [phone] 12/05/2023 1:30 PM EDT Office Visit Hematology/Oncology at [address] [phone] Thomas Curtis MD [facility] [place] [address] Fiordaliza Downing APRN [facility] [place] [address] 12/26/2023 9:00 AM EDT Appointment [place] [phone] Thomas Curtis MD [facility] [place] [address] 02/09/2024 8:00 AM EST Appointment [place] [phone] Thomas Curtis MD [facility] [place] [address] 03/18/2024 3:00 PM EST Office Visit Cardiology at [address] [phone] Sameer Rudolph MD [facility] [place] [address] 03/22/2024 9:00 AM EST Appointment [place] [phone] Thomas Curtis MD [facility] [place] [address] 08/23/2024 Hospital Encounter Main Operating Room [facility] [place] [phone] True Juarez MD [facility] [place] [address] Scheduled Procedures Name Priority Associated Diagnoses Date/Ti [...] 10 mg, Intravenous, ONCE, 1 dose, On Mon02/28/23 at 1100, Administer 60 minutes prior to DOCEtaxel Given 02/28/2023 10:55 AM EST 10 mg diphenhydrAMINE (Benadryl) capsule 50 mg 50 mg, Oral, ONCE, 1 dose, On Mon02/28/23 at 1100, Administer 60 minutes prior to DOCEtaxel, Routine Given 02/28/2023 10:55 AM EST 50 mg DOCEtaxeL (Taxotere) 140 mg in sodium chloride 0.9% Non-PVC 257 mL infusion 140 mg, Intravenous, ONCE, 1 dose, On Mon02/28/23 at 1200, Administer over 60 Minutes, Warning Vesicant/Irritant Medication 3 Step Titration for [...] Infusion? Initial: 3 Step Titration New Bag 02/28/2023 11:43 AM EST 140 mg 257 mL/hr famotidine (Pepcid) (10 mg/mL) injection 20 mg 20 mg, Intravenous, ONCE, 1 dose, On Mon02/28/23 at 1100, Administer 60 minutes prior to DOCEtaxel Given 02/28/2023 10:56 AM EST 20 mg pegfilgrastim (Neulasta Onpro) (6 mg/0.6 mL) injection kit 6 mg 6 mg, Subcutaneous, ONCE, 1 dose, On Mon02/28/23 at 1100, Allow the prefilled syringe co-packaged with the on-body injector to reach room temperature at least 30 minutes prior to administration., Routine, This agent is restricted to outpatient use. Is this drug being given as an outpatient? Yes Given 02/28/2023 1:18 PM EST 6 mg sodium chloride 0.9% infusion 100 mL/hr, Intravenous, CONTINUOUS, Starting on Mon02/28/23 at 1100, Until Mon02/28/23 at 1839 New Bag 02/28/2023 10:57 AM EST 100 mL/hr 100 mL/hr documented in this encounter Care Teams Pin Sorter And Bagger Relationship Specialty Start Date End Date Nicolasa Valenzuela PA [address] [place] [address] PCP - General Family Medicine 12/20/21 documented as of this encounter
--- OUTSIDE RECORDS SUMMARY | 2023-10-16 03:15 | XMS_ITS | Encounter Summary ---
Author Organization [facility] Address [facility] [place] [address] Care Team Providers Care Middle School Counselor Name Role Phone Nicolasa Valenzuela Primary Care Pro vider Reason for Visit * Reason Onset Date Comments Prior Authorization 02/10/2023 Molecular ca ncer testing CPT 12077 is a covered benefit. Encounter Details Date Type Department Care Team (Late st Contact Info) Description 02/10/2023 Telephone [place] [phone] Nhi Rodriguez Prior Authorization (Molecular cancer testing CPT 69249 is a covered benefit. ) Social History Tobacco Use Types Packs/Day Years Used Date Smoking Tobacco: Never Smokeless Tobacco: Never Alcohol Use Standard Drinks/Week Comments Not Currently 0 (1 standard drink = 0.6 oz pur e alcohol) [facility] Utilities Answer Date Recorded In the past 12 months has [employer], gas, oil, or water [employer] threatened to shut off services in your [...] encounter Miscellaneous Notes * Telephone Encounter - Nhi Rodriguez - 02/10/2023 12:04 PM ESTSummary: Molecular cancer testing CPT 99603 is a covered benefit. 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 Ordering provider: Evangelist Sparks MD. Upon review, the patient's traditional Medicare A&B policy [id number] and secondary AARP [id number] are active. Per Medicare's website, CPT 82504 is a covered benefit with no authorization needed. I will e-mail Tamia to let her know CPT 05282 is a covered benefit. documented in this encounter Plan of Treatment Upcoming Encounters Date Type Department Care Team (Late st Contact Info) Description 10/16/2023 2:30 PM EDT Office Visit Hematology/Oncology at [address] [phone] [facility] [place] [address] 11/10/2023 9:00 AM EDT Appointment [place] [address] [facility] [place] [address] 11/21/2023 11:00 AM EDT Infusion Hematology Oncology at [address] [phone] 12/05/2023 1:30 PM EDT Office Visit Hematology/Oncology at [address] [phone] [facility] [place] [address] [facility] [place] [address] 12/26/2023 9:00 AM EDT Appointment [place] [address] [facility] [place] [address] 02/09/2024 8:00 AM EST Appointment [place] [phone] [facility] [place] [address] 03/18/2024 3:00 PM EST Office Visit Cardiology at [address] [place] [phone] [facility] [place] [address] 03/22/2024 9:00 AM EST Appointment [place] [address] [facility] [place] [address] 08/23/2024 Hospital Encounter [place] [phone] [facility] UROLOGY [place], [place] [phone] Scheduled Procedures Name Priority Associated Diagnoses Date/Ti me CYSTO, STENT PLACEMENT (WRVU 2.82) Hydronephrosis with ureteral stricture, not elsewhere classified CYSTO, REMOVAL OF STENT, FOR EIGN BODY OR CALCULUS, SIMPLE (WRVU 2.81) Hydronephrosis with ureteral stricture, not elsewhere classified documented as of this encounter Visit Diagnoses Not on filedocumented in this encounter Care Teams Middle School Counselor Relationship Specialty Start Date End Date Nicolasa Valenzuela PA [address] [place] [address] PCP - General Family Medicine 12/20/21 documented as of this encounter
--- OUTSIDE RECORDS SUMMARY | 2023-10-16 03:15 | XMS_ITS | Encounter Summary ---
Author Organization [facility] Address [facility] [place] [address] Care Team Providers Care Steel Wool Machine Operator Name Role Phone Nicolasa Valenzuela Primary Care Pro vider Reason for Visit * Reason Onset Date Comments Follow-up 02/23/2023 Still pending ap plication for free drug Encounter Details Date Type Department Care Team (Late st Contact Info) Description 02/23/2023 Telephone Hematology/Oncology at [address] [phone] Cara Pham RN Follow-up (Still pending application for free drug) Social History Tobacco Use Types Packs/Day Years Used Date Smoking Tobacco: Never Smokeless Tobacco: Never Alcohol Use Standard Drinks/Week Comments Not Currently 0 (1 standard drink = 0.6 oz pur e alcohol) [facility] Utilities Answer Date Recorded In the past 12 months has [employer], gas, oil, or water [employer] threatened to shut off services in your [...] Telephone Encounter - Cara Pham RN - 02/23/2023 11:25 AM EST Spoke with aniket at [employer] Pt assistance [employer] for Nubeqa he states the application is in review he does not know how long it will take for them to review it , everthing they need for the application is there. documented in this encounter Plan of Treatment Upcoming Encounters Date Type Department Care Team (Late st Contact Info) Description 10/16/2023 2:30 PM EDT Office Visit Hematology/Oncology at [address] [phone] Fiordaliza Downing APRN [facility] [place] [address] 11/10/2023 9:00 AM EDT Appoint[place] [address] Thomas Curtis MD [facility] HEMATOLOGY [place] [address] 11/21/2023 11:00 AM EDT Infusion Hematology Oncology at [address] [phone] 12/05/2023 1:30 PM EDT Office Visit Hematology/Oncology at [address] [phone] Thomas Curtis MD [facility]ATOLOG[facility] [place] [address] Fiordaliza Downing APRN [facility] [place] [address] 12/26/2023 9:00 AM EDT Appointment [place] [phone] Thomas Curtis MD [facility] [place] [address] 02/09/2024 8:00 AM EST Appointment [place] [phone] Thomas Curtis MD [facility] [place] [address] 03/18/2024 3:00 PM EST Office Visit Cardiology at [address] [place] [address] Sameer Rudolph MD [facility] [place] [address] 03/22/2024 9:00 AM EST Appointment [place] [phone] Thomas Curtis MD [facility] [place] [address] 08/23/2024 Hospital Encounter Main Operating [place] [phone] True Juarez MD [facility] [address] Scheduled Procedures Name Priority Associated Diagnoses Date/Ti me CYSTO, STENT PLACEMENT (WRVU 2.82) Hydronephrosis with ureteral stricture, not elsewhere classified CYSTO, REMOVAL OF STENT, FOR EIGN BODY OR CALCULUS, SIMPLE (WRVU 2.81) Hydronephrosis with ureteral stricture, not elsewhere classified documented as of this encounter Visit Diagnoses Not on filedocumented in this encounter Care Teams Steel Wool Machine Operator Relationship Specialty Start Date End Date Nicolasa Valenzuela PA [address] [place] [address] PCP - General Family Medicine 12/20/21 documented as of this encounter
--- OUTSIDE RECORDS SUMMARY | 2023-10-16 03:15 | XMS_ITS | Encounter Summary ---
Author Organization [facility] Address [facility] [place] [address] Care Team Providers Care Head Cd Reactor Operator Name Role Phone Nicolasa Valenzuela Primary Care Pro vider Encounter Details Date Type Department Care Team (Latest Contact Info) Description 12/27/2022 Travel Social History Tobacco Use Types Packs/Day [...] slept in a prison (including now)? No 10/31/2022 Sex and Gender Information Value Date Recorded Sex Assigned at Not on file Gender Identity Not on file Sexual Orientation Not on file documented as of this encounter Plan of Treatment Upcoming Encounters Date Type Department Care Team (Late st Contact Info) Description 10/16/2023 2:30 PM EDT Office Visit Hematology/Oncology at [address] [phone] Fiordaliza Downing APRN [facility] [place] [address] 11/10/2023 9:00 AM EDT Appointment [place] [address] Thomas Curtis MD [facility] HEMATOLOGY [place] [address] 11/21/2023 11:00 AM EDT Infusion Hematology Oncology at [address] [phone] 12/05/2023 1:30 PM EDT Office Visit Hematology/Oncology at [address] [phone] Thomas Curtis MD [facility] HEMATOLOGY [place] [address] Fiordaliza Downing APRN [facility] [place] [address] 12/26/2023 9:00 AM EDT Appointment [place] [phone] Thomas Curtis MD [facility] HEMATOLOGY [place] [address] 02/09/2024 8:00 AM EST Appointment Nuclear Medicine at [place] [phone] Thomas Curtis MD [facility] HEMATOLOGY [place] [address] 03/18/2024 3:00 PM EST Office Visit Cardiology at [address] [phone] Sameer Rudolph MD [facility] [place] [address] 03/22/2024 9:00 AM EST Appointment [place] [address] Thomas Curtis MD [facility] HEMATOLOGY [place] [address] 08/23/2024 Hospital Encounter [place] [address] True Juarez MD [facility] [place] [address] Scheduled Procedures Name Priority Associated Diagnoses Date/Ti me CYSTO, STENT PLACEMENT (WRVU 2.82) Hydronephrosis with ureteral stricture, not elsewhere classified CYSTO, REMOVAL OF STENT, FOR EIGN BODY OR CALCULUS, SIMPLE (WRVU 2.81) Hydronephrosis with ureteral stricture, not elsewhere classified documented as of this encounter Visit Diagnoses Not on filedocumented in this encounter Care Teams Head Cd Reactor Operator Relationship Specialty Start Date End Date Nicolasa Valenzuela PA [address] [place] [address] PCP - General Family Medicine 12/20/21 documented as of this encounter
--- OUTSIDE RECORDS SUMMARY | 2023-10-16 03:15 | XMS_ITS | Encounter Summary ---
Author Organization [facility] Address [facility] [place] [address] Care Team Providers Care Keno Writer Name Role Phone Nicolasa Valenzuela Primary Care Pro vider Reason for Visit * Reason Comments Specialty Pharmacy Review Nubeqa 300mg t ablet Encounter Details Date Type Department Care Team (Late st Contact Info) Description 02/01/2023 Specialty [place] [address] Estefany Rain, EYEGLASS LENS CUTTER Social History Tobacco Use Types Packs/Day Years Used Date Smoking Tobacco: Never Smokeless Tobacco: Never Alcohol Use Standard Drinks/Week Comments Not Currently 0 (1 standard drink = 0.6 oz pur e alcohol) [facility] Utilities Answer Date Recorded In the past 12 months has e [employer], gas, oil, or water [employer] threatened to shut off services in your [...] slept in a longterm (including now)? No 01/31/2023 Sex and Gender Information Value Date Recorded Sex Assigned at Not on file Gender Identity Not on file Sexual Orientation Not on file documented as of this encounter Progress Notes * Estefany Rain - 02/01/2023 11:59 PM EST The [facility] has completed a benefits investigation for Huber Keys to review their eligibility to fill at [facility]. Per patient's medication list they are prescribed Nubeqa 300mg tablet and the medication is able to be filled at the [facility], but the medication cost may not be financially viable. The patient is eligible to fill the medication through Specialty Pharmacy with a high copay. PA is approved until 01/31/2024. The patient is filling the medication through the family day carer due to the high copay documented in this encounter Plan of Treatment Upcoming Encounters Date Type Department Care Team (Late st Contact Info) Description 10/16/2023 2:30 PM EDT Office Visit Hematology/Oncology at [address] [phone] Fiordaliza Downing APRN [facility] [place] [address] 11/10/2023 9:00 AM EDT Appointment [place] [address] Thomas Curtis MD [facility] HEMATOLOG[place] [address] 11/21/2023 11:00 AM EDT Infusion Hematology Oncology at [address] [phone] 12/05/2023 1:30 PM EDT Office Visit Hematology/Oncology at [address] [phone] Thomas Curtis MD [facility]EM[facility] [address] Fiordaliza Downing APRN [facility] [place] [address] 12/26/2023 9:00 AM EDT Appointment [place] [address] Thomas Curtis MD [facility] [place] [address] 02/09/2024 8:00 AM EST Appointment [place] [address] Thomas Curtis MD [facility] [place] [address] 03/18/2024 3:00 PM EST Office Visit Cardiology at [address] [phone] Sameer Rudolph MD [facility] [place] [address] 03/22/2024 9:00 AM EST Appointment [place] [address] Thomas Curtis MD [facility] [place] [address] 08/23/2024 Hospital Encounter [place] [phone] True Juarez MD [facility] [place] [address] Scheduled Procedures Name Priority Associated Diagnoses Date/Ti me CYSTO, STENT PLACEMENT (WRVU 2.82) Hydronephrosis with ureteral stricture, not elsewhere classified CYSTO, REMOVAL OF STENT, FOR EIGN BODY OR CALCULUS, SIMPLE (WRVU 2.81) Hydronephrosis with ureteral stricture, not elsewhere classified documented as of this encounter Visit Diagnoses Not on filedocumented in this encounter Care Teams Keno Writer Relationship Specialty Start Date End Date Nicolasa Valenzuela PA [address] [place] [address] PCP - General Family Medicine 12/20/21 documented as of this encounter
--- OUTSIDE RECORDS SUMMARY | 2023-10-16 03:15 | XMS_ITS | Encounter Summary ---
Author Organization [facility] Address [facility] [place] [address] Care Team Providers Care Presales Consultant Name Role Phone Nicolasa Valenzuela Primary Care Pro vider Reason for Visit * Reason Onset Date Comments Labs Only 02/28/2023 High potassium Encounter Details Date Type Department Care Team (Late st Contact Info) Description 02/28/2023 Telephone Hematology/Oncology at [address] [phone] Cara Pham, SHIVAM Labs Only (High potassium) Social History Tobacco Use Types Packs/Day Years Used Date Smoking Tobacco: Never Smokeless Tobacco: Never Alcohol Use Standard Drinks/Week Comments Not Currently 0 (1 standard drink = 0.6 oz pur e alcohol) [facility] Utilities Answer Date Recorded In the past 12 months has [employer], gas, oil, or water [employer] threatened to shut off services in your [...] in a long-term (including now)? No 01/31/2023 Sex and Gender Information Value Date Recorded Sex Assigned at Not on file Gender Identity Not on file Sexual Orientation Not on file documented as of this encounter Miscellaneous Notes * Telephone Encounter - Cara Pham RN - 02/28/2023 10:58 AM EST Called and left message at PCP(Nicolasa Valenzuela [phone]) office for her to review high potassium of 5.[address] Curtis. Faxed [phone]) labs from today to her office. She can call back with questions or concerns. documented in this encounter Plan of Treatment Upcoming Encounters Date Type Department Care Team (Late st Contact Info) Description 10/16/2023 2:30 PM EDT Office Visit Hematology/Oncology at [address] [phone] Fiordaliza Downing APRN [facility] [place] [address] 11/10/2023 9:00 AM EDT Appointment [place] [address] Thomas Curtis MD [facility] HEMATOLOGY [place] [address] 11/21/2023 11:00 AM EDT Infusion Hematology Oncology at [address] [phone] 12/05/2023 1:30 PM EDT Office Visit Hematology/Oncology at [address] [phone] Thomas Curtis MD [facility] HEMATOLOGY [place] [address] Fiordaliza Downing APRN [facility] [place] [address] 12/26/2023 9:00 AM EDT Appointment [place] [phone] Thomas Curtis MD [facility] HEMATOLOGY [place] [address] 02/09/2024 8:00 AM EST Appointment [place] [phone] Thomas Curtis MD [facility] HEMATOLOGY [place] [address] 03/18/2024 3:00 PM EST Office Visit Cardiology at [address] [place] [phone] Sameer Rudolph MD [facility] [place] [place] [address] 03/22/2024 9:00 AM EST Appointment [place] [phone] Thomas Curtis MD [facility] HEMATOLOGY [place] [address] 08/23/2024 Hospital Encounter Main Operating Room [facility] [place] [phone] True Juarez MD [facility] [place] [place] [address] Scheduled Procedures Name Priority Associated Diagnoses Date/Ti me CYSTO, STENT PLACEMENT (WRVU 2.82) Hydronephrosis with ureteral stricture, not elsewhere classified CYSTO, REMOVAL OF STENT, FOR EIGN BODY OR CALCULUS, SIMPLE (WRVU 2.81) Hydronephrosis with ureteral stricture, not elsewhere classified documented as of this encounter Visit Diagnoses Not on filedocumented in this encounter Care Teams Presales Consultant Relationship Specialty Start Date End Date Nicolasa Valenzuela PA [address] [place] [address] PCP - General Family Medicine 12/20/21 documented as of this encounter
--- OUTSIDE RECORDS SUMMARY | 2023-10-16 03:15 | XMS_ITS | Encounter Summary ---
Author Organization [facility] Address [facility] [place] [address] Care Team Providers Care Press Tender Short Goods Name Role Phone Nicolasa Valenzuela Primary Care Pro vider Encounter Details Date Type Department Care Team (Late st Contact Info) Description 01/18/2023 Ancillary Procedure Radiology Library [facility] [place] [address] Nicolasa Valenzuela PA [address] [place] [address] Social History Tobacco Use Types Packs/Day Years [...] slept in a snf (including now)? No 10/31/2022 Sex and Gender Information Value Date Recorded Sex Assigned at Not on file Gender Identity Not on file Sexual Orientation Not on file documented as of this encounter Plan of Treatment Upcoming Encounters Date Type Department Care Team (Late st Contact Info) Description 10/16/2023 2:30 PM EDT Office Visit Hematology/Oncology at [address] [phone] Fiordaliza Downing APRN [facility] [place] [address] 11/10/2023 9:00 AM EDT Appointment [place] [address] Thomas Curtis MD [facility] [place] [address] 11/21/2023 11:00 AM EDT Infusion Hematology Oncology at [address] [phone] 12/05/2023 1:30 PM EDT Office Visit Hematology/Oncology at [address] [phone] Thomas Curtis MD [facility] [place] [address] Fiordaliza Downing APRN [facility] [place] [address] 12/26/2023 9:00 AM EDT Appointment [place] [phone] Thomas Curtis MD [facility] [place] [address] 02/09/2024 8:00 AM EST Appointment [place] [phone] Thomas Curtis MD [facility] [place] [address] 03/18/2024 3:00 PM EST Office Visit Cardiology at [address] [phone] Sameer Rudolph MD [facility] [place] [address] 03/22/2024 9:00 AM EST Appointment [place] [phone] Thomas Curtis MD [facility] [place] [address] 08/23/2024 Hospital Encounter [place] [phone] True Juarez MD [facility] [place] [address] Scheduled Procedures Name Priority Associated Diagnoses Date/Ti me CYSTO, STENT PLACEMENT (WRVU 2.82) Hydronephrosis with ureteral stricture, not elsewhere classified CYSTO, REMOVAL OF STENT, FOR EIGN BODY OR CALCULUS, SIMPLE (WRVU 2.81) Hydronephrosis with ureteral stricture, not elsewhere classified documented as of this encounter Procedures Procedure Name Priority Date/Time Associated Diagnosis Comments FILM LIBRARY- STORAGE ONLY DXA IMAGES Routine 01/18/2023 12:00 AM EST documented in this encounter Results * Film Library- Storage Only DXA Images (01/18/2023 12:00 AM EST) Narrative [facility] - 02/08/2023 11:16 AM EST This exam is auto-finalizing. It's purpose is for storage only. Nicolasa MOLINA IMIsadora FILM LIBRARY ORDERABLES Performing Organization Address City/State/[facility] Co de Phone Number [place], [place] documented in this encounter Visit Diagnoses Not on filedocumented in this encounter Care Teams Press Tender Short Goods Relationship Specialty Start Date End Date Nicolasa Valenzuela PA [address] [place] [address] PCP - General Family Medicine 12/20/21 documented as of this encounter
--- OUTSIDE RECORDS SUMMARY | 2023-10-16 03:15 | XMS_ITS | Encounter Summary ---
Author Organization [facility] Address [facility] [place] [address] Care Team Providers Care Shiftman Name Role Phone Nicolasa Valenzuela Primary Care Pro vider Encounter Details Date Type Department Care Team (Late st Contact Info) Description 02/10/2023 Telephone Hematology Oncology at [address] [phone] Eve Escamilla, RN Social History Tobacco Use Types Packs/Day [...] Telephone Encounter - Eve Escamilla, RN - 02/10/2023 2:47 PM EST Caller: Huber Génesiskhangclaritza Relationship: Self Clarified Two Patient Identifiers: [x] Diagnosis:prostate cancer Treatment: Docetaxel with onpro Reason for Call: back pain Assessment: Huber called in complaining of back pain that starts between shoulder blades and radiates down his spine. Describes it as an ache 05/13 that norco helps with. States he has increased fatigue and sleeping more than before and thought maybe this was a result of decreased mobility. He wasa first time docetaxel 02/08 with onpro. He denied trauma, bending or twisting, denies fever, CP, orSOB. Recommendations/Plan: Explained he is likely experiencing bone pain from onpro and start taking Claritin once a day to see if that will help per consult with Dr. Curtis. Will follow up on Monday to assess if pain is relieved. Huber verbalized understanding of instructions and agreement with plan. Reminded Huber to call back with any questions/concerns. Select Specific Decision Support Tool Used: Provider Name of Guideline/Protocol Used: Dr. Villalpando documented in this encounter Plan of Treatment Upcoming Encounters Date Type Department Care Team (Late st Contact Info) Description 10/16/2023 2:30 PM EDT Office Visit Hematology/Oncology at [address] [phone] Fiordaliza Downing APRN [facility] [place] [place] [address] 11/10/2023 9:00 AM EDT Appointment [place] [phone] Thomas Curtis MD [facility] [place] [address] 11/21/2023 11:00 AM EDT Infusion Hematology Oncology at [address] [phone] 12/05/2023 1:30 PM EDT Office Visit Hematology/Oncology at [address] [phone] Thomas Curtis MD [facility] [place] [address] Fiordaliza Downing APRN [facility] [place] [address] 12/26/2023 9:00 AM EDT Appointment [place] [phone] Thomas Curtis MD [facility] [place] [address] 02/09/2024 8:00 AM EST Appointment [place] [phone] Thomas Curtis MD [facility] [place] [address] 03/18/2024 3:00 PM EST Office Visit Cardiology at [address] [place] [address] Sameer Rudolph MD [facility] [place] [address] 03/22/2024 9:00 AM EST Appointment [place] [address] Thomas Curtis MD [facility] [place] [address] 08/23/2024 Hospital Encounter [place] [phone] True Juarez MD [facility] [place], [place] [phone] Scheduled Procedures Name Priority Associated Diagnoses Date/Ti me CYSTO, STENT PLACEMENT (WRVU 2.82) Hydronephrosis with ureteral stricture, not elsewhere classified CYSTO, REMOVAL OF STENT, FOR EIGN BODY OR CALCULUS, SIMPLE (WRVU 2.81) Hydronephrosis with ureteral stricture, not elsewhere classified documented as of this encounter Visit Diagnoses Not on filedocumented in this encounter Care Teams Shiftman Relationship Specialty Start Date End Date Nicolasa Valenzuela PA [address] [place] [address] PCP - General Family Medicine 12/20/21 documented as of this encounter
--- OUTSIDE RECORDS SUMMARY | 2023-10-16 03:15 | XMS_ITS | Encounter Summary ---
Author Organization [facility] [place] [address] Care Team Providers Care Hose Mender Name Role Phone Nicolasa Valenzuela Primary Care Pro vider Reason for Referral * Consultation (Urgent) - Closed Specialty Diagnoses / Procedures Referred By Toño mayorga Referred To Contact Genetics Diagnoses Malignant neoplasm of prostate metastatic to bone Thomas Branch MD [facility] [address] [place] [address] [facility] [address] [place] [address] Referral ID Status Reason Start Date Expiration Date V isits Requested Visits Authorized [id number] Closed Consult, Test & Treat 01/31/2023 01/31/2024 1 1 * Diagnostic Test (Routine) - Closed Specialty Diagnoses / Procedures Referred By Toño mayorga Referred To Contact Radiology Diagnoses Malignant neoplasm of prostate metastatic to bone Procedures NM PET CT PSMA Prostate (Illuccix) Thomas Branch MD [facility] DR [place] [address] [facility] [place] [address] Referral ID Status Reason Start Date Expiration Date V isits Requested Visits Authorized [id number] Closed Specialty Service Requested 01/31/2023 07/31/2024 1 2 Reason for Visit * Consultation (Routine) - Closed Specialty Diagnoses / Procedures Referred By Contac t Referred To Contact Hematology and Oncology Diagnoses Malignant neoplasm of prostate metastatic to bone Nabor Byrne MD [facility] [address] [place] [address] Thomas Branch MD [address] [place] [address] DR [place] [address] Referral ID Status Reason Start Date Expiration Date V isits Requested Visits Authorized [id number] Closed Transfer of Care 12/27/2022 12/27/2023 1 1 Encounter Details Date Type Department Care Team (Late st Contact Info) Description 01/31/2023 3:00 PM EST Office Visit Hematology/Oncology at [address] [phone] Thomas Branch MD [facility] DR [place] [address] Malignant neoplasm of prostate metastatic to bone (Primary Dx) Social History Tobacco Use Types Packs/Day Years Used Date Smoking Tobacco: Never Smokeless Tobacco: Never Alcohol Use Standard Drinks/Week Comments Not Currently 0 (1 standard drink = 0.6 oz pur e alcohol) [facility] Utilities Answer Date Recorded In the past 12 months has [employer], gas, oil, or water company threatened [...] Sign Reading Time Taken Comments Blood Pressure - - Pulse 82 01/31/2023 3:29 PM EST Temperature 36.3 ??C (97.3 ??F) 01/31/2023 3:29 PM ES T Respiratory Rate 16 01/31/2023 3:29 PM EST Oxygen Saturation 100% 01/31/2023 3:29 PM EST Inhaled Oxygen Concentration - - Weight 83 kg (183 lb) 01/31/2023 3:29 PM EST Height 175.9 cm (5' 9.25) 01/31/2023 3:29 PM ES T Body Mass Index 26.83 01/31/2023 3:29 PM EST documented in this encounter Progress Notes * Cara Pham RN - 01/31/2023 3:[address] Patient Medical Oncology Note SOCIAL ASSESSMENT: See [facility] social assessment information entered. 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 [ x ] yes [ ] no Local Pharmacy: [facility] [place], [facility] FUNCTIONAL SCREENING: Balance difficulty: [ x]no [ ]yes At risk for fall: [ ] no [ ] yes If yes, actions implemented to prevent fall. Patient/family instructed to avoid independent ambulation. Use wheelchair and ask for assistance of staff while in the clinic. ADL [x ] no limits [ ] needs dressing assistance [ ] needs meal assistance Assistive device:[ x]none [ ]cane [ ]walker [ ]wheelchair [ ]other: explain PAIN ASSESSMENT: [ none] out of 10 LEARNING STYLE: Learning Needs Assessment up to date (yearly) [ x ] TEACHING: Docetaxel given written info VASCULAR ACCESS ASSESSMENT: getting chemo? [ ]yes [ ]maybe docetaxel has good veins * Thomas Branch MD - 01/31/2023 3:00 PM EST Images from the original note were not included. [facility] Medical Oncology [place] [id number] ONCOLOGY FOLLOW UP ONCOLOGY SUMMARY: 1. Metastatic [...] Abiraterone with Pred added 11/17/2022 HPI: Huber Keys is here for f/u. He iw [...] is not limited by this wrt ambulation. Interval history:Huber Keys is in clinic for follow-up on metastatic prostate cancer and discussion of treatment options. He followed with Dr. Byrne at , but he would [facility] his home. He is currently on abiraterone/prednisone and leuprolide. Tolerates them well Denies any pain. Complains of the swelling of his right leg. REVIEW OF SYSTEMS: Shortness of breath is improving Wt is improving which he is happy about Pain is significantly improved, HE has not needed pain medications Bowels are regular Aside from above, the remainder of the the ROS was negative PAST MEDICAL HISTORY: Cardiomyopathy, T2DM, HLD, hypothyroidism Past Medical History: Diagnosis Date Adenocarcinoma of prostate 10/21/2022 Adenoma of colon Chronic kidney disease Diabetes Gout High blood pressure Hypercholesterolemia 10/21/2022 Hypothyroid MEDS: Medications 01/31/23 4712 Medication Sig Taking? abiraterone (Zytiga) 500 mg tablet Take 2 tablets by mouth daily. Yes levothyroxine (Synthroid) 150 mcg tablet Take 150 mcg by mouth daily. Yes predniSONE (Deltasone) 5 mg tablet Take 1 tablet by mouth daily. Yes atorvastatin (Lipitor) 40 mg tablet Take 1 tablet by mouth daily. Yes cholecalciferol (Vitamin D3) 1,000 unit tablet Take 1 tablet by mouth daily. Yes Lantus Solostar U-100 Insulin 100 unit/mL (3 mL) pen Inject 8 Units subcutaneously daily. Yes HYDROcodone-acetaminophen ([place]) 5-325 mg tablet Take 1 tablet by mouth every 6 hours as needed for Pain. 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 PS: ECOG = closer to 0 General: NAD Head: NCAT Eyes: Not icteric, not injected Extremities: 1-2+ RLE and trace LLE piting edema, non tender Skin: No rash noted Neuro: No focal weakness Psych: Normal mood and affect. Pathology: DIAGNOSIS A - Lymph node, biopsy: - Metastatic carcinoma, consistent with prostatic origin (see discussion) DISCUSSION Lymphoid tissue is not readily identified. LABS: 01/18/2023 sodium 132, potassium 5.0, AST 19, ALT 13, BUN 36, glucose 238, creatinine 1.67, calcium9.2, albumin 3.4, TB 0.6, WBC 8.5, hemoglobin 11.0, platelet count 367, ANC 6.5, PSA testosteron 01/18/23 49.5 33 12/14/21 111 PSA 38.1 Testo undetectable IMAGING STUDIES: ASSESSMENT AND PLAN: 67 y.o. M with extensively metastatic prostate cancer as stated above. There are no obvious visceral metastases. HE has high risk and high volume disease. he was otherwise young and was healthy priorto the comorbidities a/w cancer diagnosis. Diagnosis: Prostate cancer with multiple metastasis to bones and lymph nodes, high risk Treatment -10/31/2022 started Lupron 22.5 mg -11/17/2022 started abiraterone 1000 mg and prednisone 5 mg a day Huber Keys diagnosed with de angélica metastatic prostate cancer with multiple bone and lymph nodes metastases. Discussed prognosis of high risk metastatic prostate cancer with [...] is elevated. Given his diabetes and cardiomyopathy I think he is would be a better candidate for androgen receptor chel. We discussed benefits and the risks of chemotherapy with docetaxel 75 mg/m?? every 3 weeks for total of 6 cycles was darolutamide 600 mg twice daily Efficacy was based on ARASENS ([id number]), a randomized, multicenter, double- blind, placebo-controlled clinical trial in 1306 patients with mHSPC. Patients were randomized to receive either darolutamide 600 mg orally twice daily plus docetaxel 75 mg/m2 intravenously administered every 3 weeks forup to 6 cycles or docetaxel plus placebo. All patients received a gonadotropin-releasing hormone analog concurrently or had a bilateral orchiectomy. The primary efficacy measure was overall survival (OS). Ceal-my-zepx progression was an additional efficacy measure. Median OS was not reached (NR) (95% CI: NR, NR) in the darolutamide plus docetaxelarm and 48.9 months (95% CI: 44.4, NR) in docetaxel plus placebo arm (HR 0.68; 95% CI: 0.57, 0.80; p<0.0001). Treatment with darolutamide and docetaxel resulted in a statistically significant delay in wwmo-tq-cqvv progression (HR 0.79; 95% CI: 0.66, 0.95; [...] weeks after the start of darolutamide treatment. We discussed side effects of chemotherapy which include but not limited to nausea, vomiting, fluid retention, pain, numbness and tingling in extremities, low blood counts, allergic or anaphylactic reaction, hair loss, low blood counts requiring transfusion, infection including life-threatening infection and . All questions were answered to patient's inspection. He is interested to proceed with docetaxel and darolutamide. Informed consent was obtained. Will tentatively plan to start chemotherapy next week. Will obtain new baseline PSMA PET scan # Germline and somatic mutation testing: Will refer him to familial cancer program, will do 170 gene panel testing and MMR testing # Cardiomyopathy: Follows with Dr. Rudolph Plan: Start darolutamide 600 mg twice daily and docetaxel 75 mg/m?? Chemotherapy teaching by TEMPORARY STAFF ACCOUNTANT on February 06 3. Referral to familial cancer program 4. 170 gene panel testing 5. Next visit with CBC, CMP, PSA, testosterone and first cycle of docetaxel in 1 week 6. PSMA PET scan THOMAS BRANCH MD, PhD Oncology documented in this encounter Plan of Treatment Upcoming Encounters Date Type Department Care Team (Late st Contact Info) Description 10/16/2023 2:30 PM EDT Office Visit Hematology/Oncology at [address] [phone] Fiordaliza Downing APRN [facility] [place] [address] 11/10/2023 9:00 AM EDT Appointment [place] [phone] Thomas Branch MD [facility] [place] [address] 11/21/2023 11:00 AM EDT Infusion Hematology Oncology at [address] [phone] 12/05/2023 1:30 PM EDT Office Visit Hematology/Oncology at [address] [phone] Thomas Branch MD [facility] [place] [address] Fiordaliza Downing APRN [facility] [place] [address] 12/26/2023 9:00 AM EDT Appointment [place] [phone] Thomas Branch MD [facility] [place] [address] 02/09/2024 8:00 AM EST Appointment [place] [phone] Thomas Branch MD [facility] [place] [address] 03/18/2024 3:00 PM EST Office Visit Cardiology at [address] [place] [phone] Sameer Rudolph MD [facility] [address] 03/22/2024 9:00 AM EST Appointment [place] [address] Thomas Bustos MD [facility] DR [place] [address] 08/23/2024 Hospital Encounter Main Operating Room [facility] [place] [phone] True Juarez MD [facility] [address] Scheduled Orders Name Type Priority Associated Diagnoses Order Schedule PSA (Ultrasensitive) Lab Routine Malignant neoplasm of prostate metastatic to bone As Needed for 10 Occurrences starting 01/31/2023 until 02/01/2024 CBC (with Diff) Lab Routine Malignant neoplasm of prostate metastatic to bone As Needed for 10 Occurrences starting 01/31/2023 until 02/01/2024 Comprehensive metabolic panel (non-fasting) Lab Routine Malignant neoplasm of prostate metastatic to bone As Needed for 10 Occurrences starting 01/31/2023 until 02/01/2024 Testosterone, total Lab Routine Malignant neoplasm of prostate metastatic to bone As Needed for 10 Occurrences starting 01/31/2023 until 02/01/2024 Specimen to Pathology Additional Testing Pathology/Cyto logy Routine Malignant neoplasm of prostate metastatic to bone Ordered: 01/31/2023 Scheduled Procedures Name Priority Associated Diagnoses Date/Ti [...] Ordered: 01/31/2023 documented as of this encounter Results * [...] Thank you for referring this patient to [facility]. Thank you for letting us participate in the care of this patient. ??If you are a health care provider and have any questions regarding this report, please contact the number below. ??For patients who have questions please contact the health housekeeper caregiver that requested your imaging first. ? Narrative [...] Thank you for referring this patient to [facility]. Thank you for letting us participate in the care of this patient. If youare a health care provider and have any questions regarding this report,please contact the number below. For patients who have questions please contactthe health housekeeper caregiver that requested your imaging first. Thomas Branch MD IMG PET ORDERABLES documented in this encounter Visit Diagnoses Diagnosis Malignant neoplasm of prostate metastatic to bone- Primary Malignant neoplasm of prostate Malignant neoplasm of prostate metastatic to bone Malignant neoplasm of prostate documented in this encounter Care Teams Hose Mender Relationship Specialty Start Date End Date Nicolasa Valenzuela PA [address] [place] [address] PCP - General Family Medicine 12/20/21 documented as of this encounter
--- OUTSIDE RECORDS SUMMARY | 2023-10-16 03:15 | XMS_ITS | Encounter Summary ---
Author Organization [facility] Address [facility] [place] [address] Care Team Providers Care Form Drafter Name Role Phone Nicolasa Valenzuela Primary Care Pro vider Encounter Details Date Type Department Care Team (Late st Contact Info) Description 02/07/2023 Orders Only Hematology/Oncology at [address] [phone] Fiordaliza Downing APRN [facility] [place] [address] Social History Tobacco Use Types Packs/Day Years Used Date Smoking Tobacco: Never Smokeless Tobacco: Never Alcohol Use Standard Drinks/Week Comments Not Currently 0 (1 standard drink = 0.6 oz pur e alcohol) [facility] Utilities Answer Date Recorded In the past 12 months has [employer], gas, oil, or water [employer] threatened to shut off services in your [...] slept in a mcfp (including now)? No 01/31/2023 Sex and Gender Information Value Date Recorded Sex Assigned at Not on file Gender Identity Not on file Sexual Orientation Not on file documented as of this encounter Plan of Treatment Upcoming Encounters Date Type Department Care Team (Late st Contact Info) Description 10/16/2023 2:30 PM EDT Office Visit Hematology/Oncology at [address] [phone] Fiordaliza Downing APRN [facility] [place] [address] 11/10/2023 9:00 AM EDT Appointment [place] [address] Thomas Curtis MD [facility] DR HEMATOLOGY [place] [address] 11/21/2023 11:00 AM EDT Infusion Hematology Oncology at [address] [phone] 12/05/2023 1:30 PM EDT Office Visit Hematology/Oncology at [address] [phone] Thomas Curtis MD [facility] HEMATOLOGY [place] [address] Fiordaliza Downing APRN [facility] [place] [address] 12/26/2023 9:00 AM EDT Appointment Nuclear Medicine at [place] [phone] Thomas Curtis MD [facility] HEMATOLOGY [place] [address] 02/09/2024 8:00 AM EST Appointment Nuclear Medicine at [place] [phone] Thomas Curtis MD [facility] HEMATOLOGY [place] [address] 03/18/2024 3:00 PM EST Office Visit Cardiology at [address] [phone] Sameer Rudolph MD [facility] [place] [address] 03/22/2024 9:00 AM EST Appointment Nuclear Medicine at [place] [phone] Thomas Curtis MD [facility] HEMATOLOGY [place] [address] 08/23/2024 Hospital Encounter [place] [phone] True Juarez MD [facility] [place] [address] Scheduled Procedures Name Priority Associated Diagnoses Date/Ti me CYSTO, STENT PLACEMENT (WRVU 2.82) Hydronephrosis with ureteral stricture, not elsewhere classified CYSTO, REMOVAL OF STENT, FOR EIGN BODY OR CALCULUS, SIMPLE (WRVU 2.81) Hydronephrosis with ureteral stricture, not elsewhere classified documented as of this encounter Visit Diagnoses Not on filedocumented in this encounter Care Teams Form Drafter Relationship Specialty Start Date End Date Nicolasa Valenzuela PA [address] [place] [address] PCP - General Family Medicine 12/20/21 documented as of this encounter
--- OUTSIDE RECORDS SUMMARY | 2023-10-16 03:15 | XMS_ITS | Encounter Summary ---
Author Organization [facility] Address [facility] [place] [address] Care Team Providers Care Fashion Consultant Sales Name Role Phone Nicolasa Valenzuela Primary Care Pro vider Encounter Details Date Type Department Care Team (Late st Contact Info) Description 02/06/2023 11:00 AM EST Office Visit Hematology/Oncology at [address] [phone] Fiordaliza Downing APRN [facility] [place] [address] Malignant neoplasm of prostate metastatic to bone; Cardiomyopathy, unspecified type; Prostate cancer metastatic to multiple sites Social History Tobacco Use Types Packs/Day Years Used Date Smoking Tobacco: Never Smokeless Tobacco: Never Alcohol Use Standard Drinks/Week Comments Not Currently 0 (1 standard drink = 0.6 oz pur e alcohol) [facility] Utilities Answer Date Recorded In the past 12 months has [employer] electric, gas, oil, or water company threatened [...] Sign Reading Time Taken Comments Blood Pressure 138/69 02/06/2023 10:54 AM EST Pulse 66 02/06/2023 10:54 AM EST Temperature 36.3 ??C (97.3 ??F) 02/06/2023 10:[address] Respiratory Rate 16 02/06/2023 10:54 AM EST Oxygen Saturation 100% 02/06/2023 10:54 AM EST Inhaled Oxygen Concentration - - Weight 82.1 kg (181 lb) 02/06/2023 10:54 AM EST Height 178.4 cm (5' 10.25) 02/06/2023 10:54 AM EST Body Mass Index 25.79 02/06/2023 10:54 AM EST documented in this encounter Progress Notes * Fiordaliza Downing APRN - 02/06/2023 11:00 AM EST Images from the original note were not included. [facility] Medical Oncology [place] [id number] CHEMOTHERAPY TEACH ONCOLOGY FOLLOW UP ONCOLOGY SUMMARY: 1. Metastatic [...] with Pred added 11/17/2022 Interval history:Huber Kennedy Evanclaritza is in clinic for follow-up on metastatic prostate cancer and chemotherapy teach. He will start taxotere chemotherapy tomorrow. He is currently on abiraterone/prednisone and lupron. Tolerates them well. We are working with his insurance to get him approved for darolutamide. He has chronic RLE swelling thought to be related to lymphedema and previous US have shown negative for DVT. Denies any pain. He has some numbness and tingling to the bottom of his R foot which is chronic and stable. No other problems with neuropathy. The remainder of his review of systems reviewed and is negative. REVIEW OF SYSTEMS: As in interval history PAST MEDICAL HISTORY: Cardiomyopathy, T2DM, HLD, hypothyroidism, CKD for which he follows with his PCP MEDS: Medications 02/06/23 1100 Medication Sig Taking? tamsulosin (Flomax) 0.4 mg capsule Take 0.4 mg by mouth daily. Yes acetaminophen (Tylenol) 325 mg tablet Take 650 mg by mouth daily as needed for Pain. Yes abiraterone (Zytiga) 500 mg tablet Take 2 [...] pen Inject 8 Units subcutaneously daily. Yes darolutamide (Nubeqa) 300 mg tablet Take 2 tablets by mouth 2 times daily. Call clinic before starting medication Patient not taking: Reported on 02/06/2023 prochlorperazine (Compazine) 10 mg tablet Take 1 tablet by mouth every 6 hours as needed for Nausea. Patient not taking: Reported on 02/06/2023 HYDROcodone-acetaminophen ([place]) 5-325 mg tablet Take 1 tablet by mouth every 6 hours as needed for Pain. ALLERGY: Allergies Allergen Reactions Amoxicillin Rash Penicillin Other (See Comments) Other reaction(s): Unknown FAMILY HX: Mother had breast cancer Family History Problem Relation Age of Onset Heart Failure Father Heart Surgery Father Diabetes Sister SOCIAL HX:-Works part-time as a [employer], lives by himself. He is here with his friend today who is a breast cancer survivor and runs a local support group. He lives in [place], [place]. 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 General: NAD Head: NCAT Eyes: Not icteric, not injected Neck: No palpable lymphadenopathy Chest: CTA Cardiac: RRR Abdomen: Soft, ND, NT, no palpable hepatosplenomegaly Extremities: 1-2+ RLE pitting edema, non tender Skin: No rash noted Pathology: DIAGNOSIS A - Lymph node, biopsy: - Metastatic carcinoma, consistent with prostatic origin (see discussion) DISCUSSION Lymphoid tissue is not readily identified. LABS: 02/06/23: sodium 136, potassium 3.8, AST 15, ALT 17, BUN 40, glucose 195, creatinine 1.8, calcium 9.4, albumin 3.1, TB 0.4, WBC 6.52, hemoglobin 11.4, platelet count 330, ANC 3.76 PSA testosteron 01/18/23 49.5 33 12/14/21 111 IMAGING STUDIES: 12/20/22: Echocardiogram EF= 48% ASSESSMENT AND PLAN: 67 y.o. M with [...] twice daily Efficacy was based on ARASENS ([id number]), a randomized, multicenter, double- blind, placebo-controlled clinical trial in 1306 patients with mHSPC. Patients were randomized to receive either darolutamide 600 mg orally twice daily plus docetaxel 75 mg/m2 intravenously administered every 3 weeks forup to 6 cycles or docetaxel plus placebo. All patients received a gonadotropin-releasing hormone analog concurrently or had a bilateral orchiectomy. The primary efficacy measure was overall survival (OS). Emgg-pg-ofoo progression was an additional efficacy measure. Median OS was not reached (NR) (95% CI: NR, NR) in the darolutamide plus docetaxelarm and 48.9 months (95% CI: 44.4, NR) in docetaxel plus placebo arm (HR 0.68; 95% CI: 0.57, 0.80; p<0.0001). Treatment with darolutamide and docetaxel resulted in a statistically significant delay in nikn-qj-nhzy progression (HR 0.79; 95% CI: 0.66, 0.95; [...] and hypocalcemia. The recommended darolutamide dose for SP is 600 mg (two 300 mg tablets) [...] mild joint and muscle pain or cramps. # Germline and somatic mutation testing: Has been referred to familial cancer program, will do 170 gene panel testing and MMR testing # Cardiomyopathy: Follows with Dr. Rudolph #Port placement: per patient request. Referral sent to [facility] which is more convenient for [place]. #CKD: Chronic, creatinine is elevated at 1.8 which is overall stable. Follows with PCP. Plan: RTC tomorrow for docetaxel 75 mg/m?? cycle #1 Continue abiraterone and prednisone and lupron. We are working with insurance to get approval for darolutamide. Referral for port placement at [facility], to be placed prior to cycle #2 4. Next visit in 3 weeks CBC, CMP, PSA, testosterone and second cycle of docetaxel 5. PSMA PET scan to be performed sometime soon Fiordaliza Downing APRN All questions were answered and patient verbalized understanding and no further questions. 60 minutes were spent on date of visit, including non-face to face time. documented in this encounter Plan of Treatment Upcoming Encounters Date Type Department Care Team (Late st Contact Info) Description 10/16/2023 2:30 PM EDT Office Visit Hematology/Oncology at [address] [phone] Fiordaliza Downing APRN [facility] [place] [address] 11/10/2023 9:00 AM EDT Appointment [place] [address] Thomas Curtis MD [facility] [place] [address] 11/21/2023 11:00 AM EDT Infusion Hematology Oncology at [address] [phone] 12/05/2023 1:30 PM EDT Office Visit Hematology/Oncology at [address] [phone] Thomas Curtis MD [facility] [place] [address] Fiordaliza Downing APRN [facility] [place] [address] 12/26/2023 9:00 AM EDT Appointment [place] [phone] Thomas Curtis MD [facility] [address] [place] [address] 02/09/2024 8:00 AM EST Appointment [place] [phone] Thomas Curtis MD [facility] [place] [address] 03/18/2024 3:00 PM EST Office Visit Cardiology at [address] [phone] Sameer Rudolph MD [facility] [place] [address] 03/22/2024 9:00 AM EST Appointment [place] [phone] Thomas Curtis MD [facility] [place] [address] 08/23/2024 Hospital Encounter [place] [phone] True Juarez MD [facility] [address] Scheduled Procedures Name Priority Associated Diagnoses Date/Ti me CYSTO, STENT PLACEMENT (WRVU 2.82) Hydronephrosis with ureteral stricture, not elsewhere classified CYSTO, REMOVAL OF STENT, FOR EIGN BODY OR CALCULUS, SIMPLE (WRVU 2.81) Hydronephrosis with ureteral stricture, not elsewhere classified documented as of this encounter Visit Diagnoses Diagnosis Malignant neoplasm of prostate metastatic to bone Malignant neoplasm of prostate Cardiomyopathy, unspecified type Prostate cancer metastatic to multiple sites Malignant neoplasm of prostate documented in this encounter Care Teams Fashion Consultant Sales Relationship Specialty Start Date End Date Nicolasa Valenzuela PA [address] [place] [address] PCP - General Family Medicine 12/20/21 documented as of this encounter
--- OUTSIDE RECORDS SUMMARY | 2023-10-16 03:15 | XMS_ITS | Encounter Summary ---
Author Organization [facility] Address [facility] [place] [address] Care Team Providers Care Image Editor Name Role Phone Nicolasa Valenzuela Primary Care Pro vider Encounter Details Date Type Department Care Team (Latest Contact Info) Description 02/28/2023 Travel Social History Tobacco Use Types Packs/Day Years Used Date Smoking Tobacco: Never Smokeless Tobacco: Never Alcohol Use Standard Drinks/Week Comments Not Currently 0 (1 standard drink = 0.6 oz pur e alcohol) [facility] Utilities Answer Date Recorded In the past 12 months has e electric, gas, oil, or water [employer] threatened to shut off services in [...] 2:30 PM EDT Office Visit Hematology/Oncology at [address] [phone] Fiordaliza Downing APRN [facility] [place] [address] 11/10/2023 9:00 AM EDT Appointment [place] [address] Thomas Curtis MD [facility] [place] [address] 11/21/2023 11:00 AM EDT Infusion Hematology Oncology at [address] [phone] 12/05/2023 1:30 PM EDT Office Visit Hematology/Oncology at [address] [phone] Thomas Curtis MD [facility] [place] [address] Fiordaliza Downing APRN [facility] [place] [address] 12/26/2023 9:00 AM EDT Appointment [place] [phone] Thomas Curtis MD [facility] [place] [address] 02/09/2024 8:00 AM EST Appointment [place] [phone] Thomas Curtis MD [facility] [place] [address] 03/18/2024 3:00 PM EST Office Visit Cardiology at [address] [phone] Sameer Rudolph MD [facility] [place] [address] 03/22/2024 9:00 AM EST Appointment [place] [phone] Thomas Curtis MD [facility] [place] [address] 08/23/2024 Hospital Encounter [place] [phone] True Juarez MD [facility] [place] [address] Scheduled Procedures Name Priority Associated Diagnoses Date/Ti me CYSTO, STENT PLACEMENT (WRVU 2.82) Hydronephrosis with ureteral stricture, not elsewhere classified CYSTO, REMOVAL OF STENT, FOR EIGN BODY OR CALCULUS, SIMPLE (WRVU 2.81) Hydronephrosis with ureteral stricture, not elsewhere classified documented as of this encounter Visit Diagnoses Not on filedocumented in this encounter Care Teams Image Editor Relationship Specialty Start Date End Date Nicolasa Valenzuela PA [address] [place] [address] PCP - General Family Medicine 12/20/21 documented as of this encounter
--- OUTSIDE RECORDS SUMMARY | 2023-10-16 03:15 | XMS_ITS | Encounter Summary ---
Author Organization [facility] Address [facility] [place] [address] Care Team Providers Care Firer Retort Name Role Phone Nicolasa Valenzuela Primary Care Pro vider Reason for Visit * Reason Onset Date Comments Other 02/06/2023 Free drug progra m application nubeqa Encounter Details Date Type Department Care Team (Late st Contact Info) Description 02/06/2023 Telephone Hematology/Oncology at [address] [phone] Cara Pham RN Other (Free drug program application nubeqa) Social History Tobacco Use Types Packs/Day Years Used Date Smoking Tobacco: Never Smokeless Tobacco: Never Alcohol Use Standard Drinks/Week Comments Not Currently 0 (1 standard drink = 0.6 oz pur e alcohol) [facility] Utilities Answer Date Recorded In the past 12 months has [employer], gas, oil, or water [employer] threatened to shut off services in your [...] Telephone Encounter - Cara Pham RN - 02/06/2023 11:37 AM EST [employer] patient assistance foundation application filled out and faxed to [phone], phone [phone] for nubeqa (darolutamide) 02/10/23 spoke with [employer], they have received application, they are a bit backed up and feel it willbe processed next week but no guarantees. documented in this encounter Plan of Treatment Upcoming Encounters Date Type Department Care Team (Late st Contact Info) Description 10/16/2023 2:30 PM EDT Office Visit Hematology/Oncology at [address] [phone] Fiordaliza Downing APRN [facility] MEDICAL [place]COLOG[place] [address] 11/10/2023 9:00 AM EDT Appointment [place] [phone] Thomas Curtis MD [facility] HEMATOLOGY [place] [address] 11/21/2023 11:00 AM EDT Infusion Hematology Oncology at [address] [phone] 12/05/2023 1:30 PM EDT Office Visit Hematology/Oncology at [address] [phone] Thomas Curtis MD [facility] HEMATOLOGY [place] [address] Fiordaliza Downing APRN [facility] [place] [address] 12/26/2023 9:00 AM EDT Appointment [place] [phone] Thomas Curtis MD [facility] HEMATOLOGY [place] [address] 02/09/2024 8:00 AM EST Appointment [place] [phone] Thomas Curtis MD [facility] HEMATOLOGY [place] [address] 03/18/2024 3:00 PM EST Office Visit Cardiology at [address] [place] [phone] Sameer Rudolph MD [facility] [place] [address] 03/22/2024 9:00 AM EST Appointment [place] [phone] Thomas Curtis MD [facility] HEMATOLOGY [place] [address] 08/23/2024 Hospital Encounter Main Operating Room [facility] [place] [address] True Juarez MD [facility] [place] [address] Scheduled Procedures Name Priority Associated Diagnoses Date/Ti me CYSTO, STENT PLACEMENT (WRVU 2.82) Hydronephrosis with ureteral stricture, not elsewhere classified CYSTO, REMOVAL OF STENT, FOR EIGN BODY OR CALCULUS, SIMPLE (WRVU 2.81) Hydronephrosis with ureteral stricture, not elsewhere classified documented as of this encounter Visit Diagnoses Not on filedocumented in this encounter Care Teams Firer Retort Relationship Specialty Start Date End Date Nicolasa Valenzuela PA [address] [place] [address] PCP - General Family Medicine 12/20/21 documented as of this encounter
--- OUTSIDE RECORDS SUMMARY | 2023-10-16 03:15 | XMS_ITS | Encounter Summary ---
Author Organization Count Includes [facility] Address [facility] [place] [address] Care Team Providers Care Global Account Director Name Role Phone Nicolasa Valenzuela Primary [...] [place] [employer] Nabor Byrne MD [facility] DR [place] [address] Nabor Byrne MD [facility] [address] [place] [address] Referral ID Status Reason Start Date Expiration Date V isits Requested Visits Authorized [id number] Authorized 03/06/2022 01/31/2024 99 99 Encounter Details Date Type Department Care Team (Late st Contact Info) Description 01/31/2023 3:30 PM EST Infusion Hematology Oncology at [address] [phone] Adenocarcinoma of prostate Social History Tobacco Use Types Packs/Day Years Used Date Smoking Tobacco: Never Smokeless Tobacco: Never Alcohol Use Standard Drinks/Week Comments Not Currently 0 (1 standard drink = 0.6 oz pur e alcohol) [facility] Utilities Answer Date Recorded In the [...] Progress Notes * Darlene Terrell RN - 01/31/2023 3:30 PM EST Infusion Note Diagnosis:Prostate Cancer Treatment: Lupron Injection Lupron 22.5 mg injected in left buttocks Patient instructed on side effects of Lupron. Patient states understanding of teaching, Patient aware to call clinic with any questions or concerns. Plan: Return to clinic as scheduled. documented in this encounter Plan of Treatment Upcoming Encounters Date Type Department Care Team (Late st Contact Info) Description 10/16/2023 2:30 PM EDT Office Visit Hematology/Oncology at [address] [phone] Fiordaliza Downing APRN [facility] [place] [address] 11/10/2023 9:00 AM EDT Appointment [place] [address] Thomas Curtis MD [facility] HEMATOLOGY [place] [address] 11/21/2023 11:00 AM EDT Infusion Hematology Oncology at [address] [phone] 12/05/2023 1:30 PM EDT Office Visit Hematology/Oncology at [address] [phone] Thomas Curtis MD [facility] HEMATOLOGY [place] [address] Fiordaliza Downing APRN [facility] [place] [address] 12/26/2023 9:00 AM EDT Appointment [place] [phone] Thomas Curtis MD [facility] HEMATOLOGY [place] [address] 02/09/2024 8:00 AM EST Appointment [place] [phone] Thomas Curtis MD [facility] HEM[place]OLOGY [place] [address] 03/18/2024 3:00 PM EST Office Visit Cardiology at [address] [place] [phone] Sameer Rudolph MD [facility] [place] [address] 03/22/2024 9:00 AM EST Appointment [place] [phone] Thomas Curtis MD [facility] HEMATOLOGY [place] [address] 08/23/2024 Hospital Encounter [place] [phone] True Juarez MD [facility] [place] [address] Scheduled Procedures Name Priority Associated Diagnoses Date/Ti me CYSTO, STENT PLACEMENT (WRVU 2.82) Hydronephrosis with ureteral stricture, not elsewhere classified CYSTO, REMOVAL OF STENT, FOR EIGN BODY OR CALCULUS, SIMPLE (WRVU 2.81) Hydronephrosis with ureteral stricture, not elsewhere classified documented as of this encounter Visit Diagnoses Diagnosis Adenocarcinoma of prostate Malignant neoplasm of prostate documented in this encounter Administered Medications Inactive Administered Medications - up to 3 most recent administrations Medication Order MAR Action Action Date Dose Rate Site leuprolide (Lupron Depot) injection 22.5 mg 22.5 mg, Intramuscular, ONCE, 1 dose, On Mon01/31/23 at 1630, , Routine, This agent is restricted to outpatient use. Is this drug being given as an outpatient? Yes Given 01/31/2023 4:42 PM EST 22.5 mg Left Gluteal documented in this encounter Care Teams Global Account Director Relationship Specialty Start Date End Date Nicolasa Valenzuela PA [address] [place] [address] PCP - General Family Medicine 12/20/21 documented as of this encounter
--- OUTSIDE RECORDS SUMMARY | 2023-10-16 03:15 | XMS_ITS | Encounter Summary ---
Author Organization [facility] Address [facility] [place] [address] Care Team Providers Care X Ray Technician Name Role Phone Nicolasa Valenzuela Primary Care Pro vider Encounter Details Date Type Department Care Team (Late st Contact Info) Description 02/02/2023 Orders Only Hematology Oncology at [address] [phone] Alexsandra Maurice RN Social History Tobacco Use Types Packs/Day Years Used Date Smoking Tobacco: Never Smokeless Tobacco: Never Alcohol Use Standard Drinks/Week Comments Not Currently 0 (1 standard drink = 0.6 oz pur e alcohol) [facility] Utilities Answer Date Recorded In [...] as of this encounter Progress Notes * Alexsandra Maurice, RN - 02/02/2023 10:19 AM EST Pt called and made aware of high copay for darolutamide (Nubeqa) and we will proceed with MAP with [employer]. Application started and Pt will be in Tuesday 02/06 for FUV and can finish application. He is aware to bring copy of last tax return or proof of income. Lalo given to clinic RN to follow up on. documented in this encounter Plan of Treatment Upcoming Encounters Date Type Department Care Team (Late st Contact Info) Description 10/16/2023 2:30 PM EDT Office Visit Hematology/Oncology at [address] [phone] Fiordaliza Downing APRN [facility] [place] [address] 11/10/2023 9:00 AM EDT Appointment [place] [address] Thomas Curtis MD [facility] [place] [address] 11/21/2023 11:00 AM EDT Infusion Hematology Oncology at [address] [phone] 12/05/2023 1:30 PM EDT Office Visit Hematology/Oncology at [address] [phone] Thomas Curtis MD [facility] DR [place] [address] Fiordaliza Downing APRN [facility] [place] [address] 12/26/2023 9:00 AM EDT Appointment [place] [phone] Thomas Curtis MD [facility] [place] [address] 02/09/2024 8:00 AM EST Appointment [place] [phone] Thomas Curtis MD [facility] [place] [address] 03/18/2024 3:00 PM EST Office Visit Cardiology at [address] [place] [phone] Sameer Rudolph MD [facility] [place] [address] 03/22/2024 9:00 AM EST Appointment [place] [phone] Thomas Curtis MD [facility] [place] [address] 08/23/2024 Hospital Encounter Main Operating [place] [phone] True Juarez MD [facility] [place] [address] Scheduled Procedures Name Priority Associated Diagnoses Date/Ti me CYSTO, STENT PLACEMENT (WRVU 2.82) Hydronephrosis with ureteral stricture, not elsewhere classified CYSTO, REMOVAL OF STENT, FOR EIGN BODY OR CALCULUS, SIMPLE (WRVU 2.81) Hydronephrosis with ureteral stricture, not elsewhere classified documented as of this encounter Visit Diagnoses Not on filedocumented in this encounter Care Teams X Ray Technician Relationship Specialty Start Date End Date Nicolasa Valenzuela PA [address] [place] [address] PCP - General Family Medicine 12/20/21 documented as of this encounter
--- OUTSIDE RECORDS SUMMARY | 2023-10-16 03:15 | XMS_ITS | Encounter Summary ---
Author Organization Formerly [facility] Address [facility] [place] [address] Care Team Providers Care Rivet Machine Operator Name Role Phone Nicolasa Valenzuela Primary Care Pro vider Encounter Details Date Type Department Care Team (Late st Contact Info) Description 02/06/2023 Telephone Hematology/Oncology at [address] [phone] Elisha Montoya Social History Tobacco Use Types Packs/Day Years Used Date Smoking Tobacco: Never Smokeless Tobacco: Never Alcohol Use Standard Drinks/Week Comments Not Currently 0 (1 standard drink = 0.6 oz pur e alcohol) [facility] Utilities Answer Date Recorded In the [...] * Telephone Encounter - Elisha Montoya - 02/06/2023 4:39 PM EST Called Huber to let him know that his schedule has been changed. He is aware and is fine with theday and time documented in this encounter Plan of Treatment Upcoming Encounters Date Type Department Care Team (Late st Contact Info) Description 10/16/2023 2:30 PM EDT Office Visit Hematology/Oncology at [address] [phone] Fiordaliza Downing APRN [facility] [place] [address] 11/10/2023 9:00 AM EDT Appointment [place] [phone] Thomas Curtis MD [facility] [place] [address] 11/21/2023 11:00 AM EDT Infusion Hematology Oncology at [address] [phone] 12/05/2023 1:30 PM EDT Office Visit Hematology/Oncology at [address] [phone] Thomas Curtis MD [facility] [place] [address] Fiordaliza Downing APRN [facility] [place] [address] 12/26/2023 9:00 AM EDT Appointment [place] [phone] Thomas Curtis MD [facility] [place] [address] 02/09/2024 8:00 AM EST Appointment [place] [phone] Thomas Curtis MD [facility] [place] [address] 03/18/2024 3:00 PM EST Office Visit Cardiology at [address] [phone] Sameer Rudolph MD [facility] [place] [address] 03/22/2024 9:00 AM EST Appointment [place] [phone] Thomas Curtis MD [facility] [place] [address] 08/23/2024 Hospital Encounter [place] [address] True Juarez MD [facility] [place] [address] Scheduled Procedures Name Priority Associated Diagnoses Date/Ti me CYSTO, STENT PLACEMENT (WRVU 2.82) Hydronephrosis with ureteral stricture, not elsewhere classified CYSTO, REMOVAL OF STENT, FOR EIGN BODY OR CALCULUS, SIMPLE (WRVU 2.81) Hydronephrosis with ureteral stricture, not elsewhere classified documented as of this encounter Visit Diagnoses Not on filedocumented in this encounter Care Teams Rivet Machine Operator Relationship Specialty Start Date End Date Nicolasa Valenzuela PA [address] [place] [address] PCP - General Family Medicine 12/20/21 documented as of this encounter
--- OUTSIDE RECORDS SUMMARY | 2023-10-16 03:15 | XMS_ITS | Encounter Summary ---
Author Organization [facility] Address [facility] [place] [address] Care Team Providers Care Naturopath Name Role Phone Nicolasa Valenzuela Primary Care Pro vider Encounter Details Date Type Department Care Team (Late st Contact Info) Description 02/28/2023 10:00 AM EST Office Visit Hematology/Oncology at [address] [phone] Thomas Branch MD [facility] [address] [place] [address] Fiordaliza Downing APRN [facility] [place] [address] Prostate cancer metastatic to multiple sites; Malignant neoplasm of prostate metastatic to bone; Androgen deprivation therapy; Cardiomyopathy, unspecified type Social History Tobacco Use Types Packs/Day Years Used Date Smoking Tobacco: Never Smokeless Tobacco: Never Alcohol Use Standard Drinks/Week Comments Not Currently 0 (1 standard drink = 0.6 oz pur e alcohol) [facility] Utilities Answer Date Recorded In [...] Sign Reading Time Taken Comments Blood Pressure 107/50 02/28/2023 10:07 AM EST Pulse 70 02/28/2023 10:07 AM EST Temperature 36.4 ??C (97.5 ??F) 02/28/2023 10:[address] Respiratory Rate 16 02/28/2023 10:07 AM EST Oxygen Saturation 100% 02/28/2023 10:07 AM EST Inhaled Oxygen Concentration - - Weight 81.2 kg (179 lb) 02/28/2023 10:07 AM EST Height 178.4 cm (5' 10.24) 02/28/2023 10:07 AM EST Body Mass Index 25.51 02/28/2023 10:07 AM EST documented in this encounter Progress Notes * Thomas Branch MD - 02/28/2023 10:00 AM EST ONCOLOGY FOLLOW UP ONCOLOGY SUMMARY: [...] prostate cancer and docetaxel toxicity check.. He started taxotere 3 weeks ago. He tolerated chemotherapy reasonably well with mild fatigue, hair loss and bone pain responded to Claritin. Today he feels well. He stopped abiraterone about 2 weeks ago. No other focal complaints. REVIEW OF SYSTEMS: As in interval history PAST MEDICAL HISTORY: No interval changes since last visit Cardiomyopathy, T2DM, HLD, hypothyroidism, CKD for which he follows with his PCP MEDS: Medications 02/28/23 1010 Medication Sig Taking? tamsulosin (Flomax) 0.4 mg capsule Take 0.4 mg by mouth daily. Yes levothyroxine (Synthroid) 150 mcg tablet Take 150 mcg by mouth daily. Yes predniSONE (Deltasone) 5 mg tablet Take 1 tablet by mouth daily. 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 He is here with his friend today who is a breast cancer survivor and runs a local support group. He lives in [place], [place]. 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 General: NAD Head: NCAT Eyes: Not icteric, not injected Neck: No palpable lymphadenopathy Chest: CTA Cardiac: RRR Abdomen: Soft, ND, NT, no palpable hepatosplenomegaly Extremities: 1-2+ RLE pitting edema, non tender Skin: No rash noted Pathology: DIAGNOSIS A - Lymph node, biopsy: - Metastatic carcinoma, consistent with prostatic origin (see discussion) DISCUSSION Lymphoid tissue is not readily identified. LABS: 02/28/2023 calcium 9.6, BUN 43, creatinine 2.1, TB 0.4, alkaline phosphatase 65, sodium 138, potassium 5.5, AST 20, ALT 27, WBC 6.03, hemoglobin 10.4, platelet count 420, ANC 3.99. 02/06/23: sodium 136, potassium 3.8, AST 15, ALT 17, BUN 40, glucose 195, creatinine 1.8, calcium 9.4, albumin 3.1, TB 0.4, WBC 6.52, hemoglobin 11.4, platelet count 330, ANC 3.76 PSA testosteron 02/06/23 63.0 01/18/23 49.5 33 12/14/21 111 IMAGING STUDIES: 12/20/22: Echocardiogram EF= 48% 10/31/22 PET scan: [...] with Neulasta support -02/13/2023 stopped abiraterone Huber Keys diagnosed with de angélica metastatic [...] twice daily Efficacy was based on ARASENS ([id number]), a randomized, multicenter, double- blind, placebo-controlled clinical trial in 1306 patients with mHSPC. Patients were randomized to receive either darolutamide 600 mg orally twice daily plus docetaxel 75 mg/m2 intravenously administered every 3 weeks forup to 6 cycles or docetaxel plus placebo. All patients received a gonadotropin-releasing hormone analog concurrently or had a bilateral orchiectomy. The primary efficacy measure was overall survival (OS). Qvcz-hf-dgfd progression was an additional efficacy measure. Median OS was not reached (NR) (95% CI: NR, NR) in the darolutamide plus docetaxelarm and 48.9 months (95% CI: 44.4, NR) in docetaxel plus placebo arm (HR 0.68; 95% CI: 0.57, 0.80; p<0.0001). Treatment with darolutamide and docetaxel resulted in a statistically significant delay in zxxe-dx-dzvh progression (HR 0.79; 95% CI: 0.66, 0.95; [...] and hypocalcemia. The recommended darolutamide dose for [facility] [[email or web address]] is 600 mg (two 300 mg tablets) [...] and muscle pain or cramps. 02/28/23 Mr. Chavez is tolerated first cycle of docetaxel reasonably well with bony pain responded to Claritin, mild fatigue and health loss. Labs were reviewed. Will proceed with cycle 2 today. He stopped abiraterone. We recommended to stop prednisone as well. # Germline and somatic mutation testing: Has been referred to familial cancer program, will do 170 gene panel testing and MMR testing # Cardiomyopathy: Follows with Dr. Rudolph #Port placement: per patient request. Referral sent to [facility] which is more convenient for Bill. #CKD: Chronic, creatinine is elevated at 1.8 which is overall stable. Follows with PCP. Plan: Docetaxel 75 mg/m?? cycle #2 today Start darolutamide 600 mg twice daily when available PSMA PET scan on 03/03/2023 4. Next visit in 3 weeks CBC, CMP, PSA, testosterone and 3-rd cycle of docetaxel THOMAS BRANCH MD All questions were answered and patient verbalized understanding and no further questions. documented in this encounter Plan of Treatment Upcoming Encounters Date Type Department Care Team (Late st Contact Info) Description 10/16/2023 2:30 PM EDT Office Visit Hematology/Oncology at [address] [phone] Fiordaliza Downing APRN [facility] [place] [address] 11/10/2023 9:00 AM EDT Appointment [place] [address] Thomas Branch MD [facility] [place] [address] 11/21/2023 11:00 AM EDT Infusion Hematology Oncology at [address] [phone] 12/05/2023 1:30 PM EDT Office Visit Hematology/Oncology at [address] [phone] Thomas Branch MD [facility] [place] [address] Fiordaliza Downing APRN [facility] [place] [address] 12/26/2023 9:00 AM EDT Appointment [place] [address] Thomas Branch MD [facility] [address] [place] [address] 02/09/2024 8:00 AM EST Appointment [place] [phone] Thomas Branch MD [facility] [place] [address] 03/18/2024 3:00 PM EST Office Visit Cardiology at [address] [place] [phone] Sameer Rudolph MD [facility] [place] [address] 03/22/2024 9:00 AM EST Appointment [place] [phone] Thomas Branch MD [facility] [address] [place] [address] 08/23/2024 Hospital Encounter Main Operating Room [facility] [place] [phone] True Juarez MD [facility] UROLOGY [place], [place] [phone] Scheduled Procedures Name Priority Associated Diagnoses Date/Ti me CYSTO, STENT PLACEMENT (WRVU 2.82) Hydronephrosis with ureteral stricture, not elsewhere classified CYSTO, REMOVAL OF STENT, FOR EIGN BODY OR CALCULUS, SIMPLE (WRVU 2.81) Hydronephrosis with ureteral stricture, not elsewhere classified documented as of this encounter Visit Diagnoses Diagnosis Prostate cancer metastatic to multiple sites Malignant neoplasm of prostate Malignant neoplasm of prostate metastatic to bone Malignant neoplasm of prostate Androgen deprivation therapy Encounter for therapeutic drug monitoring Cardiomyopathy, unspecified type documented in this encounter Care Teams Naturopath Relationship Specialty Start Date End Date Nicolasa Valenzuela PA [address] [place] [address] PCP - General Family Medicine 12/20/21 documented as of this encounter
--- OUTSIDE RECORDS SUMMARY | 2023-10-16 03:15 | XMS_ITS | Encounter Summary ---
Author Organization [facility] [place] [address] Care Team Providers Care Non Destructive Evaluation Specialist Name Role Phone Nicolasa Valenzuela Primary Care Pro vider Reason for Visit * Reason Onset Date Comments Medication Refill 01/12/2023 Encounter Details Date Type Department Care Team (Late st Contact Info) Description 01/12/2023 Telephone [facility] [place] [phone] Kacy Pollack, chemistry faculty member Refill Social History Tobacco Use Types Packs/Day Years [...] in a long term (including now)? No 10/31/2022 Sex and Gender Information Value Date Recorded Sex Assigned at Not on file Gender Identity Not on file Sexual Orientation Not on file documented as of this encounter Miscellaneous Notes * Telephone Encounter - Kacy Pollack RN - 01/12/2023 2:25 PM EST Telephone call to patient: Huber is calling d/t is is concerned that [employer] has shut down. He has emailed and tried called today with no response. Spoke with Inna Sutherland RN. She reports that [employer] is not closed rather they are implementing anew computer system. This has resulted in a delay with medications getting out to patients. Reassured patient that his medication is coming from [employer] the new computer system is resulting in a slight delay but it is okay if he misses a few days. It would be the same as if he was taking a drug holiday. It will not cause him harm. Message from Katy Guillen RN sent at 01/12/2023 2:00 PM EST ----- Hi, We haven't seen him here yet in [facility], seeing him 01/31. Can you help him out? Thanks, Katy ----- Message ----- From: Elisha Montoya Sent: 01/12/2023 12:59 PM EST To: [facility] Hem Onc Nurse Huber will be a new patient for Dr. Curtis, he called because he is having a hard time gettinga hold of [employer], which is the company he gets his medication through. He is taking Abiraterone and his last dose will be on 01/15. He does not know what to do. His call back number is [phone] Thank you Elisha documented in this encounter Plan of Treatment Upcoming Encounters Date Type Department Care Team (Late st Contact Info) Description 10/16/2023 2:30 PM EDT Office Visit Hematology/Oncology at [address] [phone] Fiordaliza Downing APRN [facility] [place] [address] 11/10/2023 9:00 AM EDT Appointment [place] [address] Thomas Curtis MD [facility] [place] [address] 11/21/2023 11:00 AM EDT Infusion Hematology Oncology at [address] [phone] 12/05/2023 1:30 PM EDT Office Visit Hematology/Oncology at [address] [phone] Thomas Curtis MD [facility] [place] [address] Fiordaliza Downing APRN [facility] [place] [address] 12/26/2023 9:00 AM EDT Appointment [place] [address] Thomas Curtis MD [facility] [place] [address] 02/09/2024 8:00 AM EST Appointment [place] [phone] Thomas Curtis MD [facility] DR [place] [address] 03/18/2024 3:00 PM EST Office Visit Cardiology at [address] [place] [phone] Sameer Rudolph MD [facility] [place] [address] 03/22/2024 9:00 AM EST Appointment [place] [phone] Thomas Curtis MD [facility] DR [place] [address] 08/23/2024 Hospital Encounter [place] [phone] True Juarez MD [facility] [place] [address] Scheduled Procedures Name Priority Associated Diagnoses Date/Ti me CYSTO, STENT PLACEMENT (WRVU 2.82) Hydronephrosis with ureteral stricture, not elsewhere classified CYSTO, REMOVAL OF STENT, FOR EIGN BODY OR CALCULUS, SIMPLE (WRVU 2.81) Hydronephrosis with ureteral stricture, not elsewhere classified documented as of this encounter Visit Diagnoses Not on filedocumented in this encounter Care Teams Non Destructive Evaluation Specialist Relationship Specialty Start Date End Date Nicolasa Valenzuela PA [address] [place] [address] PCP - General Family Medicine 12/20/21 documented as of this encounter
--- OUTSIDE RECORDS SUMMARY | 2023-10-16 03:15 | XMS_ITS | Encounter Summary ---
Author Organization [facility] Address [facility] [place] [address] Care Team Providers Care Conveyor Monitor Name Role Phone Nicolasa Valenzuela Primary Care Pro vider Encounter Details Date Type Department Care Team (Late st Contact Info) Description 02/07/2023 Notes Only Hematology/Oncology at [address] [phone] Marline Putnam, MEDICAL BILLING ASSISTANT OFFICE OF CARE MANAGEMENT Social History Tobacco Use Types Packs/Day Years Used Date Smoking Tobacco: Never Smokeless Tobacco: Never Alcohol Use Standard Drinks/Week Comments Not Currently 0 (1 standard drink = 0.6 oz pur e alcohol) [facility] Utilities Answer Date Recorded In the past 12 months has [employer], gas, oil, or water [employer] threatened to shut off services in your [...] of this encounter Progress Notes * Marline Putnam, MEDICAL BILLING ASSISTANT - 02/07/2023 9:29 AM EST Reason for Referral: Brief assessment of social and emotional needs. Met with Huber during his first infusion visit to introduce myself and role of pediatric social worker to assess/address barriers to getting to and through treatments; address support needs and connect with community services and resources as needed. SDOH Screenin01-31-23 no issues noted. Cancer Distress Screenin02/06/23 scored 3. Family/Social Supports: Huber identified several friends as his primary supports. He also identified a sister. He indicated he lives in a very close and supportive community. Living Situation/Daily Activities/Transportation: Huber manages his daily chores and activities. He has someone who will help with meal prep. He does not expect any issues with transportation. He has drivers and back up drivers. He can afford the cost of travel. 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 He can manage his financial obligations. He has Medicare and AARP supplement for insurance. He did not indicate any issues/concerns re finances or insurance. Advance Directives: Huber has completed his advance directive. Requested a copy for his medical record if he wants it on file there. Utilization of Community Resources: None at this time. Adjustment to Illness/Mental Health Concerns: Huber indicated he is coping as best he can. He hasa bit of worry and hopes then next few days after his treatment will go well. He feels supported byhis friends and his community. Offered support. Identified Needs: Huber did not identify any specific needs at this time. Referrals: None at this time. Social Work Interventions: Brief assessment Supportive Counseling Advance care planning Plan: Informed pt of MEDICAL BILLING ASSISTANT availability and contact information. Will follow to assess/address psychosocial needs. HUNTER Romano, INVENTORY AND PRICING ASSOCIATE, OSW-C [place] Worker [facility] documented in this encounter Plan of Treatment Upcoming Encounters Date Type Department Care Team (Late st Contact Info) Description 10/16/2023 2:30 PM EDT Office Visit Hematology/Oncology at [address] [phone] Fiordaliza Downing APRN [facility] [place] [address] 11/10/2023 9:00 AM EDT Appointment [place] [address] Thomas Curtis MD [facility] HEMATOLOGY [place] [address] 11/21/2023 11:00 AM EDT Infusion Hematology Oncology at [address] [phone] 12/05/2023 1:30 PM EDT Office Visit Hematology/Oncology at [address] [phone] Thomas Curtis MD [facility] HEMATOLOGY [place] [address] Fiordaliza Downing APRN [facility] [place] [address] 12/26/2023 9:00 AM EDT Appointment [place] [phone] Thomas Curtis MD [facility] HEMATOLOGY [place] [address] 02/09/2024 8:00 AM EST Appointment [place] [phone] Thomas Curtis MD [facility] HEMATOLOGY [place] [address] 03/18/2024 3:00 PM EST Office Visit Cardiology at [address] [phone] Sameer Rudolph MD [facility] [place] [address] 03/22/2024 9:00 AM EST Appointment [place] [phone] Thomas Curtis MD [facility] HEMATOLOGY [place] [address] 08/23/2024 Hospital Encounter [place] [phone] True Juarez MD [facility] [place] [address] Scheduled Procedures Name Priority Associated Diagnoses Date/Ti me CYSTO, STENT PLACEMENT (WRVU 2.82) Hydronephrosis with ureteral stricture, not elsewhere classified CYSTO, REMOVAL OF STENT, FOR EIGN BODY OR CALCULUS, SIMPLE (WRVU 2.81) Hydronephrosis with ureteral stricture, not elsewhere classified documented as of this encounter Visit Diagnoses Not on filedocumented in this encounter Care Teams Conveyor Monitor Relationship Specialty Start Date End Date Nicolasa Valenzuela PA [address] [place] [address] PCP - General Family Medicine 12/20/21 documented as of this encounter
--- OUTSIDE RECORDS SUMMARY | 2023-10-16 03:15 | XMS_ITS | Encounter Summary ---
Author Organization [facility] Address [facility] [place] [address] Care Team Providers Care Lock And Dam Repairer Name Role Phone Nicolasa Valenzuela Primary Care Pro vider Encounter Details Date Type Department Care Team (Latest Contact Info) Description 01/31/2023 Travel Social History Tobacco Use Types Packs/Day Years Used Date Smoking Tobacco: Never Smokeless Tobacco: Never Alcohol Use Standard Drinks/Week Comments Not Currently 0 (1 standard drink = 0.6 oz pur e alcohol) [facility] Utilities Answer Date Recorded In the past 12 months has e electric, gas, oil, or water [employer] threatened to shut off services in your [...] PM EDT Office Visit Hematology/Oncology at [address] [phone] Fiordaliza Downing APRN [facility] [address] 11/10/2023 9:00 AM EDT Appointment [place] [address] Thomas Curtis MD [facility] [place] [address] 11/21/2023 11:00 AM EDT Infusion Hematology Oncology at [address] [phone] 12/05/2023 1:30 PM EDT Office Visit Hematology/Oncology at [address] [phone] Thomas Curtis MD [facility] [place] [address] Fiordaliza Downing APRN [facility] [place] [address] 12/26/2023 9:00 AM EDT Appointment [place] [phone] Thomas Curtis MD [facility] [place] [address] 02/09/2024 8:00 AM EST Appointment [place] [phone] Thomas Curtis MD [facility] [place] [address] 03/18/2024 3:00 PM EST Office Visit Cardiology at [address] [phone] Sameer Rudolph MD [facility] [place] [address] 03/22/2024 9:00 AM EST Appointment [place] [phone] Thomas Curtis MD [facility] [place] [address] 08/23/2024 Hospital Encounter Main [place] [phone] True Juarez MD [facility] [address] Scheduled Procedures Name Priority Associated Diagnoses Date/Ti me CYSTO, STENT PLACEMENT (WRVU 2.82) Hydronephrosis with ureteral stricture, not elsewhere classified CYSTO, REMOVAL OF STENT, FOR EIGN BODY OR CALCULUS, SIMPLE (WRVU 2.81) Hydronephrosis with ureteral stricture, not elsewhere classified documented as of this encounter Visit Diagnoses Not on filedocumented in this encounter Care Teams Lock And Dam Repairer Relationship Specialty Start Date End Date Nicolasa Valenzuela PA [address] [place] [address] PCP - General Family Medicine 12/20/21 documented as of this encounter
--- OUTSIDE RECORDS SUMMARY | 2023-10-16 03:16 | XMS_ITS | Encounter Summary ---
Author Organization [facility] [place] [address] Care Team Providers Care Principal Scientist Name Role Phone Nicolasa Valenzuela Primary Care Pro vider Reason for Referral * Consultation (Routine) - Closed Specialty Diagnoses / Procedures Referred By Toño mayorga Referred To Contact Hematology and Oncology Diagnoses Malignant neoplasm of prostate Evangelist Castañeda MD [facility] [place] [address] [facility] [address] [place] [address] Referral ID Status Reason Start Date Expiration Date V isits Requested Visits Authorized [id number] Closed Consult, Test & Treat 10/08/2022 10/08/2023 1 1 * Diagnostic Test (Routine) - Closed Specialty Diagnoses / Procedures Referred By Toño mayorga Referred To Contact Radiology Diagnoses Malignant neoplasm of prostate Procedures NM PET CT Skull Base to Mid-thigh Evangelist Castañeda MD [facility] [place] [address] [place] [address] Referral ID Status Reason Start Date Expiration Date V isits Requested Visits Authorized [id number] Closed Specialty Service Requested 10/08/2022 04/10/2024 1 1 Encounter Details Date Type Department Care Team (Late Contact Info) Description 10/08/2022 Telephone [place] [phone] Evangelist Castañeda MD [facility] [place] [address] Social History Tobacco Use Types Packs/Day Years Used Date Smoking Tobacco: Never Smokeless Tobacco: Never Alcohol Use Standard Drinks/Week Comments Not Currently 0 (1 standard drink = 0.6 oz pur e alcohol) Sex and Gender Information Value Date Recorded Sex Assigned at Not on file Gender Identity Not on file Sexual Orientation Not on file documented as of this encounter Miscellaneous Notes * Telephone Encounter - Evangelist Castañeda MD - 10/08/2022 2:19 PM EDT Call to the Mr Keys He is feeling better. Discussed Lymph node biopsy which showed prostate cancer. Discussed treatable, not curable Recommend PSMA PET Ref Medical Oncology Start Casodex in anticipation of [facility] Has appt Dr Zofia Ansari to go into every thing in more detail documented in this encounter Plan of Treatment Upcoming Encounters Date Type Department Care Team (Late Contact Info) Description 10/16/2023 2:30 PM EDT Office Visit Hematology/Oncology at [address] [phone] Fiordaliza Downing APRN [facility] [place] [address] 11/10/2023 9:00 AM EDT Appointment [place] [phone] Thomas Curtis MD [facility] [place] [address] 11/21/2023 11:00 AM EDT Infusion Hematology Oncology at [address] [phone] 12/05/2023 1:30 PM EDT Office Visit Hematology/Oncology at [address] [phone] Thomas Curtis MD [facility] [place] [address] Fiordaliza Downing APRN [facility] [place] [address] 12/26/2023 9:00 AM EDT Appointment [place] [phone] Thomas Curtis MD [facility] [place] [address] 02/09/2024 8:00 AM EST Appointment [place] [phone] Thomas Curtis MD [facility] [place] [address] 03/18/2024 3:00 PM EST Office Visit Cardiology at [address] [place] [phone] Sameer Rudolph MD [facility] [place] [address] 03/22/2024 9:00 AM EST Appointment [place] [phone] Thomas Curtis MD [facility] DR [place] [address] 08/23/2024 Hospital Encounter Main Operating Room [facility] [place] [phone] True Juarez MD [facility] [place] [address] Scheduled Procedures Name Priority Associated Diagnoses Date/Ti me CYSTO, STENT PLACEMENT (WRVU 2.82) Hydronephrosis with ureteral stricture, not elsewhere classified CYSTO, REMOVAL OF STENT, FOR EIGN BODY OR CALCULUS, SIMPLE (WRVU 2.81) Hydronephrosis with ureteral stricture, not elsewhere classified Scheduled Referrals Name Type Priority Associated Diagnoses Order Schedule Referral to Hematology and Oncology Outpatient Referral Routine Malignant neoplasm of prostate Ordered: 10/08/2022 documented as of this encounter Results * NM PET CT Skull Base to Mid-thigh (10/31/2022 10:43 AM EDT) Anatomical Region Laterality Modality Positron Emissio n Tomography (PET) Impressions 10/31/2022 11:23 AM EDT 1. ??Lymph node metastases are present in the left neck, mediastinum, and extensively in the retroperitoneum and pelvis. 2. ??Multiple skeletal metastases. Thank you for letting us participate in the care of this patient. ??If you are a health care provider and have any questions regarding this report, please contact the number below. ??For patients who have questions please contact the health child care coordinator that requested your imaging first. ? Narrative 10/31/2022 11:23 AM EDT EXAMINATION: NM PET CT STANDARD SKULL BASE TO MID-THIGH CLINICAL HISTORY: Prostate cancer, staging TECHNIQUE: Following IV injection of 33-pelvva-3-deoxyglucose (FDG) a standard uptake of approximately 60 minutes, a noncontrast CT scan followed by a PET scan were acquired from the base of the skull to mid thighs. The noncontrast CT was used for anatomic localization and photon attenuation correction of the PET scan. Blood glucose level: 122 (mg/dL) FDG dose: 13.2 mCi COMPARISON: CT scan September 29, 2022 FINDINGS: HEAD/NECK: Hypermetabolic lymph nodes are present in the left neck at levels 3, 4, 5A and 5B. Increased activity in the thyroid gland bilaterally is most consistent with chronic thyroiditis. CHEST: An FDG avid para-aortic lymph node is located adjacent to the descending thoracic aorta just above the level of the diaphragm (image 121). There are foci of increased activity in the left side of the posterior mediastinum (images 120, 130) and in the right and left retrocrural spaces. Coronary artery calcification. Prominent lymph nodes are present adjacent to the aortic arch and in the right lower paratracheal space without abnormal activity. ABDOMEN/PELVIS: Extensive FDG avid retroperitoneal lymphadenopathy is present. Lymph nodes are noted adjacent to the origin of the superior mesenteric artery, in the left para-aortic, aortocaval, preaortic and retrocaval spaces. Hypermetabolic lymph nodes are seen in the bilateral common iliac, internal iliac and external iliac locations. No abnormal activity is identified within the prostate gland. Bilateral renal cysts. Bilateral ureteral stents. SKELETON/EXTREMITIES: There are foci of increased activity corresponding to areas of of sclerosis in the proximal shaft of the left femur at the level of the lesser trochanter, the posterior right iliac bone, the sacrum and the right pedicle of L2. Increased activity in the anterior aspects of the left sixth and seventh ribs is most likely trauma related. Sclerosis within the L1 vertebral body is not associated with abnormal FDG activity. There are post-operative changes in the cervical spine. Procedure Note Tim Levine MD - 10/31/2022 EXAMINATION: NM PET CT STANDARD SKULL BASE TO MID-THIGH CLINICAL HISTORY: Prostate cancer, staging TECHNIQUE: Following IV injection of 03-yvocvz-0-deoxyglucose (FDG) astandard uptake of approximately 60 minutes, a noncontrast CT scan followed by aPET scan were acquired from the base of the skull to mid thighs. The noncontrast CTwas used for anatomic localization and photon attenuation correction of thePET scan. Blood glucose level: 122 (mg/dL) FDG dose: 13.2 mCi COMPARISON: CT scan September 29, 2022 FINDINGS: HEAD/NECK: Hypermetabolic lymph nodes are present in the left neck at levels 3, 4, 5Aand 5B. Increased activity in the thyroid gland bilaterally is most consistentwith chronic thyroiditis. CHEST: An FDG avid para-aortic lymph node is located adjacent to the descending thoracic aorta just above the level of the diaphragm (image 121). There are foci of increased activity in the left side of the posterior mediastinum (images 120, 130) and in the right and left retrocruralspaces. Coronary artery calcification. Prominent lymph nodes are present adjacentto the aortic arch and in the right lower paratracheal space without abnormalactivity. ABDOMEN/PELVIS: Extensive FDG avid retroperitoneal lymphadenopathy is present. Lymph nodesare noted adjacent to the origin of the superior mesenteric artery, in theleft para-aortic, aortocaval, preaortic and retrocaval spaces. Hypermetaboliclymph nodes are seen in the bilateral common iliac, internal iliac and externaliliac locations. No abnormal activity is identified within the prostate gland. Bilateral renal cysts. Bilateral ureteral stents. SKELETON/EXTREMITIES: There are foci of increased activity corresponding to areas of ofsclerosis in the proximal shaft of the left femur at the level of the lessertrochanter, the posterior right iliac bone, the sacrum and the right pedicle of L2. Increased activity in the anterior aspects of the left sixth and seventhribs is most likely trauma related. Sclerosis within the L1 vertebral body is not associated with abnormalFDG activity. There are post-operative changes in the cervical spine. IMPRESSION 1. Lymph node metastases are present in the left neck, mediastinum, and extensively in the retroperitoneum and pelvis. 2. Multiple skeletal metastases. Thank you for letting us participate in the care of this patient. If youare a health care provider and have any questions regarding this report,please contact the number below. For patients who have questions please contactthe health child care coordinator that requested your imaging first. Evangelist Castañeda MD IMG PET ORDERABLES documented in this encounter Visit Diagnoses Diagnosis Malignant neoplasm of prostate- Primary Malignant neoplasm of prostate documented in this encounter Care Teams Principal Scientist Relationship Specialty Start Date End Date Nicolasa Valenzuela PA [address] [place] [address] PCP - General Family Medicine 12/20/21 documented as of this encounter
--- OUTSIDE RECORDS SUMMARY | 2023-10-16 03:16 | XMS_ITS | Encounter Summary ---
Author Organization [facility] [place] [address] Care Team Providers Care Senior Game Designer Name Role Phone Nicolasa Valenzuela Primary Care Pro vider Reason for Visit * Treatment/Therapy Plan Authorization (Routine) - Authorized Specialty Diagnoses / Procedures Referred By Toño mayorga Referred To Contact Hematology and Oncology Diagnoses Prostate cancer metastatic to multiple sites Procedures TC LEUPROLIDE ACETATE 7.5MG, FOR DEPOST SUSPENSION (LUPRON DEPOT) [id number] LUPRON DEPOT Nabor Byrne MD [facility] [place] [address] Nabor Byrne MD [facility] [place] [address] Referral ID Status Reason Start Date Expiration Date V isits Requested Visits Authorized [id number] Authorized 03/06/2022 01/31/2024 99 99 Encounter Details Date Type Department Care Team (Latest Contact Info) Description 10/31/2022 3:15 PM EDT - 10/31/2022 11:59 PM EDT Hospital Encounter Hematology [place] [address] Adenocarcinoma of prostate Discharge Disposition: Home Social History Tobacco Use [...] slept in a fdc (including now)? No 10/31/2022 Sex and Gender Information Value Date Recorded Sex Assigned at Not on file Gender Identity Not on file Sexual Orientation Not on file documented as of this encounter Medications at Time of Discharge Medication Sig Dispensed Refills Start Date End Date HYDROcodone-acetamin ophen ([place]) 5-325 mg tablet Take 1 tablet by [...] Units subcutaneously daily. 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 60 tablet 5 11/04/2022 11/10/2022 predniSONE (Deltasone) 10 mg tablet Take 10 mg by mouth daily. 11/03/2022 bicalutamide (Casodex) 50 mg tablet Take 1 tablet by mouth daily. 20 tablet 3 10/08/2022 01/31/2023 allopurinoL (Zyloprim) 100 mg tabletIndications:Hy peruricemia Take 1 tablet by mouth 2 times daily. 60 tablet 3 10/05/2022 11/10/2022 Synthroid 137 mcg Tablet Take 137 mcg by mouth daily. 08/31/2021 11/10/2022 documented as of this encounter Progress Notes * Leandra Atwood RN - 10/31/2022 3:46 PM EDT Patient Name: Huber Keys Patient Age: 67 y.o. Birthdate: 1955 Admit date: 10/31/2022 Attending Physician: No att. providers found Access visit. See MAR and/or flowsheet. Lupron injection given, pt tolerated well. documented in this encounter Plan of Treatment Upcoming Encounters Date Type Department Care Team (Late st Contact Info) Description 10/16/2023 2:30 PM EDT Office Visit Hematology/Oncology at [address] [phone] Fiordaliza Downing APRN [facility] [place] [place] [address] 11/10/2023 9:00 AM EDT Appointment [place] [address] Thomas Curtis MD [facility] [place] [address] 11/21/2023 11:00 AM EDT Infusion Hematology Oncology at [address] [phone] 12/05/2023 1:30 PM EDT Office Visit Hematology/Oncology at [address] [phone] Thomas Curtis MD [facility] [place] [address] Fiordaliza Downing APRN [facility] [place] [address] 12/26/2023 9:00 AM EDT Appointment [place] [phone] Thomas Curtis MD [facility] [place] [address] 02/09/2024 8:00 AM EST Appointment [place] [phone] Thomas Curtis MD [facility] [place] [address] 03/18/2024 3:00 PM EST Office Visit Cardiology at [address] [place] [phone] Sameer Rudolph MD [facility] [place] [address] 03/22/2024 9:00 AM EST Appointment [place] [phone] Thomas Curtis MD [facility] [place] [address] 08/23/2024 Hospital Encounter [place] [address] True Juarez MD [facility] [place] [address] Scheduled Procedures Name Priority Associated Diagnoses Date/Ti [...] 22.5 mg, Intramuscular, ONCE, 1 dose, On 10/31/22 at 1545, , Routine, This agent is restricted to outpatient use. Is this drug being given as an outpatient? Yes Given 10/31/2022 3:37 PM EDT 22.5 mg Left Gluteal documented in this encounter Care Teams Senior Game Designer Relationship Specialty Start Date End Date Nicolasa Valenzuela PA [address] [place] [address] PCP - General Family Medicine 12/20/21 documented as of this encounter
--- OUTSIDE RECORDS SUMMARY | 2023-10-16 03:16 | XMS_ITS | Encounter Summary ---
Author Organization [facility] Address [facility] [place] [address] Care Team Providers Care Language Teacher Name Role Phone Nicolasa Valenzuela Primary Care Pro vider Encounter Details Date Type Department Care Team (Late st Contact Info) Description 10/11/2022 10:00 AM EDT TH Visit (TeleHealth) [place] [address] True Juarez MD [facility] [place] [address] Malignant neoplasm of prostate Social History Tobacco Use Types [...] as of this encounter Progress Notes * True Juarez MD - 10/11/2022 10:00 AM EDT Urologic Outpatient Consult Note HPI: Huber Kennedy Génesissavana is a 67 y.o. year old male referred for 1) Elevated PSA PSA History: 08/2021 - 35 10/2021 - mpMRI showed a 72g, P5 lesions in the bilateral TZ 12/2021 - TRUS Bx Negative 12/2021 - 111 03/20222022 We did treat for prostatitis x 30 days empirically OFELIA negative at the time of biopsy Worsening RLE swelling, negative duplex We discussed obtaining a PSMA scan however without any diagnosed prostate cancer we felt this did not make sense so we plan to just monitor his PSA closely consider rebiopsy if it does not come down. Unfortunately he presented to the emergency department in September and was found to have bilateral ureteral obstructions from significant retroperitoneal adenopathy consistent with metastatic disease biopsy revealed metastatic prostate cancer. He now has bilateral ureteral stent placements and presents today for follow-up. I reviewed his recent imaging as well as pathology with the patient. He was started on Casodex by my partner. He has an appointment with medical oncology scheduled as well as a PET scan scheduled. I explained the generalized management going forward specifically regarding his ureteral stents which will require periodic exchange pending reassessment of his prostate cancer after treatment. He request that this be done locally, I reached out to Dr. Jasso work on this going forward. # Medical oncology # Stent exchanges (with Dr. Jasso) # PRN follow-up with me documented in this encounter Plan of Treatment Upcoming Encounters Date Type Department Care Team (Late st Contact Info) Description 10/16/2023 2:30 PM EDT Office Visit Hematology/Oncology at [address] [phone] Fiordaliza Downing APRN [facility] [place] [address] 11/10/2023 9:00 AM EDT Appointment [place] [address] Thomas Curtis MD [facility] [place] [address] 11/21/2023 11:00 AM EDT Infusion Hematology Oncology at [address] [phone] 12/05/2023 1:30 PM EDT Office Visit Hematology/Oncology at [address] [phone] Thomas Curtis MD [facility] [place] [address] Fiordaliza Downing APRN [facility] [place] [address] 12/26/2023 9:00 AM EDT Appointment [place] [phone] Thomas Curtis MD [facility] [place] [address] 02/09/2024 8:00 AM EST Appointment [place] [phone] Thomas Curtis MD [facility] [place] [address] 03/18/2024 3:00 PM EST Office Visit Cardiology at [address] [phone] Sameer Rudolph MD [facility] [place] [address] 03/22/2024 9:00 AM EST Appointment [place] [phone] Thomas Curtis MD [facility] [place] [address] 08/23/2024 Hospital Encounter [place] [phone] True Juarez MD [facility] [place] [address] Scheduled Procedures Name Priority Associated Diagnoses Date/Ti me CYSTO, STENT PLACEMENT (WRVU 2.82) Hydronephrosis with ureteral stricture, not elsewhere classified CYSTO, REMOVAL OF STENT, FOR EIGN BODY OR CALCULUS, SIMPLE (WRVU 2.81) Hydronephrosis with ureteral stricture, not elsewhere classified documented as of this encounter Visit Diagnoses Diagnosis Malignant neoplasm of prostate documented in this encounter Care Teams Language Teacher Relationship Specialty Start Date End Date Nicolasa Valenzuela PA [address] [place] [address] PCP - General Family Medicine 12/20/21 documented as of this encounter
--- OUTSIDE RECORDS SUMMARY | 2023-10-16 03:16 | XMS_ITS | Encounter Summary ---
Author Organization [facility] Address [facility] [place] [address] Care Team Providers Care Seafood Preparer Name Role Phone Nicolasa Valenzuela Primary Care Pro vider Reason for Visit * Diagnostic Test (Routine) - Closed Specialty Diagnoses / Procedures Referred By Toño mayorga Referred To Contact Cardiology Diagnoses Cardiomyopathy, unspecified type Procedures Echocardiogram Transthoracic Sameer Rudolph MD [facility] [place] [address] Referral ID Status Reason Start Date Expiration Date V isits Requested Visits Authorized [id number] Closed Specialty Service Requested 11/10/2022 05/09/2023 1 1 Encounter Details Date Type Department Care Team (Latest Contact Info) Description 11/29/2022 5:40 PM EDT Ext Surgery or Single Event [facility] [address] [facility] [place] [phone] Sameer Rudolph MD [facility] [place] [address] Cardiomyopathy, unspecified type Social History Tobacco Use Types Packs/Day Years Used Date Smoking Tobacco: Never Smokeless Tobacco: Never Alcohol Use Standard Drinks/Week Comments Not Currently 0 (1 standard drink = 0.6 oz pur e alcohol) Overall Financial Resource Strain (CARDIA) Walter escobar Date Recorded How hard is it for [...] slept in a half-way (including now)? No 10/31/2022 Sex and Gender Information Value Date Recorded Sex Assigned at Not on file Gender Identity Not on file Sexual Orientation Not on file documented as of this encounter Plan of Treatment Upcoming Encounters Date Type Department Care Team (Late st Contact Info) Description 10/16/2023 2:30 PM EDT Office Visit Hematology/Oncology at [address] [phone] Fiordaliza Downing APRN [facility] [place] [address] 11/10/2023 9:00 AM EDT Appointment [place] [phone] Thomas Curtis MD [facility] [place] [address] 11/21/2023 11:00 AM EDT Infusion Hematology Oncology at [address] [phone] 12/05/2023 1:30 PM EDT Office Visit Hematology/Oncology at [address] [phone] Thomas Curtis MD [facility] [place] [address] Fiordaliza Downing APRN [facility] [place] [address] 12/26/2023 9:00 AM EDT Appointment Nuclear [place] [phone] Thomas Curtis MD [facility] [place] [address] 02/09/2024 8:00 AM EST Appointment [place] [phone] Thomas Curtis MD [facility] [place] [address] 03/18/2024 3:00 PM EST Office Visit Cardiology at [address] [place] [phone] Sameer Rudolph MD [facility] [place] [address] 03/22/2024 9:00 AM EST Appointment [place] [phone] Thomas Curtis MD [facility] [place] [address] 08/23/2024 Hospital Encounter Main Operating Room [facility] [address] True Juarez MD [facility] [place] [address] Scheduled Procedures Name Priority Associated Diagnoses Date/Ti me CYSTO, STENT PLACEMENT (WRVU 2.82) Hydronephrosis with ureteral stricture, not elsewhere classified CYSTO, REMOVAL OF STENT, FOR EIGN BODY OR CALCULUS, SIMPLE (WRVU 2.81) Hydronephrosis with ureteral stricture, not elsewhere classified documented as of this encounter Procedures Procedure Name Priority Date/Time Associated Diagnosis Comments ECHO SCAN (SCAN) 11/29/2022 12:0 0 AM EDT documented in this encounter Results * SCAN DOC: ECHO (11/29/2022 12:00 AM EDT) Anatomical Region Laterality Modality Cardiac Other Narrative 11/29/2022 12:00 AM EDT Ordered by an unspecified provider. Scanning Provider MEDIA MGR SCAN EXT O RDR/RSLT documented in this encounter Visit Diagnoses Diagnosis Cardiomyopathy, unspecified type documented in this encounter Care Teams Seafood Preparer Relationship Specialty Start Date End Date Nicolasa Valenzuela PA [address] [place] [address] PCP - General Family Medicine 12/20/21 documented as of this encounter
--- OUTSIDE RECORDS SUMMARY | 2023-10-16 03:16 | XMS_ITS | Encounter Summary ---
Author Organization [facility] Address [facility] [place] [address] Care Team Providers Care Security Controls Assessor Name Role Phone Nicolasa Valenzuela Primary Care Pro vider Reason for Visit * Reason Comments Establish Care * Consultation (Routine) - Closed Specialty Diagnoses / Procedures Referred By Toño mayorga Referred To Contact Hematology and Oncology Diagnoses Malignant neoplasm of prostate Evangelist Castañeda MD [facility] [place] [address] [facility] [address] [place] [address] Referral ID Status Reason Start Date Expiration Date V isits Requested Visits Authorized [id number] Closed Consult, Test & Treat 10/08/2022 10/08/2023 1 1 Encounter Details Date Type Department Care Team (Late st Contact Info) Description 10/31/2022 2:00 PM EDT Office Visit Hematology [place] [phone] Nabor Byrne MD [facility] DR [place] [address] Malignant neoplasm of prostate metastatic to bone Social History Tobacco Use Types Packs/Day Years [...] slept in a fpc (including now)? No 10/31/2022 Sex and Gender Information Value Date Recorded Sex Assigned at Not on file Gender Identity Not on file Sexual Orientation Not on file documented as of this encounter Last Filed Vital Signs Vital Sign Reading Time Taken Comments Blood Pressure 100/58 10/31/2022 1:53 PM EDT Pulse 76 10/31/2022 1:53 PM EDT Temperature 36.1 ??C (97 ??F) 10/31/2022 1:53 PM EDT Respiratory Rate 15 10/31/2022 1:53 PM EDT Oxygen Saturation 100% 10/31/2022 1:53 PM EDT Inhaled Oxygen Concentration - - Weight 79.9 kg (176 lb 2.4 oz) 10/31/2022 1:53 P M EDT Height 177.6 cm (5' 9.92) 10/31/2022 1:53 PM ED T Body Mass Index 25.33 10/31/2022 1:53 PM EDT documented in this encounter Progress Notes * Nabor Byrne MD - 10/31/2022 2:00 PM EDT Images from the original note were not included. [facility] [place] [address] ONCOLOGY NEW PATIENT VISIT REFERRING: Dr. Juarez ONCOLOGY SUMMARY: 1. Metastatic high risk prostate [...] around 10/08/3022. Leuprolide 22.5 mg on 10/31/2022 HPI: Huber Keys is a 67 y.o. M here to discuss mgmt of metastatic prostate cancer as detailed above. I have reviewed his workup to date and confirmed this with the patient and his family and summarized mcbride findings above. REVIEW OF SYSTEMS: Has stable RLE edema - no DVT on bilaterl duplex 10/03/22 Notes 20 lb wt loss in about a month. No fever, night sweats HE has mild back pain that may be long standing but also different. Sunman better with prednisone taper Aside from above, the remainder of the the ROS was negative PAST MEDICAL HISTORY: Past Medical History: Diagnosis Date Adenocarcinoma of prostate 10/21/2022 Adenoma of colon Diabetes Gout High blood pressure Hypercholesterolemia 10/21/2022 Hypothyroid MEDS: Medications 10/31/22 1353 Medication Sig Taking? predniSONE (Deltasone) 10 mg tablet Take 10 mg by mouth daily. Yes HYDROcodone-acetaminophen ([place]) 5-325 mg tablet Take 1 tablet by mouth every 6 hours as needed for Pain. Yes bicalutamide (Casodex) 50 mg tablet Take 1 tablet by mouth daily. Yes allopurinoL (Zyloprim) 100 mg tablet Take 1 tablet by mouth 2 times daily. Yes atorvastatin (Lipitor) 40 mg tablet Take 1 tablet by mouth daily. Yes cholecalciferol (Vitamin D3) 1,000 unit tablet Take 1 tablet by mouth daily. Yes Lantus Solostar U-100 Insulin 100 unit/mL (3 mL) pen Inject 8 Units subcutaneously daily. Yes Synthroid 137 mcg Tablet Take 137 mcg by mouth daily. 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 PS: ECOG = 1 General: NAD Head: NCAT Eyes: Not icteric, not injected Extremities: 1-2+ RLE edema, non tender Skin: No rash noted Neuro: No focal weakness Psych: Normal mood and affect. LABS: Reviewed PSA as above Most recent Cr was 2.52 10/03/22 IMAGING STUDIES: I have personally reviewed the images and radiology reports and summarized the findings as above ASSESSMENT AND PLAN: 67 y.o. M with extensively metastatic prostate cancer as stated above. There are no obvious visceral metastases. I reviewed with him the diagnosis, pathology, and staging exams. He has high risk disease based on PSA and volume of disease. He is otherwise young and was healthy prior to the comorbidities a/w cancer diagnosis. We discussed the followin. He has metastatic disease that is not curable. The goal of management would be palliative, with the ability to address symptoms, prolong life, and potentially reduce further complications related to cancer. 2. To this end I would recommend triple therapy including ADT, secondary hormonal agent, and chemotherapy based on data from recent phase 3 trials. 3. I reviewed ADT (including option of surgical castration in which he is not interested) includingthe data behind the benefit, dosing, as well as potential adverse events in detail. I addressed allhis questions and he consents to proceed with ADT. He will get leuprolide today. Ok to stop bicalutamide 4. I reviewed the data behind secondary hormonal agent. Specifically I reviewed the data for abiraterone, and darulotamide added to docetaxel. I specifically discussed the data for benefit of combination therapy vs sequential therapy. I reviewed the dosing for each of these drugs in brief. We discussed that we would favor abiraterone with prednisone, or darolutamide based on the data for combining these agents with chemotherapy. rx for abiraterone sent. 5. I discussed the data for chemotherapy without getting into extensive detail, as I believe that this is something that we can review in about a month. Specifically it would be important to see how he tolerates ADT and secondary agent as well as response. In addition, the patient is currently quite deconditioned and will not be able to start chemotherapy for another few weeks anyway. As such we deferred this discussion for his next appointment which will be in about a month. 6. We discussed risk of bone density loss from ADT and the importance of getting a baseline DEXA scan. This will determine whether he needs a bone sparing agent 7. Symptom management: (a) pain should have benefited from bicalutamide. Ok to drop pred to 5 mg after 7 days (b) Leg swelling likely related to pelvic nodes. Should improve with tx: He know to call with sx ofDVT (he is at risk for this) (c) I also expect wt loss to arrest and reverse. We can enlist nutrition input in future if needed 8. F/u in 6 weeks Pt was instructed to call our clinic with any new symptom or any questions. Thank you for referring this patient to medical oncology. Nabor Byrne MD, PhD Oncology documented in this encounter Plan of Treatment Upcoming Encounters Date Type Department Care Team (Late st Contact Info) Description 10/16/2023 2:30 PM EDT Office Visit Hematology/Oncology at [address] [phone] Fiordaliza Downing APRN [facility] [place] [address] 11/10/2023 9:00 AM EDT Appointment [place] [phone] Thomas Curtis MD [facility] [place] [address] 11/21/2023 11:00 AM EDT Infusion Hematology Oncology at [address] [phone] 12/05/2023 1:30 PM EDT Office Visit Hematology/Oncology at [address] [phone] Thomas Curtis MD [facility] [place] [address] Fiordaliza Downing APRN [facility] [place] [place] [address] 12/26/2023 9:00 AM EDT Appointment [place] [phone] Thomas Curtis MD [facility] [place] [address] 02/09/2024 8:00 AM EST Appointment [place] [phone] Thomas Curtis MD [facility] [place] [address] 03/18/2024 3:00 PM EST Office Visit Cardiology at [address] [place] [phone] Sameer Rudolph MD [facility] [place] [address] 03/22/2024 9:00 AM EST Appointment [place] [phone] Thomas Curtis MD [facility] [place] [address] 08/23/2024 Hospital Encounter [place] [phone] True Juarez MD [facility] [place] [address] Scheduled Procedures Name Priority Associated Diagnoses Date/Ti me CYSTO, STENT PLACEMENT (WRVU 2.82) Hydronephrosis with ureteral stricture, not elsewhere classified CYSTO, REMOVAL OF STENT, FOR EIGN BODY OR CALCULUS, SIMPLE (WRVU 2.81) Hydronephrosis with ureteral stricture, not elsewhere classified documented as of this encounter Results * (ABNORMAL) Testosterone, total (12/27/2022 11:57 AM EDT) Testosterone <0.12(L) 1.93 - 7.40 ng/mL [facility] Comment: Pediatric Reference Ranges: ? Males (7 - 18 years) ?Females (8 - 18 years) Adam Stage ?ng/ml ? ng/ml ? 1 ? <0.03 ? <0.03 to 0.06 ? 2 ? <0.03 to 4.32 ? <0.03 to 0.10 ? 3 ?0.65 to 7.78 ? <0.03 to 0.24 ? 4 ?1.80 to 7.63 ? <0.03 to 0.27 ? 5 ?1.88 to 8.82 ?0.05 to 0.38 Stated reference ranges derived from review of Agavideo Nunu Testosterone II 01/2022, v2.0 Blood 12/27/2022 11:5 7 AM EDT 12/27/2022 12:01 PM EDT Narrative Resulting Agency Comment Spec In Lab Nabor Byrne MD CHEMISTRY ORDERABLES Performing Organization Address City/State/[facility] Co de Phone Number [facility] [place] [address] * (ABNORMAL) PSA (Ultrasensitive) (12/27/2022 11:57 AM EDT) Prostate Specific Antigen (Ultrasensitive) 38.10(H) 0.00 - 4.00 ng/mL [facility] Comment: PLEASE NOTE: The above reference interval is intended for healthy males with an intact prostate. Values within this reference interval may indicate recurrence in men who have undergone radical prostatectomy. This result was generated using a Nory Nunu immunoassay. ??Results obtained from other methods or manufacturers cannot be used interchangeably with this method. Blood 12/27/2022 11:5 7 AM EDT 12/27/2022 12:01 PM EDT Narrative Resulting Agency Comment Spec In Lab Nabor Byrne MD CHEMISTRY ORDERABLES [facility] [place] [address] * (ABNORMAL) Comprehensive metabolic panel (non-fasting) (12/27/2022 11:57 AM EDT) Glucose 101 65 - 199 mg/dL [facility] Comment:Diabetes: >=200 mg/d L plus symptoms Blood Urea Nitrogen 30(H) 10 - 20 mg/dL [facility] Creatinine 2.07(H) 0.80 - 1.50 mg/dL [facility] Sodium 134(L) 135 - 145 mmol/L [facility] Potassium 5.1(H) 3.5 - 5.0 mmol/L [facility] Comment: Please note: ??Patients with WBC >100,000 may have falsely elevated Potassium levels. ??For accurate Potassium quantification in these patients send serum separator tube (gold top) for subsequent determinations. ??Contact the Clinical Chemistry Laboratory if there are any questions. Chloride 101 98 - 107 mmol/L [facility] Carbon Dioxide 23 22 - 31 mmol/L [facility] Anion Gap 10 5 - 15 mmol/L [facility] Calcium 9.2 8.5 - 10.5 mg/dL [facility] Protein, Total 7.7 6.1 - 8.0 g/dL [facility] Albumin 3.5 3.2 - 5.2 g/dL [facility] Aspartate Aminotransferase 26 0 - 39 unit/L [facility] Alanine Aminotransferase 26 0 - 55 unit/L [facility] Alkaline Phosphatase 92 40 - 130 unit/L [facility] Bilirubin, Total 0.2 0.2 - 1.3 mg/dL [facility] Est Glomerular Filtration Rate 34(L) >=60 mL/min/1. 73 m?? [facility] Comment: This patient's estimated GFR was [...] and symptoms in addition to eGFR. Blood 12/27/2022 11:5 7 AM EDT 12/27/2022 12:01 PM EDT Narrative Resulting Agency Comment Spec In Lab Nabor Byrne [place] [address] documented in this encounter Visit Diagnoses Diagnosis Malignant neoplasm of prostate metastatic to bone Malignant neoplasm of prostate documented in this encounter Care Teams Security Controls Assessor Relationship Specialty Start Date End Date Nicolasa Valenzuela PA [address] [place] [address] PCP - General Family Medicine 12/20/21 documented as of this encounter
--- OUTSIDE RECORDS SUMMARY | 2023-10-16 03:16 | XMS_ITS | Encounter Summary ---
Author Organization [facility] Address [facility] [place] [address] Care Team Providers Care Financial Reporting Analyst Name Role Phone Nicolasa Valenzuela Primary Care Pro vider Encounter Details Date Type Department Care Team (Late st Contact Info) Description 12/20/2022 Telephone Cardiology at [address] [place] [address] [facility] [place] [address] Social History Tobacco Use Types Packs/Day Years [...] encounter Miscellaneous Notes * Telephone Encounter - Carlota Balbuena PA - 12/20/2022 12:24 PM EDT Images from the original note were not included. Patient: Huber Keys 67 y.o. Initial Contact Date: 12/20/2022 Initial contact time: 12:25 PM Referring Provider: Dr. Philip Patient Location: [facility] Past Medical History: Prostate cancer with metastasis to lymph nodes and bones Cardiomyopathy, unclear etiology ?stress vs ischemic (09/2022 LVEF 27% with apical akinesis -> 11/2022 LVEF 46% with global HK and post/lat regional WMAs) HLD Hypothyroid T2DM Presenting Symptoms per OSH: Presented with nausea x3 days. Usually does not have nausea but is receiving chemotherapy for his metastatic prostate cancer. In addition has had nausea in the past with dehydration. Has been given IVF with some improvement in symptoms. No chest pain. Has chronic ROBERTS. Of note, admitted 09/2022 and found to have new cardiomyopathy (stress vs ischemic). No ischemic eval given WALTER. No GDMT given WALTER. No diuretic as patient was auto-diuresing. Seen by Dr. Rudolph 11/10/2021 who recommended repeat TTE. TTE 11/29/22 showed improved LVEF. Exam: chronic BLE 2+ non-pitting edema Vital Signs: 121/69, HR 64, RR 16, 97% on RA, afebrile Desat to 80's x2 in ER with ambulation Pertinent Diagnostic Findings: EKG: TroponinHS: 141 >> 159 (1 hour delta 18) CTA chest for PE: negative for PE, no pulmonary edema, probable new bone lesion (sternum) Past cardiac studies: TTE 11/29/22 TTE 09/30/22 Interpretation Summary Wall thickness is normal. Left ventricular systolic [...] below. No prior study available for comparison. OSH Interventions: IVF Assessment & Plan: Huber Keys is a 67 y.o. male with the above history who presented with nausea. Nausea is a vague complaint and could certainly be related to his cancer and chemotherapy treatment. Does not appear dehydrated, though given IVF with some improvement. No evidence of active infection. ER workup revealed abnormal troponin trend (141 >> 159; 1 hour delta 18). EKG similar to prior without LITO. Clinically no acute CV symptoms such as chest pain or SOB. CTA chest negative for PE or pulmonary edema, though did show a probable new bone lesion (metastatic prostate cancer). Provider calling to discuss NSTEMI management. Of note, prior imaging has shown coronary artery calcifications so he does likely have underlying CAD (no prior cardiac cath). His recently diagnosed cardiomyopathy was most likely stress induced with recent TTE showing improved LVEF (27% >> 46%) WITHOUT coronary revascularization. TTE 3did however show posterolateral rWMAs (?RPDA). NSTEMI type 1 versus 2 at this point. Would admit locally and attempt to treat his nausea with antiemetics. Would start IV heparin for now and obtain repeat TTE to help with clinical decision making. I discussed the case with Dr. Rudolph who will consult locally. Pending TTE and local consultation we can reconsider transfer for [facility]. Given his metastatic prostate cancer with poor prognosis I think more thoughtful conversation about risk versus benefit and his goals of care should be had prior to subjecting him to an invasive test. I encouraged Dr. Philip to contact us if there is any change in symptoms, decision-making, or further need for guidance in management. The above recommendations were based on my discussion with Dr. Philip and Dr. Rudolph; I have notpersonally interviewed or examined this patient. Carlota Balbuena PA-C Cardiovascular Medicine Pager [phone] 12/20/2022 documented in this encounter Plan of Treatment Upcoming Encounters Date Type Department Care Team (Late st Contact Info) Description 10/16/2023 2:30 PM EDT Office Visit Hematology/Oncology at [address] [phone] Fiordaliza Downing APRN [facility] [place] [address] 11/10/2023 9:00 AM EDT Appointment [place] [address] Thomas Curtis MD [facility] [place] [address] 11/21/2023 11:00 AM EDT Infusion Hematology Oncology at [address] [phone] 12/05/2023 1:30 PM EDT Office Visit Hematology/Oncology at [address] [phone] Thomas Curtis MD [facility] HEMATOLOGY [place] [address] Fiordaliza Downing APRN [facility] [place] [address] 12/26/2023 9:00 AM EDT Appointment [place] [phone] Thomas Curtis MD [facility] [place]ATOLOG[place] [address] 02/09/2024 8:00 AM EST Appointment Nuclear Medicine at [place] [phone] Thomas Curtis MD [facility] [place] [address] 03/18/2024 3:00 PM EST Office Visit Cardiology at [address] [phone] Sameer Rudolph MD [facility] [place] [address] 03/22/2024 9:00 AM EST Appointment Nuclear Medicine at [place] [phone] Thomas Curtis MD [facility] HEMATOLOGY [place] [address] 08/23/2024 Hospital Encounter Main Operating Room [place] [phone] True Juarez MD [facility] [place] [address] Scheduled Procedures Name Priority Associated Diagnoses Date/Ti me CYSTO, STENT PLACEMENT (WRVU 2.82) Hydronephrosis with ureteral stricture, not elsewhere classified CYSTO, REMOVAL OF STENT, FOR EIGN BODY OR CALCULUS, SIMPLE (WRVU 2.81) Hydronephrosis with ureteral stricture, not elsewhere classified documented as of this encounter Visit Diagnoses Not on filedocumented in this encounter Care Teams Financial Reporting Analyst Relationship Specialty Start Date End Date Nicolasa Valenzuela PA [address] [place] [address] PCP - General Family Medicine 12/20/21 documented as of this encounter
--- OUTSIDE RECORDS SUMMARY | 2023-10-16 03:16 | XMS_ITS | Encounter Summary ---
Author Organization [facility] Address [facility] [place] [address] Care Team Providers Care Client Relationship Manager Name Role Phone Nicolasa Valenzuela Primary Care Pro vider Encounter Details Date Type Department Care Team (Late st Contact Info) Description 11/29/2022 Telephone Cardiology at [address] [place] [phone] Sameer Rudolph MD [facility] [place] [address] Social History Tobacco Use Types Packs/Day Years [...] slept in a usp (including now)? No 10/31/2022 Sex and Gender Information Value Date Recorded Sex Assigned at Not on file Gender Identity Not on file Sexual Orientation Not on file documented as of this encounter Miscellaneous Notes * Telephone Encounter - Sil Blunt RN - 11/29/2022 4:26 PM EDT ----- Message from Sameer Rudolph MD sent at 11/29/2022 4:14 PM EDT ----- Echo reviewed. Good improvement in LVEF, though there remains some parts of the heart that are hypokinetic, overall global mild reduction (from previously severe). If continues to be asymptomatic, would not do further testing or medication changes. If with activity he develops CP or untoward dyspnea, would get stress testing at that time. Relayed above to Huber, he stated he was very happy to hear the news and he would continue to assess for symptoms and call the office if any CP or dyspnea occur. documented in this encounter Plan of Treatment Upcoming Encounters Date Type Department Care Team (Late st Contact Info) Description 10/16/2023 2:30 PM EDT Office Visit Hematology/Oncology at [address] [phone] Fiordaliza Downing APRN [facility] [place] [address] 11/10/2023 9:00 AM EDT Appointment [place] [address] Thomas Curtis MD [facility] HEMATOLOGY [place] [address] 11/21/2023 11:00 AM EDT Infusion Hematology Oncology at [address] [phone] 12/05/2023 1:30 PM EDT Office Visit Hematology/Oncology at [address] [phone] Thomas Curtis MD [facility] HEMATOLOGY [place] [address] Fiordaliza Downing APRN [facility] [place] [address] 12/26/2023 9:00 AM EDT Appointment [place] [address] Thomas Curtis MD [facility] HEMATOLOGY [place] [address] 02/09/2024 8:00 AM EST Appointment [place] [address] Thomas Curtis MD [facility] HEMATOLOGY [place] [address] 03/18/2024 3:00 PM EST Office Visit Cardiology at [address] [phone] Sameer Rudolph MD [facility] [place] [address] 03/22/2024 9:00 AM EST Appointment [place] [address] Thomas Curtis MD [facility] HEMATOLOGY [place] [address] 08/23/2024 Hospital Encounter [place] [phone] True Juarez MD [facility] [place] [address] Scheduled Procedures Name Priority Associated Diagnoses Date/Ti me CYSTO, STENT PLACEMENT (WRVU 2.82) Hydronephrosis with ureteral stricture, not elsewhere classified CYSTO, REMOVAL OF STENT, FOR EIGN BODY OR CALCULUS, SIMPLE (WRVU 2.81) Hydronephrosis with ureteral stricture, not elsewhere classified documented as of this encounter Visit Diagnoses Not on filedocumented in this encounter Care Teams Client Relationship Manager Relationship Specialty Start Date End Date Nicolasa Valenzuela PA [address] [place] [address] PCP - General Family Medicine 12/20/21 documented as of this encounter
--- OUTSIDE RECORDS SUMMARY | 2023-10-16 03:16 | XMS_ITS | Encounter Summary ---
Author Organization [facility] [place] [address] Care Team Providers Care River Expedition Guide Name Role Phone Nicolasa Valenzuela Primary Care Pro vider Reason for Visit * Reason Comments Specialty Pharmacy Review Abiraterone 50 0mg tablet Encounter Details Date Type Department Care Team (Late st Contact Info) Description 10/31/2022 Specialty Pharmacy Pharmacy at [facility] [place] [address] Estefany Rain, TEACHER DRAMA Social History Tobacco Use Types Packs/Day Years [...] encounter Progress Notes * Estefany Rain - 10/31/2022 11:59 PM EDT [facility] has completed a benefits investigation for Huber Keys to review their eligibility to fill at [facility]. Per patient's medication list they are prescribed Abiraterone 500mg tablet and the medication is able to be filled at the [facility], but the medication cost may not be financially viable. The patient is eligible to fill the medication through Specialty Pharmacy with a high copay. PA is approved until 11/08/2023. The patient would like the script sent to [facility] to use their in-house financial assistance documented in this encounter Plan of Treatment Upcoming Encounters Date Type Department Care Team (Late st Contact Info) Description 10/16/2023 2:30 PM EDT Office Visit Hematology/Oncology at [address] [phone] Fiordaliza Downing APRN [facility] [place] [address] 11/10/2023 9:00 AM EDT Appointment [place] [phone] Thomas Curtis MD [facility] [place] [address] 11/21/2023 11:00 AM EDT Infusion Hematology Oncology at [address] [phone] 12/05/2023 1:30 PM EDT Office Visit Hematology/Oncology at [address] [phone] Thomas Curtis MD [facility] [place] [address] Fiordaliza Downing APRN [facility] [place] [address] 12/26/2023 9:00 AM EDT Appointment [place] [phone] Thomas Curtis MD [facility] [place] [address] 02/09/2024 8:00 AM EST Appointment [place] [address] Thomas Curtis MD [facility] [place] [address] 03/18/2024 3:00 PM EST Office Visit Cardiology at [address] [place] [phone] Sameer Rudolph MD [facility] [place] [address] 03/22/2024 9:00 AM EST Appointment [place] [phone] Thomas Curtis MD [facility] [place] [address] 08/23/2024 Hospital Encounter Main Operating Room [address] [place] [phone] True Juarez MD [facility] [place] [address] Scheduled Procedures Name Priority Associated Diagnoses Date/Ti me CYSTO, STENT PLACEMENT (WRVU 2.82) Hydronephrosis with ureteral stricture, not elsewhere classified CYSTO, REMOVAL OF STENT, FOR EIGN BODY OR CALCULUS, SIMPLE (WRVU 2.81) Hydronephrosis with ureteral stricture, not elsewhere classified documented as of this encounter Visit Diagnoses Not on filedocumented in this encounter Care Teams River Expedition Guide Relationship Specialty Start Date End Date Nicolasa Valenzuela PA [address] [place] [address] PCP - General Family Medicine 12/20/21 documented as of this encounter
--- OUTSIDE RECORDS SUMMARY | 2023-10-16 03:16 | XMS_ITS | Encounter Summary ---
Author Organization [facility] [place] [address] Care Team Providers Care Field Services Analyst Name Role Phone Nicolasa Valenzuela Primary Care Pro vider Encounter Details Date Type Department Care Team (Late Contact Info) Description 10/05/2022 [place] [phone] Alexey Suárez MA Social History Tobacco Use Types Packs/Day Years [...] encounter Miscellaneous Notes * Telephone Encounter - Alexey Suárez MA - 10/05/2022 10:45 AM EDT Opened in error documented in this encounter Plan of Treatment Upcoming Encounters Date Type Department Care Team (Late Contact Info) Description 10/16/2023 2:30 PM EDT Office Visit Hematology/Oncology at [address] [phone] Fiordaliza Downing APRN [facility] DR MEDICAL ONCOLOGY [place], [place] [phone] 11/10/2023 9:00 AM EDT Appointment [place] [address] Thomas Crutis MD [facility] [place] [address] 11/21/2023 11:00 AM EDT Infusion Hematology Oncology at [address] [phone] 12/05/2023 1:30 PM EDT Office Visit Hematology/Oncology at [address] [phone] Thomas Curtis MD [facility] [place] [address] Fiordaliza Downing APRN [facility] [place] [address] 12/26/2023 9:00 AM EDT Appointment [place] [address] Thomas Curtis MD [facility] [place] [address] 02/09/2024 8:00 AM EST Appointment [place] [address] Thomas Curtis MD [facility] [place] [address] 03/18/2024 3:00 PM EST Office Visit Cardiology at [address] [phone] Sameer Rudolph MD [facility] [place] [address] 03/22/2024 9:00 AM EST Appointment Nuclear Medicine at [place] [phone] Thomas Curtis MD [facility] H[place]OLOGY [place] [address] 08/23/2024 Hospital Encounter [place] [address] True Juarez MD [facility] UROLOGY [place], [place] [phone] Scheduled Procedures Name Priority Associated Diagnoses Date/Ti me CYSTO, STENT PLACEMENT (WRVU 2.82) Hydronephrosis with ureteral stricture, not elsewhere classified CYSTO, REMOVAL OF STENT, FOR EIGN BODY OR CALCULUS, SIMPLE (WRVU 2.81) Hydronephrosis with ureteral stricture, not elsewhere classified documented as of this encounter Visit Diagnoses Not on filedocumented in this encounter Care Teams Field Services Analyst Relationship Specialty Start Date End Date Nicolasa Valenzuela PA [address] [place] [address] PCP - General Family Medicine 12/20/21 documented as of this encounter
--- OUTSIDE RECORDS SUMMARY | 2023-10-16 03:16 | XMS_ITS | Encounter Summary ---
Author Organization [facility] Address [facility] [place] [address] Care Team Providers Care Airplane Refueler Name Role Phone Nicolasa Valenzuela Primary Care Pro vider Encounter Details Date Type Department Care Team (Latest Contact Info) Description 10/31/2022 Travel Social History Tobacco Use Types Packs/Day [...] in a senior living (including now)? No 10/31/2022 Sex and Gender Information Value Date Recorded Sex Assigned at Not on file Gender Identity Not on file Sexual Orientation Not on file documented as of this encounter Plan of Treatment Upcoming Encounters Date Type Department Care Team (Late st Contact Info) Description 10/16/2023 2:30 PM EDT Office Visit Hematology/Oncology at [address] [phone] Fiordaliza Downing APRN [facility] [place] [address] 11/10/2023 9:00 AM EDT Appointment [place] [address] Thomas Curtis MD [facility] [place] [address] 11/21/2023 11:00 AM EDT Infusion Hematology Oncology at [address] [phone] 12/05/2023 1:30 PM EDT Office Visit Hematology/Oncology at [address] [phone] Thomas Curtis MD [facility] [place] [address] Fiordaliza Downing APRN [facility] [place] [address] 12/26/2023 9:00 AM EDT Appointment [place] [phone] Thomas Curtis MD [facility] [place] [address] 02/09/2024 8:00 AM EST Appointment Nuclear Medicine at [place] [phone] Thomas Curtis MD [facility] [place] [address] 03/18/2024 3:00 PM EST Office Visit Cardiology at [address] [phone] Sameer Rudolph MD [facility] [place] [address] 03/22/2024 9:00 AM EST Appointment [place] [address] Thomas Curtis MD [facility] [place] [address] 08/23/2024 Hospital Encounter [place] [address] True Juarez MD [facility] [place] [address] Scheduled Procedures Name Priority Associated Diagnoses Date/Ti me CYSTO, STENT PLACEMENT (WRVU 2.82) Hydronephrosis with ureteral stricture, not elsewhere classified CYSTO, REMOVAL OF STENT, FOR EIGN BODY OR CALCULUS, SIMPLE (WRVU 2.81) Hydronephrosis with ureteral stricture, not elsewhere classified documented as of this encounter Visit Diagnoses Not on filedocumented in this encounter Care Teams Airplane Refueler Relationship Specialty Start Date End Date Nicolasa Valenzuela PA [address] [place] [address] PCP - General Family Medicine 12/20/21 documented as of this encounter
--- OUTSIDE RECORDS SUMMARY | 2023-10-16 03:16 | XMS_ITS | Encounter Summary ---
Author Organization [facility] Address [facility] [place] [address] Care Team Providers Care Prospecting Observer Name Role Phone Nicolasa Valenzuela Primary Care Pro vider Encounter Details Date Type Department Care Team (Latest Contact Info) Description 12/20/2022 4:40 PM EDT Ext Surgery or Single Event Cardiology at [address] [place] [phone] Sameer Rudolph MD [facility] [place] [address] Cardiomyopathy, unspecified type Social History Tobacco Use [...] PM EDT Office Visit Hematology/Oncology at [address] [phone] Fiordaliza Downing APRN [facility] [place] [address] 11/10/2023 9:00 AM EDT Appointment [place] [address] Thomas Curtis MD [facility] HEMATOLOGY [place] [address] 11/21/2023 11:00 AM EDT Infusion Hematology Oncology at [address] [phone] 12/05/2023 1:30 PM EDT Office Visit Hematology/Oncology at [address] [phone] Thomas Curtis MD [facility] HEMATOLOGY [place] [address] Fiordaliza Downing APRN [facility] [place] [address] 12/26/2023 9:00 AM EDT Appointment [place] [phone] Thomas Curtis MD [facility] HEMATOLOGY [place] [address] 02/09/2024 8:00 AM EST Appointment [place] [phone] Thomas Curtis MD [facility] HEMATOLOGY [place] [address] 03/18/2024 3:00 PM EST Office Visit Cardiology at [address] [phone] Sameer Rudolph MD [facility] [place] [address] 03/22/2024 9:00 AM EST Appointment [place] [phone] Thomas Curtis MD [facility] HEMATOLOGY [place] [address] 08/23/2024 Hospital Encounter [place] [phone] True Juarez MD [facility] [place] [address] Scheduled Procedures Name Priority Associated Diagnoses Date/Ti me CYSTO, STENT PLACEMENT (WRVU 2.82) Hydronephrosis with ureteral stricture, not elsewhere classified CYSTO, REMOVAL OF STENT, FOR EIGN BODY OR CALCULUS, SIMPLE (WRVU 2.81) Hydronephrosis with ureteral stricture, not elsewhere classified documented as of this encounter Procedures Procedure Name Priority Date/Time Associated Diagnosis Comments ECHO SCAN (SCAN) 12/20/2022 12:0 0 AM EDT documented in this encounter Results * SCAN DOC: ECHO (12/20/2022 12:00 AM EDT) Anatomical Region Laterality Modality Cardiac Other Narrative 12/20/2022 12:00 AM EDT Ordered by an unspecified provider. Scanning Provider MEDIA MGR SCAN EXT O RDR/RSLT documented in this encounter Visit Diagnoses Diagnosis Cardiomyopathy, unspecified type documented in this encounter Care Teams Prospecting Observer Relationship Specialty Start Date End Date Nicolasa Valenzuela PA [address] [place] [address] PCP - General Family Medicine 12/20/21 documented as of this encounter
--- OUTSIDE RECORDS SUMMARY | 2023-10-16 03:16 | XMS_ITS | Encounter Summary ---
Author Organization [facility] [place] [address] Care Team Providers Care Teletype Mechanic Name Role Phone Nicolasa Valenzuela Primary Care Pro vider Reason for Visit * Reason Onset Date Comments Referral 10/03/2022 Congestive Heart Failure 10/03/2022 Encounter Details Date Type Department Care Team (Late Contact Info) Description 10/03/2022 Telephone Cardiology at [address] [phone] Roxi Burleson, electric shipyard operator; Congestive Heart Failure Social History Tobacco Use Types Packs/Day Years [...] PM EDT Office Visit Hematology/Oncology at [address] [phone] Fiordaliza Downing APRN [facility] [place] [address] 11/10/2023 9:00 AM EDT Appointment [place] [address] Thomas Curtis MD [facility] HEMATOLOGY [place] [address] 11/21/2023 11:00 AM EDT Infusion Hematology Oncology at [address] [phone] 12/05/2023 1:30 PM EDT Office Visit Hematology/Oncology at [address] [phone] Thomas Curtis MD [facility] HEMATOLOGY [place] [address] Fiordaliza Downing APRN [facility] [place] [address] 12/26/2023 9:00 AM EDT Appointment [place] [address] Thomas Curtis MD [facility] HEMATOLOGY [place] [address] 02/09/2024 8:00 AM EST Appointment [place] [address] Thomas Curtis MD [facility] HEMATOLOGY [place] [address] 03/18/2024 3:00 PM EST Office Visit Cardiology at [address] [phone] Sameer Rudolph MD [facility] [place] [address] 03/22/2024 9:00 AM EST Appointment [place] [phone] Thomas Curtis MD [facility] HEMATOLOGY [place] [address] 08/23/2024 Hospital Encounter [place] [phone] True Juarez MD [facility] [place] [address] Scheduled Procedures Name Priority Associated Diagnoses Date/Ti me CYSTO, STENT PLACEMENT (WRVU 2.82) Hydronephrosis with ureteral stricture, not elsewhere classified CYSTO, REMOVAL OF STENT, FOR EIGN BODY OR CALCULUS, SIMPLE (WRVU 2.81) Hydronephrosis with ureteral stricture, not elsewhere classified documented as of this encounter Visit Diagnoses Not on filedocumented in this encounter Care Teams Teletype Mechanic Relationship Specialty Start Date End Date Nicolasa Valenzuela PA [address] [place] [address] PCP - General Family Medicine 12/20/21 documented as of this encounter
--- OUTSIDE RECORDS SUMMARY | 2023-10-16 03:16 | XMS_ITS | Encounter Summary ---
Author Organization [facility] [place] [address] Care Team Providers Care Building Rental Superintendent Name Role Phone Nicolasa Valenzuela Primary Care Pro vider Encounter Details Date Type Department Care Team (Late st Contact Info) Description 12/20/2022 External Results Emergency Department [facility] [place] [phone] Social History Tobacco Use Types Packs/Day Years [...] slept in a jail (including now)? No 10/31/2022 Sex and Gender Information Value Date Recorded Sex Assigned at Not on file Gender Identity Not on file Sexual Orientation Not on file documented as of this encounter Plan of Treatment Upcoming Encounters Date Type Department Care Team (Late st Contact Info) Description 10/16/2023 2:30 PM EDT Office Visit Hematology/Oncology at [address] [phone] Fiordaliza Downing APRN [facility] [place] [address] 11/10/2023 9:00 AM EDT Appointment [place] [address] Thomas Curtis MD [facility] [place]OLOG[place] [address] 11/21/2023 11:00 AM EDT Infusion Hematology Oncology at [address] [phone] 12/05/2023 1:30 PM EDT Office Visit Hematology/Oncology at [address] [phone] Thomas Curtis MD [facility] [place]ATOLOGY [place] [address] Fiordaliza Downing APRN [facility] [place] [address] 12/26/2023 9:00 AM EDT Appointment [place] [phone] Thomas Curtis MD [facility] [place]EMATOLOGY [place] [address] 02/09/2024 8:00 AM EST Appointment [place] [phone] Thomas Curtis MD [facility] [place]EMATOLOGY [place] [address] 03/18/2024 3:00 PM EST Office Visit Cardiology at [address] [phone] Sameer Rudolph MD [facility] [place] [address] 03/22/2024 9:00 AM EST Appointment [place] [phone] Thomas Curtis MD [facility] [place]EMATOLOGY [place] [address] 08/23/2024 Hospital Encounter [place] [phone] True Juarez MD [facility] [place] [address] Scheduled Procedures Name Priority Associated Diagnoses Date/Ti me CYSTO, STENT PLACEMENT (WRVU 2.82) Hydronephrosis with ureteral stricture, not elsewhere classified CYSTO, REMOVAL OF STENT, FOR EIGN BODY OR CALCULUS, SIMPLE (WRVU 2.81) Hydronephrosis with ureteral stricture, not elsewhere classified documented as of this encounter Procedures Procedure Name Priority Date/Time Associated Diagnosis Comments ECG SCAN Routine 12/20/2022 12:00 PM EDT documented in this encounter Results * Scan Doc: ECG (12/20/2022 12:00 PM EDT) Historical Provider MD CORRIGAN MGMirna SCAN EX T ORDR/RSLT documented in this encounter Visit Diagnoses Not on filedocumented in this encounter Care Teams Building Rental Superintendent Relationship Specialty Start Date End Date Nicolasa Valenzuela PA [address] [place] [address] PCP - General Family Medicine 12/20/21 documented as of this encounter
--- OUTSIDE RECORDS SUMMARY | 2023-10-16 03:16 | XMS_ITS | Encounter Summary ---
Author Organization [facility] [place] [address] Care Team Providers Care Cooperative Education Coordinator Name Role Phone Nicolasa Valenzuela Primary Care Pro vider Reason for Visit * Reason Comments Prior Authorization Abiraterone Encounter Details Date Type Department Care Team (Late st Contact Info) Description 11/08/2022 Specialty Pharmacy Pharmacy at [facility] [place] [address] Daniel Mcnulty, COMPRESS TRUCKER Social History Tobacco Use Types Packs/Day Years [...] in a nursing home (including now)? No 10/31/2022 Sex and Gender Information Value Date Recorded Sex Assigned at Not on file Gender Identity Not on file Sexual Orientation Not on file documented as of this encounter Progress Notes * Daniel Mcnulty 11/08/2022 1:22 PM EDT [facility], Prior Authorization Approval Medication Name: ABIRATERONE 500 MG TABLET Medication ID: Approval Dates: 11/07/2022 to 11/08/2023 Insurance requirements/notes: None Other Notes: None Case/Reference #: [id number] Approval notification Received via: [facility] Copay: $1,952.31 Copay assistance: Other (Enter Comment) Copay Notes: PT has a high copay - Would you like me to refer the PT to [facility]? Insurance mandated Pharmacy: Fillable at [facility]: Yes Patient Notified: No Pharmacy staff will be reaching out to the patient to inform them of their medication's [facility]. If applicable, a pharmacist will speak with the patient to offer our specialty pharmacy services and to arrange delivery of their medication. Daniel Mcnulty 11/08/22 1:28 PM [facility], Medication Prior Authorization Submission Patient: Huber Keys Patient : 1955 Patient Address: [address] [address] (home) Medication Name: ABIRATERONE 500 MG TABLET Medication ID: Subscriber Insurance: [employer] 2 Subscriber Insurance Comment: Phone: Fax: Physician: CRISELDA FRIAS Physician Comment: Sent Via: [facility] B[place]on: [id number] Ref/Case/PA#: Medication Strength Frequency Requested: Take 2 tablets by mouth daily Qty/Day Supply: New Start: New to Therapy Diagnosis & ICD-10 Code: C61- Prostate Cancer Patient Notified: No Submission Notes: None Daniel Mcnulty 11/08/22 1:28 PM documented in this encounter Plan of Treatment Upcoming Encounters Date Type Department Care Team (Late st Contact Info) Description 10/16/2023 2:30 PM EDT Office Visit Hematology/Oncology at [address] [address] Fiordaliza Downing APRN [facility] [place] [address] 11/10/2023 9:00 AM EDT Appointment [place] [address] Thomas Curtis MD [facility] HEMATOLOGY [place] [address] 11/21/2023 11:00 AM EDT Infusion Hematology Oncology at [address] [phone] 12/05/2023 1:30 PM EDT Office Visit Hematology/Oncology at [address] [address] Thomas Curtis MD [facility] HEMATOLOGY [place] [address] Fiordaliza Downing APRN [facility] [place] [address] 12/26/2023 9:00 AM EDT Appointment [place] [phone] Thomas Curtis MD [facility] HEMATOLOGY [place] [address] 02/09/2024 8:00 AM EST Appointment [place] [phone] Thomas Curtis MD [facility] HEMATOLOGY [place] [address] 03/18/2024 3:00 PM EST Office Visit Cardiology at [address] [place] [phone] Sameer Rudolph MD [facility] [place] [address] 03/22/2024 9:00 AM EST Appointment [place] [phone] Thomas Curtis MD [facility] HEMATOLOGY [place] [address] 08/23/2024 Hospital Encounter [place] [address] True Juarez MD [facility] [place] [address] Scheduled Procedures Name Priority Associated Diagnoses Date/Ti me CYSTO, STENT PLACEMENT (WRVU 2.82) Hydronephrosis with ureteral stricture, not elsewhere classified CYSTO, REMOVAL OF STENT, FOR EIGN BODY OR CALCULUS, SIMPLE (WRVU 2.81) Hydronephrosis with ureteral stricture, not elsewhere classified documented as of this encounter Visit Diagnoses Not on filedocumented in this encounter Care Teams Cooperative Education Coordinator Relationship Specialty Start Date End Date Nicolasa Valenzuela PA [address] [place] [address] PCP - General Family Medicine 12/20/21 documented as of this encounter
--- OUTSIDE RECORDS SUMMARY | 2023-10-16 03:16 | XMS_ITS | Encounter Summary ---
Author Organization [facility] Address [facility] [place] [address] Care Team Providers Care Facilities Custodian Name Role Phone Nicolasa Valenzuela Primary Care Pro vider Reason for Referral * Diagnostic Test (Routine) - Closed Specialty Diagnoses / Procedures Referred By Toño maoyrga Referred To Contact Cardiology Diagnoses Cardiomyopathy, unspecified type Procedures Echocardiogram Transthoracic Sameer Rudolph MD [facility] [place] [address] Referral ID Status Reason Start Date Expiration Date V isits Requested Visits Authorized [id number] Closed Specialty Service Requested 11/10/2022 05/09/2023 1 1 Reason for Visit * Reason Comments Establish Care Congestive Heart Failure Encounter Details Date Type Department Care Team (Late st Contact Info) Description 11/10/2022 8:20 AM EDT Office Visit Cardiology at [address] [place] [phone] Sameer Rudolph MD [facility] [place] [address] Cardiomyopathy, unspecified type Social History Tobacco Use [...] Sign Reading Time Taken Comments Blood Pressure 108/63 11/10/2022 8:36 AM EDT Pulse 58 11/10/2022 8:36 AM EDT ECG Temperature - - Respiratory Rate - - Oxygen Saturation - - Inhaled Oxygen Concentration - - Weight 82.3 kg (181 lb 8 oz) 11/10/2022 8:36 AM EDT Height 177.8 cm (5' 10) 11/10/2022 8:36 AM EDT Body Mass Index 26.04 11/10/2022 8:36 AM EDT documented in this encounter Progress Notes * Sameer Rudolph MD - 11/10/2022 8:20 AM EDT Images from the original note were not included. CARDIOLOGY NEW OUTPATIENT PRIMARY CARE PROVIDER: JESSE Nesbitt PROBLEM LIST: Patient Active Problem List Diagnosis Foot pain Hypercholesterolemia Hypothyroidism Onychomycosis Traumatic plantar fasciitis Type 2 diabetes mellitus Adenocarcinoma of prostate 10/04/2022 Surgical Pathology DIAGNOSIS A - Lymph node, biopsy: - Metastatic carcinoma, consistent with prostatic origin (see discussion) Wishram light chain deposition disease Gout Cardiomyopathy 09/2022: EF 27%, apical AK Retroperitoneal lymphadenopathy Hydronephrosis Pleural effusion, bilateral Bilateral lower extremity edema MEDICATIONS: Current Outpatient Medications Medication Instructions abiraterone (ZYTIGA) 1,000 mg, Oral, DAILY atorvastatin (LIPITOR) 40 mg, Oral, DAILY bicalutamide (CASODEX) 50 mg, Oral, DAILY cholecalciferol (VITAMIN D3) 1,000 Units, Oral, DAILY HYDROcodone-acetaminophen ([place]) 5-325 mg tablet 1 tablet, Oral, EVERY 6 HOURS PRN Lantus Solostar U-100 Insulin 8 Units, Subcutaneous, DAILY levothyroxine (SYNTHROID) 150 mcg, Oral, DAILY predniSONE (DELTASONE) 5 mg, Oral, DAILY Subjective: Patient ID: Huber Keys is a 67 y.o. male. HPI: 67 m presents on HCK after being found to have a severely reduced EF. TO recall, he was transferred to [facility] after he was found to have post-renal azotemia, hydropnephrosis. He had ureteral stents placed, and since then has been micturating a significant amount. When he returned home after discharge, at first he was quite weak, with nyha iii dyspnea, orthopnea. No chest pain. However, as time has elapsed he is steadily improved in symptoms, now taking 1-1.5 mile walks without exertional encumbrance. He feels back to baseline He has a positive outlook on life and his clinical trajectory. Objective: Patient Vitals for the past 24 hrs: Pulse BP 11/10/22 0836 58 108/63 Gen: pleasant male in NAD Cor: rrr, s1/s2 of nl character and amplitude, no m/r/g. Estimated RAP not elevated. Carotids without bruit. Pulm: CTAB. Normal diaphragmatic movement without use of accessory muscles EKG: sb, nssttw TTE: 09/2022 EF 27%, apical AK (no lv thrombus) RV mildly dilated with normal function 3+ MR PASP 69 Assessment and Plan: Cardiomyopathy Patient's symptoms have improved substantially since hospital admission with hydronephrosis/post renal AWLTER. It has been put forth that his CDM is due to CAD; while he does have CAD by virtue of coronary calcium, I would not expect such a substantial improvement in symptoms in this short amount of time, as he did not receive reperfusion nor cardioprotection since. His presentation was one of renalfailure, not heart failure. Taken together, I think the most likely diagnosis is takotsubo. Before starting empiric cardioprotection and pursuing ischemic evaluation, I think the most effective way to confirm/refute this hypothesis would be a TTE. RTC pending TTE Sameer Rudolph MD Between 45-59 minutes were spent doing patient care, chart care/review (today), and care coordination. documented in this encounter Miscellaneous Notes * Assessment & Plan Note - Sameer Rudolph MD - 11/10/2022 9:12 AM EDT Associated Problem(s): Cardiomyopathy Patient's symptoms have improved substantially since hospital [...] cardioprotection since. His presentation was one of renalfailure, not heart failure. Taken together, I think the most likely diagnosis is takotsubo. Before starting empiric cardioprotection and pursuing ischemic evaluation, I think the most effective way to confirm/refute this hypothesis would be a TTE. documented in this encounter Plan of Treatment Upcoming Encounters Date Type Department Care Team (Late st Contact Info) Description 10/16/2023 2:30 PM EDT Office Visit Hematology/Oncology at [address] [phone] Fiordaliza Downing, EDGAR [facility] [place] [address] 11/10/2023 9:00 AM EDT Appointment [place] [address] Thomas Curtis MD [facility] HEMATOLOGY [place] [address] 11/21/2023 11:00 AM EDT Infusion Hematology Oncology at [address] [phone] 12/05/2023 1:30 PM EDT Office Visit Hematology/Oncology at [address] [phone] Thomas Curtis MD [facility] HEMATOLOGY [place] [address] Fiordaliza Downing LITHOPONE MILL WORKER [facility] [place] [address] 12/26/2023 9:00 AM EDT Appointment [place] [address] Thomas Curtis MD [facility] HEMATOLOGY [place] [address] 02/09/2024 8:00 AM EST Appointment [place] [phone] Thomas Curtis MD [facility] HEMATOLOGY [place] [address] 03/18/2024 3:00 PM EST Office Visit Cardiology at [address] [address] Sameer Rudolph MD [facility] [place] [address] 03/22/2024 9:00 AM EST Appointment Nuclear Medicine at [place] [phone] Thomas Curtis MD [facility] HEMATOLOGY [place] [address] 08/23/2024 Hospital Encounter [place] [address] True Juarez MD [facility] UROLOGY [place], [place] [phone] Scheduled Orders Name Type Priority Associated Diagnoses Orde r Schedule Echocardiogram Transthoracic Echocardiography Routine Cardiomyopathy, unspecified type Expected: 11/10/2022, Expires: 05/12/2023 Scheduled Procedures Name Priority Associated Diagnoses Date/Ti me CYSTO, STENT PLACEMENT (WRVU 2.82) Hydronephrosis with ureteral stricture, not elsewhere classified CYSTO, REMOVAL OF STENT, FOR EIGN BODY OR CALCULUS, SIMPLE (WRVU 2.81) Hydronephrosis with ureteral stricture, not elsewhere classified documented as of this encounter Visit Diagnoses Diagnosis Cardiomyopathy, unspecified type documented in this encounter Care Teams Facilities Custodian Relationship Specialty Start Date End Date Nicolasa Valenzuela PA [address] [place] [address] PCP - General Family Medicine 12/20/21 documented as of this encounter
--- OUTSIDE RECORDS SUMMARY | 2023-10-16 03:16 | XMS_ITS | Encounter Summary ---
Author Organization [facility] [place] [address] Care Team Providers Care Tying Machine Operator Name Role Phone Nicolasa Valenzuela Primary Care Pro vider Reason for Visit * Reason Onset Date Comments Medical Care Coordination 11/10/2022 Encounter Details Date Type Department Care Team (Late st Contact Info) Description 11/10/2022 Refill Hematology and Oncology at [facility] [place] [address] Inna Sutherland, [employer] ROOM Malignant neoplasm of prostate metastatic to bone [...] slept in a correction (including now)? No 10/31/2022 Sex and Gender Information Value Date Recorded Sex Assigned at Not on file Gender Identity Not on file Sexual Orientation Not on file documented as of this encounter Miscellaneous Notes * Telephone Encounter - Inna Sutherland RN - 11/10/2022 1:35 PM EDT [facility] from [facility] that they had not received referral for pt's zytiga yet. Referral for assistance faxed to [employer], script pended to provider for review, signature and escribe. documented in this encounter Plan of Treatment Upcoming Encounters Date Type Department Care Team (Late st Contact Info) Description 10/16/2023 2:30 PM EDT Office Visit Hematology/Oncology at [address] [address] Fiordaliza Downing APRN [facility] [place] [address] 11/10/2023 9:00 AM EDT Appointment [place] [address] Thomas Curtis MD [facility] [place] [address] 11/21/2023 11:00 AM EDT Infusion Hematology Oncology at [address] [phone] 12/05/2023 1:30 PM EDT Office Visit Hematology/Oncology at [address] [phone] Thomas Curtis MD [facility] [place] [address] Fiordaliza Downing APRN [facility] [place] [address] 12/26/2023 9:00 AM EDT Appointment [place] [phone] Thomas Curtis MD [facility] [place] [address] 02/09/2024 8:00 AM EST Appointment [place] [phone] Thomas Curtis MD [facility] [place] [address] 03/18/2024 3:00 PM EST Office Visit Cardiology at [address] [place] [phone] Sameer Rudolph MD [facility] [place] [address] 03/22/2024 9:00 AM EST Appointment [place] [phone] Thomas Curtis MD [facility] [place] [address] 08/23/2024 Hospital Encounter [place] [address] True Juarez MD [facility] [place] [address] Scheduled Procedures Name Priority Associated Diagnoses Date/Ti [...] prostate documented in this encounter Care Teams Tying Machine Operator Relationship Specialty Start Date End Date Nicolasa Valenzuela PA [address] [place] [address] PCP - General Family Medicine 12/20/21 documented as of this encounter
--- OUTSIDE RECORDS SUMMARY | 2023-10-16 03:16 | XMS_ITS | Encounter Summary ---
Author Organization Formerly [facility] Address [facility] [place] [address] Care Team Providers Care Concaver Name Role Phone Nicolasa Valenzuela Primary Care Pro vider Encounter Details Date Type Department Care Team (Latest Contact Info) Description 12/27/2022 11:41 AM EDT - 12/27/2022 11:59 PM EDT Hospital Encounter Hematology and Oncology at [facility] [place] [address] Malignant neoplasm of prostate metastatic to bone [...] Sig Dispensed Refills Start Date End Date levothyroxine (Synthroid) 150 mcg tablet Take 150 mcg by mouth daily. HYDROcodone-acetamin ophen ([place]) 5-325 mg tablet Take 1 tablet by [...] tablets by mouth daily. 60 tablet 5 11/14/2022 02/28/2023 predniSONE (Deltasone) 5 mg tablet Take 1 tablet by mouth daily. 30 tablet 5 11/04/2022 03/21/2023 bicalutamide (Casodex) 50 mg tablet Take 1 tablet by mouth daily. 20 tablet 3 10/08/2022 01/31/2023 documented as of this encounter Plan of Treatment Upcoming Encounters Date Type Department Care Team (Late st Contact Info) Description 10/16/2023 2:30 PM EDT Office Visit Hematology/Oncology at [address] [phone] Fiordaliza Downing, QUANTITATIVE STRATEGY ANALYST [facility] [place] [address] 11/10/2023 9:00 AM EDT Appointment [place] [address] Thomas Curtis MD [facility] HEMATOLOGY [place] [address] 11/21/2023 11:00 AM EDT Infusion Hematology Oncology at [address] [phone] 12/05/2023 1:30 PM EDT Office Visit Hematology/Oncology at [address] [phone] Thomas Curtis MD [facility] HEMATOLOGY [place] [address] Fiordaliza Downing APRN [facility] [place] [address] 12/26/2023 9:00 AM EDT Appointment [place] [address] Thomas Curtis MD [facility] HEMATOLOGY [place] [address] 02/09/2024 8:00 AM EST Appointment [place] [address] Thomas Curtis MD [facility] HEMATOLOGY [place] [address] 03/18/2024 3:00 PM EST Office Visit Cardiology at [address] [place] [phone] Sameer Rudolph MD [facility] [place] [address] 03/22/2024 9:00 AM EST Appointment [place] [address] Thomas Curtis MD [facility] HEMATOLOGY [place] [address] 08/23/2024 Hospital Encounter Main [place] [address] True Juarez MD [facility] [place] [address] Scheduled Procedures Name Priority Associated Diagnoses Date/Ti me CYSTO, STENT PLACEMENT (WRVU 2.82) Hydronephrosis with ureteral stricture, not elsewhere classified CYSTO, REMOVAL OF STENT, FOR EIGN BODY OR CALCULUS, SIMPLE (WRVU 2.81) Hydronephrosis with ureteral stricture, not elsewhere classified documented as of this encounter Procedures Procedure Name Priority Date/Time Associated Diagnosis Comments HEMOGRAM Routine 12/27/2022 11:57 AM EDT Malignant neoplasm of prostate metastatic to bone DIFFERENTIAL, AUTOMATED Routine 12/27/2022 11:57 AM EDT Malignant neoplasm of prostate metastatic to bone CBC (WITH DIFF) Routine 12/27/2022 11:57 AM EDT Malignant neoplasm of prostate metastatic to bone TESTOSTERONE, TOTAL Routine 12/27/2022 1 1:57 AM EDT Malignant neoplasm of prostate metastatic to bone PSA (ULTRASENSITIVE) Routine 12/27/2022 11:57 AM EDT Malignant neoplasm of prostate metastatic to bone COMPREHENSIVE METABOLIC PANEL Routine 12/27/2022 11:57 AM EDT Malignant neoplasm of prostate metastatic to bone documented in this encounter Results * Differential, Automated (12/27/2022 11:57 AM EDT) Neutrophil % 70.1 % [facility] Neutrophil Absolute 5.36 1.70 - 6.10 x10(3)/[facility] Lymph % 17.8 % [facility] Lymphocytes Abs 1.4 0.9 - 3.2 x10(3)/[facility] Monocyte % 8.4 % [facility] Monocyte Abs 0.6 0.3 - 0.9 x10(3)/[facility] Eos % 2.4 % [facility] Eosinophils Abs 0.2 0.0 - 0.4 x10(3)/[facility] Basophil % 0.8 % [facility] Baso Absolute 0.1 0.0 - 0.1 x10(3)/[facility] Immature Gran % 0.50 % [facility] Comment: Immature granulocytes(IG's)percentage and absolute count will include metamyelocytes, myelocytes, and promyelocytes. Blood smears from CBCs yielding IG's will be scanned manually for concordance. If this scan disagrees with the automated IG or if promyelocytes are noted, a manual differential will be performed. Immature Gran Absolute 0.04 0.00 - 0.04 x10(3)/[facility] Blood 12/27/2022 11:5 7 AM EDT 12/27/2022 12:01 PM EDT Narrative Resulting Agency Comment Spec In Lab Nabor Byrne MD HEMATOLOGY ORDERABLE S [facility] [place] [address] * (ABNORMAL) Hemogram (12/27/2022 11:57 AM EDT) White Blood Cell 7.6 4.0 - 9.5 x10(3)/mc L [facility] Red Blood Cell 3.58(L) 4.58 - 5.54 x10(6)/mc L [facility] Hemoglobin 10.6(L) 13.7 - 16.5 g/dL [facility] Hematocrit 32.5(L) 40.5 - 48.5 % [facility] Mean Cell Volume 90.8 82.9 - 93.1 fL [facility] Mean Cell Hemoglobin 29.6 27.5 - 32.1 pg [facility] Mean Cell Hemoglobin Concentration 32.6 32.0 - 35.7 g/dL [facility] Platelet 549(H) 145 - 357 x10(3)/mc L [facility] RDW Standard Deviation 51.7(H) 36.0 - 45.0 fL [facility] RDW coefficient of variation 15.4(H) 11.4 - 13.8 % [facility] Mean Platelet Volume 8.8 7.6 - 12.9 fL [facility] NRBC% auto 0.0 % [facility] NRBC Absolute 0.000 0.000 - 0.000 x10(3)/mc L [facility] Blood 12/27/2022 11:5 7 AM EDT 12/27/2022 12:01 PM EDT Narrative Resulting Agency Comment Spec In Lab Nabor Byrne MD HEMATOLOGY ORDERABLE S [facility] [place] [address] * (ABNORMAL) Comprehensive metabolic panel (non-fasting) (12/27/2022 11:57 AM EDT) Glucose 101 65 - 199 mg/dL [facility] Comment:Diabetes: >=200 mg/d L plus symptoms Blood Urea Nitrogen 30(H) 10 - 20 mg/dL [facility] Creatinine 2.07(H) 0.80 - 1.50 mg/dL [facility] Sodium 134(L) 135 - 145 mmol/L [facility] Potassium 5.1(H) 3.5 - 5.0 mmol/L [facility] Comment: Please note: ??Patients with WBC >100,000 may have falsely elevated Potassium levels. ??For accurate Potassium quantification in these patients send serum separator tube (gold top) for subsequent determinations. ??Contact the Clinical Chemistry Laboratory if there are any questions. Chloride 101 98 - 107 mmol/L [facility] Carbon Dioxide 23 22 - 31 mmol/L [facility] Anion Gap 10 5 - 15 mmol/L [facility] Calcium 9.2 8.5 - 10.5 mg/dL [facility] Protein, Total 7.7 6.1 - 8.0 g/dL [facility] Albumin 3.5 3.2 - 5.2 g/dL [facility] Aspartate Aminotransferase 26 0 - 39 unit/L [facility] Alanine Aminotransferase 26 0 - 55 unit/L [facility] Alkaline Phosphatase 92 40 - 130 unit/L [facility] Bilirubin, Total 0.2 0.2 - 1.3 mg/dL [facility] Est Glomerular Filtration Rate 34(L) >=60 mL/min/1. 73 m?? [facility] Comment: This patient's estimated GFR was [...] Byrne MD CHEMISTRY ORDERABLES Performing Organization Address City/State/[facility] Co de Phone Number [facility] [place] [address] * (ABNORMAL) PSA (Ultrasensitive) (12/27/2022 11:57 AM EDT) Prostate Specific Antigen (Ultrasensitive) 38.10(H) 0.00 - 4.00 ng/mL [facility] Comment: PLEASE NOTE: The above reference [...] In Lab Nabor Byrne MD CHEMISTRY ORDERABLES [facility] [place] [address] * (ABNORMAL) Testosterone, total (12/27/2022 11:57 AM EDT) Testosterone <0.12(L) 1.93 - 7.40 ng/mL [facility] Comment: Pediatric Reference Ranges: ? Males [...] Stated reference ranges derived from review of Nory Nunu Testosterone II 01/2022, v2.0 Blood 12/27/2022 11:5 7 AM EDT 12/27/2022 12:01 PM EDT Narrative Resulting Agency Comment Spec In Lab Nabor Byrne MD CHEMISTRY ORDERABLES Performing Organization Address City/State/[facility] Co de Phone Number [facility] [place] [address] documented in this encounter Visit Diagnoses Diagnosis Malignant neoplasm of prostate metastatic to bone Malignant neoplasm of prostate documented in this encounter Care Teams Concaver Relationship Specialty Start Date End Date Nicolasa Valenzuela PA [address] [place] [address] PCP - General Family Medicine 12/20/21 documented as of this encounter
--- OUTSIDE RECORDS SUMMARY | 2023-10-16 03:16 | XMS_ITS | Encounter Summary ---
Author Organization [facility] [place] [address] Care Team Providers Care Aggregate Conveyor Operator Name Role Phone Nicolasa Valenzuela Primary Care Pro vider Encounter Details Date Type Department Care Team (Latest Contact Info) Description 10/03/2022 Travel Social History Tobacco Use Types Packs/Day [...] Office Visit Hematology/Oncology at [address] [phone] Fiordaliza Downing APRN [facility] DR [place]ICAL [place] [address] 11/10/2023 9:00 AM EDT Appointment [place] [phone] Thomas Curtis MD [facility] DR HEMATOLOGY [place] [address] 11/21/2023 11:00 AM EDT Infusion Hematology Oncology at [address] [phone] 12/05/2023 1:30 PM EDT Office Visit Hematology/Oncology at [address] [phone] Thomas Curtis MD [facility] HEMATOLOGY [place] [address] Fiordaliza Downing APRN [facility] [place]ICAL [place] [address] 12/26/2023 9:00 AM EDT Appointment [place] [phone] Thomas Curtis MD [facility] HEMATOLOGY [place] [address] 02/09/2024 8:00 AM EST Appointment [place] [phone] Thomas Curtis MD [facility] HEMATOLOGY [place] [address] 03/18/2024 3:00 PM EST Office Visit Cardiology at [address] [place] [phone] Sameer Rudolph MD [facility] [place] [address] 03/22/2024 9:00 AM EST Appointment [place] [phone] Thomas Curtis MD [facility] HEMATOLOGY [place] [address] 08/23/2024 Hospital Encounter [place] [phone] True Juarez MD [facility] [place] [address] Scheduled Procedures Name Priority Associated Diagnoses Date/Ti me CYSTO, STENT PLACEMENT (WRVU 2.82) Hydronephrosis with ureteral stricture, not elsewhere classified CYSTO, REMOVAL OF STENT, FOR EIGN BODY OR CALCULUS, SIMPLE (WRVU 2.81) Hydronephrosis with ureteral stricture, not elsewhere classified documented as of this encounter Visit Diagnoses Not on filedocumented in this encounter Care Teams Aggregate Conveyor Operator Relationship Specialty Start Date End Date Nicolasa Valenzuela PA [address] [place] [address] PCP - General Family Medicine 12/20/21 documented as of this encounter
--- OUTSIDE RECORDS SUMMARY | 2023-10-16 03:16 | XMS_ITS | Encounter Summary ---
Author Organization [facility] [place] [address] Care Team Providers Care Automobile Upholstery Trim Installer Name Role Phone Nicolsaa Hagen Primary Care Pro vider Encounter Details Date Type Department Care Team (Late st Contact Info) Description 10/05/[address] [place] [phone] Maria Ines Vivar CCMA Hyperuricemia Social History Tobacco Use Types Packs/Day Years [...] encounter Miscellaneous Notes * Telephone Encounter - Maria Ines Vivar CCMA - 10/05/2022 7:14 AM EDT Copied from [facility] #[id number]. Topic: Pharmacy Call - RX Issues >> Oct 04, 2022 3:52 PM Sammie Christensen wrote: Rx Issues PCP: NICOLASA HAGEN Reason for Call: 200mg is not covered by insurance. Requesting to change to 100mg, and double the dispense quantity, and take 2 a day. Which is covered. Name of Medication: allopurinoL (Zyloprim) 200 mg tablet Name of Prescriber: RayNimisha mendoza MD Name of Pharmacy: [facility] Address for Pharmacy: [address] [place] [address]/[facility] State for Pharmacy: [place] Is the Patient Currently at the Pharmacy: no documented in this encounter Plan of Treatment Upcoming Encounters Date Type Department Care Team (Late st Contact Info) Description 10/16/2023 2:30 PM EDT Office Visit Hematology/Oncology at [address] [phone] Fiordaliza Downing APRN [facility] [place] [address] 11/10/2023 9:00 AM EDT Appointment [place] [address] Thomas Curtis MD [facility] [place] [address] 11/21/2023 11:00 AM EDT Infusion Hematology Oncology at [address] [phone] 12/05/2023 1:30 PM EDT Office Visit Hematology/Oncology at [address] [phone] Thomas Curtis MD [facility] [place] [address] Fiordaliza Downing APRN [facility] [place] [address] 12/26/2023 9:00 AM EDT Appointment [place] [address] Thomas Curtis MD [facility] [place] [address] 02/09/2024 8:00 AM EST Appointment Nuclear Medicine at [place] [phone] Thomas Curtis MD [facility] [place] [address] 03/18/2024 3:00 PM EST Office Visit Cardiology at [address] [place] [phone] Sameer Rudolph MD [facility] [place] [address] 03/22/2024 9:00 AM EST Appointment [place] [phone] Thomas Curtis MD [facility] DR [place] [address] 08/23/2024 Hospital Encounter [place] [phone] True Juarez MD [facility] [place] [address] Scheduled Procedures Name Priority Associated Diagnoses Date/Ti me CYSTO, STENT PLACEMENT (WRVU 2.82) Hydronephrosis with ureteral stricture, not elsewhere classified CYSTO, REMOVAL OF STENT, FOR EIGN BODY OR CALCULUS, SIMPLE (WRVU 2.81) Hydronephrosis with ureteral stricture, not elsewhere classified documented as of this encounter Visit Diagnoses Diagnosis Hyperuricemia Other abnormal blood chemistry documented in this encounter Care Teams Automobile Upholstery Trim Installer Relationship Specialty Start Date End Date Nicolasa Hagen PA [address] [place] [address] PCP - General Family Medicine 12/20/21 documented as of this encounter
--- OUTSIDE RECORDS SUMMARY | 2023-10-16 03:16 | XMS_ITS | Encounter Summary ---
Author Organization [facility] Address [facility] [place] [address] Care Team Providers Care Spiritual Advisor Name Role Phone Nicolasa Valenzuela Primary Care Pro vider Reason for Referral * Diagnostic Test (Routine) - Closed Specialty Diagnoses / Procedures Referred By Conttrinity t Referred To Contact Radiology Diagnoses Malignant neoplasm of prostate Procedures NM PET CT Skull Base to Mid-thigh Evangelist Castañeda MD [facility] [place] [address] [place] [address] Referral ID Status Reason Start Date Expiration Date V isits Requested Visits Authorized [id number] Closed Specialty Service Requested 10/08/2022 04/10/2024 1 1 Reason for Visit * Diagnostic Test (Routine) - Closed Specialty Diagnoses / Procedures Referred By Contac t Referred To Contact Radiology Diagnoses Malignant neoplasm of prostate Procedures NM PET CT Skull Base to Mid-thigh Evangelist Castañeda MD [facility] [place] [address] [place] [address] Referral ID Status Reason Start Date Expiration Date V isits Requested Visits Authorized [id number] Closed Specialty Service Requested 10/08/2022 04/10/2024 1 1 Encounter Details Date Type Department Care Team (Latest Contact Info) Description 10/31/2022 8:51 AM EDT Hospital Encounter Nuclear Medicine at [facility] [place] [address] Evangelist Castañeda MD [facility] [address] Malignant neoplasm of prostate Discharge Disposition: Home Social History [...] slept in a custodial (including now)? No 10/31/2022 Sex and Gender Information Value Date Recorded Sex Assigned at Not on file Gender Identity Not on file Sexual Orientation Not on file documented as of this encounter Medications at Time of Discharge Medication Sig Dispensed Refills Start Date End Date atorvastatin (Lipitor) 40 mg tablet Take 1 [...] mouth daily. 60 tablet 5 11/04/2022 11/10/2022 bicalutamide (Casodex) 50 mg tablet Take 1 tablet by mouth daily. 20 tablet 3 10/08/2022 01/31/2023 allopurinoL (Zyloprim) 100 mg tabletIndications:Hy peruricemia Take 1 tablet by mouth 2 times daily. 60 tablet 3 10/05/2022 11/10/2022 Synthroid 137 mcg Tablet Take 137 mcg by mouth daily. 08/31/2021 11/10/2022 documented as of this encounter Plan of Treatment Upcoming Encounters Date Type Department Care Team (Late st Contact Info) Description 10/16/2023 2:30 PM EDT Office Visit Hematology/Oncology at [address] [phone] Fiordaliza Downing APRN [facility] [place] [address] 11/10/2023 9:00 AM EDT Appointment [place] [address] Thomas Curtis MD [facility] [place] [address] 11/21/2023 11:00 AM EDT Infusion Hematology Oncology at [address] [phone] 12/05/2023 1:30 PM EDT Office Visit Hematology/Oncology at [address] [phone] Thomas Curtis MD [facility] [place] [address] Fiordaliza Downing APRN [facility] [place] [address] 12/26/2023 9:00 AM EDT Appointment [place] [phone] Thomas Curtis MD [facility] [place] [address] 02/09/2024 8:00 AM EST Appointment [place] [phone] Thomas Crutis MD [facility] [place] [address] 03/18/2024 3:00 PM EST Office Visit Cardiology at [address] [phone] Sameer Rudolph MD [facility] [place] [address] 03/22/2024 9:00 AM EST Appointment [place] [address] Thomas Curtis MD [facility] [place] [address] 08/23/2024 Hospital Encounter [place] [address] True Juarez MD [facility] [place] [address] Scheduled Procedures Name Priority Associated Diagnoses Date/Ti me CYSTO, STENT PLACEMENT (WRVU 2.82) Hydronephrosis with ureteral stricture, not elsewhere classified CYSTO, REMOVAL OF STENT, FOR EIGN BODY OR CALCULUS, SIMPLE (WRVU 2.81) Hydronephrosis with ureteral stricture, not elsewhere classified documented as of this encounter Procedures Procedure Name Priority Date/Time Associated Diagnosis Comments NM PET CT SKULL BASE TO MID-THIGH ([facility]) Routine 10/31/2022 10:43 AM EDT Malignant neoplasm of prostate documented in this encounter Results * NM [...] who have questions please contact the health neonatal intensive care nurse that requested your imaging first. ? Narrative 10/31/2022 11:23 AM EDT EXAMINATION: NM PET CT STANDARD SKULL BASE TO MID-THIGH CLINICAL HISTORY: Prostate cancer, staging TECHNIQUE: Following IV injection of 76-acaiqj-1-deoxyglucose (FDG) a standard uptake of approximately 60 [...] cancer, staging TECHNIQUE: Following IV injection of 59-squile-6-deoxyglucose (FDG) astandard uptake of approximately 60 minutes, [...] patients who have questions please contactthe health neonatal intensive care nurse that requested your imaging first. Evangelist Castañeda MD IMG PET ORDERABLES documented in this encounter Visit Diagnoses Diagnosis Malignant neoplasm of prostate documented in this encounter Administered Medications Inactive Administered Medications - up to 3 most recent administrations Medication Order MAR Action Action Date Dose Rate Site fludeoxyglucose (F-18) FDG injection 0-20 mCi 0-20 mCi, Intravenous, ONCE PRN, 1 dose, Starting on Mon10/31/22 at 0934, Until Mon10/31/22 at 0928, Per Protocol, Radiology Contrast, Routine Given 10/31/2022 9:28 AM EDT 13.2 mCi Right Arm documented in this encounter Care Teams Spiritual Advisor Relationship Specialty Start Date End Date Nicolasa Valenzuela PA [address] [place] [address] PCP - General Family Medicine 12/20/21 documented as of this encounter
--- OUTSIDE RECORDS SUMMARY | 2023-10-16 03:16 | XMS_ITS | Encounter Summary ---
Author Organization [facility] [place] [address] Care Team Providers Care Apartment Maintenance Supervisor Name Role Phone Nicolasa Valenzuela Primary Care Pro vider Reason for Visit * Diagnostic Test (Routine) - Closed Specialty Diagnoses / Procedures Referred By Toño mayorga Referred To Contact Radiology Diagnoses Malignant neoplasm of prostate Procedures NM PET CT Skull Base to Mid-thigh Evangelist Castañeda MD [facility] [place] [address] [place] [address] Referral ID Status Reason Start Date Expiration Date V isits Requested Visits Authorized [id number] Closed Specialty Service Requested 10/08/2022 04/10/2024 1 1 Encounter Details Date Type Department Care Team (Latest Contact Info) Description 10/31/2022 8:51 AM EDT - 10/31/2022 3:14 PM EDT Hospital Encounter [place] [address] Evangelist Castañeda MD [facility] [place] [address] Discharge Disposition: Home Social History [...] Refills Start Date End Date HYDROcodone-acetamin ophen ([place]) 5-325 mg tablet Take 1 tablet by [...] PM EDT Office Visit Hematology/Oncology at [address] [phone] Fiordaliza Downing APRN [facility] [place] [address] 11/10/2023 9:00 AM EDT Appointment [place] [address] Thomas Curtis MD [facility] HEMATOLOGY [place] [address] 11/21/2023 11:00 AM EDT Infusion Hematology Oncology at [address] [phone] 12/05/2023 1:30 PM EDT Office Visit Hematology/Oncology at [address] [phone] Thomas Curtis MD [facility] HEMATOLOGY [place] [address] Fiordaliza Downing APRN [facility] [place] [address] 12/26/2023 9:00 AM EDT Appointment [place] [phone] Thomas Curtis MD [facility] HEMATOLOGY [place] [address] 02/09/2024 8:00 AM EST Appointment [place] [phone] Thomas Curtis MD [facility] HEMATOLOGY [place] [address] 03/18/2024 3:00 PM EST Office Visit Cardiology at [address] [phone] Sameer Rudolph MD [facility] [place] [address] 03/22/2024 9:00 AM EST Appointment [place] [phone] Thomas Curtis MD [facility] HEMATOLOGY [place] [address] 08/23/2024 Hospital Encounter [place] [phone] True Juarez MD [facility] [place] [address] Scheduled Procedures Name Priority Associated Diagnoses Date/Ti [...] 10:43 AM EDT Malignant neoplasm of prostate POCT GLUCOSE Routine 10/31/2022 9:21 AM EDT documented in this encounter Results * POCT Glucose (10/31/2022 9:21 AM EDT) Glucose, POC 122 65 - 199 mg/dL [facility] Comment: Supplemental ranges: <140 mg/dL before meals <180 mg/dL all other times of the day Blood 10/31/2022 9:21 AM EDT 10/31/2022 9:21 AM EDT Evangelist Castañeda MD POINT OF CARE TEST O RDERABLES Performing Organization Address City/State/[facility] Co de Phone Number [facility] [place] [address] documented in this encounter Visit Diagnoses Not on filedocumented in this encounter Care Teams Apartment Maintenance Supervisor Relationship Specialty Start Date End Date Nicolasa Valenzuela PA [address] [place] [address] PCP - General Family Medicine 12/20/21 documented as of this encounter
--- OUTSIDE RECORDS SUMMARY | 2023-10-16 03:16 | XMS_ITS | Encounter Summary ---
Author Organization [facility] [place] [address] Care Team Providers Care Job Site Superintendent Name Role Phone Nicolasa Valenzuela Primary Care Pro vider Reason for Visit * Reason Onset Date Comments Chemotherapy Teaching 11/17/2022 Encounter Details Date Type Department Care Team (Late st Contact Info) Description 11/17/2022 Telephone Hematology and Oncology at [facility] [place] [phone] Inna Sutherland, PREVENTION SPECIALIST ROOM Chemotherapy Teaching Social History Tobacco Use Types Packs/Day Years [...] slept in a longterm (including now)? No 10/31/2022 Sex and Gender Information Value Date Recorded Sex Assigned at Not on file Gender Identity Not on file Sexual Orientation Not on file documented as of this encounter Miscellaneous Notes * Telephone Encounter - Inna Sutherland RN - 11/17/2022 12:02 PM EDT Oral Chemotherapy Follow-up Note 11/17/2022 Huber Keys, 1955 Assessment of self-administration of oral chemotherapy is performed via phone call with patient. The patient filled the prescription at [facility] and began taking this medication on 11/17 (date). read back the name and strength of the oral chemotherapy from the label, including the instructionsfor use as follows: Abiraterone 1000mg ( #2-500mg) and prednisone 5mg was able to repeat directions for use in his/her own words and demonstrated understanding of the regimen, including safe handling of oral chemotherapy and its side effects. did not have further questions or problems regarding the oral chemotherapy. does not require further assistance in order to comply with oral chemotherapy. was reminded to call the oncology clinic with any concerns or questions 24 hours a day / 7 days a week and contact information was reviewed. documented in this encounter Plan of Treatment Upcoming Encounters Date Type Department Care Team (Late st Contact Info) Description 10/16/2023 2:30 PM EDT Office Visit Hematology/Oncology at [address] [phone] Fiordaliza Downing APRN [facility] [place] [address] 11/10/2023 9:00 AM EDT Appointment [place] [address] Thomas Curtis MD [facility] [place]ATOLOG[place] [address] 11/21/2023 11:00 AM EDT Infusion Hematology Oncology at [address] [phone] 12/05/2023 1:30 PM EDT Office Visit Hematology/Oncology at [address] [phone] Thomas Curtis MD [facility] DR HEMATOLOGY [place] [address] Fiordaliza Downing APRN [facility] [place] [address] 12/26/2023 9:00 AM EDT Appointment [place] [address] Thomas Curtis MD [facility] DR HEMATOLOGY [place] [address] 02/09/2024 8:00 AM EST Appointment [place] [address] Thomas Curtis MD [facility] HEMATOLOGY [place] [address] 03/18/2024 3:00 PM EST Office Visit Cardiology at [address] [place] [phone] Sameer Rudolph MD [facility] [place] [address] 03/22/2024 9:00 AM EST Appointment Nuclear Medicine at [place] [phone] Thomas Curtis MD [facility] HEMATOLOGY AND ONCOLOGY [place], [place] [phone] 08/23/2024 Hospital Encounter [place] [phone] True Juarez MD [facility] [place] [address] Scheduled Procedures Name Priority Associated Diagnoses Date/Ti me CYSTO, STENT PLACEMENT (WRVU 2.82) Hydronephrosis with ureteral stricture, not elsewhere classified CYSTO, REMOVAL OF STENT, FOR EIGN BODY OR CALCULUS, SIMPLE (WRVU 2.81) Hydronephrosis with ureteral stricture, not elsewhere classified documented as of this encounter Visit Diagnoses Not on filedocumented in this encounter Care Teams Job Site Superintendent Relationship Specialty Start Date End Date Nicolasa Valenzuela PA [address] [place] [address] PCP - General Family Medicine 12/20/21 documented as of this encounter
--- OUTSIDE RECORDS SUMMARY | 2023-10-16 03:16 | XMS_ITS | Encounter Summary ---
Author Organization [facility] [place] [address] Care Team Providers Care Powder Truck Driver Name Role Phone Nicolasa Valenzuela Primary Care Pro vider Encounter Details Date Type Department Care Team (Late Contact Info) Description 10/21/2022 Abstract Cardiology at [address] [place] [phone] oRxi Burleson, RN Adenocarcinoma of prostate; Acute HFrEF (heart failure with reduced ejection fraction) Social History Tobacco Use Types Packs/Day Years [...] 2:30 PM EDT Office Visit Hematology/Oncology at [address] [phone] Fiordaliza Downing APRN [facility] [place] [address] 11/10/2023 9:00 AM EDT Appointment [place] [phone] Thomas Curtis MD [facility] [place] [address] 11/21/2023 11:00 AM EDT Infusion Hematology Oncology at [address] [phone] 12/05/2023 1:30 PM EDT Office Visit Hematology/Oncology at [address] [phone] Thomas Curtis MD [facility] DR [place] [address] Fiordaliza Downing APRN [facility] [place] [address] 12/26/2023 9:00 AM EDT Appointment [place] [phone] Thomas Curtis MD [facility] [place] [address] 02/09/2024 8:00 AM EST Appointment [place] [address] Thomas Curtis MD [facility] [place] [address] 03/18/2024 3:00 PM EST Office Visit Cardiology at [address] [place] [place] [phone] Sameer Rudolph MD [facility] [place] [address] 03/22/2024 9:00 AM EST Appointment [place] [phone] Thomas Curtis MD [facility] [place] [address] 08/23/2024 Hospital Encounter [place] [phone] True Juarez MD [facility] [address] Scheduled Procedures Name Priority Associated Diagnoses Date/Ti me CYSTO, STENT PLACEMENT (WRVU 2.82) Hydronephrosis with ureteral stricture, not elsewhere classified CYSTO, REMOVAL OF STENT, FOR EIGN BODY OR CALCULUS, SIMPLE (WRVU 2.81) Hydronephrosis with ureteral stricture, not elsewhere classified documented as of this encounter Visit Diagnoses Diagnosis Adenocarcinoma of prostate Malignant neoplasm of prostate Acute HFrEF (heart failure with reduced ejection fraction) documented in this encounter Care Teams Powder Truck Driver Relationship Specialty Start Date End Date Nicolasa Valenzuela PA [address] [place] [address] PCP - General Family Medicine 12/20/21 documented as of this encounter
--- OUTSIDE RECORDS SUMMARY | 2023-10-16 03:16 | XMS_ITS | Encounter Summary ---
Author Organization [facility] Address [facility] [place] [address] Care Team Providers Care Entry Level Management Name Role Phone Nicolasa Valenzuela Primary Care Pro vider Encounter Details Date Type Department Care Team (Late st Contact Info) Description 12/20/2022 Ancillary Procedure Radiology Library [place] [facility] [place] [address] Nicolasa Valenzuela PA [address] [place] [address] Social History Tobacco Use Types Packs/Day Years [...] in a skilled nursing (including now)? No 10/31/2022 Sex and Gender Information Value Date Recorded Sex Assigned at Not on file Gender Identity Not on file Sexual Orientation Not on file documented as of this encounter Plan of Treatment Upcoming Encounters Date Type Department Care Team (Late st Contact Info) Description 10/16/2023 2:30 PM EDT Office Visit Hematology/Oncology at [address] [phone] Fiordaliza Downing APRN [facility] [place]ICAL [place] [address] 11/10/2023 9:00 AM EDT Appointment [place] [address] Thomas Curtis MD [facility] HEMATOLOGY [place] [address] 11/21/2023 11:00 AM EDT Infusion Hematology Oncology at [address] [phone] 12/05/2023 1:30 PM EDT Office Visit Hematology/Oncology at [address] [phone] Thomas Curtis MD [facility] HEMATOLOGY [place] [address] Fiordaliza Downing APRN [facility] DR [place]ICAL [place] [address] 12/26/2023 9:00 AM EDT Appointment [place] [phone] Thomas Curtis MD [facility] HEMATOLOGY [place] [address] 02/09/2024 8:00 AM EST Appointment [place] [phone] Thomas Curtis MD [facility] HEMATOLOGY [place] [address] 03/18/2024 3:00 PM EST Office Visit Cardiology at [address] [phone] Sameer Rudolph MD [facility] [place] [address] 03/22/2024 9:00 AM EST Appointment [place] [phone] Thomas Curtis MD [facility] HEMATOLOGY [place] [address] 08/23/2024 Hospital Encounter [place] [phone] True Juarez MD [facility] [place] [address] Scheduled Procedures Name Priority Associated Diagnoses Date/Ti me CYSTO, STENT PLACEMENT (WRVU 2.82) Hydronephrosis with ureteral stricture, not elsewhere classified CYSTO, REMOVAL OF STENT, FOR EIGN BODY OR CALCULUS, SIMPLE (WRVU 2.81) Hydronephrosis with ureteral stricture, not elsewhere classified documented as of this encounter Procedures Procedure Name Priority Date/Time Associated Diagnosis Comments FILM LIBRARY STORAGE ONLY CT CHEST ABDOMEN PELVIS Routine 12/20/2022 12:00 AM EDT documented in this encounter Results * Film Library- Storage Only CT Chest Abdomen Pelvis (12/20/2022 12:00 AM EDT) Narrative [facility] - 02/08/2023 11:16 AM EST This exam is auto-finalizing. It's purpose is for storage only. Nicolasa MOLINA IMIsadora FILM LIBRARY ORDERABLES Performing Organization Address City/State/[facility] Co de Phone Number [place], [place] documented in this encounter Visit Diagnoses Not on filedocumented in this encounter Care Teams Entry Level Management Relationship Specialty Start Date End Date Nicolasa Valenzuela PA [address] [place] [address] PCP - General Family Medicine 12/20/21 documented as of this encounter
--- OUTSIDE RECORDS SUMMARY | 2023-10-16 03:17 | XMS_ITS | Encounter Summary ---
Author Organization [facility] [place] [address] Care Team Providers Care Parts Product Analyst Name Role Phone Nicolasa Valenzuela Primary Care Pro vider Reason for Visit * Auth/Cert (Routine) Specialty Diagnoses / Procedures Referred By Toño mayorga Referred To Contact Diagnoses WALTER (acute kidney injury) Daniel Ortiz MD [facility] [place] [address] [facility] Referral ID Status Reason Start Date Expiration Date Visits Re quested Visits Authorized [id number] 1 1 Encounter Details Date Type Department Care Team (Late st Contact Info) Description 09/29/2022 9:32 PM EDT Anesthesia Event [place] [phone] Charles Zelaya MD [facility] [place] [address] Enmanuel Escobar MD [facility] [place]IOLOG[place] [address] Anesthesia Record Procedure Summary Procedure Name Responsible Anesthesiologist Anesthesia Start Time Anesthesia Stop Time CYSTO, STENT PLACEMENT (WRVU 2.82) (Bilateral: Ureter) Charles Zelaya MD 09/29/22213109/29/22 225 Events Date Time Event Comment 09/29/20221931 AN Verify 2131 Start 2131 An Start Data 2141 An Induction 2143 An Intubation 2146 Anesthesia Ready 2233 Extubation/LMA Out 2240 an stop data 2247 Recovery or ICU Handoff Kate ent care was transferred to the destination unit staff after review of the patient's medical history, current anesthetic/surgical status and plan, according to the Provider Handoff Checklist. 2249 Stop Meds Name Total fentaNYL 100 mcg IV Lidocaine 50 mg Propofol 200 mg Rocuronium 50 mg PHENYLephrine 600 mcg ePHEDrine 15 mg Ciprofloxacin 400 mg Dexmedetomidine 20 mcg PHENYLephrine INF 1,460 mcg Sugammadex 200 mg ondansetron (pf) (Zofran) (2 mg/mL) inje ction 4 mg 8 mg Lactated Ringers 400 mL * Agents Name O2 * Blood No blood administrations on file. Lines, Drains, and Airways Type Details Placement Removal (RETIRED) Peripheral IV Line - Single Lumen 09/28/22; 1724; median cubital vein (antecubital fossa), left; ducd-old-tebena catheter system; 20 gauge; other (see comments) (Catheter leaking from site when flushing); 10/03/22; 1021 09/28/22 1724 by Josefina Shaffer RN 10/03/22 1021 by Brisa Steven RN (RETIRED) Peripheral IV Line - Single Lumen 09/29/22; 0156; basilic vein (medial side of arm), right; hgmb-vvf-dpochc catheter system; Ultrasound Guidance; Yes - US guidance used but Image NOT saved; 24 gauge, 1 in length, 1/4 in length; nasrin angel vas; distraction, tolerated well, appears comfortable; 0; Undocumented removal prior to admission; 04/13/23; 1807 09/29/22 0156 by Nasrin Magana RN 04/13/231806 by Demetrius Begum RN ETT ETT Type: Cuffed, Or al; ETT Size: 8 mm; Mac Blade: 4; Attempts: 1; Laryngoscopy Grade: 1; ETT Placement Verified By: Auscultation, Capnometry, Visual; Inserted by: MD Janette; Removal Date: 09/29/22; Removal Time: 223309/29/222143 by Real Savage MD 09/29/222233 by Real Savage MD Urethral Catheter 09/29/22; 2233; Urologic surgery; indwelling double lumen catheter; 14; inserted at this facility (inserted in the OR by resident); 10/01/22; 1300 09/29/222233 by Carmita Chahal RN 10/01/22 1300 by Estefany Lawler RN documented in this encounter Social History Tobacco [...] OR Notes * Anesthesia Postprocedure Evaluation - Real Savage MD - 09/29/2022 10:50 PM EDT Department of Anesthesiology Post-procedure Note Patient: Huber Keys Procedure Summary Date: 09/29/22 Room / Location: [address] MAIN OR Anesthesia Start: 2131 Anesthesia Stop: 2249 Procedure: CYSTO, STENT PLACEMENT (WRVU 2.82) (Bilateral: Ureter) Diagnosis: (Bilateral ureteral obstruction) Surgeons: Evangelist Castañeda MD Responsible Provider: Charles Zelaya MD Anesthesia Type: general ASA Status: 3 All Anesthesia Providers: Anesthesiologist: Charles Zelaya MD Extrusion Bender: Real Savage MD Vitals Value Taken Time BP 94/52 09/29/222246 Temp Pulse 78 09/29/222248 Resp 17 09/29/222248 SpO2 98 % 09/29/222248 Pain Level Vitals shown include unvalidated device data. Patient Location: PACU/[facility] Level of Consciousness: Conscious but Sleepy Pain Management: Satisfactory Analgesia PONV: None Cardiovascular Status: At Baseline and Hemodynamically Stable Respiratory Status: Stable Respiratory Status and Supplemental O2 (NC or FM) Postoperative Fluid Status: Intravascular EUvolemia Possible Anesthetic Complications: NONE apparent at time of evaluation Final Primary Anesthesia Type: General (The anesthetic type performed was the same as planned.) Comments: Real Savage MD * Anesthesia Preprocedure Evaluation - Enmanuel Escobar MD - 09/29/2022 7:23 PM EDT Pre-Anesthesia Evaluation for: Huber Keys a 67 y.o. male. Procedure(s): CYSTO, STENT PLACEMENT (WRVU 2.82) Patient Active Problem List Diagnosis Date Noted ??? *WALTER (acute kidney injury) 2022 ??? Status post cervical spinal fusion 03/17/2022 Past Medical History: Diagnosis Date ??? Diabetes ??? High blood pressure ??? Hypothyroid Past Surgical History: Procedure Laterality Date ??? CATARACT REMOVAL WITH IMPLANT 2019 ??? HAND SURGERY Left 1997 Left thumb repair surgery ??? INGUINAL HERNIA REPAIR 1954 as an infant ??? PRO ALLOGRAFT FOR SPINE SURGERY ONLY MORSELIZED Bilateral 03/17/2022 ALLOGRAFT FOR SPINE SURGERY ONLY; MORSELIZED (WRVU *) performed by Bebe Hatfield MD at [facility] MAIN OR ??? PRO ARTHRD ANT INTERDY CERVCL BELW C2 EA ADDL NTRSPC Bilateral 03/17/2022 ARTHRODESIS ANT INTERBDY CERVCL BELOW C2 EA ADDL INTRSPACE (WRVU 6.5) performed by Bebe Hatfield MD at [facility] MAIN OR ??? PRO ARTHRODESIS, ANT INTERBODY,DECOMPRESSION; CERVICAL BELOW C2 Bilateral 03/17/2022 ARTHRODESIS, ANT INTERBODY,DECOMPRESSION; CERVICAL BELOW C2 (WRVU 25) performed by Bebe Hatfield MD at [facility] MAIN OR ??? PRO INSERT BIOMCHN DEV INTERVERTEBRAL DSC SPC W/ARTHRD Bilateral 03/17/2022 INSERTION INTERBODY BIOMECH DEV TO INTERVEBRAL DISC SPACE, EA INTERSPACE (WRVU 4.25) performed by Bebe Hatfield MD at [facility] MAIN OR ??? US GUIDED BIOPSY PROSTATE WITH URONAV FUSION 12/20/2021 US Guided Biopsy Prostate with Uronav Fusion 12/20/2021 [facility] RAD ULTRASOUND Social History Tobacco Use ??? Smoking status: Never ??? Smokeless tobacco: Never Substance Use Topics ??? Alcohol use: Not Currently Social History Substance and Sexual Activity Drug Use Not Currently Allergies Allergen Reactions ??? Amoxicillin Rash ??? Penicillin Other reaction(s): Unknown Medications: MAR and/or home medications have been reviewed. Physical Exam: Preprocedure Vitals Current as of 09/29/221922 BP: 120/63 Pulse: Resp: SpO2: 98 Temp: 36.9 ??C (98.4 ??F) Height: 180.3 cm (5' 11) (09/29/22) Weight: 87.8 kg (193 lb 8 oz) (09/29/22) BMI: 26.98 IBW: 75.3 kg (165 lb 14.8 oz) Last edited 09/29/22 1610 by PS Airway Assessment: Mallampati: II TM distance: >3 FB Neck ROM: full Cardiovascular Assessment: system normal Pulmonary Assessment: unlabored breathing pulmonary exam normal Dental Assessment: Misc Assessment: Patient is wearing No contact(s). IV access: Peripheral line Last Filed Perioperative Cognitive Screening Value Time User MiniCOG Total Score: 5 03/17/2022 6:39 AM Milla Harris RN Anesthesia Plan: ASA 3 general, with a(n) intravenous induction 67 yo m with obstructive uropathy 2/2 retroperitoneal lymphadenopathy going for cysto and bilateralstent placement. WALTER. 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 PMH otherwise notable for T2DM, HLD, hypothyroidism, elevated PSA w/ negative biopsy, hx cervical decompression in March 2022 No problems with prior anesthetics. NPO appropriate. Plan [place] - Other Informed Consent: Anesthetic plan and risks discussed with patient. Anesthesia Screening documented in this encounter Plan of Treatment Upcoming Encounters Date Type Department Care Team (Late st Contact Info) Description 10/16/2023 2:30 PM EDT Office Visit Hematology/Oncology at [address] [phone] Fiordaliza Downing APRN [facility] DR [place] [address] 11/10/2023 9:00 AM EDT Appointment [place] [address] Thomas Curtis MD [facility] HEMATOLOGY [place] [address] 11/21/2023 11:00 AM EDT Infusion Hematology Oncology at [address] [phone] 12/05/2023 1:30 PM EDT Office Visit Hematology/Oncology at [address] [phone] Thomas Curtis MD [facility] HEMATOLOGY [place] [address] Fiordaliza Downing APRN [facility] [place] [address] 12/26/2023 9:00 AM EDT Appointment [place] [address] Thomas Curtis MD [facility] HEMATOLOGY [place] [address] 02/09/2024 8:00 AM EST Appointment [place] [phone] Thomas Curtis MD [facility] HEMATOLOGY [place] [address] 03/18/2024 3:00 PM EST Office Visit Cardiology at [address] [phone] Sameer Rudolph MD [facility] [place] [address] 03/22/2024 9:00 AM EST Appointment Nuclear Medicine at [place] [phone] Thomas Curtis MD [facility] HEMATOLOGY [place] [address] 08/23/2024 Hospital Encounter [place] [phone] True Juarez MD [facility] [place] [address] Scheduled Procedures Name Priority Associated Diagnoses Date/Ti [...] mg in dextrose 5% 200 mL infusion Intravenous, PRN, Starting on Emely 09/29/22 at 2153, Until Emely 09/29/22 at 2250, Administer over 60 Minutes, Anesthesia Intra-op Given 09/29/2022 9:53 PM EDT 400 mg dexmedeTOMIDine (Precedex) (4 mcg/mL) bolus injection (Anesthsia) Intravenous, PRN, Starting on Emely 09/29/22 at 2207, Until Emely 09/29/22 at 2250, Anesthesia Intra-op, Routine Given 09/29/2022 10:07 PM EDT 20 mcg ePHEDrine sulfate (5 mg/mL) multi-dose injection Intravenous, PRN, Starting on Emely 09/29/22 at 2151, Until Emely 09/29/22 at 2250, Anesthesia Intra-op, Routine Given 09/29/2022 9:56 PM EDT 10 mg Given 09/29/2022 9:51 PM EDT 5 mg fentaNYL (pf) (50 mcg/mL) multi-dose injection Intravenous, PRN, Starting on Emely 09/29/22 at 2136, Until Emely 09/29/22 at 2250, Anesthesia Intra-op, Routine Given 09/29/2022 10:31 PM EDT 25 mcg Given 09/29/2022 10:12 PM EDT 25 mcg Given 09/29/2022 9:36 PM EDT 50 mcg lactated ringers infusion Intravenous, CONTINUOUS PRN, Starting on Emely 09/29/22 at 2132, Until Emely 09/29/22 at 2250, Anesthesia Intra-op New Bag 09/29/2022 9:32 PM EDT lidocaine (pf) (Xylocaine) (20 mg/mL) 2% injection syringe Intravenous, PRN, Starting on Meely 09/29/22 at 2139, Until Emely 09/29/22 at 2250, Anesthesia Intra-op, Routine Given 09/29/2022 9:39 PM EDT 50 mg ondansetron (pf) (Zofran) (2 mg/mL) injection 4 mg 4 mg, Intravenous, EVERY 30 MIN PRN, 2 doses, Starting on Emely 09/29/22 at 2227, Until Mon09/30/22 at 0027, Nausea, Maximum total dose of 8 mg (including OR administration). If multiple antiemetics ordered, use ondansetron first and if ineffective use prochlorperazine or haloperidoL second, PACU Recovery Given 09/29/2022 10:30 PM EDT 8 mg PHENYLephrine (Manan-Synephrine) (80 mcg/mL) in sodium chloride 0.9% 250 mL infusion Intravenous, CONTINUOUS PRN, Starting on Emely 09/29/22 at 2219, Until Emely 09/29/22 at 2250, Anesthesia Intra-op, Routine Rate/Dose Change 09/29/2022 10:28 PM EDT 50 mcg/min 37.5 mL/hr New Bag 09/29/2022 10:19 PM EDT 40 mcg/min 30 mL/hr PHENYLephrine in NS (PF) (MANAN-SYNEPHRINE) 0.8 mg/10 mL (80 mcg/mL) multi-dose injection Syringe Intravenous, PRN, Starting on Emely 09/29/22 at 2141, Until Meely 09/29/22 at 2250, Anesthesia Intra-op, Routine Given 09/29/2022 10:17 PM EDT 80 mcg Given 09/29/2022 10:12 PM EDT 80 mcg Given 09/29/2022 9:56 PM EDT 160 mcg propofoL (Diprivan) 10 mg/mL bolus injection (Anesthesia) Intravenous, PRN, Starting on Emely 09/29/22 at 2141, Until Emely 09/29/22 at 2250, Anesthesia Intra-op Given 09/29/2022 9:41 PM EDT 200 mg rocuronium (Zemuron) (10 mg/mL) multi-dose injection Intravenous, PRN, Starting on Emely 09/29/22 at 2141, Until Emely 09/29/22 at 2250, Anesthesia Intra-op, Routine Given 09/29/2022 9:41 PM EDT 50 mg sugammadex (Bridion) 100 mg/mL injection Intravenous, PRN, Starting on Emely 09/29/22 at 2229, Until Emely 09/29/22 at 2250, Anesthesia Intra-op, Routine Given 09/29/2022 10:29 PM EDT 200 mg documented in this encounter Care Teams Parts Product Analyst Relationship Specialty Start Date End Date Nicolasa Valenzuela PA [address] [place] [address] PCP - General Family Medicine 12/20/21 documented as of this encounter
--- OUTSIDE RECORDS SUMMARY | 2023-10-16 03:17 | XMS_ITS | Encounter Summary ---
Author Organization [facility] [address] Care Team Providers Care Pipe Fitter Welding Name Role Phone Victoria Valenzuela Primary Care Pro vider Reason for Visit * Reason Comments Results CT results and kidne y fxn * Auth/Cert (Routine) Specialty Diagnoses / Procedures Referred By Toño mayorga Referred To Contact Diagnoses WALTER (acute kidney injury) [place] [address] [facility] Referral ID Status Reason Start Date Expiration Date Visits Re quested Visits Authorized [id number] 1 1 Encounter Details Date Type Department Care Team (Latest Contact Info) Description 2022 4:57 PM EDT - 10/03/2022 4:05 PM EDT Hospital Encounter Medical Specialties Unit Level 2 [place] [address] Rodney Walker MD [facility] [place] [address] [place] [address] [place] [address] [place] [address] Lymphadenopathy; WALTER (acute kidney injury); Pleural effusion, bilateral; Bacteremia; Right leg swelling Discharge Disposition: Home Social History Tobacco Use [...] Sign Reading Time Taken Comments Blood Pressure 116/73 10/03/2022 11:35 AM EDT Pulse 80 09/30/2022 9:06 AM EDT Temperature 37 ??C (98.6 ??F) 10/03/2022 11:35 AM EDT Respiratory Rate 17 10/03/2022 11:35 AM EDT Oxygen Saturation 100% 10/03/2022 11:35 AM EDT Inhaled Oxygen Concentration - - Weight 87.8 kg (193 lb 8 oz) 10/01/2022 7:15 PM EDT Height 180.3 cm (5' 11) 09/29/2022 12:56 AM EDT Body Mass Index 26.99 09/29/2022 12:56 AM EDT documented in this encounter Discharge Summaries * Diego Lima MD - 10/03/2022 2:05 PM EDT Discharge Summary Patient Name: Huber Mosher Patient Age: 67 y.o. Language: Indonesian Race: White Ethnicity: Not nor Admit date: 2022 Discharge date and time: 10/03/2022 Attending Physician: Sulaiman Medley DO Discharge Physician: Sulaiman Medley DO PCP: JESSE Nesbitt ([phone]) Chief Complaint Patient presents with Results CT results and kidney fxn ID: Huber Mosher is a 67 y.o. male with hx of T2DM, HLD, hypothyroidism, elevated PSA w/ neative biopsy who presents at the instruction of his PCP for imaging findings concerning for hydronephrosis and diffuse retroperitoneal lymphadenopathy, [place] [facility] [place] for a total of 5 days. Recommendations for Providers: - scheduled follow-up with urology on 10/11/2022 -No current indication for Lasix as patient is having postobstructive diuresis. -We will need to follow-up with cardiology later on this is scheduled for 11/10/2022 -Follow-up with hematology/oncology scheduled for 10/20/2022. -You have been scheduled to follow-up with your PCP office 10/10/22 1:00; labs to be drawn and checked a BMP, magnesium and Phos levels. Pending Studies and Lab Data: none Discharge Diagnoses (Hospital Problems) and Secondary Diagnoses (Chronic Problems): Active Hospital Problems Diagnosis WALTER (acute kidney injury) Resolved Hospital Problems No resolved problems to display. Active Non-Hospital Problems Diagnosis Status post cervical spinal fusion History of Presentation (per 2022 Admission H&P): Huber Mosher is a 67 y.o. male with hx of T2DM, HLD, hypothyroidism, elevated PSA w/ neative biopsy who presents at the instruction of his PCP for imaging findings concerning for hydronephrosisand diffuse retroperitoneal lymphadenopathy. He first noticed R leg swelling in the end of August. It was noticed by a family member. It has not been painful but he has noticed some tingling in his RLE. Denies any weakness of R leg, or falls. HisP had been working up his lower extremity swelling. His duplex about 1 week ago was negative. Today he went for CT scan at [place] which showed hydronephrosis and diffuse retroperitoneal lymphadenopathy. He also endorses lower back pain which he thinks is muscloskeletal. He reports ~15 lb weight lost in the past month. He felt like he may have had higher urine output the past month but he is not sure. Denies dysuria, hematuria. Denies fever, chills, night sweats. ED labs significant for hgb 9.6, platelets 507, na 130, K 5.2, creatinine 5.8, uric acid 11.3, phos6.0. CXR showed b/l pleural effusions. Was given 4mg IV morphine by ED. Hospital Course: Huber Mosher was admitted to the Hospital Medicine Service on 2022. The following issueswere addressed and he was discharged on 10/03/2022. 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 Etiology multifactorial with concern for obstruction in setting of the lymphadenopathy and also with metabolic derangements concerning for tumor lysis syndrome and raising concerns for urate nephropathy. Urology was consulted and plan for bilateral ureteric stents following CT findings of bilateral hydroureteronephrosis and retroperitoneal lymphadenopathy. Patient was given rasburicase for hyperuricemia and transition to allopurinol. Lokelma was also added for urine alkalinization. Bilateral ureteral stents were placed on09/29, patient was monitored for post diuresis state and his renal function gradually improved with downtrending creatinine. Retroperitoneal lymph node core needle biopsy was performed on 09/30. Hematology was consulted with regards to concern for malignancy and recommendation pending tissue diagnosis. Nephrology was also consulted for further recommendations regards to his obstructive WALTER, Lokelma was discontinued I recommended avoiding NSAIDs, contrast and nephrotoxins. Upon discharge, his creatininehad down trended to 2.52 from 6.53 on admission. On 10/03, bilateral lower extremity duplex showed no evidence of DVT. With regards to his gammopathy work-up, he had elevated kappa and lambda free light chains and elevated beta-2 microglobulin's. IgG was elevated x2 upper limit normal. Immunofixation electrophoresis still pending to be followed up as outpatient. #lymph node biopsy resulted on 10/04 and consistent with Metastatic carcinoma of prostatic origin. Ptto follow up with Heme-onc. (Addendum as of 10/18/22) #Acute systolic congestive heart failure Baseline TTE was performed on 09/30 that showed significant LV systolic function decline-EF 27% for which cardiology was consulted and x1 dose of 60 mg IV Lasix was given. Patient was started on high-dose statin. And plan is to have patient follow-up as outpatient. Given his resolving WALTER decision made to hold off Beta-blockers, ARB, and other GDMT. Lasix was also held as pt was adequately auto-diuresing. Vitals: Last value Range last 24 hrs Temperature Temp: 37 ??C (98.6 ??F) Temp: [36.3 ??C (97.3 ??F)-37 ??C (98.6 ??F)] Heart Rate Heart Rate: 80 Heart Rate: -- Blood Pressure BP: 116/73 BP: (116-130)/(68-75) Art Line BP BP (Arterial Line): -- MAP (NBP): [87 mmHg-92 mmHg] Respiratory Rate Resp: 17 Resp: [17-22] SpO2 SpO2: 100 % SpO2: [99 %-100 %] Oxygen Delivery Oxygen Therapy O2 Device: None (Room air) O2 Flow Rate (L/min): 2 L/min Reason for Oxygen: Patient currently on room air Physical Exam: General: Awake, alert, no acute distress HEENT: Anicteric, no conjunctival injection CV: RRR, no murmurs/rubs/gallops, 2+ radial/DP pulses Pulm: Normal respiratory effort, CTA with good air entry bilaterally, no rales/rhonchi/wheezes Abdomen: Non-distended, normal active bowel sounds, soft, non-tender, no masses, no guarding Extremities: No lower extremity edema. No clubbing or cyanosis Psych/Neuro: Appropriate affect and cognition AOx3 Skin: Warm, dry, no rashes Procedures: Operations: Procedure(s): CYSTO, STENT PLACEMENT (WRVU 2.82) Important Studies and Lab Data: CBC: Recent Labs 10/01/22 0906 09/30/22 0019 09/29/22 0554 WBC 5.3 5.7 7.4 HGB 9.9* 8.2* 9.5* HCT 31.5* 25.7* 28.9* PLATELET 522* 431* 447* NEUTROABS 3.50 4.44 5.22 Chemistry: Recent Labs 10/03/22 0646 10/02/22 0628 10/01/22 0906 NA 134* 136 134* 135 K 4.2 4.9 4.8 4.7 CL 103 104 103 103 CO2 21* 19* 18* 18* BUN 53* 66* 74* 74* CREATININE 2.52* 3.15* 4.09* 4.12* GLUCOSE 138 148 149 149 ANIONGAP 10 13 13 14 Recent Labs 10/03/22 0646 10/02/22 0628 10/01/22 0906 CALCIUM 8.7 9.0 9.1 9.1 MAGNESIUM 0.67* 0.73 0.79 PHOS 2.6 3.1 4.6* LFT's: Recent Labs 09/30/22 0617 09/29/22 0554 BILITOT 0.4 0.4 BILIDIR 0.1 0.2 ALBUMIN 2.6* 3.0* ALKPHOS 56 58 ALT 11 12 AST 19 21 Coags: Recent Labs 09/30/22 1218 PT 15.4* INR 1.3 PTT 29 Recent Labs 09/30/22 1218 INR 1.3 Cardiac enzymes: No results for input(s): TROPONINT, CK, PROBNP in the last 7068 hours. Endocrine: Recent Labs 09/30/22 0617 TSH 3.16 No results for input(s): HA1C in the last 7068 hours. Lipids: Heme: Recent Labs 10/01/22 0906 09/30/22 1910 09/30/22 1700 09/30/22 1218 LDH 268* 271* Not Perf 275* URICACID 3.4* -- 3.7 4.5 ABG (Arterial Blood Gas): No results found for: PHART, PO2ART, ZCD8BZQ, POB4JHB VBG (Venous Blood Gas): No results for input(s): PHVEN, XGW8JOH, PO2VEN, APH5IGK, BEVEN, WTY1KLN in the last 72 hours. EKG: Lab Results Component Value Date/Time DIAGLINE 09/29/[address] & T wave abnormality, consider lateral ischemia Prolonged QT Abnormal ECG No previous ECGs available Confirmed by fellow Hector Sanders ([id number]) on 10/01/2022 6:26:43 PM Confirmed by MD STEARNS ARMIN ([id number]) on 10/02/2022 11:20:59 PM QTCCALC 461 09/29/2022 0321 Vascular: Lab Results Component Value Date/Time VBTEXTRPT 10/03/2022 0749 Department: Vascular Surgery Lab Patient: [id number] (REKHAHUBER LERNER) CPT: [id number] Referring Physician: SULAIMAN MEDLEY Phone: Indications: R>L LE edema, ? DVT Findings: RIGHT: Patent common femoral vein and popliteal vein with spontaneous, respirophasic Doppler waveforms that respond normally to augmentation maneuvers. The common femoral vein, saphenofemoral junction, femoral vein through the thigh and popliteal vein are fully compressible. Patent posterior tibial and peroneal veins with no evidence of thrombus. LEFT: Patent common femoral vein and popliteal vein with spontaneous, respirophasic Doppler waveforms that respond normally to augmentation maneuvers. The common femoral vein, saphenofemoral junction, femoral vein through the thigh and popliteal vein are fully compressible. Patent posterior tibial and peroneal veins with no evidence of thrombus. Interpretation: RIGHT: No evidence of lower extremity deep venous thrombosis. LEFT: No evidence of lower extremity deep venous thrombosis. Comparison: No previous study in our vascular lab database for comparison. VBTEXTRPT End of Report 10/03/2022 0749 Microbiology: Microbiology Results (Last 30 days) Procedure Component Value Units Date/Time Urine culture Urine [[id number]] Collected: 09/29/22 2245 Lab Status: Final result Specimen: Urine Updated: 09/30/22 1721 Urine Culture No growth (Less than 1,000 cfu/ml). Imaging/Diagnostics No results found for this visit on 09/28/22 (from the past 48 hour(s)). Discharge Conditions/Prognosis: Upon discharge the pt is hemodynamically stable, afebrile, fully ambulatory without requiring supplemental oxygen, holding down food/drink, and pain controlled with stable oral regimen. Discharge to: home without services. Discharge Medications: Your Medications New Medications Dose Details allopurinoL 200 mg tablet Commonly known as: Zyloprim Take 200 mg by mouth daily. Start taking on: October 04, 2022 200 mg Quantity: 60 tablet Refills: 3 atorvastatin 40 mg tablet Commonly known as: Lipitor Take 1 tablet by mouth daily. 40 mg Quantity: 30 tablet Refills: 3 cholecalciferol 1,000 unit tablet Commonly known as: Vitamin D3 Take 1 tablet by mouth daily. Start taking on: October 04, 2022 1,000 Units Quantity: 90 tablet Refills: 3 Continued medications with new dosing Dose Details Lantus Solostar U-100 Insulin 100 unit/mL (3 mL) pen Inject 8 Units subcutaneously daily. Generic drug: insulin glargine What changed: how much to take how to take this 8 Units Quantity: 10 mL Refills: 12 Continued medications, unchanged Dose Details Synthroid 137 mcg tablet Take 137 mcg by mouth daily. Generic drug: levothyroxine 137 mcg Refills: 0 STOPPED Medications FML Forte 0.25 % Drops, Suspension Generic drug: fluorometholone lisinopriL 10 mg tablet Commonly known as: Zestril metFORMIN 500 mg tablet Commonly known as: Glucophage simvastatin 40 mg tablet Commonly known as: Zocor tamsulosin 0.4 mg capsule Commonly known as: Flomax traMADoL 50 mg tablet Commonly known as: Ultram Updated Allergies/ADRs: Allergies Allergen Reactions Amoxicillin Rash Penicillin Other reaction(s): Unknown Instructions Given to Patient at Discharge: Patient Instructions Discharge Instructions Why you were hospitalized: You had a postobstructive uropathy from bulky intra- abdominal lymphadenopathy for which ureteral stents were placed and biopsies were taken. Patient Instructions: - scheduled follow-up with urology on 10/11/2022 -No current indication for Lasix as patient is having postobstructive diuresis. -We will need to follow-up with cardiology later on this is scheduled for 11/10/2022 -Follow-up with hematology/oncology scheduled for 10/20/2022 with pathology results. -You have been scheduled to follow-up with your PCP office 10/10/22 1:00; labs to be drawn and checked a BMP, magnesium and Phos levels. Call your doctor or seek medical attention if you experience any alarming symptoms. This may include, but is not limited to, fever, chest pain, severe shortness of breath, nausea withvomiting, persistent decrease in your urinary output, severe pain, or any other concerning symptoms. Activity level: As tolerated. Diet: No new restrictions. Driving: Please do not drive if you feel lightheaded, dizzy, faint, or taking any opioids/narcotics(i.e oxycodone). It is advisable that you do not drive till you follow-up with your primary care physician. Shower/Bath: No new restrictions. Wound Care: N/A Home Oxygen therapy: N/A Changes in Your Medications: New Medications: Medication dose changes: Stop these medications: Upcoming appointments: Future Appointments Date Time Provider Department Center 10/11/2022 10:00 AM True Juarez MD [facility] [place] [facility] 10/20/2022 9:30 AM Thad Jimenez MD [facility] [place]C [facility] 10/20/2022 10:45 AM LABORATORY, TECH [facility] [place] [facility]K [facility] 11/10/2022 8:20 AM Sameer Rudolph MD [facility] You have a hospital follow up appointment scheduled with your primary care provider's office, Monday October 10, 2022 1:00 with Christal Chavis APRN, colleague of JESSE Saldaña Primary Care Provider: JESSE Nesbitt [phone] Your Inpatient Doctor(s) at [facility]: DO Diego Nuno MD Your Primary Care Provider: JESSE Nesbitt [address] [place] [address] For questions regarding this document or issues relating to this hospitalization on the Medical Service, please contact your inpatient physician through the [facility] Software Development Advisor . Issues afterhours and on weekends will be handled by the Hospitalist staff on-call. General Instructions [facility] Vascular and Interventional Radiology Biopsy Discharge Instructions Call your doctor immediately if you develop a sudden onset of weakness, increased pain or swelling at the biopsy site or heavy bleeding at the biopsy site. Lung biopsy: coughing up a little blood is common during the next 24 hours. If large blood clots come up, or if the bleeding gets worse, you should contact us or your doctor immediately. The most common complication is collapse of the lung. The symptoms of lung collapse are increasing pain on breathing, often extending into the shoulder on the side of the biopsy, and increasing difficulty breathing. If these symptoms occur after you leave the hospital, have someone drive you to the nearest Emergency Department as it must be treated promptly or call 911. Activity And Diet: Go home and rest quietly for the remainder of the day. You may resume your normal activities tomorrow. Resume your usual diet after the procedure. Do not drive, sign any important/legal documents, or make any important decisions for 24 hours following sedation medications. You have received medication during your procedure to help lessen anxiety and keep you comfortable.These medications affect judgement and reaction time. We recommend that you do not drive, operate equipment, sign any important documents, or smoke unattended for 24 hours following your procedure. Because of the sedation, be careful on stairs, as you may be unsteady on your feet. When to call your healthcare provider: If you see any redness, swelling or drainage at the biopsy site. If you develop chills. If you have a fever greater than or equal to 101 degrees Fahrenheit. If you develop pain around the biopsy site. Bandage: Check the dressing/bandaid throughout the day for an increase in drainage. Keep the biopsy site dryfor 24 hours. Replace the bandaid as needed. You may shower 24 hours after the biopsy. Medication: DO NOT take aspirin-containing products, ibuprofen, or blood-thinning medication for the next 24 hours unless your clinician says you may do so. Generally you may use acetaminophen as needed for discomfort unless you have liver disease and are instructed not to take acetaminophen. Biopsy Results The results of your biopsy should be available within 5 business days and will be reported to you by your primary career discovery teacher or the clinician who ordered the biopsy. Please do not call us for results as we will not have them. If you have not been contacted by your clinician within 5 business days you should call that officefor further information. When to call the Interventional Radiology Department: Please call with any questions or concerns. If it is during regular office hours, please call [phone]. If it is after regular office hours, or on weekends or holidays, please call [phone] and ask to speak to the [employer] Customer Leader scientific publications editor for Interventional Radiology. HEART FAILURE ACTION PLAN For people who had congestive heart failure during hospitalization and need measures to reduce riskof recurrence. Not intended for people with advanced cirrhosis, ESRD, or major difficulty obtainingaccurate standing scale weights. Please weigh yourself first thing when you get home. Let us know if you do not have a scale that works. This will be your GOAL WEIGHT for the next 4 weeks. You may need to adjust your medication to stay within the safety range of 4 pounds above or below your GOAL WEIGHT. You GOAL WEIGHT is your weight without extra fluid on board. That is why you need to check your weight in the morning after using the bathroom, and before you eat or drink anything. Check your weight around the same time every day (Example: every morning at 7am). Each time you weigh yourself, write it down in the table below, or on a calendar. It is important to keep a written log of your weights. Also write down your DOSE of (I.e. Lasix/Furosemide) that you will take that day. This is your water pill. Doctors also call this a diuretic. Date Weight (Pounds=lbs) Dose (Milligrams=mg) Diuretics (water pills) help keep you at your goal weight. They work by getting rid of the extra fluid that builds up in your body. Sometimes you will need to take more diuretic medication if you have too much fluid. When you have too much fluid, your weight is higher, and you may notice your feet swelling, trouble breathing, or lying down flat. Other times you might need to take less diuretic medication, or not take it for a day or so, if youare losing too much fluid. When you are dehydrated your weight is lower. You may feel weak, dizzy or unwell. That is why weighing yourself every day is VERY important! If you are having difficulty with weights, not feeling well, or major symptoms please call your primary care provider right away. Some heartsymptoms include fatigue, shortness of breath, swelling in legs or abdomen. You can go back to your original dose if you get back to your GOAL WEIGHT. It will take a little time to get used to these instructions but our medical assistants will call you several times over the next 4 weeks to check in on how you are doing. Please let your primary care office (specify if plant associate or other group should manage) know if you have to change your diuretic dose. If you ever get into the situation where these diuretic changes are not enough, then your primary care provider may make further adjustments or even refer you to [facility]'s IV diuresis clinic. Your outside doctors can also help advise you if your GOAL WEIGHT should change in a month. You may need to call 911 if you develop severe, suddenly worsening symptoms. SALT (Sodium or Na) If a person eats or drinks foods with a lot of salt (also called sodium) it can make them keep morefluid in their bodies. This makes your heart work harder, increase your blood pressure and increases your weight. Please try to eat and drink less than 2 grams (equals 2000 milligrams) of salt or sodium each day. To do this, you will need to read food and drink labels and add up all the salt/sodium. As your hospital or primary care doctor if you want help with this. They can send you to see a category analyst (a person trained to help you with meal planning and healthy food choices) that can make mealplanning much easier. LIST OF COMMON HIGH SALT FOODS: Smoked, cured, salted or canned meat, fish or poultry including duff, cold cuts, ham, frankfurters, sausage, sardines, and anchovies. Frozen breaded meats and dinners, such as burritos and pizza. Canned entrees, such as ravioli, spam and chili. Salted nuts. Many salad dressings Beans canned with salt added. Future Appointments and Orders Future Appointments and Orders Future Appointments Provider Department Dept Phone 10/11/2022 10:00 AM True Juarez MD Urology at [facility] Arrive at: [place] [phone] To view instructions for your video visit, click here, or visit this website: [email or web address] If you have not previously downloaded the [facility] patient portal software, [employer], or the [employer] flavio, please do so by clicking one of these links below or searching in your device's flavio store. For all desktops/laptops; for Android devices; for Apple/iOS devices FAQs: Join Video Visit button not connecting? - This may be due to pop-up blockers. - Click this link to see: How to Disable Pop-Up Block for myD Video Visits Zoom asking for a meeting password? - Exit out of the Zoom program and try the link again 10/20/2022 9:30 AM Jacquelyn Kapoor APRN; Thad Jimenez MD Hematology and Oncology at [facility] Arrive at: [employer] [facility] [phone] 10/20/2022 10:45 AM LABORATORY, [place] H[facility] Oncology at [facility] Arrive at: [employer] [facility] [phone] 11/10/2022 8:20 AM Sameer Rudolph MD Cardiology at [place] Arrive at: [facility] [address] [phone] Provider Contact Information: JESSE Nesbitt [address] / [place] [address] Discharge References/Attachments: Discharge References/Attachments None documented in this encounter Discharge Instructions * Discharge Instructions* Peter Herrera RN - 09/30/2022 10:39 AM EDT Patient Instructions Discharge Instructions Why you were hospitalized: You had a postobstructive uropathy from bulky intra- abdominal lymphadenopathy for which ureteral stents were placed and biopsies were taken. Patient Instructions: - scheduled follow-up with urology on 10/11/2022 -No current indication for Lasix as patient is having postobstructive diuresis. -We will need to follow-up with cardiology later on this is scheduled for 11/10/2022 -Follow-up with hematology/oncology scheduled for 10/20/2022 with pathology results. -You have been scheduled to follow-up with your PCP office 10/10/22 1:00; labs to be drawn and checked a BMP, magnesium and Phos levels. Call your doctor or seek medical attention if you experience any alarming symptoms. This may include, but is not limited to, fever, chest pain, severe shortness of breath, nausea withvomiting, persistent decrease in your urinary output, severe pain, or any other concerning symptoms. Activity level: As tolerated. Diet: No new restrictions. Driving: Please do not drive if you feel lightheaded, dizzy, faint, or taking any opioids/narcotics(i.e oxycodone). It is advisable that you do not drive till you follow-up with your primary care physician. Shower/Bath: No new restrictions. Wound Care: N/A Home Oxygen therapy: N/A Changes in Your Medications: New Medications: Medication dose changes: Stop these medications: Upcoming appointments: Future Appointments Date Time Provider Department Center 10/11/2022 10:00 AM True Juarez MD [facility] [place] [facility] 10/20/2022 9:30 AM Thad Jimenez MD [facility] [place] [facility] 10/20/2022 10:45 AM LABORATORY, TECH [facility] [place] [facility] [facility] 11/10/2022 8:20 AM Sameer Rudolph MD [facility] You have a hospital follow up appointment scheduled with your primary care provider's office, Monday October 10, 2022 1:00 with Christal Chavis APRN, colleague of JESSE Saldaña Primary Care Provider: JESSE Nesbitt [phone] Your Inpatient Doctor(s) at [facility] Diego Nuno MD Your Primary Care Provider: JESSE Nesbitt [address] [address] / [place] [address] For questions regarding this document or issues relating to this hospitalization on the Medical Service, please contact your inpatient physician through the [facility] Software Development Advisor . Issues afterhours and on weekends will be handled by the Hospitalist staff on-call. General Instructions [facility] Vascular and Interventional Radiology Biopsy Discharge Instructions Call your doctor immediately if you develop a sudden onset of weakness, increased pain or swelling at the biopsy site or heavy bleeding at the biopsy site. Lung biopsy: coughing up a little blood is common during the next 24 hours. If large blood clots come up, or if the bleeding gets worse, you should contact us or your doctor immediately. The most common complication is collapse of the lung. The symptoms of lung collapse are increasing pain on breathing, often extending into the shoulder on the side of the biopsy, and increasing difficulty breathing. If these symptoms occur after you leave the hospital, have someone drive you to the nearest Emergency Department as it must be treated promptly or call 911. Activity And Diet: Go home and rest quietly for the remainder of the day. You may resume your normal activities tomorrow. Resume your usual diet after the procedure. Do not drive, sign any important/legal documents, or make any important decisions for 24 hours following sedation medications. You have received medication during your procedure to help lessen anxiety and keep you comfortable.These medications affect judgement and reaction time. We recommend that you do not drive, operate equipment, sign any important documents, or smoke unattended for 24 hours following your procedure. Because of the sedation, be careful on stairs, as you may be unsteady on your feet. When to call your healthcare provider: If you see any redness, swelling or drainage at the biopsy site. If you develop chills. If you have a fever greater than or equal to 101 degrees Fahrenheit. If you develop pain around the biopsy site. Bandage: Check the dressing/bandaid throughout the day for an increase in drainage. Keep the biopsy site dryfor 24 hours. Replace the bandaid as needed. You may shower 24 hours after the biopsy. Medication: DO NOT take aspirin-containing products, ibuprofen, or blood-thinning medication for the next 24 hours unless your clinician says you may do so. Generally you may use acetaminophen as needed for discomfort unless you have liver disease and are instructed not to take acetaminophen. Biopsy Results The results of your biopsy should be available within 5 business days and will be reported to you by your primary career discovery teacher or the clinician who ordered the biopsy. Please do not call us for results as we will not have them. If you have not been contacted by your clinician within 5 business days you should call that officefor further information. When to call the Interventional Radiology Department: Please call with any questions or concerns. If it is during regular office hours, please call [phone]. If it is after regular office hours, or on weekends or holidays, please call [phone] and ask to speak to the [employer] Customer Leader scientific publications editor for Interventional Radiology. HEART FAILURE ACTION PLAN For people who had congestive heart failure during hospitalization and need measures to reduce riskof recurrence. Not intended for people with advanced cirrhosis, ESRD, or major difficulty obtainingaccurate standing scale weights. Please weigh yourself first thing when you get home. Let us know if you do not have a scale that works. This will be your GOAL WEIGHT for the next 4 weeks. You may need to adjust your medication to stay within the safety range of 4 pounds above or below your GOAL WEIGHT. You GOAL WEIGHT is your weight without extra fluid on board. That is why you need to check your weight in the morning after using the bathroom, and before you eat or drink anything. Check your weight around the same time every day (Example: every morning at 7am). Each time you weigh yourself, write it down in the table below, or on a calendar. It is important to keep a written log of your weights. Also write down your DOSE of (I.e. Lasix/Furosemide) that you will take that day. This is your water pill. Doctors also call this a diuretic. Date Weight (Pounds=lbs) Dose (Milligrams=mg) Diuretics (water pills) help keep you at your goal weight. They work by getting rid of the extra fluid that builds up in your body. Sometimes you will need to take more diuretic medication if you have too much fluid. When you have too much fluid, your weight is higher, and you may notice your feet swelling, trouble breathing, or lying down flat. Other times you might need to take less diuretic medication, or not take it for a day or so, if youare losing too much fluid. When you are dehydrated your weight is lower. You may feel weak, dizzy or unwell. That is why weighing yourself every day is VERY important! If you are having difficulty with weights, not feeling well, or major symptoms please call your primary care provider right away. Some heartsymptoms include fatigue, shortness of breath, swelling in legs or abdomen. You can go back to your original dose if you get back to your GOAL WEIGHT. It will take a little time to get used to these instructions but our medical assistants will call you several times over the next 4 weeks to check in on how you are doing. Please let your primary care office (specify if plant associate or other group should manage) know if you have to change your diuretic dose. If you ever get into the situation where these diuretic changes are not enough, then your primary care provider may make further adjustments or even refer you to [facility]'s IV diuresis clinic. Your outside doctors can also help advise you if your GOAL WEIGHT should change in a month. You may need to call 911 if you develop severe, suddenly worsening symptoms. SALT (Sodium or Na) If a person eats or drinks foods with a lot of salt (also called sodium) it can make them keep morefluid in their bodies. This makes your heart work harder, increase your blood pressure and increases your weight. Please try to eat and drink less than 2 grams (equals 2000 milligrams) of salt or sodium each day. To do this, you will need to read food and drink labels and add up all the salt/sodium. As your hospital or primary care doctor if you want help with this. They can send you to see a category analyst (a person trained to help you with meal planning and healthy food choices) that can make mealplanning much easier. LIST OF COMMON HIGH SALT FOODS: Smoked, cured, salted or canned meat, fish or poultry including duff, cold cuts, ham, frankfurters, sausage, sardines, and anchovies. Frozen breaded meats and dinners, such as burritos and pizza. Canned entrees, such as ravioli, spam and chili. Salted nuts. Many salad dressings Beans canned with salt added. * Patient Instructions* Diego Lima MD - 10/03/2022 7:31 AM EDT Discharge Instructions Why you were hospitalized: You had a postobstructive uropathy from bulky intra- abdominal lymphadenopathy for which ureteral stents were placed and biopsies were taken. Patient Instructions: - scheduled follow-up with urology on 10/11/2022 -No current indication for Lasix as patient is having postobstructive diuresis. -We will need to follow-up with cardiology later on this is scheduled for 11/10/2022 -Follow-up with hematology/oncology scheduled for 10/20/2022 with pathology results. -You have been scheduled to follow-up with your PCP office 10/10/22 1:00; labs to be drawn and checked a BMP, magnesium and Phos levels. Call your doctor or seek medical attention if you experience any alarming symptoms. This may include, but is not limited to, fever, chest pain, severe shortness of breath, nausea withvomiting, persistent decrease in your urinary output, severe pain, or any other concerning symptoms. Activity level: As tolerated. Diet: No new restrictions. Driving: Please do not drive if you feel lightheaded, dizzy, faint, or taking any opioids/narcotics(i.e oxycodone). It is advisable that you do not drive till you follow-up with your primary care physician. Shower/Bath: No new restrictions. Wound Care: N/A Home Oxygen therapy: N/A Changes in Your Medications: New Medications: Medication dose changes: Stop these medications: Upcoming appointments: Future Appointments Date Time Provider Department Center 10/11/2022 10:00 AM True Juarez MD [facility] [place] [facility] 10/20/2022 9:30 AM Thad Jimenez MD [facility] [place] [facility] 10/20/2022 10:45 AM LABORATORY, TECH [facility] [place] 11/10/2022 8:20 AM Sameer Rudolph MD [facility] Cardio [facility] You have a hospital follow up appointment scheduled with your primary care provider's office, Monday October 10, 2022 1:00 with Christal Chavis APRN, colleague of JESSE Saldaña Primary Care Provider: JESSE Nesbitt [phone] Your Inpatient Doctor(s) at [facility] DO Diego Nuno MD Your Primary Care Provider: JESSE Nesbitt [address] [facility] / [place] [address] For questions regarding this document or issues relating to this hospitalization on the Medical Service, please contact your inpatient physician through the [facility] Software Development Advisor . Issues afterhours and on weekends will [...] Units subcutaneously daily. 10 mL 12 10/03/2022 allopurinoL (Zyloprim) 200 mg tablet Take 200 mg by mouth daily. 60 tablet 3 10/04/2022 10/05/2022 Synthroid 137 mcg Tablet Take 137 mcg by mouth daily. 08/31/2021 11/10/2022 documented as of this encounter Progress Notes * Peter Herrera RN - 10/03/2022 3:02 PM EDT Pt is discharging home independently. Friend to provide transportation in a private vehicle. He hasall of his belongings at the time of his discharge including locked medications that he brought from home. IV removed. He verbalized understanding of his DC instructions including f/u appts with [facility] medical provider and his medication regimen. He verbalized understanding of s/s that might require medical attention. * Peter Herrera RN - 10/03/2022 2:56 PM EDT All belongings returned to patient at the time of discharge. * Sulaiman Medley DO - 10/03/2022 2:04 PM EDT HOSPITAL MEDICINE ATTENDING DAY OF DISCHARGE NOTE Patient Huber Mosher 1955 [id number] Physician Sulaiman Medley DO Pager: [phone] Hospitalist Encounter Date October 03, 2022 PCP JESSE Nesbitt PCP phone [phone] Discharge diagnosis Active Hospital Problems Diagnosis WALTER (acute kidney injury) Resolved Hospital Problems No resolved problems to display. Secondary Issues Active Non-Hospital Problems Diagnosis Status post cervical spinal fusion Doing well overall with decreasing creatinine. RLE with no evidence of clot, but likely with decreased venous flow from bulky lymphadenopathy in pelvis. Biopsies remain pending. Follow-up later this week with PCP and repeat lab work. Will need to start furosemide on renal function is stable. Match I/Os on discharge. I have personally seen and examined the patient and they are ready for discharge. I spent >30 minutes (Day of Discharge Code 53678) involved in the final examination of the patient, discussion of the hospital stay, instructions for continuing care to all relevant caregivers, and preparation of discharge records, prescriptions and referral forms. Plans Discharge to home Follow-up scheduled with Future Appointments Date Time Provider Department Center 10/11/2022 10:00 AM True Juarez MD [facility] 10/20/2022 9:30 AM Thad Jimenez MD [facility] [place] 10/20/2022 10:45 AM LABORATORY, TECH [facility] [place] 11/10/2022 8:20 AM Sameer Rudolph MD [facility] Please see the Discharge Summary for complete details of any medication changes and additional plans. Sulaiman Medley DO Pager: [phone] October 03, 2022 10:19 PM * Reinaldo Barron MD - 10/03/2022 7:30 AM EDT Hypertension-Nephrology Inpatient Follow-up Huber Mosher [id number] 1955 ID: [id number] y.o. old male seen for evaluation of WALTER & metabolic acidosis. Interval History: Urine flowing with ureteral stents in place, Cr continues to downtrend. UOP continues to be robust.Reports some right flank pain which seems to be musculoskeletal. Duplex study negative for DVT. Physical Examination: Last value 24 Hour Temperature Range Temp: [36.3 ??C (97.3 ??F)-36.6 ??C (97.9 ??F)] 12 Hour Heart Rate Range Heart Rate: -- 24 Hour Blood Pressure Range BP: (117-130)/(67-75) Respiratory Rate Resp: 18 SpO2 SpO2: 99 % Body mass index is 26.99 kg/m??. General: Appears well overall today, not in distress. HEENT: EOM intact, sclera clear, mucous membranes moist. CV: S1 & S2 audible, no MGR. Resp: CTAB, breathing comfortably on room air. Abd: Soft, non-tender, non-distended. Ext: 2+ edema in the right lower extremity Skin: No rashes or lesions. Neuro: Alert and oriented, no focal deficits. Psych: Pleasant and calm, conversational attention is intact. sevelamer carbonate 800 mg Oral TID WC cholecalciferol 1,000 Units Oral Daily insulin lispro 1-4 Units Subcutaneous TID AC sodium bicarbonate 1,300 mg Oral TID heparin (porcine) 5,000 Units Subcutaneous Q8H SILVER polyethylene glycoL (MIRALAX) oral powder 17 g Oral Daily pravastatin 10 mg Oral QPM allopurinoL 200 mg Oral Daily sodium chloride 0.9 % (flush) 5 mL Intravenous BID senna-docusate 2 tablet Oral BID levothyroxine 150 mcg Oral Daily Allergies Allergen Reactions Amoxicillin Rash Penicillin Other reaction(s): Unknown Lab Results Component Value Date CREATININE 2.52 (H) 10/03/2022 CREATININE 3.15 (H) 10/02/2022 CREATININE 4.12 (H) 10/01/2022 CREATININE 4.09 (H) 10/01/2022 CREATININE 4.19 (H) 10/01/2022 ESTGFR 27 (L) 10/03/2022 ESTGFR 21 (L) 10/02/2022 ESTGFR 15 (L) 10/01/2022 ESTGFR 15 (L) 10/01/2022 ESTGFR 15 (L) 10/01/2022 CO2 21 (L) 10/03/2022 CO2 19 (L) 10/02/2022 CO2 18 (L) 10/01/2022 CO2 18 (L) 10/01/2022 CO2 18 (L) 10/01/2022 NA 136 10/02/2022 NA 135 10/01/2022 NA 134 (L) 10/01/2022 NA 135 10/01/2022 NA 132 (L) 09/30/2022 K 4.9 10/02/2022 K 4.7 10/01/2022 K 4.8 10/01/2022 K 5.1 (H) 10/01/2022 K 5.6 (H) 09/30/2022 Lab Results Component Value Date UMICALBCALC 22 09/29/2022 Lab Results Component Value Date HGB 9.9 (L) 10/01/2022 Lab Results Component Value Date CALCIUM 8.7 10/03/2022 CALCIUM 9.0 10/02/2022 CALCIUM 9.1 10/01/2022 CALCIUM 9.1 10/01/2022 PHOS 2.6 10/03/2022 PHOS 3.1 10/02/2022 PHOS 4.6 (H) 10/01/2022 25OHVITD 21 09/29/2022 ALBUMIN 2.6 (L) 09/30/2022 Lab Results Component Value Date URICACID 3.4 (L) 10/01/2022 URICACID 3.7 09/30/2022 URICACID 4.5 09/30/2022 SPEP on admission remarkable for possible paraprotein, immunofixation in process. CTCAP shows extensive adenopathy in the chest, abdomen and pelvis suspicious for a lymphoma. There is bilateral hydronephrosis in the setting of retroperitoneal lymphadenopathy. There are also bilateral pleural fluid collections. Initial urine studies bland. TTE 09/30/2022 shows LVEF 27% with apical akinesis. There is moderate to severe mitral regurgitationas well as moderate tricuspid regurgitation. Flow cytometry negative. Summary: Huber Mosher is 67 y.o. yo male requiring inpatient consultation for WALTER. Medical comorbidities include T2DM, HLD, hypothyroidism, elevated PSA w/ neative biopsy, hx cervical decompression in March 2022. Obstruction relieved and Creatinine down trending. 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 His TTE demonstrated a low EF with apical akinesis and valvular abnormalities, unclear of the chronicity of this; more than likely an underlying cardiorenal physiology present as well. # Diffuse lymphadenopathy concerning for underlying lymphoma # Obstructive Nephropathy, improving # Bilateral Hydronephrosis, improving # WALTER in the setting of Above # TLS, resolved # Mixed gap/non-gap acidosis # HFrEF (EF 57%) # Moderate to severe mitral regurgitation # Moderate to severe tricuspid regurgitation - Continue cholecalciferol 1000 U daily - Continue sevelamer 800 mg TID with meals - Continue Na Bicarbonate 1300 mg TID Patient will discharge today. I will reach out to our schedulers to help us arrange follow-up in the next 2 weeks in the out patient setting. Please avoid NSAIDs, contrast, nephrotoxins and dose adjust renally toxic medications as able. This case was discussed with staff rig hand Dr. Mock and the patient's primary team. Please contact me at phone: [phone] or pager: [phone] with any questions. Reinaldo Barron MD Nephrology & Hypertension Fellow Associated attestation - Lilian Mock MD - 10/04/2022 8:15 AM EDT I have seen and examined Mr Mosher , reviewed the relevant clinical and laboratory data and images, and discussed the case with Mono Waite. His note accurately reflects our joint assessment and recommendations. * Diego Lima MD - 10/02/2022 10:09 AM EDT MEDICINE PAGER [phone] - [facility] Daily Progress Note Page [phone] to reach a provider 26/09 Admit Date: 2022 Encounter Date: October 02, 2022 Anticipated Discharge Date: 10/04/2022 Hospital Day: 4 24 Hour Events/Subjective: Huber Mosher is a 67 y.o. male with hx of T2DM, HLD, hypothyroidism, elevated PSA w/ neative biopsy who presents at the instruction of his PCP for imaging findings concerning for hydronephrosisand diffuse retroperitoneal lymphadenopathy. Overnight -No acute events overnight. This morning -Reports no major concerns except for persistent right lower extremity swelling which is some what increased compared to yesterday. Otherwise denies pain. He also endorses frequent micturition habits. He was net -1.5 L over the last 24 hours. -Otherwise he is HDS, afebrile. BMP stable. Objective: Last value Range last 24 hrs Temp: 36.5 ??C (97.7 ??F) Temp: [36.2 ??C (97.1 ??F)-36.6 ??C (97.8 ??F)] Heart Rate: 80 Heart Rate from SpO2: 81 bpm Heart Rate: -- BP: 117/67 BP: (110-129)/(66-80) Resp: 20 Resp: [18-20] SpO2: 100 % SpO2: [98 %-100 %] Height: 180.3 cm (5' 11) Weight: 87.8 kg (193 lb 8 oz) BMI (Calculated): 26.98 BMI Classification: Over Weight Intake/Output Summary (Last 24 hours) at 10/02/2022 1409 Last data filed at 10/02/2022 1030 Gross per 24 hour Intake 450 ml Output 2775 ml Net -2325 ml Patient Vitals for the past 72 hrs: Weight 10/01/22 1915 87.8 kg (193 lb 8 oz) 10/01/22 0747 86.7 kg (191 lb 3.2 oz) EXAM: General: Patient in no apparent acute distress. HEENT: Normocephalic, atraumatic, symmetric. Sclera anicteric. Cardiovascular: Regular rhythm. No murmurs, rubs, gallops. Respiratory: Lungs clear to auscultation. No wheeze, rhonchi, rales. Abdominal: Non-tender, non-distended. Lower Extremities: +3 pedal edema to R knee, no edema L. 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 Neuro: AOx4, remainder grossly intact : Toscano in place draining clear yellow urine Labs: Recent Labs 10/01/22 0906 09/30/22 0019 WBC 5.3 5.7 HGB 9.9* 8.2* PLATELET 522* 431* Recent Labs 09/30/22 1218 INR 1.3 Recent Labs 10/02/22 0628 10/01/22 0906 10/01/22 0009 NA 136 134* 135 135 K 4.9 4.8 4.7 5.1* CL 104 103 103 106 CO2 19* 18* 18* 18* BUN 66* 74* 74* 75* CREATININE 3.15* 4.09* 4.12* 4.19* MAGNESIUM 0.73 0.79 -- PHOS 3.1 4.6* -- Component Value Date/Time SPGRAVITYUA 1.012 2022 1836 PHUADIP 5.5 2022 1836 PROTEINUADIP Negative 2022 1836 GLUCOSEU Negative 2022 1836 KETONESUA Negative 2022 1836 UROBILIUADIP Normal 2022 1836 BLOODUADIP Negative 2022 1836 NITRATEUA Negative 2022 1836 LEUKOESTERUA Negative 2022 1836 BILIRUBINUA Negative 2022 1836 Results for orders placed or performed during the hospital encounter of 09/28/22 XR Chest One View (Exam End: 2022 10:01 PM) Impression Small bilateral dependent pleural effusions. Thank you for letting us participate in the care of this patient. If you are a health care provider and have any questions regarding this report, please contact the number below. For patients who have questions please contact the health primary care pediatrician that requested your imaging first. Chest Abdomen Pelvis wo Contrast (Exam End: 09/29/2022 5:00 AM) Impression 1. Extensive adenopathy within the chest, abdomen, and pelvis as detailed above. These findings are highly suspicious for lymphoma. 2. Bilateral hydronephrosis, likely secondary to retroperitoneal adenopathy. 3. Indeterminate left septated cystic renal lesion with chunky mural calcifications as detailed above. Nonemergent outpatient renal protocol MRI or ultrasound is recommended for further evaluation. 4. Bilateral lung opacities differential considerations include edema, infection, or inflammation. 5. Small bilateral pleural collections. I have personally reviewed the image(s) and the resident's interpretation and agree with the findings, Jhony Bond MD at 09/29/2022 5:43 AM Thank you for letting us participate in the care of this patient. If you are a health care provider and have any questions regarding this report, please contact the number below. For patients who have questions please contact the health primary care pediatrician that requested your imaging first. No results found for this visit on 09/28/22 (from the past 24 hour(s)). CONSULTANTS: IP CONSULT TO UROLOGY IP ADMISSION REQUEST IP CONSULT TO HEMATOLOGY IP CONSULT TO NEPHROLOGY IP CONSULT TO NEPHROLOGY IP CONSULT TO CARDIOLOGY Assessment: Huber Mosher is a 67 y.o. male with hx of T2DM, HLD, hypothyroidism, elevated PSA w/ neative biopsy who presents at the instruction of his PCP for imaging findings concerning for hydronephrosisand diffuse retroperitoneal lymphadenopathy. 10/02/2022: Clinically is much improved, ambulating independently. BMP stable with downtrending creatinine-3.15. He is RLE has persisted and somewhat increased in size. It is prudent to have this investigated for possible right lower extremity DVT with a duplex in the setting of possible ongoing work-up of malignancy. Ongoing autodiuresis with no need for subsequent Lasix dosing at the moment. IR guided biopsy results pending. Possible discharge pending duplex on 10/03. 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 B2 microglobulin elevated at 11.3. IgG 2913, IgA 259, IgM 25. - Heme consult; appreciate recs - q8 BMP, daily Mg. BID phos, BID uric acid - F/u peripheral smear - F/u SPEP-in process -Status post rasburicase and fluids; 09/29- Allopurinol started at 200 mg daily. -Lokelma added for hyperphosphatemia -S/p bilateral stent placement with urology 09/29 - toscano out 10/01, will follow PVR qshift - BLE duple f/u 10/03 #Ischemic Cardiomyopathy #HFrEF (EF ~25%) #c/f volume overload - cardiology consulted appreciate recs - started ASA and statin given concern for underlying coronary disease - Will need cardiology follow up as outpatient - consider adding GDMT pending renal recovery # Renal Lesion Indeterminate left septated cystic renal lesion with chunky mural calcifications. - Recommend non-emergent outpatient renal protocol MRI or ultrasound #T2DM - Sensitive sliding scale #HLD - hold home simvastatin (not on formulary) #Housekeeping: - Level of care: med surg - Vitals: q4 -MiraLAX daily and senna to encourage bowel movement. Diet: Carb Control diet 60/60/75 CHO counting level 2 2 GM NA Last BM documented: 09/30/22 DVT Prophylaxis: Heparin Daily Checklist: Last Family Communication: TBD Discharge Location: AM-PAC Basic Mobility Raw Score: 24 PT: OT: Code status Attempt Cardiopulmonary Resuscitation - Inpatient PCP JESSE Nesbitt [phone] Active Hospital Problems Diagnosis WALTER (acute kidney injury) Resolved Hospital Problems No resolved problems to display. Diego Lima MD Internal Medicine PGY-1 Medicine Purple Team Associated attestation - Sulaiman Medley DO - 10/02/2022 3:26 PM EDT Hospital Medicine Attending Attestation: Patient seen and examined independently. Available diagnostic testing reviewed. Management and planfor today reviewed with team. I agree with the findings and plans as documented in Diego Lima MD's note with any additions and/or corrections noted below. Doing well with much less, but still appropriate, urine output with net negative ~1.5L yesterday without furosemide dosing. RLE still looks enlarged, and possibly more enlarged today. Will get B/L LEvenous dopplers prior to discharge. Continue to follow renal function, but creatinine fall nicely and Na rising appropriately today. Appreciate nephrology assistance and discussed with them today. Renally adjust medications and avoid further nephrotoxins. Will need to decide about when to start oral diuretics, but current urine output adequate. I have examined the patient myself and personally reviewed all studies. In addition, I certify thatI am a D-H credentialed attending provider with admitting privileges and that the patient meets or has met medical necessity to require an inpatient IPI level of care meeting a minimum of two midnights or is on the [facility] inpatient only procedure list (status C) due to: acute kidney injury necessitating close monitoring of fluid balance such as intravenous fluids and/or titration of medication to achieve optimal effect and minimize the chance of immediate or severe side effects Sulaiman Medley DO Pager [phone] 10/02/2022 3:22 PM * Reinaldo Barron MD - 10/02/2022 7:42 AM EDT Hypertension-Nephrology Inpatient Follow-up Huber Mosher [id number] 1955 ID: 67 y.o. old male seen for evaluation of WALTER & metabolic acidosis. Interval History: Urine flowing with ureteral stents in place, Cr continues to downtrend. UOP increased yesterday, hewas given one dose of lasix in the setting of newly identified HFrEF. He is in good spirits today. Physical Examination: Last value 24 Hour Temperature Range Temp: [36.2 ??C (97.1 ??F)-36.6 ??C (97.8 ??F)] 12 Hour Heart Rate Range Heart Rate: -- 24 Hour Blood Pressure Range BP: (110-129)/(66-80) Respiratory Rate Resp: 20 SpO2 SpO2: 100 % Body mass index is 26.99 kg/m??. General: Appears well overall today, not in distress. HEENT: EOM intact, sclera clear, mucous membranes moist. CV: S1 & S2 audible, no MGR. Resp: CTAB, breathing comfortably on room air. Abd: Soft, non-tender, non-distended. Ext: 2+ edema in the right lower extremity Skin: No rashes or lesions. Neuro: Alert and oriented, no focal deficits. Psych: Pleasant and calm, conversational attention is intact. sevelamer carbonate 800 mg Oral TID WC cholecalciferol 1,000 Units Oral Daily insulin lispro 1-4 Units Subcutaneous TID AC sodium bicarbonate 1,300 mg Oral TID heparin (porcine) 5,000 Units Subcutaneous Q8H SILVER polyethylene glycoL (MIRALAX) oral powder 17 g Oral Daily pravastatin 10 mg Oral QPM allopurinoL 200 mg Oral Daily sodium chloride 0.9 % (flush) 5 mL Intravenous BID senna-docusate 2 tablet Oral BID levothyroxine 150 mcg Oral Daily Allergies Allergen Reactions Amoxicillin Rash Penicillin Other reaction(s): Unknown Lab Results Component Value Date CREATININE 3.15 (H) 10/02/2022 CREATININE 4.12 (H) 10/01/2022 CREATININE 4.09 (H) 10/01/2022 CREATININE 4.19 (H) 10/01/2022 CREATININE 4.67 (H) 09/30/2022 ESTGFR 21 (L) 10/02/2022 ESTGFR 15 (L) 10/01/2022 ESTGFR 15 (L) 10/01/2022 ESTGFR 15 (L) 10/01/2022 ESTGFR 13 (L) 09/30/2022 CO2 19 (L) 10/02/2022 CO2 18 (L) 10/01/2022 CO2 18 (L) 10/01/2022 CO2 18 (L) 10/01/2022 CO2 12 (L) 09/30/2022 NA 136 10/02/2022 NA 135 10/01/2022 NA 134 (L) 10/01/2022 NA 135 10/01/2022 NA 132 (L) 09/30/2022 K 4.9 10/02/2022 K 4.7 10/01/2022 K 4.8 10/01/2022 K 5.1 (H) 10/01/2022 K 5.6 (H) 09/30/2022 Lab Results Component Value Date UMICALBCALC 22 09/29/2022 Lab Results Component Value Date HGB 9.9 (L) 10/01/2022 Lab Results Component Value Date CALCIUM 9.0 10/02/2022 CALCIUM 9.1 10/01/2022 CALCIUM 9.1 10/01/2022 PHOS 3.1 10/02/2022 PHOS 4.6 (H) 10/01/2022 PHOS 6.1 (H) 09/30/2022 25OHVITD 21 09/29/2022 ALBUMIN 2.6 (L) 09/30/2022 Lab Results Component Value Date URICACID 3.4 (L) 10/01/2022 URICACID 3.7 09/30/2022 URICACID 4.5 09/30/2022 SPEP on admission remarkable for possible paraprotein, immunofixation in process. CTCAP shows extensive adenopathy in the chest, abdomen and pelvis suspicious for a lymphoma. There is bilateral hydronephrosis in the setting of retroperitoneal lymphadenopathy. There are also bilateral pleural fluid collections. Initial urine studies bland. TTE 09/30/2022 shows LVEF 27% with apical akinesis. There is moderate to severe mitral regurgitationas well as moderate tricuspid regurgitation. Summary: Huber Mosher is 67 y.o. yo male requiring inpatient consultation for WALTER. Medical comorbidities include T2DM, HLD, hypothyroidism, elevated PSA w/ neative biopsy, hx cervical decompression in March 2022. Obstruction relieved and Creatinine down trending. 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 His TTE demonstrated a low EF with apical akinesis and valvular abnormalities, unclear of the chronicity of this; more than likely an underlying cardiorenal physiology present as well. # Diffuse lymphadenopathy concerning for underlying lymphoma # Obstructive Nephropathy, improving # Bilateral Hydronephrosis, improving # WALTER in the setting of Above # TLS, resolved # Mixed gap/non-gap acidosis # HFrEF (EF 57%) # Moderate to severe mitral regurgitation # Moderate to severe tricuspid regurgitation - Continue cholecalciferol 1000 U daily - Continue sevelamer 800 mg TID with meals - Continue Na Bicarbonate 1300 mg TID - I would not replete iron in the setting of active malignancy so would recommend not checking ironstudies - Would continue to monitor BMP, phos, and uric acid at least BID for now. Please avoid NSAIDs, contrast, nephrotoxins and dose adjust renally toxic medications as able. This case was discussed with staff rig hand Dr. Westbrook and the patient's primary team. Please contact me at phone: [phone] or pager: [phone] with any questions. Reinaldo Barron MD Nephrology Fellow Associated attestation - Alvin Westbrook MD - 10/02/2022 5:13 PM EDT I saw and discussed the patient with the fellow and agree with the assessment and plan in his note.Kidney function continues to improve and urine output robust status post percutaneous nephrostomy. Patient has new diagnosis of reduced ejection fraction discovered in preparation for potential chemotherapy. He appears well compensated from a cardiopulmonary standpoint at this time. He has asymmetric lower extremity edema (per patient a chronic finding) and he is anticipating Doppler to rule out DVT. Would continue to target even fluid balance. Awaiting definitive diagnosis of lymphadenopathy from node biopsy * Elizabeth Crowley RN - 10/01/2022 7:52 PM EDT Assumed care of patient at 1700. A&Ox4. Pt IND in room and davis. Pt c/o some pain with urination in R flank, Pain relieved on own shortly after urination. * Reinaldo Barron MD - 10/01/2022 7:31 AM EDT Hypertension-Nephrology Inpatient Follow-up Huber Mosher [id number] 1955 ID: 67 y.o. old male seen for evaluation of WALTER & metabolic acidosis. Interval History: Urine flowing with ureteral stents in place, Cr down-trending with this. No pressing questions or concerns for our team today. Physical Examination: Last value 24 Hour Temperature Range Temp: [36.5 ??C (97.7 ??F)-36.9 ??C (98.4 ??F)] 12 Hour Heart Rate Range Heart Rate: -- 24 Hour Blood Pressure Range BP: (104-105)/(60-65) Respiratory Rate Resp: 18 SpO2 SpO2: 100 % Body mass index is 26.67 kg/m??. General: Appears well overall today, not in distress. HEENT: EOM intact, sclera clear, mucous membranes moist. CV: S1 & S2 audible, no MGR. Resp: CTAB, breathing comfortably on room air. Abd: Soft, non-tender, non-distended. Ext: 2+ edema in the right lower extremity Skin: No rashes or lesions. Neuro: Alert and oriented, no focal deficits. Psych: Pleasant and calm, conversational attention is intact. sevelamer carbonate 800 mg Oral TID WC cholecalciferol 1,000 Units Oral Daily insulin lispro 1-4 Units Subcutaneous TID AC sodium bicarbonate 1,300 mg Oral TID heparin (porcine) 5,000 Units Subcutaneous Q8H SILVER polyethylene glycoL (MIRALAX) oral powder 17 g Oral Daily pravastatin 10 mg Oral QPM allopurinoL 200 mg Oral Daily sodium zirconium cyclosilicate 10 g Oral Daily sodium chloride 0.9 % (flush) 5 mL Intravenous BID senna-docusate 2 tablet Oral BID levothyroxine 150 mcg Oral Daily Allergies Allergen Reactions Amoxicillin Rash Penicillin Other reaction(s): Unknown Lab Results Component Value Date CREATININE 4.12 (H) 10/01/2022 CREATININE 4.09 (H) 10/01/2022 CREATININE 4.19 (H) 10/01/2022 CREATININE 4.67 (H) 09/30/2022 CREATININE 5.15 (H) 09/30/2022 ESTGFR 15 (L) 10/01/2022 ESTGFR 15 (L) 10/01/2022 ESTGFR 15 (L) 10/01/2022 ESTGFR 13 (L) 09/30/2022 ESTGFR 11 (L) 09/30/2022 CO2 18 (L) 10/01/2022 CO2 18 (L) 10/01/2022 CO2 18 (L) 10/01/2022 CO2 12 (L) 09/30/2022 CO2 14 (L) 09/30/2022 NA 135 10/01/2022 NA 134 (L) 10/01/2022 NA 135 10/01/2022 NA 132 (L) 09/30/2022 NA 134 (L) 09/30/2022 K 4.7 10/01/2022 K 4.8 10/01/2022 K 5.1 (H) 10/01/2022 K 5.6 (H) 09/30/2022 K 5.2 (H) 09/30/2022 Lab Results Component Value Date UMICALBCALC 22 09/29/2022 Lab Results Component Value Date HGB 9.9 (L) 10/01/2022 Lab Results Component Value Date CALCIUM 9.1 10/01/2022 CALCIUM 9.1 10/01/2022 CALCIUM 8.8 10/01/2022 PHOS 4.6 (H) 10/01/2022 PHOS 6.1 (H) 09/30/2022 PHOS 6.6 (H) 09/30/2022 25OHVITD 21 09/29/2022 ALBUMIN 2.6 (L) 09/30/2022 Lab Results Component Value Date URICACID 3.4 (L) 10/01/2022 URICACID 3.7 09/30/2022 URICACID 4.5 09/30/2022 SPEP on admission remarkable for possible paraprotein, immunofixation in process. CTCAP shows extensive adenopathy in the chest, abdomen and pelvis suspicious for a lymphoma. There is bilateral hydronephrosis in the setting of retroperitoneal lymphadenopathy. There are also bilateral pleural fluid collections. Initial urine studies bland. Summary: Huber Mosher is 67 y.o. yo male requiring inpatient consultation for WALTER. Medical comorbidities include T2DM, HLD, hypothyroidism, elevated PSA w/ neative biopsy, hx cervical decompression in March 2022. Obstruction relieved and Creatinine down trending. 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 We will continue to monitor for now. # Diffuse lymphadenopathy concerning for underlying lymphoma # Obstructive Nephropathy, improving # Bilateral Hydronephrosis # WALTER in the setting of Above # TLS # Mixed gap/non-gap acidosis - Continue cholecalciferol 1000 U daily - Continue sevelamer 800 mg TID with meals - Continue Na Bicarbonate 1300 mg TID - Okay to stop the sodium zirconium at this time - I would not replete iron in the setting of active malignancy so would recommend not checking ironstudies - Would continue to monitor BMP, phos, and uric acid at least BID for now. Please avoid NSAIDs, contrast, nephrotoxins and dose adjust renally toxic medications as able. This case was discussed with staff rig hand Dr. Westbrook and the patient's primary team. Please contact me at phone: [phone] or pager: [phone] with any questions. Reinaldo Barron MD Nephrology Fellow Associated attestation - Alvin Westbrook MD - 10/01/2022 3:04 PM EDT I saw and discussed the patient with the fellow and I agree with the assessment plan of this note. WALTER is improving following percutaneous nephrostomy tube placement. Patient's urine output greater than 5 L we need to ensure that he is able to keep up with this (patient's do occasionally require IVfluids when urine output greater than 4 L) his serum sodium is creeping up and he may also require some free water replacement. We await definitive diagnosis via lymph node biopsy. * Venus Gonzales MD - 10/01/2022 7:19 AM EDT MEDICINE PAGER [phone] - [facility] Daily Progress Note Page [phone] to reach a provider 26/09 Admit Date: 2022 Encounter Date: October 01, 2022 Anticipated Discharge Date: 10/04/2022 Hospital Day: 3 24 Hour Events/Subjective: Huber Mosher is a 67 y.o. male with hx of T2DM, HLD, hypothyroidism, elevated PSA w/ neative biopsy who presents at the instruction of his PCP for imaging findings concerning for hydronephrosisand diffuse retroperitoneal lymphadenopathy. Overnight -Cards called, felt patient was volume up, recommended diuresis with 60mg IV fursoemide to goal of -1L. That was ordered overnight. Fluids stopped. SSI started This morning - Bill was feeling well overall this morning. Still having swelling in right leg, left is at baseline. Pain in hip / pelvis is very improved. No fevers/chills. Anxious about biopsy results. Eager to get toscano out. Objective: Last value Range last 24 hrs Temp: 36.6 ??C (97.8 ??F) Temp: [36.5 ??C (97.7 ??F)-36.9 ??C (98.4 ??F)] Heart Rate: 80 Heart Rate from SpO2: 77 bpm Heart Rate: -- BP: 105/65 BP: (104-105)/(60-65) Resp: 18 Resp: [17-20] SpO2: 100 % SpO2: [100 %] Height: 180.3 cm (5' 11) Weight: 86.7 kg (191 lb 3.2 oz) BMI (Calculated): 26.98 BMI Classification: Over Weight Intake/Output Summary (Last 24 hours) at 10/01/2022 1231 Last data filed at 10/01/2022 1132 Gross per 24 hour Intake 3772 ml Output 6325 ml Net -2553 ml Patient Vitals for the past 72 hrs: Weight 10/01/22 0747 86.7 kg (191 lb 3.2 oz) 09/29/22 0056 87.8 kg (193 lb 8 oz) 09/28/22 1606 88 kg (194 lb) EXAM: General: Patient in no apparent acute distress. HEENT: Normocephalic, atraumatic, symmetric. Sclera anicteric. Cardiovascular: Regular rhythm. No murmurs, rubs, gallops. Respiratory: Lungs clear to auscultation. No wheeze, rhonchi, rales. Abdominal: Non-tender, non-distended. Lower Extremities: +3 pedal edema to R knee, no edema L. 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 Neuro: AOx4, remainder grossly intact : Toscano in place draining clear yellow urine Labs: Recent Labs 10/01/22 0906 09/30/22 0019 09/29/22 0554 WBC 5.3 5.7 7.4 HGB 9.9* 8.2* 9.5* PLATELET 522* 431* 447* Recent Labs 09/30/22 1218 INR 1.3 Recent Labs 10/01/22 0906 10/01/22 0009 09/30/22 1700 NA 134* 135 135 132* K 4.8 4.7 5.1* 5.6* CL 103 103 106 105 CO2 18* 18* 18* 12* BUN 74* 74* 75* 75* CREATININE 4.09* 4.12* 4.19* 4.67* MAGNESIUM 0.79 -- -- PHOS 4.6* -- 6.1* Component Value Date/Time SPGRAVITYUA 1.012 2022 1836 PHUADIP 5.5 2022 1836 PROTEINUADIP Negative 2022 1836 GLUCOSEU Negative 2022 1836 KETONESUA Negative 2022 1836 UROBILIUADIP Normal 2022 1836 BLOODUADIP Negative 2022 1836 NITRATEUA Negative 2022 1836 LEUKOESTERUA Negative 2022 1836 BILIRUBINUA Negative 2022 1836 Results for orders placed or performed during the hospital encounter of 09/28/22 XR Chest One View (Exam End: 2022 10:01 PM) Impression Small bilateral dependent pleural effusions. Thank you for letting us participate in the care of this patient. If you are a health care provider and have any questions regarding this report, please contact the number below. For patients who have questions please contact the health primary care pediatrician that requested your imaging first. Chest Abdomen Pelvis wo Contrast (Exam End: 09/29/2022 5:00 AM) Impression 1. Extensive adenopathy within the chest, abdomen, and pelvis as detailed above. These findings are highly suspicious for lymphoma. 2. Bilateral hydronephrosis, likely secondary to retroperitoneal adenopathy. 3. Indeterminate left septated cystic renal lesion with chunky mural calcifications as detailed above. Nonemergent outpatient renal protocol MRI or ultrasound is recommended for further evaluation. 4. Bilateral lung opacities differential considerations include edema, infection, or inflammation. 5. Small bilateral pleural collections. I have personally reviewed the image(s) and the resident's interpretation and agree with the findings, Jhony Bond MD at 09/29/2022 5:43 AM Thank you for letting us participate in the care of this patient. If you are a health care provider and have any questions regarding this report, please contact the number below. For patients who have questions please contact the health primary care pediatrician that requested your imaging first. No results found for this visit on 09/28/22 (from the past 24 hour(s)). CONSULTANTS: IP CONSULT TO UROLOGY IP ADMISSION REQUEST IP CONSULT TO HEMATOLOGY IP CONSULT TO NEPHROLOGY IP CONSULT TO NEPHROLOGY IP CONSULT TO CARDIOLOGY Assessment: Huber Mosher is a 67 y.o. male with hx of T2DM, HLD, hypothyroidism, elevated PSA w/ neative biopsy who presents at the instruction of his PCP for imaging findings concerning for hydronephrosisand diffuse retroperitoneal lymphadenopathy. 10/01/2022: Overall Bill is improved today, clinically stable and doing well. Will observe his electrolytes follow his I/O off lasix and without a toscano today. He may need a maintenance lasix dose, but ISO 2.5L net negative yesterday want to see what his kidneys will do on their own today. Will observe his I/O, vitals, and labs following these changes and if he remains clinically stable would be ready for discharge likely 10/02. Will need cardiology follow up as well as outpatient follow up with Heme/Onc on biopsy results/next steps. 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 B2 microglobulin elevated at 11.3. IgG 2913, IgA 259, IgM 25. - Heme consult; appreciate recs - q8 BMP, daily Mg. BID phos, BID uric acid - F/u peripheral smear - F/u SPEP-in process -Status post rasburicase and fluids; 09/29- Allopurinol started at 200 mg daily. -Lokelma added for hyperphosphatemia -S/p bilateral stent placement with urology 09/29 - toscano out 10/01, will follow PVR qshift #Ischemic Cardiomyopathy #HFrEF (EF ~25%) #c/f volume overload - cardiology consulted appreciate recs - started ASA and statin given concern for underlying coronary disease - Will need cardiology follow up as outpatient - consider adding GDMT pending renal recovery # Renal Lesion Indeterminate left septated cystic renal lesion with chunky mural calcifications. - Recommend non-emergent outpatient renal protocol MRI or ultrasound #T2DM - Sensitive sliding scale #HLD - hold home simvastatin (not on formulary) #Housekeeping: - Level of care: med surg - Vitals: q4 -MiraLAX daily and senna to encourage bowel movement. Diet: Carb Control diet 60/60/75 CHO counting level 2 2 GM NA Last BM documented: 09/30/22 DVT Prophylaxis: Heparin Daily Checklist: Last Family Communication: TBD Discharge Location: AM-PAC Basic Mobility Raw Score: 24 PT: OT: Code status Attempt Cardiopulmonary Resuscitation - Inpatient PCP JESSE Nesbitt [phone] Active Hospital Problems Diagnosis WALTER (acute kidney injury) Resolved Hospital Problems No resolved problems to display. Venus Gonzales MD Internal Medicine PGY-2 Medicine Purple Team Associated attestation - Sulaiman Medley DO - 10/01/2022 4:09 PM EDT Hospital Medicine Attending Attestation: Patient seen and examined independently. Available diagnostic testing reviewed. Management and planfor today reviewed with team. I agree with the findings and plans as documented in Venus Gonzales MD's note with any additions and/or corrections noted below. Doing well overall with good urine output overnight. Agree with removing toscano and holding further furosemide dosing for now. Creatinine continues to fall. Renally adjust medications and avoid further nephrotoxins. I have examined the patient myself and personally reviewed all studies. In addition, I certify thatI am a D-H credentialed attending provider with admitting privileges and that the patient meets or has met medical necessity to require an inpatient IPI level of care meeting a minimum of two midnights or is on the [facility] inpatient only procedure list (status C) due to: monitoring of fluid status given an inability to regulate fluid balance and the need for administration or restriction of fluids Sulaiman Medley DO Pager [phone] 10/01/2022 4:08 PM * Marisela Roca MD - 09/30/2022 7:58 AM EDT MEDICINE PAGER [phone] - [facility] Daily Progress Note Page [phone] to reach a provider 26/09 Admit Date: 2022 Encounter Date: September 30, 2022 Anticipated Discharge Date: 10/03/2022 Hospital Day: 2 24 Hour Events/Subjective: Huber Mosher is a 67 y.o. male with hx of T2DM, HLD, hypothyroidism, elevated PSA w/ neative biopsy who presents at the instruction of his PCP for imaging findings concerning for hydronephrosisand diffuse retroperitoneal lymphadenopathy. Overnight -s/p bilateral stent placement with urology, now with blood-tinged urine and toscano - plan for LN biopsy of either RP adenopathy or right external iliac node -Otherwise no acute events overnight per nursing This morning - Reports feeling better after ureteral stent procedure. Denies chest pain, SOB, fever, chills, N, V, abd pain, diarrhea, or constipation. - Continues with toscano Objective: Last value Range last 24 hrs Temp: 36.6 ??C (97.9 ??F) Temp: [36.2 ??C (97.2 ??F)-36.9 ??C (98.4 ??F)] Heart Rate: 73 Heart Rate from SpO2: 84 bpm Heart Rate: [69-81] BP: 101/64 BP: (94-128)/(52-79) Resp: 20 Resp: [14-22] SpO2: 99 % SpO2: [94 %-99 %] Height: 180.3 cm (5' 11) Weight: 87.8 kg (193 lb 8 oz) BMI (Calculated): 26.98 BMI Classification: Over Weight Intake/Output Summary (Last 24 hours) at 09/30/2022 0758 Last data filed at 09/30/2022 0500 Gross per 24 hour Intake 2354 ml Output 2501 ml Net -147 ml Patient Vitals for the past 72 hrs: Weight 09/29/22 0056 87.8 kg (193 lb 8 oz) 09/28/22 1606 88 kg (194 lb) EXAM: General: Patient in no apparent acute distress. HEENT: Normocephalic, atraumatic, symmetric. Sclera anicteric. Cardiovascular: Regular rhythm. No murmurs, rubs, gallops. Respiratory: Lungs clear to auscultation. No wheeze, rhonchi, rales. Abdominal: Non-tender, non-distended. Lower Extremities: +3 pedal edema to R knee, no edema L. 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 Neuro: AOx4, remainder grossly intact : Toscano in place draining pink-tinged urine Labs: Recent Labs 09/30/22 0019 09/29/22 0554 09/28/22 1710 WBC 5.7 7.4 8.7 HGB 8.2* 9.5* 9.6* PLATELET 431* 447* 507* No results for input(s): INR in the last 72 hours. Recent Labs 09/30/22 0617 09/29/22 2309 09/29/22 1724 NA 133* 133* 131* K 5.7* 5.1* 5.2* CL 108* 104 103 CO2 12* 15* 17* BUN 75* 78* 81* CREATININE 5.29* 6.08* 6.31* MAGNESIUM 0.84 0.82 0.88 PHOS 6.8* 6.5* 6.5* Component Value Date/Time SPGRAVITYUA 1.012 2022 1836 PHUADIP 5.5 2022 1836 PROTEINUADIP Negative 2022 1836 GLUCOSEU Negative 2022 1836 KETONESUA Negative 2022 183 UROBILIUADIP Normal 2022 1836 BLOODUADIP Negative 2022 1836 NITRATEUA Negative 2022 1836 LEUKOESTERUA Negative 2022 1836 BILIRUBINUA Negative 2022 1836 Results for orders placed or performed during the hospital encounter of 09/28/22 XR Chest One View (Exam End: 2022 10:01 PM) Impression Small bilateral dependent pleural effusions. Thank you for letting us participate in the care of this patient. If you are a health care provider and have any questions regarding this report, please contact the number below. For patients who have questions please contact the health primary care pediatrician that requested your imaging first. Chest Abdomen Pelvis wo Contrast (Exam End: 09/29/2022 5:00 AM) Impression 1. Extensive adenopathy within the chest, abdomen, and pelvis as detailed above. These findings are highly suspicious for lymphoma. 2. Bilateral hydronephrosis, likely secondary to retroperitoneal adenopathy. 3. Indeterminate left septated cystic renal lesion with chunky mural calcifications as detailed above. Nonemergent outpatient renal protocol MRI or ultrasound is recommended for further evaluation. 4. Bilateral lung opacities differential considerations include edema, infection, or inflammation. 5. Small bilateral pleural collections. I have personally reviewed the image(s) and the resident's interpretation and agree with the findings, Jhony Bond MD at 09/29/2022 5:43 AM Thank you for letting us participate in the care of this patient. If you are a health care provider and have any questions regarding this report, please contact the number below. For patients who have questions please contact the health primary care pediatrician that requested your imaging first. No results found for this visit on 09/28/22 (from the past 24 hour(s)). CONSULTANTS: IP CONSULT TO UROLOGY IP ADMISSION REQUEST IP CONSULT TO HEMATOLOGY IP CONSULT TO NEPHROLOGY Assessment: Huber Mosher is a 67 y.o. male with hx of T2DM, HLD, hypothyroidism, elevated PSA w/ neative biopsy who presents at the instruction of his PCP for imaging findings concerning for hydronephrosisand diffuse retroperitoneal lymphadenopathy. 09/30/2022: S/p stent procedure, producing pink-tinged urine. Cr now 5.29 this AM. Biopsy with IR oflymphadenopathy today. CT c/a/p with extensive lymphadenopathy, highly suspicious for lymphoma, bilateral hydronephrosis, likely secondary to retroperitoneal adenopathy, indeterminate left septated cy stic renal lesion with chunky mural calcifications, bilateral lung opacities, and small bilateral pleural collections. His beta-2 microglobulin level is elevated at 11.3 with elevated free light chains especially kappaand lambda free light chains. IgG is highly elevated x2 upper limit normal. SPEP with decreaed albumin, increased alpha 2 globulin, increased gamma globulin, and possible paraprotein, further testingpending. UPEP wnl. 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 B2 microglobulin elevated at 11.3. IgG 2913, IgA 259, IgM 25. - Heme consult; appreciate recs - q8 BMP, daily Mg. BID phos, BID uric acid - s/p Slow LR infusion 50 cc/hr - F/u peripheral smear - F/u SPEP-in process -Status post rasburicase; 09/29- Allopurinol started at 200 mg daily. -Lokelma added for hyperphosphatemia -S/p bilateral stent placement with urology 09/29 -TTE ordered for baseline cardiac function # Renal finding Indeterminate left septated cystic renal lesion with chunky mural calcifications. - Recommend non-emergent outpatient renal protocol MRI or ultrasound #T2DM - Sensitive sliding scale #HLD - hold home simvastatin (not on formulary) #Housekeeping: - Level of care: med surg - Vitals: q4 -MiraLAX daily and senna to encourage bowel movement. Diet: NPO diet (Give Meds) Last BM documented: 09/30/22 DVT Prophylaxis: Heparin Daily Checklist: Last Family Communication: TBD Discharge Location: AM-PAC Basic Mobility Raw Score: 24 PT: OT: Code status Attempt Cardiopulmonary Resuscitation - Inpatient PCP JESSE Nesbitt [phone] Active Hospital Problems Diagnosis WALTER (acute kidney injury) Resolved Hospital Problems No resolved problems to display. Marisela Roca MD Internal Medicine PGY-1 Medicine Purple Team Associated attestation - Daphnie Zamora MD - 09/30/2022 1:28 PM EDT Attending Staff Documentation I have examined the patient myself on 09/30/2022 and reviewed all labs and studies personally. Please see Dr. Roca's documentation for details of the patient history of presentation and data. I have discussed, reviewed and agree with the documented history with ROS, physical findings, labs/studies, assessment and plan of care. 67-year-old male with history of IDDM 2, hypertension, hyperlipidemia, elevated PSA with negative biopsy presenting with diffuse lymphadenopathy and WALTER with concern for obstructive nephropathy; alsowith metabolic derangements concerning for TLS and raising concern for urate nephropathy Patient remains clinically stable. Status post successful bilateral ureteral stenting. Creatinine improving subsequently. We will need to monitor closely for postobstructive diuresis. Adding sevelamer for hyperphosphatemia, continuing Lokelma and bicarb tabs. Plan for CT-guided core biopsy and TTE today. IPI Certification I certify that I am a [facility] credentialed attending provider with admitting privileges and that the patient meets or has met medical necessity to require an inpatient IPI level of care meeting a minimumof two midnights or is on the [facility] inpatient only procedure list (status C) due to: monitoring of fluid status given an inability to regulate fluid balance and the need for administration or restriction of fluids and acute kidney injury necessitating close monitoring of fluid balance such as intravenous fluids and/or titration of medication to achieve optimal effect and minimize the chance of immediate or severe side effects Daphnie Zamora MD 09/30/2022 * Baudilio Berry RN - 09/30/2022 6:54 AM EDT ANGIO NURSING DATABASE Name: Huber Mosher Date of : 1955 AGE: 67 y.o. Address: [address] [address] (home) Mobile: Telephone Information: Referring Provider: Victoria Law* REASON FOR VISIT: Order Questions Answers Reason for exam and clinical history: 67 YOM with diffuse LAD, presenting with TLS, concern for underlying malignancy Is the patient on anticoagulant / antiplatelet therapy ? Heparin Is the patient taking any anticoagulants and/or antiplatelet meds? No Is patient awake, alert, and consentable? Yes Does patient need assist to stand? No Does Patient have any mobility limitations (e.g. spinal precautions) No Does patient require constant supervision? No Is patient over 450 lbs (200 kg) No If cardiac monitoring, can EKG leads be removed? Yes Does patient have a pacemaker? No Does patient have a Chest Tube? No Is there a language / communication barrier? No Planned procedure: CT guided biopsy of either RP adenopathy or right external iliac node Labs to be performed day of procedure: No labs Sedation: Moderate (Conscious sedation) Prophylactic antibiotic : None Contrast: No contrast Additional medications for procedure: Lidocaine Position: Supine Consent: Pending Medications to discontinue (and days held): None Case Urgency:: D- Intervention within 24 hrs Allergies Allergen Reactions Amoxicillin Rash Penicillin Other reaction(s): Unknown Pertinent PMH: Patient Active Problem List Diagnosis Code Status post cervical spinal fusion Z98.1 WALTER (acute kidney injury) N17.9 Date/Procedure Meds Given/Comments 09/30/22 CT lymph biopsy Fentanyl 50 mcg IV, K is 5.7 patient ok with fentanyl and local 1020 to procedure room CT5 via stretcher. Onto table supine. All monitors, O2, safety strap in place. Meds per protocol. Laboratory Results: Lab Results Component Value Date CREATININE 6.08 (H) 09/29/2022 Lab Results Component Value Date K 5.1 (H) 09/29/2022 Lab Results Component Value Date PLATELET 431 (H) 09/30/2022 * William Aburto MD - 09/30/2022 3:00 AM EDT Post-Operative Check Huber Mosher is a 67 y.o. male s/p Procedure(s): CYSTO, STENT PLACEMENT (WRVU 2.82) S: No nausea/vomiting, chest pain, SOB, pain well controlled, offers no complaints. O: Temp: [36.2 ??C (97.2 ??F)-36.9 ??C (98.4 ??F)] Heart Rate: [69-81] Resp: [14-22] BP: (94-127)/(52-78) SpO2: [94 %-99 %] Heart Rate from SpO2: [69 bpm-86 bpm] I/O last 3 completed shifts: In: 1225 [P.O.:1000; I.V.:225] Out: 860 [Urine:860] I/O this shift: In: 400 [I.V.:400] Out: 1101 [Urine:1100; Blood:1] Recent Results (from the past 24 hour(s)) Protein Electrophoresis, urine, random Result Value Ref Range U Protein Ran 7 0 - 12 mg/dL Electrolytes, urine, random Result Value Ref Range U Sodium 37 mmol/L U Potassium 21 mmol/L U Chloride <20 mmol/L Creatinine, urine, random Result Value Ref Range U Creatinine 77 mg/dL Osmolality, urine, random Result Value Ref Range U Osmolality 278 50 - 1,200 mOsm/kg U Albumin/Cre Ratio Result Value Ref Range Alb/Cr Ratio, Random 22 0 - 29 mcg/mg Cr U Albumin Conc, Random 16.6 mg/L U Creatinine 77 mg/dL Basic Metabolic Panel (non-fasting) Result Value Ref Range Glucose Lvl 85 65 - 199 mg/dL BUN 76 (H) 10 - 20 mg/dL Creatinine 6.07 (H) 0.80 - 1.50 mg/dL Sodium 131 (L) 135 - 145 mmol/L Potassium 5.0 3.5 - 5.0 mmol/L Chloride 99 98 - 107 mmol/L CO2 16 (L) 22 - 31 mmol/L Anion Gap 16 (H) 5 - 15 mmol/L Calcium 8.5 8.5 - 10.5 mg/dL Estimated GFR 9 (L) >=60 mL/min/1.73 m?? Magnesium Result Value Ref Range Magnesium 0.83 0.69 - 1.07 mmol/L Phosphorus Result Value Ref Range Phosphorus 6.2 (H) 2.5 - 4.5 mg/dL Lactate Dehydrogenase Result Value Ref Range LDH 279 (H) 110 - 220 unit/L Uric acid Result Value Ref Range Uric Acid 8.8 (H) 3.5 - 8.5 mg/dL Protein Electrophoresis, serum Result Value Ref Range Total Prot Elec 7.4 6.1 - 8.0 g/dL Albumin Elect 2.95 (L) 3.20 - 5.20 g/dL Alpha1-Globulin 0.27 0.10 - 0.30 g/dL Alpha2-Globulin 1.12 (H) 0.40 - 0.90 g/dL Beta Globulin 0.71 0.50 - 1.00 g/dL Gamma Globulin 2.35 (H) 0.50 - 1.30 g/dL M1 Band Comments Below None Detected SPEP Comments See Note Hepatic Function Panel Result Value Ref Range Total Protein 7.9 6.1 - 8.0 g/dL Albumin 3.0 (L) 3.2 - 5.2 g/dL AST 21 0 - 39 unit/L ALT 12 0 - 55 unit/L Alk Phos 58 40 - 130 unit/L Total Bilirubin 0.4 0.2 - 1.3 mg/dL Bili, Direct 0.2 0.0 - 0.3 mg/dL Free Light Chains, Serum Result Value Ref Range [place] Free Light Chain 16.76 (H) 0.72 - 2.75 mg/dL Lambda Free Light Chain 16.41 (H) 0.57 - 2.15 mg/dL [place] Lambda FLC Ratio 1.0213 0.4000 - 2.5800 Beta 2 Microglobulin, serum Result Value Ref Range Beta2 Microglob 11.3 (H) <=3.0 mg/L Acute [place] Infection Panel Result Value Ref Range Anaplasma phagocytophilum PCR Not Detected Not Detected Ehrlichia chaffeensis PCR Not Detected Not Detected Babesia microti PCR Not Detected Not Detected Borrelia miyamotoi PCR Not Detected Not Detected Lyme IgG & IgM Antibody Result Value Ref Range Lyme Screening Antibody Negative Negative Lyme Ab Comment Negative result does not exclude possibility of infection. Hemogram Result Value Ref Range WBC 7.4 4.0 - 9.5 x10(3)/mcL RBC 3.24 (L) 4.58 - 5.54 x10(6)/mcL Hemoglobin 9.5 (L) 13.7 - 16.5 g/dL Hematocrit 28.9 (L) 40.5 - 48.5 % MCV 89.2 82.9 - 93.1 fL MCH 29.3 27.5 - 32.1 pg MCHC 32.9 32.0 - 35.7 g/dL Platelets 447 (H) 145 - 357 x10(3)/mcL RDWSD 50.2 (H) 36.0 - 45.0 fL RDWCV 15.2 (H) 11.4 - 13.8 % MPV 9.1 7.6 - 12.9 fL nRBC % Auto 0.0 % nRBC Abs Auto 0.000 0.000 - 0.000 x10(3)/mcL Differential, Automated Result Value Ref Range Neutrophils % 70.2 % Neutr Abs (ANC) 5.22 1.70 - 6.10 x10(3)/mcL Lymphocytes % 13.3 % Lymphocytes Abs 1.0 0.9 - 3.2 x10(3)/mcL Monocytes % 12.9 % Monocyte Abs 1.0 (H) 0.3 - 0.9 x10(3)/mcL Eosinophils % 2.6 % Eosinophils Abs 0.2 0.0 - 0.4 x10(3)/mcL Basophils % 0.7 % Basophils Abs 0.0 0.0 - 0.1 x10(3)/mcL Immature Gran % 0.30 % Edie Gran Abs 0.02 0.00 - 0.04 x10(3)/mcL Immunoglobulins, Quantitative Result Value Ref Range IgG 2,913 (H) 700 - 1,600 mg/dL IgA 259 70 - 400 mg/dL IgM 25 (L) 40 - 230 mg/dL Vitamin D, 25-Hydroxy Result Value Ref Range 25-OH Vit D Total 21 21 - 100 ng/mL 25-OH Vit D Interp Insufficient Lactate Dehydrogenase Result Value Ref Range LDH 286 (H) 110 - 220 unit/L Uric acid Result Value Ref Range Uric Acid 7.7 3.5 - 8.5 mg/dL Basic Metabolic Panel (non-fasting) Result Value Ref Range Glucose Lvl 75 65 - 199 mg/dL BUN 80 (H) 10 - 20 mg/dL Creatinine 6.53 (H) 0.80 - 1.50 mg/dL Sodium 129 (L) 135 - 145 mmol/L Potassium 5.8 (H) 3.5 - 5.0 mmol/L Chloride 100 98 - 107 mmol/L CO2 17 (L) 22 - 31 mmol/L Anion Gap 12 5 - 15 mmol/L Calcium 8.5 8.5 - 10.5 mg/dL Estimated GFR 9 (L) >=60 mL/min/1.73 m?? Magnesium Result Value Ref Range Magnesium 0.85 0.69 - 1.07 mmol/L Phosphorus Result Value Ref Range Phosphorus 6.2 (H) 2.5 - 4.5 mg/dL PSA (Ultrasensitive), total and free Result Value Ref Range PSA Total (Ultrasensitive) 78.80 (H) 0.00 - 4.00 ng/mL PSA Free 20.7 ng/mL PSA % Free Not Calculated % Uric Acid-Rasburicase Result Value Ref Range Uric Acid 7.3 3.5 - 8.5 mg/dL Lactate Dehydrogenase Result Value Ref Range LDH 300 (H) 110 - 220 unit/L Uric acid Result Value Ref Range Uric Acid 6.4 3.5 - 8.5 mg/dL Basic Metabolic Panel (non-fasting) Result Value Ref Range Glucose Lvl 65 65 - 199 mg/dL BUN 81 (H) 10 - 20 mg/dL Creatinine 6.31 (H) 0.80 - 1.50 mg/dL Sodium 131 (L) 135 - 145 mmol/L Potassium 5.2 (H) 3.5 - 5.0 mmol/L Chloride 103 98 - 107 mmol/L CO2 17 (L) 22 - 31 mmol/L Anion Gap 11 5 - 15 mmol/L Calcium 9.0 8.5 - 10.5 mg/dL Estimated GFR 9 (L) >=60 mL/min/1.73 m?? Magnesium Result Value Ref Range Magnesium 0.88 0.69 - 1.07 mmol/L Phosphorus Result Value Ref Range Phosphorus 6.5 (H) 2.5 - 4.5 mg/dL POCT Glucose Result Value Ref Range POC Glucose 59 (L) 65 - 199 mg/dL Urine Hold Result Value Ref Range Urine Hold Sample in lab. POCT Glucose Result Value Ref Range POC Glucose 87 65 - 199 mg/dL Basic Metabolic Panel (non-fasting) Result Value Ref Range Glucose Lvl 81 65 - 199 mg/dL BUN 78 (H) 10 - 20 mg/dL Creatinine 6.08 (H) 0.80 - 1.50 mg/dL Sodium 133 (L) 135 - 145 mmol/L Potassium 5.1 (H) 3.5 - 5.0 mmol/L Chloride 104 98 - 107 mmol/L CO2 15 (L) 22 - 31 mmol/L Anion Gap 14 5 - 15 mmol/L Calcium 8.4 (L) 8.5 - 10.5 mg/dL Estimated GFR 9 (L) >=60 mL/min/1.73 m?? Magnesium Result Value Ref Range Magnesium 0.82 0.69 - 1.07 mmol/L Phosphorus Result Value Ref Range Phosphorus 6.5 (H) 2.5 - 4.5 mg/dL Uric acid Result Value Ref Range Uric Acid 5.1 3.5 - 8.5 mg/dL POCT Glucose Result Value Ref Range POC Glucose 75 65 - 199 mg/dL Hemogram Result Value Ref Range WBC 5.7 4.0 - 9.5 x10(3)/mcL RBC 2.85 (L) 4.58 - 5.54 x10(6)/mcL Hemoglobin 8.2 (L) 13.7 - 16.5 g/dL Hematocrit 25.7 (L) 40.5 - 48.5 % MCV 90.2 82.9 - 93.1 fL MCH 28.8 27.5 - 32.1 pg MCHC 31.9 (L) 32.0 - 35.7 g/dL Platelets 431 (H) 145 - 357 x10(3)/mcL RDWSD 50.4 (H) 36.0 - 45.0 fL RDWCV 15.0 (H) 11.4 - 13.8 % MPV 9.1 7.6 - 12.9 fL nRBC % Auto 0.0 % nRBC Abs Auto 0.000 0.000 - 0.000 x10(3)/mcL Differential, Automated Result Value Ref Range Neutrophils % 77.7 % Neutr Abs (ANC) 4.44 1.70 - 6.10 x10(3)/mcL Lymphocytes % 8.7 % Lymphocytes Abs 0.5 (L) 0.9 - 3.2 x10(3)/mcL Monocytes % 9.3 % Monocyte Abs 0.5 0.3 - 0.9 x10(3)/mcL Eosinophils % 3.1 % Eosinophils Abs 0.2 0.0 - 0.4 x10(3)/mcL Basophils % 1.0 % Basophils Abs 0.1 0.0 - 0.1 x10(3)/mcL Immature Gran % 0.20 % Edie Gran Abs 0.01 0.00 - 0.04 x10(3)/mcL POCT Glucose Result Value Ref Range POC Glucose 94 65 - 199 mg/dL Physical Exam Gen: A0x3, NAD, resting comfortably CVS: RRR, no murmurs/rubs/gallops Resp: CTAB, breathing comfortably on 2L NC Abd: soft, nontender, nondistended : toscano in place, mild scrotal edema, clear watermelon pink urine in bag Ext: SCDs in place, WWP AP Huber Mosher is a 67 y.o. male s/p bilateral ureteral stent placement currently in stable condition and recovering well - NPO diet (Give Meds) - Pain well controlled - Hemodynamically stable, UOP adequate - Continue post operative plan per primary team William Aburto MD 09/30/2022 * Marisela Zimmerman RN - 09/29/2022 11:36 PM EDT Assumed care of patient. Resting quietly, awakens easily and denies pain. Simple mask switched to 2Liters NC. All other vital signs stable. * Sameer Ross RN - 09/29/2022 3:22 PM EDT ANGIO NURSING DATABASE Name: Huber Mosher Date of : 1955 AGE: 67 y.o. Address: [address] [address] (home) Mobile: Telephone Information: Referring Provider: Victoria Law* REASON FOR VISIT: Order Questions Answers Reason for exam and clinical history: 67 YOM with diffuse LAD, presenting with TLS, concern for underlying malignancy Is the patient on anticoagulant / antiplatelet therapy ? Heparin Is the patient taking any anticoagulants and/or antiplatelet meds? No Is patient awake, alert, and consentable? Yes Does patient need assist to stand? No Does Patient have any mobility limitations (e.g. spinal precautions) No Does patient require constant supervision? No Is patient over 450 lbs (200 kg) No If cardiac monitoring, can EKG leads be removed? Yes Does patient have a pacemaker? No Does patient have a Chest Tube? No Is there a language / communication barrier? No Planned procedure: CT guided biopsy of either RP adenopathy or right external iliac node Labs to be performed day of procedure: No labs Sedation: Moderate (Conscious sedation) Prophylactic antibiotic : None Contrast: No contrast Additional medications for procedure: Lidocaine Position: Supine Consent: Pending Medications to discontinue (and days held): None Case Urgency:: D- Intervention within 24 hrs Allergies Allergen Reactions Amoxicillin Rash Penicillin Other reaction(s): Unknown Pertinent PMH: Patient Active Problem List Diagnosis Code Status post cervical spinal fusion Z98.1 WALTER (acute kidney injury) N17.9 Date/Procedure Meds Given/Comments Laboratory Results: Lab Results Component Value Date CREATININE 6.53 (H) 09/29/2022 Lab Results Component Value Date K 5.8 (H) 09/29/2022 Lab Results Component Value Date PLATELET 447 (H) 09/29/2022 * Diego Lima MD - 09/29/2022 1:30 PM EDT MEDIC[phone] - [facility] Daily Progress Note Page [phone] to reach a provider 26/09 Admit Date: 2022 Encounter Date: September 29, 2022 Anticipated Discharge Date: Hospital Day: 1 24 Hour Events/Subjective: Huber Mosher is a 67 y.o. male with hx of T2DM, HLD, hypothyroidism, elevated PSA w/ neative biopsy who presents at the instruction of his PCP for imaging findings concerning for hydronephrosisand diffuse retroperitoneal lymphadenopathy. Overnight -Admitted overnight for intra-abdominal process with retroperitoneal lymphadenopathy with concerns of possible TLS and obstructive uropathy. -Urology consulted with plans of bilateral stent placement on 09/29. -Otherwise no acute events overnight per nursing This morning -Reports no major concerns and says he feels less anxious as he feels there is a plan in his work-up for possible Malignancy. -On room air at time of assessment satting at 95% -White count within normal limits but uptrending creatinine-6.07 with GFR-9.; Uric acid levels downto 8.8 from 11.3 Objective: Last value Range last 24 hrs Temp: 36.7 ??C (98.1 ??F) Temp: [36.5 ??C (97.7 ??F)-36.9 ??C (98.4 ??F)] Heart Rate: 80 Heart Rate from SpO2: 76 bpm Heart Rate: [80-83] BP: 110/67 BP: (110-128)/(67-79) Resp: 18 Resp: [16-18] SpO2: 95 % SpO2: [88 %-100 %] Height: 180.3 cm (5' 11) Weight: 87.8 kg (193 lb 8 oz) BMI (Calculated): 26.98 BMI Classification: Over Weight Intake/Output Summary (Last 24 hours) at 09/29/2022 1437 Last data filed at 09/29/2022 1300 Gross per 24 hour Intake 1225 ml Output 560 ml Net 665 ml Patient Vitals for the past 72 hrs: Weight 09/29/22 0056 87.8 kg (193 lb 8 oz) 09/28/22 1606 88 kg (194 lb) EXAM: General: Patient in no apparent acute distress. HEENT: Normocephalic, atraumatic, symmetric. Sclera anicteric. Cardiovascular: Regular rhythm. No murmurs, rubs, gallops. Respiratory: Lungs clear to auscultation. No wheeze, rhonchi, rales. Abdominal: Mildly firm, nontender to palpation. Lower Extremities: +3 pedal edema to R knee, no edema L. 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 Neuro: AOx4, remainder grossly intact Labs: Recent Labs 09/29/22 0554 09/28/22 1710 WBC 7.4 8.7 HGB 9.5* 9.6* PLATELET 447* 507* No results for input(s): INR in the last 72 hours. Recent Labs 09/29/22 1146 09/29/22 0554 09/28/22 1710 09/28/22 1710 NA 129* 131* -- 130* K 5.8* 5.0 -- 5.2* CL 100 99 -- 101 CO2 17* 16* -- 16* BUN 80* 76* -- 74* CREATININE 6.53* 6.07* -- 5.80* MAGNESIUM 0.85 0.83 < > -- PHOS 6.2* 6.2* -- 6.0* < > = values in this interval not displayed. LFT's Lab Results Component Value Date Alk Phos 58 09/29/2022 AST 21 09/29/2022 Albumin 3.0 (L) 09/29/2022 Bili, Direct 0.2 09/29/2022 Total Bilirubin 0.4 09/29/2022 ALT 12 09/29/2022 Total Protein 7.9 09/29/2022 Results for orders placed or performed during the hospital encounter of 09/28/22 (from the past 24 hour(s)) XR Chest One View (Exam End: 2022 10:01 PM) Impression Small bilateral dependent pleural effusions. Thank you for letting us participate in the care of this patient. If you are a health care provider and have any questions regarding this report, please contact the number below. For patients who have questions please contact the health primary care pediatrician that requested your imaging first. Chest Abdomen Pelvis wo Contrast (Exam End: 09/29/2022 5:00 AM) Impression 1. Extensive adenopathy within the chest, abdomen, and pelvis as detailed above. These findings are highly suspicious for lymphoma. 2. Bilateral hydronephrosis, likely secondary to retroperitoneal adenopathy. 3. Indeterminate left septated cystic renal lesion with chunky mural calcifications as detailed above. Nonemergent outpatient renal protocol MRI or ultrasound is recommended for further evaluation. 4. Bilateral lung opacities differential considerations include edema, infection, or inflammation. 5. Small bilateral pleural collections. I have personally reviewed the image(s) and the resident's interpretation and agree with the findings, Sword C Ronda, MD at 09/29/2022 5:43 AM Thank you for letting us participate in the care of this patient. If you are a health care provider and have any questions regarding this report, please contact the number below. For patients who have questions please contact the health primary care pediatrician that requested your imaging first. ULTANTS: IP CONSULT TO UROLOGY IP ADMISSION REQUEST IP CONSULT TO HEMATOLOGY IP CONSULT TO NEPHROLOGY Assessment: Huber Mosher is a 67 y.o. male with hx of T2DM, HLD, hypothyroidism, elevated PSA w/ neative biopsy who presents at the instruction of his PCP for imaging findings concerning for hydronephrosisand diffuse retroperitoneal lymphadenopathy. 09/29/2022 he is stable this a.m., producing low volume of urine. He has severe WALTER with EGFR of 9 from obstructive uropathy likely from retroperitoneal lymphadenopathy compression. He is being planned for bilateral ureteric stent placements with urology today. With regards to his TLS, uric acid currently 8.8 and thus will transition him from rasburicase to allopurinol. He has not had a bowel movement in 5 days and thus MiraLAX and senna added. His beta-2 microglobulin level is elevated at 11.3 with elevated free light chains especially kappaand lambda free light chains. IgG is highly elevated x2 upper limit normal. SPEP in process. Appreciate heme-onc input, PSA ordered per request; a repeat biopsy to be scheduled possibly for tomorrow in the a.m. as per IR. We will keep him n.p.o. past midnight today. 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 -Lokelma added for hyperphosphatemia\ -Awaiting bilateral stent placement with urology -TTE ordered for baseline cardiac function #T2DM - Sensitive sliding scale #HLD - hold home simvastatin (not on formulary) #Housekeeping: - Level of care: med surg - Vitals: q4 -MiraLAX daily and senna to encourage bowel movement. Diet: NPO diet (Give Meds) Last BM documented: 09/28/22 DVT Prophylaxis: Heparin Daily Checklist: Last Family Communication: TBD Discharge Location: AM-PAC Basic Mobility Raw Score: 24 PT: OT: Code status Attempt Cardiopulmonary Resuscitation - Inpatient PCP JESSE Nesbitt [phone] Active Hospital Problems Diagnosis WALTER (acute kidney injury) Resolved Hospital Problems No resolved problems to display. Associated attestation - Daphnie Zamora MD - 09/29/2022 4:01 PM EDT Attending Staff Documentation I have examined the patient myself on 09/29/2022 and reviewed all labs and studies personally. Please see Dr. Lima's documentation for details of the patient history of presentation and data. I have discussed, reviewed and agree with the documented history with ROS, physical findings, labs/studies, assessment and plan of care. 67-year-old male with history of IDDM 2, hypertension, hyperlipidemia, elevated PSA with negative biopsy presenting with diffuse lymphadenopathy and WALTER with concern for obstructive nephropathy; alsowith metabolic derangements concerning for TLS and raising concern for urate nephropathy Patient remains clinically stable. Adding Lokelma for hyperkalemia and allopurinol for uric acid. He is status post rasburicase. We will continue to trend electrolytes/uric acid. Will monitor on telemetry. WALTER potentially multifactorial. Concern for obstruction in setting of lymphadenopathy. Urology consulted and plan for ureteral stents. FeNa also suggested intrinsic injury and would be worried about urate nephropathy. We will add sodium bicarbonate for alkalinization. In the meantime, given diffuse lymphadenopathy, concern for underlying lymphoma or leukemia. IR consulted for retroperitoneal lymph node biopsy. IPI Certification I certify that I am a [facility] credentialed attending provider with admitting privileges and that the patient meets or has met medical necessity to require an inpatient IPI level of care meeting a minimumof two midnights or is on the [facility] inpatient only procedure list (status C) due to: monitoring of fluid status given an inability to regulate fluid balance and the need for administration or restriction of fluids and acute kidney injury necessitating close monitoring of fluid balance such as intravenous fluids and/or titration of medication to achieve optimal effect and minimize the chance of immediate or severe side effects Daphnie Zamora MD 09/29/2022 documented in this encounter H&P Notes * Tanya Alexander PA - 09/30/2022 9:22 AM EDT INTERVENTIONAL RADIOLOGY FOCUSED H&P: Procedure: Planned procedure: CT guided biopsy of either RP adenopathy or right external iliac node The patient's history and physical exam have been reviewed and completed. There has been no interval change from that of the pre-operative history and physical exam done within the last 30 days. Physical Exam: Cardiovascular: Regular, Normal Pulmonary: Breath sounds clear to auscultation The planned procedure (and sedation plan if appropriate) , its benefits and risks, and alternativeswere discussed with the patient. The patient consented to the procedure. PRE-SEDATION ASSESSMENT: Sedation Plan: moderate (conscious sedation) ASA: 2: Patient with mild systemic disease Mallampati: II: tonsillar pillars are blocked by the tongue Confirm NPO status: Yes History of anesthetic complications: No Current medications reviewed: Yes Allergies reviewed: Yes Source Note - AlexandriaSonal PA - 09/29/2022 12:13 PM EDT Images from the original note were not included. Interventional Radiology Focused Pre-procedure H&P: PCP: JESSE Nesbitt Referring Provider: Victoria Law* Planned procedure: CT guided biopsy of either retroperitoneal adenopathy or right external iliac node Procedure indication: Diffuse lymphadenopathy concern for lymphoma, need for histopathological diagnosis. IR workflow: Procedure request received through Interventional Radiology eDH order queue. There are no answered order specific questions. History of Present Illness: Per chart review, Huber Mosher is a 67 y.o. male with PMH of new diffuse lymphadenopathy who presents to Interventional Radiology to undergo CT guided biopsy of either the retroperitoneal adenopathy or right external iliac node - location up to IR provider's discretion. Patient has a PMH of T2DM, HLD, hypothyroidism, with an elevated PSA w/ neative biopsy who presented to at the instruction of his PCP for imaging findings concerning for hydronephrosis and diffuseretroperitoneal lymphadenopathy. IR was consulted given concern for leukemia vs lymphoma. Remainder of patient's medical and surgical history, allergies, medications, and social/family history obtained below as previously outlined in patient's medical record. IR History: None listed at Anticoagulation/Antiplatelet: SQ heparin q8hr Labs: Lab Results Component Value Date HGB 9.5 (L) 09/29/2022 HCT 28.9 (L) 09/29/2022 WBC 7.4 09/29/2022 PLATELET 447 (H) 09/29/2022 BUN 76 (H) 09/29/2022 CREATININE 6.07 (H) 09/29/2022 ALBUMIN 3.0 (L) 09/29/2022 BILIDIR 0.2 09/29/2022 BILITOT 0.4 09/29/2022 AST 21 09/29/2022 ALT 12 09/29/2022 ALKPHOS 58 09/29/2022 Allergies: Amoxicillin and Penicillin Imaging: CTAP 09/29/22 Assessment: 67 y.o. male with diffuse lymphadenopathy presenting to Interventional Radiology for CTguided biopsy. Case discussed with Interventional Radiology Attending Physician Dr. Harvey Plan Planned procedure: CT guided biopsy of either RP adenopathy or right external iliac node Labs to be performed day of procedure: No labs Sedation: Moderate (Conscious sedation) Prophylactic antibiotic : None Contrast: No contrast Additional medications for procedure: Lidocaine Position: Supine Consent: Pending Medications to discontinue (and days held): None Cytopathology presence needed: No Case Urgency:: D- Intervention within 24 hrs Medications: No current facility-administered medications on file prior to encounter. Current Outpatient Medications on File Prior to Encounter Medication Sig Dispense Refill fluorometholone (FML Forte) 0.25 % Drops, Suspension 1 drop Every 12 hours. traMADoL (Ultram) 50 mg Tablet TAKE 1 TABLET BY MOUTH EVERY 8 HOURS NEEDED FOR SEVERE ACUTE PAIN tamsulosin (Flomax) 0.4 mg Capsule Take 1 capsule by mouth daily. 90 tablet 3 Lantus Solostar U-100 Insulin 100 unit/mL (3 mL) pen 16 Units daily. Synthroid 137 mcg Tablet Take 137 mcg by mouth daily. lisinopriL (Zestril) 10 mg Tablet Take 10 mg by mouth daily. metFORMIN (Glucophage) 500 mg Tablet Take 1,000 mg by mouth 2 times daily (with meals). simvastatin (Zocor) 40 mg Tablet Take 40 mg by mouth nightly. Past Medical/Surgical history: Patient Active Problem List Diagnosis Code Status post cervical spinal fusion Z98.1 WALTER (acute kidney injury) N17.9 Past Medical History: Diagnosis Date Diabetes High blood pressure Hypothyroid Past Surgical History: Procedure Laterality Date CATARACT REMOVAL WITH IMPLANT 2019 HAND SURGERY Left 1997 Left thumb repair surgery INGUINAL HERNIA REPAIR 1954 as an PRO ALLOGRAFT FOR SPINE SURGERY ONLY MORSELIZED Bilateral 03/17/2022 ALLOGRAFT FOR SPINE SURGERY ONLY; MORSELIZED (WRVU *) performed by Bebe Hatfield MD at [facility] MAIN OR PRO ARTHRD ANT INTERDY CERVCL BELW C2 EA ADDL NTRSPC Bilateral 03/17/2022 ARTHRODESIS ANT INTERBDY CERVCL BELOW C2 EA ADDL INTRSPACE (WRVU 6.5) performed by Bebe Hatfield MD at [facility] MAIN OR PRO ARTHRODESIS, ANT INTERBODY,DECOMPRESSION; CERVICAL BELOW C2 Bilateral 03/17/2022 ARTHRODESIS, ANT INTERBODY,DECOMPRESSION; CERVICAL BELOW C2 (WRVU 25) performed by Bebe Hatfield MD at [facility] MAIN OR PRO INSERT BIOMCHN DEV INTERVERTEBRAL DSC SPC W/ARTHRD Bilateral 03/17/2022 INSERTION INTERBODY BIOMECH DEV TO INTERVEBRAL DISC SPACE, EA INTERSPACE (WRVU 4.25) performed by Bebe Hatfield MD at [facility] MAIN OR US GUIDED BIOPSY PROSTATE WITH URONAV FUSION 12/20/2021 US Guided Biopsy Prostate with Uronav Fusion 12/20/2021 [facility] RAD ULTRASOUND Social History and Habits: Social History Tobacco Use Smoking status: Never Smokeless tobacco: Never Substance Use Topics Alcohol use: Not Currently Drug use: Not Currently Significant Family History: No family history on file. Pertinent ROS: as per HPI Physical Exam: Pending (to be performed in IR the day of procedure) ASA: Pending (to be assessed in IR the day of procedure) Mallampati class: Pending (to be assessed in IR the day of procedure) 09/29/2022 Sonal Menard PA-C * Sonal Menard PA - 09/29/2022 12:13 PM EDT Images from the original note were not included. Interventional Radiology Focused Pre-procedure H&P: PCP: JESSE Nesbitt Referring Provider: Victoria Law* Planned procedure: CT guided biopsy of either retroperitoneal adenopathy or right external iliac node Procedure indication: Diffuse lymphadenopathy concern for lymphoma, need for histopathological diagnosis. IR workflow: Procedure request received through Interventional Radiology eDH order queue. There are no answered order specific questions. History of Present Illness: Per chart review, Huber Mosher is a 67 y.o. male with PMH of new diffuse lymphadenopathy who presents to Interventional Radiology to undergo CT guided biopsy of either the retroperitoneal adenopathy or right external iliac node - location up to IR provider's discretion. Patient has a PMH of T2DM, HLD, hypothyroidism, with an elevated PSA w/ neative biopsy who presented to at the instruction of his PCP for imaging findings concerning for hydronephrosis and diffuseretroperitoneal lymphadenopathy. IR was consulted given concern for leukemia vs lymphoma. Remainder of patient's medical and surgical history, allergies, medications, and social/family history obtained below as previously outlined in patient's medical record. IR History: None listed at Anticoagulation/Antiplatelet: SQ heparin q8hr Labs: Lab Results Component Value Date HGB 9.5 (L) 09/29/2022 HCT 28.9 (L) 09/29/2022 WBC 7.4 09/29/2022 PLATELET 447 (H) 09/29/2022 BUN 76 (H) 09/29/2022 CREATININE 6.07 (H) 09/29/2022 ALBUMIN 3.0 (L) 09/29/2022 BILIDIR 0.2 09/29/2022 BILITOT 0.4 09/29/2022 AST 21 09/29/2022 ALT 12 09/29/2022 ALKPHOS 58 09/29/2022 Allergies: Amoxicillin and Penicillin Imaging: CTAP 09/29/22 Assessment: 67 y.o. male with diffuse lymphadenopathy presenting to Interventional Radiology for CTguided biopsy. Case discussed with Interventional Radiology Attending Physician Dr. Harvey Plan Planned procedure: CT guided biopsy of either RP adenopathy or right external iliac node Labs to be performed day of procedure: No labs Sedation: Moderate (Conscious sedation) Prophylactic antibiotic : None Contrast: No contrast Additional medications for procedure: Lidocaine Position: Supine Consent: Pending Medications to discontinue (and days held): None Cytopathology presence needed: No Case Urgency:: D- Intervention within 24 hrs Medications: No current facility-administered medications on file prior to encounter. Current Outpatient Medications on File Prior to Encounter Medication Sig Dispense Refill fluorometholone (FML Forte) 0.25 % Drops, Suspension 1 drop Every 12 hours. traMADoL (Ultram) 50 mg Tablet TAKE 1 TABLET BY MOUTH EVERY 8 HOURS NEEDED FOR SEVERE ACUTE PAIN tamsulosin (Flomax) 0.4 mg Capsule Take 1 capsule by mouth daily. 90 tablet 3 Lantus Solostar U-100 Insulin 100 unit/mL (3 mL) pen 16 Units daily. Synthroid 137 mcg Tablet Take 137 mcg by mouth daily. lisinopriL (Zestril) 10 mg Tablet Take 10 mg by mouth daily. metFORMIN (Glucophage) 500 mg Tablet Take 1,000 mg by mouth 2 times daily (with meals). simvastatin (Zocor) 40 mg Tablet Take 40 mg by mouth nightly. Past Medical/Surgical history: Patient Active Problem List Diagnosis Code Status post cervical spinal fusion Z98.1 WALTER (acute kidney injury) N17.9 Past Medical History: Diagnosis Date Diabetes High blood pressure Hypothyroid Past Surgical History: Procedure Laterality Date CATARACT REMOVAL WITH IMPLANT 2019 HAND SURGERY Left 1997 Left thumb repair surgery INGUINAL HERNIA REPAIR 1954 as an infant PRO ALLOGRAFT FOR SPINE SURGERY ONLY MORSELIZED Bilateral 03/17/2022 ALLOGRAFT FOR SPINE SURGERY ONLY; MORSELIZED (WRVU *) performed by Bebe Hatfield MD at [facility] MAIN OR PRO ARTHRD ANT INTERDY CERVCL BELW C2 EA ADDL NTRSPC Bilateral 03/17/2022 ARTHRODESIS ANT INTERBDY CERVCL BELOW C2 EA ADDL INTRSPACE (WRVU 6.5) performed by Bebe Hatfield MD at [facility] MAIN OR PRO ARTHRODESIS, ANT INTERBODY,DECOMPRESSION; CERVICAL BELOW C2 Bilateral 03/17/2022 ARTHRODESIS, ANT INTERBODY,DECOMPRESSION; CERVICAL BELOW C2 (WRVU 25) performed by Bebe Hatfield MD at [facility] MAIN OR PRO INSERT BIOMCHN DEV INTERVERTEBRAL DSC SPC W/ARTHRD Bilateral 03/17/2022 INSERTION INTERBODY BIOMECH DEV TO INTERVEBRAL DISC SPACE, EA INTERSPACE (WRVU 4.25) performed by Bebe Hatfield MD at [facility] MAIN OR US GUIDED BIOPSY PROSTATE WITH URONAV FUSION 12/20/2021 US Guided Biopsy Prostate with Uronav Fusion 12/20/2021 [facility] RAD ULTRASOUND Social History and Habits: Social History Tobacco Use Smoking status: Never Smokeless tobacco: Never Substance Use Topics Alcohol use: Not Currently Drug use: Not Currently Significant Family History: No family history on file. Pertinent ROS: as per HPI Physical Exam: Pending (to be performed in IR the day of procedure) ASA: Pending (to be assessed in IR the day of procedure) Mallampati class: Pending (to be assessed in IR the day of procedure) 09/29/2022 JESSE Crespo-C * Porter Kingston MD - 2022 11:58 PM EDT Hospital Medicine Admission H&P Patient Name: HUBER MOSHER Date of : 1955 Age: 67 y.o. Hospital Admit Date: 2022 Inpatient Attending: Daniel Ortiz MD PCP: JESSE Nesbitt Presenting Diagnosis/Chief Complaint: Leg swelling History of Present Illness: Huber Mosher is a 67 y.o. male with hx of T2DM, HLD, hypothyroidism, elevated PSA w/ neative biopsy who presents at the instruction of his PCP for imaging findings concerning for hydronephrosisand diffuse retroperitoneal lymphadenopathy. He first noticed R leg swelling in the end of August. It was noticed by a family member. It has not been painful but he has noticed some tingling in his RLE. Denies any weakness of R leg, or falls. HisPCP had been working up his lower extremity swelling. His duplex about 1 week ago was negative. Today he went for CT scan at [place] which showed hydronephrosis and diffuse retroperitoneal lymphadenopathy. He also endorses lower back pain which he thinks is muscloskeletal. He reports ~15 lb weight lost in the past month. He felt like he may have had higher urine output the past month but he is not sure. Denies dysuria, hematuria. Denies fever, chills, night sweats. ED labs significant for hgb 9.6, platelets 507, na 130, K 5.2, creatinine 5.8, uric acid 11.3, phos6.0. CXR showed b/l pleural effusions. Was given 4mg IV morphine by ED. Review of Systems: Per HPI Past Medical History: Past Medical History: Diagnosis Date Diabetes High blood pressure Hypothyroid Patient Active Problem List Diagnosis Code Status post cervical spinal fusion Z98.1 WALTER (acute kidney injury) N17.9 Past Surgical History: Past Surgical History: Procedure Laterality Date CATARACT REMOVAL WITH IMPLANT 2019 HAND SURGERY Left 1997 Left thumb repair surgery INGUINAL HERNIA REPAIR 1954 as an PRO ALLOGRAFT FOR SPINE SURGERY ONLY MORSELIZED Bilateral 03/17/2022 ALLOGRAFT FOR SPINE SURGERY ONLY; MORSELIZED (WRVU *) performed by Bebe Hatfield MD at [facility] MAIN OR PRO ARTHRD ANT INTERDY CERVCL BELW C2 EA ADDL NTRSPC Bilateral 03/17/2022 ARTHRODESIS ANT INTERBDY CERVCL BELOW C2 EA ADDL INTRSPACE (WRVU 6.5) performed by Bebe Hatfield MD at [facility] MAIN OR PRO ARTHRODESIS, ANT INTERBODY,DECOMPRESSION; CERVICAL BELOW C2 Bilateral 03/17/2022 ARTHRODESIS, ANT INTERBODY,DECOMPRESSION; CERVICAL BELOW C2 (WRVU 25) performed by Bebe Hatfield MD at [facility] MAIN OR PRO INSERT BIOMCHN DEV INTERVERTEBRAL DSC SPC W/ARTHRD Bilateral 03/17/2022 INSERTION INTERBODY BIOMECH DEV TO INTERVEBRAL DISC SPACE, EA INTERSPACE (WRVU 4.25) performed by Bebe Hatfield MD at [facility] MAIN OR US GUIDED BIOPSY PROSTATE WITH URONAV FUSION 12/20/2021 US Guided Biopsy Prostate with Uronav Fusion 12/20/2021 [facility] RAD ULTRASOUND Social History: Social History Socioeconomic History Marital status: Single Spouse name: Not on file Number of children: Not on file Years of education: Not on file Highest education level: Not on file Occupational History Not on file Tobacco Use Smoking status: Never Smokeless tobacco: Never Substance and Sexual Activity Alcohol use: Not Currently Drug use: Not Currently Sexual activity: Not on file Other Topics Concern Not on file Social History Narrative Not on file Social Determinants of Health Financial Resource Strain: Not on file Food Insecurity: Not on file Transportation Needs: Not on file Physical Activity: Not on file Housing Stability: Not on file Family History: No family history on file. Allergies: Allergies Allergen Reactions Amoxicillin Rash Penicillin Other reaction(s): Unknown Medications: Medications Prior to Admission Medication Sig Dispense Refill Last Dose fluorometholone (FML Forte) 0.25 % Drops, Suspension 1 drop Every 12 hours. traMADoL (Ultram) 50 mg Tablet TAKE 1 TABLET BY MOUTH EVERY 8 HOURS NEEDED FOR SEVERE ACUTE PAIN tamsulosin (Flomax) 0.4 mg Capsule Take 1 capsule by mouth daily. 90 tablet 3 Lantus Solostar U-100 Insulin 100 unit/mL (3 mL) pen 16 Units daily. Synthroid 137 mcg Tablet Take 137 mcg by mouth daily. lisinopriL (Zestril) 10 mg Tablet Take 10 mg by mouth daily. metFORMIN (Glucophage) 500 mg Tablet Take 1,000 mg by mouth 2 times daily (with meals). simvastatin (Zocor) 40 mg Tablet Take 40 mg by mouth nightly. PHYSICAL EXAM: Last value Range last 24 hrs Temperature Temp: 36.5 ??C (97.7 ??F) Temp: [36.5 ??C (97.7 ??F)] Heart Rate Heart Rate: 80 Heart Rate: [80-83] Blood Pressure BP: 118/70 BP: (118-128)/(70-79) Respiratory Rate Resp: 18 Resp: [16-18] SpO2 SpO2: 100 % SpO2: [100 %] No intake/output data recorded. General: Patient in no apparent acute distress. HEENT: Normocephalic, atraumatic, symmetric. Sclera anicteric. Cardiovascular: Regular rhythm. No murmurs, rubs, gallops. Respiratory: Lungs clear to auscultation. No wheeze, rhonchi, rales. Abdominal: Soft, mildly distended, RLQ TTP Lower Extremities: +3 pedal edema to R knee, no edema L. 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 Neuro: AOx4, remainder grossly intact LABS: Recent Labs 09/28/221709 WBC 8.7 HGB 9.6* HCT 29.2* PLATELET 507* Recent Labs 09/28/221709 NA 130* K 5.2* CL 101 CO2 16* BUN 74* CREATININE 5.80* Recent Labs 09/28/221709 CALCIUM 9.0 PHOS 6.0* No results for input(s): PT, PTT, FIBRINOGEN, DDIMER in the last 168 hours. Invalid input(s): THROMBIN TIME No results for input(s): INR in the last 168 hours. No results for input(s): AST, ALT, ALKPHOS, BILITOT, BILIDIR in the last 168 hours. No results for input(s): CK, TROPONINT in the last 168 hours. Recent Labs 09/28/22 1710 URICACID 11.3* No results for input(s): TSH in the last 7068 hours. No results for input(s): HA1C in the last 7068 hours. Microbiology: Microbiology Results (Last 30 days) No results found for the last 720 hours. Imaging/Diagnostics: Results for orders placed or performed during the hospital encounter of 09/28/22 XR Chest One View (Exam End: 2022 10:01 PM) Impression Small bilateral dependent pleural effusions. Thank you for letting us participate in the care of this patient. If you are a health care provider and have any questions regarding this report, please contact the number below. For patients who have questions please contact the health primary care pediatrician that requested your imaging first. SSMENT and PLAN: Huber Mosher is a 67 y.o. male with hx of T2DM, HLD, hypothyroidism, elevated PSA w/ neative biopsy who presents at the instruction of his PCP for imaging findings concerning for hydronephrosisand diffuse retroperitoneal lymphadenopathy. Pt is presenting w/ signs concerning for hematologic malignancy leukemia vs lymphoma. His labs careconcerning for developing TLS though he does not yet meet Ken Villafana criteria. Most concerning ishis highly elevated uric acid, will start rasburicase now and follow TLS labs q6 for now. We unfortunately do not have imaging available form [place]. Given his already poor renal function want to avoid further contrast but would like to obtain chest imaging given ne pleural effusions. Lower extremity edema is likely due to intraabdominal compression, given recent DVT study being negative will hold off on further imaging for now. 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 The patient wishes to be full code Porter Kingston MD [facility] [place]2 Associated attestation - Daniel Ortiz MD - 09/29/2022 8:11 AM EDT Please see Dr. Kingston's note for details of the patient history of presentation and data. I have discussed, reviewed and agree with the documented history with ROS, social and family history, medication list, physical findings, labs/studies, Assessment and Plan of care. I have examined the patient myself and reviewed all labs and studies personally. access consultant hematology was made aware, agreed with rasburicase and more IVF hydration. Will continue hydration, f/u electrolytes, phos, and uric. Obtain actual CT from [facility] for second read to compare with new CT. Pt was placed on oxygen 1-2 L overnight, no shortness of breath. Was on NS 50 cc/hr, currently anra300 cc/hr, will need reassessment. In addition, I certify that I am a [facility] credentialed attending provider with admitting privileges and that the patient meets or has met medical necessity to require an inpatient IPI level of care meeting a minimum of two midnights or is on the [facility] inpatient only procedure list (status C) due to: Concern for tumor lysis syndrome, diffused retroperitoneal lymphadenopathy r/o hematologic malignancy, hyperuricemia documented in this encounter Procedure Notes * Vasile Sparks MD - 09/30/2022 10:58 AM EDT Images from the original note were not included. IR PROCEDURE NOTE Procedure: CT-guided pelvic node biopsy. Indication for Procedure: Per Sonal MOLINA, Huber Mosher is a 67 y.o. male with PMH of new diffuse lymphadenopathy who presents to Interventional Radiology to undergo CT guided biopsy of either the retroperitoneal adenopathy or right external iliac node - location up to IR provider's discretion. Patient has a PMH of T2DM, HLD, hypothyroidism, with an elevated PSA w/ neative biopsy who presented to at the instruction of his PCP for imaging findings concerning for hydronephrosis and diffuseretroperitoneal lymphadenopathy. IR was consulted given concern for leukemia vs lymphoma. Procedure events and findings: After obtaining informed consent, pt was positioned supine on the CTtable. Initial non-contrast CT was obtained showing pelvic adenopathy as on prior CT. A site for bxwas chosen and identified on the skin with the assistance of the CT laser lights. Due to the painful nature of the procedure, patient received split doses of intravenous fentanyl from the IR nurse while pulse, pressure, and oxygen saturation were continuously monitored. The skin was marked and prepped, maximum sterile barrier technique was used throughout. Local anesthesia provided with 1% lidocaine. A 19 ga coaxial needle was directed to an enlarged node anterior to the right external iliac vessels with CT fluoro guidance. Five 20-gauge core biopsies were obtained, 3 submitted in formalin and 2 in saline. Post scan performed with no evidence of hematoma. Medications: Fentanyl 50 mcg IV, 1% Lidocaine <10ccs subcutaneous. Est Blood Loss: <5cc. Complications: No immediate. Impression: 1. Pelvic adenopathy as on prior CT. 2. CT-guided biopsy of enlarged node anterior to right external iliac vessels, multiple 20-gauge cores obtained. 3. Postbiopsy CT without evidence of complication. Resident/Fellow: None Attending: Araceli, Dr. Sparks performed this procedure. documented in this encounter ED Notes * Rodney Walker MD - 2022 9:45 PM EDT ED Attending Brief Note HPI: Huber Mosher is a 67 y.o. male who presents to the Emergency Department in transfer from [facility] with imaging (found in chart attachment), consistent with significant lymphadenopathyretroperitoneal and retrocrural, as well as bilateral hydronephrosis with dilated proximal ureters in the setting of a history of prostatitis, elevated PSA, status post biopsy nonmalignant. The patient also has right lower extremity significant swelling that has been present for about a month. He states that his PCP is evaluated that with ultrasound showing no DVT, roughly a week ago. He states that he has mild shortness of breath and sometimes feels winded, and has significant pain bilateral paraspinal/CVA. He feels that he has been drinking a lot more fluid, but his urine output has not increased correspondingly. He does not have dysuria or dark color to urine. He has been followed by , and was told that he may need stenting. History obtained from patient as well as chart Review of Systems Pertinent positives and negatives are included in the HPI, otherwise at least ten systems were reviewed and negative. Past Medical and Surgical Histories, Social History, Medications, Allergies were reviewed in the chart. Vitals: ED Triage Vitals [09/28/22 1606] BP: 123/71 Heart Rate: 83 Resp: 18 Temp: 36.5 ??C (97.7 ??F) Temp src: Temporal SpO2: 100 % O2 Device: RA O2 Flow Rate (L/min): n/a Physical Exam Gen: NAD, well appearing HEENT: atraumatic, OP clear Card: NSR, no MRG Resp: BBS clear Abd: S/NT/ND Extrem: no deformity, swelling, bilateral paraspinal but no midline tenderness Circ: intact pulses Skin: WD Neuro: Grossly intact, cognition intact ED Course: I have reviewed labs and imaging, images and available reports, and they are significant for: Hyponatremia, WALTER, CT read from outside hospital showing retro- Crear retroperitoneal and retrocrural lymphadenopathy as well as hydronephrosis bilaterally with proximal ureteral dilation. Prostate only mildly enlarged. Assessment and Plan: 67 y.o. male with significant lymphadenopathy in the setting of history of prostatitis as well as right lower extremity swelling x1 month. The patient also has acute kidney injury, with concern that this may represent lymphoma or possibly multiple myeloma. The patient will be admitted for evaluation and possible ureteral stenting. We have not obtained a second CAT scan, as the first 1 was obtained just this morning. He is not obviously dyspneic, but states that sometimes he is short of breath. Chest x-ray ordered, to corroborate bilateral pleural effusions from the CT read of this morning. In the setting of pleural effusions and lymphadenopathy, I think it is unlikely that this patient has a PE, but would not hesitate to obtain a DVT study. This patient lives alone, and has 2 sisters keep close tabs on him. It is also his birthday today Did this case involve critical care? No The visit findings, diagnosis, and care plan were discussed with the patient. Rodney Walker MD 09/28/224 * Maged Conrad MD - 2022 8:30 PM EDT ED Resident Note HPI: Huber Mosher is a 67 y.o. male with a history of elevated PSA, with unrevealing biopsies, andhyperlipidemia who presents to the Emergency Department bilateral lower back pain and swelling of the right lower extremity. These symptoms starting back in the spring with intermittent bilateral back pain which was fluctuating and not constant. About 1 month ago it became a constant pain, and at that time, his family member noted that his right leg seemed swollen. Upon inspection he noted it wasswollen to >2X the size of his left leg. He was brought to the ED after seeing his PCP for further workup and evaluation. ROS as per HPI Vitals: ED Triage Vitals [09/28/22 1606] BP: 123/71 Heart Rate: 83 Resp: 18 Temp: 36.5 ??C (97.7 ??F) Temp src: Temporal SpO2: 100 % O2 Device: RA O2 Flow Rate (L/min): n/a Physical Exam Cardiovascular: Rate and Rhythm: Normal rate and regular rhythm. Heart sounds: No murmur heard. No friction rub. No gallop. Pulmonary: Effort: Pulmonary effort is normal. Breath sounds: Normal breath sounds. No wheezing, rhonchi or rales. Abdominal: Palpations: Abdomen is soft. Tenderness: There is no abdominal tenderness. Musculoskeletal: General: Swelling present. Comments: Significant swelling of right lower extremity Neurological: General: No focal deficit present. Mental Status: He is alert and oriented to person, place, and time. ED Course: I have reviewed labs and imaging, images and available reports, and they are significant for: CBC - Hb: 9.6, Platelets: 507 BMP - BUN: 74, Creatinine: 5.8, GFR: 10, Sodium: 130, Potassium: 5.2 No orders to display Assessment and Plan: 67 y.o. male with with a history of elevated PSA, with unrevealing biopsies, and hyperlipidemia whopresents to the Emergency Department bilateral lower back pain and swelling of the right lower extremity. Workup revealed a GFR of 10, Creatinine of 5.8. CT Abdomen showing diffuse lymphadenopathy, possible R. hydronephrosis, and bilateral pleural effusions. Urology has seen here and does not see an urgent need for stenting but is recommending medicine admission for further workup. Medicine is currently seeing here and pending admission once seeing her. Signed out to: Maged Quarles MD Resident 09/28/22 3346 Associated attestation - Rodney Walker MD - 2022 11:09 PM EDT ED ATTENDING ATTESTATION See my note for additional details The patient was seen in conjunction with the resident physician. I have independently performed thekey portions of the history and physical exam. I have personally reviewed nursing notes, vital signs, and diagnostic studies including labs, imaging studies and EKGs. I have discussed the details of the case with the resident and agree with the assessment and plan as described in the resident's note, unless stated otherwise in my separate note. * Julio César Palomares MD - 2022 2:04 PM EDT EM attending brief outside phone call note: Huber Mosher is a 67 y.o. who I was called about from [employer] The patient will be evaluated in the Emergency Department for worsening renal failure (GFR 10 from 18, Cr of 5.7) in setting of work up for malignancy with adenopathy compressing kidney, may need stenting - Dr. Castañeda from urology notified, new b/l effusions as well Julio César Palomares MD 09/28/22 1406 documented in this encounter Miscellaneous Notes * Care Management Discharge - Ginette Jo RN - 10/03/2022 2:58 PM EDT CARE MANAGEMENT FINAL DISCHARGE NOTE Chart reviewed, care reviewed with primary team and at interdisciplinary rounds. Patient is medically ready for discharge to home, no needs. Needs for Transition of Care: Plan for discharge is: Home w/o Services Outpatient Agency/Support Group Needs: None Agency Referrals & Follow-up Care: follow-up as per discharge instructions Transportation: family or friend will provide Functional status prior to admission: Independent Home Environment: Others in the home: alone. Current Living Arrangements: home/apartment/condo. Accessibility Concerns:Patient live alone in a first floor apartment. 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 All are in agreement with plan. I have reviewed the Important Message from Medicare (IMM) with patient. Patient verbalizes understanding of right to appeal this discharge if feeling not medically ready. Offered a copy of this letter. Ginette Jo RN, CM Pager #: [phone] * Care Management - Ginette Jo RN - 10/03/2022 1:32 PM EDT OFFICE OF CARE MANAGEMENT PROGRESS NOTE LOS: Hospital Day 5 days Chart reviewed, care reviewed with primary team and at interdisciplinary rounds. Patient continues to meet inpatient level of care related to: urine output monitoring, labs, pain management, follow-up VD today. Decision Maker: Self Functional status prior to admission: Independent Home Environment: Others in the home: alone. Current Living Arrangements: home/apartment/condo. Accessibility Concerns: Patient live alone in a first floor apartment. Current Functional Ability: Assistive Person DME used at home: none DME Needed at Discharge: No Patient is insured through: Primary Insurance: MEDICARE Payor: MEDICARE / Plan: MEDICARE PART A & B / Product Type: *No Product type* / Secondary Insurance: AARP SUPPLEMENT Plan for discharge is: Home w/o Services Transportation: family or friend will provide Barriers to discharge: Denies needs/concerns at this time Plan going forward: Care Management will continue to follow and assist with discharge planning and coordination of care as indicated. Anticipated Date of Discharge: 10/04/2022 Ginette Jo RN, CM Pager #: [phone] * Plan of Care - Carlota Morgan RN - 10/03/2022 3:01 AM EDT OUTCOME EVALUATION NOTE: OUTCOME SUMMARY: A+O x4. VS as charted on RA. Walking independently and frequently throughout unit. Pt complained ofnew flank pain. Team paged and provider came to bedside. Pt given prn acetaminophen and hydromorphone for flank pain 4/10 with positive effect. Pt still voiding in urinal. Pt bladder scanned this am for 463 mL and then force voided 50 mL with PVR 370 mL. Will continue to monitor, assess for and address comfort needs, ensure safety, and notify team of any changes. PLAN MOVING FORWARD: Pain management Encourage repositioning and mobility as tolerated Monitor respiratory status Monitor I/O's Encourage ADL's Monitor BG Skin care and monitoring Encourage/support family involvement Discharge planning INDIVIDUALIZED FALL PREVENTION INTERVENTIONS: Patient-specific fall risk factors per assessment: [current deficits]: weakness, flank pain, RLE edema Assistance [level of assistance required for transfers and ambulation]: IND Supervision [direct monitoring required during toileting and ADLs]: Able to reliably summons for assistance; otherwise IND Surveillance [continuous indirect monitoring]: Purposeful rounding, room near nsg station, call light within reach, bed/chair alarm OFF, masimo on Patient-specific fall prevention interventions for sensory deficits provided, if applicable: As above CPG GOAL OUTCOME EVALUATION: Continue goals of care * Plan of Care - Veronica Meyers RN - 10/02/2022 4:48 PM EDT OUTCOME EVALUATION NOTE: OUTCOME SUMMARY: VS as charted, A&O x4, pleasant and cooperative w/ all aspects of care. Ambulating independently around unit. Voiding in urinal, bladder scanned this shift- see flowsheets. Medicated per eMAR, no acute changes this shift. Patient awaiting bilateral lower extremity duplex study planned for tomorrow. Will continue to monitor and notify team of changes. PLAN MOVING FORWARD: Safe d/c planning INDIVIDUALIZED FALL PREVENTION INTERVENTIONS: Patient-specific fall risk factors per assessment: [current deficits]: Unfamiliar environment Assistance [level of assistance required for transfers and ambulation]: Independent Supervision [direct monitoring required during toileting and ADLs]: Independent, able to reliably summon assistance Surveillance [continuous indirect monitoring]: Purposeful rounding, room near unit station, call hamilton within reach Patient-specific fall prevention interventions for sensory deficits provided, if applicable: [X] N/A CARE PLAN GOAL OUTCOME EVALUATION: * Plan of Care - Carlota Morgan RN - 10/02/2022 2:45 AM EDT OUTCOME EVALUATION NOTE: OUTCOME SUMMARY: A+O x4. VS as charted on RA. Walking independently and frequently throughout unit-some SOB and fatigue noted during activity. Voiding adequate amounts in urinal post toscano removal. Still having mild-mod pain with urination. Will continue to monitor, assess for and address comfort needs, ensure safety, and notify team of any changes. PLAN MOVING FORWARD: Pain management Encourage repositioning and mobility as tolerated Monitor respiratory status Monitor I/O's Encourage ADL's Monitor BG Skin care and monitoring Encourage/support family involvement Discharge planning INDIVIDUALIZED FALL PREVENTION INTERVENTIONS: Patient-specific fall risk factors per assessment: [current deficits]: weakness, RLE edema Assistance [level of assistance required for transfers and ambulation]: IND Supervision [direct monitoring required during toileting and ADLs]: Able to reliably summons for assistance Surveillance [continuous indirect monitoring]: Purposeful rounding, room near nsg station, call light within reach, bed/chair alarm OFF, masimo on Patient-specific fall prevention interventions for sensory deficits provided, if applicable: As above CPG GOAL OUTCOME EVALUATION: Continue goals of care * Plan of Care - Estefany Lawler RN - 10/01/2022 1:44 PM EDT OUTCOME EVALUATION NOTE: OUTCOME SUMMARY: Patient is A&O x4. VS as charted on RA. Medication given as ordered per MAY. Tele discontinued.Toscano removed at 1300, D/T void at 1700. BS monitored and covered as ordered. No acute events this shift. Will continue to monitor and notify team of any changes. PLAN MOVING FORWARD: Strict I/O daily weights Monitor BS Monitor labs Discharge planning INDIVIDUALIZED FALL PREVENTION INTERVENTIONS: Patient-specific fall risk factors per assessment: [current deficits]: Deconditioning Assistance [level of assistance required for transfers and ambulation]: Independent, appropriate safety awareness Supervision [direct monitoring required during toileting and ADLs]: Independent Surveillance [continuous indirect monitoring]: Purposeful rounding, room near nurses station, call hamilton with in reach Patient-specific fall prevention interventions for sensory deficits provided, if applicable: [X] N/A CARE PLAN GOAL OUTCOME EVALUATION: * Consult Note - Benita White MD - 10/01/2022 10:35 AM EDT Images from the original note were not included. UROLOGY CONSULT NOTE History of Present Illness: Huber Mosher is a 67 y.o. male seen by urology in the past for elevated PSA with negative biopsy who presents from his PCP with reports of a CT showing hydronephrosis as well as diffuse retroperitoneal lymphadenopathy and right lower extremity swelling. Patient reports that he has had off and on mild bilateral low back pain since early spring. He alsonotes recent intermittent swelling of the scrotum and right lower extremity. Denies any urinary symptoms. The patient was sent here after consultation through the transfer center for CT findings of diffuse retroperitoneal adenopathy, right lower extremity swelling/edema, hydronephrosis, elevated creatinine. Is also worth noting the patient has recently been diagnosed with a tentative diagnosis of multiple myeloma based on blood testing with a pending heme-onc consult. Interval Events: - s/p bilateral Tria 7Fx24 cm ureteral stents on 09/29 - s/p LN biopsy 09/30 - flank pain 03/15 maximum - Cr continues to downtrend - Toscano draining CYU - 09/29 UCx NG Past Medical/Surgical History: Past Medical History: Diagnosis Date Diabetes High blood pressure Hypothyroid Patient Active Problem List Diagnosis Code Status post cervical spinal fusion Z98.1 WALTER (acute kidney injury) N17.9 Past Surgical History: Procedure Laterality Date CATARACT REMOVAL WITH IMPLANT 2019 CT GUIDED BIOPSY LYMPH NODE(CHEST/ABD/PELVIS) 09/30/2022 CT Guided Biopsy Lymph Node (Chest/Abd/Pelvis) 09/30/2022 Vasile Sparks MD [facility] RAD CT SCAN HAND SURGERY Left 1997 Left thumb repair surgery INGUINAL HERNIA REPAIR 1955 as an infant PRO ALLOGRAFT FOR SPINE SURGERY ONLY MORSELIZED Bilateral 03/17/2022 ALLOGRAFT FOR SPINE SURGERY ONLY; MORSELIZED (WRVU *) performed by Bebe Hatfield MD at [facility] MAIN OR PRO ARTHRD ANT INTERDY CERVCL BELW C2 EA ADDL NTRSPC Bilateral 03/17/2022 ARTHRODESIS ANT INTERBDY CERVCL BELOW C2 EA ADDL INTRSPACE (WRVU 6.5) performed by Bebe Hatfield MD at [facility] MAIN OR PRO ARTHRODESIS, ANT INTERBODY,DECOMPRESSION; CERVICAL BELOW C2 Bilateral 03/17/2022 ARTHRODESIS, ANT INTERBODY,DECOMPRESSION; CERVICAL BELOW C2 (WRVU 25) performed by Bebe Hatfield MD at [facility] MAIN OR PRO INSERT BIOMCHN DEV INTERVERTEBRAL DSC SPC W/ARTHRD Bilateral 03/17/2022 INSERTION INTERBODY BIOMECH DEV TO INTERVEBRAL DISC SPACE, EA INTERSPACE (WRVU 4.25) performed by Bebe Hatfield MD at [facility] MAIN OR US GUIDED BIOPSY PROSTATE WITH URONAV FUSION 12/20/2021 US Guided Biopsy Prostate with Uronav Fusion 12/20/2021 [facility] RAD ULTRASOUND Physical Exam: Temp: [36 ??C (96.8 ??F)-36.9 ??C (98.4 ??F)] Heart Rate: -- Resp: [16-20] BP: (104-126)/(54-71) SpO2: [97 %-100 %] Heart Rate from SpO2: [74 bpm-87 bpm] General: No acute distress. Sitting in chair Abd: Soft, nontender, nondistended, no CVA tendernes. : Toscano with yellow urine in tubing, some sediment Labs: Recent Labs 10/01/22 0906 09/30/22 0019 09/29/22 0554 WBC 5.3 5.7 7.4 HGB 9.9* 8.2* 9.5* HCT 31.5* 25.7* 28.9* PLATELET 522* 431* 447* Recent Labs 10/01/22 0906 10/01/22 0009 09/30/22 1700 09/30/22 1218 09/30/22 0617 09/29/22 2309 NA 134* 135 135 132* 134* 133* 133* K 4.8 4.7 5.1* 5.6* 5.2* 5.7* 5.1* CL 103 103 106 105 104 108* 104 CO2 18* 18* 18* 12* 14* 12* 15* BUN 74* 74* 75* 75* 77* 75* 78* CREATININE 4.09* 4.12* 4.19* 4.67* 5.15* 5.29* 6.08* GLUCOSE 149 149 153 202* 112 104 81 CALCIUM 9.1 9.1 8.8 8.4* 8.9 8.6 8.4* MAGNESIUM 0.79 -- -- -- 0.84 0.82 PHOS 4.6* -- 6.1* 6.6* 6.8* 6.5* Estimated Creatinine Clearance: 18.3 mL/min (A) (based on SCr of 4.12 mg/dL (H)). Microbiology: Microbiology Results (Last 30 days) Procedure Component Value Units Date/Time Urine culture Urine [[id number]] Collected: 09/29/222244 Lab Status: Final result Specimen: Urine Updated: 09/30/22 172 Urine Culture No growth (Less than 1,000 cfu/ml). Imagin09/30/[address] biopsy Impression: 1. Pelvic adenopathy as on prior CT. 2. CT-guided biopsy of enlarged node anterior to right external iliac vessels, multiple 20-gauge cores obtained. 3. Postbiopsy CT without evidence of complication. Assessment: Huber Mosher is a 67 y.o. with a history of elevated PSA with a negative biopsy. He presents with new diagnosis of MM, and noted to have WALTER with Cr of 5.8 and is now s/p bilateral Tria stents.S/p lymph node biopsy on 09/30/22. His Cr is continuing to downtrend appropriately and he is making adequate urine with Toscano in place. As discussed with Dr. Castañeda this morning, will request outpatient follow up with Dr. Juarez in 2-4 wks. Recommend BLE Duplex to evaluate his BLE edema. Recommendations: - BLE Duplex - Toscano per primary team - when Toscano is removed, recommend close monitoring of PVRs to ensure adequate emptying - Outpatient f/u requested in 2-4 weeks to discuss PSA and stent plan - F/U pathology Plan discussed with Dr. White and Dr. Castañeda, Urology attendings. Sol Shanks MD 10/01/2022 [id number] I have seen and examined the patient and reviewed the history documented and I agree with the details as written. I have reviewed the available, pertinent laboratory data and imaging. The assessment and plan were formulated in discussion with me and I agree with them as documented. Benita White MD * Plan of Care - Mariaelena Rain RN - 10/01/2022 2:48 AM EDT OUTCOME EVALUATION NOTE: OUTCOME SUMMARY: VS as charted. Eyes closed between care. NSR on tele. MIVF stopped, given 60mg IVP lasix w/ good effect. I/O as charted, urine clearing this shift, toscano maintained. BG consistently elevated, startedon SSI. Pt expressing gratitude for care but concern r/t cardiac diagnosis. Emotional support, education provided as able. Making needs known, participating in plan of care as able. PLAN MOVING FORWARD: Diuresis, strict I/O, daily weights Monitor labs INDIVIDUALIZED FALL PREVENTION INTERVENTIONS: Patient-specific fall risk factors per assessment: [current deficits]: Deconditioning Assistance [level of assistance required for transfers and ambulation]: Independent, appropriate safety awareness Supervision [direct monitoring required during toileting and ADLs]: Independent Surveillance [continuous indirect monitoring]: Purposeful rounding Patient-specific fall prevention interventions for sensory deficits provided, if applicable: [X] N/A CARE PLAN GOAL OUTCOME EVALUATION: * Consult Note - Sidney Maldonado MD - 09/30/2022 10:38 PM EDT Images from the original note were not included. Formerly [facility] [place] [address] [address] INPATIENT CARDIOLOGY CONSULT NOTE Date of Consultation: 09/30/2022 Admit Date: 2022 Place of Service: [facility] Responsible Attending: Daphnie Zamora MD Hospital Day 2 days Reason for Consult: Low EF Active Problems: Active Hospital Problems Diagnosis WALTER (acute kidney injury) Resolved Hospital Problems No resolved problems to display. HPI: Huber Mosher is a 67 y.o. male with PMH of T2DM, HLD, hypothyroidism, elevated PSA w/ neative biopsy who presented to the ED on 09/28 after the patient was instructed to come after a CT scan revealed hydronephrosis and diffuse retroperitoneal lymphadenopathy that is concerning for lymphoma. Thisscan was done for right lower extremity swelling which began about 1-2 months ago along with a negative LE duplex a week or two ago. He underwent a CT biopsy earlier today to investigate malignancy. Labs on arrival demonstrated a uric acid of 11 and so there was initial concern for TLS and he was given rasburicase and now is only on allopurinol for TLS ppx. He was also noted to have an WALTER with a Cr of 6-6.5 and we underwent placement of bilateral ureteral stents yesterday with improvement in his Cr, now 4.67. A TTE was obtained today to obtain baseline function which demonstrated a LVEF of 27% and so cardiology was consulted. At baseline patient is a never smoker with DM2 on insulin. He has a family hx of CHF with both parents but they were in their 70-80's. During COV patient was walking 3-4 miles a day. He had cervical surgery back in 03/2022 and has limited movement since then but that is only because his muscles hurt. He has never had any CP, SOB, ROBERTS, palpitations or any other cardiac sxs. His only LE swelling in his right lower extremity. Review of Systems: 11 point ROS is either negative or per HPI Past Medical History: Past Medical History: Diagnosis Date Diabetes High blood pressure Hypothyroid Past Surgical History: Past Surgical History: Procedure Laterality Date CATARACT REMOVAL WITH IMPLANT 2019 CT GUIDED BIOPSY LYMPH NODE(CHEST/ABD/PELVIS) 09/30/2022 CT Guided Biopsy Lymph Node (Chest/Abd/Pelvis) 09/30/2022 Vasile Sparks MD [facility] RAD CT SCAN HAND SURGERY Left 1997 Left thumb repair surgery INGUINAL HERNIA REPAIR 1954 as an infant PRO ALLOGRAFT FOR SPINE SURGERY ONLY MORSELIZED Bilateral 03/17/2022 ALLOGRAFT FOR SPINE SURGERY ONLY; MORSELIZED (WRVU *) performed by Bebe Hatfield MD at [facility] MAIN OR PRO ARTHRD ANT INTERDY CERVCL BELW C2 EA ADDL NTRSPC Bilateral 03/17/2022 ARTHRODESIS ANT INTERBDY CERVCL BELOW C2 EA ADDL INTRSPACE (WRVU 6.5) performed by Bebe Hatfield MD at [facility] MAIN OR PRO ARTHRODESIS, ANT INTERBODY,DECOMPRESSION; CERVICAL BELOW C2 Bilateral 03/17/2022 ARTHRODESIS, ANT INTERBODY,DECOMPRESSION; CERVICAL BELOW C2 (WRVU 25) performed by Bebe Hatfield MD at [facility] MAIN OR PRO INSERT BIOMCHN DEV INTERVERTEBRAL DSC SPC W/ARTHRD Bilateral 03/17/2022 INSERTION INTERBODY BIOMECH DEV TO INTERVEBRAL DISC SPACE, EA INTERSPACE (WRVU 4.25) performed by Bebe Hatfield MD at [facility] MAIN OR US GUIDED BIOPSY PROSTATE WITH URONAV FUSION 12/20/2021 US Guided Biopsy Prostate with Uronav Fusion 12/20/2021 [facility] RAD ULTRASOUND Allergies: Allergies Allergen Reactions Amoxicillin Rash Penicillin Other reaction(s): Unknown Out-Patient Medications: Medications Prior to Admission Medication Sig Dispense Refill Last Dose fluorometholone (FML Forte) 0.25 % Drops, Suspension 1 drop Every 12 hours. traMADoL (Ultram) 50 mg Tablet TAKE 1 TABLET BY MOUTH EVERY 8 HOURS NEEDED FOR SEVERE ACUTE PAIN tamsulosin (Flomax) 0.4 mg Capsule Take 1 capsule by mouth daily. 90 tablet 3 Lantus Solostar U-100 Insulin 100 unit/mL (3 mL) pen 16 Units daily. Synthroid 137 mcg Tablet Take 137 mcg by mouth daily. lisinopriL (Zestril) 10 mg Tablet Take 10 mg by mouth daily. metFORMIN (Glucophage) 500 mg Tablet Take 1,000 mg by mouth 2 times daily (with meals). simvastatin (Zocor) 40 mg Tablet Take 40 mg by mouth nightly. In-Patient Medications: sevelamer carbonate 800 mg Oral TID WC cholecalciferol 1,000 Units Oral Daily insulin lispro 1-4 Units Subcutaneous TID AC sodium bicarbonate 1,300 mg Oral TID heparin (porcine) 5,000 Units Subcutaneous Q8H SILVER polyethylene glycoL (MIRALAX) oral powder 17 g Oral Daily pravastatin 10 mg Oral QPM allopurinoL 200 mg Oral Daily sodium zirconium cyclosilicate 10 g Oral Daily sodium chloride 0.9 % (flush) 5 mL Intravenous BID senna-docusate 2 tablet Oral BID levothyroxine 150 mcg Oral Daily Family and Social History: No family history on file. Social History Socioeconomic History Marital status: Single Spouse name: Not on file Number of children: Not on file Years of education: Not on file Highest education level: Not on file Occupational History Not on file Tobacco Use Smoking status: Never Smokeless tobacco: Never Substance and Sexual Activity Alcohol use: Not Currently Drug use: Not Currently Sexual activity: Not on file Other Topics Concern Not on file Social History Narrative Not on file Social Determinants of Health Financial Resource Strain: Not on file Food Insecurity: Not on file Transportation Needs: Not on file Physical Activity: Not on file Housing Stability: Not on file Last value Range last 8 hrs Temperature Temp: 36.9 ??C (98.4 ??F) Temp: [36.9 ??C (98.4 ??F)] Heart Rate Heart Rate: 80 Heart Rate: -- Blood Pressure BP: 105/60 BP: (105)/(60) Respiratory Rate Resp: 20 Resp: [20] SpO2 SpO2: 100 % SpO2: [100 %] I's and O's: Intake/Output Summary (Last 24 hours) at 09/30/20222237 Last data filed at 09/30/20222009 Gross per 24 hour Intake 5276 ml Output 3051 ml Net 2225 ml Weights: Wt & BMI By Encounter Date Flowsheet Row ED to Hosp-Admission (Current) from 2022 in Medical Specialties Unit Level 2 Wing C at [facility] Admission (Discharged) from 03/17/2022 in Med Surg Unit at [facility] Weight 87.8 kg (193 lb 8 oz) 1 09/29/2022 0056 84.4 kg (186 lb) 1 03/17/2022 0629 BMI 26.98 1 09/29/2022 0056 25.94 1 03/17/2022 0629 Physical Exam: General: Pleasant male in no acute distress Neck: JVP up to level of earlobe at 90 degrees Cardiac: Regular rate and rhythm, S1/S2 auscultated. No murmurs, rubs, or gallops appreciated Respiratory: No increased work of breathing, diminished breath sounds bilaterally at bases Extremities: Warm, 2-3+ LE edema on right, trace-1+ on the left. Scrotum significantly swollen Neuro: Alert and oriented Skin: Warm, dry Psych: Normal affect Labs: CBC: Recent Labs 09/30/22 0019 09/29/22 0554 09/28/22 1710 WBC 5.7 7.4 8.7 HGB 8.2* 9.5* 9.6* PLATELET 431* 447* 507* Chemistry: Recent Labs 09/30/22 1700 09/30/22 1218 09/30/22 0617 NA 132* 134* 133* K 5.6* 5.2* 5.7* CL 105 104 108* CO2 12* 14* 12* BUN 75* 77* 75* CREATININE 4.67* 5.15* 5.29* GLUCOSE 202* 112 104 Recent Labs 09/30/22 1700 09/30/22 1218 09/30/22 0617 09/29/22 2309 09/29/22 1724 CALCIUM 8.4* 8.9 8.6 8.4* 9.0 MAGNESIUM -- -- 0.84 0.82 0.88 PHOS 6.1* 6.6* 6.8* 6.5* 6.5* LFT's: Recent Labs 09/30/22 0617 09/29/22 0554 BILITOT 0.4 0.4 BILIDIR 0.1 0.2 ALBUMIN 2.6* 3.0* ALKPHOS 56 58 ALT 11 12 AST 19 21 Coags: Recent Labs 09/30/22 1218 PT 15.4* INR 1.3 PTT 29 ECG Results for orders placed or performed during the hospital encounter of 09/28/22 EKG 12 Lead Result Value Ref Range Ventricular rate 85 BPM Atrial Rate 85 BPM P-R Interval 124 ms QRS Duration 98 ms Q-T Interval 388 ms QTC Calculated (Bezet) 461 ms Calculated P [place] 48 degrees Calculated R [place] 56 degrees Calculated T [place] -144 degrees INTERPRETATION Normal sinus rhythm ST & T wave abnormality, consider lateral ischemia Prolonged QT Abnormal ECG No previous ECGs available CT demonstrating significant LAD disease Echocardiogram 09/30/22 Wall thickness is normal. Left ventricular systolic [...] below. No prior study available for comparison. Assessment: Huber Mosher is a 67 y.o. male with PMH of T2DM, HLD, hypothyroidism, elevated PSA w/ neative biopsy who [place] [facility] [place] and was subsequently found to have a reduced LVEFto 27%. I expect that patient has a reduced EF based on prior ischemia and almost certain CAD. On reviewingthe TTE images, patient has akinesis in the LAD territory and has significant calcium in the same artery on his CT that prompted admission (see CT above). Given patient's lack of symptoms this is likely chronic and patient is not having an ACS event now. Patient will need an ischemic eval (likely LHC) but this is not urgent and can be done either inpatient (once Cr stabilizes) or as an outpatient. In the meantime, we will start optimizing his meds. Patient is significant volume overloaded. This is based on my exam (elevated JVP, diminished breathsounds at bases, swollen scrotum) \, imaging (bilateral pleural effusions on CT), and TTE (elevatedRV pressures at 69mmHg and moderate to severe MR that appears functional) and therefore patient needs to be kept net even/ even diuresed. I know that primary team is concerned about post-ATN diuresisand there was initial concern for TLS but patient has had several days of continuous fluids with anLVEF of 27% and his uric acid has now been consistently normal over the past 36 hrs. Recommendations: #HFrEF: LVEF 27% #Likely CAD #Moderate to severe MR #Moderate TR -Start aspirin and high intensity statin ----Check lipids -Diurese the patient with 60mg IV lasix now (lasix naive but has significantly elevated Cr). -Stop maintenance fluids. Patient is eating and drinking appropriately. -Strict I/O and daily weights. Please keep K>4 and Mg >1. -Patient will likely need ischemic eval (likely LHC) when Cr is more stable. This is not urgent andcan be done inpatient or outpatient -Holding off on GDMT for now given WALTER and acute HF exacerbation. Would likely want to start arb/beta chel when patient is better optimized. -He will need f/u in [place] for cardiology as an outpatient with Dr. Rudolph or Dr. Rodriguez (both cardiologists in the area). Case to be staffed with cardiology consult attending, recommendations not final until signed by attending. x Consult service will continue to follow patient. Recommendations are above, please page if further consultation required. Sameer Lenz Operations Program Manager [phone] Cardiology Attending Attestation/Addendum: Please see Sameer Lenz MD's note for details of the patient history and data. I have discussed, independently reviewed the pertinent diagnostic information, and agree with the principal findings as documented in the History, Physical Findings, Assessment and Plan of Care. The assessment and plan were formulated in discussion with me. No anginal chest pain. Some recent dyspnea on exertion. No orthopnea or PND although describes gurgling sensation when supine recently. Reviewed echo and CT findings with patient. ASCVD risk factors include DM2, + CAC. Volume overloaded on exam. WALTER. HFrEF. Ongoing lymphadenopathy work-up. - Ongoing diuresis per primary team. - Agree with statin and aspirin. - Will need ischemic evaluation following resolution of WALTER. Will likely pursue LHC given CAC and regional wall motion abnormality. Alternative to significant ASCVD would be a stress cardiomyopathy but would be a diagnosis of exclusion. - Hold off of BB, ARB, and other GDMT for now given WALTER. Cardiology Consults will continue to follow, but will not plan on seeing on Monday but please feel free to contact the Cardiology consult service if any urgent issues arise as will be happy to revisit. Sidney Maldonado MD, [facility] Staff Gunite Nozzle Operator * Plan of Care - Veronica Meyers, RN - 09/30/2022 4:24 PM EDT OUTCOME EVALUATION NOTE: OUTCOME SUMMARY: VS as charted, A&O x4, pleasant and cooperative with all care provided. Returned to unit from inguinal lymph node biopsy this AM. Toscano remains in place, draining yellow-pink tinged urine. mIVF running continuously per eMAR, one time IVF bolus given per eMAR d/t post obstructive diuresis. Bedside ECHO performed this afternoon. Went for a walk around the unit w/ this RN, mobilizing as able. Denies pain on assessment. Will continue to monitor and notify team of changes. PLAN MOVING FORWARD: Safe d/c planning INDIVIDUALIZED FALL PREVENTION INTERVENTIONS: Patient-specific fall risk factors per assessment: [current deficits]: Unfamiliar environment, post-operative Assistance [level of assistance required for transfers and ambulation]: SBA Supervision [direct monitoring required during toileting and ADLs]: Hands on Surveillance [continuous indirect monitoring]: Purposeful rounding, room near unit station, call hamilton within reach Patient-specific fall prevention interventions for sensory deficits provided, if applicable: [X] N/A CARE PLAN GOAL OUTCOME EVALUATION: * Consult Note - Trevon Fair MD - 09/30/2022 8:53 AM EDT Images from the original note were not included. UROLOGY CONSULT NOTE History of Present Illness: Huber Mosher is a 67 y.o. male seen by urology in the past for elevated PSA with negative biopsy who presents from his PCP with reports of a CT showing hydronephrosis as well as diffuse retroperitoneal lymphadenopathy and right lower extremity swelling. Patient reports that he has had off and on mild bilateral low back pain since early spring. He alsonotes recent intermittent swelling of the scrotum and right lower extremity. Denies any urinary symptoms. The patient was sent here after consultation through the transfer center for CT findings of diffuse retroperitoneal adenopathy, right lower extremity swelling/edema, hydronephrosis, elevated creatinine. Is also worth noting the patient has recently been diagnosed with a tentative diagnosis of multiple myeloma based on blood testing with a pending heme-onc consult. Interval Events: - s/p bilateral Tria 7Fx24 cm ureteral stents - Flank pain gone this morning - Cr 5.29 from 6.08 - yellow urine in toscano tubing Past Medical/Surgical History: Past Medical History: Diagnosis Date Diabetes High blood pressure Hypothyroid Patient Active Problem List Diagnosis Code Status post cervical spinal fusion Z98.1 WALTER (acute kidney injury) N17.9 Past Surgical History: Procedure Laterality Date CATARACT REMOVAL WITH IMPLANT 2019 HAND SURGERY Left 1997 Left thumb repair surgery INGUINAL HERNIA REPAIR 1955 as an infant PRO ALLOGRAFT FOR SPINE SURGERY ONLY MORSELIZED Bilateral 03/17/2022 ALLOGRAFT FOR SPINE SURGERY ONLY; MORSELIZED (WRVU *) performed by Bebe Hatfield MD at [facility] MAIN OR PRO ARTHRD ANT INTERDY CERVCL BELW C2 EA ADDL NTRSPC Bilateral 03/17/2022 ARTHRODESIS ANT INTERBDY CERVCL BELOW C2 EA ADDL INTRSPACE (WRVU 6.5) performed by Bebe Hatfield MD at [facility] MAIN OR PRO ARTHRODESIS, ANT INTERBODY,DECOMPRESSION; CERVICAL BELOW C2 Bilateral 03/17/2022 ARTHRODESIS, ANT INTERBODY,DECOMPRESSION; CERVICAL BELOW C2 (WRVU 25) performed by Bebe Hatfield MD at [facility] MAIN OR PRO INSERT BIOMCHN DEV INTERVERTEBRAL DSC SPC W/ARTHRD Bilateral 03/17/2022 INSERTION INTERBODY BIOMECH DEV TO INTERVEBRAL DISC SPACE, EA INTERSPACE (WRVU 4.25) performed by Bebe Hatfield MD at [facility] MAIN OR US GUIDED BIOPSY PROSTATE WITH URONAV FUSION 12/20/2021 US Guided Biopsy Prostate with Uronav Fusion 12/20/2021 [facility] RAD ULTRASOUND Social History: Social History Socioeconomic History Marital status: Single Spouse name: None Number of children: None Years of education: None Highest education level: None Occupational History None Tobacco Use Smoking status: Never Smokeless tobacco: Never Substance and Sexual Activity Alcohol use: Not Currently Drug use: Not Currently Sexual activity: None Other Topics Concern None Social History Narrative None Social Determinants of Health Financial Resource Strain: Not on file Food Insecurity: Not on file Transportation Needs: Not on file Physical Activity: Not on file Housing Stability: Not on file Family History: No family history on file. Review of Systems: 12 point review of systems performed and negative except as mentioned in HPI Medications: No current facility-administered medications on file prior to encounter. Current Outpatient Medications on File Prior to Encounter Medication Sig Dispense Refill fluorometholone (FML Forte) 0.25 % Drops, Suspension 1 drop Every 12 hours. traMADoL (Ultram) 50 mg Tablet TAKE 1 TABLET BY MOUTH EVERY 8 HOURS NEEDED FOR SEVERE ACUTE PAIN tamsulosin (Flomax) 0.4 mg Capsule Take 1 capsule by mouth daily. 90 tablet 3 Lantus Solostar U-100 Insulin 100 unit/mL (3 mL) pen 16 Units daily. Synthroid 137 mcg Tablet Take 137 mcg by mouth daily. lisinopriL (Zestril) 10 mg Tablet Take 10 mg by mouth daily. metFORMIN (Glucophage) 500 mg Tablet Take 1,000 mg by mouth 2 times daily (with meals). simvastatin (Zocor) 40 mg Tablet Take 40 mg by mouth nightly. Physical Exam: Temp: [36.2 ??C (97.2 ??F)-36.9 ??C (98.4 ??F)] Heart Rate: [69-81] Resp: [14-22] BP: (94-127)/(52-78) SpO2: [94 %-99 %] Heart Rate from SpO2: [69 bpm-86 bpm] General: No acute distress. Abd: Soft nontender nondistended, no CVA tendernes. : Toscano with yellow urine in tubing, some sediment Extremities: Pitting edema to the right lower extremity Labs: Recent Labs 09/30/22 0617 09/30/22 0019 09/29/22 2309 09/29/22 1724 09/29/22 1146 09/29/22 0554 09/28/22 1710 WBC -- 5.7 -- -- -- 7.4 8.7 HGB -- 8.2* -- -- -- 9.5* 9.6* PLATELET -- 431* -- -- -- 447* 507* NA 133* -- 133* 131* < > 131* 130* K 5.7* -- 5.1* 5.2* < > 5.0 5.2* CL 108* -- 104 103 < > 99 101 CO2 12* -- 15* 17* < > 16* 16* BUN 75* -- 78* 81* < > 76* 74* CREATININE 5.29* -- 6.08* 6.31* < > 6.07* 5.80* CALCIUM 8.6 -- 8.4* 9.0 < > 8.5 9.0 MAGNESIUM 0.84 -- 0.82 0.88 < > 0.83 -- < > = values in this interval not displayed. Component Value Date/Time SPGRAVITYUA 1.012 09/28/20221835 PHUADIP 5.5 09/28/20221835 PROTEINUADIP Negative 2022 1836 GLUCOSEU Negative 2022 1836 KETONESUA Negative 2022 1836 UROBILIUADIP Normal 2022 1836 BLOODUADIP Negative 2022 1836 NITRATEUA Negative 2022 1836 LEUKOESTERUA Negative 2022 1836 BILIRUBINUA Negative 2022 1836 Microbiology: None Imaging: Assessment: Huber Mosher is a 67 y.o. with a history of elevated PSA with a negative biopsy. He presents with new diagnosis of MM, and noted to have WALTER with Cr of 5.8 and is now s/p bilateral Tria stents. His Cr is downtrending appropriately and he is making adequate urine with Toscano in place. Long termstent plan to be discussed with Dr. Castañeda. He is otherwise set to undergo lymph node biopsy today. Recommendations: - Maintain Toscano until Cr stabilizes - Stent plan/outpatient plan TBD pending clinical course - F/U pathology Trevon Fair MD * Plan of Care - Mariaelena Rain RN - 09/30/2022 4:48 AM EDT OUTCOME EVALUATION NOTE: OUTCOME SUMMARY: VS as charted. Pt to OR around 2100, returned around 0015 with toscano in situ. Urine output initially clear, gradually developed dark pink w/ clots, team/urology aware. I/O as charted, MIVF maintained. BG initially 59 when transferred to OR, 94 on return. NPO for biopsy today. Making needs known, par ticipating in plan of care as able. PLAN MOVING FORWARD: Monitor UOP, toscano in place NPO for biopsy Ongoing emotional support INDIVIDUALIZED FALL PREVENTION INTERVENTIONS: Patient-specific fall risk factors per assessment: [current deficits]: Post op Assistance [level of assistance required for transfers and ambulation]: SBA Supervision [direct monitoring required during toileting and ADLs]: Arm's reach Surveillance [continuous indirect monitoring]: Purposeful rounding, bed alarm Patient-specific fall prevention interventions for sensory deficits provided, if applicable: [X] N/A CARE PLAN GOAL OUTCOME EVALUATION: * Op Note - Pardeep Torres MD - 09/29/2022 10:48 PM EDT [facility] [place] Patient Name: Huber Mosher : [id number] MR#: [id number] Case Date: 09/29/2022 Surgeon: Surgeon(s) and Role: * Vasile Castañeda MD - Primary * Pardeep Torres MD - Resident - Assisting Preoperative diagnosis: Bilateral ureteral obstruction Postoperative diagnosis: Bilateral ureteral obstruction Procedure(s) (LRB): CYSTO, STENT PLACEMENT (WRVU 2.82) (Bilateral) Findings: bilateral hydronephrosis with narrowing at the level of mid-ureter on retrograde, no filling defect bilaterally, left upper tract urine with some debris, sent for culture, uncomplicated placement of bilateral 7F x 24 cm Tria ureteral stents Plan: - Toscnao until Cr down trends - stent plan TBD Anesthesia: General Estimated Blood Loss: Specimens removed during surgery: left upper tract urine for culture Drains: bilateral 7F x 24 cm Tria ureteral stents, 14Fr Toscano Surgical Closure: no incision Disposition: awakened from anesthesia, extubated and taken to the recovery room in a stable condition, having suffered no apparent untoward event. Condition: doing well without problems (Please see the Surgical Encounter Summary for any Implant and Specimen details pertinent to this patient.) HPI/Surgical Indications: Huber Mosher is a 67 y.o. with a history of elevated PSA with a negative biopsy. He presents with new diagnosis of MM, and noted to have WALTER with Cr of 5.8. Review of his CT scan from this morning shows bilateral moderate hydroureteronephrosis with perinephric fat stranding. The patient does not have any CVAT or abdominal tenderness, but does have WALTER which is likely multifactorial. Given the concern for obstructive WALTER from bilateral ureteral obstruction in setting of RP adenopathy, recommend bilateral ureteral stent placement. Patient should be kept NPO in preparation for procedure. OK for anticoagulation if needed for LE swelling and concern for DVT. Also recommend biopsy of RP node for tissue diagnosis. Patient booked and consented. No site marking as procedure bilateral. Procedure Description: The patient was identified in [...] identity and planned procedure. Preoperative antibiotics were administered A 22 Fr rigid cystoscope was inserted into the bladder. 360 degree cystoscopy revealed a normal appearing bladder, without any tumors, mucosal lesions or stones. UO's were orthotopic bilaterally. Next a Pollack catheter was inserted into the right UO and advanced to the level of renal pelvis, revealing hydronephrosis with narrowing at the level of mid-ureter on retrograde. No filling defect was noted. A glidewire was inserted via the pollack catheter and noted to be within the dilated renal pelvis on fluoroscopy. The Pollack catheter was then removed and a 7 Fr by 24 cm double-J stent was passed over the wire. The proximal coil was visualized on fluoroscopy to be within the renal pelvis, and the distal coil was seen with direct visualization in the bladder. Same procedure was performed onthe contralateral side, retrograde pyelogram showed. Left upper tract urine with some debris, whichsent for culture. The bladder was emptied. The cystoscope was removed. The patient tolerated the procedure well and was awakened from anesthesia with no adverse events. The patient was taken to the recovery area in stable condition. Dr. Castañeda, the attending surgeon, was present for the entire procedure. Surgical Infection Prevention Bundle Used? No Associated attestation - Vasile Castañeda MD - 10/01/2022 7:50 PM EDT Attestation: Case Date: 09/29/2022 I performed the procedure with the assistance of the resident. I performed or directly supervised all critical aspects. Notes: bilateral hydronephrosis with narrowing at the level of mid-ureter on retrograde, no filling defectbilaterally, left upper tract urine with some debris, sent for culture, uncomplicated placement of bilateral 7F x 24 cm Tria ureteral stents VASILE CASTAÑEDA MD 10/01/2022 * Plan of Care - Shruthi León RN - 09/29/2022 6:36 PM EDT OUTCOME EVALUATION NOTE: OUTCOME SUMMARY: Patient is a/ox4. Denies chest pain, nausea and SOB. Denies pain. Pt NPO for stents today, this hasyet to happen. Remains on fluids. Pt labs checked frequently see trends. Pt placed on tele for highK, remains in NSR 80s to 90s. Pt will have a biopsy tomorrow morning at 10am in CT. Ambulating in [place]. Swelling to RLE. Voiding small amounts in urinal see I/O. Able to make needs known. Will continue to monitor Pt home controlled meds in non tamper bag in Drawer. Paper work filled out by this RN PLAN MOVING FORWARD: Stents, Biopsy, Monitor lytes, Fluids, VS INDIVIDUALIZED FALL PREVENTION INTERVENTIONS: Patient-specific fall risk factors per assessment: [current deficits]: IV, Weakness Assistance [level of assistance required for transfers and ambulation]: IND Supervision [direct monitoring required during toileting and ADLs]: IND Surveillance [continuous indirect monitoring]: DILAN Thornton, hourly rounding Patient-specific fall prevention interventions for sensory deficits provided, if applicable: [X] N/A CARE PLAN GOAL OUTCOME EVALUATION: Problem: Adult Inpatient Plan of Care Goal: Plan of Care Review 09/29/20221835 by Shruthi León, RN Outcome: Ongoing (Interventions Implemented as Appropriate) 09/29/20221832 by Shruthi León RN Outcome: Ongoing (Interventions Implemented as Appropriate) * Consult Note - Reinaldo Barron MD - 09/29/2022 12:59 PM EDT Hypertension-Nephrology Consultation Huber Mosher [id number] ID: Huber Mosher is 67 y.o. yo male requiring inpatient consultation for WALTER at the request of Dr. Zamora. Past Medical History: T2DM, HLD, hypothyroidism, elevated PSA w/ neative biopsy, hx cervical decompression in March 2022 History of Present Illness: Briefly, pt with the above comorbidities presents to the hospital with new retroperieneal lymphadenopathy concerning for hematological malignancy c/b left hydronephrosis and TLS requiring rasburicase. Nephrology was consulted for WALTER. He was relatively healthy until August when he noticed unilateral right leg swelling. This prompted further workup with imaging and additional lab tests; it was DVT negative. Most recently he has felt SOB. NO chest pain. He has felt constipated. Feels he's been urinating/fully voiding, no changes in urinary habits that he's noticed. Additionally, he's had some back pain for which he's been taking ibuprofen over the past few weeks. In December 2021 his PSA was also elevated which prompted Prostate biopsy which was negative for malignancy. Review of Systems: Full ROS performed. All positive symptoms noted in HPI. Family History: No family history on file. Social History: Social History Socioeconomic History Marital status: Single Spouse name: Not on file Number of children: Not on file Years of education: Not on file Highest education level: Not on file Occupational History Not on file Tobacco Use Smoking status: Never Smokeless tobacco: Never Substance and Sexual Activity Alcohol use: Not Currently Drug use: Not Currently Sexual activity: Not on file Other Topics Concern Not on file Social History Narrative Not on file Social Determinants of Health Financial Resource Strain: Not on file Food Insecurity: Not on file Transportation Needs: Not on file Physical Activity: Not on file Housing Stability: Not on file Physical Examination: Last value 24 Hour Temperature Range Temp: [36.5 ??C (97.7 ??F)-36.9 ??C (98.4 ??F)] 12 Hour Heart Rate Range Heart Rate: -- 24 Hour Blood Pressure Range BP: (110-128)/(67-79) Respiratory Rate Resp: 18 SpO2 SpO2: 95 % Body mass index is 26.99 kg/m??. General: Appears well overall today, not in distress. HEENT: EOM intact, sclera clear, mucous membranes moist. CV: S1 & S2 audible, no MGR. Resp: CTAB, breathing comfortably on room air. Abd: Soft, non-tender, non-distended. Ext: 2+ edema in the right lower extremity Skin: No rashes or lesions. Neuro: Alert and oriented, no focal deficits. Psych: Pleasant and calm, conversational attention is intact. sodium bicarbonate 1,300 mg Oral TID heparin (porcine) 5,000 Units Subcutaneous Q8H [facility] polyethylene glycoL (MIRALAX) oral powder 17 g Oral Daily pravastatin 10 mg Oral QPM allopurinoL 150 mg Oral Once [START ON 09/30/2022] allopurinoL 200 mg Oral Daily sodium zirconium cyclosilicate 10 g Oral Daily sodium chloride 0.9 % (flush) 5 mL Intravenous BID senna-docusate 2 tablet Oral BID Uric Acid Rasburicase Level - MAR Order Reminder NOT APPLICABLE Once levothyroxine 150 mcg Oral Daily Allergies Allergen Reactions Amoxicillin Rash Penicillin Other reaction(s): Unknown Lab Results Component Value Date CREATININE 6.53 (H) 09/29/2022 CREATININE 6.07 (H) 09/29/2022 CREATININE 5.80 (H) 2022 ESTGFR 9 (L) 09/29/2022 ESTGFR 9 (L) 09/29/2022 ESTGFR 10 (L) 2022 CO2 17 (L) 09/29/2022 CO2 16 (L) 09/29/2022 CO2 16 (L) 2022 NA 129 (L) 09/29/2022 NA 131 (L) 09/29/2022 NA 130 (L) 2022 K 5.8 (H) 09/29/2022 K 5.0 09/29/2022 K 5.2 (H) 2022 Lab Results Component Value Date HGB 9.5 (L) 09/29/2022 Lab Results Component Value Date CALCIUM 8.5 09/29/2022 CALCIUM 8.5 09/29/2022 CALCIUM 9.0 2022 PHOS 6.2 (H) 09/29/2022 PHOS 6.2 (H) 09/29/2022 PHOS 6.0 (H) 2022 Lab Results Component Value Date URICACID 7.7 09/29/2022 URICACID 8.8 (H) 09/29/2022 URICACID 11.3 (H) 2022 UA appears bland Additional Studies: SPEP on admission remarkable for possible paraprotein, immunofixation in process CTCAP shows extensive adenopathy in the chest, abdomen and pelvis suspicious for a lymphoma. There is bilateral hydronephrosis in the setting of retroperitoneal lymphadenopathy. There are also bilateral pleural fluid collections. Initial urine studies bland. Summary: Huber Mosher is 67 y.o. yo male requiring inpatient consultation for WALTER. Medical comorbidities include T2DM, HLD, hypothyroidism, elevated PSA w/ neative biopsy, hx cervical decompression in March 2022. Likely an underlying lymphoma or another hematological process given the diffuse lymphadenopathy and bilateral hydronephrosis. Agree that relieving the obstruction is necessary to see where renal function settles out. Fortunately his calcium is WNL and uric acid has responded well to rasburicase. Certainly possible that there is an underlying GN In the setting of malignancy. Also possible that the NSAIDs contributed to his WALTER. # Diffuse lymphadenopathy concerning for underlying lymphoma # Obstructive Nephropathy # Bilateral Hydronephrosis # WALTER in the setting of Above # TLS - Agree with bilateral neph tubes, we will continue to monitor renal function and see where it settles out - We would like to examine his urine sediment under the microscope. Appreciate a urine sample sent to Tube station #[id number] when available (nursing & pt aware) - Initial urine studies bland; I've added an Alb:cr ratio to be sure there is no degree of proteinuria - Please note that I've ordered a vitamin D level with am labs. I would not replete iron in the setting of active malignancy so would recommend not checking iron studies in the setting of malignancy. - Would continue to monitor BMP, phos, and uric acid at least BID for now. This case was discussed with staff rig hand Dr. Westbrook and the patient's primary team. Please contact me at phone: [phone] or pager: [phone] with any questions. Reinaldo Barron MD Nephrology & Hypertension Fellow Associated attestation - Alvin Westbrook MD - 09/29/2022 5:08 PM EDT I saw and discussed the patient with the fellow and agree with the assessment and plan of this note. Apparent obstructive WALTER with pelvic lymphadenopathy. We will be keen to see urine output in response to percutaneous nephrostomies per IR. Hematologic diagnosis underway. Reportedly history of abnormal SPEP rises suspicion of plasma cell disc area. Patient does have renal injury as well as anemiabut calcium level is normal. He also reports significant NSAID use in the weeks prior to presentation which could be contributing factor. He does not have indication for renal replacement therapy at this time and we will watch trajectory particularly after percutaneous nephrostomy * Consult Note - Vasile Chandra Jr., MD - 09/29/2022 12:52 PM EDT [facility] HEMATOLOGY CONSULT Reason for consult: We are seeing Huber Mosher at the request of Dr. Zamora to evaluate for suspected lymphoma . I have reviewed all available records, interviewed and examined the patient. Patient ID: Huber Mosher is 67 y.o. with PMH of elevated PSA (last 111 in Dec 2021) w/ negative biopsy who presents with acute renal failure, CT scan showed extensive lymphadenopathy and bilateral hydronephrosis concerning for lymphoma. Focused HPI: Patient reported R leg swelling in August. He saw his PCP who has been working this up with DVT study (negative), labs, XR of the spine, and ultimately a CT scan at [place] (outpatient).This showed b/l hydronephrosis and diffuse lymphadenopathy. His PCP urged him to present to ED. In the ED his labs were concerning for acute renal failure with Cr ~6, and multiple electrolyte derangements, including K 5.2, bicarb 16, phos 6, and uric acid 11.3. Concern was for TLS, and for thishe received 1 dose rasburicase in coordination with our on-call Heme/Onc fellow. LDH was 279. CT showed: IMPRESSION 1. Extensive adenopathy within the chest, abdomen, and pelvis as detailed above. These findings are highly suspicious for lymphoma. 2. Bilateral hydronephrosis, likely secondary to retroperitoneal adenopathy. 3. Indeterminate left septated cystic renal lesion with chunky mural calcifications as detailed above. Nonemergent outpatient renal protocol MRI or ultrasound is recommended for further evaluation. 4. Bilateral lung opacities differential considerations include edema, infection, or inflammation. 5. Small bilateral pleural collections. Urology and Nephrology were consulted and considered stent vs percutaneous nephrology tubes. WALTER thought to be multifactorial due to obstruction vs intrinsic injury 2/2 urate nephropathy. IR biopsy of RP node is planned. Hematology consult is requested given the concern for lymphoma. On interview, Mr. Mosher is already educated on the possible diagnosis. He is aware of the plan to perform the biopsy. He did not have any specific questions for us but said he felt overwhelmed by all that is happening in the last 24 hours. He denies significant weight loss, sweats, lymph nodes. He does not feel any abnormality or fullness of his abdomen. ROS 10 point review of system is unremarkable other than what has been told in HPI Social history: He lives independently in [place]. 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 He has a large network of supportive friends. PHYSICAL EXAM Patient Vitals for the past 24 hrs: BP Temp Temp src Pulse Resp SpO2 Height Weight 09/29/22 1154 110/67 36.7 ??C (98.1 ??F) Oral -- -- 95 % -- -- 09/29/22 0827 128/79 36.6 ??C (97.9 ??F) Oral -- -- 98 % -- -- 09/29/22 0535 121/70 36.9 ??C (98.4 ??F) Oral -- 18 95 % -- -- 09/29/22 0534 -- -- -- -- -- (!) 88 % -- -- 09/29/22 0532 -- -- -- -- -- (!) 88 % -- -- 09/29/22 0056 -- -- -- -- -- -- 180.3 cm (5' ) 87.8 kg (193 lb 8 oz) 09/28/22 2329 118/70 36.5 ??C (97.7 ??F) Oral -- 18 100 % -- -- 09/28/22 2200 128/79 -- -- 80 16 100 % -- -- 09/28/22 1606 123/71 36.5 ??C (97.7 ??F) Temporal 83 18 100 % 180.3 cm (' ) 88 kg (194 lb) Body surface area is 2.1 meters squared. Wt Readings from Last 3 Encounters: 09/29/22 87.8 kg (193 lb 8 oz) 03/17/22 84.4 kg (186 lb) 12/20/21 90.1 kg (198 lb 10.2 oz) Constitutional: Well developed, appears in NAD Eye: Normal conjuctivae, PERRL, EOMI, mild proptosis HENT: normocephalic and atraumatic head, no lymphadenopathy appreciated. Oral mucosa moist Pulm: Clear to auscultation bilaterally, no wheezes, rhonchi or rales; good inspiratory effort CVS: normal S1 and S2, RRR, no murmurs GI: Soft, bowel sounds appreciated in all 4 quadrants, fullness appreciated in RLQ with associated tenderness, no splenomegaly Ext: +1 edema RLE MSK: No joint swelling, no spinal tenderness Neuro: CN2-12 grossly intact, no focal deficits Psych/ mood: Does not appear anxious or depressed, good affect DIAGNOSTICS Recent Results (from the past 24 hour(s)) Basic Metabolic Panel (non-fasting) Result Value Ref Range Glucose Lvl 102 65 - 199 mg/dL BUN 74 (H) 10 - 20 mg/dL Creatinine 5.80 (H) 0.80 - 1.50 mg/dL Sodium 130 (L) 135 - 145 mmol/L Potassium 5.2 (H) 3.5 - 5.0 mmol/L Chloride 101 98 - 107 mmol/L CO2 16 (L) 22 - 31 mmol/L Anion Gap 13 5 - 15 mmol/L Calcium 9.0 8.5 - 10.5 mg/dL Estimated GFR 10 (L) >=60 mL/min/1.73 m?? Hemogram Result Value Ref Range WBC 8.7 4.0 - 9.5 x10(3)/mcL RBC 3.35 (L) 4.58 - 5.54 x10(6)/mcL Hemoglobin 9.6 (L) 13.7 - 16.5 g/dL Hematocrit 29.2 (L) 40.5 - 48.5 % MCV 87.2 82.9 - 93.1 fL MCH 28.7 27.5 - 32.1 pg MCHC 32.9 32.0 - 35.7 g/dL Platelets 507 (H) 145 - 357 x10(3)/mcL RDWSD 48.4 (H) 36.0 - 45.0 fL RDWCV 15.1 (H) 11.4 - 13.8 % MPV 9.1 7.6 - 12.9 fL nRBC % Auto 0.0 % nRBC Abs Auto 0.000 0.000 - 0.000 x10(3)/mcL Differential, Automated Result Value Ref Range Neutrophils % 73.9 % Neutr Abs (ANC) 6.40 (H) 1.70 - 6.10 x10(3)/mcL Lymphocytes % 10.7 % Lymphocytes Abs 0.9 0.9 - 3.2 x10(3)/mcL Monocytes % 12.8 % Monocyte Abs 1.1 (H) 0.3 - 0.9 x10(3)/mcL Eosinophils % 2.0 % Eosinophils Abs 0.2 0.0 - 0.4 x10(3)/mcL Basophils % 0.5 % Basophils Abs 0.0 0.0 - 0.1 x10(3)/mcL Immature Gran % 0.10 % Edie Gran Abs 0.01 0.00 - 0.04 x10(3)/mcL Gold Tube HOLD Result Value Ref Range Gold Hold Sample in lab. Blue Tube HOLD Result Value Ref Range Blue Hold Sample in lab. Phosphorus Result Value Ref Range Phosphorus 6.0 (H) 2.5 - 4.5 mg/dL Uric acid Result Value Ref Range Uric Acid 11.3 (H) 3.5 - 8.5 mg/dL Urinalysis with reflex Culture Specimen: Clean Catch Urine Result Value Ref Range Glucose UA Negative Negative mg/dL Protein UA Negative Negative mg/dL Bilirubin UA Negative Negative mg/dL Urobilinogen UA Normal Normal mg/dL pH UA 5.5 5.0 - 8.0 Blood UA Negative Negative mg/dL Ketones UA Negative Negative mg/dL Nitrite UA Negative Negative Leukocytes UA Negative Negative mcL Appearance UA Clear Clear Spec [place] UA 1.012 1.005 - 1.030 Color UA Yellow Yellow Culture Reflexed No POCT Glucose Result Value Ref Range POC Glucose 95 65 - 199 mg/dL Protein Electrophoresis, urine, random Result Value Ref Range U Protein Ran 7 0 - 12 mg/dL Electrolytes, urine, random Result Value Ref Range U Sodium 37 mmol/L U Potassium 21 mmol/L U Chloride <20 mmol/L Creatinine, urine, random Result Value Ref Range U Creatinine 77 mg/dL Osmolality, urine, random Result Value Ref Range U Osmolality 278 50 - 1,200 mOsm/kg Basic Metabolic Panel (non-fasting) Result Value Ref Range Glucose Lvl 85 65 - 199 mg/dL BUN 76 (H) 10 - 20 mg/dL Creatinine 6.07 (H) 0.80 - 1.50 mg/dL Sodium 131 (L) 135 - 145 mmol/L Potassium 5.0 3.5 - 5.0 mmol/L Chloride 99 98 - 107 mmol/L CO2 16 (L) 22 - 31 mmol/L Anion Gap 16 (H) 5 - 15 mmol/L Calcium 8.5 8.5 - 10.5 mg/dL Estimated GFR 9 (L) >=60 mL/min/1.73 m?? Magnesium Result Value Ref Range Magnesium 0.83 0.69 - 1.07 mmol/L Phosphorus Result Value Ref Range Phosphorus 6.2 (H) 2.5 - 4.5 mg/dL Lactate Dehydrogenase Result Value Ref Range LDH 279 (H) 110 - 220 unit/L Uric acid Result Value Ref Range Uric Acid 8.8 (H) 3.5 - 8.5 mg/dL Protein Electrophoresis, serum Result Value Ref Range Total Prot Elec 7.4 6.1 - 8.0 g/dL Hepatic Function Panel Result Value Ref Range Total Protein 7.9 6.1 - 8.0 g/dL Albumin 3.0 (L) 3.2 - 5.2 g/dL AST 21 0 - 39 unit/L ALT 12 0 - 55 unit/L Alk Phos 58 40 - 130 unit/L Total Bilirubin 0.4 0.2 - 1.3 mg/dL Bili, Direct 0.2 0.0 - 0.3 mg/dL Beta 2 Microglobulin, serum Result Value Ref Range Beta2 Microglob 11.3 (H) <=3.0 mg/L Lyme IgG & IgM Antibody Result Value Ref Range Lyme Screening Antibody Negative Negative Lyme Ab Comment Negative result does not exclude possibility of infection. Hemogram Result Value Ref Range WBC 7.4 4.0 - 9.5 x10(3)/mcL RBC 3.24 (L) 4.58 - 5.54 x10(6)/mcL Hemoglobin 9.5 (L) 13.7 - 16.5 g/dL Hematocrit 28.9 (L) 40.5 - 48.5 % MCV 89.2 82.9 - 93.1 fL MCH 29.3 27.5 - 32.1 pg MCHC 32.9 32.0 - 35.7 g/dL Platelets 447 (H) 145 - 357 x10(3)/mcL RDWSD 50.2 (H) 36.0 - 45.0 fL RDWCV 15.2 (H) 11.4 - 13.8 % MPV 9.1 7.6 - 12.9 fL nRBC % Auto 0.0 % nRBC Abs Auto 0.000 0.000 - 0.000 x10(3)/mcL Differential, Automated Result Value Ref Range Neutrophils % 70.2 % Neutr Abs (ANC) 5.22 1.70 - 6.10 x10(3)/mcL Lymphocytes % 13.3 % Lymphocytes Abs 1.0 0.9 - 3.2 x10(3)/mcL Monocytes % 12.9 % Monocyte Abs 1.0 (H) 0.3 - 0.9 x10(3)/mcL Eosinophils % 2.6 % Eosinophils Abs 0.2 0.0 - 0.4 x10(3)/mcL Basophils % 0.7 % Basophils Abs 0.0 0.0 - 0.1 x10(3)/mcL Immature Gran % 0.30 % Edie Gran Abs 0.02 0.00 - 0.04 x10(3)/mcL Lactate Dehydrogenase Result Value Ref Range LDH 286 (H) 110 - 220 unit/L Uric acid Result Value Ref Range Uric Acid 7.7 3.5 - 8.5 mg/dL Basic Metabolic Panel (non-fasting) Result Value Ref Range Glucose Lvl 75 65 - 199 mg/dL BUN 80 (H) 10 - 20 mg/dL Creatinine 6.53 (H) 0.80 - 1.50 mg/dL Sodium 129 (L) 135 - 145 mmol/L Potassium 5.8 (H) 3.5 - 5.0 mmol/L Chloride 100 98 - 107 mmol/L CO2 17 (L) 22 - 31 mmol/L Anion Gap 12 5 - 15 mmol/L Calcium 8.5 8.5 - 10.5 mg/dL Estimated GFR 9 (L) >=60 mL/min/1.73 m?? Magnesium Result Value Ref Range Magnesium 0.85 0.69 - 1.07 mmol/L Phosphorus Result Value Ref Range Phosphorus 6.2 (H) 2.5 - 4.5 mg/dL PATHOLOGY Pending STAGING WORK UP Pending ASSESSMENT and PLAN Huber Mosher is 67 y.o. with PMH of elevated PSA (last 111 in Dec 2021) w/ negative biopsy who presents with acute renal failure, CT scan showed extensive lymphadenopathy and bilateral hydronephrosis concerning for lymphoma. Mr. Mosher is aware of the possible diagnosis. We did not dive too deeply into the topic given the uncertainty of the diagnosis at present time, but let him know we are here to support him as the information becomes available. In the meantime, agree with primary team management of renal failure and appreciate medicine, urology and nephrology services. Res: - please check PT,PTT,INR - agree w/ renally dosed allopurinol for TLS prophylaxis - await formal biopsy prior to discussion formal treatment options Thank you for the consult. Patient's case was discussed with my attending Dr. Chandra. Darlene Ramires MD, MS Hematology/Medical Oncology Fellow Chemistry Lecturerfile conversion operator Page # [phone] 09/29/22, 12:52 PM Inpatient Heme Consult Staff Addendum Pt seen with Heme Fellow, all clinical, laboratory and radiographic data reviewed, and case discussed in depth. I agree with the findings, assessment and recommendations as outlined above. GANESH Chandra MD Heme/Onc Section * Initial Assessments - Angelika Maldonado RN - 09/29/2022 8:56 AM EDT Office of Care Management Initial Assessment Angelika Maldonado RN reviewed record and discussed patient with Care Team. Source of Information: Team, bedside nurse, medical record, and Patient Introduced self/reviewed role; services accepted. Admitted From: Home Reason for Hospitalization: Swelling RLE Covid Vaccination Status: 1st, 2nd & booster (Fully vaccinated Pfizer) Last COVID test: Past medical History: Past Medical History: Diagnosis Date Diabetes High blood pressure Hypothyroid Hospitalizations Within the Past 30 Days: no previous admission in last 30 days Current Decision-Making Capacity: Self If AD's have not been completed the following surrogate would be surrogate decision maker per [place] surrogate decision making law. (Only good for 180 days) [address] Any patient receiving care in [place] must abide by [place] law. The hierarchy for surrogate decision making is: (a) Patient???s spouse or civil union partner unless there is a divorce proceeding, separation agreement, or restraining order limiting that person???s relationship with the patient. (b) Any adult son or daughter of the patient. (c) Either parent of the patient. (d) Any adult brother or sister of the patient. (e) Any adult grandchild of the patient. (f) Any grandparent of the patient. (g) Any adult aunt, uncle, niece, or nephew of the patient. (h) A close friend of the patient. (i) The agent with financial power of insurance attorney or a conservator appointed in accordance with RSA 464-A. (j) The guardian of the patient???s estate. Advance Care Planning: Attempt Cardiopulmonary Resuscitation - Inpatient <no information> -Advanced Directive: No, need to discuss Current Coping/Education/Information Needs: Educated the patient on the role of the CM and the DC planning process Current Functional Ability: Independent Functional Status Prior to Admission: Independent Prior ADLs & IADLs: Independent with all ADLs & IADLs Home Environment: Others in the home: alone. Current Living Arrangements: home/apartment/condo. Accessibility Concerns:Patient live alone in a first floor apartment. Resource / Environmental Concerns: Resource/Environmental Concerns: none Current DME: none Home Address confirmed as: Physical address [address] [place] [id number] Mailing address [address] [id number] Social & Family Supports: All names listed below confirmed with patient as current and correct Extended Emergency Contact Information Primary Emergency Contact: SANTA CARCAMO Address: [place] [address] [facility] Relation: Friend Secondary Emergency Contact: Ct Mosher Mobile Relation: Sibling Current Care Provided by: self Provides Primary Care For: no one Caregiver if needed: friend(s) Quality of Family relationships: helpful, involved, supportive Community Resources being provided currently: none Behavioral Health History: Denied Substance Use/Abuse confirmed: Social History Tobacco Use Smoking Status Never [...] risk 20 to 40 points: Addiction likely Other Pertinent/Service Specific Information: NA Health/Prescription Coverage: Primary Insurance: MEDICARE Payor: MEDICARE / Plan: MEDICARE PART A & B / Product Type: *No Product type* / Secondary Insurance: AARP SUPPLEMENT ONLY if patient has Medicare A&B - Does this patient have secondary insurance?: Yes ; Prescription Coverage: Yes Preferred Pharmacy: [facility] [address] [place] [address] [place] [id number] [place] Status: Patient is a : No Primary Care Provider confirmed: JESSE Nesbitt [phone] Patient/Caregiver Goals of Treatment: Return home Potential Needs for Transition of Care: none Agency Referrals: Not Applicable Transportation: no concerns Transportation Anticipated: family or friend will provide Concerns to be Addressed: no discharge needs identified Assessment: Patient is admitted to Med service for WALTER Plan: The patient alert and oriented and able to participate in discussion regarding DC plan. Patient with no apparent RNCM/SW needs at this time. No housing, transportation, insurance, resources concerns identified at this time. Supports in place to achieve a safe post-hospital transition. No identifiedbarriers to accessing necessary care and/or follow-up after discharge. Monitor pt progress Review recommendations from other providers Make referrals as needed Monitor for O2 needs Monitor for DME needs. A member of the Care Management team will continue to monitor progress, follow for continuity of care and assist with transition of care planning. Angelika Maldonado [facility] [phone] * Consult Note - Santa Card MD - 09/29/2022 7:19 AM EDT Images from the original note were not included. UROLOGY CONSULT NOTE History of Present Illness: Huber Mosher is a 67 y.o. male seen by urology in the past for elevated PSA with negative biopsy who presents from his PCP with reports of a CT showing hydronephrosis as well as diffuse retroperitoneal lymphadenopathy and right lower extremity swelling. Patient reports that he has had off and on mild bilateral low back pain since early spring. He alsonotes recent intermittent swelling of the scrotum and right lower extremity. Denies any urinary symptoms. The patient was sent here after consultation through the transfer center for CT findings of diffuse retroperitoneal adenopathy, right lower extremity swelling/edema, hydronephrosis, elevated creatinine. Is also worth noting the patient has recently been diagnosed with a tentative diagnosis of multiple myeloma based on blood testing with a pending heme-onc consult. Interval Events: - no complaints this morning - UA neg - Cr 5.8 last night Past Medical/Surgical History: Past Medical History: Diagnosis Date Diabetes High blood pressure Hypothyroid Patient Active Problem List Diagnosis Code Status post cervical spinal fusion Z98.1 WALTER (acute kidney injury) N17.9 Past Surgical History: Procedure Laterality Date CATARACT REMOVAL WITH IMPLANT 2019 HAND SURGERY Left 1997 Left thumb repair surgery INGUINAL HERNIA REPAIR 1954 as an PRO ALLOGRAFT FOR SPINE SURGERY ONLY MORSELIZED Bilateral 03/17/2022 ALLOGRAFT FOR SPINE SURGERY ONLY; MORSELIZED (WRVU *) performed by Bebe Hatfield MD at [facility] MAIN OR PRO ARTHRD ANT INTERDY CERVCL BELW C2 EA ADDL NTRSPC Bilateral 03/17/2022 ARTHRODESIS ANT INTERBDY CERVCL BELOW C2 EA ADDL INTRSPACE (WRVU 6.5) performed by Bebe Hatfield MD at [facility] MAIN OR PRO ARTHRODESIS, ANT INTERBODY,DECOMPRESSION; CERVICAL BELOW C2 Bilateral 03/17/2022 ARTHRODESIS, ANT INTERBODY,DECOMPRESSION; CERVICAL BELOW C2 (WRVU 25) performed by Bebe Hatfield MD at [facility] MAIN OR PRO INSERT BIOMCHN DEV INTERVERTEBRAL DSC SPC W/ARTHRD Bilateral 03/17/2022 INSERTION INTERBODY BIOMECH DEV TO INTERVEBRAL DISC SPACE, EA INTERSPACE (WRVU 4.25) performed by Bebe Hatfield MD at [facility] MAIN OR US GUIDED BIOPSY PROSTATE WITH URONAV FUSION 12/20/2021 US Guided Biopsy Prostate with Uronav Fusion 12/20/2021 [facility] RAD ULTRASOUND Social History: Social History Socioeconomic History Marital status: Single Spouse name: None Number of children: None Years of education: None Highest education level: None Occupational History None Tobacco Use Smoking status: Never Smokeless tobacco: Never Substance and Sexual Activity Alcohol use: Not Currently Drug use: Not Currently Sexual activity: None Other Topics Concern None Social History Narrative None Social Determinants of Health Financial Resource Strain: Not on file Food Insecurity: Not on file Transportation Needs: Not on file Physical Activity: Not on file Housing Stability: Not on file Family History: No family history on file. Review of Systems: 12 point review of systems performed and negative except as mentioned in HPI Medications: No current facility-administered medications on file prior to encounter. Current Outpatient Medications on File Prior to Encounter Medication Sig Dispense Refill fluorometholone (FML Forte) 0.25 % Drops, Suspension 1 drop Every 12 hours. traMADoL (Ultram) 50 mg Tablet TAKE 1 TABLET BY MOUTH EVERY 8 HOURS NEEDED FOR SEVERE ACUTE PAIN tamsulosin (Flomax) 0.4 mg Capsule Take 1 capsule by mouth daily. 90 tablet 3 Lantus Solostar U-100 Insulin 100 unit/mL (3 mL) pen 16 Units daily. Synthroid 137 mcg Tablet Take 137 mcg by mouth daily. lisinopriL (Zestril) 10 mg Tablet Take 10 mg by mouth daily. metFORMIN (Glucophage) 500 mg Tablet Take 1,000 mg by mouth 2 times daily (with meals). simvastatin (Zocor) 40 mg Tablet Take 40 mg by mouth nightly. Physical Exam: Temp: [36.5 ??C (97.7 ??F)-36.9 ??C (98.4 ??F)] Heart Rate: [80-83] Resp: [16-18] BP: (118-128)/(70-79) SpO2: [88 %-100 %] Heart Rate from SpO2: [81 bpm-89 bpm] General: No acute distress. Abd: Soft nontender nondistended, no costovertebral angle tenderness, however pain to palpation of the lower back, lower than 1 would expect for renal pain. : Circumcised phallus, bilateral descended testes, mild scrotal and penile edema focused around the dependent aspect of the scrotum as well as the frenulum. Extremities: Pitting edema to the right lower extremity Labs: Recent Labs 09/29/22 0554 09/28/22 1710 WBC 7.4 8.7 HGB 9.5* 9.6* PLATELET 447* 507* NA 131* 130* K 5.0 5.2* CL 99 101 CO2 16* 16* BUN 76* 74* CREATININE 6.07* 5.80* CALCIUM 8.5 9.0 MAGNESIUM 0.83 -- Component Value Date/Time SPGRAVITYUA 1.012 2022 183 PHUADIP 5.5 2022 183 PROTEINUADIP Negative 2022 183 GLUCOSEU Negative 2022 183 KETONESUA Negative 2022 183 UROBILIUADIP Normal 2022 183 BLOODUADIP Negative 2022 183 NITRATEUA Negative 2022 183 LEUKOESTERUA Negative 2022 183 BILIRUBINUA Negative 2022 183 Microbiology: None Imaging: Assessment: Huber Msoher is a 67 y.o. with a history of elevated PSA with a negative biopsy. He presents with new diagnosis of MM, and noted to have WALTER with Cr of 5.8. Review of his CT scan from this morning shows bilateral moderate hydroureteronephrosis with perinephric fat stranding. The patient does not have any CVAT or abdominal tenderness, but does have WALTER which is likely multifactorial. Given the concern for obstructive WALTER from bilateral ureteral obstruction in setting of RP adenopathy, recommend bilateral ureteral stent placement. Patient should be kept NPO in preparation for procedure. OK for anticoagulation if needed for LE swelling and concern for DVT. Also recommend biopsy of RP node for tissue diagnosis. Patient booked and consented. No site marking as procedure bilateral. Recommendations: -Bilateral ureteral stent placement as D case - Biopsy RP node Santa Card MD Associated attestation - Vasile Castañeda MD - 10/01/2022 7:49 PM EDT Attending Addendum I have seen the patient and reviewed the history and examination. I agree with the details as written. The assessment and plan were formulated in discussion with me and I agree with them as documented. I would add the following: Assessment: Huber Mosher is a 67 y.o. with a history of elevated PSA with a negative biopsy. He presents with new diagnosis of MM, and noted to have WALTER with Cr of 5.8. Review of his CT scan from this morning shows bilateral moderate hydroureteronephrosis with perinephric fat stranding. The patient does not have any CVAT or abdominal tenderness, but does have WALTER which is likely multifactorial. Given the concern for obstructive WALTER from bilateral ureteral obstruction in setting of RP adenopathy, recommend bilateral ureteral stent placement. Patient should be kept NPO in preparation for procedure. OK for anticoagulation if needed for LE swelling and concern for DVT. Also recommend biopsy of RP node for tissue diagnosis. Patient booked and consented. No site marking as procedure bilateral. Recommendations: -Bilateral ureteral stent placement as D case - Biopsy RP node Vasile Ferrera Secathimariusz * Plan of Care - Mariaelena Rain RN - 09/29/2022 3:08 AM EDT OUTCOME EVALUATION NOTE: OUTCOME SUMMARY: VS as charted. Eyes closed between care. Placed on 2L NC for desats while awake, pt denies SOB but states sometimes my breathing feels more labored but not right now. Given oral prep, some nausea, pt reports recent hx of intolerance of PO intake and weight loss. EKG obtained so as to be able to give PRN antiemetic following PO prep. MIVF infusing as ordered. I/O as charted. Pt found to have tick embedded in LLE calf, appears to be dog tick. MD made aware, tick panel added to AM labs. Pt educated r/t s/s tick bourne illness, to be mindful to notify providers if rash develops; verbalized understanding. Eyes closed between care, making needs known, will CTM and notify team of changes. PLAN MOVING FORWARD: F/u CT scan, urine labs sent Monitor respiratory status, fluid volume status, wean O2 when clinically appropriate INDIVIDUALIZED FALL PREVENTION INTERVENTIONS: Patient-specific fall risk factors per assessment: [current deficits]: Appropriate safety awareness Assistance [level of assistance required for transfers and ambulation]: Independent/SBA Supervision [direct monitoring required during toileting and ADLs]: Eyes on Surveillance [continuous indirect monitoring]: Purposeful rounding, bed alarm 1st 24 hrs per policy Patient-specific fall prevention interventions for sensory deficits provided, if applicable: [X] N/A CARE PLAN GOAL OUTCOME EVALUATION: * Consult Note - Daniel Barnes MD - 2022 9:13 PM EDT UROLOGY CONSULT NOTE Reason for Consultation: Possible hydro, elevated creatinine, hx of elevated PSA History of Present Illness: Huber Mosher is a 67 y.o. male seen by urology in the past for elevated PSA with negative biopsy who presents from his PCP with reports of a CT showing hydronephrosis as well as diffuse retroperitoneal lymphadenopathy and right lower extremity swelling. Patient reports that he has had off and on mild bilateral low back pain since early spring. He alsonotes recent intermittent swelling of the scrotum and right lower extremity. Denies any urinary symptoms. The patient was sent here after consultation through the transfer center for CT findings of diffuse retroperitoneal adenopathy, right lower extremity swelling/edema, hydronephrosis, elevated creatinine. Is also worth noting the patient has recently been diagnosed with a tentative diagnosis of multiple myeloma based on blood testing with a pending heme-onc consult. Past Medical/Surgical History: Past Medical History: Diagnosis Date Diabetes High blood pressure Hypothyroid Patient Active Problem List Diagnosis Code Status post cervical spinal fusion Z98.1 Past Surgical History: Procedure Laterality Date CATARACT REMOVAL WITH IMPLANT 2019 HAND SURGERY Left 1997 Left thumb repair surgery INGUINAL HERNIA REPAIR 1954 as an infant PRO ALLOGRAFT FOR SPINE SURGERY ONLY MORSELIZED Bilateral 03/17/2022 ALLOGRAFT FOR SPINE SURGERY ONLY; MORSELIZED (WRVU *) performed by Bebe Hatfield MD at [facility] MAIN OR PRO ARTHRD ANT INTERDY CERVCL BELW C2 EA ADDL NTRSPC Bilateral 03/17/2022 ARTHRODESIS ANT INTERBDY CERVCL BELOW C2 EA ADDL INTRSPACE (WRVU 6.5) performed by Bebe Hatfield MD at [facility] MAIN OR PRO ARTHRODESIS, ANT INTERBODY,DECOMPRESSION; CERVICAL BELOW C2 Bilateral 03/17/2022 ARTHRODESIS, ANT INTERBODY,DECOMPRESSION; CERVICAL BELOW C2 (WRVU 25) performed by Bebe Hatfield MD at [facility] MAIN OR PRO INSERT BIOMCHN DEV INTERVERTEBRAL DSC SPC W/ARTHRD Bilateral 03/17/2022 INSERTION INTERBODY BIOMECH DEV TO INTERVEBRAL DISC SPACE, EA INTERSPACE (WRVU 4.25) performed by Bebe Hatfield MD at [facility] MAIN OR US GUIDED BIOPSY PROSTATE WITH URONAV FUSION 12/20/2021 US Guided Biopsy Prostate with Uronav Fusion 12/20/2021 [facility] RAD ULTRASOUND Social History: Social History Socioeconomic History Marital status: Single Spouse name: Not on file Number of children: Not on file Years of education: Not on file Highest education level: Not on file Occupational History Not on file Tobacco Use Smoking status: Never Smokeless tobacco: Never Substance and Sexual Activity Alcohol use: Not Currently Drug use: Not Currently Sexual activity: Not on file Other Topics Concern Not on file Social History Narrative Not on file Social Determinants of Health Financial Resource Strain: Not on file Food Insecurity: Not on file Transportation Needs: Not on file Physical Activity: Not on file Housing Stability: Not on file Family History: No family history on file. Review of Systems: 12 point review of systems performed and negative except as mentioned in HPI Medications: No current facility-administered medications on file prior to encounter. Current Outpatient Medications on File Prior to Encounter Medication Sig Dispense Refill fluorometholone (FML Forte) 0.25 % Drops, Suspension 1 drop Every 12 hours. traMADoL (Ultram) 50 mg Tablet TAKE 1 TABLET BY MOUTH EVERY 8 HOURS NEEDED FOR SEVERE ACUTE PAIN tamsulosin (Flomax) 0.4 mg Capsule Take 1 capsule by mouth daily. 90 tablet 3 Lantus Solostar U-100 Insulin 100 unit/mL (3 mL) pen 16 Units daily. Synthroid 137 mcg Tablet Take 137 mcg by mouth daily. lisinopriL (Zestril) 10 mg Tablet Take 10 mg by mouth daily. metFORMIN (Glucophage) 500 mg Tablet Take 1,000 mg by mouth 2 times daily (with meals). simvastatin (Zocor) 40 mg Tablet Take 40 mg by mouth nightly. Physical Exam: Temp: [36.5 ??C (97.7 ??F)] Heart Rate: [83] Resp: [18] BP: (123)/(71) SpO2: [100 %] Heart Rate from SpO2: -- General: No acute distress. Abd: Soft nontender nondistended, no costovertebral angle tenderness, however pain to palpation of the lower back, lower than 1 would expect for renal pain. : Circumcised phallus, bilateral descended testes, mild scrotal and penile edema focused around the dependent aspect of the scrotum as well as the frenulum. Extremities: Pitting edema to the right lower extremity Labs: Recent Labs 09/28/22 1710 WBC 8.7 HGB 9.6* PLATELET 507* NA 130* K 5.2* CL 101 CO2 16* BUN 74* CREATININE 5.80* CALCIUM 9.0 Component Value Date/Time SPGRAVITYUA 1.012 2022 183 PHUADIP 5.5 2022 1836 PROTEINUADIP Negative 2022 1836 GLUCOSEU Negative 2022 1836 KETONESUA Negative 2022 1836 UROBILIUADIP Normal 2022 183 BLOODUADIP Negative 2022 1836 NITRATEUA Negative 2022 183 LEUKOESTERUA Negative 2022 183 BILIRUBINUA Negative 2022 183 Microbiology: None Imaging: No CT report or images available Assessment: Huber Mosher is a 67 y.o. with a history of elevated PSA with a negative biopsy and reports of a CT which showed hydronephrosis and diffuse retroperitoneal lymphadenopathy. It is difficult to make a diagnosis without the imaging or the report of the imaging, however retroperitoneal lymphadenopathy is uncommon in prostate cancer and the patient does not currently have a diagnosis of prostate cancer. Additionally, with a new diagnosis of multiple myeloma and no history of renal insufficiency it is far more likely that his creatinine is related to his multiple myeloma as opposed to urinary obstruction. If upper tract obstruction is present, the patient would likely need a stent, however this is unlikely to improve the patient's overall renal function very much. Ultimately, the patient requiresimaging and likely work-up of his reported diffuse retroperitoneal lymphadenopathy and right lower extremity swelling. Only other thing to add in regards to the patient's right lower extremity swelling would be that itis possible he is having compression of a common or external iliac vein leading to the swelling as opposed to a DVT however he does need work-up for both of these. Recommendations: -Either obtain CT images or obtain a CT to further evaluate -Further work-up and management per emergency department Daniel Barnes MD * ED Triage - Emilie Harris RN - 2022 4:07 PM EDT Patient arrives after CT scan with concerns for blockage of lymph node. His provider recommended hecome in. Endorses abd pain (was waxing and waning but now constant after eating), back pain, decrease in kidney function, swelling of right left and swelling of testicles. Pt reports no issues with urination. Appears uncomfortable. Denies fevers, n/v/d. Also reports having growth on prostate that was biopsied and benign but concerned for growth. Pt speaking in clear, logical and full sentences. Respiratory rate regular and unlabored. Skin appropriate color, warm and dry. Alert & oriented x4 HPI (Adult) Stated Reason for Visit: I just had a CT scan and my doctor said there is a blockage in my lymphnode. I am having stomach pain when I eat, back pain, my kidney functions are not doing well, swellingof my right leg, swelling of my testicles. History Obtained From: patient documented in this encounter Plan of Treatment Upcoming Encounters Date Type Department Care Team (Late st Contact Info) Description 10/16/2023 2:30 PM EDT Office Visit Hematology/Oncology at [address] [phone] Fiordaliza Downing APRN [facility] [place] [address] 11/10/2023 9:00 AM EDT Appointment [place] [phone] Thomas Curtis MD [facility] HEMATOLOG[place] [address] 11/21/2023 11:00 AM EDT Infusion Hematology Oncology at [address] [phone] 12/05/2023 1:30 PM EDT Office Visit Hematology/Oncology at [address] [phone] Thomas Curtis MD [facility] HEMAT[place] [address] Fiordaliza Downing APRN [facility] [place] [address] 12/26/2023 9:00 AM EDT Appointment [place] [phone] Thomas Curtis MD [facility] HEMATOLOG[place] [address] 02/09/2024 8:00 AM EST Appointment [place] [phone] Thomas Curtis MD [facility] HEMATOLOGY [place] [address] 03/18/2024 3:00 PM EST Office Visit Cardiology at [address] [phone] Sameer Rudolph MD [facility] [place] [address] 03/22/2024 9:00 AM EST Appointment [place] [phone] Thomas Curtis MD [facility] HEMATOLOGY [place] [address] 08/23/2024 Hospital Encounter [place] [phone] True Juarez MD [facility] [place] [address] Scheduled Procedures Name Priority Associated Diagnoses Date/Ti me CYSTO, STENT PLACEMENT (WRVU 2.82) Hydronephrosis with ureteral stricture, not elsewhere classified CYSTO, REMOVAL OF STENT, FOR EIGN BODY OR CALCULUS, SIMPLE (WRVU 2.81) Hydronephrosis with ureteral stricture, not elsewhere classified documented as of this encounter Procedures Procedure Name Priority Date/Time Associated Diagnosis Comments POCT GLUCOSE Routine 10/03/2022 11:32 AM EDT DUPLEX FOR DVT BILAT LEGS Routine 2022 7:49 AM EDT Lymphadenopathy Right leg swelling PHOSPHORUS Routine 10/03/2022 6:46 AM EDT MAGNESIUM Routine 10/03/2022 6:46 AM EDT BASIC METABOLIC PANEL Routine 10/03/2022 6:46 AM EDT POCT GLUCOSE Routine 10/03/2022 6:39 AM EDT POCT GLUCOSE Routine 10/02/2022 4:44 PM EDT POCT GLUCOSE Routine 10/02/2022 11:35 AM EDT POCT GLUCOSE Routine 10/02/2022 6:58 AM EDT PHOSPHORUS Routine 10/02/2022 6:28 AM EDT MAGNESIUM Routine 10/02/2022 6:28 AM EDT BASIC METABOLIC PANEL Routine 10/02/2022 6:28 AM EDT POCT GLUCOSE Routine 10/01/2022 8:30 PM EDT POCT GLUCOSE Routine 10/01/2022 4:10 PM EDT POCT GLUCOSE Routine 10/01/2022 11:30 AM EDT HEMOGRAM Routine 10/01/2022 9:06 AM EDT DIFFERENTIAL, AUTOMATED Routine 10/02/19 9:06 AM EDT CBC (WITH DIFF) Routine 10/01/2022 9:06 AM EDT URIC ACID Routine 10/01/2022 9:06 AM EDT PHOSPHORUS Routine 10/01/2022 9:06 AM EDT MAGNESIUM Routine 10/01/2022 9:06 AM EDT LACTATE DEHYDROGENASE Routine 10/01/2022 9:06 AM EDT BASIC METABOLIC PANEL Routine 10/01/2022 9:06 AM EDT BASIC METABOLIC PANEL Routine 10/01/2022 9:06 AM EDT POCT GLUCOSE Routine 10/01/2022 7:45 AM EDT POCT GLUCOSE Routine 10/01/2022 12:46 AM EDT OSMOLALITY Timed 10/01/2022 12:09 AM EDT BASIC METABOLIC PANEL Timed 10/01/2022 12:09 AM EDT POCT GLUCOSE Routine 09/30/2022 10:01 PM EDT POCT GLUCOSE Routine 09/30/2022 8:45 PM EDT LACTATE DEHYDROGENASE Routine 09/30/2022 7:10 PM EDT POCT GLUCOSE Routine 09/30/2022 5:11 PM EDT ECHO COMPLETE W CONTRAST Routine 023 5:05 PM EDT Pleural effusion, bilateral URIC ACID Routine 09/30/2022 5:00 PM EDT PHOSPHORUS Routine 09/30/2022 5:00 PM EDT LACTATE DEHYDROGENASE Routine 09/30/2022 5:00 PM EDT BASIC METABOLIC PANEL Routine 09/30/2022 5:00 PM EDT BLOOD GAS VENOUS ([facility]) Routine 12:20 PM EDT LAVENDER TUBE HOLD Routine 09/30/2022 12 :18 PM EDT HC PARTIAL THROMBOPLASTIN TIME Routine 09/30/2022 12:18 PM EDT PROTHROMBIN TIME Routine 09/30/2022 12:1 8 PM EDT URIC ACID Routine 09/30/2022 12:18 PM EDT PHOSPHORUS Routine 09/30/2022 12:18 PM EDT LACTATE DEHYDROGENASE Routine 09/30/2022 12:18 PM EDT BASIC METABOLIC PANEL Routine 09/30/2022 12:18 PM EDT POCT GLUCOSE Routine 09/30/2022 12:[address] GUIDED BIOPSY LYMPH NODE(CHEST/ABD/PELVIS) Routine 09/30/2022 11:03 AM EDT SOLID TUMOR NGS PANEL Routine 09/30/2022 11:00 AM EDT IMMUNOPHENOTYPING FLOW CYTOMETRY (BLOOD) Routine 09/30/2022 11:00 AM EDT FLOW CYTOMETRY REPORT Routine 09/30/2022 11:00 AM EDT SURGICAL PATHOLOGY REPORT Routine 2022 11:00 AM EDT POCT GLUCOSE Routine 09/30/2022 7:48 AM EDT SPECIMEN TO PATHOLOGY Routine 09/30/2022 7:45 AM EDT LAVENDER TUBE HOLD Routine 09/30/2022 6: 17 AM EDT URIC ACID Routine 09/30/2022 6:17 AM EDT TSH Routine 09/30/2022 6:17 AM EDT PHOSPHORUS Routine 09/30/2022 6:17 AM EDT MAGNESIUM Routine 09/30/2022 6:17 AM EDT LACTATE DEHYDROGENASE Routine 09/30/2022 6:17 AM EDT HEPATIC FUNCTION PANEL Routine 6:17 AM EDT BASIC METABOLIC PANEL Routine 09/30/2022 6:17 AM EDT POCT GLUCOSE Routine 09/30/2022 1:07 AM EDT HEMOGRAM Routine 09/30/2022 12:19 AM EDT DIFFERENTIAL, AUTOMATED Routine 10/01/19 12:19 AM EDT CBC (WITH DIFF) Routine 09/30/2022 12:19 AM EDT POCT GLUCOSE Routine 09/29/2022 11:52 PM EDT URIC ACID Routine 09/29/2022 11:09 PM EDT PHOSPHORUS Routine 09/29/2022 11:09 PM EDT MAGNESIUM Routine 09/29/2022 11:09 PM EDT BASIC METABOLIC PANEL Routine 09/29/2022 11:09 PM EDT POCT GLUCOSE Routine 09/29/2022 10:48 PM EDT XR FLUORO NO RAD <1HR - OR USE Routine 09/29/2022 10:48 PM EDT URINE HOLD Routine 09/29/2022 10:45 PM EDT URINE CULTURE Routine 09/29/2022 10:45 PM EDT Cystoscopy, Insert Ureteral Stent (35447) 09/29/2022 9:31 PM EDT Bilateral ureteral obstruction POCT GLUCOSE Routine 09/29/2022 9:15 PM EDT CYSTO, STENT PLACEMENT Routine 7:22 PM EDT URIC ACID Routine 09/29/2022 5:24 PM EDT PHOSPHORUS Routine 09/29/2022 5:24 PM EDT MAGNESIUM Routine 09/29/2022 5:24 PM EDT LACTATE DEHYDROGENASE Routine 09/29/2022 5:24 PM EDT BASIC METABOLIC PANEL Routine 09/29/2022 5:24 PM EDT URIC ACID-RASBURICASE STAT 09/29/2022 1:52 PM EDT PSA (ULTRASENSITIVE), TOTAL AND FREE STAT 09/29/2022 1:52 PM EDT URIC ACID Routine 09/29/2022 11:46 AM EDT PHOSPHORUS Routine 09/29/2022 11:46 AM EDT MAGNESIUM Routine 09/29/2022 11:46 AM EDT LACTATE DEHYDROGENASE Routine 09/29/2022 11:46 AM EDT BASIC METABOLIC PANEL Routine 09/29/2022 11:46 AM EDT IMMUNOGLOBULIN FREE LIGHT CHAINS, SERUM Routine 09/29/2022 5:54 AM EDT ACUTE [place] INFECTION PANEL Routine 09/29/2022 5:54 AM EDT LYME IGG & IGM ANTIBODY Routine 09/30/19 5:54 AM EDT IMMUNOGLOBULINS, QUANTITATIVE Routine 09/29/2022 5:54 AM EDT IMMUNOFIXATION ELECTROPHORESIS, SERUM Routine 09/29/2022 5:54 AM EDT HEMOGRAM Routine 09/29/2022 5:54 AM EDT DIFFERENTIAL, AUTOMATED Routine 09/30/19 5:54 AM EDT VITAMIN D, 25-HYDROXY Routine 09/29/2022 5:54 AM EDT CBC (WITH DIFF) Routine 09/29/2022 5:54 AM EDT URIC ACID STAT 09/29/2022 5:54 AM EDT PROTEIN ELECTROPHORESIS, SERUM Routine 09/29/2022 5:54 AM EDT PHOSPHORUS Routine 09/29/2022 5:54 AM EDT MAGNESIUM Routine 09/29/2022 5:54 AM EDT LACTATE DEHYDROGENASE STAT 09/29/2022 5:54 AM EDT BETA 2 MICROGLOBULIN, SERUM Routine 09/29/2022 5:54 AM EDT HEPATIC FUNCTION PANEL Routine 5:54 AM EDT BASIC METABOLIC PANEL Routine 09/29/2022 5:[address] CHEST, ABDOMEN, PELVIS WO CONTRAST STAT 09/29/2022 5:00 AM EDT ELECTROLYTES, URINE, RANDOM Routine 09/29/2022 3:37 AM EDT U ALBUMIN/CRE RATIO Routine 09/29/2022 3 :37 AM EDT PROTEIN ELECTROPHORESIS, URINE, RANDOM Routine 09/29/2022 3:37 AM EDT OSMOLALITY, URINE, RANDOM Routine 2022 3:37 AM EDT CREATININE, URINE, RANDOM Routine 2022 3:37 AM EDT EKG 12-LEAD STAT 09/29/2022 3:21 AM EDT WALTER (acute kidney injury) IMPLANTABLE DEVICES SCAN 023 12:00 AM EDT XR CHEST ONE VIEW STAT 2022 10: 01 PM EDT POCT GLUCOSE Routine 2022 7:17 PM EDT URINALYSIS WITH REFLEX CULTURE STAT 2022 6:36 PM EDT HEMOGRAM STAT 2022 5:10 PM EDT DIFFERENTIAL, AUTOMATED STAT 09/29/19 5:10 PM EDT GOLD TUBE HOLD STAT 2022 5:10 PM EDT BLUE TUBE HOLD STAT 2022 5:10 PM EDT CBC (WITH DIFF) STAT 2022 5:10 PM EDT URIC ACID STAT 2022 5:10 PM EDT PHOSPHORUS STAT 2022 5:10 PM EDT BASIC METABOLIC PANEL STAT 2022 5:10 PM EDT FILM LIBRARY STORAGE ONLY CT ABDOMEN AND PELVIS Routine 2022 12:00 AM EDT documented in this encounter Results * POCT Glucose (10/03/2022 11:32 AM EDT) Glucose, POC 178 65 - 199 mg/dL [facility] Comment: Supplemental ranges: <140 mg/dL before meals <180 mg/dL all other times of the day Blood 10/03/2022 11:3 2 AM EDT 10/03/2022 11:32 AM EDT Sulaiman Medley DO POINT OF CARE TEST O RDERABLES Performing Organization Address City/State/[facility] Co de Phone Number [facility] [place] [place] [address] * Duplex Study for DVT, Bilat legs (10/03/2022 7:49 AM EDT) VB Text Report Department: Vascular Surgery Lab Patient: [id number] (HUBER MOSHER) CPT: 55022 Referring Physician: SULAIMAN MEDLEY ?? Phone: Indications: R>L LE edema, ? DVT Findings: RIGHT: Patent common femoral vein and popliteal vein with spontaneous, respirophasic Doppler waveforms that respond normally to augmentation maneuvers. The common femoral vein, saphenofemoral junction, femoral vein through the thigh and popliteal vein are fully compressible. Patent posterior tibial and peroneal veins with no evidence of thrombus. LEFT: Patent common femoral vein and popliteal vein with spontaneous, respirophasic Doppler waveforms that respond normally to augmentation maneuvers. The common femoral vein, saphenofemoral junction, femoral vein through the thigh and popliteal vein are fully compressible. Patent posterior tibial and peroneal veins with no evidence of thrombus. Interpretation: RIGHT: ??No evidence of lower extremity deep venous thrombosis. LEFT: ??No evidence of lower extremity deep venous thrombosis. Comparison: ?? No previous study in our vascular lab database for comparison. Electronically Signed by: PRITI CRUZ on 2022-10-03 03:38:56 PM [facility]AS[facility] VB Text Report End of Report [facility]AS[facility] 10/03/2022 7:49 AM EDT Sulaiman Medley DO VASCULAR ORDERABLES Performing Organization Address City/[facility]/ZIP Co de Phone Number VASCUBASE * Phosphorus (10/03/2022 6:46 AM EDT) Phosphorus 2.6 2.5 - 4.5 mg/dL [facility] Blood 10/03/2022 6:46 AM EDT 10/03/2022 6:49 AM EDT Narrative Resulting Agency Comment Spec In Lab Sulaiman Medley DO CHEMISTRY ORDERABLES Performing Organization Address [facility] Co de Phone Number [facility] [place] [address] * (ABNORMAL) Basic Metabolic Panel (non-fasting) (10/03/2022 6:46 AM EDT) Glucose 138 65 - 199 mg/dL [facility] Comment:Diabetes: >=200 mg/d L plus symptoms Blood Urea Nitrogen 53(H) 10 - 20 mg/dL [facility] Creatinine 2.52(H) 0.80 - 1.50 mg/dL [facility] Sodium 134(L) 135 - 145 mmol/L [facility] Potassium 4.2 3.5 - 5.0 mmol/L [facility] Comment: Please note: ??Patients with WBC >100,000 may have falsely elevated Potassium levels. ??For accurate Potassium quantification in these patients send serum separator tube (gold top) for subsequent determinations. ??Contact the Clinical Chemistry Laboratory if there are any questions. Chloride 103 98 - 107 mmol/L [facility] Carbon Dioxide 21(L) 22 - 31 mmol/L [facility] Anion Gap 10 5 - 15 mmol/L [facility] Calcium 8.7 8.5 - 10.5 mg/dL [facility] Est Glomerular Filtration Rate 27(L) >=60 mL/min/1. 73 m?? [facility] Comment: This patient's estimated GFR [...] and symptoms in addition to eGFR. Blood 10/03/2022 6:46 AM EDT 10/03/2022 6:49 AM EDT Narrative Resulting Agency Comment Spec In Lab Sulaiman Medley DO CHEMISTRY ORDERABLES Performing Organization Address City/[facility]/ZIP Co de Phone Number [facility] [place] [address] * (ABNORMAL) Magnesium (10/03/2022 6:46 AM EDT) Magnesium 0.67(L) 0.69 - 1.07 mmol/L [facility] Blood 10/03/2022 6:46 AM EDT 10/03/2022 6:49 AM EDT Narrative Resulting Agency Comment Spec In Lab Daphnie Zamora MD CHEMISTRY ORDERABLES Performing Organization Address [facility]/ZIP Co de Phone Number [facility] [place] [address] * POCT Glucose (10/03/2022 6:39 AM EDT) Glucose, POC 161 65 - 199 mg/dL [facility] Comment: Supplemental ranges: <140 mg/dL before meals <180 mg/dL all other times of the day Blood 10/03/2022 6:39 AM EDT 10/03/2022 6:39 AM EDT Sulaiman Medley DO POINT OF CARE TEST O RDERABLES Performing Organization Address [facility] Co de Phone Number [facility] [place] [address] * POCT Glucose (10/02/2022 4:44 PM EDT) Glucose, POC 158 65 - 199 mg/dL [facility] Comment: Supplemental ranges: <140 mg/dL before meals <180 mg/dL all other times of the day Blood 10/02/2022 4:44 PM EDT 10/02/2022 4:44 PM EDT Sulaiman Medley DO POINT OF CARE TEST O RDERABLES Performing Organization Address [facility] Co de Phone Number [facility] [place] [address] * POCT Glucose (10/02/2022 11:35 AM EDT) Glucose, POC 176 65 - 199 mg/dL [facility] Comment: Supplemental ranges: <140 mg/dL before meals <180 mg/dL all other times of the day Blood 10/02/2022 11:3 5 AM EDT 10/02/2022 11:35 AM EDT Sulaiman Medley DO POINT OF CARE TEST O RDERABLES Performing Organization Address [facility] Co de Phone Number [facility] [place] [address] * POCT Glucose (10/02/2022 6:58 AM EDT) Glucose, POC 155 65 - 199 mg/dL [facility] Comment: Supplemental ranges: <140 mg/dL before meals <180 mg/dL all other times of the day Blood 10/02/2022 6:58 AM EDT 10/02/2022 6:58 AM EDT Sulaiman Medley DO POINT OF CARE TEST O RDERABLES Performing Organization Address City/State/[facility] Co de Phone Number [facility] [address] * Phosphorus (10/02/2022 6:28 AM EDT) Phosphorus 3.1 2.5 - 4.5 mg/dL [facility] Blood 10/02/2022 6:28 AM EDT 10/02/2022 6:34 AM EDT Narrative Resulting Agency Comment Spec In Lab Sulaiman Veras Galindo CHEMISTRY ORDERABLES Performing Organization Address City/[facility]/ZIP Co de Phone Number [facility] [place] [address] * (ABNORMAL) Basic Metabolic Panel (non-fasting) (10/02/2022 6:28 AM EDT) Glucose 148 65 - 199 mg/dL [facility] Comment:Diabetes: >=200 mg/d L plus symptoms Blood Urea Nitrogen 66(H) 10 - 20 mg/dL [facility] Creatinine 3.15(H) 0.80 - 1.50 mg/dL [facility] Comment:result rechecked-EWR Sodium 136 135 - 145 mmol/L [facility] Potassium 4.9 3.5 - 5.0 mmol/L [facility] Comment: Please note: ??Patients with WBC >100,000 may have falsely elevated Potassium levels. ??For accurate Potassium quantification in these patients send serum separator tube (gold top) for subsequent determinations. ??Contact the Clinical Chemistry Laboratory if there are any questions. Chloride 104 98 - 107 mmol/L [facility] Carbon Dioxide 19(L) 22 - 31 mmol/L [facility] Anion Gap 13 5 - 15 mmol/L [facility] Calcium 9.0 8.5 - 10.5 mg/dL [facility] Est Glomerular Filtration Rate 21(L) >=60 mL/min/1. 73 m?? [facility] Comment: This patient's estimated GFR [...] and symptoms in addition to eGFR. Blood 10/02/2022 6:28 AM EDT 10/02/2022 6:34 AM EDT Narrative Resulting Agency Comment Spec In Lab Sulaiman Medley DO CHEMISTRY ORDERABLES Performing Organization Address [facility] Co de Phone Number [facility] [place] [address] * Magnesium (10/02/2022 6:28 AM EDT) Magnesium 0.73 0.69 - 1.07 mmol/L [facility] Blood 10/02/2022 6:28 AM EDT 10/02/2022 6:34 AM EDT Narrative Resulting Agency Comment Spec In Lab Daphnie Zamora MD CHEMISTRY ORDERABLES Performing Organization Address [facility] Co de Phone Number [facility] [place] [address] * POCT Glucose (10/01/2022 8:30 PM EDT) Glucose, POC 159 65 - 199 mg/dL [facility] Comment: Supplemental ranges: <140 mg/dL before meals <180 mg/dL all other times of the day Blood 10/01/2022 8:30 PM EDT 10/01/2022 8:30 PM EDT Sulaiman Medley DO POINT OF CARE TEST O RDERABLES Performing Organization Address [facility] Co de Phone Number [facility] [place] [address] * (ABNORMAL) POCT Glucose (10/01/2022 4:10 PM EDT) Glucose, POC 238(H) 65 - 199 mg/dL [facility] Comment: Supplemental ranges: <140 mg/dL before meals <180 mg/dL all other times of the day Blood 10/01/2022 4:10 PM EDT 10/01/2022 4:10 PM EDT Sulaiman Medley DO POINT OF CARE TEST O RDERABLES Performing Organization Address [facility] Co de Phone Number [facility] [place] [address] * POCT Glucose (10/01/2022 11:30 AM EDT) Glucose, POC 183 65 - 199 mg/dL [facility] Comment: Supplemental ranges: <140 mg/dL before meals <180 mg/dL all other times of the day Blood 10/01/2022 11:3 0 AM EDT 10/01/2022 11:30 AM EDT Sulaiman Medley DO POINT OF CARE TEST O RDERABLES Performing Organization Address [facility] de Phone Number [facility] [place] [address] * Differential, Automated (10/01/2022 9:06 AM EDT) Neutrophil % 65.6 % [facility] Neutrophil Absolute 3.50 1.70 - 6.10 x10(3)/[facility] Lymph % 17.8 % [facility] Lymphocytes Abs 1.0 0.9 - 3.2 x10(3)/[facility] Monocyte % 11.4 % [facility] Monocyte Abs 0.6 0.3 - 0.9 x10(3)/[facility] Eos % 4.1 % [facility] Eosinophils Abs 0.2 0.0 - 0.4 x10(3)/[facility] Basophil % 0.9 % [facility] Baso Absolute 0.0 0.0 - 0.1 x10(3)/[facility] Immature Gran % 0.20 % [facility] Comment: Immature granulocytes(IG's)percentage and absolute count will include metamyelocytes, myelocytes, and promyelocytes. Blood smears from CBCs yielding IG's will be scanned manually for concordance. If this scan disagrees with the automated IG or if promyelocytes are noted, a manual differential will be performed. Immature Gran Absolute 0.01 0.00 - 0.04 x10(3)/mcL [facility] Blood 10/01/2022 9:06 AM EDT 10/01/2022 9:23 AM EDT Narrative Resulting Agency Comment Spec In Lab Pardeep Torres MD HEMATOLOGY ORDERABLE S [facility] [place] [address] * (ABNORMAL) Hemogram (10/01/2022 9:06 AM EDT) White Blood Cell 5.3 4.0 - 9.5 x10(3)/mc L [facility] Red Blood Cell 3.39(L) 4.58 - 5.54 x10(6)/mc L [facility] Hemoglobin 9.9(L) 13.7 - 16.5 g/dL [facility] Hematocrit 31.5(L) 40.5 - 48.5 % [facility] Mean Cell Volume 92.9 82.9 - 93.1 fL [facility] Mean Cell Hemoglobin 29.2 27.5 - 32.1 pg [facility] Mean Cell Hemoglobin Concentration 31.4(L) 32.0 - 35.7 g/dL [facility] Platelet 522(H) 145 - 357 x10(3)/mc L [facility] RDW Standard Deviation 52.6(H) 36.0 - 45.0 fL [facility] RDW coefficient of variation 15.4(H) 11.4 - 13.8 % [facility] Mean Platelet Volume 9.5 7.6 - 12.9 fL [facility] NRBC% auto 0.0 % [facility] NRBC Absolute 0.000 0.000 - 0.000 x10(3)/mc L [facility] Blood 10/01/2022 9:06 AM EDT 10/01/2022 9:23 AM EDT Narrative Resulting Agency Comment Spec In Lab Pardeep Torres MD HEMATOLOGY ORDERABLE S Performing Organization Address City/[facility]/ZIP Co de Phone Number [facility] [place] [address] * (ABNORMAL) Uric acid (10/01/2022 9:06 AM EDT) Uric Acid 3.4(L) 3.5 - 8.5 mg/dL [facility] Blood 10/01/2022 9:0 6 AM EDT 10/01/2022 9:23 AM EDT Narrative Resulting Agency Comment Spec In Lab Daphnie Zamora MD CHEMISTRY ORDERABLES Performing Organization Address [facility] Co de Phone Number [facility] [place] [address] * (ABNORMAL) Phosphorus (10/01/2022 9:06 AM EDT) Phosphorus 4.6(H) 2.5 - 4.5 mg/dL [facility] Blood 10/01/2022 9:06 AM EDT 10/01/2022 9:23 AM EDT Narrative Resulting Agency Comment Spec In Lab Daphnie Zamora MD CHEMISTRY ORDERABLES Performing Organization Address [facility] Co de Phone Number [facility] [place] [address] * (ABNORMAL) Basic Metabolic Panel (non-fasting) (10/01/2022 9:06 AM EDT) Glucose 149 65 - 199 mg/dL [facility] Comment:Diabetes: >=200 mg/d L plus symptoms Blood Urea Nitrogen 74(H) 10 - 20 mg/dL [facility] Creatinine 4.09(H) 0.80 - 1.50 mg/dL [facility] Sodium 134(L) 135 - 145 mmol/L [facility] Potassium 4.8 3.5 - 5.0 mmol/L [facility] Comment: Please note: ??Patients with WBC >100,000 may have falsely elevated Potassium levels. ??For accurate Potassium quantification in these patients send serum separator tube (gold top) for subsequent determinations. ??Contact the Clinical Chemistry Laboratory if there are any questions. Chloride 103 98 - 107 mmol/L [facility] Carbon Dioxide 18(L) 22 - 31 mmol/L [facility] Anion Gap 13 5 - 15 mmol/L [facility] Calcium 9.1 8.5 - 10.5 mg/dL [facility] Est Glomerular Filtration Rate 15(L) >=60 mL/min/1. 73 m?? [facility] Comment: This patient's estimated GFR [...] and symptoms in addition to eGFR. Blood 10/01/2022 9:06 AM EDT 10/01/2022 9:23 AM EDT Narrative Resulting Agency Comment Spec In Lab Daphnie Zamora MD CHEMISTRY ORDERABLES Performing Organization Address City/[facility] Co de Phone Number [facility] [place] [address] * (ABNORMAL) Lactate Dehydrogenase (10/01/2022 9:06 AM EDT) Lactate Dehydrogenase 268(H) 110 - 220 unit/L [facility] Blood 10/01/2022 9:06 AM EDT 10/01/2022 9:23 AM EDT Narrative Resulting Agency Comment Spec In Lab Daphnie Zamora MD CHEMISTRY ORDERABLES Performing Organization Address [facility]/ZIP Co de Phone Number [facility] [place] [address] * Magnesium (10/01/2022 9:06 AM EDT) Magnesium 0.79 0.69 - 1.07 mmol/L [facility] Blood 10/01/2022 9:06 AM EDT 10/01/2022 9:23 AM EDT Narrative Resulting Agency Comment Spec In Lab Daphnie Zamora MD CHEMISTRY ORDERABLES [facility] [place] [address] * (ABNORMAL) Basic Metabolic Panel (non-fasting) (10/01/2022 9:06 AM EDT) Glucose 149 65 - 199 mg/dL [facility] Comment:Diabetes: >=200 mg/d L plus symptoms Blood Urea Nitrogen 74(H) 10 - 20 mg/dL [facility] Creatinine 4.12(H) 0.80 - 1.50 mg/dL [facility] Sodium 135 135 - 145 mmol/L [facility] Potassium 4.7 3.5 - 5.0 mmol/L [facility] Comment: Please note: ??Patients with WBC >100,000 may have falsely elevated Potassium levels. ??For accurate Potassium quantification in these patients send serum separator tube (gold top) for subsequent determinations. ??Contact the Clinical Chemistry Laboratory if there are any questions. Chloride 103 98 - 107 mmol/L [facility] Carbon Dioxide 18(L) 22 - 31 mmol/L [facility] Anion Gap 14 5 - 15 mmol/L [facility] Calcium 9.1 8.5 - 10.5 mg/dL [facility] Est Glomerular Filtration Rate 15(L) >=60 mL/min/1. 73 m?? [facility] Comment: This patient's estimated GFR [...] and symptoms in addition to eGFR. Blood 10/01/2022 9:06 AM EDT 10/01/2022 9:23 AM EDT Narrative Resulting Agency Comment Spec In Lab Daphnie Zamora MD CHEMISTRY ORDERABLES Performing Organization Address [facility] Co de Phone Number [facility] [place] [address] * POCT Glucose (10/01/2022 7:45 AM EDT) Glucose, POC 147 65 - 199 mg/dL [facility] Comment: Supplemental ranges: <140 mg/dL before meals <180 mg/dL all other times of the day Blood 10/01/2022 7:45 AM EDT 10/01/2022 7:45 AM EDT Daphnie Zamora MD POINT OF CARE TEST O RDERABLES Performing Organization Address [facility] Co de Phone Number [facility] [place] [address] * POCT Glucose (10/01/2022 12:46 AM EDT) Glucose, POC 165 65 - 199 mg/dL [facility] Comment: Supplemental ranges: <140 mg/dL before meals <180 mg/dL all other times of the day Blood 10/01/2022 12:4 6 AM EDT 10/01/2022 12:46 AM EDT Daphnie Zamora MD POINT OF CARE TEST O RDERABLES Performing Organization Address [facility] Co de Phone Number [facility] [place] [address] * (ABNORMAL) Osmolality (10/01/2022 12:09 AM EDT) Osmolality 313(H) 275 - 295 mOsm/kg [facility] Blood Venous Draw / Unknown 10/01/2022 12:09 AM EDT 10/01/2022 12:15 AM EDT Narrative Resulting Agency Comment Spec In Lab Reinaldo Barron MD CHEMISTRY ORDERABLE S Performing Organization Address [facility] Co de Phone Number [facility] [place] [address] * (ABNORMAL) Basic Metabolic Panel (non-fasting) (10/01/2022 12:09 AM EDT) Glucose 153 65 - 199 mg/dL [facility] Comment:Diabetes: >=200 mg/d L plus symptoms Blood Urea Nitrogen 75(H) 10 - 20 mg/dL [facility] Creatinine 4.19(H) 0.80 - 1.50 mg/dL [facility] Sodium 135 135 - 145 mmol/L [facility] Potassium 5.1(H) 3.5 - 5.0 mmol/L [facility] Comment: Please note: ??Patients with WBC >100,000 may have falsely elevated Potassium levels. ??For accurate Potassium quantification in these patients send serum separator tube (gold top) for subsequent determinations. ??Contact the Clinical Chemistry Laboratory if there are any questions. Chloride 106 98 - 107 mmol/L [facility] Carbon Dioxide 18(L) 22 - 31 mmol/L [facility] Anion Gap 11 5 - 15 mmol/L [facility] Calcium 8.8 8.5 - 10.5 mg/dL [facility] Est Glomerular Filtration Rate 15(L) >=60 mL/min/1. 73 m?? [facility] Comment: This patient's estimated GFR [...] and symptoms in addition to eGFR. Blood 10/01/2022 12:0 9 AM EDT 10/01/2022 12:13 AM EDT Narrative Resulting Agency Comment Spec In Lab Daphnie Zamora MD CHEMISTRY ORDERABLES [facility] [place] [address] * (ABNORMAL) POCT Glucose (09/30/2022 10:01 PM EDT) Glucose, POC 203(H) 65 - 199 mg/dL [facility] Comment: Supplemental ranges: <140 mg/dL before meals <180 mg/dL all other times of the day Blood 09/30/2022 10:0 1 PM EDT 09/30/2022 10:01 PM EDT Daphnie Zamora MD POINT OF CARE TEST O RDERABLES Performing Organization Address [facility] Co de Phone Number [facility] [place] [address] * (ABNORMAL) POCT Glucose (09/30/2022 8:45 PM EDT) Glucose, POC 221(H) 65 - 199 mg/dL [facility] Comment: Supplemental ranges: <140 mg/dL before meals <180 mg/dL all other times of the day Blood 09/30/2022 8:45 PM EDT 09/30/2022 8:45 PM EDT Daphnie Zamora MD POINT OF CARE TEST O RDERABLES Performing Organization Address [facility] Co de Phone Number [facility] [place] [address] * (ABNORMAL) Lactate Dehydrogenase (09/30/2022 7:10 PM EDT) Lactate Dehydrogenase 271(H) 110 - 220 unit/L [facility] Blood 09/30/2022 7:10 PM EDT 09/30/2022 7:14 PM EDT Narrative Resulting Agency Comment Spec In Lab Daphnie Zamora MD CHEMISTRY ORDERABLES Performing Organization Address City/[facility]/ZIP Co de Phone Number [facility] [place] [address] * (ABNORMAL) POCT Glucose (09/30/2022 5:11 PM EDT) Glucose, POC 215(H) 65 - 199 mg/dL [facility] Comment: Supplemental ranges: <140 mg/dL before meals <180 mg/dL all other times of the day Blood 09/30/2022 5:11 PM EDT 09/30/2022 5:11 PM EDT Daphnie Zamora MD POINT OF CARE TEST O RDERABLES [facility] [place] [address] * ECHO COMPLETE W CONTRAST (09/30/2022 5:05 PM EDT) EF 27 [facility] Anatomical Region Laterality Modality Cardiac Other 09/30/2022 2:57 PM EDT Narrative 09/30/2022 5:15 PM EDT ? Echocardiogram Report Name: HUBER MOSHER ?Study Date: 09/30/2022 02:57 PM ?BP: 126/71 mmHg ?Patient Location: [place] [id number] B ?HR: 90 : 1955 ?Height: 180 cm ? Account: [id number] Age: 67 yrs ?Weight: 87 kg Gender: Male ? BSA: 2.1 m2 Ordering Physician: DAPHNIE ZAMORA Referring Physician: VICTORIA VALENZUELA Performed By: Yesenia Hubbard RDCS Interpretation Summary Wall thickness is normal. Left [...] below. No prior study available for comparison. Procedure Complete-[id number]. Left Ventricle Wall thickness is normal. The left ventricular ejection fraction is 27% by Burrell's biplane. Left ventricular systolic function is severely reduced. Right Ventricle Right ventricle is mildly dilated. Right ventricular systolic function is normal. Left Atrium The left atrium is normal. Right Atrium The right atrium is normal. Aortic Valve The aortic valve is not well visualized. There is no aortic stenosis. There is no aortic regurgitation. Mitral Valve The mitral valve is structurally normal. There is moderate to severe mitral regurgitation. Tricuspid Valve The tricuspid valve is structurally and functionally normal. There is moderate to severe tricuspid regurgitation. Pulmonic Valve The pulmonic valve is not well visualized. Great Arteries The aortic root is of normal size. No abnormalities are identified. Ascending aorta is normal in size. Venous Inferior vena cava is normal in size. Inferior vena cava collapse less than 50% with respiration. Hemodynamics The estimated right atrial pressure is 8mmHg. The peak right ventricular systolic pressure is 69 mmHg. There is Grade III LV diastolic dysfunction (restriction with markedly elevated left ventricular filling pressure). Ejection Fraction ?2D Measurements ? Volumes EF(MOD-bp): 27.8 % ?IVSd: 1.0 cm ? LAV(MOD- bp) Indexed: ?LVIDd: 5.3 cm ?LVIDs: 4.9 cm ?27.5 ml/m2 ?LVPWd: 1.0 cm ?RA A4Cs_phl: 17.7 cm2 ?LV mass(C)d: 207.6 grams ? EDV (MOD-bp) Index: 88.2 ? ESV (MOD-bp) Index: 63.7 ?LV mass(C)dI: 100.4 grams/m2 ?? SV(LVOT): 49.3 ml ?Ao root diam: 3.2 cm ?Ao root diam index: 1.6 ?SI(LVOT): 23.8 ml/m2 ?asc Aorta Diam: 3.2 cm ?LVOT diam: 2.1 cm ?TAPSE_phl: 3.0 cm Doppler TR max bernarda: 375.9 cm/sec LV V1 VTI: 14.7 cm Ao V2 VTI: 18.2 cm Ao Max: 98.7 cm/sec Ao valve max: 3.9 mmHg Ao valve mean: 2.2 mmHg MV E max bernarda: 112.1 cm/sec MV A max bernarda: 56.6 cm/sec MV E/A: 2.0 MV dec time: 0.12 sec Lat Peak E' Bernarda: 7.3 cm/sec E/ e' (lat): 15.4 Med Peak E' Bernarda: 7.0 cm/sec E/e' (med): 16.1 E/e' Average: 15.7 ROZ(I,D): 2.7 cm2 Dimensionless index Aov: 0.81 MV mean P.7 mmHg I ?WMSI = 1.63 ? % Normal = 63 ?Segments ??Size X - Cannot ?2 - ?4 - ?1-2 ? small Interpret ?1 - Normal ?? Hypokinetic 3 - Akinetic Dyskinetic ?? 3-5 ? moderate 5 - ? 6-14 ?large Aneurysmal ?15-16 ?? diffuse Procedure Note Tha Jacobs MD - 09/30/2022 Echocardiogram Report Name: HUBER MOSHER Study Date: 09/30/2022 02:57 PM BP: 126/71mmHg Patient Location: [address] HR: 90 : 1955 Height: 180 cm Account:[id number] Age: 67 yrs Weight: 87 kg Gender: Male BSA: 2.1 m2 Ordering Physician: DAPHNIE ZAMORA Referring Physician: VICTORIA VALENZUELA Performed By: Yesenia Hubbard RDCS Interpretation Summary Wall thickness is normal. Left ventricular systolic function is severelyreduced. The left ventricular ejection fraction is 27% by Burrell's biplane withantero and apical akinesis (see linked PDF). No LV clot seen. The RV is mildly dilated with probably normal systolic function. There is moderate to severe (3+) mitral regurgitation. There is moderate (2+) tricuspid regurgitation. The estimated right atrial pressure is 8mmHg. The peak right ventricularsystolic pressure is 69 mmHg. Other details as noted below. No prior study available for comparison. Procedure Complete-[id number]. Left Ventricle Wall thickness is normal. The left ventricular ejection fraction is 27%by Burrell's biplane. Left ventricular systolic function is severelyreduced. Right Ventricle Right ventricle is mildly dilated. Right ventricular systolic function isnormal. Left Atrium The left atrium is normal. Right Atrium The right atrium is normal. Aortic Valve The aortic valve is not well visualized. There is no aortic stenosis.There is no aortic regurgitation. Mitral Valve The mitral valve is structurally normal. There is moderate to severemitral regurgitation. Tricuspid Valve The tricuspid valve is structurally and functionally normal. There ismoderate to severe tricuspid regurgitation. Pulmonic Valve The pulmonic valve is not well visualized. Great Arteries The aortic root is of normal size. No abnormalities are identified.Ascending aorta is normal in size. Venous Inferior vena cava is normal in size. Inferior vena cava collapse lessthan 50% with respiration. Hemodynamics The estimated right atrial pressure is 8mmHg. The peak right ventricularsystolic pressure is 69 mmHg. There is Grade III LV diastolic dysfunction(restriction with markedly elevated left ventricular filling pressure). Ejection Fraction 2D Measurements Volumes EF(MOD-bp): 27.8 % IVSd: 1.0 cm LAV(MOD-bp)Indexed: LVIDd: 5.3 cm LVIDs: 4.9 cm 27.5 ml/m2 LVPWd: 1.0 cm RA A4Cs_phl: 17.7cm2 LV mass(C)d: 207.6 grams EDV (MOD-bp)Index: 88.2 ESV (MOD-bp)Index: 63.7 LV mass(C)dI: 100.4 grams/m2 SV(LVOT): 49.3ml Ao root diam: 3.2 cm Ao root diam index: 1.6 SI(LVOT): 23.8ml/m2 asc Aorta Diam: 3.2 cm LVOT diam: 2.1 cm TAPSE_phl: 3.0 cm Doppler TR max bernarda: 375.9 cm/sec LV V1 VTI: 14.7 cm Ao V2 VTI: 18.2 cm Ao Max: 98.7 cm/sec Ao valve max: 3.9 mmHg Ao valve mean: 2.2 mmHg MV E max bernarda: 112.1 cm/sec MV A max bernarda: 56.6 cm/sec MV E/A: 2.0 MV dec time: 0.12 sec Lat Peak E' Bernarda: 7.3 cm/sec E/ e' (lat): 15.4 Med Peak E' Bernarda: 7.0 cm/sec E/e' (med): 16.1 E/e' Average: 15.7 ROZ(I,D): 2.7 cm2 Dimensionless index Aov: 0.81 MV mean P.7 mmHg I WMSI = 1.63 % Normal = 63 SegmentsSize X - Cannot 2 - 4 - 1-2small Interpret 1 - Normal Hypokinetic 3 - Akinetic Dyskinetic 3-5moderate 5 - 6-14large Aneurysmal 15-16diffuse Daphnie Zamora MD ECHO ORDERABLES * Uric acid (09/30/2022 5:00 PM EDT) Uric Acid 3.7 3.5 - 8.5 mg/dL [facility] Blood Venous Draw / Unknown 09/30/2022 5:00 PM EDT 09/30/2022 5:16 PM EDT Narrative Resulting Agency Comment Spec In Lab Daphnie Zamora MD CHEMISTRY ORDERABLES [facility] [place] [address] * (ABNORMAL) Phosphorus (09/30/2022 5:00 PM EDT) Phosphorus 6.1(H) 2.5 - 4.5 mg/dL [facility] Blood Venous Draw / Unknown 09/30/2022 5:00 PM EDT 09/30/2022 5:16 PM EDT Narrative Resulting Agency Comment Spec In Lab Daphnie Zamora MD CHEMISTRY ORDERABLES Performing Organization Address City/[facility]/ZIP Co de Phone Number [facility] [place] [address] * Lactate Dehydrogenase (09/30/2022 5:00 PM EDT) Lactate Dehydrogenase Not Perf 110 - 220 [facility] Comment: Called by: Bernardo, Read back by: Veronica Meyers, Date/Time:09/30/22 17:48. Unable to quantitate due to sample hemolysis. ??Sample redraw suggested. Blood Venous Draw / Unknown 09/30/2022 5:00 PM EDT 09/30/2022 5:16 PM EDT Narrative Resulting Agency Comment Spec In Lab Daphnie Zamora MD CHEMISTRY ORDERABLES Performing Organization Address City/[facility]/ZIP Co de Phone Number [facility] [place] [address] * (ABNORMAL) Basic Metabolic Panel (non-fasting) (09/30/2022 5:00 PM EDT) Glucose 202(H) 65 - 199 mg/dL [facility] Comment:Diabetes: >=200 mg/d L plus symptoms Blood Urea Nitrogen 75(H) 10 - 20 mg/dL [facility] Creatinine 4.67(H) 0.80 - 1.50 mg/dL [facility] Sodium 132(L) 135 - 145 mmol/L [facility] Potassium 5.6(H) 3.5 - 5.0 mmol/L [facility] Comment: Please note: ??Patients with WBC >100,000 may have falsely elevated Potassium levels. ??For accurate Potassium quantification in these patients send serum separator tube (gold top) for subsequent determinations. ??Contact the Clinical Chemistry Laboratory if there are any questions. Chloride 105 98 - 107 mmol/L [facility] Carbon Dioxide 12(L) 22 - 31 mmol/L [facility] Anion Gap 15 5 - 15 mmol/L [facility] Calcium 8.4(L) 8.5 - 10.5 mg/dL [facility] Est Glomerular Filtration Rate 13(L) >=60 mL/min/1. 73 m?? [facility] Comment: This patient's estimated GFR [...] and symptoms in addition to eGFR. Blood 09/30/2022 5:00 PM EDT 09/30/2022 5:14 PM EDT Narrative Resulting Agency Comment Spec In Lab Daphnie Zamora MD CHEMISTRY ORDERABLES [facility] [place] [address] * (ABNORMAL) Blood Gas Venous ([facility]) (09/30/2022 12:20 PM EDT) pH, Venous 7.31(L) 7.32 - 7.42 [facility] PCO2, Venous 29(L) 41 - 51 mmHg [facility] PO2, Venous 27 25 - 40 mmHg [facility] Bicarbonate, Venous 14.2 mmol/L [facility] Base Excess, Venous -12.1 mmol/L [facility] Hgb Blood Gas Not Perf 13.7 - 16.5 g/dL [facility] Comment: Called by: CARLEY, Read back by: Sandy Meyers, Date/Time:09/30/22 12:43. Short sample-no coox results. Oxyhemoglobin, Venous Not Perf % [facility] Carboxyhemoglob in, Venous Not Perf % [facility] Comment: Nonsmokers: 0.5-1.5% COHB Smokers: Variable, but usually less than 10% Toxic: 20-30% COHB Lethal: Greater than 60% COHB Methemoglobin, Venous Not Perf <=1.5 % [facility] Na Whole Blood 135 135 - 145 mmol/L [facility] K Whole Blood 5.1(H) 3.5 - 5.0 mmol/L [facility] Comment: Please note: Patients with WBC >100,000 may have falsely elevated Potassium levels. Contact the Clinical Chemistry Laboratory if there are any questions. ICa Whole Blood 1.18 1.15 - 1.33 mmol/L [facility] Comment: Note: ??Total bilirubin higher than 20 mg/dL may lead to falsely low ionized calcium. CL Whole Blood 106 98 - 107 mmol/L [facility] Gluc Whole Bld 109 65 - 199 mg/dL [facility] Comment:Diabetes: >=200 mg/d L plus symptoms Lactate WB 1.3 0.5 - 2.2 mmol/L [facility] Blood Gas Source Venous [facility] Blood Venous Draw / Unknown 09/30/2022 12:20 PM EDT 09/30/2022 12:30 PM EDT Narrative Resulting Agency Comment Spec In Lab Daphnie Zamora MD CHEMISTRY ORDERABLES [facility] [place] [address] * Lavender Tube HOLD (09/30/2022 12:18 PM EDT) Pathologist [facility] Lavender Hold Sample in lab. [facility] Blood Venous Draw / Unknown 09/30/2022 12:18 PM EDT 09/30/2022 12:43 PM EDT Daphnie Zamora MD HEMATOLOGY ORDERABLE S Performing Organization Address City/[facility]/ZIP Co de Phone Number [facility] [place] [address] * APTT (09/30/2022 12:18 PM EDT) Pathologist [facility] Partial Thromboplastin Time 29 25 - 37 sec [facility] Comment: The PTT is NOT appropriate for heparin monitoring. Use the Anti-Xa level for heparin monitoring (HEP UFH) or LMWH monitoring (HEP LMW). A PTT less than 37 seconds generally indicates adequate hemostasis. Blood 09/30/2022 12:1 8 PM EDT 09/30/2022 12:42 PM EDT Narrative Resulting Agency Comment Spec In Lab Daphnie Zamora MD HEMATOLOGY ORDERABLE S Performing Organization Address City/[facility] Co de Phone Number [facility] [place] [address] * (ABNORMAL) Prothrombin Time (09/30/2022 12:18 PM EDT) Pathologist [facility] Prothrombin Time 15.4(H) 9.4 - 12.5 sec [facility] International Normalization Ratio 1.3 [facility] Comment: An INR <2.0 indicates adequate procoagulant activity for hemostasis in most patients without underlying bleeding disorders, though the INR may not adequately reflect hemostatic capacity in patients with liver disease and synthetic impairment. The recommended target INR range for therapeutic anticoagulation is 2.0 ? 3.0 for most applications, though lower and higher ranges may be appropriate depending on clinical circumstances. Blood 09/30/2022 12:1 8 PM EDT 09/30/2022 12:42 PM EDT Narrative Resulting Agency Comment Spec In Lab Daphnie Zamora MD HEMATOLOGY ORDERABLE S Performing Organization Address City/[facility] Co de Phone Number [facility] [place] [address] * Uric acid (09/30/2022 12:18 PM EDT) Uric Acid 4.5 3.5 - 8.5 mg/dL [facility] Blood 09/30/2022 12:1 8 PM EDT 09/30/2022 12:42 PM EDT Narrative Resulting Agency Comment Spec In Lab aDphnie Zamora MD CHEMISTRY ORDERABLES Performing Organization Address [facility] Co de Phone Number [facility] [place] [address] * (ABNORMAL) Phosphorus (09/30/2022 12:18 PM EDT) Phosphorus 6.6(H) 2.5 - 4.5 mg/dL [facility] Blood 09/30/2022 12:1 8 PM EDT 09/30/2022 12:42 PM EDT Narrative Resulting Agency Comment Spec In Lab Daphnie Zamora MD CHEMISTRY ORDERABLES Performing Organization Address [facility] Co de Phone Number [facility] [place] [address] * (ABNORMAL) Basic Metabolic Panel (non-fasting) (09/30/2022 12:18 PM EDT) Glucose 112 65 - 199 mg/dL [facility] Comment:Diabetes: >=200 mg/d L plus symptoms Blood Urea Nitrogen 77(H) 10 - 20 mg/dL [facility] Creatinine 5.15(H) 0.80 - 1.50 mg/dL [facility] Sodium 134(L) 135 - 145 mmol/L [facility] Potassium 5.2(H) 3.5 - 5.0 mmol/L [facility] Comment: Please note: ??Patients with WBC >100,000 may have falsely elevated Potassium levels. ??For accurate Potassium quantification in these patients send serum separator tube (gold top) for subsequent determinations. ??Contact the Clinical Chemistry Laboratory if there are any questions. Chloride 104 98 - 107 mmol/L [facility] Carbon Dioxide 14(L) 22 - 31 mmol/L [facility] Anion Gap 16(H) 5 - 15 mmol/L [facility] Calcium 8.9 8.5 - 10.5 mg/dL [facility] Est Glomerular Filtration Rate 11(L) >=60 mL/min/1. 73 m?? [facility] Comment: This patient's estimated GFR [...] and symptoms in addition to eGFR. Blood 09/30/2022 12:1 8 PM EDT 09/30/2022 12:42 PM EDT Narrative Resulting Agency Comment Spec In Lab Daphnie Zamora MD CHEMISTRY ORDERABLES Performing Organization Address City/[facility]/ZIP Co de Phone Number [facility] [place] [address] * (ABNORMAL) Lactate Dehydrogenase (09/30/2022 12:18 PM EDT) Lactate Dehydrogenase 275(H) 110 - 220 unit/L [facility] Blood 09/30/2022 12:1 8 PM EDT 09/30/2022 12:42 PM EDT Narrative Resulting Agency Comment Spec In Lab Daphnie Zamora MD CHEMISTRY ORDERABLES [facility] [place] [address] * POCT Glucose (09/30/2022 12:07 PM EDT) Glucose, POC 113 65 - 199 mg/dL [facility] Comment: Supplemental ranges: <140 mg/dL before meals <180 mg/dL all other times of the day Blood 09/30/2022 12:0 7 PM EDT 09/30/2022 12:07 PM EDT Daphnie Zamora MD POINT [place] [address] * CT Guided Biopsy Lymph Node (Chest/Abd/Pelvis) (09/30/2022 11:03 AM EDT) Anatomical Region Laterality Modality Computed Tomogra phy Narrative 09/30/2022 11:07 AM EDT Table formatting from the original result was not included. Images from the original result were not included. IR PROCEDURE NOTE Procedure: CT-guided pelvic node biopsy. Indication for Procedure: Per Sonal MOLINA, Huber Mosher is a 67 y.o. male with PMH of new diffuse lymphadenopathy who presents to Interventional Radiology to undergo CT guided biopsy of either the retroperitoneal adenopathy or right external iliac node - location up to IR provider's discretion. Patient has a PMH of T2DM, HLD, hypothyroidism, with an elevated PSA w/ neative biopsy who presented to at the instruction of his PCP for imaging findings concerning for hydronephrosis and diffuse retroperitoneal lymphadenopathy. IR was consulted given concern for leukemia vs lymphoma. Procedure events and findings: After obtaining informed consent, pt was positioned supine on the CT table. Initial non-contrast CT was obtained showing pelvic adenopathy as on prior CT. ??A site for bx was chosen and identified on the skin with the assistance of the CT laser lights. ??Due to the painful nature of the procedure, patient received split doses of intravenous fentanyl from the IR nurse while pulse, pressure, and oxygen saturation were continuously monitored. The skin was marked and prepped, maximum sterile barrier technique was used throughout. ??Local anesthesia provided with 1% lidocaine. A 19 ga coaxial needle was directed to an enlarged node anterior to the right external iliac vessels with CT fluoro guidance. ??Five 20-gauge core biopsies were obtained, 3 submitted in formalin and 2 in saline. ??Post scan performed with no evidence of hematoma. Medications: Fentanyl 50 mcg IV, 1% Lidocaine <10ccs subcutaneous. Est Blood Loss: <5cc. Complications: ??No immediate. Impression: 1. ??Pelvic adenopathy as on prior CT. 2. ??CT-guided biopsy of enlarged node anterior to right external iliac vessels, multiple 20-gauge cores obtained. 3. ??Postbiopsy CT without evidence of complication. Resident/Fellow: None Attending: I, Dr. Sparks performed this procedure. Daphnie Zamora MD IMG CT ORDERABLES * Solid Tumor NGS Panel (09/30/2022 11:00 AM EDT) Tissue 09/30/2022 11:0 0 AM EDT 02/02/2023 3:10 PM EST Narrative Resulting Agency Comment Spec In Lab Vasile Sparks MD PATHOLOGY/CYTOLOGY O RDERABLES [facility] [place] [address] * (ABNORMAL) Surgical Pathology Report (09/30/2022 11:00 AM EDT) Final Diagnosis [id number] ? Location: [facility]; 0256; B The signing pathologist has (i) examined the relevant preparation(s) for the specimen(s) and (ii) rendered or confirmed the diagnosis(es). . ? Addendum ADDENDUM DISCUSSION This addendum is to report the results of MMR protein immunohistochemistry . ?? Block ? Antibody ? Result (Positive/Negative) ?? A1 ? MLH1 ?Positive, intact nuclear staining ?MSH2 ?Positive, intact nuclear staining ?MSH6 ?Positive, intact nuclear staining ?PMS2 ?Positive, intact nuclear staining ?? Interpretation: ?? Immunostains for MLH1, MSH2, MSH6 and PMS2 reveal intact nuclear staining in tumor ?cells. ??In a very small percentage of tumors, there may still be an underlying ?hereditary defect in these DNA mismatch repair genes despite intact nuclear ?expression of the protein in tumor cells ?? . Genetic counseling and/or additional ?workup is indicated in patients with a family history that meets current criteria ?for HNPCC screening. ?? Further testing for microsatellite instability in available ?in the [facility] ([facility]) if the ?clinical suspicion for Mcnulty syndrome remains high despite the intact mismatch ?repair protein expression. Electronically signed by: ?Rohan DOBSON, Olvin Petty Verified: ??03/22/2023 14:58 ??Pathologist Performed at: ??-[facility] [place], [place] [address] Care Attendant: Tramaine Dixon MD, TEE, ??CLIA Certificate: [id number] ?Surgical Pathology DIAGNOSIS A - Lymph node, biopsy: - Metastatic carcinoma, consistent with prostatic origin (see discussion) Electronically signed by: ?Ken DOBSON, PhD, Bob Leon Verified: ??10/04/2022 8:03 ?? Dermatopathologist, Bone & Soft Tissue Pathologist Performed at: ??-[facility] [place], [place] [address] Care Attendant: Tramaine Dixon MD, FCAP, ??CLIA Certificate: [id number] DISCUSSION Lymphoid tissue is not readily identified. THIS RESULT REQUIRES PHYSICIAN/A.P.P. FOLLOW UP ADDITIONAL STUDIES Immunohistochemistry Studies: Formalin-fixed, paraffin-embedded tissue sections are studied using the polymer technique with appropriate positive and negative controls. ?These IHC studies provide the pathologist with adjunctive diagnostic information. Antibody specificity has been verified by testing antibodies on a series of in-house tissues with known immunohistochemical performance characteristics. The clinical interpretation of any antibody positive staining or its absence is evaluated within the context of clinical presentation, morphology, histopathological criteria and other diagnostic tests. Block ? Antibody ?Result (Positive/Negative) A1 ? [id number] ? Positive (patchy) ? CK7 ?? Positive (focal) ? NKX3.1 ?? Positive . ADDITIONAL STUDIES ? PSA ?? Positive (focal) ? AR ?? Positive ? CK20 ?? Negative ? TTF1 ?? Negative ? Napsin A ?? Negative ? CDX2 ?? Negative ? p40 ? Negative SPECIMEN(S) SUBMITTED A - lymph node, biopsy (Multiple) CLINICAL INFORMATION 67-year-old male with diffuse LAD, presenting with TLS concern for underlying malignancy SPECIMEN PROCESSING A - Labeled/Fixative: Lymph node, formalin. Quantity/Size: Fragments, ranging from 0.1 x 0.1 cm to 1.0 x 0.1 cm. Tissue Description: Soft, white tissues. Sections/Processing: Submitted in toto ??in 2 cassettes labeled A1-A2. ??sdy(A) 03/22/2023 2:58 PM EST [facility] LYMPH NODE SPECIMEN / Unknown 09/30/2022 11:00 AM EDT 09/30/2022 11:00 AM EDT Vasile Sparks MD PATHOLOGY/CYTOLOGY O RDERABLES [facility] [place] [address] [facility] [place] [address] * Flow Cytometry Report (09/30/2022 11:00 AM EDT) Flow Cytometry Report [id number] ? Location: [facility]; [facility]; The signing pathologist has (i) examined the relevant preparation(s) for the specimen(s) and (ii) rendered or confirmed the diagnosis(es). . ?Flow Cytometry DIAGNOSIS Flow cytometric diagnosis: ?Normal immunophenotyping results. No monotypic B-cell population or phenotypically abnormal T-cell population or increase in blasts is detected. Electronically signed by: ?German Salguero MD Verified: ??10/02/2022 15:54 ??Hematopathologist Performed at: ??-[facility] [place], [place] [address] Care Attendant: Tramaien Dixon MD, AP, ??CLIA Certificate: [id number] DISCUSSION Blasts based on CD45 expression and orthogonal light scatter, are not increased. The CD19 positive B-cells have a polytypic expression of surface immunoglobulin light chain ([place]:Lambda ratio at 1.1). The T-cells are an admixture of CD4+ and CD8+ T lymphocytes (ratio of 0.6). No loss or atypical intensity distributions are seen for any marquez T antigen (CD2, 3, 4+8, 5, 7). There is no increase in NY73-japflaax/CD3-ne g NK cells. Flow analysis is an ancillary study. A definite diagnosis requires correlation with the morphologic features of this process and if necessary, correlation with other ancillary studies like immunohistochemistry , enzyme cytochemistry and/or cyto/ molecular genetics. This test was developed and its performance characteristics determined by the Clinical Flow Cytometry Laboratory at [facility]. It has not been cleared or approved by the U.S. Food and Drug Administration. ??The FDA has determined that such clearance or approval is not necessary. ??This test is used for clinical purposes. ??It should not be regarded as investigational or for research. This laboratory is certified under the Clinical Laboratory Improvement Act of 1988 (CLIA) as qualified to perform high complexity clinical laboratory testing. SPECIMEN PROCESSING [id number] Cells for immunophenotypic analysis were derived from tissue. CD45 vs side scatter gating was utilized to identify a lymphoid analysis region that comprises approximately 63-68% of all cells. The following markers were assessed: CD2, CD3, CD4, CD5, CD7, CD8, CD10, CD19, CD45, CD56, kappa light chain, and lambda light chain. CLINICAL INFORMATION adenopathy [facility] 09/30/2022 11:0 0 AM EDT Vasile Sparks MD PATHOLOGY/CYTOLOGY O RDERABLES Performing Organization Address [facility] Co de Phone Number [facility] [place] [address] * Immunophenotyping Flow Cytometry (09/30/2022 11:00 AM EDT) Immunophenotyping Flow See Comment [facility] Comment: When completed by the Pathologist, the Flow Cytometry Report ([id number]) will display under the Pathology Results section within eD. Other 09/30/2022 11:0 0 AM EDT 09/30/2022 11:15 AM EDT Narrative Resulting Agency Comment Spec In Lab Vasile Sparks MD HEMATOLOGY ORDERABLE S Performing Organization Address [facility] Co de Phone Number [facility] [place] [address] * POCT Glucose (09/30/2022 7:48 AM EDT) Glucose, POC 116 65 - 199 mg/dL [facility] Comment: Supplemental ranges: <140 mg/dL before meals <180 mg/dL all other times of the day Blood 09/30/2022 7:48 AM EDT 09/30/2022 7:48 AM EDT Daphnie Zamora MD POINT OF CARE TEST O RDERABLES Performing Organization Address City/[facility]/ZIP Co de Phone Number [facility] [place] [address] * Specimen to Pathology (09/30/2022 7:45 AM EDT) AP Specimen 09/30/2022 7:45 AM EDT 09/30/2022 7:45 AM EDT Narrative [facility] - 09/30/2022 7:45 AM EDT Specimen requisition ordered. ??Separate Pathology report to follow Vasile Sparks MD PATHOLOGY/CYTOLOGY O RDERABLES Performing Organization Address [facility] Co de Phone Number [facility] [place] [address] * (ABNORMAL) Hepatic Function Panel (09/30/2022 6:17 AM EDT) Protein, Total 7.5 6.1 - 8.0 g/dL [facility] Albumin 2.6(L) 3.2 - 5.2 g/dL [facility] Aspartate Aminotransferase 19 0 - 39 unit/L [facility] Alanine Aminotransferase 11 0 - 55 unit/L [facility] Alkaline Phosphatase 56 40 - 130 unit/L [facility] Bilirubin, Total 0.4 0.2 - 1.3 mg/dL [facility] Bilirubin, Direct 0.1 0.0 - 0.3 mg/dL [facility] Blood Venous Draw / Unknown 09/30/2022 6:17 AM EDT 09/30/2022 6:57 AM EDT Narrative Resulting Agency Comment Spec In Lab Daphnie Zamora MD CHEMISTRY ORDERABLES Performing Organization Address [facility] Co de Phone Number [facility] [place] [address] * TSH (09/30/2022 6:17 AM EDT) Thyroid Stimulating Hormone 3.16 0.27 - 4.20 mcIU/mL [facility] Comment: Reference Interval (mcIU/mL): Females: ??First Trimester: 0.23-3.88 ??Second Trimester: 0.22-3.90 ??Third Trimester: 0.44-4.66 Blood Venous Draw / Unknown 09/30/2022 6:17 AM EDT 09/30/2022 6:57 AM EDT Narrative Resulting Agency Comment Spec In Lab Daphnie Zamora MD CHEMISTRY ORDERABLES [facility] [place] [address] * Lavender Tube HOLD (09/30/2022 6:17 AM EDT) Lavender Hold Sample in lab. [facility] Blood Venous Draw / Unknown 09/30/2022 6:17 AM EDT 09/30/2022 6:54 AM EDT Pardeep Torres MD HEMATOLOGY ORDERABLE S Performing Organization Address City/[facility]/ZIP Co de Phone Number [facility] [place] [address] * (ABNORMAL) Phosphorus (09/30/2022 6:17 AM EDT) Phosphorus 6.8(H) 2.5 - 4.5 mg/dL [facility] Blood 09/30/2022 6:17 AM EDT 09/30/2022 6:53 AM EDT Narrative Resulting Agency Comment Spec In Lab Daphnie Zamora MD CHEMISTRY ORDERABLES Performing Organization Address City/[facility]/ZIP Co de Phone Number [facility] [place] [address] * Magnesium (09/30/2022 6:17 AM EDT) Magnesium 0.84 0.69 - 1.07 mmol/L [facility] Blood 09/30/2022 6:17 AM EDT 09/30/2022 6:53 AM EDT Narrative Resulting Agency Comment Spec In Lab Daphnie Zamora MD CHEMISTRY ORDERABLES Performing Organization Address City/[facility]/ZIP Co de Phone Number [facility] [place] [address] * (ABNORMAL) Basic Metabolic Panel (non-fasting) (09/30/2022 6:17 AM EDT) Glucose 104 65 - 199 mg/dL [facility] Comment:Diabetes: >=200 mg/d L plus symptoms Blood Urea Nitrogen 75(H) 10 - 20 mg/dL [facility] Creatinine 5.29(H) 0.80 - 1.50 mg/dL [facility] Sodium 133(L) 135 - 145 mmol/L [facility] Potassium 5.7(H) 3.5 - 5.0 mmol/L [facility] Comment: Please note: ??Patients with WBC >100,000 may have falsely elevated Potassium levels. ??For accurate Potassium quantification in these patients send serum separator tube (gold top) for subsequent determinations. ??Contact the Clinical Chemistry Laboratory if there are any questions. Chloride 108(H) 98 - 107 mmol/L [facility] Carbon Dioxide 12(L) 22 - 31 mmol/L [facility] Anion Gap 13 5 - 15 mmol/L [facility] Calcium 8.6 8.5 - 10.5 mg/dL [facility] Est Glomerular Filtration Rate 11(L) >=60 mL/min/1. 73 m?? [facility] Comment: This patient's estimated GFR [...] and symptoms in addition to eGFR. Blood 09/30/2022 6:17 AM EDT 09/30/2022 6:53 AM EDT Narrative Resulting Agency Comment Spec In Lab Daphnie Zamora MD CHEMISTRY ORDERABLES [facility] [place] [address] * (ABNORMAL) Lactate Dehydrogenase (09/30/2022 6:17 AM EDT) Lactate Dehydrogenase 312(H) 110 - 220 unit/L [facility] Blood 09/30/2022 6:17 AM EDT 09/30/2022 6:53 AM EDT Narrative Resulting Agency Comment Spec In Lab Daphnie Zamora MD CHEMISTRY ORDERABLES Performing Organization Address [facility] Co de Phone Number [facility] [address] * Uric acid (09/30/2022 6:17 AM EDT) Uric Acid 4.6 3.5 - 8.5 mg/dL [facility] Blood 09/30/2022 6:17 AM EDT 09/30/2022 6:53 AM EDT Narrative Resulting Agency Comment Spec In Lab Daphnie Zamora MD CHEMISTRY ORDERABLES Performing Organization Address [facility] de Phone Number [facility] [place] [address] * POCT Glucose (09/30/2022 1:07 AM EDT) Pathologist [facility] Glucose, POC 94 65 - 199 mg/dL [facility] Comment: Supplemental ranges: <140 mg/dL before meals <180 mg/dL all other times of the day Blood 09/30/2022 1:07 AM EDT 09/30/2022 1:07 AM EDT Daphnie Zamora MD POINT OF CARE TEST O RDERABLES Performing Organization Address [facility] Co de Phone Number [facility] [place] [address] * (ABNORMAL) Differential, Automated (09/30/2022 12:19 AM EDT) Neutrophil % 77.7 % [facility] Neutrophil Absolute 4.44 1.70 - 6.10 x10(3)/mc L [facility] Lymph % 8.7 % [facility] [place] Lymphocytes Abs 0.5(L) 0.9 - 3.2 x10(3)/mc L [facility] Monocyte % 9.3 % [facility] Monocyte Abs 0.5 0.3 - 0.9 x10(3)/[facility] Eos % 3.1 % [facility] Eosinophils Abs 0.2 0.0 - 0.4 x10(3)/[facility] Basophil % 1.0 % [facility] Baso Absolute 0.1 0.0 - 0.1 x10(3)/[facility] Immature Gran % 0.20 % [facility] Comment: Immature granulocytes(IG's)percentage and absolute count will include metamyelocytes, myelocytes, and promyelocytes. Blood smears from CBCs yielding IG's will be scanned manually for concordance. If this scan disagrees with the automated IG or if promyelocytes are noted, a manual differential will be performed. Immature Gran Absolute 0.01 0.00 - 0.04 x10(3)/[facility] Blood 09/30/2022 12:1 9 AM EDT 09/30/2022 12:35 AM EDT Narrative Resulting Agency Comment Spec In Lab Porter Kingston MD HEMATOLOGY ORDERABLE S [facility] [place] [address] * (ABNORMAL) Hemogram (09/30/2022 12:19 AM EDT) White Blood Cell 5.7 4.0 - 9.5 x10(3)/[facility] Red Blood Cell 2.85(L) 4.58 - 5.54 x10(6)/[facility] Hemoglobin 8.2(L) 13.7 - 16.5 g/dL [facility] Hematocrit 25.7(L) 40.5 - 48.5 % [facility] Mean Cell Volume 90.2 82.9 - 93.1 fL [facility] Mean Cell Hemoglobin 28.8 27.5 - 32.1 pg [facility] Mean Cell Hemoglobin Concentration 31.9(L) 32.0 - 35.7 g/dL [facility] Platelet 431(H) 145 - 357 x10(3)/mc L [facility] RDW Standard Deviation 50.4(H) 36.0 - 45.0 fL [facility] RDW coefficient of variation 15.0(H) 11.4 - 13.8 % [facility] Mean Platelet Volume 9.1 7.6 - 12.9 fL [facility] NRBC% auto 0.0 % [facility] NRBC Absolute 0.000 0.000 - 0.000 x10(3)/mc L [facility] Blood 09/30/2022 12:1 9 AM EDT 09/30/2022 12:35 AM EDT Narrative Resulting Agency Comment Spec In Lab Porter Kingston MD HEMATOLOGY ORDERABLE S Performing Organization Address City/[facility]/ZIP Co de Phone Number [facility] [place] [address] * POCT Glucose (09/29/2022 11:52 PM EDT) Glucose, POC 75 65 - 199 mg/dL [facility] Comment: Supplemental ranges: <140 mg/dL before meals <180 mg/dL all other times of the day Blood 09/29/2022 11:5 2 PM EDT 09/29/2022 11:52 PM EDT Daphnie Zamora MD POINT OF CARE TEST O RDERABLES Performing Organization Address [facility]/ZIP Co de Phone Number [facility] [place] [address] * Uric acid (09/29/2022 11:09 PM EDT) Uric Acid 5.1 3.5 - 8.5 mg/dL [facility] Blood Venous Draw / Unknown 09/29/2022 11:09 PM EDT 09/29/2022 11:15 PM EDT Narrative Resulting Agency Comment Spec In Lab Pardeep Torres MD CHEMISTRY ORDERABLES Performing Organization Address City/[facility]/ZIP Co de Phone Number [facility] [place] [address] * (ABNORMAL) Phosphorus (09/29/2022 11:09 PM EDT) Phosphorus 6.5(H) 2.5 - 4.5 mg/dL [facility] Blood 09/29/2022 11:0 9 PM EDT 09/29/2022 11:14 PM EDT Narrative Resulting Agency Comment Spec In Lab Daphnie Zamora MD CHEMISTRY ORDERABLES Performing Organization Address City/[facility]/ZIP Co de Phone Number [facility] [place] [address] * Magnesium (09/29/2022 11:09 PM EDT) Magnesium 0.82 0.69 - 1.07 mmol/L [facility] Blood 09/29/2022 11:0 9 PM EDT 09/29/2022 11:14 PM EDT Narrative Resulting Agency Comment Spec In Lab Daphnie Zamora MD CHEMISTRY ORDERABLES Performing Organization Address [facility] Co de Phone Number [facility] [place] [address] * (ABNORMAL) Basic Metabolic Panel (non-fasting) (09/29/2022 11:09 PM EDT) Glucose 81 65 - 199 mg/dL [facility] Comment:Diabetes: >=200 mg/d L plus symptoms Blood Urea Nitrogen 78(H) 10 - 20 mg/dL [facility] Creatinine 6.08(H) 0.80 - 1.50 mg/dL [facility] Sodium 133(L) 135 - 145 mmol/L [facility] Potassium 5.1(H) 3.5 - 5.0 mmol/L [facility] Comment: Please note: ??Patients with WBC >100,000 may have falsely elevated Potassium levels. ??For accurate Potassium quantification in these patients send serum separator tube (gold top) for subsequent determinations. ??Contact the Clinical Chemistry Laboratory if there are any questions. Chloride 104 98 - 107 mmol/L [facility] Carbon Dioxide 15(L) 22 - 31 mmol/L [facility] Anion Gap 14 5 - 15 mmol/L [facility] Calcium 8.4(L) 8.5 - 10.5 mg/dL [facility] Est Glomerular Filtration Rate 9(L) >=60 mL/min/1. 73 m?? [facility] Comment: This patient's estimated GFR [...] and symptoms in addition to eGFR. Blood 09/29/2022 11:0 9 PM EDT 09/29/2022 11:14 PM EDT Narrative Resulting Agency Comment Spec In Lab Daphnie Zamora MD CHEMISTRY ORDERABLES Performing Organization Address [facility] Co de Phone Number [facility] [address] * XR Fluoro No Rad <1Hr - OR Use (09/29/2022 10:48 PM EDT) Narrative Dicom, Auditing User - 09/29/2022 10:48 PM EDT This exam is auto-finalizing. No interpretation was done. Daphnie Zamora MD IMG FLUORO ORDERABLE S * POCT Glucose (09/29/2022 10:48 PM EDT) Glucose, POC 87 65 - 199 mg/dL [facility] Comment: Supplemental ranges: <140 mg/dL before meals <180 mg/dL all other times of the day Blood 09/29/2022 10:4 8 PM EDT 09/29/2022 10:48 PM EDT Daphnie Zamora MD POINT OF CARE TEST O RDERABLES Performing Organization Address City/[facility] Co de Phone Number [facility] [place] [address] * Urine Hold (09/29/2022 10:45 PM EDT) Hold, Urine Sample in lab. [facility] Urine Micro Spec / Unknown 09/29/2022 10:45 PM EDT 09/29/2022 10:54 PM EDT Comment:For culture and sens itivity Vasile Castañeda MD URINE ORDERABLES Performing Organization Address City/[facility]/ZIP Co de Phone Number [facility] [place] [address] * Urine culture Urine (09/29/2022 10:45 PM EDT) [facility] Urine Culture No growth (Less than 1,000 cfu/ml). [facility] Urine 09/29/2022 10:4 5 PM EDT 09/29/2022 11:10 PM EDT Comment:For culture and sens itivity Narrative Resulting Agency Comment Spec In Lab Daphnie Zamora MD MICROBIOLOGY - GENER AL ORDERABLES Performing Organization Address [facility]/ZIP Co de Phone Number [facility] [place] [address] * (ABNORMAL) POCT Glucose (09/29/2022 9:15 PM EDT) [facility] Signature Glucose, POC 59(L) 65 - 199 mg/dL [facility] Comment: Supplemental ranges: <140 mg/dL before meals <180 mg/dL all other times of the day Blood 09/29/2022 9:15 PM EDT 09/29/2022 9:15 PM EDT Daphnie Zamora MD POINT OF CARE TEST O RDERABLES Performing Organization Address City/[facility]/ZIP Co de Phone Number [facility] [place] [address] * (ABNORMAL) Phosphorus (09/29/2022 5:24 PM EDT) Phosphorus 6.5(H) 2.5 - 4.5 mg/dL [facility] Blood 09/29/2022 5:24 PM EDT 09/29/2022 5:32 PM EDT Narrative Resulting Agency Comment Spec In Lab Daphnie Zamora MD CHEMISTRY ORDERABLES Performing Organization Address [facility] Co de Phone Number [facility] [place] [address] * Magnesium (09/29/2022 5:24 PM EDT) Magnesium 0.88 0.69 - 1.07 mmol/L [facility] Blood 09/29/2022 5:24 PM EDT 09/29/2022 5:32 PM EDT Narrative Resulting Agency Comment Spec In Lab Daphnie Zamora MD CHEMISTRY ORDERABLES Performing Organization Address [facility] de Phone Number [facility] [place] [address] * (ABNORMAL) Basic Metabolic Panel (non-fasting) (09/29/2022 5:24 PM EDT) Glucose 65 65 - 199 mg/dL [facility] Comment:Diabetes: >=200 mg/d L plus symptoms Blood Urea Nitrogen 81(H) 10 - 20 mg/dL [facility] Creatinine 6.31(H) 0.80 - 1.50 mg/dL [facility] Sodium 131(L) 135 - 145 mmol/L [facility] Potassium 5.2(H) 3.5 - 5.0 mmol/L [facility] Comment: Please note: ??Patients with WBC >100,000 may have falsely elevated Potassium levels. ??For accurate Potassium quantification in these patients send serum separator tube (gold top) for subsequent determinations. ??Contact the Clinical Chemistry Laboratory if there are any questions. Chloride 103 98 - 107 mmol/L [facility] Carbon Dioxide 17(L) 22 - 31 mmol/L [facility] Anion Gap 11 5 - 15 mmol/L [facility] Calcium 9.0 8.5 - 10.5 mg/dL [facility] Est Glomerular Filtration Rate 9(L) >=60 mL/min/1. 73 m?? [facility] Comment: This patient's [...] and symptoms in addition to eGFR. Blood 09/29/2022 5:24 PM EDT 09/29/2022 5:32 PM EDT Narrative Resulting Agency Comment Spec In Lab Daphnie Zamora MD CHEMISTRY ORDERABLES Performing Organization Address [facility] Co de Phone Number [facility] [place] [address] * Uric acid (09/29/2022 5:24 PM EDT) Uric Acid 6.4 3.5 - 8.5 mg/dL [facility] Blood 09/29/2022 5:24 PM EDT 09/29/2022 5:32 PM EDT Narrative Resulting Agency Comment Spec In Lab Daphnie Zamora MD CHEMISTRY ORDERABLES Performing Organization Address City/[facility]/ZIP Co de Phone Number [facility] [place] [address] * (ABNORMAL) Lactate Dehydrogenase (09/29/2022 5:24 PM EDT) Lactate Dehydrogenase 300(H) 110 - 220 unit/L [facility] Blood 09/29/2022 5:24 PM EDT 09/29/2022 5:32 PM EDT Narrative Resulting Agency Comment Spec In Lab Daphnie Zamora MD CHEMISTRY ORDERABLES Performing Organization Address City/[facility]/ZIP Co de Phone Number [facility] [place] [address] * Uric Acid-Rasburicase (09/29/2022 1:52 PM EDT) Uric Acid 7.3 3.5 - 8.5 mg/dL [facility] Blood 09/29/2022 1:52 PM EDT 09/29/2022 1:58 PM EDT Narrative Resulting Agency Comment Spec In Lab Daphnie Zamora MD CHEMISTRY ORDERABLES [facility] [place] [address] * (ABNORMAL) PSA (Ultrasensitive), total and free (09/29/2022 1:52 PM EDT) Prostate Specific Antigen (Ultrasensitive) 78.80(H) 0.00 - 4.00 ng/mL [facility] Comment: PLEASE NOTE: The above reference interval is intended for healthy males with an intact prostate. Values within this reference interval may indicate recurrence in men who have undergone radical prostatectomy. This result was generated using a Nory Nunu immunoassay. ??Results obtained from other methods or manufacturers cannot be used interchangeably with this method. Prostate Specific Antigen, Free 20.7 ng/mL [facility] Comment: This result was generated using a Nory Nunu immunoassay. ??Results obtained from other methods or manufacturers cannot be used interchangeably with this method. PSA % Free Not Calculated % [facility] Comment: The percent free PSA was not calculated for this sample as the total PSA value was not in the range of 4-10 ng/mL. ??The utility of the percent free PSA in the setting of total PSA values below 4 or above 10 ng/mL has not been evaluated. Probability of finding BILLING AUDITOR on needle biopsy by age in years: % fPSA ? 50-59yrs ? 60-69yrs ? >=70yrs <=10 ? 49.2 ? 57.5 ? 64.5 11-18 ?26.9 ? 33.9 ? 40.8 19-25 ?18.3 ? 23.9 ? 29.7 >25 ? 9.1 ? 12.2 ? 15.8 This result was generated using a Nory Nunu immunoassay. ??Results obtained from other methods or manufacturers cannot be used interchangeably with this method. Blood 09/29/2022 1:52 PM EDT 09/29/2022 2:00 PM EDT Narrative Resulting Agency Comment Spec In Lab Daphnie Zamora MD CHEMISTRY ORDERABLES Performing Organization Address [facility] Co de Phone Number [facility] [place] [place] [address] * (ABNORMAL) Phosphorus (09/29/2022 11:46 AM EDT) Phosphorus 6.2(H) 2.5 - 4.5 mg/dL [facility] Blood 09/29/2022 11:4 6 AM EDT 09/29/2022 12:02 PM EDT Narrative Resulting Agency Comment Spec In Lab Daphnie Zamora MD CHEMISTRY ORDERABLES Performing Organization Address [facility] Co de Phone Number [facility] [place] [address] * Magnesium (09/29/2022 11:46 AM EDT) Magnesium 0.85 0.69 - 1.07 mmol/L [facility] Blood 09/29/2022 11:4 6 AM EDT 09/29/2022 12:02 PM EDT Narrative Resulting Agency Comment Spec In Lab Daphnie Zamora MD CHEMISTRY ORDERABLES Performing Organization Address [facility] Co de Phone Number [facility] [place] [address] * (ABNORMAL) Basic Metabolic Panel (non-fasting) (09/29/2022 11:46 AM EDT) Glucose 75 65 - 199 mg/dL [facility] Comment:Diabetes: >=200 mg/d L plus symptoms Blood Urea Nitrogen 80(H) 10 - 20 mg/dL [facility] Creatinine 6.53(H) 0.80 - 1.50 mg/dL [facility] Sodium 129(L) 135 - 145 mmol/L [facility] Potassium 5.8(H) 3.5 - 5.0 mmol/L [facility] Comment: Please note: ??Patients with WBC >100,000 may have falsely elevated Potassium levels. ??For accurate Potassium quantification in these patients send serum separator tube (gold top) for subsequent determinations. ??Contact the Clinical Chemistry Laboratory if there are any questions. Chloride 100 98 - 107 mmol/L [facility] Carbon Dioxide 17(L) 22 - 31 mmol/L [facility] Anion Gap 12 5 - 15 mmol/L [facility] Calcium 8.5 8.5 - 10.5 mg/dL [facility] Est Glomerular Filtration Rate 9(L) >=60 mL/min/1. 73 m?? [facility] Comment: This patient's estimated GFR [...] and symptoms in addition to eGFR. Blood 09/29/2022 11:4 6 AM EDT 09/29/2022 12:02 PM EDT Narrative Resulting Agency Comment Spec In Lab Daphnie Zamora MD CHEMISTRY ORDERABLES [facility] [place] [address] * Uric acid (09/29/2022 11:46 AM EDT) Uric Acid 7.7 3.5 - 8.5 mg/dL [facility] Blood 09/29/2022 11:4 6 AM EDT 09/29/2022 12:02 PM EDT Narrative Resulting Agency Comment Spec In Lab Daphnie Zamora MD CHEMISTRY ORDERABLES Performing Organization Address City/[facility]/ZIP Co de Phone Number [facility] [place] [address] * (ABNORMAL) Lactate Dehydrogenase (09/29/2022 11:46 AM EDT) Lactate Dehydrogenase 286(H) 110 - 220 unit/L [facility] Blood 09/29/2022 11:4 6 AM EDT 09/29/2022 12:02 PM EDT Narrative Resulting Agency Comment Spec In Lab Daphnie Zamora MD CHEMISTRY ORDERABLES Performing Organization Address [facility] Co de Phone Number [facility] [place] [address] * Vitamin D, 25-Hydroxy (09/29/2022 5:54 AM EDT) Vitamin D Total 25 OH 21 21 - 100 ng/mL [facility] Vit D Interp Insufficient [facility] Blood Venous Draw / Unknown 09/29/2022 5:54 AM EDT 09/29/2022 6:08 AM EDT Narrative Resulting Agency Comment Spec In Lab Porter Kingston MD CHEMISTRY ORDERABLES Performing Organization Address City/[facility] Co de Phone Number [facility] [place] [address] * (ABNORMAL) Immunoglobulins, Quantitative (09/29/2022 5:54 AM EDT) Immunoglobulin G 2,913(H) 700 - 1,600 mg/dL [facility] Comment: Pediatric Reference Intervals obtained from the Caliper Reference Interval project. http://www.sickkids.ca/caliperproject/index.html IgA 259 70 - 400 mg/dL [facility] IgM 25(L) 40 - 230 mg/dL [facility] Blood Venous Draw / Unknown 09/29/2022 5:54 AM EDT 09/29/2022 6:08 AM EDT Narrative Resulting Agency Comment Spec In Lab Porter Kingston MD CHEMISTRY ORDERABLES Performing Organization Address City/[facility]/ZIP Co de Phone Number [facility] [place] [address] * Immunofixation Electrophoresis (09/29/2022 5:54 AM EDT) [facility] Immunofixation Interpretation See Note [facility] Comment: No specific abnormality observed. Jose Angel Cao MD [facility] [place] 10/03/2022 See scanned report. Blood Venous Draw / Unknown 09/29/2022 5:54 AM EDT 09/29/2022 6:08 AM EDT Narrative Resulting Agency Comment Spec In Lab Porter Kingston MD CHEMISTRY ORDERABLES Performing Organization Address [facility] Co de Phone Number [facility] [place] [address] * (ABNORMAL) Differential, Automated (09/29/2022 5:54 AM EDT) Neutrophil % 70.2 % [facility] Neutrophil Absolute 5.22 1.70 - 6.10 x10(3)/mc L [facility] Lymph % 13.3 % [facility] Lymphocytes Abs 1.0 0.9 - 3.2 x10(3)/mc L [facility] Monocyte % 12.9 % [facility] Monocyte Abs 1.0(H) 0.3 - 0.9 x10(3)/mc L [facility] Eos % 2.6 % [facility] Eosinophils Abs 0.2 0.0 - 0.4 x10(3)/mc L [facility] Basophil % 0.7 % [facility] Baso Absolute 0.0 0.0 - 0.1 x10(3)/mc L [facility] Immature Gran % 0.30 % [facility] Comment: Immature granulocytes(IG's)percentage and absolute count will include metamyelocytes, myelocytes, and promyelocytes. Blood smears from CBCs yielding IG's will be scanned manually for concordance. If this scan disagrees with the automated IG or if promyelocytes are noted, a manual differential will be performed. Immature Gran Absolute 0.02 0.00 - 0.04 x10(3)/ L [facility] Blood 09/29/2022 5:54 AM EDT 09/29/2022 6:04 AM EDT Narrative Resulting Agency Comment Spec In Lab Porter Kingston MD HEMATOLOGY ORDERABLE S [facility] [place] [address] * (ABNORMAL) Hemogram (09/29/2022 5:54 AM EDT) White Blood Cell 7.4 4.0 - 9.5 x10(3)/[facility] Red Blood Cell 3.24(L) 4.58 - 5.54 x10(6)/[facility] Hemoglobin 9.5(L) 13.7 - 16.5 g/dL [facility] Hematocrit 28.9(L) 40.5 - 48.5 % [facility] Mean Cell Volume 89.2 82.9 - 93.1 fL [facility] Mean Cell Hemoglobin 29.3 27.5 - 32.1 pg [facility] Mean Cell Hemoglobin Concentration 32.9 32.0 - 35.7 g/dL [facility] Platelet 447(H) 145 - 357 x10(3)/[facility] RDW Standard Deviation 50.2(H) 36.0 - 45.0 fL [facility] RDW coefficient of variation 15.2(H) 11.4 - 13.8 % [facility] Mean Platelet Volume 9.1 7.6 - 12.9 fL [facility] NRBC% auto 0.0 % [facility] NRBC Absolute 0.000 0.000 - 0.000 x10(3)/[facility] Blood 09/29/2022 5:54 AM EDT 09/29/2022 6:04 AM EDT Narrative Resulting Agency Comment Spec In Lab Porter Kingston MD HEMATOLOGY ORDERABLE S Performing Organization Address City/[facility]/ZIP Co de Phone Number [facility] [place] [address] * Lyme IgG & IgM Antibody (09/29/2022 5:54 AM EDT) Pathologist [facility] Lyme Antibody Negative Negative [facility] Lyme Ab Comment Negative result does not exclude possibility of infection. [facility] Comment: Please note that as of 07/12/2022 that this testing is performed by the [facility] Laboratory at [facility] This change in testing location is associated with a change in testing methodology. Blood 09/29/2022 5:54 AM EDT 09/29/2022 7:27 AM EDT Narrative Resulting Agency Comment Spec In Lab Daniel Ortiz MD IMMUNOLOG Y ORDERABLES Performing Organization Address [facility]/[place] [address] * Acute Tick Borne Infection Panel (09/29/2022 5:54 AM EDT) [facility] Anaplasma phagocytophilum PCR Not Detected Not Detected [facility] Comment: INTERPRETATION: A positive result indicates DNA was detected from Anaplasma phagocytophilum. A negative result indicates the absence of any detectable DNA from Anaplasma phagocytophilum. METHODS: This test was performed using multiplex real-time PCR to interrogate DNA isolated from whole blood for the groEL gene found in Anaplasma phagocytophilum. The sensitivity of the assay is approximately 10 genome equivalents per PCR reaction. LIMITATIONS AND DISCLAIMERS: Although unlikely, rare variants (known or unknown), have the potential to interfere with the performance of this test, producing false negative or false positive results. Additionally, it is possible that this test may provide positive results for species closely related to the ones tested for in this assay. When results are not consistent with other clinical observations or test results, additional testing should be considered. This test detects DNA sequences and cannot discriminate between live and organisms. This test was developed and its performance characteristics determined by the [facility] at [facility] It has not been cleared or approved by the FDA. The laboratory is regulated under CLIA as qualified to perform high-complexity testing. This test is used for clinical purposes. It should not be regarded as investigational or for research. Ehrlichia chaffeensis PCR Not Detected Not Detected [facility] Comment: INTERPRETATION: A positive result indicates DNA was detected from Ehrlichia chaffeensis. A negative result indicates the absence of any detectable DNA from Ehrlichia chaffeensis. METHODS: This test was performed using multiplex real-time PCR to interrogate DNA isolated from whole blood for the 16S rRNA gene found in Ehrlichia chaffeensis. The sensitivity of the assay is approximately 10 genome equivalents per PCR reaction. LIMITATIONS AND DISCLAIMERS: Although unlikely, rare variants (known or unknown), have the potential to interfere with the performance of this test, producing false negative or false positive results. Additionally, it is possible that this test may provide positive results for species closely related to the ones tested for in this assay. When results are not consistent with other clinical observations or test results, additional testing should be considered. This test detects DNA sequences and cannot discriminate between live and organisms. This test was developed and its performance characteristics determined by the [facility] at [facility] It has not been cleared or approved by the FDA. The laboratory is regulated under CLIA as qualified to perform high-complexity testing. This test is used for clinical purposes. It should not be regarded as investigational or for research. Babesia microti PCR Not Detected Not Detected [facility] Comment: INTERPRETATION: A positive result indicates DNA was detected from Babesia microti. A negative result indicates the absence of any detectable DNA from Babesia microti. METHODS: This test was performed using multiplex real-time PCR to interrogate DNA isolated from whole blood for the 18S rRNA gene found in Babesia microti. The sensitivity of the assay is approximately 10 genome equivalents per PCR reaction. LIMITATIONS AND DISCLAIMERS: Although unlikely, rare variants (known or unknown), have the potential to interfere with the performance of this test, producing false negative or false positive results. Additionally, it is possible that this test may provide positive results for species closely related to the ones tested for in this assay. When results are not consistent with other clinical observations or test results, additional testing should be considered. This test detects DNA sequences and cannot discriminate between live and organisms. This test was developed and its performance characteristics determined by the [employer] [facility] at [facility]. It has not been cleared or approved by the FDA. The laboratory is regulated under CLIA as qualified to perform high-complexity testing. This test is used for clinical purposes. It should not be regarded as investigational or for research. Borrelia miyamotoi PCR Not Detected Not Detected [facility] Comment: INTERPRETATION: A positive result indicates DNA was detected from Borrelia miyamotoi. A negative result indicates the absence of any detectable DNA from Borrelia miyamotoi. METHODS: This test was performed using multiplex real-time PCR to interrogate DNA isolated from whole blood for the flaB gene found in Borrelia miyamotoi. The sensitivity of the assay is approximately 10 genome equivalents per PCR reaction. LIMITATIONS AND DISCLAIMERS: Although unlikely, rare variants (known or unknown), have the potential to interfere with the performance of this test, producing false negative or false positive results. Additionally, it is possible that this test may provide positive results for species closely related to the ones tested for in this assay. When results are not consistent with other clinical observations or test results, additional testing should be considered. This test detects DNA sequences and cannot discriminate between live and organisms. This test was developed and its performance characteristics determined by the [employer] [facility] at [facility]. It has not been cleared or approved by the FDA. The laboratory is regulated under CLIA as qualified to perform high-complexity testing. This test is used for clinical purposes. It should not be regarded as investigational or for research. Blood 09/29/2022 5:54 AM EDT 09/29/2022 7:14 AM EDT Narrative Resulting Agency Comment Spec In Lab Daniel Ortiz MD MOLECULAR ORDERABLES [facility] [place] [address] * (ABNORMAL) Uric acid (09/29/2022 5:54 AM EDT) Uric Acid 8.8(H) 3.5 - 8.5 mg/dL [facility] Blood 09/29/2022 5:54 AM EDT 09/29/2022 6:04 AM EDT Narrative Resulting Agency Comment Spec In Lab Daniel Ortiz MD CHEMISTRY ORDERABLES Performing Organization Address [facility] Co de Phone Number [facility] [place] [address] * (ABNORMAL) Lactate Dehydrogenase (09/29/2022 5:54 AM EDT) Lactate Dehydrogenase 279(H) 110 - 220 unit/L [facility] Blood 09/29/2022 5:54 AM EDT 09/29/2022 6:04 AM EDT Narrative Resulting Agency Comment Spec In Lab Daniel Ortiz MD CHEMISTRY ORDERABLES Performing Organization Address [facility] Co de Phone Number [facility] [place] [address] * (ABNORMAL) Phosphorus (09/29/2022 5:54 AM EDT) Phosphorus 6.2(H) 2.5 - 4.5 mg/dL [facility] Blood 09/29/2022 5:54 AM EDT 09/29/2022 6:04 AM EDT Narrative Resulting Agency Comment Spec In Lab Daphnie Zamora MD CHEMISTRY ORDERABLES Performing Organization Address City/[facility] Co de Phone Number [facility] [place] [address] * Magnesium (09/29/2022 5:54 AM EDT) Magnesium 0.83 0.69 - 1.07 mmol/L [facility] Blood 09/29/2022 5:54 AM EDT 09/29/2022 6:04 AM EDT Narrative Resulting Agency Comment Spec In Lab Daphnie Zamora MD CHEMISTRY ORDERABLES Performing Organization Address City/[facility] Co de Phone Number [facility] [place] [address] * (ABNORMAL) Basic Metabolic Panel (non-fasting) (09/29/2022 5:54 AM EDT) Glucose 85 65 - 199 mg/dL [facility] Comment:Diabetes: >=200 mg/d L plus symptoms Blood Urea Nitrogen 76(H) 10 - 20 mg/dL [facility] Creatinine 6.07(H) 0.80 - 1.50 mg/dL [facility] Sodium 131(L) 135 - 145 mmol/L [facility] Potassium 5.0 3.5 - 5.0 mmol/L [facility] Comment: Please note: ??Patients with WBC >100,000 may have falsely elevated Potassium levels. ??For accurate Potassium quantification in these patients send serum separator tube (gold top) for subsequent determinations. ??Contact the Clinical Chemistry Laboratory if there are any questions. Chloride 99 98 - 107 mmol/L [facility] Carbon Dioxide 16(L) 22 - 31 mmol/L [facility] Anion Gap 16(H) 5 - 15 mmol/L [facility] Calcium 8.5 8.5 - 10.5 mg/dL [facility] Est Glomerular Filtration Rate 9(L) >=60 mL/min/1. 73 m?? [facility] Comment: This patient's estimated GFR [...] and symptoms in addition to eGFR. Blood 09/29/2022 5:54 AM EDT 09/29/2022 6:04 AM EDT Narrative Resulting Agency Comment Spec In Lab Daphnie Zamora MD CHEMISTRY ORDERABLES Performing Organization Address City/[facility]/ZIP Co de Phone Number [facility] [place] [address] * (ABNORMAL) Beta 2 Microglobulin, serum (09/29/2022 5:54 AM EDT) Beta 2 Microglobulin 11.3(H) <=3.0 mg/L [facility] Blood 09/29/2022 5:54 AM EDT 09/29/2022 6:04 AM EDT Narrative Resulting Agency Comment Spec In Lab Daniel Ortiz MD CHEMISTRY ORDERABLES Performing Organization Address City/[facility] Co de Phone Number [facility] [place] [address] * (ABNORMAL) Free Light Chains, Serum (09/29/2022 5:54 AM EDT) [place] Free Light Chain 16.76(H) 0.72 - 2.75 mg/dL [facility] Lambda Free Light Chain 16.41(H) 0.57 - 2.15 mg/dL [facility] [place]/Lambda FLC Ratio 1.0213 0.4000 - 2.5800 [facility] Blood 09/29/2022 5:54 AM EDT 09/29/2022 6:04 AM EDT Narrative Resulting Agency Comment Spec In Lab Daniel Ortiz MD CHEMISTRY ORDERABLES Performing Organization Address City/[facility]/ZIP Co de Phone Number [facility] [place] [address] * (ABNORMAL) Hepatic Function Panel (09/29/2022 5:54 AM EDT) Protein, Total 7.9 6.1 - 8.0 g/dL [facility] Albumin 3.0(L) 3.2 - 5.2 g/dL [facility] Aspartate Aminotransferase 21 0 - 39 unit/L [facility] Alanine Aminotransferase 12 0 - 55 unit/L [facility] Alkaline Phosphatase 58 40 - 130 unit/L [facility] Bilirubin, Total 0.4 0.2 - 1.3 mg/dL [facility] Bilirubin, Direct 0.2 0.0 - 0.3 mg/dL [facility] Blood 09/29/2022 5:54 AM EDT 09/29/2022 6:04 AM EDT Narrative Resulting Agency Comment Spec In Lab Daniel Ortiz MD CHEMISTRY ORDERABLES Performing Organization Address City/[facility]/ZIP Co de Phone Number [facility] [place] [address] * (ABNORMAL) Protein Electrophoresis, serum (09/29/2022 5:54 AM EDT) Total Prot Electrophoresis 7.4 6.1 - 8.0 g/dL [facility] Albumin Electrophoresis 2.95(L) 3.20 - 5.20 g/dL [facility] Alpha 1 Globulin 0.27 0.10 - 0.30 g/dL [facility] Alpha 2 Globulin 1.12(H) 0.40 - 0.90 g/dL [facility] Beta Globulin 0.71 0.50 - 1.00 g/dL [facility] Gamma Globulin 2.35(H) 0.50 - 1.30 g/dL [facility] M1 Band Comments Below None Detected [facility] SPEP Comments See Note [facility] Comment: Serum protein electrophoresis (PEP) shows a band that is a possible paraprotein. Immunofixation (RASHAD) and quantitative immunoglobulin (JOYCELYN) testing will be performed on this sample to verify that it is a monoclonal immunoglobulin. Blood 09/29/2022 5:54 AM EDT 09/29/2022 6:04 AM EDT Narrative Resulting Agency Comment Spec In Lab Daniel Ortiz MD CHEMISTRY ORDERABLES Performing Organization Address [facility]/ZIP Co de Phone Number [facility] [place] [address] * CT Chest Abdomen Pelvis wo Contrast (09/29/2022 5:00 AM EDT) Anatomical Region Laterality Modality Abdomen, Pelvis Computed Tomogra phy Impressions 09/29/2022 5:43 AM EDT 1. ??Extensive adenopathy within the chest, abdomen, and pelvis as detailed above. These findings are highly suspicious for lymphoma. 2. ??Bilateral hydronephrosis, likely secondary to retroperitoneal adenopathy. 3. ??Indeterminate left septated cystic renal lesion with chunky mural calcifications as detailed above. Nonemergent outpatient renal protocol MRI or ultrasound is recommended for further evaluation. 4. ??Bilateral lung opacities differential considerations include edema, infection, or inflammation. 5. ??Small bilateral pleural collections. I have personally reviewed the image(s) and the resident's interpretation and agree with the findings, Jhony Bond MD at 09/29/2022 5:43 AM Thank you for letting us participate in the care of this patient. ??If you are a health care provider and have any questions regarding this report, please contact the number below. ??For patients who have questions please contact the health primary care pediatrician that requested your imaging first. ? Narrative 09/29/2022 5:43 AM EDT EXAMINATION: CT CHEST ABDOMEN PELVIS WO CONTRAST CLINICAL HISTORY: Hematologic malignancy, staging TECHNIQUE: Helical CT of the chest, abdomen and pelvis was performed without intravenous contrast. Oral contrast was administered. COMPARISON: Chest radiograph 2022 FINDINGS: The absence of intravenous contrast and the presence of significant respiratory motion artifact limits the evaluation of solid viscera and vasculature. Chest: Lungs and large airways: Central groundglass opacities are present in the bilateral perihilar regions. Pleura: Small bilateral pleural effusions. Heart/vasculature: Normal size normal. No pericardial effusion. Coronary artery calcifications. Lymph nodes: Mildly enlarged lymph nodes are present throughout the mediastinum and subcarinal region. Left supraclavicular adenopathy Mediastinum and zabrina: Normal. Abdomen/pelvis: Liver: Normal size and attenuation without lesions. Bile ducts: Nondilated. Gallbladder: No calcified gallstones. Normal caliber wall. Pancreas: Normal attenuation without ductal dilatation. Spleen: Normal. Adrenals: Normal. Kidneys: Moderate bilateral perinephric fat stranding and edematous appearance of the renal parenchyma. Bilateral hydroureteronephrosis. Simple cysts are present in the bilateral kidneys. An additional large multi cysts fluid attenuating cyst with few mural chunky calcifications is present in the medial portion of the upper pole the left kidney. Urinary Bladder: Normal. Vasculature: No abdominal aortic aneurysm. Lymph Nodes: Extensive conglomerate retroperitoneal adenopathy is present from the level of the celiac artery to the aortoiliac bifurcation. Additional lymphadenopathy extends along the iliac vasculature, right greater than left. Bowel: Contrast is present the level of the sigmoid colon. Nondilated, no wall thickening. Normal terminal ileum and appendix. Peritoneum and retroperitoneum: No free fluid or loculated fluid collection. No pneumoperitoneum. Abdominal wall: Large volume of fat stranding within the subcutaneous soft tissues surrounding the penis (series 3 image 238) which extends beyond the [id number]. Diffuse body wall is are patent. Small bilateral fat-containing hernias. The left hernia sac contains a small volume of fluid. Reproductive organs: Prostatomegaly.. Adjacent penile fat stranding as noted above. Osseous structures: No suspicious lesions. Procedure Note Jhony Bond MD - 09/29/2022 EXAMINATION: CT CHEST ABDOMEN PELVIS WO CONTRAST CLINICAL HISTORY: Hematologic malignancy, staging TECHNIQUE: Helical CT of the chest, abdomen and pelvis was performedwithout intravenous contrast. Oral contrast was administered. COMPARISON: Chest radiograph 2022 FINDINGS: The absence of intravenous contrast and the presence of significantrespiratory motion artifact limits the evaluation of solid viscera and vasculature. Chest: Lungs and large airways: Central groundglass opacities are present inthe bilateral perihilar regions. Pleura: Small bilateral pleural effusions. Heart/vasculature: Normal size normal. No pericardial effusion. Coronaryartery calcifications. Lymph nodes: Mildly enlarged lymph nodes are present throughout themediastinum and subcarinal region. Left supraclavicular adenopathy Mediastinum and zabrina: Normal. Abdomen/pelvis: Liver: Normal size and attenuation without lesions. Bile ducts: Nondilated. Gallbladder: No calcified gallstones. Normal caliber wall. Pancreas: Normal attenuation without ductal dilatation. Spleen: Normal. Adrenals: Normal. Kidneys: Moderate bilateral perinephric fat stranding and edematousappearance of the renal parenchyma. Bilateral hydroureteronephrosis. Simple cystsare present in the bilateral kidneys. An additional large multi cysts fluid attenuating cyst with few mural chunky calcifications is present in themedial portion of the upper pole the left kidney. Urinary Bladder: Normal. Vasculature: No abdominal aortic aneurysm. Lymph Nodes: Extensive conglomerate retroperitoneal adenopathy is presentfrom the level of the celiac artery to the aortoiliac bifurcation. Additional lymphadenopathy extends along the iliac vasculature, right greater thanleft. Bowel: Contrast is present the level of the sigmoid colon. Nondilated, nowall thickening. Normal terminal ileum and appendix. Peritoneum and retroperitoneum: No free fluid or loculated fluidcollection. No pneumoperitoneum. Abdominal wall: Large volume of fat stranding within the subcutaneoussoft tissues surrounding the penis (series 3 image 238) which extends beyondthe [id number]. Diffuse body wall is are patent. Small bilateralfat-containing hernias. The left hernia sac contains a small volume of fluid. Reproductive organs: Prostatomegaly.. Adjacent penile fat stranding asnoted above. Osseous structures: No suspicious lesions. IMPRESSION 1. Extensive adenopathy within the chest, abdomen, and pelvis asdetailed above. These findings are highly suspicious for lymphoma. 2. Bilateral hydronephrosis, likely secondary to retroperitonealadenopathy. 3. Indeterminate left septated cystic renal lesion with chunky mural calcifications as detailed above. Nonemergent outpatient renal protocolMRI or ultrasound is recommended for further evaluation. 4. Bilateral lung opacities differential considerations include edema, infection, or inflammation. 5. Small bilateral pleural collections. I have personally reviewed the image(s) and the resident's interpretationand agree with the findings, Jhony Bond MD at 09/29/2022 5:43 AM Thank you for letting us participate in the care of this patient. If youare a health care provider and have any questions regarding this report,please contact the number below. For patients who have questions please contactthe health primary care pediatrician that requested your imaging first. Daniel Ortiz MD IMG CT OR DERABLES * U Albumin/Cre Ratio (09/29/2022 3:37 AM EDT) Albumin / Creatinin Ratio, Urine 22 0 - 29 mcg/mg Cr [facility] Comment: Reference Ranges: <30 mcg/mg: Normal [...] 2, 357? 362 Albumin, Urine 16.6 mg/L [facility] Creatinine, Urine 77 mg/dL [facility] Urine Urine / Unknown 09/29/2022 3 :37 AM EDT 09/29/2022 4:26 PM EDT Narrative Resulting Agency Comment Spec In Lab Reinaldo Barron MD URINE ORDERABLES [facility] [place] [address] * Osmolality, urine, random (09/29/2022 3:37 AM EDT) Osmolality, Urine 278 50 - 1,200 mOsm/kg [facility] Urine Urine / Unknown 09/29/2022 3 :37 AM EDT 09/29/2022 4:24 AM EDT Narrative Resulting Agency Comment Spec In Lab Daphnie Zamora MD URINE ORDERABLES Performing Organization Address [facility] Co de Phone Number [facility] [place] [address] * Creatinine, urine, random (09/29/2022 3:37 AM EDT) Creatinine, Urine 77 mg/dL [facility] Urine Urine / Unknown 09/29/2022 3 :37 AM EDT 09/29/2022 4:24 AM EDT Narrative Resulting Agency Comment Spec In Lab Daphnie Zamora MD URINE ORDERABLES Performing Organization Address [facility] Co de Phone Number [facility] [place] [address] * Electrolytes, urine, random (09/29/2022 3:37 AM EDT) Sodium, Urine 37 mmol/L [facility] Potassium, Urine 21 mmol/L [facility] Chloride, Urine <20 mmol/L [facility] Urine 09/29/2022 3:37 AM EDT 09/29/2022 4:01 AM EDT Narrative Resulting Agency Comment Spec In Lab Daniel Ortiz MD URINE ORD ERABLES Performing Organization Address [facility] Co de Phone Number [facility] [place] [address] * Protein Electrophoresis, urine, random (09/29/2022 3:37 AM EDT) Protein, Urine 7 0 - 12 mg/dL [facility] U Albumin 41 % total [facility] Globulin, Urine 59 % total [facility] M1 Band, Urine None Detected [facility] UPEP Comments See Note [facility] Comment: There is no evidence of clonal free light chains in this patient's urine sample. Urine 09/29/2022 3:37 AM EDT 09/29/2022 4:01 AM EDT Narrative Resulting Agency Comment Spec In Lab Daniel Ortiz MD URINE ORD ERABLES Performing Organization Address City/[facility]/ZIP Co de Phone Number [facility] [place] [place] [address] * EKG 12 Lead (09/29/2022 3:21 AM EDT) Ventricular rate 85 BPM MUSE SYSTEM Atrial Rate 85 BPM MUSE SYSTEM P-R Interval 124 ms MUSE SYSTEM QRS Duration 98 ms MUSE SYSTEM Q-T Interval 388 ms MUSE SYSTEM QTC Calculated (Bezet) 461 ms MUSE SYSTEM Calculated P [place] 48 degrees MUSE SYSTEM Calculated R [place] 56 degrees MUSE SYSTEM Calculated T [place] -144 degrees MUSE SYSTEM INTERPRETATION Normal sinus rhythm ST & T wave abnormality, consider lateral ischemia Prolonged QT Abnormal ECG No previous ECGs available Confirmed by fellow Hector Sanders ([id number]) on 10/01/2022 6:26:43 PM Confirmed by MD STEARNS ARMIN ([id number]) on 10/02/2022 11:20:59 PM MUSE SYSTEM 09/29/2022 3:21 AM EDT 10/02/2022 11:20 PM EDT Daniel Ortiz MD ECG ORDER CONCHITA Performing Organization Address [facility] Co de Phone Number MUSE SYSTEM * SCAN DOC: IMPLANTABLE DEVICES (09/29/2022 12:00 AM EDT) Narrative 09/29/2022 12:00 AM EDT Ordered by an unspecified provider. Scanning Provider MEDIA MGR SCAN EXT O RDR/RSLT * XR Chest One View (2022 10:01 PM EDT) Anatomical Region Laterality Modality Chest N/A Digital Radiogra phy Impressions 2022 10:09 PM EDT Small bilateral dependent pleural effusions. Thank you for letting us participate in the care of this patient. ??If you are a health care provider and have any questions regarding this report, please contact the number below. ??For patients who have questions please contact the health primary care pediatrician that requested your imaging first. ? Narrative 2022 10:09 PM EDT EXAMINATION: XR CHEST ONE VIEW CLINICAL HISTORY: bilateral pleural effusion documented in outside hospital charting TECHNIQUE: 1 view of the chest COMPARISON: None FINDINGS: Small dependent bilateral pleural effusions. No pneumothorax. No airspace consolidation. Cardiac, mediastinal and hilar contours are within normal limits. Incompletely visualized anterior cervical fusion hardware. No subphrenic free air. No displaced rib fracture. Procedure Note Ariana Preston MD - 2022 EXAMINATION: XR CHEST ONE VIEW CLINICAL HISTORY: bilateral pleural effusion documented in outsidehospital charting TECHNIQUE: 1 view of the chest COMPARISON: None FINDINGS: Small dependent bilateral pleural effusions. No pneumothorax. Noairspace consolidation. Cardiac, mediastinal and hilar contours are within normallimits. Incompletely visualized anterior cervical fusion hardware. No subphrenicfree air. No displaced rib fracture. IMPRESSION Small bilateral dependent pleural effusions. Thank you for letting us participate in the care of this patient. If youare a health care provider and have any questions regarding this report,please contact the number below. For patients who have questions please contactthe health primary care pediatrician that requested your imaging first. Rodney Walker MD IMG DX ORDERABLES * POCT Glucose (2022 7:17 PM EDT) [facility] Signature Glucose, POC 95 65 - 199 mg/dL [facility] Comment: Supplemental ranges: <140 mg/dL before meals <180 mg/dL all other times of the day Blood 2022 7:17 PM EDT 2022 7:17 PM EDT Rodney Walker MD POINT OF CARE TEST ORDERABLES Performing Organization Address [facility] Co de Phone Number [facility] [place] [address] * Urinalysis with reflex Culture (2022 6:36 PM EDT) Glucose, Urine Dipstick Negative Negative mg/dL [facility] Protein, Urine Dipstick Negative Negative mg/dL [facility] Bilirubin, Urine Dipstick Negative Negative mg/dL [facility] Comment: Clinical correlation required for positive Urine Bilirubin results as false positive may occur with some drugs and drug related products. If a false positive is suspected a serum total bilirubin should be considered if clinically indicated. Urobilinogen, Urine Dipstick Normal Normal mg/dL [facility] pH, Urn (dipstick) 5.5 5.0 - 8.0 [facility] Blood, Urine Dipstick Negative Negative mg/dL [facility] Ketone, Urine Dipstick Negative Negative mg/dL [facility] Nitrite, Urine Dipstick Negative Negative [facility] Leukocytes, Urine Dipstick Negative Negative mcL [facility] Appearance, Urine Dipstick Clear Clear [facility] Specific [place] Urine Automated 1.012 1.005 - 1.030 [facility] Color, Urine Dipstick Yellow Yellow [facility] Reflex to Culture No [facility] Clean Catch Urine 2022 6:36 PM EDT 2022 7:03 PM EDT Narrative Resulting Agency Comment Spec In Lab Cammy Owen DO URINE ORDER CONCHITA Performing Organization Address [facility]/ZIP Co de Phone Number [facility] [place] [address] * (ABNORMAL) Uric acid (2022 5:10 PM EDT) Uric Acid 11.3(H) 3.5 - 8.5 mg/dL [facility] Blood Venous Draw / Unknown 2022 5:10 PM EDT 2022 5:41 PM EDT Narrative Resulting Agency Comment Spec In Lab Daniel Ortiz MD CHEMISTRY ORDERABLES Performing Organization Address City/[facility] Co de Phone Number [facility] [place] [address] * (ABNORMAL) Phosphorus (2022 5:10 PM EDT) Phosphorus 6.0(H) 2.5 - 4.5 mg/dL [facility] Blood Venous Draw / Unknown 2022 5:10 PM EDT 2022 5:41 PM EDT Narrative Resulting Agency Comment Spec In Lab Daniel Ortiz MD CHEMISTRY ORDERABLES Performing Organization Address City/[facility] Co de Phone Number [facility] [place] [address] * Blue Tube HOLD (2022 5:10 PM EDT) Blue Hold Sample in lab. [facility] Blood Venous Draw / Unknown 2022 5:10 PM EDT 2022 5:30 PM EDT [place] MOLINA HEMATOLOGY ORDERABLE S Performing Organization Address City/[facility] Co de Phone Number [facility] [address] * Gold Tube HOLD (2022 5:10 PM EDT) Gold Hold Sample in lab. [facility] Blood Venous Draw / Unknown 2022 5:10 PM EDT 2022 5:29 PM EDT Austin MOLINA CHEMISTRY ORDERABLES Performing Organization Address City/[facility]/ZIP Co de Phone Number [facility] [place] [address] * (ABNORMAL) Differential, Automated (2022 5:10 PM EDT) Pathologist [facility] Neutrophil % 73.9 % [facility] Neutrophil Absolute 6.40(H) 1.70 - 6.10 x10(3)/mc L [facility] Lymph % 10.7 % [facility] Lymphocytes Abs 0.9 0.9 - 3.2 x10(3)/ L [facility] Monocyte % 12.8 % [facility] Monocyte Abs 1.1(H) 0.3 - 0.9 x10(3)/ L [facility] Eos % 2.0 % [facility] Eosinophils Abs 0.2 0.0 - 0.4 x10(3)/[facility] Basophil % 0.5 % [facility] Baso Absolute 0.0 0.0 - 0.1 x10(3)/[facility] Immature Gran % 0.10 % [facility] Comment: Immature granulocytes(IG's)percentage and absolute count will include metamyelocytes, myelocytes, and promyelocytes. Blood smears from CBCs yielding IG's will be scanned manually for concordance. If this scan disagrees with the automated IG or if promyelocytes are noted, a manual differential will be performed. Immature Gran Absolute 0.01 0.00 - 0.04 x10(3)/[facility] Blood 2022 5:10 PM EDT 2022 5:29 PM EDT Narrative Resulting Agency Comment Spec In Lab [place] MOLINA HEMATOLOGY ORDERABLE S [facility] [place] [address] * (ABNORMAL) Hemogram (2022 5:10 PM EDT) Pathologist [facility] White Blood Cell 8.7 4.0 - 9.5 x10(3)/ L [facility] Red Blood Cell 3.35(L) 4.58 - 5.54 x10(6)/mc L [facility] Hemoglobin 9.6(L) 13.7 - 16.5 g/dL [facility] Hematocrit 29.2(L) 40.5 - 48.5 % [facility] Mean Cell Volume 87.2 82.9 - 93.1 fL [facility] Mean Cell Hemoglobin 28.7 27.5 - 32.1 pg [facility] Mean Cell Hemoglobin Concentration 32.9 32.0 - 35.7 g/dL [facility] Platelet 507(H) 145 - 357 x10(3)/mc L [facility] RDW Standard Deviation 48.4(H) 36.0 - 45.0 fL [facility] RDW coefficient of variation 15.1(H) 11.4 - 13.8 % [facility] Mean Platelet Volume 9.1 7.6 - 12.9 fL [facility] NRBC% auto 0.0 % [facility] NRBC Absolute 0.000 0.000 - 0.000 x10(3)/mc L [facility] Blood 2022 5:10 PM EDT 2022 5:29 PM EDT Narrative Resulting Agency Comment Spec In Lab [place] MOLINA HEMATOLOGY ORDERABLE S Performing Organization Address City/State/[facility] Co de Phone Number [facility] [place] [address] * (ABNORMAL) Basic Metabolic Panel (non-fasting) (2022 5:10 PM EDT) Glucose 102 65 - 199 mg/dL [facility] Comment:Diabetes: >=200 mg/d L plus symptoms Blood Urea Nitrogen 74(H) 10 - 20 mg/dL [facility] Creatinine 5.80(H) 0.80 - 1.50 mg/dL [facility] Sodium 130(L) 135 - 145 mmol/L [facility] Potassium 5.2(H) 3.5 - 5.0 mmol/L [facility] Comment: Please note: ??Patients with WBC >100,000 may have falsely elevated Potassium levels. ??For accurate Potassium quantification in these patients send serum separator tube (gold top) for subsequent determinations. ??Contact the Clinical Chemistry Laboratory if there are any questions. Chloride 101 98 - 107 mmol/L [facility] Carbon Dioxide 16(L) 22 - 31 mmol/L [facility] Anion Gap 13 5 - 15 mmol/L [facility] Calcium 9.0 8.5 - 10.5 mg/dL [facility] Est Glomerular Filtration Rate 10(L) >=60 mL/min/1. 73 m?? [facility] Comment: This patient's estimated GFR [...] and symptoms in addition to eGFR. Blood 2022 5:10 PM EDT 2022 5:29 PM EDT Narrative Resulting Agency Comment Spec In Lab Cammy Owen DO CHEMISTRY O RDERABLES [facility] [place] [address] * Film Library- Storage Only CT Abdomen & Pelvis (2022 12:00 AM EDT) Narrative Dicom, Auditing User - 09/29/2022 1:47 PM EDT This exam is auto-finalizing. It's purpose is for storage only. Daphnie Zamora MD IMG FILM LIBRARY ORD ERABLES documented in this encounter Visit Diagnoses Diagnosis WALTER (acute kidney injury)- Primary Acute kidney failure, unspecified Lymphadenopathy Enlargement of lymph nodes WALTER (acute kidney injury) Acute kidney failure, unspecified Pleural effusion, bilateral Unspecified pleural effusion Bacteremia Right leg swelling documented in this encounter Admitting Diagnoses Diagnosis WALTER (acute kidney injury) Acute kidney failure, unspecified documented in this encounter Administered Medications Inactive Administered Medications - up to 3 most recent administrations Medication Order MAR Action Action Date Dose Rate Site acetaminophen (Tylenol) tablet 650 mg 650 mg, Oral, EVERY 6 HOURS PRN, Starting on Mon09/29/22 at 0739, Until Mon10/03/22 at 1805, Pain, Maximum dose of acetaminophen is 4,000 mg from all sources in 24 hours. When ordered for pain, acetaminophen should be given even when other ordered pain medications are indicated. , Routine Given 10/03/2022 10:30 AM EDT 650 mg Given 10/02/2022 8:49 PM EDT 650 mg allopurinoL (Zyloprim) tablet 150 mg 150 mg, Oral, ONCE, 1 dose, On Mon09/29/22 at 1245, Routine Given 09/29/2022 2:17 PM EDT 150 mg allopurinoL (Zyloprim) tablet 200 mg 200 mg, Oral, DAILY, First dose on Mon09/30/22 at 0900, Until Discontinued, Routine Given 10/03/2022 8:24 AM EDT 200 mg Given 10/02/2022 9:19 AM EDT 200 mg Given 10/01/2022 9:19 AM EDT 200 mg allopurinoL (Zyloprim) tablet 50 mg 50 mg, Oral, EVERY OTHER DAY, First dose on Mon09/29/22 at 1045, Until Discontinued, Routine Given 09/29/2022 11:21 AM EDT 50 mg cholecalciferol (Vitamin D3) tablet 1,000 Units 1,000 Units, Oral, DAILY, First dose on Mon09/30/22 at 0900, Until Discontinued, 40 units is equivalent to 1 mcg of cholecalciferol., Routine Given 10/03/2022 8:24 AM EDT 1,000 Uni ts Given 10/02/2022 9:18 AM EDT 1,000 Units Given 10/01/2022 9:19 AM EDT 1,000 Units dextrose 10% infusion 250 mL, at 1,000 mL/hr, Intravenous, EVERY 30 MIN PRN, Starting on Mon09/30/22 at 2124, Until Mon10/03/22 at 1805, For BG 50-70 mg/dL: Oral treatment preferred: If able to drink, give 120 mL Juice or Regular (not diet) soda OR If NPO, give 15 gram glucose 40% oral gel massaged into buccal mucosa OR if unconscious or uncooperative, give 25 gram (250 mL) Dextrose 10% IV over 15 minutes per protocol OR, if no IV access, 1 mg Glucagon IM. For BG less than 50 mg/dL: Oral treatment preferred: If able to drink, give 240 mL Juice or Regular (not diet) soda OR If NPO, give 30 gram glucose 40% oral gel massaged in buccal mucosa OR if unconscious or uncooperative, give 25 gram (250 mL) Dextrose 10% IV over 15 minutes per protocol OR, if no IV access, 1 mg Glucagon IM. Recheck BG in 30 minutes. May repeat juice/soda, gel, dextrose or glucagon once per episode. For persistent hypoglycemia, consider longer-acting treatment for the duration of the active insulin. enoxaparin (Lovenox) (30 mg/0.3 mL) subcutaneous injection 30 mg 30 mg, Subcutaneous, NIGHTLY, First dose on Emely 09/29/22 at 0030, Until Discontinued, Routine Given 09/29/2022 12:54 AM EDT 30 mg fentaNYL (pf) (50 mcg/mL) multi-dose injection 25-50 mcg 25-50 mcg, Intravenous, EVERY 3 MIN PRN, Starting on Mon09/30/22 at 0903, Until Mon09/30/22 at 1140, Pain, per unit protocol, For use in Interventional Radiology (IR) only for procedural sedation with direct provider supervision and verbal order. - Start dose: 50 mcg (reduce dose to 25 mcg if history of sedation sensitivity). - Titration dose: 25-50 mcg IV, (based on patient response) every 3 minutes PRN to maintain procedural pain less than 2 per Pain Scale. Maximum dose: 50 mcg/dose, 250 mcg/hour, Angio/IR (Intra-Procedure), Routine Given 09/30/2022 10:33 AM EDT 50 mcg furosemide (Lasix) (10 mg/mL) injection 60 mg 60 mg, Intravenous, ONCE, 1 dose, On Mon09/30/22 at 2100 Given 09/30/2022 8:22 PM EDT 60 mg glucagon (Glucagen) (1 mg/mL) injection solution 1 mg 1 mg, Intramuscular, EVERY 30 MIN PRN, Starting on Mon09/30/22 at 2124, Until Mon10/03/22 at 1805, Low blood sugar, For BG 50-70 mg/dL: Oral treatment preferred: If able to drink, give 120 mL Juice or Regular (not diet) soda OR If NPO, give 15 gram glucose 40% oral gel massaged into buccal mucosa OR if unconscious or uncooperative, give 25 gram (250 mL) Dextrose 10% IV over 15 minutes per protocol OR, if no IV access, 1 mg Glucagon IM. For BG less than 50 mg/dL: Oral treatment preferred: If able to drink, give 240 mL Juice or Regular (not diet) soda OR If NPO, give 30 gram glucose 40% oral gel massaged in buccal mucosa OR if unconscious or uncooperative, give 25 gram (250 mL) Dextrose 10% IV over 15 minutes per protocol OR, if no IV access, 1 mg Glucagon IM. Recheck BG in 30 minutes. May repeat juice/soda, gel, dextrose or glucagon once per episode. For persistent hypoglycemia, consider longer-acting treatment for the duration of the active insulin., Routine glucose (Glutose) 40% oral geL 15-30 g of glucose, Buccal, EVERY 30 MIN PRN, Starting on Mon09/30/22 at 2124, Until Mon10/03/22 at 1805, Low blood sugar, For BG 50-70 mg/dL: Oral treatment preferred: If able to drink, give 120 mL Juice or Regular (not diet) soda OR If NPO, give 15 gram glucose 40% oral gel massaged into buccal mucosa OR if unconscious or uncooperative, give 25 gram (250 mL) Dextrose 10% IV over 15 minutes per protocol OR, if no IV access, 1 mg Glucagon IM. For BG less than 50 mg/dL: Oral treatment preferred: If able to drink, give 240 mL Juice or Regular (not diet) soda OR If NPO, give 30 gram glucose 40% oral gel massaged in buccal mucosa OR if unconscious or uncooperative, give 25 gram (250 mL) Dextrose 10% IV over 15 minutes per protocol OR, if no IV access, 1 mg Glucagon IM. Recheck BG in 30 minutes. May repeat juice/soda, gel, dextrose or glucagon once per episode. For persistent hypoglycemia, consider longer-acting treatment for the duration of the active insulin. 1 tube of Glutose-15 contains 15 grams of glucose (net weight of tube = 37.5 grams.), Routine heparin (porcine) (5,000 units/1 mL) subcutaneous injection 5,000 Units 5,000 Units, Subcutaneous, EVERY 8 HOURS SCHEDULED, First dose (after last modification) on Mon09/29/22 at 1400, Until Discontinued, Routine Given 10/03/2022 5:05 AM EDT 5,000 Units Given 10/02/2022 8:49 PM EDT 5,000 Units Given 10/02/2022 2:51 PM EDT 5,000 Units HYDROmorphone (Dilaudid) tablet 1 mg 1 mg, Oral, EVERY 4 HOURS PRN, Starting on Mon09/29/22 at 0739, Until Mon10/03/22 at 1805, Pain, for mild pain (1-3), Do not exceed a total of 6 mg in 4 hours., Routine HYDROmorphone (Dilaudid) tablet 2 mg 2 mg, Oral, EVERY 4 HOURS PRN, Starting on Mon09/29/22 at 0739, Until Mon10/03/22 at 1805, Pain, for moderate pain (4-6), Do not exceed a total of 6 mg in 4 hours., Routine Given 10/02/2022 8:50 PM EDT 2 mg HYDROmorphone (Dilaudid) tablet 4 mg 4 mg, Oral, EVERY 4 HOURS PRN, Starting on Mon09/29/22 at 0739, Until Mon10/03/22 at 1805, Pain, for severe pain (7-10), Do not exceed a total of 6 mg in 4 hours., Routine insulin lispro (HumaLOG;Admelog) (100 unit/mL) subcutaneous injection vial 1-4 Units 1-4 Units, Subcutaneous, 3 TIMES DAILY BEFORE MEALS, First dose (after last modification) on Mon09/30/22 at 2230, Until Discontinued, CORRECTION BOLUS [1-4 Units] Sensitive Sliding Scale (BG in mg/dL): Correction factor 40 (1 unit of insulin is expected to drop the glucose 40 mg/dL) BG 160 - 200 Give 1 unit BG 201 - 240 Give 2 units BG 241 - 280 Give 3 units BG greater than 280, give 4 units and recheck BG in 2 hours. - If recheck BG is LESS than 280, give no insulin and resume schedule - If recheck BG is GREATER than 280, give 4 units and repeat BG in 2 hours (no more than 3 times) & call for new insulin orders. DO NOT hold if NPO, unless specifically directed to do so by written order. Per Blood Glucose Monitoring Policy, re-check a BG of > 240 mg/dL in 2 hours., Routine Given 10/03/2022 11:35 AM EDT 1 Units Given 10/03/2022 6:44 AM EDT 1 Units Given 10/02/2022 11:36 AM EDT 1 Units iohexoL (Omnipaque) (350 mg/mL) solution 0-50 mL 0-50 mL, Oral, ONCE PRN, 1 dose, Starting on Emely 09/29/22 at 0020, Until 10/03/22 at 1805, Per Protocol, Warning Vesicant/Irritant Medication , Routine iohexoL (Omnipaque) radiology oral prep (50 mL of oral contrast) 240 mL, Oral, ONCE, 1 dose, On Emely 09/29/22 at 0115, 8 ounce cup = 240 mL of contrast 3 hours before scan as tolerated. The patient should not eat food or drink any other liquids during the entire period in which they are drinking the contrast. Mix 1 bottle (50 mL) of Omnipaque 350 with 1 liter (1,000 mL) non-carbonated beverage (preferably water). Close cover and shake vigorously and then refrigerate, if desired. Dispose of any excess preparation in a sink. Properly dispose of container., Routine Given 09/29/2022 12:44 AM EDT 240 mLs iohexoL (Omnipaque) radiology oral prep (50 mL of oral contrast) 240 mL, Oral, ONCE, 1 dose, On Emely 09/29/22 at 0145, 8 ounce cup = 240 mL of contrast 2 hours before scan as tolerated. The patient should not eat food or drink any other liquids during the entire period in which they are drinking the contrast. Mix 1 bottle (50 mL) of Omnipaque 350 with 1 liter (1,000 mL) non-carbonated beverage (preferably water). Close cover and shake vigorously and then refrigerate, if desired. Dispose of any excess preparation in a sink. Properly dispose of container., Routine Given 09/29/2022 1:45 AM EDT 240 mLs iohexoL (Omnipaque) radiology oral prep (50 mL of oral contrast) 240 mL, Oral, ONCE, 1 dose, On Emely 09/29/22 at 0245, 8 ounce cup = 240 mL of contrast 1 hours before scan as tolerated. The patient should not eat food or drink any other liquids during the entire period in which they are drinking the contrast. Mix 1 bottle (50 mL) of Omnipaque 350 with 1 liter (1,000 mL) non-carbonated beverage (preferably water). Close cover and shake vigorously and then refrigerate, if desired. Dispose of any excess preparation in a sink. Properly dispose of container., Routine Given 09/29/2022 2:45 AM EDT 240 mLs iohexoL (Omnipaque) radiology oral prep (50 mL of oral contrast) 240 mL, Oral, ONCE, 1 dose, On Emely 09/29/22 at 0315, 8 ounce cup = 240 mL of contrast 20 minutes before scan as tolerated. The patient should not eat food or drink any other liquids during the entire period in which they are drinking the contrast. Mix 1 bottle (50 mL) of Omnipaque 350 with 1 liter (1,000 mL) non-carbonated beverage (preferably water). Close cover and shake vigorously and then refrigerate, if desired. Dispose of any excess preparation in a sink. Properly dispose of container., Routine Given 09/29/2022 3:41 AM EDT 240 mLs lactated ringers infusion 50 mL/hr, Intravenous, CONTINUOUS, Starting on Emely 09/29/22 at 0045, Until Emely 09/29/22 at 0516 New Bag 09/29/2022 12:47 AM EDT 50 mL/hr 50 mL/hr levothyroxine (Synthroid) tablet 150 mcg 150 mcg, Oral, DAILY, First dose (after last modification) on Emely 09/29/22 at 0600, Until Discontinued, Routine Given 10/03/2022 5:05 AM EDT 150 mcg Given 10/02/2022 6:50 AM EDT 150 mcg Given 10/01/2022 6:21 AM EDT 150 mcg lidocaine (Xylocaine) 1% (10 mg/mL) injection 10 mg 10 mg, Subcutaneous, ONCE, 1 dose, On Mon09/30/22 at 1000, For use in Interventional Radiology (IR) only for procedure with direct provider supervision and verbal order., Angio/IR (Intra-Procedure), Routine Given 09/30/2022 10:43 AM EDT 10 mg melatonin tablet 3 mg 3 mg, Oral, NIGHTLY PRN, Starting on Mon09/29/22 at 0740, Until Mon10/03/22 at 1805, sleep, Routine morphine (4 mg/mL) injection 4 mg 4 mg, Intravenous, ONCE, 1 dose, On Mon09/28/22 at 2110, STAT Given 2022 9:32 PM EDT 4 mg ondansetron (pf) (Zofran) (2 mg/mL) injection 4 mg 4 mg, Intravenous, EVERY 8 HOURS PRN, Starting on Mon09/29/22 at 0325, Until Mon10/03/22 at 1805, Nausea Given 09/29/2022 3:41 AM EDT 4 mg ondansetron (Zofran) tablet 4 mg 4 mg, Oral, EVERY 8 HOURS PRN, Starting on Mon09/29/22 at 0325, Until Mon10/03/22 at 1805, Nausea, Routine perflutren lipid microspheres (Definity) injection 0.5 mL 0.5 mL, Intravenous, ONCE PRN, 1 dose, Starting on Mon09/30/22 at 1705, Until Mon09/30/22 at 1530, Other, for enhancement of sub-optimal echo images, Echo Lab (Intra-Procedure), Routine Given 09/30/2022 3:30 PM EDT 1.5 mLs polyethylene glycoL (Miralax) packet 17 g 17 g, Oral, DAILY, First dose (after last modification) on Mon09/29/22 at 1100, Until Discontinued, Please hold for loose stools , Routine Given 10/02/2022 10:37 PM EDT 17 g pravastatin (Pravachol) tablet 10 mg 10 mg, Oral, EVERY EVENING, First dose on Mon09/29/22 at 1700, Until Discontinued, Routine Given 10/02/2022 4:39 PM EDT 10 mg Given 10/01/2022 4:12 PM EDT 10 mg Given 09/30/2022 4:08 PM EDT 10 mg rasburicase (Elitek) 3 mg in sodium chloride 0.9% 52 mL 3 mg, Intravenous, ONCE, 1 dose, On Mon09/29/22 at 0100, Administer over 30 Minutes, Flush line with 15 mL pre and post infusion. Incomptable with other drugs and solutions. New Bag 09/29/2022 2:30 AM EDT 3 mg 104 mL/hr senna-docusate (Pericolace) 8.6-50 mg per tablet 2 tablet 2 tablet, Oral, 2 TIMES DAILY, First dose on Mon09/29/22 at 0030, Until Discontinued, Hold for loose stool. , Routine Given 10/03/2022 9:00 AM EDT 2 tablets Given 10/02/2022 8:50 PM EDT 2 tablets Given 09/29/2022 9:09 AM EDT 2 tablets sevelamer carbonate (Renvela) tablet 800 mg 800 mg, Oral, 3 TIMES DAILY WITH MEALS, First dose on Mon09/30/22 at 0845, Until Discontinued, DO NOT CRUSH OR OPEN, Routine Given 10/03/2022 11:35 AM EDT 800 mg Given 10/03/2022 8:24 AM EDT 800 mg Given 10/02/2022 4:39 PM EDT 800 mg sodium bicarbonate tablet 1,300 mg 1,300 mg, Oral, 3 TIMES DAILY, First dose on Mon09/29/22 at 0900, Until Discontinued, Routine Given 10/03/2022 2:52 PM EDT 1,300 mg Given 10/03/2022 8:25 AM EDT 1,300 mg Given 10/02/2022 8:50 PM EDT 1,300 mg sodium chloride 0.9 % (flush) (BD PosiFlush Normal Saline 0.9) flush 5 mL 5 mL, Intravenous, 2 TIMES DAILY, First dose on Mon09/29/22 at 0030, Until Discontinued, Routine Given 10/03/2022 10:04 AM EDT 5 mLs Given 10/02/2022 8:50 PM EDT 5 mLs Given 10/02/2022 9:24 AM EDT 5 mLs sodium chloride 0.9% 1,000 mL IV bolus at 1,000 mL/hr, Intravenous, ONCE, 1 dose, On Mon09/30/22 at 1630 New Bag 09/30/2022 4:15 PM EDT 1000 mL/hr sodium chloride 0.9% infusion 100 mL/hr, Intravenous, CONTINUOUS, Starting on Mon09/29/22 at 0615, Until Mon09/30/22 at 2002 Rate/Dose Change 09/30/2022 6:33 PM EDT 100 mL/hr 100 mL/hr Rate/Dose Change 09/30/2022 5:36 PM EDT 150 mL/hr 150 mL/ hr New Bag 09/30/2022 1:26 PM EDT 100 mL/hr 100 mL/hr sodium zirconium cyclosilicate (Lokelma) oral powder packet 10 g 10 g, Oral, DAILY, First dose on Mon09/29/22 at 1400, Until Discontinued, Empty entire contents of packet into cup containing at least 3 tablespoons (45 mL) or more of water. Stir well and have patient drink immediately. If powder remains, add water, stir and drink. Repeat until no powder remains. Avoid giving other oral medications 2 hours before or after sodium zirconium cyclosilicate. , Routine Given 10/02/2022 9:16 AM EDT 10 g Given 10/01/2022 9:19 AM EDT 10 g Given 09/30/2022 11:57 AM EDT 10 g documented in this encounter Active and Recently Administered Medications Times are shown in EDT. Scheduled Medication Order 10/01/2022 10/02/2022 10/03/2022 allopurinoL (Zyloprim) tablet 200 mg 200 mg, Oral, DAILY, First dose on Mon09/30/22 at 0900, Until Discontinued, Routine 918 (Given - Provider: Estefany Lawler RN) 918 (Given - Provider: Veronica Meyers RN) 823 (Given - Provider: Brisa Steven, SHIVAM) cholecalciferol (Vitamin D3) tablet 1,000 Units 1,000 Units, Oral, DAILY, First dose on Mon09/30/22 at 0900, Until Discontinued, 40 units is equivalent to 1 mcg of cholecalciferol., Routine 918 (Given - Provider: Estefany Lawler RN) 917 (Given - Provider: Veronica Meyers, SHIVAM) 823 (Given - Provider: Brisa Steven, SHIVAM) heparin (porcine) (5,000 units/1 mL) subcutaneous injection 5,000 Units 5,000 Units, Subcutaneous, EVERY 8 HOURS SCHEDULED, First dose (after last modification) on Mon09/29/22 at 1400, Until Discontinued, Routine 0621 (Given - Provider: Mariaelena Rain RN)1433 (Given - Provider: Estefany Lawler, SHIVAM)2219 (Given - Provider: Carlota Morgan RN) 0649 (Given - Provider: Carlota Morgan RN)1451 (Given - Provider: Brisa Steven, SHIVAM)2049 (Given - Provider: Carlota Morgan RN) 0505 (Given - Provider: Carlota Morgan RN)1400 (Due) insulin lispro (HumaLOG;Admelog) (100 unit/mL) subcutaneous injection vial 1-4 Units(Linked Group 1) 1-4 Units, Subcutaneous, 3 TIMES DAILY BEFORE MEALS, First dose (after last modification) on Mon09/30/22 at 2230, Until Discontinued, CORRECTION BOLUS [1-4 Units] Sensitive Sliding Scale (BG in mg/dL): Correction factor 40 (1 unit of insulin is expected to drop the glucose 40 mg/dL) BG 160 - 200 Give 1 unit BG 201 - 240 Give 2 units BG 241 - 280 Give 3 units BG greater than 280, give 4 units and recheck BG in 2 hours. - If recheck BG is LESS than 280, give no insulin and resume schedule - If recheck BG is GREATER than 280, give 4 units and repeat BG in 2 hours (no more than 3 times) & call for new insulin orders. DO NOT hold if NPO, unless specifically directed to do so by written order. Per Blood Glucose Monitoring Policy, re-check a BG of > 240 mg/dL in 2 hours., Routine 0730 (Not Given - Provider: Mariaelena Rain RN - Reason: Order parameters not met)1130 (Given - Provider: Estefany Lawler, SHIVAM)1611 (Given - Provider: Estefany Lawler, SHIVAM) 0703 (Not Given - Provider: Carlota Morgan RN - Reason: Order parameters not met)1136 (Given - Provider: Brisa Steven, SHIVAM)1645 (Not Given - Provider: Brisa Steven RN - Reason: Order parameters not met - Comment: BG 158) 0644 (Given - Provider: Carlota Morgan RN)1135 (Given - Provider: Brisa Steven, SHIVAM - Comment: Blood sugar 178) levothyroxine (Synthroid) tablet 150 mcg 150 mcg, Oral, DAILY, First dose (after last modification) on Emely 09/29/22 at 0600, Until Discontinued, Routine 0621 (Given - Provider: Mariaelena Rain RN) 0650 (Given - Provider: Carlota Morgan RN) 0505 (Given - Provider: Carlota Morgan RN) polyethylene glycoL (Miralax) packet 17 g 17 g, Oral, DAILY, First dose (after last modification) on Mon09/29/22 at 1100, Until Discontinued, Please hold for loose stools , Routine 0919 (Not Given - Provider: Estefany Lawler RN - Reason: Patient/family refused) 0911 (Not Given - Provider: Veronica Meyers RN - Reason: Patient/family refused)2237 (Given - Provider: Carlota Morgan RN - Comment: Per MD request) 0900 (Not Given - Provider: Brisa Steven RN - Reason: Patient/family refused) pravastatin (Pravachol) tablet 10 mg 10 mg, Oral, EVERY EVENING, First dose on Mon09/29/22 at 1700, Until Discontinued, Routine 1612 (Given - Provider: Estefany Lawler RN) 1639 (Given - Provider: Brisa Steven, SHIVAM) senna-docusate (Pericolace) 8.6-50 mg per tablet 2 tablet 2 tablet, Oral, 2 TIMES DAILY, First dose on Mon09/29/22 at 0030, Until Discontinued, Hold for loose stool. , Routine 0919 (Not Given - Provider: Estefany Lawler RN - Reason: Patient/family refused)2100 (Not Given - Provider: Eryn Patiño RN - Reason: Patient/family refused) 0925 (Not Given - Provider: Veronica Meyers RN - Reason: Patient/family refused)2050 (Given - Provider: Carlota Morgan RN) 0900 (Given - Provider: Brisa Steven, SHIVAM) sevelamer carbonate (Renvela) tablet 800 mg 800 mg, Oral, 3 TIMES DAILY WITH MEALS, First dose on Mon09/30/22 at 0845, Until Discontinued, DO NOT CRUSH OR OPEN, Routine 0918 (Given - Provider: Estefany Lawler, SHIVAM)1128 (Given - Provider: Estefany Lawler, SHIVAM)1612 (Given - Provider: Estefany Lawler, SHIVAM) 0919 (Given - Provider: Veronica Meyers, SHIVAM)1134 (Given - Provider: Brisa Steven, SHIVAM)1639 (Given - Provider: Brisa Steven, SHIVAM) 0824 (Given - Provider: Brisa Steven, SHIVAM)1135 (Given - Provider: Brisa Steven, SHIVAM) sodium bicarbonate tablet 1,300 mg 1,300 mg, Oral, 3 TIMES DAILY, First dose on Mon09/29/22 at 0900, Until Discontinued, Routine 0919 (Given - Provider: Estefany Lawler RN)1433 (Given - Provider: Estefany Lawler RN)2026 (Given - Provider: Eryn Patiño RN) 0917 (Given - Provider: Veronica Meyers RN)1452 (Given - Provider: Brisa Steven, SHIVAM)2050 (Given - Provider: Carlota Morgan RN) 0825 (Given - Provider: Brisa Steven, SHIVAM)1452 (Given - Provider: Peter Herrera RN) sodium chloride 0.9 % (flush) (BD PosiFlush Normal Saline 0.9) flush 5 mL 5 mL, Intravenous, 2 TIMES DAILY, First dose on Mon09/29/22 at 0030, Until Discontinued, Routine 0920 (Given - Provider: Estefany Lawler, SHIVAM)2100 (Given - Provider: Eryn Patiño, SHIVAM) 0924 (Given - Provider: Veronica Meyers, SHIVAM)205 (Given - Provider: Carlota Morgan RN) 1004 (Given - Provider: Brisa Steven, SHIVAM) sodium zirconium cyclosilicate (Lokelma) oral powder packet 10 g (CANCELED) 10 g, Oral, DAILY, First dose on Mon09/29/22 at 1400, Until Discontinued, Empty entire contents of packet into cup containing at least 3 tablespoons (45 mL) or more of water. Stir well and have patient drink immediately. If powder remains, add water, stir and drink. Repeat until no powder remains. Avoid giving other oral medications 2 hours before or after sodium zirconium cyclosilicate. , Routine 918 (Given - Provider: Estefany Lawler, RN) 09 (Given - Provider: Veronica Meyers, SHIVAM) PRN Medication Order 10/01/2022 10/02/2022 10/03/2022 acetaminophen (Tylenol) tablet 650 mg 650 mg, Oral, EVERY 6 HOURS PRN, Starting on Emely 09/29/22 at 0739, Until Mon10/03/22 at 1805, Pain, Maximum dose of acetaminophen is 4,000 mg from all sources in 24 hours. When ordered for pain, acetaminophen should be given even when other ordered pain medications are indicated. , Routine 2048 (Given - Provider: Carlota Morgan RN) 1029 (Given - Provider: Brisa Steven RN) dextrose 10% infusion(Linked Group 2) 250 mL, at 1,000 mL/hr, Intravenous, EVERY 30 MIN PRN, Starting on Mon09/30/22 at 2124, Until Mon10/03/22 at 1805, For BG 50-70 mg/dL: Oral treatment preferred: If able to drink, give 120 mL Juice or Regular (not diet) soda OR If NPO, give 15 gram glucose 40% oral gel massaged into buccal mucosa OR if unconscious or uncooperative, give 25 gram (250 mL) Dextrose 10% IV over 15 minutes per protocol OR, if no IV access, 1 mg Glucagon IM. For BG less than 50 mg/dL: Oral treatment preferred: If able to drink, give 240 mL Juice or Regular (not diet) soda OR If NPO, give 30 gram glucose 40% oral gel massaged in buccal mucosa OR if unconscious or uncooperative, give 25 gram (250 mL) Dextrose 10% IV over 15 minutes per protocol OR, if no IV access, 1 mg Glucagon IM. Recheck BG in 30 minutes. May repeat juice/soda, gel, dextrose or glucagon once per episode. For persistent hypoglycemia, consider longer-acting treatment for the duration of the active insulin. glucagon (Glucagen) (1 mg/mL) injection solution 1 mg(Linked Group 2) 1 mg, Intramuscular, EVERY 30 MIN PRN, Starting on Mon09/30/22 at 2124, Until Mon10/03/22 at 1805, Low blood sugar, For BG 50-70 mg/dL: Oral treatment preferred: If able to drink, give 120 mL Juice or Regular (not diet) soda OR If NPO, give 15 gram glucose 40% oral gel massaged into buccal mucosa OR if unconscious or uncooperative, give 25 gram (250 mL) Dextrose 10% IV over 15 minutes per protocol OR, if no IV access, 1 mg Glucagon IM. For BG less than 50 mg/dL: Oral treatment preferred: If able to drink, give 240 mL Juice or Regular (not diet) soda OR If NPO, give 30 gram glucose 40% oral gel massaged in buccal mucosa OR if unconscious or uncooperative, give 25 gram (250 mL) Dextrose 10% IV over 15 minutes per protocol OR, if no IV access, 1 mg Glucagon IM. Recheck BG in 30 minutes. May repeat juice/soda, gel, dextrose or glucagon once per episode. For persistent hypoglycemia, consider longer-acting treatment for the duration of the active insulin., Routine glucose (Glutose) 40% oral geL(Linked Group 2) 15-30 g of glucose, Buccal, EVERY 30 MIN PRN, Starting on Mon09/30/22 at 2124, Until Mon10/03/22 at 1805, Low blood sugar, For BG 50-70 mg/dL: Oral treatment preferred: If able to drink, give 120 mL Juice or Regular (not diet) soda OR If NPO, give 15 gram glucose 40% oral gel massaged into buccal mucosa OR if unconscious or uncooperative, give 25 gram (250 mL) Dextrose 10% IV over 15 minutes per protocol OR, if no IV access, 1 mg Glucagon IM. For BG less than 50 mg/dL: Oral treatment preferred: If able to drink, give 240 mL Juice or Regular (not diet) soda OR If NPO, give 30 gram glucose 40% oral gel massaged in buccal mucosa OR if unconscious or uncooperative, give 25 gram (250 mL) Dextrose 10% IV over 15 minutes per protocol OR, if no IV access, 1 mg Glucagon IM. Recheck BG in 30 minutes. May repeat juice/soda, gel, dextrose or glucagon once per episode. For persistent hypoglycemia, consider longer-acting treatment for the duration of the active insulin. 1 tube of Glutose-15 contains 15 grams of glucose (net weight of tube = 37.5 grams.), Routine HYDROmorphone (Dilaudid) tablet 1 mg(Linked Group 3) 1 mg, Oral, EVERY 4 HOURS PRN, Starting on Mon09/29/22 at 0739, Until Mon10/03/22 at 1805, Pain, for mild pain (1-3), Do not exceed a total of 6 mg in 4 hours., Routine 2049 (See Alternative - Provider: Carlota Morgan RN) HYDROmorphone (Dilaudid) tablet 2 mg(Linked Group 3) 2 mg, Oral, EVERY 4 HOURS PRN, Starting on Mon09/29/22 at 0739, Until Mon10/03/22 at 1805, Pain, for moderate pain (4-6), Do not exceed a total of 6 mg in 4 hours., Routine 2049 (Given - Provider: Carlota Morgan RN) HYDROmorphone (Dilaudid) tablet 4 mg(Linked Group 3) 4 mg, Oral, EVERY 4 HOURS PRN, Starting on Mon09/29/22 at 0739, Until Mon10/03/22 at 1805, Pain, for severe pain (7-10), Do not exceed a total of 6 mg in 4 hours., Routine 2049 (See Alternative - Provider: Carlota Morgan RN) iohexoL (Omnipaque) (350 mg/mL) solution 0-50 mL 0-50 mL, Oral, ONCE PRN, 1 dose, Starting on Mon09/29/22 at 0020, Until Mon10/03/22 at 1805, Per Protocol, Warning Vesicant/Irritant Medication , Routine lidocaine (Xylocaine) 1% (10 mg/mL) injection 3 mg 3 mg (0.3 mL), Subcutaneous, ONCE PRN, 1 dose, Starting on Mon09/28/22 at 2337, Until Mon10/03/22 at 1805, for discomfort with PIV insertion, Routine melatonin tablet 3 mg 3 mg, Oral, NIGHTLY PRN, Starting on Mon09/29/22 at 0740, Until Mon10/03/22 at 1805, sleep, Routine ondansetron (pf) (Zofran) (2 mg/mL) injection 4 mg(Linked Group 4) 4 mg, Intravenous, EVERY 8 HOURS PRN, Starting on Mon09/29/22 at 0325, Until Mon10/03/22 at 1805, Nausea ondansetron (Zofran) tablet 4 mg(Linked Group 4) 4 mg, Oral, EVERY 8 HOURS PRN, Starting on Mon09/29/22 at 0325, Until Mon10/03/22 at 1805, Nausea, Routine sodium chloride 0.9 % (flush) (BD PosiFlush Normal Saline 0.9) flush 5-20 mL 5-20 mL, Intravenous, EVERY 1 MIN PRN, Starting on Mon09/28/22 at 2337, Until Mon10/03/22 at 1805, flush, Flush pertains to all indwelling lines. Flush per protocol found in the job aid using the link provided on this medication record., Routine Linked Groups Order Group 1: POCT Fingerstick Glucose (CANCELED) Routine, 4 TIMES DAILY BEFORE MEALS & AT BEDTIME, First occurrence on Mon09/30/22 at 2200, Until Specified, Consider choosing FOUR TIMES A DAY BEFORE MEALS AND AT BEDTIME as frequency for: Patients who have good hypoglycemia awareness: -Patients who are eating meals during the day and sleeping at night -Patient who are otherwise stable And insulin lispro (HumaLOG;Admelog) (100 unit/mL) subcutaneous injection vial 1-4 UnitsJump to med 1-4 Units, Subcutaneous, 3 TIMES DAILY BEFORE MEALS, First dose (after last modification) on Mon09/30/22 at 2230, Until Discontinued, CORRECTION BOLUS [1-4 Units] Sensitive Sliding Scale (BG in mg/dL): Correction factor 40 (1 unit of insulin is expected to drop the glucose 40 mg/dL) BG 160 - 200 Give 1 unit BG 201 - 240 Give 2 units BG 241 - 280 Give 3 units BG greater than 280, give 4 units and recheck BG in 2 hours. - If recheck BG is LESS than 280, give no insulin and resume schedule - If recheck BG is GREATER than 280, give 4 units and repeat BG in 2 hours (no more than 3 times) & call for new insulin orders. DO NOT hold if NPO, unless specifically directed to do so by written order. Per Blood Glucose Monitoring Policy, re- check a BG of > 240 mg/dL in 2 hours., Routine Group 2: glucose (Glutose) 40% oral geLJump to med 15-30 g of glucose, Buccal, EVERY 30 MIN PRN, Starting on Mon09/30/22 at 2124, Until Mon10/03/22 at 1805, Low blood sugar, For BG 50-70 mg/dL: Oral treatment preferred: If able to drink, give 120 mL Juice or Regular (not diet) soda OR If NPO, give 15 gram glucose 40% oral gel massaged into buccal mucosa OR if unconscious or uncooperative, give 25 gram (250 mL) Dextrose 10% IV over 15 minutes per protocol OR, if no IV access, 1 mg Glucagon IM. For BG less than 50 mg/dL: Oral treatment preferred: If able to drink, give 240 mL Juice or Regular (not diet) soda OR If NPO, give 30 gram glucose 40% oral gel massaged in buccal mucosa OR if unconscious or uncooperative, give 25 gram (250 mL) Dextrose 10% IV over 15 minutes per protocol OR, if no IV access, 1 mg Glucagon IM. Recheck BG in 30 minutes. May repeat juice/soda, gel, dextrose or glucagon once per episode. For persistent hypoglycemia, consider longer-acting treatment for the duration of the active insulin. 1 tube of Glutose-15 contains 15 grams of glucose (net weight of tube = 37.5 grams.), Routine Or dextrose 10% infusionJump to med 250 mL, at 1,000 mL/hr, Intravenous, EVERY 30 MIN PRN, Starting on Mon09/30/22 at 2124, Until Mon10/03/22 at 1805, For BG 50-70 mg/dL: Oral treatment preferred: If able to drink, give 120 mL Juice or Regular (not diet) soda OR If NPO, give 15 gram glucose 40% oral gel massaged into buccal mucosa OR if unconscious or uncooperative, give 25 gram (250 mL) Dextrose 10% IV over 15 minutes per protocol OR, if no IV access, 1 mg Glucagon IM. For BG less than 50 mg/dL: Oral treatment preferred: If able to drink, give 240 mL Juice or Regular (not diet) soda OR If NPO, give 30 gram glucose 40% oral gel massaged in buccal mucosa OR if unconscious or uncooperative, give 25 gram (250 mL) Dextrose 10% IV over 15 minutes per protocol OR, if no IV access, 1 mg Glucagon IM. Recheck BG in 30 minutes. May repeat juice/soda, gel, dextrose or glucagon once per episode. For persistent hypoglycemia, consider longer-acting treatment for the duration of the active insulin. Or glucagon (Glucagen) (1 mg/mL) injection solution 1 mgJump to med 1 mg, Intramuscular, EVERY 30 MIN PRN, Starting on Mon09/30/22 at 2124, Until Mon10/03/22 at 1805, Low blood sugar, For BG 50-70 mg/dL: Oral treatment preferred: If able to drink, give 120 mL Juice or Regular (not diet) soda OR If NPO, give 15 gram glucose 40% oral gel massaged into buccal mucosa OR if unconscious or uncooperative, give 25 gram (250 mL) Dextrose 10% IV over 15 minutes per protocol OR, if no IV access, 1 mg Glucagon IM. For BG less than 50 mg/dL: Oral treatment preferred: If able to drink, give 240 mL Juice or Regular (not diet) soda OR If NPO, give 30 gram glucose 40% oral gel massaged in buccal mucosa OR if unconscious or uncooperative, give 25 gram (250 mL) Dextrose 10% IV over 15 minutes per protocol OR, if no IV access, 1 mg Glucagon IM. Recheck BG in 30 minutes. May repeat juice/soda, gel, dextrose or glucagon once per episode. For persistent hypoglycemia, consider longer-acting treatment for the duration of the active insulin., Routine Group 3: HYDROmorphone (Dilaudid) tablet 1 mgJump to med 1 mg, Oral, EVERY 4 HOURS PRN, Starting on Mon09/29/22 at 0739, Until Mon10/03/22 at 1805, Pain, for mild pain (1-3), Do not exceed a total of 6 mg in 4 hours., Routine Or HYDROmorphone (Dilaudid) tablet 2 mgJump to med 2 mg, Oral, EVERY 4 HOURS PRN, Starting on Mon09/29/22 at 0739, Until Mon10/03/22 at 1805, Pain, for moderate pain (4-6), Do not exceed a total of 6 mg in 4 hours., Routine Or HYDROmorphone (Dilaudid) tablet 4 mgJump to med 4 mg, Oral, EVERY 4 HOURS PRN, Starting on Emely 09/29/22 at 0739, Until Mon10/03/22 at 1805, Pain, for severe pain (7-10), Do not exceed a total of 6 mg in 4 hours., Routine Group 4: ondansetron (Zofran) tablet 4 mgJump to med 4 mg, Oral, EVERY 8 HOURS PRN, Starting on Emely 09/29/22 at 0325, Until Mon10/03/22 at 1805, Nausea, Routine Or ondansetron (pf) (Zofran) (2 mg/mL) injection 4 mgJump to med 4 mg, Intravenous, EVERY 8 HOURS PRN, Starting on Emely 09/29/22 at 0325, Until Mon10/03/22 at 1805, Nausea documented in this encounter 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
--- OUTSIDE RECORDS SUMMARY | 2023-10-16 03:18 | XMS_ITS | Encounter Summary ---
Author Organization [facility] Address [facility] [place] [address] Care Team Providers Care Virtual Recruiter Name Role Phone Nicolasa Valenzuela Primary Care Pro vider Encounter Details Date Type Department Care Team (Late st Contact Info) Description 03/15/2022 11:00 AM EST TH Visit (TeleHealth) [place] [phone] True Juarez MD [facility] [place] [address] Elevated PSA Social History Tobacco Use Types Packs/Day Years [...] Progress Notes * True Juarez MD - 03/15/2022 11:00 AM EST Urologic Outpatient Consult Note HPI: Huber Keys is a 66 y.o. year old male referred for 1) Elevated PSA PSA History: 08/2021 - 35 10/2021 - mpMRI showed 12/2021 - TRUS Bx Negative 12/2021 - 111 03/2022 - 89 We did treat for prostatitis x 30 days empirically OFELIA negative at the time of biopsy Impression: # Elevated PSA, P5 (PZ on mpMRI) but negative fusion biopsy # PSA down a lot but still VERY elevated Plan: # Repeat PSA in 3 months, if not down significantly then I will recommend repeat mpMRI / biopsy documented in this encounter Plan of Treatment Upcoming Encounters Date Type Department Care Team (Late st Contact Info) Description 10/16/2023 2:30 PM EDT Office Visit Hematology/Oncology at [address] [phone] Fiordaliza Downing APRN [facility] [place] [address] 11/10/2023 9:00 AM EDT Appointment [place] [phone] Thomas Curtis MD [facility] H[place] [address] 11/21/2023 11:00 AM EDT Infusion Hematology Oncology at [address] [phone] 12/05/2023 1:30 PM EDT Office Visit Hematology/Oncology at [address] [phone] Thomas Curtis MD [facility] H[place] [address] Fiordaliza Downing APRN [facility] [place] [address] 12/26/2023 9:00 AM EDT Appointment [place] [phone] Thomas Curtis MD [facility] [place] [address] 02/09/2024 8:00 AM EST Appointment Nuclear Medicine at [place] [phone] Thomas Curtis MD [facility] H[place]OLOGY [place] [address] 03/18/2024 3:00 PM EST Office Visit Cardiology at [address] [place] [phone] Sameer Rudolph MD [facility] [place] [address] 03/22/2024 9:00 AM EST Appointment [place] [phone] Thomas Curtis MD [facility] HEMATOLOGY [place] [address] 08/23/2024 Hospital Encounter [place] [phone] True Juarez MD [facility] [place] [address] Scheduled Procedures Name Priority Associated Diagnoses Date/Ti me CYSTO, STENT PLACEMENT (WRVU 2.82) Hydronephrosis with ureteral stricture, not elsewhere classified CYSTO, REMOVAL OF STENT, FOR EIGN BODY OR CALCULUS, SIMPLE (WRVU 2.81) Hydronephrosis with ureteral stricture, not elsewhere classified documented as of this encounter Visit Diagnoses Diagnosis Elevated PSA Elevated prostate specific antigen (PSA) documented in this encounter Care Teams Virtual Recruiter Relationship Specialty Start Date End Date Nicolasa Valenzuela PA [address] [place] [address] PCP - General Family Medicine 12/20/21 documented as of this encounter
--- OUTSIDE RECORDS SUMMARY | 2023-10-16 03:18 | XMS_ITS | Encounter Summary ---
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 Name Role Phone Nicolasa Valenzuela Primary Care Pro vider Reason for Visit * Auth/Cert (Routine) Specialty Diagnoses / Procedures Referred By Toño mayorga Referred To Contact Diagnoses Spinal stenosis, cervical region CERVICAL STENOSIS Procedures PRO ARTHRODESIS, ANT INTERBODY,DECOMPRESSION; CERVICAL BELOW C2 PRO ARTHRD ANT INTERDY CERVCL BELW C2 EA ADDL NTRSPC PRO INSERT BIOMCHN DEV INTERVERTEBRAL DSC SPC W/ARTHRD PRO ALLOGRAFT FOR SPINE SURGERY ONLY MORSELIZED ARTHRODESIS, ANT INTERBODY,DECOMPRESSION; CERVICAL BELOW C2 (WRVU 25) ARTHRODESIS ANT INTERBDY CERVCL BELOW C2 EA ADDL INTRSPACE (WRVU 6.5) INSERTION INTERBODY BIOMECH DEV TO INTERVEBRAL DISC SPACE, EA INTERSPACE (WRVU 4.25) ALLOGRAFT FOR SPINE SURGERY ONLY; MORSELIZED (WRVU *) MODIFIER [address] - Bebe Umanzor MD [address] [place] [address] [facility] Referral ID Status Reason Start Date Expiration Date Visits Re quested Visits Authorized [id number] 1 1 Encounter Details Date Type Department Care Team (Latest Contact Info) Description 03/17/2022 6:17 AM EST - 03/17/2022 3:04 PM EST Hospital Encounter Med Surg Unit at [facility] [address] [place] [phone] Bebe Hatfield MD [address] [facility] [place] [address] Spinal stenosis in cervical region Discharge Disposition: Home Social History Tobacco Use [...] Sign Reading Time Taken Comments Blood Pressure 141/77 03/17/2022 10:30 AM EST Pulse 75 03/17/2022 10:00 AM EST Temperature 36.7 ??C (98.1 ??F) 03/17/2022 10:[address] Respiratory Rate 16 03/17/2022 10:00 AM EST Oxygen Saturation 96% 03/17/2022 10:30 AM EST Inhaled Oxygen Concentration - - Weight 84.4 kg (186 lb) 03/17/2022 6:29 AM EST Height 180.3 cm (5' 11) 03/17/2022 6:29 AM EST Body Mass Index 25.94 03/17/2022 6:29 AM EST documented in this encounter Discharge Instructions * Patient Instructions* Yifan Delgado PA - 03/17/2022 7:20 AM EST Full recovery will depend on your having a strong, positive attitude, setting small goals for improvement and working steadily to accomplish each goal. FOLLOW UP APPOINTMENTS: You will be scheduled for a follow-up appointment four to six weeks after surgery with a Physician???s Bingo Checker at the surgeon???s office. You will have a follow up appointment with the neurosurgeonin three months. If you have sutures that need to be removed, a suture removal appointment will be made for 10-14 days after surgery. If you had hardware, you may need x-rays done at [facility] prior to your follow up appointments. This will be arranged ahead of time by the office. MEDICATIONS: Take your medicine at the time your doctor ordered. Keep a list of your medicines, vitamins, and herbal supplements you take. Keep this list with you at all times. Show it to your caregiver at every visit. Keep the list up-to-date. Ask your caregiver or pharmacist to write an explanation of each medicine you are taking. This should include: why you are taking it, possible side effects, best time of day to take it, what foods totake the medication with or foods to avoid, and when to stop taking it. Only take axgr-[id number] or prescription medicine for pain, discomfort or fever as directed by your caregiver. Consult your doctor or pharmacist with any questions. NEW MEDICATIONS AT DISCHARGE: []None []Given prescriptions in office preoperatively OR: Medication Dose/Route/ Frequency Prescription given? Reason for medication Medscape monograph discussed []Yes []No []Yes []No []Yes []No []Yes []No PAIN: It is normal to have pain after your surgery; especially in the neck and upper back. This does not mean that the procedure was unsuccessful or that your recovery will be delayed. Arm and/or leg aching is also not uncommon. This is primarily caused by inflammation of the previously compressed nerve. The discomfort will gradually decrease as the nerve continues to heal. You may also experience muscle spasms across your back and into your extremities. Medications will be given to control pain and decrease spasm intensity. Moist heat and/or ice and frequent repositioning may also be helpful. DIET: You may adjust your diet back to normal as your appetite returns. Be sure to drink plenty of fluids, particularly water, and eat whole grain cereals, fruits and fruit juices to combat constipation that is sometimes caused by pain medications. If constipation does occur, an over the counter laxative is acceptable. Call your surgeon if you experience persistent nausea and vomiting. ACTIVITY: Increase your activity slowly. Daily walking is the best exercise. Try to increase your distance a little each day. Go at a pace that doesn???t make you too tired or cause too much pain. It is normal to tire easily for the first week or so after you return home. DO NOT lift anything over five pounds. Keep in mind a gallon of milk weighs eight pounds. Do not lift anything that you cannot easily lift with one hand. Sexual relations may be resumed during the recovery period, but positions that strain the neck or cause pain should be avoided. Consult your surgeon in regards to your driving status. There are no set time restrictions. Use common sense and do not attempt to resume driving until you feel completely comfortable to drive in anduninhibited manner. ACTIVITY (continued): It is recommended that you do not drive for the first 1-2 weeks or while taking narcotic pain relievers. Please call the office with questions. You may resume other physical activities including work only after consulting with your treating physician. POST ANESTHESIA/SEDATION: You have received medication for sedation and comfort during your procedure. Because these have notcompletely left your system, please observe the following precautions: Plan to relax for the next several hours DO NOT drive or operate machinery until the day after your procedure, longer as recommended by yoursurgeon Avoid alcohol for the next 24 hours Do not make any important personal or business decisions today BANDAGE/SHOWERING: You may have Dermabond over the incision (typically a purple glue like substance), with inner sutures that do not need to be removed. The Dermabond will gradually fall off. You may have sutures that require removal. If these are used you will be scheduled for a suture removal appointment within 10 to 14 days of the procedure. You may shower after three to five days. Do NOT scrub the incision. Pat the area dry with a towel after showering. Avoid soaking (baths, hot tubs, swimming, etc) until approximately two weeks after your surgery, when your wound is all the way healed. SEEK IMMEDIATE MEDICAL CARE/CALL YOUR SURGEON IF: There is redness, swelling or increasing pain at the wound. You notice purulent (colored, puss-like) drainage coming from the wound. You notice a foul smell coming from the wound or bandage. You experience urinary problems. You experience any NEW weakness or numbness in your arms or legs. SEEK IMMEDIATE MEDICAL CARE/CALL YOUR SURGEON IF (continued): You develop an oral temperature about 101 degrees F. There is a breaking open of the wound. The edges do not stay together after the sutures or tape hasbeen removed. There is persistent bleeding from an incision. You have increasing swelling in the neck. You develop difficulty breathing - Call 911. If you have questions, please call [facility] at [phone], during business hours of Monday through Monday from 8:00 a.m. until 4:00 p.m. In case of emergency during non-business hours, please call the same main number and follow the prompts to page the neurosurgeon industrial relations manager. SMOKING CESSATION INFORMATION: [place] QUITLINE: [place] QUITLINE: [email or web address] If you smoke, stop now! Smoking may impede healing. MAKE SURE YOU: Understand these instructions. Will seek medical care if you are feeling poor, or get worse. Will call the surgeon???s office with any questions or concerns at : [phone] Nursing information only: Original document to medical records Copy given to patient at discharge Belongings/Valuables returned to patient All questions answered IV and hospital equipment removed from patient as appropriate documented in this encounter Medications at Time of Discharge Medication Sig Dispensed Refills Start Date End Date fluorometholone (FML Forte) 0.25 % Drops, Suspension 1 drop Every 12 hours. 10/03/2022 traMADoL (Ultram) 50 mg Tablet TAKE 1 TABLET BY MOUTH EVERY 8 HOURS NEEDED FOR SEVERE ACUTE PAIN 02/01/2022 10/03/2022 tamsulosin (Flomax) 0.4 mg Capsule Take 1 capsule by mouth daily. 90 tablet 3 01/04/2022 10/03/2022 Lantus Solostar U-100 Insulin 100 unit/mL (3 mL) pen 16 Units daily. 09/03/2021 10/03/2022 Synthroid 137 mcg Tablet Take 137 mcg by mouth daily. 08/31/2021 11/10/2022 lisinopriL (Zestril) 10 mg Tablet Take 10 mg by mouth daily. 09/19/2021 10/03/2022 metFORMIN (Glucophage) 500 mg Tablet Take 1,000 mg by mouth 2 times daily (with meals). 09/19/2021 10/03/2022 simvastatin (Zocor) 40 mg Tablet Take 40 mg by mouth nightly. 10/24/2021 10/03/2022 documented as of this encounter Progress Notes * Wang Martinez RN - 03/17/2022 2:56 PM EST Huber Keys discharged per provider order to home via personal vehicle. All IV???s removed. Discharge instructions reviewed with patient and friend. All questions or concerns answered at this time. Patient encouraged to call with any further questions or concerns. Copy of After Visit Summarygiven to patient at time of discharge. All personal belongings returned to patient, including prescription medications. Patient assisted to personal vehicle via staff member and wheelchair. Wang Martinez RN, 03/17/2022 * Wang Martinez RN - 03/17/2022 10:50 AM EST Hubre Keys arrived to Medical Surgical Unit from the PACU s/p Status post cervical spinal fusion [Z98.1]. Patient is alert and oriented x4. See Adult Patient Care Summary for focused assessment upon admission. Dressing is CDI. Patient rates their pain as 4/10 at this time. Patient oriented to room and the units practice of purposeful rounding. Call hamilton within reach and all questions/concerns answered at this time. Will continue to monitor patient as necessary. Wang Martinez RN, 03/17/2022 * Colby Conklin RN - 03/17/2022 10:13 AM EST Our patient was received from the OR, they remained sedated, hemodynamically stable. Once awake andin phase II they remained hemodynamically stable and were found to be neurovascularly intact x 4 during our reassessment. Their PACU stay was unremarkable, IV access was discontinued, with good hemostasis of IV site, gown change and bladder scan prior to being discharged from our unit. Med/drug safety coordinator at the bedside for report, report given and patient moved from our unit to the Med/Surg unit withoutany untoward events - awc. documented in this encounter H&P Notes * Yifan Delgado PA - 03/17/2022 7:20 AM EST Patient Name: Huber Keys Patient Age: 66 y.o. Birthdate: 1955 Admit date: 03/17/2022 Attending Physician: Bebe Hatfield MD The patient's history and physical exam have been reviewed and completed. There has been no interval change from that of the pre-operative history and physical exam done within the last 30 days. documented in this encounter Miscellaneous Notes * Care Management Discharge - Ellen New RN - 03/17/2022 3:04 PM EST Summary: SYDNI LAY note CARE MANAGEMENT FINAL DISCHARGE NOTE Chart reviewed, care reviewed with primary team and at interdisciplinary rounds. Patient is medically ready for discharge to home. Needs for Transition of Care: none Plan for discharge is: home with friend in personal vehicle Agency Referrals & Follow-up Care:none Transportation: Wheelchair van/Ambulance? No Functional status prior to admission: Independent Home Environment: Others in the home: alone. Current Living Arrangements: home/apartment/condo. Accessibility Concerns: . Current Functional Ability: DME used at home: none DME Needed at Discharge: walker given from [facility] Patient is insured through: Primary Insurance: MEDICARE Payor: MEDICARE / Plan: MEDICARE PART A & B / Product Type: *No Product type* / Secondary Insurance: AARP SUPPLEMENT Prescription Coverage: Yes This plan was formulated with input from patient, and team. All are in agreement with plan. I have verbally reviewed Medicare Discharge Rights with patient. Patient verbalizes understanding of right to appeal this discharge if feeling not medically ready. Offered a copy of this letter. Ellen New RN * Initial Assessments - Ellen New RN - 03/17/2022 12:03 PM ESTSummary: SYDNI MENJIVAR note Case Management Initial Assessment Ellen New RN reviewed record and discussed patient with Interdisciplinary Team. CM introduced self and role of Case Management to patient and services accepted. Contact card left for patient and family???s reference. Source of Information: Patient Reason for Hospitalization: alleviate the pain Past medical History: Past Medical History: Diagnosis Date ??? Diabetes ??? High blood pressure ??? Hypothyroid Hospitalized in the last 30 days: no previous admission in last 30 days Current decision making capacity: Self Advance Care Planning: Attempt Cardiopulmonary Resuscitation - Inpatient <no information> -Advanced Directive: No, declines Functional status prior to admission: Independent Current functional status: Independent Home environment: Others in the home: alone. Current Living Arrangements: home/apartment/condo. Accessibility Concerns: . Community Resources being provided currently: none Behavioral Health History: Substance Use/Abuse listed: Social History Tobacco Use [...] risk 20 to 40 points: Addiction likely Primary Care Provider: JESSE Nesbitt [phone] Pharmacy: [place] [address] Health Coverage: Primary Insurance: MEDICARE Secondary Insurance: [facility] SUPPLEMENT Other: Prescription Coverage: Yes House Status: Patient is a : No Anticipated Services at discharge: none DME: none Transportation Anticipated: family or friend will provide Concerns to be Addressed: discharge planning Agency Referrals: Not Applicable Plan: Denies insecurities for food, housing or transport The best phone number to reach you post discharge is [phone]. A member of the Case Management team will continue to monitor progress and collaborate with the interdisciplinary team to create a safe discharge plan. See MCG guidelines for further clinical documentation during patient???s hospital stay. Ellen New RN Office of Care Management * Op Note - Bebe Hatfield MD - 03/17/2022 7:42 AM EST [facility] Operative Note [facility] [address] [place] [address] Patient Name: Huber Keys : [id number] MR#: [id number] Case Date: 03/17/2022 Case Scheduled Time: 729 Surgeon: Surgeon(s) and Role: * Bebe Hatfield MD - Primary Public Health Outreach Worker JESSE Ramirez Preoperative diagnosis: CERVICAL STENOSIS with radiculopathy Postoperative diagnosis: same as pre op Procedure(s) (LRB): ARTHRODESIS, ANT INTERBODY,DECOMPRESSION; CERVICAL BELOW C2 (WRVU 25) (Bilateral) ARTHRODESIS ANT INTERBDY CERVCL BELOW C2 EA ADDL INTRSPACE (WRVU 6.5) (Bilateral) INSERTION INTERBODY BIOMECH DEV TO INTERVEBRAL DISC SPACE, EA INTERSPACE (WRVU 4.25) (Bilateral) ALLOGRAFT FOR SPINE SURGERY ONLY; MORSELIZED (WRVU *) (Bilateral) MODIFIER K2 MEDICAL - [place] (Bilateral) Anterior cervical discectomy and instrumented fusion of C5-6 and C6-7 with Quincy and DBM. Fluoroscopic guidance. Anesthesia: General Findings: A large disc osteophyte especially into the C7 foramen on the right side. Excellent decompression was obtained at both levels and into both C6 and C7 nerve roots. A 7 mm Quincy was tapped into C5-6 and an 8 mm into C6-7 secured with 14 mm setscrews. Fluoroscopic confirmation. No CSF leak. Nerves intact. Complications: None Intake: Intraprocedure Crystalloid Total None Transfusion No data found in the last 1 encounters. Output: Estimated Blood Loss: Urine Output:: (no urine output recorded) Other Output: (no other output recorded) Drains: none Specimens removed during surgery: none Disposition: awakened from anesthesia, extubated and taken to the recovery room in a stable condition, having suffered no apparent untoward event. Condition: doing well without problems (Please see the Surgical Encounter Summary for any Implant and Specimen details pertinent to this patient.) Indications for the Procedure: Patient is a 66-year-old gentleman generally healthy and active witha C 7 as well as a component of C6 radiculopathy worse on the left side with weakness numbness and pain that is not respond to conservative measures. 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 Given failure of conservative measures surgery was offered. Risks of surgery including but not excluding infection, bleeding, failure to improve, adjacent level disease, injury to the tracheal and esophageal structures, carotid artery, recurrent laryngeal nerve among others as well as spinal cord were all discussed in detail prior to surgery and the patient wished to proceed. Description of the Procedure: Patient is taken into the operating room and underwent general endotracheal anesthesia. Patient is lying supine with a gelpad between the shoulder blades and the neck in a neutral and slightly extended position. The anterior cervical region is prepped and draped in the usual sterile fashion. Time out performed. Fluoroscopic guidance is used to to direct the level of the incision. The incision wasmade to the right side of midline in a skin crease centered over the appropriate operative level. The incision is taken down to the platysma muscle and the platysma muscle is incised with the Bovie.Tthe sternomastoid muscle is identified and its medial border is dissected. In the intrafascial plane, medial to the carotid artery and lateral to the tracheoesophageal structures, the anterior cervical spine is encountered. The prevertebral fascia is opened with a peanut dissector. A spinal needle was placed into the C5-6 level and fluoroscopic confirmation obtained. A Kumar retractor system isused to retract the tracheoesophageal structures to the left and protect the carotid on the right. The Rice screws were placed into the vertebral bodies of C5 and C7. The microscope was taken into the field. Attention was first directed to the C6-7 interspace which was his most symptomatic. The disc was removed with pituitary rongeurs and various curettes. The high-speed drill was used to thin d own the posterior disc osteophyte complexes. The posterior longitudinal ligament along with the posterior disc osteophyte complex is removed with Kerrison rongeurs opening up the central canal and into both neural foramina. At this point excellent decompression of the central canal and both neural foramina was obtained. There were especially tight and large osteophytes severely narrowing the C7 foramen on the left side especially. The endplates were prepaired with the high-speed drill. At this is then repeated at the C5-6 interspace decompressing the central canal and both exiting neural foramina. The Quincy is then sized appropriately for each interspace and filled with DBM and to tapped into each interspace under fluoroscopic guidance. Three 14 mm screws are then placed appropriately securing the Quincy in place. Rice screws have been removed. Fluoroscopic confirmation obtained. Floseal had been used for hemostasis of small epidural bleeding veins as well as into the drillholes for the [place]. The Kumar retractor was then removed and the platysma muscles reapproximated with 3-0 Vicryl running suture with inverted 3-0 Vicryl in the subcutaneous tissue with Dermabond to seal the skin. The patient was then awakened from anesthesia and taken in stable condition to the PACU unit having tolerated the procedure well. The surgical instrument technician, JESSE Pollard (), worked under my direction for the duration of the operative session. The seed laboratory assistant adequately prepped the operative site and maintained the best possible exposure of anatomy incident to the procedure. Bebe Hatfield MD 03/17/2022 documented in this encounter Plan of Treatment Upcoming Encounters Date Type Department Care Team (Late st Contact Info) Description 10/16/2023 2:30 PM EDT Office Visit Hematology/Oncology at [address] [phone] Fiordaliza Downing APRN [facility] [place] [address] 11/10/2023 9:00 AM EDT Appointment [place] [address] Thomas Curtis MD [facility] DR HEMATOLOGY [place] [address] 11/21/2023 11:00 AM EDT Infusion Hematology Oncology at [address] [phone] 12/05/2023 1:30 PM EDT Office Visit Hematology/Oncology at [address] [phone] Thomas Curtis MD [facility] HEMATOLOGY [place] [address] Fiordaliza Downing APRN [facility] [place] [address] 12/26/2023 9:00 AM EDT Appointment [place] [phone] Thomas Curtis MD [facility] HEMATOLOGY [place] [address] 02/09/2024 8:00 AM EST Appointment [place] [phone] Thomas Curtis MD [facility] HEMATOLOGY [place] [address] 03/18/2024 3:00 PM EST Office Visit Cardiology at [address] [phone] Sameer Rudolph MD [facility] [place] [address] 03/22/2024 9:00 AM EST Appointment [place] [phone] Thomas Curits MD [facility] DR HEMATOLOGY [place] [address] 08/23/2024 Hospital Encounter Main Operating Room [facility] [place] [phone] True Juarez MD [facility] [place] [address] Scheduled Procedures Name Priority Associated Diagnoses Date/Ti me CYSTO, STENT PLACEMENT (WRVU 2.82) Hydronephrosis with ureteral stricture, not elsewhere classified CYSTO, REMOVAL OF STENT, FOR EIGN BODY OR CALCULUS, SIMPLE (WRVU 2.81) Hydronephrosis with ureteral stricture, not elsewhere classified documented as of this encounter Procedures Procedure Name Priority Date/Time Associated Diagnosis Comments XR FLUORO NO RAD <1HR - OR USE Routine 03/17/2022 9:04 AM EST MODIFIER [place]ICO SPINE - [place] Yes 03/17/2022 7:22 AM EST CERVICAL STENOSIS Allograft For Spine Surgery Only Morselized () Yes 03/17/2022 7:22 AM EST CERVICAL STENOSIS Insert Biomchn Dev Intervertebral Dsc Spc W/Arthrd ([id number]) Yes 03/17/2022 7:22 AM EST CERVICAL STENOSIS Arthrd Ant Interdy Cervcl Belw C2 Ea Addl Ntrspc ([id number]) Yes 03/17/2022 7:22 AM EST CERVICAL STENOSIS Arthrodesis, Ant Interbody,Decompression ; Cervical Below C2 ([id number]) Yes 03/17/2022 7:22 AM EST CERVICAL STENOSIS POCT GLUCOSE Routine 03/17/2022 6:35 AM EST documented in this encounter Results * XR Fluoro No Rad <1Hr - OR Use (03/17/2022 9:04 AM EST) Narrative Dicom, Auditing User - 03/17/2022 9:04 AM EST This exam is auto-finalizing. No interpretation was done. Bebe Hatfield MD IMG FLUORO ORDERA BLES * POCT Glucose (03/17/2022 6:35 AM EST) Glucose, POC 133 65 - 199 mg/dL [facility] Comment: Supplemental ranges: <140 mg/dL before meals <180 mg/dL all other times of the day Blood 03/17/2022 6:35 AM EST 03/17/2022 6:35 AM EST Bebe Hatfield MD POINT OF CARE JANNY T ORDERABLES [facility] [address] [place] [address] documented in this encounter Visit Diagnoses Diagnosis Status post cervical spinal fusion- Primary Arthrodesis status Spinal stenosis in cervical region documented in this encounter Admitting Diagnoses Diagnosis Status post cervical spinal fusion Arthrodesis status documented in this encounter Administered Medications Inactive Administered Medications - up to 3 most recent administrations Medication Order MAR Action Action Date Dose Rate Site acetaminophen (Tylenol) tablet 650 mg 650 mg, Oral, EVERY 4 HOURS PRN, Starting on Emely 03/17/22 at 1011, Until Emely 03/17/22 at 1704, Pain, Fever, Administer for mild pain (1-3) or temperature greater than or equal to 38 degrees celsius. Maximum dose of acetaminophen is 4,000 mg from all sources in 24 hours. When ordered for pain, acetaminophen should be given even when other ordered pain medications are indicated., Routine Given 03/17/2022 11:11 AM EST 650 mg dextrose 50% intravenous solution 12.5-25 g 12.5-25 g, Intravenous, EVERY 30 MIN PRN, Starting on Emely 03/17/22 at 1011, Until Emely 03/17/22 at 1704, Low blood sugar, For BG 50-70 mg/dL: Oral treatment preferred:?? If able to drink, give 120 mL Juice or Regular (not diet) soda OR If NPO, give 15 gram glucose 40% oral gel massaged into buccal mucosa OR if unconscious or uncooperative, give 12.5 gram (25 mL) Dextrose 50% IV OR, if no IV access, 1 mg Glucagon IM. For BG less than 50 mg/dL: Oral treatment preferred:?? If able to drink, give 240 mL Juice or Regular (not diet) soda OR If NPO, give 30 gram glucose 40% oral gel massaged in buccal mucosa OR if unconscious or uncooperative, give 25 gram (50 mL) Dextrose 50% IV OR, if no IV access, 1 mg Glucagon IM. Recheck BG in 30 minutes. May repeat juice, gel, dextrose or glucagon once per episode. To avoid extravasation, push Dextrose 50% SLOWLY (3 mL over 1 minute) in a patent, running IV, preferably a central line. For persistent hypoglycemia, consider longer-acting treatment for the duration of the active insulin., Routine glucagon (Glucagen) (1 mg/mL) injection solution 1 mg 1 mg, Intramuscular, EVERY 30 MIN PRN, Starting on Emely 03/17/22 at 1011, Until Emely 03/17/22 at 1704, Low blood sugar, For BG 50-70 mg/dL: Oral treatment preferred:?? If able to drink, give 120 mL Juice or Regular (not diet) soda OR If NPO, give 15 gram glucose 40% oral gel massaged into buccal mucosa OR if unconscious or uncooperative, give 12.5 gram (25 mL) Dextrose 50% IV OR, if no IV access, 1 mg Glucagon IM. For BG less than 50 mg/dL: Oral treatment preferred:?? If able to drink, give 240 mL Juice or Regular (not diet) soda OR If NPO, give 30 gram glucose 40% oral gel massaged in buccal mucosa OR if unconscious or uncooperative, give 25 gram (50 mL) Dextrose 50% IV OR, if no IV access, 1 mg Glucagon IM. Recheck BG in 30 minutes. May repeat juice, gel, dextrose or glucagon once per episode. To avoid extravasation, push Dextrose 50% SLOWLY (3 mL over 1 minute) in a patent, running IV, preferably a central line. For persistent hypoglycemia, consider longer-acting treatment for the duration of the active insulin., Routine glucose (Glutose) 40% oral geL 15-30 g of glucose, Buccal, EVERY 30 MIN PRN, Starting on Emely 03/17/22 at 1011, Until Emely 03/17/22 at 1704, Low blood sugar, For BG 50-70 mg/dL: Oral treatment preferred:?? If able to drink, give 120 mL Juice or Regular (not diet) soda OR If NPO, give 15 gram glucose 40% oral gel massaged into buccal mucosa OR if unconscious or uncooperative, give 12.5 gram (25 mL) Dextrose 50% IV OR, if no IV access, 1 mg Glucagon IM. For BG less than 50 mg/dL: Oral treatment preferred:?? If able to drink, give 240 mL Juice or Regular (not diet) soda OR If NPO, give 30 gram glucose 40% oral gel massaged in buccal mucosa OR if unconscious or uncooperative, give 25 gram (50 mL) Dextrose 50% IV OR, if no IV access, 1 mg Glucagon IM. Recheck BG in 30 minutes. May repeat juice, gel, dextrose or glucagon once per episode. To avoid extravasation, push Dextrose 50% SLOWLY (3 mL over 1 minute) in a patent, running IV, preferably a central line. For persistent hypoglycemia, consider longer-acting treatment for the duration of the active insulin. 1 tube of Glutose-15 contains 15 grams of glucose (net weight of tube = 37.5 grams.), Routine HYDROmorphone (Dilaudid) tablet 2 mg 2 mg, Oral, ONCE PRN, 1 dose, Starting on Emely 03/17/22 at 0934, Until Emely 03/17/22 at 0958, Pain, PACU Recovery, Routine Given 03/17/2022 9:58 AM EST 2 mg insulin lispro (HumaLOG;Admelog) (100 unit/mL) subcutaneous injection vial 1-6 Units 1-6 Units, Subcutaneous, 3 TIMES DAILY BEFORE MEALS, First dose on Emely 03/17/22 at 1130, Until Discontinued, CORRECTION BOLUS [1-6 Units] Moderate Sliding Scale (BG in mg/dL): Correction factor 20 (1 unit of insulin is expected to drop the glucose 20 mg/dL) BG 140 - 160 Give 1 unit BG 161 - 180 Give 2 units BG 181 - 200 Give 3 units BG 201 - 220 Give 4 units BG 221 - 240 Give 5 units BG greater than 240, give 6 units and recheck BG in 2 hours. - If recheck BG is LESS than 240, give no insulin and resume schedule. - If recheck BG is GREATER than 240, give 6 units and repeat BG in 2 hours (no more than 3 times) & call for new insulin orders. DO NOT hold if NPO, unless specifically directed to do so by written order. Per Blood Glucose Monitoring Policy, re-check a BG of > 240 mg/dL in 2 hours., Routine lactated ringers infusion 1,000 mL, at 50 mL/hr, Intravenous, CONTINUOUS, Starting on Emely 03/17/22 at 0715, Until Emely 03/17/22 at 1007, Day of Surgery (Day of Procedure) New Bag 03/17/2022 9:00 AM EST New Bag 03/17/2022 7:19 AM EST New Bag 03/17/2022 6:59 AM EST 1,000 mLs 50 mL/hr ondansetron (pf) (Zofran) (2 mg/mL) injection 4-8 mg 4-8 mg, Intravenous, EVERY 8 HOURS PRN, Starting on Emely 03/17/22 at 1011, Until Emely 03/17/22 at 1704, Nausea, Vomiting, 4 mg, Oral, EVERY 8 HOURS PRN, Nausea, Vomiting If multiple antiemetics are ordered, use ondansetron first. Start with 4mg and if ineffective in 30 minutes, give an additional 4mg., Routine ondansetron (Zofran) tablet 4-8 mg 4-8 mg, Oral, EVERY 8 HOURS PRN, Starting on Emely 03/17/22 at 1011, Until Emely 03/17/22 at 1704, Nausea, Vomiting, If multiple antiemetics are ordered, use ondansetron first. PO Preferred. If patient unable to take PO, may give IV if ordered. Start with 4mg and if ineffective in 45 minutes, give an additional 4mg. If unable to take PO, may give IV., Routine traMADoL (Ultram) tablet 50 mg 50 mg, Oral, EVERY 6 HOURS PRN, Starting on Emely 03/17/22 at 1011, Until Emely 03/17/22 at 1704, Pain, Routine Given 03/17/2022 11:11 AM EST 50 mg documented in this encounter Active and Recently Administered Medications Times are shown in EST. Scheduled Medication Order 03/15/2022 03/16/2022 03/17/2022 atorvastatin (Lipitor) tablet 20 mg 20 mg, Oral, NIGHTLY, First dose on Mon03/17/22 at 2100, Until Discontinued, Formulary sub for Simvastatin 40mg, Routine ceFAZolin (Ancef) 2 g vial attach to sodium chloride 0.9% 100 mL Mini-Bag Plus (COMPLETED) 2 g, Intravenous, ONCE, 1 dose, On Mon03/17/22 at 0715, Administer over 30 Minutes, To be administered upon arrival to the OR within one hour prior to incision., Day of Surgery (Day of Procedure), Indication for (Active or Suspected): Prophylaxis 727 (New Bag - Prov ider: Ellen Mckenzie, ENGINE DISPATCHER) insulin lispro (HumaLOG;Admelog) (100 unit/mL) subcutaneous injection vial 1-6 Units(Linked Group 1) 1-6 Units, Subcutaneous, 3 TIMES DAILY BEFORE MEALS, First dose on Mon03/17/22 at 1130, Until Discontinued, CORRECTION BOLUS [1-6 Units] Moderate Sliding Scale (BG in mg/dL): Correction factor 20 (1 unit of insulin is expected to drop the glucose 20 mg/dL) BG 140 - 160 Give 1 unit BG 161 - 180 Give 2 units BG 181 - 200 Give 3 units BG 201 - 220 Give 4 units BG 221 - 240 Give 5 units BG greater than 240, give 6 units and recheck BG in 2 hours. - If recheck BG is LESS than 240, give no insulin and resume schedule. - If recheck BG is GREATER than 240, give 6 units and repeat BG in 2 hours (no more than 3 times) & call for new insulin orders. DO NOT hold if NPO, unless specifically directed to do so by written order. Per Blood Glucose Monitoring Policy, re-check a BG of > 240 mg/dL in 2 hours., Routine 1130 (Not Given - Pr ovider: Wang Martinez, SHIVAM - Reason: Order parameters not met) levothyroxine (Synthroid) tablet 137 mcg 137 mcg, Oral, DAILY, First dose on Mon03/17/22 at 1100, Until Discontinued, Routine 1100 (Due) lisinopriL (Zestril) tablet 10 mg 10 mg, Oral, DAILY, First dose on Emely 03/17/22 at 1100, Until Discontinued, Routine 1100 (Due) sodium chloride 0.9 % (flush) (BD PosiFlush Normal Saline 0.9) flush 3 mL 3 mL, Intravenous, EVERY 12 HOURS SCHEDULED (2 times per day), First dose on Emely 03/17/22 at 1100, Until Discontinued, Routine 1100 (Due) tamsulosin (Flomax) capsule 0.4 mg 0.4 mg, Oral, DAILY, First dose on Emely 03/17/22 at 1100, Until Discontinued, DO NOT CRUSH OR OPEN, Routine 1100 (Due) Continuous Medication Order 03/15/2022 03/16/2022 03/17/2022 lactated ringers infusion (CANCELED) 1,000 mL, at 50 mL/hr, Intravenous, CONTINUOUS, Starting on Emely 03/17/22 at 0715, Until Emely 03/17/22 at 1007, Day of Surgery (Day of Procedure) 0659 (New Bag - Prov ider: Milla Harris RN)0718 (Paused - Provider: Ellen Mckenzie CRNA - Comment: Switch to gravity)0719 (New Bag - Provider: Ellen Mckenzie CRNA)0900 (New Bag - Provider: Ellen Mckenzie CRNA)1007 (Stopped - Provider: Wang Martinez RN) PRN Medication Order 03/15/2022 03/16/2022 03/17/2022 acetaminophen (Tylenol) tablet 650 mg 650 mg, Oral, EVERY 4 HOURS PRN, Starting on Emely 03/17/22 at 1011, Until Emely 03/17/22 at 1704, Pain, Fever, Administer for mild pain (1-3) or temperature greater than or equal to 38 degrees celsius. Maximum dose of acetaminophen is 4,000 mg from all sources in 24 hours. When ordered for pain, acetaminophen should be given even when other ordered pain medications are indicated., Routine 1111 (Given - Provid er: Wang Martinez RN) dextrose 50% intravenous solution 12.5-25 g(Linked Group 2) 12.5-25 g, Intravenous, EVERY 30 MIN PRN, Starting on Emely 03/17/22 at 1011, Until Emely 03/17/22 at 1704, Low blood sugar, For BG 50-70 mg/dL: Oral treatment preferred:?? If able to drink, give 120 mL Juice or Regular (not diet) soda OR If NPO, give 15 gram glucose 40% oral gel massaged into buccal mucosa OR if unconscious or uncooperative, give 12.5 gram (25 mL) Dextrose 50% IV OR, if no IV access, 1 mg Glucagon IM. For BG less than 50 mg/dL: Oral treatment preferred:?? If able to drink, give 240 mL Juice or Regular (not diet) soda OR If NPO, give 30 gram glucose 40% oral gel massaged in buccal mucosa OR if unconscious or uncooperative, give 25 gram (50 mL) Dextrose 50% IV OR, if no IV access, 1 mg Glucagon IM. Recheck BG in 30 minutes. May repeat juice, gel, dextrose or glucagon once per episode. To avoid extravasation, push Dextrose 50% SLOWLY (3 mL over 1 minute) in a patent, running IV, preferably a central line. For persistent hypoglycemia, consider longer-acting treatment for the duration of the active insulin., Routine glucagon (Glucagen) (1 mg/mL) injection solution 1 mg(Linked Group 2) 1 mg, Intramuscular, EVERY 30 MIN PRN, Starting on Emely 03/17/22 at 1011, Until Emely 03/17/22 at 1704, Low blood sugar, For BG 50-70 mg/dL: Oral treatment preferred:?? If able to drink, give 120 mL Juice or Regular (not diet) soda OR If NPO, give 15 gram glucose 40% oral gel massaged into buccal mucosa OR if unconscious or uncooperative, give 12.5 gram (25 mL) Dextrose 50% IV OR, if no IV access, 1 mg Glucagon IM. For BG less than 50 mg/dL: Oral treatment preferred:?? If able to drink, give 240 mL Juice or Regular (not diet) soda OR If NPO, give 30 gram glucose 40% oral gel massaged in buccal mucosa OR if unconscious or uncooperative, give 25 gram (50 mL) Dextrose 50% IV OR, if no IV access, 1 mg Glucagon IM. Recheck BG in 30 minutes. May repeat juice, gel, dextrose or glucagon once per episode. To avoid extravasation, push Dextrose 50% SLOWLY (3 mL over 1 minute) in a patent, running IV, preferably a central line. For persistent hypoglycemia, consider longer-acting treatment for the duration of the active insulin., Routine glucose (Glutose) 40% oral geL(Linked Group 2) 15-30 g of glucose, Buccal, EVERY 30 MIN PRN, Starting on Emely 03/17/22 at 1011, Until Emely 03/17/22 at 1704, Low blood sugar, For BG 50-70 mg/dL: Oral treatment preferred:?? If able to drink, give 120 mL Juice or Regular (not diet) soda OR If NPO, give 15 gram glucose 40% oral gel massaged into buccal mucosa OR if unconscious or uncooperative, give 12.5 gram (25 mL) Dextrose 50% IV OR, if no IV access, 1 mg Glucagon IM. For BG less than 50 mg/dL: Oral treatment preferred:?? If able to drink, give 240 mL Juice or Regular (not diet) soda OR If NPO, give 30 gram glucose 40% oral gel massaged in buccal mucosa OR if unconscious or uncooperative, give 25 gram (50 mL) Dextrose 50% IV OR, if no IV access, 1 mg Glucagon IM. Recheck BG in 30 minutes. May repeat juice, gel, dextrose or glucagon once per episode. To avoid extravasation, push Dextrose 50% SLOWLY (3 mL over 1 minute) in a patent, running IV, preferably a central line. For persistent hypoglycemia, consider longer-acting treatment for the duration of the active insulin. 1 tube of Glutose-15 contains 15 grams of glucose (net weight of tube = 37.5 grams.), Routine HYDROmorphone (Dilaudid) (2 mg/mL) multi-dose injection solution 1 mg 1 mg, Intravenous, EVERY 3 HOURS PRN, Starting on Emely 03/17/22 at 1011, Until Emely 03/17/22 at 1704, Pain, For SEVERE pain (7 - 10), Routine HYDROmorphone (Dilaudid) tablet 2 mg (COMPLETED) 2 mg, Oral, ONCE PRN, 1 dose, Starting on Emely 03/17/22 at 0934, Until Emely 03/17/22 at 0958, Pain, PACU Recovery, Routine 0958 (Given - Provid er: Colby Conklin RN) ondansetron (pf) (Zofran) (2 mg/mL) injection 4-8 mg(Linked Group 3) 4-8 mg, Intravenous, EVERY 8 HOURS PRN, Starting on Emely 03/17/22 at 1011, Until Emely 03/17/22 at 1704, Nausea, Vomiting, 4 mg, Oral, EVERY 8 HOURS PRN, Nausea, Vomiting If multiple antiemetics are ordered, use ondansetron first. Start with 4mg and if ineffective in 30 minutes, give an additional 4mg., Routine ondansetron (Zofran) tablet 4-8 mg(Linked Group 3) 4-8 mg, Oral, EVERY 8 HOURS PRN, Starting on Emely 03/17/22 at 1011, Until Emely 03/17/22 at 1704, Nausea, Vomiting, If multiple antiemetics are ordered, use ondansetron first. PO Preferred. If patient unable to take PO, may give IV if ordered. Start with 4mg and if ineffective in 45 minutes, give an additional 4mg. If unable to take PO, may give IV., Routine sodium chloride 0.9 % (flush) (BD PosiFlush Normal Saline 0.9) flush 5-20 mL 5-20 mL, Intravenous, EVERY 1 MIN PRN, Starting on Emely 03/17/22 at 1011, Until Emely 03/17/22 at 1704, flush, Flush pertains to all indwelling lines. Flush per protocol found in the job aid using the link provided on this medication record., Routine traMADoL (Ultram) tablet 50 mg 50 mg, Oral, EVERY 6 HOURS PRN, Starting on Emely 03/17/22 at 1011, Until Emely 03/17/22 at 1704, Pain, Routine 1111 (Given - Provid er: Wang Martinez RN) Linked Groups Order Group 1: POCT Fingerstick Glucose (CANCELED) Routine, 4 TIMES DAILY BEFORE MEALS & AT BEDTIME, First occurrence on Emely 03/17/22 at 1100, Until Specified, Consider choosing FOUR TIMES A DAY BEFORE MEALS AND AT BEDTIME as frequency for: Patients who have a good hypoglycemia awareness: -Patients who are eating meals during the day and sleeping at night -Patient who are otherwise stable And insulin lispro (HumaLOG;Admelog) (100 unit/mL) subcutaneous injection vial 1-6 UnitsJump to med 1-6 Units, Subcutaneous, 3 TIMES DAILY BEFORE MEALS, First dose on Mon03/17/22 at 1130, Until Discontinued, CORRECTION BOLUS [1-6 Units] Moderate Sliding Scale (BG in mg/dL): Correction factor 20 (1 unit of insulin is expected to drop the glucose 20 mg/dL) BG 140 - 160 Give 1 unit BG 161 - 180 Give 2 units BG 181 - 200 Give 3 units BG 201 - 220 Give 4 units BG 221 - 240 Give 5 units BG greater than 240, give 6 units and recheck BG in 2 hours. - If recheck BG is LESS than 240, give no insulin and resume schedule. - If recheck BG is GREATER than 240, give 6 units and repeat BG in 2 hours [...] Buccal, EVERY 30 MIN PRN, Starting on Mon03/17/22 at 1011, Until Mon03/17/22 at 1704, Low blood sugar, For BG 50-70 mg/dL: Oral treatment preferred:?? If able to drink, give 120 mL Juice or Regular (not diet) soda OR If NPO, give 15 gram glucose 40% oral gel massaged into buccal mucosa OR if unconscious or uncooperative, give 12.5 gram (25 mL) Dextrose 50% IV OR, if no IV access, 1 mg Glucagon IM. For BG less than 50 mg/dL: Oral treatment preferred:?? If able to drink, give 240 mL Juice or Regular (not diet) soda OR If NPO, give 30 gram glucose 40% oral gel massaged in buccal mucosa OR if unconscious or uncooperative, give 25 gram (50 mL) Dextrose 50% IV OR, if no IV access, 1 mg Glucagon IM. Recheck BG in 30 minutes. May repeat juice, gel, dextrose or glucagon once per episode. To avoid extravasation, push Dextrose 50% SLOWLY (3 mL over 1 minute) in a patent, running IV, preferably a central line. For persistent hypoglycemia, consider longer- acting treatment for the duration of the active insulin. 1 tube of Glutose-15 contains 15 grams of glucose (net weight of tube = 37.5 grams.), Routine Or dextrose 50% intravenous solution 12.5-25 gJump to med 12.5-25 g, Intravenous, EVERY 30 MIN PRN, Starting on Emely 03/17/22 at 1011, Until Emely 03/17/22 at 1704, Low blood sugar, For BG 50-70 mg/dL: Oral treatment preferred:?? If able to drink, give 120 mL Juice or Regular (not diet) soda OR If NPO, give 15 gram glucose 40% oral gel massaged into buccal mucosa OR if unconscious or uncooperative, give 12.5 gram (25 mL) Dextrose 50% IV OR, if no IV access, 1 mg Glucagon IM. For BG less than 50 mg/dL: Oral treatment preferred:?? If able to drink, give 240 mL Juice or Regular (not diet) soda OR If NPO, give 30 gram glucose 40% oral gel massaged in buccal mucosa OR if unconscious or uncooperative, give 25 gram (50 mL) Dextrose 50% IV OR, if no IV access, 1 mg Glucagon IM. Recheck BG in 30 minutes. May repeat juice, gel, dextrose or glucagon once per episode. To avoid extravasation, push Dextrose 50% SLOWLY (3 mL over 1 minute) in a patent, running IV, preferably a central line. For persistent hypoglycemia, consider longer- acting treatment for the duration of the active insulin., Routine Or glucagon (Glucagen) (1 mg/mL) injection solution 1 mgJump to med 1 mg, Intramuscular, EVERY 30 MIN PRN, Starting on Emely 03/17/22 at 1011, Until Emely 03/17/22 at 1704, Low blood sugar, For BG 50-70 mg/dL: Oral treatment preferred:?? If able to drink, give 120 mL Juice or Regular (not diet) soda OR If NPO, give 15 gram glucose 40% oral gel massaged into buccal mucosa OR if unconscious or uncooperative, give 12.5 gram (25 mL) Dextrose 50% IV OR, if no IV access, 1 mg Glucagon IM. For BG less than 50 mg/dL: Oral treatment preferred:?? If able to drink, give 240 mL Juice or Regular (not diet) soda OR If NPO, give 30 gram glucose 40% oral gel massaged in buccal mucosa OR if unconscious or uncooperative, give 25 gram (50 mL) Dextrose 50% IV OR, if no IV access, 1 mg Glucagon IM. Recheck BG in 30 minutes. May repeat juice, gel, dextrose or glucagon once per episode. To avoid extravasation, push Dextrose 50% SLOWLY (3 mL over 1 minute) in a patent, running IV, preferably a central line. For persistent hypoglycemia, consider longer- acting treatment for the duration of the active insulin., Routine Group 3: ondansetron (Zofran) tablet 4-8 mgJump to med 4-8 mg, Oral, EVERY 8 HOURS PRN, Starting on Emely 03/17/22 at 1011, Until Emley 03/17/22 at 1704, Nausea, Vomiting, If multiple antiemetics are ordered, use ondansetron first. PO Preferred. If patient unable to take PO, may give IV if ordered. Start with 4mg and if ineffective in 45 minutes, give an additional 4mg. If unable to take PO, may give IV., Routine Or ondansetron (pf) (Zofran) (2 mg/mL) injection 4-8 mgJump to med 4-8 mg, Intravenous, EVERY 8 HOURS PRN, Starting on Emely 03/17/22 at 1011, Until Emely 03/17/22 at 1704, Nausea, Vomiting, 4 mg, Oral, EVERY 8 HOURS PRN, Nausea, Vomiting If multiple antiemetics are ordered, use ondansetron first. Start with 4mg and if ineffective in 30 minutes, give an additional 4mg., Routine documented in this encounter Care Teams Nuclear Power Plant Engineer Relationship Specialty Start Date End Date Nicolasa Valenzuela PA [address] [place] [address] PCP - General Family Medicine 12/20/21 documented as of this encounter
--- OUTSIDE RECORDS SUMMARY | 2023-10-16 03:18 | XMS_ITS | Encounter Summary ---
Author Organization [facility] [place] [address] Care Team Providers Care Wastewater Plant Civil Engineer Name Role Phone Nicolasa Valenzuela [...] SPINE SURGERY ONLY; MORSELIZED (WRVU *) MODIFIER [address] - Bebe Umanzor MD [address] [place] [address] [facility] Referral ID Status Reason Start Date Expiration Date Visits Re quested Visits Authorized [id number] 1 1 Encounter Details Date Type Department Care Team (Late st Contact Info) Description 03/17/2022 7:00 AM EST Ancillary Procedure Radiology Xray at [address] [place] [address] Social History Tobacco Use Types Packs/Day Years [...] PM EDT Office Visit Hematology/Oncology at [address] [phone] [address] [facility] [place] [address] 11/10/2023 9:00 AM EDT Appointment [place] [phone] [facility] [place] [address] 11/21/2023 11:00 AM EDT Infusion Hematology Oncology at [address] [phone] 12/05/2023 1:30 PM EDT Office Visit Hematology/Oncology at [address] [phone] [facility] [place] [address] [facility] [place] [address] 12/26/2023 9:00 AM EDT Appointment [place] [phone] [facility] [place] [address] 02/09/2024 8:00 AM EST Appointment Nuclear Medicine at [place] [phone] [facility] [place] [address] 03/18/2024 3:00 PM EST Office Visit Cardiology at [address] [phone] [address] [facility] [place] [address] 03/22/2024 9:00 AM EST Appointment Nuclear Medicine at [place] [phone] [facility] [place] [address] 08/23/2024 Hospital Encounter [place] [phone] [facility] [place] [address] Scheduled Procedures Name Priority Associated Diagnoses Date/Ti [...] OR USE Routine 03/17/2022 9:04 AM EST documented in this encounter Results * XR Fluoro No Rad <1Hr - OR Use (03/17/2022 9:04 AM EST) Narrative Dicom, Auditing User - 03/17/2022 9:04 AM EST This exam is auto-finalizing. No interpretation was done. Bebe Hatfield MD IMG FLUORO ORDERA BLES documented in this encounter Visit Diagnoses Not on filedocumented in this encounter Care Teams Wastewater Plant Civil Engineer Relationship Specialty Start Date End Date Nicolasa Valenzuela PA [address] [place] [address] PCP - General Family Medicine 12/20/21 documented as of this encounter
--- OUTSIDE RECORDS SUMMARY | 2023-10-16 03:18 | XMS_ITS | Encounter Summary ---
Author Organization [facility] [place] [address] Care Team Providers Care Wood Strip Block Floor Installer Name Role Phone Nicolasa Valenzuela Primary Care Pro vider Encounter Details Date Type Department Care Team (Latest Contact Info) Description 04/18/2022 Travel Social History Tobacco Use Types Packs/Day [...] PM EDT Office Visit Hematology/Oncology at [address] [phone] Fiordaliza Downing APRN [facility] [place] [address] 11/10/2023 9:00 AM EDT Appointment [place] [phone] Thomas Curtis MD [facility] DR HEMATOLOGY [place] [address] 11/21/2023 11:00 AM EDT Infusion Hematology Oncology at [address] [phone] 12/05/2023 1:30 PM EDT Office Visit Hematology/Oncology at [address] [phone] Thomas Curtis MD [facility] HEMATOLOGY [place] [address] Fiordaliza Downing APRN [facility] [place] [address] 12/26/2023 9:00 AM EDT Appointment [place] [phone] Thomas Curtis MD [facility] HEMATOLOGY [place] [address] 02/09/2024 8:00 AM EST Appointment [place] [phone] Thomas Curtis MD [facility] HEMATOLOGY [place] [address] 03/18/2024 3:00 PM EST Office Visit Cardiology at [address] [place] [phone] Sameer Rudolph MD [facility] [place] [address] 03/22/2024 9:00 AM EST Appointment [place] [phone] Thomas Curtis MD [facility] HEMATOLOGY [place] [address] 08/23/2024 Hospital Encounter Main [place] [phone] True Juarez MD [facility] [place] [address] Scheduled Procedures Name Priority Associated Diagnoses Date/Ti me CYSTO, STENT PLACEMENT (WRVU 2.82) Hydronephrosis with ureteral stricture, not elsewhere classified CYSTO, REMOVAL OF STENT, FOR EIGN BODY OR CALCULUS, SIMPLE (WRVU 2.81) Hydronephrosis with ureteral stricture, not elsewhere classified documented as of this encounter Visit Diagnoses Not on filedocumented in this encounter Care Teams Wood Strip Block Floor Installer Relationship Specialty Start Date End Date Nicolasa Valenzuela PA [address] [place] [address] PCP - General Family Medicine 12/20/21 documented as of this encounter
--- OUTSIDE RECORDS SUMMARY | 2023-10-16 03:18 | XMS_ITS | Encounter Summary ---
Author Organization [facility] Address [facility] [place] [address] Care Team Providers Care Supervisor Meter Shop Name Role Phone Nicolasa Valenzuela Primary Care Pro vider Encounter Details Date Type Department Care Team (Late st Contact Info) Description 12/28/2021 10:40 AM EDT TH Visit (TeleHealth) [place] [address] True Juarez MD [facility] [place] [address] Elevated PSA Social History Tobacco Use Types Packs/Day Years Used Date Smoking Tobacco: Never Assessed Sex and Gender Information Value Date Recorded Sex Assigned at Not on file Gender Identity Not on file Sexual Orientation Not on file documented as of this encounter Progress Notes * True Juarez MD - 12/28/2021 10:40 AM EDT Outpatient Follow-up Visit Huber Kennedy Massimo presents via telephone today to review the results of his recent prostate biopsy. He has done well since the procedure. Biopsy revealed NO evidence of cancer I explained that this is exceptionally odd given that his PSA was 30 at the initial evaluation and then bumped up to 100 prior to his biopsy but perhaps there is some infectious or inflammatory process that is driving this. He does have some bothersome nocturia but otherwise has not had any obvious signs or symptoms of prostatitis. I discussed that I think would be reasonable in his case to treat him for a subacute prostatitis with 1 month of doxycycline and also treat his LUTS with Flomax to help with the symptoms in the evening. We will then recheck his PSA to see if there is any substantial decrease. I explained that even though we did not find cancer on his biopsy and his MRI is negative it is possible that there is some disease that we are missing but I think it is very unlikely given what we have so far but that I think it is safe to attempt the above and then go from there. I will schedule telehealth appointment in 2 months and will get a PSA in [place] prior. Patient verbally consents to this telephone visit and understands that this visit may be billed, similar to a clinic office visit. I provided care to the patient today via telephone call. The total time associated with this visit was 20 minutes. documented in this encounter Plan of Treatment Upcoming Encounters Date Type Department Care Team (Late st Contact Info) Description 10/16/2023 2:30 PM EDT Office Visit Hematology/Oncology at [address] [phone] Fiordaliza Downing APRN [facility] [place] [address] 11/10/2023 9:00 AM EDT Appointment [place] [address] Thomas Curtis MD [facility] DR [place] [address] 11/21/2023 11:00 AM EDT Infusion Hematology Oncology at [address] [phone] 12/05/2023 1:30 PM EDT Office Visit Hematology/Oncology at [address] [phone] Thomas Curtis MD [facility] DR [place] [address] Fiordaliza Downing APRN [facility] [place] [address] 12/26/2023 9:00 AM EDT Appointment Nuclear Medicine at [place] [phone] Thomas Curtis MD [facility] [place] [address] 02/09/2024 8:00 AM EST Appointment Nuclear Medicine at [place] [phone] Thomas Curtis MD [facility] [place] [address] 03/18/2024 3:00 PM EST Office Visit Cardiology at [address] [phone] Sameer Rudolph MD [facility] [place] [address] 03/22/2024 9:00 AM EST Appointment Nuclear Medicine at [place] [phone] Thomas Curtis MD [facility] [place] [address] 08/23/2024 Hospital Encounter Main Operating Room [place] [phone] True Juarez MD [facility] [place] [address] Scheduled Procedures Name Priority Associated Diagnoses Date/Ti me CYSTO, STENT PLACEMENT (WRVU 2.82) Hydronephrosis with ureteral stricture, not elsewhere classified CYSTO, REMOVAL OF STENT, FOR EIGN BODY OR CALCULUS, SIMPLE (WRVU 2.81) Hydronephrosis with ureteral stricture, not elsewhere classified documented as of this encounter Visit Diagnoses Diagnosis Elevated PSA Elevated prostate specific antigen (PSA) documented in this encounter Care Teams Supervisor Meter Shop Relationship Specialty Start Date End Date Nicolasa Valenzuela PA [address] [place] [address] PCP - General Family Medicine 12/20/21 documented as of this encounter
--- OUTSIDE RECORDS SUMMARY | 2023-10-16 03:18 | XMS_ITS | Encounter Summary ---
Author Organization [facility] [place] [address] Care Team Providers Care Company Pilot Name Role Phone Nicolasa Valenzuela Primary Care Pro vider Encounter Details Date Type Department Care Team (Late st Contact Info) Description 06/27/2022 9:20 AM EDT TH Visit (TeleHealth) [place] [address] True Juarez MD [facility] [place] [address] Elevated PSA Social History Tobacco Use Types [...] Progress Notes * True Juarez MD - 06/27/2022 9:20 AM EDT Urologic Outpatient Consult Note HPI: Huber Keys is a 66 y.o. year old male referred for 1) Elevated PSA PSA History: 08/2021 - 35 10/2021 - mpMRI showed a 72g, P5 lesions in the bilateral TZ 12/2021 - TRUS Bx Negative 12/2021 - 111 03/2022 We did treat for prostatitis x 30 days empirically OFELIA negative at the time of biopsy Impression: # Elevated PSA, P5 (PZ on mpMRI) but negative fusion biopsy # PSA down a lot but still VERY elevated Plan: # Repeat PSA in 3 months (ammonousic in [place]) , if not down significantly then I will recommend repeat mpMRI / biopsy We discussed other options including repeat biopsy now versus PSMA scan which I am concerned would likely not be covered. I discussed that given the PSA I am definitely concerned that we are missing something but given his negative biopsy at really know what else to do at this juncture since its been less than a year. I think is very safe to keep an eye on the PSA level unless it drops below his initial PSA of 35 I would recommend getting another MRI and then biopsy under anesthesia so we can take some extended samples. He is aware of the possibility of there being prostate cancer that we have not yet been able to diagnose he is comfortable with the plan. documented in this encounter Plan of Treatment Upcoming Encounters Date Type Department Care Team (Late st Contact Info) Description 10/16/2023 2:30 PM EDT Office Visit Hematology/Oncology at [address] [phone] Fiordaliza Downing APRN [facility] [place] [address] 11/10/2023 9:00 AM EDT Appointment [place] [address] Thomas Curtis MD [facility] [place] [address] 11/21/2023 11:00 AM EDT Infusion Hematology Oncology at [address] [phone] 12/05/2023 1:30 PM EDT Office Visit Hematology/Oncology at [address] [phone] Thomas Curtis MD [facility] [place] [address] Fiordaliza Downing APRN [facility] [place] [address] 12/26/2023 9:00 AM EDT Appointment Nuclear Medicine at [place] [phone] Thomas Curtis MD [facility] [place] [address] 02/09/2024 8:00 AM EST Appointment [place] [phone] Thomas Curtis MD [facility] [place] [address] 03/18/2024 3:00 PM EST Office Visit Cardiology at [address] [phone] Sameer Rudolph MD [facility] [place] [address] 03/22/2024 9:00 AM EST Appointment [place] [phone] Thomas Curtis MD [facility] [place] [address] 08/23/2024 Hospital Encounter [place] [phone] True Juarez MD [facility] [place] [address] Scheduled Procedures Name Priority Associated Diagnoses Date/Ti me CYSTO, STENT PLACEMENT (WRVU 2.82) Hydronephrosis with ureteral stricture, not elsewhere classified CYSTO, REMOVAL OF STENT, FOR EIGN BODY OR CALCULUS, SIMPLE (WRVU 2.81) Hydronephrosis with ureteral stricture, not elsewhere classified documented as of this encounter Visit Diagnoses Diagnosis Elevated PSA Elevated prostate specific antigen (PSA) documented in this encounter Care Teams Company Pilot Relationship Specialty Start Date End Date Nicolasa Valenzuela PA [address] [place] [address] PCP - General Family Medicine 12/20/21 documented as of this encounter
--- OUTSIDE RECORDS SUMMARY | 2023-10-16 03:18 | XMS_ITS | Encounter Summary ---
Author Organization [facility] [place] [address] Care Team Providers Care Industrial Radiographer Name Role Phone Nicolasa Valenzuela Primary Care Pro vider Encounter Details Date Type Department Care Team (Latest Contact Info) Description 07/06/2022 Travel Social History Tobacco Use Types Packs/Day [...] PM EDT Office Visit Hematology/Oncology at [address] [phone] Fiordaliza Downing APRN [facility] [place] [address] 11/10/2023 9:00 AM EDT Appointment [place] [phone] Thomas Curtis MD [facility] DR HEMATOLOGY [place] [address] 11/21/2023 11:00 AM EDT Infusion Hematology Oncology at [address] [phone] 12/05/2023 1:30 PM EDT Office Visit Hematology/Oncology at [address] [phone] Thomas Curtis MD [facility] HEMATOLOGY [place] [address] Fiordaliza Downing APRN [facility] [place] [address] 12/26/2023 9:00 AM EDT Appointment [place] [phone] Thomas Curtis MD [facility] HEMATOLOGY [place] [address] 02/09/2024 8:00 AM EST Appointment [place] [phone] Thomas Curtis MD [facility] HEMATOLOGY [place] [address] 03/18/2024 3:00 PM EST Office Visit Cardiology at [address] [place] [phone] Sameer Rudolph MD [facility] [place] [address] 03/22/2024 9:00 AM EST Appointment [place] [phone] Thomas Curtis MD [facility] HEMATOLOGY [place] [address] 08/23/2024 Hospital Encounter [place] [phone] True Juarez MD [facility] [place] [address] Scheduled Procedures Name Priority Associated Diagnoses Date/Ti me CYSTO, STENT PLACEMENT (WRVU 2.82) Hydronephrosis with ureteral stricture, not elsewhere classified CYSTO, REMOVAL OF STENT, FOR EIGN BODY OR CALCULUS, SIMPLE (WRVU 2.81) Hydronephrosis with ureteral stricture, not elsewhere classified documented as of this encounter Visit Diagnoses Not on filedocumented in this encounter Care Teams Industrial Radiographer Relationship Specialty Start Date End Date Nicolasa Valenzuela PA [address] [place] [address] PCP - General Family Medicine 12/20/21 documented as of this encounter
--- OUTSIDE RECORDS SUMMARY | 2023-10-16 03:18 | XMS_ITS | Encounter Summary ---
Author Organization [facility] [place] [address] Care Team Providers Care Sales Apprentice Name Role Phone Nicolasa Valenzuela Primary Care Pro vider Encounter Details Date Type Department Care Team (Latest Contact Info) Description 2022 Travel Social History Tobacco Use Types Packs/Day [...] PM EDT Office Visit Hematology/Oncology at [address] [phone] Fiordaliza Downing APRN [facility] [place] [address] 11/10/2023 9:00 AM EDT Appoint[place] [phone] Thomas Curtis MD [facility] DR [place] [address] 11/21/2023 11:00 AM EDT Infusion Hematology Oncology at [address] [phone] 12/05/2023 1:30 PM EDT Office Visit Hematology/Oncology at [address] [phone] Thomas Curtis MD [facility] [place] [address] Fiordaliza Downing APRN [facility] [place] [address] 12/26/2023 9:00 AM EDT Appointment [place] [phone] Thomas Curtis MD [facility] [place] [address] 02/09/2024 8:00 AM EST Appointment [place] [phone] Thomas Curtis MD [facility] [place] [address] 03/18/2024 3:00 PM EST Office Visit Cardiology at [address] [place] [phone] Sameer Rudolph MD [facility] [place] [address] 03/22/2024 9:00 AM EST Appointment [place] [phone] Thomas Curtis MD [facility] [place] [address] 08/23/2024 Hospital Encounter [place] [phone] True Juarez MD [facility] [place] [address] Scheduled Procedures Name Priority Associated Diagnoses Date/Ti me CYSTO, STENT PLACEMENT (WRVU 2.82) Hydronephrosis with ureteral stricture, not elsewhere classified CYSTO, REMOVAL OF STENT, FOR EIGN BODY OR CALCULUS, SIMPLE (WRVU 2.81) Hydronephrosis with ureteral stricture, not elsewhere classified documented as of this encounter Visit Diagnoses Not on filedocumented in this encounter Care Teams Sales Apprentice Relationship Specialty Start Date End Date Nicolasa Valenzuela PA [address] [place] [address] PCP - General Family Medicine 12/20/21 documented as of this encounter
--- OUTSIDE RECORDS SUMMARY | 2023-10-16 03:18 | XMS_ITS | Encounter Summary ---
Author Organization [facility] [place] [address] Care Team Providers Care Business Services Assistant Name Role Phone Nicolasa Valenzuela Primary Care Pro vider Encounter Details Date Type Department Care Team (Late Contact Info) Description 2022 Ancillary Procedure [place] [phone] Social History Tobacco Use Types Packs/Day Years [...] Upcoming Encounters Date Type Department Care Team ([facility] Contact Info) Description 10/16/2023 2:30 PM EDT Office Visit Hematology/Oncology at [address] [phone] Fiordaliza Downing APRN [facility] [place] [address] 11/10/2023 9:00 AM EDT Appointment [place] [phone] Thomas Curtis MD [facility] [place] [address] 11/21/2023 11:00 AM EDT Infusion Hematology Oncology at [address] [phone] 12/05/2023 1:30 PM EDT Office Visit Hematology/Oncology at [address] [phone] Thomas Curtis MD [facility] [place] [address] Fiordaliza Downing APRN [facility] [place] [address] 12/26/2023 9:00 AM EDT Appointment [place] [phone] Thomas Curtis MD [facility] [place] [address] 02/09/2024 8:00 AM EST Appointment [place] [phone] Thomas Curtis MD [facility] [place] [address] 03/18/2024 3:00 PM EST Office Visit Cardiology at [address] [place] [phone] Sameer Rudolph MD [facility] [place] [address] 03/22/2024 9:00 AM EST Appointment [place] [phone] Thomas Curtis MD [facility] DR [place] [address] 08/23/2024 Hospital Encounter Main Operating Room [facility] [place] [phone] True Juarez MD [facility] [place] [address] Scheduled Procedures Name Priority Associated Diagnoses Date/Ti me CYSTO, STENT PLACEMENT (WRVU 2.82) Hydronephrosis with ureteral stricture, not elsewhere classified CYSTO, REMOVAL OF STENT, FOR EIGN BODY OR CALCULUS, SIMPLE (WRVU 2.81) Hydronephrosis with ureteral stricture, not elsewhere classified documented as of this encounter Procedures Procedure Name Priority Date/Time Associated Diagnosis Comments FILM LIBRARY STORAGE ONLY CT ABDOMEN AND PELVIS Routine 2022 12:00 AM EDT documented in this encounter Results * Film Library- Storage Only CT Abdomen & Pelvis (2022 12:00 AM EDT) Narrative Dicom, Auditing User - 09/29/2022 1:47 PM EDT This exam is auto-finalizing. It's purpose is for storage only. Rocco Zamora MD G FILM LIBRARY ORD ERABLES documented in this encounter Visit Diagnoses Not on filedocumented in this encounter Care Teams Business Services Assistant Relationship Specialty Start Date End Date Nicolasa Valenzuela PA [address] [place] [address] PCP - General Family Medicine 12/20/21 documented as of this encounter
--- OUTSIDE RECORDS SUMMARY | 2023-10-16 03:18 | XMS_ITS | Encounter Summary ---
Author Organization [facility] [place] [address] Care Team Providers Care Mortgage Originator Name Role Phone Nicolasa Valenzuela Primary Care Pro vider Encounter Details Date Type Department Care Team (Late st Contact Info) Description 2022 Telephone [place] [address] Evangelist Castañeda MD [facility] [place] [address] Social History Tobacco Use Types Packs/Day Years [...] Telephone Encounter - Evangelist Castañeda MD - 2022 1:42 PM EDT Call from PCP Followed Dr Juarez for ePSA Now lymphadenopathy/hydronephorisis on CT, diminished renal function Confusing story/complex patient Recommend send records, push imaging. Go to ER and we will evaluate Evangelist Castañeda documented in this encounter Plan of Treatment Upcoming Encounters Date Type Department Care Team (Late st Contact Info) Description 10/16/2023 2:30 PM EDT Office Visit Hematology/Oncology at [address] [phone] Fiordaliza Downing APRN [facility] [place] [address] 11/10/2023 9:00 AM EDT Appointment [place] [address] Thomas Curtis MD [facility] HEMATOLOGY [place] [address] 11/21/2023 11:00 AM EDT Infusion Hematology Oncology at [address] [phone] 12/05/2023 1:30 PM EDT Office Visit Hematology/Oncology at [address] [phone] Thomas Curtis MD [facility] HEMATOLOGY [place] [address] Fiordaliza Downing APRN [facility] [place] [address] 12/26/2023 9:00 AM EDT Appointment [place] [address] Thomas Curtis MD [facility] HEMATOLOGY [place] [address] 02/09/2024 8:00 AM EST Appointment [place] [phone] Thomas Curtis MD [facility] HEMATOLOGY [place] [address] 03/18/2024 3:00 PM EST Office Visit Cardiology at [address] [place] [address] Sameer Rudolph MD [facility] [address] 03/22/2024 9:00 AM EST Appointment [place] [phone] Thomas Curtis MD [facility] HEMATOLOGY [place] [address] 08/23/2024 Hospital Encounter Main Operating [place] [phone] True Juarez MD [facility] [place] [address] Scheduled Procedures Name Priority Associated Diagnoses Date/Ti me CYSTO, STENT PLACEMENT (WRVU 2.82) Hydronephrosis with ureteral stricture, not elsewhere classified CYSTO, REMOVAL OF STENT, FOR EIGN BODY OR CALCULUS, SIMPLE (WRVU 2.81) Hydronephrosis with ureteral stricture, not elsewhere classified documented as of this encounter Visit Diagnoses Not on filedocumented in this encounter Care Teams Mortgage Originator Relationship Specialty Start Date End Date Nicolasa Valenzuela PA [address] [place] [address] PCP - General Family Medicine 12/20/21 documented as of this encounter
--- OUTSIDE RECORDS SUMMARY | 2023-10-16 03:18 | XMS_ITS | Encounter Summary ---
Author Organization [facility] [place] [address] Care Team Providers Care Director Of Recruiting Name Role Phone Nicolasa Valenzuela Primary Care Pro vider Encounter Details Date Type Department Care Team (Late st Contact Info) Description 09/26/2022 [place] [address] True Juarez MD [facility] [place] [address] Social History Tobacco Use Types Packs/Day Years [...] encounter Miscellaneous Notes * Telephone Encounter - Ellen Francisco RN - 09/27/2022 9:36 AM EDT Returned patients call, verified name and . Informed patient that Dr. Juarez still wants to seethe patient and for him to get a PSA done prior. Patient verbalized understanding and states he will go to [address] 2 days prior to have PSA done. * Telephone Encounter - Ellen Francisco RN - 09/26/2022 10:46 AM EDT Copied from CRM #[id number]. Topic: Specialty Dept CRMs - Generic Call >> Sep 26, 2022 8:25 AM Jaime Donovan wrote: Specialist: Dr Juarez Relationship (if other than patient-full name): Patient Reason for Call: Patient has a main campus medical center visit scheduled on 10/11/[address] Juarez but he also has a appointment with Dr Marie from [facility] on Oct 20, Patient wants to know does he still keep the appt with Dr Juarez? And does Dr Marie keep Dr Juarez in the loop through [employer]? One last questions patient's pcp wants him to have a CT scan in [address], Does Dr Juarez approve ot eh CT with his PCP? Please call the patient [phone] documented in this encounter Plan of Treatment Upcoming Encounters Date Type Department Care Team (Late st Contact Info) Description 10/16/2023 2:30 PM EDT Office Visit Hematology/Oncology at [address] [phone] Fiordaliza Downing APRN [facility] [address] 11/10/2023 9:00 AM EDT Appointment [place] [address] Thomas Curtis MD [facility] [place] [address] 11/21/2023 11:00 AM EDT Infusion Hematology Oncology at [address] [phone] 12/05/2023 1:30 PM EDT Office Visit Hematology/Oncology at [address] [phone] Thomas Curtis MD [facility] [place] [address] Fiordaliza Downing APRN [facility] [place] [address] 12/26/2023 9:00 AM EDT Appointment [place] [phone] Thomas Curtis MD [facility] [place] [address] 02/09/2024 8:00 AM EST Appointment [place] [phone] Thomas Curtis MD [facility] [place] [address] 03/18/2024 3:00 PM EST Office Visit Cardiology at [address] [phone] Sameer Rudolph MD [facility] [place] [address] 03/22/2024 9:00 AM EST Appointment [place] [address] Thomas Curtis MD [facility] [place] [address] 08/23/2024 Hospital Encounter [place] [phone] True Juarez MD [facility] [place] [address] Scheduled Procedures Name Priority Associated Diagnoses Date/Ti me CYSTO, STENT PLACEMENT (WRVU 2.82) Hydronephrosis with ureteral stricture, not elsewhere classified CYSTO, REMOVAL OF STENT, FOR EIGN BODY OR CALCULUS, SIMPLE (WRVU 2.81) Hydronephrosis with ureteral stricture, not elsewhere classified documented as of this encounter Visit Diagnoses Not on filedocumented in this encounter Care Teams Director Of Recruiting Relationship Specialty Start Date End Date Nicolasa Valenzuela PA [address] [place] [address] PCP - General Family Medicine 12/20/21 documented as of this encounter
--- OUTSIDE RECORDS SUMMARY | 2023-10-16 03:18 | XMS_ITS | Encounter Summary ---
Author Organization [facility] [place] [address] Care Team Providers Care Assistant Professor Of Music Name Role Phone Victoria Valenzuela Primary Care Pro vider Reason for Visit * Reason Comments Results CT results and kidne y fxn * Auth/Cert (Routine) Specialty Diagnoses / Procedures Referred By Toño mayorga Referred To Contact Diagnoses WALTER (acute kidney injury) Daniel Ortiz MD [facility] [place] [address] [facility] Referral ID Status Reason Start Date Expiration Date Visits Re quested Visits Authorized [id number] 1 1 Encounter Details Date Type Department Care Team (Late st Contact Info) Description 09/29/2022 7:50 PM EDT - 09/29/2022 9:27 PM EDT Surgery [place] [id number] Vasile Castañeda MD [facility] [place] [address] CYSTO, STENT PLACEMENT (WRVU 2.82) Social History [...] Sign Reading Time Taken Comments Blood Pressure 127/78 09/29/2022 9:17 PM EDT Pulse 80 2022 10:00 PM EDT Temperature 36.7 ??C (98.1 ??F) 09/29/2022 9:17 PM ED T Respiratory Rate 17 09/29/2022 9:17 PM EDT Oxygen Saturation 94% 09/29/2022 9:17 PM EDT Inhaled Oxygen Concentration - - Weight 87.8 kg (193 lb 8 oz) 09/29/2022 12:56 AM EDT Height 180.3 cm (5' 11) 09/29/2022 12:56 AM EDT Body Mass Index 26.99 09/29/2022 12:56 AM EDT documented in this encounter Discharge Summaries * Diego Lima MD - 10/03/2022 2:05 PM EDT Discharge Summary Patient Name: Huber Mosher Patient Age: 67 y.o. Language: Occitan Race: White Ethnicity: Not nor Admit date: 2022 Discharge date and time: 10/03/2022 Attending Physician: Sulaiman Medley DO Discharge Physician: Sulaiman Medley DO PCP: JESSE Nesbitt ([phone]) Chief Complaint Patient presents with Results CT results and kidney fxn ID: Huber Mosher is a 67 y.o. male with hx of T2DM, HLD, hypothyroidism, elevated PSA w/ neative biopsy who presents at the instruction of his PCP for imaging findings concerning for hydronephrosis and diffuse retroperitoneal lymphadenopathy, admitted to [facility] on 2022 for a total of 5 [...] Today he went for CT scan at [facility] which showed hydronephrosis and diffuse retroperitoneal lymphadenopathy. [...] Gas): No results found for: PHART, PO2ART, NHI2RHU, GUS3JNI VBG (Venous Blood Gas): No results for input(s): PHVEN, PRK0STU, PO2VEN, MYL6SMM, BEVEN, FZL0XWH in the last 72 hours. EKG: Lab Results Component Value Date/Time DIAGLINE 09/29/[address] & T wave abnormality, consider lateral ischemia Prolonged QT Abnormal ECG No previous ECGs available Confirmed by fellow Hector Sanders ([id number]) on 10/01/2022 6:26:43 PM Confirmed by MD STEARNS ARMIN ([id number]) on 10/02/2022 11:20:59 PM QTCCALC 461 09/29/2022 0321 Vascular: Lab Results Component Value Date/Time VBTEXTRPT 10/03/2022 0749 Department: Vascular Surgery Lab Patient: [id number] (HUBER MOSHER) CPT: 73297 Referring Physician: SULAIMAN MEDLEY Phone: Indications: R>L [...] Component Value Units Date/Time Urine culture Urine [[id number]] Collected: 09/29/22 2245 Lab Status: Final result [...] Center 10/11/2022 10:00 AM True Juarez MD [facility] URO [facility] 10/20/2022 9:30 AM Thad Jimenez MD [facility] HEM ONC [facility] 10/20/2022 10:45 AM LABORATORY, TECH [facility] INF 3K [facility] 11/10/2022 8:20 AM Sameer Rudolph MD [facility] Cardio [facility] You have a hospital follow up appointment scheduled with your primary care provider's office, Monday October 10, 2022 1:00 with Christal Chavis APRN, colleague of JESSE Saldaña Primary Care Provider: JESSE Nesbitt [phone] Your Inpatient Doctor(s) at [facility]: DO Diego Nuno MD Your Primary Care Provider: JESSE Nesbitt [address] / [place] [address] For questions regarding this document or issues relating to this hospitalization on the Medical Service, please contact your inpatient physician through the [facility] Milk Processing Worker . Issues afterhours and on weekends will be handled by the Hospitalist staff on-call. General Instructions [facility] Vascular and Interventional Radiology Biopsy Discharge Instructions [...] be reported to you by your primary director medicare sales or the clinician who ordered the biopsy. Please do not call us for results as we will not have them. If you have not been contacted by your clinician within 5 business days you should call that officefor further information. When to call the Interventional Radiology Department: Please call with any questions or concerns. If it is during regular office hours, please call [phone]. If it is after regular office hours, or on weekends or holidays, please call [phone] and ask to speak to the Wood Handler functional architect for Interventional Radiology. HEART FAILURE ACTION PLAN [...] let your primary care office (specify if qa lead or other group should manage) know if you have to change your diuretic dose. If you ever get into the situation where these diuretic changes are not enough, then your primary care provider may make further adjustments or even refer you to [facility]'s IV diuresis clinic. Your outside doctors can [...] They can send you to see a cafe aide (a person trained to help you with [...] 10:00 AM True Juarez MD Urology at [facility] Arrive at: Home [phone] To view instructions for your video visit, click here, or visit this website: [email or web address] If you have not previously downloaded the [facility] patient portal software, Poetica, or the [employer] flavio, please do so by clicking one of these links below or searching in your device's flavio store. For all desktops/laptops; for Android devices; for Apple/iOS devices FAQs: Join Video Visit button not connecting? - This may be due to pop-up blockers. - Click this link to see: How to Disable Pop-Up Block for myDH Video Visits Zoom asking for a meeting password? - Exit out of the Zoom program and try the link again 10/20/2022 9:30 AM Jacquelyn Kapoor APRN; Thad Jimenez MD Hematology and Oncology at [facility] Arrive at: [employer] [phone] 10/20/2022 10:45 AM [facility] Hematology and Oncology at [facility] Arrive at: [employer] [phone] 11/10/2022 8:20 AM Sameer Rudolph MD Cardiology at [place] Arrive at: [facility] [address] [phone] Provider Contact Information: JESSE Nesbitt [address] / [place] [address] Discharge References/Attachments: Discharge References/Attachments None documented in [...] Center 10/11/2022 10:00 AM True Juarez MD [facility] URO [facility] 10/20/2022 9:30 AM Thad Jimenez MD [facility] HEM ONC [facility] 10/20/2022 10:45 AM LABORATORY, TECH [facility] INF 3K [facility] 11/10/2022 8:20 AM Sameer Rudolph MD [facility] You have a hospital follow up appointment scheduled with your primary care provider's office, Monday October 10, 2022 1:00 with Christal Chavis APRN, colleague of JESSE Saldaña Primary Care Provider: JESSE Nesbitt [phone] Your Inpatient Doctor(s) at [facility]: DO Diego Nuno MD Your Primary Care Provider: JESSE Nesbitt [address] / [place] [address] For questions regarding this document or issues relating to this hospitalization on the Medical Service, please contact your inpatient physician through the [facility] Milk Processing Worker . Issues afterhours and on weekends will be handled by the Hospitalist staff on-call. General Instructions [facility] Vascular and Interventional Radiology Biopsy Discharge Instructions [...] be reported to you by your primary director medicare sales or the clinician who ordered the biopsy. Please do not call us for results as we will not have them. If you have not been contacted by your clinician within 5 business days you should call that officefor further information. When to call the Interventional Radiology Department: Please call with any questions or concerns. If it is during regular office hours, please call [phone]. If it is after regular office hours, or on weekends or holidays, please call [phone] and ask to speak to the Wood Handler functional architect for Interventional Radiology. HEART FAILURE ACTION PLAN [...] let your primary care office (specify if qa lead or other group should manage) know if you have to change your diuretic dose. If you ever get into the situation where these diuretic changes are not enough, then your primary care provider may make further adjustments or even refer you to [facility]'s IV diuresis clinic. Your outside doctors can [...] They can send you to see a cafe aide (a person trained to help you with [...] Center 10/11/2022 10:00 AM True Juarez MD [facility] URO [facility] 10/20/2022 9:30 AM Thad Jimenez MD [facility] HEM ONC [facility] 10/20/2022 10:45 AM LABORATORY, TECH [facility] INF 3K [facility] 11/10/2022 8:20 AM Sameer Rudolph MD [facility] Cardio [facility] You have a hospital follow up appointment scheduled with your primary care provider's office, Monday October 10, 2022 1:00 with Christal Chavis APRN, colleague of JESSE Saldaña Primary Care Provider: JESSE Nesbitt [phone] Your Inpatient Doctor(s) at [facility]: DO Diego Nuno MD Your Primary Care Provider: JESSE Nesbitt [address] / [place] [address] For questions regarding this document or issues relating to this hospitalization on the Medical Service, please contact your inpatient physician through the [facility] Milk Processing Worker . Issues afterhours and on weekends will [...] of this encounter Progress Notes * Peter Herrera, RN - 10/03/2022 3:02 PM EDT Pt is discharging home independently. Friend to provide transportation in a private vehicle. He hasall of his belongings at the time of his discharge including locked medications that he brought from home. IV removed. He verbalized understanding of his DC instructions including f/u appts with [facility] medical provider and his medication regimen. He verbalized understanding of s/s that might require medical attention. * Peter Herrera RN - 10/03/2022 2:56 PM EDT All belongings returned to patient at the time of discharge. * Sulaiman Medley DO - 10/03/2022 2:04 PM EDT HOSPITAL MEDICINE ATTENDING DAY OF DISCHARGE NOTE Patient Huber Mosher 1955 [id number] Physician Sulaiman Medley DO Pager: [phone] Hospitalist Encounter Date October 03, 2022 PCP JESSE Nesbitt PCP phone [phone] Discharge diagnosis Active Hospital Problems Diagnosis WALTER [...] spent >30 minutes (Day of Discharge Code 41474) involved in the final examination of the patient, discussion of the hospital stay, instructions for continuing care to all relevant caregivers, and preparation of discharge records, prescriptions and referral forms. Plans Discharge to home Follow-up scheduled with Future Appointments Date Time Provider Department Center 10/11/2022 10:00 AM True Juarez MD [facility] URO [facility] 10/20/2022 9:30 AM Thad Jimenez MD [facility] HEM ONC [facility] 10/20/2022 10:45 AM LABORATORY, TECH [facility] INF 3K [facility] 11/10/2022 8:20 AM Sameer Rudolph MD [facility] Please see the Discharge Summary for complete details of any medication changes and additional plans. Sulaiman Medley DO Pager: [phone] October 03, 2022 10:19 PM * Reinaldo Barron MD - 10/03/2022 7:30 AM EDT Hypertension-Nephrology Inpatient Follow-up Huber Mosher [id number] 1955 ID: 67 y.o. old male seen [...] moderate tricuspid regurgitation. Flow cytometry negative. Summary: Hbuer Mosher is 67 y.o. yo male requiring [...] able. This case was discussed with staff new accounts clerk Dr. Mock and the patient's primary team. Please contact me at phone: [phone] or pager: [phone] with any questions. Reinaldo Barron MD Nephrology [...] - 10/02/2022 10:09 AM EDT MEDICINE PAGER [phone] - [facility] Daily Progress Note Page [phone] to reach [...] 5+ muscle strength in bilateral biceps, triceps, grove superintendent strength, knee extensors, knee flexors. Neuro: AOx4, [...] who have questions please contact the health small animal caretaker that requested your imaging first. Electronically signed by: Ariana Preston MD, [facility] ([phone]), at 2022 10:[address] Chest Abdomen Pelvis wo Contrast (Exam End: [...] who have questions please contact the health small animal caretaker that requested your imaging first. Electronically signed by: Jhony Bond MD, [facility] ([phone]), at 09/29/2022 5:43 AM No results found for this visit on [...] Checklist: Last Family Communication: TBD Discharge Location: [facility] Basic Mobility Raw Score: 24 PT: OT: Code status Attempt Cardiopulmonary Resuscitation - Inpatient PCP JESSE Nesbitt [phone] Active Hospital Problems Diagnosis WALTER (acute kidney [...] of two midnights or is on the [facility] inpatient only procedure list (status C) due to: acute kidney injury necessitating close monitoring of fluid balance such as intravenous fluids and/or titration of medication to achieve optimal effect and minimize the chance of immediate or severe side effects Sulaiman Medley DO Pager [phone] 10/02/2022 3:22 PM * Reinaldo Barron MD - 10/02/2022 7:42 AM EDT Hypertension-Nephrology Inpatient Follow-up Huber Kennedy Nomi [id number] 1955 ID: 67 y.o. old male seen [...] able. This case was discussed with staff new accounts clerk Dr. Westbrook and the patient's primary team. Please contact me at phone: [phone] or pager: [phone] with any questions. Reinaldo Barron MD Nephrology [...] 7:31 AM EDT Hypertension-Nephrology Inpatient Follow-up Huber Kennedy Génesiskhangclaritza [id number] 1955 ID: 67 y.o. old male seen [...] able. This case was discussed with staff new accounts clerk Dr. Westbrook and the patient's primary team. Please contact me at phone: [phone] or pager: [phone] with any questions. Reinaldo Barron MD Nephrology [...] - 10/01/2022 7:19 AM EDT MEDICINE PAGER [phone] - [facility] Daily Progress Note Page [phone] to reach a provider 26/09 Admit Date: [...] 5+ muscle strength in bilateral biceps, triceps, grove superintendent strength, knee extensors, knee flexors. Neuro: AOx4, [...] who have questions please contact the health small animal caretaker that requested your imaging first. Electronically signed by: Ariana Preston MD, [facility] ([phone]), at 2022 10:[address] Chest Abdomen Pelvis wo Contrast (Exam End: [...] who have questions please contact the health small animal caretaker that requested your imaging first. Electronically signed by: Jhony Bond MD, [facility] ([phone]), at 09/29/2022 5:43 AM No results found for this visit on [...] Cardiopulmonary Resuscitation - Inpatient PCP JESSE Nesbitt [phone] Active Hospital Problems Diagnosis WALTER (acute kidney [...] of two midnights or is on the CMS inpatient only procedure list (status C) due to: monitoring of fluid status given an inability to regulate fluid balance and the need for administration or restriction of fluids Sulaiman Medley DO Pager [phone] 10/01/2022 4:08 PM * Marisela Roca MD - 09/30/2022 7:58 AM EDT MEDICINE PAGER [phone] - [facility] Daily Progress Note Page [phone] to reach [...] 5+ muscle strength in bilateral biceps, triceps, grove superintendent strength, knee extensors, knee flexors. Neuro: AOx4, [...] who have questions please contact the health small animal caretaker that requested your imaging first. Electronically signed by: Ariana Preston MD, [facility] ([phone]), at 2022 10:[address] Chest Abdomen Pelvis wo Contrast (Exam End: [...] who have questions please contact the health small animal caretaker that requested your imaging first. Electronically signed by: Jhony Bond MD, [facility] ([phone]), at 09/29/2022 5:43 AM No results found for this visit on [...] Cardiopulmonary Resuscitation - Inpatient PCP JESSE Nesbitt [phone] Active Hospital Problems Diagnosis WALTER (acute kidney [...] minimumof two midnights or is on the [facility] inpatient only procedure list (status C) [...] of : 1955 AGE: 67 y.o. Address: [address] [address] (home) Mobile: Telephone Information: Referring Provider: Victoria [...] Light Chains, Serum Result Value Ref Range Eagle Free Light Chain 16.76 (H) 0.72 - 2.75 mg/dL Lambda Free Light Chain 16.41 (H) 0.57 - 2.15 mg/dL Eagle Lambda FLC Ratio 1.0213 0.4000 - 2.5800 [...] of : 1955 AGE: 67 y.o. Address: [address] [address] (home) Mobile: Telephone Information: Referring Provider: Victoria [...] - 09/29/2022 1:30 PM EDT MEDICINE PAGER [phone] - [facility] Daily Progress Note Page [phone] to reach [...] 5+ muscle strength in bilateral biceps, triceps, grove superintendent strength, knee extensors, knee flexors. Neuro: AOx4, [...] who have questions please contact the health small animal caretaker that requested your imaging first. Electronically signed by: Ariana Preston MD, [facility] ([phone]), at 2022 10:[address] Chest Abdomen Pelvis wo Contrast (Exam End: [...] who have questions please contact the health small animal caretaker that requested your imaging first. Electronically signed by: Jhony Bond MD, [facility] ([phone]), at 09/29/2022 5:43 AM CONSULTANTS: IP CONSULT TO UROLOGY IP ADMISSION [...] - F/u UPEP - F/u light chains-elevated Eagle and lambda free light chains - F/u [...] Cardiopulmonary Resuscitation - Inpatient PCP JESSE Nesbitt [phone] Active Hospital Problems Diagnosis WALTER (acute kidney [...] minimumof two midnights or is on the CMS inpatient only procedure list (status C) due [...] Yes Allergies reviewed: Yes Source Note - Sonal Menard PA - 09/29/2022 12:13 PM [...] by Bebe Hatfield MD at [facility] MAIN OR PRO ARTHRD ANT INTERDY CERVCL BELW C2 EA ADDL NTRSPC Bilateral 03/17/2022 ARTHRODESIS ANT INTERBDY CERVCL BELOW C2 EA ADDL INTRSPACE (WRVU 6.5) performed by Bebe Hatfield MD at [facility] MAIN OR PRO ARTHRODESIS, ANT INTERBODY,DECOMPRESSION; CERVICAL BELOW C2 Bilateral 03/17/2022 ARTHRODESIS, ANT INTERBODY,DECOMPRESSION; CERVICAL BELOW C2 (WRVU 25) performed by Bebe Hatfield MD at [facility] MAIN OR PRO INSERT BIOMCHN DEV INTERVERTEBRAL DSC SPC W/ARTHRD Bilateral 03/17/2022 INSERTION INTERBODY BIOMECH DEV TO INTERVEBRAL DISC SPACE, EA INTERSPACE (WRVU 4.25) performed by Bebe Hatfield MD at [facility] MAIN OR US GUIDED BIOPSY PROSTATE WITH URONAV FUSION 12/20/2021 US Guided Biopsy Prostate with Uronav Fusion 12/20/2021 [facility] RAD ULTRASOUND Social History and Habits: Social [...] in IR the day of procedure) 09/29/2022 NYA CrespoC * Sonal Menard PA - 09/29/2022 12:13 [...] by Bebe Hatfield MD at [facility] MAIN OR PRO ARTHRD ANT INTERDY CERVCL BELW C2 EA ADDL NTRSPC Bilateral 03/17/2022 ARTHRODESIS ANT INTERBDY CERVCL BELOW C2 EA ADDL INTRSPACE (WRVU 6.5) performed by Bebe Hatfield MD at [facility] MAIN OR PRO ARTHRODESIS, ANT INTERBODY,DECOMPRESSION; CERVICAL BELOW C2 Bilateral 03/17/2022 ARTHRODESIS, ANT INTERBODY,DECOMPRESSION; CERVICAL BELOW C2 (WRVU 25) performed by Bebe Hatfield MD at [facility] MAIN OR PRO INSERT BIOMCHN DEV INTERVERTEBRAL DSC SPC W/ARTHRD Bilateral 03/17/2022 INSERTION INTERBODY BIOMECH DEV TO INTERVEBRAL DISC SPACE, EA INTERSPACE (WRVU 4.25) performed by Bebe Hatfield MD at [facility] MAIN OR US GUIDED BIOPSY PROSTATE WITH URONAV FUSION 12/20/2021 US Guided Biopsy Prostate with Uronav Fusion 12/20/2021 [facility] RAD ULTRASOUND Social History and Habits: Social [...] Kingston MD - 2022 11:58 PM EDT [facility] Medicine Admission H&P Patient Name: HUBER [...] Today he went for CT scan at [place] which showed hydronephrosis and diffuse retroperitoneal lymphadenopathy. [...] by Bebe Hatfield MD at [facility] MAIN OR PRO ARTHRD ANT INTERDY CERVCL BELW C2 EA ADDL NTRSPC Bilateral 03/17/2022 ARTHRODESIS ANT INTERBDY CERVCL BELOW C2 EA ADDL INTRSPACE (WRVU 6.5) performed by Bebe Hatfield MD at [facility] MAIN OR PRO ARTHRODESIS, ANT INTERBODY,DECOMPRESSION; CERVICAL BELOW C2 Bilateral 03/17/2022 ARTHRODESIS, ANT INTERBODY,DECOMPRESSION; CERVICAL BELOW C2 (WRVU 25) performed by Bebe Hatfield MD at [facility] MAIN OR PRO INSERT BIOMCHN DEV INTERVERTEBRAL DSC SPC W/ARTHRD Bilateral 03/17/2022 INSERTION INTERBODY BIOMECH DEV TO INTERVEBRAL DISC SPACE, EA INTERSPACE (WRVU 4.25) performed by Bebe Hatfield MD at [facility] MAIN OR US GUIDED BIOPSY PROSTATE WITH URONAV FUSION 12/20/2021 US Guided Biopsy Prostate with Uronav Fusion 12/20/2021 [facility] RAD ULTRASOUND Social History: Social History Socioeconomic [...] 5+ muscle strength in bilateral biceps, triceps, grove superintendent strength, knee extensors, knee flexors. Neuro: AOx4, remainder grossly intact LABS: Recent Labs 09/28/22 1710 WBC 8.7 HGB 9.6* HCT 29.2* PLATELET 507* Recent Labs 09/28/22 1710 NA 130* K 5.2* CL 101 CO2 16* BUN 74* CREATININE 5.80* Recent Labs 09/28/22 171 CALCIUM 9.0 PHOS 6.0* No results for input(s): PT, PTT, FIBRINOGEN, DDIMER in the last 168 hours. Invalid input(s): THROMBIN TIME No results for input(s): INR in the last 168 hours. No results for input(s): AST, ALT, ALKPHOS, BILITOT, BILIDIR in the last 168 hours. No results for input(s): CK, TROPONINT in the last 168 hours. Recent Labs 09/28/22 171 URICACID 11.3* No results for input(s): TSH [...] who have questions please contact the health small animal caretaker that requested your imaging first. Electronically signed by: Ariana Preston MD, [facility] ([phone]), at 2022 10:09 PM ASSESSMENT and PLAN: Huber Mosher is a 67 [...] unfortunately do not have imaging available form [facility]. Given his already poor renal function want [...] to be full code Porter Kingston MD [facility] Internal Medicine PGY-2 Associated attestation - Daniel [...] and reviewed all labs and studies personally. bilingual call center representative hematology was made aware, agreed with rasburicase and more IVF hydration. Will continue hydration, f/u electrolytes, phos, and uric. Obtain actual CT from [facility] for second read to compare with new CT. Pt was placed on oxygen 1-2 L overnight, no shortness of breath. Was on NS 50 cc/hr, currently avya705 cc/hr, will need reassessment. In addition, I certify that I am a [facility] credentialed attending provider with admitting privileges and that the patient meets or has met medical necessity to require an inpatient IPI level of care meeting a minimum of two midnights or is on the [facility] inpatient only procedure list (status C) [...] without evidence of complication. Resident/Fellow: None Attending: Dr. Bridger Charles performed this procedure. documented in this encounter ED Notes * Rodney Walker MD - 2022 9:45 PM EDT ED Attending Brief Note HPI: Huber Mosher is a 67 y.o. male who presents to the Emergency Department in transfer from [facility] with imaging (found in chart attachment), consistent [...] discussed with the patient. Rodney Walker MD 09/28/22 [id number] * Maged Conrad MD - 2022 8:30 [...] Signed out to: Maged Quarles MD Resident 09/28/222227 Associated attestation - Rodney Walker MD - [...] y.o. who I was called about from [employer] The patient will be evaluated in the [...] letter. Ginette Jo RN, CM Pager #: [phone] * Care Management - Ginette Jo RN [...] Lymph Node (Chest/Abd/Pelvis) 09/30/2022 Vasile Sparks MD [facility] RAD CT SCAN HAND SURGERY Left 1997 Left thumb repair surgery INGUINAL HERNIA REPAIR 1955 as an infant PRO ALLOGRAFT FOR SPINE SURGERY ONLY MORSELIZED Bilateral 03/17/2022 ALLOGRAFT FOR SPINE SURGERY ONLY; MORSELIZED (WRVU *) performed by Bebe Hatfield MD at [facility] MAIN OR PRO ARTHRD ANT INTERDY CERVCL BELW C2 EA ADDL NTRSPC Bilateral 03/17/2022 ARTHRODESIS ANT INTERBDY CERVCL BELOW C2 EA ADDL INTRSPACE (WRVU 6.5) performed by Bebe Hatfield MD at [facility] MAIN OR PRO ARTHRODESIS, ANT INTERBODY,DECOMPRESSION; CERVICAL BELOW C2 Bilateral 03/17/2022 ARTHRODESIS, ANT INTERBODY,DECOMPRESSION; CERVICAL BELOW C2 (WRVU 25) performed by Bebe Hatfield MD at [facility] MAIN OR PRO INSERT BIOMCHN DEV INTERVERTEBRAL DSC SPC W/ARTHRD Bilateral 03/17/2022 INSERTION INTERBODY BIOMECH DEV TO INTERVEBRAL DISC SPACE, EA INTERSPACE (WRVU 4.25) performed by Bebe Hatfield MD at [facility] MAIN OR US GUIDED BIOPSY PROSTATE WITH URONAV FUSION 12/20/2021 US Guided Biopsy Prostate with Uronav Fusion 12/20/2021 [facility] RAD ULTRASOUND Physical Exam: Temp: [36 ??C [...] Component Value Units Date/Time Urine culture Urine [[id number]] Collected: 09/29/22 2245 Lab Status: Final result [...] GOAL OUTCOME EVALUATION: * Consult Note - Min, Sidney Uriarte MD - 09/30/2022 10:38 PM EDT Images from the original note were not included. [facility] [place] [address] [place] [address] INPATIENT CARDIOLOGY CONSULT NOTE Date of Consultation: 09/30/2022 Admit Date: 2022 Place of Service: [facility] Responsible Attending: Daphnie Zamora MD Hospital Day [...] Lymph Node (Chest/Abd/Pelvis) 09/30/2022 Vasile Sparks MD [facility] RAD CT SCAN HAND SURGERY Left 1997 Left thumb repair surgery INGUINAL HERNIA REPAIR 1955 as an PRO ALLOGRAFT FOR SPINE SURGERY ONLY MORSELIZED Bilateral 03/17/2022 ALLOGRAFT FOR SPINE SURGERY ONLY; MORSELIZED (WRVU *) performed by Bebe Hatfield MD at [facility] MAIN OR PRO ARTHRD ANT INTERDY CERVCL BELW C2 EA ADDL NTRSPC Bilateral 03/17/2022 ARTHRODESIS ANT INTERBDY CERVCL BELOW C2 EA ADDL INTRSPACE (WRVU 6.5) performed by Bebe Hatfield MD at [facility] MAIN OR PRO ARTHRODESIS, ANT INTERBODY,DECOMPRESSION; CERVICAL BELOW C2 Bilateral 03/17/2022 ARTHRODESIS, ANT INTERBODY,DECOMPRESSION; CERVICAL BELOW C2 (WRVU 25) performed by Bebe Hatfield MD at [facility] MAIN OR PRO INSERT BIOMCHN DEV INTERVERTEBRAL DSC SPC W/ARTHRD Bilateral 03/17/2022 INSERTION INTERBODY BIOMECH DEV TO INTERVEBRAL DISC SPACE, EA INTERSPACE (WRVU 4.25) performed by Bebe Hatfield MD at [facility] MAIN OR US GUIDED BIOPSY PROSTATE WITH URONAV FUSION 12/20/2021 US Guided Biopsy Prostate with Uronav Fusion 12/20/2021 [facility] RAD ULTRASOUND Allergies: Allergies Allergen Reactions Amoxicillin [...] Specialties Unit Level 2 Wing C at [facility] Admission (Discharged) from 03/17/2022 in Med Surg Unit at [facility] Weight 87.8 kg (193 lb 8 oz) [...] QTC Calculated (Bezet) 461 ms Calculated P [place] 48 degrees Calculated R [place] 56 degrees Calculated T [place] -144 degrees INTERPRETATION Normal sinus rhythm ST [...] PSA w/ neative biopsy who presented to [facility] with diffuse lympadema and was subsequently found [...] better optimized. -He will need f/u in [place] for cardiology as an outpatient with Dr. Rudolph or Dr. Rodriguez (both cardiologists in the area). Case to be staffed with cardiology consult attending, recommendations not final until signed by attending. x Consult service will continue to follow patient. Recommendations are above, please page if further consultation required. Sameer Lenz [facility] Nurse [phone] Cardiology Attending Attestation/Addendum: Please see Sameer Lenz [...] be happy to revisit. Sidney Maldonado MD, [facility] Staff Product Support Specialist * Plan of Care - Veronica Meyers RN - 09/30/2022 4:24 PM EDT OUTCOME [...] by Bebe Hatfield MD at [facility] MAIN OR PRO ARTHRD ANT INTERDY CERVCL BELW C2 EA ADDL NTRSPC Bilateral 03/17/2022 ARTHRODESIS ANT INTERBDY CERVCL BELOW C2 EA ADDL INTRSPACE (WRVU 6.5) performed by Bebe Hatfield MD at [facility] MAIN OR PRO ARTHRODESIS, ANT INTERBODY,DECOMPRESSION; CERVICAL BELOW C2 Bilateral 03/17/2022 ARTHRODESIS, ANT INTERBODY,DECOMPRESSION; CERVICAL BELOW C2 (WRVU 25) performed by Bebe Hatfield MD at [facility] MAIN OR PRO INSERT BIOMCHN DEV INTERVERTEBRAL DSC SPC W/ARTHRD Bilateral 03/17/2022 INSERTION INTERBODY BIOMECH DEV TO INTERVEBRAL DISC SPACE, EA INTERSPACE (WRVU 4.25) performed by Bebe Hatfield MD at [facility] MAIN OR US GUIDED BIOPSY PROSTATE WITH URONAV FUSION 12/20/2021 US Guided Biopsy Prostate with Uronav Fusion 12/20/2021 [facility] RAD ULTRASOUND Social History: Social History Socioeconomic [...] not displayed. Component Value Date/Time SPGRAVITYUA 1.012 2022 1836 PHUADIP 5.5 2022 1836 PROTEINUADIP Negative 2022 1836 GLUCOSEU Negative 2022 1836 KETONESUA Negative 2022 1836 UROBILIUADIP Normal 2022 1836 BLOODUADIP Negative 2022 1836 NITRATEUA Negative 2022 1836 LEUKOESTERUA Negative 2022 1836 BILIRUBINUA Negative 2022 1836 Microbiology: None Imaging: Assessment: Huber oMsher is a 67 y.o. with a history [...] Torres MD - 09/29/2022 10:48 PM EDT [facility] Operative Note Patient Name: Huber Mosher : [id number] MR#: [id number] Case Date: 09/29/2022 Surgeon: Surgeon(s) and Role: [...] 24 cm Tria ureteral stents Plan: - [place] until Cr down trends - stent plan [...] Plan of Care Review 09/29/20221835 by Shruthi León RN Outcome: Ongoing (Interventions Implemented as Appropriate) 09/29/20221832 by Shruthi León RN Outcome: Ongoing (Interventions Implemented as Appropriate) * Consult Note - Reinaldo Barron MD - 09/29/2022 12:59 PM EDT Hypertension-Nephrology Consultation Huber Mosher [id number] ID: Huber Mosher is 67 y.o. [...] now. This case was discussed with staff new accounts clerk Dr. Westbrook and the patient's primary team. Please contact me at phone: [phone] or pager: [phone] with any questions. Reinaldo Barron MD Nephrology & Hypertension Fellow Associated attestation - Alivn West[place] MD - 09/29/2022 5:08 PM EDT [...] Jr., MD - 09/29/2022 12:52 PM EDT [facility] HEMAT[facility]Y CONSULT Reason for consult: We are [...] spine, and ultimately a CT scan at [place] (outpatient).This showed b/l hydronephrosis and diffuse lymphadenopathy. [...] HPI Social history: He lives independently in [place]. 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 He has a large network of [...] -- -- -- -- 180.3 cm (5' 11) 87.8 kg (193 lb 8 oz) 09/28/22 2329 118/70 36.5 ??C (97.7 ??F) Oral -- 18 100 % -- -- 09/28/22 2200 128/79 -- -- 80 16 100 % -- -- 09/28/22 1606 123/71 36.5 ??C (97.7 ??F) Temporal 83 18 100 % 180.3 cm (5' 11) 88 kg (194 lb) Body surface area [...] Negative mcL Appearance UA Clear Clear Spec [place] UA 1.012 1.005 - 1.030 Color UA [...] Darlene Ramires MD, MS Hematology/Medical Oncology Fellow Courtroom Deputyelectrical repairer Page # [phone] 09/29/22, 12:52 PM Inpatient Heme Consult Staff [...] surrogate would be surrogate decision maker per [place] decision making law. (Only good for 180 days) [address] Any patient receiving care in [place] must abide by [place] law. The hierarchy for surrogate decision making [...] (i) The agent with financial power of senior attorney or a conservator appointed in accordance [...] confirmed as: Physical address [address] [place] [id number] Mailing address [address] [place] [phone] Social & Family Supports: All names listed below confirmed with patient as current and correct Extended Emergency Contact Information Primary Emergency Contact: SANTA CARCAMO Address: [place] [address] Relation: Friend Secondary Emergency Contact: Ct Mosher [...] Yes ; Prescription Coverage: Yes Preferred Pharmacy: [facility] [address] [place] [address] [place] [phone] [place] Status: Patient is a : No Primary Care Provider confirmed: JESSE Nesbitt [phone] Patient/Caregiver Goals of Treatment: Return home Potential [...] with transition of care planning. Angel[facility]donado [facility] [phone] * Consult Note - Santa Card MD [...] by Bebe Hatfield MD at [facility] MAIN OR PRO ARTHRD ANT INTERDY CERVCL BELW C2 EA ADDL NTRSPC Bilateral 03/17/2022 ARTHRODESIS ANT INTERBDY CERVCL BELOW C2 EA ADDL INTRSPACE (WRVU 6.5) performed by Bebe Hatfield MD at [facility] MAIN OR PRO ARTHRODESIS, ANT INTERBODY,DECOMPRESSION; CERVICAL BELOW C2 Bilateral 03/17/2022 ARTHRODESIS, ANT INTERBODY,DECOMPRESSION; CERVICAL BELOW C2 (WRVU 25) performed by Bebe Hatfield MD at [facility] MAIN OR PRO INSERT BIOMCHN DEV INTERVERTEBRAL DSC SPC W/ARTHRD Bilateral 03/17/2022 INSERTION INTERBODY BIOMECH DEV TO INTERVEBRAL DISC SPACE, EA INTERSPACE (WRVU 4.25) performed by Bebe Hatfield MD at [facility] MAIN OR US GUIDED BIOPSY PROSTATE WITH URONAV FUSION 12/20/2021 US Guided Biopsy Prostate with Uronav Fusion 12/20/2021 [facility] RAD ULTRASOUND Social History: Social History Socioeconomic [...] PHUADIP 5.5 2022 1836 PROTEINUADIP Negative 2022 183 GLUCOSEU Negative 2022 183 KETONESUA Negative 2022 183 UROBILIUADIP Normal 2022 183 BLOODUADIP Negative 2022 1836 NITRATEUA Negative 2022 183 LEUKOESTERUA Negative 2022 183 BILIRUBINUA Negative 2022 183 Microbiology: None Imaging: Assessment: Huber Mosher is [...] D case - Biopsy RP node Vasile Castañeda * Plan of Care - Mariaelena Rain [...] by Bebe Hatfield MD at [facility] MAIN OR PRO ARTHRD ANT INTERDY CERVCL BELW C2 EA ADDL NTRSPC Bilateral 03/17/2022 ARTHRODESIS ANT INTERBDY CERVCL BELOW C2 EA ADDL INTRSPACE (WRVU 6.5) performed by Bebe Hatfield MD at [facility] MAIN OR PRO ARTHRODESIS, ANT INTERBODY,DECOMPRESSION; CERVICAL BELOW C2 Bilateral 03/17/2022 ARTHRODESIS, ANT INTERBODY,DECOMPRESSION; CERVICAL BELOW C2 (WRVU 25) performed by Bebe Hatfield MD at [facility] MAIN OR PRO INSERT BIOMCHN DEV INTERVERTEBRAL DSC SPC W/ARTHRD Bilateral 03/17/2022 INSERTION INTERBODY BIOMECH DEV TO INTERVEBRAL DISC SPACE, EA INTERSPACE (WRVU 4.25) performed by Bebe Hatfield MD at [facility] MAIN OR US GUIDED BIOPSY PROSTATE WITH URONAV FUSION 12/20/2021 US Guided Biopsy Prostate with Uronav Fusion 12/20/2021 [facility] RAD ULTRASOUND Social History: Social History Socioeconomic [...] PHUADIP 5.5 2022 1836 PROTEINUADIP Negative 2022 183 GLUCOSEU Negative 2022 183 KETONESUA Negative 2022 183 UROBILIUADIP Normal 2022 1836 BLOODUADIP Negative 2022 1836 NITRATEUA Negative 2022 1836 LEUKOESTERUA Negative 2022 1836 BILIRUBINUA Negative 2022 1836 Microbiology: None Imaging: No CT report or [...] PM EDT Office Visit Hematology/Oncology at [address] [phone] Fiordaliza Downing APRN [facility] [place] [address] 11/10/2023 9:00 AM EDT Appointment [place] [address] Thomas Curtis MD [facility] DR HEMATOLOGY [place] [address] 11/21/2023 11:00 AM EDT Infusion Hematology Oncology at [address] [phone] 12/05/2023 1:30 PM EDT Office Visit Hematology/Oncology at [address] [phone] Thomas Curtis MD [facility] HEMATOLOGY [place] [address] Fiordaliza Downing APRN [facility] [place] [address] 12/26/2023 9:00 AM EDT Appointment [place] [address] Thomas Curtis MD [facility] HEMATOLOGY [place] [address] 02/09/2024 8:00 AM EST Appointment Nuclear Medicine at [place] [phone] Thomas Curtis MD [facility] HEMATOLOGY [place] [address] 03/18/2024 3:00 PM EST Office Visit Cardiology at [address] [phone] Sameer Rudolph MD [facility] [place] [address] 03/22/2024 9:00 AM EST Appointment Nuclear Medicine at [place] [phone] Thomas Curtis MD [facility] HEMATOLOGY [place] [address] 08/23/2024 Hospital Encounter Main Operating Room [place] [phone] True Juarez MD [facility] [place] [address] Scheduled Procedures Name Priority Associated Diagnoses Date/Ti [...] 10:45 PM EDT Cystoscopy, Insert Ureteral Stent (98059) 09/29/2022 9:31 PM EDT Bilateral ureteral obstruction [...] EDT LYME IGG & IGM ANTIBODY Routine 07/27/20 23 5:54 AM EDT IMMUNOGLOBULINS, QUANTITATIVE Routine 09/29/2022 [...] Glucose, POC 178 65 - 199 mg/dL [facility] Comment: Supplemental ranges: <140 mg/dL before meals <180 mg/dL all other times of the day Blood 10/03/2022 11:3 2 AM EDT 10/03/2022 11:32 AM EDT Sulaiman Medley DO POINT OF CARE TEST O RDERABLES Performing Organization Address [facility] Co de Phone Number [facility] [address] * Duplex Study for DVT, Bilat legs (10/03/2022 7:49 AM EDT) VB Text Report Department: Vascular Surgery Lab Patient: [id number] (HUBER MOSHER) CPT: 08677 Referring Physician: SULAIMAN MEDLEY ?? Phone: Indications: [...] Medley DO VASCULAR ORDERABLES Performing Organization Address City/[facility] Co de Phone Number [facility] * Phosphorus (10/03/2022 6:46 AM EDT) Phosphorus 2.6 2.5 - 4.5 mg/dL [facility] Blood 10/03/2022 6:46 AM EDT 10/03/2022 6:49 AM EDT Narrative Resulting Agency Comment Spec In Lab Sulaiman Medley DO CHEMISTRY ORDERABLES [facility] [place] [address] * (ABNORMAL) Basic Metabolic Panel (non-fasting) (10/03/2022 6:46 AM EDT) Glucose 138 65 - 199 mg/dL [facility] Comment:Diabetes: >=200 mg/d L plus symptoms Blood Urea Nitrogen 53(H) 10 - 20 mg/dL [facility] Creatinine 2.52(H) 0.80 - 1.50 mg/dL [facility] Sodium 134(L) 135 - 145 mmol/L [facility] Potassium 4.2 3.5 - 5.0 mmol/L [facility] Comment: Please note: ??Patients with WBC >100,000 may have falsely elevated Potassium levels. ??For accurate Potassium quantification in these patients send serum separator tube (gold top) for subsequent determinations. ??Contact the Clinical Chemistry Laboratory if there are any questions. Chloride 103 98 - 107 mmol/L [facility] Carbon Dioxide 21(L) 22 - 31 mmol/L [facility] Anion Gap 10 5 - 15 mmol/L [facility] Calcium 8.7 8.5 - 10.5 mg/dL [facility] Est Glomerular Filtration Rate 27(L) >=60 mL/min/1. 73 m?? [facility] Comment: This patient's estimated GFR was [...] Medley DO CHEMISTRY ORDERABLES Performing Organization Address [facility] Co de Phone Number [facility] [address] * (ABNORMAL) Magnesium (10/03/2022 6:46 AM EDT) Magnesium 0.67(L) 0.69 - 1.07 mmol/L [facility] Blood 10/03/2022 6:46 AM EDT 10/03/2022 6:49 AM EDT Narrative Resulting Agency Comment Spec In Lab Daphnie Zamora MD CHEMISTRY ORDERABLES Performing Organization Address [facility] Co de Phone Number [facility] [address] * POCT Glucose (10/03/2022 6:39 AM EDT) Glucose, POC 161 65 - 199 mg/dL [facility] Comment: Supplemental ranges: <140 mg/dL before meals <180 mg/dL all other times of the day Blood 10/03/2022 6:39 AM EDT 10/03/2022 6:39 AM EDT Sulaiman Medley DO POINT OF CARE TEST O RDERABLES Performing Organization Address [facility] Co de Phone Number [facility] [address] * POCT Glucose (10/02/2022 4:44 PM EDT) Glucose, POC 158 65 - 199 mg/dL [facility] Comment: Supplemental ranges: <140 mg/dL before meals <180 mg/dL all other times of the day Blood 10/02/2022 4:44 PM EDT 10/02/2022 4:44 PM EDT Sulaiman Medley DO POINT OF CARE TEST O RDERABLES Performing Organization Address [facility] Co de Phone Number [facility] [address] * POCT Glucose (10/02/2022 11:35 AM EDT) Glucose, POC 176 65 - 199 mg/dL [facility] Comment: Supplemental ranges: <140 mg/dL before meals <180 mg/dL all other times of the day Blood 10/02/2022 11:3 5 AM EDT 10/02/2022 11:35 AM EDT Sulaiman Medley DO POINT OF CARE TEST O RDERABLES Performing Organization Address [facility] Co de Phone Number [facility] [address] * POCT Glucose (10/02/2022 6:58 AM EDT) Glucose, POC 155 65 - 199 mg/dL [facility] Comment: Supplemental ranges: <140 mg/dL before meals <180 mg/dL all other times of the day Blood 10/02/2022 6:58 AM EDT 10/02/2022 6:58 AM EDT Sulaiman Medley DO POINT OF CARE TEST O RDERABLES Performing Organization Address [facility] Co de Phone Number [facility] [address] * Phosphorus (10/02/2022 6:28 AM EDT) Phosphorus 3.1 2.5 - 4.5 mg/dL [facility] Blood 10/02/2022 6:28 AM EDT 10/02/2022 6:34 AM EDT Narrative Resulting Agency Comment Spec In Lab Sulaiman Medley DO CHEMISTRY ORDERABLES Performing Organization Address [facility] Co de Phone Number [facility] [address] * (ABNORMAL) Basic Metabolic Panel (non-fasting) (10/02/2022 6:28 AM EDT) Glucose 148 65 - 199 mg/dL [facility] Comment:Diabetes: >=200 mg/d L plus symptoms Blood Urea Nitrogen 66(H) 10 - 20 mg/dL [facility] Creatinine 3.15(H) 0.80 - 1.50 mg/dL [facility] Comment:result rechecked-EWR Sodium 136 135 - 145 mmol/L [facility] Potassium 4.9 3.5 - 5.0 mmol/L [facility] Comment: Please note: ??Patients with WBC >100,000 may have falsely elevated Potassium levels. ??For accurate Potassium quantification in these patients send serum separator tube (gold top) for subsequent determinations. ??Contact the Clinical Chemistry Laboratory if there are any questions. Chloride 104 98 - 107 mmol/L [facility] Carbon Dioxide 19(L) 22 - 31 mmol/L [facility] Anion Gap 13 5 - 15 mmol/L [facility] Calcium 9.0 8.5 - 10.5 mg/dL [facility] Est Glomerular Filtration Rate 21(L) >=60 mL/min/1. 73 m?? [facility] Comment: This patient's estimated GFR was [...] In Lab Sulaiman Medley DO CHEMISTRY ORDERABLES [facility] [address] * Magnesium (10/02/2022 6:28 AM EDT) Magnesium 0.73 0.69 - 1.07 mmol/L [facility] Blood 10/02/2022 6:28 AM EDT 10/02/2022 6:34 AM EDT Narrative Resulting Agency Comment Spec In Lab Daphnie Zamora MD CHEMISTRY ORDERABLES Performing Organization Address [facility] Co de Phone Number [facility] [address] * POCT Glucose (10/01/2022 8:30 PM EDT) Glucose, POC 159 65 - 199 mg/dL [facility] Comment: Supplemental ranges: <140 mg/dL before meals <180 mg/dL all other times of the day Blood 10/01/2022 8:30 PM EDT 10/01/2022 8:30 PM EDT Sulaiman Medley DO POINT OF CARE TEST O RDERABLES Performing Organization Address [facility] Co de Phone Number [facility] [address] * (ABNORMAL) POCT Glucose (10/01/2022 4:10 PM EDT) Glucose, POC 238(H) 65 - 199 mg/dL [facility] Comment: Supplemental ranges: <140 mg/dL before meals <180 mg/dL all other times of the day Blood 10/01/2022 4:10 PM EDT 10/01/2022 4:10 PM EDT Sulaiman Medley DO POINT OF CARE TEST O RDERABLES Performing Organization Address [facility] Co de Phone Number [facility] [address] * POCT Glucose (10/01/2022 11:30 AM EDT) Glucose, POC 183 65 - 199 mg/dL [facility] Comment: Supplemental ranges: <140 mg/dL before meals <180 mg/dL all other times of the day Blood 10/01/2022 11:3 0 AM EDT 10/01/2022 11:30 AM EDT Sulaiman Medley DO POINT OF CARE TEST O RDERABLES Performing Organization Address City/[facility] [place] [place] [address] * Differential, Automated (10/01/2022 9:06 AM EDT) Neutrophil % 65.6 % [facility] Neutrophil Absolute 3.50 1.70 - 6.10 x10(3)/[facility] Lymph % 17.8 % [facility] Lymphocytes Abs 1.0 0.9 - 3.2 x10(3)/[facility] Monocyte % 11.4 % [facility] Monocyte Abs 0.6 0.3 - 0.9 x10(3)/[facility] Eos % 4.1 % [facility] Eosinophils Abs 0.2 0.0 - 0.4 x10(3)/[facility] Basophil % 0.9 % [facility] Baso Absolute 0.0 0.0 - 0.1 x10(3)/[facility] Immature Gran % 0.20 % [facility] Comment: Immature granulocytes(IG's)percentage and absolute count will include metamyelocytes, myelocytes, and promyelocytes. Blood smears from CBCs yielding IG's will be scanned manually for concordance. If this scan disagrees with the automated IG or if promyelocytes are noted, a manual differential will be performed. Immature Gran Absolute 0.01 0.00 - 0.04 x10(3)/[facility] Blood 10/01/2022 9:06 AM EDT 10/01/2022 9:23 AM EDT Narrative Resulting Agency Comment Spec In Lab Pardeep Torres MD HEMATOLOGY ORDERABLE S Performing Organization Address [facility] [place] [place] [address] * (ABNORMAL) Hemogram (10/01/2022 9:06 AM EDT) White Blood Cell 5.3 4.0 - 9.5 x10(3)/mc L [facility] Red Blood Cell 3.39(L) 4.58 - 5.54 x10(6)/mc L [facility] Hemoglobin 9.9(L) 13.7 - 16.5 g/dL [facility] Hematocrit 31.5(L) 40.5 - 48.5 % [facility] Mean Cell Volume 92.9 82.9 - 93.1 fL [facility] Mean Cell Hemoglobin 29.2 27.5 - 32.1 pg [facility] Mean Cell Hemoglobin Concentration 31.4(L) 32.0 - 35.7 g/dL [facility] Platelet 522(H) 145 - 357 x10(3)/mc L [facility] RDW Standard Deviation 52.6(H) 36.0 - 45.0 fL [facility] RDW coefficient of variation 15.4(H) 11.4 - 13.8 % [facility] Mean Platelet Volume 9.5 7.6 - 12.9 fL [facility] NRBC% auto 0.0 % [facility] NRBC Absolute 0.000 0.000 - 0.000 x10(3)/ L [facility] Blood 10/01/2022 9:06 AM EDT 10/01/2022 9:23 AM EDT Narrative Resulting Agency Comment Spec In Lab Pardeep Torres MD HEMATOLOGY ORDERABLE S [facility] [place] [address] * (ABNORMAL) Uric acid (10/01/2022 9:06 AM EDT) Uric Acid 3.4(L) 3.5 - 8.5 mg/dL [facility] Blood 10/01/2022 9:06 AM EDT 10/01/2022 9:23 AM EDT Narrative Resulting Agency Comment Spec In Lab Daphnie J Kehas MD CHEMISTRY ORDERABLES Performing Organization Address City/[facility]/ZIP Co de Phone Number [facility] [place] [address] * (ABNORMAL) Phosphorus (10/01/2022 9:06 AM EDT) Phosphorus 4.6(H) 2.5 - 4.5 mg/dL [facility] Blood 10/01/2022 9:0 6 AM EDT 10/01/2022 9:23 AM EDT Narrative Resulting Agency Comment Spec In Lab Daphnie Zamora MD CHEMISTRY ORDERABLES Performing Organization Address [facility] Co de Phone Number [facility] [place] [address] * (ABNORMAL) Basic Metabolic Panel (non-fasting) (10/01/2022 9:06 AM EDT) Glucose 149 65 - 199 mg/dL [facility] Comment:Diabetes: >=200 mg/d L plus symptoms Blood Urea Nitrogen 74(H) 10 - 20 mg/dL [facility] Creatinine 4.09(H) 0.80 - 1.50 mg/dL [facility] Sodium 134(L) 135 - 145 mmol/L [facility] Potassium 4.8 3.5 - 5.0 mmol/L [facility] Comment: Please note: ??Patients with WBC >100,000 may have falsely elevated Potassium levels. ??For accurate Potassium quantification in these patients send serum separator tube (gold top) for subsequent determinations. ??Contact the Clinical Chemistry Laboratory if there are any questions. Chloride 103 98 - 107 mmol/L [facility] Carbon Dioxide 18(L) 22 - 31 mmol/L [facility] Anion Gap 13 5 - 15 mmol/L [facility] Calcium 9.1 8.5 - 10.5 mg/dL [facility] Est Glomerular Filtration Rate 15(L) >=60 mL/min/1. 73 m?? [facility] Comment: This patient's estimated GFR was [...] Zamora MD CHEMISTRY ORDERABLES Performing Organization Address City/[facility]/ZIP Co de Phone Number [facility] [address] * (ABNORMAL) Lactate Dehydrogenase (10/01/2022 9:06 AM EDT) Lactate Dehydrogenase 268(H) 110 - 220 unit/L [facility] Blood 10/01/2022 9:06 AM EDT 10/01/2022 9:23 AM EDT Narrative Resulting Agency Comment Spec In Lab Daphnie Zamora MD CHEMISTRY ORDERABLES Performing Organization Address [facility] Co de Phone Number [facility] [address] * Magnesium (10/01/2022 9:06 AM EDT) Magnesium 0.79 0.69 - 1.07 mmol/L [facility] Blood 10/01/2022 9:06 AM EDT 10/01/2022 9:23 AM EDT Narrative Resulting Agency Comment Spec In Lab Daphnie Zamora MD CHEMISTRY ORDERABLES Performing Organization Address City/[facility] Co de Phone Number [facility] [address] * (ABNORMAL) Basic Metabolic Panel (non-fasting) (10/01/2022 9:06 AM EDT) Glucose 149 65 - 199 mg/dL [facility] Comment:Diabetes: >=200 mg/d L plus symptoms Blood Urea Nitrogen 74(H) 10 - 20 mg/dL [facility] Creatinine 4.12(H) 0.80 - 1.50 mg/dL [facility] Sodium 135 135 - 145 mmol/L [facility] Potassium 4.7 3.5 - 5.0 mmol/L [facility] Comment: Please note: ??Patients with WBC >100,000 may have falsely elevated Potassium levels. ??For accurate Potassium quantification in these patients send serum separator tube (gold top) for subsequent determinations. ??Contact the Clinical Chemistry Laboratory if there are any questions. Chloride 103 98 - 107 mmol/L [facility] Carbon Dioxide 18(L) 22 - 31 mmol/L [facility] Anion Gap 14 5 - 15 mmol/L [facility] Calcium 9.1 8.5 - 10.5 mg/dL [facility] Est Glomerular Filtration Rate 15(L) >=60 mL/min/1. 73 m?? [facility] Comment: This patient's estimated GFR was [...] In Lab Daphnie Zamora MD CHEMISTRY ORDERABLES [facility] [address] * POCT Glucose (10/01/2022 7:45 AM EDT) Glucose, POC 147 65 - 199 mg/dL [facility] Comment: Supplemental ranges: <140 mg/dL before meals <180 mg/dL all other times of the day Blood 10/01/2022 7:45 AM EDT 10/01/2022 7:45 AM EDT Daphnie Zamora MD POINT OF CARE TEST O RDERABLES Performing Organization Address [facility] Co de Phone Number [facility] [address] * POCT Glucose (10/01/2022 12:46 AM EDT) Glucose, POC 165 65 - 199 mg/dL [facility] Comment: Supplemental ranges: <140 mg/dL before meals <180 mg/dL all other times of the day Blood 10/01/2022 12:4 6 AM EDT 10/01/2022 12:46 AM EDT Daphnie Zamora MD POINT OF CARE TEST O RDERABART Performing Organization Address [facility] Co de Phone Number [facility] [address] * (ABNORMAL) Osmolality (10/01/2022 12:09 AM EDT) Osmolality 313(H) 275 - 295 mOsm/kg [facility] Blood Venous Draw / Unknown 10/01/2022 12:09 AM EDT 10/01/2022 12:15 AM EDT Narrative Resulting Agency Comment Spec In Lab Reinaldo Barron MD CHEMISTRY ORDERABLE S Performing Organization Address [facility] Co de Phone Number [facility] [address] * (ABNORMAL) Basic Metabolic Panel (non-fasting) (10/01/2022 12:09 AM EDT) Glucose 153 65 - 199 mg/dL [facility] Comment:Diabetes: >=200 mg/d L plus symptoms Blood Urea Nitrogen 75(H) 10 - 20 mg/dL [facility] Creatinine 4.19(H) 0.80 - 1.50 mg/dL [facility] Sodium 135 135 - 145 mmol/L [facility] Potassium 5.1(H) 3.5 - 5.0 mmol/L [facility] Comment: Please note: ??Patients with WBC >100,000 may have falsely elevated Potassium levels. ??For accurate Potassium quantification in these patients send serum separator tube (gold top) for subsequent determinations. ??Contact the Clinical Chemistry Laboratory if there are any questions. Chloride 106 98 - 107 mmol/L [facility] Carbon Dioxide 18(L) 22 - 31 mmol/L [facility] Anion Gap 11 5 - 15 mmol/L [facility] Calcium 8.8 8.5 - 10.5 mg/dL [facility] Est Glomerular Filtration Rate 15(L) >=60 mL/min/1. 73 m?? [facility] Comment: This patient's estimated GFR was [...] Zamora MD CHEMISTRY ORDERABLES Performing Organization Address City/State/[facility] Co de Phone Number [facility] [address] * (ABNORMAL) POCT Glucose (09/30/2022 10:01 PM EDT) Glucose, POC 203(H) 65 - 199 mg/dL [facility] Comment: Supplemental ranges: <140 mg/dL before meals <180 mg/dL all other times of the day Blood 09/30/2022 10:0 1 PM EDT 09/30/2022 10:01 PM EDT Daphnie Zamora MD POINT OF CARE TEST O RDERABLES Performing Organization Address [facility] Co de Phone Number [facility] [address] * (ABNORMAL) POCT Glucose (09/30/2022 8:45 PM EDT) Glucose, POC 221(H) 65 - 199 mg/dL [facility] Comment: Supplemental ranges: <140 mg/dL before meals <180 mg/dL all other times of the day Blood 09/30/2022 8:45 PM EDT 09/30/2022 8:45 PM EDT Daphnie Zamora MD POINT OF CARE TEST O DANIEL Performing Organization Address [facility] Co de Phone Number [facility] [address] * (ABNORMAL) Lactate Dehydrogenase (09/30/2022 7:10 PM EDT) Lactate Dehydrogenase 271(H) 110 - 220 unit/L [facility] Blood 09/30/2022 7:10 PM EDT 09/30/2022 7:14 PM EDT Narrative Resulting Agency Comment Spec In Lab Daphnie Zamora MD CHEMISTRY ORDERABLES Performing Organization Address [facility] Co de Phone Number [facility] [address] * (ABNORMAL) POCT Glucose (09/30/2022 5:11 PM EDT) Glucose, POC 215(H) 65 - 199 mg/dL [facility] Comment: Supplemental ranges: <140 mg/dL before meals <180 mg/dL all other times of the day Blood 09/30/2022 5:11 PM EDT 09/30/2022 5:11 PM EDT Daphnie Zamora MD POINT OF CARE TEST O RDERABLES Performing Organization Address [facility] Co de Phone Number [facility] [address] * ECHO COMPLETE W CONTRAST (09/30/2022 5:05 PM EDT) EF 27 [facility]ART[facility] SYSTEM Anatomical Region Laterality Modality Cardiac Other 09/30/2022 2:57 PM EDT Narrative 09/30/2022 5:15 PM EDT ? Echocardiogram Report Name: NOMI HUBER Brent ?Study Date: 09/30/2022 02:57 PM ?BP: 126/71 mmHg ?Patient Location: [place] [address] B ?HR: 90 : 1955 ?Height: 180 cm ? Account: [id number] Age: 67 yrs ?Weight: 87 kg Gender: [...] No prior study available for comparison. Procedure Complete-[id number]. Left Ventricle Wall thickness is normal. The [...] Jacobs MD - 09/30/2022 Echocardiogram Report Name: NOMIHUBER Study Date: 09/30/2022 02:57 PM BP: 126/71mmHg Patient Location: [address] HR: 90 : 1955 Height: 180 cm Account:[id number] Age: 67 yrs Weight: 87 kg Gender: Male BSA: 2.1 m2 Ordering Physician: DAPHNIE ZAMORA Referring Physician: VICTORIA VALENUZELA Performed By: Yesenia Hubbard RDCS Interpretation Summary [...] No prior study available for comparison. Procedure Complete-[id number]. Left Ventricle Wall thickness is normal. The [...] Uric Acid 3.7 3.5 - 8.5 mg/dL [facility] Blood Venous Draw / Unknown 09/30/2022 5:00 PM EDT 09/30/2022 5:16 PM EDT Narrative Resulting Agency Comment Spec In Lab Daphnie Zamora MD CHEMISTRY ORDERABLES [facility] [address] * (ABNORMAL) Phosphorus (09/30/2022 5:00 PM EDT) Pathologist [facility] Phosphorus 6.1(H) 2.5 - 4.5 mg/dL [facility] Blood Venous Draw / Unknown 09/30/2022 5:00 PM EDT 09/30/2022 5:16 PM EDT Narrative Resulting Agency Comment Spec In Lab Daphnie Zamora MD CHEMISTRY ORDERABLES Performing Organization Address City/[facility]/ZIP Co de Phone Number [facility] [place] [address] * Lactate Dehydrogenase (09/30/2022 5:00 PM EDT) [facility] Lactate Dehydrogenase Not Perf 110 - 220 [facility] Comment: Called by: CRYSTAL, Read back by: Veronica Meyers, Date/Time:09/30/22 17:48. Unable to quantitate due to sample hemolysis. ??Sample redraw suggested. Blood Venous Draw / Unknown 09/30/2022 5:00 PM EDT 09/30/2022 5:16 PM EDT Narrative Resulting Agency Comment Spec In Lab Daphnie Zamora MD CHEMISTRY ORDERABLES Performing Organization Address [facility] Co de Phone Number [facility] [address] * (ABNORMAL) Basic Metabolic Panel (non-fasting) (09/30/2022 5:00 PM EDT) Pathologist [facility] Glucose 202(H) 65 - 199 mg/dL [facility] Comment:Diabetes: >=200 mg/d L plus symptoms Blood Urea Nitrogen 75(H) 10 - 20 mg/dL [facility] Creatinine 4.67(H) 0.80 - 1.50 mg/dL [facility] Sodium 132(L) 135 - 145 mmol/L [facility] Potassium 5.6(H) 3.5 - 5.0 mmol/L [facility] Comment: Please note: ??Patients with WBC >100,000 may have falsely elevated Potassium levels. ??For accurate Potassium quantification in these patients send serum separator tube (gold top) for subsequent determinations. ??Contact the Clinical Chemistry Laboratory if there are any questions. Chloride 105 98 - 107 mmol/L [facility] Carbon Dioxide 12(L) 22 - 31 mmol/L [facility] Anion Gap 15 5 - 15 mmol/L [facility] Calcium 8.4(L) 8.5 - 10.5 mg/dL [facility] Est Glomerular Filtration Rate 13(L) >=60 mL/min/1. 73 m?? [facility] Comment: This patient's estimated GFR was [...] Zamora MD CHEMISTRY ORDERABLES Performing Organization Address City/State/[facility] Co de Phone Number [facility] [address] * (ABNORMAL) Blood Gas Venous ([facility]) (09/30/2022 12:20 PM EDT) pH, Venous 7.31(L) 7.32 - 7.42 [facility] PCO2, Venous 29(L) 41 - 51 mmHg [facility] PO2, Venous 27 25 - 40 mmHg [facility] Bicarbonate, Venous 14.2 mmol/L [facility] Base Excess, Venous -12.1 mmol/L [facility] Hgb Blood Gas Not Perf 13.7 - 16.5 g/dL [facility] Comment: Called by: CARLEY, Read back by: Sandy Meyers, Date/Time:09/30/22 12:43. Short sample-no coox results. Oxyhemoglobin, Venous Not Perf % [facility] Carboxyhemoglob in, Venous Not Perf % [facility] Comment: Nonsmokers: 0.5-1.5% COHB Smokers: Variable, but usually less than 10% Toxic: 20-30% COHB Lethal: Greater than 60% COHB Methemoglobin, Venous Not Perf <=1.5 % [facility] Na Whole Blood 135 135 - 145 mmol/L [facility] K Whole Blood 5.1(H) 3.5 - 5.0 mmol/L [facility] Comment: Please note: Patients with WBC >100,000 may have falsely elevated Potassium levels. Contact the Clinical Chemistry Laboratory if there are any questions. ICa Whole Blood 1.18 1.15 - 1.33 mmol/L [facility] Comment: Note: ??Total bilirubin higher than 20 mg/dL may lead to falsely low ionized calcium. CL Whole Blood 106 98 - 107 mmol/L [facility] Gluc Whole Bld 109 65 - 199 mg/dL [facility] Comment:Diabetes: >=200 mg/d L plus symptoms Lactate WB 1.3 0.5 - 2.2 mmol/L [facility] Blood Gas Source Venous [facility] Blood Venous Draw / Unknown 09/30/2022 12:20 PM EDT 09/30/2022 12:30 PM EDT Narrative Resulting Agency Comment Spec In Lab Daphnie Zamora MD CHEMISTRY ORDERABLES Performing Organization Address [facility] Co de Phone Number [facility] [address] * Lavender Tube HOLD (09/30/2022 12:18 PM EDT) Lavender Hold Sample in lab. [facility] Blood Venous Draw / Unknown 09/30/2022 12:18 PM EDT 09/30/2022 12:43 PM EDT Daphnie Zamora MD HEMATOLOGY ORDERABLE S Performing Organization Address City/[facility] Co de Phone Number [facility] [address] * APTT (09/30/2022 12:18 PM EDT) Partial Thromboplastin Time 29 25 - 37 sec [facility] Comment: The PTT is NOT appropriate for heparin monitoring. Use the Anti-Xa level for heparin monitoring (HEP UFH) or LMWH monitoring (HEP LMW). A PTT less than 37 seconds generally indicates adequate hemostasis. Blood 09/30/2022 12:1 8 PM EDT 09/30/2022 12:42 PM EDT Narrative Resulting Agency Comment Spec In Lab Daphnie Zamora MD HEMATOLOGY ORDERABLE S Performing Organization Address [facility] Co de Phone Number [facility] [address] * (ABNORMAL) Prothrombin Time (09/30/2022 12:18 PM EDT) Prothrombin Time 15.4(H) 9.4 - 12.5 sec [facility] International Normalization Ratio 1.3 [facility] Comment: An INR <2.0 indicates adequate [...] MD HEMATOLOGY ORDERABLE S Performing Organization Address [facility] Co de Phone Number [facility] [address] * Uric acid (09/30/2022 12:18 PM EDT) Uric Acid 4.5 3.5 - 8.5 mg/dL [facility] Blood 09/30/2022 12:1 8 PM EDT 09/30/2022 12:42 PM EDT Narrative Resulting Agency Comment Spec In Lab Daphnie Zamora MD CHEMISTRY ORDERABLES [facility] [address] * (ABNORMAL) Phosphorus (09/30/2022 12:18 PM EDT) Phosphorus 6.6(H) 2.5 - 4.5 mg/dL [facility] Blood 09/30/2022 12:1 8 PM EDT 09/30/2022 12:42 PM EDT Narrative Resulting Agency Comment Spec In Lab Daphnie Zamora MD CHEMISTRY ORDERABLES Performing Organization Address City/[facility]/ZIP Co de Phone Number [facility] [address] * (ABNORMAL) Basic Metabolic Panel (non-fasting) (09/30/2022 12:18 PM EDT) Glucose 112 65 - 199 mg/dL [facility] Comment:Diabetes: >=200 mg/d L plus symptoms Blood Urea Nitrogen 77(H) 10 - 20 mg/dL [facility] Creatinine 5.15(H) 0.80 - 1.50 mg/dL [facility] Sodium 134(L) 135 - 145 mmol/L [facility] Potassium 5.2(H) 3.5 - 5.0 mmol/L [facility] Comment: Please note: ??Patients with WBC >100,000 may have falsely elevated Potassium levels. ??For accurate Potassium quantification in these patients send serum separator tube (gold top) for subsequent determinations. ??Contact the Clinical Chemistry Laboratory if there are any questions. Chloride 104 98 - 107 mmol/L [facility] Carbon Dioxide 14(L) 22 - 31 mmol/L [facility] Anion Gap 16(H) 5 - 15 mmol/L [facility] Calcium 8.9 8.5 - 10.5 mg/dL [facility] Est Glomerular Filtration Rate 11(L) >=60 mL/min/1. 73 m?? [facility] Comment: This patient's estimated GFR was [...] In Lab Daphnie Zamora MD CHEMISTRY ORDERABLES [facility] [address] * (ABNORMAL) Lactate Dehydrogenase (09/30/2022 12:18 PM EDT) Lactate Dehydrogenase 275(H) 110 - 220 unit/L [facility] Blood 09/30/2022 12:1 8 PM EDT 09/30/2022 12:42 PM EDT Narrative Resulting Agency Comment Spec In Lab Daphnie Zamora MD CHEMISTRY ORDERABLES Performing Organization Address [facility]/ZIP Co de Phone Number [facility] [address] * POCT Glucose (09/30/2022 12:07 PM EDT) Glucose, POC 113 65 - 199 mg/dL [facility] Comment: Supplemental ranges: <140 mg/dL before meals <180 mg/dL all other times of the day Blood 09/30/2022 12:0 7 PM EDT 09/30/2022 12:07 PM EDT Daphnie Zamora MD POINT OF CARE TEST O RDERABLES Performing Organization Address City/[facility]/ZIP Co de Phone Number [facility] [address] * CT Guided Biopsy Lymph Node (Chest/Abd/Pelvis) [...] without evidence of complication. Resident/Fellow: None Attending: Dr. Bridger Charles performed this procedure. Daphnie Zamora MD [facility] CT ORDERABLES * Solid Tumor NGS Panel (09/30/2022 11:00 AM EDT) Tissue 09/30/2022 11:0 0 AM EDT 02/02/2023 3:10 PM EST Narrative Resulting Agency Comment Spec In Lab Vasile Sparks MD PATHOLOGY/CYTOLOGY O DANIEL [facility] [place] [address] * (ABNORMAL) Surgical Pathology Report (09/30/2022 11:00 AM EDT) Final Diagnosis [id number] ? Location: [facility]; [facility]; The signing pathologist has (i) examined [...] Petty Verified: ??03/22/2023 14:58 ??Pathologist Performed at: ??-[facility] Dept. of Pathology, [place] [address] [employer] Driver: Tramaine Dixon MD, FCAP, ??CLIA Certificate: [id number] ?Surgical Pathology DIAGNOSIS A - Lymph node, biopsy: - Metastatic carcinoma, consistent with prostatic origin (see discussion) Electronically signed by: ?Ken DOBSON, PhD, Bob Leon Verified: ??10/04/2022 8:03 ?? Dermatopathologist, Bone & Soft Tissue Pathologist Performed at: ??-[facility] Dept. of Pathology, [place] [address] [employer] Driver: Tramaine Dixon MD, FCAP, ??CLIA Certificate: [id number] DISCUSSION Lymphoid tissue is not readily identified. [...] Block ? Antibody ?Result (Positive/Negative) A1 ? [id number] ? Positive (patchy) ? CK7 ?? Positive [...] labeled A1-A2. ??sdy(A) 03/22/2023 2:58 PM EST [facility] LYMPH NODE SPECIMEN / Unknown 09/30/2022 11:00 AM EDT 09/30/2022 11:00 AM EDT Vasile Sparks MD PATHOLOGY/CYTOLOGY O RDERABLES [facility] [address] [place] [address] * Flow Cytometry Report (09/30/2022 11:00 AM EDT) Flow Cytometry Report [id number] ? Location: L2W; 0256; B The signing pathologist has (i) examined the relevant preparation(s) for the specimen(s) and (ii) rendered or confirmed the diagnosis(es). . ?Flow Cytometry DIAGNOSIS Flow cytometric diagnosis: ?Normal immunophenotyping results. No monotypic B-cell population or phenotypically abnormal T-cell population or increase in blasts is detected. Electronically signed by: ?German Salguero MD Verified: ??10/02/2022 15:54 ??Hematopathologist Performed at: ??-[facility] Dept. of Pathology, [place] [address] [employer] Driver: Tramaine Dixon MD, FCAP, ??CLIA Certificate: [id number] DISCUSSION Blasts based on CD45 expression and orthogonal light scatter, are not increased. The CD19 positive B-cells have a polytypic expression of surface immunoglobulin light chain (Eagle:Lambda ratio at 1.1). The T-cells are an admixture of CD4+ and CD8+ T lymphocytes (ratio of 0.6). No loss or atypical intensity distributions are seen for any marquez T antigen (CD2, 3, 4+8, 5, 7). There is no increase in FE72-gczyjmrr/CD3-ne g NK cells. Flow analysis is an ancillary study. A definite diagnosis requires correlation with the morphologic features of this process and if necessary, correlation with other ancillary studies like immunohistochemistry , enzyme cytochemistry and/or cyto/ molecular genetics. This test was developed and its performance characteristics determined by the Clinical Flow Cytometry Laboratory at [facility]. It has not been cleared or approved [...] high complexity clinical laboratory testing. SPECIMEN PROCESSING [id number] Cells for immunophenotypic analysis were derived from tissue. CD45 vs side scatter gating was utilized to identify a lymphoid analysis region that comprises approximately 63-68% of all cells. The following markers were assessed: CD2, CD3, CD4, CD5, CD7, CD8, CD10, CD19, CD45, CD56, kappa light chain, and lambda light chain. CLINICAL INFORMATION adenopathy [facility] 09/30/2022 11:0 0 AM EDT Vasile Sparks MD PATHOLOGY/CYTOLOGY O RDERABLES [facility] [place] [address] * Immunophenotyping Flow Cytometry (09/30/2022 11:00 AM EDT) Immunophenotyping Flow See Comment [facility] Comment: When completed by the Pathologist, the Flow Cytometry Report ([id number]) will display under the Pathology Results section within eD. Other 09/30/2022 11:0 0 AM EDT 09/30/2022 11:15 AM EDT Narrative Resulting Agency Comment Spec In Lab Vasile Sparks MD HEMATOLOGY ORDERABLE S Performing Organization Address [facility] Co de Phone Number [facility] [place] [address] * POCT Glucose (09/30/2022 7:48 AM EDT) Glucose, POC 116 65 - 199 mg/dL [facility] Comment: Supplemental ranges: <140 mg/dL before meals <180 mg/dL all other times of the day Blood 09/30/2022 7:48 AM EDT 09/30/2022 7:48 AM EDT Daphnie Zamora MD POINT OF CARE TEST O RDERABLES Performing Organization Address [facility] Co de Phone Number [facility] [place] [address] * Specimen to Pathology (09/30/2022 7:45 AM EDT) AP Specimen 09/30/2022 7:45 AM EDT 09/30/2022 7:45 AM EDT Narrative [facility] - 09/30/2022 7:45 AM EDT Specimen requisition ordered. ??Separate Pathology report to follow Vasile Sparks MD PATHOLOGY/CYTOLOGY O RDERABLES Performing Organization Address [facility] Co de Phone Number [facility] [place] [address] * (ABNORMAL) Hepatic Function Panel (09/30/2022 6:17 AM EDT) Protein, Total 7.5 6.1 - 8.0 g/dL [facility] Albumin 2.6(L) 3.2 - 5.2 g/dL [facility] Aspartate Aminotransferase 19 0 - 39 unit/L [facility] Alanine Aminotransferase 11 0 - 55 unit/L [facility] Alkaline Phosphatase 56 40 - 130 unit/L [facility] Bilirubin, Total 0.4 0.2 - 1.3 mg/dL [facility] Bilirubin, Direct 0.1 0.0 - 0.3 mg/dL [facility] Blood Venous Draw / Unknown 09/30/2022 6:17 AM EDT 09/30/2022 6:57 AM EDT Narrative Resulting Agency Comment Spec In Lab Daphnie Zamora MD CHEMISTRY ORDERABLES [facility] [address] * TSH (09/30/2022 6:17 AM EDT) [facility] Thyroid Stimulating Hormone 3.16 0.27 - 4.20 mcIU/mL [facility] Comment: Reference Interval (mcIU/mL): Females: ??First Trimester: 0.23-3.88 ??Second Trimester: 0.22-3.90 ??Third Trimester: 0.44-4.66 Blood Venous Draw / Unknown 09/30/2022 6:17 AM EDT 09/30/2022 6:57 AM EDT Narrative Resulting Agency Comment Spec In Lab Daphnie Zamora MD CHEMISTRY ORDERABLES [facility] [place] [address] * Lavender Tube HOLD (09/30/2022 6:17 AM EDT) [facility] Lavender Hold Sample in lab. [facility] Blood Venous Draw / Unknown 09/30/2022 6:17 AM EDT 09/30/2022 6:54 AM EDT Pardeep Torres MD HEMATOLOGY ORDERABLE S Performing Organization Address [facility]/ZIP Co de Phone Number [facility] [address] * (ABNORMAL) Phosphorus (09/30/2022 6:17 AM EDT) Phosphorus 6.8(H) 2.5 - 4.5 mg/dL [facility] Blood 09/30/2022 6:17 AM EDT 09/30/2022 6:53 AM EDT Narrative Resulting Agency Comment Spec In Lab Daphnie Zamora MD CHEMISTRY ORDERABLES Performing Organization Address [facility] Co de Phone Number [facility] [address] * Magnesium (09/30/2022 6:17 AM EDT) Magnesium 0.84 0.69 - 1.07 mmol/L [facility] Blood 09/30/2022 6:17 AM EDT 09/30/2022 6:53 AM EDT Narrative Resulting Agency Comment Spec In Lab Daphnie Zamora MD CHEMISTRY ORDERABLES Performing Organization Address [facility] Co de Phone Number [facility] [place] [address] * (ABNORMAL) Basic Metabolic Panel (non-fasting) (09/30/2022 6:17 AM EDT) Glucose 104 65 - 199 mg/dL [facility] Comment:Diabetes: >=200 mg/d L plus symptoms Blood Urea Nitrogen 75(H) 10 - 20 mg/dL [facility] Creatinine 5.29(H) 0.80 - 1.50 mg/dL [facility] Sodium 133(L) 135 - 145 mmol/L [facility] Potassium 5.7(H) 3.5 - 5.0 mmol/L [facility] Comment: Please note: ??Patients with WBC >100,000 may have falsely elevated Potassium levels. ??For accurate Potassium quantification in these patients send serum separator tube (gold top) for subsequent determinations. ??Contact the Clinical Chemistry Laboratory if there are any questions. Chloride 108(H) 98 - 107 mmol/L [facility] Carbon Dioxide 12(L) 22 - 31 mmol/L [facility] Anion Gap 13 5 - 15 mmol/L [facility] Calcium 8.6 8.5 - 10.5 mg/dL [facility] Est Glomerular Filtration Rate 11(L) >=60 mL/min/1. 73 m?? [facility] Comment: This patient's estimated GFR was [...] Zamora MD CHEMISTRY ORDERABLES Performing Organization Address City/[facility]/ZIP Co de Phone Number [facility] [place] [address] * (ABNORMAL) Lactate Dehydrogenase (09/30/2022 6:17 AM EDT) Lactate Dehydrogenase 312(H) 110 - 220 unit/L [facility] Blood 09/30/2022 6:17 AM EDT 09/30/2022 6:53 AM EDT Narrative Resulting Agency Comment Spec In Lab Daphnie Zamora MD CHEMISTRY ORDERABLES [facility] [address] * Uric acid (09/30/2022 6:17 AM EDT) Uric Acid 4.6 3.5 - 8.5 mg/dL [facility] Blood 09/30/2022 6:17 AM EDT 09/30/2022 6:53 AM EDT Narrative Resulting Agency Comment Spec In Lab Daphnie Zamora MD CHEMISTRY ORDERABLES Performing Organization Address City/[facility]/ZIP Co de Phone Number [facility] [place] [address] * POCT Glucose (09/30/2022 1:07 AM EDT) Glucose, POC 94 65 - 199 mg/dL [facility] Comment: Supplemental ranges: <140 mg/dL before meals <180 mg/dL all other times of the day Blood 09/30/2022 1:07 AM EDT 09/30/2022 1:07 AM EDT Daphnie Zamora MD POINT OF CARE TEST O RDERABLES Performing Organization Address [facility] Co de Phone Number [facility] [place] [address] * (ABNORMAL) Differential, Automated (09/30/2022 12:19 AM EDT) Neutrophil % 77.7 % [facility] Neutrophil Absolute 4.44 1.70 - 6.10 x10(3)/mc L [facility] Lymph % 8.7 % [facility] Lymphocytes Abs 0.5(L) 0.9 - 3.2 x10(3)/mc L [facility] Monocyte % 9.3 % [facility] Monocyte Abs 0.5 0.3 - 0.9 x10(3)/mc L [facility] Eos % 3.1 % [facility] Eosinophils Abs 0.2 0.0 - 0.4 x10(3)/mc L [facility] Basophil % 1.0 % [facility] Baso Absolute 0.1 0.0 - 0.1 x10(3)/mc L [facility] Immature Gran % 0.20 % [facility] Comment: Immature granulocytes(IG's)percentage and absolute count will include metamyelocytes, myelocytes, and promyelocytes. Blood smears from CBCs yielding IG's will be scanned manually for concordance. If this scan disagrees with the automated IG or if promyelocytes are noted, a manual differential will be performed. Immature Gran Absolute 0.01 0.00 - 0.04 x10(3)/mc L [facility] Blood 09/30/2022 12:1 9 AM EDT 09/30/2022 12:35 AM EDT Narrative Resulting Agency Comment Spec In Lab Porter Kingston MD HEMATOLOGY ORDERABLE S [facility] [place] [address] * (ABNORMAL) Hemogram (09/30/2022 12:19 AM EDT) White Blood Cell 5.7 4.0 - 9.5 x10(3)/mc L [facility] Red Blood Cell 2.85(L) 4.58 - 5.54 x10(6)/[facility] Hemoglobin 8.2(L) 13.7 - 16.5 g/dL [facility] Hematocrit 25.7(L) 40.5 - 48.5 % [facility] Mean Cell Volume 90.2 82.9 - 93.1 fL [facility] Mean Cell Hemoglobin 28.8 27.5 - 32.1 pg [facility] Mean Cell Hemoglobin Concentration 31.9(L) 32.0 - 35.7 g/dL [facility] Platelet 431(H) 145 - 357 x10(3)/mc L [facility] RDW Standard Deviation 50.4(H) 36.0 - 45.0 fL [facility] RDW coefficient of variation 15.0(H) 11.4 - 13.8 % [facility] Mean Platelet Volume 9.1 7.6 - 12.9 fL [facility] NRBC% auto 0.0 % [facility] NRBC Absolute 0.000 0.000 - 0.000 x10(3)/mc L [facility] Blood 09/30/2022 12:1 9 AM EDT 09/30/2022 12:35 AM EDT Narrative Resulting Agency Comment Spec In Lab Porter Kingston MD HEMATOLOGY ORDERABLE S Performing Organization Address City/[facility]/ZIP Co de Phone Number [facility] [place] [address] * POCT Glucose (09/29/2022 11:52 PM EDT) Glucose, POC 75 65 - 199 mg/dL [facility] Comment: Supplemental ranges: <140 mg/dL before meals <180 mg/dL all other times of the day Blood 09/29/2022 11:5 2 PM EDT 09/29/2022 11:52 PM EDT Daphnie Zamora MD POINT OF CARE TEST O RDERABLES Performing Organization Address [facility] Co de Phone Number [facility] [address] * Uric acid (09/29/2022 11:09 PM EDT) Uric Acid 5.1 3.5 - 8.5 mg/dL [facility] Blood Venous Draw / Unknown 09/29/2022 11:09 PM EDT 09/29/2022 11:15 PM EDT Narrative Resulting Agency Comment Spec In Lab Pardeep Torres MD CHEMISTRY ORDERABLES Performing Organization Address City/[facility] Co de Phone Number [facility] [address] * (ABNORMAL) Phosphorus (09/29/2022 11:09 PM EDT) Phosphorus 6.5(H) 2.5 - 4.5 mg/dL [facility] Blood 09/29/2022 11:0 9 PM EDT 09/29/2022 11:14 PM EDT Narrative Resulting Agency Comment Spec In Lab Daphnie Zamora MD CHEMISTRY ORDERABLES Performing Organization Address City/[facility]/ZIP Co de Phone Number [facility] [address] * Magnesium (09/29/2022 11:09 PM EDT) Magnesium 0.82 0.69 - 1.07 mmol/L [facility] Blood 09/29/2022 11:0 9 PM EDT 09/29/2022 11:14 PM EDT Narrative Resulting Agency Comment Spec In Lab Daphnie Zamora MD CHEMISTRY ORDERABLES Performing Organization Address City/State/[facility] Co de Phone Number [facility] [place] [address] * (ABNORMAL) Basic Metabolic Panel (non-fasting) (09/29/2022 11:09 PM EDT) Glucose 81 65 - 199 mg/dL [facility] Comment:Diabetes: >=200 mg/d L plus symptoms Blood Urea Nitrogen 78(H) 10 - 20 mg/dL [facility] Creatinine 6.08(H) 0.80 - 1.50 mg/dL [facility] Sodium 133(L) 135 - 145 mmol/L [facility] Potassium 5.1(H) 3.5 - 5.0 mmol/L [facility] Comment: Please note: ??Patients with WBC >100,000 may have falsely elevated Potassium levels. ??For accurate Potassium quantification in these patients send serum separator tube (gold top) for subsequent determinations. ??Contact the Clinical Chemistry Laboratory if there are any questions. Chloride 104 98 - 107 mmol/L [facility] Carbon Dioxide 15(L) 22 - 31 mmol/L [facility] Anion Gap 14 5 - 15 mmol/L [facility] Calcium 8.4(L) 8.5 - 10.5 mg/dL [facility] Est Glomerular Filtration Rate 9(L) >=60 mL/min/1. 73 m?? [facility] Comment: This patient's estimated GFR was [...] In Lab Daphnie Zamora MD CHEMISTRY ORDERABLES [facility] [address] * XR Fluoro No Rad <1Hr - OR Use (09/29/2022 10:48 PM EDT) Narrative Dicom, Auditing User - 09/29/2022 10:48 PM EDT This exam is auto-finalizing. No interpretation was done. Daphnie Zamora MD IMG FLUORO ORDERABLE S * POCT Glucose (09/29/2022 10:48 PM EDT) Glucose, POC 87 65 - 199 mg/dL [facility] Comment: Supplemental ranges: <140 mg/dL before meals <180 mg/dL all other times of the day Blood 09/29/2022 10:4 8 PM EDT 09/29/2022 10:48 PM EDT Daphnie Zamora MD POINT OF CARE TEST O RDERABLES Performing Organization Address City/[facility]/ZIP Co de Phone Number [facility] [address] * Urine Hold (09/29/2022 10:45 PM EDT) Hold, Urine Sample in lab. [facility] Urine Micro Spec / Unknown 09/29/2022 10:45 PM EDT 09/29/2022 10:54 PM EDT Comment:For culture and sens itivity Vasile Castañeda MD URINE ORDERABLES [facility] [address] * Urine culture Urine (09/29/2022 10:45 PM EDT) Urine Culture No growth (Less than 1,000 cfu/ml). [facility] Urine 09/29/2022 10:4 5 PM EDT 09/29/2022 11:10 PM EDT Comment:For culture and sens itivity Narrative Resulting Agency Comment Spec In Lab Daphnie Zamora MD MICROBIOLOGY - GENER AL ORDERABLES Performing Organization Address [facility]/ZIP Co de Phone Number [facility] [address] * (ABNORMAL) POCT Glucose (09/29/2022 9:15 PM EDT) Pathologist [facility] Glucose, POC 59(L) 65 - 199 mg/dL [facility] Comment: Supplemental ranges: <140 mg/dL before meals <180 mg/dL all other times of the day Blood 09/29/2022 9:15 PM EDT 09/29/2022 9:15 PM EDT Daphnie Zamora MD POINT OF CARE TEST O RDERABLES Performing Organization Address [facility] Co de Phone Number [facility] [address] * (ABNORMAL) Phosphorus (09/29/2022 5:24 PM EDT) Pathologist [facility] Phosphorus 6.5(H) 2.5 - 4.5 mg/dL [facility] Blood 09/29/2022 5:24 PM EDT 09/29/2022 5:32 PM EDT Narrative Resulting Agency Comment Spec In Lab Daphnie Zamora MD CHEMISTRY ORDERABLES Performing Organization Address [facility] Co de Phone Number [facility] [address] * Magnesium (09/29/2022 5:24 PM EDT) Pathologist [facility] Magnesium 0.88 0.69 - 1.07 mmol/L [facility] Blood 09/29/2022 5:24 PM EDT 09/29/2022 5:32 PM EDT Narrative Resulting Agency Comment Spec In Lab Daphnie Zamora MD CHEMISTRY ORDERABLES [facility] [place] [address] * (ABNORMAL) Basic Metabolic Panel (non-fasting) (09/29/2022 5:24 PM EDT) Glucose 65 65 - 199 mg/dL [facility] Comment:Diabetes: >=200 mg/d L plus symptoms Blood Urea Nitrogen 81(H) 10 - 20 mg/dL [facility] Creatinine 6.31(H) 0.80 - 1.50 mg/dL [facility] Sodium 131(L) 135 - 145 mmol/L [facility] Potassium 5.2(H) 3.5 - 5.0 mmol/L [facility] Comment: Please note: ??Patients with WBC >100,000 may have falsely elevated Potassium levels. ??For accurate Potassium quantification in these patients send serum separator tube (gold top) for subsequent determinations. ??Contact the Clinical Chemistry Laboratory if there are any questions. Chloride 103 98 - 107 mmol/L [facility] Carbon Dioxide 17(L) 22 - 31 mmol/L [facility] Anion Gap 11 5 - 15 mmol/L [facility] Calcium 9.0 8.5 - 10.5 mg/dL [facility] Est Glomerular Filtration Rate 9(L) >=60 mL/min/1. 73 m?? [facility] Comment: This patient's estimated GFR was [...] In Lab Daphnie Zamora MD CHEMISTRY ORDERABLES [facility] [address] * Uric acid (09/29/2022 5:24 PM EDT) Uric Acid 6.4 3.5 - 8.5 mg/dL [facility] Blood 09/29/2022 5:24 PM EDT 09/29/2022 5:32 PM EDT Narrative Resulting Agency Comment Spec In Lab Daphnie Zamora MD CHEMISTRY ORDERABLES Performing Organization Address City/[facility] Co de Phone Number [facility] [address] * (ABNORMAL) Lactate Dehydrogenase (09/29/2022 5:24 PM EDT) Lactate Dehydrogenase 300(H) 110 - 220 unit/L [facility] Blood 09/29/2022 5:24 PM EDT 09/29/2022 5:32 PM EDT Narrative Resulting Agency Comment Spec In Lab Daphnie Zamora MD CHEMISTRY ORDERABLES Performing Organization Address City/[facility]/ZIP Co de Phone Number [facility] [address] * Uric Acid-Rasburicase (09/29/2022 1:52 PM EDT) Uric Acid 7.3 3.5 - 8.5 mg/dL [facility] Blood 09/29/2022 1:52 PM EDT 09/29/2022 1:58 PM EDT Narrative Resulting Agency Comment Spec In Lab Daphnie Zamora MD CHEMISTRY ORDERABLES Performing Organization Address City/[facility]/ZIP Co de Phone Number [facility] [address] * (ABNORMAL) PSA (Ultrasensitive), total and free (09/29/2022 1:52 PM EDT) Prostate Specific Antigen (Ultrasensitive) 78.80(H) 0.00 - 4.00 ng/mL [facility] Comment: PLEASE NOTE: The above reference interval is intended for healthy males with an intact prostate. Values within this reference interval may indicate recurrence in men who have undergone radical prostatectomy. This result was generated using a Nory Nunu immunoassay. ??Results obtained from other methods or manufacturers cannot be used interchangeably with this method. Prostate Specific Antigen, Free 20.7 ng/mL [facility] Comment: This result was generated using a Nory Nunu immunoassay. ??Results obtained from other methods or manufacturers cannot be used interchangeably with this method. PSA % Free Not Calculated % [facility] Comment: The percent free PSA was not calculated for this sample as the total PSA value was not in the range of 4-10 ng/mL. ??The utility of the percent free PSA in the setting of total PSA values below 4 or above 10 ng/mL has not been evaluated. Probability of finding HEAD SOFT SUGAR OPERATOR on needle biopsy by age in years: [...] Zamora MD CHEMISTRY ORDERABLES Performing Organization Address [facility] Co de Phone Number [facility] [place] [address] * (ABNORMAL) Phosphorus (09/29/2022 11:46 AM EDT) Phosphorus 6.2(H) 2.5 - 4.5 mg/dL [facility] Blood 09/29/2022 11:4 6 AM EDT 09/29/2022 12:02 PM EDT Narrative Resulting Agency Comment Spec In Lab Daphnie Zamora MD CHEMISTRY ORDERABLES Performing Organization Address [facility] Co de Phone Number [facility] [address] * Magnesium (09/29/2022 11:46 AM EDT) Magnesium 0.85 0.69 - 1.07 mmol/L [facility] Blood 09/29/2022 11:4 6 AM EDT 09/29/2022 12:02 PM EDT Narrative Resulting Agency Comment Spec In Lab Daphnie Zamora MD CHEMISTRY ORDERABLES Performing Organization Address [facility] de Phone Number [facility] [address] * (ABNORMAL) Basic Metabolic Panel (non-fasting) (09/29/2022 11:46 AM EDT) Glucose 75 65 - 199 mg/dL [facility] Comment:Diabetes: >=200 mg/d L plus symptoms Blood Urea Nitrogen 80(H) 10 - 20 mg/dL [facility] Creatinine 6.53(H) 0.80 - 1.50 mg/dL [facility] Sodium 129(L) 135 - 145 mmol/L [facility] Potassium 5.8(H) 3.5 - 5.0 mmol/L [facility] Comment: Please note: ??Patients with WBC >100,000 may have falsely elevated Potassium levels. ??For accurate Potassium quantification in these patients send serum separator tube (gold top) for subsequent determinations. ??Contact the Clinical Chemistry Laboratory if there are any questions. Chloride 100 98 - 107 mmol/L [facility] Carbon Dioxide 17(L) 22 - 31 mmol/L [facility] Anion Gap 12 5 - 15 mmol/L [facility] Calcium 8.5 8.5 - 10.5 mg/dL [facility] Est Glomerular Filtration Rate 9(L) >=60 mL/min/1. 73 m?? [facility] Comment: This patient's estimated GFR was [...] Zamora MD CHEMISTRY ORDERABLES Performing Organization Address City/[facility]/ZIP Co de Phone Number [facility] [address] * Uric acid (09/29/2022 11:46 AM EDT) Uric Acid 7.7 3.5 - 8.5 mg/dL [facility] Blood 09/29/2022 11:4 6 AM EDT 09/29/2022 12:02 PM EDT Narrative Resulting Agency Comment Spec In Lab Daphnie Zamora MD CHEMISTRY ORDERABLES Performing Organization Address [facility]/State/ZIP Co de Phone Number [facility] [address] * (ABNORMAL) Lactate Dehydrogenase (09/29/2022 11:46 AM EDT) Pathologist [facility] Lactate Dehydrogenase 286(H) 110 - 220 unit/L [facility] Blood 09/29/2022 11:4 6 AM EDT 09/29/2022 12:02 PM EDT Narrative Resulting Agency Comment Spec In Lab Daphnie Zamora MD CHEMISTRY ORDERABLES Performing Organization Address City/[facility]/ZIP Co de Phone Number [facility] [address] * Vitamin D, 25-Hydroxy (09/29/2022 5:54 AM EDT) [facility] Vitamin D Total 25 OH 21 21 - 100 ng/mL [facility] Vit D Interp Insufficient [facility] Blood Venous Draw / Unknown 09/29/2022 5:54 AM EDT 09/29/2022 6:08 AM EDT Narrative Resulting Agency Comment Spec In Lab Porter Kingston MD CHEMISTRY ORDERABLES Performing Organization Address City/[facility]/ZIP Co de Phone Number [facility] [address] * (ABNORMAL) Immunoglobulins, Quantitative (09/29/2022 5:54 AM EDT) [facility] Immunoglobulin G 2,913(H) 700 - 1,600 mg/dL [facility] Comment: Pediatric Reference Intervals obtained from the Caliper Reference Interval project. http://www.sickkids.ca/caliperproject/index.html IgA 259 70 - 400 mg/dL [facility] IgM 25(L) 40 - 230 mg/dL [facility] Blood Venous Draw / Unknown 09/29/2022 5:54 AM EDT 09/29/2022 6:08 AM EDT Narrative Resulting Agency Comment Spec In Lab Porter Kingston MD CHEMISTRY ORDERABLES Performing Organization Address City/[facility]/ZIP Co de Phone Number [facility] [address] * Immunofixation Electrophoresis (09/29/2022 5:54 AM EDT) [facility] Immunofixation Interpretation See Note [facility] Comment: No specific abnormality observed. Jose Angel Cao MD [facility] Pathology 10/03/2022 See scanned report. Blood Venous Draw / Unknown 09/29/2022 5:54 AM EDT 09/29/2022 6:08 AM EDT Narrative Resulting Agency Comment Spec In Lab Porter Kingston MD CHEMISTRY ORDERABLES [facility] [address] * (ABNORMAL) Differential, Automated (09/29/2022 5:54 AM EDT) Pathologist [facility] Neutrophil % 70.2 % [facility] Neutrophil Absolute 5.22 1.70 - 6.10 x10(3)/mc L [facility] Lymph % 13.3 % [facility] Lymphocytes Abs 1.0 0.9 - 3.2 x10(3)/mc L [facility] Monocyte % 12.9 % [facility] Monocyte Abs 1.0(H) 0.3 - 0.9 x10(3)/mc L [facility] Eos % 2.6 % [facility] Eosinophils Abs 0.2 0.0 - 0.4 x10(3)/mc L [facility] Basophil % 0.7 % [facility] Baso Absolute 0.0 0.0 - 0.1 x10(3)/mc L [facility] Immature Gran % 0.30 % [facility] Comment: Immature granulocytes(IG's)percentage and absolute count will include metamyelocytes, myelocytes, and promyelocytes. Blood smears from CBCs yielding IG's will be scanned manually for concordance. If this scan disagrees with the automated IG or if promyelocytes are noted, a manual differential will be performed. Immature Gran Absolute 0.02 0.00 - 0.04 x10(3)/mc L [facility] Blood 09/29/2022 5:54 AM EDT 09/29/2022 6:04 AM EDT Narrative Resulting Agency Comment Spec In Lab Porter Kingston MD HEMATOLOGY ORDERABLE S [facility] [address] * (ABNORMAL) Hemogram (09/29/2022 5:54 AM EDT) White Blood Cell 7.4 4.0 - 9.5 x10(3)/mc L [facility] Red Blood Cell 3.24(L) 4.58 - 5.54 x10(6)/mc L [facility] Hemoglobin 9.5(L) 13.7 - 16.5 g/dL [facility] Hematocrit 28.9(L) 40.5 - 48.5 % [facility] Mean Cell Volume 89.2 82.9 - 93.1 fL [facility] Mean Cell Hemoglobin 29.3 27.5 - 32.1 pg [facility] Mean Cell Hemoglobin Concentration 32.9 32.0 - 35.7 g/dL [facility] Platelet 447(H) 145 - 357 x10(3)/mc L [facility] RDW Standard Deviation 50.2(H) 36.0 - 45.0 fL [facility] RDW coefficient of variation 15.2(H) 11.4 - 13.8 % [facility] Mean Platelet Volume 9.1 7.6 - 12.9 fL [facility] NRBC% auto 0.0 % [facility] NRBC Absolute 0.000 0.000 - 0.000 x10(3)/mc L [facility] Blood 09/29/2022 5:54 AM EDT 09/29/2022 6:04 AM EDT Narrative Resulting Agency Comment Spec In Lab Porter Kingston MD HEMATOLOGY ORDERABLE S Performing Organization Address City/[facility]/ZIP Co de Phone Number [facility] [address] * Lyme IgG & IgM Antibody (09/29/2022 5:54 AM EDT) Lyme Antibody Negative Negative [facility] Lyme Ab Comment Negative result does not exclude possibility of infection. [facility] Comment: Please note that as of 07/12/2022 that this testing is performed by the Special Chemistry Laboratory at [facility]. This change in testing location is associated with a change in testing methodology. Blood 09/29/2022 5:54 AM EDT 09/29/2022 7:27 AM EDT Narrative Resulting Agency Comment Spec In Lab Daniel Ortiz MD IMMUNOLOG Y ORDERABLES [facility] [address] * Acute Tick Borne Infection Panel (09/29/2022 5:54 AM EDT) Pathologist [facility] Anaplasma phagocytophilum PCR Not Detected Not Detected [facility] Comment: INTERPRETATION: A positive result indicates [...] its performance characteristics determined by the [facility] ([facility]) Laboratory at [facility]. It has not been cleared or approved by the FDA. The laboratory is regulated under CLIA as qualified to perform high-complexity testing. This test is used for clinical purposes. It should not be regarded as investigational or for research. Ehrlichia chaffeensis PCR Not Detected Not Detected [facility] Comment: INTERPRETATION: A positive result indicates [...] and its performance characteristics determined by the [employer] [facility] at [facility]. It has not been cleared or approved by the FDA. The laboratory is regulated under CLIA as qualified to perform high-complexity testing. This test is used for clinical purposes. It should not be regarded as investigational or for research. Babesia microti PCR Not Detected Not Detected [facility] Comment: INTERPRETATION: A positive result indicates [...] and its performance characteristics determined by the [employer] [facility] at [facility]. It has not been cleared or approved by the FDA. The laboratory is regulated under CLIA as qualified to perform high-complexity testing. This test is used for clinical purposes. It should not be regarded as investigational or for research. Borrelia miyamotoi PCR Not Detected Not Detected [facility] Comment: INTERPRETATION: A positive result indicates [...] its performance characteristics determined by the [facility] ([facility]AT) Laboratory at [facility]. It has not been cleared or approved by the FDA. The laboratory is regulated under CLIA as qualified to perform high-complexity testing. This test is used for clinical purposes. It should not be regarded as investigational or for research. Blood 09/29/2022 5:54 AM EDT 09/29/2022 7:14 AM EDT Narrative Resulting Agency Comment Spec In Lab Daniel Ortiz MD MOLECULAR ORDERABLES Performing Organization Address City/[facility]/ZIP Co de Phone Number [facility] [address] * (ABNORMAL) Uric acid (09/29/2022 5:54 AM EDT) Uric Acid 8.8(H) 3.5 - 8.5 mg/dL [facility] Blood 09/29/2022 5:54 AM EDT 09/29/2022 6:04 AM EDT Narrative Resulting Agency Comment Spec In Lab Daniel Ortiz MD CHEMISTRY ORDERABLES Performing Organization Address City/[facility]/ZIP Co de Phone Number [facility] [address] * (ABNORMAL) Lactate Dehydrogenase (09/29/2022 5:54 AM EDT) Lactate Dehydrogenase 279(H) 110 - 220 unit/L [facility] Blood 09/29/2022 5:54 AM EDT 09/29/2022 6:04 AM EDT Narrative Resulting Agency Comment Spec In Lab Daniel Ortiz MD CHEMISTRY ORDERABLES Performing Organization Address [facility] Co de Phone Number [facility] [address] * (ABNORMAL) Phosphorus (09/29/2022 5:54 AM EDT) Phosphorus 6.2(H) 2.5 - 4.5 mg/dL [facility] Blood 09/29/2022 5:54 AM EDT 09/29/2022 6:04 AM EDT Narrative Resulting Agency Comment Spec In Lab Daphnie Zamora MD CHEMISTRY ORDERABLES Performing Organization Address [facility] Co de Phone Number [facility] [address] * Magnesium (09/29/2022 5:54 AM EDT) Magnesium 0.83 0.69 - 1.07 mmol/L [facility] Blood 09/29/2022 5:54 AM EDT 09/29/2022 6:04 AM EDT Narrative Resulting Agency Comment Spec In Lab Daphnie Zamora MD CHEMISTRY ORDERABLES Performing Organization Address [facility] Co de Phone Number [facility] [address] * (ABNORMAL) Basic Metabolic Panel (non-fasting) (09/29/2022 5:54 AM EDT) Glucose 85 65 - 199 mg/dL [facility] Comment:Diabetes: >=200 mg/d L plus symptoms Blood Urea Nitrogen 76(H) 10 - 20 mg/dL [facility] Creatinine 6.07(H) 0.80 - 1.50 mg/dL [facility] Sodium 131(L) 135 - 145 mmol/L [facility] Potassium 5.0 3.5 - 5.0 mmol/L [facility] Comment: Please note: ??Patients with WBC >100,000 may have falsely elevated Potassium levels. ??For accurate Potassium quantification in these patients send serum separator tube (gold top) for subsequent determinations. ??Contact the Clinical Chemistry Laboratory if there are any questions. Chloride 99 98 - 107 mmol/L [facility] Carbon Dioxide 16(L) 22 - 31 mmol/L [facility] Anion Gap 16(H) 5 - 15 mmol/L [facility] Calcium 8.5 8.5 - 10.5 mg/dL [facility] Est Glomerular Filtration Rate 9(L) >=60 mL/min/1. 73 m?? [facility] Comment: This patient's estimated GFR was [...] Zamora MD CHEMISTRY ORDERABLES Performing Organization Address City/[facility]/[place] [address] * (ABNORMAL) Beta 2 Microglobulin, serum (09/29/2022 5:54 AM EDT) Beta 2 Microglobulin 11.3(H) <=3.0 mg/L [facility] Blood 09/29/2022 5:54 AM EDT 09/29/2022 6:04 AM EDT Narrative Resulting Agency Comment Spec In Lab Daniel Ortiz MD CHEMISTRY ORDERABLES [facility] [place] [address] * (ABNORMAL) Free Light Chains, Serum (09/29/2022 5:54 AM EDT) Eagle Free Light Chain 16.76(H) 0.72 - 2.75 mg/dL [facility] Lambda Free Light Chain 16.41(H) 0.57 - 2.15 mg/dL [facility] Eagle/Lambda FLC Ratio 1.0213 0.4000 - 2.5800 [facility] Blood 09/29/2022 5:54 AM EDT 09/29/2022 6:04 AM EDT Narrative Resulting Agency Comment Spec In Lab Daniel Ortiz MD CHEMISTRY ORDERABLES Performing Organization Address City/State/[facility] Co de Phone Number [facility] [address] * (ABNORMAL) Hepatic Function Panel (09/29/2022 5:54 AM EDT) Pathologist [facility] Protein, Total 7.9 6.1 - 8.0 g/dL [facility] Albumin 3.0(L) 3.2 - 5.2 g/dL [facility] Aspartate Aminotransferase 21 0 - 39 unit/L [facility] Alanine Aminotransferase 12 0 - 55 unit/L [facility] Alkaline Phosphatase 58 40 - 130 unit/L [facility] Bilirubin, Total 0.4 0.2 - 1.3 mg/dL [facility] Bilirubin, Direct 0.2 0.0 - 0.3 mg/dL [facility] Blood 09/29/2022 5:54 AM EDT 09/29/2022 6:04 AM EDT Narrative Resulting Agency Comment Spec In Lab Daniel Ortiz MD CHEMISTRY ORDERABLES Performing Organization Address City/State/[facility] Co de Phone Number [facility] [address] * (ABNORMAL) Protein Electrophoresis, serum (09/29/2022 5:54 AM EDT) Total Prot Electrophoresis 7.4 6.1 - 8.0 g/dL [facility] Albumin Electrophoresis 2.95(L) 3.20 - 5.20 g/dL [facility] Alpha 1 Globulin 0.27 0.10 - 0.30 g/dL [facility] Alpha 2 Globulin 1.12(H) 0.40 - 0.90 g/dL [facility] Beta Globulin 0.71 0.50 - 1.00 g/dL [facility] Gamma Globulin 2.35(H) 0.50 - 1.30 g/dL [facility] M1 Band Comments Below None Detected [facility] SPEP Comments See Note [facility] Comment: Serum protein electrophoresis (PEP) shows a band that is a possible paraprotein. Immunofixation (RASHAD) and quantitative immunoglobulin (JOYCELYN) testing will be performed on this sample to verify that it is a monoclonal immunoglobulin. Blood 09/29/2022 5:54 AM EDT 09/29/2022 6:04 AM EDT Narrative Resulting Agency Comment Spec In Lab Daniel Ortiz MD CHEMISTRY ORDERABLES [facility] [place] [address] * CT Chest Abdomen Pelvis wo Contrast [...] who have questions please contact the health small animal caretaker that requested your imaging first. ? Electronically signed by: Jhony Bond MD, [facility] [place] ([phone]), at 09/29/2022 5:43 AM Narrative 09/29/2022 5:43 AM EDT EXAMINATION: CT [...] 3 image 238) which extends beyond the [id number]. Diffuse body wall is are patent. Small [...] (series 3 image 238) which extends beyondthe [id number]. Diffuse body wall is are patent. Small [...] patients who have questions please contactthe health small animal caretaker that requested your imaging first. Daniel Ortiz MD IMG CT OR DERABLES * U Albumin/Cre Ratio (09/29/2022 3:37 AM EDT) Albumin / Creatinin Ratio, Urine 22 0 - 29 mcg/mg Cr [facility] Comment: Reference Ranges: <30 mcg/mg: Normal [...] 2, 357? 362 Albumin, Urine 16.6 mg/L [facility] Creatinine, Urine 77 mg/dL [facility] Urine Urine / Unknown 09/29/2022 3 :37 AM EDT 09/29/2022 4:26 PM EDT Narrative Resulting Agency Comment Spec In Lab Reinaldo Barron MD URINE ORDERABLES Performing Organization Address [facility] Co de Phone Number [facility] [place] [address] * Osmolality, urine, random (09/29/2022 3:37 AM EDT) Osmolality, Urine 278 50 - 1,200 mOsm/kg [facility] Urine Urine / Unknown 09/29/2022 3 :37 AM EDT 09/29/2022 4:24 AM EDT Narrative Resulting Agency Comment Spec In Lab Daphnie Zamora MD URINE ORDERABLES Performing Organization Address [facility] Co de Phone Number [facility] [place] [address] * Creatinine, urine, random (09/29/2022 3:37 AM EDT) Creatinine, Urine 77 mg/dL [facility] Urine Urine / Unknown 09/29/2022 3 :37 AM EDT 09/29/2022 4:24 AM EDT Narrative Resulting Agency Comment Spec In Lab Daphnie Zamora MD URINE ORDERABLES Performing Organization Address [facility]/State/ZIP Co de Phone Number [facility] [address] * Electrolytes, urine, random (09/29/2022 3:37 AM EDT) Sodium, Urine 37 mmol/L [facility] Potassium, Urine 21 mmol/L [facility] Chloride, Urine <20 mmol/L [facility] Urine 09/29/2022 3:37 AM EDT 09/29/2022 4:01 AM EDT Narrative Resulting Agency Comment Spec In Lab Daniel Ortiz MD URINE ORD ERABLES Performing Organization Address [facility] Co de Phone Number [facility] [address] * Protein Electrophoresis, urine, random (09/29/2022 3:37 AM EDT) Protein, Urine 7 0 - 12 mg/dL [facility] U Albumin 41 % total [facility] Globulin, Urine 59 % total [facility] M1 Band, Urine None Detected [facility] UPEP Comments See Note [facility] Comment: There is no evidence of clonal free light chains in this patient's urine sample. Urine 09/29/2022 3:37 AM EDT 09/29/2022 4:01 AM EDT Narrative Resulting Agency Comment Spec In Lab Daniel Ortiz MD URINE ORD ERABLES Performing Organization Address [facility] Co de Phone Number [facility] [address] * EKG 12 Lead (09/29/2022 3:21 AM EDT) Ventricular rate 85 BPM MUSE SYSTEM Atrial Rate 85 BPM MUSE SYSTEM P-R Interval 124 ms MUSE SYSTEM QRS Duration 98 ms MUSE SYSTEM Q-T Interval 388 ms MUSE SYSTEM QTC Calculated (Bezet) 461 ms MUSE SYSTEM Calculated P [place] 48 degrees MUSE SYSTEM Calculated R [place] 56 degrees MUSE SYSTEM Calculated T [place] -144 degrees MUSE SYSTEM INTERPRETATION Normal sinus rhythm ST & T wave abnormality, consider lateral ischemia Prolonged QT Abnormal ECG No previous ECGs available Confirmed by fellow Hector Sanders ([id number]) on 10/01/2022 6:26:43 PM Confirmed by MD STEARNS ARMIN ([id number]) on 10/02/2022 11:20:59 PM MUSE SYSTEM 09/29/2022 3:21 AM EDT 10/02/2022 11:20 PM EDT Daniel Ortiz MD ECG ORDER [facility] MUSE SYSTEM * SCAN DOC: IMPLANTABLE DEVICES [...] who have questions please contact the health small animal caretaker that requested your imaging first. ? Narrative [...] patients who have questions please contactthe health small animal caretaker that requested your imaging first. Rodney Walker MD IMG DX ORDERABLES * POCT Glucose (2022 7:17 PM EDT) Glucose, POC 95 65 - 199 mg/dL [facility] Comment: Supplemental ranges: <140 mg/dL before meals <180 mg/dL all other times of the day Blood 2022 7:17 PM EDT 2022 7:17 PM EDT Rodney Walker MD POINT OF CARE TEST ORDERABLES [facility] [address] * Urinalysis with reflex Culture (2022 6:36 PM EDT) Glucose, Urine Dipstick Negative Negative mg/dL [facility] Protein, Urine Dipstick Negative Negative mg/dL [facility] Bilirubin, Urine Dipstick Negative Negative mg/dL [facility] Comment: Clinical correlation required for positive Urine Bilirubin results as false positive may occur with some drugs and drug related products. If a false positive is suspected a serum total bilirubin should be considered if clinically indicated. Urobilinogen, Urine Dipstick Normal Normal mg/dL [facility] pH, Urn (dipstick) 5.5 5.0 - 8.0 [facility] Blood, Urine Dipstick Negative Negative mg/dL [facility] Ketone, Urine Dipstick Negative Negative mg/dL [facility] Nitrite, Urine Dipstick Negative Negative [facility] Leukocytes, Urine Dipstick Negative Negative mcL [facility] Appearance, Urine Dipstick Clear Clear [facility] Specific [place] Urine Automated 1.012 1.005 - 1.030 [facility] Color, Urine Dipstick Yellow Yellow [facility] Reflex to Culture No [facility] Clean Catch Urine 2022 6:36 PM EDT 2022 7:03 PM EDT Narrative Resulting Agency Comment Spec In Lab Cammy Owen DO URINE ORDER CONCHITA Performing Organization Address City/[facility]/ZIP Co de Phone Number [facility] [address] * (ABNORMAL) Uric acid (2022 5:10 PM EDT) Uric Acid 11.3(H) 3.5 - 8.5 mg/dL [facility] Blood Venous Draw / Unknown 2022 5:10 PM EDT 2022 5:41 PM EDT Narrative Resulting Agency Comment Spec In Lab Daniel Ortiz MD CHEMISTRY ORDERABLES Performing Organization Address City/[facility]/ZIP Co de Phone Number [facility] [place] [address] * (ABNORMAL) Phosphorus (2022 5:10 PM EDT) Phosphorus 6.0(H) 2.5 - 4.5 mg/dL [facility] Blood Venous Draw / Unknown 2022 5:10 PM EDT 2022 5:41 PM EDT Narrative Resulting Agency Comment Spec In Lab Daniel Ortiz MD CHEMISTRY ORDERABLES Performing Organization Address [facility] Co de Phone Number [facility] [place] [address] * Blue Tube HOLD (2022 5:10 PM EDT) Blue Hold Sample in lab. [facility] Blood Venous Draw / Unknown 2022 5:10 PM EDT 2022 5:30 PM EDT Austin MOLINA HEMATOLOGY ORDERABLE S Performing Organization Address [facility] Co de Phone Number [facility] [place] [address] * Gold Tube HOLD (2022 5:10 PM EDT) Gold Hold Sample in lab. [facility] Blood Venous Draw / Unknown 2022 5:10 PM EDT 2022 5:29 PM EDT Austin MOLNIA CHEMISTRY ORDERABLES Performing Organization Address [facility] Co de Phone Number [facility] [place] [address] * (ABNORMAL) Differential, Automated (2022 5:10 PM EDT) Neutrophil % 73.9 % [facility] Neutrophil Absolute 6.40(H) 1.70 - 6.10 x10(3)/mc L [facility] Lymph % 10.7 % [facility] Lymphocytes Abs 0.9 0.9 - 3.2 x10(3)/mc L [facility] Monocyte % 12.8 % [facility] Monocyte Abs 1.1(H) 0.3 - 0.9 x10(3)/mc L [facility] Eos % 2.0 % [facility] Eosinophils Abs 0.2 0.0 - 0.4 x10(3)/[facility] Basophil % 0.5 % [facility] Baso Absolute 0.0 0.0 - 0.1 x10(3)/[facility] Immature Gran % 0.10 % [facility] Comment: Immature granulocytes(IG's)percentage and absolute count will include metamyelocytes, myelocytes, and promyelocytes. Blood smears from CBCs yielding IG's will be scanned manually for concordance. If this scan disagrees with the automated IG or if promyelocytes are noted, a manual differential will be performed. Immature Gran Absolute 0.01 0.00 - 0.04 x10(3)/[facility] Blood 2022 5:10 PM EDT 2022 5:29 PM EDT Narrative Resulting Agency Comment Spec In Lab Austin MOLINA HEMATOLOGY ORDERABLE S Performing Organization Address City/State/[facility] Co de Phone Number [facility] [place] [address] * (ABNORMAL) Hemogram (2022 5:10 PM EDT) White Blood Cell 8.7 4.0 - 9.5 x10(3)/[facility] Red Blood Cell 3.35(L) 4.58 - 5.54 x10(6)/[facility] Hemoglobin 9.6(L) 13.7 - 16.5 g/dL [facility] Hematocrit 29.2(L) 40.5 - 48.5 % [facility] Mean Cell Volume 87.2 82.9 - 93.1 fL [facility] Mean Cell Hemoglobin 28.7 27.5 - 32.1 pg [facility] Mean Cell Hemoglobin Concentration 32.9 32.0 - 35.7 g/dL [facility] Platelet 507(H) 145 - 357 x10(3)/[facility] RDW Standard Deviation 48.4(H) 36.0 - 45.0 fL [facility] RDW coefficient of variation 15.1(H) 11.4 - 13.8 % [facility] Mean Platelet Volume 9.1 7.6 - 12.9 fL [facility] NRBC% auto 0.0 % [facility] NRBC Absolute 0.000 0.000 - 0.000 x10(3)/mc L [facility] Blood 2022 5:10 PM EDT 2022 5:29 PM EDT Narrative Resulting Agency Comment Spec In Lab Austin MOLINA HEMATOLOGY ORDERABLE S [facility] [place] [address] * (ABNORMAL) Basic Metabolic Panel (non-fasting) (2022 5:10 PM EDT) Glucose 102 65 - 199 mg/dL [facility] Comment:Diabetes: >=200 mg/d L plus symptoms Blood Urea Nitrogen 74(H) 10 - 20 mg/dL [facility] Creatinine 5.80(H) 0.80 - 1.50 mg/dL [facility] Sodium 130(L) 135 - 145 mmol/L [facility] Potassium 5.2(H) 3.5 - 5.0 mmol/L [facility] Comment: Please note: ??Patients with WBC >100,000 may have falsely elevated Potassium levels. ??For accurate Potassium quantification in these patients send serum separator tube (gold top) for subsequent determinations. ??Contact the Clinical Chemistry Laboratory if there are any questions. Chloride 101 98 - 107 mmol/L [facility] Carbon Dioxide 16(L) 22 - 31 mmol/L [facility] Anion Gap 13 5 - 15 mmol/L [facility] Calcium 9.0 8.5 - 10.5 mg/dL [facility] Est Glomerular Filtration Rate 10(L) >=60 mL/min/1. 73 m?? [facility] Comment: This patient's estimated GFR was [...] Lab Cammy Owen DO CHEMISTRY O RDERABLES [facility] [place] [address] * Film Library- Storage Only CT Abdomen & Pelvis (2022 12:00 AM EDT) Narrative Dicom, Auditing User - 09/29/2022 1:47 PM EDT This exam is auto-finalizing. It's purpose is for storage only. Daphnie Zamora MD [facility] FILM LIBRARY ORD ERABLES documented in this encounter Visit Diagnoses Not on filedocumented in this encounter Admitting Diagnoses Diagnosis WALTER (acute kidney injury) Acute kidney failure, unspecified documented in this encounter Administered Medications Inactive Administered Medications - up to 3 most recent administrations Medication Order MAR Action Action Date Dose Rate Site acetaminophen (Tylenol) tablet 650 mg 650 mg, Oral, EVERY 6 HOURS PRN, Starting on Emely 09/29/22 at 0739, Until 10/03/22 at 1805, Pain, Maximum dose of acetaminophen is 4,000 mg from all sources in 24 hours. When ordered for pain, acetaminophen should be given even when other ordered pain medications are indicated. , Routine Given 10/03/2022 10:30 AM EDT 650 mg Given 10/02/2022 8:49 PM EDT 650 mg allopurinoL (Zyloprim) tablet 200 mg 200 mg, Oral, DAILY, First dose on Mon09/30/22 at 0900, Until Discontinued, Routine Given 10/03/2022 8:24 AM EDT 200 mg Given 10/02/2022 9:19 AM EDT 200 mg Given 10/01/2022 9:19 AM EDT 200 mg cholecalciferol (Vitamin D3) tablet 1,000 Units 1,000 Units, Oral, DAILY, First dose on Mon09/30/22 at 0900, Until Discontinued, 40 units is equivalent to 1 mcg of cholecalciferol., Routine Given 10/03/2022 8:24 AM EDT 1,000 Units Given 10/02/2022 9:18 AM EDT 1,000 Units [...] SCHEDULED, First dose (after last modification) on Emely 09/29/22 at 1400, Until Discontinued, Routine Given 10/03/2022 [...] 11:36 AM EDT 1 Units iohexoL (Omnipaque) (300 mg/mL) solution PRN, Starting on Mon09/29/22 at 2235, Until Mon10/03/22 at 1805, Intra-Operative (Intra-Procedure), Routine Given 09/29/2022 10:35 PM EDT 30 mLs iohexoL (Omnipaque) (350 mg/mL) solution 0-50 mL 0-50 mL, Oral, ONCE PRN, 1 dose, Starting on Mon09/29/22 at 0020, Until Mon10/03/22 at 1805, Per Protocol, Warning Vesicant/Irritant Medication , Routine levothyroxine (Synthroid) tablet 150 mcg 150 mcg, Oral, DAILY, First dose (after last modification) on Mon09/29/22 at 0600, Until Discontinued, Routine Given 10/03/2022 5:05 AM EDT 150 mcg Given 10/02/2022 6:50 AM EDT 150 mcg Given 10/01/2022 6:21 AM EDT 150 mcg melatonin tablet 3 mg 3 [...] 0325, Until Mon10/03/22 at 1805, Nausea, Routine polyethylene glycoL (Miralax) packet 17 g 17 [...] Given 09/30/2022 4:08 PM EDT 10 mg senna-docusate (Pericolace) 8.6-50 mg per tablet 2 [...] Given 10/02/2022 9:24 AM EDT 5 mLs documented in this encounter Active and Recently Administered Medications Times are shown in EDT. Scheduled Medication Order 10/01/2022 10/02/2022 10/03/2022 allopurinoL (Zyloprim) tablet 200 mg 200 mg, Oral, DAILY, First dose on Mon09/30/22 at 0900, Until Discontinued, Routine 918 (Given - Provider: Estefany Lawler, SHIVAM) 918 (Given - Provider: Veronica Meyers, RN) 08 (Given - Provider: Brisa Steven, RN) cholecalciferol (Vitamin D3) tablet 1,000 Units 1,000 Units, Oral, DAILY, First dose on Mon09/30/22 at 0900, Until Discontinued, 40 units is equivalent to 1 mcg of cholecalciferol., Routine 918 (Given - Provider: Estefany Lawler, SHIVAM) 917 (Given - Provider: Veronica Meyers, RN) 08 (Given - Provider: Brisa Steven, SHIVAM) heparin (porcine) (5,000 units/1 mL) subcutaneous injection 5,000 Units 5,000 Units, Subcutaneous, EVERY 8 HOURS SCHEDULED, First dose (after last modification) on Mon09/29/22 at 1400, Until Discontinued, Routine 06 (Given - Provider: Mariaelena Rain RN)1433 (Given - Provider: Estefany Lawler RN)2219 (Given - Provider: Carlota Morgan RN) 0649 (Given - Provider: Carlota Morgan RN)1451 (Given - Provider: Brisa Steven, SHIVAM)2049 (Given - Provider: Carlota Morgan, SHIVAM) 0505 (Given - Provider: Carlota Morgan RN)1400 [...] parameters not met)1130 (Given - Provider: Estefany Lawler RN)1611 (Given - Provider: Etsefany Lawler RN) 0703 (Not Given - Provider: Carlota Morgan RN - Reason: Order parameters not met)1136 (Given - Provider: Brisa Steven, SHIVAM)1645 (Not Given - Provider: Brisa Steven RN - Reason: Order parameters not met - Comment: BG 158) 0644 (Given - Provider: Carlota Morgan RN)1135 (Given - Provider: Brisa Steven RN - Comment: Blood sugar 178) levothyroxine (Synthroid) [...] (after last modification) on Emely 09/29/22 at 1100, Until Discontinued, Please hold for [...] mg, Oral, EVERY EVENING, First dose on Emely 09/29/22 at 1700, Until Discontinued, Routine 1612 (Given - Provider: Estefany Lawler RN) 1639 (Given - Provider: Brisa Steven, SHIVAM) senna-docusate (Pericolace) 8.6-50 mg per tablet 2 tablet 2 tablet, Oral, 2 TIMES DAILY, First dose on Mon09/29/22 at 0030, Until Discontinued, Hold for loose stool. , Routine 0919 (Not Given - Provider: Estefany Lawler RN - Reason: Patient/family refused)2099 (Not Given - Provider: Eryn Patiño RN - Reason: Patient/family refused) 09 (Not Given - Provider: Veronica Meyers RN - Reason: Patient/family refused)2049 (Given - Provider: Carlota Morgan RN) 0900 (Given - Provider: Brisa Steven, SHIVAM) sevelamer carbonate (Renvela) tablet 800 mg 800 mg, Oral, 3 TIMES DAILY WITH MEALS, First dose on Mon09/30/22 at 0845, Until Discontinued, DO NOT CRUSH OR OPEN, Routine 0918 (Given - Provider: Estefany Lawler RN)1128 (Given - Provider: Estefany Lawler RN)1612 (Given - Provider: Estefany Lawler RN) 0919 (Given - Provider: Veronica Meyers, SHIVAM)1134 [...] Meyers RN)1452 (Given - Provider: Brisa Steven, SHIVAM)205 (Given - Provider: Carlota Morgan RN) 0825 (Given - Provider: Brisa Steven RN)1452 (Given - Provider: Peter Herrera RN) sodium chloride 0.9 % (flush) (BD PosiFlush Normal Saline 0.9) flush 5 mL 5 mL, Intravenous, 2 TIMES DAILY, First dose on Mon09/29/22 at 0030, Until Discontinued, Routine 0920 (Given - Provider: Estefany Lawler, RN)2100 (Given - Provider: Eryn Patiño RN) 0924 (Given - Provider: Veronica Meyers, RN)205 (Given - Provider: Carlota Morgan RN) 1004 (Given - Provider: Brisa Steven, RN) sodium zirconium cyclosilicate (Lokelma) oral powder packet [...] or after sodium zirconium cyclosilicate. , Routine 09 (Given - Provider: Estefany Lawler, SHIVAM) 0916 (Given - Provider: Veronica Meyers, SHIVAM) PRN [...] 2048 (Given - Provider: Carlota Morgan RN) 1030 (Given - Provider: Brisa Steven, SHIVAM) dextrose 10% infusion(Linked Group 2) 250 mL, [...] Nausea documented in this encounter Care Teams Assistant Professor Of Music Relationship Specialty Start Date End Date Victoria Valenzuela PA [address] [place] [address] PCP - General Family Medicine 12/20/21 documented as of this encounter
--- OUTSIDE RECORDS SUMMARY | 2023-10-16 03:18 | XMS_ITS | Encounter Summary ---
Author Organization [facility] [place] [address] Care Team Providers Care Loss Control Consultant Name Role Phone Nicolasa Valenzuela Primary Care Pro vider Encounter Details Date Type Department Care Team (Latest Contact Info) Description 07/06/2022 2:45 PM EDT Ancillary Procedure Radiology XRay at [facility] at [address] [phone] Bebe Hatfield MD [address] [place] [phone] S/P cervical spinal fusion; Cervical spondylosis Social History Tobacco Use Types Packs/Day Years [...] PM EDT Office Visit Hematology/Oncology at [address] [phone] Fiordaliza Downing APRN [facility] [place] [address] 11/10/2023 9:00 AM EDT Appointment [place] [phone] Thomas Curtis MD [facility] [place] [address] 11/21/2023 11:00 AM EDT Infusion Hematology Oncology at [address] [phone] 12/05/2023 1:30 PM EDT Office Visit Hematology/Oncology at [address] [phone] Thomas Curtis MD [facility] [place] [address] Fiordaliza Downing APRN [facility] [place] [address] 12/26/2023 9:00 AM EDT Appointment [place] [phone] Thomas Curtis MD [facility] [place] [address] 02/09/2024 8:00 AM EST Appointment [place] [phone] Thomas Curtis MD [facility] [place] [address] 03/18/2024 3:00 PM EST Office Visit Cardiology at [address] [phone] Sameer Rudolph MD [facility] [place] [address] 03/22/2024 9:00 AM EST Appointment [place] [phone] Thomas Curtis MD [facility] HEMATOLOGY AND ONCOLOGY [place] [id number] 08/23/2024 Hospital Encounter [place] [phone] True Juarez MD [facility] [place] [address] Scheduled Procedures Name Priority Associated Diagnoses Date/Ti me CYSTO, STENT PLACEMENT (WRVU 2.82) Hydronephrosis with ureteral stricture, not elsewhere classified CYSTO, REMOVAL OF STENT, FOR EIGN BODY OR CALCULUS, SIMPLE (WRVU 2.81) Hydronephrosis with ureteral stricture, not elsewhere classified documented as of this encounter Procedures Procedure Name Priority Date/Time Associated Diagnosis Comments XR CERVICAL SPINE 2 OR 3 VIEWS Routine 07/06/2022 2:06 PM EDT S/P cervical spinal fusion Cervical spondylosis documented in this encounter Results * XR Cervical Spine 2 or 3 Views (07/06/2022 2:06 PM EDT) Anatomical Region Laterality Modality C-spine N/A Digital Radiogra phy Impressions 07/07/2022 2:34 PM EDT Status post anterior cervical disc fusion C5-7 without radiographic finding of complication, dynamic instability or acute abnormality. Thank you for letting us participate in the care of this patient. ??If you are a health care provider and have any questions regarding this report, please contact the number below. ??For patients who have questions please contact the health landcare facilitator that requested your imaging first. ? Electronically signed by: Shanda Hagen MD, [facility] ([phone]), at 07/07/2022 2:34 PM Narrative 07/07/2022 2:34 PM EDT EXAMINATION: XR CERVICAL SPINE 2 OR 3 VIEWS CLINICAL HISTORY: (PO1) s/p C5-7 ACDF 03/17 FLEXION AND EXTENSION VIEWS TECHNIQUE: Lateral flexion and extension views of the cervical spine COMPARISON: Radiographs December 13, 2021 and April 18, 2022 FINDINGS: The lateral views image through the C7-T1 disc space. Vertebral body height is preserved. Unchanged, smoothly corticated remodeling of the T1 spinous process. No displaced fracture or destructive bone lesion. Anterior cervical disc fusion with interbody cages and screws has been performed at C5-7. Hardware is intact without adjacent lucency, subsidence, change in position or spine malalignment. Minimal intervertebral disc narrowing throughout cervical spine and mild lower facet joint osteoarthropathy are unchanged. Atlantodental interval is mildly narrowed with marginal osteophytes on both flexion and extension projections. Dynamic exam: Flexion: -2 mm anterolisthesis C3 on C4 -2 mm anterolisthesis C4 on C5 Extension: No spondylolisthesis Survey of skull base, maxillofacial structures and prevertebral soft tissues is normal. Procedure Note Shanda Hagen MD - 07/07/2022 EXAMINATION: XR CERVICAL SPINE 2 OR 3 VIEWS CLINICAL HISTORY: (PO1) s/p C5-7 ACDF 03/17 FLEXION AND EXTENSION VIEWS TECHNIQUE: Lateral flexion and extension views of the cervical spine COMPARISON: Radiographs December 13, 2021 and April 18, 2022 FINDINGS: The lateral views image through the C7-T1 disc space. Vertebral bodyheight is preserved. Unchanged, smoothly corticated remodeling of the T1 spinousprocess. No displaced fracture or destructive bone lesion. Anterior cervical disc fusion with interbody cages and screws has beenperformed at C5-7. Hardware is intact without adjacent lucency, subsidence, changein position or spine malalignment. Minimal intervertebral disc narrowingthroughout cervical spine and mild lower facet joint osteoarthropathy areunchanged. Atlantodental interval is mildly narrowed with marginal osteophytes onboth flexion and extension projections. Dynamic exam: Flexion: -2 mm anterolisthesis C3 on C4 -2 mm anterolisthesis C4 on C5 Extension: No spondylolisthesis Survey of skull base, maxillofacial structures and prevertebral softtissues is normal. IMPRESSION Status post anterior cervical disc fusion C5-7 without radiographicfinding of complication, dynamic instability or acute abnormality. Thank you for letting us participate in the care of this patient. If youare a health care provider and have any questions regarding this report,please contact the number below. For patients who have questions please contactthe health landcare facilitator that requested your imaging first. Electronically signed by: Shanda Hagen MD, [facility]([phone]), at 07/07/2022 2:34 PM Bebe Hatfield MD IMG DX ORDERABLES documented in this encounter Visit Diagnoses Diagnosis S/P cervical spinal fusion Arthrodesis status Cervical spondylosis Cervical spondylosis without myelopathy documented in this encounter Care Teams Loss Control Consultant Relationship Specialty Start Date End Date Nicolasa Valenzuela PA [address] [place] [address] PCP - General Family Medicine 12/20/21 documented as of this encounter
--- OUTSIDE RECORDS SUMMARY | 2023-10-16 03:18 | XMS_ITS | Encounter Summary ---
Author Organization [facility] [place] [address] Care Team Providers Care Guardian Family Member Name Role Phone Nicolasa Valenzuela Primary Care [...] SPINE SURGERY ONLY; MORSELIZED (WRVU *) MODIFIER [address] - Bebe Umanzor MD [address] [place] [address] [facility] Referral ID Status Reason Start Date Expiration Date Visits Re quested Visits Authorized [id number] 1 1 Encounter Details Date Type Department Care Team (Late st Contact Info) Description 03/17/2022 7:30 AM EST - 03/17/2022 10:15 AM EST Surgery Operating Room [facility] [address] [place] [phone] Bebe Hatfield MD 10 [facility] [place] [address] ARTHRODESIS, ANT INTERBODY,DECOMPRESSIO N; CERVICAL BELOW C2 (WRVU 25) Social History Tobacco Use Types Packs/Day Years [...] Sign Reading Time Taken Comments Blood Pressure 137/79 03/17/2022 10:00 AM EST Pulse 75 03/17/2022 10:00 AM EST Temperature 36.4 ??C (97.5 ??F) 03/17/2022 9:18 AM ES T Respiratory Rate 16 03/17/2022 10:00 AM EST Oxygen Saturation 98% 03/17/2022 10:00 AM EST Inhaled Oxygen Concentration - - [...] six weeks after surgery with a Physician???s Plastic Printer at the surgeon???s office. You will have a follow up appointment with the neurosurgeonin three months. If you have sutures that need to be removed, a suture removal appointment will be made for 10-14 days after surgery. If you had hardware, you may need x-rays done at [facility] prior to your follow up appointments. [...] when to stop taking it. Only take euzk-azq-wwtcpom or prescription medicine for pain, discomfort or [...] 911. If you have questions, please call [facility] Neurology and Neurosurgery at [phone], during business hours of Monday through Monday from 8:00 a.m. until 4:00 p.m. In case of emergency during non-business hours, please call the same main number and follow the prompts to page the neurosurgeon pressure control supervisor. SMOKING CESSATION INFORMATION: [place] QUITLINE: [place] QUITLINE: [email or web address] If you smoke, stop now! Smoking may impede healing. MAKE SURE YOU: Understand these instructions. Will seek medical care if you are feeling poor, or get worse. Will call the surgeon???s office with any questions or concerns at : [phone] Nursing information only: Original document to medical [...] personal vehicle via staff member and wheelchair. aWng Martinez RN, 03/17/2022 * Wang Martinez RN - 03/17/2022 10:50 AM EST Huber Keys arrived to Medical Surgical Unit from [...] prior to being discharged from our unit. Med/oxygen therapy teacher at the bedside for report, report given [...] RN - 03/17/2022 3:04 PM EST Summary: CM DC note CARE MANAGEMENT FINAL DISCHARGE NOTE Chart [...] DME Needed at Discharge: walker given from [employer] Patient is insured through: Primary Insurance: MEDICARE [...] New RN - 03/17/2022 12:03 PM ESTSummary: CM IA note Case Management Initial Assessment Ellen New [...] Addiction likely Primary Care Provider: JESSE Nesbitt [phone] Pharmacy: [facility] [address] [place] [address] Health Coverage: Primary Insurance: MEDICARE Secondary Insurance: AARP SUPPLEMENT Other: Prescription Coverage: Yes Status: Patient is a : No Anticipated Services at discharge: none DME: none Transportation Anticipated: family or friend will provide Concerns to be Addressed: discharge planning Agency Referrals: Not Applicable Plan: Denies insecurities for food, housing or transport The best phone number to reach you post discharge is [phone]. A member of the Case Management team will continue to monitor progress and collaborate with the interdisciplinary team to create a safe discharge plan. See MCG guidelines for further clinical documentation during patient???s hospital stay. Ellen New RN Office of Care Management * Op Note - Bebe Hatfield MD - 03/17/2022 7:42 AM EST [facility] Operative Note [facility] [address] [place] [address] Patient Name: Huber Keys : [id number] MR#: [id number] Case Date: 03/17/2022 Case Scheduled Time: 729 Surgeon: Surgeon(s) and Role: * Bebe Hatfield MD - Primary Trailer Truck Driver JESSE Ramirez Preoperative diagnosis: CERVICAL STENOSIS with [...] instrumented fusion of C5-6 and C6-7 with [place] and DBM. Fluoroscopic guidance. Anesthesia: General Findings: A large disc osteophyte especially into the C7 foramen on the right side. Excellent decompression was obtained at both levels and into both C6 and C7 nerve roots. A 7 mm [place] was tapped into C5-6 and an 8 [...] protect the carotid on the right. The Cicero screws were placed into the vertebral bodies [...] canal and both exiting neural foramina. The [place] is then sized appropriately for each interspace and filled with DBM and to tapped into each interspace under fluoroscopic guidance. Three 14 mm screws are then placed appropriately securing the Alle[place]y in place. Cicero screws have been removed. Fluoroscopic confirmation obtained. [...] unit having tolerated the procedure well. The registered nurse surgical services, JESSE Pollard (), worked under my direction for the duration of the operative session. The commercial assistant adequately prepped the operative site and maintained the best possible exposure of anatomy incident to the procedure. Bebe Hatfield MD 03/17/2022 documented in this encounter Plan of Treatment Upcoming Encounters Date Type Department Care Team (Late st Contact Info) Description 10/16/2023 2:30 PM EDT Office Visit Hematology/Oncology at [address] [phone] Fiordaliza Downing APRN [facility] [place] [address] 11/10/2023 9:00 AM EDT Appointment [place] [address] Thomas Curtis MD [facility] [place] [address] 11/21/2023 11:00 AM EDT Infusion Hematology Oncology at [address] [phone] 12/05/2023 1:30 PM EDT Office Visit Hematology/Oncology at [address] [phone] Thomas Curtis MD [facility] [place] [address] Fiordaliza Downing APRN [facility] [place] [address] 12/26/2023 9:00 AM EDT Appointment [place] [phone] Thomas Curtis MD [facility] [place] [address] 02/09/2024 8:00 AM EST Appointment [place] [phone] Thomas Curtis MD [facility] [place] [address] 03/18/2024 3:00 PM EST Office Visit Cardiology at [address] [place] [phone] Sameer Rudolph MD [facility] [place] [place] [address] 03/22/2024 9:00 AM EST Appointment [place] [phone] Thomas Curtis MD [facility] [address] [place] [address] 08/23/2024 Hospital Encounter Main Operating Room [facility] [place] [phone] True Juarez MD [facility] UROLOGY [place] [phone] Scheduled Procedures Name Priority Associated Diagnoses Date/Ti [...] 9:04 AM EST MODIFIER [facility] Yes 03/17/2022 7:22 AM EST CERVICAL STENOSIS Allograft For Spine Surgery Only Morselized () Yes 03/17/2022 7:22 AM EST CERVICAL STENOSIS Insert Biomchn Dev Intervertebral Dsc Spc W/Arthrd (96849) Yes 03/17/2022 7:22 AM EST CERVICAL STENOSIS Arthrd Ant Interdy Cervcl Belw C2 Ea Addl Ntrspc (60595) Yes 03/17/2022 7:22 AM EST CERVICAL STENOSIS Arthrodesis, Ant Interbody,Decompression ; Cervical Below C2 (36749) Yes 03/17/2022 7:22 AM EST CERVICAL STENOSIS POCT GLUCOSE Routine 03/17/2022 6:35 AM EST documented in this encounter Results * XR Fluoro No Rad <1Hr - OR Use (03/17/2022 9:04 AM EST) Narrative Dicom, Auditing User - 03/17/2022 9:04 AM EST This exam is auto-finalizing. No interpretation was done. Bebe Hatfield MD IMG FLUORO JOYA ARRIAGA * POCT Glucose (03/17/2022 6:35 AM EST) Glucose, POC 133 65 - 199 mg/dL [facility] Comment: Supplemental ranges: <140 mg/dL before meals <180 mg/dL all other times of the day Blood 03/17/2022 6:35 AM EST 03/17/2022 6:35 AM EST Bebe Hatfield MD POINT OF CARE JANNY T ORDERABLES [facility] [address] [place] [address] documented in this encounter Visit Diagnoses Not on filedocumented in this encounter Admitting Diagnoses Diagnosis Status [...] Starting on Emely 03/17/22 at 0934, Until Mon03/17/22 at 0958, Pain, PACU Recovery, Routine Given [...] 20 mg, Oral, NIGHTLY, First dose on Emely 03/17/22 at 2100, Until Discontinued, Formulary sub for [...] (New Bag - Prov ider: Ellen Mckenzie, DARCIE) insulin lispro (HumaLOG;Admelog) (100 unit/mL) subcutaneous injection [...] 1130 (Not Given - Pr ovider: Wang Martinez RN - Reason: Order parameters not met) levothyroxine (Synthroid) tablet 137 mcg 137 mcg, Oral, DAILY, First dose on Emely 03/17/22 [...] Routine documented in this encounter Care Teams Guardian Family Member Relationship Specialty Start Date End Date Nicolasa Valenzuela PA [address] [address] PCP - General Family Medicine 12/20/21 documented as of this encounter
--- OUTSIDE RECORDS SUMMARY | 2023-10-16 03:18 | XMS_ITS | Encounter Summary ---
Author Organization [facility] [place] [address] Care Team Providers Care Spiral Tube Winder Name Role Phone Nicolasa Valenzuela Primary Care Pro vider Encounter Details Date Type Department Care Team (Late st Contact Info) Description 06/15/2022 Telephone Urology at [facility] [place] [phone] Leandra Campoverde RN Social History Tobacco Use Types Packs/Day [...] encounter Miscellaneous Notes * Telephone Encounter - Leandra Campoverde RN - 06/15/2022 12:23 PM EDT Meghan from [facility] left a voicemail on the nursing triage line looking forclarification on the PSA (ultrasensitive) test that was ordered per Dr. Juarez. I returned Meghan's call, and spoke to Nicolasa the pt's PCP. I explained that the ultrasensitive just means a PSA that includes total and free. Nicolasa verbalized understanding. documented in this encounter Plan of Treatment Upcoming Encounters Date Type Department Care Team (Late st Contact Info) Description 10/16/2023 2:30 PM EDT Office Visit Hematology/Oncology at [address] [phone] Fiordaliza Downing APRN [facility] [place] [address] 11/10/2023 9:00 AM EDT Appointment [place] [address] Thomas Curtis MD [facility] HEMATOLOGY [place] [address] 11/21/2023 11:00 AM EDT Infusion Hematology Oncology at [address] [phone] 12/05/2023 1:30 PM EDT Office Visit Hematology/Oncology at [address] [phone] Thomas Curtis MD [facility] HEMATOLOGY [place] [address] Fiordaliza Downing APRN [facility] [place] [address] 12/26/2023 9:00 AM EDT Appointment [place] [address] Thomas Curtis MD [facility] HEMATOLOGY [place] [address] 02/09/2024 8:00 AM EST Appointment [place] [phone] Thomas Curtis MD [facility] HEMATOLOGY [place] [address] 03/18/2024 3:00 PM EST Office Visit Cardiology at [address] [place] [address] Sameer Rudolph MD [facility] [place] [address] 03/22/2024 9:00 AM EST Appointment [place] [phone] Thomas Curtis MD [facility] HEMATOLOGY [place] [address] 08/23/2024 Hospital Encounter [place] [phone] True Juarez MD [facility] [place] [address] Scheduled Procedures Name Priority Associated Diagnoses Date/Ti me CYSTO, STENT PLACEMENT (WRVU 2.82) Hydronephrosis with ureteral stricture, not elsewhere classified CYSTO, REMOVAL OF STENT, FOR EIGN BODY OR CALCULUS, SIMPLE (WRVU 2.81) Hydronephrosis with ureteral stricture, not elsewhere classified documented as of this encounter Visit Diagnoses Not on filedocumented in this encounter Care Teams Spiral Tube Winder Relationship Specialty Start Date End Date Nicolasa Valenzuela [place] [address] [place] [address] PCP - General Family Medicine 12/20/21 documented as of this encounter
--- OUTSIDE RECORDS SUMMARY | 2023-10-16 03:18 | XMS_ITS | Encounter Summary ---
Author Organization [facility] [place] [address] Care Team Providers Care Clinic Charge Nurse Name Role Phone Nicolasa Valenzuela Primary Care Pro vider Encounter Details Date Type Department Care Team (Late st Contact Info) Description 01/05/2022 Telephone Urology at [facility] [place] [phone] Leandra Campoverde RN Social History Tobacco Use Types Packs/Day Years Used Date Smoking Tobacco: Never Assessed Sex and Gender Information Value Date Recorded Sex Assigned at Not on file Gender Identity Not on file Sexual Orientation Not on file documented as of this encounter Miscellaneous Notes * Telephone Encounter - Leandra Campoverde RN - 01/05/2022 3:09 PM EDT Patient called stating he is supposed to have a steroid injection tomorrow in his neck with a Dr. Leon at [facility] in [place]. Patient has not started doxycycline yet, but was told his injection may need to be cancelled and delayed until his course of doxycycline is completed. Pt is in a lot of neck pain, and would really like the steroid injection if possibly to delay doxycycline. Called Dr. Leon's office to see how long after steroid injection pt needs to wait before startingdoxycycline. Awaiting response from Dr. Leon. Will update patient once I hear a response. documented in this encounter Plan of Treatment Upcoming Encounters Date Type Department Care Team (Late st Contact Info) Description 10/16/2023 2:30 PM EDT Office Visit Hematology/Oncology at [address] [phone] Fiordaliza Downing APRN [facility] [place] [address] 11/10/2023 9:00 AM EDT Appointment [place] [phone] Thomas Curtis MD [facility] HEMATOLOGY [place] [address] 11/21/2023 11:00 AM EDT Infusion Hematology Oncology at [address] [phone] 12/05/2023 1:30 PM EDT Office Visit Hematology/Oncology at [address] [phone] Thomas Curtis MD [facility] HEMATOLOGY [place] [address] Fiordaliza Downing APRN [facility] [place] [address] 12/26/2023 9:00 AM EDT Appointment [place] [phone] Thomas Curtis MD [facility] HEMATOLOGY [place] [address] 02/09/2024 8:00 AM EST Appointment [place] [phone] Thomas Curtis MD [facility] DR HEMATOLOGY [place] [address] 03/18/2024 3:00 PM EST Office Visit Cardiology at [address] [place] [address] Sameer Rudolph MD [facility] [place] [address] 03/22/2024 9:00 AM EST Appointment [place] [phone] Thomas Curtis MD [facility] HEMATOLOGY [place] [address] 08/23/2024 Hospital Encounter [place] [address] True Juarez MD [facility] [place] [address] Scheduled Procedures Name Priority Associated Diagnoses Date/Ti me CYSTO, STENT PLACEMENT (WRVU 2.82) Hydronephrosis with ureteral stricture, not elsewhere classified CYSTO, REMOVAL OF STENT, FOR EIGN BODY OR CALCULUS, SIMPLE (WRVU 2.81) Hydronephrosis with ureteral stricture, not elsewhere classified documented as of this encounter Visit Diagnoses Not on filedocumented in this encounter Care Teams Clinic Charge Nurse Relationship Specialty Start Date End Date Nicolasa Valenzuela PA [address] [place] [address] PCP - General Family Medicine 12/20/21 documented as of this encounter
--- OUTSIDE RECORDS SUMMARY | 2023-10-16 03:18 | XMS_ITS | Encounter Summary ---
Author Organization [facility] [place] [address] Care Team Providers Care Internet Marketing Specialist Name Role Phone Nicolasa Valenzuela Primary [...] SPINE SURGERY ONLY; MORSELIZED (WRVU *) MODIFIER [address] - Bebe Umanzor MD [address] [place] [address] [facility] Referral ID Status Reason Start Date Expiration Date Visits Re quested Visits Authorized [id number] 1 1 Encounter Details Date Type Department Care Team (Late st Contact Info) Description 03/17/2022 7:19 AM EST Anesthesia Event Operating Room [address] [place] [phone] Ellen Mckenzie CRNA [facility] DR ANESTHES[place] [address] Anesthesia Record Procedure Summary Procedure Name Responsible Anesthesiologist Anesthesia Start Time Anesthesia Stop Time ARTHRODESIS, ANT INTERBODY,DECOMPRES THOMAS; CERVICAL BELOW C2 (WRVU 25) (Bilateral) Ellen Mckenzie CRNA 03/17/22 0703/17/22 0920 Events Date Time Event Comment 03/17/2022 0651 0719 AN Verify 0719 Start 0719 An Start Data 0726 An Induction 0727 An Intubation 0728 Anesthesia Ready 0743 Procedure Start 09 Extubation/LMA Out 09 an stop data 0920 Recovery or ICU Handoff Kate ent care was transferred to the destination unit staff after review of the patient's medical history, current anesthetic/surgical status and plan, according to the Provider Handoff Checklist. 09 Stop Meds Name Total Midazolam 5 mg fentaNYL 100 mcg Propofol 300 mg Succinylcholine 80 mg Ondansetron 8 mg Dexamethasone 10 mg ePHEDrine 10 mg PHENYLephrine 40 mcg ceFAZolin (Ancef) 2 g vial a ttach to sodium chloride 0.9% 100 mL Mini-Bag Plus 2 g Dexmedetomidine 12 mcg lactated ringers infusion 1,000 mL * Agents Name O2 Air N2O Sevoflurane (et) * Blood No blood administrations on file. Lines, Drains, and Airways Type Details Placement Removal (RETIRED) Peripheral IV Line - Single Lumen 03/17/22; 656; basilic vein (medial side of arm), right; bagw-oqh-[id number] catheter system; Anatomical Landmarks; 20 gauge; JMC; distraction, age-appropriate response, appears comfortable, tolerated well; 03/17/22; 1441 03/17/22 0657 by Milla Harris RN 03/17/22 144 by Wang Martinez, SHIVAM ETT Mask Ventilation: Adjunct (2); ETT Type: Cuffed, Oral; ETT Size: 7.5 mm; Indirect: Video; Notes: Asleep, Pre-O2, Stylette; Attempts: 1; Laryngoscopy Grade: 1; ETT Placement Verified By: Auscultation, Capnometry, Visual; Inserted by: Ellen Mckenzie CRNA; Removal Date: 03/17/22; Removal Time: 91203/17/22 07 by Ellen Mckenzie CRNA 03/17/22 0913 by Ellen Mckenzie CRNA Incision 03/17/22; 0750; neck ; vertical; Dermabond, tegaderm; LDA not present upon assessment; 09/28/22; 2330 03/17/22 0750 by Xochitl Pizano RN 09/28/22 2330 by Mariaelena Rain RN documented in this encounter Social History [...] OR Notes * Anesthesia Postprocedure Evaluation - Ellen Mckenzie CRNA - 03/17/2022 11:55 AM EST Department of Anesthesiology Post-procedure Note Patient: Huber Keys Procedure Summary Date: 03/17/22 Room / Location: [facility] OR MAIN OR Anesthesia Start: 718 Anesthesia Stop: 919 Procedures: ARTHRODESIS, ANT INTERBODY,DECOMPRESSION; CERVICAL BELOW C2 (WRVU 25) (Bilateral) ARTHRODESIS ANT INTERBDY CERVCL BELOW C2 EA ADDL INTRSPACE (WRVU 6.5) (Bilateral) INSERTION INTERBODY BIOMECH DEV TO INTERVEBRAL DISC SPACE, EA INTERSPACE (WRVU 4.25) (Bilateral) ALLOGRAFT FOR SPINE SURGERY ONLY; MORSELIZED (WRVU *) (Bilateral) MODIFIER [address] (Bilateral) Diagnosis: (CERVICAL STENOSIS) Surgeons: Bebe Hatfield MD Responsible Provider: Ellen Mckenzie CRNA Anesthesia Type: general ASA Status: 2 All Anesthesia Providers: DARCIE Independent: Ellen Mckenzie CRNA Vitals Value Taken Time BP 137/79 03/17/22 1000 Temp 36.4 ??C (97.5 ??F) 03/17/22 0918 Pulse 75 03/17/22 1000 Resp 16 03/17/22 1000 SpO2 98 % 03/17/22 1000 Pain Level 4 03/17/22 0958 Patient Location: PACU Level of Consciousness: Awake and Alert Pain Management: Satisfactory Analgesia PONV: None Cardiovascular Status: At Baseline Respiratory Status: At Baseline Postoperative Fluid Status: Intravascular EUvolemia Possible Anesthetic Complications: NONE apparent at time of evaluation Final Primary Anesthesia Type: General (The anesthetic type performed was the same as planned.) Comments: See PACU flowsheet for VS VSS Pt with no complaints * Anesthesia Preprocedure Evaluation - Ellen Mckenzie CRNA - 03/14/2022 11:30 AM EST Pre-Anesthesia Evaluation for: Huber Keys a 66 y.o. male. Procedure(s): ARTHRODESIS, ANT INTERBODY,DECOMPRESSION; CERVICAL BELOW C2 (WRVU 25) ARTHRODESIS ANT INTERBDY CERVCL BELOW C2 EA ADDL INTRSPACE (WRVU 6.5) INSERTION INTERBODY BIOMECH DEV TO INTERVEBRAL DISC SPACE, EA INTERSPACE (WRVU 4.25) ALLOGRAFT FOR SPINE SURGERY ONLY; MORSELIZED (WRVU *) MODIFIER [address] There are no problems to display for this patient. Past Medical History: Diagnosis Date ??? Diabetes ??? High blood pressure ??? Hypothyroid Past Surgical History: Procedure Laterality Date ??? CATARACT REMOVAL WITH IMPLANT 2019 ??? HAND SURGERY Left 1997 Left thumb repair surgery ??? INGUINAL HERNIA REPAIR 1954 as an infant ??? US GUIDED BIOPSY PROSTATE WITH URONAV FUSION 12/20/2021 US Guided Biopsy Prostate with Uronav Fusion 12/20/2021 [facility] RAD ULTRASOUND Social History Tobacco Use ??? Smoking status: Never ??? Smokeless tobacco: Never Substance Use Topics ??? Alcohol use: Not Currently Social History Substance and Sexual Activity Drug Use Not Currently Allergies Allergen Reactions ??? Amoxicillin Rash ??? Penicillin Other reaction(s): Unknown Medications: MAR and/or home medications have been reviewed. Physical Exam: Preprocedure Vitals Current as of 03/14/22 1130 No BP, pulse, respiration, SpO2, or temperature recorded. Height: Weight: BMI: IBW: Airway Assessment: Mallampati: II TM distance: >3 FB Neck ROM: full Cardiovascular Assessment: system normal Pulmonary Assessment: unlabored breathing pulmonary exam normal Dental Assessment: Misc Assessment: Patient is wearing No contact(s). IV access: Peripheral line Last Filed Perioperative Cognitive Screening None Anesthesia Plan: ASA 2 general, with a(n) intravenous induction 66 y/o for ACDF PMH includes HTN, Diabetes, hypothyroid. EKG SR w nonspecific ST changes, unchanged since 2019 Plan for GA ETT Informed Consent: Anesthetic plan and risks discussed with patient. Use of blood products discussed with patient who consented to blood products. Anesthesia Screening documented in this encounter Plan of Treatment Upcoming Encounters Date Type Department Care Team (Late st Contact Info) Description 10/16/2023 2:30 PM EDT Office Visit Hematology/Oncology at [address] [phone] Fiordaliza Downing APRN [facility] [place] [address] 11/10/2023 9:00 AM EDT Appointment [place] [address] Thomas Curtis MD [facility] HEMATOLOGY [place] [address] 11/21/2023 11:00 AM EDT Infusion Hematology Oncology at [address] [phone] 12/05/2023 1:30 PM EDT Office Visit Hematology/Oncology at [address] [phone] Thomas Curtis MD [facility] HEMATOLOGY [place] [address] Fiordaliza Downing APRN [facility] [place] [address] 12/26/2023 9:00 AM EDT Appointment [place] [phone] Thomas Curtis MD [facility] HEMATOLOGY [place] [address] 02/09/2024 8:00 AM EST Appointment [place] [phone] Thomas Curtis MD [facility] HEMATOLOGY [place] [address] 03/18/2024 3:00 PM EST Office Visit Cardiology at [address] [phone] Sameer Rudolph MD [facility] [address] 03/22/2024 9:00 AM EST Appointment [place] [phone] Thomas Curtis MD [facility] HEMATOLOGY [place] [address] 08/23/2024 Hospital Encounter [place] [address] True Juarez MD [facility] [place] [address] Scheduled Procedures Name Priority Associated Diagnoses Date/Ti [...] MAR Action Action Date Dose Rate Site ceFAZolin (Ancef) 2 g vial attach to sodium chloride 0.9% 100 mL Mini-Bag Plus 2 g, Intravenous, ONCE, 1 dose, On Emely 03/17/22 at 0715, Administer over 30 Minutes, To be administered upon arrival to the OR within one hour prior to incision., Day of Surgery (Day of Procedure), Indication for (Active or Suspected): Prophylaxis New Bag 03/17/2022 7:28 AM EST 2 g dexAMETHasone (Decadron) injection Intravenous, PRN, Starting on Emely 03/17/22 at 0729, Until Emely 03/17/22 at 0920, Anesthesia Intra-op, Routine Given 03/17/2022 7:29 AM EST 10 mg dexmedeTOMIDine (Precedex) (4 mcg/mL) bolus injection (Anesthsia) Intravenous, PRN, Starting on Emely 03/17/22 at 0734, Until Emely 03/17/22 at 0920, Anesthesia Intra-op, Routine Given 03/17/2022 7:43 AM EST 4 mcg Given 03/17/2022 7:34 AM EST 8 mcg ePHEDrine sulfate (5 mg/mL) multi-dose injection Intravenous, PRN, Starting on Emely 03/17/22 at 0751, Until Emely 03/17/22 at 0920, Anesthesia Intra-op, Routine Given 03/17/2022 8:42 AM EST 5 mg Given 03/17/2022 7:51 AM EST 5 mg fentaNYL (pf) (50 mcg/mL) multi-dose injection Intravenous, PRN, Starting on Emely 03/17/22 at 0743, Until Emely 03/17/22 at 0920, Anesthesia Intra-op, Routine Given 03/17/2022 7:47 AM EST 50 mcg Given 03/17/2022 7:43 AM EST 50 mcg lactated ringers infusion 1,000 mL, at 50 mL/hr, Intravenous, CONTINUOUS, Starting on Emely 03/17/22 at 0715, Until Emely 03/17/22 at 1007, Day of Surgery (Day of Procedure) New Bag 03/17/2022 9:00 AM EST New Bag 03/17/2022 7:19 AM EST New Bag 03/17/2022 6:59 AM EST 1,000 mLs 50 mL/hr midazolam (pf) (Versed) (1 mg/mL) multi-dose injection Intravenous, PRN, Starting on Emely 03/17/22 at 0720, Until Emely 03/17/22 at 0920, Anesthesia Intra-op, Routine Given 03/17/2022 7:26 AM EST 2 mg Given 03/17/2022 7:23 AM EST 1 mg Given 03/17/2022 7:20 AM EST 2 mg ondansetron (pf) (Zofran) (2 mg/mL) injection Intravenous, PRN, Starting on Emely 03/17/22 at 0729, Until Emely 03/17/22 at 0920, Anesthesia Intra-op, Routine Given 03/17/2022 9:03 AM EST 4 mg Given 03/17/2022 7:29 AM EST 4 mg PHENYLephrine HCL in sodium chloride 0.9% 0.8 mg/10 mL (80 mcg/mL) Syrg Intravenous, PRN, Starting on Emely 03/17/22 at 0845, Until Emely 03/17/22 at 0920, Anesthesia Intra-op, Routine Given 03/17/2022 8:45 AM EST 40 mcg propofoL (Diprivan) 10 mg/mL bolus injection (Anesthesia) Intravenous, PRN, Starting on Emely 03/17/22 at 0726, Until Emely 03/17/22 at 0920, Anesthesia Intra-op Given 03/17/2022 8:36 AM EST 50 mg Given 03/17/2022 7:43 AM EST 50 mg Given 03/17/2022 7:26 AM EST 200 mg succinylcholine (Anectine;Quelicin) (20 mg/mL) injection Intravenous, PRN, Starting on Emely 03/17/22 at 0726, Until Emely 03/17/22 at 0920, Anesthesia Intra-op, Routine Given 03/17/2022 7:26 AM EST 80 mg documented in this encounter Care Teams Internet Marketing Specialist Relationship Specialty Start Date End Date Nicolasa Valenzuela PA [address] [place] [address] PCP - General Family Medicine 12/20/21 documented as of this encounter
--- OUTSIDE RECORDS SUMMARY | 2023-10-16 03:18 | XMS_ITS | Encounter Summary ---
Author Organization [facility] [place] [address] Care Team Providers Care Command Center Analyst Name Role Phone Nicolasa Valenzuela Primary Care Pro vider Encounter Details Date Type Department Care Team (Latest Contact Info) Description 04/18/2022 12:45 PM EST Ancillary Procedure Radiology XRay at the [facility] at [facility] [address] [place] [address] Almaz Ross PA [address] [place] [address] S/P cervical spinal fusion; Cervical spondylosis Social [...] PM EDT Office Visit Hematology/Oncology at [address] [phone] Fiordaliza Downing APRN [facility] [place] [address] 11/10/2023 9:00 AM EDT Appointment [place] [address] Thomas Curtis MD [facility] HEMATOLOGY [place] [address] 11/21/2023 11:00 AM EDT Infusion Hematology Oncology at [address] [phone] 12/05/2023 1:30 PM EDT Office Visit Hematology/Oncology at [address] [phone] Thomas Curtis MD [facility] HEMATOLOGY [place] [address] Fiordaliza Downing APRN [facility] [place] [address] 12/26/2023 9:00 AM EDT Appointment [place] [address] Thomas Curtis MD [facility] HEMATOLOGY [place] [address] 02/09/2024 8:00 AM EST Appointment [place] [phone] Thomas Curtis MD [facility] HEMATOLOGY [place] [address] 03/18/2024 3:00 PM EST Office Visit Cardiology at [address] [phone] Sameer Rudolph MD [facility] [place] [address] 03/22/2024 9:00 AM EST Appointment [place] [phone] Thomas Curtis MD [facility] HEMATOLOGY AND ONCOLOGY [place], [place] [phone] 08/23/2024 Hospital Encounter [place] [address] True Juarez MD [facility] [place] [address] Scheduled Procedures Name Priority Associated Diagnoses Date/Ti me CYSTO, STENT PLACEMENT (WRVU 2.82) Hydronephrosis with ureteral stricture, not elsewhere classified CYSTO, REMOVAL OF STENT, FOR EIGN BODY OR CALCULUS, SIMPLE (WRVU 2.81) Hydronephrosis with ureteral stricture, not elsewhere classified documented as of this encounter Procedures Procedure Name Priority Date/Time Associated Diagnosis Comments XR CERVICAL SPINE 1 VIEW Routine 04/18/2022 12:48 PM EST S/P cervical spinal fusion Cervical spondylosis documented in this encounter Results * XR Cervical Spine 1 View (04/18/2022 12:48 PM EST) Anatomical Region Laterality Modality C-spine N/A Digital Radiogra phy Impressions 04/18/2022 2:37 PM EST Status post anterior cervical disc fusion C5-7 without radiographic finding of complication or acute abnormality. Thank you for letting us participate in the care of this patient. ??If you are a health care provider and have any questions regarding this report, please contact the number below. ??For patients who have questions please contact the health senior resident care director that requested your imaging first. ? Electronically signed by: Shanda Hagen MD, [facility] ([phone]), at 04/18/2022 2:37 PM Narrative 04/18/2022 2:37 PM EST EXAMINATION: XR CERVICAL SPINE 1 VIEW CLINICAL HISTORY: LATERAL VIEW, (PO1) S/P C5-7 ACDF 03/17 TECHNIQUE: Standing lateral view of the cervical spine COMPARISON: Radiographs December 13, 2021 and intraoperative fluoroscopy March 17, 2022 FINDINGS: The lateral view images through the T2 vertebral body. Anterior cervical disc fusion with screws and interbody cages C5-7 are intact without adjacent lucency, subsidence, change in position or spine malalignment. Mild prevertebral soft tissue prominence persists anterior to C5-T1 without accompanying air. Multilevel facet osteoarthropathy and smoothly corticated remodeling of the T1 spinous process are unchanged. Survey of skull base, maxillofacial structures and remaining soft tissues is normal. Procedure Note Shanda Hagen MD - 04/18/2022 EXAMINATION: XR CERVICAL SPINE 1 VIEW CLINICAL HISTORY: LATERAL VIEW, (PO1) S/P C5-7 ACDF 03/17 TECHNIQUE: Standing lateral view of the cervical spine COMPARISON: Radiographs December 13, 2021 and intraoperative fluoroscopy March FINDINGS: The lateral view images through the T2 vertebral body. Anterior cervicaldisc fusion with screws and interbody cages C5-7 are intact without adjacentlucency, subsidence, change in position or spine malalignment. Mild prevertebralsoft tissue prominence persists anterior to C5-T1 without accompanying air. Multilevel facet osteoarthropathy and smoothly corticated remodeling ofthe T1 spinous process are unchanged. Survey of skull base, maxillofacial structures and remaining soft tissuesis normal. IMPRESSION Status post anterior cervical disc fusion C5-7 without radiographicfinding of complication or acute abnormality. Thank you for letting us participate in the care of this patient. If youare a health care provider and have any questions regarding this report,please contact the number below. For patients who have questions please contactthe health senior resident care director that requested your imaging first. Almaz MOLINA IMG DX ORDERABLES documented in this encounter Visit Diagnoses Diagnosis S/P cervical spinal fusion Arthrodesis status Cervical spondylosis Cervical spondylosis without myelopathy documented in this encounter Care Teams Command Center Analyst Relationship Specialty Start Date End Date Nicolasa Valenzuela PA [address] [place] [address] PCP - General Family Medicine 12/20/21 documented as of this encounter
--- OUTSIDE RECORDS SUMMARY | 2023-10-16 03:18 | XMS_ITS | Encounter Summary ---
Author Organization [facility] [place] [address] Care Team Providers Care Building Guard Deputy Sheriff Name Role Phone Nicolasa Valenzuela Primary Care Pro vider Encounter Details Date Type Department Care Team (Late Contact Info) Description 03/11/2022 External Results Pre-Admission Testing at [facility] [address] [place] [phone] Social History Tobacco Use Types Packs/Day Years [...] PM EDT Office Visit Hematology/Oncology at [address] [phone] Fiordaliza Downing APRN [facility] [place] [address] 11/10/2023 9:00 AM EDT App[place]ment [place] [phone] Thomas Curtis MD [facility] [place] [address] 11/21/2023 11:00 AM EDT Infusion Hematology Oncology at [address] [phone] 12/05/2023 1:30 PM EDT Office Visit Hematology/Oncology at [address] [phone] Thomas Curtis MD [facility] [place] [address] Fiordaliza Downing APRN [facility] [place] [address] 12/26/2023 9:00 AM EDT [place] [phone] Thomas Curtis MD [facility] [place] [address] 02/09/2024 8:00 AM EST App[place] [address] Thomas Curtis MD [facility] [place] [address] 03/18/2024 3:00 PM EST Office Visit Cardiology at [address] [place] [phone] Sameer Rudolph MD [facility] [place] [address] 03/22/2024 9:00 AM EST Appointment [place] [phone] Thomas Curtis MD [facility] [place] [address] 08/23/2024 Hospital Encounter Main Operating Room [facility] [place] [phone] True Juarez MD [facility] [place] [address] Scheduled Procedures Name Priority Associated Diagnoses Date/Ti me CYSTO, STENT PLACEMENT (WRVU 2.82) Hydronephrosis with ureteral stricture, not elsewhere classified CYSTO, REMOVAL OF STENT, FOR EIGN BODY OR CALCULUS, SIMPLE (WRVU 2.81) Hydronephrosis with ureteral stricture, not elsewhere classified documented as of this encounter Procedures Procedure Name Priority Date/Time Associated Diagnosis Comments [facility] RESULT Routine 06/20/2022 11:0 0 AM EDT [facility] RES[facility] Routine 06/20/2022 11:0 0 AM EDT LAB SCAN Routine 03/08/2022 ECG SCAN Routine 03/08/2022 documented in this encounter Results * [facility] Result (06/20/2022 11:00 AM EDT) Pathologist [facility] [place] [facility] 06/17/2022 12: 24 PM EDT Narrative REF LAB [facility] - 06/20/2022 11:00 AM EDT QUESTION/PROBLEM: ? There is a question regarding the following specimen ? submitted and/or the test requested. ? QUESTION: ? PLEASE VERIFY IF THIS IS A DUPLICATE ORDER, SEE [id number] ? REQUESTED INFORMATION ? AUTHORIZED SIGNATURE ? TO PREVENT FURTHER DELAYS IN TESTING, PLEASE COMPLETE ? INFORMATION ABOVE AND FAX TO [phone] OR EMAIL TO ? [email or web address] TO RESOLVE THIS ORDER. ? NO COLLECTION DATE RECEIVED. WE HAVE USED ? THE DATE THE SPECIMEN WAS RECEIVED BY THIS ? LABORATORY THE COLLECTION DATE. IF THIS ? IS INCORRECT, PLEASE CONTACT CLIENT SERVICES. ? PHONE NUMBER: True Juarez MD POINT OF CARE TEST ORDERABLES REF LAB [facility] [address] [facility] [address], [place] [address] [facility] [address] [place] [address] * [facility] Result (06/20/2022 11:00 AM EDT) [facility] PSA (FREE AND TOTAL) [facility] 06/17/2022 12: 24 PM EDT Narrative REF LAB [facility] - 06/20/2022 11:00 AM EDT Component ? Value ?RefRange ??Units ? Status Abn? PSA, TOTAL ?TNP ?ng/mL ? F ? TEST NOT PERFORMED ? No suitable specimen received. ? Please review the test ? requirements at ? testdirectory.[facility] True Juarez MD POINT OF CARE TEST ORDERABLES REF LAB [facility] [address] [facility] [address], [place] [address] [facility] [address] [place] [address] * Scan Doc: Lab (03/08/2022) Historical Provider MEDIA MGR SCAN EX T ORDR/RSLT * Scan Doc: ECG (03/08/2022) Historical Provider MEDIA MGR SCAN EX T ORDR/RSLT documented in this encounter Visit Diagnoses Not on filedocumented in this encounter Care Teams Building Guard Deputy Sheriff Relationship Specialty Start Date End Date Nicolasa Valenzuela PA [address] [place] [address] PCP - General Family Medicine 12/20/21 documented as of this encounter
--- OUTSIDE RECORDS SUMMARY | 2023-10-16 03:18 | XMS_ITS | Encounter Summary ---
Author Organization Formerly [facility] [place] [address] Care Team Providers Care Regulatory Process Manager Name Role Phone Nicolasa Valenzuela Primary Care Pro vider Encounter Details Date Type Department Care Team (Late st Contact Info) Description 03/10/2022 11:15 AM EST Telephone Pre-Admission Testing at [facility] [address] [place] [phone] Social History Tobacco Use Types Packs/Day Years [...] as of this encounter Progress Notes * Andi Thomas RN - 03/10/2022 11:32 AM ESTSummary: covid screen COVID-19 SCREENING: In the past 14 days, have you had any of the following symptoms: [] Fever (subjective or documented fever) [] Chills [] Cough [] Shortness of breath or difficulty breathing [] Fatigue [] Muscle or body aches [] Headache [] New loss of taste or smell [] Sore throat [] Nausea or vomiting [] Diarrhea [x]NONE OF THE ABOVE Have you tested positive for COVID in the last 90 days? [x]No []Yes If Yes; Date of positive test: Type of test performed: What were your symptoms: Have you scheduled your preop COVID screening test? []Yes []No [x]N/A vaccx4 documented in this encounter Plan of Treatment Upcoming Encounters Date Type Department Care Team (Late st Contact Info) Description 10/16/2023 2:30 PM EDT Office Visit Hematology/Oncology at [address] [phone] Fiordaliza Downing APRN [facility] [place] [address] 11/10/2023 9:00 AM EDT Appointment [place] [address] Thomas Curtis MD [facility] [place] [address] 11/21/2023 11:00 AM EDT Infusion Hematology Oncology at [address] [phone] 12/05/2023 1:30 PM EDT Office Visit Hematology/Oncology at [address] [phone] Thomas Curtis MD [facility] [place] [address] Fiordaliza Downing APRN [facility] [place] [address] 12/26/2023 9:00 AM EDT Appointment [place] [address] Thomas Curtis MD [facility] [place] [address] 02/09/2024 8:00 AM EST Appointment Nuclear Medicine at [place] [phone] Thomas Curtis MD [facility] DR [place] [address] 03/18/2024 3:00 PM EST Office Visit Cardiology at [address] [place] [phone] Sameer Rudolph MD [facility] [place] [address] 03/22/2024 9:00 AM EST Appointment [place] [phone] Thomas Curtis MD [facility] DR [place] [address] 08/23/2024 Hospital Encounter Main Operating Room [place] [phone] True Juarez MD [facility] [place] [address] Scheduled Procedures Name Priority Associated Diagnoses Date/Ti me CYSTO, STENT PLACEMENT (WRVU 2.82) Hydronephrosis with ureteral stricture, not elsewhere classified CYSTO, REMOVAL OF STENT, FOR EIGN BODY OR CALCULUS, SIMPLE (WRVU 2.81) Hydronephrosis with ureteral stricture, not elsewhere classified documented as of this encounter Visit Diagnoses Not on filedocumented in this encounter Care Teams Regulatory Process Manager Relationship Specialty Start Date End Date Nicolasa Valenzuela PA [address] [place] [address] PCP - General Family Medicine 12/20/21 documented as of this encounter
--- OUTSIDE RECORDS SUMMARY | 2023-10-16 03:18 | XMS_ITS | Encounter Summary ---
Author Organization [facility]ly [facility] [place] [address] Care Team Providers Care Title Processor Name Role Phone Nicolasa Valenzuela Primary Care Pro vider Encounter Details Date Type Department Care Team (Late Contact Info) Description 01/04/2022 Telephone [place] [address] True Juarez MD [facility] [place] [address] Social History Tobacco Use Types Packs/Day Years Used Date Smoking Tobacco: Never Assessed Sex and Gender Information Value Date Recorded Sex Assigned at Not on file Gender Identity Not on file Sexual Orientation Not on file documented as of this encounter Miscellaneous Notes * Telephone Encounter - Zuly Azevedo - 01/04/2022 1:05 PM EDT Patient calling, says he had a scheduled telehealth on 12/28 but was told the results from his biopsy had not come back and that he would get a call at a later date. He would like a call back to discuss. PHONE: [phone] documented in this encounter Plan of Treatment Upcoming Encounters Date Type Department Care Team (Late Contact Info) Description 10/16/2023 2:30 PM EDT Office Visit Hematology/Oncology at [address] [phone] Fiordaliza Downing APRN [facility] [place] [address] 11/10/2023 9:00 AM EDT Appointment [place] [phone] Thomas Curtis MD [facility] HEMATOLOGY [place] [address] 11/21/2023 11:00 AM EDT Infusion Hematology Oncology at [address] [phone] 12/05/2023 1:30 PM EDT Office Visit Hematology/Oncology at [address] [phone] Thomas Curtis MD [facility] HEMATOLOGY [place] [address] Fiordaliza Downing APRN [facility] [place] [address] 12/26/2023 9:00 AM EDT Appointment [place] [phone] Thomas Curtis MD [facility] HEMATOLOGY [place] [address] 02/09/2024 8:00 AM EST Appointment [place] [phone] Thomas Curtis MD [facility] HEMATOLOGY [place] [address] 03/18/2024 3:00 PM EST Office Visit Cardiology at [address] [place] [phone] Sameer Rudolph MD [facility] [place] [address] 03/22/2024 9:00 AM EST Appointment [place] [phone] Thomas Curtis MD [facility] HEMATOLOGY [place] [address] 08/23/2024 Hospital Encounter [place] [phone] True Juarez MD [facility] UROLOGY [place], [place] [phone] Scheduled Procedures Name Priority Associated Diagnoses Date/Ti me CYSTO, STENT PLACEMENT (WRVU 2.82) Hydronephrosis with ureteral stricture, not elsewhere classified CYSTO, REMOVAL OF STENT, FOR EIGN BODY OR CALCULUS, SIMPLE (WRVU 2.81) Hydronephrosis with ureteral stricture, not elsewhere classified documented as of this encounter Visit Diagnoses Not on filedocumented in this encounter Care Teams Title Processor Relationship Specialty Start Date End Date Nicolasa Valenzuela PA [address] [place] [address] PCP - General Family Medicine 12/20/21 documented as of this encounter
--- OUTSIDE RECORDS SUMMARY | 2023-10-16 03:18 | XMS_ITS | Encounter Summary ---
Author Organization [facility] [place] [address] Care Team Providers Care Information Systems Auditor Name Role Phone Nicolasa Valenzuela Primary Care Pro vider Reason for Visit * Reason Onset Date Comments Request For Record 09/29/2022 Ernestina Encounter Details Date Type Department Care Team (Late st Contact Info) Description 09/29/2022 [place] [address] Fiordaliza Garcia CMA Request For Record ([place]) Social History Tobacco Use Types Packs/Day Years [...] Miscellaneous Notes * Telephone Encounter - Fiordaliza Garcia CMA - 09/29/2022 7:50 AM EDTSummary: Urgent Request For Records To whom it may concern: THIS IS AN URGENT/STAT/ACUTE REQUEST PATIENT IS CURRENTLY ADMITTED TO THE HOSPITAL. WE WOULD LIKE RECORDS ANDER. Patient is currently admitted in our facility, attending hospitalist Dr Zamora, is requesting records from your office/facility. Please include the following: [] Labs [] Discharge Summary [] Reports/Studies [x] Other : CT of abdomen and pelvis images pushed over please Patient name: Huber Keys Patient : 1955 Thank you, Muriel Garcia CMA General Ambulatory Services documented in this encounter Plan of Treatment Upcoming Encounters Date Type Department Care Team (Late st Contact Info) Description 10/16/2023 2:30 PM EDT Office Visit Hematology/Oncology at [address] [phone] Fiordaliza Downing APRN [facility] [address] 11/10/2023 9:00 AM EDT Appointment [place] [address] Thomas Curtis MD [facility] [place] [address] 11/21/2023 11:00 AM EDT Infusion Hematology Oncology at [address] [phone] 12/05/2023 1:30 PM EDT Office Visit Hematology/Oncology at [address] [phone] Thomas Curtis MD [facility] H[place]OLOG[place] [address] Fiordaliza Downing APRN [facility] [address] 12/26/2023 9:00 AM EDT Appointment [place] [address] Thomas Curtis MD [facility] DR [place]EM[place]OLOG[place] [address] 02/09/2024 8:00 AM EST Appointment Nuclear Medicine at [place] [phone] Thomas Curtis MD [facility] DR [place]EM[place] [address] 03/18/2024 3:00 PM EST Office Visit Cardiology at [address] [place] [phone] Sameer Rudolph MD [facility] [place] [address] 03/22/2024 9:00 AM EST Appointment [place] [phone] Thomas Curtis MD [facility] DR [place]OLOG[place] [address] 08/23/2024 Hospital Encounter [place] [phone] True Juarez MD [facility] [address] Scheduled Procedures Name Priority Associated Diagnoses Date/Ti me CYSTO, STENT PLACEMENT (WRVU 2.82) Hydronephrosis with ureteral stricture, not elsewhere classified CYSTO, REMOVAL OF STENT, FOR EIGN BODY OR CALCULUS, SIMPLE (WRVU 2.81) Hydronephrosis with ureteral stricture, not elsewhere classified documented as of this encounter Visit Diagnoses Not on filedocumented in this encounter Care Teams Information Systems Auditor Relationship Specialty Start Date End Date Nicolasa Valenzuela PA [address] [place] [address] PCP - General Family Medicine 12/20/21 documented as of this encounter
--- OUTSIDE RECORDS SUMMARY | 2023-10-16 03:19 | XMS_ITS | Encounter Summary ---
Author Organization [facility] [place] [address] Care Team Providers Care Ex Chef Name Role Phone Nicolasa Valenzuela Primary Care Pro vider Reason for Visit * Reason Onset Date Comments Pre Procedure Call 11/16/2021 Encounter Details Date Type Department Care Team (Late st Contact Info) Description 11/16/2021 Telephone [place] [phone] Rebecca Aquino, RN Pre Procedure Call Social History Tobacco Use Types Packs/Day Years Used Date Smoking Tobacco: Never Assessed Sex and Gender Information Value Date Recorded Sex Assigned at Not on file Gender Identity Not on file Sexual Orientation Not on file documented as of this encounter Miscellaneous Notes * Telephone Encounter - Rebecca Aquino RN - 11/16/2021 1:11 PM EDT Reason for call: PSA clinic appointment on __12/20/21 at 0900__. Scheduled for Bx at this time? Yes [employer] Meds/Allergies: Amoxicillin Anticoagulant medications: (Coumadin, Plavix, ASA, NSAIDS) No If yes instruct pt to contact PCP or prescribing physician for further instruction as to discontinuing and restarting anti-coagulant therapy for Biopsy. If unable to discontinue medication as per PCPpt to keep appointment and if biopsy warranted will be scheduled for a later date with bridging. Review OTC, herbal and vitamin supplements for potential anti-coag effect: (ginko biloba, rebecca, fever few, garlic, herbal teas with supplements added, Vit C,) No If yes and pt started: pt to stop supplements for 1 week prior and 1 week after biopsy. Labs: Free PSA (must be at least 10 days prior to clinic) Most recent PSA result and date 12/20/21, 111.0 Have all labs faxed to Urology office (fax # [phone]). Patient Hx: Leaky heart valve, artifical heart valve, hx of heart attack and/or problems No Artifical Joint Replacement No Family history of prostate cancer: No Anyone in household work in healthcare? No Antibiotic use in the past 6 months? No Travel outside the [place] in the past 6 months No Other MRI done 10/26/21. Instructed to hold NSAIDs for 7 days prior to appointment. Will use Fleet enema morning of appointment. Will have labs drawn upon arrival for appointment. Patient Instructions/Information: Patient should eat breakfast. Patient to purchase Fleet Enema and use according to directions the morning of appointment if having a biopsy. Patient will meet with provider to discuss lab results and have a OFELIA. Registration is at [facility] receptionist 3K. Patient understands and is able to verbalize back to this nurse the above information. Patient agrees to the POC, knows when and how to call if need arises. documented in this encounter Plan of Treatment Upcoming Encounters Date Type Department Care Team (Late st Contact Info) Description 10/16/2023 2:30 PM EDT Office Visit Hematology/Oncology at [address] [phone] Fiordaliza Downing APRN [facility] [place] [address] 11/10/2023 9:00 AM EDT Appointment [place] [address] Thomas Curtis MD [facility] DR HEMATOLOGY [place] [address] 11/21/2023 11:00 AM EDT Infusion Hematology Oncology at [address] [phone] 12/05/2023 1:30 PM EDT Office Visit Hematology/Oncology at [address] [phone] Thomas Curtis MD [facility] HEMATOLOGY [place] [address] Fiordaliza Downing APRN [facility] [place] [address] 12/26/2023 9:00 AM EDT Appointment [place] [phone] Thomas Curtis MD [facility] HEMATOLOGY [place] [address] 02/09/2024 8:00 AM EST Appointment [place] [phone] Thomas Curtis MD [facility] HEMATOLOGY [place] [address] 03/18/2024 3:00 PM EST Office Visit Cardiology at [address] [phone] Sameer Rudolph MD [facility] [place] [address] 03/22/2024 9:00 AM EST Appointment [place] [phone] Thomas Curtis MD [facility] HEMATOLOGY [place] [address] 08/23/2024 Hospital Encounter Main Operating Room [facility] [place] [phone] True Juarez MD [facility] [place] [address] Scheduled Procedures Name Priority Associated Diagnoses Date/Ti me CYSTO, STENT PLACEMENT (WRVU 2.82) Hydronephrosis with ureteral stricture, not elsewhere classified CYSTO, REMOVAL OF STENT, FOR EIGN BODY OR CALCULUS, SIMPLE (WRVU 2.81) Hydronephrosis with ureteral stricture, not elsewhere classified documented as of this encounter Visit Diagnoses Not on filedocumented in this encounter Care Teams Ex Chef Relationship Specialty Start Date End Date Nicolasa Valenzuela PA [address] [place] [address] PCP - General Family Medicine 12/20/21 documented as of this encounter
--- OUTSIDE RECORDS SUMMARY | 2023-10-16 03:19 | XMS_ITS | Encounter Summary ---
Author Organization [facility] [place] [address] Care Team Providers Care Clinical Laboratory Director Name Role Phone Unknown Primary Care Provider Unavailabl e Encounter Details Date Type Department Care Team (Late st Contact Info) Description 12/17/2021 Ancillary Procedure Radiology at [facility] [address] [place] [phone] Bebe Hatfield MD [address] [facility] [place] [address] Social History Tobacco Use Types Packs/Day Years [...] PM EDT Office Visit Hematology/Oncology at [address] [phone] Fiordaliza Downing APRN [facility] [place] [address] 11/10/2023 9:00 AM EDT Appointment [place] [phone] Thomas Curtis MD [facility] [place] [address] 11/21/2023 11:00 AM EDT Infusion Hematology Oncology at [address] [phone] 12/05/2023 1:30 PM EDT Office Visit Hematology/Oncology at [address] [phone] Thomas Curtis MD [facility] DR [place] [address] Fiordaliza Downing APRN [facility] [place] [address] 12/26/2023 9:00 AM EDT Appointment [place] [phone] Thomas Curtis MD [facility] [place] [address] 02/09/2024 8:00 AM EST Appointment [place] [phone] Thomas Curtis MD [facility] [place] [address] 03/18/2024 3:00 PM EST Office Visit Cardiology at [address] [place] [phone] Sameer Rudolph MD [facility] [place] [address] 03/22/2024 9:00 AM EST Appointment [place] [phone] Thomas Curtis MD [facility] [place] [address] 08/23/2024 Hospital Encounter Main Operating Room [facility] [place] [phone] True Juarez MD [facility] [place] [address] Scheduled Procedures Name Priority Associated Diagnoses Date/Ti me CYSTO, STENT PLACEMENT (WRVU 2.82) Hydronephrosis with ureteral stricture, not elsewhere classified CYSTO, REMOVAL OF STENT, FOR EIGN BODY OR CALCULUS, SIMPLE (WRVU 2.81) Hydronephrosis with ureteral stricture, not elsewhere classified documented as of this encounter Procedures Procedure Name Priority Date/Time Associated Diagnosis Comments FILM LIBRARY STORAGE ONLY MR SPINE Routine 12/17/2021 12:00 AM EDT documented in this encounter Results * Film Library- Storage Only MR Spine (12/17/2021 12:00 AM EDT) Narrative [facility] - 12/24/2021 11:18 AM EDT This exam is auto-finalizing. It's purpose is for storage only. Bebe Hatfield MD [facility] FILM LIBRARY ORDERABLES [place], [place] documented in this encounter Visit Diagnoses Not on filedocumented in this encounter Care Teams Clinical Laboratory Director Relationship Specialty Start Date End Date Unknown None PCP - General 03/06/18 12/19/21 documented as of this encounter
--- OUTSIDE RECORDS SUMMARY | 2023-10-16 03:19 | XMS_ITS | Encounter Summary ---
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 11/16/21 - [employer] TO STEFAN - NEEDS URONAV BIOPSY Estefany Jasso MD [address] [place] [address] [facility] [place] [address] Referral ID Status Reason Start Date Expiration Date V isits Requested Visits Authorized [id number] Closed Consult, Test & Treat 11/16/2021 11/16/2022 1 1 Encounter Details Date Type Department Care Team (Late st Contact Info) Description 11/16/2021 Transcribe [place] [address] Estefany Jasso MD [address] [place] [address] 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 (Primary Dx) Social History Tobacco Use Types [...] 2:30 PM EDT Office Visit Hematology/Oncology at [address] [phone] Fiordaliza Downing APRN [facility] [place] [address] 11/10/2023 9:00 AM EDT Appointment [place] [phone] Thomas Curtis MD [facility] [place] [address] 11/21/2023 11:00 AM EDT Infusion Hematology Oncology at [address] [phone] 12/05/2023 1:30 PM EDT Office Visit Hematology/Oncology at [address] [phone] Thomas Curtis MD [facility] [place] [address] Fiordaliza Downing APRN [facility] [place] [address] 12/26/2023 9:00 AM EDT Appointment [place] [phone] Thomas Curtis MD [facility] [place] [address] 02/09/2024 8:00 AM EST Appointment [place] [phone] Thomas Curtis MD [facility] DR [place] [address] 03/18/2024 3:00 PM EST Office Visit Cardiology at [address] [place] [address] Sameer Rudolph MD [facility] [place] [address] 03/22/2024 9:00 AM EST Appointment [place] [phone] Thomas Curtis MD [facility] [place] [address] 08/23/2024 Hospital Encounter [place] [address] True Juarez MD [facility] [place] [address] Scheduled Procedures Name Priority Associated Diagnoses Date/Ti me CYSTO, STENT PLACEMENT (WRVU 2.82) Hydronephrosis with ureteral stricture, not elsewhere classified CYSTO, REMOVAL OF STENT, FOR EIGN BODY OR CALCULUS, SIMPLE (WRVU 2.81) Hydronephrosis with ureteral stricture, not elsewhere classified Scheduled Referrals Name Type Priority Associated Diagnoses Orde r Schedule Referral to Urology Outpatient Referral Routine 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
--- OUTSIDE RECORDS SUMMARY | 2023-10-16 03:19 | XMS_ITS | Patient Health Record ---
Author Organization [facility] Address [address] [place] [address] Care Team Providers Care Print Line Supervisor Name Role Phone SalHuber burks Unavailable [phone] ALLERGIES Allergen (clinical drug ingredient) Drug/Non Drug [...] (250.00) Active confirmed Diabetes mellitus type II (20957792) Problem Traumatic plantar fasciitis (728.71) Active confirmed Traumatic plantar fasciitis (809228225) Problem FOOT PAIN (729.5) Active confirmed Foot pain (26010748) Problem Type 2 diabetes mellitus (E11.9) Active confirmed 22353741 Problem Onychomycosis (B35.1) Active confirmed 483153591 Problem Toe pain, right (M79.674) Active confirmed [id number] PLAN OF TREATMENT No Information Insurance Providers Payer Name Payer Address Payer Phone Subscriber Number Group Number Insured Name Patient Relationship to Insured Coverage Start Date Coverage End Date Sp[employer] [facility] [address] [place] [address] [id number] HUBER MOSHER Self - patient is the insured SELF [email or web address] [address] HUBER MOSHER Self - patient is the insured MEDICAL (GENERAL) HISTORY Medical History History ICD Code Diabetes Mellitis, Type II, insulin, germania g term (current) Hypothyroidism Plantar fasciitis Grief reaction Onychia, toe Overweight Hyperlipidemia, mixed Hypertension, benign Sebaceous cyst
--- OUTSIDE RECORDS SUMMARY | 2023-10-16 03:19 | XMS_ITS | Encounter Summary ---
Author Organization [facility] Address [facility] [place] [address] Care Team Providers Care Consumer Affairs Specialist Name Role Phone Nicolasa Valenzuela Primary Care Pro vider Encounter Details Date Type Department Care Team (Latest Contact Info) Description 12/20/2021 9:00 AM EDT - 12/20/2021 11:59 PM EDT Hospital [place] [address] Aj Juarez MD [facility] [place] [address] Elevated PSA Discharge Disposition: Home Social History Tobacco Use Types Packs/Day Years Used Date Smoking Tobacco: Never Assessed Sex and Gender Information Value Date Recorded Sex Assigned at Not on file Gender Identity Not on file Sexual Orientation Not on file documented as of this encounter Medications at Time of Discharge Medication Sig Dispensed Refills Start Date End Date glipiZIDE (Glucotrol) 5 mg Tablet Take 5 mg by mouth 2 times daily (before meals). 06/21/2021 03/10/2022 Lantus Solostar U-100 Insulin 100 unit/mL (3 [...] 10/24/2021 10/03/2022 documented as of this encounter Plan of Treatment Upcoming Encounters Date Type Department Care Team (Late st Contact Info) Description 10/16/2023 2:30 PM EDT Office Visit Hematology/Oncology at [address] [phone] Fiordaliza Downing APRN [facility] [place] [address] 11/10/2023 9:00 AM EDT Appointment [place] [address] Thomas Curtis MD [facility] [place] [address] 11/21/2023 11:00 AM EDT Infusion Hematology Oncology at [address] [phone] 12/05/2023 1:30 PM EDT Office Visit Hematology/Oncology at [address] [phone] Thomas Curtis MD [facility] [place] [address] Fiordaliza Downing APRN [facility] [place] [address] 12/26/2023 9:00 AM EDT Appointment [place] [address] Thomas Curtis MD [facility] [place] [address] 02/09/2024 8:00 AM EST Appointment [place] [phone] Thomas Curtis MD [facility] [place] [address] 03/18/2024 3:00 PM EST Office Visit Cardiology at [address] [place] [phone] Sameer Rudolph MD [facility] [place] [place] [address] 03/22/2024 9:00 AM EST Appointment [place] [phone] Thomas Curtis MD [facility] [place] [address] 08/23/2024 Hospital Encounter [place] [phone] Aj Juarez MD [facility] [place] [address] Scheduled Procedures Name Priority Associated Diagnoses Date/Ti me CYSTO, STENT PLACEMENT (WRVU 2.82) Hydronephrosis with ureteral stricture, not elsewhere classified CYSTO, REMOVAL OF STENT, FOR EIGN BODY OR CALCULUS, SIMPLE (WRVU 2.81) Hydronephrosis with ureteral stricture, not elsewhere classified documented as of this encounter Procedures Procedure Name Priority Date/Time Associated Diagnosis Comments US GUIDED BIOPSY PROSTATE WITH URONAV FUSION Routine 12/20/2021 10:33 AM EDT Elevated PSA SURGICAL PATHOLOGY REPORT Routine 12/20/2021 10:30 AM EDT SPECIMEN TO PATHOLOGY Routine 12/20/2021 10:30 AM EDT SPECIMEN TO PATHOLOGY Routine 12/20/2021 10:30 AM EDT SPECIMEN TO PATHOLOGY Routine 12/20/2021 10:30 AM EDT SPECIMEN TO PATHOLOGY Routine 12/20/2021 10:30 AM EDT SPECIMEN TO PATHOLOGY Routine 12/20/2021 10:30 AM EDT SPECIMEN TO PATHOLOGY Routine 12/20/2021 10:30 AM EDT SPECIMEN TO PATHOLOGY Routine 12/20/2021 10:30 AM EDT SPECIMEN TO PATHOLOGY Routine 12/20/2021 10:30 AM EDT SPECIMEN TO PATHOLOGY Routine 12/20/2021 10:30 AM EDT SPECIMEN TO PATHOLOGY Routine 12/20/2021 10:30 AM EDT SPECIMEN TO PATHOLOGY Routine 12/20/2021 10:30 AM EDT SPECIMEN TO PATHOLOGY Routine 12/20/2021 10:30 AM EDT SPECIMEN TO PATHOLOGY Routine 12/20/2021 10:30 AM EDT documented in this encounter Results * US Guided Biopsy Prostate with Uronav Fusion (12/20/2021 10:33 AM EDT) Anatomical Region Laterality Modality Pelvis Ultrasound 12/20/2021 9:27 AM EDT Impressions 12/20/2021 2:37 PM EDT Prostate Summary Transrectal ultrasound of the prostate was performed. Hypoechoic area seen: Left Anterior Base/Mid Prostate Biopsy Summary Ultrasound guidance was provided for Dr. Juarez of the section of Urology who performed multiple biopsies in the [address] [place] [address] location. UroNav fusion was used for this procedure. Thank you for letting us participate in the care of this patient. If you are a health care provider and have any questions regarding this report, please contact the number above. For patients who have questions, please contact the health childcare aide that requested your imaging first. ? Sidney Kline, Staff Physician Electronically Signed Final Report ?? 12/20/2021 02:36 pm Narrative 12/20/2021 2:37 PM EDT Male Pelvis ? (Signed Final 12/20/2021 02:36 pm) PATIENT INFO: ID #: ? [id number] ?: ??[birth year] (66 yrs)(M) Name: ? ROSARIO Kennedy ?Visit Date: 12/20/2021 09:27 am ? NOMI PERFORMED BY: Performed By: ? Claudio Arce RDMS Attending: ?Raisa DOBSON, Sidney Freeman Referred By: ?AJ JUAREZ Location: ? [place] SERVICE(S) PROVIDED: UTRBXURO - Prostate Biopsy with UroNav Fusion ? [id number], [id number] - [id number] INDICATIONS: Elevated PSA 35.3, MRI PIRADs 5 TECHNIQUE/SCAN QUALITY: Technique: ?Transducer #:12 COMPARISON: MRI Pelvis:10/26/21 --------- PROSTATE: --------- Size (cm) ?L: ??6.2 ? AP: ??4.7 ? TV: ??5.5 Vol (ml): ?83.9 Comment: ?Hypoechoic area seen: Left Anterior Base/Mid ADDITIONAL FINDINGS: Template biopsies performed: 6 biopsies obtained from the right. 9 biopsies obtained from the left Several additional biopsies obtained through suspicious area(s) using UroNav fusion. Procedure Note Sidney Kline MD - 12/20/2021 Male Pelvis (Signed Final 12/20/2021 02:36 pm) PATIENT INFO: ID #: [id number] : [birth year] (66 yrs)(M) Name: ROSARIO Kennedy Visit Date: 12/20/2021 09:27 am NOMI PERFORMED BY: Performed By: Claudio Arce RDMS Attending: Sidney Kline MD Referred By: AJ JUAREZ Location: [facility] SERVICE(S) PROVIDED: UTRBXURO - Prostate Biopsy with UroNav Fusion [id number] - [id number] INDICATIONS: Elevated PSA 35.3, MRI PIRADs 5 TECHNIQUE/SCAN QUALITY: Technique: Transducer #:12 COMPARISON: MRI Pelvis:10/26/21 --------- PROSTATE: --------- Size (cm) L: 6.2 AP: 4.7 TV: 5.5 Vol (ml): 83.9 Comment: Hypoechoic area seen: Left Anterior Base/Mid ADDITIONAL FINDINGS: Template biopsies performed: 6 biopsies obtained from the right. 9 biopsies obtained from the left Several additional biopsies obtained through suspicious area(s) using UroNav fusion. IMPRESSION Prostate Summary Transrectal ultrasound of the prostate was performed. Hypoechoic area seen: Left Anterior Base/Mid Prostate Biopsy Summary Ultrasound guidance was provided for Dr. Juarez of the section of Urology who performed multiple biopsies in the [address] [place] [address] location. UroNav fusion was used for this procedure. Thank you for letting us participate in the care of this patient. If you are a health care provider and have any questions regarding this report, please contact the number above. For patients who have questions, please contact the health childcare aide that requested your imaging first. Sidney Kline, Staff Physician Electronically Signed Final Report 12/20/2021 02:36 pm Aj Juarez MD IMG US PROC ORDERA BLES * Surgical Pathology Report (12/20/2021 10:30 AM EDT) Final Diagnosis [id number] ? Location: 3S The signing pathologist has (i) examined the relevant preparation(s) for the specimen(s) and (ii) rendered or confirmed the diagnosis(es). . ?Surgical Pathology DIAGNOSIS A - Prostate, Right lateral base, biopsy: ?- Benign prostatic tissue. B - Prostate, Right lateral mid, biopsy: ?- Benign prostatic tissue. (See discussion) C - Prostate, Right lateral apex, biopsy: ?- Benign prostatic tissue. D - Prostate, Right base, biopsy: ?- Benign prostatic tissue. E - Prostate, Right mid, biopsy: ?- Benign prostatic tissue. F - Prostate, Right apex, biopsy: ?- Benign prostatic tissue. G - Prostate, Left lateral base, biopsy: ?- Benign prostatic tissue. H - Prostate, Left lateral mid, biopsy: ?- Benign prostatic tissue. I - Prostate, Left lateral apex, biopsy: ?- Benign prostatic tissue. J - Prostate, Left base, biopsy: ?- Benign prostatic tissue. K - Prostate, Left mid, biopsy: ?- Benign prostatic tissue. L - Prostate, Left apex, biopsy: ?- Benign prostatic tissue. M - Prostate, MRI LESION #1, biopsy: ?- Benign prostatic tissue. (See discussion) Electronically signed by: ?MD Kathrine, Edgardo Foster Verified: ??12/28/2021 10:58 ??Pathologist Performed at: ??-[facility] Dept. of Pathology, [place], [place] DISCUSSION Parts B and M: ??An immunostain cocktail for [id number], p63, and [id number] is supportive of these diagnoses. ADDITIONAL STUDIES Whole slide scan: cash applications representative slide(s) Multiple deeper levels were examined for all Parts. . SPECIMEN(S) SUBMITTED A - Prostate, Right lateral base, biopsy (1) B - Prostate, Right lateral mid, biopsy (1) C - Prostate, Right lateral apex, biopsy (1) D - Prostate, Right base, biopsy (1) E - Prostate, Right mid, biopsy (1) F - Prostate, Right apex, biopsy (1) G - Prostate, Left lateral base, biopsy (1) h - Prostate, Left lateral mid, biopsy (1) i - Prostate, Left lateral apex, biopsy (1) J - Prostate, Left base, biopsy (1) K - Prostate, Left mid, biopsy (1) L - Prostate, Left apex, biopsy (1) M - Prostate,MRI LESION #1, biopsy (3) CLINICAL INFORMATION Elevated PSA SPECIMEN PROCESSING A - Labeled/Fixative: Prostate right lateral base, formalin. Quantity/Size: Single, 1.4 x 0.1 cm Tissue Description: Prasad-white needle core biopsy. Sections/Processi ng: Entirely submitted in 1 cassette labeled A1. B - Labeled/Fixative: Prostate right lateral mid, formalin. Quantity/Size: Single, 1.5 x 0.1 cm Tissue Description: Prasad-white needle core biopsy. Sections/Processi ng: Entirely submitted in 1 cassette labeled B1. C - Labeled/Fixative: Prostate right lateral apex, formalin. Quantity/Size: Single, 1.4 x 0.1 cm Tissue Description: Prasad-pink needle core biopsy. Sections/Processi ng: Entirely submitted in 1 cassette labeled C1. D - Labeled/Fixative: Prostate right base, formalin. Quantity/Size: Single, 1.6 x 0.1 cm Tissue Description: Prasad-white needle core biopsy. Sections/Processi ng: Entirely submitted in 1 cassette labeled D1. E - Labeled/Fixative: Prostate right mid, formalin. Quantity/Size: Single, 1.7 x 0.1 cm Tissue Description: Prasad-white needle core biopsy. Sections/Processi ng: Entirely submitted in 1 cassette labeled E1. F - Labeled/Fixative: Prostate right apex, formalin. Quantity/Size: Single, 1.5 x 0.1 cm Tissue Description: Prasad-white needle core biopsy. . SPECIMEN PROCESSING Sections/Processi ng: Entirely submitted in 1 cassette labeled F1. G - Labeled/Fixative: Prostate left lateral base, formalin. Quantity/Size: Single, 1.5 x 0.1 cm Tissue Description: Prasad-yellow needle core biopsy. Sections/Processi ng: Entirely submitted in 1 cassette labeled G1. H - Labeled/Fixative: Prostate left lateral mid, formalin. Quantity/Size: Single, 1.6 x 0.1 cm Tissue Description: Prasad-yellow needle core biopsy. Sections/Processi ng: Entirely submitted in 1 cassette labeled H1. I - Labeled/Fixative: Prostate left lateral apex, formalin. Quantity/Size: Single, 1.5 x 0.1 cm Tissue Description: Prasad-white needle core biopsy. Sections/Processi ng: Entirely submitted in 1 cassette labeled I1. J - Labeled/Fixative: Prostate left base, formalin. Quantity/Size: Single, 1.3 x 0.1 cm Tissue Description: Prasad-yellow needle core biopsy. Sections/Processi ng: Entirely submitted in 1 cassette labeled J1. K - Labeled/Fixative: Prostate left mid, formalin. Quantity/Size: Single, 1.0 x 0.1 cm Tissue Description: Prasad-pink needle core biopsy. Sections/Processi ng: Entirely submitted in 1 cassette labeled K1. L - Labeled/Fixative: Prostate left apex, formalin. Quantity/Size: Single, 1.4 x 0.1 cm. Tissue Description: Soft, prasad-pink tissue. Sections/Processi ng: Submitted en toto ??in 1 cassette labeled L1. M - Labeled/Fixative: Prostate MRI lesion #1, formalin. Quantity/Size: Three, averaging 1.5 x 0.1 cm Tissue Description: Prasad-white needle core biopsies. Sections/Processi ng: Entirely submitted in 1 cassette labeled M1. ??pps 12/28/2021 10:58 AM EDT [facility] PROSTATIC STRUCTURE / Unknown 12/20/2021 10:30 AM EDT 12/20/2021 10:30 AM EDT PROSTATIC STRUCTURE / Unknown 12/20/2021 10:30 AM EDT 12/20/2021 10:30 AM EDT PROSTATIC STRUCTURE / Unknown 12/20/2021 10:30 AM EDT 12/20/2021 10:30 AM EDT PROSTATIC STRUCTURE / Unknown 12/20/2021 10:30 AM EDT 12/20/2021 10:30 AM EDT PROSTATIC STRUCTURE / Unknown 12/20/2021 10:30 AM EDT 12/20/2021 10:30 AM EDT PROSTATIC STRUCTURE / Unknown 12/20/2021 10:30 AM EDT 12/20/2021 10:30 AM EDT PROSTATIC STRUCTURE / Unknown 12/20/2021 10:30 AM EDT 12/20/2021 10:30 AM EDT PROSTATIC STRUCTURE / Unknown 12/20/2021 10:30 AM EDT 12/20/2021 10:30 AM EDT PROSTATIC STRUCTURE / Unknown 12/20/2021 10:30 AM EDT 12/20/2021 10:30 AM EDT PROSTATIC STRUCTURE / Unknown 12/20/2021 10:30 AM EDT 12/20/2021 10:30 AM EDT PROSTATIC STRUCTURE / Unknown 12/20/2021 10:30 AM EDT 12/20/2021 10:30 AM EDT PROSTATIC STRUCTURE / Unknown 12/20/2021 10:30 AM EDT 12/20/2021 10:30 AM EDT PROSTATIC STRUCTURE / Unknown 12/20/2021 10:30 AM EDT 12/20/2021 10:30 AM EDT Aj Juarez MD PATHOLOGY/CYTOLOGY ORDERABLES Performing Organization Address City/[facility]/[place] [address] * Specimen to Pathology (12/20/2021 10:30 AM EDT) AP Specimen 12/20/2021 10:3 0 AM EDT 12/20/2021 10:30 AM EDT Narrative [facility] - 12/20/2021 10:30 AM EDT Specimen requisition ordered. ??Separate Pathology report to follow Aj Juarez MD PATHOLOGY/[place] [address] * Specimen to Pathology (12/20/2021 10:30 AM EDT) AP Specimen 12/20/2021 10:3 0 AM EDT 12/20/2021 10:30 AM EDT Narrative [facility] - 12/20/2021 10:30 AM EDT Specimen requisition ordered. ??Separate Pathology report to follow Aj Juarez MD PATHOLOGY/CYTOLOGY ORDERABLES [facility] [place] [address] * Specimen to Pathology (12/20/2021 10:30 AM EDT) AP Specimen 12/20/2021 10:3 0 AM EDT 12/20/2021 10:30 AM EDT Narrative [facility] - 12/20/2021 10:30 AM EDT Specimen requisition ordered. ??Separate Pathology report to follow Aj Juarez MD PATHOLOGY/CYTOLOGY ORDERABLES [facility] [place] [address] * Specimen to Pathology (12/20/2021 10:30 AM EDT) AP Specimen 12/20/2021 10:3 0 AM EDT 12/20/2021 10:30 AM EDT Narrative [facility] - 12/20/2021 10:30 AM EDT Specimen requisition ordered. ??Separate Pathology report to follow Aj Juarez MD PATHOLOGY/CYTOLOGY ORDERABLES Performing Organization Address [facility]/[place] [address] * Specimen to Pathology (12/20/2021 10:30 AM EDT) AP Specimen 12/20/2021 10:3 0 AM EDT 12/20/2021 10:30 AM EDT Narrative [facility] - 12/20/2021 10:30 AM EDT Specimen requisition ordered. ??Separate Pathology report to follow Aj Juarez MD PATHOLOGY/CYTOLOGY ORDERABLES Performing Organization Address [facility] [address] * Specimen to Pathology (12/20/2021 10:30 AM EDT) AP Specimen 12/20/2021 10:3 0 AM EDT 12/20/2021 10:30 AM EDT Narrative [facility] - 12/20/2021 10:30 AM EDT Specimen requisition ordered. ??Separate Pathology report to follow Aj Juarez MD PATHOLOGY/CYTOLOGY ORDERABLES Performing Organization Address [facility] [place] [address] * Specimen to Pathology (12/20/2021 10:30 AM EDT) AP Specimen 12/20/2021 10:3 0 AM EDT 12/20/2021 10:30 AM EDT Narrative [facility] - 12/20/2021 10:30 AM EDT Specimen requisition ordered. ??Separate Pathology report to follow Aj Juarez MD PATHOLOGY/CYTOLOGY ORDERABLES Performing Organization Address [facility] [address] * Specimen to Pathology (12/20/2021 10:30 AM EDT) AP Specimen 12/20/2021 10:3 0 AM EDT 12/20/2021 10:30 AM EDT Narrative [facility] - 12/20/2021 10:30 AM EDT Specimen requisition ordered. ??Separate Pathology report to follow Aj Juarez MD PATHOLOGY/CYTOLOGY ORDERABLES Performing Organization Address [facility] [address] * Specimen to Pathology (12/20/2021 10:30 AM EDT) AP Specimen 12/20/2021 10:3 0 AM EDT 12/20/2021 10:30 AM EDT Narrative [facility] - 12/20/2021 10:30 AM EDT Specimen requisition ordered. ??Separate Pathology report to follow Aj Juarez MD PATHOLOGY/CYTOLOGY ORDERABLES [facility] [place] [address] * Specimen to Pathology (12/20/2021 10:30 AM EDT) AP Specimen 12/20/2021 10:3 0 AM EDT 12/20/2021 10:30 AM EDT Narrative [facility] - 12/20/2021 10:30 AM EDT Specimen requisition ordered. ??Separate Pathology report to follow Aj Juarez MD PATHOLOGY/CYTOLOGY ORDERABLES Performing Organization Address City[facility]/ZIP Co de Phone Number [facility] [place] [address] * Specimen to Pathology (12/20/2021 10:30 AM EDT) AP Specimen 12/20/2021 10:3 0 AM EDT 12/20/2021 10:30 AM EDT Narrative [facility] - 12/20/2021 10:30 AM EDT Specimen requisition ordered. ??Separate Pathology report to follow Aj Juarez MD PATHOLOGY/CYTOLOGY ORDERABLES Performing Organization Address [facility] [address] * Specimen to Pathology (12/20/2021 10:30 AM EDT) AP Specimen 12/20/2021 10:3 0 AM EDT 12/20/2021 10:30 AM EDT Narrative [facility] - 12/20/2021 10:30 AM EDT Specimen requisition ordered. ??Separate Pathology report to follow Aj Juarez MD PATHOLOGY/CYTOLOGY ORDERABLES Performing Organization Address [facility] [address] * Specimen to Pathology (12/20/2021 10:30 AM EDT) AP Specimen 12/20/2021 10:3 0 AM EDT 12/20/2021 10:30 AM EDT Narrative [facility] - 12/20/2021 10:30 AM EDT Specimen requisition ordered. ??Separate Pathology report to follow Aj Juarez MD PATHOLOGY/CYTOLOGY ORDERABLES Performing Organization Address [facility] [place] [address] documented in this encounter Visit Diagnoses Diagnosis Elevated PSA Elevated prostate specific antigen (PSA) documented in this encounter Care Teams Consumer Affairs Specialist Relationship Specialty Start Date End Date Nicolasa Valenzuela PA [address] [place] [address] PCP - General Family Medicine 12/20/21 documented as of this encounter
--- OUTSIDE RECORDS SUMMARY | 2023-10-16 03:19 | XMS_ITS | Encounter Summary ---
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 11/16/21 - IBM TO REBECCA - NEEDS URONAV BIOPSY Estefany Jasso MD [address] [place] [id number] [facility] [place] [address] Referral ID Status Reason Start Date Expiration Date V isits Requested Visits Authorized [id number] Closed Consult, Test & Treat 11/16/2021 11/16/2022 1 1 Encounter Details Date Type Department Care Team (Late st Contact Info) Description 12/20/2021 9:00 AM EDT Procedure visit Hematology [place] [address] Aj Juarez MD [facility] [place] [address] Elevated PSA Social History Tobacco Use Types Packs/Day Years Used Date Smoking Tobacco: Never Assessed Sex and Gender Information Value Date Recorded Sex Assigned at Not on file Gender Identity Not on file Sexual Orientation Not on file documented as of this encounter Last Filed Vital Signs Vital Sign Reading Time Taken Comments Blood Pressure 157/92 12/20/2021 9:28 AM EDT Pulse 70 12/20/2021 9:28 AM EDT Temperature - - Respiratory Rate - - Oxygen Saturation 100% 12/20/2021 9:28 AM EDT Inhaled Oxygen Concentration - - Weight 90.1 kg (198 lb 10.2 oz) 12/20/2021 9:28 AM EDT Height 177.8 cm (5' 10) 12/20/2021 9:28 AM EDT Body Mass Index 28.5 12/20/2021 9:28 AM EDT documented in this encounter Patient Instructions * Patient Instructions* Rebecca Aquino RN - 12/20/2021 9:00 AM EDT PROSTATE BIOPSY DISCHARGE INFORMATION You will get a call next week with your biopsy pathology. Your pathology result may be released to your [facility] account before we have had a chance to contact you. You should feel free to check your [facility] if you would like to see if your pathology has been release. However, by doing so, you may receive your prostate biopsy results PRIOR to us discussing them with you. If you are not comfortable with receiving your pathology prior to our discussion, please de karan from looking at your biopsy results until we can contact you. You should call your doctor if you experience any of the following: You see blood in your urine, bowel movements, or semen outside of the timeframe listed below. You have a temperature greater than 101.5 degrees. You start to pass large clots of blood in your urine or it turns the color of tomato juice. You are having increasing pain. Your doctor may be reached at weekdays from 8 AM to 5 PM. If you should develop any of these symptoms after these hours, please call the hospital road mixer operator at and ask to have the Urology Resident paged or report to the Emergency Department. What do I need to watch out for after the biopsy? You will almost certainly have some blood in your urine. This will generally be gone within 48 hours. However, it may last on and off for up to two weeks. You will almost certainly have some blood in your bowels. This will generally be gone within 48 hours. However, it may last on and off for up to two weeks. You will almost certainly have some blood in your semen or sperm. This may last on and off for up to six weeks. If you have been instructed to take an antibiotic in addition to the antibiotic given to you on theclinic day, please finish the remainder of any prescription ordered. Are there any restrictions after the prostate biopsy? You should take it easy after the biopsy until the blood clears in your urine and stool. Drink extra fluids. We suggest no heavy lifting, straining, or sports until after you stop seeing blood in theurine or stool. You should not have sexual activity for 48 hours after the biopsy. As long as you feel okay, you should be able to drive yourself home from the biopsy. We recommend that you bring someone with you but this is not absolutely necessary. You may resume aspirin and other medications containing aspirin or NSAIDS (Motrin, Advil, naprosyn,etc.) one week after your biopsy. If you are on a blood thinner, such as Coumadin, heparin, or fragmin, please contact your Primary Care Provider after the procedure to see when they wish you to resume medications. It is important you do this because some medications will require a blood test as well. When will I get the results of the biopsy? The biopsy needs to be processed and examined by a pathologist. In general, this takes about a week. Your doctor will then either see you in the office or call you on the telephone to give you the results. If you have not heard a result within 10 days of your biopsy, please call your doctor. What happens if I am found to have prostate cancer? If you are found to have prostate cancer, your doctor will discuss what this means for you. Prostate cancer is very treatable and, in most cases, there are several good treatment options. You will begiven or sent a package of information about the treatment of prostate cancer. An appointment will be made for a follow-up visit one to two weeks after the biopsy result is given to you in order to discuss all the issues in more detail and arrange a treatment plan. What happens if the biopsy does not show prostate cancer? Your doctor will discuss the results of the biopsy with you. Your doctor will give you a recommendation regarding any necessary follow up. documented in this encounter Progress Notes * Rebecca Aquino RN - 12/20/2021 9:00 AM EDT Prostate IPSS and AGNIESZKA(Pt Entered): Today's answers and scores Prostate Scores and Responses 12/20/2021 Confidence, level - past 6 months Moderate Penetration - past 6 months No sexual activity Penetration, maintain - past 6 months Did not attempt intercourse Erection, maintain - past 6 months Did not attempt intercourse Sexual satisfaction - past 6 months Did not attempt intercourse Sexual Health in Men 3 (SEVERE ED) Incomplete emptying Less than 1 time in 5 Frequency About half the time Intermittency Not at all Urgency Less than 1 time in 5 Weak Stream Not at all Straining Not at all Nocturia 4 times Quality of life Mixed - about equally satisfied and dissatisfied Total IPSS Score 9 (MODERATE LUTS) * Jeff Brown MD - 12/20/2021 9:00 AM EDT Outpatient Prostate Biopsy Consent Mr. Keys is a 66 y.o. yo gentleman here for a prostate biopsy. His most recent PSA is 35 (08/16/21) PSA today pending Pertinent Imaging Studies Independenty reviewed and my interpretation is below, results discussed with the patient: MpMRI prostate: PIRADS 5 He has not had any NSAIDS or anticoagulants in the past week. He took his antibiotic this morning. He did his enema this morning. No recent travel outside the [place]. He does not live with anyone who works in [employer] No other recent abx use in the past 6 months. No history of heart valve. He does not have cardiac stents in place. UA: neg Impression: 1) Elevated PSA, PIRADS 5 lesion Plan: 1) I recommend proceeding with TRUS biopsy w/ URONAV Fusion I informed him that given his information reviewed today, I would recommend that he undergo biopsies of the prostate. We discussed alternatives and the risks and benefits of prostate biopsy (including risks of blood in urine, stool, and semen, infection and rarely hospital admission.) Pt was eager to proceed with biopsy and will have this done in clinic today. He knows that we will call him next week with his biopsy pathology and should call us if he does not hear from us-our information was given to him today. He knows when to call us with signs/symptoms of infection and bleeding, and our nurse with review his post biopsy teaching prior to departure from clinic today. * Aj Juarez MD - 12/20/2021 9:00 AM EDT Procedure Note Procedure: Transrectal ultrasound and prostate biopsy with URONAV fusion Surgeon: Aj Juarez Preoperative Diagnosis: Elevated PSA, negative OFELIA, P4 on mpMRI Post Operative Diagnosis: Successful Biopsy Complications: None Procedure: A time out procedure was performed. It was confirmed the patient had a urinanalysis that did not show evidence of a urinary infection prior to the biopsy. It was confirmed that the patient took Levaquin 500mg po ~ 1 hour ago OFELIA revealed a large gland with no nodules The TRUS probe was inserted into the rectum and the prostate imaged in the sagittal and transverse dimensions. Prostate volume was 83 cc. The prostate was homogeneous. Prostate calcifications were observed at the junction of the peripheral and transition zones. Hypochoic areas: Anterior TZ, same area as MR lesion #1 Rectum, periprostatic structures, visualized areas of the bladder, vas deferens and seminal vesicles all appeared normal Prostatic anaesthesia was achieved in the standard fashion. A series of prostatic biopsies were obtained from the lateral apex, mid,and base as well as mid sagittal apex, mid and base. Biopsies were obtained from both the right and left side of the prostate. Additional biopsies: MR Lesion #1 x 3 A total of 15 biopsies were obtained. The patient tolerated the procedure without difficulty. I will contact him in about a weeks time with the results. He understands that if he does not hear from me or has any problems to contact my office. Aj Juarez documented in this encounter Plan of Treatment Upcoming Encounters Date Type Department Care Team (Late st Contact Info) Description 10/16/2023 2:30 PM EDT Office Visit Hematology/Oncology at [address] [phone] Fiordaliza Downing APRN [facility] [place] [address] 11/10/2023 9:00 AM EDT Appointment [place] [address] Thomas Curtis MD [facility] HEMATOLOGY [place] [address] 11/21/2023 11:00 AM EDT Infusion Hematology Oncology at [address] [phone] 12/05/2023 1:30 PM EDT Office Visit Hematology/Oncology at [address] [phone] Thomas Curtis MD [facility] HEMATOLOGY [place] [address] Fiordaliza Downing APRN [facility] [place] [address] 12/26/2023 9:00 AM EDT Appointment [place] [address] Thomas Curtis MD [facility] HEMATOLOGY [place] [address] 02/09/2024 8:00 AM EST Appointment [place] [address] Thomas Curtis MD [facility] HEMATOLOGY [place] [address] 03/18/2024 3:00 PM EST Office Visit Cardiology at [address] [place] [phone] Sameer Rudolph MD [facility] [place] [address] 03/22/2024 9:00 AM EST Appointment [place] [address] Thomas Curtis MD [facility] HEMATOLOGY AND ONCOLOGY [place], [place] [phone] 08/23/2024 Hospital Encounter Main [place] [phone] Aj Juarez MD [facility] UROLOGY [place], [place] [phone] Scheduled Procedures Name Priority Associated Diagnoses Date/Ti me CYSTO, STENT PLACEMENT (WRVU 2.82) Hydronephrosis with ureteral stricture, not elsewhere classified CYSTO, REMOVAL OF STENT, FOR EIGN BODY OR CALCULUS, SIMPLE (WRVU 2.81) Hydronephrosis with ureteral stricture, not elsewhere classified documented as of this encounter Results * US Guided Biopsy [...] Urology who performed multiple biopsies in the clinic location. UroNav fusion was used for this procedure. Thank you for letting us participate in the care of this patient. If you are a health care provider and have any questions regarding this report, please contact the number above. For patients who have questions, please contact the health home care specialist that requested your imaging first. ? Sidney Kline, Staff Physician Electronically Signed Final Report ?? 12/20/2021 02:36 pm Narrative 12/20/2021 2:37 PM EDT Male Pelvis ? (Signed Final 12/20/2021 02:36 pm) PATIENT INFO: ID #: ? [id number] ?: ??[birth year] (66 yrs)(M) Name: ? ROSARIO Kennedy ?Visit Date: 12/20/2021 09:27 am ? NOMI PERFORMED BY: Performed By: ? Claudio Arce RDMS Attending: ?Raisa DOBSON, Sidney Freeman Referred By: ?AJ JUAREZ Location: ? [facility] SERVICE(S) PROVIDED: UTRBXURO - Prostate Biopsy with UroNav Fusion ? [id number] - [id number] INDICATIONS: Elevated PSA 35.3, MRI PIRADs 5 [...] 12/20/2021 02:36 pm) PATIENT INFO: ID #: [id number] : [birth year] (66 yrs)(M) Name: ROSARIO Kennedy Visit Date: 12/20/2021 09:27 am NOMI PERFORMED BY: Performed By: Claudio Arce RDMS Attending: Sidney Kline MD Referred By: AJ JUAREZ Location: [facility] SERVICE(S) PROVIDED: UTRBXURO - Prostate Biopsy with UroNav Fusion [id number], [id number] - [id number] INDICATIONS: Elevated PSA 35.3, MRI PIRADs 5 [...] Urology who performed multiple biopsies in the [address] [place] [address] location. UroNav fusion was used for this procedure. Electronically signed by: Sidney Kline MD, [facility] ([phone]), at 12/20/2021 2:30 PM Thank you for letting us participate in the care of this patient. If you are a health care provider and have any questions regarding this report, please contact the number above. For patients who have questions, please contact the health home care specialist that requested your imaging first. Sidney Kline, Staff Physician Electronically Signed Final Report 12/20/2021 02:36 pm Aj Juarez MD IM US PROC ORDERA BLENiecy documented in this encounter Visit Diagnoses Diagnosis Elevated PSA Elevated prostate specific antigen (PSA) Elevated PSA Elevated prostate specific antigen (PSA) documented in this encounter Administered Medications Inactive Administered Medications - up to 3 most recent administrations Medication Order MAR Action Action Date Dose Rate Site levoFLOXacin (Levaquin) tablet 500 mg 500 mg, Oral, ONCE, 1 dose, On 12/20/21 at 0000, Routine Given 12/20/2021 9:30 AM EDT 500 mg documented in this encounter Care Teams Pediatric Speech Therapist Relationship Specialty Start Date End Date Nicolasa Valenzuela PA [address] [place] [address] PCP - General Family Medicine 12/20/21 documented as of this encounter
--- OUTSIDE RECORDS SUMMARY | 2023-10-16 03:19 | XMS_ITS | Encounter Summary ---
[place] [address] Care Team Providers Care Caseworker Intake Name Role Phone Unknown Primary Care Provider Unavailabl e Reason for Referral * Diagnostic Test (Routine) - Closed Specialty Diagnoses / Procedures Referred By Contac t Referred To Contact Radiology Diagnoses Elevated PSA Procedures MRI Pelvis wwo (Prostate) Estefany Jasso MD [address] [place] [address] [place] [address] Referral ID Status Reason Start Date Expiration Date V isits Requested Visits Authorized [id number] Closed Specialty Service Requested 09/19/2021 03/22/2023 1 1 Reason for Visit * Diagnostic Test (Routine) - Closed Specialty Diagnoses / Procedures Referred By Contac t Referred To Contact Radiology Diagnoses Elevated PSA Procedures MRI Pelvis wwo (Prostate) Estefany Jasso MD [address] [place] [address] [place] [address] Referral ID Status Reason Start Date Expiration Date V isits Requested Visits Authorized [id number] Closed Specialty Service Requested 09/19/2021 03/22/2023 1 1 Encounter Details Date Type Department Care Team (Late st Contact Info) Description 10/26/2021 7:46 AM EDT - 10/26/2021 11:59 PM EDT Hospital [place] [phone] Estefany Jasso MD [address] [place] [address] Elevated PSA Discharge Disposition: Home Social History [...] PM EDT Office Visit Hematology/Oncology at [address] [phone] Fiordaliza Downing APRN [facility] [place] [address] 11/10/2023 9:00 AM EDT Appointment [place] [address] Thomas Curtis MD [facility] HEMATOLOGY [place] [address] 11/21/2023 11:00 AM EDT Infusion Hematology Oncology at [address] [phone] 12/05/2023 1:30 PM EDT Office Visit Hematology/Oncology at [address] [phone] Thomas Curtis MD [facility] DR HEMATOLOGY [place] [address] Fiordaliza Downing APRN [facility] [place] [address] 12/26/2023 9:00 AM EDT Appointment [place] [address] Thomas Curtis MD [facility] HEMATOLOGY [place] [address] 02/09/2024 8:00 AM EST Appointment [place] [address] Thomas Curtis MD [facility] HEMATOLOGY [place] [address] 03/18/2024 3:00 PM EST Office Visit Cardiology at [address] [place] [phone] Sameer Rudolph MD [facility] [place] [address] 03/22/2024 9:00 AM EST Appointment [place] [address] Thomas Curtis MD [facility] HEMATOLOGY [place] [address] 08/23/2024 Hospital Encounter [place] [address] True Juarez MD [facility] UROLOGY [place] [phone] Scheduled Procedures Name Priority Associated Diagnoses Date/Ti me CYSTO, STENT PLACEMENT (WRVU 2.82) Hydronephrosis with ureteral stricture, not elsewhere classified CYSTO, REMOVAL OF STENT, FOR EIGN BODY OR CALCULUS, SIMPLE (WRVU 2.81) Hydronephrosis with ureteral stricture, not elsewhere classified documented as of this encounter Procedures Procedure Name Priority Date/Time Associated Diagnosis Comments MRI PELVIS WWO (PROSTATE) Routine 10/26/2021 9:05 AM EDT Elevated PSA documented in this encounter Results * MRI Pelvis wwo (Prostate) (10/26/2021 9:05 AM EDT) Anatomical Region Laterality Modality Pelvis Magnetic Resonan ce Impressions 10/27/2021 3:58 PM EDT Lesion 1 TZ: PI-RADS 5. ??T2 location: axial series 10, image 24; sagittal series 8, image 19. Segmented in UroNav. PI-RADS v2.1 Assessment Categories PI-RADS 1 -- Very low (clinically significant cancer is highly unlikely to be present) PI-RADS 2 -- Low (clinically significant cancer is unlikely to be present) PI-RADS 3 -- Intermediate (the presence of clinically significant cancer is equivocal) PI-RADS 4 -- High (clinically significant cancer is likely to be present) PI-RADS 5 -- Very high (clinically significant cancer is highly likely to be present) References: Artem S1, Ozzie JH1, Du S1, Arevalo C1, Osorio J1, Mauricenivenkata M1, Gold S1, Baca G1, Rayn K1, Antonio MJ1, Redd BJ1, Maya PA1, Jaycob PL1, Richard B1. ??A Grading System for the Assessment of Risk of Extraprostatic Extension of Prostate Cancer at Multiparametric MRI. Radiology. 2019 Mar;290(3):709-715. doi: 10.1148/radiol.1436789436. Epub 2018Mar 27. I have personally reviewed the image(s) and the resident's interpretation and agree with the findings, Yariel Miller MD at 10/27/2021 3:58 PM Thank you for letting us participate in the care of this patient. ??If you are a health care provider and have any questions regarding this report, please contact the number below. ??For patients who have questions please contact the health respiratory care technician that requested your imaging first. ? Narrative 10/27/2021 3:58 PM EDT EXAMINATION: MRI PELVIS WWO (PROSTATE) CLINICAL HISTORY: Elevated PSA REASON FOR PROSTATE EXAM:Elevated PSA HAS PATIENT HAD PREVIOUS BIOPSY?:No MOST RECENT PSA LEVEL:35.388 TECHNIQUE: Multiparametric MRI of the prostate prior to and following IV administration of 19 cc of Dotarem contrast. ?? QUALITY: Meets PI-RADS technical criteria. COMPARISON: None FINDINGS: Prostate dimensions: 5.3 x 4.7 x 5.6cm. Estimated prostate volume: 72.5cc (X x Y x Z x 0.52) PSA density: 0.50 (PSA/prostate volume >0.15 susp, 0.25 highly susp) Peripheral zone: No focal lesions. Transition zone: Lesion 1. Bilateral TZ in the base and mid gland, 25 x 35 mm on series 10 image 24. T2: Non-circumscribed, homogeneous, moderately hypointense mass PI-RADs: 5. DWI: ??No abnormality on ADC and high b-value DWI. PI-RADs: 1. DCE-MRI: ??(-) No early arterial enhancement. ? Combined PI-RADs: 5. Extraprostatic disease: Seminal vesicle involvement:No Lymphadenopathy:No Sphincter involvement:No Bladder involvement:No Osseous metastases: No . MRI-derived Extraprostatic extension risk: Grade 1: 24.3% (Curvilinear contact length) Other findings: Bilateral fat-containing inguinal hernias larger on the left. Procedure Note Yariel Miller MD - 10/27/2021 EXAMINATION: MRI PELVIS WWO (PROSTATE) CLINICAL HISTORY: Elevated PSA REASON FOR PROSTATE EXAM:Elevated PSA HAS PATIENT HAD PREVIOUS BIOPSY?:No MOST RECENT PSA LEVEL:35.388 TECHNIQUE: Multiparametric MRI of the prostate prior to and following IV administration of 19 cc of Dotarem contrast. QUALITY: Meets PI-RADS technical criteria. COMPARISON: None FINDINGS: Prostate dimensions: 5.3 x 4.7 x 5.6cm. Estimated prostate volume: 72.5cc (X x Y x Z x 0.52) PSA density: 0.50 (PSA/prostate volume >0.15 susp, 0.25 highly susp) Peripheral zone: No focal lesions. Transition zone: Lesion 1. Bilateral TZ in the base and mid gland, 25 x 35 mm on series 10image 24. T2: Non-circumscribed, homogeneous, moderately hypointense mass PI-RADs: 5. DWI: No abnormality on ADC and high b-value DWI. PI-RADs: 1. DCE-MRI: (-) No early arterial enhancement. Combined PI-RADs: 5. Extraprostatic disease: Seminal vesicle involvement:No Lymphadenopathy:No Sphincter involvement:No Bladder involvement:No Osseous metastases: No . MRI-derived Extraprostatic extension risk: Grade 1: 24.3% (Curvilinearcontact length) Other findings: Bilateral fat-containing inguinal hernias larger on theleft. IMPRESSION Lesion 1 TZ: PI-RADS 5. T2 location: axial series 10, image 24; sagittal series 8, image 19. Segmented in UroNav. PI-RADS v2.1 Assessment Categories PI-RADS 1 -- Very low (clinically significant cancer is highly unlikely dalia present) PI-RADS 2 -- Low (clinically significant cancer is unlikely to bepresent) PI-RADS 3 -- Intermediate (the presence of clinically significant canceris equivocal) PI-RADS 4 -- High (clinically significant cancer is likely to bepresent) PI-RADS 5 -- Very high (clinically significant cancer is highly likely dalia present) References: Mexavi S1, Ozzie JH1, Sandy S1, Arevalo C1, Osorio J1, Czarnivenkata M1,Gold S1, Baca G1, Rayn K1, Paco MJ1, Wood BJ1, Trejo PA1, Jaycob PL1, Richard B1.A Grading System for the Assessment of Risk of Extraprostatic Extension of Prostate Cancer at Multiparametric MRI. Radiology. 2019Mar;290(3):709-719. doi: 10.1148/radiol.8191450242. Epub 2018Mar 27. I have personally reviewed the image(s) and the resident's interpretationand agree with the findings, Yariel Miller MD at 10/27/2021 3:58 PM Thank you for letting us participate in the care of this patient. If youare a health care provider and have any questions regarding this report,please contact the number below. For patients who have questions please contactthe health respiratory care technician that requested your imaging first. Estefany Jasso MD [facility] MRI ORDERABLES documented in this encounter Visit Diagnoses Diagnosis Elevated PSA Elevated prostate specific antigen (PSA) documented in this encounter Administered Medications Inactive Administered Medications - up to 3 most recent administrations Medication Order MAR Action Action Date Dose Rate Site gadoterate meglumine (Dotarem) (0.5 mMol/mL) injection solution 0-100 mL 0-100 mL, Intravenous, ONCE PRN, 1 dose, Starting on Mon10/26/21 at 0853, Until Mon10/26/21 at 0903, Per Protocol, Radiology Contrast, Routine Given 10/26/2021 9:03 AM EDT 19 mLs documented in this encounter Care Teams Caseworker Intake Relationship Specialty Start Date End Date Unknown None PCP - General 03/06/18 12/19/21 documented as of this encounter
--- OUTSIDE RECORDS SUMMARY | 2023-10-16 03:19 | XMS_ITS | Encounter Summary ---
Author Organization Formerly [facility] [place] [address] Care Team Providers Care Chart Picker Name Role Phone Unknown Primary Care Provider Unavailabl e Encounter Details Date Type Department Care Team (Late st Contact Info) Description 12/13/2021 Ancillary Procedure Radiology at [facility] [address] [place] [phone] Bebe Hatfield MD [address] [facility] [address] [place] [address] Social History Tobacco Use Types Packs/Day Years [...] PM EDT Office Visit Hematology/Oncology at [address] [phone] Fiordaliza Downing APRN [facility] [place] [address] 11/10/2023 9:00 AM EDT Appointment [place] [phone] Thomas Curtis MD [facility] [place] [address] 11/21/2023 11:00 AM EDT Infusion Hematology Oncology at [address] [phone] 12/05/2023 1:30 PM EDT Office Visit Hematology/Oncology at [address] [phone] Thomas Curtis MD [facility] [address] [place] [address] Fiordaliza Downing APRN [facility] [place] [place] [address] 12/26/2023 9:00 AM EDT Appointment [place] [phone] Thomas Curtis MD [facility] [place] [address] 02/09/2024 8:00 AM EST Appointment [place] [phone] Thomas Curtis MD [facility] [place] [address] 03/18/2024 3:00 PM EST Office Visit Cardiology at [address] [place] [phone] Sameer Rudolph MD [facility] [place] [address] 03/22/2024 9:00 AM EST Appointment [place] [phone] Thomas Curtis MD [facility] [place] [address] 08/23/2024 Hospital Encounter Main Operating Room [facility] [place] [phone] True Juarez MD [facility] [place] [address] Scheduled Procedures Name Priority Associated Diagnoses Date/Ti me CYSTO, STENT PLACEMENT (WRVU 2.82) Hydronephrosis with ureteral stricture, not elsewhere classified CYSTO, REMOVAL OF STENT, FOR EIGN BODY OR CALCULUS, SIMPLE (WRVU 2.81) Hydronephrosis with ureteral stricture, not elsewhere classified documented as of this encounter Procedures Procedure Name Priority Date/Time Associated Diagnosis Comments FILM LIBRARY STORAGE ONLY DX SPINE Routine 12/13/2021 12:00 AM EDT documented in this encounter Results * Film Library- Storage Only DX Spine (12/13/2021 12:00 AM EDT) Narrative [facility] - 12/24/2021 11:18 AM EDT This exam is auto-finalizing. It's purpose is for storage only. Bebe Hatfield MD [facility] FILM LIBRARY ORDERABLES [place], [place] documented in this encounter Visit Diagnoses Not on filedocumented in this encounter Care Teams Chart Picker Relationship Specialty Start Date End Date Unknown None PCP - General 03/06/18 12/19/21 documented as of this encounter
--- OUTSIDE RECORDS SUMMARY | 2023-10-16 03:19 | XMS_ITS | Encounter Summary ---
Author Organization [facility] [place] [address] Care Team Providers Care Fruit Stuffer Name Role Phone Unknown Primary Care Provider Unavailabl e Encounter Details Date Type Department Care Team (Late st Contact Info) Description 11/16/2021 [place] [phone] True Juarez MD [facility] [place] [address] Elevated PSA Social History Tobacco Use Types [...] PM EDT Office Visit Hematology/Oncology at [address] [phone] Fiordaliza Downing APRN [facility] [place] [address] 11/10/2023 9:00 AM EDT Appointment [place] [phone] Thomas Curtis MD [facility] DR HEMATOLOGY [place] [address] 11/21/2023 11:00 AM EDT Infusion Hematology Oncology at [address] [phone] 12/05/2023 1:30 PM EDT Office Visit Hematology/Oncology at [address] [phone] Thomas Curtis MD [facility] HEMATOLOGY [place] [address] Fiordaliza Downing APRN [facility] [place] [address] 12/26/2023 9:00 AM EDT Appointment [place] [phone] Thomas Curtis MD [facility] HEMATOLOGY [place] [address] 02/09/2024 8:00 AM EST Appointment [place] [phone] Thomas Curtis MD [facility] HEMATOLOGY [place] [address] 03/18/2024 3:00 PM EST Office Visit Cardiology at [address] [phone] Sameer Rudolph MD [facility] [place] [address] 03/22/2024 9:00 AM EST Appointment [place] [phone] Thomas Curtis MD [facility] DR HEMATOLOGY [place] [address] 08/23/2024 Hospital Encounter [place] [phone] True Juarez MD [facility] [place] [address] Scheduled Procedures Name Priority Associated Diagnoses Date/Ti me CYSTO, STENT PLACEMENT (WRVU 2.82) Hydronephrosis with ureteral stricture, not elsewhere classified CYSTO, REMOVAL OF STENT, FOR EIGN BODY OR CALCULUS, SIMPLE (WRVU 2.81) Hydronephrosis with ureteral stricture, not elsewhere classified documented as of this encounter Results * (ABNORMAL) PSA (Ultrasensitive) (12/20/2021 9:13 AM EDT) Prostate Specific Antigen (Ultrasensitive) 111.00(H) 0.00 - 4.00 ng/mL [facility] Comment: PLEASE NOTE: The above reference interval is intended for healthy males with an intact prostate. Values within this reference interval may indicate recurrence in men who have undergone radical prostatectomy. This result was generated using a Nory Nunu immunoassay. ??Results obtained from other methods or manufacturers cannot be used interchangeably with this method. Blood 12/20/2021 9:13 AM EDT 12/20/2021 9:25 AM EDT Narrative Resulting Agency Comment Spec In Lab True Juarez MD CHEMISTRY ORDERABL ES [facility] [place] [address] documented in this encounter Visit Diagnoses Diagnosis Elevated PSA Elevated prostate specific antigen (PSA) documented in this encounter Care Teams Fruit Stuffer Relationship Specialty Start Date End Date Unknown None PCP - General 03/06/18 12/19/21 documented as of this encounter
--- OUTSIDE RECORDS SUMMARY | 2023-10-16 03:19 | XMS_ITS | Encounter Summary ---
Author Organization [facility] [place] [address] Care Team Providers Care Event Technician Name Role Phone Nicolasa Valenzuela Primary Care Pro vider Encounter Details Date Type Department Care Team (Latest Contact Info) Description 12/20/2021 8:00 AM EDT - 12/20/2021 8:59 AM EDT Hospital Encounter [place]ology [place] [address] Elevated PSA Discharge Disposition: Home Social History [...] PM EDT Office Visit Hematology/Oncology at [address] [phone] Fiordaliza Downing APRN [facility] [place] [address] 11/10/2023 9:00 AM EDT Appointment [place] [address] Thomas Curtis MD [facility] [place] [address] 11/21/2023 11:00 AM EDT Infusion Hematology Oncology at [address] [phone] 12/05/2023 1:30 PM EDT Office Visit Hematology/Oncology at [address] [phone] Thomas Curtis MD [facility] [place] [address] Fiordaliza Downing APRN [facility] [place] [address] 12/26/2023 9:00 AM EDT Appointment [place] [phone] Thomas Curtis MD [facility] [place] [address] 02/09/2024 8:00 AM EST Appointment [place] [address] Thomas Curtis MD [facility] DR [place] [address] 03/18/2024 3:00 PM EST Office Visit Cardiology at [address] [place] [phone] Sameer Rudolph MD [facility] [place] [address] 03/22/2024 9:00 AM EST Appointment [place] [phone] Thomas Curtis MD [facility] [place] [address] 08/23/2024 Hospital Encounter [place] [address] True Juarez MD [facility] [place] [address] Scheduled Procedures Name Priority Associated Diagnoses Date/Ti me CYSTO, STENT PLACEMENT (WRVU 2.82) Hydronephrosis with ureteral stricture, not elsewhere classified CYSTO, REMOVAL OF STENT, FOR EIGN BODY OR CALCULUS, SIMPLE (WRVU 2.81) Hydronephrosis with ureteral stricture, not elsewhere classified documented as of this encounter Procedures Procedure Name Priority Date/Time Associated Diagnosis Comments HC PROSTATE SPECIFIC ANTIGEN STAT 12/20/2021 9:13 AM EDT Elevated PSA documented in this encounter Results * (ABNORMAL) PSA (Ultrasensitive) (12/20/2021 9:13 AM EDT) Prostate Specific Antigen (Ultrasensitive) 111.00(H) 0.00 - 4.00 ng/mL [facility] Comment: PLEASE NOTE: The above [...] Lab True Juarez MD CHEMISTRY ORDERABL ES [facility] [place] [address] documented in this encounter Visit Diagnoses Diagnosis Elevated PSA Elevated prostate specific antigen (PSA) documented in this encounter Care Teams Event Technician Relationship Specialty Start Date End Date Nicolasa Valenzuela PA [address] [place] [address] PCP - General Family Medicine 12/20/21 documented as of this encounter
[2023-10-16] MEDS: Normal Saline Flush 10 ML SYR IVP (14:30)
[2023-10-16 14:36] LABS: Absolute Basophil Count 0.05 10^3/uL (0.0-0.2); Absolute Eosinophil Count 0.67 10^3/uL (0.0-0.7); Absolute Lymphocyte Count 0.85 10^3/uL (1.2-3.4); Absolute Monocyte Count 0.66 10^3/uL (0.1-0.8); Absolute Neutrophil Count 2.68 10^3/uL (1.2-6.7); Eosinophils % 13.6 %; HCT 28.3 % (40.0-50.0); HGB 9.2 g/dL (13.5-17.5); Lymphocytes % 17.3 %; MCH 28.9 pg (27.0-33.0); MCHC 32.5 % (32.0-36.0); MCV 89 fL (80-95); MPV 9.1 fL (8.0-11.0); Monocytes % 13.4 %; Neutrophils % 54.7 %; Platelet Count 420 10^3/uL (130-400); RBC 3.18 10^6/uL (4.36-5.78); RDW-SD 49.4 fL; WBC 4.91 10^3/uL (4.4-10.8)
[2023-10-16 15:00] LABS: ALT 23 U/L (16-63); AST 37 U/L (15-37); Albumin 3.2 g/dL (3.4-5.0); Alkaline Phosphatase 79 U/L (46-116); Anion Gap 9.5 mmol/L (3-11); BUN 34 mg/dL (7-18); Bilirubin, Total 0.29 mg/dL (0.2-1.0); CO2 23.5 mmol/L (21.0-32.0); CREATININE 1.7 mg/dL (0.70-1.30); Calcium 9.5 mg/dL (8.5-10.1); Chloride 101 mmol/L (98-107); Glucose 123 mg/dL (74-106); Potassium 4.7 mmol/L (3.5-5.1); Sodium 134 mmol/L (136-145); Total Protein 8.4 g/dL (6.4-8.2)
[2023-10-18 11:25] LABS: PSA, Ultrasensitive 203 ng/mL (<= 4.5)
[2023-10-22 12:21] LABS: Testosterone, Total <7.0 ng/dL (240-950)
[2023-10-27] MEDS: Normal Saline Flush 10 ML SYR IVP (10:27)
[2023-10-27 10:48] LABS: Abs Immature Grans 0.03 10^3/uL (0.0-0.06); Absolute Basophil Count 0.07 10^3/uL (0.0-0.2); Absolute Eosinophil Count 0.22 10^3/uL (0.0-0.7); Absolute Lymphocyte Count 1.44 10^3/uL (1.2-3.4); Absolute Monocyte Count 1.16 10^3/uL (0.1-0.8); Absolute Neutrophil Count 6.14 10^3/uL (1.2-6.7); Basophils % 0.8 %; Eosinophils % 2.4 %; HCT 27.7 % (40.0-50.0); Immature Grans % 0.3 %; Lymphocytes % 15.9 %; MCH 29.3 pg (27.0-33.0); MCHC 32.5 % (32.0-36.0); MCV 90 fL (80-95); MPV 8.9 fL (8.0-11.0); Monocytes % 12.8 %; Neutrophils % 67.8 %; Platelet Count 375 10^3/uL (130-400); RBC 3.07 10^6/uL (4.36-5.78); RDW 14.7 % (11.8-14.1); RDW-SD 48.7 fL; WBC 9.06 10^3/uL (4.4-10.8)
[2023-10-27 11:11] LABS: ALT 12 U/L (16-63); AST 33 U/L (15-37); Albumin 2.8 g/dL (3.4-5.0); Alkaline Phosphatase 76 U/L (46-116); Anion Gap 10.8 mmol/L (3-11); BUN 31 mg/dL (7-18); CO2 20.2 mmol/L (21.0-32.0); CREATININE 1.9 mg/dL (0.70-1.30); Calcium 9.3 mg/dL (8.5-10.1); Chloride 100 mmol/L (98-107); Estimated GFR 37.71 (mL/min/1.73m2); Glucose 170 mg/dL (74-106); Potassium 4.3 mmol/L (3.5-5.1); Sodium 131 mmol/L (136-145); Total Protein 8.2 g/dL (6.4-8.2)
[2023-10-30 22:24] LABS: PSA, Ultrasensitive 183 ng/mL (<= 4.5)
[2023-10-31 12:18] LABS: Testosterone, Total <7.0 ng/dL (240-950)
== END 2023-11-04 23:59 | disposition home or self-care (01) ==
LOC: INF 00:28
PROVIDERS: Nurse Practitioner; PCP Nurse Practitioner Family; Visit Provider Internal Medicine
DX: C61 Malignant neoplasm of prostate (principal); C79.51 Secondary malignant neoplasm of bone; Z45.2 Encounter for adjustment and management of vascular access device
CPT/HCPCS: 36591; 80053; 84153; 84403; 85025

== ENCOUNTER 2023-11-28 11:00 | Outpatient (RCR) | payer MEDICARE, SELFPAY ==
[2023-11-28] MEDS: Normal Saline Flush 10 ML SYR IVP (11:14)
[2023-11-28 11:24] LABS: Abs Immature Grans 0.01 10^3/uL (0.0-0.06); Absolute Basophil Count 0.05 10^3/uL (0.0-0.2); Absolute Eosinophil Count 0.32 10^3/uL (0.0-0.7); Absolute Lymphocyte Count 0.77 10^3/uL (1.2-3.4); Basophils % 1.2 %; Eosinophils % 7.5 %; HCT 25.1 % (40.0-50.0); HGB 8.3 g/dL (13.5-17.5); Immature Grans % 0.2 %; Lymphocytes % 18.1 %; MCH 29.5 pg (27.0-33.0); MCHC 33.1 % (32.0-36.0); MCV 89 fL (80-95); MPV 8.7 fL (8.0-11.0); Monocytes % 14.1 %; Neutrophils % 58.9 %; Platelet Count 406 10^3/uL (130-400); RBC 2.81 10^6/uL (4.36-5.78); RDW 15.4 % (11.8-14.1); RDW-SD 50.5 fL; WBC 4.25 10^3/uL (4.4-10.8)
[2023-11-28 11:39] LABS: ALT 14 U/L (16-63); AST 27 U/L (15-37); Albumin 2.8 g/dL (3.4-5.0); Alkaline Phosphatase 70 U/L (46-116); Anion Gap 11.2 mmol/L (3-11); BUN 33 mg/dL (7-18); Bilirubin, Total 0.44 mg/dL (0.2-1.0); CO2 22.8 mmol/L (21.0-32.0); CREATININE 1.8 mg/dL (0.70-1.30); Calcium 9.1 mg/dL (8.5-10.1); Chloride 101 mmol/L (98-107); Estimated GFR 40.24 (mL/min/1.73m2); Glucose 111 mg/dL (74-106); Potassium 4.9 mmol/L (3.5-5.1); Sodium 135 mmol/L (136-145)
[2023-11-30 10:43] LABS: PSA, Ultrasensitive 219 ng/mL (<= 4.5)
[2023-12-01 16:00] LABS: Testosterone, Total <7.0 ng/dL (240-950)
== END 2023-12-04 23:59 | disposition home or self-care (01) ==
LOC: INF 11:00
PROVIDERS: Nurse Practitioner; PCP Nurse Practitioner Family; Visit Provider Internal Medicine
DX: C61 Malignant neoplasm of prostate (principal)
CPT/HCPCS: 36591; 80053; 84153; 84403; 85025

== ENCOUNTER 2023-12-19 01:56 | Outpatient (RCR) | payer MEDICARE, SELFPAY ==
[2023-12-05] MEDS: Normal Saline Flush 10 ML SYR IVP (15:17)
[2023-12-05 15:39] LABS: Abs Immature Grans 0.04 10^3/uL (0.0-0.06); Absolute Basophil Count 0.07 10^3/uL (0.0-0.2); Absolute Eosinophil Count 0.19 10^3/uL (0.0-0.7); Absolute Lymphocyte Count 1.23 10^3/uL (1.2-3.4); Absolute Monocyte Count 1.11 10^3/uL (0.1-0.8); Absolute Neutrophil Count 7.44 10^3/uL (1.2-6.7); Basophils % 0.7 %; Eosinophils % 1.9 %; HCT 25.7 % (40.0-50.0); HGB 8.2 g/dL (13.5-17.5); Immature Grans % 0.4 %; Lymphocytes % 12.2 %; MCHC 31.9 % (32.0-36.0); MCV 91 fL (80-95); MPV 8.9 fL (8.0-11.0); Neutrophils % 73.8 %; Platelet Count 432 10^3/uL (130-400); RBC 2.83 10^6/uL (4.36-5.78); RDW 15.3 % (11.8-14.1); RDW-SD 50.2 fL; WBC 10.08 10^3/uL (4.4-10.8)
[2023-12-13] MEDS: Normal Saline Flush 10 ML SYR IVP (08:38)
[2023-12-13 08:44] LABS: Abs Immature Grans 0.01 10^3/uL (0.0-0.06); Absolute Basophil Count 0.06 10^3/uL (0.0-0.2); Absolute Eosinophil Count 0.41 10^3/uL (0.0-0.7); Absolute Lymphocyte Count 0.71 10^3/uL (1.2-3.4); Absolute Monocyte Count 0.58 10^3/uL (0.1-0.8); Absolute Neutrophil Count 3.67 10^3/uL (1.2-6.7); Basophils % 1.1 %; Eosinophils % 7.5 %; HCT 24.4 % (40.0-50.0); HGB 7.8 g/dL (13.5-17.5); Immature Grans % 0.2 %; Lymphocytes % 13.1 %; MCH 28.9 pg (27.0-33.0); MCV 90 fL (80-95); MPV 8.5 fL (8.0-11.0); Monocytes % 10.7 %; Neutrophils % 67.4 %; Platelet Count 441 10^3/uL (130-400); RDW 15.3 % (11.8-14.1); RDW-SD 50.4 fL; WBC 5.44 10^3/uL (4.4-10.8)
[2023-12-13 09:04] LABS: Diff Comment Diff Reviewed; Hypochromasia 2+
[2023-12-13 11:13] VITALS: BP 102/65; PULSE 72; RESP 17; TEMP 36.2; O2SAT 99
[2023-12-13 11:28] VITALS: BP 109/68; PULSE 72; RESP 17; TEMP 36.3; O2SAT 94
[2023-12-13 11:43] VITALS: BP 114/66; PULSE 67; RESP 17; TEMP 36.5; O2SAT 100
[2023-12-13 12:13] VITALS: BP 94/61; PULSE 75; RESP 17; TEMP 36.3; O2SAT 100
[2023-12-13 12:43] VITALS: BP 110/69; PULSE 66; RESP 17; TEMP 36.3; O2SAT 100
[2023-12-13 13:15] VITALS: BP 112/68; PULSE 65; RESP 17; TEMP 36.2; O2SAT 100
[2023-12-19 12:01] LABS: Abs Immature Grans 0.01 10^3/uL (0.0-0.06); Absolute Basophil Count 0.06 10^3/uL (0.0-0.2); Absolute Eosinophil Count 0.26 10^3/uL (0.0-0.7); Absolute Lymphocyte Count 0.78 10^3/uL (1.2-3.4); Absolute Neutrophil Count 3.65 10^3/uL (1.2-6.7); Basophils % 1.1 %; Eosinophils % 4.8 %; HCT 26.7 % (40.0-50.0); HGB 8.5 g/dL (13.5-17.5); Immature Grans % 0.2 %; Lymphocytes % 14.3 %; MCH 28.6 pg (27.0-33.0); MCHC 31.8 % (32.0-36.0); MCV 90 fL (80-95); MPV 8.7 fL (8.0-11.0); Monocytes % 12.8 %; Neutrophils % 66.8 %; Platelet Count 491 10^3/uL (130-400); RBC 2.97 10^6/uL (4.36-5.78); RDW 15.2 % (11.8-14.1); RDW-SD 50.4 fL; WBC 5.46 10^3/uL (4.4-10.8)
[2023-12-19] MEDS: Normal Saline Flush 10 ML SYR IVP (12:11)
== END 2024-01-04 23:59 | disposition home or self-care (01) ==
LOC: INF 01:56
PROVIDERS: PCP Nurse Practitioner Family; Visit Provider Internal Medicine
DX: C61 Malignant neoplasm of prostate (principal); Z45.2 Encounter for adjustment and management of vascular access device
CPT/HCPCS: 36430; 36591; 86850; 86900; 86901; 86920; 85025; P9016

== ENCOUNTER 2024-01-23 02:45 | Outpatient (RCR) | payer MEDICARE, SELFPAY ==
[2024-01-05 00:30] VITALS: BP 112/68; PULSE 65; RESP 17; TEMP 36.2
[2024-01-09 12:31] LABS: Abs Immature Grans 0.02 10^3/uL (0.0-0.06); Absolute Basophil Count 0.07 10^3/uL (0.0-0.2); Absolute Eosinophil Count 0.31 10^3/uL (0.0-0.7); Absolute Lymphocyte Count 0.75 10^3/uL (1.2-3.4); Absolute Monocyte Count 0.87 10^3/uL (0.1-0.8); Absolute Neutrophil Count 5.36 10^3/uL (1.2-6.7); Basophils % 0.9 %; Eosinophils % 4.2 %; HCT 26.3 % (40.0-50.0); HGB 8.7 g/dL (13.5-17.5); Immature Grans % 0.3 %; Lymphocytes % 10.2 %; MCH 28.9 pg (27.0-33.0); MCHC 33.1 % (32.0-36.0); MCV 87 fL (80-95); MPV 8.5 fL (8.0-11.0); Monocytes % 11.8 %; Neutrophils % 72.6 %; Platelet Count 468 10^3/uL (130-400); RBC 3.01 10^6/uL (4.36-5.78); RDW 16.6 % (11.8-14.1); RDW-SD 52.5 fL; WBC 7.38 10^3/uL (4.4-10.8)
[2024-01-09 12:45] LABS: ALT 11 U/L (16-63); AST 51 U/L (15-37); Albumin 2.7 g/dL (3.4-5.0); Alkaline Phosphatase 76 U/L (46-116); Anion Gap 9.4 mmol/L (3-11); BUN 39 mg/dL (7-18); Bilirubin, Total 0.33 mg/dL (0.2-1.0); CO2 22.6 mmol/L (21.0-32.0); CREATININE 1.8 mg/dL (0.70-1.30); Calcium 9.5 mg/dL (8.5-10.1); Chloride 102 mmol/L (98-107); Estimated GFR 40.24 (mL/min/1.73m2); Glucose 149 mg/dL (74-106); Potassium 5.2 mmol/L (3.5-5.1); Sodium 134 mmol/L (136-145); Total Protein 8.1 g/dL (6.4-8.2)
[2024-01-12 15:00] LABS: Testosterone, Total <7.0 ng/dL (240-950)
[2024-01-13 16:08] LABS: PSA, Ultrasensitive 378 ng/mL (<= 4.5)
[2024-01-23 11:36] LABS: Abs Immature Grans 0.06 10^3/uL (0.0-0.06); Absolute Basophil Count 0.02 10^3/uL (0.0-0.2); Absolute Eosinophil Count 0.03 10^3/uL (0.0-0.7); Absolute Lymphocyte Count 0.76 10^3/uL (1.2-3.4); Absolute Monocyte Count 0.87 10^3/uL (0.1-0.8); Basophils % 0.2 %; Eosinophils % 0.3 %; HCT 27.3 % (40.0-50.0); HGB 8.7 g/dL (13.5-17.5); Immature Grans % 0.6 %; Lymphocytes % 7.3 %; MCH 28.9 pg (27.0-33.0); MCHC 31.9 % (32.0-36.0); MCV 91 fL (80-95); MPV 8.5 fL (8.0-11.0); Monocytes % 8.3 %; Neutrophils % 83.3 %; Platelet Count 483 10^3/uL (130-400); RBC 3.01 10^6/uL (4.36-5.78); RDW 17.1 % (11.8-14.1); RDW-SD 56.2 fL; WBC 10.44 10^3/uL (4.4-10.8)
[2024-01-23] MEDS: Normal Saline Flush 10 ML SYR IVP (12:40)
== END 2024-02-03 23:59 | disposition home or self-care (01) ==
LOC: INF 02:45
PROVIDERS: PCP Nurse Practitioner Family; Visit Provider Internal Medicine
DX: C61 Malignant neoplasm of prostate (principal); Z45.2 Encounter for adjustment and management of vascular access device
CPT/HCPCS: 36591; 80053; 84153; 84403; 86850; 86900; 86901; 85025

== ENCOUNTER 2024-02-26 10:00 | Outpatient (RCR) | payer MEDICARE, SELFPAY ==
[2024-02-04 00:11] VITALS: BP 112/68; PULSE 65; RESP 17; TEMP 36.2
[2024-02-06 12:52] LABS: Abs Immature Grans 0.04 10^3/uL (0.0-0.06); Absolute Basophil Count 0.03 10^3/uL (0.0-0.2); Absolute Eosinophil Count 0.09 10^3/uL (0.0-0.7); Absolute Monocyte Count 0.41 10^3/uL (0.1-0.8); Basophils % 0.3 %; HCT 26.9 % (40.0-50.0); HGB 8.5 g/dL (13.5-17.5); Immature Grans % 0.4 %; Lymphocytes % 5.6 %; MCH 29.3 pg (27.0-33.0); MCHC 31.6 % (32.0-36.0); MCV 93 fL (80-95); MPV 8.6 fL (8.0-11.0); Monocytes % 4.6 %; Neutrophils % 88.1 %; Platelet Count 367 10^3/uL (130-400); RDW 18.8 % (11.8-14.1); RDW-SD 64.3 fL; WBC 8.97 10^3/uL (4.4-10.8)
[2024-02-06 12:54] LABS: ALT 13 U/L (16-63); AST 32 U/L (15-37); Albumin 2.8 g/dL (3.4-5.0); Alkaline Phosphatase 61 U/L (46-116); Anion Gap 10.9 mmol/L (3-11); BUN 42 mg/dL (7-18); Bilirubin, Total 0.33 mg/dL (0.2-1.0); CO2 23.1 mmol/L (21.0-32.0); CREATININE 1.7 mg/dL (0.70-1.30); Calcium 8.9 mg/dL (8.5-10.1); Chloride 104 mmol/L (98-107); Glucose 204 mg/dL (74-106); Potassium 4.8 mmol/L (3.5-5.1); Sodium 138 mmol/L (136-145); Total Protein 7.2 g/dL (6.4-8.2)
[2024-02-08 14:09] LABS: PSA, Ultrasensitive 458 ng/mL (<= 4.5)
[2024-02-11 15:05] LABS: Testosterone, Total <7.0 ng/dL (240-950)
[2024-02-26 08:40] LABS: HCT 23.8 % (40.0-50.0); HGB 7.5 g/dL (13.5-17.5); MCH 30.4 pg (27.0-33.0); MCHC 31.5 % (32.0-36.0); MCV 96 fL (80-95); MPV 8.8 fL (8.0-11.0); Platelet Count 253 10^3/uL (130-400); RBC 2.47 10^6/uL (4.36-5.78); RDW 18.9 % (11.8-14.1); RDW-SD 67.3 fL; WBC 3.84 10^3/uL (4.4-10.8)
[2024-02-26 09:16] LABS: ALT 6 U/L (16-63); AST 39 U/L (15-37); Albumin 2.5 g/dL (3.4-5.0); Alkaline Phosphatase 62 U/L (46-116); Anion Gap 7.5 mmol/L (3-11); BUN 38 mg/dL (7-18); Bilirubin, Total 0.35 mg/dL (0.2-1.0); CO2 24.5 mmol/L (21.0-32.0); CREATININE 1.9 mg/dL (0.70-1.30); Calcium 8.9 mg/dL (8.5-10.1); Chloride 105 mmol/L (98-107); Estimated GFR 37.71 (mL/min/1.73m2); Glucose 133 mg/dL (74-106); Potassium 4.7 mmol/L (3.5-5.1); Sodium 137 mmol/L (136-145); Total Protein 6.6 g/dL (6.4-8.2)
[2024-02-26 10:55] VITALS: BP 110/73; PULSE 73; RESP 17; TEMP 37; O2SAT 100
[2024-02-26 11:10] VITALS: BP 118/76; PULSE 69; RESP 16; TEMP 36.8; O2SAT 100
[2024-02-26 11:40] VITALS: BP 110/72; PULSE 69; RESP 18; TEMP 37.1; O2SAT 100
[2024-02-26 12:40] VITALS: BP 120/73; PULSE 74; RESP 18; TEMP 37; O2SAT 100
[2024-02-26] MEDS: Normal Saline Flush 10 ML SYR IVP (13:49)
[2024-02-29 21:04] LABS: PSA, Ultrasensitive 598 ng/mL (<= 4.5)
[2024-03-02 16:07] LABS: Testosterone, Total <7.0 ng/dL (240-950)
== END 2024-03-05 23:59 | disposition home or self-care (01) ==
LOC: INF 10:00
PROVIDERS: Nurse Practitioner; PCP Nurse Practitioner Family; Visit Provider Internal Medicine
DX: C61 Malignant neoplasm of prostate (principal)
CPT/HCPCS: 36430; 36591; 80053; 84153; 84403; 85027; 86850; 86900; 86901; 86920; 85025; P9016

== ENCOUNTER 2024-03-12 02:13 | Outpatient (RCR) | payer MEDICARE, SELFPAY ==
[2024-03-06 00:21] VITALS: BP 112/68; PULSE 65; RESP 17; TEMP 36.2
[2024-03-12] MEDS: Normal Saline Flush 10 ML SYR IVP (09:51)
[2024-03-12 10:10] LABS: Abs Immature Grans 0.03 10^3/uL (0.0-0.06); Absolute Basophil Count 0.03 10^3/uL (0.0-0.2); Absolute Eosinophil Count 0.04 10^3/uL (0.0-0.7); Absolute Lymphocyte Count 0.43 10^3/uL (1.2-3.4); Absolute Monocyte Count 0.71 10^3/uL (0.1-0.8); Absolute Neutrophil Count 5.52 10^3/uL (1.2-6.7); Basophils % 0.4 %; Eosinophils % 0.6 %; HGB 9.6 g/dL (13.5-17.5); Immature Grans % 0.4 %; Lymphocytes % 6.4 %; MCH 29.9 pg (27.0-33.0); MCV 94 fL (80-95); MPV 9.4 fL (8.0-11.0); Monocytes % 10.5 %; Neutrophils % 81.7 %; Platelet Count 330 10^3/uL (130-400); RBC 3.21 10^6/uL (4.36-5.78); RDW 17.5 % (11.8-14.1); RDW-SD 60.2 fL; WBC 6.76 10^3/uL (4.4-10.8)
[2024-03-12 10:30] LABS: ALT < 6 U/L (16-63); AST 48 U/L (15-37); Albumin 2.5 g/dL (3.4-5.0); Alkaline Phosphatase 70 U/L (46-116); Anion Gap 9.7 mmol/L (3-11); BUN 34 mg/dL (7-18); Bilirubin, Total 0.54 mg/dL (0.2-1.0); CO2 24.3 mmol/L (21.0-32.0); Chloride 103 mmol/L (98-107); Estimated GFR 35.46 (mL/min/1.73m2); Glucose 101 mg/dL (74-106); Potassium 4.7 mmol/L (3.5-5.1); Sodium 137 mmol/L (136-145); Total Protein 6.7 g/dL (6.4-8.2)
[2024-03-14 11:07] LABS: PSA, Ultrasensitive 658 ng/mL (<= 4.5)
[2024-03-17 11:52] LABS: Testosterone, Total <7.0 ng/dL (240-950)
== END 2024-04-05 23:59 | disposition home or self-care (01) ==
LOC: INF 02:13
PROVIDERS: Nurse Practitioner; PCP Nurse Practitioner Family; Visit Provider Internal Medicine
DX: C61 Malignant neoplasm of prostate (principal)
CPT/HCPCS: 36591; 80053; 84153; 84403; 86850; 86900; 86901; 85025